=== PATIENT | male | born 1955 | race Caucasian/White ===

== ENCOUNTER 2022-12-13 18:25 | Outpatient (RCR) | payer MEDICARE, SELFPAY | END 2023-01-06 23:59 | disposition home or self-care (01) | LOC: MM 18:25 | PROVIDERS: PCP Internal Medicine; Visit Provider Internal Medicine | DX: Z51.81 Encounter for therapeutic drug level monitoring (principal); Z79.01 Long term (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 | CPT/HCPCS: 85610; G0463 ==

== ENCOUNTER 2022-12-27 07:42 | Day surgery (SDC) | payer MEDICARE, SELFPAY ==
[2022-12-27 08:08] LABS: INR 2.3; Prothrombin Time 23.3 sec (9.0-11.6)
--- NOTE | 2022-12-27 08:35 | W.PM.PROCNOT ---
Date of procedure: 12/27/22 Procedure: Bilateral Cervical 4,5 & 5,6 medial branch block Preop diagnosis includes pain secondary to cervical spondylosis, Postop diagnosis same Under fluoroscopic guidance Solution injected: 2milliliters Marcaine 0.25% Anesthesia :none Immediate complications none Time out process compliant After informed consent obtained from the patient placed in the Prone proposition . area was prepped and draped in a sterile fashion using betadine .25 gauge spinal needle inserted over each of the above mentioned target areas . [place] were directed towards the target under fluoroscopic guidance . after encountering each of the targets , no indication of intravascular intraneuronal or intrathecal needle tip placement. Then 0 .5 to 1 Milliliter was injected at each level. [place] removed postoperatively. patient transferred to recovery in stable condition to be discharged home after meeting criteria Surgeon: Benedict Marie
[2022-12-27 08:39] VITALS: BP 139/83; PULSE 67; RESP 16; TEMP 36.6
[2022-12-27 09:41] VITALS: RESP 20
[2022-12-27 09:42] VITALS: BP 152/82; PULSE 62; O2SAT 98
[2022-12-27] MEDS: BUPIVACAINE HCL 0.25% PF 25 MG/10 ML VIAL 8 ML INJ (09:44)
[2022-12-27 09:47] VITALS: BP 147/82; PULSE 60; O2SAT 99
== END 2022-12-27 09:55 | disposition home or self-care (01) ==
LOC: SURGOUT 07:43
PROVIDERS: PCP Internal Medicine; Visit Provider Anesthesiology Pain Medicine
DX: M47.812 Spondylosis without myelopathy or radiculopathy, cervical region (principal); I48.91 Unspecified atrial fibrillation
CPT/HCPCS: 36415; 64490; 64491; 85610; G0463

== ENCOUNTER 2023-01-12 09:32 | Outpatient (RCR) | payer MEDICARE, SELFPAY | END 2023-02-06 17:05 | disposition home or self-care (01) | LOC: MM 09:32 | PROVIDERS: PCP Internal Medicine; Visit Provider Internal Medicine | DX: Z51.81 Encounter for therapeutic drug level monitoring (principal); Z79.01 Long term (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 | CPT/HCPCS: 85610; G0463 ==

== ENCOUNTER 2023-01-19 08:46 | Outpatient (OUT) | payer MEDICARE, SELFPAY ==
--- NOTE | 2023-01-19 09:09 | PM.CN ---
Consult Note: HPI Data of Consult Patient: known to practice within the last 3 years Consult date: 01/19/23 Requesting Physician: JEET HERNÁNDEZ NP Primary Care Provider: Shaikh Cristopher MD Consult Narrative Narrative: Here for f/u of first cervical MBB done 12/09/22. He had 80% relief of pain with increased fx for several hours after procedure. He would like to proceed with second MBB same region. No new sensorimotor or bowel or bladder issues. No adverse med SE. Pain in n yr with all ROM. No radicular sx cc:: CC: JEET HERNÁNDEZ NP Review of Systems ROS Status of ROS 10 or more systems reviewed and unremarkable except as noted in history and below Musculoskeletal Reports: neck pain PFSH PFSH Medical History Surgical History Meds Home Medications and Allergies Home Medications Medication Instructions Recorded Confirmed Type atorvastatin 20 mg tablet 20 mg PO QDAY 12/22/22 12/27/22 History baclofen 10 mg tablet 10 mg PO .hs 12/22/22 12/27/22 History calcium carbonate 600 mg calcium 300 mg PO DAILY 12/22/22 12/27/22 History (1,500 mg) tablet flecainide 100 mg tablet 100 mg PO Q12H 12/22/22 12/27/22 History gabapentin 100 mg capsule 200 mg PO .hs 12/22/22 12/27/22 History hydrochlorothiazide 25 mg tablet 25 mg PO QDAY 12/22/22 12/27/22 History lisinopril 40 mg tablet 40 mg PO QDAY 12/22/22 12/27/22 History loratadine 10 mg tablet 10 mg PO DAILY 12/22/22 12/27/22 History metoprolol succinate 100 mg 100 mg PO QDAY 12/22/22 12/27/22 History tablet,extended release 24 hr multivitamin 1 tab PO DAILY 12/22/22 12/27/22 History olopatadine 0.1 % eye drops drp ophthalmic (eye) BID 12/22/22 History potassium chloride 20 mEq 20 meq PO BID 12/22/22 12/27/22 History tablet,extended release(part/cryst) (Klor-Con M) vitamin B complex (B 1 tab PO DAILY 12/22/22 12/27/22 History Complex-Vitamin B12 tablet) warfarin 5 mg tablet 5 mg PO QDAY 12/22/22 12/27/22 History Allergies Allergy/AdvReac Type Severity Reaction Status Date / Time No Known Drug Allergies Allergy Verified 12/27/22 08:33 Exam Constitutional Documenting provider has reviewed patient's vital signs: yes Common normals: no apparent distress, oriented x3, healthy appearing, alert and well nourished General appearance: cooperative, comfortable and well developed Orientation/consciousness: Yes awake, Yes oriented to person, Yes oriented to place and Yes oriented to time HENMT Common normals: normocephalic and moist oral mucous membranes Neck & C-Spine General: normal visual inspection, trachea midline and tenderness Cervical spine: pain with cervical ROM, paracervical muscle tenderness, paracervical muscle spasm and trapezius muscle tenderness Other: bilat UE muscle strength 5/5. No arm drift. no radiculopathy Respiratory Common normals: normal respiratory effort, no retractions and no use of accessory muscles Effort & inspection: able to speak in complete sentences and symmetric chest movement Extremity Common normals: normal to inspection, full ROM, normal capillary refill and no pedal edema Assessment and Plan Assessment and Plan (1) Cervical spondylosis: (2) Muscle spasm: Plan Schedule for second cervical MBB bilat C4/5, C5/6 under fluoroscopy
== END 2023-01-19 08:47 | disposition home or self-care (01) ==
LOC: PM 08:47
PROVIDERS: PCP Internal Medicine; Visit Provider Nurse Practitioner
DX: M47.812 Spondylosis without myelopathy or radiculopathy, cervical region (principal); M62.838 Other muscle spasm
CPT/HCPCS: G0463

== ENCOUNTER 2023-02-16 06:32 | Day surgery (SDC) | payer MEDICARE, SELFPAY ==
[2023-02-16 06:53] LABS: INR 1.72; Prothrombin Time 17.7 sec (9.0-11.6)
[2023-02-16 06:57] VITALS: BP 125/78; PULSE 72; RESP 16; TEMP 36.9; O2SAT 96
[2023-02-16 07:26] VITALS: BP 133/76; PULSE 69; RESP 20; O2SAT 96
[2023-02-16] MEDS: BUPIVACAINE HCL 0.25% PF 25 MG/10 ML VIAL 8 ML INJ (07:27)
[2023-02-16 07:30] VITALS: BP 139/71; PULSE 70; O2SAT 97
--- NOTE | 2023-02-16 11:03 | P.ON_ITS ---
Date of procedure: 02/16/23 Pre-op diagnosis: cervical spondylosis Post-op diagnosis: same as pre-op Procedure: Bilateral cervical 4/5 and 5/6 medial branch block Under fluoroscopic guidance Solution injected: 2millilitersMarcaine 0.25% Anesthesia :none Immediate complications none Time out process compliant After informed consent obtained from the patient placed in the Prone proposition . area was prepped and draped in a sterile fashion using Cloraprep .25 gauge spinal needle inserted over each of the above mentioned target areas . [place] were directed towards the target under fluoroscopic guidance . after encountering each of the targets , no indication of intravascular intraneuronal or intrathecal needle tip placement. Then 0 .5 to 1 Milliliter was injected at each level. [place] removed postoperatively. patient transferred to recovery in stable condition to be discharged home after meeting criteria Anesthesia: Local Surgeon: Benedict Marie Condition: stable
== END 2023-02-16 07:36 | disposition home or self-care (01) ==
PROVIDERS: PCP Family Medicine; Visit Provider Anesthesiology Pain Medicine
DX: M47.812 Spondylosis without myelopathy or radiculopathy, cervical region (principal); I48.91 Unspecified atrial fibrillation
CPT/HCPCS: 36415; 64490; 64491; 85610

== ENCOUNTER 2023-03-02 08:03 | Outpatient (OUT) | payer MEDICARE, SELFPAY ==
--- NOTE | 2023-03-02 08:05 | PM.CN ---
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 Today rating pain 6/10. Patient received 100% pain relief, improvement in ROM, improvement in functional ability immediately after procedure and for hours following. Patient would like to proceed with thermal RFA. cc:: CC: JEET HERNÁNDEZ NP [facility] Medical History Surgical History Meds Home Medications and Allergies Home Medications Medication Instructions Recorded Confirmed Type atorvastatin 20 mg tablet 20 mg PO QDAY 12/22/22 02/16/23 History baclofen 10 mg tablet 10 mg PO .hs 12/22/22 02/16/23 History calcium carbonate 600 mg calcium 300 mg PO DAILY 12/22/22 02/16/23 History (1,500 mg) tablet flecainide 100 mg tablet 100 mg PO Q12H 12/22/22 02/16/23 History gabapentin 100 mg capsule 200 mg PO .hs 12/22/22 02/16/23 History hydrochlorothiazide 25 mg tablet 25 mg PO QDAY 12/22/22 02/16/23 History lisinopril 40 mg tablet 40 mg PO QDAY 12/22/22 02/16/23 History loratadine 10 mg tablet 10 mg PO DAILY 12/22/22 02/16/23 History metoprolol succinate 100 mg 100 mg PO QDAY 12/22/22 02/16/23 History tablet,extended release 24 hr multivitamin 1 tab PO DAILY 12/22/22 02/16/23 History olopatadine 0.1 % eye drops drp ophthalmic (eye) BID 12/22/22 History potassium chloride 20 mEq 20 meq PO BID 12/22/22 02/16/23 History tablet,extended release(part/cryst) (Klor-Con M) vitamin B complex (B 1 tab PO DAILY 12/22/22 02/16/23 History Complex-Vitamin B12 tablet) warfarin 5 mg tablet 5 mg PO QDAY 12/22/22 02/16/23 History baclofen 10 mg tablet 10 mg PO DAILY PRN muscle spasm 02/10/23 02/16/23 Rx #90 tabs gabapentin 300 mg capsule 300 mg PO BID #180 caps 02/10/23 02/16/23 Rx Allergies Allergy/AdvReac Type Severity Reaction Status Date / Time No Known Drug Allergies Allergy Verified 12/27/22 08:33 Exam Constitutional Documenting provider has reviewed patient's vital signs: yes Common normals: no apparent distress, oriented x3, healthy appearing, alert and well nourished General appearance: cooperative HENMT Common normals: normocephalic, hearing grossly normal bilaterally and moist oral mucous membranes Head and scalp: normocephalic Eye Common normals: PERRL Pupil: PERRL Neck & C-Spine Common normals: full ROM General: normal visual inspection Cervical spine: cervical ROM abnormal, pain with cervical ROM and paracervical muscle tenderness Chest Common normals: inspection of chest normal Respiratory Common normals: normal respiratory effort, no retractions and no use of accessory muscles Back & Pelvis Lumbar spine/lower back: ROM limited and pain with ROM Extremity Common normals: normal to inspection and full ROM Neuro Common normals: oriented x3, CN's II-XII intact bilaterally, moves all extremities, no focal motor deficits, no sensory deficits noted and deep tendon reflexes 2+ bilaterally Sensorium/orientation: alert Motor exam: strength 5/5 throughout and no movement abnormalities noted Psych Common normals: mental status grossly normal, thought process normal, cooperative, affect normal, speech normal and activity/motor behavior normal Speech: normal speech Thought process: normal thought process Results Additional Findings Additional findings: I have checked an OARRS report on this patient today and there are no aberrancies noted in the prescribing history.?? A drug screen was completed and reviewed within the last year, and if there has not been a drug screen completed we ordered one today to monitor higher risk, state monitored pain medication use. As part of providing excellent, safe, comprehensive care, the following was completed at our patient's visit: 1. A medication reconciliation and review to ensure accurate knowledge of current/active medications, including asking our patients to inform us about any [id number]-[id number] medications or herbal remedies/nutritional supplements/alternative remedies. 2. A review to specifically ensure our patients have had annual screening for: elevated body mass index (BMI), tobacco use, screening for depression, and screening for unhealthy alcohol use. When screening is concerning, patients are provided with education and the specific recommendation to discuss the concerning health issue and treatment options with their primary care provider. Assessment and Plan Assessment and Plan (1) Cervical spondylosis: Assessment and Plan: The patient has had over 3 months of moderate to severe neck pain with functional impairment and inadequate response to conservative care including NSAIDS (unless there are contraindication such as concurrent blood thinners), multiple oral or topical pain medications, and home exercise program/physical therapy.?Patient has completed >6 weeks of guided home exercise program and/or formal physical therapy program without relief of their symptoms.?We discussed the risks and benefits of the procedure with the patient. The procedure will be completed with fluoroscopic guidance.? (2) Muscle spasm: (3) Hx of alf use of blood thinners: Assessment and Plan: will plan on hold coumadin with approval from cardiology (4) Neuropathy: Assessment and Plan: The patient was advised that U.S. Food and Drug Administration (FDA) is warning that respiratory depression may occur in patients using gabapentin (Neurontin, Gralise, Horizant) or pregabalin (Lyrica, Lyrica CR) who have respiratory risk factors. These include the use of opioid pain medicines and other drugs that depress the central nervous system, and conditions such as chronic obstructive pulmonary disease (COPD) that reduce lung function. The elderly are also at higher risk.? patient has been on gabapentin 300mg BID, feels his neuropathy is still persistent increase to 600mg HS, continue 300mg AM (5) Lumbar spondylosis: Assessment and Plan: consider L4/5 L5/S1 facet blocks RFA in future (6) Body mass index (BMI) of 40.1 to 44.9 in adult: Assessment and Plan: The patient was counseled that proper dietary changes and consistent participation in a home exercise plan can lead to weight loss. Weight loss can help to improve functionality in patients with chronic pain.? Plan Left then right C4/5 C5/6 thermal RFA under fluoroscopy with IV sedation f/u after procedure
== END 2023-03-02 08:04 ==
PROVIDERS: PCP Family Medicine; Visit Provider Nurse Practitioner
DX: M47.812 Spondylosis without myelopathy or radiculopathy, cervical region (principal); M62.838 Other muscle spasm; G62.9 Polyneuropathy, unspecified; Z79.01 Long term (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
CPT/HCPCS: G0463

== ENCOUNTER 2023-03-07 09:42 | Outpatient (RCR) | payer MEDICARE, SELFPAY | END 2023-03-09 17:39 | disposition home or self-care (01) | LOC: MM 09:42 | PROVIDERS: PCP Internal Medicine; Visit Provider Internal Medicine | DX: Z51.81 Encounter for therapeutic drug level monitoring (principal); Z79.01 Long term (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 | CPT/HCPCS: 85610; G0463 ==

== ENCOUNTER 2023-03-10 10:31 | Outpatient (RCR) | payer MEDICARE, SELFPAY | END 2023-04-07 16:58 | disposition home or self-care (01) | LOC: MM 10:31 | PROVIDERS: PCP Family Medicine; Visit Provider Internal Medicine | DX: Z51.81 Encounter for therapeutic drug level monitoring (principal); Z79.01 Long term (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 | CPT/HCPCS: 85610; G0463 ==

== ENCOUNTER 2023-03-21 07:32 | Outpatient (OUT) | payer MEDICARE, SELFPAY ==
--- NOTE | 2023-03-21 | ECG_ITS ---
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
== END 2023-03-21 07:33 | disposition home or self-care (01) ==
LOC: CARD 07:32
PROVIDERS: PCP Family Medicine; Visit Provider Anesthesiology
DX: Z01.810 Encounter for preprocedural cardiovascular examination (principal); I10 Essential (primary) hypertension
CPT/HCPCS: 93005

== ENCOUNTER 2023-03-28 07:49 | Day surgery (SDC) | payer MEDICARE, SELFPAY ==
[2023-03-28 08:15] LABS: INR 1.09; Prothrombin Time 11.5 sec (9.0-11.6)
[2023-03-28 08:18] VITALS: BP 124/75; PULSE 71; RESP 16; TEMP 36.9; O2SAT 97
[2023-03-28] MEDS: 0.9 % SODIUM CHLORIDE 500 ML 50 ML IV (08:34)
[2023-03-28] MEDS: BUPIVACAINE HCL 0.25% PF 25 MG/10 ML VIAL 4 ML INJ (09:21)
[2023-03-28] MEDS: METHYLPREDNISOLONE ACETATE 40 MG/ML VIAL INJ (09:21)
[2023-03-28] MEDS: LIDOCAINE HCL 2% 400 MG/20 ML MDV 8 ML INJ (09:21)
[2023-03-28 09:37] VITALS: BP 114/59; PULSE 61; RESP 16; TEMP 36.7; O2SAT 96
[2023-03-28 09:38] VITALS: BP 113/58; PULSE 60; RESP 16; TEMP 36.7; O2SAT 97
--- NOTE | 2023-03-28 10:04 | W.PM.PROCNOT ---
Date of procedure: 03/28/23 Pre-op diagnosis: Cervical Spondylosis Post-op diagnosis: same as pre-op Procedure: Left Cervical 4/5, 5/6 Radiofrequency ablation Under fluoroscopic guidance Rhizotomy was created using radio frequency ablation at 80?C for 90 seconds 1 to 2 lesions created at each site. Post lesioning injection of 2 mL each of 0.25% Marcaine and 2% lidocaine with Depo-Medrol 40mg. 0.5 to 1 mL injected at each site IV in place yes If Intravenous fluids: NS at KVO Anesthesia local 2% lidocaine for Anesthesia Other: MAC Timeout process compliant After informed consent obtained.Patient brought to the procedure room placed in the prone position skin overlying the area was prepped and draped in a sterile fashion using betadine. 25 gauge needle was used to create a skin wheal over each of the targeted areas utilizing 2% lidocaine. A rhizotomy needle with a 10 mm active tip was inserted over each of the anesthetized areas and directed towards each of the medial branches accomplished under fluoroscopic guidance. after encountering the same we had positive sensory stimulation, negative motor stimulation was noted. lesions were then created. Post lesioning, steroid solution was injected needles removed. Patient was transferred to recovery room in stable condition to be discharged home after meeting criteria. Anesthesia: MAC Surgeon: Benedict Marie Condition: stable
== END 2023-03-28 10:02 | disposition home or self-care (01) ==
PROVIDERS: PCP Family Medicine; Visit Provider Anesthesiology Pain Medicine
DX: M47.812 Spondylosis without myelopathy or radiculopathy, cervical region (principal); I48.91 Unspecified atrial fibrillation
CPT/HCPCS: 36415; 64633; 64634; 85610; J1030; J2704

== ENCOUNTER 2023-04-10 02:50 | Outpatient (RCR) | payer MEDICARE, SELFPAY | END 2023-05-09 17:44 | disposition home or self-care (01) | LOC: MM 02:50 | PROVIDERS: PCP Family Medicine; Visit Provider Internal Medicine | DX: Z51.81 Encounter for therapeutic drug level monitoring (principal); Z79.01 Long term (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 | CPT/HCPCS: 85610; G0463 ==

== ENCOUNTER 2023-04-25 06:41 | Day surgery (SDC) | payer MEDICARE, SELFPAY ==
[2023-04-25 07:04] VITALS: BP 118/78; PULSE 64; RESP 16; TEMP 36.8; O2SAT 97
[2023-04-25] MEDS: 0.9 % SODIUM CHLORIDE 500 ML IV ×2 (07:18→08:45)
[2023-04-25 07:51] LABS: INR 1.15; Prothrombin Time 12.1 sec (9.0-11.6)
[2023-04-25] MEDS: BUPIVACAINE HCL 0.25% PF 25 MG/10 ML VIAL 4 ML INJ (08:45)
[2023-04-25] MEDS: METHYLPREDNISOLONE ACETATE 40 MG/ML VIAL INJ (08:47)
[2023-04-25] MEDS: LIDOCAINE HCL 2% 400 MG/20 ML MDV 10 ML INJ (08:47)
[2023-04-25 09:01] VITALS: BP 132/87; PULSE 55; RESP 16; TEMP 37.3; O2SAT 97
[2023-04-25 09:07] VITALS: BP 132/82; PULSE 60; RESP 16; TEMP 37.3; O2SAT 97
--- NOTE | 2023-04-25 09:15 | W.PM.PROCNOT ---
Date of procedure: 04/25/23 Pre-op diagnosis: CERVICAL SPONDYLOSIS Post-op diagnosis: same as pre-op Procedure: Right Cervical 4/5, 5/6 Radiofrequency ablation Under fluoroscopic guidance Rhizotomy was created using radio frequency ablation at 80?C for 90 seconds 1 to 2 lesions created at each site. Post lesioning injection of 2 mL each of 0.25% Marcaine and 2% lidocaine with Depo-Medrol 40mg. 0.5 to 1 mL injected at each site IV in place yes If Intravenous fluids: NS at KVO Anesthesia local 2% lidocaine for Anesthesia Other: MAC Timeout process compliant After informed consent obtained.Patient brought to the procedure room placed in the prone position skin overlying the area was prepped and draped in a sterile fashion using betadine. 25 gauge needle was used to create a skin wheal over each of the targeted areas utilizing 2% lidocaine. A rhizotomy needle with a 10 mm active tip was inserted over each of the anesthetized areas and directed towards each of the medial branches accomplished under fluoroscopic guidance. after encountering the same we had positive sensory stimulation, negative motor stimulation was noted. lesions were then created. Post lesioning, steroid solution was injected needles removed. Patient was transferred to recovery room in stable condition to be discharged home after meeting criteria. Anesthesia: MAC Surgeon: Benedict Marie Condition: stable
== END 2023-04-25 09:21 | disposition home or self-care (01) ==
PROVIDERS: PCP Family Medicine; Visit Provider Anesthesiology Pain Medicine
DX: M47.812 Spondylosis without myelopathy or radiculopathy, cervical region (principal); Z79.01 Long term (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
CPT/HCPCS: 36415; 64633; 64634; 85610; J1030; J2704

== ENCOUNTER 2023-05-10 00:44 | Outpatient (RCR) | payer MEDICARE, SELFPAY | END 2023-06-08 16:51 | disposition home or self-care (01) | LOC: MM 00:44 | PROVIDERS: PCP Family Medicine; Visit Provider Internal Medicine | DX: Z51.81 Encounter for therapeutic drug level monitoring (principal); Z79.01 Long term (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 | CPT/HCPCS: 85610; G0463 ==

== ENCOUNTER 2023-05-24 07:58 | Outpatient (OUT) | payer MEDICARE, SELFPAY ==
--- NOTE | 2023-05-24 08:22 | PM.CN ---
Consult Note: HPI Data of Consult Patient: known to practice within the last 3 years Requesting Physician: Trista Lyman NP Primary Care Provider: Rocio Bagley MD Consult Narrative Reason for consult: f/u Narrative: Evangelist Ybarra presents for evaluation and management of chronic neck pain. Recently underwent left and right C4-5 C5-6 thermal RFA with 75% ongoing pain relief, does feel a numbness on the skin over the RFA sites which is decreasing in size per pt. Today rating pain 2/10. Patient denies new numbness, tingling, weakness cc:: CC: Trista Lyman NP Review of Systems ROS Status of ROS 10 or more systems reviewed and unremarkable except as noted in history and below Musculoskeletal Reports: neck pain PFSH PFSH Medical History Atrial fibrillation ?I48.91 - Unspecified atrial fibrillation (ICD-10) Colon cancer ?C18.9 - Malignant neoplasm of colon, unspecified (ICD-10) Enlarged prostate ?N40.0 - Benign prostatic hyperplasia without lower urinary tract symptoms (ICD-10) High cholesterol ?E78.00 - Pure hypercholesterolemia, unspecified (ICD-10) Hypertension ?I10 - Essential (primary) hypertension (ICD-10) Kidney stone ?N20.0 - Calculus of kidney (ICD-10) Low back pain ?M54.50 - Low back pain, unspecified (ICD-10) Obesity ?E66.9 - Obesity, unspecified (ICD-10) Osteoarthritis ?M19.90 - Unspecified osteoarthritis, unspecified site (ICD-10) Pulmonary embolism ?I26.99 - Other pulmonary embolism without acute cor pulmonale (ICD-10) Sleep apnea ?G47.30 - Sleep apnea, unspecified (ICD-10) Surgical History History of colon resection ?Z90.49 - Acquired absence of other specified parts of digestive tract (ICD-10) S/P TURP ?Z90.79 - Acquired absence of other genital organ(s) (ICD-10) Meds Home Medications and Allergies Home Medications Medication Instructions Recorded Confirmed Type atorvastatin 20 mg tablet 20 mg PO QDAY 12/22/22 04/25/23 History baclofen 10 mg tablet 10 mg PO .hs 12/22/22 04/25/23 History calcium carbonate 600 mg calcium 300 mg PO DAILY 12/22/22 04/25/23 History (1,500 mg) tablet flecainide 100 mg tablet 100 mg PO Q12H 12/22/22 04/25/23 History gabapentin 100 mg capsule 200 mg PO .hs 12/22/22 04/25/23 History hydrochlorothiazide 25 mg tablet 25 mg PO QDAY 12/22/22 04/25/23 History lisinopril 40 mg tablet 40 mg PO QDAY 12/22/22 04/25/23 History loratadine 10 mg tablet 10 mg PO DAILY 12/22/22 04/25/23 History metoprolol succinate 100 mg 100 mg PO QDAY 12/22/22 04/25/23 History tablet,extended release 24 hr multivitamin 1 tab PO DAILY 12/22/22 04/25/23 History olopatadine 0.1 % eye drops drp ophthalmic (eye) BID 12/22/22 History potassium chloride 20 mEq 20 meq PO BID 12/22/22 04/25/23 History tablet,extended release(part/cryst) (Klor-Con M) vitamin B complex (B 1 tab PO DAILY 12/22/22 04/25/23 History Complex-Vitamin B12 tablet) warfarin 5 mg tablet 5 mg PO QDAY 12/22/22 04/25/23 History baclofen 10 mg tablet 10 mg PO DAILY PRN muscle spasm 02/10/23 04/25/23 Rx #90 tabs gabapentin 300 mg capsule 300 mg PO BID #180 caps 02/10/23 04/25/23 Rx baclofen 10 mg tablet 10 mg PO .HS #90 tabs 03/03/23 04/25/23 Rx gabapentin 300 mg capsule 300 mg PO BID #270 caps 03/08/23 04/25/23 Rx baclofen 10 mg tablet 10 mg PO .hs #90 tabs 04/28/23 Rx Allergies Allergy/AdvReac Type Severity Reaction Status Date / Time No Known Drug Allergies Allergy Verified 04/25/23 06:59 Exam Constitutional Documenting provider has reviewed patient's vital signs: yes Common normals: no apparent distress, oriented x3, healthy appearing, alert and well nourished General appearance: cooperative HENMT Common normals: normocephalic, hearing grossly normal bilaterally and moist oral mucous membranes Head and scalp: normocephalic Eye Common normals: PERRL Pupil: PERRL Neck & C-Spine Common normals: full ROM General: normal visual inspection Cervical spine: cervical ROM abnormal and paracervical muscle tenderness Chest Common normals: inspection of chest normal Respiratory Common normals: normal respiratory effort, no retractions and no use of accessory muscles Back & Pelvis Lumbar spine/lower back: ROM limited and pain with ROM Extremity Common normals: normal to inspection and full ROM Neuro Common normals: oriented x3, CN's II-XII intact bilaterally, moves all extremities, no focal motor deficits, no sensory deficits noted and deep tendon reflexes 2+ bilaterally Sensorium/orientation: alert Motor exam: strength 5/5 throughout and no movement abnormalities noted Psych Common normals: mental status grossly normal, thought process normal, cooperative, affect normal, speech normal and activity/motor behavior normal Speech: normal speech Thought process: normal thought process Results Additional Findings Additional findings: I have checked an OARRS report on this patient today and there are no aberrancies noted in the prescribing history.?? A drug screen was completed and reviewed within the last year, and if there has not been a drug screen completed we ordered one today to monitor higher risk, state monitored pain medication use. As part of providing excellent, safe, comprehensive care, the following was completed at our patient's visit: 1. A medication reconciliation and review to ensure accurate knowledge of current/active medications, including asking our patients to inform us about any [id number] medications or herbal remedies/nutritional supplements/alternative remedies. 2. A review to specifically ensure our patients have had annual screening for: elevated body mass index (BMI), tobacco use, screening for depression, and screening for unhealthy alcohol use. When screening is concerning, patients are provided with education and the specific recommendation to discuss the concerning health issue and treatment options with their primary care provider. 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
== END 2023-05-24 07:59 | disposition home or self-care (01) ==
LOC: PM 07:58
PROVIDERS: PCP Family Medicine; Visit Provider Nurse Practitioner
DX: M47.812 Spondylosis without myelopathy or radiculopathy, cervical region (principal); M62.838 Other muscle spasm; Z79.899 Other long term (current) drug therapy
CPT/HCPCS: G0463

== ENCOUNTER 2023-06-09 09:32 | Outpatient (RCR) | payer MEDICARE, SELFPAY | END 2023-07-07 15:19 | disposition home or self-care (01) | LOC: MM 09:32 | PROVIDERS: PCP Family Medicine; Visit Provider Internal Medicine | DX: Z51.81 Encounter for therapeutic drug level monitoring (principal); Z79.01 Long term (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 | CPT/HCPCS: 85610; G0463 ==

== ENCOUNTER 2023-06-22 07:49 | Outpatient (OUT) | payer MEDICARE, SELFPAY ==
--- NOTE | 2023-06-22 08:18 | P.CN_ITS ---
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 Patient has noticed more improvement after cervical RFA. Patient has been getting massages and finding benefit with that. cc:: CC: Trista Lyman NP Review of Systems ROS Status of ROS 10 or more systems reviewed and unremark able except as noted in history and below PFSH PFS Medical History Atrial fibrillation ?I48.91 - Unspecified atrial fibrillation (ICD-10) Low back pain ?M54.50 - Low back pain, unspecified (ICD-10) Osteoarthritis ?M19.90 - Unspecified osteoarthritis, unspecified site (ICD-10) Colon cancer ?C18.9 - Malignant neoplasm of colon, unspecified (ICD-10) Obesity ?E66.9 - Obesity, unspecified (ICD-10) Kidney stone ?N20.0 - Calculus of kidney (ICD-10) Enlarged prostate ?N40.0 - Benign prostatic hyperplasia without lower urinary tract symptoms (ICD-10) Pulmonary embolism ?I26.99 - Other pulmonary embolism without acute cor pulmonale (ICD-10) Sleep apnea ?G47.30 - Sleep apnea, unspecified (ICD-10) High cholesterol ?E78.00 - Pure hypercholesterolemia, unspecified (ICD-10) Hypertension ?I10 - Essential (primary) hypertension (ICD-10) Surgical History S/P TURP ?Z90.79 - Acquired absence of other genital organ(s) (ICD-10) History of colon resection ?Z90.49 - Acquired absence of other specified parts of digestive tract (ICD- 10) Meds Home Medications and Allergies Home Medications Medication Instructions Recorded Confirmed Type atorvastatin 20 mg tablet 20 mg PO QDAY 12/22/22 04/25/23 History baclofen 10 mg tablet 10 mg PO .hs 12/22/22 04/25/23 History calcium carbonate 600 mg calcium 300 mg PO DAILY 12/22/22 04/25/23 History (1,500 mg) tablet flecainide 100 mg tablet 100 mg PO Q12H 12/22/22 04/25/23 History gabapentin 100 mg capsule 200 mg PO .hs 12/22/22 04/25/23 History hydrochlorothiazide 25 mg tablet 25 mg PO QDAY 12/22/22 04/25/23 History lisinopril 40 mg tablet 40 mg PO QDAY 12/22/22 04/25/23 History loratadine 10 mg tablet 10 mg PO DAILY 12/22/22 04/25/23 History metoprolol succinate 100 mg 100 mg PO QDAY 12/22/22 04/25/23 History tablet,extended release 24 hr multivitamin 1 tab PO DAILY 12/22/22 04/25/23 History olopatadine 0.1 % eye drops drp ophthalmic (eye) BID 12/22/22 History potassium chloride 20 mEq 20 meq PO BID 12/22/22 04/25/23 History tablet,extended release(part/cryst) (Klor-Con M) vitamin B complex (B 1 tab PO DAILY 12/22/22 04/25/23 History Complex-Vitamin B12 tablet) warfarin 5 mg tablet 5 mg PO QDAY 12/22/22 04/25/23 History baclofen 10 mg tablet 10 mg PO DAILY PRN muscle spasm 02/10/23 04/25/23 Rx #90 tabs gabapentin 300 mg capsule 300 mg PO BID #180 caps 02/10/23 04/25/23 Rx baclofen 10 mg tablet 10 mg PO .HS #90 tabs 03/03/23 04/25/23 Rx gabapentin 300 mg capsule 300 mg PO BID #270 caps 03/08/23 04/25/23 Rx baclofen 10 mg tablet 10 mg PO .hs #90 tabs 04/28/23 Rx gabapentin 300 mg capsule 300 mg PO TID #360 caps 06/15/23 Rx gabapentin 300 mg capsule 300 mg PO TID #360 caps 06/19/23 Rx Allergies Allergy/AdvReac Type Severity Reaction Status Date / Time No Known Drug Allergies Allergy Verified 04/25/23 06:59 Exam Constitutional Documenting provider has reviewed patient's vital signs: yes Common normals: no apparent distress, oriented x3, healthy appearing, alert and well nourished General appearance: cooperative HENCA Common normals: normocephalic, hearing grossly normal bilaterally and moist oral mucous membranes Head and scalp: normocephalic Eye Common normals: PERRL Pupil: PERRL Neck & C-Spine Common normals: full ROM General: normal visual inspection Cervical spine: cervical ROM normal Chest Common normals: inspection of chest normal Respiratory Common normals: normal respiratory effort, no retractions and no use of accessory muscles Neuro Common normals: oriented x3, CN's II-XII intact bilaterally, moves all extremities, no focal motor deficits, no sensory deficits noted and deep tendon reflexes 2+ bilaterally Sensorium/orientation: alert Motor exam: strength 5/5 throughout and no movement abnormalities noted Psych Common normals: mental status grossly normal, thought process normal, cooperative, affect normal, speech normal and activity/motor behavior normal Speech: normal speech Thought process: normal thought process Results Additional Findings Additional findings: I have checked an [facility] report on this patient today and there are no aberrancies noted in the prescribing history.?? A drug screen was completed and reviewed within the last year, and if there has not been a drug screen completed we ordered one today to monitor higher risk, state monitored pain medication use. As part of providing excellent, safe, comprehensive care, the following was completed at our patient's visit: 1. A medication reconciliation and review to ensure accurate knowledge of current/active medications, including asking our patients to inform us about any [id number] medications or herbal remedies/nutritional supplements/alternative remedies. 2. A review to specifically ensure our patients have had annual screening for: elevated body mass index (BMI), tobacco use, screening for depression, and screening for unhealthy alcohol use. When screening is concerning, patients are provided with education and the specific recommendation to discuss the concerning health issue and treatment options with their primary care provider. 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 Food and Drug Administration (FDA) is warning that respiratory depression may occur in patients using gabapentin (Neurontin, Gralise, Horizant) or pregabalin (Lyrica, Lyrica CR) who have respiratory risk factors. These include the use of opioid pain medicines and other drugs that depress the central nervous system, and conditions such as chronic obstructive pulmonary disease (COPD) that reduce lung function. The elderly are also at higher risk.? Plan continue current medication regimen, tolerating well without side effects f/u 3 months for medication management
== END 2023-06-22 07:50 | disposition home or self-care (01) ==
PROVIDERS: PCP Family Medicine; Visit Provider Nurse Practitioner
DX: M47.812 Spondylosis without myelopathy or radiculopathy, cervical region (principal); M62.838 Other muscle spasm; Z79.01 Long term (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; G62.9 Polyneuropathy, unspecified
CPT/HCPCS: G0463

== ENCOUNTER 2023-07-10 02:00 | Outpatient (RCR) | payer MEDICARE, SELFPAY | END 2023-08-09 17:19 | disposition home or self-care (01) | LOC: MM 02:00 | PROVIDERS: PCP Family Medicine; Visit Provider Internal Medicine | DX: Z51.81 Encounter for therapeutic drug level monitoring (principal); Z79.01 Long term (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 | CPT/HCPCS: 85610; G0463 ==

== ENCOUNTER 2023-08-10 01:58 | Outpatient (RCR) | payer MEDICARE, SELFPAY | END 2023-09-07 17:31 | disposition home or self-care (01) | LOC: MM 01:58 | PROVIDERS: PCP Family Medicine; Visit Provider Internal Medicine | DX: Z51.81 Encounter for therapeutic drug level monitoring (principal); Z79.01 Long term (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 | CPT/HCPCS: 85610; G0463 ==

== ENCOUNTER 2023-09-08 03:37 | Outpatient (RCR) | payer MEDICARE, SELFPAY | END 2023-10-06 14:14 | disposition home or self-care (01) | LOC: MM 03:37 | PROVIDERS: PCP Family Medicine; Visit Provider Internal Medicine | DX: Z51.81 Encounter for therapeutic drug level monitoring (principal); Z79.01 Long term (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 | CPT/HCPCS: 85610; G0463 ==

== ENCOUNTER 2023-09-28 07:54 | Outpatient (OUT) | payer MEDICARE, SELFPAY ==
--- OUTSIDE RECORDS SUMMARY | 2023-09-28 07:57 | XMS_ITS | CCD ---
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 Coach Name Role Phone PHYSICIAN, DEFAULT Unavailable Unavailable PHYSICIAN, DEFAULT Unavailable Unavailable DONALD LIZARRAGA Unavailable Unavailable PHYSICIAN, DEFAULT Unavailable Unavailable PHYSICIAN, DEFAULT Unavailable Unavailable DONALD LIZARRAGA Unavailable Unavailable Devin Greer Unavailable Unavailable Donald Lizarraga Unavailable Unavaila ble DONALD LIZARRAGA Primary Care Physician [phone] Karbetsy DO, Emperatriz Unavailable Karim DO, Emperatriz Unavailable Donald Lizarraga Unavailable ALLEN Montano, DR JADEN Chahal Consulting Unavailable VILLA ., DR JADEN Chahal Admitting Unavailable VILLA ., DR JADEN Chahal Attending Unavailable ELHAM, DR DONALD Ruano Primary Care Unavailable CUEVAS .CHARAN Consulting Unavailable FAWWAD, WOMACK H Admitting Unavailable FAWWAD, WOMACK H Attending Unavailable ELHAM, DR DONALD Ruano Primary Care Unavailable ELHAM, DR DONALD Ruano Primary Care Unavailable FAWWAD, WOMACK H Attending Unavailable FAWWAD, WOMACK H Admitting Unavailable ELHAM, DR DONALD Ruano Primary Care Unavailable CUEVAS .CHARAN Consulting Unavailable ALLEN ., DR JADEN Chahal Admitting Unavailable VILLA ., DR JADEN Chahal Attending Unavailable LAKSHMIPATHY ., NARENDRANATH Admitting Rochelle vailable ELHAM, DR DONALD Ruano Primary Care Unavailable JEET KLEIN Consulting Unavailable LAKSHMIPATHY ., NARENDRANATH Attending Rochelle vailable ELHAM, DR DONALD Ruano Primary Care Unavailable FAWWAD, WOMACK H Attending Unavailable FAWWAD, WOMACK H Admitting Unavailable ELHAM, DR DONALD Ruano Primary Care Unavailable FAWWAD, WOMACK H Attending Unavailable FAWWAD, WOMACK H Admitting Unavailable ELHAM, DR DONALD Ruano Primary Care Unavailable VILLA ., DR JADEN Chahal Attending Unavailable VILLA ., DR JADEN Chahal Consulting Unavailable VILLA ., DR JADEN Chahal Admitting Unavailable LIZARRAGA, DR DONALD Ruano Primary Care Unavailable CUEVAS ., CHARAN Consulting Unavailable VILLA ., DR JADEN Chahal Attending Unavailable VILLA ., DR JADEN Chahal Admitting Unavailable FAWWAD, WOMACK H Attending Unavailable FAWWAD, WOMACK H Admitting Unavailable LIZARRAGA, DR DONALD Ruano Primary Care Unavailable FAWWAD, WOMACK H Attending Unavailable FAWWAD, WOMACK H Admitting Unavailable LIZARRAGA, DR DONALD Ruano Primary Care Unavailable LIZARRAGA, DR DONALD Ruano Primary Care Unavailable FAWWAD, WOMACK H Attending Unavailable FAWWAD, WOMACK H Admitting Unavailable LIZARRAGA, DR DONALD Ruano Primary Care Unavailable FAWWAD, WOMACK H Attending Unavailable FAWWAD, WOMACK H Admitting Unavailable FAWWAD, WOMACK H Attending Unavailable FAWWAD, WOMACK H Admitting Unavailable LIZARRAGA, DR DONALD Ruano Primary Care Unavailable LIZARRAGA, DR DONALD Ruano Primary Care Unavailable FAWWAD, WOMACK H Attending Unavailable FAWWAD, WOMACK H Admitting Unavailable VILLA ., DR JADEN Chahal Consulting Unavailable VILLA ., DR JADEN Chahal Admitting Unavailable VILLA ., DR JADEN Chahal Attending Unavailable LIZARRAGA, DR DONALD Ruano Primary Care Unavailable LIZARRAGA, DR DONALD Ruano Primary Care Unavailable LIZARRAGA, DR DONALD Ruano Consulting Unavailable VILLA ., DR JADEN Chahal Admitting Unavailable VILLA ., DR JADEN Chahal Attending Unavailable CUEVAS ., CHARAN Consulting Unavailable LIZARRAGA, DR DONALD Ruano Admitting Unavailable LIZARRAGA, DR DONALD Ruano Attending Unavailable LIZARRAGA, DR DONALD Ruano Consulting Unavailable LIZARRAGA, DR DONALD Ruano Primary Care Unavailable HALKER ., JEET Admitting Unavailable HALKER ., JEET Attending Unavailable GARDINER, DR UNA Sofia Consulting Unavailable LIZARRAGA, DR DONALD Ruano Primary Care Unavailable HALKER ., JEET Consulting Unavailable LIZARRAGA, DR DONALD Ruano Primary Care Unavailable STEPJAQUELINE, DR HANEY Consulting Unavailable STEPANIC, DR HANEY Admitting Unavailable STEPANIC, DR HANEY Attending Unavailable ZIEBER, DR RUPERT Bosch Consulting Unavailable LIZARRAGA, DR DONALD Ruano Primary Care Unavailable STEPANIC, DR HANEY Admitting Unavailable STEPANIC, DR HANEY Attending Unavailable LAKSHMIPATHY ., NARENDRANATH Admitting Rochelle vailable LAKSHMIPATHY ., NARENDRANATH Attending Rochelle vailable CUEVAS ., CHARAN Consulting Unavailable DR DONALD LIZARRAGA Primary Care Unavailable ELHAM, DR DONALD Ruano Primary Care Unavailable SHAIKH Gurwinder FARMER Attending Unavailable SHAIKH Gurwinder FARMER Admitting Unavailable Emperatriz Carnes DO Unavailable Elicia Mcmillan Attending Unavailable RADHA HERNANDEZ Attending Unavailab RADHA Maher Attending Unavailab Oxana Donald Referring Unavailable SALAM, Oxana Attending Unavailable SALAM, Daigle Admitting Unavailable TIANARADHA PARIS Admitting Unavailab le TIANA, RADHA Ruano Attending Unavailab le PROVIDER, UNKNOWN Attending Unavailable PROVIDER, UNKNOWN Admitting Unavailable FLOR PALACIOS Referring Unavailable Allergies Allergy Classification Reported Allergen(s) Allergy Type Date of Onset Reaction(s) Facility (13 sources) Other (Review Comments!); 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: [OTHER (REVIEW COMMENTS!)] Propensity to adverse reactions to drug 12-29-19 19 [facility] (6 sources) Decongestant Drug allergy Unknown Oxyntix Other (1 source) No Known Medication Allergies; 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: [No Known Medication Allergies] Propensity to adverse reactions (disorder) [facility] (3 sources) DECONGESTANTS Propensity to adverse reactions 05-03-20 13 Unknown Oxyntix Other (3 sources) Allergies Reconciled Propensity to adverse reactions Unknown Oxyntix Other (3 sources) patient allergy list reviewed by nurse or physicia Propensity to adverse reactions 11-23-19 17 Comment:Done Oxyntix Other Medications Current Medications Medication Drug Class(es) Dates Sig (Normalized) Sig (Original) atorvastatin 20 mg oral tablet (20 sources) HMG-CoA Reductase Inhibitor Start: 12-20-2017 atorvastatin (LIPITOR) 20 MG tablet azithromycin 250 mg oral tablet (2 sources) Macrolide Antimicrobial Start: 10-11-2022 Azithromycin 250 MG as directed Orally 2 tabs po today, then 1 tab daily x 4 more days for 5 Oct, Active baclofen 10 mg oral tablet (20 sources) gamma-Aminobutyric Acid-ergic Agonist Start: 11-13-2018 take 1 tablet by mouth at bedtime baclofen (LIORESAL) 10 MG tablet Indications: Preop cardiovascular exam , PAF (paroxysmal atrial fibrillation) (HCC) , Anticoagulated , JAVED on CPAP , Obesity, unspecified classification, unspecified obesity type, unspecified whether serious comorbidity present Take 10 mg by mouth at bedtime. 4 11/13/2018 Active take 1 tablet by mouth every twe lve hours Baclofen 10 MG 1 tablet as needed Orally Twice a day Active betamethasone 0.5 mg/ml / clotrimazole 10 mg/ml topical cream (3 sources) Azole Antifungal, Corticosteroid Start: 03-28-2023 Clotrimazole-Betamethasone 1-0.05 % 1 application Externally Twice a day, as needed for 30 days Mar, Active calcium carbonate 500 mg oral tablet (11 sources) Start: 04-02-2020 take 500 mg by mouth twice daily Os-Avery 500 500 mg, Oral, BID, Refills(s) 0, Prophylaxis Start Date: 04/02/20 Status: Ordered take 1 tablet by mouth once hamida y oscal 500 + D 500 mg / 125 IU 1 tablet orally once a day Active flecainide acetate 100 mg oral tablet (20 sources) Antiarrhythmic Start: 09-03-2020 End: 05-15-2023 take 1 tablet by mouth twice daily flecainide (TAMBOCOR) 100 MG tablet Indications: Persistent atrial fibrillation (HCC) Take 1 Tablet by mouth 2 times daily. 180 Tablet 3 02/14/2023 05/15/2023 Active Start: 12-20-2017 take 100 mg by mouth every twelve hours flecainide 100 mg, Oral, q12hr, Refills(s) 0, Other (see comment) Start Date: 12/20/17 Status: Ordered take 0.5 tablet by m outh every twelve hours Flecainide Acetate 100 MG 0.5 tablet Orally every 12 hrs Active gabapentin (10 sources) Anti-epileptic Agent Start: 07-29-2022 gabapenti n Refills(s) 0, Neuropathy Start Date: 07/29/22 Status: Ordered Start: 07-29-2022 gabapentin Ref ills(s) 0 Start Date: 07/29/22 Status: Ordered Gabapentin 300 M G 1 qam and 1 qpm and 2 qhs Orally 4 times a day Active take 1 capsule by mo uth every twenty-four hours Gabapentin 100 MG 1 capsule Orally Once a day Active hydroCHLOROthiazide 25 mg oral tablet (20 sources) Thiazide Diuretic Start: 11-19-2018 hydrochlorothiazide (HYDRODIURIL) 25 MG tablet Immodium A-D 2 mg Cap (2 sources) Start: 12-20-2017 take 1 tablet by mouth every four hours as needed Immodium A-D 2 mg Cap = 1 tab(s), Oral, q4hr, PRN for loose stools, Refills(s) 0 Start Date: 12/20/17 Status: Ordered lisinopril 40 mg oral tablet (20 sources) Angiotensin Converting Enzyme Inhibitor Start: 12-20-2017 lisinopril (PRINIVIL, ZESTRIL) 40 MG tablet loperamide hydrochloride 2 mg oral capsule (1 source) Opioid Agonist Start: 12-20-2017 take 1 tablet by mouth every four hours as needed Immodium A-D 2 mg Cap = 1 tab(s), Oral, q4hr, PRN for loose stools, Refills(s) 0 Start Date: 12/20/17 Status: Ordered loratadine 10 mg oral tablet (20 sources) Start: 12-20-2017 take 1 tablet by mouth once daily loratadine (CLARITIN) 10 MG tablet Indications: Preop cardiovascular exam , PAF (paroxysmal atrial fibrillation) (HCC) , Anticoagulated , JAVED on CPAP , Obesity, unspecified classification, unspecified obesity type, unspecified whether serious comorbidity present Take 10 mg by mouth daily. 3 10/27/2018 Active Loratadine Not-T aking magnesium sulfate 225 MG / potassium chloride 188 MG / sodium sulfate 1479 MG Oral Tablet [Sutab] (1 source) Start: 07-29-2022 take 1 tablet by mouth once Sutab oral tablet See Instructions, 1 EA, Refill(s) 0, KP, Please follow instructions per packaging and physician's handout, [facility]/pharmacy #[id number], 183.8, cm, 07/29/22 14:15:00 EST, Height/Length Dosing, 145.3, kg, 07/29/22 14:15:00 EST, Weight Dosing Start Date: 07/29/22 Status: Ordered methylPREDNISolone 4 mg oral tablet (2 sources) Corticosteroid Start: 04-04-2023 methylPREDNISolone 4 MG as directed Orally for 6 days Oct, Active 24 hr metoprolol succinate 100 mg extended release oral tablet (20 sources) beta-Adrenergic Yadiel Start: 11-19-2018 End: 02-17-2024 take 1 tablet by mouth once daily metoprolol (TOPROL-XL) 100 mg XL tablet Take 1 Tablet by mouth daily. 90 Tablet 3 02/17/2023 Active Start: 12-20-2017 take 1 tablet by ruma th once daily metoprolol tartrate 100 mg Tab 100 mg = 1 tab(s), Oral, Daily, Refills(s) 0, High blood pressure Start Date: 12/20/17 Status: Ordered Multivitamins and Minerals (3 sources) Start: 12-20-2017 Multivitamins and Minerals Oral, Daily, Refill(s) 0, Prophylaxis Start Date: 12/20/17 Status: Ordered olopatadine 7 mg/ml ophthalmic solution (20 sources) Histamine-1 Receptor Inhibitor Start: 07-29-2022 olopatadine 0.7% ophthalmic solution Refill(s) 0 Start Date: 07/29/22 Status: Ordered Olopatadine HCl 0.1 % INSTILL 1 DROP INTO AFFECTED EYE TWICE A DAY FOR 30 DAYS for 30 Active olopatadine (PAT ANOL) 0.1 % ophthalmic solution Indications: Preop cardiovascular exam , PAF (paroxysmal atrial fibrillation) ([facility]) , Anticoagulated , JAVED on CPAP , Obesity, unspecified classification, unspecified obesity type, unspecified whether serious comorbidity present olopatadine 0.1 % eye drops 0 Active Olopatadine HCl 0.1 % INSTILL 1 DROP INTO AFFECTED EYE TWICE A DAY FOR 30 DAYS for 30 Active microencapsulated potassium chloride 20 meq extended release oral tablet (20 sources) Start: 04-05-2023 End: 07-04-2023 Klor-Con M20 20 MEQ controll ed release tablet Indications: PAF (paroxysmal atrial fibrillation) (HCC) , Anticoagulated , Preop cardiovascular exam , JAVED on CPAP , Obesity, unspecified classification, unspecified obesity type, unspecified whether serious comorbidity present TAKE 1 TABLET TWICE A DAY 180 Tablet 3 04/05/2023 07/04/2023 Active Start: 09-03-2020 End: 05-30-2022 Klor-Con M20 20 MEQ controll ed release tablet Indications: PAF (paroxysmal atrial fibrillation) (HCC) , Anticoagulated , Preop cardiovascular exam , JAVED on CPAP , Obesity, unspecified classification, unspecified obesity type, unspecified whether serious comorbidity present TAKE 1 TABLET TWICE A DAY 180 Tablet 3 03/01/2022 Active Start: 12-20-2017 Klor-Con 40 mE q, Oral, BID, Refills(s) 0, Prophylaxis Start Date: 12/20/17 Status: Ordered take 1 tablet by ruma th every twenty-four hours Potassium Chloride Marya ER 20 MEQ 1 tablet with food Orally Once a day Active take 1 tablet by ruma th every twenty-four hours Klor-Con M20 20 MEQ 1 tablet with food Orally Once a day Active Potassium Chlori de 40 MEQ/15ML (20%) SOLN Indications: Preop cardiovascular exam , PAF (paroxysmal atrial fibrillation) (HCC) , Anticoagulated , JAVED on CPAP , Obesity, unspecified classification, unspecified obesity type, unspecified whether serious comorbidity present 15 mL. 0 Active sildenafil 25 mg oral tablet (4 sources) Phosphodiesterase 5 Inhibitor Start: 01-24-2023 sildenafil citrate (VIAGRA) 25 MG tablet Take 25 mg by mouth. 0 01/24/2023 Active Sodium Sulfate-Mag Sulfate-KCl (Sutab) 0835-498-469 MG TABS (2 sources) Start: 07-29-2022 Sodium Sulfate-Mag Sulfate-KCl (Sutab) 4751-694-947 MG TABS Take by mouth. 0 07/29/2022 Active Super B Complex (5 sources) Start: 04-02-2020 take 1 tablet by mouth once daily Super B Complex 1 tab(s), Oral, Daily, Refill(s) 0, Prophylaxis Start Date: 04/02/20 Status: Ordered tiZANidine 4 mg oral tablet (2 sources) Central alpha-2 Adrenergic Agonist take 1 tablet by mouth once daily at bedtime as needed tiZANidine HCl 4 MG 1 tablet as needed Orally qhs prn Active warfarin sodium 5 mg oral tablet (20 sources) Vitamin K Antagonist Start: 07-29-2022 warfarin Refills(s) 0, Blood Thinner Start Date: 07/29/22 Status: Ordered Start: 07-29-2022 warfarin Refil ls(s) 0 Start Date: 07/29/22 Status: Ordered Start: 09-03-2020 End: 02-17-2023 warfarin (COUMADIN) 5 MG tab let Indications: PAF (paroxysmal atrial fibrillation) (HCC) , Anticoagulated , Preop cardiovascular exam , JAVED on CPAP , Obesity, unspecified classification, unspecified obesity type, unspecified whether serious comorbidity present TAKE ONE TO ONE AND ONE-HALF TABLETS DAILY OR DIRECTED BY MEDICATION MANAGEMENT CL[facility]IC 120 Tablet 3 02/17/2023 Active Completed/Discontinued Medications Medication Drug Class(es) Dates Sig (Normalized) Sig (Original) acetaminophen 325 mg / HYDROcodone bitartrate 5 mg oral tablet (11 sources) Opioid Agonist End: 03-29-2023 hydrocodone-acetami nophen (NORCO) 5-325 MG per tablet Indications: Preop cardiovascular exam , PAF (paroxysmal atrial fibrillation) (HCC) , Anticoagulated , JAVED on CPAP , Obesity, unspecified classification, unspecified obesity type, unspecified whether serious comorbidity present hydrocodone 5 mg-acetaminophen 325 mg tablet 0 03/29/2023 Discontinued acetaminophen 325 mg / oxyCODONE hydrochloride 5 mg oral tablet (11 sources) Opioid Agonist End: 03-29-2023 oxyCODONE-acetamino phen (PERCOCET) 5-325 MG tablet Indications: Preop cardiovascular exam , PAF (paroxysmal atrial fibrillation) (HCC) , Anticoagulated , JAVED on CPAP , Obesity, unspecified classification, unspecified obesity type, unspecified whether serious comorbidity present oxycodone-acetamino phen 5 mg-325 mg tablet 0 03/29/2023 Discontinued amLODIPine (8 sources) Dihydropyridine Calcium Channel Yadiel amLODIPine Besylate Not-Taking/PRN AMLODIPINE BESYL ATE ORAL amLODIPine Besylate Not-Taking 0 Active amLODIPine Besyl ate Not-Taking amoxicillin 875 mg oral tablet (6 sources) Penicillin-class Antibacterial Start: 04-02-2016 take 1 tablet by mouth every twelve hours Amoxicillin 875 MG 1 tablet Orally Twice a day for 10 day(s) Mar, Not-Taking/PRN Ascorbic Acid (17 sources) Vitamin C Vitamin C Not-Taking/PRN End: 03-29-2023 take 1 tablet by mouth once daily Ascorbic Acid 1000 MG TABS Vitamin C 1,000 mg tablet Take 1 tablet every day by oral route. 0 03/29/2023 Discontinued Vitamin C Not-Ta jamie Aspir-81 (6 sources) Aspir-81 Not-David ing/PRN Aspir-81 Not-David ing carvedilol (6 sources) alpha-Adrenergic Yadiel, beta-Adrenergi c Yadiel Carvedilol Not-Takin g/PRN Carvedilol Not-T aking cholecalciferol 0.05 mg oral capsule (11 sources) Vitamin D End: 03-29-2023 take 1 capsule by mouth once daily Cholecalciferol 50 MCG (2000 UT) CAPS Vitamin D3 50 mcg (2,000 unit) capsule Take 1 capsule every day by oral route. 0 03/29/2023 Discontinued Fish Oils (6 sources) Fish Oil Not-Taking/PRN Fish Oil Not-David ing Multi Vitamin Mens (6 sources) Multi Vitamin Me ns Not-Taking/PRN Multi Vitamin Me ns Not-Taking ondansetron 4 mg disintegrating oral tablet (11 sources) Serotonin-3 Receptor Antagonist End: 03-29-2023 ondansetron (ZOFRAN-ODT) 4 MG disintegrating tablet Indications: Preop cardiovascular exam , PAF (paroxysmal atrial fibrillation) (HCC) , Anticoagulated , JAVED on CPAP , Obesity, unspecified classification, unspecified obesity type, unspecified whether serious comorbidity present ondansetron 4 mg disintegrating tablet 0 03/29/2023 Discontinued predniSONE 20 mg oral tablet (11 sources) End: 03-29-2023 predniSONE (DELTASONE) 20 MG tablet Indications: Preop cardiovascular exam , PAF (paroxysmal atrial fibrillation) (HCC) , Anticoagulated , JAVED on CPAP , Obesity, unspecified classification, unspecified obesity type, unspecified whether serious comorbidity present prednisone 20 mg tablet 0 03/29/2023 Discontinued Psyllium (6 sources) Metamucil 48.57 % Orally Not-Taking/PRN Metamucil 48.57 % Orally Not-Taking tamsulosin hydrochloride 0.4 mg oral capsule (15 sources) alpha-Adrenergic Yadiel End: 03-29-2023 take 1 capsule by mouth once daily tamsulosin (FLOMAX) 0.4 MG capsule Indications: Preop cardiovascular exam , PAF (paroxysmal atrial fibrillation) (HCC) , Anticoagulated , JAVED on CPAP , Obesity, unspecified classification, unspecified obesity type, unspecified whether serious comorbidity present tamsulosin 0.4 mg capsule Take 1 capsule every day by oral route for 90 days. 0 03/29/2023 Discontinued Problems Active Problems Problem Classification Problem Date Documented Da te Episodic/Chronic Acute bronchitis (6 sources) Acute bronchitis; 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: [Acute bronchitis] Onset: 11-08-2013 Episodic Cancer of colon (18 sources) Malignant tumor of colon; 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: [Malignant neoplasm of colon, unspecified] Onset: 11-07-2014 12-28-2018 Chronic Cancer of rectum and anus (3 sources) History of malignant neoplasm of rectum; 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: [Personal history of other malignant neoplasm of rectum, rectosigmoid junction, and anus] Onset: 07-29-2022 Episodic Cardiac dysrhythmias (20 sources) Paroxysmal atrial fibrillation; 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: [Paroxysmal atrial fibrillation] Onset: 12-28-2018 Resolved: 03-29-2023 Chronic Chronic obstructive pulmonary disease and bronchiectasis (1 source) Bronchitis, not specified as acute or chronic Episodic Complications of surgical procedures or medical care (7 sources) Short bowel syndrome; 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: [Postsurgical malabsorption, not elsewhere classified] Chronic Disorders of lipid metabolism (3 sources) Hyperlipidemia; 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: [Hyperlipidemia, unspecified] Chronic Essential hypertension (20 sources) Hypertensive disorder; 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: [Essential (primary) hypertension] Onset: 05-03-2013 12-28-2018 Chronic Genitourinary symptoms and ill-defined conditions (20 sources) Blood in urine; 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: [Jonathan hematuria] Onset: 05-27-2020 Resolved: 03-29-2023 10-27-2021 Episodic Hyperplasia of prostate (20 sources) Benign prostatic hypertrophy with outflow obstruction; 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: [Benign prostatic hyperplasia with lower urinary tract symptoms] Onset: 09-15-2017 Resolved: 03-29-2023 Chronic Immunizations and screening for infectious disease (3 sources) Vaccination given; 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: [Encounter for immunization] Episodic Mycoses (9 sources) Candidiasis of skin; 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: [Candidiasis of skin and nail] Episodic Osteoarthritis (20 sources) Arthritis; 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: [Unspecified osteoarthritis, unspecified site] Onset: 05-27-2020 03-26-2019 Chronic Other aftercare (18 sources) Drug therapy finding; 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: [retirement (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] Onset: 09-03-2020 Episodic Other aftercare (5 sources) Encounter for therapeutic drug level monitoring; 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: [ENC THERAPEUTC DRUG LEVL MONITORING] Onset: 11-05-2022 Episodic Other and unspecified benign neoplasm (6 sources) Tubular adenoma of colon; 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: [Tubular adenoma of colon] Episodic Other and unspecified benign neoplasm (1 source) Polyp of colon; 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: [Polyp of colon] Onset: 10-06-2022 Episodic Other circulatory disease (3 sources) Elevated blood-pressure reading without diagnosis of hypertension; 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: [Elevated blood-pressure reading, without diagnosis of hypertension] Episodic Other congenital anomalies (3 sources) Congenital deformity of spine; 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] Onset: 06-12-2017 Chronic Other connective tissue disease (6 sources) Peripheral neuralgia; 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: [Neuralgia and neuritis, unspecified] Episodic Other connective tissue disease (5 sources) Other muscle spasm; 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: [OTHER MUSCLE SPASM] Onset: 07-20-2022 Episodic Other connective tissue disease (3 sources) Neuralgia; 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: [Neuralgia and neuritis, unspecified] Episodic Other diseases of kidney and ureters (1 source) Urinary tract obstruction; 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: [Other obstructive and reflux uropathy] Onset: 10-27-2021 Episodic Other disorders of stomach and duodenum (1 source) Other diseases of stomach and duodenum; 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: [Other diseases of stomach and duodenum] Onset: 03-28-2018 Episodic Other male genital disorders (4 sources) Male erectile dysfunction, unspecified; 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: [Erectile dysfunction] Onset: 10-27-2021 Chronic Other male genital disorders (5 sources) Impotence 09-03-2020 Chronic Other nervous system disorders (1 source) Other chronic pain; 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: [OTHER CHRONIC PAIN] Onset: 07-27-2022 Chronic Other non-traumatic joint disorders (3 sources) Pain in right hip joint; 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: [Pain in right hip] Episodic Other non-traumatic joint disorders (3 sources) Arthralgia of the lower leg; 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: [Pain in right knee] Episodic Other nutritional; endocrine; and metabolic disorders (5 sources) Obesity; 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: [Obesity, unspecified] Chronic Other nutritional; endocrine; and metabolic disorders (6 sources) Body mass index 40+ - severely obese; 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: [Body mass index (BMI) 40.0-44.9, adult] Onset: 06-12-2017 Chronic Phlebitis; thrombophlebitis and thromboembolism (1 source) Chronic embolism and thrombosis of right femoral vein; 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: [CHRON EMBO THROMB RT FEMORAL VEIN] Onset: 10-03-2022 Chronic Pulmonary heart disease (9 sources) Pulmonary hypertension; 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: [Pulmonary hypertension, unspecified] Chronic Pulmonary heart disease (14 sources) Pulmonary embolism; 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: [Other pulmonary embolism without acute cor pulmonale] Onset: 05-02-2016 Episodic Residual codes; unclassified (7 sources) Sleep apnea; 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: [Sleep apnea, unspecified] Onset: 03-29-2023 04-16-2020 Chronic Residual codes; unclassified (15 sources) Obstructive sleep apnea syndrome; 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: [Obstructive sleep apnea (adult) (pediatric)] Chronic Residual codes; unclassified (2 sources) Obstructive sleep apnea (adult) (pediatric); 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: [Obstructive sleep apnea (adult) (pediatric)] Onset: 03-29-2023 Chronic Residual codes; unclassified (1 source) Dependence on other enabling machines and devices; 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: [Dependence on other enabling machines and devices] Onset: 03-29-2023 Chronic Residual codes; unclassified (1 source) Family history of malignant neoplasm of digestive organ; 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: [Family history of malignant neoplasm of digestive organs] Onset: 07-29-2022 Episodic Residual codes; unclassified (12 sources) Family history of cancer of colon; 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: [Family hx of colon cancer] Onset: 03-29-2023 07-29-2022 Episodic Spondylosis; intervertebral disc disorders; other back problems (15 sources) Spondylosis without myelopathy or radiculopathy, cervical region; 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: [Sacroiliitis, not elsewhere classified] Onset: 04-07-2022 Chronic Unclassified (5 sources) Asymptomatic microscopic hematuria 10-27-2021 Unclassified (5 sources) Patient encounter status 10-27-2021 Unclassified (4 sources) History of malignant neoplasm of colon and/or rectum 07-29-2022 Unclassified (4 sources) LOW BACK PAIN, UNSPECIFIED; 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: [LOW BACK PAIN, UNSPECIFIED] Onset: 03-25-2022 Unclassified (1 source) Other persistent atrial fibrillation; 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: [Other persistent atrial fibrillation] Onset: 12-28-2018 Past or Other Problems Problem Classification Problem Date Documented Da te Episodic/Chronic Deficiency and other anemia (3 sources) Pernicious anemia; 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: [Vitamin B12 deficiency anemia due to intrinsic factor deficiency] Onset: 08-28-2017 Episodic Inflammation; infection of eye (except that caused by tuberculosis or sexually transmitteddisease) (3 sources) External hordeolum; 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: [Hordeolum externum unspecified eye, unspecified eyelid] Onset: 05-03-2013 Episodic Inflammatory conditions of male genital organs (3 sources) Acute prostatitis; 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: [Acute prostatitis] Onset: 05-30-2018 Episodic Other aftercare (2 sources) technician terminal and repeater (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; 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: [SNF CURRNT USE 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] Onset: 09-03-2020 Episodic Other gastrointestinal disorders (3 sources) Diarrhea; 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: [Diarrhea, unspecified] Onset: 03-03-2016 Episodic Other lower respiratory disease (3 sources) Dyspnea; 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: [Dyspnea, unspecified] Onset: 04-18-2016 Episodic Other nervous system disorders (3 sources) Altered sensation of skin; 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: [Disturbance of skin sensation] Onset: 08-16-2017 Episodic Other non-traumatic joint disorders (3 sources) Arthralgia of the pelvic region and thigh; 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: [Pain in joint, pelvic region and thigh] Onset: 06-12-2017 Episodic Other screening for suspected conditions (not mental disorders or infectious disease) (20 sources) Raised prostate specific antigen; 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: [Elevated prostate specific antigen [PSA]] Onset: 05-30-2018 Episodic Other upper respiratory infections (3 sources) Acute sinusitis; 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: [Acute sinusitis, unspecified] Onset: 11-08-2013 Episodic Juju-; endo-; and myocarditis; cardiomyopathy (except that caused by tuberculosis or sexually transmitted disease) (3 sources) Disorder of pericardium; 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: [Pericardial effusion (noninflammatory)] Onset: 05-02-2016 Episodic Phlebitis; thrombophlebitis and thromboembolism (8 sources) Deep venous thrombosis of lower extremity; 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: [Acute embolism and thrombosis of unspecified deep veins of right lower extremity] Onset: 07-10-2016 04-16-2020 Episodic Spondylosis; intervertebral disc disorders; other back problems (6 sources) Radiculopathy, lumbar region; 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: [Spinal stenosis, lumbar region without neurogenic claudication] Onset: 06-12-2017 Episodic Unclassified (1 source) LOW BACK PAIN, UNSPECIFIED; 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: [LOW BACK PAIN, UNSPECIFIED] Onset: 03-22-2022 Unclassified (3 sources) Vaccine product containing only acellular Bordetella pertussis and Clostridium tetani and Corynebacterium diphtheriae antigens (medicinal product); 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: [Vesqfkhuqy-djchjbq-t ertussis, combined [DTP] [DtaP]] Onset: 02-13-2014 Viral infection (1 source) COVID-19 Results Test Name Value Interpretation Reference Range Facility Progress Noteson 03-29-2023 [employer] Authentication Interface Message Text Phone numbers Preferred Documentation: Mode: Video Consent: This visit was initiated by the patient. Audio and visual communication was utilized in real-time. I confirmed understanding of risks and benefits of telehealth visits and obtained consent to proceed with the telemedicine visit. Location of Patient: Home of patient Time-Based Billing Justifications: Charting in Epic Patient visit (including performing a medically appropriate exam) Obtaining history (or reviewing separately obtained history) CARDIAC ELECTROPHYSIOLOGY CONSULT NOTE Evangelist Ybarra was seen today on 03/29/2023 in consultation due to chief complaint of AF. Telephone Visit for EP Evangelist Ybarra 67 year old male Phone numbers PCP: No primary care provider on file. Encounter Diagnoses Name Primary? 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 Last televisit- 08/2020- He had to ER on 05/22/20 when he had pain with a blood clot- needing to stop his coumadin for a short period of time. He felt like he has been in sinus rhythm on his self checks. He was on Flecainide 100 mg BID and Lopressor 100 mg BID. Since patient last saw me, he had TURP done- no further hematuria or urgency. PSA has been stable. Colonoscopy was normal per patient. No melena etc. ALLERGIES: Allergies Allergen Reactions Other (Review Comments!) MEDICATIONS: Current Outpatient Medications Medication Sig Dispense Refill Sodium Sulfate-Mag Sulfate-KCl (Sutab) [id number] MG TABS Take by mouth. AMLODIPINE BESYLATE ORAL amLODIPine Besylate Not-Taking sildenafil citrate (VIAGRA) 25 MG tablet Take 25 mg by mouth. warfarin (COUMADIN) 5 MG tablet TAKE ONE TO ONE AND ONE-HALF TABLETS DAILY OR DIRECTED BY MEDICATION MANAGEMENT CLINIC 120 Tablet 3 metoprolol (TOPROL-XL) 100 mg XL tablet Take 1 Tablet by mouth daily. 90 Tablet 3 flecainide (TAMBOCOR) 100 MG tablet Take 1 Tablet by mouth 2 times daily. 180 Tablet 3 Klor-Con M20 20 MEQ controlled release tablet TAKE 1 TABLET TWICE A DAY 180 Tablet 3 loratadine (CLARITIN) 10 MG tablet Take 10 mg by mouth daily. 3 olopatadine (PATANOL) 0.1 % ophthalmic solution olopatadine 0.1 % eye drops Potassium Chloride 40 MEQ/15ML (20%) SOLN 15 mL. hydrochlorothiazide (HYDRODIURIL) 25 MG tablet lisinopril (PRINIVIL, ZESTRIL) 40 MG tablet atorvastatin (LIPITOR) 20 MG tablet baclofen (LIORESAL) 10 MG tablet Take 10 mg by mouth at bedtime. 4 No current facility-administered medications for this visit. PMH: No past medical history on file. PSH: No past surgical history on file. FH: No family history on file. SH: Social History Socioeconomic History Marital status: Highest education level: Bachelor's degree (e.g., BA, AB, BS) Tobacco Use Smoking status: Never Smokeless tobacco: Never Substance and Sexual Activity Alcohol use: Not Currently Drug use: Never Social Determinants of Health Financial Resource Strain: Low Risk (03/27/2023) Overall Financial Resource Strain (CARDIA) Difficulty of Paying Living Expenses: Not hard at all Food Insecurity: No Food Insecurity (03/27/2023) Hunger Vital Sign Worried About Running Out of Food in the Last Year: Never true Ran Out of Food in the Last Year: Never true Transportation Needs: No Transportation Needs (03/27/2023) PRAPARE - Transportation Lack of Transportation (Medical): No Lack of Transportation (Non-Medical): No Physical Activity: Unknown (03/27/2023) Exercise Vital Sign Days of Exercise per Week: Patient refused Minutes of Exercise per Session: Patient refused Stress: No Stress Concern Present (03/27/2023) [employer] [place] - Occupational Stress Questionnaire Feeling of Stress : Not at all Social Connections: Moderately Integrated (03/27/2023) Social Connection and Isolation Panel [NHANES] Frequency of Communication with Friends and Family: More than three times a week Frequency of Social Gatherings with Friends and Family: Twice a week Attends Anabaptism Services: Never Active Member of Clubs or Organizations: Yes Attends Club or Organization Meetings: More than 4 times per year Marital Status: Intimate Partner Violence: Not At Risk (03/27/2023) Humiliation, Afraid, Rape, and Kick questionnaire Fear of Current or Ex-Partner: No Emotionally Abused: No Physically Abused: No Sexually Abused: No LABS: Basic Metabolic Panel None CBC (last 3 years, up to 5 values) None Lipids (last 3 years, up to 5 values) None TSH None Assessment/Plan: Persistent atrial fibrillation (HCC) (Primary Diagnosis) [341535] Anticoagulated [672129] JAVED on CPAP [531474] (more content not included)... Normal [facility] [employer] [facility] Telephone Encounteron 2022 [employer] Authentication Interface Message Text LVM for pt that new generic Rx (Toprol XL) was sent over to [facility]. Normal [facility] [employer] [facility] Telephone Encounteron 2022 [employer] Authentication Interface Message Text Patient called stating the original prescription that was sent had a KP for Toprol XL 100mg which is not covered. Please send over generic Metoprolol ER Succinate 100mg. Thank you! Normal [employer] Authentication Interface Message Text Dr. Carnes, [facility] does not monitor patient's INR, please provide refill if appropriate. Kind regards, Fortino Kiser, PharmD BCGP Normal [facility] [employer] Authentication Interface Message Text Ross miranda is calling wanting to know if they can dispense Metoprolol SUCC-ER 100 mg instead of the Toprol XL 100 mg, pt's insurance will only cover the generic brand. Please contact [phone] use Re:[phone]. Thank you Normal [facility] Lab Reportson 02-06-2023 Lab Reports [id number] Normal [facility] C Urineon 01-26-2023 Bacteria identified Cx Nom (U) Microbiology PROCEDURE: Urine Culture [R1] SOURCE: U Random BODY SITE: COLLECTED DATE/TIME: 01/24/2023 10:19 EDT RECEIVED DATE/TIME: 01/24/2023 18:46 EDT START DATE/TIME: 01/24/2023 18:46 EDT FREE TEXT SOURCE: CATHIE HERNANDEZ PA-C, PA-C, JENNIFER E FINAL REPORTS Final Report [] Verified Date/Time: 01/26/2023 09:20 EDT 300 cfu/ml Mixed skin contaminants Performing Locations R1: This test was performed at: [facility], [address] [place] [address], [id number] , [place], Normal [facility] Comment on above: Performed By: #### 2 [id number] ####[facility] [address] [place] [address] Ambulatory Visit Summaryon 0 01-24-2023 Ambulatory Visit Summary EVANGELIST YBARRA :1955 Visit Date:01/24/2023 Ambulatory Visit Instructions Your Diagnosis Erectile dysfunction Asymptomatic microscopic hematuria Elevated PSA BPH with urinary obstruction Tests Performed Urnls Dip Stick Auto w/o Microscopy POC [id number] Your Care Team Attending Physician - CATHIE HERNANDEZ PA-C Primary Care Physician - DONALD LIZARRAGA MD This Is Your Medications List sildenafil (Viagra 25 mg Tab) Contact prescribing physician if questions or concerns atorvastatin baclofen (baclofen 10 mg Tab) calcium carbonate (Os-Avery 500) flecainide gabapentin hydrochlorothiazide (hydrochlorothiazide 25 mg oral tablet) lisinopril loratadine metoprolol (metoprolol tartrate 100 mg Tab) multivitamin (Super B Complex) olopatadine ophthalmic (olopatadine 0.7% ophthalmic solution) potassium chloride (Klor-Con) warfarin Procedures Performed Colonoscopy (10/06/2022), TURP - Transurethral resection of prostate (04/23/2020), Transrectal biopsy of prostate using ultrasound (US) guidance (07/19/2018), EGD - Esophagogastroduodenoscopy (12/21/2017), Colonoscopy, Excision of cyst, Nerve blocks in lower limb, Special back care. Discharge Vitals Heart Rate (Peripheral) 72 Respiratory Rate 16 Blood Pressure 130/80 Height 183.8 cm Height 72 in Weight 144 kg Weight 316.8 lb BMI 42.63 What to do next Scheduled Follow-Up Appointments Monday 10:00 AM EDT With: CATHIE HERNANDEZ PA-C Where: [facility] [place] Normal [facility] Patient Educationon 01-25-20 Patient Education Urology Erectile Dysfunction Erectile dysfunction (ED) is the inability to get or keep an erection in order to have sexual intercourse. ED is considered a symptom of an underlying disorder and is not considered a disease. ED may include: ? Inability to get an erection. ? Lack of enough hardness of the erection to allow penetration. ? Loss of erection before sex is finished. What are the causes? This condition may be caused by: ? Physical causes, such as: ? Artery problems. This may include heart disease, high blood pressure, atherosclerosis, and diabetes. ? Hormonal problems, such as low testosterone. ? Obesity. ? Nerve problems. This may include back or pelvic injuries, multiple sclerosis, Parkinson's disease, spinal cord injury, and stroke. ? Certain medicines, such as: ? Pain relievers. ? Antidepressants. ? Blood pressure medicines and water pills (diuretics). ? Cancer medicines. ? Antihistamines. ? Muscle relaxants. ? Lifestyle factors, such as: ? Use of drugs such as marijuana, cocaine, or opioids. ? Excessive use of alcohol. ? Smoking. ? Lack of physical activity or exercise. ? Psychological causes, such as: ? Anxiety or stress. ? Sadness or depression. ? Exhaustion. ? Fear about sexual performance. ? Guilt. What are the signs or symptoms? Symptoms of this condition include: ? Inability to get an erection. ? Lack of enough hardness of the erection to allow penetration. ? Loss of the erection before sex is finished. ? Sometimes having normal erections, but with frequent unsatisfactory episodes. ? Low sexual satisfaction in either partner due to erection problems. ? A curved penis occurring with erection. The curve may cause pain, or the penis may be too curved to allow for intercourse. ? Never having nighttime or morning erections. How is this diagnosed? This condition is often diagnosed by: ? Performing a physical exam to find other diseases or specific problems with the penis. ? Asking you detailed questions about the problem. ? Doing tests, such as: ? Blood tests to check for diabetes mellitus or high cholesterol, or to measure hormone levels. ? Other tests to check for underlying health conditions. ? An ultrasound exam to check for scarring. ? A test to check blood flow to the penis. ? Doing a sleep study at home to measure nighttime erections. How is this treated? This condition may be treated by: ? Medicines, such as: ? Medicine taken by mouth to help you achieve an erection (oral medicine). ? Hormone replacement therapy to replace low testosterone levels. ? Medicine that is injected into the penis. Your health care provider may instruct you how to give yourself these injections at home. ? Medicine that is delivered with a short applicator tube. The tube is inserted into the opening at the tip of the penis, which is the opening of the urethra. A tiny pellet of medicine is put in the urethra. The pellet dissolves and enhances erectile function. This is also called MUSE (medicated urethral system for erections) therapy. ? Vacuum pump. This is a pump with a ring on it. The pump and ring are placed on the penis and used to create pressure that helps the penis become erect. ? Penile implant surgery. In this procedure, you may receive: ? An inflatable implant. This consists of cylinders, a pump, and a reservoir. The cylinders can be inflated with a fluid that helps to create an erection, and they can be deflated after intercourse. ? A semi-rigid implant. This consists of two silicone rubber rods. The rods provide some rigidity. They are also flexible, so the penis can both curve downward in its normal position and become straight for sexual intercourse. ? Blood vessel surgery to improve blood flow to the penis. During this procedure, a blood vessel from a different part of the body is placed into the penis to allow blood to flow around (bypass) damaged or blocked blood vessels. ? Lifestyle changes, such as exercising more, losing weight, and quitting smoking. Follow these instructions at home: Medicines ? Take wipo-zzy-dzuzipy and prescription medicines only as told by your health care provider. Do not increase the dosage without first discussing it with your health care provider. ? If you are using self-injections, do injections as directed by your health care provider. Make sure you avoid any veins that are on the surface of the penis. After giving an injection, apply pressure to the injection site for 5 minutes. ? Talk to your health care provider about how to prevent headaches while taking ED medicines. These medicines may cause a sudden headache due to the increase in blood flow in your body. General instructions ? Exercise regularly, as directed by your health care provider. Work with your health care provider to lose weight, if needed. ? Do not use any products that contain nicotine or tobacco. These products include cig (more content not included)... Normal [facility] URINALYSISOrdered By: Sweetie Ma on 01-24-2023 Bacteria LM Ql (Urine sed) Trace /HPF Normal Trace/HPF [facility] UA Auto SS Bilirubin Ql (U) Negative (01/24/23 10:19 AM) Normal Negative [facility] UA Auto SS Clarity (U) Clear (01/24/23 10:19 AM) Normal Clear [facility] UA Auto SS Color (U) Yellow (01/24/23 10:19 AM) Normal Yellow [facility] UA Auto SS Epithelial cells.squamous LM.HPF (Urine sed) [#/Area] 0-2 /HPF Normal 0-2/HPF [facility] UA Auto SS Glucose Test strip (U) [Mass/Vol] Negative (01/24/23 10:19 AM) Normal Negative [facility] UA Auto SS Hemoglobin Ql (U) Negative (01/24/23 10:19 AM) Normal Negative [facility] UA Auto SS Ketones (U) [Mass/Vol] Negative (01/24/23 10:19 AM) Normal Negative [facility] UA Auto SS Barber.plasma/Lith ium.RBC (Bld) [Mass ratio] 0-3 /HPF Normal 0-3/HPF [facility] UA Auto SS Nitrite Ql (U) Negative (01/24/23 10:19 AM) Normal Negative [facility] UA Auto SS pH (U) 5.0 *NA* (01/24/23 10:19 AM) Invalid Interpretation Code 5.0 - 9.0 [facility] UA Auto SS Protein (U) [Mass/Vol] Negative (01/24/23 10:19 AM) Normal Negative [facility] UA Auto SS Specific gravity (U) [Rel density] >=1.030 *NA* (01/24/23 10:19 AM) Invalid Interpretation Code 1.005 - 1.030 [facility] UA Auto SS UA Spec Desc Random Urine (01/24/23 10:19 AM) Normal [facility] UA Auto SS Urobilinogen Qn (U) 0.8112433 {Anne'U}/dL Normal 0.0 - 1.0 EU/dL [facility] UA Auto SS WBC Auto Ql (U) Negative (01/24/23 10:19 AM) Normal Negative [facility] UA Auto SS WBC LM.HPF (Urine sed) [#/Area] 0-5 /HPF Normal 0-5/HPF [facility] UA Auto SS Urinalysison 01-24-2023 Bacteria LM Ql (Urine sed) TRACE Normal Trace [facility] Comment on above: Performed By: #### 1 [id number] ####[facility] [address] [place] [address] Bilirubin Ql (U) Negative Normal Negative [facility] Comment on above: Performed By: #### 1 [id number] ####[facility] [address] [place] [address] Clarity (U) CLEAR Normal Clear [facility] Comment on above: Performed By: #### 1 [id number] ####[facility] [address] [place] [address] Color (U) YELLOW Normal Yellow [facility] Comment on above: Performed By: #### 1 [id number] ####[facility] [address] [place] [address] Epithelial cells.squamous LM.HPF (Urine sed) [#/Area] 0-2 Normal 0-2 [facility] Comment on above: Performed By: #### 1 [id number] ####[facility] [address] [place] [address] Glucose Test strip (U) [Mass/Vol] Negative Normal Negative [facility] Comment on above: Performed By: #### 1 [id number] ####[facility] [address] [place] [address] Hemoglobin Ql (U) Negative Normal Negative [facility] Comment on above: Performed By: #### 1 [id number] ####[facility] [address] [place] [address] Ketones (U) [Mass/Vol] Negative Normal Negative [facility] Comment on above: Performed By: #### 1 [id number] ####[address] [address] Barber.plasma/Lith ium.RBC (Bld) [Mass ratio] 0-3 Normal 0-3 [facility] Comment on above: Performed By: #### 1 [id number] ####[address] [address] Nitrite Ql (U) Negative Normal Negative [facility] Comment on above: Performed By: #### 1 [id number] ####[address] [address] pH (U) 5.0 [pH] Invalid Interpretation Code 5.0-9.0 [facility] Comment on above: Performed By: #### 1 [id number] ####[address] [address] Protein (U) [Mass/Vol] Negative Normal Negative [facility] Comment on above: Performed By: #### 1 [id number] ####[address] [address] Specific gravity (U) [Rel density] >=1.030 Invalid Interpretation Code 1.005-1.03 0 [facility] Comment on above: Performed By: #### 1 [id number] ####[address] [address] Type of Urine collection method Random Urine Normal [facility] Comment on above: Performed By: #### 1 [id number] ####[address] [address] Urobilinogen Qn (U) 0.2 {Anne'U}/dL Normal 0.0-1.0 [facility] Comment on above: Performed By: #### 1 [id number] ####[address] [address] WBC Auto Ql (U) Negative Normal Negative [facility] Comment on above: Performed By: #### 1 [id number] ####[facility] [address] [place] [address] WBC LM.HPF (Urine sed) [#/Area] 0-5 Normal 0-5 [facility] Comment on above: Performed By: #### 1 [id number] ####[facility] [address] [place] [address] Urology Office/Clinic Noteon 01-24-2023 Urology Office/Clinic Note Chief Complaint 15m PSA HPI Staff Former [facility] pt 1yr PSA DX: BPH, ED & Elevated PSA *No Urology Meds- Had script for Viagra in the past-Never used. States he was given vague instructions & due to health Hx he was hesitant. Would like to pursue ED Tx. Difficulty achieving erection. Denies urinary complaints, attributes to TURP done 04/2020 PSA 09/08/22- 0.61 IPSS 3 QOL 0 CINDY 6 History of Present Illness staff HPI reviewed and agree. Review of Systems PHQ Score Initial Depression Screen Score: 0 no fever, chills, malaise, myalgia. no rash/lesions. no chest pain, palpitations, or SOB. no abdominal pain, nausea, vomiting. no unilateral calf swelling, redness, pain Physical Exam Vitals & Measurements HR: 72(Peripheral) RR: 16 BP: 130/80 HT: 72 in HT: 183.8 cm WT: 144 kg WT: 316.8 lb BMI: 42.63 General: nontoxic, NAD Mouth: moist mucosa Lungs: normal respiratory effort Cardio: regular rate, good distal perfusion Abdomen: nondistended, no suprapubic distention or tenderness, no CVA tenderness Neurologic: Grossly normal Skin: No rashes or suspicious lesions Assessment/Plan 1. Erectile dysfunction (N52.9: Male erectile dysfunction, unspecified) CINDY 6(10) Pt states he has difficulty achieving erection. +interest in sex. +willing partner. Pt had script for Viagra from [facility] in the past, never used. Pt states his hesitations include risks due to hx of heart issues. Pt has had issues w Afib twice in the past. 2005 required cardioversion. then a few years later developed PE. on Coumadin. levels are stable. Pt denies any hx of heart attacks or strokes. Explained that he is certainly at higher risk with his hx, but that it does not sound to me like viagra would be contraindicated. Advised pt to contact his manager of quality to discuss risks and get clearance/assurance from them. Once that's done, he can start Sildenafil 25 mg PRN. Educated on how to titrate dose as needed. Will send Sildenafil 25 mg PRN to [facility]. Discussed the medication side effects, and the patient will monitor closely for these, as well as for symptom improvement. If severe side effects occur, the medication should be stopped and the office notified. 2. Asymptomatic microscopic hematuria (R31.21: Asymptomatic microscopic hematuria) UA today shows trace-intact blood. Pt denies any visible blood in urine. Will send urine for micro and cx. Did not go into depth regarding hematuria eval during today's visit. Will call pt and discuss hematuria eval at length if it shows blood in his urine. Pt aware that no news is good news. Ordered: Urinalysis Urine Culture 3. Elevated PSA (R97.20: Elevated prostate specific antigen [PSA]) S/p Negative TRUS BX 07/19/18 PSA 05/19/18 - 7.19 03/07/19 - 1.10 03/21/20 - 1.31 08/23/21 - 0.60 09/08/22 - 0.61 Discussed levels with pt, level remain low and stable. Discussed continuing to monitor PSA. Pt agrees with plan. Pt states his PCP gets his PSA, pt will bring results at next follow up appointment. 4. BPH with urinary obstruction (N40.1: Benign prostatic hyperplasia with lower urinary tract symptoms) S/p TURP Apr 2020. IPSS 3(2), QOL 0(0). Pt is currently taking no bladder/prostate medication. Pt is satisfied with overall symptom control. No indication for treatment at this time. Continue to monitor. Ordered: Urnls Dip Stick Auto w/o Microscopy POC 40494 Orders: sildenafil, 25 mg = 1 tab(s), Oral, As Directed, PRN for erectile dysfunction, Take 1 hour before sexual activity. Start with 1 tab, if no improvement, you may increase dose. Do not exceed 4 tabs/100mg in 24 hrs., # 15 tab(s), Refills(s) 2, Pharmacy: [facility]/pharmacy... Follow up in 1 year. All questions/concerns were discussed. Pt to call the office if he encounters any issues prior. Pt acknowledges understanding. Follow-up With When Contact Information CATHIE HERNANDEZ PA-C, ABEL In 1 year [address] [place] [address] Additional Instructions: Patient Education Erectile Dysfunction Documentation recorded by the scribion Canales accurately reflects the services(s) I performed and decisions made by me. Authenticated by Cathie Hernandez PA-C on 01/24/2023 11:06:53. ISarah, personally scribed for Cathie Hernandez PA-C on 01/24/2023 10:34:56. . Problem List/Past Medical History Ongoing Arthritis Asymptomatic microscopic hematuria BPH with urinary obstruction Elevated PSA Erectile dysfunction Family history of colon cancer Gross hematuria History of colorectal cancer Prostate cancer screening Historical Frequent urination Hematuria Incomplete bladder emptying Nocturia Urinary urgency Procedure/Surgical History Colonoscopy (10/06/2022), TURP - Transurethral resection of prostate (04/23/2020), Transrectal biopsy of prostate using ultrasound (US) guidance (07/19/2018), EGD - Esophagogastrodu (more content not included)... Normal [facility] Comment on above: Result Comment: Elec tronically Signed By: CATHIE HERNANDEZ PA-C\.br\Date and Time Signed: 01/24/23 11:07 EDT\.br\Electronically Co-Signed By: Sarah Canales\.br\Date and Time Co-Signed: 01/24/23 10:35 EDT Telephone Encounteron 2022 [employer] Authentication Interface Message Text Patient has not been seen by this specialist in more than 1 year. Please contact patient to schedule office visit. Thank you Normal [employer] XR CSPINE MIN 4 VIEWSon 05-0 XR CSPINE MIN 4 VIEWS EXAMINATION: XR CSPINE MIN 4 VIEWS HISTORY: Cervical spondylosis COMPARISON: No relevant comparison available. FINDINGS: BONES: Normal alignment with no acute fracture or spondylolisthesis C7 is not seen on the lateral projection. Moderate diffuse degenerative spondylosis and facet osteoarthropathy DISC SPACES: Normal. No significant disc height narrowing, subluxation, or endplate abnormality. PARASPINOUS: Negative. No paraspinous abnormality is seen. OTHER: Artifact from retained dentures IMPRESSION: Moderate degenerative changes Electronically authenticated by: UNA SEARS Date: 2022-11-10 09:46 Normal [facility] Reminderson 10-17-2022 Reminders - From: Josh Melton To: [facility] - Reminders/Recalls; Sent: 10/17/2022 16:04:07 EDT Show up: 2027 16:03:00 EST Subject: Ambulatory Reminder Due Date/Time: 10/07/2027 16:04:00 EDT Reminder/Recall Repeat colonoscopy in 5 years(2027) due to family history of colon cancer and personal hx of tubular adenoma. Normal [facility] Result Letter Officeon 10-17 Result Letter Office October 17, 2022 EVANGELIST YBARRA [address] [place] [address] EVANGELIST YBARRA 1955 Below is a summary of the results of your recent colonoscopy. Your results have been sent to your primary care provider along with recommendations on when the procedure should be repeated. COLONOSCOPY WITH POLYP REMOVAL _x__ Normal - NO CANCER Type of polyp tubular adenoma - not cancer but can become cancer if not removed. Additional colonoscopies will be necessary to monitor your condition and assure that new polyps have not developed. Based on your results we are recommending you repeat the procedure in 5 years You will be placed in our reminder system and will receive a reminder letter prior to your next due date. [facility] [phone] Normal [facility] IntraOperative Documentson 0 10-12-2022 IntraOperative Documents [id number]:127 Normal [facility] Postoperative Documentson Postoperative Documents [id number]:127 Normal [facility] Coding Summary.on 10-07-2022 Coding Summary. CD:[id number] Ww+PGhlYW Q+[id number] MIdnaPUBQUDwREeZpahXeHC7yhFDz ZXJu IC8+YU2dZKPoIagbaHJua2R4eMY7B 97rdm3cCYedvUM8TLUgFcFfwyvnq4 fusNf3XIyoQsfqBiFh YISzuB10ZQF8xO00Sw45yKWjbXJww 8svrKq3KuJcIOTjEPN9qFjpLLpdj9 ErKZQpE57qpLElt9C2 HMHaqEskjMStIiJlcRC3hQ0pZGrdq wiyo2kabomqGdf4fj03mXNzq0C7cA U7A9BgmnN5IHNjnYRt VkorbOXReK6dlvytu1pvruqzHiQcG OXnBSo5HIe1RKVtqSaqRgHkZQ34EZ Q0EKZjwbJmN9LcIRCb wPvxQdB9j8R3Zp4OD8SWMwrfN7YQK UFSWTwvdGQ+AK65uc69B3LzUqqkNb w6LCIdJPA2xOQ9uW9x BPGyRCoze7O7cVC5L4AiqzZgft9bn 1pvGINcFYvkW33pdOCdz6W5AYGhqC V5XKKaiKicKiErsC65 Oyc+FHDjuQawm9FfMcpkd8mzn1xju Pj2XtmoLOEqmcJyqUkoQLM6v3UyTs 7cHPCckCS6pAT5eG9r IeUsDjU1GXejS227PkIdtCTeVmvfS 06dI6LouQL+HZLgOkb7GTBdhMafRK 6dY5OpMYLjapidkCYo kXhdZP5pUPCljeacETUgnX0uSNAmX 7f9IeOcNiH9ONnfS0XaRHHizcfbRg 96lY3lWfYxYpI6BVkq P9SakaI3QZZjkRGzLCzmNVU5M53cm 8Y0BXTdYAUeNRQ4mGF9oL5onWvtsd ogbGVmdDsgdmVydGlj BIjjJAwcW452MYVjpMwrOtHxDYtmE yBEYXRlOiAgMDMvMzEvMjAyMzwvdG Q+HEAkMKL9qYpxPIEr wGUmLFqwKy4ysWihhNjqZZ2bNYVqe sjqDRFkzB3sJBHcvSBvfGosSN9zIE Zhjuysm098GpErCGK7 CNPdcPKtZ4VqfS1qKvBuTIMbLCZrJ 8BfeIOoWEpdA407MXmhPfA7AYSyca JoK4ImUQEhlEqaYhI9 y8N2Ut7Wd9LqndroK9DhdXWjRcQvJ rcfSQv3O2BpPqmjhXQ+GO59EQWqMV 38JYu0QEO0wFjkGZhr YZPiU3VhgD2bGaMmNROiCPBhDua+P HRhYmxlIHdpZHRoPScxMDAlJyBzdH uaAD1yOr4hDLDnHYCe kAkfbOFxQpTtw6vjLLZzAXunEP4sk NukK4FfuZM2CSMsh4n5Bn24D92xD5 JvdXA+NUXqxUK0bNS2 wW8wSiUvJmH1JKxkM111RfLmsHWcB uril5wvq5pjwUh1CmG9FHHffiFvnO goSGS4o0OsVv74P78y MHxoWFJnHDCrGZUmUGQbpJnknd9fk G9wIi8+PAJmfGX6wFZ0bJ6aPqZbEt L2FUrnB016UlPcqMXo Lsjeg6kjj6lzhKu8AmEkXHBmyjAjy IjdFQF0j0BgCx00Y9KgcLsqv4NgXs s6fl25tGRrv1L6lYH1 X3CzUEQlvxrumWZreSugAD8uDUGnf kawCAFrrL7pXLRsX7b6DdByWvS2LE sqH6UmfxO0QJBjjVXi IZUjkUKZcE6zovpda8zjilhiKoOlU EXqJYu0AEe2IBFgmXdaBnZmNUV3Cg T0BUQ0hWMxtI2lqXwt vwiaqH8rKgm+BLP5jQJyyAIMMH7xZ jwvdGQ+AYQhMPG2oKkcJJxnGHJduL 0yHEGuX3v9KfOmSqS1 LDgpK7WegiK4CACbrCBbUPAouZSUc J7twwiab6mumholWtLpXALfRSp9QW b7HYMhrTxbDwBiPPS9 MsJ0FKA5iFDhsD3izJnvpkhdgV8lQ yc+FjurvXbuLUC9KWi6G6IkSfb3NA GmgYsjJY1frPPlUPjg Pc7joRiakZerJK0sCHFymyuig705C iMkz7eaNGUupUIsKWsrXXA8S36fz5 Z7GBVmEKMyNTL1xLV6 zA3ooHjgzciusGVzxTrpllMqqCeuA IebKQjnN525VXScbGrhUfNwMQx0N6 BfOxs5UWBxfKokBV4p wFMzTIxvJe5atIvlaJaaCL9qWSAjb nciy573XjZvb3cmDGFzlUBiGGpyOJ K2X73ym2N0JRZfKIFz VZF2kYH0aC8yoZtyvlfcwOJjpGnhm lZniPmcGQbmUMddF980XRIogRpeXw JkoAf0Z8DsMvs2BCEg iNisYQ8twULyFEljYp6asKskpCauT Q1pBEXrwzmvx117SwGfg3koQJLwxW UpAByfPXK4X55oz7G0 XEMyTCFrVUW2sPF0yF8zlZjocefiq LAxcCxzxfAqsYibXFuhEMmqU131VZ RvcDsnPlBhdGllbnQg FKbcSDi4Z9OyAmvguWP+KV25RFKoC D34sEVoeHAji6imcIg7DcYsOCHqKK A0gFckYYsjz7QhCCPo I26jaKLsn6W4ZXTjnByaePFnHmPnn KW9pM8xMEdnufxfc0ifomgdJvtzn8 bykk97vZ05C01nAAcm HUEjDVEvVCNnPPPegQfrvy6vsO5nT i8+HOSgzHH8qUZ5gQ2qMNIpMgS0QS ciJ229AlNdgFVyRgrn u2msp3phnOa6RbY8DPXbfdHaqVfiX PN5d3TrNu05C76pNGqeZDXiQZAzLJ HdTFSayLwokp8aaD7s Ii8+HFKccFE7lBA7xP3iYfMpEkF0S DqlE932JnEvaCEiNhofD20kQ6JnaB A+AGOsReu1HMKunAch HM9ptQGkCKlgGr4bFHV9PqDxBdLpT MsvY0QxNBDxytekzhwfpWC5ALYnYS PzaZ68Fy2dxRtaSTGq qJPIqH5yithta6lffbccMoOmJQRxL Bc7INj1HFCfzYnnHmQoFCV3FnR1YH T2eSFocV5cyAbgyrwe fG9nK3VdMTEzswmrZq09iC7sXkYcQ xW3JZhhKsf+Up6UQLURSOXCML8WJJ YDPC48PS73tIMuk5C0 uEL9H7IqHRDbopqhkfanpMZ6LKMqV KVgxB37xXPzAVxtDj9ba0H5h773QZ IwNGTdgA36Dz6rjJft OHUigRIWeX4dwqvos1livntrUkKnZ GZpPRa5YXv5MLAzcUkoEvBrWBL2Ap F5IPC0rSUhuS1rfCrh qygcgC4zJmf+KABtOQNvUYh2UCkca GQ+GWEuIDN4cGnrOZgcWWRzlS3fQJ UuW7q9PwAoXxP7JEqg U4IoOUTxmwgkSa45kJ4zEmUhZqW9R OiuL6RzdsL6AFYscZFuMOltDFR0Y7 1qt3Q2ZCAcKHFvZML9 xVV6iH3nmYlbusufgXQheGgilbXrt UokCRwbXUriC767YCGbaZnlKwC2BW ekWAOgNL91GD20aNMr t6N6yMU2W1WyRFEsmicoxxpwxTS0Q UOqCUCnfK17oVIvWPmvTg5iv5T7b5 70KDApQJUxaN11Lp1l eVkwSMMrbHUNrW3ozlhgb3yvlxqnK oQcXZJlMYk6REe6EEHpzBchIaFmOZ G6DxL0VFX4xFNhpU3f sMdrzzqsnZ7cOss+TWFsZTwvdGQ+P GGrZEH4gVcqRGaaVGNxmW1cRLKzE7 y8HkKpXyJ8JFqbA1Zc QINpzeleXg41cN7kCgNhJrM6SXogB 7YozdI0CNZmoZNyWVszSES5U85bx1 L6MQBsRFOdRET0iXY8 eM4qfJufoekcpHEveVezpuRbyMnqD WobSTocR280ZUKtcDqrSm31lNDnhK fgugD3W5DsMewbrEY+ IY23JMVaMD38dOOldXCdx8oerPo6Q cJcKEYsQMD1uCjmTTdxb9CeDBUgF5 6ihMEfc6B3HBVlaWzz vEHuBwEldNU3tY5dGWwjjuukt4mnj ccrQkbgs9vaeo08wY78W28bXJnpEO RoPSIzMCUiIHZhbGln aj4shZ7iNb6+THPgnCZ2rZF5jT3sO iPfLgV2NYwlS807LlVwaICvGywpp4 krl3vrcQp1ZyPwIGRr wmFrwYhqTDZ1u7WgMs86C02nXAdfT LZrDBZxGIHcPDHmdWcrem9mhV7jAs 8+VG0oo7kgwb69lP62 dHI+APYbOBQ9sHeiILmeUGFvhF4lP MjwUxJ1LBMfKiNhtX16tLPkRRmzGa 3vwRdcwSwmUQ8tILOm vlkmx980JsCae8psAUHzwJQgEVcvD JZ7M57wi0P1TUHiKNMrWVC2bOW1kO 1hbGlnbjogbGVmdDsg axObbWghFQtmHIpzP207KOLkaNogK oAnhFRhJ6akqeZQCS5jQefqdVJ+PH ZoAYB7dQsdEOfcLXBx gB2xMOGgB4n9LeSwEgR0HJprO7Sqy wB3PUGobCUtMFSagAKCcQ2qszxlu5 xvcjogIzAwMDAwMDt0 YRm0HMPdfDrmMdNjGZZ2DiO5TOP8t NEvkW7nzOaojkwcdQ9uQhx+RklOOj wvdGQ+PHAfEVS1wFdc QLatGQVvuH5fEXZxQ7i1FtFjWpG5O GdeT9KjafM7QNWthZMjYSHgiHYVwV 2brmfgz1hgfzmfAjVv FLMeYLo2WEg8BOIikEexEuWxFHQ9I yF2QUN9qQOpvH6dbSzbxawkrA8yWo c+TVJOOjwvdGQ+PHRk MKN9bDfaBPmtFLSfyY1oOOOlL6d9J aPxGjG8JGanQ8RswpK1PCHxfVIrRQ UrlXOJyG0eogvwa9ak uobrEjHlSWFyXEi1GDo7TPSquQhaN zCbPIY6VyV0BKW0gGVvgO0pqEtpgy iguN0ePol+AAJ4ZKH7 PS20FW53V1PaOsffpNIzyMN+PHRhY mxlIHdpZHRoPScxMDAlJyBzdHlsZT 8hNg9iDMPoVEJrcJli cHNlOiBj (more content not included)... Normal [facility] Consenton 10-07-2022 Consent [id number]#[id number]:127 Normal [facility] Discharge Instructionson Discharge Instructions [id number]#[id number]:127 [facility] Main OR Intraoperative Recor don 10-07-2022 Main OR Intraoperative Record IntraOp Document Type FT Summary Primary Physician: Oxana NARANJO MD Finalized Date/Time: 10/07/22 12:36:06 Pt. Name: EVANGELIST YBARRA/Sex: 1955 Male Med Rec #: [id number] Physician: Oxana NARANJO MD Financial #: [id number] Pt. Type: O Room/Bed: / Admit/Disch: 10/06/22 07:58:57 - 10/06/22 23:59:59 Institution: Case Times FT Entry 1 Patient Times In Room 10/06/22 09:40:00 Out Room 10/06/22 09:51:00 Procedure Times Start 10/06/22 09:42:00 Stop 10/06/22 09:49:00 Anesthesia Times Start 10/06/22 09:40:00 Stop 10/06/22 09:51:00 Last Modified By: Oralia Terry RN 10/06/22 09:51:55 General Comments: 10/07/22 chart opened for charge review per Ambrosio Moore RN. 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 Gooden supervising Last Modified By: Oralia Terry RN, RN, Angela Workman RN, Angela 10/06/22 09:51:56 10/06/22 09:51:56 10/06/22 09:51:56 Entry 4 Case Attendee Oxana NARANJO MD Role Performed Surgeon - Primary Time In 10/06/22 09:40:00 Time Out 10/06/22 09:51:00 Procedure COLONOSCOPY(.) Comments Last Modified By: Oralia Terry RN 10/06/22 09:51:56 Perioperative Protocols FT Pre-Care Text: Implements protective measures prior to operative or invasive procedure, confirms identity before the operative or invasive procedure, verifies operative procedure, surgical site, and laterality Entry 1 Procedure(s) COLONOSCOPY(.) Patient Identity Birthday, ID Band Verified (select at Check, Patient least 2): Participation Consents / H and P Anesthesia Consent, Operative Site N/A Verified HandP, Surgery/Procedure Marking Verified Consent Surgical Site No Laterality Verified n/a Verified Procedure Verified Yes Correct Patient Yes Position Verified Availability Equipment, Medication Prep Dry n/a Verified (If Applicable) PreOp Antibiotic No Time Out Nathaniel Roy CRNA, Given Participants Oralia Terry RN, Sparks, Micala E, SALAM MD, Maher Time Out Complete 10/06/22 09:41:00 Outcomes Met? Yes Last Modified By: Oralia Terry RN 10/06/22 09:43:14 Post-Care Text: The patient is free from signs and symptoms of injury caused by extraneous objects Allergy Information FT Pre-Care Text: Verifies allergies Entry 1 Allergies Reviewed? Yes Allergies Reviewed Self/Patient With Outcomes Met? Yes Last Modified By: Oralia Terry RN 10/06/22 09:43:34 Post-Care Text: The patient received appropriate medication(s) safely administered during the perioperative period Surgical Procedures FT Entry 1 Procedure Description Procedure COLONOSCOPY Modifiers . Surgeon Description COLONOSCOPY with rectal polypectomy Primary Procedure Yes Primary Surgeon Oxana NARANJO MD 10/06/22 09:42:00 Stop 10/06/22 09:49:00 Anesthesia Type General Surgical Service Gastroenterology Wound Class 2 - Clean-Contaminated Last Modified By: Oralia Terry RN 10/06/22 09:49:39 General Case Data FT Pre-Care Text: Classifies surgical wound, implements aseptic technique, initiates traffic control Entry 1 Case Information OR ENDO 1 FT Case Level Level 2 Wound Class 2 - Clean-Contaminated Specialty Gastroenterology ASA Class 3 Preop Diagnosis FAMILY HISTORY OF COLON Postop Same As Preop No CANCER Postop Diagnosis Rectal polyp Outcomes Met? Yes Last Modified By: Oralia Terry RN 10/06/22 09:52:09 Post-Care Text: The patient is free from signs and symptoms of infection Skin Assessment (Pre Procedure) FT Pre-Care Text: Implements protective measures to prevent skin/ tissue injury due to thermal or mechanical sources Evaluates for signs and symptoms of physical injury to skin and tissue Entry 1 Skin Integrity Intact, [place], Warm, and Skin Abnormality No Dry Outcomes Met? Yes Last Modified By: Oralia Terry RN 10/06/22 09:43:56 Post-Care Text: The patient is free from signs and symptoms of injury caused by extraneous objects Patient Positioning FT Pre-Care Text: Identifies physical alterations that require additional precautions for procedure-specific positioning, verifies presence of prosthetics or corrective devices, positions the patient, evaluates the patient for signs and symptoms of injury as a result of positioning Entry 1 Procedure COLONOSCOPY(.) Body Position Lateral, right side up Feet Uncrossed? Yes Left Arm Position Resting at Side Right Arm Position Resting at Side Left Leg Position Extended Right Leg Position Extended Positioning Device Pillow Under Head Large, Safety Strap Press Points Checked Yes By Oralia Terry RN (more content not included)... Normal [facility] Consent for Treatmenton 09-09 Consent for Treatment [id number]#[id number]:127 Normal [facility] Endoscopic Procedure Report - Otheron 10-06-2022 Endoscopic Procedure Report - Other Patient: EVANGELIST YBARRA Age: 67 years Sex: Male : 1955 Associated Diagnoses: None Author: Oxana NARANJO MD Pre-Procedure Procedure Date 10/06/2022 09:49:00 . Procedure Type: Colonoscopy with removal of tumor(s), polyp(s), or other lesion(s) by cold snare technique. Procedure provider Performed by Oxana Naranjo MD. Current history and physical Documented on chart. Colorectal neoplasm risk assessment Average risk. Informed Consent After discussing the rationale, risks and benefits, and alternatives to this procedure, the patient provided signed consent for the procedure. Pre-procedure diagnosis: History of colorectal cancer. Medications Anticoagulant/antiplatelet Coumadin . Last dose was on 09/30/2022. ASA Classification: Class III. . Procedure The procedure was performed in the hospital. Rectal exam was performed and was normal with no masses palpated. The patient was positioned in the left lateral decubitus position and a digital rectal exam was performed.. Endoscope type used was an adult-size. The endoscope was lubricated then introduced through the anus. The scope was advanced past the anastomosis to the neoterminal ileum. No difficulties encountered during the procedure. The bowel preparation quality was adequate (see polyps greater than or equal to 6 millimeters). The patient tolerated the procedure well. Findings 1. Normal cybq-xf-ssnz ileocolonic anastomosis, normal neoterminal ileum 2. Sessile polyp, 5 mm, in the rectum, removed completely with cold snare 3. Small nonbleeding internal hemorrhoids Images Procedure images: [id number].jpg [id number].jpg [id number].jpg [id number].jpg . Post-Procedure Complications: none. Estimated blood loss: none. Specimens: sent to pathology. Devices/ implants: none left in place. Impression and Plan 1. Normal tgxe-fx-vwby ileocolonic anastomosis, normal neoterminal ileum 2. Sessile polyp, 5 mm, in the rectum, removed completely with cold snare 3. Small nonbleeding internal hemorrhoids Recommendations: Repeat colonoscopy:: In 5 years, Pending pathology results. Follow-up:: Clinic follow-up in 1-2 weeks. Diet:: Resume previous diet. Medication resumption:: Continue current medications. Return to activities:: After 24 hours. Normal [facility] Comment on above: Result Comment: Elec tronically Signed By: JOSE A JACKSON, Oxana\.br\Date and Time Signed: 10/06/22 09:50 EDT Other Comment: Diana hilario Attachment - attachment storage system not supported [id number] Can be viewed in source systemMissing Attachment - attachment storage system not supported [id number] Can be viewed in source systemMissing Attachment - attachment storage system not supported [id number] Can be viewed in source systemMissing Attachment - attachment storage system not supported [id number] Can be viewed in source system Inpatient Patient Summaryon 10-06-2022 Inpatient Patient Summary [address] [address] [facility] Clinical Discharge Instructions PERSON INFORMATION Name: EVANGELIST YBARRA [facility]ANS Admitting Physician: Oxana NARANJO MD Attending Physician: Oxana NARANJO MD PCP: DONALD LIZARRAGA MD Discharge Diagnosis: Colon polyp Comment: PATIENT EDUCATION INFORMATION Instructions: Colonoscopy, Care After Surgery Jose A (CUSTOM); Colon Polyps; Hemorrhoids, Lozs-mg-Iznn Medication Leaflets: Follow up: With: Address: When: Oxana NARANJO [address] [place] [address]. [address] [place], [place] [phone] Business (1) Comments: Call for any problems. Type Location Start Finish State URO Office Visit [facility] EU Garrett 01/25/2023 10:00 AM 01/25/2023 10:15 AM Confirmed MEDICATION LIST Medications to Continue with No Changes Other Medications atorvastatin 20 Milligram By Mouth every day. baclofen (baclofen 10 mg Tab) 1 Tablets By Mouth every day. calcium carbonate (Os-Avery 500) 500 Milligram By Mouth 2 times a day. flecainide 100 Milligram By Mouth every 12 hours., heart rhythm gabapentin hydrochlorothiazide (hydrochlorothiazide 25 mg oral tablet) 1 Tablets By Mouth every day. lisinopril 40 Milligram By Mouth every day. loperamide (Immodium A-D 2 mg Cap) 1 Tablets By Mouth every 4 hours as needed for loose stools. loratadine 10 Milligram By Mouth every day. metoprolol (metoprolol tartrate 100 mg Tab) 1 Tablets By Mouth every day. multivitamin (Super B Complex) 1 Tablets By Mouth every day. multivitamin with minerals (Multivitamins and Minerals) By Mouth every day. olopatadine ophthalmic (olopatadine 0.7% ophthalmic solution) potassium chloride (Klor-Con) 40 Milliequivalent By Mouth 2 times a day. warfarin Comment: Marvin [facility] Main OR PACU I Recordon 09-09 Main OR PACU I Record PACU Phase I Document Type FT Summary Primary Physician: Oxana NARANJO MD Finalized Date/Time: 10/06/22 10:35:00 Pt. Name: EVANGELIST YBARRA /Sex: 1955 Male Med Rec #: [id number] Physician: Oxana NARANJO MD Financial #: [id number] Pt. Type: O Room/Bed: / Admit/Disch: 10/06/22 07:58:57 - Institution: Case Times PACU I FT Pre-Care Text: Identifies barriers to communication and implements measures to provide psychological support Develops individualized plan of care, and ensures continuity of care Maintains patient's dignity and privacy, and maintains patient confidentiality Identifies and reports philosophical, cultural, and spiritual beliefs and values Identifies individual values and wishes concerning care Implements aseptic technique, and administers prescribed antibiotic therapy and immunizing agents as ordered Evaluates postoperative tissue perfusion Implements thermoregulation measures, and monitors body temperature Evaluates postoperative respiratory status Evaluates postoperative cardiac status Evaluates postoperative neurological status Assesses pain control, collaborated in initiating patient-controlled analgesia and implements alternative methods of pain control Verifies allergies, administers prescribed medications and solutions, evaluates response to medications Entry 1 In PACU I 10/06/22 09:52:00 Discharge from PACU 10/06/22 10:22:00 I Outcomes Met? Yes Last Modified By: Simón LORDLauren 10/06/22 10:34:47 Post-Care Text: The patient demonstrates knowledge of the expected response to the operative or invasive procedure The patient's care is consistent with the individualized perioperative plan of care The patient's right to privacy is maintained The patient's value system, lifestyle, ethnicity, and culture are considered, respected, and incorporated into the perioperative plan of care The patient participates in decisions affecting his or her perioperative plan of care The patient is free from signs and symptoms of infection The patient has wound/tissue perfusion consistent with or improved from baseline levels established preoperatively The patient is at or returning to normothermia at the conclusion of the immediate postoperative period The patient's respiratory function is consistent with or improved from baseline levels established preoperatively The patient's cardiovascular status is consistent with or improved from baseline levels established preoperatively The patient's cardiovascular status is consistent with or improved from baseline levels established preoperatively The patient demonstrates and/or reports adequate pain control throughout the perioperative period The patient received appropriate medication(s), safely administered during the perioperative period Acuity Level PACU I FT Entry 1 Start Time 10/06/22 09:52:00 Stop Time 10/06/22 10:22:00 Acuity Level Acuity Level I Last Modified By: Lauern Gr RN 10/06/22 10:34:57 Finalized By: Lauren Gr RN Document Signatures Signed By: Lauren Gr RN 10/06/22 10:35 Normal [facility] Main OR Preoperative Recordo n 10-06-2022 Main OR Preoperative Record Holding Area Document Type FT Summary Primary Physician: Oxana NARANJO MD Finalized Date/Time: 10/06/22 08:21:41 Pt. Name: EVANGELIST YBARRA /Sex: 1955 Male Med Rec #: [id number] Physician: Oxana NARANJO MD Financial #: [id number] Pt. Type: O Room/Bed: / Admit/Disch: 10/06/22 07:58:57 - Institution: Case Times Holding FT Pre-Care Text: Verifies consent for planned procedure, identifies individual values and wishes concerning care, includes family members in perioperative teaching Secures patient's records' belongings, and valuables, maintains patient's dignity and privacy, and maintains patient confidentiality Entry 1 In Holding 10/06/22 08:10:00 Outcomes Met? Yes Last Modified By: Roxana Gill RN 10/06/22 08:20:55 Post-Care Text: The patient participates in decisions affecting his or her perioperative plan of care The patient's right to privacy is maintained Surgery Checklist FT Entry 1 Patient Birthday, ID Band Procedure History and Physical, Identification: Check, Patient Verification: Surgical Consent, With Participation Patient NPO after Midnight: Yes Date/Time: 10/06/22 05:00:00 Personal Items clothes, shoes Limitations: n/a Comment: Complaints of Pain: No Pain Comment: denies Operative Site n/a Marked By: n/a Marking: Availability Equipment Verified: Does Patient Smoke No Patient states Yes Comment - Adult Samina- postop adult Supervision supervision available Case Cancelled in No Holding Area see comments below for reason Last Modified By: Roxana Gill RN 10/06/22 08:21:38 General Comments: States finished colon prep at 0500, states stool is clear liquid /,RN Finalized By: Roxana Gill RN Document Signatures Signed By: Roxana Gill RN 10/06/22 08:21 Normal [facility] Monitor Recordon 10-06-2022 Monitor Record [id number]:127 Normal [facility] Monitor Record [id number]:127 Normal [facility] Outpatient Surgery Discharge Instructionon 10-06-2022 Outpatient Surgery Discharge Instruction [address] [address] Patient Discharge Instructions PERSON INFORMATION Name: LYNNETTE EVANGELIST Villafana Date of : 1955 Current Date: 10/06/2022 10:00:08 PHYSICIANS Admitting Physician: JOSE A JACKSON Daigle Discharge Diagnosis: Colon polyp EVANGELIST YBARRA has been given the following list of follow-up instructions, prescriptions, and patient education materials: PATIENT FOLLOW-UP INFORMATION Diet: Regular Discharge Activity: Resume normal activities in 24 hours Discharge Restrictions: No driving for 24 hrs, Do not operate machinery or tools, Do not make important decisions for 24 hours IF UNABLE TO CONTACT YOUR PHYSICIAN AND YOU FEEL IT IS AN EMERGENCY, GO TO THE NEAREST EMERGENCY ROOM OR CALL 911 LYNNETTE Rao THEODORE D, have received the attached patient education materials/instructions and have verbalized understanding: May we do a follow up call? Yes No I was present when discharge instructions were given _ Patient Signature Date Clinican/Nurse Signature Date Follow up: With: Address: When: Oxana NARANJO [address] [place] [address]. [address] [place], [place] [id number] Business (1) Comments: Call for any problems. Type Location Start Finish State U[place] Office Visit [facility] NISHANT Spangler 01/25/2023 10:00 AM 01/25/2023 10:15 AM Confirmed Pharmacy Information: [facility] [place] You may receive a survey from Wolfgang Meza asking you to rate your care experience. Your feedback is important and will help us understand what we do well and how we can improve the quality of care we provide to you, your loved ones and our community. It?s an honor to serve you. Thank you for choosing [facility] HERE ARE THE MEDICATION CHANGES THAT OCCURRED DURING YOUR HOSPITAL STAY Medications to Continue with No Changes Other Medications atorvastatin 20 Milligram By Mouth every day. baclofen (baclofen 10 mg Tab) 1 Tablets By Mouth every day. calcium carbonate (Os-Avery 500) 500 Milligram By Mouth 2 times a day. flecainide 100 Milligram By Mouth every 12 hours., heart rhythm gabapentin hydrochlorothiazide (hydrochlorothiazide 25 mg oral tablet) 1 Tablets By Mouth every day. lisinopril 40 Milligram By Mouth every day. loperamide (Immodium A-D 2 mg Cap) 1 Tablets By Mouth every 4 hours as needed for loose stools. loratadine 10 Milligram By Mouth every day. metoprolol (metoprolol tartrate 100 mg Tab) 1 Tablets By Mouth every day. multivitamin (Super B Complex) 1 Tablets By Mouth every day. multivitamin with minerals (Multivitamins and Minerals) By Mouth every day. olopatadine ophthalmic (olopatadine 0.7% ophthalmic solution) potassium chloride (Klor-Con) 40 Milliequivalent By Mouth 2 times a day. warfarin PATIENT EDUCATION INFORMATION Instructions: Colonoscopy Care After Surgery Please read the instructions outlined below and refer to this sheet in the next few weeks. These discharge instructions provide you with general information on caring for yourself after you leave the hospital. Your doctor may also give you specific instructions. While your treatment has been planned according to the most current medical practices available, unavoidable complications occasionally occur. If you have any problems or questions after discharge, please call your doctor. ACTIVITY You may resume your regular activity, but move at a slower pace for the next 24 hours. Take frequent rest periods for the next 24 hours. Walking will help get rid of the air and reduce the bloated feeling in your abdomen (belly). No driving for 24 hours (because of the anesthesia (medicine) used during the test). You may shower. Do not sign any important legal documents or operate any machinery for 24 hours (because of the anesthesia used during the test). NUTRITION Drink plenty of fluids. You may resume your normal diet as instructed by your doctor. Begin with a light meal and progress to your normal diet. Heavy or fried foods are harder to digest and may make you feel nauseated (sick to your stomach). Avoid alcoholic beverages for 24 hours or as instructed. MEDICATIONS You may resume your normal medications unless your doctor tells you otherwise. WHAT YOU CAN EXPECT TODAY Some feelings of bloating in the abdomen. Passage of more gas than usual. Spotting of blood in your stool or on the toilet paper. FOLLOW-UP Your doctor will discuss the results of your test with you. SEEK IMMEDIATE MEDICAL ATTENTION IF: There is more than a spotting of blood in your stool. There is abdominal distention (your abdomen is swollen). Th (more content not included)... Normal [facility] Patient Education - Texton 0 10-06-2022 Patient Education - Text Colonoscopy Care After Surgery Please read the instructions outlined below and refer to this sheet in the next few weeks. These discharge instructions provide you with general information on caring for yourself after you leave the hospital. Your doctor may also give you specific instructions. While your treatment has been planned according to the most current medical practices available, unavoidable complications occasionally occur. If you have any problems or questions after discharge, please call your doctor. ACTIVITY You may resume your regular activity, but move at a slower pace for the next 24 hours. Take frequent rest periods for the next 24 hours. Walking will help get rid of the air and reduce the bloated feeling in your abdomen (belly). No driving for 24 hours (because of the anesthesia (medicine) used during the test). You may shower. Do not sign any important legal documents or operate any machinery for 24 hours (because of the anesthesia used during the test). NUTRITION Drink plenty of fluids. You may resume your normal diet as instructed by your doctor. Begin with a light meal and progress to your normal diet. Heavy or fried foods are harder to digest and may make you feel nauseated (sick to your stomach). Avoid alcoholic beverages for 24 hours or as instructed. MEDICATIONS You may resume your normal medications unless your doctor tells you otherwise. WHAT YOU CAN EXPECT TODAY Some feelings of bloating in the abdomen. Passage of more gas than usual. Spotting of blood in your stool or on the toilet paper. FOLLOW-UP Your doctor will discuss the results of your test with you. SEEK IMMEDIATE MEDICAL ATTENTION IF: There is more than a spotting of blood in your stool. There is abdominal distention (your abdomen is swollen). There is vomiting. You have a temperature over 101.5 F. There is abdominal pain or discomfort that is severe or gets worse throughout the day. Gastroenterology Hemorrhoids Hemorrhoids are swollen veins that may develop: ? In the butt (rectum). These are called internal hemorrhoids. ? Around the opening of the butt (anus). These are called external hemorrhoids. Hemorrhoids can cause pain, itching, or bleeding. Most of the time, they do not cause serious problems. They usually get better with diet changes, lifestyle changes, and other home treatments. What are the causes? This condition may be caused by: ? Having trouble pooping (constipation). ? Pushing hard (straining) to poop. ? Watery poop (diarrhea). ? . ? Being very overweight (obese). ? Sitting for long periods of time. ? Heavy lifting or other activity that causes you to strain. ? Anal sex. ? Riding a bike for a long period of time. What are the signs or symptoms? Symptoms of this condition include: ? Pain. ? Itching or soreness in the butt. ? Bleeding from the butt. ? Leaking poop. ? Swelling in the area. ? One or more lumps around the opening of your butt. How is this diagnosed? A doctor can often diagnose this condition by looking at the affected area. The doctor may also: ? Do an exam that involves feeling the area with a gloved hand (digital rectal exam). ? Examine the area inside your butt using a small tube (anoscope). ? Order blood tests. This may be done if you have lost a lot of blood. ? Have you get a test that involves looking inside the colon using a flexible tube with a camera on the end (sigmoidoscopy or colonoscopy). How is this treated? This condition can usually be treated at home. Your doctor may tell you to change what you eat, make lifestyle changes, or try home treatments. If these do not help, procedures can be done to remove the hemorrhoids or make them smaller. These may involve: ? Placing rubber bands at the base of the hemorrhoids to cut off their blood supply. ? Injecting medicine into the hemorrhoids to shrink them. ? Shining a type of light energy onto the hemorrhoids to cause them to fall off. ? Doing surgery to remove the hemorrhoids or cut off their blood supply. Follow these instructions at home: Eating and drinking ? Eat foods that have a lot of fiber in them. These include whole grains, beans, nuts, fruits, and vegetables. ? Ask your doctor about taking products that have added fiber (fibersupplements). ? Reduce the amount of fat in your diet. You can do this by: ? Eating low-fat dairy products. ? Eating less red meat. ? Avoiding processed foods. ? Drink enough fluid to keep your pee (urine) pale yellow. Managing pain and swelling ? Take a warm-water bath (sitz bath) for 20 minutes to ease pain. Do this 3?4 times a day. You may do this in a bathtub or using a portable sitz bath that fits over the toilet. ? If told, put ice on the painful area. It may be helpful to use ice between your warm baths. ? Put ice in a plas (more content not included)... Normal [facility] Progress Note-Physicianon Progress Note-Physician Patient: EVANGELIST YBARRA Age: 67 years Sex: Male : 1955 Associated Diagnoses: None Author: Berkley JACKSON, Daljit Lujan Postoperative Information Postoperative disposition: Postoperative disposition: To PACU. Optimetrix number: Optimetrix number [id number]. Anesthetic utilized: General. Physical Examination Vital Signs 10/06/2022 9:52 EDT Temperature Temporal Artery 36.5 DegC Heart Rate Monitored 69 bpm Respiratory Rate Monitored 18 br/min Systolic Blood Pressure 127 mmHg Diastolic Blood Pressure 71 mmHg SpO2 100 % Pain Assessment: Pain Assessment 10/06/2022 9:52 EDT Pain Symptoms Self Report No, able to self report . General: Awake, Alert, Appropriate. Respiratory: Adequate air exchange, Equal bilateral chest wall expansion. Cardiovascular: Stable. Neurological: At Baseline. Assessment Anesthetic outcome No anesthetic complications noted. Review / Management Condition: Stable. Plan Transfer/Discharge: Transfer/Discharge Discharge when meets criteria ( To home ). [facility] Comment on above: Result Comment: Elec tronically Signed By: Daljit Gooden MD\.br\Date and Time Signed: 10/06/22 10:02 EDT Progress Note-Physician Patient: EVANGELIST YBARRA Age: 67 years Sex: Male : 1955 Associated Diagnoses: None Author: Daljit Gooden MD Preoperative Information Anesthesia Preop Info: Time patient last ate or drank 10/06/2022 05:00:00. Anesthesia history: Patient history: None. Family history+: None. Informed consent: Signed by patient. Re-evaluation prior to induction: Daljit Gooden MD. Initial evaluation reviewed: No significant change. Review of Systems Eye: Negative. Ear/Nose/Mouth/Throat: Negative. Respiratory: Negative. Cardiovascular: Negative. Gastrointestinal: Negative. Genitourinary: Negative. Hematology/Lymphatics: Negative. Endocrine: Negative. Musculoskeletal: Negative. Neurologic: Negative. Health Status Allergies: Allergies (1) Active Reaction No Known Medication Allergies None Documented Current medications: Home Medications (15) Active atorvastatin 20 mg, Oral, Daily baclofen 10 mg Tab 10 mg = 1 tab(s), Oral, Daily flecainide 100 mg, Oral, q12hr gabapentin hydrochlorothiazide 25 mg oral tablet 25 mg = 1 tab(s), Oral, Daily Immodium A-D 2 mg Cap 1 tab(s), PRN, Oral, q4hr Klor-Con 40 mEq, Oral, BID lisinopril 40 mg, Oral, Daily loratadine 10 mg, Oral, Daily metoprolol tartrate 100 mg Tab 100 mg = 1 tab(s), Oral, Daily Multivitamins and Minerals , Oral, Daily olopatadine 0.7% ophthalmic solution Os-Avery 500 500 mg, Oral, BID Super B Complex 1 tab(s), Oral, Daily warfarin , Medications (2) Active Scheduled: (0) Continuous: (2) Lactated Ringers 1,000 mL 1,000 mL, IV, 100 mL/hr Sodium Chloride 0.9% 1,000 mL 1,000 mL, IV, 20 mL/hr PRN: (0) Problem list: All Problems Apnea, sleep / SNOMED CT 358464424 / Confirmed Arthritis / SNOMED CT 9731105 / Confirmed BPH with urinary obstruction / SNOMED CT 5748732774 / Confirmed Elevated PSA / SNOMED CT 4184186614 / Confirmed Erectile dysfunction / SNOMED CT 8587554728 / Confirmed Family history of colon cancer / SNOMED CT 827441487 / Confirmed Gross hematuria / SNOMED CT 631213227 / Confirmed History of colorectal cancer / SNOMED CT 4290153897 / Confirmed Prostate cancer screening / SNOMED CT 371384885 / Confirmed, Active Problems (9) Apnea, sleep Arthritis BPH with urinary obstruction Elevated PSA Erectile dysfunction Family history of colon cancer Gross hematuria History of colorectal cancer Prostate cancer screening Histories Social History Social & Psychosocial Habits Alcohol 03/26/2019 Risk Assessment: Denies Alcohol Use Substance Abuse 04/16/2020 Risk Assessment: Denies Substance Abuse Tobacco 04/16/2020 Risk Assessment: Denies Tobacco Use 07/29/2022 Tobacco Use: Never (less than 100 in l Smokeless tobacco use: Never . Physical Examination Vital Signs 10/06/2022 8:21 EDT Temperature Temporal Artery 36.6 DegC Heart Rate Monitored 89 bpm Respiratory Rate Monitored 16 br/min Systolic Blood Pressure 145 mmHg HI Diastolic Blood Pressure 78 mmHg Blood Pressure Location Left arm SpO2 97 % Measurements from flowsheet : Measurements 10/06/2022 8:20 EDT Height/Length Measured 183.8 cm Height/Length Dosing 183.8 cm Weight Dosing 145.3 kg BSA Measured 2.72 m2 Body Mass Index Measured 43.01 kg/m2 Weight Measured 145.3 kg Airway: Mallampati classification: II (soft palate, fauces, uvula visible). Distance: Thyromental, Adequate. Respiratory: Lungs are clear to auscultation, Symmetrical chest wall expansion. Cardiovascular: Regular rhythm, Good pulses equal in all extremities. Gastrointestinal: Soft, Non-tender. Plan [place] [employer] (ASA) physical status classification: Class III. Anesthetic Preoperative Plan: Anesthesia General. Normal [facility] Comment on above: Result Comment: Elec tronically Signed By: Berkley JACKSON, Daljit Reaves.branden\Date and Time Signed: 10/06/22 09:49 EDT CBC AUTO DIFFon 2022 BASO # 0.0 103/ul Normal 0.0-0.1 [facility] Comment on above: Performed By: #### C BC #### [facility] [address] [place] [address] Dr. Jason Pearson Basophils/100 WBC (Bld) 0.7 % Normal 0.2-2.0 [facility] Comment on above: Performed By: #### C BC #### [facility] [address] [place] [address] Dr. Jason Pearson EO # 0.2 103/ul Normal 0.0-0.7 [facility] Comment on above: Performed By: #### C BC #### [facility] [address] [place] [address] Dr. Jaosn Pearson Eosinophils/100 WBC (Bld) 3.7 % Normal 0.9-7.0 [facility] Comment on above: Performed By: #### C BC #### [facility] [address] [place] [address] Dr. Jason Pearson Erythrocyte distribution width (RBC) [Ratio] 14.0 % Normal 11.0-15.0 [facility] Comment on above: Performed By: #### C BC #### [facility] [address] [place] [address] Dr. Jason Pearson Hematocrit (Bld) [Volume fraction] 41.0 % Critically low 42.0-54.0 [facility] Comment on above: Performed By: #### C BC #### [facility] [address] [place] [address] Dr. Jason Pearson Hemoglobin (Bld) [Mass/Vol] 13.8 g/dL Critically low 14.0-18.0 [facility] Comment on above: Performed By: #### C BC #### [facility] [address] [place] [address] Dr. Jason Pearson IG # 0.01 10e3/ul Normal 0.00-0.03 [facility] Comment on above: Performed By: #### C BC #### [facility] [address] [place] [address] Dr. Jason Pearson IG % 0.2 % Normal 0.0-0.5 [facility] Comment on above: Performed By: #### C BC #### [facility] [address] [place] [address] Dr. Jason Pearson LYMPH # 1.3 103/ul Normal 1.2-3.8 [facility] Comment on above: Performed By: #### C BC #### [facility] [address] [place] [address] Dr. Jason Pearson Lymphocytes/100 WBC (Bld) 22.3 % Normal 20.5-60.0 [facility] Comment on above: Performed By: #### C BC #### [facility] [address] [place] [address] Dr. Jason Pearson MANUAL DIFF REQ NO Normal [facility] Comment on above: Performed By: #### C BC #### [facility] [address] [place] [address] Dr. Jason Pearson MCH (RBC) [Entitic mass] 32.6 pg Normal 25.9-34.0 [facility] Comment on above: Performed By: #### C BC #### [facility] [address] [place] [address] Dr. Jason Pearson MCHC (RBC) [Mass/Vol] 33.7 g/dL Normal 29.9-35.2 [facility] Comment on above: Performed By: #### C BC #### [facility] [address] [place] [address] Dr. Jason Pearson MCV (RBC) [Entitic vol] 96.9 fL Critically high 80.0-94.0 [facility] Comment on above: Performed By: #### C BC #### [facility] [address] [place] [address] Dr. Jason Pearson MONO # 0.6 103/ul Normal 0.3-0.8 [facility] Comment on above: Performed By: #### C BC #### [facility] [address] [place] [address] Dr. Jason Pearson Monocytes/100 WBC (Bld) 10.5 % Normal 1.7-12.0 [facility] Comment on above: Performed By: #### C BC #### [facility] [address] [place] [address] Dr. Jason Pearson NEUT # 3.7 103/ul Normal 1.4-6.5 [facility] Comment on above: Performed By: #### C BC #### [facility] [address] [address] [address] Jason Pearson Neutrophils/100 WBC (Bld) 62.6 % Normal 43.0-75.0 [facility] Comment on above: Performed By: #### C BC #### [facility] [address] [address] [address] Jason Pearson Platelet mean volume (Bld) [Entitic vol] 9.9 fL Normal 9.5-13.5 [facility] Comment on above: Performed By: #### C BC #### [facility] [address] [address] [address] Jason Pearson PLT 181 103/ul Normal 150-450 [facility] Comment on above: Performed By: #### C BC #### [facility] [address] [address] [address] Jason Pearsno RBC 4.23 106/ul Critically low 4.70-6.10 [facility] Comment on above: Performed By: #### C BC #### [facility] [address] [address] [address] Jason Pearson WBC 5.9 103/ul Normal 4.0-11.0 [facility] Comment on above: Performed By: #### C BC #### [facility] [address] [address] [address] Jason Pearson LIPID PROFILEon 2022 CHOL-HDL RATIO NORM SEE BELOW Normal [facility] Comment on above: Result Comment: 3.3 - 4.4 LOW RISK 4.4 - 7.1 AVERAGE RISK 7.1 - 11.0 MODERATE RISK >11.0 HIGH RISK Performed By: #### C MP, LIPID ####[facility] [address] [place] [address]Dr. Jason Pearson Cholesterol [Mass/Vol] 163 mg/dL Normal <=200 [facility] Comment on above: Performed By: #### C MP, LIPID ####[facility] [address] [place], [place] [address]Sw. Jason Pearson Cholesterol in HDL [Mass/Vol] 49 mg/dL Normal 40-60 [facility] Comment on above: Performed By: #### C MP, LIPID ####[facility] [address] [place], [place] [address]N[address]. Jason Pearson Cholesterol in LDL [Mass/Vol] 74.6 mg/dL Normal [facility] Comment on above: Performed By: #### C MP, LIPID ####[facility] [address] [place] [id number]. Deboraradha Pearson Cholesterol.total/C holesterol in HDL [Mass ratio] 3.3 {ratio} Normal [facility] Comment on above: Performed By: #### C MP, LIPID ####[facility] [address] [place] [id number]. Jason Pearson HDL NORMAL > or = 60 mg/dl - LO W CARDIOVASCULAR RISK <40 mg/dl - HIGH CARDIOVASCULAR RISK Normal [facility] Comment on above: Performed By: #### C MP, LIPID ####[facility] [address] [place] [id number]. Deboraradha Pearson LDL CALC NORMAL SEE BELOW Normal [facility] Comment on above: Result Comment: <100 mg/dl OPTIMAL 100 - 129 mg/dl NEAR OR ABOVE OPTIMAL 130 - 159 mg/dl BORDERLINE HIGH 160 - 189 mg/dl HIGH >190 mg/dl VERY HIGH Performed By: #### C MP, LIPID ####[facility] [address] [place] [id number]. Jason Pearson Triglyceride [Mass/Vol] 197 mg/dL Critically high <=150 [facility] Comment on above: Performed By: #### C MP, LIPID ####[facility] [address] [place] [id number]. Deboraradha Pearson VLDL CALC 39.4 mg/dL Normal [facility] Comment on above: Performed By: #### C MP, LIPID ####[facility] [address] [place] [id number]. Jason Pearson MICROALBUMIN, RAND URon 03-0 mALB 1.3 mg/L Normal <=30.0 [facility] Comment on above: Performed By: #### M ALBR ####[facility] [address] [place] [address]Dr. Jason Pearson PROF 14(COMP METB)on 023 Albumin [Mass/Vol] 3.7 g/dL Normal 3.4-5.0 [facility] Comment on above: Performed By: #### C MP, LIPID #### [facility] [address] [address] [address] Jason Pearson Albumin/Globulin [Mass ratio] 1.0 {ratio} Normal [facility] Comment on above: Performed By: #### C MP, LIPID #### [facility] [address] [address] [address] Jason Pearson ALP [Catalytic activity/Vol] 56 U/L Normal 46-116 [facility] Comment on above: Performed By: #### C MP, LIPID #### [facility] [address] [address] [address] Jason Pearson ALT [Catalytic activity/Vol] 43 U/L Normal 16-63 [facility] Comment on above: Performed By: #### C MP, LIPID #### [facility] [address] [place] [address] Dr. Jason Pearson Anion gap [Moles/Vol] 11.2 mmol/L Normal [facility] Comment on above: Performed By: #### C MP, LIPID #### [facility] [address] [address] [address] Jason Pearson AST [Catalytic activity/Vol] 24 U/L Normal 15-37 [facility] Comment on above: Performed By: #### C MP, LIPID #### [facility] [address] [address] [address] Jason Pearson Bilirubin [Mass/Vol] 0.9 mg/dL Normal 0.2-1.0 [facility] Comment on above: Performed By: #### C MP, LIPID #### [facility] [address] [place] [address] Dr. Jason Pearson Calcium [Mass/Vol] 9.6 mg/dL Normal 8.5-10.1 [facility] Comment on above: Performed By: #### C MP, LIPID #### [facility] [address] [place] [address] Dr. Jason Pearson Chloride [Moles/Vol] 106 mmol/L Normal 98-107 [facility] Comment on above: Performed By: #### C MP, LIPID #### [facility] [address] [place] [address] Dr. Jason Pearson CO2 [Moles/Vol] 30.1 mmol/L Normal 21.0-32.0 [facility] Comment on above: Performed By: #### C MP, LIPID #### [facility] [address] [place] [address] Dr. Jason Pearson Creatinine [Mass/Vol] 1.00 mg/dL Normal 0.70-1.30 [facility] Comment on above: Performed By: #### C MP, LIPID #### [facility] [address] [place] [address] Dr. Jason Pearson EGFR-AF NAMIBIAN >60 Normal >=60 [facility] Comment on above: Performed By: #### C MP, LIPID #### [facility] [address] [place] [address] Dr. Jason Pearson EGFR-NON AF NAMIBIAN >60 Normal >=60 [facility] Comment on above: Performed By: #### C MP, LIPID #### [facility] [address] [place] [address] Dr. Jason Pearson Globulin (S) [Mass/Vol] 3.6 g/dL Normal [facility] Comment on above: Performed By: #### C MP, LIPID #### [facility] [address] [place] [address] Dr. Jason Pearson Glucose [Mass/Vol] 110 mg/dL Critically high 74-106 [facility] Comment on above: Performed By: #### C MP, LIPID #### [facility] [address] [place] [address] Dr. Jason Pearson Potassium [Moles/Vol] 4.3 mmol/L Normal 3.5-5.1 [facility] Comment on above: Performed By: #### C MP, LIPID #### [facility] [address] [place] [address] Dr. Jason Pearson Protein [Mass/Vol] 7.3 g/dL Normal 6.4-8.2 [facility] Comment on above: Performed By: #### C MP, LIPID #### [facility] [address] [address] [address] Jason Pearson Sodium [Moles/Vol] 143 mmol/L Normal 136-145 [facility] Comment on above: Performed By: #### C MP, LIPID #### [facility] [address] [place] [address] Dr. Jason Pearson Urea nitrogen [Mass/Vol] 15.0 mg/dL Normal 7.0-18.0 [facility] Comment on above: Performed By: #### C MP, LIPID #### [facility] [address] [place] [address] Dr. Jason Pearson Urea nitrogen/Creatinine [Mass ratio] 15.0 mg/mg Normal [facility] Comment on above: Performed By: #### C MP, LIPID #### [facility] [address] [place] [address] Dr. Jason Pearson Physician Referralon 023 Physician Referral [id number]:127 Normal [facility] Consent for Procedure/Surger yon 08-01-2022 Consent for Procedure/Surgery [id number]:127 Normal [facility] Ambulatory Visit Summaryon 0 07-29-2022 Ambulatory Visit Summary EVANGELIST YBARRA :1955 Visit Date:07/29/2022 Ambulatory Visit Instructions Your Diagnosis History of colorectal cancer Family history of colon cancer Your Care Team Attending Physician - Hipolito CARLSON, Elicia A Primary Care Physician - DONALD LIZARRAGA MD This Is Your Medications List magnesium sulfate/potass Cl/sodium sulf (Sutab oral tablet) Contact prescribing physician if questions or concerns atorvastatin baclofen (baclofen 10 mg Tab) calcium carbonate (Os-Avery 500) flecainide gabapentin hydrochlorothiazide (hydrochlorothiazide 25 mg oral tablet) lisinopril loperamide (Immodium A-D 2 mg Cap) loratadine metoprolol (metoprolol tartrate 100 mg Tab) multivitamin (Super B Complex) multivitamin with minerals (Multivitamins and Minerals) olopatadine ophthalmic (olopatadine 0.7% ophthalmic solution) potassium chloride (Klor-Con) warfarin Procedures Performed TURP - Transurethral resection of prostate (04/23/2020), Transrectal biopsy of prostate using ultrasound (US) guidance (07/19/2018), EGD - Esophagogastroduodenoscopy (12/21/2017), Colonoscopy, Excision of cyst, Nerve blocks in lower limb, Special back care. Discharge Vitals Temperature (Temporal Artery) 36.6 ?C Heart Rate (Peripheral) 77 Blood Pressure 138/88 Height 72 in Height 183.8 cm Weight 319.66 lb Weight 145.3 kg BMI 43.01 What to do next Scheduled Follow-Up Appointments 2022 9:00 AM EDT With: Where: [facility] Monday 9:45 AM EDT With: Kun Cole MD, Min Villagomez Where: [facility] Gastroenterology Office/Clin ic Noteon 07-29-2022 Gastroenterology Office/Clinic Note Chief Complaint Colonoscopy recheck HPI Staff Patient is a 66 year old male here to schedule a colonoscopy recheck. His list colonoscopy/ EGD was 12/21/2017. History of Present Illness Patient is a 66-year-old male who presents for colonoscopy. Review of record indicates patient with history of colorectal cancer in 2013. Patient had previous colonoscopy 12/[address] Bunch that revealed status post right hemicolectomy, normal new terminal ileum, mildly erythematous anastomotic ulcer?biopsy revealed acute chronic inflammation, erosions, and granulation tissue, colonoscopy also revealed hemorrhoids. PMH of HTN, HLD- managed by patient's PCP. Family history of colon cancer: Patient's mother. Family history of colon polyps: Unknown per patient. Personal history of colon cancer: yes, see above. Personal history of colon polyps: Denies. Takes Coumadin daily- will request hold time recommendations from prescribing provider prior to colonoscopy. During today's visit, patient reports he is doing well. Explains occasional diarrhea depending on what he eats. He explains he recently stopped drinking milk and has improved gas/bloating he was having previously. Denies change in bowel habits, denies black/bloody stools, and denies unintentional weight loss. Denies having any other GI complaints. Review of Systems PHQ Score Initial Depression Screen Score: 0 ROS - Provider Constitutional: no fever, no chills. Skin: no Jaundice. ENMT: Denies dysphagia and heartburn. Respiratory: no shortness of breath. Cardiovascular: no chest pain. Gastrointestinal: no nausea, no vomiting, occasional diarrhea, no GI bleeding. Physical Exam Vitals & Measurements T: 36.6 ?C(Temporal Artery) HR: 77(Peripheral) BP: 138/88 HT: 72 in HT: 183.8 cm WT: 145.3 kg WT: 319.66 lb BMI: 43.01 General: Well developed, well nourished, in no acute distress Head: Normocephalic/atraumatic Lungs: Normal respiratory effort and clear to auscultation Cardio: Regular rate and rhythm, normal S1 and S2, no murmur, no rub Abdomen: Soft, non-distended, non-tender. Normoactive bowel sounds present in all 4 abdominal quadrants, bilaterally. Mental Status: Alert and oriented x3. Normal mood and affect Assessment/Plan 1. History of colorectal cancer (Z85.048: Personal history of other malignant neoplasm of rectum, rectosigmoid junction, and anus) History of colorectal cancer per review of record. Previous colonoscopy 12/2017 revealed status post right hemicolectomy, normal new terminal ileum, mildly erythematous anastomotic ulcer?biopsy revealed acute chronic inflammation, erosions, and granulation tissue- see HPI for further details regarding. Ordered Colonoscopy. Takes Coumadin daily- will request hold time recommendations from prescribing provider prior to colonoscopy. Ordered: Colonoscopy (Hospital Procedure) 2. Family history of colon cancer (Z80.0: Family history of malignant neoplasm of digestive organs) FH colon cancer- patient's mother. Previous colonoscopy 12/2017 revealed status post right hemicolectomy, normal new terminal ileum, mildly erythematous anastomotic ulcer?biopsy revealed acute chronic inflammation, erosions, and granulation tissue- see HPI for further details regarding. Ordered Colonoscopy. Takes Coumadin daily- will request hold time recommendations from prescribing provider prior to colonoscopy. Ordered: Colonoscopy (Hospital Procedure) Orders: magnesium sulfate/potass Cl/sodium sulf, See Instructions, 1 EA, Refill(s) 0, KP, Please follow instructions per packaging and physician's handout, [facility]/pharmacy #[id number], 183.8, cm, 07/29/22 14:15:00 EST, Height/Length Dosing, 145.3, kg, 07/29/22 14:15:00 EST, Weight Dosing Follow-up With When Contact Information Elicia Mcmillan CNP Within 1 to 2 weeks Additional Instructions: Following colonoscopy. Patient Education Colonoscopy, Adult Problem List/Past Medical History Ongoing Arthritis BPH with urinary obstruction Elevated PSA Erectile dysfunction Family history of colon cancer Gross hematuria History of colorectal cancer Prostate cancer screening Historical Asymptomatic microscopic hematuria Frequent urination Hematuria Incomplete bladder emptying Nocturia Urinary urgency Procedure/Surgical History TURP - Transurethral resection of prostate (04/23/2020), Transrectal biopsy of prostate using ultrasound (US) guidance (07/19/2018), EGD - Esophagogastroduodenoscopy (12/21/2017), Colonoscopy, Excision of cyst, Nerve blocks in lower limb, Special back care. Medications atorvastatin, 20 mg, Oral, Daily baclofen 10 mg Tab, 10 mg= 1 tab(s), Oral, Daily flecainide, 100 mg, Oral, q12hr gabapentin hydrochlorothiazide 25 mg oral tablet, 25 mg= 1 tab(s), Oral, Daily Immodium A-D 2 mg Cap, 1 tab(s), Oral, q4hr, PRN, Not taking influenza virus vaccine, inactivated HIGH-DOSE preservative-free intramuscular suspension FT Rule H, 0.7 mL, IntraMuscular, Once (more content not included)... Normal [facility] Comment on above: Result Comment: Elec tronically Signed By: Elicia Mcmillan CNP\.br\Date and Time Signed: 07/29/22 14:32 EST Patient Educationon 07-29-19 Patient Education Radiology Colonoscopy, Adult A colonoscopy is an exam to look at the entire large intestine. During the exam, a lubricated, flexible tube that has a camera on the end of it is inserted into the anus and then passed into the rectum, colon, and other parts of the large intestine. You may have a colonoscopy as a part of normal colorectal screening or if you have certain symptoms, such as: ? Lack of red blood cells (anemia). ? Diarrhea that does not go away. ? Abdominal pain. ? Blood in your stool (feces). A colonoscopy can help screen for and diagnose medical problems, including: ? Tumors. ? Polyps. ? Inflammation. ? Areas of bleeding. Tell a health care provider about: ? Any allergies you have. ? All medicines you are taking, including vitamins, herbs, eye drops, creams, and agra-ooj-ukhdyrf medicines. ? Any problems you or family members have had with anesthetic medicines. ? Any blood disorders you have. ? Any surgeries you have had. ? Any medical conditions you have. ? Any problems you have had passing stool. What are the risks? Generally, this is a safe procedure. However, problems may occur, including: ? Bleeding. ? A tear in the intestine. ? A reaction to medicines given during the exam. ? Infection (rare). What happens before the procedure? Eating and drinking restrictions Follow instructions from your health care provider about eating and drinking, which may include: ? A few days before the procedure ? follow a low-fiber diet. Avoid nuts, seeds, dried fruit, raw fruits, and vegetables. ? 1?3 days before the procedure ? follow a clear liquid diet. Drink only clear liquids, such as clear broth or bouillon, black coffee or tea, clear juice, clear soft drinks or sports drinks, gelatin dessert, and popsicles. Avoid any liquids that contain red or purple dye. ? On the day of the procedure ? do not eat or drink anything starting 2 hours before the procedure, or within the time period that your health care provider recommends. Up to 2 hours before the procedure, you may continue to drink clear liquids, such as water or clear fruit juice. Bowel prep If you were prescribed an oral bowel prep to clean out your colon: ? Take it as told by your health care provider. Starting the day before your procedure, you will need to drink a large amount of medicated liquid. The liquid will cause you to have multiple loose stools until your stool is almost clear or light green. ? If your skin or anus gets irritated from diarrhea, you may use these to relieve the irritation: ? Medicated wipes, such as adult wet wipes with aloe and vitamin E. ? A skin-soothing product like petroleum jelly. ? If you vomit while drinking the bowel prep, take a break for up to 60 minutes and then begin the bowel prep again. If vomiting continues and you cannot take the bowel prep without vomiting, call your health care provider. ? To clean out your colon, you may also be given: ? Laxative medicines. ? Instructions about how to use an enema. General instructions ? Ask your health care provider about: ? Changing or stopping your regular medicines or supplements. This is especially important if you are taking iron supplements, diabetes medicines, or blood thinners. ? Taking medicines such as aspirin and ibuprofen. These medicines can thin your blood. Do not take these medicines before the procedure if your health care provider tells you not to. ? Plan to have someone take you home from the hospital or clinic. What happens during the procedure? ? An IV may be inserted into one of your veins. ? You will be given medicine to help you relax (sedative). ? To reduce your risk of infection: ? Your health care team will wash or sanitize their hands. ? Your anal area will be washed with soap. ? You will be asked to lie on your side with your knees bent. ? Your health care provider will lubricate a long, thin, flexible tube. The tube will have a camera and a light on the end. ? The tube will be inserted into your anus. ? The tube will be gently eased through your rectum and colon. ? Air will be delivered into your colon to keep it open. You may feel some pressure or cramping. ? The camera will be used to take images during the procedure. ? A small tissue sample may be removed to be examined under a microscope (biopsy). ? If small polyps are found, your health care provider may remove them and have them checked for cancer cells. ? When the exam is done, the tube will be removed. The procedure may vary among health care providers and hospitals. What happens after the procedure? ? Your blood pressure, heart rate, breathing rate, and blood oxygen level will be monitored until the medicines you were given have worn off. ? Do not drive for 24 hours after the exam. ? You may have a small amount of blood in your stool. ? You may pass gas and have mild abdominal cramping or bloating due to the air t (more content not included)... Normal [facility] Historical Records Officeon 07-28-2022 Historical Records Office [id number]:127 Normal [facility] PROTIMEon 06-28-2022 INR Coag (PPP) [Relative time] 1.11 {INR} Normal [facility] Comment on above: Performed By: #### P T ####[facility] [id number] [address]Dr. Jason Pearson INR GUIDELINES SEE BELOW Normal [facility] Comment on above: Result Comment: KOFI RED INR: 2.0 - 3.0 CONDITIONS NOT LISTED BELOW 2.5 - 3.5 FOR PROSTHETIC HEART VALVE REPLACEMENT 2.5 - 3.5 RECURRENT THROMBOSIS Performed By: #### P T ####[facility] [id number] [address]Dr. Jason Pearson PT Coag (PPP) [Time] 11.9 s Critically high 9.0-11.6 [facility] Comment on above: Performed By: #### P T ####[facility] [address] [address]Dr. Jason Pearson Telephone Encounteron 2021 [employer] Authentication Interface Message Text Pain mgmt from [facility] faxing over Clearance for surgery to hold coumadin 5 days prior Date to be determined SI joint inj Placed in provider's door pocket for review/completion Fax back to: [phone] Normal [facility] [employer] [facility] PROTIMEon 03-22-2022 INR Coag (PPP) [Relative time] 1.32 {INR} Normal [facility] Comment on above: Performed By: #### P T #### [facility] [address] [address] [address] Jason Pearson INR GUIDELINES SEE BELOW Normal [facility] Comment on above: Result Comment: KOFI RED INR: 2.0 - 3.0 CONDITIONS NOT LISTED BELOW 2.5 - 3.5 FOR PROSTHETIC HEART VALVE REPLACEMENT 2.5 - 3.5 RECURRENT THROMBOSIS Performed By: #### P T #### [facility] [address] [address] [address] Jason Pearson PT Coag (PPP) [Time] 14.0 s Critically high 9.0-11.6 [facility] Comment on above: Performed By: #### P T #### [facility] [address] [place] [address] Dr. Jason Pearson PROTIMEon 02-07-2022 INR Coag (PPP) [Relative time] 1.08 {INR} Normal [facility] Comment on above: Performed By: #### P T #### [facility] [address] [place] [address] Dr. Jason Pearson INR GUIDELINES SEE BELOW Normal [facility] Comment on above: Result Comment: KOFI RED INR: 2.0 - 3.0 CONDITIONS NOT LISTED BELOW 2.5 - 3.5 FOR PROSTHETIC HEART VALVE REPLACEMENT 2.5 - 3.5 RECURRENT THROMBOSIS Performed By: #### P T #### [facility] [address] [place] [address] Dr. Jason Pearson PT Coag (PPP) [Time] 11.6 s Normal 9.0-11.6 [facility] Comment on above: Performed By: #### P T #### [facility] [address] [place] [address] Dr. Jason Pearson XR HIP RT INJon 02-07-2022 XR HIP RT INJ EXAMINATION: XR HIP RT INJ HISTORY: Osteoarthritis COMPARISON: No relevant comparison available. FLUOROSCOPY TIME: Fluoro time measures 0.7 minutes and 4 images were obtained. TECHNIQUE: A joint injection was performed in the usual sterile manner after obtaining informed consent. Standard level fluoroscopic mode of operation utilized. FINDINGS: JOINT: Right hip. NEEDLE: 22 gauge, 3.5 spinal needle. MEDICATION: 2cc buffered 1% lidocaine for subcutaneous anesthesia 2cc Omnipaque-300 iodinated contrast to visualize the joint space Mixture of Kenalog 40 mg, 0.5% Bupivacaine 2 mL and Omnipaque 300 7mL was injected into the joint space. TECHNIQUE: Anterior approach with prior localization of the femoral artery. A single stick was successful in gaining access to the joint space. CLINICAL: Pain level remained the same pre and post injection (3/10). COMPLICATIONS: None. OTHER: Negative. IMPRESSION: 1. Technically successful right hip injection without any immediate pain relief. Clinical follow-up recommended. Electronically authenticated by: RUPERT MOON Date: 2022-02-07 11:09 Normal [facility] Initial Visit (Gastroenterol ogy)on 03-28-2018 Initial Visit (Gastroenterology) Chief ComplaintReferral from Dr. Bunch, for bump found during colonoscopy/endoscopy. History of Present IllnessReferred by Dr. Kay Macedo for a lesion in the duodenumProximal colon resection for early colon cancer with redo surgery for an anastomotic stenosis 2015 about 10 days apart Routine EGD for GERD found an 8 mm submucosal lesion in the second portion of the duodenumSince surgery he has had diarrhea with many foods; no better with Metamucil and Imodium No evidence of weight loss, flushing or nocturnal diarrhea Review of Systemsa 13 point review of systems was obtained from the patient and documented on the [facility] health history questionnaire. Pertinent positives and negatives are detailed in the history of present illness. Please see scanned records dated for today for the full review of systems. Past Medical History History of atrial fibrillation (V12.59) (Z86.79) History of hypertension (V12.59) (Z86.79) History of malignant neoplasm of colon (V10.05) (Z85.038) Family History Family history of liver cancer (V16.0) (Z80.0) Family history of lung cancer (V16.1) (Z80.1) Social History Never a smoker No alcohol use Allergies No Known Drug Allergies Recorded By: Michelle Rodriguez; 03/28/2018 9:14:43 AM Current Meds Atorvastatin Calcium 20 MG Oral Tablet; TAKE 1 TABLET DAILY;Therapy: (Recorded:[id number]) to Recorded Dispense: 0 Days ; #: Sufficient Tablet; Refill: 0; KP = N; Record; Last Updated By: Toyin Angeles; 03/28/2018 9:14:26 AM Flecainide Acetate 100 MG Oral Tablet; TAKE 1 TABLET EVERY 12 HOURS DAILY;Therapy: (Recorded:[id number]) to Recorded Dispense: 0 Days ; #: Sufficient Tablet; Refill: 0; KP = N; Record; Last Updated By: Toyin Angeles; 03/28/2018 9:14:26 AM HydroCHLOROthiazide 25 MG Oral Tablet; TAKE 1 TABLET DAILY;Therapy: (Recorded:[id number]) to Recorded Dispense: 0 Days ; #: Sufficient Tablet; Refill: 0; KP = N; Record; Last Updated By: Toyin Angeles; 03/28/2018 9:14:26 AM Imodium A-D CAPS;Therapy: (Recorded:[id number]) to Recorded Dispense: 0 Days ; #: Sufficient CAPS; Refill: 0; KP = N; Record; Last Updated By: Toyin Angeles; 03/28/2018 9:14:26 AM Klor-Con M20 20 MEQ Oral Tablet Extended Release; TAKE 2 TABLETS TWICE DAILY;Therapy: (Recorded:[id number]) to Recorded Dispense: 0 Days ; #: Sufficient Tablet Extended Release; Refill: 0; KP = N; Record; Last Updated By: Toyin Angeles; 03/28/2018 9:14:26 AM Lisinopril 40 MG Oral Tablet; TAKE 1 TABLET DAILY;Therapy: (Recorded:[id number]) to Recorded Dispense: 0 Days ; #: Sufficient Tablet; Refill: 0; KP = N; Record; Last Updated By: Toyin Angeles; 03/28/2018 9:14:26 AM Loratadine 10 MG Oral Tablet; TAKE 1 TABLET DAILY;Therapy: (Recorded:[id number]) to Recorded Dispense: 0 Days ; #: Sufficient Tablet; Refill: 0; KP = N; Record; Last Updated By: Toyin Angeles; 03/28/2018 9:14:26 AM Metoprolol Tartrate 100 MG Oral Tablet; TAKE 1 TABLET DAILY;Therapy: (Recorded:[id number]) to Recorded Dispense: 0 Days ; #: Sufficient Tablet; Refill: 0; KP = N; Record; Last Updated By: Toyin Angeles; 03/28/2018 9:14:26 AM Multivitamins TABS;Therapy: (Recorded:[id number]) to Recorded Dispense: 0 Days ; #: Sufficient TABS; Refill: 0; KP = N; Record; Last Updated By: Toyin Angeles; 03/28/2018 9:14:26 AM Tamsulosin HCl - 0.4 MG Oral Capsule;Therapy: (Recorded:28Mar2018) to Recorded Dispense: 0 Days ; #: Sufficient Capsule; Refill: 0; KP = N; Record; Last Updated By: Toyin Angeles; 03/28/2018 9:14:26 AM Vitamin B-12 ER 1500 MCG Oral Tablet Extended Release;Therapy: (Recorded:28Mar2018) to Recorded Dispense: 0 Days ; #: Sufficient TBCR; Refill: 0; KP = N; Record; Last Updated By: Toyin Angeles; 03/28/2018 9:14:26 AM Vitamin D3 2000 UNIT Oral Tablet;Therapy: (Recorded:28Mar2018) to Recorded Dispense: 0 Days ; #: Sufficient Tablet; Refill: 0; KP = N; Record; Last Updated By: Toyin Angeles; 03/28/2018 9:14:26 AM Warfarin Sodium 5 MG Oral Tablet; TAKE 1 TABLET DAILY;Therapy: (Recorded:28Mar2018) to Recorded Dispense: 0 Days ; #: Sufficient Tablet; Refill: 0; KP = N; Record; Last Updated By: Toyin Angeles; 03/28/2018 9:14:26 AM Vitals Vital Signs Recorded: 28Mar2018 09:12AMHeart Potq97Gtasyhyplrf01Vufpuqbm36 5Zsovtsffb10Xnfjol0 ft 2 lrHtupfn704 lb 6 ozBMI Hyviobndud21.52BSA Calculated2.67 Physical ExamConstitutional General appearance: In no acute distress. Abdomen Obese. 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) OrdersBile salt-induced diarrhea Start: Cholestyramine Light 4 GM Oral Packet; MIX THE CONTENTS OF 1 POWDERPACKET WITH 2-6 OZ OF NONCARBONATED BEVERAGE AND SWALLOW ONCEDAILY Rx By: Devin Greer; Dispense: 30 Days ; #:30 Packet; Refill: 11;For: Bile salt-induced diarrhea; KP = N; Verified Transmission to [id number]; Last Updated By: [employer]; 03/28/2018 9:44:38 AM Provider ImpressionsSubmucosal duodenal lesion is likely benign but EUS is reasonableDiarrhea due to colonic resectionPlanDiscussed EUS risks and benefitsTrial of cholestyramine offered Patient Discussion/SummaryYour records show a small submucosal or subepithelial nodule in the second portion of the duodenum (approximately 2 inches into the small intestine past the stomach). The lumps in these areas are usually benign and further testing with an endoscopic ultrasound is reasonable. Please try cholestyramine for your diarrhea symptoms and follow your Coumadin INR level closely. End of Encounter MedsAtorvastatin Calcium 20 MG Oral Tablet; TAKE 1 TABLET DAILY;Therapy: (Recorded:[id number]) to RecordedCholestyramine Light 4 GM Oral Packet; MIX THE CONTENTS OF 1 POWDER PACKETWITH 2-6 OZ OF NONCARBONATED BEVERAGE AND SWALLOW ONCE DAILY;Therapy: [id number] to (Evaluate:81Cnd7842) Requested for: [id number]; LastRx:[id number] OrderedFlecainide Acetate 100 MG Oral Tablet; TAKE 1 TABLET EVERY 12 HOURS DAILY;Therapy: (Recorded:97Lch1993) to RecordedHydroCHLOROthiazide 25 MG Oral Tablet; TAKE 1 TABLET DAILY;Therapy: (Recorded:[id number]) to RecordedImodium A-D CAPS (Loperamide HCl);Therapy: (Recorded:11Vlt4062) to RecordedKlor-Con M20 20 MEQ Oral Tablet Extended Release; TAKE 2 TABLETS TWICE DAILY;Therapy: (Recorded:16Npo9609) to RecordedLisinopril 40 MG Oral Tablet; TAKE 1 TABLET DAILY;Therapy: (Recorded:92Gvo9880) to RecordedLoratadine 10 MG Oral Tablet; TAKE 1 TABLET DAILY;Therapy: (Recorded:92Ary3980) to RecordedMetoprolol Tartrate 100 MG Oral Tablet; TAKE 1 TABLET DAILY;Therapy: (Recorded:00Wtb8320) to RecordedMultivitamins TABS;Therapy: (Recorded:95Hgu0234) to RecordedTamsulosin HCl - 0.4 MG Oral Capsule;Therapy: (Recorded:73Sde4739) to RecordedVitamin B-12 ER 1500 MCG Oral Tablet Extended Release;Therapy: (Recorded:58Qwm9097) to RecordedVitamin D3 2000 UNIT Oral Tablet;Therapy: (Recorded:71Aqi8047) to RecordedWarfarin Sodium 5 MG Oral Tablet; TAKE 1 TABLET DAILY;Therapy: (Recorded:92Kex3029) to Recorded Signatures Electronically signed by : Devin Greer DO; Mar 28 2018 9:51AM EST (Author) Normal [employer] Vital Signs Date Time Vital Sign Value Performing Clinician Facility 07-13-2023 15:30-0500 Body height 187.96 cm Donald Lizarraga Other [facility] Other 07-13-2023 15:30-0500 Body mass index (BMI) [Ratio] 40.18 kg/m2 Donald Lizarraga Other [facility] Other 07-13-2023 15:30-0500 Body weight 141.98 kg Donald Lizarraga Other [facility] Other 07-13-2023 15:30-0500 Diastolic blood pressure 86 mm[Hg] Donald Lizarraga Other [facility] Other 07-13-2023 15:30-0500 Systolic blood pressure 142 mm[Hg] Donald Lizarraga Other [facility] Other 01-24-2023 10:00-0400 Blood Pressure Location CATHIE HERNANDEZ [facility] 01-24-2023 10:00-0400 Diastolic blood pressure 80 mm[Hg] CATHIE HERNANDEZ [facility] 01-24-2023 10:00-0400 Heart rate 72 /min CATHIE TIANA [facility] 01-24-2023 10:00-0400 Respiratory rate 16 /min CATHIE TIANA [facility] 01-24-2023 10:00-0400 Systolic blood pressure 130 mm[Hg] CATHIE TIANA [facility] 10-06-2022 10:17-0400 Diastolic blood pressure 78 mm[Hg] [facility] 10-06-2022 10:17-0400 Heart rate 69 /min [facility] 10-06-2022 10:17-0400 Respiratory rate 16 /min [facility] 10-06-2022 10:17-0400 SaO2% (BldA) [Mass fraction] 99 % [facility] 10-06-2022 10:17-0400 Systolic blood pressure 122 mm[Hg] [facility] 10-06-2022 10:05-0400 Diastolic blood pressure 76 mm[Hg] [facility] 10-06-2022 10:05-0400 Heart rate 67 /min [facility] 10-06-2022 10:05-0400 Respiratory rate 18 /min [facility] 10-06-2022 10:05-0400 SaO2% (BldA) [Mass fraction] 99 % [facility] 10-06-2022 10:05-0400 Systolic blood pressure 135 mm[Hg] [facility] 10-06-2022 10:00-0400 Diastolic blood pressure 70 mm[Hg] [facility] 10-06-2022 10:00-0400 Heart rate 66 /min [facility] 10-06-2022 10:00-0400 Systolic blood pressure 134 mm[Hg] [facility] 10-06-2022 09:55-0400 Respiratory rate 16 /min [facility] 10-06-2022 09:52-0400 Body temperature 97.7 [degF] [facility] 10-06-2022 09:40-0400 Respiratory rate 1 /min [facility] 10-06-2022 08:21-0400 Blood Pressure Location [facility] 10-06-2022 08:21-0400 Body temperature 97.88 [degF] [facility] 07-29-2022 14:15-0500 Diastolic blood pressure 88 mm[Hg] Elicia Hipolito [facility] 07-29-2022 14:15-0500 Mean blood pressure 105 mm[Hg] Elicia Hipolito [facility] 07-29-2022 14:15-0500 Systolic blood pressure 138 mm[Hg] Elicia Hipolito [facility] 07-29-2022 14:11-0500 Blood Pressure Location Elicia Hipolito [facility] 07-29-2022 14:11-0500 Body temperature 97.88 [degF] Elicia Mcmillan [facility] 07-29-2022 14:11-0500 Diastolic blood pressure 87 mm[Hg] Elicia Mcmillan [facility] 07-29-2022 14:11-0500 Heart rate 77 /min Elicia Mcmillan [facility] 07-29-2022 14:11-0500 Systolic blood pressure 147 mm[Hg] Elicia Mcmillan [facility] 07-26-2022 10:45-0500 Body height 187.96 cm Donald Lizarraga Other [facility] Other 07-26-2022 10:45-0500 Body mass index (BMI) [Ratio] 41.47 kg/m2 Donald Lizarraga Other [facility] Other 07-26-2022 10:45-0500 Body weight 146.51 kg Donald Lizarraga Other [facility] Other 07-26-2022 10:45-0500 Diastolic blood pressure 84 mm[Hg] Donald Lizarraga Other [facility] Other 07-26-2022 10:45-0500 SaO2% (BldA) [Mass fraction] 97 % Donald Lizarraga Other [facility] Other 07-26-2022 10:45-0500 Systolic blood pressure 142 mm[Hg] Donald Lizarraga Other [facility] Other 10-27-2021 12:02-0400 Blood Pressure Location [facility] 10-27-2021 12:02-0400 Diastolic blood pressure 78 mm[Hg] [facility] 10-27-2021 12:02-0400 Heart rate 77 /min [facility] 10-27-2021 12:02-0400 Systolic blood pressure 141 mm[Hg] CATHIE HERNANDEZ [facility] Encounters Encounter Date Encounter Type Care Provider Facility Start: 01-30-2024 ambulatory RADHA Leon acility:[facility] [place] Start: 07-20-2023 End: 07-20-2023 ambulatory Donald Lizarraga Other [facility] Other Start: 07-20-2023 Telephone encounter Donald Lizarraga [facility] Start: 07-13-2023 End: 07-13-2023 ambulatory Donald Lizarraga Other [facility] Other Start: 07-13-2023 Office outpatient vi sit 15 minutes Donald Lizarraga [facility] Start: 04-04-2023 Patient encounter status Emperatriz Karim DO Work Phone: [facility] Start: 04-04-2023 Refill Emperatriz Karim DO Work Phone: [facility] Comment on above: Refill Start: 03-29-2023 End: 03-29-2023 ambulatory UNKNOWN PROVIDER Facility:[facility] Start: 03-29-2023 End: 03-29-2023 Office outpatient visit 15 minutes Emperatriz Karim DO Work Phone: [facility] Comment on above: Persistent atrial fi brillation (HCC) (Primary Dx); Anticoagulated; JAVED on CPAP Start: 03-28-2023 End: 03-28-2023 ambulatory Donald Lizarraga Other [facility] Other Start: 03-28-2023 Telephone encounter Donald Lizarraga [facility] Start: 03-18-2023 Letter encounter Emperatriz Villafana O Work Phone: [facility] Start: 02-16-2023 Telephone encounter Emperatriz velarde DO Work Phone: [facility] Comment on above: Question about medic ation Refill Start: 02-14-2023 Patient encounter status Emperatriz Carnes DO Work Phone: [facility] Start: 02-14-2023 Refill Emperatriz Carnes DO Work Phone: [facility] Comment on above: Refill Start: 01-24-2023 End: 01-25-2023 ambulatory PA-C CATHIE HERNANDEZ Facility:[facility] Start: 01-24-2023 End: 01-24-2023 Lab Drop off CATHIE HERNANDEZ [facility] Start: 01-24-2023 End: 01-24-2023 Patient encounter procedure CATHIE HERNANDEZ [facility] Start: 11-10-2022 End: 11-11-2022 ambulatory JEET HERNÁNDEZ . Facility:[facility] Start: 11-07-2022 End: 12-07-[address] DONALD LIZARRAGA Facility:[facility] Start: 10-13-2022 ambulatory JAIMEE FELIZ . Facility:[facility] Start: 10-11-2022 (Televisit) Televisit Donald Leon [facility] Start: 10-11-2022 End: 10-11-2022 ambulatory Donald Lizarraga Other [facility] Other Start: 10-10-2022 End: 11-04-2022 ambulatory WOMACK Gurwinder ALFONSOD Facility:[facility] Start: 10-06-2022 End: 10-07-2022 ambulatory Oxana NARANJO Facility:[facility] Start: 10-06-2022 End: 10-06-2022 Patient encounter procedure Oxana NARANJO [facility] Start: 2022 Telephone encounter Donald Lizarraga [facility] Start: 2022 End: 09-09-[address] DONALD LIZARRAGA [facility] [employer] Other Start: 09-07-2022 End: 10-07-2022 ambulatory Gurwinder MARLENY Facility:[facility] Start: 08-10-2022 End: 09-07-2022 ambulatory SHAIKH Gurwinder FARMER Facility:[facility] Start: 07-29-2022 End: 07-30-2022 ambulatory Elicia Mcmillan Facility:[facility] Start: 07-29-2022 End: 07-29-2022 Patient encounter procedure Elicia Mcmillan [facility] Start: 07-26-2022 End: 07-26-2022 ambulatory Donald Lizarraga Other [facility] Other Start: 07-26-2022 Office outpatient vi sit 15 minutes Donald Lizarraga [facility] Start: 07-20-2022 End: 07-21-[address] JADEN VILLA . Facility:[facility] Start: 07-11-2022 End: 08-10-2022 ambulatory SHAIKH Gurwinder FARMER Facility:[facility] Start: 07-05-2022 ambulatory Elicia Mcmillan Facility :[facility] Start: 06-28-2022 End: 06-28-[address] JADEN VILLA . Facility:[facility] Start: 06-09-2022 End: 07-10-[address] DONALD LIZARRAGA Facility:[facility] Start: 05-26-2022 End: 05-27-[address] DONALD LIZARRAGA Facility:[facility] Start: 05-10-2022 End: 06-08-[address] DONALD LIZARRAGA Facility:[facility] Start: 04-10-2022 End: 05-09-[address] DONALD LIZARRAGA Facility:[facility] Start: 04-07-2022 End: 04-08-[address] DONALD LIZARRAGA Facility:[facility] Start: 03-22-2022 End: 03-22-[address] DONALD LIZARRAGA Facility:[facility] Start: 03-10-2022 End: 04-09-[address] DONALD LIZARRAGA Facility:[facility] Start: 03-03-2022 End: 03-04-[address] DONALD LIZARRAGA Facility:[facility] Start: 02-27-2022 Patient encounter status Emperatriz Karim DO Work Phone: [facility] Start: 02-27-2022 Refill Emperatriz Karim DO Work Phone: [facility] Comment on above: Refill Start: 02-07-2022 End: 02-07-[address] DONALD LIZARRAGA Facility:[facility] Start: 02-07-2022 End: 03-09-[address] DONALD LIZARRAGA Facility:[facility] Start: 01-15-2022 Refill Emperatriz Karim DO Work Phone: [facility] Comment on above: Refill Start: 01-07-2022 End: 02-04-[address] DONALD LIZARRAGA Facility:[facility] Start: 11-24-2021 Patient encounter status Emperatriz Karim DO Work Phone: [facility] Start: 11-24-2021 Refill Emperatriz Karim DO Work Phone: [facility] Comment on above: Refill Start: 11-24-2021 Refill Emperatriz Karim DO Work Phone: [facility] Comment on above: Refill Start: 10-27-2021 End: 10-27-2021 Patient encounter procedure CATHIE HERNANDEZ [facility] Start: 03-28-2018 Patient encounter Devin Greer Fa cility[facility] Start: 04-24-2017 End: 04-25-2017 Ambulatory DEFAULT PHYSICIAN Facility:[facility] Start: 03-03-2017 End: 03-04-2017 Ambulatory DEFAULT PHYSICIAN Facility:[facility] Procedures Date Procedure Procedure Detail Performing Clinician Start: 10-06-2022 Colonoscopy Oxana NARANJO Start: [address] JADEN VILLA . Comment on above: Performed By: #### PSASC #### [facility] [address] [place] [address] Dr. Jason Pearson Start: 04-23-2020 Transurethral prostatectomy CATHIE PARIS Start: 07-19-2018 Transrectal biopsy of prostate using ultrasound guidance CATHIE HERNANDEZ Start: 12-21-2017 Esophagogastroduodenoscopy Elicia marrero Start: 08-28-2017 Screening for malignant neoplasm of colon Donald Lizarraga Other Start: 08-26-2016 Screening for malignant neoplasm of prostate Donald Lizarraga Other Start: 04-18-2014 Removal of suture Donald Lizarraga Other Start: 02-13-2014 General examination of patient Donald Rondon [facility] Other Colonoscopy CATHIE HERNANDEZ Excision of cyst CATHIE CHERY RRSierra Local anesthetic ner ve block in lower limb CATHIE HERNANDEZ Screening for malign ant neoplasm of colon Donald Lizarraag Other Screening for malign ant neoplasm of prostate Donald Lizarraga Other Special back care CATHIE Sullivan ERRSierra Plan of Treatment Date Care Activity Detail Author Start: 09-09-2027 Lipid panel Cholesterol [facility] Start: 04-09-2023 Influenza vaccination Influenza Vaccine (#1) [facility] Start: 03-29-2023 End: 03-29-2023 Telemedicine consultation with patient 03/29/2023 4:20 PM EDT Telemedicine [facility] [address] [place] [address] RodolfoSa betsyimaDO [address] [facility] [place] [address] [facility] Start: 03-10-2023 Influenza vaccination Influenza Vaccine (#1) [facility] Start: 08-18-2022 Pneumococcal vaccination [facility] Start: 04-09-2022 Influenza vaccination Influenza Vaccine (#1) [facility] Start: 02-10-2022 COVID-19 Vaccine (5 - Booster for Pfizer series) COVID-19 Vaccine (5 - Booster for Pfizer series) [facility] Start: 02-10-2022 COVID-19 Vaccine (5 - Pfizer series) COVID-19 Vaccine (5 - Pfizer series) [facility] Start: 02-07-2022 Influenza vaccination Influenza Vaccine (#1) [facility] Start: 10-08-2021 COVID-19 Vaccine (4 - Booster for Pfizer series) COVID-19 Vaccine (4 - Booster for Pfizer series) [facility] Start: 08-04-2021 COVID-19 Vaccine (4 - Booster for Pfizer series) COVID-19 Vaccine (4 - Booster for Pfizer series) [facility] Start: 12-29-2019 Basic metabolic 2000 panel - Serum or Plasma Basic Metabolic Panel [facility] Start: 12-29-2019 Creatinine measurement Basic Metabolic Panel [facility] Start: 2019 Annual wellness visit Annual Wellness Visit ([id number]) [facility] Start: 2013 RSV vaccine (optional 60+ years) RSV vaccine (optional 60+ years) [facility] Start: 09-09-2003 Measurement of occult blood in single stool specimen FIT [facility] Start: 09-09-2003 Screening for malignant neoplasm of colon CRC Screening [facility] Start: 09-09-2003 Shingles (RZV) Vaccine (1 of 2) Shingles (RZV) Vaccine (1 of 2) [facility] Start: 1998 Screening for malignant neoplasm of colon [facility] Start: 1988 Lipid panel Cholesterol [facility] Start: 09-09-1971 Hepatitis C screening Hepatitis C Antibody [facility] Start: 09-09-1971 Tetanus + diphtheria + acellular pertussis vaccine (product) Tdap Booster [facility] Start: 1953 COVID-19 Vaccine ( formulation) COVID-19 Vaccine ( formulation) [facility] Start: 1953 Screening for malignant neoplasm of colon [facility] Immunizations Immunization Date Immunization Notes Care Provider Fa [facility] 05-24-2022 influenza virus vaccine, unspecified formulation Elicia Hipolito [facility] 05-24-2022 Influenza, seasonal vaccine, quadrivalent, adjuvanted, 0.5mL dose, preservative free (YTP=443) [facility] Work Phone: [facility] 12-16-2021 Pfizer Monovalent (1 2+ yrs) SARS-COV-2 (COVID-19) vaccine, mRNA, spike protein, LNP, pres. free, 30 mcg/0.3mL dose, art-sucrose (BRK=238) [facility] Work Phone: [facility] 12-16-2021 SARS-CoV-2 mRNA (ilatzgqqmob-hzas-vypfz se) vaccine Elicia Garciametz [facility] 08-18-2021 pneumococcal conjuga te vaccine, 13 valent [facility] Work Phone: [facility] 06-09-2021 SARS-CoV-2 (COVID-19 ) mRNA BNT-162b2 vax Eliciagurwinder GarciaHipolito [facility] 05-26-2021 SARS-CoV-2 (COVID-19 ) Ad26 vaccine, recombinant CATHIE HERNANDEZ [facility] 05-21-2021 Influenza, seasonal vaccine, quadrivalent, adjuvanted, 0.5mL dose, preservative free (RZR=324) Emperatriz Carnes DO Work Phone: [facility] 05-21-2021 influenza virus vaccine, unspecified formulation Emperatrizquique Carnes DO Work Phone: [place] [facility] 04-28-2021 influenza virus vaccine, unspecified formulation CATHIE HERNANDEZ [facility] 04-28-2021 SARS-CoV-2 (COVID-19 ) Ad26 vaccine, recombinant CATHIE HERNANDEZ [facility] 09-26-2020 Pfizer SARS-COV-2 (COVID-19) vaccine, age 12+ yrs, mRNA, spike protein, LNP, preservative free, 30 mcg/0.3mL dose (PPA=437) Emperatriz Carnes DO Work Phone: [facility] Comment on above: Result Comment: 2022: [id number] 09-05-2020 Pfizer SARS-COV-2 (COVID-19) vaccine, age 12+ yrs, mRNA, spike protein, LNP, preservative free, 30 mcg/0.3mL dose (KRX=022) Emperatriz Carnes DO Work Phone: [facility] Comment on above: Result Comment: 2022: [id number] 05-10-2020 influenza virus vaccine, unspecified formulation CATHIE HERNANDEZ [facility] 05-05-2020 influenza virus vaccine, unspecified formulation Elicia Hipolito [facility] 05-05-2020 Influenza, seasonal vaccine, quadrivalent, adjuvanted, 0.5mL dose, preservative free (CBQ=284) Emperatriz Carnes DO Work Phone: [facility] 04-29-2019 influenza virus vaccine, unspecified formulation Elicia Mcmillan [facility] 04-29-2019 influenza, high dose seasonal, preservative-free Emperatriz Karim DO Work Phone: [facility] 04-26-2018 influenza virus vaccine, unspecified formulation Elicia Mcmillan [facility] 04-26-2018 Influenza, injectabl e, Madin [place] Canine Kidney, preservative free, quadrivalent Emperatriz Karim DO Work Phone: [facility] 04-19-2016 influenza virus vaccine, split virus (incl. purified surface antigen) Donald Lizarraga Other [facility] Other 04-19-2016 pneumococcal polysaccharide vaccine, 23 valent Donald Lizarraga Other [facility] Other 06-23-2014 influenza virus vaccine, split virus (incl. purified surface antigen) Donald Lizarraga Other [facility] Other 02-13-2014 diphtheria, tetanus toxoids and acellular pertussis vaccine, unspecified formulation Donald Lizarraga Other [facility] Other Payers Date Payer Category Payer Unknown 2018 Medicare MEDICARE MEDICAR E PART A & B [id number] 2018-Present [address] [place] [address] Medicare [id number] 1959 Medicare [id number] 2.16.840.1.411525.19 1959 Unknown [id number] 2.16.840.1.145413.19 1953 Unknown [id number] 2.16.840.1.734799.3.579.2.593 1953 Unknown [id number] 2.16.840.1.226941.3.579.2.593 1953 Unknown [id number] 2.16.840.1.513277.3.579.2.593 1953 Unknown [id number] 2.16.840.1.823061.3.579.2.593 1953 Unknown [id number] 2.16.840.1.252600.3.579.2.593 1953 Unknown [id number] 2.16.840.1.472606.3.579.2.593 1953 Unknown [id number] 2.16.840.1.918817.3.579.2.593 1953 Unknown [id number] 2.16.840.1.219441.3.579.2.593 1953 Unknown [id number] 2.16.840.1.771499.3.579.2.593 1953 Unknown [id number] 2.16.840.1.026129.3.579.2.593 1953 Unknown [id number] 2.16.840.1.474227.3.579.2.593 1953 Unknown [id number] 2.16.840.1.140986.3.579.2.593 1953 Unknown [id number] 2.16.840.1.654190.3.579.2.593 1953 Unknown [id number] 2.16.840.1.913470.3.579.2.593 1953 Unknown [id number] 2.16.840.1.711169.3.579.2.593 1953 Unknown [id number] 2.16.840.1.432955.3.579.2.593 1953 Unknown [id number] 2.16.840.1.896610.3.579.2.593 1953 Unknown [id number] 2.16.840.1.398497.3.579.2.593 1953 Unknown [id number] 2.16.840.1.333511.3.579.2.593 1953 Unknown [id number] 2.16.840.1.583885.3.579.2.593 1953 Unknown [id number] 2.16.840.1.396619.3.579.2.593 1953 Unknown [id number] 2.16.840.1.305900.3.579.2.593 1953 Unknown [id number] 2.16.840.1.466199.3.579.2.593 1953 Unknown [id number] 2.16.840.1.334068.3.579.2.727 1953 Unknown [id number] 2.16.840.1.068363.3.579.2.727 1953 Unknown [id number] 2.16.840.1.447229.3.579.2.727 1953 Unknown [id number] 2.16.840.1.968962.3.579.2.727 1953 Unknown [id number] 2.16.840.1.946907.3.579.2.727 1953 Unknown [id number] 2.16.840.1.973458.3.579.2.732 Unknown [id number] Social History Date Type Detail Facility Start: 12-28-2018 End: 09-03-2020 Tobacco smoking status Never smoked tobacco (finding) [facility] Tobacco smoking status Never [facility] Sex Assigned At Male [facility] Start: 12-28-2018 Tobacco use and exposure Smokeless tobacco non-user [facility] Start: 12-28-2018 End: 03-27-2023 Alcohol intake Ex-drinker (finding) [facility] Start: 1955 Sex Assigned At Not on file [facility] Functional Status Date Assessment Result Facility 01-24-2023 Functional Status N/A [facility] 10-06-2022 Functional Status N/A [facility] 07-29-2022 Functional Status N/A [facility] Clinical Notes 11-24-2021 to 07-13-2023 Note Date & Type Note Facility 07-13-2023 Evaluation note Encounter Date Diagnosis Assessment Notes Jul, Obstructive sleep apnea (ICD-10 - G47.33) Clinical signs which suggest the need for pressure adjustment were reviewed. He is compliant and faithful w using the device. Jul, Unspecified atrial fibrillation (ICD-10 - I48.91) >15 min spent in discussion/d ecision making. Continue followup w cardiology Jul, Essential hypertension (ICD-10 - I10) as above [facility] Other 09-20-2023 History of Present illness Narrative* Deyvi Emperatriz, DO - 03/29/2023 4:20 PM EDT Phone numbers Preferred Documentation: Mode: Video Consent: This visit was initiated by the patient. Audio and visual communication was utilized in real-time. I confirmed understanding of risks and benefits of telehealth visits and obtained consent to proceed with the telemedicine visit. Location of Patient: Home of patient Time-Based Billing Justifications: Charting in Epic Patient visit (including performing a medically appropriate exam) Obtaining history (or reviewing separately obtained history) CARDIAC ELECTROPHYSIOLOGY CONSULT NOTE Evangelist Ybarra was seen today on 03/29/2023 in consultation due to chief complaint of AF. Telephone Visit for EP Evangelist Ybarra 67 year old male Phone numbers PCP: No primary care provider on file. Encounter Diagnoses Name Primary? 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 Last televisit- 08/2020- He had to ER on 05/22/20 when he had pain with a blood clot- needing to stop his coumadin for a short period of time. He felt like he has been in sinus rhythm on his self checks. He was on [id number] mg BID and Lopressor 100 mg BID. Since patient last saw me, he had TURP done- no further hematuria or urgency. PSA has been stable. Colonoscopy was normal per patient. No melena etc. ALLERGIES: Allergies Allergen Reactions Other (Review Comments!) MEDICATIONS: Current Outpatient Medications Medication Sig Dispense Refill Sodium Sulfate-Mag Sulfate-KCl (Sutab) [phone] MG TABS Take by mouth. AMLODIPINE BESYLATE ORAL amLODIPine Besylate Not-Taking sildenafil citrate (VIAGRA) 25 MG tablet Take 25 mg by mouth. warfarin (COUMADIN) 5 MG tablet TAKE ONE TO ONE AND ONE-HALF TABLETS DAILY OR DIRECTED BY MEDICATION MANAGEMENT CLINIC 120 Tablet 3 metoprolol (TOPROL-XL) 100 mg XL tablet Take 1 Tablet by mouth daily. 90 Tablet 3 flecainide (TAMBOCOR) 100 MG tablet Take 1 Tablet by mouth 2 times daily. 180 Tablet 3 Klor-Con M20 20 MEQ controlled release tablet TAKE 1 TABLET TWICE A DAY 180 Tablet 3 loratadine (CLARITIN) 10 MG tablet Take 10 mg by mouth daily. 3 olopatadine (PATANOL) 0.1 % ophthalmic solution olopatadine 0.1 % eye drops Potassium Chloride 40 MEQ/15ML (20%) SOLN 15 mL. hydrochlorothiazide (HYDRODIURIL) 25 MG tablet lisinopril (PRINIVIL, ZESTRIL) 40 MG tablet atorvastatin (LIPITOR) 20 MG tablet baclofen (LIORESAL) 10 MG tablet Take 10 mg by mouth at bedtime. 4 No current facility-administered medications for this visit. PMH: No past medical history on file. PSH: No past surgical history on file. FH: No family history on file. SH: Social History Socioeconomic History Marital status: Highest education level: Bachelor's degree (e.g., BA, AB, BS) Tobacco Use Smoking status: Never Smokeless tobacco: Never Substance and Sexual Activity Alcohol use: Not Currently Drug use: Never Social Determinants of Health Financial Resource Strain: Low Risk (03/27/2023) Overall Financial Resource Strain (CARDIA) Difficulty of Paying Living Expenses: Not hard at all Food Insecurity: No Food Insecurity (03/27/2023) Hunger Vital Sign Worried About Running Out of Food in the Last Year: Never true Ran Out of Food in the Last Year: Never true Transportation Needs: No Transportation Needs (03/27/2023) PRAPARE - Transportation Lack of Transportation (Medical): No Lack of Transportation (Non-Medical): No Physical Activity: Unknown (03/27/2023) Exercise Vital Sign Days of Exercise per Week: Patient refused Minutes of Exercise per Session: Patient refused Stress: No Stress Concern Present (03/27/2023) [employer] - Occupational Stress Questionnaire Feeling of Stress : Not at all Social Connections: Moderately Integrated (03/27/2023) Social Connection and Isolation Panel [NHANES] Frequency of Communication with Friends and Family: More than three times a week Frequency of Social Gatherings with Friends and Family: Twice a week Attends Anabaptism Services: Never Active Member of Clubs or Organizations: Yes Attends Club or Organization Meetings: More than 4 times per year Marital Status: Intimate Partner Violence: Not At Risk (03/27/2023) Humiliation, Afraid, Rape, and Kick questionnaire Fear of Current or Ex-Partner: No Emotionally Abused: No Physically Abused: No Sexually Abused: No LABS: Basic Metabolic Panel None CBC (last 3 years, up to 5 values) None Lipids (last 3 years, up to 5 values) None TSH None Assessment/Plan: Persistent atrial fibrillation (HCC) (Primary Diagnosis) [363168] Anticoagulated [124929] JAVED on CPAP [425567] Patient doing well overall as far as AF is concerned. He has blood work done that was normal locally. His only complaint is his arthritis. This is affecting his mobility and ability to exercise. Had anEKG done locally and will have it faxed. He was told it showed sinus rhythm. He has an apple watch that has not showed any arrhythmia. Remains anticoagulated. No further hematuria. Follow up via video visit in 1 year. Total Time Spent with Patient: 20 minutes, of which greater than 50% was spent on counseling or coordinating care. Phone numbers This visit has been performed as a phone visit to comply with patient safety concerns in accordancewith CDC recommendations. I confirmed understanding of risks and benefits of telehealth visits and obtained consent to proceed with the telemedicine visit. Total Time Spent with Patient: 20 minutes, of which greater than 50% was spent on counseling or coordinating care. Emperatriz Carnes DO Clinical Cardiac Electrophysiology 03/29/23 4:52 PM documented in this [id number] Telephone encounter Note* Telephone Encounter - Crystal Putnam RN - 02/17/2023 9:17 AM EDT LVM for pt that new generic Rx (Toprol XL) was sent over to [facility]. [id number] Miscellaneous Notes* Telephone Encounter - Crystal Putnam RN - 02/17/2023 9:17 AM EDT LVM for pt that new generic Rx (Toprol XL) was sent over to [facility]. * Telephone Encounter - Dexter October Norberto - 02/16/2023 9:38 AM EDT [facility] is calling wanting to know if they can dispense Metoprolol SUCC- ER 100 mg instead ofthe Toprol XL 100 mg, pt's insurance will only cover the generic brand. Please contact Ross [phone] use Re:[phone]. Thank you documented in this [id number] Telephone encounter Note* Telephone Encounter - Aundrea Dvais PharmD - 02/16/2023 3:00 PM EDT Patient called stating the original prescription that was sent had a KP for Toprol XL 100mg which is not covered. Please send over generic Metoprolol ER Succinate 100mg. Thank you! [id number] Miscellaneous Notes* Telephone Encounter - Aundrea Davis PharmD - 02/16/2023 3:00 PM EDT Patient called stating the original prescription that was sent had a KP for Toprol XL 100mg which is not covered. Please send over generic Metoprolol ER Succinate 100mg. Thank you! documented in this [id number] Telephone encounter Note* Telephone Encounter - Dexter Heather Norberto - 02/16/2023 9:38 AM EDT [facility] is calling wanting to know if they can dispense Metoprolol SUCC- ER 100 mg instead ofthe Toprol XL 100 mg, pt's insurance will only cover the generic brand. Please contact Pristones [phone] use Re:[phone]. Thank you [employer] Phone: [phone] Hospital Discharge instructions Patient Education 01/24/2023 10:34:12 Erectile Dysfunction Erectile Dysfunction Erectile dysfunction (ED) is the inability to get or keep an erection in order to have sexual intercourse. ED is considered a symptom of an underlying disorder and is not considered a disease. ED mayinclude: Inability to get an erection. Lack of enough hardness of the erection to allow penetration. Loss of erection before sex is finished. What are the causes? This condition may be caused by: Physical causes, such as: ?Artery problems. This may include heart disease, high blood pressure, atherosclerosis, and diabetes. ?Hormonal problems, such as low testosterone. ?Obesity. ?Nerve problems. This may include back or pelvic injuries, multiple sclerosis, Parkinson's disease,spinal cord injury, and stroke. Certain medicines, such as: ?Pain relievers. ?Antidepressants. ?Blood pressure medicines and water pills (diuretics). ?Cancer medicines. ?Antihistamines. ?Muscle relaxants. Lifestyle factors, such as: ?Use of drugs such as marijuana, cocaine, or opioids. ?Excessive use of alcohol. ?Smoking. ?Lack of physical activity or exercise. Psychological causes, such as: ?Anxiety or stress. ?Sadness or depression. ?Exhaustion. ?Fear about sexual performance. ?Guilt. What are the signs or symptoms? Symptoms of this condition include: Inability to get an erection. Lack of enough hardness of the erection to allow penetration. Loss of the erection before sex is finished. Sometimes having normal erections, but with frequent unsatisfactory episodes. Low sexual satisfaction in either partner due to erection problems. A curved penis occurring with erection. The curve may cause pain, or the penis may be too curved toallow for intercourse. Never having nighttime or morning erections. How is this diagnosed? This condition is often diagnosed by: Performing a physical exam to find other diseases or specific problems with the penis. Asking you detailed questions about the problem. Doing tests, such as: ?Blood tests to check for diabetes mellitus or high cholesterol, or to measure hormone levels. ?Other tests to check for underlying health conditions. ?An ultrasound exam to check for scarring. ?A test to check blood flow to the penis. Doing a sleep study at home to measure nighttime erections. How is this treated? This condition may be treated by: Medicines, such as: ?Medicine taken by mouth to help you achieve an erection (oral medicine). ?Hormone replacement therapy to replace low testosterone levels. ?Medicine that is injected into the penis. Your health care provider may instruct you how to give yourself these injections at home. ?Medicine that is delivered with a short applicator tube. The tube is inserted into the opening at the tip of the penis, which is the opening of the urethra. A tiny pellet of medicine is put in the urethra. The pellet dissolves and enhances erectile function. This is also called MUSE (medicated urethral system for erections) therapy. Vacuum pump. This is a pump with a ring on it. The pump and ring are placed on the penis and used to create pressure that helps the penis become erect. Penile implant surgery. In this procedure, you may receive: ?An inflatable implant. This consists of cylinders, a pump, and a reservoir. The cylinders can be inflated with a fluid that helps to create an erection, and they can be deflated after intercourse. ?A semi-rigid implant. This consists of two silicone rubber rods. The rods provide some rigidity. They are also flexible, so the penis can both curve downward in its normal position and become straight for sexual intercourse. Blood vessel surgery to improve blood flow to the penis. During this procedure, a blood vessel froma different part of the body is placed into the penis to allow blood to flow around (bypass) damaged or blocked blood vessels. Lifestyle changes, such as exercising more, losing weight, and quitting smoking. Follow these instructions at home: Medicines Take xaxz-cce-rdegghs and prescription medicines only as told by your health care provider. Do not increase the dosage without first discussing it with your health care provider. If you are using self-injections, do injections as directed by your health care provider. Make sureyou avoid any veins that are on the surface of the penis. After giving an injection, apply pressureto the injection site for 5 minutes. Talk to your health care provider about how to prevent headaches while taking ED medicines. These medicines may cause a sudden headache due to the increase in blood flow in your body. General instructions Exercise regularly, as directed by your health care provider. Work with your health care provider to lose weight, if needed. Do not use any products that contain nicotine or tobacco. These products include cigarettes, chewing tobacco, and vaping devices, such as e-cigarettes. If you need help quitting, ask your health careprovider. Before using a vacuum pump, read the instructions that come with the pump and discuss any questionswith your health care provider. Keep all follow-up visits. This is important. Contact a health care provider if: You feel nauseous. You are vomiting. You get sudden headaches while taking ED medicines. You have any concerns about your sexual health. Get help right away if: You are taking oral or injectable medicines and you have an erection that lasts longer than 4 hours. If your health care provider is unavailable, go to the nearest emergency room for evaluation. An erection that lasts much longer than 4 hours can result in permanent damage to your penis. You have severe pain in your groin or abdomen. You develop redness or severe swelling of your penis. You have redness spreading at your groin or lower abdomen. You are unable to urinate. You experience chest pain or a rapid heartbeat (palpitations) after taking oral medicines. These symptoms may represent a serious problem that is an emergency. Do not wait to see if the symptoms will go away. Get medical help right away. Call your local emergency services (911 in the [place] Do not drive yourself to the hospital. Summary Erectile dysfunction (ED) is the inability to get or keep an erection during sexual intercourse. This condition is diagnosed based on a physical exam, your symptoms, and tests to determine the cause. Treatment varies depending on the cause and may include medicines, hormone therapy, surgery, or a vacuum pump. You may need follow-up visits to make sure that you are using your medicines or devices correctly. Get help right away if you are taking or injecting medicines and you have an erection that lasts longer than 4 hours. This information is not intended to replace advice given to you by your health care provider. Make sure you discuss any questions you have with your health care provider. Document Revised: 09/22/2021 Document Reviewed: 09/22/2021 [employer] Patient Education 2022 [employer]. Follow Up Care 10/27/2021 12:15:55 With:TIANA GARCIA, CATHIE Ruano, URL Address: [address] [place] [address] When:Within 1 Year(s) [facility] 04-04-2023 Evaluation note* Encounter Date Diagnosis Assessment Notes Treatment Notes Treatment Clinical Notes Oct, Bronchitis (ICD-10 - J40) Pt understands to take meds as prescribed and finish antibiotic. Also understands to go to ER if symptoms worsen. Oct, COVID-19 (ICD-10 - U07.1) With his warfarin and his lack of dyspnea, risks of antivirals would outweigh benefits at this time. Discussed symptom management and pt understands. Oct, Atrial fibrillation, unspecified type (ICD-10 - I48.91) stable. 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 [facility] Other 03-31-2023 Note [id number]:127[facility] 10-06-2022 Evaluation + Plan noteExtracted from: Title:CSCarley post op Author:Daljit Gooden MD Date:10/06/22 Plan Transfer/Discharge: Transfer/Discharge Discharge when meets criteria ( To home ). Extracted from: Title:KRISSY [place] Author:Daljit Gooden MD Date:10/06/22 Plan [place] [employer]esthesiologists (ASA) physical status classification: Class III. Anesthetic Preoperative Plan: Anesthesia General. Future Appointments Appointment Date:01/25/2023 10:00:00 AM Scheduled Provider:Erica Chua MD Location:[facility] Appointment Type:URO Office Visit [facility]03[facility]30[facility]2023 Hospital Discharge instructions Patient Education 10/06/2022 10:00:07 Colonoscopy, Care After Surgery Salelvis (CUSTOM) Colonoscopy Care After Surgery Please read the instructions outlined below and refer to this sheet in the next few weeks. These discharge instructions provide you with general information on caring for yourself after you leave thespital. Your doctor may also give you specific instructions. While your treatment has been planned according to the most current medical practices available, unavoidable complications occasionally occur. If you have any problems or questions after discharge, please call your doctor. ACTIVITY You may resume your regular activity, but move at a slower pace for the next 24 hours. Take frequent rest periods for the next 24 hours. Walking will help get rid of the air and reduce the bloated feeling in your abdomen (belly). No driving for 24 hours (because of the anesthesia (medicine) used during the test). You may shower. Do not sign any important legal documents or operate any machinery for 24 hours (because of the anesthesia used during the test). NUTRITION Drink plenty of fluids. You may resume your normal diet as instructed by your doctor. Begin with a light meal and progress to your normal diet. Heavy or fried foods are harder to digestand may make you feel nauseated (sick to your stomach). Avoid alcoholic beverages for 24 hours or as instructed. MEDICATIONS You may resume your normal medications unless your doctor tells you otherwise. WHAT YOU CAN EXPECT TODAY Some feelings of bloating in the abdomen. Passage of more gas than usual. Spotting of blood in your stool or on the toilet paper. FOLLOW-UP Your doctor will discuss the results of your test with you. SEEK IMMEDIATE MEDICAL ATTENTION IF: There is more than a spotting of blood in your stool. There is abdominal distention (your abdomen is swollen). There is vomiting. You have a temperature over 101.5 F. There is abdominal pain or discomfort that is severe or gets worse throughout the day. 10/06/2022 10:00:07 Colon Polyps Colon Polyps Polyps are tissue growths inside the body. Polyps can grow in many places, including the large intestine (colon). A polyp may be a round bump or a mushroom-shaped growth. You could have one polyp or several. Most colon polyps are noncancerous (benign). However, some colon polyps can become cancerous over time. Finding and removing the polyps early can help prevent this. What are the causes? The exact cause of colon polyps is not known. What increases the risk? You are more likely to develop this condition if you: Have a family history of colon cancer or colon polyps. Are older than 50 or older than 45 if you are . Have inflammatory bowel disease, such as ulcerative colitis or Crohn's disease. Have certain hereditary conditions, such as: ?Familial adenomatous polyposis. ?Fernando syndrome. ?Turcot syndrome. ?Peutz Jeghers syndrome. Are overweight. Smoke cigarettes. Do not get enough exercise. Drink too much alcohol. Eat a diet that is high in fat and red meat and low in fiber. Had childhood cancer that was treated with abdominal radiation. What are the signs or symptoms? Most polyps do not cause symptoms. If you have symptoms, they may include: Blood coming from your rectum when having a bowel movement. Blood in your stool. The stool may look dark red or black. Abdominal pain. A change in bowel habits, such as constipation or diarrhea. How is this diagnosed? This condition is diagnosed with a colonoscopy. This is a procedure in which a lighted, flexible scope is inserted into the anus and then passed into the colon to examine the area. Polyps are sometimes found when a colonoscopy is done as part of routine cancer screening tests. How is this treated? Treatment for this condition involves removing any polyps that are found. Most polyps can be removed during a colonoscopy. Those polyps will then be tested for cancer. Additional treatment may be needed depending on the results of testing. Follow these instructions at home: Lifestyle Maintain a healthy weight, or lose weight if recommended by your health care provider. Exercise every day or as told by your health care provider. Do not use any products that contain nicotine or tobacco, such as cigarettes and e-cigarettes. If you need help quitting, ask your health care provider. If you drink alcohol, limit how much you have: ?0 1 drink a day for women. ? 0 2 drinks a day for men. Be aware of how much alcohol is in your drink. In the [place] one drink equals one 12 oz bottle of beer (355 mL), one 5 oz glass of wine (148 mL), or one 1 oz shot of hard liquor (44 mL). Eating and drinking Eat foods that are high in fiber, such as fruits, vegetables, and whole grains. Eat foods that are high in calcium and vitamin D, such as milk, cheese, yogurt, eggs, liver, fish, and broccoli. Limit foods that are high in fat, such as fried foods and desserts. Limit the amount of red meat and processed meat you eat, such as hot dogs, sausage, bender, and lunch meats. General instructions Keep all follow-up visits as told by your health care provider. This is important. ?This includes having regularly scheduled colonoscopies. ?Talk to your health care provider about when you need a colonoscopy. Contact a health care provider if: You have new or worsening bleeding during a bowel movement. You have new or increased blood in your stool. You have a change in bowel habits. You lose weight for no known reason. Summary Polyps are tissue growths inside the body. Polyps can grow in many places, including the colon. Most colon polyps are noncancerous (benign), but some can become cancerous over time. This condition is diagnosed with a colonoscopy. Treatment for this condition involves removing any polyps that are found. Most polyps can be removed during a colonoscopy. This information is not intended to replace advice given to you by your health care provider. Make sure you discuss any questions you have with your health care provider. Document Released: 03/22/2005 Document Revised: 10/11/2018 Document Reviewed: 10/11/2018 [employer] Patient Education 2020 [employer]. 10/06/2022 10:00:07 Hemorrhoids, Lxny-jx-Szhb Hemorrhoids Hemorrhoids are swollen veins that may develop: In the butt (rectum). These are called internal hemorrhoids. Around the opening of the butt (anus). These are called external hemorrhoids. Hemorrhoids can cause pain, itching, or bleeding. Most of the time, they do not cause serious problems. They usually get better with diet changes, lifestyle changes, and other home treatments. What are the causes? This condition may be caused by: Having trouble pooping (constipation). Pushing hard (straining) to poop. Watery poop (diarrhea). . Being very overweight (obese). Sitting for long periods of time. Heavy lifting or other activity that causes you to strain. Anal sex. Riding a bike for a long period of time. What are the signs or symptoms? Symptoms of this condition include: Pain. Itching or soreness in the butt. Bleeding from the butt. Leaking poop. Swelling in the area. One or more lumps around the opening of your butt. How is this diagnosed? A doctor can often diagnose this condition by looking at the affected area. The doctor may also: Do an exam that involves feeling the area with a gloved hand (digital rectal exam). Examine the area inside your butt using a small tube (anoscope). Order blood tests. This may be done if you have lost a lot of blood. Have you get a test that involves looking inside the colon using a flexible tube with a camera on the end (sigmoidoscopy or colonoscopy). How is this treated? This condition can usually be treated at home. Your doctor may tell you to change what you eat, make lifestyle changes, or try home treatments. If these do not help, procedures can be done to remove the hemorrhoids or make them smaller. These may involve: Placing rubber bands at the base of the hemorrhoids to cut off their blood supply. Injecting medicine into the hemorrhoids to shrink them. Shining a type of light energy onto the hemorrhoids to cause them to fall off. Doing surgery to remove the hemorrhoids or cut off their blood supply. Follow these instructions at home: Eating and drinking Eat foods that have a lot of fiber in them. These include whole grains, beans, nuts, fruits, and vegetables. Ask your doctor about taking products that have added fiber (fibersupplements). Reduce the amount of fat in your diet. You can do this by: ?Eating low-fat dairy products. ?Eating less red meat. ?Avoiding processed foods. Drink enough fluid to keep your pee (urine) pale yellow. Managing pain and swelling Take a warm-water bath (sitz bath) for 20 minutes to ease pain. Do this 3 4 times a day. You may dothis in a bathtub or using a portable sitz bath that fits over the toilet. If told, put ice on the painful area. It may be helpful to use ice between your warm baths. ?Put ice in a plastic bag. ?Place a towel between your skin and the bag. ?Leave the ice on for 20 minutes, 2 3 times a day. General instructions Take bsgs-jul-aubwxgd and prescription medicines only as told by your doctor. ?Medicated creams and medicines may be used as told. Exercise often. Ask your doctor how much and what kind of exercise is best for you. Go to the bathroom when you have the urge to poop. Do not wait. Avoid pushing too hard when you poop. Keep your butt dry and clean. Use wet toilet paper or moist towelettes after pooping. Do not sit on the toilet for a long time. Keep all follow-up visits as told by your doctor. This is important. Contact a doctor if you: Have pain and swelling that do not get better with treatment or medicine. Have trouble pooping. Cannot poop. Have pain or swelling outside the area of the hemorrhoids. Get help right away if you have: Bleeding that will not stop. Summary Hemorrhoids are swollen veins in the butt or around the opening of the butt. They can cause pain, itching, or bleeding. Eat foods that have a lot of fiber in them. These include whole grains, beans, nuts, fruits, and vegetables. Take a warm-water bath (sitz bath) for 20 minutes to ease pain. Do this 3 4 times a day. This information is not intended to replace advice given to you by your health care provider. Make sure you discuss any questions you have with your health care provider. Document Released: 04/04/2009 Document Revised: 07/04/2019 Document Reviewed: 11/15/2018 [employer] Patient Education 2020 [employer]. Follow Up Care 07/29/2022 15:02:48 With:Oxana NARANJO Address: [facility] [address] [place] [address] Business (1) When: Unknown Comments:Call for any problems. [facility]01-20-2023 Hospital Discharge instructions Patient Education 07/29/2022 13:54:12 Colonoscopy, Adult Colonoscopy, Adult A colonoscopy is an exam to look at the entire large intestine. During the exam, a lubricated, flexible tube that has a camera on the end of it is inserted into the anus and then passed into the rectum, colon, and other parts of the large intestine. You may have a colonoscopy as a part of normal colorectal screening or if you have certain symptoms, such as: Lack of red blood cells (anemia). Diarrhea that does not go away. Abdominal pain. Blood in your stool (feces). A colonoscopy can help screen for and diagnose medical problems, including: Tumors. Polyps. Inflammation. Areas of bleeding. Tell a health care provider about: Any allergies you have. All medicines you are taking, including vitamins, herbs, eye drops, creams, and fkpo-gbd-cazhomp medicines. Any problems you or family members have had with anesthetic medicines. Any blood disorders you have. Any surgeries you have had. Any medical conditions you have. Any problems you have had passing stool. What are the risks? Generally, this is a safe procedure. However, problems may occur, including: Bleeding. A tear in the intestine. A reaction to medicines given during the exam. Infection (rare). What happens before the procedure? Eating and drinking restrictions Follow instructions from your health care provider about eating and drinking, which may include: A few days before the procedure follow a low-fiber diet. Avoid nuts, seeds, dried fruit, raw fruits, and vegetables. 1 3 days before the procedure follow a clear liquid diet. Drink only clear liquids, such as clear broth or bouillon, black coffee or tea, clear juice, clear soft drinks or sports drinks, gelatin dessert, and popsicles. Avoid any liquids that contain red or purple dye. On the day of the procedure do not eat or drink anything starting 2 hours before the procedure, or within the time period that your health care provider recommends. Up to 2 hours before the procedure, you may continue to drink clear liquids, such as water or clear fruit juice. Bowel prep If you were prescribed an oral bowel prep to clean out your colon: Take it as told by your health care provider. Starting the day before your procedure, you will needto drink a large amount of medicated liquid. The liquid will cause you to have multiple loose stools until your stool is almost clear or light green. If your skin or anus gets irritated from diarrhea, you may use these to relieve the irritation: ?Medicated wipes, such as adult wet wipes with aloe and vitamin E. ?A skin-soothing product like petroleum jelly. If you vomit while drinking the bowel prep, take a break for up to 60 minutes and then begin the bowel prep again. If vomiting continues and you cannot take the bowel prep without vomiting, call yourhealth care provider. To clean out your colon, you may also be given: ?Laxative medicines. ?Instructions about how to use an enema. General instructions Ask your health care provider about: ?Changing or stopping your regular medicines or supplements. This is especially important if you are taking iron supplements, diabetes medicines, or blood thinners. ?Taking medicines such as aspirin and ibuprofen. These medicines can thin your blood. Do not take these medicines before the procedure if your health care provider tells you not to. Plan to have someone take you home from the hospital or clinic. What happens during the procedure? An IV may be inserted into one of your veins. You will be given medicine to help you relax (sedative). To reduce your risk of infection: ?Your health care team will wash or sanitize their hands. ?Your anal area will be washed with soap. You will be asked to lie on your side with your knees bent. Your health care provider will lubricate a long, thin, flexible tube. The tube will have a camera and a light on the end. The tube will be inserted into your anus. The tube will be gently eased through your rectum and colon. Air will be delivered into your colon to keep it open. You may feel some pressure or cramping. The camera will be used to take images during the procedure. A small tissue sample may be removed to be examined under a microscope (biopsy). If small polyps are found, your health care provider may remove them and have them checked for cancer cells. When the exam is done, the tube will be removed. The procedure may vary among health care providers and hospitals. What happens after the procedure? Your blood pressure, heart rate, breathing rate, and blood oxygen level will be monitored until themedicines you were given have worn off. Do not drive for 24 hours after the exam. You may have a small amount of blood in your stool. You may pass gas and have mild abdominal cramping or bloating due to the air that was used to inflate your colon during the exam. It is up to you to get the results of your procedure. Ask your health care provider, or the department performing the procedure, when your results will be ready. Summary A colonoscopy is an exam to look at the entire large intestine. During a colonoscopy, a lubricated, flexible tube with a camera on the end of it is inserted into the anus and then passed into the colon and other parts of the large intestine. Follow instructions from your health care provider about eating and drinking before the procedure. If you were prescribed an oral bowel prep to clean out your colon, take it as told by your health care provider. After your procedure, your blood pressure, heart rate, breathing rate, and blood oxygen level will be monitored until the medicines you were given have worn off. This information is not intended to replace advice given to you by your health care provider. Make sure you discuss any questions you have with your health care provider. Document Released: 06/23/2001 Document Revised: 04/18/2018 Document Reviewed: 09/06/2016 [employer] Patient Education 2020 [employer]. Follow Up Care 07/05/2022 09:47:30 With:Elicia Mcmillan CNP Address: When:1 to 2 weeks Comments:Following colonoscopy. [facility] 01-17-2023 Evaluation note* Encounter Date Diagnosis Assessment Notes Treatment Notes Treatment Clinical Notes Jul, Essential hypertension (ICD-10 - I10) Blood pressure remains well controlled at this time. Denies cardiac symptoms. Shows no signs or symptoms or poor control. Patient to continue with above medication and we will continue to monitor. Advised to pay attention to body and symptoms. Any developing patterns. Stay well hydrated. 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 He feels that it affects his digestion and causes diarrhea times. Encouraged him to continue the lactose-free diet and increase his fiber as able. Jul, Atrial fibrillation, unspecified type (ICD-10 - I48.91) Discussed possible interaction of the supplement with his warfarin. States he spoke with clinician as far as interactions that way. Continue follow-up with cardiology as scheduled. [facility] Other 01-11-2023 NoteCONSULTATION CONSULTATION DATE: 07/20/2022 HISTORY OF PRESENT ILLNESS: This is a 66-year-old gentleman who returns to the clinic status post right SI joint injection completed on 06/28/2022. The patient has received 75% relief and is still ongoing. He does feel a slight, what he describes as spasm in his right buttock muscle that flares with activity. Walking, bending, transitioning positions, tying his shoes aggravate the pain. During his last appointment on 05/26/2022, the patient was started on gabapentin 200 mg q.h.s. for his radiating pain to his right side. The patient stated that his radicular pain to his right foot has greatly improved since then, but since he only takes it at night time, he feels the medication wears off during the day. He has tolerated it well. He also takes baclofen 10 mg q.h.s. He does participate in daily stretches, and he feels that he has a more upright posture. Patient's REVIEW OF SYSTEMS / PAST MEDICAL HISTORY / ALLERGIES have been reviewed and noted in the chart. PHYSICAL EXAM: VITAL SIGN: Blood pressure is 136/82. Heart rate is 82. Temperature is 97.7. He is 6'2 , weighs 324 pounds. GENERAL IMPRESSION: Pleasant, appropriate, no acute distress. FOCUSED EXAM - BACK: Range of motion is functional in lateral rotation and flexion/extension. No spinal axial pain reproduced with deep compression along the lumbar facets. Right gluteal rodrick muscle with a trigger point identified. Compression to that area reproduces the patient's pain symptomatology. Positive jump response. MUSCULOSKELETAL: Motor is intact, 5/5 bilaterally. Patient walks unassisted with a steady gait. Muscle tone is good. NEUROLOGICAL: Patchy hypoesthesia noted along the L5-L4 distribution to just above the knee. Reflexes are intact 2/2 bilaterally. DIAGNOSIS: Right gluteal spasm, lumbar radiculitis, chronic lower back pain. PLAN: The patient will receive a right gluteal trigger point injection, which he does consent to today. We will increase his gabapentin to 200 mg b.i.d. and safety was discussed with this medication. Patient will be followed up in the clinic in three months' time unless otherwise indicated.[facility] 07-20-2022 NoteCONSULTATION PROCEDURE DATE: 07/20/2022 PREOPERATIVE DIAGNOSIS: Right gluteal spasm. POSTOPERATIVE DIAGNOSIS: Right gluteal spasm. PROCEDURE: Right gluteal trigger point injection. Subsequent to obtaining informed consent, the patient was placed in the upright standing forward flexion position. Alcohol prep was used to sterilize the site. A 25 gauge needle with 0.125% Marcaine and 40 mg of Kenalog was placed to rest inside the trigger zone. Negative heme. Medication was injected in a slow, fan-like pattern. Patient tolerated the procedure well.[facility] [id number] NotePAIN MANAGEMENT CONSULTATION CONSULTATION DATE: 05/26/2022 HISTORY OF PRESENT ILLNESS: This is a 66-year-old gentleman returning to the clinic for a two month follow up for his right hip and buttock pain. Patient reports the activities that aggravate his pain are yard work, driving, excessive sitting, walking and lying on his right side. The patient did have a successful right #1 SI joint injection on 03/22/2022 but feels it is wearing off. At rest his pain is 4/10, with activity it is 6-7/10. He also has a new radicular pain down bilateral lower extremities which is keeping him up at night. Medications include Coumadin, baclofen 10 mg q.h.s. and a multivitamin regimen. He denies any new trips or falls. Patient's REVIEW OF SYSTEMS / PAST MEDICAL HISTORY / ALLERGIES and IMAGES have been reviewed and they are noted on the chart. PHYSICAL EXAM: VITAL SIGNS: Blood pressure 143/82, heart rate is 84. Temperature is 97.7. He is 6'2 and weighs 150 kg. GENERAL IMPRESSION: Pleasant, appropriate, no acute distress. FOCUSED EXAM - BACK: Range of motion is functional in lateral rotation and flexion/extension. Right paravertebral muscle is taut but non-spasmodic. Amira's point is tender to the right with positive FABERs, compression and thigh thrust tests. Pain does radiate to the right groin indicative of right sacroiliitis. MUSCULOSKELETAL: Bilateral lower extremities motor is intact, 4/5 bilaterally. Slight weakness to right anterior tibialis. Patient does not use an assistive device to ambulate. Gait is steady. NEUROLOGICAL: Patchy hypoesthesia bilateral lower extremities L5-S1 dermatome that extends below the knee to the left and to the last three toes to the right foot. Reflexes are blunted bilaterally. DIAGNOSIS: Right sacroiliitis, lumbar spinal canal stenosis, lumbar radiculitis and lumbar spondylosis. PLAN: We will move forward with a #2 right sided SI joint injection. We will authorize to hold his Coumadin prior to the procedure. To address his radicular pain, we will start him on gabapentin 200 mg q.h.s. We will refill his baclofen at 10 mg q.h.s. at well. Patient will be followed up in the office post procedure, and he wishes to proceed.[facility] [id number] NoteCONSULTATION CONSULTATION DATE: 04/07/2022 HISTORY OF PRESENT ILLNESS: This is a pleasant, 66-year-old gentleman returning to the clinic status post right sided SI joint injection completed on 03/22/2022. The patient states he had 100% relief for three days, and stated it was the best three days of his life. During that time, he had increased stamina, energy level and felt extremely better. He has ongoing relief he rates at 70% better. The patient is on Coumadin, is unable to take NSAIDs besides Tylenol. The patient states he has not needed Tylenol since his injection. Patient did have lumbar radiofrequency ablations for his lumbar spondylosis in 12/2020. The patient is still feeling significant relief from that. 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 He states that such activity has transitioning in and out of bed and bed turning is greatly improved since the injection. Patient's REVIEW OF SYSTEMS / PAST MEDICAL HISTORY / ALLERGIES and IMAGES have been reviewed and they are noted on the chart. PHYSICAL EXAM: VITAL SIGNS: Blood pressure is 134/79. Heart rate is 78. Temperature is 96.9. He is 6'2 , weighs 147.3 kg. GENERAL IMPRESSION: Pleasant, appropriate, no acute distress. FOCUSED EXAM - BACK: Range of motion is functional in lateral rotation and flexion/extension. No reproduction of spinal axial pain upon compression of the lower lumbar facets. Fullness is palpated at the facets indicative of facet arthropathy, lumbar spondylosis. Paravertebral muscles are non-spasmodic. Amira's point mildly tender to the right with no radiating pain. Negative FABERs and compression test. MUSCULOSKELETAL: Motor is intact, 4/5 bilaterally. Muscle tone is good. Patient walks with antalgic gait, without use of assistive device. NEUROLOGICALLY: Radicular sensory is intact. Negative polyneuropathy. DIAGNOSIS: Right sacroiliitis, lumbar degenerative disc disease, lumbar spondylosis. PLAN: Overall, the patient is doing quite well. I have reiterated to him to use heat as needed in addition to a menthol rub. He is to take Tylenol 1000 p.r.n. as needed. Vitamin importance and nutrition was discussed, and patient is compliant with his vitamin regimen. We will look to possibly repeat a right SI joint injection in June, if indicated. He will be brought back to the clinic the end of May for re-evaluation. Patient agrees to this plan.[facility] [id number] NoteCONSULTATION CONSULTATION DATE: 03/03/2022 This is a 45-fphz-hkwxtqpbk returning to clinic for a 3-month follow-up. This gentleman typically gets a lumbar epidural steroid injection during the cold months with good relief. He did have lumbar radiofrequency ablation in December of 2020 which for the most part is doing well for him. Today he is complaining of right lower back and buttock pain he describes as achy and throbby with standing and walking. He rates it 6 out of 10. He is able to pinpoint the area as well and it is non-radiating. Standing, walking, evening hours and physical activity aggravate that pain. He does do stretches which are helpful. He has found heat and ice are non-helpful. Medications include Baclofen 10 mg q.h.s., Tylenol arthritis and Coumadin. He is compliant with a vitamin regimen. He denies any new vasomotor changes. REVIEW OF SYSTEMS, PAST MEDICAL HISTORY, ALLERGIES AND IMAGES: Have been reviewed and noted in the chart. PHYSICAL EXAM: VITAL SIGNS: Blood pressure 150/79, heart rate is 70, temperature is 98. Height is 6'2 , weighs 148.4kg. GENERAL APPEARANCE: Pleasant, appropriate and in no acute distress. FOCUSED EXAM: BACK: Range of motion is functional lateral rotation and flexion extension. Paravertebral muscles are non-spasmodic. Amira's point is tender to the right with radiating pain to the right hip. Compression test, Bebo's, and thigh thrust test are positive on the right, indicative of right sacroiliitis. MUSCULOSKELETAL: Motor is intact, 4 out of 5 bilaterally. The patient does not use assistive device and has good muscle tone bilaterally. NEUROLOGICAL: Radicular sensory is intact, +2 bilateral patellar and Achilles reflexes. DIAGNOSIS: Right-sided sacroiliitis, chronic lower back pain, lumbar spondylosis. PLAN: We will authorize for a right-sided SI joint injection. The patient is on Coumadin and we will get approval to hold that pre-procedure. Refill for Baclofen 10 mg q.h.s. will be sent to the pharmacy. He is currently compliant with his vitamins and this was further encouraged. The patient agrees to move forward with the procedure and will be followed up in the office following.[facility] [id number] Telephone encounter Note* Telephone Encounter - Erica Beckett - 03/01/2022 11:40 AM EDT Patient has not been seen by this specialist in more than 1 year. Please contact patient to schedule office visit. Thank you [id number] Miscellaneous Notes* Telephone Encounter - Erica Beckett - 03/01/2022 11:40 AM EDT Patient has not been seen by this specialist in more than 1 year. Please contact patient to schedule office visit. Thank you documented in this [id number] Telephone encounter Note* Telephone Encounter - Irina Nguyen - 01/18/2022 7:23 AM EDT Last visit with Cardiology (Rodolfobetsy Emperatriz) on 09/03/2020 Requested Prescriptions Pending Prescriptions Disp Refills metoprolol (TOPROL-XL) 100 mg XL tablet [Pharmacy Med Name: METOPROLOL SUCCINATE ER TABS 100MG] 90 Tablet 3 Sig: TAKE 1 TABLET DAILY No PCP on file No PCP on file [id number] Miscellaneous Notes* Telephone Encounter - Irina Nguyen - 01/18/2022 7:23 AM EDT Last visit with Cardiology (Deyvi Emperatriz) on 09/03/2020 Requested Prescriptions Pending Prescriptions Disp Refills metoprolol (TOPROL-XL) 100 mg XL tablet [Pharmacy Med Name: METOPROLOL SUCCINATE ER TABS 100MG] 90 Tablet 3 Sig: TAKE 1 TABLET DAILY No PCP on file No PCP on file documented in this [id number] Telephone encounter Note* Telephone Encounter - Anirudh Gonzalez RPh - 11/29/2021 3:11 PM EDT Pt called back, will talk to his [facility] to get [facility]ill [facility] Work Phone: [phone] Miscellaneous Notes* Telephone Encounter - Anirudh Gonzalez RPh - 11/29/2021 3:11 PM EDT Pt called back, will talk to his ACC to get refill * Telephone Encounter - Asia Laguna RN - 11/29/2021 2:52 PM EDT Left message for pt to return call to [facility] at [phone] 2nd attempt * Telephone Encounter - Cathie Whitley RN - 11/26/2021 2:46 PM EDT Left message for patient to please call back. 1st attempt * Telephone Encounter - Anirudh Gonzalez RPh - 11/25/2021 9:37 AM EDT [facility] Staff, Please contact pt re the following issue. Per 09/03/21 note pt goes to [facility] , they should refill, will deny Thanks! * Telephone Encounter - Tamiko Rodriguez PharmD - 11/24/2021 4:09 PM EDT Requested Prescriptions Pending Prescriptions Disp Refills warfarin (COUMADIN) 5 MG tablet 90 Tablet 0 Sig: Take 1 Tablet by mouth daily. No PCP on file No PCP on file documented in this [id number] Telephone encounter Note* Telephone Encounter - Asia Laguna RN - 11/29/2021 2:52 PM EDT Left message for pt to return call to [facility] at [phone] 2nd attempt [facility] Work Phone: [phone]) 196-155805-20-2022 Telephone encounter Note* Telephone Encounter - Cathie Whitley RN - 11/26/2021 2:46 PM EDT Left message for patient to please call back. 1st attempt [id number] Telephone encounter Note* Telephone Encounter - Anirudh Gonzalez RPh - 11/25/2021 9:37 AM EDT [facility] Staff, Please contact pt re the following issue. Per 09/03/21 note pt goes to [facility] , they should refill, will deny Thanks! [id number] Telephone encounter Note* Telephone Encounter - Tamiko Rodriguez PharmD - 11/24/2021 4:09 PM EDT Requested Prescriptions Pending Prescriptions Disp Refills warfarin (COUMADIN) 5 MG tablet 90 Tablet 0 Sig: Take 1 Tablet by mouth daily. No PCP on file No PCP on file [employer] Work Phone: [phone] Miscellaneous Notes* Telephone Encounter - Tamiko Rodriguez PharmD - 11/24/2021 4:06 PM EDT Last visit with Cardiology (Emperatriz Carnes) was 05/27/2020 Patient has not been seen by this specialist in more than 1 year. Please contact patient to schedule office visit. Thank you Requested Prescriptions Pending Prescriptions Disp Refills flecainide (TAMBOCOR) 100 MG tablet [Pharmacy Med Name: FLECAINIDE ACETATE TABS 100MG] 180 Tablet 3 Sig: TAKE 1 TABLET TWICE A DAY Klor-Con M20 20 MEQ controlled release tablet [Pharmacy Med Name: POTASSIUM CHLORIDE ER (DISP) [id number]] 180 Tablet 3 Sig: TAKE 1 TABLET TWICE A DAY Refused Prescriptions Disp Refills warfarin (COUMADIN) 5 MG tablet [Pharmacy Med Name: WARFARIN TABS 5MG] 90 Tablet 3 Sig: TAKE 1 TABLET DAILY (INR: 2.33) No PCP on file No PCP on file documented in this encounterMetroHealthEvaluation + Plan note Future Appointments Appointment Date:11/01/2022 09:45:00 AM Scheduled Provider:Min Tristan Jr., MD Location:[facility] Appointment Type:URO Office Visit Diagnostic Tests Pending * PSA Total 10/27/21 [facility] evaluation + Plan note Future Appointments Appointment Date:10/06/2022 09:00:00 AM Scheduled Provider: Location:[facility] Appointment Type:Surgery FT Appointment Date:11/01/2022 09:45:00 AM Scheduled Provider:Min Tristan Jr., MD Location:[facility] Appointment Type:URO Office Visit [facility] Evaluation + Plan note Future Appointments Appointment Date:01/30/2024 10:00:00 AM Scheduled Provider:CATHIE HERNANDEZ PA-C Location:[facility] Appointment Type:URO Office Visit [facility] evaluation + Plan note Future Appointments Appointment Date:01/30/2024 10:00:00 AM Scheduled Provider:CATHIE HERNANDEZ PA-C Location:[facility] Appointment Type:URO Office Visit Diagnostic Tests Pending * [facility] (paroxysmal atrial fibrillation) (HCC) Atrial fibrillation Anticoagulated Encounter for long-term (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 Preop cardiovascular exam Pre-operative cardiovascular examination JAVED on CPAP Obstructive sleep apnea (adult) (pediatric) Obesity, unspecified classification, unspecified obesity type, unspecified whether serious comorbidity present Persistent atrial fibrillation (HCC) [facility] Diagnosis PAF (paroxysmal atrial fibrillation) (HCC) Atrial fibrillation Anticoagulated Encounter for long-term (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 Preop cardiovascular exam Pre-operative cardiovascular examination JAVED on CPAP Obstructive sleep apnea (adult) (pediatric) Obesity, unspecified classification, unspecified obesity type, unspecified whether serious comorbidity present [facility] Diagnosis Persistent atrial fibrillation (HCC) Atrial fibrillation PAF (paroxysmal atrial fibrillation) (HCC) Atrial fibrillation Anticoagulated Encounter for long-term (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 Preop cardiovascular exam Pre-operative cardiovascular examination JAVED on CPAP Obstructive sleep apnea (adult) (pediatric) Obesity, unspecified classification, unspecified obesity type, unspecified whether serious comorbidity present [facility] InformationAuburn Knozen Other Evaluation note* Diagnosis Persistent atrial fibrillation (HCC)- Primary Atrial fibrillation [facility]* Diagnosis Preop cardiovascular exam Pre-operative cardiovascular examination PAF (paroxysmal atrial fibrillation) (HCC) Atrial fibrillation Anticoagulated Encounter for long-term (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 JAVED on CPAP Obstructive sleep apnea (adult) (pediatric) Obesity, unspecified classification, unspecified obesity type, unspecified whether serious comorbidity present [facility] Diagnosis Persistent atrial fibrillation (HCC)- Primary Atrial fibrillation Anticoagulated Encounter for long-term (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 JAVED on CPAP Obstructive sleep apnea (adult) (pediatric) [facility]* Diagnosis PAF (paroxysmal atrial fibrillation) (HCC) Atrial fibrillation Anticoagulated Encounter for long-term (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 Preop cardiovascular exam Pre-operative cardiovascular examination JAVED on CPAP Obstructive sleep apnea (adult) (pediatric) Obesity, unspecified classification, unspecified obesity type, unspecified whether serious comorbidity present [facility] - Reported* Type Description Date Medical History Family history of malignant neop lasm of digestive organs Medical History Malignant neoplasm of ascending colon Medical History Tubular adenoma of colon Medical History Encounter for screening for lavinia gnant neoplasm of colon Medical History A-fib Medical History essential hypertension Medical History cutaneous candidiasis Medical History pulmonary embolism Medical History obstructive sleep apnea Medical History peripheral neuralgia Medical History hematuria Medical History pulmonary hypertension Surgical History colon resection Surgical History pilonidal cyst removal Hospitalization History No Hospitalization histo ry information [employer] Other Hospital course Narrative No data available for this section [facility] Discharge instructions No data available for this section [facility] [place] progress note No data available for this section [facility] Summary Purpose Family History No Family History Records FoundNo Family History Records FoundNo Family History Records FoundNo Family History Records FoundNo Family History Records FoundNo Family History Records Found Advance Directives No Advanced Directives Records FoundNo Advanced Directives Records FoundNo Advanced Directives Records FoundNo Advanced Directives Records FoundNo Advanced Directives Records FoundNo Advanced Directives Records Found Additional Source Comments (unrecognized sect ion and content) No Status Records FoundNo Status Records FoundNo Status Records FoundNo Status Records FoundNo Status Records FoundNo Status Records Found INFORMATION SOURCE (unrecogn ized section and content) DATE CREATED AUTHOR 01/02/2018 [facility] DATE CREATED AUTHOR AUTHOR'S ORGANIZ ATION 04/24/2018 [employer] DATE CREATED AUTHOR AUTHOR'S ORGANIZ ATION 05/06/2018 [facility] DATE CREATED AUTHOR AUTHOR'S ORGANIZ ATION 12/16/2022 [facility] DATE CREATED AUTHOR AUTHOR'S ORGANIZ ATION 02/19/2023 [facility] DATE CREATED AUTHOR AUTHOR'S ORGANIZ ATION 03/31/2023 [employer] Reason for Visit (unrecogniz ed section and content) Prescription-CPAP Reason Comments Refill Reason Onset Date Comments Refill 11/24/2021 Reason Onset Date Comments Refill 02/14/2023 Reason Onset Date Comments Question about medication 02/16/2023 Reason Onset Date Comments Refill 02/16/2023 Reason Comments Atrial fibrillation/flutter Care Teams (unrecognized sec tion and content) 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 Start Date End Date Emperatriz Carnes DO [address] [place] [address] Physician Electrophysiology 04/14/20 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 Start Date End Date Emperatriz Carnes DO [address] [place] [address] Physician Electrophysiology 04/14/20 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 Start Date End Date Emperatriz Carnes DO [address] [place] [address] Physician Electrophysiology 04/14/20 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 Start Date End Date Emperatriz Carnes DO [address] [place] [address] Physician Electrophysiology 04/14/20 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 Start Date End Date Emperatriz Carnes DO [address] [place] [address] Physician Electrophysiology 04/14/20 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 Start Date End Date Emperatriz Carnes DO [address] [place] [address] Physician Electrophysiology 04/14/20 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 Start Date End Date Emperatriz Carnes DO [address] [place] [address] Physician Electrophysiology 04/14/20 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 This clinical summary was aggregated from multiple sources. Caution should be exercised in using it in the provision of clinical care. This summary normalizes information from multiple sources, and as a consequence, information in this document may materially change the coding, format and clinical context of patient data. In addition, data may be omitted in some cases. CLINICAL DECISIONS SHOULD BE BASED ON THE PRIMARY CLINICAL RECORDS. [facility] [employer] [facility]. provides no warranty or guarantee of the accuracy or completeness of information in this document.
--- NOTE | 2023-09-28 08:16 | P.CN_ITS ---
Consult Note: HPI Data of Consult Patient: known to practice within the last 3 years Requesting Physician: Trista Lyman NP Primary Care Provider: Rocio Bagley MD Consult Narrative Reason for consult: f/u Narrative: Evangelist Ybarra a pleasant 67 year old male presents for evaluation and management of chronic pain, today 2/10 in left side of neck and right buttock/hip/low back, pain increases to 8/10 by end of day. Patient has been getting massages and finding benefit with that. Patient finds moderate improvement with gabapentin 600mg BID and tizanidine 4mg HS (cannot tolerate daytime doses). Patient engaged in HEP with mild benefit cc:: CC: Trista Lyman NP Review of Systems 2 ROS0 Status of ROS 10 or more systems reviewed and unremark able except as noted in history and below PFSH PFS Medical History Atrial fibrillation ?I48.91 - Unspecified atrial fibrillation (ICD-10) Low back pain ?M54.50 - Low back pain, unspecified (ICD-10) Osteoarthritis ?M19.90 - Unspecified osteoarthritis, unspecified site (ICD-10) Colon cancer ?C18.9 - Malignant neoplasm of colon, unspecified (ICD-10) Obesity ?E66.9 - Obesity, unspecified (ICD-10) Kidney stone ?N20.0 - Calculus of kidney (ICD-10) Enlarged prostate ?N40.0 - Benign prostatic hyperplasia without lower urinary tract symptoms (ICD-10) Pulmonary embolism ?I26.99 - Other pulmonary embolism without acute cor pulmonale (ICD-10) Sleep apnea ?G47.30 - Sleep apnea, unspecified (ICD-10) High cholesterol ?E78.00 - Pure hypercholesterolemia, unspecified (ICD-10) Hypertension ?I10 - Essential (primary) hypertension (ICD-10) Surgical History S/P TURP ?Z90.79 - Acquired absence of other genital organ(s) (ICD-10) History of colon resection ?Z90.49 - Acquired absence of other specified parts of digestive tract (ICD- 10) Meds Home Medications and Allergies Home Medications ?Medication ?Instructions ?Recorded ?Confirmed ?Type atorvastatin 20 mg tablet 20 mg PO QDAY 12/22/22 04/25/23 History calcium carbonate 600 mg calcium 300 mg PO DAILY 12/22/22 04/25/23 History (1,500 mg) tablet flecainide 100 mg tablet 100 mg PO Q12H 12/22/22 04/25/23 History hydrochlorothiazide 25 mg tablet 25 mg PO QDAY 12/22/22 04/25/23 History lisinopril 40 mg tablet 40 mg PO QDAY 12/22/22 04/25/23 History loratadine 10 mg tablet 10 mg PO DAILY 12/22/22 04/25/23 History metoprolol succinate 100 mg 100 mg PO QDAY 12/22/22 04/25/23 History tablet,extended release 24 hr multivitamin 1 tab PO DAILY 12/22/22 04/25/23 History olopatadine 0.1 % eye drops drp ophthalmic (eye) BID 12/22/22 History potassium chloride 20 mEq 20 meq PO BID 12/22/22 04/25/23 History tablet,extended release(part/cryst) (Klor-Con M) vitamin B complex (B 1 tab PO DAILY 12/22/22 04/25/23 History Complex-Vitamin B12 tablet) warfarin 5 mg tablet 5 mg PO QDAY 12/22/22 04/25/23 History gabapentin 300 mg capsule 300 mg PO TID #360 caps 06/15/23 Rx gabapentin 300 mg capsule 300 mg PO TID #360 caps 06/22/23 Rx tizanidine 4 mg tablet 4 mg PO DAILY 06/22/23 06/22/23 History tizanidine 4 mg tablet 4 mg PO DAILY PRN muscle 07/24/23 Rx spasticity #60 tabs Allergies Allergy/AdvReac Type Severity Reaction Status Date / Time No Known Drug Allergies Allergy Verified 04/25/23 06:59 Exam Constitutional Documenting provider has reviewed patient's vital signs: yes Common normals: no apparent distress, oriented x3, healthy appearing, alert and well nourished General appearance: cooperative HENMT Common normals: normocephalic, hearing grossly normal bilaterally and moist oral mucous membranes Head and scalp: normocephalic Eye Common normals: PERRL Pupil: PERRL Neck & C-Spine Common normals: full ROM General: normal visual inspection Cervical spine: cervical ROM normal, cervical spine tenderness and paracervical muscle tenderness Neck images: 2 1. Chest Common normals: inspection of chest normal Respiratory Common normals: normal respiratory effort, no retractions and no use of accessory muscles Neuro Common normals: oriented x3, CN's II-XII intact bilaterally, moves all extremities, no focal motor deficits, no sensory deficits noted and deep tendon reflexes 2+ bilaterally Sensorium/orientation: alert Motor exam: strength 5/5 throughout and no movement abnormalities noted Psych Common normals: mental status grossly normal, thought process normal, cooperative, affect normal, speech normal and activity/motor behavior normal Speech: normal speech Thought process: normal thought process Results Additional Findings Additional findings: If on a controlled substance or opioids, I have checked an [place] report on this patient and there are no aberrancies noted in the prescribing history.??If on a controlled substance or opioid a drug screen was completed and reviewed within the last year, and if there has not been a drug screen completed we ordered one today to monitor higher risk, state monitored pain medication use. As part of providing excellent, safe, comprehensive care, the following was completed at our patient's visit: 1. A medication reconciliation and review to ensure accurate knowledge of current/active medications, including asking our patients to inform us about any [id number]-[id number] medications or herbal remedies/nutritional supplements/alternative remedies. 2. A review to specifically ensure our patients have had annual screening for screening for depression, screening for tobacco use, and screening for unhealthy alcohol use. For concerning screenings had a discussion with the patient, provided patient education, and recommended follow-up with primary care provider when appropriate. If patient noted with a risk of falling, they received education on strength, gait, and balance training to prevent future risk of falling. 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 Food and Drug Administration (FDA) is warning that respiratory depression may occur in patients using gabapentin (Neurontin, Gralise, Horizant) or pregabalin (Lyrica, Lyrica CR) who have respiratory risk factors. These include the use of opioid pain medicines and other drugs that depress the central nervous system, and conditions such as chronic obstructive pulmonary disease (COPD) that reduce lung function. The elderly are also at higher risk.? (5) Piriformis syndrome of right side: Assessment and Plan: engaged in HEP with mild benefit Plan return to office for right paracervical, levator scapulae, trapezius TPI with Dr Marie PT for right piriformis syndrome continue current medication regimen, tolerating well without side effects f/u 3 months for medication management
--- NOTE | 2023-09-28 08:33 | PM.CN ---
Consult Note: HPI Data of Consult Requesting Physician: Trista Lyman NP Primary Care Provider: Rocio Bagley MD Consult Narrative cc:: CC: Trista Lyman NP [facility] Medical History Atrial fibrillation ?I48.91 - Unspecified atrial fibrillation (ICD-10) Low back pain ?M54.50 - Low back pain, unspecified (ICD-10) Osteoarthritis ?M19.90 - Unspecified osteoarthritis, unspecified site (ICD-10) Colon cancer ?C18.9 - Malignant neoplasm of colon, unspecified (ICD-10) Obesity ?E66.9 - Obesity, unspecified (ICD-10) Kidney stone ?N20.0 - Calculus of kidney (ICD-10) Enlarged prostate ?N40.0 - Benign prostatic hyperplasia without lower urinary tract symptoms (ICD-10) Pulmonary embolism ?I26.99 - Other pulmonary embolism without acute cor pulmonale (ICD-10) Sleep apnea ?G47.30 - Sleep apnea, unspecified (ICD-10) High cholesterol ?E78.00 - Pure hypercholesterolemia, unspecified (ICD-10) Hypertension ?I10 - Essential (primary) hypertension (ICD-10) Surgical History S/P TURP ?Z90.79 - Acquired absence of other genital organ(s) (ICD-10) History of colon resection ?Z90.49 - Acquired absence of other specified parts of digestive tract (ICD-10) Meds Home Medications and Allergies Home Medications ?Medication ?Instructions ?Recorded ?Confirmed ?Type atorvastatin 20 mg tablet 20 mg PO QDAY 12/22/22 04/25/23 History calcium carbonate 600 mg calcium 300 mg PO DAILY 12/22/22 04/25/23 History (1,500 mg) tablet flecainide 100 mg tablet 100 mg PO Q12H 12/22/22 04/25/23 History hydrochlorothiazide 25 mg tablet 25 mg PO QDAY 12/22/22 04/25/23 History lisinopril 40 mg tablet 40 mg PO QDAY 12/22/22 04/25/23 History loratadine 10 mg tablet 10 mg PO DAILY 12/22/22 04/25/23 History metoprolol succinate 100 mg 100 mg PO QDAY 12/22/22 04/25/23 History tablet,extended release 24 hr multivitamin 1 tab PO DAILY 12/22/22 04/25/23 History olopatadine 0.1 % eye drops drp ophthalmic (eye) BID 12/22/22 History potassium chloride 20 mEq 20 meq PO BID 12/22/22 04/25/23 History tablet,extended release(part/cryst) (Klor-Con M) vitamin B complex (B 1 tab PO DAILY 12/22/22 04/25/23 History Complex-Vitamin B12 tablet) warfarin 5 mg tablet 5 mg PO QDAY 12/22/22 04/25/23 History gabapentin 300 mg capsule 300 mg PO TID #360 caps 06/15/23 Rx gabapentin 300 mg capsule 300 mg PO TID #360 caps 06/22/23 Rx tizanidine 4 mg tablet 4 mg PO DAILY 06/22/23 06/22/23 History tizanidine 4 mg tablet 4 mg PO DAILY PRN muscle 07/24/23 Rx spasticity #60 tabs Allergies Allergy/AdvReac Type Severity Reaction Status Date / Time No Known Drug Allergies Allergy Verified 04/25/23 06:59 Assessment and Plan Assessment and Plan (1) Cervical spondylosis: (2) Muscle spasm: (3) Hx of nursing home use of blood thinners: Assessment and Plan: avoid NSAIDs (4) Neuropathy: Assessment and Plan: The patient was advised that U.S. Food and Drug Administration (FDA) is warning that respiratory depression may occur in patients using gabapentin (Neurontin, Gralise, Horizant) or pregabalin (Lyrica, Lyrica CR) who have respiratory risk factors. These include the use of opioid pain medicines and other drugs that depress the central nervous system, and conditions such as chronic obstructive pulmonary disease (COPD) that reduce lung function. The elderly are also at higher risk.? (5) Piriformis syndrome of right side: Assessment and Plan: engaged in HEP with mild benefit Plan return to office for right paracervical, levator scapulae, trapezius TPI with Dr Marie PT for right piriformis syndrome continue current medication regimen, tolerating well without side effects f/u 3 months for medication management
== END 2023-09-28 07:55 | disposition home or self-care (01) ==
LOC: PM 07:55
PROVIDERS: PCP Family Medicine; Visit Provider Nurse Practitioner
DX: M47.812 Spondylosis without myelopathy or radiculopathy, cervical region (principal); M62.838 Other muscle spasm; Z79.01 Long term (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; G62.9 Polyneuropathy, unspecified; G57.01 Lesion of sciatic nerve, right lower limb
CPT/HCPCS: G0463

== ENCOUNTER 2023-09-28 10:26 | Outpatient (RCR) | payer MEDICARE, SELFPAY | END 2023-10-19 14:48 | disposition home or self-care (01) | LOC: PT 10:26 | PROVIDERS: PCP Family Medicine; Visit Provider Nurse Practitioner | DX: G57.01 Lesion of sciatic nerve, right lower limb (principal); R26.2 Difficulty in walking, not elsewhere classified | CPT/HCPCS: 97012; 97110; 97113; 97140; 97162 ==

== ENCOUNTER 2023-10-09 00:26 | Outpatient (RCR) | payer MEDICARE, SELFPAY | END 2023-11-07 18:03 | disposition home or self-care (01) | LOC: MM 00:26 | PROVIDERS: PCP Family Medicine; Visit Provider Internal Medicine | DX: Z51.81 Encounter for therapeutic drug level monitoring (principal); Z79.01 Long term (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 | CPT/HCPCS: 85610; G0463 ==

== ENCOUNTER 2023-10-10 10:58 | Outpatient (OUT) | payer MEDICARE, SELFPAY ==
--- NOTE | 2023-10-10 | CONS_ITS ---
PROCEDURE DATE: 10/10/2023 PROCEDURE: Trigger point injection left levator scapulae and left trapezius, performed in the office. PREOPERATIVE DIAGNOSIS: Pain secondary to myofascial dysfunction and spasm of the left levator scapulae and left trapezius. POSTOPERATIVE DIAGNOSIS: Pain secondary to myofascial dysfunction and spasm of the left levator scapulae and left trapezius. SOLUTION USED FOR INJECTION: 2 mL of 2% lidocaine, 2 mL of 0.25% Marcaine and 10 mg of Kenalog, a total of 5 mL, and 2.5 mL used for injection at each muscle group. IMMEDIATE COMPLICATIONS: None. PROCEDURE: After informed consent was obtained from the patient, placed in the supine position. Skin overlying the area was prepped with alcohol. A 25 gauge, 1 ?? needle was inserted into the substance of the left trapezius at approximately the level of the spinous process of C6. Needle tip was advanced until there was a mild twitch response. No indication of intravascular or intraneural or intrapleural needle tip placement. 2.5 mL of solution was injected. This was done in a similar fashion into the left levator scapulae muscle. Post-op needle was removed. No evidence of post procedure pneumothorax was noted. He reports a marked reduction in his pain symptoms. He was discharged home after meeting criteria. CATHERINE
== END 2023-10-10 10:59 | disposition home or self-care (01) ==
LOC: PM 10:58
PROVIDERS: PCP Family Medicine; Visit Provider Anesthesiology Pain Medicine
DX: M79.18 Myalgia, other site (principal); M62.838 Other muscle spasm
CPT/HCPCS: 20552

== ENCOUNTER 2023-11-08 04:39 | Outpatient (RCR) | payer MEDICARE, SELFPAY | END 2023-12-08 12:01 | disposition home or self-care (01) | LOC: MM 04:39 | PROVIDERS: PCP Family Medicine; Visit Provider Internal Medicine | DX: Z51.81 Encounter for therapeutic drug level monitoring (principal); Z79.01 Long term (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 | CPT/HCPCS: 85610; G0463 ==

== ENCOUNTER 2023-12-11 03:30 | Outpatient (RCR) | payer MEDICARE, SELFPAY | END 2024-01-05 11:08 | disposition home or self-care (01) | LOC: MM 03:30 | PROVIDERS: PCP Family Medicine; Visit Provider Internal Medicine | DX: Z51.81 Encounter for therapeutic drug level monitoring (principal); Z79.01 Long term (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 | CPT/HCPCS: 85610; G0463 ==

== ENCOUNTER 2024-01-08 00:26 | Outpatient (RCR) | payer MEDICARE, SELFPAY | END 2024-02-07 10:05 | disposition home or self-care (01) | LOC: MM 00:26 | PROVIDERS: PCP Family Medicine; Visit Provider Internal Medicine | DX: Z51.81 Encounter for therapeutic drug level monitoring (principal); Z79.01 Long term (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 | CPT/HCPCS: 85610; G0463 ==

== ENCOUNTER 2024-01-17 07:58 | Outpatient (OUT) | payer MEDICARE, SELFPAY ==
--- NOTE | 2024-01-17 08:00 | PM.CN ---
Consult Note: HPI Data of Consult Patient: known to practice within the last 3 years Requesting Physician: Trista Lyman NP Primary Care Provider: Rocio Bagley MD Consult Narrative Reason for consult: f/u Narrative: Evangelist Ybarra a pleasant 67 year old male presents for evaluation and management of chronic pain, today 2/10 in left side of neck and right buttock/hip/low back, pain increases to 8/10 by end of day. Patient has been getting massages and finding benefit with that. Patient finds moderate improvement with gabapentin 600mg BID and tizanidine 4mg HS (cannot tolerate daytime doses). Patient engaged in HEP with mild benefit. Recently completed PT without further improvement of chronic low back pain. cc:: CC: Trista Lyman NP Review of Systems ROS Status of ROS 10 or more systems reviewed and unremarkable except as noted in history and below Musculoskeletal Reports: back pain and neck pain PFSH PFSH Medical History Atrial fibrillation ?I48.91 - Unspecified atrial fibrillation (ICD-10) Low back pain ?M54.50 - Low back pain, unspecified (ICD-10) Osteoarthritis ?M19.90 - Unspecified osteoarthritis, unspecified site (ICD-10) Colon cancer ?C18.9 - Malignant neoplasm of colon, unspecified (ICD-10) Obesity ?E66.9 - Obesity, unspecified (ICD-10) Kidney stone ?N20.0 - Calculus of kidney (ICD-10) Enlarged prostate ?N40.0 - Benign prostatic hyperplasia without lower urinary tract symptoms (ICD-10) Pulmonary embolism ?I26.99 - Other pulmonary embolism without acute cor pulmonale (ICD-10) Sleep apnea ?G47.30 - Sleep apnea, unspecified (ICD-10) High cholesterol ?E78.00 - Pure hypercholesterolemia, unspecified (ICD-10) Hypertension ?I10 - Essential (primary) hypertension (ICD-10) Surgical History S/P TURP ?Z90.79 - Acquired absence of other genital organ(s) (ICD-10) History of colon resection ?Z90.49 - Acquired absence of other specified parts of digestive tract (ICD-10) Meds Home Medications and Allergies Home Medications ?Medication ?Instructions ?Recorded ?Confirmed ?Type atorvastatin 20 mg tablet 20 mg PO QDAY 12/22/22 04/25/23 History calcium carbonate 300 mg PO DAILY 12/22/22 04/25/23 History flecainide 100 mg tablet 100 mg PO Q12H 12/22/22 04/25/23 History hydrochlorothiazide 25 mg tablet 25 mg PO QDAY 12/22/22 04/25/23 History lisinopril 40 mg tablet 40 mg PO QDAY 12/22/22 04/25/23 History loratadine 10 mg tablet 10 mg PO DAILY 12/22/22 04/25/23 History metoprolol succinate 100 mg 100 mg PO QDAY 12/22/22 04/25/23 History tablet,extended release 24 hr multivitamin 1 tab PO DAILY 12/22/22 04/25/23 History olopatadine 0.1 % eye drops drp ophthalmic (eye) BID 12/22/22 History potassium chloride 20 mEq 20 meq PO BID 12/22/22 04/25/23 History tablet,extended release(part/cryst) (Klor-Con M) vitamin B complex (B 1 tab PO DAILY 12/22/22 04/25/23 History Complex-Vitamin B12 tablet) warfarin 5 mg tablet 5 mg PO QDAY 12/22/22 04/25/23 History gabapentin 300 mg capsule 300 mg PO TID #360 caps 06/15/23 Rx gabapentin 300 mg capsule 300 mg PO TID #360 caps 06/22/23 Rx tizanidine 4 mg tablet 4 mg PO DAILY 06/22/23 06/22/23 History tizanidine 4 mg tablet 4 mg PO DAILY PRN muscle 07/24/23 Rx spasticity #60 tabs Allergies Allergy/AdvReac Type Severity Reaction Status Date / Time No Known Drug Allergies Allergy Verified 04/25/23 06:59 Exam Constitutional Documenting provider has reviewed patient's vital signs: yes Common normals: no apparent distress, oriented x3, healthy appearing, alert and well nourished General appearance: cooperative HENMT Common normals: normocephalic, hearing grossly normal bilaterally and moist oral mucous membranes Head and scalp: normocephalic Eye Common normals: PERRL Pupil: PERRL Neck & C-Spine Common normals: full ROM General: normal visual inspection Cervical spine: cervical ROM normal, cervical spine tenderness and paracervical muscle tenderness Chest Common normals: inspection of chest normal Respiratory Common normals: normal respiratory effort, no retractions and no use of accessory muscles Back & Pelvis Lumbar spine/lower back: normal to inspection, ROM limited, pain with ROM and straight leg raise negative bilaterally Sacroiliac joints: SI joints normal Other: increase in pain with standing/ambulation, improved with sitting and forward flexion Neuro Common normals: oriented x3, CN's II-XII intact bilaterally, moves all extremities, no focal motor deficits, no sensory deficits noted and deep tendon reflexes 2+ bilaterally Sensorium/orientation: alert Motor exam: strength 5/5 throughout and no movement abnormalities noted Psych Common normals: mental status grossly normal, thought process normal, cooperative, affect normal, speech normal and activity/motor behavior normal Speech: normal speech Thought process: normal thought process Results Additional Findings Additional findings: If on a controlled substance or opioids, I have checked an [place] report on this patient and there are no aberrancies noted in the prescribing history.??If on a controlled substance or opioid a drug screen was completed and reviewed within the last year, and if there has not been a drug screen completed we ordered one today to monitor higher risk, state monitored pain medication use. As part of providing excellent, safe, comprehensive care, the following was completed at our patient's visit: 1. A medication reconciliation and review to ensure accurate knowledge of current/active medications, including asking our patients to inform us about any [id number] medications or herbal remedies/nutritional supplements/alternative remedies. 2. A review to specifically ensure our patients have had annual screening for screening for depression, screening for tobacco use, and screening for unhealthy alcohol use. For concerning screenings had a discussion with the patient, provided patient education, and recommended follow-up with primary care provider when appropriate. If patient noted with a risk of falling, they received education on strength, gait, and balance training to prevent future risk of falling. 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 Food and Drug Administration (FDA) is warning that respiratory depression may occur in patients using gabapentin (Neurontin, Gralise, Horizant) or pregabalin (Lyrica, Lyrica CR) who have respiratory risk factors. These include the use of opioid pain medicines and other drugs that depress the central nervous system, and conditions such as chronic obstructive pulmonary disease (COPD) that reduce lung function. The elderly are also at higher risk.? (8) Piriformis syndrome of right side: Assessment and Plan: engaged in HEP with mild benefit Plan declining JONEL for lumbar stenosis with NC, consider updating lumbar MRI in the future increase gabapentin 900mg BID, risks vs benefits reviewed pt requesting back brace for pain/posture, will order zynex thoracic/lumbosacral brace for back pain, to wear when walking/standing but not to be worn everyday for long periods time continue tizanidine 4mg HS myofascial pain continue HEP as tolerated f/u 3 months, sooner if needed
== END 2024-01-17 07:59 | disposition home or self-care (01) ==
PROVIDERS: PCP Family Medicine; Visit Provider Nurse Practitioner
DX: M47.816 Spondylosis without myelopathy or radiculopathy, lumbar region (principal); M51.36 Other intervertebral disc degeneration, lumbar region; M48.062 Spinal stenosis, lumbar region with neurogenic claudication; M47.812 Spondylosis without myelopathy or radiculopathy, cervical region; M62.838 Other muscle spasm; Z79.899 Other long term (current) drug therapy; G62.9 Polyneuropathy, unspecified; G57.01 Lesion of sciatic nerve, right lower limb
CPT/HCPCS: G0463

== ENCOUNTER 2024-01-22 10:33 | Outpatient (OUT) | payer MEDICARE, SELFPAY ==
[2024-01-22 12:13] LABS: Prostate Specific Antigen Dx 1.34 ng/mL (<=4.00)
== END 2024-01-22 10:34 | disposition home or self-care (01) ==
LOC: LAB 10:36
PROVIDERS: PCP Family Medicine; Visit Provider Physician Assistant
DX: N40.1 Benign prostatic hyperplasia with lower urinary tract symptoms (principal); R97.20 Elevated prostate specific antigen [PSA]
CPT/HCPCS: 36415; 84153

== ENCOUNTER 2024-02-08 00:22 | Outpatient (RCR) | payer MEDICARE, SELFPAY | END 2024-03-08 09:58 | disposition home or self-care (01) | LOC: MM 00:22 | PROVIDERS: PCP Family Medicine; Visit Provider Internal Medicine | DX: Z51.81 Encounter for therapeutic drug level monitoring (principal); Z79.01 Long term (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 | CPT/HCPCS: 85610; G0463 ==

== ENCOUNTER 2024-03-11 01:34 | Outpatient (RCR) | payer MEDICARE, SELFPAY | END 2024-04-08 23:56 | disposition home or self-care (01) | LOC: MM 01:34 | PROVIDERS: PCP Family Medicine; Visit Provider Internal Medicine | DX: Z51.81 Encounter for therapeutic drug level monitoring (principal); Z79.01 Long term (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 | CPT/HCPCS: 85610; G0463 ==

== ENCOUNTER 2024-04-09 02:44 | Outpatient (RCR) | payer MEDICARE, SELFPAY | END 2024-05-09 23:47 | disposition home or self-care (01) | LOC: MM 02:44 | PROVIDERS: PCP Family Medicine; Visit Provider Internal Medicine | DX: Z51.81 Encounter for therapeutic drug level monitoring (principal); Z79.01 Long term (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 | CPT/HCPCS: 85610; G0463 ==

== ENCOUNTER 2024-04-18 08:00 | Outpatient (OUT) | payer MEDICARE, SELFPAY ==
--- NOTE | 2024-04-18 08:02 | PM.CN ---
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 Patient has been getting massages and finding benefit with that. Patient finds moderate improvement with gabapentin 900mg BID and tizanidine 4mg HS (cannot tolerate daytime doses). Patient engaged in HEP with mild benefit, failed 6 weeks of formal PT. At last visit patient had requested a back brace, however he decided not to proceed with it. He is interested in improving his posture due to significant myofascial pain in neck and back. cc:: CC: Trista Lyman NP Review of Systems ROS Status of ROS 10 or more systems reviewed and unremarkable except as noted in history and below Musculoskeletal Reports: back pain and neck pain PFSH PFSH Medical History Atrial fibrillation ?I48.91 - Unspecified atrial fibrillation (ICD-10) Low back pain ?M54.50 - Low back pain, unspecified (ICD-10) Osteoarthritis ?M19.90 - Unspecified osteoarthritis, unspecified site (ICD-10) Colon cancer ?C18.9 - Malignant neoplasm of colon, unspecified (ICD-10) Obesity ?E66.9 - Obesity, unspecified (ICD-10) Kidney stone ?N20.0 - Calculus of kidney (ICD-10) Enlarged prostate ?N40.0 - Benign prostatic hyperplasia without lower urinary tract symptoms (ICD-10) Pulmonary embolism ?I26.99 - Other pulmonary embolism without acute cor pulmonale (ICD-10) Sleep apnea ?G47.30 - Sleep apnea, unspecified (ICD-10) High cholesterol ?E78.00 - Pure hypercholesterolemia, unspecified (ICD-10) Hypertension ?I10 - Essential (primary) hypertension (ICD-10) Surgical History S/P TURP ?Z90.79 - Acquired absence of other genital organ(s) (ICD-10) History of colon resection ?Z90.49 - Acquired absence of other specified parts of digestive tract (ICD-10) Meds Home Medications and Allergies Home Medications ?Medication ?Instructions ?Recorded ?Confirmed ?Type atorvastatin 20 mg tablet 20 mg PO QDAY 12/22/22 04/25/23 History calcium carbonate 300 mg PO DAILY 12/22/22 04/25/23 History flecainide 100 mg tablet 100 mg PO Q12H 12/22/22 04/25/23 History hydrochlorothiazide 25 mg tablet 25 mg PO QDAY 12/22/22 04/25/23 History lisinopril 40 mg tablet 40 mg PO QDAY 12/22/22 04/25/23 History loratadine 10 mg tablet 10 mg PO DAILY 12/22/22 04/25/23 History metoprolol succinate 100 mg 100 mg PO QDAY 12/22/22 04/25/23 History tablet,extended release 24 hr multivitamin 1 tab PO DAILY 12/22/22 04/25/23 History olopatadine 0.1 % eye drops drp ophthalmic (eye) BID 12/22/22 History potassium chloride 20 mEq 20 meq PO BID 12/22/22 04/25/23 History tablet,extended release(part/cryst) (Klor-Con M) vitamin B complex (B 1 tab PO DAILY 12/22/22 04/25/23 History Complex-Vitamin B12 tablet) warfarin 5 mg tablet 5 mg PO QDAY 12/22/22 04/25/23 History tizanidine 4 mg tablet 4 mg PO DAILY 06/22/23 06/22/23 History gabapentin 300 mg capsule 900 mg PO BID 01/17/24 01/17/24 History Allergies Allergy/AdvReac Type Severity Reaction Status Date / Time No Known Drug Allergies Allergy Verified 04/25/23 06:59 Exam Constitutional Documenting provider has reviewed patient's vital signs: yes Common normals: no apparent distress, oriented x3, healthy appearing, alert and well nourished General appearance: cooperative HENMT Common normals: normocephalic, hearing grossly normal bilaterally and moist oral mucous membranes Head and scalp: normocephalic Eye Common normals: PERRL Pupil: PERRL Neck & C-Spine Common normals: full ROM General: normal visual inspection Cervical spine: cervical ROM normal, cervical spine tenderness, paracervical muscle tenderness and paracervical muscle spasm Other: trigger points noted to left splenius capitus and paracervical muscles Chest Common normals: inspection of chest normal Respiratory Common normals: normal respiratory effort, no retractions and no use of accessory muscles Back & Pelvis Lumbar spine/lower back: normal to inspection, ROM limited, pain with ROM and straight leg raise negative bilaterally Sacroiliac joints: SI joint(s) abnormal Other: right sij positive greer(patricks), gaenslens, thigh thrust, compression test strength 5/5 in BLE Neuro Common normals: oriented x3, CN's II-XII intact bilaterally, moves all extremities, no focal motor deficits, no sensory deficits noted and deep tendon reflexes 2+ bilaterally Sensorium/orientation: alert Motor exam: strength 5/5 throughout and no movement abnormalities noted Psych Common normals: mental status grossly normal, thought process normal, cooperative, affect normal, speech normal and activity/motor behavior normal Speech: normal speech Thought process: normal thought process Results Additional Findings Additional findings: If on a controlled substance or opioids, I have checked an [place] report on this patient and there are no aberrancies noted in the prescribing history.??If on a controlled substance or opioid a drug screen was completed and reviewed within the last year, and if there has not been a drug screen completed we ordered one today to monitor higher risk, state monitored pain medication use. As part of providing excellent, safe, comprehensive care, the following was completed at our patient's visit: 1. A medication reconciliation and review to ensure accurate knowledge of current/active medications, including asking our patients to inform us about any cdwg-sra-gwnhiix medications or herbal remedies/nutritional supplements/alternative remedies. 2. A review to specifically ensure our patients have had annual screening for screening for depression, screening for tobacco use, and screening for unhealthy alcohol use. For concerning screenings had a discussion with the patient, provided patient education, and recommended follow-up with primary care provider when appropriate. If patient noted with a risk of falling, they received education on strength, gait, and balance training to prevent future risk of falling. Assessment and Plan Assessment and Plan (1) Sacroiliac joint dysfunction: (2) Lumbar spondylosis: (3) Lumbar degenerative disc disease: (4) Lumbar stenosis with neurogenic claudication: (5) Cervical spondylosis: (6) Muscle spasm: (7) Hx of longterm use of blood thinners: Assessment and Plan: avoid NSAIDs (8) Neuropathy: Assessment and Plan: The patient was advised that U.S. Food and Drug Administration (FDA) is warning that respiratory depression may occur in patients using gabapentin (Neurontin, Gralise, Horizant) or pregabalin (Lyrica, Lyrica CR) who have respiratory risk factors. These include the use of opioid pain medicines and other drugs that depress the central nervous system, and conditions such as chronic obstructive pulmonary disease (COPD) that reduce lung function. The elderly are also at higher risk.? (9) Piriformis syndrome of right side: Assessment and Plan: engaged in HEP with mild benefit Plan right SIJ injection under fluoroscopy, risks vs benefits reviewed f/u with physician at next visit for left splenius capitus and paracervical TPI, previous injections provided significant improvement per pt continue gabapentin 900mg BID, risks vs benefits reviewed continue tizanidine 4mg HS myofascial pain continue HEP as tolerated
--- OUTSIDE RECORDS SUMMARY | 2024-04-18 08:05 | XMS_ITS | CCD ---
Author Organization [facility] Care Team Providers Care Purchasing Analyst Name Role Phone PHYSICIAN, DEFAULT Unavailable Unavailable PHYSICIAN, DEFAULT Unavailable Unavailable DONALD LIZARRAGA Unavailable Unavailable PHYSICIAN, DEFAULT Unavailable Unavailable PHYSICIAN, DEFAULT Unavailable Unavailable DONALD LIZARRAGA Unavailable Unavailable Devin Greer Unavailable Unavailable Donald Lizarraga Unavailable Unavaila ble DONALD LIZARRAGA Primary Care Physician Karbetsy DO, Emperatriz Unavailable Karim DO, Emperatriz Unavailable Donald Lizarraga Unavailable DR JADEN DOBBS Consulting Unavailable VILLA ., DR JADEN Rodriguez Admitting Unavailable VILLA ., DR JADEN Rodriguez Attending Unavailable ELHAM, DR DONALD Ruano Primary Care Unavailable CHARAN MENDOZA Consulting Unavailable FAWWAD, WOMACK H Admitting Unavailable FAWWAD, WOMACK H Attending Unavailable DR DONALD LIZARRAGA Primary Care Unavailable DR DONALD LIZARRAGA Primary Care Unavailable FAWWAD, WOMACK H Attending Unavailable FAWWAD, WOMACK H Admitting Unavailable ELHAM, DR DONALD Ruano Primary Care Unavailable MASON .CHARAN Consulting Unavailable ALLEN ., DR JADEN Rodriguez Admitting Unavailable VILLA ., DR JADEN Rodriguez Attending Unavailable LAKSHMIPATHSierra ., NARENDRANATH Admitting Rohcelle vailaDR DONALD Pineda Primary Care Unavailable JEET KLEIN Consulting Unavailable LAKSHMIPATHY ., NARENDRANATH Attending Rochelle vailable ELHAM, DR DONALD Ruano Primary Care Unavailable FAWWAD, WOMACK H Attending Unavailable FAWWAD, WOMACK H Admitting Unavailable DR DONALD LIZARRAGA Primary Care Unavailable FAWWAD, WOMACK H Attending Unavailable FAWWAD, WOMACK H Admitting Unavailable DR DONALD LIZARRAGA Primary Care Unavailable VILLA ., DR JADEN Rodriguez Attending Unavailable VILLA ., DR JADEN Rodriguez Consulting Unavailable VILLA ., DR JADEN Rodriguez Admitting Unavailable LIZARRAGA, DR DONALD Ruano Primary Care Unavailable CUEVAS ., CHARAN Consulting Unavailable VILLA ., DR JADEN Rodriguez Attending Unavailable VILLA ., DR JADEN Rodriguez Admitting Unavailable FAWWAD, WOMACK H Attending Unavailable [...] H Admitting Unavailable VILLA ., DR JADEN Rodriguez Consulting Unavailable VILLA ., DR JADEN Rodriguez Admitting Unavailable VILLA ., DR JADEN Rodriguez Attending Unavailable LIZARRAGA, DR DONALD Ruano Primary Care Unavailable LIZARRAGA, DR DONALD Ruano Primary Care Unavailable LIZARRAGA, DR DONALD Ruano Consulting Unavailable VILLA ., DR JADEN Rodriguez Admitting Unavailable VILLA ., DR JADEN Rodriguez Attending Unavailable MASON .CHARAN Consulting Unavailable LIAZRRAGA, DR DONALD Ruano Admitting Unavailable LIZARRAGA, DR DONALD Ruano Attending Unavailable LIZARRAGA, DR DONALD Ruano Consulting Unavailable LIZARRAGA, DR DONALD Ruano Primary Care Unavailable HALKER ., JEET Admitting Unavailable HALKER ., JEET Attending Unavailable VANDIVER, DR UNA Sofia Consulting Unavailable LIZARRAGA, DR [...] Rochelle vailable LAKSHMIPATHY ., NARENDRANATH Attending Rochelle jacky CUEVAS .CHARAN Consulting Unavailable DR DONALD LIZARRAGA Primary Care Unavailable DR DONALD LIZARRAGA Primary Care Unavailable SHAIKH Gurwinder FARMER Attending Unavailable SHAIKH Gurwinder FARMER Admitting Unavailable Karim DO, Emperatriz Unavailable Karim DO, Emperatriz Unavailable CATHIE MONTIEL Attending Unavailable PRASANTH PEREZ Attending Unavailable PROVIDER, UNKNOWN Admitting Unavailable Allergies Allergy Classification Reported Allergen(s) Allergy Type Date of Onset Reaction(s) Facility (14 sources) Other (Review Comments!); 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: [OTHER (REVIEW COMMENTS!)] Propensity to adverse reactions to drug 12-29-19 19 [facility] (7 sources) Decongestant Drug allergy 10-18-19 24 Unknown, [facility] (4 sources) DECONGESTANTS Propensity to adverse reactions 05-03-20 13 Unknown, [facility] (3 sources) Allergies Reconciled Propensity to adverse reactions Unknown JANZZ Other (3 sources) patient allergy list reviewed by nurse or physicia Propensity to adverse reactions 11-23-19 17 Comment:Done JANZZ Other (1 source) No Known Medication Allergies; 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: [No Known Medication Allergies] Propensity to adverse reactions (disorder) [facility] Repository Medications Current Medications Medication Drug Class(es) Dates Sig (Normalized) Sig (Original) atorvastatin 20 mg oral tablet (20 sources) HMG-CoA Reductase Inhibitor Start: 12-20-2017 take 20 mg by mouth once daily atorvastatin 20 mg, Oral, Daily, Refills(s) 0, High cholesterol Start Date: 12/20/17 Status: Ordered azithromycin 250 mg oral tablet (2 sources) Macrolide Antimicrobial Start: 10-11-2022 Azithromycin 250 MG as directed Orally 2 tabs po today, then 1 tab daily x 4 more days for 5 Oct, Active baclofen 10 mg oral tablet (20 sources) gamma-Aminobutyric Acid-ergic Agonist Start: 11-13-2018 take 1 tablet by mouth once daily baclofen 10 mg Tab 10 mg = 1 tab(s), Oral, Daily, Refills(s) 0, Muscle pain Start Date: 04/02/20 Status: Ordered take 1 tablet by mouth every twe lve hours Baclofen 10 MG 1 tablet as needed Orally Twice a day Active benzonatate 200 mg oral capsule (1 source) Non-narcotic Antitussive Start: 10-19-2023 Benzonatate Active 200 MG PO 2-3 TIMES PER DAY October 19, 2023 12:00am betamethasone 0.5 mg/ml / clotrimazole 10 mg/ml topical cream (4 sources) Azole Antifungal, Corticosteroid Start: 10-18-2023 Clotrimazole-Betamet hasone Active APPLIC TOPICAL October 18, 2023 12:00am FreeTextSi application Externally Twice a day, as needed; Note: Source Status: Taking; Refills: 2; Qty: 1 Applicator; Provider: Elham Ruano Start: 03-28-2023 Clotrimazole-B etamethasone 1-0.05 % 1 application Externally Twice a day, as needed for 30 days Mar, Active calcium carbonate 1250 mg oral tablet (14 sources) Start: 10-18-2023 End: 10-19-2023 take 500 mg by mouth once daily Calcium Carbonate Active 500 MG PO Daily October 19, 2023 12:00am Start: 04-02-2020 take 500 mg by mouth twice daily Os-Avery 500 500 mg, Oral, BID, Refills(s) 0, Prophylaxis Start Date: 04/02/20 Status: Ordered take 1 tablet by ruma th once daily oscal 500 + D 500 mg / 125 IU 1 tablet orally once a day Active cefdinir 300 mg oral capsule (1 source) Cephalosporin Antibacterial Start: 10-19-2023 take 300 mg by mouth twice daily Cefdinir Active 300 MG PO Twice daily October 19, 2023 12:00am flecainide acetate 100 mg oral tablet (20 sources) Antiarrhythmic Start: 12-28-2023 flecainide (TAMBOCOR) 100 MG tablet Indications: Persistent atrial fibrillation (HCC) TAKE 1 TABLET TWICE A DAY 180 Tablet 3 12/28/2023 Active Start: 09-03-2020 End: 05-15-2023 take 1 tablet by mouth twice daily flecainide (TAMBOCOR) 100 MG tablet Indications: Persistent atrial fibrillation (HCC) Take 1 Tablet by mouth 2 times daily. 180 Tablet 3 02/14/2023 05/15/2023 Active Start: 12-20-2017 take 0.5 tablet by m outh every twelve hours Flecainide Active MG PO October 18, 2023 12:00am FreeTextSi.5 tablet Orally every 12 hrs; Note: Source Status: Taking; Provider: Elham Chan ( ) take 0.5 tablet by m outh every twelve hours Flecainide Acetate 100 MG 0.5 tablet Orally every 12 hrs Active gabapentin 300 mg oral capsule (12 sources) Anti-epileptic Agent Start: 10-18-2023 Gabapenti n Active MG PO October 18, 2023 12:00am FreeTextSi qam and 1 qpm and 2 qhs Orally 4 times a day; Note: Source Status: Taking; Provider: Elham Chan ( ) Start: 07-29-2022 gabapentin Ref ills(s) 0, Neuropathy Start Date: 07/29/22 Status: Ordered [...] tablet (20 sources) Thiazide Diuretic Start: 11-19-2018 take 1 tablet by mouth once daily hydrochlorothiazide 25 mg oral tablet 25 mg = 1 tab(s), Oral, Daily, Refills(s) 0, High blood pressure Start Date: 03/24/20 Status: Ordered Immodium A-D 2 mg Cap (2 sources) Start: 12-20-2017 take 1 tablet by mouth every four hours as needed Immodium A-D 2 mg Cap = 1 tab(s), Oral, q4hr, PRN for loose stools, Refills(s) 0 Start Date: 12/20/17 Status: Ordered Lisinopril (20 sources) Angiotensin Converting Enzyme Inhibitor Start: 09-07-2023 Lisinopril Active 0 .ROUTE .COMPLEX 90 September 07, 2023 4:57pm TAKE 1 TABLET DAILY Start: 12-20-2017 End: 09-07-2023 take 40 mg by mouth once daily lisinopril 40 mg, Oral, Daily, Refills(s) 0, High blood pressure Start Date: 12/20/17 Status: Ordered loperamide hydrochloride 2 mg oral capsule (1 source) Opioid Agonist Start: 12-20-2017 take 1 tablet by mouth every four hours as needed Immodium A-D 2 mg Cap = 1 tab(s), Oral, q4hr, PRN for loose stools, Refills(s) 0 Start Date: 12/20/17 Status: Ordered loratadine 10 mg oral tablet (20 sources) Start: 12-20-2017 take 10 mg by mouth once daily loratadine 10 mg, Oral, Daily, Refills(s) 0, Allergy symptoms Start Date: 12/20/17 Status: Ordered Loratadine Not-T aking magnesium sulfate 225 MG / potassium chloride 188 MG / sodium sulfate 1479 MG Oral Tablet [Sutab] (1 source) Start: 07-29-2022 take 1 tablet by mouth once Sutab oral tablet See Instructions, 1 EA, Refill(s) 0, KP, Please follow instructions per packaging and physician's handout, [facility]/pharmacy #[id number], 183.8, cm, 07/29/22 14:15:00 EST, Height/Length Dosing, 145.3, kg, 07/29/22 14:15:00 EST, Weight Dosing Start Date: 07/29/22 Status: Ordered methylPREDNISolone 4 mg oral tablet (2 sources) Corticosteroid Start: 10-11-2022 methylPREDNISolone 4 MG as directed Orally for 6 days Oct, Active Multivitamin (Multiple Vitamins) tablet (1 source) Start: 10-18-2023 take 1 tablet by mouth once daily Multivitamin (Multiple Vitamins) tablet Active 1 TAB PO Daily October 18, 2023 12:00am Multivitamins and Minerals (3 sources) Start: 12-20-2017 Multivitamins and Minerals Oral, Daily, Refill(s) 0, Prophylaxis Start Date: 12/20/17 Status: Ordered olopatadine (20 sources) Histamine-1 Receptor Inhibitor Start: 10-19-2023 take 1 drop(s) into the eye(s) twice daily Olopatadine Active 1 DROPS OPHTHALMIC Twice daily October 19, 2023 10:48am FreeTextSig: INSTILL 1 DROP INTO AFFECTED EYE TWICE A DAY FOR 30 DAYS; Note: Source Status: Taking; Refills: 3; Qty: 5 Milliliter; Provider: Elham Chan ( ) Start: 10-18-2023 End: 10-19-2023 take 1 drop(s) into the eye(s) twice daily Olopatadine Discontinued DROPS OPHTHALMIC October 18, 2023 12:00am October 19, 2023 10:52am FreeTextSig: INSTILL 1 DROP INTO AFFECTED EYE TWICE A DAY FOR 30 DAYS; Note: Source Status: Taking; Refills: 3; Qty: 5 Milliliter; Provider: Elham Chan ( ) Start: 07-29-2022 olopatadine 0. 7% ophthalmic solution Refill(s) 0 Start Date: 07/29/22 Status: Ordered olopatadine (PAT ANOL) 0.1 % ophthalmic solution Indications: Preop cardiovascular exam , PAF (paroxysmal atrial fibrillation) (HCC) , Anticoagulated , JAVED on CPAP , Obesity, unspecified classification, unspecified obesity type, unspecified whether serious comorbidity present olopatadine 0.1 % eye drops Active Olopatadine HCl 0.1 % INSTILL 1 DROP INTO AFFECTED EYE TWICE A DAY FOR 30 DAYS for 30 Active Olopatadine HCl 0.1 % INSTILL 1 DROP INTO AFFECTED EYE TWICE A DAY FOR 30 DAYS for 30 Active microencapsulated potassium chloride 20 meq extended release oral tablet (20 sources) Start: 10-19-2023 Potassium Chlo ride (Klor-Con M20) 20 mEq tablet,ER particles/crystals Active 20 MEQ PO Twice daily October 19, 2023 12:00am Start: 04-05-2023 End: 07-04-2023 Klor-Con M20 20 [...] 0, Prophylaxis Start Date: 12/20/17 Status: Ordered Potassium Chlori de 40 MEQ/15ML (20%) SOLN Indications: Preop cardiovascular exam , PAF (paroxysmal atrial fibrillation) (HCC) , Anticoagulated , JAVED on CPAP , Obesity, unspecified classification, unspecified obesity type, unspecified whether serious comorbidity present 15 mL. Active take 1 tablet by ruma th every twenty-four hours Potassium Chloride Marya ER 20 MEQ 1 tablet with food Orally Once a day Active take 1 tablet by ruma th every twenty-four hours Klor-Con M20 20 MEQ 1 tablet with food Orally Once a day Active Psyllium Seed (Sugar) (Metamucil (Sugar)) powder (1 source) Start: 10-18-2023 Psyllium Seed (Sugar) (Metamucil (Sugar)) powder Active 1 TBSP PO Daily October 18, 2023 12:00am sildenafil 25 mg oral tablet (5 sources) Phosphodiesterase 5 Inhibitor Start: 01-24-2023 sildenafil citrate (VIAGRA) 25 MG tablet Take 25 mg by mouth. 01/24/2023 Active Sodium Sulfate-Mag Sulfate-KCl (Sutab) 4666-508-603 MG TABS (3 sources) Start: 07-29-2022 Sodium Sulfate -Mag Sulfate-KCl (Sutab) 0148-919-086 MG TABS Take by mouth. 07/29/2022 Active Start: 07-29-2022 Sodium Sulfate -Mag Sulfate-KCl (Sutab) 4094-753-722 MG TABS Take by mouth. 0 07/29/2022 Active Super B Complex (6 sources) Start: 04-02-2020 take 1 tablet by mouth once daily Super B Complex 1 tab(s), Oral, Daily, Refill(s) 0, Prophylaxis Start Date: 04/02/20 Status: Ordered tiZANidine 4 mg oral tablet (3 sources) Central alpha-2 Adrenergic Agonist Start: 10-18-2023 take 1 tablet by mouth once daily at bedtime as needed Tizanidine Active 4 MG PO Once October 18, 2023 12:00am FreeTextSi tablet as needed Orally qhs prn; Note: Source Status: Taking; Provider: Elham Ruano take 1 tablet by ruma th once daily at bedtime as needed tiZANidine HCl 4 MG 1 tablet as needed Orally qhs prn Active warfarin sodium 5 mg oral tablet (20 sources) Vitamin K Antagonist Start: 10-18-2023 Warfarin Active MG PO As Directed October 18, 2023 12:00am FreeTextSig: as directed orally; Note: Source Status: Taking; Provider: Elham Chan ( ) Start: 07-29-2022 warfarin Refil ls(s) 0, Blood Thinner Start Date: 07/29/22 Status: Ordered Start: 07-29-2022 warfarin Refil ls(s) 0 Start Date: 07/29/22 Status: Ordered Start: 09-03-2020 End: 12-28-2023 warfarin (COUMADIN) 5 MG tab let Indications: PAF (paroxysmal atrial fibrillation) (HCC) , Anticoagulated , Preop cardiovascular exam , JAVED on CPAP , Obesity, unspecified classification, unspecified obesity type, unspecified whether serious comorbidity present TAKE ONE TO ONE AND ONE-HALF TABLETS DAILY OR DIRECTED BY MEDICATION MANAGEMENT CLINIC 120 Tablet 3 12/28/2023 Active Completed/Discontinued Medications Medication Drug Class(es) Dates [...] mg-325 mg tablet 0 03/29/2023 Discontinued amLODIPine 10 mg oral tablet (10 sources) Dihydropyridine Calcium Channel Yadiel Start: 10-18-2023 End: 10-19-2023 take 10 mg by mouth once daily Amlodipine Discontinued 10 MG PO Daily October 18, 2023 12:00am October 19, 2023 10:34am AMLODIPINE BESYL ATE ORAL amLODIPine Besylate Not-Taking Active amLODIPine Besyl ate Not-Taking/PRN AMLODIPINE BESYL ATE ORAL amLODIPine Besylate Not-Taking 0 Active amLODIPine Besyl ate Not-Taking amoxicillin 875 mg oral tablet (6 sources) Penicillin-class Antibacterial Start: 04-02-2016 take 1 tablet by mouth every twelve hours Amoxicillin 875 MG 1 tablet Orally Twice a day for 10 day(s) Mar, Not-Taking/PRN ascorbic acid 500 mg oral capsule (18 sources) Vitamin C Start: 10-18-2023 End: 10-19-2023 Ascorbic Acid (Vitamin C) Discontinued MG PO October 18, 2023 12:00am October 19, 2023 10:33am Vitamin C Not-Ta jamie/PRN End: 03-29-2023 take 1 tablet by mouth once daily Ascorbic Acid 1000 MG TABS Vitamin C 1,000 mg tablet Take 1 tablet every day by oral route. 0 03/29/2023 Discontinued Vitamin C Not-Ta jamie Aspir-81 (6 sources) Aspir-81 Not-David ing/PRN Aspir-81 Not-David ing aspirin 81 mg delayed release oral tablet (1 source) Platelet Aggregation Inhibitor, Nonsteroidal Anti-inflammatory Drug Start: 10-18-2023 End: 10-19-2023 take 81 mg by mouth once daily Aspirin Discontinued 81 MG PO Daily October 18, 2023 12:00am October 19, 2023 10:33am carvedilol 3.125 mg oral tablet (7 sources) alpha-Adrenergic Yadiel, beta-Adrenergic Yadiel Start: 10-18-2023 End: 10-19-2023 take 3.125 mg by mouth twice daily at mealtime Carvedilol Discontinued 3.125 MG PO Twice daily October 18, 2023 12:00am October 19, 2023 10:34am must administer with a meal/food Carvedilol Not-T aking/PRN Carvedilol Not-T aking cholecalciferol 0.05 mg oral capsule (11 sources) Vitamin D End: 03-29-2023 take 1 capsule by mouth once daily Cholecalciferol 50 MCG (2000 UT) CAPS Vitamin D3 50 mcg (2,000 unit) capsule Take 1 capsule every day by oral route. 0 03/29/2023 Discontinued docosahexaenoic acid 120 mg / eicosapentaenoic acid 180 mg oral capsule (1 source) Start: 10-18-2023 End: 10-19-2023 take 1 capsule by mouth once daily Docosahexaenoic Acid-Epa (Fish Oil) 120-180 mg capsule Discontinued 1 CAP PO Daily October 18, 2023 12:00am October 19, 2023 10:35am Fish Oils (6 sources) Fish Oil Not-Taking/PRN Fish Oil Not-David ing 24 hr metoprolol succinate 100 mg extended release oral tablet (20 sources) beta-Adrenergic Yadiel Start: 11-19-2018 End: 02-17-2024 take 1 tablet by mouth once daily metoprolol (TOPROL-XL) 100 mg XL tablet Take 1 Tablet by mouth daily. 90 Tablet 3 02/17/2023 12/28/2023 Discontinued Start: 12-20-2017 take 1 tablet by ruma th once daily metoprolol tartrate 100 mg Tab 100 mg = 1 tab(s), Oral, Daily, Refills(s) 0, High blood pressure Start Date: 12/20/17 Status: Ordered Multi Vitamin Mens (6 sources) Multi Vitamin [...] bronchitis] Onset: 11-08-2013 Episodic Cancer of colon (19 sources) Malignant tumor of colon; 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: [Malignant neoplasm of colon, unspecified] Onset: 11-07-2014 12-28-2018 Chronic Cardiac dysrhythmias (20 sources) Paroxysmal atrial fibrillation; [...] site] Onset: 05-27-2020 03-26-2019 Chronic Other aftercare (20 sources) Drug therapy finding; 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: [longterm (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] Onset: 09-03-2020 Episodic Other aftercare (1 source) 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; 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] Onset: 12-07-2022 Episodic Other aftercare (5 sources) Encounter for [...] Onset: 03-28-2018 Episodic Other male genital disorders (6 sources) Male erectile dysfunction, unspecified; 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: [Erectile dysfunction] Onset: 10-27-2021 Chronic Other male genital disorders (6 sources) Impotence 09-03-2020 Chronic Other nervous system disorders (1 source) Other chronic pain; 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: [OTHER CHRONIC PAIN] Onset: 07-27-2022 Chronic Other non-traumatic joint disorders (3 sources) Pain in right hip joint; 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: [Pain in right hip] Episodic Other non-traumatic joint disorders (3 sources) Arthralgia of the lower leg; 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: [Pain in right knee] Episodic Other nutritional; endocrine; and metabolic disorders (6 sources) Obesity; 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: [Obesity, unspecified] Chronic Other nutritional; endocrine; and metabolic disorders (6 sources) Body mass index 40+ - severely obese; 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: [Body mass index (BMI) 40.0-44.9, adult] Onset: 06-12-2017 Chronic Other screening for suspected conditions (not mental disorders or infectious disease) (20 sources) Raised prostate specific antigen; 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: [Elevated prostate specific antigen [PSA]] Onset: 05-30-2018 Episodic Phlebitis; thrombophlebitis and thromboembolism (1 source) Chronic embolism and thrombosis of right femoral vein; 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: [CHRON EMBO THROMB RT FEMORAL VEIN] Onset: 04-11-2022 Chronic Pulmonary heart disease (9 sources) Pulmonary hypertension; 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: [Pulmonary hypertension, unspecified] Chronic Pulmonary heart disease (14 sources) Pulmonary embolism; 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: [Other pulmonary embolism without acute cor pulmonale] Onset: 05-02-2016 Episodic Residual codes; unclassified (9 sources) Sleep apnea; 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: [Sleep apnea, unspecified] Onset: 03-29-2023 04-16-2020 Chronic Residual codes; unclassified (16 sources) Obstructive sleep apnea syndrome; 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: [Obstructive sleep apnea (adult) (pediatric)] Chronic Residual codes; unclassified (1 source) Obstructive sleep apnea (adult) (pediatric) Chronic Residual codes; unclassified (1 source) Family history of malignant neoplasm of digestive organ; 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: [Family history of malignant neoplasm of digestive organs] Onset: 07-29-2022 Episodic Residual codes; unclassified (14 sources) Family history of cancer of colon; 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: [Family hx of colon cancer] Onset: 03-29-2023 07-29-2022 Episodic Spondylosis; intervertebral disc disorders; other back problems (15 sources) Spondylosis without myelopathy or radiculopathy, cervical region; 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: [Sacroiliitis, not elsewhere classified] Onset: 09-29-2022 Chronic Unclassified (6 sources) Asymptomatic microscopic hematuria 10-27-2021 Unclassified (6 sources) Patient encounter status 10-27-2021 Unclassified (5 sources) History of malignant neoplasm of colon and/or rectum 07-29-2022 Unclassified (4 sources) LOW BACK PAIN, UNSPECIFIED; 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: [LOW BACK PAIN, UNSPECIFIED] Onset: 03-25-2022 Past or Other Problems Problem Classification Problem Date Documented Da te Episodic/Chronic Cancer of rectum and anus (4 sources) History of malignant neoplasm of rectum; 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: [Personal history of other malignant neoplasm of rectum, rectosigmoid junction, and anus] Onset: 07-29-2022 Episodic Deficiency and other anemia (3 sources) Pernicious [...] 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: [Acute prostatitis] Onset: 05-30-2018 Episodic Other gastrointestinal disorders (3 sources) Diarrhea; [...] region and thigh] Onset: 06-12-2017 Episodic Other upper respiratory infections (3 sources) Acute sinusitis; 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: [Acute sinusitis, unspecified] Onset: 11-08-2013 Episodic Juju-; endo-; and myocarditis; cardiomyopathy (except that caused by tuberculosis or sexually transmitted disease) (3 sources) Disorder of pericardium; 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: [Pericardial effusion (noninflammatory)] Onset: 05-02-2016 Episodic Phlebitis; thrombophlebitis and thromboembolism (9 sources) Deep venous thrombosis of lower extremity; [...] and Corynebacterium diphtheriae antigens (medicinal product); 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: [Gbdcyjijzt-ncygdyv-d ertussis, combined [DTP] [DtaP]] Onset: 02-13-2014 Viral infection (1 source) COVID-19 Results Test Name Value Interpretation Reference Range Facility Progress Noteson 04-15-2024 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 Evangelist Ybarra is 68 year old who has history of PAF complicating HFpEF, followed in the past with Dr. Carnes. JAVED compliant with CPAP. BMI 41 History of colon CA in remission. History of BPH, s/p TURP. No further hematuria On warfarin, compliant Limited functional status by arthritis, cervical radiculopathy, requiring periodic ablation under fluoro guidance Subjective: Feels well. No palpitations. No dizziness, no near syncope or syncope. No chest pain. No weigh gain. No edema. Active with daily activities No recent hospitalization Records: 2018 Limited echocardiogram was done to assess left ventricular systolic function Since his last visit, he had lexiscan at [facility] on 09/2016 that showe no reversible findings, LVEF of 53%, and mid-anterior and mid-inferior mild, small defects. EKG portion was normal. A/P: Doing well with no further clinical PAF. Does good job with self monitoring/apple watch. Compliant with meds. We discussed at length PAD diagnosis and prognosis. Atrial fibrillation is not directly linked to sudden cardiac . Atrial fibrillation increases the risk for stroke and may weaken the heart and cause the heart valves to malfunction. Risk factors identification and modification is the essence for AF management. Oral anticoagulation when indicated is of paramount importance in order to reduce the incidence of stroke and embolization. Rhythm management options discussed in details including rate control with medications, rhythm control with cardioversion, antiarrhythmic medications or pulmonary veins and substrates isolation and ablation. Discussed switching from warfarin to DOACs Continue current management Follow up [facility] 1 [facility] about the risks and benefits of telehealth visits. Have all of your telehealth-related questions been answered: yes.Do you agree to go ahead with this telemedicine visit: yes Documentation: Mode: Video Consent: This visit was [...] Obtaining history (or reviewing separately obtained history) Current Outpatient Medications Medication Sig Dispense Refill warfarin (COUMADIN) 5 MG tablet TAKE ONE TO ONE AND ONE-HALF TABLETS DAILY OR DIRECTED BY [facility] 120 Tablet 3 metoprolol (TOPROL-XL) 100 mg XL tablet TAKE 1 TABLET DAILY 90 Tablet 3 flecainide (TAMBOCOR) 100 MG tablet TAKE 1 TABLET TWICE A DAY 180 Tablet 3 Klor-Con M20 20 MEQ controlled release tablet TAKE 1 TABLET TWICE A DAY 180 Tablet 3 Sodium Sulfate-Mag Sulfate-KCl (Sutab) 9827-942-859 MG TABS Take by mouth. AMLODIPINE BESYLATE ORAL amLODIPine Besylate Not-Taking sildenafil citrate (VIAGRA) 25 MG tablet Take 25 mg by mouth. loratadine (CLARITIN) 10 MG tablet Take 10 [...] No current facility-administered medications for this visit. No past medical history on file. .opsh Allergies Allergen Reactions Other (Review Comments!) Social History Socioeconomic History Marital status: Highest [...] Lack of Transportation (Non-Medical): No Physical Activity: Patient Declined (03/27/2023) Exercise Vital Sign Days of Exercise per Week: Patient declined Minutes of Exercise per Session: Patient declined Stress: No Stress Concern Present (03/27/2023) [employer] - Occupational Stress Questionnaire Feeling of Stress : Not at all Social Connections: Moderately Integrated (03/27/2023) Social Connection and Isolation Panel [NHANES] Frequency of Communicatio (more content not included)... Normal [facility] [employer] [facility] Ambulatory Visit Summaryon 0 01-23-2024 Ambulatory Visit Summary Ambulatory Visit Summary EVANGELIST YBARRA :1955 Visit Date:01/23/2024 Ambulatory Visit Instructions Your Diagnosis Elevated PSA BPH with urinary obstruction Erectile dysfunction Asymptomatic microscopic hematuria Your Care Team Attending Physician - CATHIE MONTIEL PA-C Primary Care Physician - DONALD LIZARRAGA MD This Is Your Medications List Contact prescribing physician if questions or concerns atorvastatin baclofen (baclofen 10 mg Tab) calcium carbonate (Os-Avery 500) flecainide gabapentin hydrochlorothiazide (hydrochlorothiazide 25 mg oral tablet) lisinopril loratadine metoprolol (metoprolol tartrate 100 mg Tab) multivitamin (Super B Complex) olopatadine ophthalmic (olopatadine 0.7% ophthalmic solution) potassium chloride (Klor-Con) warfarin [Image Removed: STOP]Stop taking these medications sildenafil (Viagra 25 mg Tab) Procedures Performed Colonoscopy (10/06/2022), TURP - Transurethral resection of prostate (04/23/2020), Transrectal biopsy of prostate using ultrasound (US) guidance (07/19/2018), EGD - Esophagogastroduodenoscopy (12/21/2017), Colonoscopy, Excision of cyst, Nerve blocks in lower limb, Special back care. Discharge Vitals Temperature (Temporal Artery) 36.6 ?C Heart Rate (Peripheral) 67 Respiratory Rate 16 Blood Pressure 138/74 Height 183.3 cm Height 72 in Weight 144 kg Weight 316.8 lb BMI 42.86 What to do next You Need to Schedule the Following Appointments Follow Up with TIANA GARCIA, ABEL MARCELINO When: Only if needed Where: [address] [facility] [place] [address] [phone] Medications What How Much When Instructions Unchanged atorvastatin 20 Milligram By Mouth Every day Contact prescribing physician if questions or concerns Unchanged baclofen (baclofen 10 mg Tab) 1 Tablets By Mouth Every day Contact prescribing physician if questions or concerns Unchanged calcium carbonate (Os-Avery 500) 500 Milligram By Mouth 2 times a day Contact prescribing physician if questions or concerns Unchanged flecainide 100 Milligram By Mouth Every 12 hours Contact prescribing physician if questions or concerns Unchanged gabapentin Contact prescribing physician if questions or concerns Unchanged hydrochlorothiazide (hydrochlorothiazide 25 mg oral tablet) 1 Tablets By Mouth Every day Contact prescribing physician if questions or concerns Unchanged lisinopril 40 Milligram By Mouth Every day Contact prescribing physician if questions or concerns Unchanged loratadine 10 Milligram By Mouth Every day Contact prescribing physician if questions or concerns Unchanged metoprolol (metoprolol tartrate 100 mg Tab) 1 Tablets By Mouth Every day Contact prescribing physician if questions or concerns Unchanged multivitamin (Super B Complex) 1 Tablets By Mouth Every day Contact prescribing physician if questions or concerns Unchanged olopatadine ophthalmic (olopatadine 0.7% ophthalmic solution) Contact prescribing physician if questions or concerns Unchanged potassium chloride (Klor-Con) 40 Milliequivalent By Mouth 2 times a day Contact prescribing physician if questions or concerns Unchanged warfarin Contact prescribing physician if questions or concerns What How Much When Comments Stop Taking sildenafil (Viagra 25 mg Tab) 1 Tablets By Mouth As Directed as needed for for erectile dysfunction Take 1 hour before sexual activity. Start with 1 tab, if no improvement, you may increase dose. Do not exceed 4 tabs/ 100mg in 24 hrs. Allergies No Known Medication Allergies Problems Ongoing - Any problem that you are currently receiving treatment for. Arthritis Asymptomatic microscopic hematuria BPH with urinary obstruction Elevated PSA Erectile dysfunction Family history of colon cancer Gross hematuria History of colorectal cancer Prostate cancer screening Historical - Any problem that you are no longer receiving treatment for. Frequent urination Hematuria Incomplete bladder emptying Nocturia Urinary urgency Patient Survey You may receive a survey via text or e-mail asking about your office visit. Please share your experience with us by completing your survey. We appreciate your feedback and thank you for choosing us for your care. Education Materials Erectile Dysfunction Erectile dysfunction (ED) is the [...] such as low testosterone. ? Obesity. ? Ne (more content not included)... Normal [facility] Provider Letteron 01-23-2024 Provider Letter Provider Letter DONALD LIZARRAGA, [address] [place], [place] [id number] Re: EVANGELIST YBARRA Date of : [address] ELHAM JACKSON, EVANGELIST SWANSON was evaluated at [facility] 01/30/2024 10:00:00 As this patient has been stable, they will be released back to your care. We request that you continue to check PSA annually for prostate cancer screening Should the patient develop new symptoms, worsening condition, or abnormal imaging/labs in the future, do not hesitate to refer them back. Thanks! Provider Signature: Cathie Montiel PA-C Physician Set Key Driver [facility] [address] [place] [address] Normal [facility] Urology Office/Clinic Noteon 01-23-2024 Urology Office/Clinic Note Urology Office/Clinic Note Chief Complaint 1 year follow up with PSA HPI Staff 68 year old patient presents today for a 1 year follow up with PSA. No recent PSA on [facility], TB, [facility], or [facility]. DX: BPH, ED & Elevated PSA TURP done 04/2020 PSA 09/08/22- 0.61 *Sildenafil 25 mg PRN Dysuria: denies Incomplete bladder emptying: denies Hematuria: denies visible blood Frequency: denies Urgency: denies Nocturia: once a night every 2 weeks Stream: denies hesitancy, has strong stream Leaking: denies Post void dripping: denies Wearing pads/ Depends: denies Urge incontinence: denies Stress incontinence: denies Incontinence without Sensory Awareness: denies Abdominal pain: denies Flank pain: denies Sexual complaints: _ History of Present Illness staff HPI reviewed and agree. Review of Systems PHQ Score Initial Depression Screen Score: 0 SCORE no fever, chills, malaise, myalgia. no rash/lesions. no chest pain, palpitations, or SOB. no abdominal pain, nausea, vomiting. no unilateral calf swelling, redness, pain Physical Exam Vitals & Measurements T: 36.6 ?C(Temporal Artery) HR: 67(Peripheral) RR: 16 BP: 138/74 HT: 72 in HT: 183.3 cm WT: 144 kg WT: 316.8 lb BMI: 42.86 General: nontoxic, NAD Mouth: moist mucosa Lungs: normal respiratory effort Cardio: regular rate, good distal perfusion Abdomen: nondistended, no suprapubic distention or tenderness, no CVA tenderness Neurologic: Grossly normal Skin: No rashes or suspicious lesions Assessment/Plan Prior DLS pt 1. Elevated PSA (R97.20: Elevated prostate specific antigen [PSA]) S/p TRUS/bx 07/19/18 - Neg. PSA 05/19/18 - 7.19 03/07/19 - 1.10 03/21/20 - 1.31 08/23/21 - 0.60 09/08/22 - 0.61 01/22/24 - 1.34 PCP checks PSA. PSA has increased from prior but has been higher in the past and overall is quite stable over the past 5 years aside from the high value in fall of 2017. -Cont annual PSA monitoring w/ PCP 2. BPH with urinary obstruction (N40.1: Benign prostatic hyperplasia with lower urinary tract symptoms) S/p TURP 04/23/20. IPSS 1 (3), QOL 0 (0). UA today negative for infection. Not currently taking any BPH meds. Not voicing any urinary habit complaints. 3. Erectile dysfunction (N52.9: Male erectile dysfunction, unspecified) CINDY 2 (6). No hx of heart attacks or strokes. Started on Sildenafil 25mg prn at prior OV pending clearance from [employer] school librarian but pt never filled script. Not a priority at this time. 4. Asymptomatic microscopic hematuria (R31.21: Asymptomatic microscopic hematuria) Micro UA 01/24/23 - 0-3 RBC. Neg cx. UA today negative for blood. (trace-intact). Sanjana gross hematuria. -Cont sx monitoring and routine UAs offered scheduled follow up vs f/u PRN with urology and continue care with PCP. pt prefers the latter. will send letter to PCP so they are aware of the plan. pt understands if anything worsens or new symptoms arise to contact our office. Follow-up With When Contact Information TIANA GARCIA, CATHIE Ruano, URL Only if needed [address] [place] [address] [phone] Additional Instructions: Patient Education Erectile Dysfunction Documentation recorded by the juan david Caceres accurately reflects the services(s) I performed and decisions made by me. Authenticated by Cathie Montiel PA-C on 01/23/2024 14:33:17. I, Krystyna Caceres, personally scribed for Cathie Montiel PA-C on 01/23/2024 14:31:15. . Problem List/Past Medical History Ongoing Arthritis [...] tablet, 25 mg= 1 tab(s), Oral, Daily influenza virus vaccine, inactivated HIGH-DOSE preservative-free intramuscular suspension FT Rule H, 0.7 mL, IntraMuscular, Once, PRN Klor-Con, 40 mEq, Oral, BID lisinopril, 40 mg, Oral, Daily loratadine, 10 mg, Oral, Daily metoprolol tartrate 100 mg Tab, 100 mg= 1 tab(s), Oral, Daily olopatadine 0.7% ophthalmic solution Os-Avery 500, 500 mg, Oral, BID Super B Complex, 1 tab(s), Oral, Daily Viagra 25 mg Tab, 25 mg= 1 tab(s), Oral, As Directed, PRN, 2 refills warfarin Allergies No Known Medication Allergies Social History Alcohol - De (more content not included)... Normal [facility] Comment on above: Result Comment: Elec tronically Signed By: CATHIE MONTIEL PA-C\.br\Date and Time Signed: 01/23/24 14:33 EDT\.br\Electronically Co-Signed By: Krystyna Caceres\.br\Date and Time Co-Signed: 01/23/24 14:31 EDT URINALYSISOrdered By: Sweetie Ma on 01-24-2023 Bacteria [...] AM) Normal Negative [facility] UA Auto SS [place].plasma/Lith ium.RBC (Bld) [Mass ratio] 0-3 /HPF Normal [...] Desc Random Urine (01/24/23 10:19 AM) Normal [facility] UA Auto SS Urobilinogen Qn (U) [id number] {Anne'U}/dL Normal 0.0 - 1.0 EU/dL [facility] UA Auto SS WBC Auto Ql (U) Negative (01/24/23 10:19 AM) Normal Negative [facility] UA Auto SS WBC LM.HPF (Urine sed) [#/Area] 0-5 /HPF Normal 0-5/HPF [facility] UA Auto SS XR CSPINE MIN 4 VIEWSon XR CSPINE MIN 4 VIEWS EXAMINATION: XR [...] by: UNA SEARS Date: 2022-11-10 09:46 Normal [facility] CBC AUTO DIFFon 2022 BASO # 0.0 103/ul Normal 0.0-0.1 [facility] Comment on above: Performed By: #### C BC #### [facility] [address] [place] [address] Dr. Jason Pearson Basophils/100 WBC (Bld) 0.7 % Normal 0.2-2.0 [facility] Comment on above: Performed By: #### C BC #### [facility] [address] [place] [address] Dr. Jason Pearson EO # 0.2 103/ul Normal 0.0-0.7 [facility] Comment on above: Performed By: #### C BC #### [facility] [address] [place] [address] Dr. Jason Pearson Eosinophils/100 WBC (Bld) 3.7 % Normal 0.9-7.0 [facility] Comment on above: Performed By: #### C BC #### [facility] [address] [place] [address] Dr. Jason Pearson Erythrocyte distribution width (RBC) [Ratio] 14.0 % Normal 11.0-15.0 [facility] Comment on above: Performed By: #### C BC #### [facility] [address] [place] [address] Dr. Jason Pearson Hematocrit (Bld) [Volume fraction] 41.0 % Critically low 42.0-54.0 [facility] Comment on above: Performed By: #### C BC #### [facility] [address] [place] [address] Dr. Jason Pearson Hemoglobin (Bld) [Mass/Vol] 13.8 g/dL Critically low 14.0-18.0 [facility] Comment on above: Performed By: #### C BC #### [facility] [address] [place] [address] Dr. Jason Pearson IG # 0.01 10e3/ul Normal 0.00-0.03 [facility] Comment on above: Performed By: #### C BC #### [facility] [address] [place] [address] Dr. Jason Pearson IG % 0.2 % Normal 0.0-0.5 [facility] Comment on above: Performed By: #### C BC #### [facility] [address] [place] [address] Dr. Jason Pearson LYMPH # 1.3 103/ul Normal 1.2-3.8 [facility] Comment on above: Performed By: #### C BC #### [facility] [address] [place] [address] Dr. Jason Pearson Lymphocytes/100 WBC (Bld) 22.3 % Normal 20.5-60.0 [facility] Comment on above: Performed By: #### C BC #### [facility] [address] [place] [address] Dr. Jason Pearson MANUAL DIFF REQ NO Normal [facility] Comment on above: Performed By: #### C BC #### [facility] [address] [place] [address] Dr. Jason Pearson MCH (RBC) [Entitic mass] 32.6 pg Normal 25.9-34.0 [facility] Comment on above: Performed By: #### C BC #### [facility] [address] [place] [address] Dr. Jason Pearson MCHC (RBC) [Mass/Vol] 33.7 g/dL Normal 29.9-35.2 [facility] Comment on above: Performed By: #### C BC #### [facility] [address] [place] [address] Dr. Jason Pearson MCV (RBC) [Entitic vol] 96.9 fL Critically high 80.0-94.0 [facility] Comment on above: Performed By: #### C BC #### [facility] [address] [place] [address] Dr. Jason Pearson MONO # 0.6 103/ul Normal 0.3-0.8 [facility] Comment on above: Performed By: #### C BC #### [facility] [address] [place] [address] Dr. Jason Pearson Monocytes/100 WBC (Bld) 10.5 % Normal 1.7-12.0 [facility] Comment on above: Performed By: #### C BC #### [facility] [address] [place] [address] Dr. Jason Pearson NEUT # 3.7 103/ul Normal 1.4-6.5 [facility] Comment on above: Performed By: #### C BC #### [facility] [address] [place], [place] [address] Dr. Jason Pearson Neutrophils/100 WBC (Bld) 62.6 % Normal 43.0-75.0 [facility] Comment on above: Performed By: #### C BC #### [facility] [address] [place] [address] [address] Jason Pearson Platelet mean volume (Bld) [Entitic vol] 9.9 fL Normal 9.5-13.5 [facility] Comment on above: Performed By: #### C BC #### [facility] [address] [address] [address] Jason Pearson PLT 181 103/ul Normal 150-450 [facility] Comment on above: Performed By: #### C BC #### [facility] [address] [address] [address] Jason Pearson RBC 4.23 106/ul Critically low 4.70-6.10 [facility] Comment on above: Performed By: #### C BC #### [facility] [address] [address] [address] Jason Pearson WBC 5.9 103/ul Normal 4.0-11.0 [facility] Comment on above: Performed By: #### C BC #### [facility] [address] [address] [address] Jason Pearson LIPID PROFILEon 2022 CHOL-HDL RATIO NORM SEE BELOW Normal [facility] Comment on above: Result Comment: 3.3 - 4.4 LOW RISK 4.4 - 7.1 AVERAGE RISK 7.1 - 11.0 MODERATE RISK >11.0 HIGH RISK Performed By: #### C MP, LIPID ####[facility] [address] [place], [place] [id number]. Jason Pearson Cholesterol [Mass/Vol] 163 mg/dL Normal <=200 [facility] Comment on above: Performed By: #### C MP, LIPID ####[facility] [address] [id number]. Jason Pearson Cholesterol in HDL [Mass/Vol] 49 mg/dL Normal 40-60 [facility] Comment on above: Performed By: #### C MP, LIPID ####[facility] [address] [place] [id number]. Jason Pearson Cholesterol in LDL [Mass/Vol] 74.6 mg/dL Normal [facility] Comment on above: Performed By: #### C MP, LIPID ####[facility] [address] [place] [id number]. Deboraradha Pearson Cholesterol.total/C holesterol in HDL [Mass ratio] 3.3 {ratio} Normal [facility] Comment on above: Performed By: #### C MP, LIPID ####[facility] [address] [place] [id number]. Jason Pearson HDL NORMAL > or = 60 mg/dl - LO W CARDIOVASCULAR RISK <40 mg/dl - HIGH CARDIOVASCULAR RISK Normal [facility] Comment on above: Performed By: #### C MP, LIPID ####[facility] [address] [place] [id number]. Jason Pearson LDL CALC NORMAL SEE BELOW Normal [facility] Comment on above: Result Comment: <100 mg/dl OPTIMAL 100 - 129 mg/dl NEAR OR ABOVE OPTIMAL 130 - 159 mg/dl BORDERLINE HIGH 160 - 189 mg/dl HIGH >190 mg/dl VERY HIGH Performed By: #### C MP, LIPID ####[facility] [address] [place] [id number]. Jason Pearson Triglyceride [Mass/Vol] 197 mg/dL Critically high <=150 [facility] Comment on above: Performed By: #### C MP, LIPID ####[facility] [address] [place] [id number]. Jason Pearson VLDL CALC 39.4 mg/dL Normal [facility] Comment on above: Performed By: #### C MP, LIPID ####[facility] [address] [place], [place] [address]Wq. Jason Pearson MICROALBUMIN, RAND URon 03-0 mALB 1.3 mg/L Normal <=30.0 [facility] Comment on above: Performed By: #### M ALBR ####[facility] [address] [place], [place] [address]OqDr. Jason Pearson PROF 14(COMP METB)on 023 Albumin [Mass/Vol] 3.7 g/dL Normal 3.4-5.0 [facility] Comment on above: Performed By: #### C MP, LIPID #### [facility] [address] [id number] Jason Pearson Albumin/Globulin [Mass ratio] 1.0 {ratio} Normal [facility] Comment on above: Performed By: #### C MP, LIPID #### [facility] [address] [place] [address] Dr. Jason Pearson ALP [Catalytic activity/Vol] 56 U/L Normal 46-116 [facility] Comment on above: Performed By: #### C MP, LIPID #### [facility] [address] [place] [address] Dr. Jason Pearson ALT [Catalytic activity/Vol] 43 U/L Normal 16-63 [facility] Comment on above: Performed By: #### C MP, LIPID #### [facility] [address] [place] [address] Dr. Jason Pearson Anion gap [Moles/Vol] 11.2 mmol/L Normal [facility] Comment on above: Performed By: #### C MP, LIPID #### [facility] [address] [address] [address] Jason Pearson AST [Catalytic activity/Vol] 24 U/L Normal 15-37 [facility] Comment on above: Performed By: #### C MP, LIPID #### [facility] [address] [address] [address] Jason Pearson Bilirubin [Mass/Vol] 0.9 mg/dL Normal 0.2-1.0 [facility] Comment on above: Performed By: #### C MP, LIPID #### [facility] [address] [address] [address] Jason Pearson Calcium [Mass/Vol] 9.6 mg/dL Normal 8.5-10.1 [facility] Comment on above: Performed By: #### C MP, LIPID #### [facility] [address] [address] [address] Jason Pearson Chloride [Moles/Vol] 106 mmol/L Normal 98-107 [facility] Comment on above: Performed By: #### C MP, LIPID #### [facility] [address] [address] [address] Jason Pearson CO2 [Moles/Vol] 30.1 mmol/L Normal 21.0-32.0 [facility] Comment on above: Performed By: #### C MP, LIPID #### [facility] [address] [place] [address] Dr. Jason Pearson Creatinine [Mass/Vol] 1.00 mg/dL Normal 0.70-1.30 [facility] Comment on above: Performed By: #### C MP, LIPID #### [facility] [address] [place] [address] Dr. Jason Pearson EGFR-AF [place] >60 Normal >=60 [facility] Comment on above: Performed By: #### C MP, LIPID #### [facility] [address] [place] [address] Dr. Jason Pearson EGFR-NON AF [place] >60 Normal >=60 [facility] Comment on above: Performed By: #### C MP, LIPID #### [facility] [address] [place] [address] Dr. Jason Pearson Globulin (S) [Mass/Vol] 3.6 g/dL Normal [facility] Comment on above: Performed By: #### C MP, LIPID #### [facility] [address] [place] [address] Dr. Jason Pearson Glucose [Mass/Vol] 110 mg/dL Critically high 74-106 [facility] Comment on above: Performed By: #### C MP, LIPID #### [facility] [address] [place] [address] Dr. Jason Pearson Potassium [Moles/Vol] 4.3 mmol/L Normal 3.5-5.1 [facility] Comment on above: Performed By: #### C MP, LIPID #### [facility] [address] [address] [address] Jason Pearson Protein [Mass/Vol] 7.3 g/dL Normal 6.4-8.2 [facility] Comment on above: Performed By: #### C MP, LIPID #### [facility] [address] [address] [address] Jason Pearson Sodium [Moles/Vol] 143 mmol/L Normal 136-145 [facility] Comment on above: Performed By: #### C MP, LIPID #### [facility] [address] [address] [address] Jason Pearson Urea nitrogen [Mass/Vol] 15.0 mg/dL Normal 7.0-18.0 [facility] Comment on above: Performed By: #### C MP, LIPID #### [facility] [address] [address] [address] Jason Pearson Urea nitrogen/Creatinine [Mass ratio] 15.0 mg/mg Normal [facility] Comment on above: Performed By: #### C MP, LIPID #### [facility] [address] [address] [address] Jason Pearson PROTIMEon 06-28-2022 INR Coag (PPP) [Relative time] 1.11 {INR} Normal [facility] Comment on above: Performed By: #### P T ####[facility] [address] [place] [address]Dr. Jason Pearson INR GUIDELINES SEE BELOW Normal [facility] Comment on above: Result Comment: KOFI RED INR: 2.0 - 3.0 CONDITIONS NOT LISTED BELOW 2.5 - 3.5 FOR PROSTHETIC HEART VALVE REPLACEMENT 2.5 - 3.5 RECURRENT THROMBOSIS Performed By: #### P T ####[facility] [address] [place] [address]Dr. Jason Pearson PT Coag (PPP) [Time] 11.9 s Critically high 9.0-11.6 [facility] Comment on above: Performed By: #### P T ####[facility] [address] [id number]. Jason Pearson PROTIMEon 03-22-2022 INR Coag (PPP) [Relative time] 1.32 {INR} Normal [facility] Comment on above: Performed By: #### P T #### [facility] [address] [address] [address] Jason Pearson INR GUIDELINES SEE BELOW Normal [facility] Comment on above: Result Comment: KOFI RED INR: 2.0 - 3.0 CONDITIONS NOT LISTED BELOW 2.5 - 3.5 FOR PROSTHETIC HEART VALVE REPLACEMENT 2.5 - 3.5 RECURRENT THROMBOSIS Performed By: #### P T #### [facility] [address] [place] [address] Dr. Jason Pearson PT Coag (PPP) [Time] 14.0 s Critically high 9.0-11.6 [facility] Comment on above: Performed By: #### P T #### [facility] [address] [place] [address] Dr. Jason Pearson PROTIMEon 02-07-2022 INR Coag (PPP) [Relative time] 1.08 {INR} Normal [facility] Comment on above: Performed By: #### P T #### [facility] [address] [place] [address] Dr. Jason Pearson INR GUIDELINES SEE BELOW Normal [facility] Comment on above: Result Comment: KOFI RED INR: 2.0 - 3.0 CONDITIONS NOT LISTED BELOW 2.5 - 3.5 FOR PROSTHETIC HEART VALVE REPLACEMENT 2.5 - 3.5 RECURRENT THROMBOSIS Performed By: #### P T #### [facility] [address] [place] [address] Dr. Jason Pearson PT Coag (PPP) [Time] 11.6 s Normal 9.0-11.6 [facility] Comment on above: Performed By: #### P T #### [facility] [address] [place] [address] Dr. Jason Pearson XR HIP RT INJon [...] remained the same pre and post injection (09/16). COMPLICATIONS: None. OTHER: Negative. IMPRESSION: 1. Technically successful right hip injection without any immediate pain relief. Clinical follow-up recommended. Electronically authenticated by: RUPERT MOON Date: 2022-02-07 11:09 Normal [facility] Initial Visit (Gastroenterol ogy)on 03-28-2018 Initial Visit (Gastroenterology) Chief ComplaintReferral from Dr. Bunch, for bump found during colonoscopy/endoscopy. History of Present IllnessReferred by Dr. Kay Macedo for a lesion in the duodenumProximal colon resection for early colon cancer with redo surgery for an anastomotic stenosis 2014 about 10 days apart Routine EGD for GERD found an 8 mm submucosal lesion in the second portion of the duodenumSince surgery he has had diarrhea with many foods; no better with Metamucil and Imodium No evidence of weight loss, flushing or nocturnal diarrhea Review of Systemsa 13 point review of systems was obtained from the patient and documented on the [facility] health history questionnaire. Pertinent positives and negatives [...] MG Oral Tablet; TAKE 1 TABLET DAILY;Therapy: (Recorded:[id number]) to Recorded Dispense: 0 Days ; #: Sufficient Tablet; Refill: 0; KP = N; Record; Last Updated By: Toyin Angeles; 03/28/2018 9:14:26 AM Flecainide Acetate 100 MG Oral Tablet; TAKE 1 TABLET EVERY 12 HOURS DAILY;Therapy: (Recorded:[id number]) to Recorded Dispense: 0 Days ; #: Sufficient Tablet; Refill: 0; KP = N; Record; Last Updated By: Toyin Angeles; 03/28/2018 9:14:26 AM HydroCHLOROthiazide 25 MG Oral Tablet; TAKE 1 TABLET DAILY;Therapy: (Recorded:[id number]) to Recorded Dispense: 0 Days ; #: Sufficient Tablet; Refill: 0; KP = N; Record; Last Updated By: Toyin Angeles; 03/28/2018 9:14:26 AM Imodium A-D CAPS;Therapy: (Recorded:[id number]) to Recorded Dispense: 0 Days ; #: Sufficient CAPS; Refill: 0; KP = N; Record; Last Updated By: Toyin Angeles; 03/28/2018 9:14:26 AM Klor-Con M20 20 MEQ Oral Tablet Extended Release; TAKE 2 TABLETS TWICE DAILY;Therapy: (Recorded:[id number]) to Recorded Dispense: 0 Days ; #: Sufficient Tablet Extended Release; Refill: 0; KP = N; Record; Last Updated By: Toyin Angeles; 03/28/2018 9:14:26 AM Lisinopril 40 MG Oral Tablet; TAKE 1 TABLET DAILY;Therapy: (Recorded:[id number]) to Recorded Dispense: 0 Days ; #: Sufficient Tablet; Refill: 0; KP = N; Record; Last Updated By: Toyin Angeles; 03/28/2018 9:14:26 AM Loratadine 10 MG Oral Tablet; TAKE 1 TABLET DAILY;Therapy: (Recorded:[id number]) to Recorded Dispense: 0 Days ; #: Sufficient Tablet; Refill: 0; KP = N; Record; Last Updated By: Toyin Angeles; 03/28/2018 9:14:26 AM Metoprolol Tartrate 100 MG Oral Tablet; TAKE 1 TABLET DAILY;Therapy: (Recorded:28Mar2018) to Recorded Dispense: 0 Days ; #: Sufficient Tablet; Refill: 0; KP = N; Record; Last Updated By: Toyin Angeles; 03/28/2018 9:14:26 AM Multivitamins TABS;Therapy: (Recorded:28Mar2018) to Recorded Dispense: 0 Days ; [...] AM Vitals Vital Signs Recorded: 28Mar2018 09:12AMHeart Covm41Yqwymodomoh51Kjbsaeqd14 9Lxuykusbw20Aeciyj7 ft 2 ceWrpwbm090 lb 6 ozBMI Iurjetgpuv33.52BSA Calculated2.67 Physical ExamConstitutional General appearance: In no [...] diarrhea; KP = N; Verified Transmission to [id number]; Last Updated By: [employer]; 03/28/2018 9:44:38 AM Provider ImpressionsSubmucosal duodenal lesion [...] MG Oral Tablet; TAKE 1 TABLET DAILY;Therapy: (Recorded:[id number]) to RecordedCholestyramine Light 4 GM Oral Packet; MIX THE CONTENTS OF 1 POWDER PACKETWITH 2-6 OZ OF NONCARBONATED BEVERAGE AND SWALLOW ONCE DAILY;Therapy: [id number] to (Evaluate:[id number]) Requested for: [id number]; LastRx:[id number] OrderedFlecainide Acetate 100 MG Oral Tablet; TAKE 1 TABLET EVERY 12 HOURS DAILY;Therapy: (Recorded:[id number]) to RecordedHydroCHLOROthiazide 25 MG Oral Tablet; TAKE 1 TABLET DAILY;Therapy: (Recorded:[id number]) to RecordedImodium A-D CAPS (Loperamide HCl);Therapy: (Recorded:[id number]) to RecordedKlor-Con M20 20 MEQ Oral Tablet Extended Release; TAKE 2 TABLETS TWICE DAILY;Therapy: (Recorded:[id number]) to RecordedLisinopril 40 MG Oral Tablet; TAKE 1 TABLET DAILY;Therapy: (Recorded:[id number]) to RecordedLoratadine 10 MG Oral Tablet; TAKE 1 TABLET DAILY;Therapy: (Recorded:51Wha1121) to RecordedMetoprolol Tartrate 100 MG Oral Tablet; TAKE 1 TABLET DAILY;Therapy: (Recorded:[id number]) to RecordedMultivitamins TABS;Therapy: (Recorded:[id number]) to RecordedTamsulosin HCl - 0.4 MG Oral Capsule;Therapy: (Recorded:[id number]) to RecordedVitamin B-12 ER 1500 MCG Oral Tablet Extended Release;Therapy: (Recorded:[id number]) to RecordedVitamin D3 2000 UNIT Oral Tablet;Therapy: (Recorded:[id number]) to RecordedWarfarin Sodium 5 MG Oral Tablet; TAKE 1 TABLET DAILY;Therapy: (Recorded:[id number]) to Recorded Signatures Electronically signed by : Devin Greer DO; Mar 28 2018 9:51AM EST (Author) Normal [employer] Vital Signs Date Time Vital Sign Value Performing Clinician Facility 01-23-2024 14:11-0400 Blood Pressure Location CATHIE MONTIEL [facility] 01-23-2024 14:11-0400 Body temperature 97.88 [degF] CATHIE MONTIEL [facility] 01-23-2024 14:11-0400 Diastolic blood pressure 74 mm[Hg] CATHIE MONTIEL [facility] 01-23-2024 14:11-0400 Heart rate 67 /min CATHIE MONTIEL [facility] 01-23-2024 14:11-0400 Respiratory rate 16 /min CATHIE MONTIEL [facility] 01-23-2024 14:11-0400 Systolic blood pressure 138 mm[Hg] CATHIE MONTIEL [facility] 10-19-2023 10:19-0400 Body height 187.96 cm [facility] 10-19-2023 10:19-0400 Body mass index (BMI) [Ratio] 40.1 kg/m2 [facility] 10-19-2023 10:19-0400 Body weight 141.63 kg [facility] 10-19-2023 10:19-0400 Diastolic blood pressure 84 mm[Hg] [facility] 10-19-2023 10:19-0400 Heart rate 71 /min [facility] 10-19-2023 10:19-0400 SaO2% (BldA) [Mass fraction] 98 % [facility] 10-19-2023 10:19-0400 Systolic blood pressure 132 mm[Hg] [facility] 07-13-2023 15:30-0500 Body height 187.96 cm Donald Lizarraga Other [employer] [facility] [employer] Other 07-13-2023 15:30-0500 Body mass index (BMI) [Ratio] 40.18 kg/m2 Donald Lizarraga Other [employer] [facility] [employer] Other 07-13-2023 15:30-0500 Body weight 141.98 kg Donald Lizarraga Other [employer] [facility] [employer] Other 07-13-2023 15:30-0500 Diastolic blood pressure 86 mm[Hg] Donald Lizarraga Other [employer] [facility] [employer] Other 07-13-2023 15:30-0500 Systolic blood pressure 142 mm[Hg] Donald Lizarraga Other [facility] Other 01-24-2023 10:00-0400 Blood Pressure Location CATHIE TIANA [facility] 01-24-2023 10:00-0400 Diastolic blood pressure 80 mm[Hg] CATHIE TIANA [facility] 01-24-2023 10:00-0400 Heart rate 72 /min CATHIE TIANA [facility] 01-24-2023 10:00-0400 Respiratory rate 16 /min CATHIE TIANA [facility] 01-24-2023 10:00-0400 Systolic blood pressure 130 mm[Hg] CATHIE TIANA [facility] 10-06-2022 10:17-0400 Diastolic blood pressure 78 mm[Hg] Daigle SALAM [facility] 10-06-2022 10:17-0400 Heart rate 69 /min Daigle SALAM [facility] 10-06-2022 10:17-0400 Respiratory rate 16 /min Daigle SALAM [facility] 10-06-2022 10:17-0400 SaO2% (BldA) [Mass fraction] 99 % Daigle SALAM [facility] 10-06-2022 10:17-0400 Systolic blood pressure 122 mm[Hg] Daigle SALAM [facility] 10-06-2022 10:05-0400 Diastolic blood pressure 76 mm[Hg] Daigle SALAM [facility] 10-06-2022 10:05-0400 Heart rate 67 /min Daigle SALAM [facility] 10-06-2022 10:05-0400 Respiratory rate 18 /min Daigle SALAM [facility] 10-06-2022 10:05-0400 SaO2% (BldA) [Mass fraction] 99 % Daigle SALAM [facility] 10-06-2022 10:05-0400 Systolic blood pressure 135 mm[Hg] Daigle SALAM [facility] 10-06-2022 10:00-0400 Diastolic blood pressure 70 mm[Hg] Daigle SALAM [facility] 10-06-2022 10:00-0400 Heart rate 66 /min Daigle SALAM [facility] 10-06-2022 10:00-0400 Systolic blood pressure 134 mm[Hg] Daigle SALAM [facility] 10-06-2022 09:55-0400 Respiratory rate 16 /min Daigle SALAM [facility] 10-06-2022 09:52-0400 Body temperature 97.7 [degF] Adigle SALAM [facility] 10-06-2022 09:40-0400 Respiratory rate 1 /min Daigle SALAM [facility] 10-06-2022 08:21-0400 Blood Pressure Location Daigle SALAM [facility] 10-06-2022 08:21-0400 Body temperature 97.88 [degF] Daigle SALAM [facility] 07-29-2022 14:15-0500 Diastolic blood pressure 88 mm[Hg] Elicia Mcmillan [facility] 07-29-2022 14:15-0500 Mean blood pressure 105 mm[Hg] Elicia Mcmillan [facility] 07-29-2022 14:15-0500 Systolic blood pressure 138 mm[Hg] Elicia Garciametz [facility] 07-29-2022 14:11-0500 Blood Pressure Location Elicia Mcmillan [facility] 07-29-2022 14:11-0500 Body temperature 97.88 [degF] Elicia Mcmillan [facility] 07-29-2022 14:11-0500 Diastolic blood pressure 87 mm[Hg] Elicia Mcmillan [facility] 07-29-2022 14:11-0500 Heart rate 77 /min Elicia Mcmillan [facility] 07-29-2022 14:11-0500 Systolic blood pressure 147 mm[Hg] Elicia Mcmillan [facility] 07-26-2022 10:45-0500 Body height 187.96 cm Donald Lizarraga Other [facility] Other 07-26-2022 10:45-0500 Body mass index (BMI) [Ratio] 41.47 kg/m2 Donald Lizarraga Other [facility] Other 07-26-2022 10:45-0500 Body weight 146.51 kg Donald Lizarraga Other [facility] Other 07-26-2022 10:45-0500 Diastolic blood pressure 84 mm[Hg] Donald Lizarraga Other [facility] Other 07-26-2022 10:45-0500 SaO2% (BldA) [Mass fraction] 97 % Donald Lizarraga Other [facility] Other 07-26-2022 10:45-0500 Systolic blood pressure 142 mm[Hg] Donald Lizarraga Other [facility] Other 10-27-2021 12:02-0400 Blood Pressure Location [facility] 10-27-2021 12:02-0400 Diastolic blood pressure 78 mm[Hg] CATHIEHUNTER MONTIEL [facility] 10-27-2021 12:02-0400 Heart rate 77 /min CATHIE AZEVEDORY [facility] 10-27-2021 12:02-0400 Systolic blood pressure 141 mm[Hg] [facility] En[facility]ters Encounter Date Encounter Type Care Provider Facility Start: 04-15-2024 End: 04-15-2024 ambulatory PRASANTH PEREZ Facility:[facility] Start: 01-23-2024 End: 01-23-2024 ambulatory CATHIE MONTIEL Facility:[facility] Start: 01-23-2024 End: 01-23-2024 Patient encounter procedure CATHIE MONTIEL [facility] [employer] Start: 12-27-2023 End: 12-28-2023 Patient encounter status Emperatriz Reynoldsim DO Work Phone: [facility] Start: 12-27-2023 End: 12-28-2023 Refill Emperatriz Karim DO Work Phone: [employer] [facility] Comment on above: Refill Start: 10-19-2023 End: 10-19-2023 ambulatory [facility] Work Phone: Start: 10-19-2023 End: 10-19-2023 Patient encounter procedure [facility] Work Phone: Start: 09-07-2023 Non-patient / Non-visit [facility] [employer] Work Phone: Start: 07-20-2023 End: 07-20-2023 ambulatory Donald Lizarraga Other [facility] Other Start: 07-20-2023 Telephone encounter Donald Lizarraga [facility] Start: 07-13-2023 End: 07-13-2023 ambulatory Donald Lizarraga Other [facility] Other Start: 07-13-2023 Office outpatient vi sit 15 minutes Donald Lizarraga [facility] Start: 04-04-2023 Patient encounter status Emperatrizquique Carnes DO Work Phone: [employer] Start: 04-04-2023 Refill Emperatriz Karim DO Work Phone: [facility] Comment on above: Refill Start: 03-29-2023 End: 03-29-2023 Office outpatient visit 15 minutes Emperatriz Karim DO Work Phone: [facility] Comment on above: Persistent atrial fi brillation (HCC) (Primary Dx); Anticoagulated; JAVED on CPAP Start: 03-28-2023 End: 03-28-2023 ambulatory Donald Lizarraga Other [facility] Other Start: 03-28-2023 Telephone encounter Donald Lizarraga [facility] Start: 03-18-2023 Letter encounter Emperatriz Reynoldsbetsy D O Work Phone: [employer] Start: 02-16-2023 Telephone encounter Emperatriz Roz m DO [facility] Comment on above: Question about medic ation Refill Start: 02-14-2023 Patient encounter status Emperatriz Carnes DO Work Phone: [facility] Start: 02-14-2023 Refill Emperatriz Carnes DO [facility] Comment on above: Refill Start: 01-24-2023 End: 01-24-2023 Lab Drop off CATHIE MONTIEL [facility] Start: 01-24-2023 End: 01-24-2023 Patient encounter procedure CATHIE MONTIEL [facility] Start: 11-10-2022 End: 11-11-2022 ambulatory JEET HERNÁNDEZ . Facility:[facility] Start: 11-07-2022 End: 12-07-[address] DONALD LIZARRAGA Facility:[facility] Start: 10-13-2022 ambulatory NARENDRANATH LAKSHMIPATHY . Facility:[facility] Start: 10-11-2022 (Televisit) Televisit Donald Leon [facility] Start: 10-11-2022 End: 10-11-2022 ambulatory Donald Lizarraga Other [facility] Other Start: 10-10-2022 End: 11-04-2022 ambulatory SHAIKH Gurwinder FARMER Facility:[facility] Start: 10-06-2022 End: 10-06-2022 Patient encounter procedure Oxana IBARRA [facility] Start: 2022 Telephone encounter Donald BARRERA [facility] Start: 2022 End: 09-09-[address] DONALD LIZARRAGA [employer] Other Start: 09-07-2022 End: 10-07-2022 ambulatory SHAIKH Gurwinder FARMER Facility:[facility] Start: 08-10-2022 End: 09-07-2022 ambulatory WOMACK H MARLENY Facility:[facility] Start: 07-29-2022 End: 07-29-2022 Patient encounter procedure Elicia Mcmillan [facility] Start: 07-26-2022 End: 07-26-2022 ambulatory Donald Lizarraga Other [facility] [employer] Other Start: 07-26-2022 Office outpatient vi sit 15 minutes Donald Lizarraga [facility] Start: 07-20-2022 End: 07-21-[address] JADEN VILLA . Facility:[facility] Start: 07-11-2022 End: 08-10-2022 ambulatory SHAIKH Gurwinder FARMER Facility:[facility] Start: 06-28-2022 End: 06-28-[address] JADEN [...] Facility:[facility] Start: 02-27-2022 Patient encounter status Emperatriz Reynoldsim DO Work Phone: [email or web address] Start: 02-27-2022 Refill Emperatrizquique Reynoldsim DO Work Phone: [facility] Comment on above: Refill Start: 02-07-2022 End: 02-07-[address] DONALD LIZARRAGA Facility:[facility] Start: 02-07-2022 End: 03-09-[address] DONALD LIZARRAGA Facility:[facility] Start: 01-15-2022 Refill Emperatriz Rodolfoim DO Work Phone: [facility] Comment on above: Refill Start: 01-07-2022 End: 02-04-[address] DONALD LIZARRAGA Facility:[facility] Start: 11-24-2021 Patient encounter status Emperatriz Rodolfoim DO Work Phone: [email or web address] Start: 11-24-2021 Refill Emperatriz Karim DO Work Phone: [facility] Comment on above: Refill Start: 11-24-2021 Refill Emperatriz Karim DO [facility] Phone[email or web address] Comment on above: Refill Start: 10-27-2021 End: 10-27-2021 Patient encounter procedure CATHIE MONTIEL [facility] Start: 03-28-2018 Patient encounter Devin Greer Maicol cility:[facility] Start: 04-24-2017 End: 04-25-2017 Ambulatory DEFAULT PHYSICIAN Facility:[facility] Start: 03-03-2017 End: 03-04-2017 Ambulatory DEFAULT PHYSICIAN Facility:[facility] Procedures Date Procedure Procedure Detail Performing Clinician Start: 10-06-2022 Colonoscopy Oxana IBARRA Start: [address] JADEN VILLA . Comment on above: Performed By: #### PSASC #### [facility] [address] [place] [address] Dr. Jason Pearson Start: 04-23-2020 Transurethral prostatectomy CATHIE PARIS Start: 07-19-2018 Transrectal biopsy of prostate using ultrasound guidance CATHIE MONTIEL Start: 12-21-2017 Esophagogastroduodenoscopy Elicia marrero Start: 08-28-2017 Screening for malignant neoplasm of colon Donald Lizarraga Other Start: 08-26-2016 Screening for malignant neoplasm of prostate Dnoald Lizarraga Other Start: 04-18-2014 Removal of suture Donald Lizarraga Other Start: 02-13-2014 General examination of patient Donald katz Other Colonoscopy CATHIE AZEVEDORY Excision of cyst CATHIE CHERY RRSierra Local anesthetic ner ve block in lower limb CATHIEHUNTER AZEVEDORY Screening for malign ant neoplasm of colon Donald Lizarraga Other Screening for malign ant neoplasm of prostate Donald Lizarraga Other Special back care CATHIE DIAZ Plan of Treatment Date Care Activity Detail Author Start: 09-09-2027 Lipid panel Cholesterol [facility] Start: 04-09-2023 Influenza vaccination Influenza Vaccine (#1) [facility] Start: 03-29-2023 End: 03-29-2023 Telemedicine consultation with patient 03/29/2023 4:20 PM EDT Telemedicine [facility] [address] [place] [address] Emperatriz Carnes DO [address] [place] [address] [facility] Start: 03-10-2023 COVID-19 Vaccine ( season) COVID-19 Vaccine ( season) [facility] Start: 03-10-2023 Influenza vaccination Influenza Vaccine (#1) [...] Annual Wellness Visit (G0438) [facility] Start: 2013 Hepatitis B (HBV) Vaccine (optional start 60+ years) Hepatitis B (HBV) Vaccine (optional start 60+ years) [facility] Start: 2013 RSV vaccine (optional 60+ [...] Start: 1988 Lipid panel Cholesterol [facility] Start: 1972 Hepatitis A (HAV) Vaccine (optional start 19+ years) Hepatitis A (HAV) Vaccine (optional start 19+ years) [facility] Start: 09-09-1971 Hepatitis C screening Hepatitis C Antibody [facility] Start: 09-09-1971 Tetanus + diphtheria + acellular pertussis vaccine (product) Tdap Booster [facility] Start: 1953 COVID-19 Vaccine ( formulation) COVID-19 Vaccine ( formulation) [facility] Start: 1953 Screening for malignant neoplasm of [facility] Immunizations Immunization Date Immunization Notes Care Provider Fa cility 05-24-2023 Pneumococcal conjuga te 20 valent (PCV20), polysaccharide [id number] conjugate, adjuvant, PF (NUY=548) Emperatriz [employer] Work Phone: [email or web address] 05-10-2023 influenza virus vaccine, unspecified formulation CATHIE MONTIEL [facility] 05-10-2023 Influenza, seasonal vaccine, quadrivalent, adjuvanted, 0.5mL dose, preservative free (BZP=702) Emperatriz [employer] Work Phone: [email or web address] 05-24-2022 influenza virus vaccine, unspecified formulation Elicia Mcmillan [facility] 05-24-2022 Influenza, seasonal vaccine, quadrivalent, adjuvanted, 0.5mL dose, preservative free (TXF=204) [facility] Work Phone: [email or web address] 12-16-2021 Pfizer Monovalent (1 2+ yrs) SARS-COV-2 (COVID-19) vaccine, mRNA, spike protein, LNP, pres. free, 30 mcg/0.3mL dose, art-sucrose (CHI=108) Emperatriz [employer] Work Phone: [facility] 12-16-2021 SARS-CoV-2 mRNA (jjvmavygnuc-pizr-eosoz se) vaccine Elicia Mcmillan [facility] 08-18-2021 pneumococcal conjuga te vaccine, 13 valent Emperatriz [employer] Work Phone: [facility] 06-09-2021 SARS-CoV-2 (COVID-19 ) mRNA BNT-162b2 vax Elicia Mcmillan [facility] 05-26-2021 SARS-CoV-2 (COVID-19 ) Ad26 vaccine, recombinant CATHIE MONTIEL [facility] 05-21-2021 Influenza, seasonal vaccine, quadrivalent, adjuvanted, 0.5mL dose, preservative free (WVM=359) Emperatriz Karim DO Work Phone: [facility] 05-21-2021 influenza virus vaccine, unspecified formulation Emperatriz Karim DO Work Phone: [facility] 04-28-2021 influenza virus vaccine, unspecified formulation CATHIE MONTIEL [facility] 04-28-2021 SARS-CoV-2 (COVID-19 ) Ad26 vaccine, recombinant CATHIE MONTIEL [facility] 09-26-2020 Pfizer SARS-COV-2 (COVID-19) vaccine, age 12+ yrs, mRNA, spike protein, LNP, preservative free, 30 mcg/0.3mL dose (ISM=537) Emperatriz Karim DO Work Phone: [facility] Comment on above: Result Comment: 2022: [id number] 09-05-2020 Pfizer SARS-COV-2 (COVID-19) vaccine, age 12+ yrs, mRNA, spike protein, LNP, preservative free, 30 mcg/0.3mL dose (UMJ=600) Emperatriz Karim DO Work Phone: [facility] Comment on above: Result Comment: 2022: [id number] 05-10-2020 influenza virus vaccine, unspecified formulation CATHIE MONTIEL [facility] 05-05-2020 influenza virus vaccine, unspecified formulation Elicia Garciametz [facility] 05-05-2020 Influenza, seasonal vaccine, quadrivalent, adjuvanted, 0.5mL dose, preservative free (SYM=552) Emperatriz Karim DO Work Phone: [facility] 04-29-2019 influenza virus vaccine, unspecified formulation Elicia Mcmillan [facility] 04-29-2019 influenza, high dose seasonal, preservative-free Emperatriz Karim DO Work Phone: [facility] 04-26-2018 influenza virus vaccine, unspecified formulation Elicia Mcmillan [facility] 04-26-2018 Influenza, injectabl e, Madin Courtney Canine Kidney, preservative free, quadrivalent Emperatriz Karim DO Work Phone: [facility] 04-19-2016 influenza virus vaccine, split virus (incl. purified surface antigen) Donald Lizarraga Other [facility] Other 04-19-2016 influenza virus vaccine, unspecified formulation [facility] 04-19-2016 pneumococcal polysaccharide vaccine, 23 valent Donald Lizarraga Other [facility] 06-23-2014 influenza virus vaccine, split virus (incl. purified surface antigen) Donald Lizarraga Other [employer] [facility] [employer] Other 06-23-2014 influenza virus vaccine, unspecified formulation [facility] 02-13-2014 diphtheria, tetanus toxoids and acellular pertussis vaccine, unspecified formulation Donald Lizarraga Other [facility] Payers Date Payer Category Payer Unknown 2018 Medicare MEDICARE MEDICAR E PART A & B [id number] 2018-Present [address] [place] [address] Medicare [id number] 1959 Medicare [id number] 1959 Unknown [id number] 1953 Unknown [id number] 1953 Unknown [id number] 1953 Unknown [id number] 1953 Unknown [id number] 1953 Unknown [id number] 1953 Unknown [id number] 2.16.840.1.782329.3.579.2.593 1955 Unknown [id number] 2.16.840.1.453265.3.579.2.593 1955 Unknown [id number] 2.16.840.1.621284.3.579.2.593 1953 Unknown [id number] 2.16.840.1.810309.3.579.2.593 1953 Unknown [id number] 2.16.840.1.089910.3.579.2.593 1953 Unknown [id number] 2.16.840.1.769296.3.579.2.593 1953 Unknown [id number] 2.16.840.1.395360.3.579.2.593 1953 Unknown [id number] 2.16.840.1.669151.3.579.2.593 1953 Unknown [id number] 2.16.840.1.640370.3.579.2.593 1953 Unknown [id number] 2.16.840.1.587089.3.579.2.593 1953 Unknown [id number] 2.16.840.1.692334.3.579.2.593 1953 Unknown [id number] 2.16.840.1.650124.3.579.2.593 1953 Unknown [id number] 2.16.840.1.650787.3.579.2.593 1953 Unknown [id number] 2.16.840.1.536361.3.579.2.593 1953 Unknown [id number] 2.16.840.1.024935.3.579.2.593 1953 Unknown [id number] 2.16.840.1.166364.3.579.2.593 1953 Unknown [id number] 2.16.840.1.248855.3.579.2.593 1953 Unknown [id number] 2.16.840.1.592664.3.579.2.593 1953 Unknown [id number] 2.16.840.1.071089.3.579.2.727 1953 Unknown [id number] 2.16.840.1.843382.3.579.2.732 Unknown [id number] Unknown [place] BC/BS [id number] Social History Date Type Detail Facility Start: 09-03-2020 End: 01-23-2024 Tobacco smoking status Never smoked tobacco (finding) [facility] Tobacco smoking status Never [facility] Start: 03-27-2023 Sex Assigned At Male [facility] Start: 12-28-2018 Tobacco use and exposure Smokeless tobacco non-user [facility] Start: 12-28-2018 End: 03-27-2023 Alcohol intake Ex-drinker (finding) [facility] Start: 1955 Sex Assigned At Not on file [facility] Start: 1955 Sex Assigned At Male [facility] Start: 03-27-2023 History of Social function [facility] Within the last year , have you been afraid of your partner or ex-partner? No [facility] Do you belong to any clubs or organizations such as presybeterian groups, unions, frafitmob or athletic groups, or school groups? Yes [facility] Are you now , , , , never or living with a partner? [facility] Do you feel stress - tense, restless, nervous, or anxious, or unable to sleep at night because your mind is troubled all the time - these days [OSQ] Not at all [facility] (I/We) worried wheth er (my/our) food would run out before (I/we) got money to buy more. Never true [facility] Start: 03-27-2023 Education 17 [facility] Functional Status Date Assessment Result Facility 01-23-2024 Functional Status N/A [facility] 01-24-2023 Functional Status N/A [facility] 10-06-2022 Functional Status N/A [facility] 07-29-2022 Functional Status N/A [facility] Clinical Notes 11-24-2021 to 01-23-2024 Note Date & Type Note Facility 01-23-2024 Hospital Discharg e instructions Patient Education 01/23/2024 14:28:31 Erectile Dysfunction Erectile Dysfunction Erectile dysfunction (ED) is the inability to get or keep an erection in order to have sexual intercourse. ED is considered a symptom of an underlying disorder and is not considered a disease. ED may include: Inability to get an erection. Lack [...] Parkinson's disease, spinal cord injury, and stroke. Certain medicines, such [...] be too curved to allow for intercourse. Never having nighttime or morning [...] Follow these instructions at home: Medicines Take beiy-pap-tfruuuv and prescription medicines only as told by [...] to the injection site for 5 minutes. Talk [...] help quitting, ask your health care provider. Before using a vacuum pump, read the instructions that come with the pump and discuss any questions with your health care provider. Keep all follow-up [...] provider. Document Revised: 09/22/2021 Document Reviewed: 09/22/2021 Heart Health Patient Education 2022 [employer]. Follow Up Care 01/24/2023 10:37:20 With:CATHIE MONTIEL PA-C, URL Address: [address] [place], [place] [address] [address] [phone] When: only if needed [facility] 01-23-2024 Note Patient Education Urology Erectile Dysfunction Erectile dysfunction [...] these instructions at home: Medicines ? Take qfzy-ttm-jclngax and prescription medicines only as told by [...] products that contain nicotine or tobacco. These (more content not included)... [facility] 07-13-2023 Evaluation note Encounter Date Diagnosis Assessment Notes Jul, Obstructive sleep apnea (ICD-10 - G47.33) Clinical signs which suggest the need for pressure adjustment were reviewed. He is compliant and faithful w using the device. Jul, Unspecified atrial fibrillation (ICD-10 - I48.91) >15 min spent in discussion/d ecision making. Continue followup w cardiology Jul, Essential hypertension (ICD-10 - I10) as above JANZZ Other 09-20-2023 History of Present illness Narrative* Emperatriz Carnes, DO - 03/29/2023 4:20 PM EDT Phone numbers Preferred Documentation: Mode: Video Consent: This visit was initiated by the patient. Audio and visual communication was utilized in real-time. I confirmed understanding of risks and benefits of telehealth visits and obtained consent to proceed with the telemedicine visit. Location of Patient: Home of patient Time-Based Billing Justifications: Charting in [facility] Patient visit (including performing a medically appropriate [...] male with PMH of atrial fibrillation, HTN, group home anticoagulation, JAVED,chronic back pain, arthritis, who was seen today for pAF. Last televisit- 08/2020- He had to ER on 05/22/20 when he had pain with a blood clot- needing to stop his coumadin for a short period of time. He felt like he has been in sinus rhythm on his self checks. He was on Hsukjialkl423 mg BID and Lopressor 100 mg BID. Since patient last saw me, he had TURP done- no further hematuria or urgency. PSA has been stable. Colonoscopy was normal per patient. No melena etc. ALLERGIES: Allergies Allergen Reactions Other (Review Comments!) MEDICATIONS: Current Outpatient Medications Medication Sig Dispense Refill Sodium Sulfate-Mag Sulfate-KCl (Sutab) [id number] MG TABS Take by mouth. AMLODIPINE BESYLATE [...] refused Stress: No Stress Concern Present (03/27/2023) [employer] [place] [employer] - Occupational Stress Questionnaire Feeling of Stress : Not at all Social Connections: Moderately Integrated (03/27/2023) Social Connection and Isolation Panel [NHANES] Frequency of Communication with Friends and Family: More than three times a week Frequency of Social Gatherings with Friends and Family: Twice a week Attends Church Services: Never Active Member of Clubs or [...] Assessment/Plan: Persistent atrial fibrillation (HCC) (Primary Diagnosis) [710740] Anticoagulated [176477] JAVED on CPAP [820005] Patient doing well overall as far as [...] Electrophysiology 03/29/23 4:52 PM documented in this [id number] Telephone encounter Note* Telephone Encounter - Crystal Putnam RN - 02/17/2023 9:17 AM EDT LVM for pt that new generic Rx (Toprol XL) was sent over to [facility]. [id number] Miscellaneous Notes* Telephone Encounter - Crystal Putnam RN - 02/17/2023 9:17 AM EDT LVM for pt that new generic Rx (Toprol XL) was sent over to [facility]. * Telephone Encounter - [facility], October Norberto - 02/16/2023 9:38 AM EDT [facility] wanting to know if they can dispense Metoprolol SUCC- ER 100 mg instead ofthe Toprol XL 100 mg, pt's insurance will only cover the generic brand. Please contact [phone] use Re:[phone]. Thank you documented in this [id number] Telephone encounter Note* Telephone Encounter - Aundrea Davis PharmD - 02/16/2023 3:00 PM EDT Patient called stating the original prescription that was sent had a KP for Toprol XL 100mg which is not covered. Please send over generic Metoprolol ER Succinate 100mg. Thank you! [id number] Miscellaneous Notes* Telephone Encounter - Aundrea Davis PharmD - 02/16/2023 3:00 PM EDT Patient called stating the original prescription that was sent had a KP for Toprol XL 100mg which is not covered. Please send over generic Metoprolol ER Succinate 100mg. Thank you! documented in this [id number] Telephone encounter Note* Telephone Encounter - [facility], October Norberto - 02/16/2023 9:38 AM EDT [facility] wanting to know if they can dispense Metoprolol SUCC- ER 100 mg instead ofthe Toprol XL 100 mg, pt's insurance will only cover the generic brand. Please contact Ross [phone] use Re:[phone]. Thank you [employer] Work Phone: 1(609) 327-709607-18-2023 Hospital Discharge instructions Patient Education 01/24/2023 10:34:12 [...] Follow these instructions at home: Medicines Take jjuz-yeu-wentwkt and prescription medicines only as told by [...] provider. Document Revised: 09/22/2021 Document Reviewed: 09/22/2021 [employer] Patient Education 2022 [employer]. Follow Up Care 10/27/2021 12:15:55 With:CATHIE MONTILE PA-C, URL Address: [address] [place] [address] When:Within 1 Year(s) [facility] 04-04-2023 Evaluation note* Encounter Date Diagnosis Assessment [...] I48.91) stable. 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 JANZZ Other 03-30-2023 Evaluation + Plan noteExtracted from: Title:CSB post op Author:Daljit Gooden MD Date:10/06/22 Plan Transfer/Discharge: Transfer/Discharge Discharge when meets criteria ( To home ). Extracted from: Title:KRISSY GA Author:Daljit Gooden MD Date:10/06/22 Plan [place] [employer] Anesthesiologists (ASA) physical status classification: Class III. Anesthetic Preoperative Plan: Anesthesia General. Future Appointments Appointment Date:01/25/2023 10:00:00 AM Scheduled Provider:Erica Chua MD Location:[facility] Appointment Type:URO Office Visit [facility]03-30-2023 Hospital Discharge instructions Patient Education 10/06/2022 10:00:07 Colonoscopy, Care After Surgery Salam (CUSTOM) Colonoscopy Care After Surgery Please read the instructions outlined below and refer to this sheet in the next few weeks. These discharge instructions provide you with general information on caring for yourself after you leave thehospital. Your doctor may also give you specific [...] 03/22/2005 Document Revised: 10/11/2018 Document Reviewed: 10/11/2018 Heart Health Patient Education 2020 [employer]. 10/06/2022 10:00:07 Hemorrhoids, Azhf-wn-Lmfm Hemorrhoids Hemorrhoids are swollen veins that may [...] 3 times a day. General instructions Take ctly-opn-oupcycy and prescription medicines only as told by [...] 04/04/2009 Document Revised: 07/04/2019 Document Reviewed: 11/15/2018 Heart Health Patient Education 2020 [employer]. Follow Up Care 07/29/2022 15:02:48 With:Oxana IBARRA Address: [address] [place] [address]. [address] [place] [address] [facility] (1) When: Unknown Comments:Call for any problems. [facility]01-20-2023 Hospital Discharge instructions Patient Education 07/29/2022 13:54:12 [...] including vitamins, herbs, eye drops, creams, and hpps-qlx-kmyzbvn medicines. Any problems you or family members [...] 06/23/2001 Document Revised: 04/18/2018 Document Reviewed: 09/06/2016 Heart Health Patient Education 2020 [employer]. Follow Up Care 07/05/2022 09:47:30 With:Elicia Mcmillan CNP Address: When:1 to 2 weeks Comments:Following colonoscopy. [facility] 01-17-2023 Evaluation note* Encounter Date [...] way. Continue follow-up with cardiology as scheduled. JANZZ Other 01-11-2023 NoteCONSULTATION CONSULTATION DATE: 07/20/2022 HISTORY [...] in three months' time unless otherwise indicated.[facility] 07-20-2022 NoteCONSULTATION PROCEDURE DATE: 07/20/2022 PREOPERATIVE DIAGNOSIS: [...] fan-like pattern. Patient tolerated the procedure well.[id number] NotePAIN MANAGEMENT CONSULTATION CONSULTATION DATE: 05/26/2022 HISTORY [...] post procedure, and he wishes to proceed.[id number] NoteCONSULTATION CONSULTATION DATE: 04/07/2022 HISTORY OF PRESENT [...] which is aggravated by prolonged standing and admission liaison hours. He states that such activity has [...] for re-evaluation. Patient agrees to this plan.[facility] [id number] NoteCONSULTATION CONSULTATION DATE: 03/03/2022 This is a 49-xgyc-nhocvlddc returning to clinic for a 3-month follow-up. [...] be followed up in the office following.[facility] [id number] Telephone encounter Note* Telephone Encounter - Erica Beckett - 03/01/2022 11:40 AM EDT Patient has not been seen by this specialist in more than 1 year. Please contact patient to schedule office visit. Thank you [id number] Miscellaneous Notes* Telephone Encounter - Erica Beckett - 03/01/2022 11:40 AM EDT Patient has not been seen by this specialist in more than 1 year. Please contact patient to schedule office visit. Thank you documented in this [id number] Telephone encounter Note* Telephone Encounter - Irina Nguyen - 01/18/2022 7:23 AM EDT Last visit with Cardiology (Emperatriz Carnes) on 09/03/2020 Requested Prescriptions Pending Prescriptions Disp Refills metoprolol (TOPROL-XL) 100 mg XL tablet [Pharmacy Med Name: METOPROLOL SUCCINATE ER TABS 100MG] 90 Tablet 3 Sig: TAKE 1 TABLET DAILY No PCP on file No PCP on file [id number] Miscellaneous Notes* Telephone Encounter - Irina Nguyen - 01/18/2022 7:23 AM EDT Last visit with Cardiology (Emperatriz Carnes) on 09/03/2020 Requested Prescriptions Pending Prescriptions Disp Refills metoprolol (TOPROL-XL) 100 mg XL tablet [Pharmacy Med Name: METOPROLOL SUCCINATE ER TABS 100MG] 90 Tablet 3 Sig: TAKE 1 TABLET DAILY No PCP on file No PCP on file documented in this [id number] Telephone encounter Note* Telephone Encounter - Anirudh Gonzalez [facility] - 11/29/2021 3:11 PM EDT Pt called back, will talk to his [facility] to get refill [email or web address] Work Phone: 1(978) 322-537605-23-2022 Miscellaneous Notes* Telephone Encounter - Anirudh Gonzalez RPh - 11/29/2021 3:11 PM EDT Pt called back, will talk to his [facility] to get refill * Telephone Encounter - Asia Laguna RN - 11/29/2021 2:52 PM EDT Left message for pt to return call to [facility] at [phone] 2nd attempt * Telephone Encounter - Cathie Whitley RN - 11/26/2021 2:46 PM EDT Left message for patient to please call back. 1st attempt * Telephone Encounter - Anirudh Gonzalez RPh - 11/25/2021 9:37 AM EDT [facility] Staff, Please contact pt re the following issue. Per 09/03/21 note pt goes to [facility] , they should refill, will deny Thanks! * Telephone Encounter - Tamiko Rodriguez PharmD - 11/24/2021 4:09 PM EDT Requested Prescriptions Pending Prescriptions Disp Refills warfarin (COUMADIN) 5 MG tablet 90 Tablet 0 Sig: Take 1 Tablet by mouth daily. No PCP on file No PCP on file documented in this [id number] Telephone encounter Note* Telephone Encounter - Asia Laguna RN - 11/29/2021 2:52 PM EDT Left message for pt to return call to [facility] at [phone] [facility]nd attempt [facility] Work Phone: 1(738) 374-626105-20-2022 Telephone encounter Note* Telephone Encounter - Cathie Whitley RN - 11/26/2021 2:46 PM EDT Left message for patient to please call back. 1st attempt [id number] Telephone encounter Note* Telephone Encounter - Anirudh Gonzalez RPh - 11/25/2021 9:37 AM EDT [facility] Staff, Please contact pt re the following issue. Per 09/03/21 note pt goes to [facility] , they should refill, will deny Thanks! [id number] Telephone encounter Note* Telephone Encounter - Tamiko Rodriguez PharmD - 11/24/2021 4:09 PM EDT Requested Prescriptions Pending Prescriptions Disp Refills warfarin (COUMADIN) 5 MG tablet 90 Tablet 0 Sig: Take 1 Tablet by mouth daily. No PCP on file No PCP on file [facility] Work Phone: 1(628) 716-830805-18-2022 Miscellaneous Notes* Telephone Encounter - Tamiko Rodriguez [...] [Pharmacy Med Name: POTASSIUM CHLORIDE ER (DISP) [id number]] 180 Tablet 3 Sig: TAKE 1 TABLET TWICE A DAY Refused Prescriptions Disp Refills warfarin (COUMADIN) 5 MG tablet [Pharmacy Med Name: WARFARIN TABS 5MG] 90 Tablet 3 Sig: TAKE 1 TABLET DAILY (INR: 2.33) No PCP on file No PCP on file documented in this encounterMetroHealthEvaluation + Plan note Future Appointments Appointment Date:11/01/2022 09:45:00 AM Scheduled Provider:Min Tristan Jr., MD Location:[facility] Appointment Type:URO Office Visit Diagnostic Tests Pending * PSA Total 10/27/21 [facility] evaluation + Plan note Future Appointments Appointment Date:10/06/2022 09:00:00 AM Scheduled Provider: Location:[facility] Appointment Type:Surgery FT Appointment Date:11/01/2022 09:45:00 AM Scheduled Provider:Min Tristan Jr., MD Location:[facility] Appointment Type:URO Office Visit [facility] Evaluation + Plan note Future Appointments Appointment Date:01/30/2024 10:00:00 AM Scheduled Provider:CATHIE MONTIEL PA-C Location:[facility] Appointment Type:URO Office Visit [facility] evaluation + Plan note Future Appointments Appointment Date:01/30/2024 10:00:00 AM Scheduled Provider:CATHIE MONTIEL PA-C Location:[facility] Appointment Type:URO Office Visit Diagnostic Tests Pending * Urine Culture [facility] Diagnosis PAF (paroxysmal atrial fibrillation) (HCC) [...] present documented in this encounter [facility] noteNo Phonitive - [facility] CenterSoevolved Other Evaluation note* Diagnosis Persistent atrial fibrillation [...] present documented in this encounter [facility] noteNo assessment information availableU[facility] Work Phone: Evaluation note* Diagnosis PAF (paroxysmal atrial fibrillation) (HCC) Atrial fibrillation Anticoagulated Encounter for long-term (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 Preop cardiovascular exam Pre-operative cardiovascular examination JAVED on CPAP Obstructive sleep apnea (adult) (pediatric) Obesity, unspecified classification, unspecified obesity type, unspecified whether serious comorbidity present Persistent atrial fibrillation (HCC) Atrial fibrillation documented in this encounter [facility] general Narrative [...] Hospitalization History No Hospitalization histo ry information JANZZ Other Hospital course Narrative No data available for this section [facility] Hospital Discharge instructions No data available for this section [facility] progress note No data available for this section [facility] Summary Purpose Family History No Family History Records Found Relationship Condition Age at Onset Recorded Date/T gerhard father Unknown Malignant neoplasm Unknown Not Specified Unknown Advance Directives No Advanced Directives Records Found Advance Directive Response Recorded Date/ Time Advance Directives No October 18 024 10:11am Chief Complaint and Reason for Visit Chief Complaint Amb Documentation Cough Additional Source Comments (unrecognized sect ion and content) No Status Records FoundNo Status Records FoundNo Status Records FoundNo Status Records FoundNo Status Records FoundNo Status Records Found INFORMATION SOURCE (unrecogn ized section and content) DATE CREATED AUTHOR 01/02/2018 [facility] DATE CREATED AUTHOR AUTHOR'S ORGANIZ ATION 04/24/2018 [facility] DATE CREATED AUTHOR AUTHOR'S ORGANIZ ATION 05/06/[address] [facility] DATE CREATED AUTHOR AUTHOR'S ORGANIZ ATION 12/16/2022 [facility] DATE CREATED AUTHOR AUTHOR'S ORGANIZ ATION 01/25/2024 [facility] DATE CREATED AUTHOR AUTHOR'S ORGANIZ ATION 04/15/2024 [facility] [employer] Reason for Visit (unrecogniz ed section and content) Reason Comments Refill Reason Onset Date Comments Refill 11/24/2021 Reason Onset Date Comments Refill 02/14/2023 Reason Onset Date Comments Question about medication 02/16/2023 Reason Onset Date Comments Refill 02/16/2023 Reason Comments Atrial fibrillation/flutter Care Teams (unrecognized sec tion and content) Purchasing Analyst Relationship Specialty Start Date End Date Emperatriz Carnes DO [address] [address] Physician Electrophysiology 04/14/20 Purchasing Analyst Relationship Specialty Start Date End Date Emperatriz Carnes DO [address] [place] [address] Physician Electrophysiology 04/14/20 Purchasing Analyst Relationship Specialty Start Date End Date Emperatriz Carnes DO [address] [place] [address] Physician Electrophysiology 04/14/20 Purchasing Analyst Relationship Specialty Start Date End Date Emperatriz Carnes DO [address] [place] [address] [place] [address] Physician Electrophysiology 04/14/20 Purchasing Analyst Relationship Specialty Start Date End Date Emperatriz Carnes DO [address] [place] [address] [place] [address] Physician Electrophysiology 04/14/20 Purchasing Analyst Relationship Specialty Start Date End Date Emperatriz Carnes DO [address] [place] [address] [place] [address] Physician Electrophysiology 04/14/20 Purchasing Analyst Relationship Specialty Start Date End Date Emperatriz Carnse DO [address] [place] [address] Physician Electrophysiology 04/14/20 Purchasing Analyst Relationship Specialty Start Date End Date Emperatriz Carnes DO [address] [place] [address] Physician Electrophysiology 04/14/20 Purchasing Analyst Relationship Specialty Start Date End Date Emperatriz Carnes DO [address] [place] [address] Physician Electrophysiology 04/14/20 Team Status: Active Member Role Status Dates Donald Lizarraga MD Primary Care Provider Active Team Status: Active Member Role Status Dates Donald Lizarraga MD Primary Care Provider Active Start: September 07, 2023 OVIDIO Whitlock Attending Provider Active Start : September 07, 2023 Team Status: Inactive Member Role Status Dates Donald Lizarraga MD Primary Care Provide r, Attending Provider Active Start: October 19, 2023 End: October 19, 2023 Purchasing Analyst Relationship Specialty Start Date End Date Emperatriz Carnes DO [address] [place] [address] Physician Electrophysiology 04/14/20 Goals (unrecognized section and content) Goals may be documented in a n alternate section FOR RECORDS PERTAINING TO PATIENTS WHO ARE [...] BE BASED ON THE PRIMARY CLINICAL RECORDS. [facility] [place] [facility]. provides no warranty or guarantee of the accuracy or completeness of information in this document.
== END 2024-04-18 08:01 | disposition home or self-care (01) ==
LOC: PM 08:00
PROVIDERS: PCP Family Medicine; Visit Provider Nurse Practitioner
DX: M53.3 Sacrococcygeal disorders, not elsewhere classified (principal); M47.816 Spondylosis without myelopathy or radiculopathy, lumbar region; M51.369 Other intervertebral disc degeneration, lumbar region without mention of lumbar back pain or lower extremity pain; M48.062 Spinal stenosis, lumbar region with neurogenic claudication; M47.812 Spondylosis without myelopathy or radiculopathy, cervical region; M62.838 Other muscle spasm; Z79.01 Long term (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; G62.9 Polyneuropathy, unspecified; G57.01 Lesion of sciatic nerve, right lower limb
CPT/HCPCS: G0463

== ENCOUNTER 2024-04-29 07:16 | Day surgery (SDC) | payer MEDICARE, SELFPAY ==
--- OUTSIDE RECORDS SUMMARY | 2024-04-29 07:19 | XMS_ITS | CCD ---
Author Organization [facility] Care Team Providers Care Radiographer Angiogram Name Role Phone PHYSICIAN, DEFAULT Unavailable Unavailable PHYSICIAN, DEFAULT Unavailable Unavailable DONALD LIZARRAGA Unavailable Unavailable PHYSICIAN, DEFAULT Unavailable Unavailable PHYSICIAN, DEFAULT Unavailable Unavailable DONALD LIZARRAGA Unavailable Unavailable Devin Greer Unavailable Unavailable Donald Lizarraga Unavailable Unavaila ble DONALD LIZARRAGA Primary Care Physician Karbetsy DO, Emperatriz Unavailable Karim DO, Emperatriz Unavailable Donald Lizarraga Unavailable DR JADEN DOBBS Consulting Unavailable ALLEN ., DR JADEN Rodriguez [...] Rodriguez Attending Unavailable LAKSHMIPATHSierra ., NARENDRANATH Admitting Rochelle vailaDR DONALD Pineda Primary Care Unavailable JEET [...] Rodriguez Attending Unavailable MASON .CHARAN Consulting Unavailable LIZARRAGA, DR DONALD Ruano Admitting Unavailable LIZARRAGA, DR DONALD Ruaon Attending Unavailable LIZARRAGA, DR DONALD Ruano Consulting Unavailable LIZARRAGA, DR DONALD Ruano Primary Care Unavailable HALKER ., JEET Admitting Unavailable HALKER ., JEET Attending Unavailable [place], DR UNA Sofia Consulting Unavailable LIZARRAGA, DR [...] Allergy Type Date of Onset Reaction(s) Facility (15 sources) Other (Review Comments!); 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: [OTHER (REVIEW COMMENTS!)] Propensity to adverse reactions to drug 12-29-19 19 [facility] (7 sources) Decongestant Drug allergy 10-18-19 24 Unknown, [facility] (4 sources) DECONGESTANTS Propensity to adverse reactions 05-03-20 13 Unknown, [facility] (3 sources) Allergies Reconciled Propensity to adverse reactions Unknown [facility] [employer] Other (3 sources) patient allergy list reviewed by nurse or physicia Propensity to adverse reactions 11-23-19 17 Comment:Done XL Hybrids Other (1 source) No Known Medication Allergies; 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: [No Known Medication Allergies] Propensity to adverse reactions (disorder) [facility] Repository Medications Current Medications Medication Drug Class(es) Dates Sig (Normalized) Sig (Original) atorvastatin 20 mg oral tablet (20 sources) HMG-CoA Reductase Inhibitor Start: 12-20-2017 atorvastatin (LIPITOR) 20 MG tablet Indications: Preop cardiovascular exam , PAF (paroxysmal atrial fibrillation) (HCC) , Anticoagulated , JAVED on CPAP , Obesity, unspecified classification, unspecified obesity type, unspecified whether serious comorbidity present 11/19/2018 Active azithromycin 250 mg oral tablet (2 sources) Macrolide Antimicrobial Start: 10-11-2022 Azithromycin 250 MG as directed Orally 2 tabs po today, then 1 tab daily x 4 more days for 5 Oct, Active benzonatate 200 mg oral capsule (1 source) Non-narcotic Antitussive Start: 10-19-2023 Benzonatate Active 200 MG PO 2-3 TIMES PER DAY October 19, 2023 12:00am betamethasone 0.5 mg/ml / clotrimazole 10 mg/ml topical cream (4 sources) Azole Antifungal, Corticosteroid Start: 10-18-2023 Clotrimazole-Betame thasone Active APPLIC TOPICAL October 18, 2023 12:00am [...] Start: 11-19-2018 hydrochlorothiazide (HYDRODIURIL) 25 MG tablet Indications: Preop cardiovascular exam , PAF (paroxysmal atrial fibrillation) (HCC) , Anticoagulated , JAVED on CPAP , Obesity, unspecified classification, unspecified obesity type, unspecified whether serious comorbidity present 11/19/2018 Active Immodium A-D 2 mg Cap (2 sources) [...] 1 TABLET DAILY Start: 12-20-2017 End: 09-07-2023 lisinopril (PRINIVIL, ZESTRI L) 40 MG tablet Indications: Preop cardiovascular exam , PAF (paroxysmal atrial fibrillation) (HCC) , Anticoagulated , JAVED on CPAP , Obesity, unspecified classification, unspecified obesity type, unspecified whether serious comorbidity present 11/19/2018 Active loperamide hydrochloride 2 mg oral capsule (1 [...] follow instructions per packaging and physician's handout, [facility]/pharmacy #[id number], 183.8, cm, 07/29/22 14:15:00 EST, Height/Length Dosing, 145.3, kg, 07/29/22 14:15:00 EST, Weight Dosing Start Date: 07/29/22 Status: Ordered methylPREDNISolone 4 mg oral tablet (2 sources) Corticosteroid Start: 10-11-2022 methylPREDNISolone 4 MG as directed Orally for 6 days Oct, Active 24 hr metoprolol succinate 100 mg extended release oral tablet (20 sources) beta-Adrenergic Yadiel Start: 11-19-2018 End: 02-17-2024 metoprolol (TOPROL-XL) 100 mg XL tablet TAKE 1 TABLET DAILY 90 Tablet 3 12/28/2023 Active Start: 12-20-2017 take 1 tablet by ruma th once daily metoprolol tartrate 100 mg Tab 100 mg = 1 tab(s), Oral, Daily, Refills(s) 0, High blood pressure Start Date: 12/20/17 Status: Ordered Multivitamin (Multiple Vitamins) tablet (1 source) Start: [...] Olopatadine Active 1 DROPS OPHTHALMIC Twice daily 5 October 19, 2023 10:48am FreeTextSig: INSTILL 1 [...] tablet (20 sources) Start: 04-05-2023 End: 07-04-2023 Potassium Chloride (Klor-Con M20) 20 mEq tablet,ER particles/crystals Active 20 MEQ PO Twice daily October 19, 2023 12:00am Start: 09-03-2020 End: 05-30-2022 Klor-Con M20 20 [...] 2023 12:00am sildenafil 25 mg oral tablet (6 sources) Phosphodiesterase 5 Inhibitor Start: 01-24-2023 sildenafil citrate (VIAGRA) 25 MG tablet Take 25 mg by mouth. 01/24/2023 Active Sodium Sulfate-Mag Sulfate-KCl (Sutab) 8948-724-552 MG TABS (4 sources) Start: 07-29-2022 Sodium Sulfate -Mag Sulfate-KCl (Sutab) 9187-871-297 MG TABS Take by mouth. 07/29/2022 Active Start: 07-29-2022 Sodium Sulfate -Mag Sulfate-KCl (Sutab) 3280-150-222 MG TABS Take by mouth. 0 07/29/2022 [...] cardiovascular exam , PAF (paroxysmal atrial fibrillation) ([facility]) , Anticoagulated , JAVED on CPAP , Obesity, unspecified classification, unspecified obesity type, unspecified whether serious comorbidity present oxycodone-acetamino phen 5 mg-325 mg tablet 0 03/29/2023 Discontinued amLODIPine 10 mg oral tablet (11 sources) Dihydropyridine Calcium Channel Yadiel Start: 10-18-2023 [...] oral route. 0 03/29/2023 Discontinued Vitamin C Not-Adi ayala Aspir-81 (6 sources) Aspir-81 Not-David ing/PRN Aspir-81 Not-David ing aspirin 81 mg delayed release oral tablet (1 source) Platelet Aggregation Inhibitor, Nonsteroidal Anti-inflammatory Drug Start: 10-18-2023 End: 10-19-2023 take 81 mg by mouth once daily Aspirin Discontinued 81 MG PO Daily October 18, 2023 12:00am October 19, 2023 10:33am baclofen 10 mg oral tablet (20 sources) gamma-Aminobutyric Acid-ergic Agonist Start: 11-13-2018 End: 04-15-2024 take 1 tablet by mouth at bedtime baclofen (LIORESAL) 10 MG tablet Indications: Preop cardiovascular exam , PAF (paroxysmal atrial fibrillation) (HCC) , Anticoagulated , JAVED on CPAP , Obesity, unspecified classification, unspecified obesity type, unspecified whether serious comorbidity present Take 10 mg by mouth at bedtime. 4 11/13/2018 04/15/2024 Discontinued take 1 tablet by mouth every twe lve hours Baclofen 10 MG 1 tablet as needed Orally Twice a day Active carvedilol 3.125 mg oral tablet (7 sources) [...] (paroxysmal atrial fibrillation) (HCC) , Anticoagulated , AJVED on CPAP , Obesity, unspecified classification, unspecified [...] bronchitis] Onset: 11-08-2013 Episodic Cancer of colon (20 sources) Malignant tumor of colon; 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: [Malignant [...] [Essential (primary) hypertension] Onset: 05-03-2013 12-28-2018 Chronic Immunizations and screening for infectious disease (3 sources) Vaccination given; 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: [Encounter for immunization] Episodic Mycoses (9 sources) Candidiasis of skin; 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: [Candidiasis of skin and nail] Episodic Osteoarthritis (20 sources) Arthritis; 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: [Unspecified osteoarthritis, unspecified site] Onset: 05-27-2020 03-26-2019 Chronic Other aftercare (1 source) [facility] (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; 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: [EAR NOSE AND THROAT SPECIALIST CURRNT USE 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] Onset: 12-07-2022 Episodic Other [...] Onset: 03-28-2018 Episodic Other male genital disorders (7 sources) Male erectile dysfunction, unspecified; 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: [Erectile [...] pulmonale] Onset: 05-02-2016 Episodic Residual codes; unclassified (10 sources) Sleep apnea; 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: [Sleep apnea, unspecified] Onset: 03-29-2023 04-16-2020 Chronic Residual codes; unclassified (16 sources) Obstructive sleep apnea syndrome; 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: [Obstructive sleep apnea (adult) (pediatric)] Chronic Residual codes; unclassified (1 source) Obstructive sleep apnea (adult) (pediatric) Chronic Residual codes; unclassified (1 source) Family history of malignant neoplasm of digestive organ; 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: [Family history of malignant neoplasm of digestive organs] Onset: 07-29-2022 Episodic Spondylosis; intervertebral disc disorders; other back problems (15 sources) Spondylosis without myelopathy or radiculopathy, cervical region; 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: [Sacroiliitis, not elsewhere classified] Onset: 04-07-2022 Chronic Unclassified (6 sources) Asymptomatic microscopic hematuria 10-27-2021 Unclassified (6 sources) Patient encounter status 10-27-2021 Unclassified (5 sources) History of malignant neoplasm of colon and/or rectum 07-29-2022 Unclassified (4 sources) LOW BACK PAIN, UNSPECIFIED; 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: [LOW BACK PAIN, UNSPECIFIED] Onset: 03-25-2022 Past or Other Problems Problem Classification Problem Date Documented Da te Episodic/Chronic Cancer of rectum and anus (5 sources) History of malignant neoplasm of rectum; 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: [Personal history of other malignant neoplasm of rectum, rectosigmoid junction, and anus] Onset: 07-29-2022 Episodic Deficiency and other anemia (3 sources) Pernicious anemia; 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: [Vitamin B12 deficiency anemia due to intrinsic factor deficiency] Onset: 08-28-2017 Episodic Genitourinary symptoms and ill-defined conditions (20 sources) Blood in urine; 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: [Jonathan hematuria] Onset: 05-27-2020 Resolved: 03-29-2023 10-27-2021 Episodic Hyperplasia of prostate (20 sources) Benign prostatic hypertrophy with outflow obstruction; 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: [Benign prostatic hyperplasia with lower urinary tract symptoms] Onset: 09-15-2017 Resolved: 03-29-2023 Chronic Inflammation; infection of eye (except that caused by tuberculosis or sexually transmitteddisease) (3 sources) External hordeolum; 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: [Hordeolum externum unspecified eye, unspecified eyelid] Onset: 05-03-2013 Episodic Inflammatory conditions of male genital organs (3 sources) Acute prostatitis; 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: [Acute prostatitis] Onset: 05-30-2018 Episodic Other aftercare (20 sources) Drug therapy finding; 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: [[facility] (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] Onset: 09-03-2020 Episodic Other gastrointestinal disorders (3 [...] right lower extremity] Onset: 07-10-2016 04-16-2020 Episodic Residual codes; unclassified (15 sources) Family history of cancer of colon; [...] and Corynebacterium diphtheriae antigens (medicinal product); 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: [Ixwagijntg-mekfyex-r ertussis, combined [DTP] [DtaP]] Onset: 02-13-2014 Viral infection (1 source) COVID-19 Results Test Name Value Interpretation Reference Range Facility Progress Noteson 04-15-2024 Interactive Digital Media Specialist Authentication Interface Message Text EP video [...] his last visit, he had lexiscan at [facility] on 09/2016 that showe no reversible [...] in 1 year Prior to your visit, [facility] shared information with you about the risks [...] 180 Tablet 3 Sodium Sulfate-Mag Sulfate-KCl (Sutab) 9566-714-567 MG TABS Take by mouth. AMLODIPINE BESYLATE [...] declined Stress: No Stress Concern Present (03/27/2023) [employer] [place] [facility] [employer] - Occupational Stress Questionnaire Feeling of Stress : Not at all Social Connections: Moderately Integrated (03/27/2023) Social Connection and Isolation Panel [NHANES] Frequency of Communicatio (more content not included)... Normal [facility] Ambulatory Visit Summaryon 0 01-23-2024 Ambulatory [...] MARCELINO When: Only if needed Where: [address] [facility] [place] [address] [id number] Medications What How Much When Instructions Unchanged [...] ? Ne (more content not included)... [facility] Provider Letteron 01-23-2024 Provider Letter Provider Letter DONALD LIZARRAGA, [address] [place] [id number] Re: EVANGELIST YBARRA Date of : [address] ELHAM JACKSON, DONALD LYNNETTEEVANGELIST was evaluated at [facility] 01/30/2024 10:00:00 As this patient has been stable, they will be released back to your care. We request that you continue to check PSA annually for prostate cancer screening Should the patient develop new symptoms, worsening condition, or abnormal imaging/labs in the future, do not hesitate to refer them back. Thanks! Provider Signature: Cathie Montiel PA-C Physician Material Reclaimer [facility] [address] [place] [address] Normal [facility] Urology Office/Clinic Noteon 01-23-2024 Urology Office/Clinic Note Urology Office/Clinic Note Chief Complaint 1 year follow up with PSA HPI Staff 68 year old patient presents today for a 1 year follow up with PSA. No recent PSA on [facility], [facility], [facility], or [facility]. DX: BPH, ED & Elevated PSA TURP [...] from the high value in fall of 2018. -Cont annual PSA monitoring w/ PCP 2. [...] prn at prior OV pending clearance from firewall engineer but pt never filled script. Not a [...] CATHIE Ruano, URL Only if needed [address] [place] [address] [phone] Additional Instructions: Patient Education Erectile Dysfunction Documentation recorded by the juan david Caceres accurately reflects the services(s) I performed and decisions made by me. Authenticated by Cathie Montiel PA-C on 01/23/2024 14:33:17. Krystyna Rao, personally scribed for Cathie Montiel PA-C on [...] - De (more content not included)... [facility] Comment on above: Result Comment: Elec [...] AM) Normal Negative [facility] UA Auto SS [place]ooling.plasma/Lith ium.RBC (Bld) [Mass ratio] 0-3 /HPF Normal [...] AM) Invalid Interpretation Code 1.005 - 1.030 FT UA Auto SS UA Spec Desc Random Urine (01/24/23 10:19 AM) Normal [facility] UA Auto SS Urobilinogen Qn (U) [id number] {Anne'U}/dL Normal 0.0 - 1.0 EU/dL FT UA Auto SS WBC Auto Ql (U) [...] UNA SEARS Date: 2022-11-10 09:46 Normal [facility] CBC AUTO DIFFon 2022 BASO # 0.0 103/ul Normal 0.0-0.1 [facility] Comment on above: Performed By: #### C BC #### [facility] [address] [place] [address] Dr. Jason Pearson Basophils/100 WBC (Bld) 0.7 % Normal 0.2-2.0 [facility] Comment on above: Performed By: #### C BC #### [facility] [address] [place] [address] Dr. Jason Pearson EO # 0.2 103/ul Normal 0.0-0.7 [facility] Comment on above: Performed By: #### C BC #### [facility] [address] [place] [address] Dr. Jason Pearson Eosinophils/100 WBC (Bld) 3.7 % Normal 0.9-7.0 [facility] Comment on above: Performed By: #### C BC #### [facility] [address] [place] [address] Dr. Jason Pearson Erythrocyte distribution width (RBC) [Ratio] 14.0 % Normal 11.0-15.0 [facility] Comment on above: Performed By: #### C BC #### [facility] [address] [place] [address] Dr. Jason Pearson Hematocrit (Bld) [Volume fraction] 41.0 % Critically low 42.0-54.0 [facility] Comment on above: Performed By: #### C BC #### [facility] [address] [place] [address] Dr. Jason Pearson Hemoglobin (Bld) [Mass/Vol] 13.8 g/dL Critically low 14.0-18.0 [facility] Comment on above: Performed By: #### C BC #### [facility] [address] [place] [address] Dr. Jason Pearson IG # 0.01 10e3/ul Normal 0.00-0.03 [facility] Comment on above: Performed By: #### C BC #### [facility] [address] [place] [address] Dr. Jason Pearson IG % 0.2 % Normal 0.0-0.5 [facility] Comment on above: Performed By: #### C BC #### [facility] [address] [address] [address] Jason Pearson LYMPH # 1.3 103/ul Normal 1.2-3.8 [facility] Comment on above: Performed By: #### C BC #### [facility] [address] [address] [address] Jason Pearson Lymphocytes/100 WBC (Bld) 22.3 % Normal 20.5-60.0 [facility] Comment on above: Performed By: #### C BC #### [facility] [address] [place] [address] Dr. Jason Pearson MANUAL DIFF REQ NO Normal [facility] Comment on above: Performed By: #### C BC #### [facility] [address] [place] [address] Dr. Jason Pearson MCH (RBC) [Entitic mass] 32.6 pg Normal 25.9-34.0 [facility] Comment on above: Performed By: #### C BC #### [facility] [address] [place] [address] Dr. Jason Pearson MCHC (RBC) [Mass/Vol] 33.7 g/dL Normal 29.9-35.2 [facility] Comment on above: Performed By: #### C BC #### [facility] [address] [place] [address] Dr. Jason Pearson MCV (RBC) [Entitic vol] 96.9 fL Critically high 80.0-94.0 [facility] Comment on above: Performed By: #### C BC #### [facility] [address] [place] [address] Dr. Jason Pearson MONO # 0.6 103/ul Normal 0.3-0.8 [facility] Comment on above: Performed By: #### C BC #### [facility] [address] [place] [address] Dr. Jason Pearson Monocytes/100 WBC (Bld) 10.5 % Normal 1.7-12.0 [facility] Comment on above: Performed By: #### C BC #### [facility] [address] [address] [address] Jason Pearson NEUT # 3.7 103/ul Normal 1.4-6.5 [facility] Comment on above: Performed By: #### C BC #### [facility] [id number] Jason Pearson Neutrophils/100 WBC (Bld) 62.6 % Normal 43.0-75.0 [facility] Comment on above: Performed By: #### C BC #### [facility] [address] [address] [address] Jason Pearson Platelet mean volume (Bld) [Entitic vol] 9.9 fL Normal 9.5-13.5 [facility] Comment on above: Performed By: #### C BC #### [facility] [address] [address] [address] Jasno Pearson PLT 181 103/ul Normal 150-450 [facility] Comment on above: Performed By: #### C BC #### [facility] [address] [address] [address] Jason Pearson RBC 4.23 106/ul Critically low 4.70-6.10 [facility] Comment on above: Performed By: #### C BC #### [facility] [id number] Jason Pearson WBC 5.9 103/ul Normal 4.0-11.0 [facility] Comment on above: Performed By: #### C BC #### [facility] [id number] Jason Pearson LIPID PROFILEon 2022 CHOL-HDL RATIO NORM SEE BELOW Normal [facility] Comment on above: Result Comment: 3.3 - 4.4 LOW RISK 4.4 - 7.1 AVERAGE RISK 7.1 - 11.0 MODERATE RISK >11.0 HIGH RISK Performed By: #### C MP, LIPID ####[facility] [address] [place], [place] [address]HtDr. Jason Pearson Cholesterol [Mass/Vol] 163 mg/dL Normal <=200 [facility] Comment on above: Performed By: #### C MP, LIPID ####[facility] [address] [id number] Jason Pearson Cholesterol in HDL [Mass/Vol] 49 mg/dL Normal 40-60 [facility] Comment on above: Performed By: #### C MP, LIPID ####[facility] [address] [address]Dr. Jason Pearson Cholesterol in LDL [Mass/Vol] 74.6 mg/dL Normal [facility] Comment on above: Performed By: #### C MP, LIPID ####[facility] [address] [id number]. Jason Pearson Cholesterol.total/C holesterol in HDL [Mass ratio] 3.3 {ratio} Normal [facility] Comment on above: Performed By: #### C MP, LIPID ####[facility] [address] [id number]. Jason Pearson HDL NORMAL > or = 60 mg/dl - LO W CARDIOVASCULAR RISK <40 mg/dl - HIGH CARDIOVASCULAR RISK Normal [facility] Comment on above: Performed By: #### C MP, LIPID ####[facility] [address] [address]Dr. Jason Pearson LDL CALC NORMAL SEE BELOW Normal [facility] Comment on above: Result Comment: <100 mg/dl OPTIMAL 100 - 129 mg/dl NEAR OR ABOVE OPTIMAL 130 - 159 mg/dl BORDERLINE HIGH 160 - 189 mg/dl HIGH >190 mg/dl VERY HIGH Performed By: #### C MP, LIPID ####[facility] [address] [id number]. Jason Pearson Triglyceride [Mass/Vol] 197 mg/dL Critically high <=150 [facility] Comment on above: Performed By: #### C MP, LIPID ####[facility] [address] [address]Dr. Jason Pearson VLDL CALC 39.4 mg/dL Normal [facility] Comment on above: Performed By: #### C MP, LIPID ####[facility] [address] [id number]. Jason Pearson MICROALBUMIN, RAND URon 03-0 mALB 1.3 mg/L Normal <=30.0 [facility] Comment on above: Performed By: #### M ALBR ####[facility] [address] [address]Dr. Jason Pearson PROF 14(COMP METB)on 023 Albumin [Mass/Vol] 3.7 g/dL Normal 3.4-5.0 [facility] Comment on above: Performed By: #### C MP, LIPID #### [facility] [address] [address] [address] Jason Pearson Albumin/Globulin [Mass ratio] 1.0 {ratio} Normal [facility] Comment on above: Performed By: #### C MP, LIPID #### [facility] [address] [address] [address] Jason Pearson ALP [Catalytic activity/Vol] 56 U/L Normal 46-116 [facility] Comment on above: Performed By: #### C MP, LIPID #### [facility] [address] [address] [address] Jason Pearson ALT [Catalytic activity/Vol] 43 U/L Normal 16-63 [facility] Comment on above: Performed By: #### C MP, LIPID #### [facility] [address] [address] [address] Jason Pearson Anion gap [Moles/Vol] 11.2 mmol/L Normal [facility] Comment on above: Performed By: #### C MP, LIPID #### [facility] [address] [address] [address] Jason Pearson AST [Catalytic activity/Vol] 24 U/L Normal 15-37 [facility] Comment on above: Performed By: #### C MP, LIPID #### [facility] [address] [address] [address] Jason Pearson Bilirubin [Mass/Vol] 0.9 mg/dL Normal 0.2-1.0 [facility] Comment on above: Performed By: #### C MP, LIPID #### [facility] [address] [address] [address] Jason Pearson Calcium [Mass/Vol] 9.6 mg/dL Normal 8.5-10.1 [facility] Comment on above: Performed By: #### C MP, LIPID #### [facility] [address] [address] [address] Jason Pearson Chloride [Moles/Vol] 106 mmol/L Normal 98-107 [facility] Comment on above: Performed By: #### C MP, LIPID #### [facility] [address] [place] [address] Dr. Jason Pearson CO2 [Moles/Vol] 30.1 mmol/L Normal 21.0-32.0 [facility] Comment on above: Performed By: #### C MP, LIPID #### [facility] [address] [place] [address] Dr. Jason Pearson Creatinine [Mass/Vol] 1.00 mg/dL Normal 0.70-1.30 [facility] Comment on above: Performed By: #### C MP, LIPID #### [facility] [address] [place] [address] Dr. Jason Pearson EGFR-AF MEXICAN >60 Normal >=60 [facility] Comment on above: Performed By: #### C MP, LIPID #### [facility] [address] [place] [address] Dr. Jason Pearson EGFR-NON AF MEXICAN >60 Normal >=60 [facility] Comment on above: Performed By: #### C MP, LIPID #### [facility] [address] [place] [address] Dr. Jason Pearson Globulin (S) [Mass/Vol] 3.6 g/dL [facility] Comment on above: Performed By: #### C MP, LIPID #### [facility] [address] [place] [address] Dr. Jason Pearson Glucose [Mass/Vol] 110 mg/dL Critically high 74-106 [facility] Comment on above: Performed By: #### C MP, LIPID #### [facility] [address] [place] [address] Dr. Jason Pearson Potassium [Moles/Vol] 4.3 mmol/L Normal 3.5-5.1 [facility] Comment on above: Performed By: #### C MP, LIPID #### [facility] [address] [address] [address] Jason Pearson Protein [Mass/Vol] 7.3 g/dL Normal 6.4-8.2 [facility] Comment on above: Performed By: #### C MP, LIPID #### [facility] [address] [address] [address] Jason Pearson Sodium [Moles/Vol] 143 mmol/L Normal 136-145 [facility] Comment on above: Performed By: #### C MP, LIPID #### [facility] [address] [address] [address] Jason Pearson Urea nitrogen [Mass/Vol] 15.0 mg/dL Normal 7.0-18.0 [facility] Comment on above: Performed By: #### C MP, LIPID #### [facility] [address] [address] [address] Jason Pearson Urea nitrogen/Creatinine [Mass ratio] 15.0 mg/mg [facility] Comment on above: Performed By: #### C MP, LIPID #### [facility] [address] [address] [address] Jason Pearson PROTIMEon 06-28-2022 INR Coag (PPP) [Relative time] 1.11 {INR} Normal [facility] Comment on above: Performed By: #### P T ####[facility] [id number] [address]Dr. Jason Pearson INR GUIDELINES SEE BELOW Normal [facility] Comment on above: Result Comment: KOFI RED INR: 2.0 - 3.0 CONDITIONS NOT LISTED BELOW 2.5 - 3.5 FOR PROSTHETIC HEART VALVE REPLACEMENT 2.5 - 3.5 RECURRENT THROMBOSIS Performed By: #### P T ####[facility] [id number] [address]Dr. Jason Pearson PT Coag (PPP) [Time] 11.9 s Critically high 9.0-11.6 [facility] Comment on above: Performed By: #### P T ####[facility] [address] [address]Dr. Jason Pearson PROTIMEon 03-22-2022 INR Coag (PPP) [Relative time] 1.32 {INR} Normal [facility] Comment on above: Performed By: #### P T #### [facility] [address] [place] [address] Dr. Jason Pearson INR GUIDELINES SEE BELOW Normal [facility] Comment on above: Result Comment: KOFI RED INR: 2.0 - 3.0 CONDITIONS NOT LISTED BELOW 2.5 - 3.5 FOR PROSTHETIC HEART VALVE REPLACEMENT 2.5 - 3.5 RECURRENT THROMBOSIS Performed By: #### P T #### [facility] [address] [place] [address] Dr. Jason Pearson PT Coag (PPP) [Time] 14.0 s Critically high 9.0-11.6 [facility] Comment on above: Performed By: #### P T #### [facility] [address] [place] [address] Dr. Jason Pearson PROTIMEon 02-07-2022 INR Coag (PPP) [Relative time] 1.08 {INR} [facility] Comment on above: Performed By: #### P T #### [facility] [address] [place] [address] Dr. Jason Pearson INR GUIDELINES SEE BELOW Normal [facility] Comment on above: Result Comment: KOFI RED INR: 2.0 - 3.0 CONDITIONS NOT LISTED BELOW 2.5 - 3.5 FOR PROSTHETIC HEART VALVE REPLACEMENT 2.5 - 3.5 RECURRENT THROMBOSIS Performed By: #### P T #### [facility] [address] [place] [address] Dr. Jason Pearson PT Coag (PPP) [Time] 11.6 s Normal 9.0-11.6 [facility] Comment on above: Performed By: #### P T #### [facility] [address] [place] [address] Dr. Jason Pearson XR HIP RT INJon [...] remained the same pre and post injection (10). COMPLICATIONS: None. OTHER: Negative. IMPRESSION: 1. Technically successful right hip injection without any immediate pain relief. Clinical follow-up recommended. Electronically authenticated by: RUPERT MOON Date: 2022-02-07 11:09 Normal [facility] Initial Visit (Gastroenterol ogy)on 03-28-2018 Initial [...] from the patient and documented on the [facility] health history questionnaire. Pertinent positives [...] MG Oral Tablet; TAKE 1 TABLET DAILY;Therapy: (Recorded:[id number]) to Recorded Dispense: 0 Days ; #: Sufficient Tablet; Refill: 0; KP = N; Record; Last Updated By: Toyin Angeles; 03/28/2018 9:14:26 AM Flecainide Acetate 100 MG Oral Tablet; TAKE 1 TABLET EVERY 12 HOURS DAILY;Therapy: (Recorded:[id number]) to Recorded Dispense: 0 Days ; #: Sufficient Tablet; Refill: 0; KP = N; Record; Last Updated By: Toyin Angeles; 03/28/2018 9:14:26 AM HydroCHLOROthiazide 25 MG Oral Tablet; TAKE 1 TABLET DAILY;Therapy: (Recorded:[id number]) to Recorded Dispense: 0 Days ; #: Sufficient Tablet; Refill: 0; KP = N; Record; Last Updated By: Toyin Angeles; 03/28/2018 9:14:26 AM Imodium A-D CAPS;Therapy: (Recorded:[id number]) to Recorded Dispense: 0 Days ; #: Sufficient CAPS; Refill: 0; KP = N; Record; Last Updated By: Toyin Angeles; 03/28/2018 9:14:26 AM Klor-Con M20 20 MEQ Oral Tablet Extended Release; TAKE 2 TABLETS TWICE DAILY;Therapy: (Recorded:[id number]) to Recorded Dispense: 0 Days ; #: Sufficient Tablet Extended Release; Refill: 0; KP = N; Record; Last Updated By: Toyin Angeles; 03/28/2018 9:14:26 AM Lisinopril 40 MG Oral Tablet; TAKE 1 TABLET DAILY;Therapy: (Recorded:[id number]) to Recorded Dispense: 0 Days ; #: Sufficient Tablet; Refill: 0; KP = N; Record; Last Updated By: Toyin Angeles; 03/28/2018 9:14:26 AM Loratadine 10 MG Oral Tablet; TAKE 1 TABLET DAILY;Therapy: (Recorded:[id number]) to Recorded Dispense: 0 Days ; #: Sufficient Tablet; Refill: 0; KP = N; Record; Last Updated By: Toyin Angeles; 03/28/2018 9:14:26 AM Metoprolol Tartrate 100 MG Oral Tablet; TAKE 1 TABLET DAILY;Therapy: (Recorded:[id number]) to Recorded Dispense: 0 Days ; #: Sufficient Tablet; Refill: 0; KP = N; Record; Last Updated By: Toyin Angeles; 03/28/2018 9:14:26 AM Multivitamins TABS;Therapy: (Recorded:[id number]) to Recorded Dispense: 0 Days ; #: Sufficient TABS; Refill: 0; KP = N; Record; Last Updated By: Toyin Angeles; 03/28/2018 9:14:26 AM Tamsulosin HCl - 0.4 MG Oral Capsule;Therapy: (Recorded:86Ozo6641) to Recorded Dispense: 0 Days ; #: Sufficient Capsule; Refill: 0; KP = N; Record; Last Updated By: Toyin Angeles; 03/28/2018 9:14:26 AM Vitamin B-12 ER 1500 MCG Oral Tablet Extended Release;Therapy: (Recorded:[id number]) to Recorded Dispense: 0 Days ; #: Sufficient TBCR; Refill: 0; KP = N; Record; Last Updated By: Toyin Angeles; 03/28/2018 9:14:26 AM Vitamin D3 2000 UNIT Oral Tablet;Therapy: (Recorded:[id number]) to Recorded Dispense: 0 Days ; #: Sufficient Tablet; Refill: 0; KP = N; Record; Last Updated By: Toyin Angeles; 03/28/2018 9:14:26 AM Warfarin Sodium 5 MG Oral Tablet; TAKE 1 TABLET DAILY;Therapy: (Recorded:[id number]) to Recorded Dispense: 0 Days ; #: Sufficient Tablet; Refill: 0; KP = N; Record; Last Updated By: Toyin Angeles; 03/28/2018 9:14:26 AM Vitals Vital Signs Recorded: 28Mar2018 09:12AMHeart Auyr26Gkeojblyxdb28Xkmoldkr99 5Jcciqvagu34Cdmmov7 ft 2 qjXsmsiz485 lb 6 ozBMI Cksulsfihz00.52BSA Calculated2.67 Physical ExamConstitutional General appearance: In no [...] diarrhea; KP = N; Verified Transmission to [id number]; Last Updated By: NovoED; 03/28/2018 9:44:38 AM Provider ImpressionsSubmucosal duodenal lesion [...] MG Oral Tablet; TAKE 1 TABLET DAILY;Therapy: (Recorded:05Vrx7852) to RecordedCholestyramine Light 4 GM Oral Packet; MIX THE CONTENTS OF 1 POWDER PACKETWITH 2-6 OZ OF NONCARBONATED BEVERAGE AND SWALLOW ONCE DAILY;Therapy: 85Agh2106 to (Evaluate:27Rhe5988) Requested for: [id number]; LastRx:[id number] OrderedFlecainide Acetate 100 MG Oral Tablet; TAKE 1 TABLET EVERY 12 HOURS DAILY;Therapy: (Recorded:64Spw3811) to RecordedHydroCHLOROthiazide 25 MG Oral Tablet; TAKE 1 TABLET DAILY;Therapy: (Recorded:[id number]) to RecordedImodium A-D CAPS (Loperamide HCl);Therapy: (Recorded:06Szb3036) to RecordedKlor-Con M20 20 MEQ Oral Tablet Extended Release; TAKE 2 TABLETS TWICE DAILY;Therapy: (Recorded:[id number]) to RecordedLisinopril 40 MG Oral Tablet; TAKE 1 TABLET DAILY;Therapy: (Recorded:[id number]) to RecordedLoratadine 10 MG Oral Tablet; TAKE 1 TABLET DAILY;Therapy: (Recorded:[id number]) to RecordedMetoprolol Tartrate 100 MG Oral Tablet; TAKE 1 TABLET DAILY;Therapy: (Recorded:[id number]) to RecordedMultivitamins TABS;Therapy: (Recorded:[id number]) to RecordedTamsulosin HCl - 0.4 MG Oral Capsule;Therapy: (Recorded:17Puh7928) to RecordedVitamin B-12 ER 1500 MCG Oral Tablet Extended Release;Therapy: (Recorded:[id number]) to RecordedVitamin D3 2000 UNIT Oral Tablet;Therapy: (Recorded:97Zyg7233) to RecordedWarfarin Sodium 5 MG Oral Tablet; TAKE 1 TABLET DAILY;Therapy: (Recorded:[id number]) to Recorded Signatures Electronically signed by : Devin Greer DO; Mar 28 2018 9:51AM EST (Author) [facility] Vital Signs Date Time Vital Sign Value Performing Clinician Facility 01-23-2024 14:11-0400 Blood Pressure Location CATHIE MONTIEL [facility] 01-23-2024 14:11-0400 Body temperature 97.88 [degF] CATHIE MONTIEL [facility] 01-23-2024 14:11-0400 Diastolic blood pressure 74 mm[Hg] CATHIE MONTIEL [facility] 01-23-2024 14:11-0400 Heart rate 67 /min CATHIE MONTIEL [facility] 01-23-2024 14:11-0400 Respiratory rate 16 /min CATHIE MONTIEL [facility] 01-23-2024 14:11-0400 Systolic blood pressure 138 mm[Hg] CATHIE MONTIEL [facility] 10-19-2023 10:19-0400 Body height 187.96 cm [facility] 10-19-2023 10:19-0400 Body mass index (BMI) [Ratio] 40.1 kg/m2 [facility] 10-19-2023 10:19-0400 Body weight 141.63 kg [facility] 10-19-2023 10:19-0400 Diastolic blood pressure 84 mm[Hg] [facility] 10-19-2023 10:19-0400 Heart rate 71 /min [facility] 10-19-2023 10:19-0400 SaO2% (BldA) [Mass fraction] 98 % [facility] 10-19-2023 10:19-0400 Systolic blood pressure 132 mm[Hg] [facility] 07-13-2023 15:30-0500 Body height 187.96 cm Donald Lizarraga Other [facility] Other 07-13-2023 15:30-0500 Body mass index (BMI) [Ratio] 40.18 kg/m2 Donald Lizarraga Other [facility] Other 07-13-2023 15:30-0500 Body weight 141.98 kg Donald Lizarraga Other [facility] Other 07-13-2023 15:30-0500 Diastolic blood pressure 86 mm[Hg] Donald Lizarraga Other [facility] Other 07-13-2023 15:30-0500 Systolic blood pressure 142 mm[Hg] Donald Lizarraga Other [facility] Other 01-24-2023 10:00-0400 Blood Pressure Location CATHIE TIANA [facility] 01-24-2023 10:00-0400 Diastolic blood pressure 80 mm[Hg] CATHIE TIANA [facility] 01-24-2023 10:00-0400 Heart rate 72 /min CATHIE TIANA [facility] 01-24-2023 10:00-0400 Respiratory rate 16 /min CATHIE TIANA [facility] 01-24-2023 10:00-0400 Systolic blood pressure 130 mm[Hg] CATHIE TIANA [facility] 10-06-2022 10:17-0400 Diastolic blood pressure 78 mm[Hg] Daigle SALAM [facility] 10-06-2022 10:17-0400 Heart rate 69 /min Daigle SALAM [facility] 10-06-2022 10:17-0400 Respiratory rate 16 /min Daigle SALAM [facility] 10-06-2022 10:17-0400 SaO2% (BldA) [Mass fraction] 99 % Daigle SALAM [facility] 10-06-2022 10:17-0400 Systolic blood pressure 122 mm[Hg] Daigle SALAM [facility] 10-06-2022 10:05-0400 Diastolic blood pressure 76 mm[Hg] Daigle SALAM [facility] 10-06-2022 10:05-0400 Heart rate 67 /min Daigle SALAM [facility] 10-06-2022 10:05-0400 Respiratory rate 18 /min Daigle SALAM [facility] 10-06-2022 10:05-0400 SaO2% (BldA) [Mass fraction] 99 % Daigle SALAM [facility] 10-06-2022 10:05-0400 Systolic blood pressure 135 mm[Hg] Daigle SALAM [facility] 10-06-2022 10:00-0400 Diastolic blood pressure 70 mm[Hg] Daigle SALAM [facility] 10-06-2022 10:00-0400 Heart rate 66 /min Daigle SALAM [facility] 10-06-2022 10:00-0400 Systolic blood pressure 134 mm[Hg] Daigle SALAM [facility] 10-06-2022 09:55-0400 Respiratory rate 16 /min Daigle SALAM [facility] 10-06-2022 09:52-0400 Body temperature 97.7 [degF] Daigle SALAM [facility] 10-06-2022 09:40-0400 Respiratory rate 1 /min Daigle SALAM [facility] 10-06-2022 08:21-0400 Blood Pressure Location Daigle SALAM [facility] 10-06-2022 08:21-0400 Body temperature 97.88 [degF] Daigle SALAM [facility] 07-29-2022 14:15-0500 Diastolic blood pressure 88 mm[Hg] Elicia Garciametz [facility] 07-29-2022 14:15-0500 Mean blood pressure 105 mm[Hg] Elicia Garciametz [facility] 07-29-2022 14:15-0500 Systolic blood pressure 138 mm[Hg] Elicia Garciametz [facility] 07-29-2022 14:11-0500 Blood Pressure Location Eliciagurwinder GarciaHipolito [facility] 07-29-2022 14:11-0500 Body temperature 97.88 [degF] Elicia Garciametz [facility] 07-29-2022 14:11-0500 Diastolic blood pressure 87 mm[Hg] Elicia Garciametz [facility] 07-29-2022 14:11-0500 Heart rate 77 /min Elicia Mcmillan [facility] 07-29-2022 14:11-0500 Systolic blood pressure 147 mm[Hg] Elicia Garciametz [facility] 07-26-2022 10:45-0500 Body height 187.96 cm Donald Lizarraga Other [facility] Other 07-26-2022 10:45-0500 Body mass index (BMI) [Ratio] 41.47 kg/m2 Donald Lizarraga Other [facility] Other 07-26-2022 10:45-0500 Body weight 146.51 kg Donald Lizarraga Other [facility] Other 07-26-2022 10:45-0500 Diastolic blood pressure 84 mm[Hg] Donald Lizarraga Other [facility] Other 07-26-2022 10:45-0500 SaO2% (BldA) [Mass fraction] 97 % Donald Lizarraga Other [facility] Other 07-26-2022 10:45-0500 Systolic blood pressure 142 mm[Hg] Donald Lizarraga Other [facility] Other 10-27-2021 12:02-0400 Blood Pressure Location CATHIE AZEVEDORY [facility] 10-27-2021 12:02-0400 Diastolic blood pressure 78 mm[Hg] CATHIE TIANA [facility] 10-27-2021 12:02-0400 Heart rate 77 /min CATHIE TIANA [facility] 10-27-2021 12:02-0400 Systolic blood pressure 141 mm[Hg] CATHIE AZEVEDORY [facility] Encounters Encounter Date Encounter Type Care Provider Facility Start: 04-15-2024 End: 04-15-2024 Office outpatient visit 25 minutes [facility]h [facility] Comment on above: PAF (paroxysmal atri al fibrillation) (HCC) (Primary Dx) Start: 04-15-2024 End: 04-15-2024 ambulatory PRASANTH PEREZ Facility:[facility] Start: 01-23-2024 End: 01-23-2024 ambulatory CATHIE MONTIEL Facility: [facility] Start: 01-23-2024 End: 01-23-2024 Patient encounter procedure CATHIE MONTIEL [facility] Start: 12-27-2023 End: 12-28-2023 Patient encounter status Emperatriz Karim DO Work Phone: [facility] Start: 12-27-2023 End: 12-28-2023 Refill Emperatrizquique Reynoldsim DO Work Phone: [facility] Comment on above: Refill Start: 10-19-2023 End: 10-19-2023 ambulatory [facility] Work Phone: Start: 10-19-2023 End: 10-19-2023 Patient encounter procedure [facility] Work Phone: Start: 09-07-2023 Non-patient / Non-visit [facility] Physician [facility] Work Phone: Start: 07-20-2023 End: 07-20-2023 ambulatory Donald Lizarraga Other [facility] Other Start: 07-20-2023 Telephone encounter Donald Lizarraga [facility] Start: 07-13-2023 End: 07-13-2023 ambulatory Donald Lizarraga Other [facility] Other Start: 07-13-2023 Office outpatient vi sit 15 minutes Donald Lizarraga [facility] Start: 04-04-2023 Patient encounter status Emperatrizquique Reynoldsim DO Work Phone: [facility] Start: 04-04-2023 Refill Emperatriz Karim DO Work Phone: [facility] Comment on above: Refill Start: 03-29-2023 End: 03-29-2023 Office outpatient visit 15 minutes Emperatriz Karim DO Work Phone: [facility] Comment on above: Persistent atrial fi brillation (HCC) (Primary Dx); Anticoagulated; JAVED on CPAP Start: 03-28-2023 End: 03-28-2023 ambulatory Donald Lizarraga Other [facility] Other Start: 03-28-2023 Telephone encounter Donald Lizarraga [facility] Start: 03-18-2023 Letter encounter Emperatriz Villafana O Work Phone: [facility] Start: 02-16-2023 Telephone encounter Emperatriz velarde DO Work Phone: [facility] Comment on above: Question about medic ation Refill Start: 02-14-2023 Patient encounter status Emperatriz Carnes DO Work Phone: [facility] Start: 02-14-2023 Refill Emperatriz Carnes DO Work Phone: [facility] Comment on above: Refill Start: 01-24-2023 End: 01-24-2023 Lab Drop off CATHIE MONTIEL [facility] Start: 01-24-2023 End: 01-24-2023 Patient encounter procedure CATHIE MONTIEL [facility] Start: 11-10-2022 End: 11-11-2022 ambulatory JEET HERNÁNDEZ . Facility:[facility] Start: 11-07-2022 End: 12-07-[address] DONALD LIZARRAGA Facility:[facility] Start: 10-13-2022 ambulatory NARENDRANATH LAKSHMIPATHY . Facility:[facility] Start: 10-11-2022 (Televisit) Televisit Donald Lizarraga [facility] Start: 10-11-2022 End: 10-11-2022 ambulatory Donald Lizarraga Other [facility] Other Start: 10-10-2022 End: 11-04-2022 ambulatory SHAIKH Gurwinder FARMER Facility:[facility] Start: 10-06-2022 End: 10-06-2022 Patient encounter procedure Oxana IBARRA [facility] Start: 2022 Telephone encounter Donald Lizarraga [facility] Start: 2022 End: 09-09-[address] DONALD LIZARRAGA [facility] Other Start: 09-07-2022 End: 10-07-2022 ambulatory SHAIKH Gurwinder FARMER Facility:[facility] Start: 08-10-2022 End: 09-07-2022 ambulatory SHAIKH Gurwinder FARMER Facility:[facility] Start: 07-29-2022 End: 07-29-2022 Patient encounter procedure Elicia Mcmillan [facility] Start: 07-26-2022 End: 07-26-2022 ambulatory Donald Lizarraga Other [facility] Other Start: 07-26-2022 Office outpatient vi sit 15 minutes Donald Lizarraga [facility] Start: 07-20-2022 End: 07-21-[address] [...] encounter status Emperatriz Karim DO Work Phone: [facility] Start: 02-27-2022 Refill Emperatriz Karim DO Work Phone: [facility] Comment on above: Refill Start: 02-07-2022 End: 02-07-[address] DONALD LIZARRAGA Facility:[facility] Start: 02-07-2022 End: 03-09-[address] DONALD LIZARRAGA Facility:[facility] Start: 01-15-2022 Refill Emperatriz Karim DO Work Phone: [facility] Comment on above: Refill Start: 01-07-2022 End: 02-04-[address] DONALD LIZARRAGA Facility:[facility] Start: 11-24-2021 Patient encounter status Emperatriz Karim DO Work Phone: [facility] Start: 11-24-2021 Refill Emperatriz Karim DO Work Phone: [facility] Comment on above: Refill Start: 11-24-2021 Refill Emperatriz Karim DO Work Phone: [facility] Comment on above: Refill Start: 10-27-2021 End: 10-27-2021 Patient encounter procedure CATHIE MONTIEL [facility] Start: 03-28-2018 Patient encounter Devin Greer Fa cility[facility] Start: 04-24-2017 End: 04-25-2017 Ambulatory DEFAULT PHYSICIAN Facility:[facility] Start: 03-03-2017 End: 03-04-2017 Ambulatory DEFAULT PHYSICIAN Facility:[facility] Procedures Date Procedure Procedure Detail Performing Clinician Start: 10-06-2022 Colonoscopy Oxana IBARRA Start: [address] JADEN VILLA . Comment on above: Performed By: #### PSASC #### [facility] [address] [address] [address] Jason Pearson Start: 04-23-2020 Transurethral prostatectomy CATHIEHUNTER [place] Start: 07-19-2018 Transrectal biopsy of prostate using ultrasound guidance CATHIE MONTIEL Start: 12-21-2017 Esophagogastroduodenoscopy Elicia marrero Start: 08-28-2017 Screening for malignant neoplasm of colon Donald Lizarraga Other Start: 08-26-2016 Screening for malignant neoplasm of prostate Donald Lizarraga Other Start: 04-18-2014 Removal of suture Donald Lizarraga Other Start: 02-13-2014 General examination of patient Donald katz Other Colonoscopy CATHIE MONTIEL Excision of cyst CATHIE PRIETO Local anesthetic ner ve block in lower limb CATHIE MONTIEL Screening for malign ant neoplasm of colon Donald Lizarraga Other Screening for malign ant neoplasm of prostate Donald Lizarraga Other [facility] care CATHIE ESPARZASierra Plan of Treatment Date Care Activity Detail Author Start: 09-09-2027 Lipid panel Cholesterol [facility] Start: 03-10-2024 COVID-19 Vaccine ( season) COVID-19 Vaccine ( season) [facility] Start: 03-10-2024 Influenza vaccination Influenza Vaccine (#1) [facility] Start: 04-09-2023 Influenza vaccination Influenza Vaccine (#1) [facility] Start: 03-29-2023 End: 03-29-2023 Telemedicine consultation with patient 03/29/2023 4:20 PM EDT Telemedicine [facility] [address] [facility] [place] [address] Emperatriz Carnes DO [address] [facility] [address] [id number] [facility] Start: 03-10-2023 COVID-19 Vaccine () COVID-19 Vaccine ( season) [facility] Start: 03-10-2023 [...] A (HAV) Vaccine (optional start 19+ years) [facility] Start: [birth year]-09-1971 Hepatitis C screening [facility] Start: 09-09-1971 Tetanus + diphtheria + acellular pertussis vaccine (product) [employer] [facility] Start: 1955 COVID-19 Vaccine ( formulation) COVID-19 Vaccine ( formulation) [facility] Start: 1955 Screening for malignant neoplasm of colon Colonoscopy [facility] Immunizations Immunization Date Immunization Notes Care Provider [facility] 05-24-2023 Pneumococcal conjuga te 20 valent (PCV20), polysaccharide TCY600 conjugate, adjuvant, PF (PYN=535) [employer] Work Phone: [facility] 05-10-2023 influenza virus vaccine, unspecified formulation CATHIE MONTIEL [facility] 05-10-2023 Influenza, seasonal vaccine, quadrivalent, adjuvanted, 0.5mL dose, preservative free (RTX=[id number]) [employer] Work Phone: [facility] 05-24-2022 influenza virus vaccine, unspecified formulation Elicia Mcmillan [facility] 05-24-2022 Influenza, seasonal vaccine, quadrivalent, adjuvanted, 0.5mL dose, preservative free (FIJ=642) [employer] Work Phone: [facility] 12-16-2021 Pfizer Monovalent (1 2+ yrs) SARS-COV-2 (COVID-19) vaccine, mRNA, spike protein, LNP, pres. free, 30 mcg/0.3mL dose, art-sucrose (ZVR=503) [employer] Work Phone: [facility] 12-16-2021 SARS-CoV-2 mRNA (lazccoqxvqf-esaw-mmiuu se) vaccine Elicia Mcmillan [facility] 08-18-2021 pneumococcal conjuga te vaccine, 13 valent Emperatrizquique Carnes DO Work Phone: [facility] 06-09-2021 SARS-CoV-2 (COVID-19 ) mRNA BNT-162b2 vax Elicia Mcmillan [facility] 05-26-2021 SARS-CoV-2 (COVID-19 ) Ad26 vaccine, recombinant CATHIE TIANA [facility] 05-21-2021 Influenza, seasonal vaccine, quadrivalent, adjuvanted, 0.5mL dose, preservative free (EHK=980) Emperatriz Karim DO Work Phone: [facility] 05-21-2021 influenza virus vaccine, unspecified formulation Emperatriz Karim DO Work Phone: [facility] 04-28-2021 influenza virus vaccine, unspecified formulation CATHIE TIANA [facility] 04-28-2021 SARS-CoV-2 (COVID-19 ) Ad26 vaccine, recombinant CATHIE TIANA [facility] 09-26-2020 Pfizer SARS-COV-2 (COVID-19) vaccine, age 12+ yrs, mRNA, spike protein, LNP, preservative free, 30 mcg/0.3mL dose (LLI=407) Emperatriz Karim DO Work Phone: [facility] Comment on above: Result Comment: 2022: [id number] 09-05-2020 Pfizer SARS-COV-2 (COVID-19) vaccine, age 12+ yrs, mRNA, spike protein, LNP, preservative free, 30 mcg/0.3mL dose (BEU=414) Emperatriz Karim DO Work Phone: [facility] Comment on above: Result Comment: 2022: [id number] 05-10-2020 influenza virus vaccine, unspecified formulation CATHIE MONTIEL [facility] 05-05-2020 influenza virus vaccine, unspecified formulation Elicia Mcmillan [facility] 05-05-2020 Influenza, seasonal vaccine, quadrivalent, adjuvanted, 0.5mL dose, preservative free (GCS=087) Emperatriz Karim DO Work Phone: [facility] 04-29-2019 influenza virus vaccine, unspecified formulation Elicia Mcmillan [facility] 04-29-2019 influenza, high dose seasonal, preservative-free Emperatriz Karim DO Work Phone: [facility] 04-26-2018 influenza virus vaccine, unspecified formulation Elicia Mcmillan [facility] 04-26-2018 Influenza, injectabl e, Madin Courtney Canine Kidney, preservative free, quadrivalent Emperatriz Karim DO Work Phone: [facility] 04-19-2016 influenza virus vaccine, split virus (incl. purified surface antigen) Donald Lizarraga Other [facility] [employer] Other 04-19-2016 influenza virus vaccine, unspecified formulation [facility] 04-19-2016 pneumococcal polysaccharide vaccine, 23 valent Donald Lizarraga Other [facility] 06-23-2014 influenza virus vaccine, split virus (incl. purified surface antigen) Donald Lizarraga Other [facility] [employer] Other 06-23-2014 influenza virus vaccine, unspecified formulation [facility] 02-13-2014 diphtheria, tetanus toxoids and acellular pertussis vaccine, unspecified formulation Donald Lizarraga Other [facility] Payers Date Payer Category Payer Unknown 2018 Medicare MEDICARE MEDICAR E PART A & B [id number] 2018-Present [address] [place] [address] Medicare [id number] 1959 Medicare [id number] 2.16.840.1.063574.19 1959 Unknown [id number] 2.16.840.1.219272.19 1953 Unknown [id number] 2.16.840.1.894970.3.579.2.593 1953 Unknown [id number] 2.16.840.1.331168.3.579.2.593 1953 Unknown [id number] 2.16.840.1.017802.3.579.2.593 1953 Unknown [id number] 2.16.840.1.472722.3.579.2.593 1953 Unknown [id number] 2.16.840.1.791628.3.579.2.593 1953 Unknown [id number] 2.16.840.1.423766.3.579.2.593 1953 Unknown [id number] 2.16.840.1.070584.3.579.2.593 1953 Unknown [id number] 2.16.840.1.636851.3.579.2.593 1953 Unknown [id number] 2.16.840.1.479157.3.579.2.593 1953 Unknown [id number] 2.16.840.1.093801.3.579.2.593 1953 Unknown [id number] 2.16.840.1.751241.3.579.2.593 1953 Unknown [id number] 2.16.840.1.064911.3.579.2.593 1953 Unknown [id number] 2.16.840.1.779829.3.579.2.593 1953 Unknown [id number] 2.16.840.1.221041.3.579.2.593 1953 Unknown [id number] 2.16.840.1.673319.3.579.2.593 1953 Unknown [id number] 2.16.840.1.812276.3.579.2.593 1953 Unknown [id number] 2.16.840.1.121233.3.579.2.593 1953 Unknown [id number] 2.16.840.1.853177.3.579.2.593 1953 Unknown [id number] 2.16.840.1.955479.3.579.2.593 1953 Unknown [id number] 2.16.840.1.102733.3.579.2.593 1953 Unknown [id number] 2.16.840.1.518661.3.579.2.593 1953 Unknown [id number] 2.16.840.1.815676.3.579.2.593 1953 Unknown [id number] 2.16.840.1.307186.3.579.2.593 1953 Unknown [id number] 2.16.840.1.617830.3.579.2.727 1953 Unknown [id number] 2.16.840.1.347724.3.579.2.732 Unknown [id number] Unknown [employer] [id number] Social History Date Type Detail Facility Start: 12-28-2018 End: 09-03-2020 Tobacco smoking status Never smoked tobacco (finding) [facility] Tobacco smoking status Never [facility] Start: 03-27-2023 Sex Assigned At Male [facility] Start: 12-28-2018 Tobacco use and exposure Smokeless tobacco non-user [facility] Start: 12-28-2018 End: 03-27-2023 Alcohol intake Ex-drinker (finding) [facility] Start: 1955 Sex Assigned At Not on file [facility] Start: 1955 Sex Assigned At Male [facility] Start: 03-27-2023 History of Social function [facility] Within the last year , have you been afraid of your partner or ex-partner? No [facility] Do you belong to any clubs or organizations such as catholic groups, unions, fraternal or athletic groups, or school groups? Yes [...] 01-23-2024 Functional Status N/A [facility] 01-24-2023 Functional Status N/A [facility] 10-06-2022 Functional Status N/A [facility] 07-29-2022 Functional Status N/A [facility] Clinical Notes 11-24-2021 to 04-15-2024 Prasanth Perez MD - 04/15/2024 10:07 AM EDT Note Date & Type Note Facility 04-15-2024 History of Present illness Narrative EP video visit to establish care Mr. [...] with daily activities No recent hospitalization Records: 2017 Limited echocardiogram was done to assess left ventricular systolic function Since his last visit, he had lexiscan at [facility] on 09/2016 that showe no reversible [...] [facility] the risks [...] 180 Tablet 3 Sodium Sulfate-Mag Sulfate-KCl (Sutab) 8495-182-778 MG TABS Take by mouth. AMLODIPINE BESYLATE [...] declined Stress: No Stress Concern Present (03/27/2023) [facility] [place] [employer] - Occupational Stress Questionnaire Feeling of Stress : Not at all Social Connections: Moderately Integrated (03/27/2023) Social Connection and Isolation Panel [NHANES] Frequency of Communication with Friends and Family: More than three times a week Frequency of Social Gatherings with Friends and Family: Twice a week Attends Uats[employer] Services: Never Active Member of Clubs or Organizations: Yes Attends Club or Organization Meetings: More than 4 times per year Marital Status: Intimate Partner Violence: Not At Risk (03/27/2023) Humiliation, Afraid, Rape, and Kick questionnaire Fear of Current or Ex-Partner: No Emotionally Abused: No Physically Abused: No Sexually Abused: No No family history on file. documented in this encounter [facility] 01-23-2024 Hospital Discharge instructions Patient Education 01/23/2024 14:28:31 Erectile Dysfunction [...] Follow these instructions at home: Medicines Take uptd-uzk-mrnzjdh and prescription medicines only as told by [...] provider. Document Revised: 09/22/2021 Document Reviewed: 09/22/2021 [employer] Patient Education 2022 [employer]. Follow Up Care 01/24/2023 10:37:20 With:TIANA GARCIA, CATHIE Ruano, URL Address: [address] [place] [address] [phone] When: only if needed [facility] 01-23-2024 Note Patient Education Urology Erectile Dysfunction [...] these instructions at home: Medicines ? Take pgtb-tpk-jxtgshl and prescription medicines only as told by [...] or tobacco. These (more content not included)... [facility] 07-13-2023 Evaluation note Encounter Date Diagnosis Assessment Notes Jul, Obstructive sleep apnea (ICD-10 - G47.33) Clinical signs which suggest the need for pressure adjustment were reviewed. He is compliant and faithful w using the device. Jul, Unspecified atrial fibrillation (ICD-10 - I48.91) >15 min spent in discussion/d ecision making. 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 Last televisit- 08/2020- He had to ER on 05/22/20 when he had pain with a blood clot- needing to stop his coumadin for a short period of time. He felt like he has been in sinus rhythm on his self checks. He was on Fiiqcxaqgw989 mg BID and Lopressor 100 mg BID. Since patient last saw me, he had TURP done- no further hematuria or urgency. PSA has been stable. Colonoscopy was normal per patient. No melena etc. ALLERGIES: Allergies Allergen Reactions Other (Review Comments!) MEDICATIONS: Current Outpatient Medications Medication Sig Dispense Refill Sodium Sulfate-Mag Sulfate-KCl (Sutab) [id number] MG TABS Take by mouth. AMLODIPINE BESYLATE [...] refused Stress: No Stress Concern Present (03/27/2023) [employer] [place] [employer] - Occupational Stress Questionnaire Feeling of Stress : Not at all Social Connections: Moderately Integrated (03/27/2023) Social Connection and Isolation Panel [NHANES] Frequency of Communication with Friends and Family: More than three times a week Frequency of Social Gatherings with Friends and Family: Twice a week Attends [employer]ats[employer] Services: Never Active Member of Clubs or [...] Assessment/Plan: Persistent atrial fibrillation (HCC) (Primary Diagnosis) [953459] Anticoagulated [169877] JAVED on CPAP [722206] Patient doing well overall as far as [...] Electrophysiology 03/29/23 4:52 PM documented in this [id number] Telephone encounter Note* Telephone Encounter - Crystal Putnam RN - 02/17/2023 9:17 AM EDT LVM for pt that new generic Rx (Toprol XL) was sent over to [facility]. [id number] Miscellaneous Notes* Telephone Encounter - Crystal Putnam RN - 02/17/2023 9:17 AM EDT LVM for pt that new generic Rx (Toprol XL) was sent over to [facility]. * Telephone Encounter - Heather Renteria - 02/16/2023 9:38 AM EDT [facility] is calling wanting to know if they can dispense Metoprolol SUCC- ER 100 mg instead ofthe Toprol XL 100 mg, pt's insurance will only cover the generic brand. Please contact [employer] [phone] use Re:[phone]. Thank you documented in this [id number] Telephone encounter Note* Telephone Encounter - Aundrea Davis PharmD - 02/16/2023 3:00 PM EDT Patient called stating the original prescription that was sent had a KP for Toprol XL 100mg which is not covered. Please send over generic Metoprolol ER Succinate 100mg. Thank you! [id number] Miscellaneous Notes* Telephone Encounter - Aundrea Davis PharmD - 02/16/2023 3:00 PM EDT Patient called stating the original prescription that was sent had a KP for Toprol XL 100mg which is not covered. Please send over generic Metoprolol ER Succinate 100mg. Thank you! documented in this [id number] Telephone encounter Note* Telephone Encounter - Heather Renteria - 02/16/2023 9:38 AM EDT [facility] is calling wanting to know if they can dispense Metoprolol SUCC- ER 100 mg instead ofthe Toprol XL 100 mg, pt's insurance will only cover the generic brand. Please contact [phone] use Re:[phone]. Thank you [facility] [employer] Work Phone: 1(546) 964-948007-18-2023 Hospital Discharge instructions Patient Education 01/24/2023 10:34:12 [...] Follow these instructions at home: Medicines Take rftx-gmp-nfrthyw and prescription medicines only as told by [...] provider. Document Revised: 09/22/2021 Document Reviewed: 09/22/2021 [employer] Patient Education 2022 [employer]. Follow Up Care 10/27/2021 12:15:55 With:TIANA GARCIA, CATHIE Ruano, URL Address: [address] [place] [address] When:Within 1 Year(s) 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 [employer] Other 03-30-2023 Evaluation + Plan noteExtracted from: Title:CSCarley post op Author:Daljit Gooden MD Date:10/06/22 Plan Transfer/Discharge: Transfer/Discharge Discharge when meets criteria ( To home ). Extracted from: Title:KRISSY GA Author:Daljit Gooden MD Date:10/06/22 Plan [employer] Anesthesiologists (ASA) physical status classification: Class III. Anesthetic Preoperative Plan: Anesthesia General. Future Appointments Appointment Date:01/25/2023 10:00:00 AM Scheduled Provider:Erica Chua MD Location:[facility] Appointment Type:URO Office Visit [facility]23 Hospital Discharge instructions Patient Education 10/06/2022 10:00:07 Colonoscopy, Care After Surgery Salam (CUSTOM) Colonoscopy Care After Surgery Please read the instructions outlined below and refer to this sheet in the next few weeks. These discharge instructions provide you with general information on caring for [facility] Your doctor may also give you specific [...] 03/22/2005 Document Revised: 10/11/2018 Document Reviewed: 10/11/2018 [employer] Patient Education 2020 [employer]. 10/06/2022 10:00:07 Hemorrhoids, Iqsn-xz-Kmkn Hemorrhoids Hemorrhoids are swollen veins that may [...] 3 times a day. General instructions Take jpoz-csn-rejpfcq and prescription medicines only as told by [...] 04/04/2009 Document Revised: 07/04/2019 Document Reviewed: 11/15/2018 [employer] Patient Education 2020 [employer]. Follow Up Care 07/29/2022 15:02:48 With:Daigle FRED Address: [facility] [address] [place] [address] Business (1) When: Unknown Comments:Call for any problems. [facility]01-20-2023 Hospital Discharge instructions Patient Education [...] including vitamins, herbs, eye drops, creams, and adwo-yeq-jcsbmyg medicines. Any problems you or family members [...] 06/23/2001 Document Revised: 04/18/2018 Document Reviewed: 09/06/2016 [employer] Patient Education 2020 [employer]. Follow Up Care 07/05/2022 09:47:30 With:Elicia Mcmillan CNP Address: When:1 to 2 weeks Comments:Following colonoscopy. [facility] 01-17-2023 Evaluation note* Encounter Date [...] way. Continue follow-up with cardiology as scheduled. [employer] Other 01-11-2023 NoteCONSULTATION CONSULTATION DATE: 07/20/2022 HISTORY [...] in three months' time unless otherwise indicated.[facility] 07-20-2022 NoteCONSULTATION PROCEDURE DATE: 07/20/2022 PREOPERATIVE [...] fan-like pattern. 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 He states that such activity has [...] for re-evaluation. Patient agrees to this plan.[facility] [id number] NoteCONSULTATION CONSULTATION DATE: 03/03/2022 This is a 61-pfte-bpuplnsdp returning to clinic for a 3-month follow-up. [...] be followed up in the office following.[facility] HospitalDshlzgwv45-05-6526 Telephone encounter Note* Telephone Encounter - Erica Beckett - 03/01/2022 11:40 AM EDT Patient has not been seen by this specialist in more than 1 year. Please contact patient to schedule office visit. Thank you [id number] Miscellaneous Notes* Telephone Encounter - Erica Beckett - 03/01/2022 11:40 AM EDT Patient has not been seen by this specialist in more than 1 year. Please contact patient to schedule office visit. Thank you documented in this [id number] Telephone encounter Note* Telephone Encounter - Irina Nguyen - 01/18/2022 7:23 AM EDT Last visit with Cardiology (Emperatriz Carnes) on 09/03/2020 Requested Prescriptions Pending Prescriptions Disp Refills metoprolol (TOPROL-XL) 100 mg XL tablet [Pharmacy Med Name: METOPROLOL SUCCINATE ER TABS 100MG] 90 Tablet 3 Sig: TAKE 1 TABLET DAILY No PCP on file No PCP on file [id number] Miscellaneous Notes* Telephone Encounter - Irina Nguyen - 01/18/2022 7:23 AM EDT Last visit with Cardiology (Emperatriz Carnes) on 09/03/2020 Requested Prescriptions Pending Prescriptions Disp Refills metoprolol (TOPROL-XL) 100 mg XL tablet [Pharmacy Med Name: METOPROLOL SUCCINATE ER TABS 100MG] 90 Tablet 3 Sig: TAKE 1 TABLET DAILY No PCP on file No PCP on file documented in this [id number] Telephone encounter Note* Telephone Encounter - Anirudh Gonzalez RPh - 11/29/2021 3:11 PM EDT Pt called back, will talk to his ACC to get refill [facility] Work Phone: 1(309) 268-655005-23-2022 Miscellaneous Notes* Telephone Encounter - Anirudh Gonzalez RPh - 11/29/2021 3:11 PM EDT Pt called back, will talk to his ACC to get refill * Telephone Encounter - Asia Laguna RN - 11/29/2021 2:52 PM EDT Left message for pt to return call to [facility] at [phone] 2nd attempt * Telephone Encounter - Cathie Whitley RN - 11/26/2021 2:46 PM EDT Left message for patient to please call back. 1st attempt * Telephone Encounter - Anirudh Gonzalez RPh - 11/25/2021 9:37 AM EDT [facility] Staff, Please contact pt re the following issue. Per 09/03/21 note pt goes to [facility] , they should refill, will deny Thanks! * Telephone Encounter - Tamiko Rodriguez PharmD - 11/24/2021 4:09 PM EDT Requested Prescriptions Pending Prescriptions Disp Refills warfarin (COUMADIN) 5 MG tablet 90 Tablet 0 Sig: Take 1 Tablet by mouth daily. No PCP on file No PCP on file documented in this [id number] Telephone encounter Note* Telephone Encounter - Asia Laguna RN - 11/29/2021 2:52 PM EDT Left message for pt to return call to [facility] at [phone] 2nd attempt [facility] Work Phone: [phone] 793-893405-20-2022 Telephone encounter Note* Telephone Encounter - Cathie Whitley RN - 11/26/2021 2:46 PM EDT Left message for patient to please call back. 1st attempt [id number] Telephone encounter Note* Telephone Encounter - Anirudh Gonzalez RPh - 11/25/2021 9:37 AM EDT [facility] Staff, Please contact pt re the following issue. Per 09/03/21 note pt goes to [facility] , they should refill, will deny Thanks! [id number] Telephone encounter Note* Telephone Encounter - Tamiko Rodriguez PharmD - 11/24/2021 4:09 PM EDT Requested Prescriptions Pending Prescriptions Disp Refills warfarin (COUMADIN) 5 MG tablet 90 Tablet 0 Sig: Take 1 Tablet by mouth daily. No PCP on file No PCP on file [employer] Work Phone: 1(977) 113-907905-18-2022 Miscellaneous Notes* Telephone Encounter - Tamiko Rodriguez [...] [Pharmacy Med Name: POTASSIUM CHLORIDE ER (DISP) [id number]] 180 Tablet 3 Sig: TAKE 1 TABLET TWICE A DAY Refused Prescriptions Disp Refills warfarin (COUMADIN) 5 MG tablet [Pharmacy Med Name: WARFARIN TABS 5MG] 90 Tablet 3 Sig: TAKE 1 TABLET DAILY (INR: 2.33) No PCP on file No PCP on file documented in this encounterMetroHealthEvaluation + Plan note Future Appointments Appointment Date:11/01/2022 09:45:00 AM Scheduled Provider:Min Tristan Jr., MD Location:[facility] Appointment Type:URO Office Visit Diagnostic Tests Pending * PSA Total 10/27/21 [facility] evaluation + Plan note Future Appointments Appointment Date:10/06/2022 09:00:00 AM Scheduled Provider: Location:[facility] Appointment Type:Surgery FT Appointment Date:11/01/2022 09:45:00 AM Scheduled Provider:Min Tristan Jr., MD Location:[facility] Appointment Type:URO Office Visit [facility] Evaluation + Plan note Future Appointments Appointment Date:01/30/2024 10:00:00 AM Scheduled Provider:CATHIE MONTIEL PA-C Location:[facility] Appointment Type:URO Office Visit [facility] evaluation + Plan note Future Appointments Appointment Date:01/30/2024 10:00:00 AM Scheduled Provider:CATHIE MONTIEL PA-C Location:[facility] Appointment Type:URO Office Visit Diagnostic Tests Pending * [facility] (paroxysmal atrial [...] present documented in this encounter [facility] [employer] Other Evaluation note* Diagnosis Persistent atrial fibrillation [...] in this encounter [facility] noteNo assessment information [facility]Our [facility] Work Phone: Evaluation note* Diagnosis PAF (paroxysmal atrial fibrillation) (HCC) Atrial fibrillation Anticoagulated Encounter for long-term (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 Preop cardiovascular exam Pre-operative cardiovascular examination JAVED on CPAP Obstructive sleep apnea (adult) (pediatric) Obesity, unspecified classification, unspecified obesity type, unspecified whether serious comorbidity present Persistent atrial fibrillation (HCC) Atrial fibrillation documented [facility]* Diagnosis PAF (paroxysmal atrial fibrillation) (HCC)- Primary Atrial fibrillation documented in this encounter [facility] [...] Hospitalization History No Hospitalization histo ry information [employer] Other Hospital course Narrative No data available for this section [facility] Hospital Discharge instructions No data available for this section [facility] progress note No data available for this section [facility] Summary Purpose Family History Relationship Condition Age at Onset Recorded Date/T gerhard father Unknown Malignant neoplasm Unknown Not Specified Unknown Advance Directives Advance Directive Response Recorded Date/ Time Advance Directives No October 18 024 10:11am Chief Complaint and Reason for Visit Chief Complaint Amb Documentation Cough Additional Source Comments (unrecognized sect ion and content) No Status Records FoundNo Status Records FoundNo Status Records FoundNo Status Records FoundNo Status Records FoundNo Status Records Found INFORMATION SOURCE (unrecogn ized section and content) DATE CREATED AUTHOR 01/02/2018 [place] [facility] DATE CREATED AUTHOR AUTHOR'S ORGANIZ ATION 04/24/2018 [facility] DATE CREATED AUTHOR AUTHOR'S ORGANIZ ATION 05/06/2018 [facility] DATE CREATED AUTHOR AUTHOR'S ORGANIZ ATION 12/16/2022 [facility] DATE CREATED AUTHOR AUTHOR'S ORGANIZ ATION 01/25/2024 [facility] DATE CREATED AUTHOR AUTHOR'S ORGANIZ ATION 04/15/2024 [facility] Reason for Visit (unrecogniz ed section and content) Reason Comments Refill Reason Onset Date Comments Refill 11/24/2021 Reason Onset Date Comments Refill 02/14/2023 Reason Onset Date Comments Question about medication 02/16/2023 Reason Onset Date Comments Refill 02/16/2023 Reason Comments Atrial fibrillation/flutter Reason Comments New patient, to establish relationship Care Teams (unrecognized sec tion and content) Radiographer Angiogram Relationship Specialty Start Date End Date Emperatriz Carnes DO [address] [place] [address] Physician Electrophysiology 04/14/20 Radiographer Angiogram Relationship Specialty Start Date End Date Emperatriz Carnes DO [address] [place] [address] Physician Electrophysiology 04/14/20 Radiographer Angiogram Relationship Specialty Start Date End Date Emperatriz Carnes DO [address] [place] [address] Physician Electrophysiology 04/14/20 Radiographer Angiogram Relationship Specialty Start Date End Date Emperatriz Carnes DO [address] [place] [address] [address] [place] [id number] Physician Electrophysiology 04/14/20 Radiographer Angiogram Relationship Specialty Start Date End Date Emperatriz Carnes DO [address] [place] [address] [place] [address] Physician Electrophysiology 04/14/20 Radiographer Angiogram Relationship Specialty Start Date End Date Emperatriz Carnes DO [address] [place] [address] [place] [address] Physician Electrophysiology 04/14/20 Radiographer Angiogram Relationship Specialty Start Date End Date Emperatriz Carnes DO [address] [place] [address] [place] [address] Physician Electrophysiology 04/14/20 Radiographer Angiogram Relationship Specialty Start Date End Date Emperatriz Carnes DO [address] [place] [address] [place] [address] Physician Electrophysiology 04/14/20 Radiographer Angiogram Relationship Specialty Start Date End Date Emperatriz Carnes DO [address] [place] [address] Physician Electrophysiology 04/14/20 Team Status: Active Member [...] October 19, 2023 End: October 19, 2023 Radiographer Angiogram Relationship Specialty Start Date End Date Emperatriz Carnes DO [address] [place] [address] Physician Electrophysiology 04/14/20 Radiographer Angiogram Relationship Specialty Start Date End Date Emperatriz Carnes DO [address] [place] [address] Physician Electrophysiology 04/14/20 Goals (unrecognized section and [...] BE BASED ON THE PRIMARY CLINICAL RECORDS. [facility] [employer] provides no warranty or guarantee of the accuracy or completeness of information in this document.
[2024-04-29 07:33] VITALS: BP 127/70; PULSE 70; TEMP 36.3; O2SAT 100
[2024-04-29 07:38] LABS: INR 2.42; Prothrombin Time 23.5 sec (9.0-11.6)
[2024-04-29 08:13] VITALS: BP 115/68; PULSE 65; O2SAT 94
[2024-04-29] MEDS: TRIAMCINOLONE ACETONIDE 40 MG/ML VIAL INJ (08:14)
[2024-04-29] MEDS: LIDOCAINE HCL 2% 400 MG/20 ML MDV INJ (08:14)
[2024-04-29] MEDS: IOHEXOL 240 MG/ML - 10 ML VIAL INJ (08:14)
[2024-04-29] MEDS: BUPIVACAINE HCL 0.25% PF 25 MG/10 ML VIAL 2 ML INJ (08:14)
--- NOTE | 2024-04-29 08:15 | W.PM.PROCNOT ---
Date of procedure: 04/29/24 Pre-op diagnosis: Pain due to right sacroiliitis Post-op diagnosis: same as pre-op Procedure: Procedure: Right sacroiliac joint injection Medications: Bupivacaine 0.25% 3cc, kenalog 40mg After informed consent was obtained, the patient was brought to the medical procedure unit and placed in the prone position, when a timeout was completed verifying correct patient, procedure, site, positioning, implant, and/or special equipment.? The skin overlying the area was prepped and draped in standard sterile fashion using alcohol.? A 25-gauge needle was inserted towards the right sacroiliac joint under direct fluoroscopic imaging.? Needle tip was advanced until the joint was encountered.? We instilled a total of 2 mL of solution.? Postoperatively needles were removed.? The patient tolerated the procedure well without complication.? The patient reported reduction in pain symptoms postoperatively. Anesthesia: Local Surgeon: Blessing Granda Pathology: none sent Condition: stable Disposition: no change
[2024-04-29 08:16] VITALS: BP 130/79; PULSE 64; O2SAT 96
== END 2024-04-29 08:23 | disposition home or self-care (01) ==
LOC: SURGOUT 07:17
PROVIDERS: PCP Family Medicine; Visit Provider Anesthesiology
DX: M46.1 Sacroiliitis, not elsewhere classified (principal)
CPT/HCPCS: 27096; 36415; 85610; J0665; J3301; Q9966

== ENCOUNTER 2024-05-10 12:47 | Outpatient (RCR) | payer MEDICARE, SELFPAY | END 2024-06-08 23:59 | disposition home or self-care (01) | LOC: MM 12:47 | PROVIDERS: PCP Family Medicine; Visit Provider Internal Medicine | DX: Z51.81 Encounter for therapeutic drug level monitoring (principal); Z79.01 Long term (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 | CPT/HCPCS: 85610; G0463 ==

== ENCOUNTER 2024-05-14 12:52 | Outpatient (OUT) | payer MEDICARE, SELFPAY ==
--- NOTE | 2024-05-14 | CONS_ITS ---
PROCEDURE DATE: 05/14/2024 PROCEDURE: Trigger point injection left splenius capitis muscle in two different locations. PREOPERATIVE DIAGNOSIS: Pain secondary to myalgia left splenius capitis. POSTOPERATIVE DIAGNOSIS: Pain secondary to myalgia left splenius capitis. SOLUTION USED FOR INJECTION: 2 mL of 2% lidocaine, 2 mL of 0.25% Marcaine and 20 mg of Kenalog, total of 5 mL, and 5 mL used for the injection in divided doses. PROCEDURE: After informed consent was obtained from the patient, placed in sitting position. Skin overlying the area was prepped with alcohol. A 25 gauge, 1 ?? needle inserted into the substance of the left splenius capitis at approximately C3 level on the left side. Needle tip advanced until there was a mild twitch response, at which point we injected 1.5 mL of solution. This was repeated in a similar fashion in two other locations, along the left splenius capitis at the L4 level as well. No indication of intravascular or intraneural needle tip placement. Patient reports a dramatic reduction in pain symptoms post procedurally. Will see him back in the office in 4-6 weeks? time or sooner if needed. CATHERINE
== END 2024-05-14 12:53 | disposition home or self-care (01) ==
LOC: PM 12:52
PROVIDERS: PCP Family Medicine; Visit Provider Anesthesiology Pain Medicine
DX: M79.18 Myalgia, other site (principal)
CPT/HCPCS: 20552; J0665; J3301

== ENCOUNTER 2024-06-10 05:08 | Outpatient (RCR) | payer MEDICARE, SELFPAY | END 2024-07-09 09:20 | disposition home or self-care (01) | LOC: MM 05:08 | PROVIDERS: PCP Family Medicine; Visit Provider Internal Medicine | DX: Z51.81 Encounter for therapeutic drug level monitoring (principal); Z79.01 Long term (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 | CPT/HCPCS: 85610; G0463 ==

== ENCOUNTER 2024-06-13 12:21 | Outpatient (OUT) | payer MEDICARE, SELFPAY ==
--- NOTE | 2024-06-13 12:55 | P.CN_ITS ---
Consult Note: HPI Data of Consult Patient: known to practice within the last 3 years Requesting Physician: Trista Lyman NP Primary Care Provider: Rocio Bagley MD Consult Narrative Reason for consult: f/u Narrative: Abdullahi Ybarra presents for evaluation and management of right low back and hip pain. Pain feels sharp, aching, and sore to touch. Pain increased with standing, walking, lying, lifting. Pain improved with heat. Has noticed increased pain over the last week, little to no benefit from tylenol tizanidine and gabapentin. denies falls/injury. cc:: CC: Trista Lyman NP Review of Systems ROS Status of ROS 10 or more systems reviewed and unremark able except as noted in history and below Musculoskeletal Reports: back pain and joint pain PFSH PFSH Medical History Atrial fibrillation ?I48.91 - Unspecified atrial fibrillation (ICD-10) Low back pain ?M54.50 - Low back pain, unspecified (ICD-10) Osteoarthritis ?M19.90 - Unspecified osteoarthritis, unspecified site (ICD-10) Colon cancer ?C18.9 - Malignant neoplasm of colon, unspecified (ICD-10) Obesity ?E66.9 - Obesity, unspecified (ICD-10) Kidney stone ?N20.0 - Calculus of kidney (ICD-10) Enlarged prostate ?N40.0 - Benign prostatic hyperplasia without lower urinary tract symptoms (ICD-10) Pulmonary embolism ?I26.99 - Other pulmonary embolism without acute cor pulmonale (ICD-10) Sleep apnea ?G47.30 - Sleep apnea, unspecified (ICD-10) High cholesterol ?E78.00 - Pure hypercholesterolemia, unspecified (ICD-10) Hypertension ?I10 - Essential (primary) hypertension (ICD-10) Surgical History S/P TURP ?Z90.79 - Acquired absence of other genital organ(s) (ICD-10) History of colon resection ?Z90.49 - Acquired absence of other specified parts of digestive tract (ICD- 10) Meds Home Medications and Allergies Home Medications ?Medication ?Instructions ?Recorded ?Confirmed ?Type atorvastatin 20 mg tablet 20 mg PO QDAY 12/22/22 04/29/24 History calcium carbonate 300 mg PO DAILY 12/22/22 04/29/24 History flecainide 100 mg tablet 100 mg PO Q12H 12/22/22 04/29/24 History hydrochlorothiazide 25 mg tablet 25 mg PO QDAY 12/22/22 04/29/24 History lisinopril 40 mg tablet 40 mg PO QDAY 12/22/22 04/29/24 History loratadine 10 mg tablet 10 mg PO DAILY 12/22/22 04/29/24 History metoprolol succinate 100 mg 100 mg PO QDAY 12/22/22 04/29/24 History tablet,extended release 24 hr multivitamin 1 tab PO DAILY 12/22/22 04/29/24 History olopatadine 0.1 % eye drops drp ophthalmic (eye) BID 12/22/22 History potassium chloride 20 mEq 20 meq PO BID 12/22/22 04/29/24 History tablet,extended release(part/cryst) (Klor-Con M) warfarin 5 mg tablet 5 mg PO QDAY 12/22/22 04/29/24 History tizanidine 4 mg tablet 4 mg PO DAILY 06/22/23 04/29/24 History gabapentin 300 mg capsule 900 mg PO BID 01/17/24 04/29/24 History Allergies Allergy/AdvReac Type Severity Reaction Status Date / Time No Known Drug Allergies Allergy Verified 04/29/24 07:37 Exam Constitutional Documenting provider has reviewed patient's vital signs: yes Common normals: no apparent distress, oriented x3, healthy appearing, alert and well nourished General appearance: cooperative [facility] Common normals: normocephalic, hearing grossly normal bilaterally and moist oral mucous membranes Head and scalp: normocephalic Eye Common normals: PERRL Pupil: PERRL Neck & C-Spine Common normals: full ROM General: normal visual inspection Chest Common normals: inspection of chest normal Respiratory Common normals: normal respiratory effort, no retractions and no use of accessory muscles Back & Pelvis Lumbar spine/lower back: normal to inspection, ROM limited, pain with ROM and straight leg raise negative bilaterally Sacroiliac joints: SI joints normal Other: right sij negative greer(patricks), gaenslens, thigh thrust, compression test strength 5/5 in BLE increased pain over right superior gluteal nerve significant pain over right GTB negative internal/external log roll Neuro Common normals: oriented x3, CN's II-XII intact bilaterally, moves all extremities, no focal motor deficits, no sensory deficits noted and deep tendon reflexes 2+ bilaterally Sensorium/orientation: alert Motor exam: strength 5/5 throughout and no movement abnormalities noted Psych Common normals: mental status grossly normal, thought process normal, apartment 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 As part of providing excellent, safe, comprehensive care, the following was completed at our patient's visit: 1. A medication reconciliation and review to ensure accurate knowledge of current/active medications, including asking our patients to inform us about any hrkh-uvj-awybaqd medications or herbal remedies/nutritional supplements/alternative remedies. 2. A review to specifically ensure our patients have had annual screening for screening for depression, screening for tobacco use, and screening for unhealthy alcohol use. For concerning screenings had a discussion with the patient, provided patient education, and recommended follow-up with primary care provider when appropriate. If patient noted with a risk of falling, they received education on strength, gait, and balance training to prevent future risk of falling. Assessment and Plan Assessment and Plan (1) Greater trochanteric bursitis: (2) Unspecified mononeuropathy of right lower limb: (3) Sacroiliac joint dysfunction: (4) Lumbar stenosis with neurogenic claudication: (5) Lumbar degenerative disc disease: (6) Lumbar spondylosis: Plan right GTB injection discussed and ordered stop tizanidine, start baclofen 10mg TID PRN pain/spasming increase diclofenac gel QID to affected area consider right superior gluteal nerve block working towards RFA
== END 2024-06-13 12:22 | disposition home or self-care (01) ==
LOC: PM 12:21
PROVIDERS: PCP Family Medicine; Visit Provider Nurse Practitioner
DX: M70.61 Trochanteric bursitis, right hip (principal); G57.81 Other specified mononeuropathies of right lower limb; M53.3 Sacrococcygeal disorders, not elsewhere classified; M48.062 Spinal stenosis, lumbar region with neurogenic claudication; M51.369 Other intervertebral disc degeneration, lumbar region without mention of lumbar back pain or lower extremity pain; M47.816 Spondylosis without myelopathy or radiculopathy, lumbar region
CPT/HCPCS: G0463

== ENCOUNTER 2024-06-25 14:46 | Outpatient (OUT) | payer MEDICARE, SELFPAY ==
--- NOTE | 2024-06-25 14:46 | CONS_ITS ---
PAIN MANAGEMENT CONSULTATION ? CONSULTATION DATE: ??06/25/2024 ? TO:? Rocio Bagley M.D. ? CHIEF COMPLAINT:? Includes right leg pain, right hip pain. ? HISTORY:? He reports the pain as being overall 7/10, described as a lightening bolt type of pain, increased with activities such as standing, walking, performing transitioning maneuvers.? He feels most comfortable in the semi- recumbent position.? Denies any change in bowel and bladder habits or new sensorimotor changes in the lower extremities. ? CURRENT MEDICATION:? Includes baclofen 10 mg t.i.d., topical diclofenac gel, and Tylenol 500, two pills, q. 8 hours p.r.n.? He is also on Coumadin. ? EXAMINATION:? Notable for patient having hypoesthesia along the right L2 dermatome, the right iliopsoas muscle, depressed right patella reflex.? Patient had a positive right sided FABERs sign. ? IMPRESSION:? Our impression is patient with chronic pain secondary to right hip joint degenerative joint disease, right L2 radiculopathy. ? RECOMMENDATIONS:? I recommend obtaining right hip films with weight bearing views, as well as a lumbosacral MRI without contrast.? Will see the patient back in the office to review his imaging studies. ? As part of providing excellent, safe, comprehensive care, the following was completed at our patient's visit: ? 1. A medication reconciliation and review to ensure accurate knowledge of current/active medications, including asking our patients to inform us about any pbkj-zna-mlepanu medications or herbal remedies/nutritional supplements/alternative remedies. ? 2. A review to specifically ensure our patients have had annual screening for: elevated body mass index (BMI, see intake chart for exact total), tobacco use, screening for depression, and screening for unhealthy alcohol use.? When screening is concerning, patients are provided with education and the specific recommendation to discuss the concerning health issue and treatment options with their primary care provider. CATHERINE
--- NOTE | 2024-06-25 14:46 | PCN_ITS ---
PROCEDURE NOTE ? PROCEDURE DATE: ??06/25/2024 ? PROCEDURE:? Right trochanteric bursa injection. ? PREOPERATIVE DIAGNOSIS:? Pain secondary to right trochanteric bursitis. ? POSTOPERATIVE DIAGNOSIS:? Pain secondary to right trochanteric bursitis. ? SOLUTION USED FOR INJECTION:? 2 mL of 2% lidocaine, 2 mL of 0.25% Marcaine and 20 mg of Kenalog, total of 5 mL, and 5 mL used for the injection at the site. ? IMMEDIATE COMPLICATIONS:? None. ? PROCEDURE:? After informed consent was obtained from the patient, placed in the standing position.? Skin overlying the area was prepped with alcohol.? 25 gauge, 1 ?? needle inserted into the area of the right greater trochanteric bursa, at a point just proximal to the insertion of the right gluteus medius.? After encountering same, with no indication of intravascular or intraneural needle tip placement, 5 mL of solution was injected in divided doses.? Post procedure, patient reports reduction in pain symptoms. CATHERINE
== END 2024-06-25 14:47 | disposition home or self-care (01) ==
LOC: PM 14:47
PROVIDERS: PCP Family Medicine; Visit Provider Anesthesiology Pain Medicine
DX: M16.11 Unilateral primary osteoarthritis, right hip (principal); G89.29 Other chronic pain; M54.16 Radiculopathy, lumbar region; M70.61 Trochanteric bursitis, right hip
CPT/HCPCS: 20610; J0665; J3301

== ENCOUNTER 2024-07-11 01:06 | Outpatient (RCR) | payer MEDICARE, SELFPAY | END 2024-08-09 14:38 | disposition home or self-care (01) | LOC: MM 01:06 | PROVIDERS: PCP Family Medicine; Visit Provider Internal Medicine | DX: Z51.81 Encounter for therapeutic drug level monitoring (principal); Z79.01 Long term (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 | CPT/HCPCS: 85610; G0463 ==

== ENCOUNTER 2024-07-15 08:43 | Outpatient (OUT) | payer MEDICARE, SELFPAY ==
--- NOTE | 2024-07-15 08:47 | XR_ITS ---
[facility] [place] [id number] Patient Name: ROSEY CHURCH MRN: [id number] date: 1955 Sex: M Assigned Patient Location: MRI Current Patient Location: MRI Accession/Order Number: [id number] Exam Date: 07/15/2024 08:58 Report Date: 07/15/2024 12:31 At the request of: JAIMEE FELIZ Procedure: XR hip RT min 2V EXAM: Right hip HISTORY: . Right Hip Pain . COMPARISON: None. TECHNIQUE: 2 views. FINDINGS: Hypertrophic spurs are noted involving the femoral head as well as the superolateral aspect of the acetabulum. There is slight narrowing of the joint space. No fracture or dislocation is noted. Surrounding soft tissues are unremarkable. XR/XR hip RT min 2V IMPRESSION: Mild to moderate osteoarthritic changes of the right hip. Electronically authenticated by: UNA RIVERA Date: 07/15/2024 12:31
--- NOTE | 2024-07-15 08:47 | MR_ITS ---
[address] [address] Patient Name: ROSEY CHURCH MRN: [facility]:[id number] date: 1955 Sex: M Assigned Patient Location: MRI Current Patient Location: MRI Accession/Order Number: [id number] Exam Date: 07/15/2024 09:00 Report Date: 07/15/2024 11:43 At the request of: JAIMEE FELIZ Procedure: MR lumbar spine wo con EXAMINATION: MR lumbar spine wo con HISTORY: Right Hip Pain, Lumbar Radiculopathy COMPARISON: No relevant comparison available. TECHNIQUE: A variety of imaging planes and parameters were utilized for visualization of suspected pathology. FINDINGS: For the purposes of numbering, sagittal T2 image # 8 extends from the T11 vertebral body superiorly to the S2 level inferiorly. PARASPINAL AREA: Normal with no visible mass. BONES: Normal alignment with no acute fracture or spondylolisthesis. Severe anterior degenerative spondylosis . Modic 2 changes noted in the L2 vertebral body CORD/CAUDA EQUINA: Normal caliber, contour, and signal intensity. DISC LEVELS: 12-L1: No significant disc/facet abnormality, spinal stenosis, or foraminal stenosis. L1-L2: No significant disc/facet abnormality, spinal stenosis, or foraminal stenosis. L2-L3: Early degenerative disc disease is present without focal protrusion or neural impingement. L3-L4: No significant disc/facet abnormality, spinal stenosis, or foraminal stenosis. L4-L5: Early degenerative disc disease is present without focal protrusion or neural impingement. L5-S1: Disc space narrowing and disc desiccation. Mild diffuse disc/osteophyte complex and facet osteoarthropathy. No central or foraminal stenosis MR/MR lumbar spine wo con IMPRESSION: Mild degenerative changes with no central or foraminal stenosis. Electronically authenticated by: UNA SEARS Date: 07/15/2024 11:43
== END 2024-07-15 08:44 | disposition home or self-care (01) ==
LOC: MRI 08:43
PROVIDERS: PCP Family Medicine; Visit Provider Anesthesiology Pain Medicine
DX: M25.551 Pain in right hip (principal); M16.11 Unilateral primary osteoarthritis, right hip; M54.16 Radiculopathy, lumbar region; M51.369 Other intervertebral disc degeneration, lumbar region without mention of lumbar back pain or lower extremity pain
CPT/HCPCS: 72148; 73502

== ENCOUNTER 2024-07-16 13:00 | Outpatient (OUT) | payer MEDICARE, SELFPAY ==
--- NOTE | 2024-07-16 | CONS_ITS ---
CONSULTATION DATE: 07/16/2024 TO: Rocio Bagley M.D. HISTORY: He returns today complaining of pain in his right hip area, rated between 3-5/10 pain, at times sharp in character, but usually a dull aching component. Seems to increase with activities such as standing, walking and performing transitioning maneuvers. Feels most comfortable in the semi- recumbent position. Denies any change in bowel and bladder habits or new sensorimotor changes in the lower extremities. We sent quite a bit of time discussing the results of his lumbosacral MRI, as well as x-rays of the right hip. CURRENT MEDICATION: Includes baclofen 10 mg at h.s. and gabapentin 900 mg b.i.d. EXAM: His exam is notable for patient having a positive right sided FABERs sign, but a non-focal sensorimotor exam of his lower extremities. IMPRESSION: Our impression is patient appears to have residual pain secondary to right hip degenerative joint disease. RECOMMENDATIONS: I have recommended he consider aquatic therapy. Continue with baclofen as ordered. At this point, I do not feel any intervention is indicated. Will see the patient back in the office in six months? time or sooner if needed. As part of providing excellent, safe, comprehensive care, the following was completed at our patient's visit: 1. A medication reconciliation and review to ensure accurate knowledge of current/active medications, including asking our patients to inform us about any aveg-jon-vvrzxox medications or herbal remedies/nutritional supplements/alternative remedies. 2. A review to specifically ensure our patients have had annual screening for: elevated body mass index (BMI, see intake chart for exact total), tobacco use, screening for depression, and screening for unhealthy alcohol use. When screening is concerning, patients are provided with education and the specific recommendation to discuss the concerning health issue and treatment options with their primary care provider. CATHERINE
== END 2024-07-16 13:01 | disposition home or self-care (01) ==
LOC: PM 13:01
PROVIDERS: PCP Family Medicine; Visit Provider Anesthesiology Pain Medicine
DX: M16.11 Unilateral primary osteoarthritis, right hip (principal); M25.551 Pain in right hip; Z51.81 Encounter for therapeutic drug level monitoring; Z79.01 Long term (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
CPT/HCPCS: 85610; G0463

== ENCOUNTER 2024-07-18 13:42 | Outpatient (RCR) | payer MEDICARE, SELFPAY | END 2024-08-24 10:15 | disposition home or self-care (01) | LOC: PT 13:42 | PROVIDERS: PCP Family Medicine; Visit Provider Anesthesiology Pain Medicine | DX: M25.551 Pain in right hip (principal) | CPT/HCPCS: 97110; 97113; 97161 ==

== ENCOUNTER 2024-08-12 00:42 | Outpatient (RCR) | payer MEDICARE, SELFPAY | END 2024-09-06 10:27 | disposition home or self-care (01) | LOC: MM 00:42 | PROVIDERS: PCP Family Medicine; Visit Provider Internal Medicine | DX: Z51.81 Encounter for therapeutic drug level monitoring (principal); Z79.01 Long term (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 | CPT/HCPCS: 85610; G0463 ==

== ENCOUNTER 2024-09-08 07:20 | Outpatient (RCR) | payer MEDICARE, SELFPAY | END 2024-10-04 13:44 | disposition home or self-care (01) | LOC: MM 07:20 | PROVIDERS: PCP Family Medicine; Visit Provider Internal Medicine | DX: Z51.81 Encounter for therapeutic drug level monitoring (principal); Z79.01 Long term (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; I48.91 Unspecified atrial fibrillation | CPT/HCPCS: 85610; G0463 ==

== ENCOUNTER 2024-10-08 05:17 | Outpatient (RCR) | payer MEDICARE, SELFPAY | END 2024-11-06 15:23 | disposition home or self-care (01) | LOC: MM 05:17 | PROVIDERS: PCP Family Medicine; Visit Provider Internal Medicine | DX: Z51.81 Encounter for therapeutic drug level monitoring (principal); Z79.01 Long term (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 | CPT/HCPCS: 85610; G0463 ==

== ENCOUNTER 2024-11-07 04:46 | Outpatient (RCR) | payer MEDICARE, SELFPAY | END 2024-12-06 15:48 | disposition home or self-care (01) | LOC: MM 04:46 | PROVIDERS: PCP Family Medicine; Visit Provider Internal Medicine | DX: Z51.81 Encounter for therapeutic drug level monitoring (principal); Z79.01 Long term (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 | CPT/HCPCS: 85610; G0463 ==

== ENCOUNTER 2024-11-25 12:10 | Outpatient (OUT) | payer MEDICARE, SELFPAY ==
--- NOTE | 2024-11-25 13:38 | PM.CN ---
Consult Note: HPI Data of Consult Patient: known to practice within the last 3 years Consult date: 11/25/24 Requesting Physician: Blessing Granda MD Primary Care Provider: Rocio Bagley MD Consult Narrative Reason for consult: right knee, right hip pain Narrative: 69yom who presents for assessment. notes worsening pain in right knee and right hip. previously has had injections in right knee, with good benefit for >3 months. right hip xr shows moderate osteoarthritis. continues in a series of provider directed home exercises >6 weeks, without benefit. uses topicals, heat, ice, gabapentin. denies adverse med side effects. cc:: CC: Blessing Granda MD Review of Systems ROS Status of ROS 10 or more systems reviewed and unremarkable except as noted in history and below [facility] Medical History Atrial fibrillation ?I48.91 - Unspecified atrial fibrillation (ICD-10) Low back pain ?M54.50 - Low back pain, unspecified (ICD-10) Osteoarthritis ?M19.90 - Unspecified osteoarthritis, unspecified site (ICD-10) Colon cancer ?C18.9 - Malignant neoplasm of colon, unspecified (ICD-10) Obesity ?E66.9 - Obesity, unspecified (ICD-10) Kidney stone ?N20.0 - Calculus of kidney (ICD-10) Enlarged prostate ?N40.0 - Benign prostatic hyperplasia without lower urinary tract symptoms (ICD-10) Pulmonary embolism ?I26.99 - Other pulmonary embolism without acute cor pulmonale (ICD-10) Sleep apnea ?G47.30 - Sleep apnea, unspecified (ICD-10) High cholesterol ?E78.00 - Pure hypercholesterolemia, unspecified (ICD-10) Hypertension ?I10 - Essential (primary) hypertension (ICD-10) Surgical History S/P TURP ?Z90.79 - Acquired absence of other genital organ(s) (ICD-10) History of colon resection ?Z90.49 - Acquired absence of other specified parts of digestive tract (ICD-10) Meds Home Medications and Allergies Home Medications ?Medication ?Instructions ?Recorded ?Confirmed ?Type atorvastatin 20 mg tablet 20 mg PO QDAY 12/22/22 04/29/24 History calcium carbonate 300 mg PO DAILY 12/22/22 04/29/24 History flecainide 100 mg tablet 100 mg PO Q12H 12/22/22 04/29/24 History hydrochlorothiazide 25 mg tablet 25 mg PO QDAY 12/22/22 04/29/24 History lisinopril 40 mg tablet 40 mg PO QDAY 12/22/22 04/29/24 History loratadine 10 mg tablet 10 mg PO DAILY 12/22/22 04/29/24 History metoprolol succinate 100 mg 100 mg PO QDAY 12/22/22 04/29/24 History tablet,extended release 24 hr multivitamin 1 tab PO DAILY 12/22/22 04/29/24 History olopatadine 0.1 % eye drops drp ophthalmic (eye) BID 12/22/22 History potassium chloride 20 mEq 20 meq PO BID 12/22/22 04/29/24 History tablet,extended release(part/cryst) (Klor-Con M) warfarin 5 mg tablet 5 mg PO QDAY 12/22/22 04/29/24 History gabapentin 300 mg capsule 900 mg PO BID 01/17/24 04/29/24 History baclofen 10 mg tablet 10 mg PO TID PRN pain 06/25/24 06/25/24 History Allergies Allergy/AdvReac Type Severity Reaction Status Date / Time No Known Drug Allergies Allergy Verified 04/29/24 07:37 Exam Narrative Exam Narrative: Psych-alert and oriented x 3.? Attentive and appropriate, constitutionally normal, displays normal mood and affect per situation.? There are no obvious deficits in memory, reasoning, or intellect. Extremities-lower extremities are warm with minimal edema and palpable pulses. Knee-examination of the right knee reveals tenderness to palpation over the superior, inferior, lateral, and medial aspect of the knee.? Some swelling is noted without erythema. Pain is elicited with flexion and extension of the knee both actively and passively.? Some grinding is noted with these motions.? There is no notable ligamental laxity or instability.? Hip-tenderness to palpation is noted over the right hip joint.? Pain is elicited with internal and external rotation of the hip.? Hip provocative maneuvers are positive and consistent with the patient's normal pain. Coordination remains intact.? Gait remains antalgic. Assessment and Plan Assessment and Plan (1) Osteoarthritis of right hip: Qualifiers: Osteoarthritis type: primary Qualified Code(s): M16.11 - Unilateral primary osteoarthritis, right hip (2) Right knee pain: Qualifiers: Chronicity: chronic Qualified Code(s): M25.561 - Pain in right knee; G89.29 - Other chronic pain Plan 69yom who presents for assessment. failed conservative measures, as noted. imaging reviewed, as noted. given symptoms and previous relief, prudent to proceed with right knee injection today. he is in agreement. will also order right hip injection to be done under fluoroscopic guidance. meds reviewed, no changes. follow up after procedure. procedure: right knee injection medications: bupivacaine 0.25% 4cc, depomedrol 40mg I explained the details of the procedure to the patient including the risks, benefits and alternatives. We had an informed discussion and the patient verbalized understanding and signed the consent form. All questions were answered appropriately.? A time out was performed.? After obtaining a comfortable seated position, the right knee was prepped with alcohol x3. A syringe containing the above medication was attached to a 25 gauge, 1.5 inch needle under strict aseptic technique. The lateral tibial plateau was palpated.? The needle was then advanced through the subcutaneous tissue in a medial and superior direction towards the joint space.? The contents of the syringe were gently injected without any resistance. The needle was removed and pressure was applied to the injection site to decrease the incidence of ecchymosis and hematoma formation.? A sterile bandage was applied.
== END 2024-11-25 12:11 | disposition home or self-care (01) ==
LOC: PM 12:11
PROVIDERS: PCP Family Medicine; Visit Provider Anesthesiology
DX: M16.11 Unilateral primary osteoarthritis, right hip (principal); M25.561 Pain in right knee; G89.29 Other chronic pain
CPT/HCPCS: 20610; J0665; J1010

== ENCOUNTER 2024-11-26 16:50 | Emergency (ER) | payer MEDICARE, SELFPAY ==
[2024-11-26 16:55] VITALS: BP 148/75; PULSE 82; TEMP 36.5; O2SAT 99; BMI 38.5
--- OUTSIDE RECORDS SUMMARY | 2024-11-26 17:05 | XMS_ITS | CCD ---
Author Organization [facility] Care Team Providers Care Extrusion Bender Name Role Phone PHYSICIAN, DEFAULT Unavailable Unavailable PHYSICIAN, DEFAULT Unavailable Unavailable DONALD LIZARRAGA Unavailable Unavailable PHYSICIAN, DEFAULT Unavailable Unavailable PHYSICIAN, DEFAULT Unavailable Unavailable DONALD LIZARRAGA Unavailable Unavailable Devin Greer Unavailable Unavailable Donald Lizarraga Unavailable Unavaila ble DONALD LIZARRAGA Primary Care Physician [phone] Deyvi DO, Emperatriz Unavailable Karim DO, Emperatriz Unavailable Donald Lizarraga Unavailable DR JADEN DOBBS Consulting Unavailable VILLA ., DR JADEN Rodriguez Admitting Unavailable VILLA ., DR JADEN Rodriguez Attending Unavailable ELHAM, DR DONALD Ruano Primary Care Unavailable CUEVASMARIELA LOERA Consulting Unavailable FAWWAD, WOMACK H Admitting Unavailable FAWWAD, WOMACK H Attending Unavailable ELHAM, DR DONALD Ruano Primary Care Unavailable DR DONALD LIZARRAGA Primary Care Unavailable FAWWAD, WOMACK H Attending Unavailable FAWWAD, WOMACK H Admitting Unavailable ELHAM, DR DONALD Ruano Primary Care Unavailable MASON .MARIELA Consulting Unavailable VILLA ., DR JADEN Rodriguez Admitting Unavailable VILLA ., DR JADEN Rodriguez Attending Unavailable LAKSHMIPATHY ., NARENDCRISATH Admitting Rochelle vaDR DONALD Jones Primary Care Unavailable JEET KLEIN Consulting Unavailable LAKSHMIPATHSierra ., NARENDRANATH Attending Rochelle vailable ELHAM, DR [...] DONALD Ruano Primary Care Unavailable CUEVAS ., MARIELA Consulting Unavailable VILLA ., DR JADEN Rodriguez [...] ., DR JADEN Rodriguez Attending Unavailable MASON ., MARIELA Consulting Unavailable LIZARRAGA, DR DONALD Ruano Admitting Unavailable LIZARRAGA, DR DONALD Ruano Attending Unavailable LIZARRAGA, DR DONALD Ruano Consulting Unavailable LIZARRAGA, DR DONALD Ruano Primary Care Unavailable HALKER ., JEET Admitting Unavailable HALKER ., JEET Attending Unavailable WEST, DR UNA Sofia Consulting Unavailable LIZARRAGA, DR [...] Rochelle vailable LAKSHMIPATHY ., NARENDRANATH Attending Rochelle MARIELA Camarillo Consulting Unavailable DR DONALD LIZARRAGA Primary Care Unavailable DR DONALD LIZARRAGA Primary Care Unavailable SHAIKH Gurwinder FARMER Attending Unavailable SHAIKH uGrwinder FARMER Admitting Unavailable Karim DO, Emperatriz Unavailable Karim DO, Emperatriz Unavailable CATHIE HERNANDEZ Attending Unavailable PRASANTH PEREZ Attending Unavailable PROVIDER, UNKNOWN Admitting Unavailable Jesus Alberto JACKSON, Blessing Viera Attending Unavailable Donald Lizarraga MD Primary Care Provider Mariela Mosley APRN Attending Provider 1( [phone] Donald Lizarraga Primary Care Unavailable Mariela Mosley Attending UnavailMariela Castillo Admitting UnavailPrasanth Singletary MD Unavailable Allergies Allergy Classification Reported Allergen(s) Allergy Type Date of Onset Reaction(s) Facility (16 sources) Other (Review Comments!); 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: [OTHER (REVIEW COMMENTS!)] Propensity to adverse reactions to drug 12-29-19 19 [facility] (11 [facility]) Decongestant Drug allergy 10-18-19 24 Unknown, [facility] (8 sources) DECONGESTANTS Propensity to adverse reactions 05-03-20 13 Unknown, [facility] Comment on above: Onset Date: 05/03/20 13 (3 sources) Allergies Reconciled Propensity to adverse reactions Unknown [facility] Other (3 sources) patient allergy list reviewed by nurse or physicia Propensity to adverse reactions 11-23-19 17 Comment:Done [facility] Other (1 source) No Known Medication Allergies; 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: [No Known Medication Allergies] Propensity to adverse reactions (disorder) [facility] Repository Medications Current Medications Medication Drug Class(es) Dates Sig (Normalized) Sig (Original) [id number] 200 actuat albuterol 0.09 mg/actuat metered dose inhaler (1 source) beta2-Adrenergic Agonist Start: 05-29-2024 Albuterol Sulfate 90 mcg/actuation HFA aerosol inhaler Active 1 INH INHALATION Every 6 hours May 29, 2024 12:00am atorvastatin 20 mg oral tablet (20 sources) HMG-CoA Reductase Inhibitor Start: 05-06-2024 Atorvastatin 20 mg tablet Active 0 .ROUTE .COMPLEX May 06, 2024 7:50pm TAKE 1 TABLET AT BEDTIME Start: 05-06-2024 Atorvastatin A ctive 0 .ROUTE .COMPLEX May 06, 2024 8:50pm TAKE 1 TABLET AT BEDTIME Start: 12-20-2017 End: 05-06-2024 atorvastatin (LIPITOR) 20 MG tablet Indications: Preop cardiovascular exam , PAF (paroxysmal atrial fibrillation) ([facility]) , Anticoagulated , JAVED on CPAP , Obesity, unspecified classification, unspecified obesity type, unspecified whether serious comorbidity present 11/19/2018 Active azithromycin 250 mg oral tablet (2 sources) Macrolide Antimicrobial Start: 10-11-2022 Azithr omycin 250 MG as directed Orally 2 tabs po today, then 1 tab daily x 4 more days for 5 Oct, Active benzonatate 200 mg oral capsule (6 sources) Non-narcotic Antitussive Start: 10-19-2023 End: 05-29-2024 Benzonatate 200 mg capsule Active 200 MG PO 2-3 TIMES PER DAY as needed for cough May 29, 2024 12:00am betamethasone 0.5 mg/ml / clotrimazole 10 mg/ml topical cream (12 sources) Azole Antifungal, Corticosteroid Start: 10-18-2023 End: 04-04-2024 Clotrimazole-Betamet hasone 1-0.05 % cream Active 1 APPLIC TOPICAL Twice daily as needed for rash April 04, 2024 11:18am Start: 03-28-2023 Clotrimazole-B etamethasone 1-0.05 % 1 application Externally Twice a day, as needed for 30 days Mar, Active calcium carbonate 1250 mg oral tablet (20 sources) Start: 10-18-2023 End: 10-19-2023 take 1 tablet by mouth once daily Calcium Carbonate 500 mg calcium (1,250 mg) tablet Active 500 MG PO Daily October 18, 2023 11:00pm Start: 04-02-2020 take 500 mg by mouth twice daily Os-Avery 500 500 mg, Oral, BID, Refills(s) 0, Prophylaxis Start Date: 04/02/20 Status: Ordered take 1 tablet by ruma th once daily oscal 500 + D 500 mg / 125 IU 1 tablet orally once a day Active cefdinir 300 mg oral capsule (6 sources) Cephalosporin Antibacterial Start: 10-19-2023 End: 05-29-2024 take 1 capsule by mouth twice daily Cefdinir 300 mg capsule Active 300 MG PO Twice daily May 29, 2024 10:13am flecainide acetate 100 mg oral tablet (20 sources) Antiarrhythmic Start: 09-27-2024 take 1 tablet by mouth twice daily flecainide (TAMBOCOR) 100 MG tablet Indications: Persistent atrial fibrillation (HCC) Take 1 Tablet by mouth 2 times daily. 180 Tablet 3 09/27/2024 Active Start: 12-28-2023 flecainide (TA MBOCOR) 100 MG tablet Indications: Persistent atrial fibrillation (HCC) TAKE 1 TABLET TWICE A DAY 180 Tablet 3 12/28/2023 Active Start: 10-18-2023 take 0.5 tablet by m outh every twelve hours Flecainide 100 mg tablet Active MG PO October 17, 2023 11:00pm FreeTextSi.5 tablet Orally every 12 hrs; Note: Source Status: Taking; Provider: Elham Chan ( ) Start: 09-03-2020 End: 05-15-2023 take 1 tablet [...] hrs Active gabapentin 300 mg oral capsule (16 sources) Anti-epileptic Agent Start: 10-18-2023 Gabapenti n 300 mg capsule Active MG PO October 17, 2023 11:00pm FreeTextSi qam and 1 qpm and 2 qhs Orally 4 times a day; Note: Source Status: Taking; Provider: Elham Chan ( ) Start: 10-18-2023 Gabapentin Act elvira MG PO October 18, 2023 12:00am FreeTextSi [...] a day Active take 1 capsule by [facility] every twenty-four hours Gabapentin 100 MG 1 capsule Orally Once a day Active hydroCHLOROthiazide 25 mg oral tablet (20 sources) Thiazide Diuretic Start: 02-19-2024 Hydrochlorothiazide 25 mg tablet Active 0 .ROUTE .COMPLEX February 19, 2024 10:43am TAKE 1 TABLET DAILY Start: 11-19-2018 End: 02-19-2024 hydrochlorothiazide (HYDRODI URIL) 25 MG tablet Indications: Preop cardiovascular exam [...] Angiotensin Converting Enzyme Inhibitor Start: 09-07-2023 Lisinopril 40 mg tablet Active 0 .ROUTE .COMPLEX September 07, 2023 3:57pm TAKE 1 TABLET DAILY Start: 09-07-2023 Lisinopril Act elvira 0 .ROUTE .COMPLEX September 07, 2023 4:57pm TAKE 1 TABLET [...] follow instructions per packaging and physician's handout, [facility]/pharmacy #[id number], 183.8, cm, 07/29/22 14:15:00 EST, Height/Length Dosing, 145.3, kg, 07/29/22 14:15:00 EST, Weight Dosing Start Date: 07/29/22 Status: Ordered methylPREDNISolone 4 mg oral tablet (2 sources) Corticosteroid Start: 10-11-2022 methylPREDNISolone 4 MG as directed Orally for 6 days Oct, Active 24 hr metoprolol succinate 100 mg extended release oral tablet (20 sources) beta-Adrenergic Yadiel Start: 09-27-2024 take 1 tablet by mouth once daily metoprolol (TOPROL-XL) 100 mg XL tablet Take 1 Tablet by mouth daily. 90 Tablet 3 09/27/2024 Active Start: 11-19-2018 End: 02-17-2024 take 1 tablet by mouth once daily Metoprolol Succinate 100 mg tablet extended release 24 hr Active 1 TAB PO Daily October 17, 2023 11:00pm FreeTextSi tablet Orally Once a day; Note: Source Status: Taking; Provider: Elham Chan ( ) Start: 12-20-2017 take 1 tablet by ruma th once daily metoprolol tartrate 100 mg Tab 100 mg = 1 tab(s), Oral, Daily, Refills(s) 0, High blood pressure Start Date: 12/20/17 Status: Ordered Multivitamin (Multiple Vitamins) tablet (5 sources) Start: 10-18-2023 take 1 tablet by mouth once daily Multivitamin (Multiple Vitamins) tablet Active 1 TAB PO Daily October 17, 2023 11:00pm Start: 10-18-2023 take 1 tablet by ruma th once daily Multivitamin (Multiple Vitamins) tablet Active 1 TAB PO Daily October 18, 2023 12:00am Multivitamins and Minerals (3 sources) Start: 12-20-2017 Multivitamins and Minerals Oral, Daily, Refill(s) 0, Prophylaxis Start Date: 12/20/17 Status: Ordered olopatadine (20 sources) Histamine-1 Receptor Inhibitor Start: 12-25-2023 take 1 drop(s) into the eye(s) twice daily Olopatadine Active 1 DROPS OPHTHALMIC Twice daily December 25, 2023 3:36pm FreeTextSig: INSTILL 1 DROP INTO AFFECTED EYE TWICE A DAY FOR 30 DAYS; Note: Source Status: Taking; Refills: 3; Qty: 5 Milliliter; Provider: Elham Chan ( ) Start: 10-19-2023 End: 12-25-2023 take 1 drop(s) into the eye(s) twice daily Olopatadine Discontinued 1 DROPS OPHTHALMIC Twice daily October 19, 2023 10:48am December 25, 2023 3:36pm FreeTextSig: INSTILL 1 DROP INTO AFFECTED EYE TWICE A DAY FOR 30 DAYS; Note: Source Status: Taking; Refills: 3; Qty: 5 Milliliter; Provider: Elham Chan ( ) Start: 10-19-2023 take 1 drop(s) into the [...] FOR 30 DAYS for 30 Active Olopatadine 0.1 % drops (9 sources) Start: 12-25-2023 take 1 drop(s) into the eye(s) twice daily Olopatadine 0.1 % drops Active 1 DROPS OPHTHALMIC Twice daily December 25, 2023 2:36pm FreeTextSig: INSTILL 1 DROP INTO AFFECTED EYE TWICE A DAY FOR 30 DAYS; Note: Source Status: Taking; Refills: 3; Qty: 5 Milliliter; Provider: Elham Chan ( ) Start: 10-19-2023 End: 12-25-2023 take 1 drop(s) into the eye(s) twice daily Olopatadine 0.1 % drops Discontinued 1 DROPS OPHTHALMIC Twice daily October 19, 2023 9:48am December 25, 2023 2:36pm FreeTextSig: INSTILL 1 DROP INTO AFFECTED EYE TWICE A DAY FOR 30 DAYS; Note: Source Status: Taking; Refills: 3; Qty: 5 Milliliter; Provider: Elham Chan ( ) Start: 10-18-2023 End: 10-19-2023 take 1 drop(s) into the eye(s) twice daily Olopatadine 0.1 % drops Discontinued DROPS OPHTHALMIC October 17, 2023 11:00pm October 19, 2023 9:52am FreeTextSig: INSTILL 1 DROP INTO AFFECTED EYE TWICE A DAY FOR 30 DAYS; Note: Source Status: Taking; Refills: 3; Qty: 5 Milliliter; Provider: Elham Chan ( ) microencapsulated potassium chloride 20 meq extended release oral tablet (20 sources) Start: 09-27-2024 End: 09-27-2025 take 1 tablet by mouth twice daily potassium chloride SA (Klor-Con M20) 20 MEQ controlled release tablet Indications: PAF (paroxysmal atrial fibrillation) (HCC) , Anticoagulated , Preop cardiovascular exam , JAVED on CPAP , Obesity, unspecified class, unspecified obesity type, unspecified whether serious comorbidity present Take 1 Tablet by mouth 2 times daily. 180 Tablet 3 09/27/2024 09/27/2025 Active Start: 10-19-2023 Potassium Chlo ride (Klor-Con M20) 20 mEq tablet,ER particles/crystals Active 20 MEQ PO Twice daily October 18, 2023 11:00pm Start: 04-05-2023 End: 07-04-2023 Potassium Chloride (Klor-Con [...] with food Orally Once a day Active predniSONE 20 mg oral tablet (16 sources) Start: 05-26-2024 Prednisone 20 mg tablet Active 0 PO Daily 05 18May 26, 2024 12:00am Take 2 tabs x 3 days, take 1 tab x 3 days, take 1/2 tab x 3 days orally daily; Start: 05-08-2024 End: 05-26-2024 take 1 tablet by mouth once daily Prednisone 50 mg tablet Discontinued 50 MG PO Daily 5 May 07, 2024 11:00pm May 26, 2024 9:20am End: 03-29-2023 predniSONE (DELTASONE) 20 MG tablet Indications: Preop cardiovascular exam , PAF (paroxysmal atrial fibrillation) (HCC) , Anticoagulated , JAVED on CPAP , Obesity, unspecified classification, unspecified obesity type, unspecified whether serious comorbidity present prednisone 20 mg tablet 0 03/29/2023 Discontinued Psyllium Seed (Sugar) (Metam ucil (Sugar)) powder (5 sources) Start: 10-18-2023 Psyllium Seed (Sugar) (Metamucil (Sugar)) powder Active 1 TBSP PO Daily October 17, 2023 11:00pm Start: 10-18-2023 Psyllium Seed (Sugar) (Metamucil (Sugar)) powder Active 1 TBSP PO Daily October 18, 2023 12:00am sildenafil 25 mg oral tablet (7 sources) Phosphodiesterase 5 Inhibitor Start: 01-24-2023 sildenafil citrate (VIAGRA) 25 MG tablet Take 25 mg by mouth. 01/24/2023 Active Sodium Sulfate-Mag Sulfate-KCl (Sutab) 7300-798-756 MG TABS (5 sources) Start: 07-29-2022 Sodium Sulfate -Mag Sulfate-KCl (Sutab) 4066-077-302 MG TABS Take by mouth. 07/29/2022 Active Start: 07-29-2022 Sodium Sulfate -Mag Sulfate-KCl (Sutab) 4422-142-385 MG TABS Take by mouth. 0 07/29/2022 Active Super B Complex (6 sources) Start: 04-02-2020 take 1 tablet by mouth once daily Super B Complex 1 tab(s), Oral, Daily, Refill(s) 0, Prophylaxis Start Date: 04/02/20 Status: Ordered tiZANidine 4 mg oral tablet (7 sources) Central alpha-2 Adrenergic Agonist Start: 10-18-2023 take 1 tablet by mouth once daily at bedtime as needed Tizanidine 4 mg tablet Active 4 MG PO Once October 17, 2023 11:00pm FreeTextSi tablet as needed Orally qhs prn; Note: Source Status: Taking; Provider: Elham Ruano take 1 tablet by ruma once daily at bedtime as needed tiZANidine [...] (paroxysmal atrial fibrillation) (HCC) , Anticoagulated , JVAED on CPAP , Obesity, unspecified classification, unspecified [...] 5 mg-325 mg tablet 0 03/29/2023 Discontinued Albuterol Sulfate 90 mcg/actuation HFA aerosol inhaler (3 sources) Start: 05-08-2024 End: 05-26-2024 Albuterol Sulfate 90 mcg/actuation HFA aerosol inhaler Discontinued 2 INH INHALATION EVERY 4-6 HOURS as needed for shortness of breath or wheezing 6.7 May 07, 2024 11:00pm May 26, 2024 9:20am amLODIPine 10 mg oral tablet (16 sources) Dihydropyridine Calcium Channel Yadiel Start: 10-18-2023 End: 10-19-2023 take 1 tablet by mouth once daily Amlodipine 10 mg tablet Discontinued 10 MG PO Daily October 17, 2023 11:00pm October 19, 2023 9:34am AMLODIPINE BESYL ATE ORAL amLODIPine Besylate Not-Taking [...] Not-Taking/PRN ascorbic acid 500 mg oral capsule (20 sources) Vitamin C Start: 10-18-2023 End: 10-19-2023 Ascorbic Acid (Vitamin C) 500 mg capsule Discontinued MG PO October 17, 2023 11:00pm October 19, 2023 9:33am Start: 10-18-2023 End: 10-19-2023 Ascorbic Acid (Vitamin [...] aspirin 81 mg delayed release oral tablet (5 sources) Platelet Aggregation Inhibitor, Nonsteroidal Anti-inflammatory Drug Start: 10-18-2023 End: 10-19-2023 take 1 tablet by mouth once daily Aspirin 81 mg tablet,delayed release (DR/EC) Discontinued 81 MG PO Daily October 17, 2023 11:00pm October 19, 2023 9:33am baclofen 10 mg oral tablet (20 sources) [...] day Active carvedilol 3.125 mg oral tablet (11 sources) alpha-Adrenergic Yadiel, beta-Adrenergic Yadiel Start: 10-18-2023 End: 10-19-2023 take 1 tablet by mouth twice daily at mealtime Carvedilol 3.125 mg tablet Discontinued 3.125 MG PO Twice daily October 17, 2023 11:00pm October 19, 2023 9:34am must administer with a meal/food Carvedilol Not-T [...] / eicosapentaenoic acid 180 mg oral capsule (5 sources) Start: 10-18-2023 End: 10-19-2023 take 1 capsule by mouth once daily Docosahexaenoic Acid-Epa (Fish Oil) 120-180 mg capsule Discontinued 1 CAP PO Daily October 17, 2023 11:00pm October 19, 2023 9:35am doxycycline hyclate 100 mg oral capsule (3 sources) Tetracycline- class Drug Start: 05-08-2024 End: 05-26-2024 take 1 capsule by mouth twice daily Doxycycline Hyclate 100 mg capsule Discontinued 100 MG PO Twice daily 14 May 07, 2024 11:00pm May 26, 2024 9:21am Fish Oils (6 sources) Fish Oil Not-Taking/PRN [...] 4 mg disintegrating tablet 0 03/29/2023 Discontinued Psyllium (6 sources) [...] Chronic Chronic obstructive pulmonary disease and bronchiectasis (9 sources) Bronchitis, not specified as acute or chronic; 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: [Bronchitis] Episodic Complications of surgical procedures or medical [...] 05-27-2020 03-26-2019 Chronic Other aftercare (1 source) custodial (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; 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] Onset: 12-07-2022 Episodic Other [...] stomach and duodenum] Onset: 03-28-2018 Episodic Other lower respiratory disease (3 sources) Cough; 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: [Cough] 05-26-2024 Episodic Other male genital disorders (8 sources) Male erectile dysfunction, unspecified; 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: [Erectile [...] pulmonale] Onset: 05-02-2016 Episodic Residual codes; unclassified (11 sources) Sleep apnea; 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: [Sleep apnea, unspecified] [...] [Sacroiliitis, not elsewhere classified] Onset: 04-07-2022 Chronic Spondylosis; intervertebral disc disorders; other back problems (10 sources) Radiculopathy, lumbar region; 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: [Spinal stenosis, lumbar region without neurogenic claudication] Onset: 06-12-2017 10-24-2023 Episodic Unclassified (6 sources) Asymptomatic microscopic hematuria 10-27-2021 Unclassified (6 sources) Patient encounter status 10-27-2021 Unclassified (5 sources) History of malignant neoplasm of colon and/or rectum 07-29-2022 Unclassified (4 sources) LOW BACK PAIN, UNSPECIFIED; 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: [LOW BACK PAIN, UNSPECIFIED] Onset: 03-25-2022 Unclassified (1 source) Cough, unspecified; 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: [Cough, unspecified] Onset: 05-26-2024 Past or Other Problems Problem Classification Problem Date Documented Da te Episodic/Chronic Cancer of rectum and anus (6 sources) History of malignant neoplasm of rectum; [...] aftercare (20 sources) Drug therapy finding; 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: [custodial (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] Onset: 09-03-2020 Episodic [...] Onset: 07-10-2016 04-16-2020 Episodic Residual codes; unclassified (16 sources) Family history of cancer of colon; 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: [Family hx of colon cancer] Onset: 03-29-2023 07-29-2022 Episodic Unclassified (1 source) LOW BACK PAIN, UNSPECIFIED; 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: [LOW BACK PAIN, UNSPECIFIED] Onset: 03-22-2022 Unclassified (3 sources) Vaccine product containing only acellular Bordetella pertussis and Clostridium tetani and Corynebacterium diphtheriae antigens (medicinal product); 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: [Hydwazdcfb-gdhjiff-h ertussis, combined [DTP] [DtaP]] Onset: 02-13-2014 Viral infection (1 source) COVID-19 Results Test Name Value Interpretation Reference Range Facility X-ray reportOrdered By: Luz Bryan on 05-26-2024 Study report [facility] Main [address] [address] XRay Report Signed Patient: Evangelist Ybarra MR#: [id number] : 1955 Acct:[id number] Age/Sex: 68 / M ADM Date: 4 Loc: [facility] Room: Type: [facility] Attending Dr: Mariela Mosley APRN Copies to: Mariela Mosley APRN~ Ordering Provider: Mariela Mosley APRN Date of Service: 05/26/24 XR/XR chest 2V*: R05.9 - Cough, unspecified PA AND LATERAL CHEST: CLINICAL HISTORY: Productive cough for the past few weeks COMPARISON: 10/28/2014 There is no focal parenchymal consolidation, effusion or pneumothorax. The cardiac, hilar and mediastinal silhouettes are within normal limits. There is no vascular congestion. The visualized bony thorax is intact. There is moderate endplate spurring at the spine. XR/XR chest 2V* IMPRESSION: NO ACUTE CARDIOPULMONARY ABNORMALITY. Impression dictated by: Lupis Bryan M.D.05/26/2024 10:23 AM Dictation Location: [place] [address] Transcribed By: [facility] 05/26/24 1023 Dictated By: Lupis Bryan MD 05/26/24 1022 Signed By: 05/26/24 [facility] Work Phone: XR chest 2V*on 05-26-2024 XR chest 2V* [facility] Main [address] [address] XRay Report Signed Patient: Evangelist Ybarra MR#: [id number] : 1955 Acct:[id number] Age/Sex: 68 / M ADM Date: 05/26/24 Loc: [facility] Room: Type: [facility] Attending Dr: Mariela Mosley APRN Copies to: Mariela Mosley APRN Ordering Provider: Mariela Mosley APRN Date of Service: 05/26/24 XR/XR chest 2V*: R05.9 - Cough, unspecified PA AND LATERAL CHEST: CLINICAL HISTORY: Productive cough for the past few weeks COMPARISON: 10/28/2014 There is no focal parenchymal consolidation, effusion or pneumothorax. The cardiac, hilar and mediastinal silhouettes are within normal limits. There is no vascular congestion. The visualized bony thorax is intact. There is moderate endplate spurring at the spine. XR/XR chest 2V* IMPRESSION: NO ACUTE CARDIOPULMONARY ABNORMALITY. Impression dictated by: Lupis Bryan M.D.05/26/2024 10:23 AM Dictation Location: [place] [address] Transcribed By: [facility] 05/26/24 1023 Dictated By: Lupis Bryan MD 05/26/24 1022 Signed By: 05/26/24 1023 Normal [facility] Influenza virus A and B and SARS-CoV-2 (COVID-19) RNA panel - Respiratory system specon 05-08-2024 Influenza virus A and B RNA and SARS-CoV-2 (COVID-19) N gene panel ANNIE+probe (Resp) Influenza virus A and B and SARS-CoV-2 (COVID-19) RNA panel - Respiratory system spec [facility] Laboratory - Microbiology an d Antimicrobial susceptibilityon 05-08-2024 SARS-CoV-2 (COVID-19) RNA ANNIE+probe Ql (Unsp spec) Negative [facility] No Panel Informationon 05-08 POC Influenza B (ANNIE) Negative [facility] INR in Platelet poor plasma by Coagulation assayon 04-29-2024 INR Coag (PPP) [Relative time] 2.42 {INR} [facility] Comment on above: DESIRED INR:2.0-3.0 CONDITIONS NOT LISTED BELOW2.5-3.5 FOR PROSTHETIC HEART VALVE REPLACEMENT2.5-3.5 RECURRENT THROMBOSIS INR Coag (PPP) [Relative time] INR in Platelet poor plasma by Coagulation assay [facility] Comment on above: DESIRED INR:2.0-3.0 CONDITIONS NOT LISTED BELOW2.5-3.5 FOR PROSTHETIC HEART VALVE REPLACEMENT2.5-3.5 RECURRENT THROMBOSIS Prothrombin time (PT)on 04-10 PT Coag (PPP) [Time] 23.5 s High 9.0-11.6 [facility] PT Coag (PPP) [Time] Prothrombin time (PT) High 9.0-11.6 [facility] Progress Noteson 04-15-2024 [employer]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 AMLODIPINE BESYLATE [...] declined Stress: No Stress Concern Present (03/27/2023) [employer] - Occupational Stress Questionnaire Feeling of Stress : Not at all Social Connections: Moderately Integrated (03/27/2023) Social Connection and Isolation Panel [NHANES] Frequency of Communicatio (more content not included)... Normal [facility] Ambulatory Visit Summaryon 0 01-23-2024 Ambulatory [...] MARCELINO When: Only if needed Where: [address] [place] [address] [phone] Medications What How Much When Instructions Unchanged [...] ? Ne (more content not included)... Normal [facility] Provider Letteron 01-23-2024 Provider Letter Provider Letter DONALD LIZARRAGA, [address] [place] [id number] Re: EVANGELIST YBARRA Date of : [address] ELHAM JACKSON, EVANGELIST SWANSON was evaluated at [facility] 01/30/2024 10:00:00 As this patient has been stable, they will be released back to your care. We request that you continue to check PSA annually for prostate cancer screening Should the patient develop new symptoms, worsening condition, or abnormal imaging/labs in the future, do not hesitate to refer them back. Thanks! Provider Signature: Cathie Hernandez PA-C Physician Certified Ophthalmic Technician [facility] [address] [place] [address] Normal [facility] Urology Office/Clinic Noteon 01-23-2024 Urology Office/Clinic Note Urology Office/Clinic Note Chief Complaint 1 year follow up with PSA HPI Staff 68 year old patient presents today for a 1 year follow up with PSA. No recent PSA on [facility], TB, [facility], or [facility]. 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 Not a [...] URL Only if needed [address] [place] [address] [phone] Additional Instructions: Patient Education Erectile Dysfunction Documentation recorded by the juan david Caceres accurately reflects the services(s) I performed and decisions made by me. Authenticated by Cathie Hernandez PA-C on 01/23/2024 14:33:17. I, Krystyna Caceres, personally scribed for Cathie Hernandez PA-C on 01/23/2024 14:31:15. . Problem List/Past [...] tab(s), Oral, Daily olopatadine 0.7% ophthalmic solution Os-Aevry 500, 500 mg, Oral, BID Super B Complex, 1 tab(s), Oral, Daily Viagra 25 mg Tab, 25 mg= 1 tab(s), Oral, As Directed, PRN, 2 refills warfarin Allergies No Known Medication Allergies Social History Alcohol - De (more content not included)... Normal [facility] Comment on above: Result Comment: Elec tronically Signed By: CATHIE HERNANDEZ PA-C\.br\Date and Time Signed: 01/23/24 14:33 EDT\.br\Electronically [...] AM) Normal Negative [facility] UA Auto SS [place].plasma/Lith ium.RBC (Bld) [Mass ratio] 0-3 /HPF Normal 0-3/HPF [facility] UA Auto SS Nitrite Ql (U) Negative (01/24/23 10:19 AM) Normal Negative [facility] UA Auto SS pH (U) 5.0 *NA* (01/24/23 10:19 AM) Invalid Interpretation Code 5.0 - 9.0 [facility] Auto SS Protein (U) [Mass/Vol] Negative (01/24/23 10:19 AM) Normal Negative [facility] UA Auto SS Specific gravity (U) [Rel density] >=1.030 *NA* (01/24/23 10:19 AM) Invalid Interpretation Code 1.005 - 1.030 [facility] UA Auto SS UA Spec Desc Random Urine (01/24/23 10:19 AM) Normal [facility] UA Auto SS Urobilinogen Qn (U) 0.1213789 {Anne'U}/dL Normal 0.0 - 1.0 EU/dL [facility] UA Auto SS WBC Auto Ql (U) Negative (01/24/23 10:19 AM) Normal Negative [facility] UA Auto SS WBC LM.HPF (Urine sed) [#/Area] 0-5 /HPF Normal 0-5/HPF [facility] UA Auto SS XR CSPINE MIN 4 [...] UNA SEARS Date: 2022-11-10 09:46 Normal [facility] CBC AUTO DIFFon 2022 BASO # 0.0 103/ul Normal 0.0-0.1 [facility] Comment on above: Performed By: #### C BC #### [facility] [address] [place] [address] Jason Pearson Basophils/100 WBC (Bld) 0.7 % Normal 0.2-2.0 [facility] Comment on above: Performed By: #### C BC #### [facility] [address] [place] [address] Jason Pearson EO # 0.2 103/ul Normal 0.0-0.7 [facility] Comment on above: Performed By: #### C BC #### [facility] [address] [place] [address] Dr. aJson Pearson Eosinophils/100 WBC (Bld) 3.7 % Normal 0.9-7.0 [facility] Comment on above: Performed By: #### C BC #### [facility] [address] [place] [address] Dr. Jason Pearson Erythrocyte distribution width (RBC) [Ratio] 14.0 % Normal 11.0-15.0 [facility] Comment on above: Performed By: #### C BC #### [facility] [address] [place] [address] Dr. Jason Pearson Hematocrit (Bld) [Volume fraction] 41.0 % Critically low 42.0-54.0 [facility] Comment on above: Performed By: #### C BC #### [facility] [address] [place] [address] Dr. Jason Pearson Hemoglobin (Bld) [Mass/Vol] 13.8 g/dL Critically low 14.0-18.0 [facility] Comment on above: Performed By: #### C BC #### [facility] [address] [place] [address] Dr. Jason Pearson IG # 0.01 10e3/ul Normal 0.00-0.03 [facility] Comment on above: Performed By: #### C BC #### [facility] [address] [place] [address] Dr. Jason Pearson IG % 0.2 % Normal 0.0-0.5 [facility] Comment on above: Performed By: #### C BC #### [facility] [address] [place] [address] Dr. Jason Pearson LYMPH # 1.3 103/ul Normal 1.2-3.8 [facility] Comment on above: Performed By: #### C BC #### [facility] [address] [place] [address] Dr. Jason Pearson Lymphocytes/100 WBC (Bld) 22.3 % Normal 20.5-60.0 [facility] Comment on above: Performed By: #### C BC #### [facility] [address] [place] [address] Dr. Jason Pearson MANUAL DIFF REQ NO Normal [facility] Comment on above: Performed By: #### C BC #### [facility] [address] [place] [address] Dr. Jason Pearson MCH (RBC) [Entitic mass] 32.6 pg Normal 25.9-34.0 [facility] Comment on above: Performed By: #### C BC #### [facility] [address] [place] [address] Dr. Jason Peasron MCHC (RBC) [Mass/Vol] 33.7 g/dL Normal 29.9-35.2 [facility] Comment on above: Performed By: #### C BC #### [facility] [address] [place] [address] Dr. Jason Pearson MCV (RBC) [Entitic vol] 96.9 fL Critically high 80.0-94.0 [facility] Comment on above: Performed By: #### C BC #### [facility] [address] [place] [address] Dr. Jason Pearson MONO # 0.6 103/ul Normal 0.3-0.8 [facility] Comment on above: Performed By: #### C BC #### [facility] [address] [place] [address] Dr. Jason Pearson Monocytes/100 WBC (Bld) 10.5 % Normal 1.7-12.0 [facility] Comment on above: Performed By: #### C BC #### [facility] [address] [place] [address] Dr. Jason Pearson NEUT # 3.7 103/ul Normal 1.4-6.5 [facility] Comment on above: Performed By: #### C BC #### [facility] [address] [place] [address] Dr. Jason Pearson Neutrophils/100 WBC (Bld) 62.6 % Normal 43.0-75.0 [facility] Comment on above: Performed By: #### C BC #### [facility] [address] [address] [address] Jason Pearson Platelet mean volume (Bld) [Entitic vol] 9.9 fL Normal 9.5-13.5 [facility] Comment on above: Performed By: #### C BC #### [facility] [address] [address] [address] Jason Pearson PLT 181 103/ul Normal 150-450 [facility] Comment on above: Performed By: #### C BC #### [facility] [address] [address] [address] Jason Pearson RBC 4.23 106/ul Critically low 4.70-6.10 [facility] Comment on above: Performed By: #### C BC #### [facility] [address] [address] [address] Jason Pearson WBC 5.9 103/ul Normal 4.0-11.0 [facility] Comment on above: Performed By: #### C BC #### [facility] [address] [address] [address] Jason Pearson LIPID PROFILEon 2022 CHOL-HDL RATIO NORM SEE BELOW Normal [facility] Comment on above: Result Comment: 3.3 - 4.4 LOW RISK 4.4 - 7.1 AVERAGE RISK 7.1 - 11.0 MODERATE RISK >11.0 HIGH RISK Performed By: #### C MP, LIPID ####[facility] [id number] [id number] Pearson Cholesterol [Mass/Vol] 163 mg/dL Normal <=200 [facility] Comment on above: Performed By: #### C MP, LIPID ####[facility] [address] [id number] Pearson Cholesterol in HDL [Mass/Vol] 49 mg/dL Normal 40-60 [facility] Comment on above: Performed By: #### C MP, LIPID ####[facility] [address] [id number][address] Jason Pearson Cholesterol in LDL [Mass/Vol] 74.6 mg/dL Normal [facility] Comment on above: Performed By: #### C MP, LIPID ####[facility] [address] [id number]. Jason Pearson Cholesterol.total/C holesterol in HDL [Mass ratio] 3.3 {ratio} Normal [facility] Comment on above: Performed By: #### C MP, LIPID ####[facility] [address] [id number][address] Jason Pearson HDL NORMAL > or = 60 mg/dl - LO W CARDIOVASCULAR RISK <40 mg/dl - HIGH CARDIOVASCULAR RISK Normal [facility] Comment on above: Performed By: #### C MP, LIPID ####[facility] [address] [id number]. Jason Pearson LDL CALC NORMAL SEE BELOW Normal [facility] Comment on above: Result Comment: <100 mg/dl OPTIMAL 100 - 129 mg/dl NEAR OR ABOVE OPTIMAL 130 - 159 mg/dl BORDERLINE HIGH 160 - 189 mg/dl HIGH >190 mg/dl VERY HIGH Performed By: #### C MP, LIPID ####[facility] [address] [address]Dr. Jason Pearson Triglyceride [Mass/Vol] 197 mg/dL Critically high <=150 [facility] Comment on above: Performed By: #### C MP, LIPID ####[facility] [id number] [id number]. Jason Pearson VLDL CALC 39.4 mg/dL Normal [facility] Comment on above: Performed By: #### C MP, LIPID ####[facility] [address] [id number]. Jason Pearson MICROALBUMIN, RAND URon 03-0 mALB 1.3 mg/L Normal <=30.0 [facility] Comment on above: Performed By: #### M ALBR ####[facility] [address] [id number]. Jason Pearson PROF 14(COMP METB)on 023 Albumin [Mass/Vol] 3.7 g/dL Normal 3.4-5.0 [facility] Comment on above: Performed By: #### C MP, LIPID #### [facility] [address] [place] [address] Dr. Jason Pearson Albumin/Globulin [Mass ratio] 1.0 {ratio} Normal [facility] Comment on above: Performed By: #### C MP, LIPID #### [facility] [address] [address] [address] Jason Pearson ALP [Catalytic activity/Vol] 56 U/L Normal 46-116 [facility] Comment on above: Performed By: #### C MP, LIPID #### [facility] [address] [place] [address] Dr. Jason Pearson ALT [Catalytic activity/Vol] 43 U/L Normal 16-63 [facility] Comment on above: Performed By: #### C MP, LIPID #### [facility] [address] [place] [address] Dr. Jason Pearson Anion gap [Moles/Vol] 11.2 mmol/L Normal [facility] Comment on above: Performed By: #### C MP, LIPID #### [facility] [address] [place] [address] Dr. Jason Pearson AST [Catalytic activity/Vol] 24 U/L Normal 15-37 [facility] Comment on above: Performed By: #### C MP, LIPID #### [facility] [address] [place] [address] Dr. Jason Pearson Bilirubin [Mass/Vol] 0.9 mg/dL Normal 0.2-1.0 [facility] Comment on above: Performed By: #### C MP, LIPID #### [facility] [address] [place] [address] Dr. Jason Pearson Calcium [Mass/Vol] 9.6 mg/dL Normal 8.5-10.1 [facility] Comment on above: Performed By: #### C MP, LIPID #### [facility] [address] [place] [address] Dr. Jason Pearson Chloride [Moles/Vol] 106 mmol/L Normal 98-107 [facility] Comment on above: Performed By: #### C MP, LIPID #### [facility] [address] [place] [address] Dr. Jason Pearson CO2 [Moles/Vol] 30.1 mmol/L Normal 21.0-32.0 [facility] Comment on above: Performed By: #### C MP, LIPID #### [facility] [address] [address] [address] Jason Pearson Creatinine [Mass/Vol] 1.00 mg/dL Normal 0.70-1.30 [facility] Comment on above: Performed By: #### C MP, LIPID #### [facility] [address] [place] [address] Dr. Jason Pearson EGFR-AF CAMBODIAN >60 Normal >=60 [facility] Comment on above: Performed By: #### C MP, LIPID #### [facility] [address] [place] [address] Dr. Jason Pearson EGFR-NON AF CAMBODIAN >60 Normal >=60 [facility] Comment on above: Performed By: #### C MP, LIPID #### [facility] [address] [place] [address] Dr. Jason Pearson Globulin (S) [Mass/Vol] 3.6 g/dL Normal [facility] Comment on above: Performed By: #### C MP, LIPID #### [facility] [address] [place] [address] Dr. Jason Pearson Glucose [Mass/Vol] 110 mg/dL Critically high 74-106 [facility] Comment on above: Performed By: #### C MP, LIPID #### [facility] [address] [place] [address] Dr. Jason Pearson Potassium [Moles/Vol] 4.3 mmol/L Normal 3.5-5.1 [facility] Comment on above: Performed By: #### C MP, LIPID #### [facility] [address] [place] [address] Dr. Jason Pearson Protein [Mass/Vol] 7.3 g/dL Normal 6.4-8.2 [facility] Comment on above: Performed By: #### C MP, LIPID #### [facility] [address] [address] [address] Jason Pearson Sodium [Moles/Vol] 143 mmol/L Normal 136-145 [facility] Comment on above: Performed By: #### C MP, LIPID #### [facility] [address] [address] [address] Jason Pearson Urea nitrogen [Mass/Vol] 15.0 mg/dL Normal 7.0-18.0 [facility] Comment on above: Performed By: #### C MP, LIPID #### [facility] [address] [address] [address] Jason Pearson Urea nitrogen/Creatinine [Mass ratio] 15.0 mg/mg Normal [facility] Comment on above: Performed By: #### C MP, LIPID #### [facility] [address] [address] [address] Jason Pearson PROTIMEon 06-28-2022 INR Coag (PPP) [Relative time] 1.11 {INR} Normal [facility] Comment on above: Performed By: #### P T ####[facility] [address] [address]Dr. Jason Pearson INR GUIDELINES SEE BELOW Normal [facility] Comment on above: Result Comment: KOFI RED INR: 2.0 - 3.0 CONDITIONS NOT LISTED BELOW 2.5 - 3.5 FOR PROSTHETIC HEART VALVE REPLACEMENT 2.5 - 3.5 RECURRENT THROMBOSIS Performed By: #### P T ####[facility] [id number] [id number]. Jason Pearson PT Coag (PPP) [Time] 11.9 s Critically high 9.0-11.6 [facility] Comment on above: Performed By: #### P T ####[facility] [address] [id number]. Jason Pearson PROTIMEon 03-22-2022 INR Coag (PPP) [Relative time] 1.32 {INR} Normal [facility] Comment on above: Performed By: #### P T #### [facility] [address] [place] [address] Dr. Jason Pearson INR GUIDELINES SEE BELOW Normal [facility] Comment on above: Result Comment: KOFI RED INR: 2.0 - 3.0 CONDITIONS NOT LISTED BELOW 2.5 - 3.5 FOR PROSTHETIC HEART VALVE REPLACEMENT 2.5 - 3.5 RECURRENT THROMBOSIS Performed By: #### P T #### [facility] [address] [address] [address] Jason Pearson PT Coag (PPP) [Time] 14.0 s Critically high 9.0-11.6 [facility] Comment on above: Performed By: #### P T #### [facility] [address] [place] [address] Dr. Jason Pearson PROTIMEon 02-07-2022 INR Coag (PPP) [Relative time] 1.08 {INR} Normal [facility] Comment on above: Performed By: #### P T #### [facility] [address] [place] [address] Dr. Jason Pearson INR GUIDELINES SEE BELOW Normal [facility] Comment on above: Result Comment: KOFI RED INR: 2.0 - 3.0 CONDITIONS NOT LISTED BELOW 2.5 - 3.5 FOR PROSTHETIC HEART VALVE REPLACEMENT 2.5 - 3.5 RECURRENT THROMBOSIS Performed By: #### P T #### [facility] [address] [place] [address] Dr. Jason Pearson PT Coag (PPP) [Time] 11.6 s Normal 9.0-11.6 [facility] Comment on above: Performed By: #### P T #### [facility] [address] [place] [address] Dr. Jason Pearson XR HIP RT INJon [...] RUPERT MOON Date: 2022-02-07 11:09 Normal [facility] Initial Visit (Gastroenterol ogy)on 03-28-2018 Initial Visit [...] from the patient and documented on the [facility] health history questionnaire. Pertinent positives and negatives [...] MG Oral Tablet; TAKE 1 TABLET DAILY;Therapy: (Recorded:[id number]) to Recorded Dispense: 0 Days ; #: Sufficient Tablet; Refill: 0; KP = N; Record; Last Updated By: Toyin Angeles; 03/28/2018 9:14:26 AM Flecainide Acetate 100 MG Oral Tablet; TAKE 1 TABLET EVERY 12 HOURS DAILY;Therapy: (Recorded:[id number]) to Recorded Dispense: 0 Days ; #: Sufficient Tablet; Refill: 0; KP = N; Record; Last Updated By: Toyin Angeles; 03/28/2018 9:14:26 AM HydroCHLOROthiazide 25 MG Oral Tablet; TAKE 1 TABLET DAILY;Therapy: (Recorded:[id number]) to Recorded Dispense: 0 Days ; #: Sufficient Tablet; Refill: 0; KP = N; Record; Last Updated By: Toyin Angeles; 03/28/2018 9:14:26 AM Imodium A-D CAPS;Therapy: (Recorded:[id number]) to Recorded Dispense: 0 Days ; #: Sufficient CAPS; Refill: 0; KP = N; Record; Last Updated By: Toyin Angeles; 03/28/2018 9:14:26 AM Klor-Con M20 20 MEQ Oral Tablet Extended Release; TAKE 2 TABLETS TWICE DAILY;Therapy: (Recorded:[id number]) to Recorded Dispense: 0 Days ; #: Sufficient Tablet Extended Release; Refill: 0; KP = N; Record; Last Updated By: Toyin Angeles; 03/28/2018 9:14:26 AM Lisinopril 40 MG Oral Tablet; TAKE 1 TABLET DAILY;Therapy: (Recorded:95Rge6694) to Recorded Dispense: 0 Days ; #: Sufficient Tablet; Refill: 0; KP = N; Record; Last Updated By: Toyin Angeles; 03/28/2018 9:14:26 AM Loratadine 10 MG Oral Tablet; TAKE 1 TABLET DAILY;Therapy: (Recorded:[id number]) to Recorded Dispense: 0 Days ; #: Sufficient Tablet; Refill: 0; KP = N; Record; Last Updated By: Toyin Angeles; 03/28/2018 9:14:26 AM Metoprolol Tartrate 100 MG Oral Tablet; TAKE 1 TABLET DAILY;Therapy: (Recorded:02Hpl2536) to Recorded Dispense: 0 Days ; #: Sufficient Tablet; Refill: 0; KP = N; Record; Last Updated By: Toyin Angeles; 03/28/2018 9:14:26 AM Multivitamins TABS;Therapy: (Recorded:28Mar2018) to Recorded Dispense: 0 Days ; #: Sufficient TABS; Refill: 0; KP = N; Record; Last Updated By: Toyin Angeles; 03/28/2018 9:14:26 AM Tamsulosin HCl - 0.4 MG Oral Capsule;Therapy: (Recorded:[id number]) to Recorded Dispense: 0 Days ; #: Sufficient Capsule; Refill: 0; KP = N; Record; Last Updated By: Toyin Angeles; 03/28/2018 9:14:26 AM Vitamin B-12 ER 1500 MCG Oral Tablet Extended Release;Therapy: (Recorded:28Mar2018) to Recorded Dispense: 0 Days ; #: Sufficient TBCR; Refill: 0; KP = N; Record; Last Updated By: Toyin Angeles; 03/28/2018 9:14:26 AM Vitamin D3 2000 UNIT Oral Tablet;Therapy: (Recorded:46Nhn8841) to Recorded Dispense: 0 Days ; #: Sufficient Tablet; Refill: 0; KP = N; Record; Last Updated By: Toyin Angeles; 03/28/2018 9:14:26 AM Warfarin Sodium 5 MG Oral Tablet; TAKE 1 TABLET DAILY;Therapy: (Recorded:28Mar2018) to Recorded Dispense: 0 Days ; #: Sufficient Tablet; Refill: 0; KP = N; Record; Last Updated By: Toyin Angeles; 03/28/2018 9:14:26 AM Vitals Vital Signs Recorded: 28Mar2018 09:12AMHeart Wbjk17Ecjpvqrwotq80Xdmfmqlo13 3Oznbbdovj24Jsshav8 ft 2 ghKqaubm558 lb 6 ozBMI Ngsvildlyi35.52BSA Calculated2.67 Physical ExamConstitutional General appearance: In no [...] diarrhea; KP = N; Verified Transmission to [id number]; Last Updated By: Rafi Rhodes; 03/28/2018 9:44:38 AM Provider ImpressionsSubmucosal duodenal lesion [...] MG Oral Tablet; TAKE 1 TABLET DAILY;Therapy: (Recorded:20Lug3403) to RecordedCholestyramine Light 4 GM Oral Packet; MIX THE CONTENTS OF 1 POWDER PACKETWITH 2-6 OZ OF NONCARBONATED BEVERAGE AND SWALLOW ONCE DAILY;Therapy: [id number] to (Evaluate:39Rgm8871) Requested for: 30Agt0953; LastRx:[id number] OrderedFlecainide Acetate 100 MG Oral Tablet; TAKE 1 TABLET EVERY 12 HOURS DAILY;Therapy: (Recorded:83Iiw5009) to RecordedHydroCHLOROthiazide 25 MG Oral Tablet; TAKE 1 TABLET DAILY;Therapy: (Recorded:62Ixk2411) to RecordedImodium A-D CAPS (Loperamide HCl);Therapy: (Recorded:19Joc9735) to RecordedKlor-Con M20 20 MEQ Oral Tablet Extended Release; TAKE 2 TABLETS TWICE DAILY;Therapy: (Recorded:75Ciq7147) to RecordedLisinopril 40 MG Oral Tablet; TAKE 1 TABLET DAILY;Therapy: (Recorded:75Cdn6893) to RecordedLoratadine 10 MG Oral Tablet; TAKE 1 TABLET DAILY;Therapy: (Recorded:17Wnk0076) to RecordedMetoprolol Tartrate 100 MG Oral Tablet; TAKE 1 TABLET DAILY;Therapy: (Recorded:82Eih3489) to RecordedMultivitamins TABS;Therapy: (Recorded:23Opo2981) to RecordedTamsulosin HCl - 0.4 MG Oral Capsule;Therapy: (Recorded:64Xuu9675) to RecordedVitamin B-12 ER 1500 MCG Oral Tablet Extended Release;Therapy: (Recorded:86Dme1085) to RecordedVitamin D3 2000 UNIT Oral Tablet;Therapy: (Recorded:20Zcq8195) to RecordedWarfarin Sodium 5 MG Oral Tablet; TAKE 1 TABLET DAILY;Therapy: (Recorded:79Deg1420) to Recorded Signatures Electronically signed by : Devin Greer DO; Mar 28 2018 9:51AM EST (Author) Normal [facility] Vital Signs Date Time Vital Sign Value Performing Clinician Facility 05-29-2024 09:52-0500 Body height 187.96 cm Donald Lizarraga MD Work Phone: [facility] 05-29-2024 09:52-0500 Body mass index (BMI) [Ratio] 38.4 kg/m2 Donald Lizarraga MD Work Phone: [facility] 05-29-2024 09:52-0500 Body temperature 98.5 [degF] Donald Lizarraga MD Work Phone: [facility] 05-29-2024 09:52-0500 Body weight 135.62 kg Donald Lizarraga MD Work Phone: [facility] 05-29-2024 09:52-0500 Diastolic blood pressure 81 mm[Hg] Donald Lizarraga MD Work Phone: [facility] 05-29-2024 09:52-0500 Heart rate 73 /min Donald iLzarraga MD Work Phone: [facility] 05-29-2024 09:52-0500 SaO2% (BldA) [Mass fraction] 98 % Donald Lizarraga MD Work Phone: [facility] 05-29-2024 09:52-0500 Systolic blood pressure 137 mm[Hg] Donald Lizarraga MD Work Phone: [facility] 05-26-2024 09:18-0500 Body height 187.96 cm Donald Lizarraga MD Work Phone: [facility] 05-26-2024 09:18-0500 Body mass index (BMI) [Ratio] 38.5 kg/m2 Donald Lizarraga MD Work Phone: [facility] 05-26-2024 09:18-0500 Body temperature 98.1 [degF] Donald Lizarraga MD Work Phone: [facility] 05-26-2024 09:18-0500 Body weight 136.13 kg Donald Lizarraga MD Work Phone: [facility] 05-26-2024 09:18-0500 Diastolic blood pressure 77 mm[Hg] Donald Lizarraga MD Work Phone: [facility] 05-26-2024 09:18-0500 Heart rate 73 /min Donald Lizarraga MD Work Phone: [facility] 05-26-2024 09:18-0500 Respiratory rate 18 /min Donald Lizarraga MD Work Phone: [facility] 05-26-2024 09:18-0500 SaO2% (BldA) [Mass fraction] 96 % Donald Lizarraga MD Work Phone: [facility] 05-26-2024 09:18-0500 Systolic blood pressure 127 mm[Hg] Donald Lizarraga MD Work Phone: [facility] 05-08-2024 09:24-0400 Body height 187.[address] [facility] 05-08-2024 09:24-0400 Body mass index (BMI) [Ratio] 38.8 kg/m2 [facility] 05-08-2024 09:24-0400 Body temperature 98 [degF] [facility] 05-08-2024 09:24-0400 Body weight 137.[address] [facility] 05-08-2024 09:24-0400 Diastolic blood pressure 73 mm[Hg] [facility] 05-08-2024 09:24-0400 Heart rate 70 /min [facility] 05-08-2024 09:24-0400 Respiratory rate 18 /min [facility] 05-08-2024 09:24-0400 SaO2% (BldA) [Mass fraction] 98 % [facility] 05-08-2024 09:24-0400 Systolic blood pressure 167 mm[Hg] [facility] 01-23-2024 14:11-0400 Blood Pressure Location CATHIE TIANA [facility] 01-23-2024 14:11-0400 Body temperature 97.88 [degF] CATHIE TIANA [facility] 01-23-2024 14:11-0400 Diastolic blood pressure 74 mm[Hg] CATHIE TIANA [facility] 01-23-2024 14:11-0400 Heart rate 67 /min CATHIE TIANA [facility] 01-23-2024 14:11-0400 Respiratory rate 16 /min CATHIE TIANA [facility] 01-23-2024 14:11-0400 Systolic blood pressure 138 mm[Hg] CATHIE TIANA [facility] 10-19-2023 10:19-0400 Body height 187.[address] [facility] 10-19-2023 10:19-0400 Body mass index (BMI) [Ratio] 40.1 kg/m2 [facility] 10-19-2023 10:19-0400 Body weight 141.[address] [facility] 10-19-2023 10:19-0400 Diastolic blood pressure 84 mm[Hg] [facility] 10-19-2023 10:19-0400 Heart rate 71 /min [facility] 10-19-2023 10:19-0400 SaO2% (BldA) [Mass fraction] 98 % [facility] 10-19-2023 10:19-0400 Systolic blood pressure 132 mm[Hg] [facility] 07-13-2023 15:30-0500 Body height 187.96 cm Donald Lizarraga Other [facility] Other 07-13-2023 15:30-0500 Body mass index (BMI) [Ratio] 40.18 kg/m2 Donald Lizarraga Other [facility] Other 07-13-2023 15:30-0500 Body weight 141.98 kg Donald Lizararga Other [facility] Other 07-13-2023 15:30-0500 Diastolic blood pressure 86 mm[Hg] Donald Lizarraga Other [facility] Other 07-13-2023 15:30-0500 Systolic blood pressure 142 mm[Hg] Donald Lizarraga Other [facility] Other 01-24-2023 10:00-0400 Blood Pressure Location CATHIE TIANA [facility] 01-24-2023 10:00-0400 Diastolic blood pressure 80 mm[Hg] CATHIE TIANA [facility] 01-24-2023 10:00-0400 Heart rate 72 /min CATHIE AZEVEDORY [facility] 01-24-2023 10:00-0400 Respiratory rate 16 /min CATHIE HERNANDEZ [facility] 01-24-2023 10:00-0400 Systolic blood pressure 130 mm[Hg] CATHIE HERNANDEZ [facility] 10-06-2022 10:17-0400 Diastolic blood pressure 78 mm[Hg] Daigle SALAM [facility] 10-06-2022 10:17-0400 Heart rate 69 /min Daigle SALAM [facility] 10-06-2022 10:17-0400 Respiratory rate 16 /min Daigle SALAM [facility] 10-06-2022 10:17-0400 SaO2% (BldA) [Mass fraction] 99 % Daigle SALAM [facility] 10-06-2022 10:17-0400 Systolic blood pressure 122 mm[Hg] Daigle SALAM [facility] 10-06-2022 10:05-0400 Diastolic blood pressure 76 mm[Hg] Daigle SALAM [facility] 10-06-2022 10:05-0400 Heart rate 67 /min Daigle SALAM [facility] 10-06-2022 10:05-0400 Respiratory rate 18 /min Daigle SALAM [facility] 10-06-2022 10:05-0400 SaO2% (BldA) [Mass fraction] 99 % Daigle SALAM [facility] 10-06-2022 10:05-0400 Systolic blood pressure 135 mm[Hg] Daigle SALAM [facility] 10-06-2022 10:00-0400 Diastolic blood pressure 70 mm[Hg] Daigle SALAM [facility] 10-06-2022 10:00-0400 Heart rate 66 /min Daigle SALAM [facility] 10-06-2022 10:00-0400 Systolic blood pressure 134 mm[Hg] Daigle SALAM [facility] 10-06-2022 09:55-0400 Respiratory rate 16 /min Daigle SALAM [facility] 10-06-2022 09:52-0400 Body temperature 97.7 [degF] Daigle SALAM [facility] 10-06-2022 09:40-0400 Respiratory rate 1 /min Daigle SALAM [facility] 10-06-2022 08:21-0400 Blood Pressure Location Daigle SALAM [facility] 10-06-2022 08:21-0400 Body temperature 97.88 [degF] Daigle SALAM [facility] 07-29-2022 14:15-0500 Diastolic blood pressure 88 mm[Hg] Eliciagurwinder GarciaHipolito [facility] 07-29-2022 14:15-0500 Mean blood pressure 105 mm[Hg] Elicia Hipolito [facility] 07-29-2022 14:15-0500 Systolic blood pressure 138 mm[Hg] Elicia Hipolito [facility] 07-29-2022 14:11-0500 Blood Pressure Location Elicia Hipolito [facility] 01-20-2023 14:11-0500 Body temperature 97.88 [degF] Elicia Mcmillan [facility] 07-29-2022 14:11-0500 Diastolic blood pressure 87 mm[Hg] Elicia Mcmillan [facility] 07-29-2022 14:11-0500 Heart rate 77 /min Elicia Mcmillan [facility] 07-29-2022 14:11-0500 Systolic blood pressure 147 mm[Hg] Elicia Mcmillan [facility] 07-26-2022 10:45-0500 Body height 187.96 cm Donald Lizarraga Other [facility] Other 07-26-2022 10:45-0500 Body mass index (BMI) [Ratio] 41.47 kg/m2 Donald Lizarraga Other [facility] Other 07-26-2022 10:45-0500 Body weight 146.51 kg Donald Lizarraga Other [facility] Other 07-26-2022 10:45-0500 Diastolic blood pressure 84 mm[Hg] Donald Lizarraga Other [facility] Other 07-26-2022 10:45-0500 SaO2% (BldA) [Mass fraction] 97 % Donald Lizarraga Other [facility] Other 07-26-2022 10:45-0500 Systolic blood pressure 142 mm[Hg] Donald Lizarraga Other [facility] Other 10-27-2021 12:02-0400 Blood Pressure Location CATHIE HERNANDEZ [facility] 10-27-2021 12:02-0400 Diastolic blood pressure 78 mm[Hg] CATHIE HERNANDEZ [facility] 10-27-2021 12:02-0400 Heart rate 77 /min CATHIE HERNANDEZ [facility] 10-27-2021 12:02-0400 Systolic blood pressure 141 mm[Hg] CATHIE HERNANDEZ [facility] Encounters Encounter Date Encounter Type Care Provider Facility Start: 11-06-2024 End: 11-06-2024 Refill Prasanth Perez MD Work Phone: [facility] Comment on above: Refill Start: 05-29-2024 End: 05-29-2024 ambulatory Donald Lizarraga MD Work Phone: [facility] Work Phone: Start: 05-29-2024 End: 05-29-2024 Patient encounter procedure Donald Lizarraga MD Work Phone: [facility] Work Phone: Start: 05-26-2024 End: 05-26-2024 ambulatory Donald Lizarraga MD Work Phone: [facility] Work Phone: Start: 05-26-2024 End: 05-26-2024 Patient encounter procedure Donald Lizarraga MD Work Phone: [facility] Work Phone: Start: 05-08-2024 End: 05-08-2024 ambulatory [facility] Work Phone: Start: 05-08-2024 End: 05-08-2024 Patient encounter procedure [facility] Work Phone: Start: 04-29-2024 Non-patient / Non-visit [facility] Work Phone: Start: 04-29-2024 End: 04-29-2024 ambulatory Blessing Granda MD Facility:[facility] Start: 04-15-2024 End: 04-15-2024 Office outpatient visit 25 minutes Prasanth Perez MD Work Phone: [facility] Comment on above: PAF (paroxysmal atri al fibrillation) (HCC) (Primary Dx) Start: 04-15-2024 End: 04-15-2024 ambulatory [facility]ANTH PERE[facility] Start: 01-23-2024 End: 01-23-2024 ambulatory CATHIE HERNANDEZ Facility:[facility] Start: 01-23-2024 End: 01-23-2024 Patient encounter procedure CATHIE HERNANDEZ [facility] Start: 12-27-2023 End: 12-28-2023 Patient encounter status Emperatriz Carnes DO Work Phone: [facility] Start: 12-27-2023 End: 12-28-2023 Refill Emperatriz Karim DO Work Phone: [facility] Comment on above: Refill Start: 10-19-2023 End: 10-19-2023 ambulatory [facility] Work Phone: Start: 10-19-2023 End: 10-19-2023 Patient encounter procedure [facility] Work Phone: Start: 09-07-2023 Non-patient / Non-visit [facility] Work Phone: Start: 07-20-2023 End: 07-20-2023 ambulatory Donald Lizarraga Other [facility] Other Start: 07-20-2023 Telephone encounter Donald Elham [facility] Start: 07-13-2023 End: 07-13-2023 ambulatory Donald Elham Other [facility] Other Start: 07-13-2023 Office outpatient vi sit 15 minutes Donald Elham [facility] Start: 04-04-2023 Patient encounter status Emperatriz Karim DO Work Phone: [facility] Start: 04-04-2023 Refill Emperatriz Karim DO Work Phone: [facility] Comment on above: Refill Start: 03-29-2023 End: 03-29-2023 Office outpatient visit 15 minutes Emperatriz Karim DO Work Phone: [facility] Comment on above: Persistent atrial fi brillation (HCC) (Primary Dx); Anticoagulated; JAVED on CPAP Start: 03-28-2023 End: 03-28-2023 ambulatory Donald Elham Other [facility] Other Start: 03-28-2023 Telephone encounter Donald Lizarraga [facility] Start: 03-18-2023 Letter encounter Emperatriz Carnes D O Work Phone: [facility] Start: 02-16-2023 Telephone encounter Emperatriz Reynoldsi m DO Work Phone: [facility] Comment on above: Question about medic ation Refill Start: 02-14-2023 Patient encounter status Emperatriz Karim DO Work Phone: [facility] Start: 02-14-2023 Refill Emperatriz Karim DO Work Phone: [facility] Comment on above: Refill Start: 01-24-2023 End: 01-24-2023 Lab Drop off CATHIE HERNANDEZ [facility] Start: 01-24-2023 End: 01-24-2023 Patient encounter procedure CATHIE Bindu AZEVEDORY [facility] Start: 11-10-2022 End: 11-11-2022 ambulatory JEET HERNÁNDEZ . Facility:[facility] Start: 11-07-2022 End: 12-07-[address] DONALD LIZARRAGA Facility:[facility] Start: 10-13-2022 ambulatory NARENDRANELOY LAKSHMIPATHY . Facility:[facility] Start: 10-11-2022 (Televisit) Televisit Donald Leon [facility] Start: 10-11-2022 End: 10-11-2022 ambulatory Donald Lizarraga Other [facility] Other Start: 10-10-2022 End: 11-04-2022 ambulatory SHAIKH Gurwinder HAMILTOND Facility:[facility] Start: 10-06-2022 End: 10-06-2022 Patient encounter procedure Oxana IBARRA [facility] Start: 2022 Telephone encounter Donald Lizarraga [facility] Start: 2022 End: 09-09-[address] DONALD LIZARRAGA [facility] Other Start: 09-07-2022 End: 10-07-2022 ambulatory WOMACK H FAWWAD Facility:[facility] Start: 08-10-2022 End: 09-07-2022 ambulatory WOMACK H FAWWAD Facility:[facility] Start: 07-29-2022 End: 07-29-2022 Patient encounter procedure Elicia Mcmillan [facility] Start: 07-26-2022 End: 07-26-2022 ambulatory Donald Lizarraga Other [facility] Other Start: 07-26-2022 Office outpatient vi sit 15 minutes Donald Lizarraga [facility] Start: 07-20-2022 End: 07-21-[address] JADEN VILLA . Facility:[facility] Start: 07-11-2022 End: 08-10-2022 ambulatory SHAIKH Gurwinder HAMILTONLedy Facility:[facility] Start: 06-28-2022 End: 06-28-[address] [...] encounter status Emperatriz Karim DO Work Phone: [facility] Start: 02-27-2022 Refill Emperatriz Karim DO Work Phone: [facility] Comment on above: Refill Start: 02-07-2022 End: 02-07-[address] DONALD LIZARRAGA Facility:[facility] Start: 02-07-2022 End: 03-09-[address] DONALD LIZARRAGA Facility:[facility] Start: 01-15-2022 Refill Emperatriz Karim DO Work Phone: [facility] Comment on above: Refill Start: 01-07-2022 End: 02-04-[address] DONALD LIZARRAGA Facility:[facility] Start: 11-24-2021 Patient encounter status Emperatriz Karim DO Work Phone: [facility] Start: 11-24-2021 Refill [facility] Comment on above: Refill Start: 11-24-2021 Refill Emperatriz Carnes DO Work Phone: [facility] Comment on above: Refill Start: 10-27-2021 End: 10-27-2021 Patient encounter procedure CATHIE HERNANDEZ [facility] Start: 03-28-2018 Patient encounter Devin Greer Fa cility:[facility] Start: 04-24-2017 End: 04-25-2017 Ambulatory DEFAULT PHYSICIAN Facility:[facility] Start: 03-03-2017 End: 03-04-2017 Ambulatory DEFAULT PHYSICIAN Facility:[facility] Procedures Date Procedure Procedure Detail Performing Clinician Start: 05-26-2024 Plain chest X-ray Donald Lizarraga MD Work Phone: Start: 10-06-2022 Colonoscopy Oxana IBARRA Start: [address] JADEN VILLA . Comment on above: Performed By: #### [facility] #### [facility] [address] [place] [address] Dr. Jason Pearson Start: 04-23-2020 Transurethral prostatectomy CATHIE PARIS Start: 07-19-2018 Transrectal biopsy of prostate using ultrasound guidance CATHIE HERNANDEZ Start: 12-21-2017 Esophagogastroduodenoscopy Elicia Josemet marrero Start: 08-28-2017 Screening for malignant neoplasm of colon Donald Lizarraga Other Start: 08-26-2016 Screening for malignant neoplasm of prostate Donald Lizarraga Other Start: 04-18-2014 Removal of suture Donald Lizarraga Other Start: 02-13-2014 General examination of patient Donald Alcon katz Other Colonoscopy CATHIE HERNANDEZ Excision of cyst CATHIE PABONSierra Local anesthetic ner ve block in lower limb CATHIE TIANA Screening for malign ant neoplasm of colon Donald Elham Other Screening for malign ant neoplasm of prostate Doanld Elham Other Special back care CATHIE DIAZ Plan of Treatment Date Care Activity Detail Author Start: 09-09-2027 Lipid panel Cholesterol [facility] Start: 03-10-2024 COVID-19 Vaccine ( season) COVID-19 Vaccine () [facility] Start: 03-10-2024 COVID-19 Vaccine () COVID-19 Vaccine () [facility] Start: 03-10-2024 Influenza vaccination Influenza Vaccine (#1) [facility] Start: 04-09-2023 Influenza vaccination Influenza Vaccine (#1) [facility] Start: 03-29-2023 End: 03-29-2023 Telemedicine consultation with patient 03/29/2023 4:20 PM EDT Telemedicine [facility] [address] [place] [address] Emperatriz Carnes DO [address] [place] [address] [facility] Start: 03-10-2023 COVID-19 Vaccine () COVID-19 Vaccine () [facility] Start: 03-10-2023 Influenza vaccination Influenza Vaccine [...] 60+ years) [facility] Start: 2013 RSV vaccine (adult) (1 - Risk 60-74 years 1-dose series) RSV vaccine (adult) (1 - Risk 60-74 years 1-dose series) [facility] Start: 2013 RSV vaccine (optional 60+ [...] Screening for malignant neoplasm of colon Colonoscopy [facility] Immunizations Immunization Date Immunization Notes Care Provider Fa cili 05-24-2023 Pneumococcal conjuga te 20 valent (PCV20), polysaccharide [id number] conjugate, adjuvant, PF (GSZ=567) [employer] Work Phone: [facility] 05-10-2023 influenza virus vaccine, unspecified formulation CATHIE TIANA [facility] 05-10-2023 Influenza, seasonal vaccine, quadrivalent, adjuvanted, 0.5mL dose, preservative free (NKN=007) [employer] Work Phone: [facility] 05-24-2022 influenza virus vaccine, unspecified formulation Elicia Garciametz [facility] 05-24-2022 Influenza, seasonal vaccine, quadrivalent, adjuvanted, 0.5mL dose, preservative free (RHO=695) [employer] Work Phone: [facility] 12-16-2021 Pfizer Monovalent (1 2+ yrs) SARS-COV-2 (COVID-19) vaccine, mRNA, spike protein, LNP, pres. free, 30 mcg/0.3mL dose, art-sucrose (EHQ=765) [employer] Work Phone: [facility] 12-16-2021 SARS-CoV-2 mRNA (ceffwzbxtro-ylez-wdduf se) vaccine Elicia Garciametz [facility] 08-18-2021 pneumococcal conjuga te vaccine, 13 valent [employer] Work Phone: [facility] 06-09-2021 SARS-CoV-2 (COVID-19 ) mRNA BNT-162b2 vax Eliciagurwinder GarciaHipolito [facility] 05-26-2021 SARS-CoV-2 (COVID-19 ) Ad26 vaccine, recombinant CATHIE HERNANDEZ [facility] 05-21-2021 Influenza, seasonal vaccine, quadrivalent, adjuvanted, 0.5mL dose, preservative free (NYQ=832) Emperatriz Carnes DO [facility] 05-21-2021 influenza virus vaccine, unspecified formulation Emperatrizquique Carnes DO Work Phone: [facility] 04-28-2021 influenza virus vaccine, unspecified formulation CATHIE HERNANDEZ [facility] 04-28-2021 SARS-CoV-2 (COVID-19 ) Ad26 vaccine, recombinant CATHIE HERNANDEZ [facility] 09-26-2020 Pfizer SARS-COV-2 (COVID-19) vaccine, age 12+ yrs, mRNA, spike protein, LNP, preservative free, 30 mcg/0.3mL dose (MUG=179) Emperatriz Carnes DO Work Phone: [facility] Comment on above: Result Comment: 2022: [id number] 09-05-2020 Pfizer SARS-COV-2 (COVID-19) vaccine, age 12+ yrs, mRNA, spike protein, LNP, preservative free, 30 mcg/0.3mL dose (ELQ=737) Emperatriz Carnes DO Work Phone: [facility] Comment on above: Result Comment: 2022: [id number] 05-10-2020 influenza virus vaccine, unspecified formulation CATHIE HERNANDEZ [facility] 05-05-2020 influenza virus vaccine, unspecified formulation Elicia Garciametz [facility] 05-05-2020 Influenza, seasonal vaccine, quadrivalent, adjuvanted, 0.5mL dose, preservative free (JTL=274) Emperatriz Karim DO Work Phone: [facility] 04-29-2019 influenza virus vaccine, unspecified formulation Elicia Mcmillan [facility] 04-29-2019 influenza, high dose seasonal, preservative-free Emperatriz Karim DO Work Phone: [facility] 04-26-2018 influenza virus vaccine, unspecified formulation Elicia Mcmillan [facility] 04-26-2018 Influenza, injectabl e, Madin [place] Canine Kidney, preservative free, quadrivalent Emperatriz Karim DO Work Phone: [facility] 04-19-2016 influenza virus vaccine, split virus (incl. purified surface antigen) Donald Lizarraga Other [facility] Other 04-19-2016 influenza virus vaccine, unspecified formulation [facility] 04-19-2016 pneumococcal polysaccharide vaccine, 23 valent Donald Lizarraga Other [facility] 06-23-2014 influenza virus vaccine, split virus (incl. purified surface antigen) Donald Lizarraga Other [facility] Other 06-23-2014 influenza virus vaccine, unspecified formulation [facility] 02-13-2014 diphtheria, tetanus toxoids and acellular pertussis vaccine, unspecified formulation Donald Lizarraga Other [facility] Payers Date Payer Category Payer Commercial Indemnity [facility] [id number] 2022 Unknown 2018 Medicare [id number]. [id number] 2018 Medicare FFS MEDICARE [id number] 1959 Medicare [id number] 2.16.840.1.284797.19 1959 Unknown [id number] 2.16.840.1.983065.19 1953 Unknown [id number] 2.16.840.1.086556.3.579.2.5 1953 Unknown [id number] 2.16.840.1.717535.3.579.2.5 1953 Unknown [id number] 2.16.840.1.462283.3.579.2.5 1953 Unknown [id number] 2.16.840.1.866734.3.579.2.5 1953 Unknown [id number] 2.16.840.1.505312.3.579.2.5 1953 Unknown [id number] 2.16.840.1.701400.3.579.2.5 1953 Unknown [id number] 2.16.840.1.692267.3.579.2.5 1953 Unknown [id number] 2.16.840.1.447793.3.579.2.5 93 1953 Unknown [id number] 2.16.840.1.390950.3.579.2.5 93 1953 Unknown [id number] 2.16.840.1.192915.3.579.2.5 93 1953 Unknown [id number] 2.16.840.1.117270.3.579.2.5 1953 Unknown [id number] 2.16.840.1.313055.3.579.2.5 93 1953 Unknown [id number] 2.16.840.1.114696.3.579.2.5 1953 Unknown [id number] 2.16.840.1.352354.3.579.2.5 1953 Unknown [id number] 2.16.840.1.922719.3.579.2.5 1953 Unknown [id number] 2.16.840.1.326994.3.579.2.5 1953 Unknown [id number] 2.16.840.1.017445.3.579.2.5 1953 Unknown [id number] 2.16.840.1.137801.3.579.2.5 1953 Unknown [id number] 2.16.840.1.399181.3.579.2.5 1953 Unknown [id number] 2.16.840.1.601920.3.579.2.5 1953 Unknown [id number] 2.16.840.1.823959.3.579.2.5 1953 Unknown [id number] 2.16.840.1.662408.3.579.2.5 1953 Unknown [id number] 2.16.840.1.416995.3.579.2.5 1953 Unknown [id number] 2.16.840.1.004704.3.579.2.7 27 1953 Unknown [id number] 2.16.840.1.996361.3.579.2.7 32 1953 Unknown [id number] 2.16.840.1.279723.3.579.2.1 96 Unknown [id number] Unknown Romel BC/BS [id number] Social History Date Type Detail Facility Start: 12-28-2018 End: 09-03-2020 Tobacco smoking status Never smoked tobacco (finding) [facility] Tobacco smoking status Never [facility] Start: 03-27-2023 Sex Assigned At Male [facility] Start: 12-28-2018 Tobacco use and exposure Smokeless tobacco non-user [facility] Start: 12-28-2018 End: 03-27-2023 Alcohol intake Ex-drinker (finding) [facility] Start: 1955 Sex Assigned At Not on file [facility] Start: 1955 Sex Assigned At Male [facility] Start: 03-27-2023 History of Social function [facility] Within the last year , have you been afraid of your partner or ex-partner? No [facility] Do you belong to any clubs or organizations such as yarsani groups, unions, fraternal or athletic groups, or [...] got money to buy more. Never true [facility] Start: 03-27-2023 [facility] Start: 08-09-2018 End: 05-26-2024 Sex Male (finding) [facility] Functional Status Date Assessment Result Facility 01-23-2024 Functional Status N/A [facility] 01-24-2023 Functional Status N/A [facility] 10-06-2022 Functional Status N/A [facility] 07-29-2022 Functional Status N/A [facility] Clinical Notes 11-24-2021 to 05-08-2024 Note Date & Type Note Facility 05-08-2024 Evaluation note Diagnosis Onset Date Resolution Bronchitis acute May 08, 2024 9:18am Cough noneactive May 26, 2024 9:07am [facility] Work Phone: 1(776) 801-713610-07-2024 History of Present illness Narrative* Prasanth Perez MD - 04/15/2024 10:07 AM EDT EP video visit to establish care Mr. [...] visit, he had lexiscan at [facility] on 09/2016 that showe no reversible findings, LVEF of 53%, and mid-anterior and mid- inferior mild, small defects. EKG portion was normal. [...] in 1 year Prior to your visit, [facility] shared information with you about the [...] 180 Tablet 3 Sodium Sulfate-Mag Sulfate-KCl (Sutab) [id number] MG TABS Take by mouth. AMLODIPINE BESYLATE [...] declined Stress: No Stress Concern Present (03/27/2023) [place] - Occupational Stress Questionnaire Feeling of Stress : Not at all Social Connections: Moderately Integrated (03/27/2023) Social Connection and Isolation Panel [NHANES] Frequency of Communication with Friends and Family: More than three times a week Frequency of Social Gatherings with Friends and Family: Twice a week Attends Mandaen Services: Never Active Member of Clubs or Organizations: Yes Attends Club or Organization Meetings: More than 4 times per year Marital Status: Intimate Partner Violence: Not At Risk (03/27/2023) Humiliation, Afraid, Rape, and Kick questionnaire Fear of Current or Ex-Partner: No Emotionally Abused: No Physically Abused: No Sexually Abused: No No family history on file. documented in this [id number] Hospital Discharge instructions Patient Education 01/23/2024 14:28:31 [...] Follow these instructions at home: Medicines Take rjxt-drc-adgwdzp and prescription medicines only as told by [...] provider. Document Revised: 09/22/2021 Document Reviewed: 09/22/2021 [employer] Patient Education 2022 [place]. Follow Up Care 01/24/2023 10:37:20 With:TIANA GARCIA, CATHIE Ruano, URL Address: [address] [place] [address] [id number] When: only if needed [facility] 07-16-2024 NotePatient Education Urology Erectile Dysfunction Erectile dysfunction (ED) is the inability to get or keep an erection in order to have sexual intercourse. ED is considered a symptom of an underlying disorder and is not considered a disease. ED mayinclude: ? Inability to get an erection. ? [...] The tube is inserted into the opening atthe tip of the penis, which is the opening of the urethra. A tiny pellet of medicine is put in the urethra. The pellet dissolves and enhances erectile function. This is also called MUSE (medicated urethral system for erections) therapy. ? Vacuum pump. This is a pump with a ring on it. The pump and ring are placed on the penis and usedto create pressure that helps the penis become [...] these instructions at home: Medicines ? Take kmsa-bwv-uncghgp and prescription medicines only as told by [...] to prevent headaches while taking ED medicines. Thesemedicines may cause a sudden headache due to the increase in blood flow in your body. General instructions ? Exercise regularly, as directed by your health care provider. Work with your health care providerto lose weight, if needed. ? Do not use any products that contain nicotine or tobacco. These (more content not included)...[facility]01-04-2024 Evaluation note* Encounter Date Diagnosis Assessment Notes Treatment Notes Treatment Clinical Notes Jul, Obstructive sleep apnea (ICD-10 - G47.33) Clinical signs which suggest the need for pressure adjustment were reviewed. He is compliant and faithful w using the device. Jul, Unspecified atrial fibrillation (ICD-10 - I48.91) >15 min spent in discussion/decisi on making. Continue followup w cardiology Jul, Essential hypertension (ICD-10 - I10) as above [facility] Experience Other 09-20-2023 History of Present illness Narrative* [...] of patient Time-Based Billing Justifications: Charting in [facility] Patient visit (including performing a medically appropriate [...] male with PMH of atrial fibrillation, HTN, fpc anticoagulation, JAVED,chronic back pain, arthritis, who was seen today for pAF. Last televisit- 08/2020- He had to ER on 05/22/20 when he had pain with a blood clot- needing to stop his coumadin for a short period of time. He felt like he has been in sinus rhythm on his self checks. He was on Xukokrejqd530 mg BID and Lopressor 100 mg BID. Since patient last saw me, he had TURP done- no further hematuria or urgency. PSA has been stable. Colonoscopy was normal per patient. No melena etc. ALLERGIES: Allergies Allergen Reactions Other (Review Comments!) MEDICATIONS: Current Outpatient Medications Medication Sig Dispense Refill Sodium Sulfate-Mag Sulfate-KCl (Sutab) 1112-119-600 MG TABS Take by mouth. AMLODIPINE BESYLATE [...] refused Stress: No Stress Concern Present (03/27/2023) [employer] [employer] - Occupational Stress Questionnaire Feeling of Stress : Not at all Social Connections: Moderately Integrated (03/27/2023) Social Connection and Isolation Panel [NHANES] Frequency of Communication with Friends and Family: More than three times a week Frequency of Social Gatherings with Friends and Family: Twice a week Attends Mandaen Services: Never Active Member of Clubs or [...] Assessment/Plan: Persistent atrial fibrillation (HCC) (Primary Diagnosis) [751487] Anticoagulated [126887] JAVED on CPAP [970718] Patient doing well overall as far as [...] Electrophysiology 03/29/23 4:52 PM documented in this [id number] Telephone encounter Note* Telephone Encounter - Crystal Putnam RN - 02/17/2023 9:17 AM EDT LVM for pt that new generic Rx (Toprol XL) was sent over to [facility]. [id number] Miscellaneous Notes* Telephone Encounter - Crystal Putnam RN - 02/17/2023 9:17 AM EDT LVM for pt that new generic Rx (Toprol XL) was sent over to [facility]. * Telephone Encounter - Dexter October - 02/16/2023 9:38 AM EDT [facility] is calling wanting to know if they can dispense Metoprolol SUCC- ER 100 mg instead ofthe Toprol XL 100 mg, pt's insurance will only cover the generic brand. Please contact [phone] use Re:[phone]. Thank you documented in this [id number] Telephone encounter Note* Telephone Encounter - Aundrea Davis PharmD - 02/16/2023 3:00 PM EDT Patient called stating the original prescription that was sent had a KP for Toprol XL 100mg which is not covered. Please send over generic Metoprolol ER Succinate 100mg. Thank you! [id number] Miscellaneous Notes* Telephone Encounter - Aundrea Davis PharmD - 02/16/2023 3:00 PM EDT Patient called stating the original prescription that was sent had a KP for Toprol XL 100mg which is not covered. Please send over generic Metoprolol ER Succinate 100mg. Thank you! documented in this [id number] Telephone encounter Note* Telephone Encounter - Dexter October - 02/16/2023 9:38 AM EDT [facility] is calling wanting to know if they can dispense Metoprolol SUCC- ER 100 mg instead ofthe Toprol XL 100 mg, pt's insurance will only cover the generic brand. Please contact Ross [phone] use Re:[phone]. Thank you [employer] Work Phone: 1(267) 223-724407-18-2023 Hospital Discharge instructions Patient Education 01/24/2023 10:34:12 [...] Follow these instructions at home: Medicines Take xkyt-mfh-iwplwtg and prescription medicines only as told by [...] provider. Document Revised: 09/22/2021 Document Reviewed: 09/22/2021 Elsevier Patient Education 2022 [employer]. Follow Up Care 10/27/2021 12:15:55 With:TIANA GARCIA, CATHIE Ruano, URL Address: [address] 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 [facility] Experience Other 03-30-2023 Evaluation + Plan noteExtracted from: Title:CSB post op Author:Daljit Gooden MD Date:10/06/22 Plan Transfer/Discharge: Transfer/Discharge Discharge when meets criteria ( To home ). Extracted from: Title:KRISSY GA Author:Daljit Gooden MD Date:10/06/22 Plan [place] [employer] Anesthesiologists (ASA) physical status classification: Class III. Anesthetic Preoperative Plan: Anesthesia General. Future Appointments Appointment Date:01/25/2023 10:00:00 AM Scheduled Provider:Erica Chua MD Location:[facility] Appointment Type:URO Office Visit [facility]03-30-2023 Hospital Discharge instructions Patient Education 10/06/2022 10:00:07 Colonoscopy, Care After Surgery Jose A (CUSTOM) Colonoscopy Care After Surgery Please read [...] 03/22/2005 Document Revised: 10/11/2018 Document Reviewed: 10/11/2018 [employer] Patient Education 2020 [employer]. 10/06/2022 10:00:07 Hemorrhoids, Kfyh-dy-Djgi Hemorrhoids Hemorrhoids are swollen veins that may [...] 3 times a day. General instructions Take fnlw-fpx-fllksma and prescription medicines only as told by [...] 04/04/2009 Document Revised: 07/04/2019 Document Reviewed: 11/15/2018 [employer] Patient Education 2020 [employer]. Follow Up Care 07/29/2022 15:02:48 With:Oxana IBARRA Address: [facility] [address] [place] [address] Business (1) When: Unknown Comments:Call for any problems. [facility]01-20-2023 Hospital Discharge instructions Patient Education 07/29/2022 [...] including vitamins, herbs, eye drops, creams, and vpor-lli-eqpvjxd medicines. Any problems you or family members [...] 06/23/2001 Document Revised: 04/18/2018 Document Reviewed: 09/06/2016 [employer] Patient Education 2020 [employer]. Follow Up Care 07/05/2022 09:47:30 With:Elicia Mcmillan CNP Address: When:1 to 2 weeks Comments:Following colonoscopy. [facility] 01-17-2023 Evaluation note* Encounter Date [...] way. Continue follow-up with cardiology as scheduled. [facility] Experience Other 01-11-2023 NoteCONSULTATION CONSULTATION DATE: 07/20/2022 HISTORY [...] in three months' time unless otherwise indicated.[facility] 07-20-2022 NoteCONSULTATION PROCEDURE DATE: 07/20/2022 PREOPERATIVE DIAGNOSIS: [...] fan-like pattern. Patient tolerated the procedure well.[facility] [id number] NotePAIN MANAGEMENT CONSULTATION CONSULTATION DATE: 05/26/2022 HISTORY [...] post procedure, and he wishes to proceed.[facility] [id number] NoteCONSULTATION CONSULTATION DATE: 04/07/2022 HISTORY OF PRESENT [...] which is aggravated by prolonged standing and special needs caregiver hours. He states that such activity has [...] for re-evaluation. Patient agrees to this plan.[facility] [id number] NoteCONSULTATION CONSULTATION DATE: 03/03/2022 This is a 15-rlgd-fpazyqiyw returning to clinic for a 3-month follow-up. [...] be followed up in the office following.[facility] [id number] Telephone encounter Note* Telephone Encounter - Erica Beckett - 03/01/2022 11:40 AM EDT Patient has not been seen by this specialist in more than 1 year. Please contact patient to schedule office visit. Thank you [id number] Miscellaneous Notes* Telephone Encounter - Erica Beckett - 03/01/2022 11:40 AM EDT Patient has not been seen by this specialist in more than 1 year. Please contact patient to schedule office visit. Thank you documented in this [id number] Telephone encounter Note* Telephone Encounter - Irina Nguyen - 01/18/2022 7:23 AM EDT Last visit with Cardiology ([facility]) on 09/03/2020 Requested Prescriptions Pending Prescriptions Disp Refills metoprolol (TOPROL-XL) 100 mg XL tablet [Pharmacy Med Name: METOPROLOL SUCCINATE ER TABS 100MG] 90 Tablet 3 Sig: TAKE 1 TABLET DAILY No PCP on file No PCP on file [id number] Miscellaneous Notes* Telephone Encounter - Irina Nguyen - 01/18/2022 7:23 AM EDT Last visit with Cardiology ([facility]) on 09/03/2020 Requested Prescriptions Pending Prescriptions Disp Refills metoprolol (TOPROL-XL) 100 mg XL tablet [Pharmacy Med Name: METOPROLOL SUCCINATE ER TABS 100MG] 90 Tablet 3 Sig: TAKE 1 TABLET DAILY No PCP on file No PCP on file documented in this [id number] Telephone encounter Note* Telephone Encounter - Anirudh Gonzalez RPh - 11/29/2021 3:11 PM EDT Pt called back, will talk to his [facility] to get refill [facility] Work Phone: [phone] Miscellaneous Notes* Telephone Encounter - Anirudh Gonzalez RPh - 11/29/2021 3:11 PM EDT Pt called back, will talk to his [facility] to get refill * Telephone Encounter - Asia Laguna RN - 11/29/2021 2:52 PM EDT Left message for pt to return call to [facility] at [phone] 2nd attempt * Telephone Encounter - Cathie Whitley RN - 11/26/2021 2:46 PM EDT Left message for patient to please call back. 1st attempt * Telephone Encounter - Anirudh Gonzalez RPh - 11/25/2021 9:37 AM EDT [facility] Staff, Please contact pt re the following issue. Per 09/03/21 note pt goes to [facility] , they should refill, will deny Thanks! * Telephone Encounter - Tamiko Rodriguez PharmD - 11/24/2021 4:09 PM EDT Requested Prescriptions Pending Prescriptions Disp Refills warfarin (COUMADIN) 5 MG tablet 90 Tablet 0 Sig: Take 1 Tablet by mouth daily. No PCP on file No PCP on file documented in this [id number] Telephone encounter Note* Telephone Encounter - Asia Laguna RN - 11/29/2021 2:52 PM EDT Left message for pt to return call to [facility] at [phone] 2nd attempt [facility] Phone: [phone] 215-854105-20-2022 Telephone encounter Note* Telephone Encounter - Cathie Whitley RN - 11/26/2021 2:46 PM EDT Left message for patient to please call back. 1st attempt [id number] Telephone encounter Note* Telephone Encounter - Anirudh Gonzalez RPh - 11/25/2021 9:37 AM EDT [facility] Staff, Please contact pt re the following issue. Per 09/03/21 note pt goes to [facility] , they should refill, will deny Thanks! [id number] Telephone encounter Note* Telephone Encounter - Tamiko Rodriguez PharmD - 11/24/2021 4:09 PM EDT Requested Prescriptions Pending Prescriptions Disp Refills warfarin (COUMADIN) 5 MG tablet 90 Tablet 0 Sig: Take 1 Tablet by mouth daily. No PCP on file No PCP on file [facility] Work Phone: [phone]) 993-306405-18-2022 Miscellaneous Notes* Telephone Encounter - Tamiko Rodriguez [...] [Pharmacy Med Name: POTASSIUM CHLORIDE ER (DISP) [id number]] 180 Tablet 3 Sig: TAKE 1 TABLET TWICE A DAY Refused Prescriptions Disp Refills warfarin (COUMADIN) 5 MG tablet [Pharmacy Med Name: WARFARIN TABS 5MG] 90 Tablet 3 Sig: TAKE 1 TABLET DAILY (INR: 2.33) No PCP on file No PCP on file documented in this encounterMetroHealthEvaluation + Plan note Future Appointments Appointment Date:11/01/2022 09:45:00 AM Scheduled Provider:Min Tristan Jr., MD Location:[facility] Appointment Type:URO Office Visit Diagnostic Tests Pending * PSA Total 10/27/21 [facility] evaluation + Plan note Future Appointments Appointment Date:10/06/2022 09:00:00 AM Scheduled Provider: Location:[facility] Appointment Type:Surgery FT Appointment Date:11/01/2022 09:45:00 AM Scheduled Provider:Min Tristan Jr., MD Location:[facility] Appointment Type:URO Office Visit [facility] Evaluation + Plan note Future Appointments Appointment Date:01/30/2024 10:00:00 AM Scheduled Provider:CATHIE HERNANDEZ PA-C Location:[facility] Appointment Type:URO Office Visit [facility] evaluation + Plan note Future Appointments Appointment Date:01/30/2024 10:00:00 AM Scheduled Provider:CATHIE HERNANDEZ PA-C Location:[facility] Appointment Type:URO Office Visit Diagnostic Tests Pending * [facility] PAF (paroxysmal atrial fibrillation) [...] present documented in this encounter [facility]HealthEvaluation noteNo [facility] [employer] Other Evaluation note* Diagnosis Persistent atrial fibrillation [...] in this encounter MetroHealthEvaluation noteNo assessment information [facility] Work Phone: Evaluation note* Diagnosis PAF [...] documented in this encounter [facility]HealthEvaluation note* Diagnosis Onset Date Resolution Status Bronchitis acute [facility] Work Phone: History general Narrative - Reported* Type Description Date [...] Hospitalization History No Hospitalization histo ry information [facility] Experience Other Hospital course Narrative No data available for this section [facility] Hospital Discharge instructions No data available for this section [facility] progress note No data available for this section [facility] Summary Purpose Family History Relationship Condition Age at Onset Recorded Date/T gerhard father Unknown Malignant neoplasm Unknown Not Specified Unknown Relationship Condition Age at Onset Recorded Date/T gerhard father Unknown Malignant neoplasm Unknown mother Unknown Advance Directives Advance Directive Response Recorded Date/ Time Advance Directives No October 18 10:11am Advance Directive Response Recorded Date/ Time Advance Directives No October 18 9:11am Chief Complaint and Reason for Visit Chief Complaint Amb Documentation Cough Chief Complaint cough ,congestion Reason for Visit Bronchitis Chief Complaint Admit Date cough ,congestion May 08, 2024 9 :18am productive cough for weeks May 9:07am R05.9 - Cough, unspecified May 9:51am Reason for Visit Admit Date Bronchitis May 08, 2024 9 :18am Cough May 26, 2024 9:07am Chief Complaint Admit Date cough ,congestion May 08, 2024 9 :18am productive cough for weeks May 9:07am R05.9 - Cough, unspecified May 9:51am UC follow up, bronchitis May 29, 2024 9:27am Additional Source Comments (unrecognized sect ion and content) No Status Records FoundNo Status Records FoundNo Status Records FoundNo Status Records FoundNo Status Records FoundNo Status Records FoundNo Status Records FoundNo Status Records Found INFORMATION SOURCE (unrecogn ized section and content) DATE CREATED AUTHOR 01/02/2018 [facility] DATE CREATED AUTHOR AUTHOR'S ORGANIZ ATION 04/24/2018 [employer] DATE CREATED AUTHOR AUTHOR'S ORGANIZ ATION 05/06/2018 [facility] DATE CREATED AUTHOR AUTHOR'S ORGANIZ ATION 12/16/2022 [facility] DATE CREATED AUTHOR AUTHOR'S ORGANIZ ATION 01/25/2024 [facility] DATE CREATED AUTHOR AUTHOR'S ORGANIZ ATION 04/15/2024 [facility] DATE CREATED AUTHOR AUTHOR'S ORGANIZ ATION 05/08/2024 [facility] DATE CREATED AUTHOR AUTHOR'S ORGANIZ ATION 05/28/2024 [facility] Reason for Visit (unrecogniz ed section and content) Reason Comments Refill Reason Onset Date Comments Refill 11/24/2021 Reason Onset Date Comments Refill 02/14/2023 Reason Onset Date Comments Question about medication 02/16/2023 Reason Onset Date Comments Refill 02/16/2023 Reason Comments Atrial fibrillation/flutter Reason Comments New patient, to establish relationship Reason Onset Date Comments Refill 11/06/2024 Care Teams (unrecognized sec tion and content) Extrusion Bender Relationship Specialty Start Date End Date Emperatriz Carnes DO [address] [place] [address] Physician Electrophysiology 04/14/20 Extrusion Bender Relationship Specialty Start Date End Date Emperatriz Carnes DO [address] [place] [address] Physician Electrophysiology 04/14/20 Extrusion Bender Relationship Specialty Start Date End Date Emperatriz Carnes DO [address] [place] [address] Physician Electrophysiology 04/14/20 Extrusion Bender Relationship Specialty Start Date End Date Emperatriz Carnes DO [address] [place] [address] [address] [place] [id number] Physician Electrophysiology 04/14/20 Extrusion Bender Relationship Specialty Start Date End Date Emperatriz Carnes DO [address] [place] [address] [place] [address] Physician Electrophysiology 04/14/20 Extrusion Bender Relationship Specialty Start Date End Date Emperatriz Carnes DO [address] [place] [address] [place] [address] Physician Electrophysiology 04/14/20 Extrusion Bender Relationship Specialty Start Date End Date Emperatriz Carnes DO [address] [place] [address] [place] [address] Physician Electrophysiology 04/14/20 Extrusion Bender Relationship Specialty Start Date End Date Emperatriz Carnes DO [address] [place] [address] [place] [address] Physician Electrophysiology 04/14/20 Extrusion Bender Relationship Specialty Start Date End Date Emperatriz Carnes, DO [address] [place] [address] Physician Electrophysiology 04/14/20 Team Status: Active Member [...] October 19, 2023 End: October 19, 2023 Extrusion Bender Relationship Specialty Start Date End Date Emperatriz Carnes DO [address] [place] [address] Physician Electrophysiology 04/14/20 Extrusion Bender Relationship Specialty Start Date End Date Emperatriz Carnes, [address] [place] [address] Physician Electrophysiology 04/14/20 Team Status: Active Member Role Status Dates Donald Lizarraga MD Primary Care Provider Active Start: April 29, 2024 Blessing Granda MD Attending Provider Active Start: April 29, 2024 Team Status: Inactive Member Role Status Dates Donald Lizarraga MD Primary Care Provider Active Start: May 08, 2024 End: May 08, 2024 Michelle Clark APRN Attending Provider Active S tart: May 08, 2024 End: May 08, 2024 Team Status: Inactive Member Role Status Dates Donald Lizarraga MD Primary Care Provider Active Start: May 26, 2024 End: May 26, 2024 Mariela Mosley APRN Attending Provider Active Start: May 26, 2024 End: May 26, 2024 Team Status: Active Member Role Status Dates Donald Lizarraga MD Primary Care Provider Active Start: May 26, 2024 Mariela Mosley APRN Attending Provider Active Start: May 26, 2024 Team Status: Inactive Member Role Status Dates Donald Lizarraga MD Primary Care Provide r, Attending Provider Active Start: May 29, 2024 End: May 29, 2024 Extrusion Bender Relationship Specialty Start Date End Date Emperatriz Carnes DO [address] [place] [address] Physician Electrophysiology 04/14/20 Prasanth Perez MD [address] [place] [address] Physician Cardiac Electrophysiology 05/11/24 Goals (unrecognized section and content) Goals may [...] BE BASED ON THE PRIMARY CLINICAL RECORDS. [facility] [employer] [facility]. provides no warranty or guarantee of the accuracy or completeness of information in this document.
--- NOTE | 2024-11-26 17:38 | ED.GENADUL1 ---
HPI HPI - General Adult General Chief complaint: Fall Stated complaint: Fall Time Seen by Provider: 11/26/24 17:18 Source: patient Mode of arrival: walk-in Limitations: no limitations History of Present Illness HPI narrative: This 69-year-old male states that he was on a ladder changing a light bulb by the side of his house. On the way down he missed the last rung of the ladder and fell on his left side. He skinned his left knee and around the left elbow. He states he wants to be checked out for injuries. He denies injuring his head and denies neck pain. He has a history of chronic atrial fibrillation for the last 5 years and is on warfarin for that. Related Data Home Medications ?Medication ?Instructions ?Recorded ?Confirmed atorvastatin 20 mg tablet 20 mg PO QDAY 12/22/22 11/26/24 calcium carbonate 300 mg PO DAILY 12/22/22 11/26/24 flecainide 100 mg tablet 100 mg PO Q12H 12/22/22 11/26/24 hydrochlorothiazide 25 mg tablet 25 mg PO QDAY 12/22/22 11/26/24 lisinopril 40 mg tablet 40 mg PO QDAY 12/22/22 11/26/24 loratadine 10 mg tablet 10 mg PO DAILY 12/22/22 11/26/24 metoprolol succinate 100 mg 100 mg PO QDAY 12/22/22 11/26/24 tablet,extended release 24 hr multivitamin 1 tab PO DAILY 12/22/22 11/26/24 olopatadine 0.1 % eye drops drp ophthalmic (eye) BID 12/22/22 potassium chloride 20 mEq 20 meq PO BID 12/22/22 11/26/24 tablet,extended release(part/cryst) (Klor-Con M) warfarin 5 mg tablet 5 mg PO QDAY 12/22/22 11/26/24 gabapentin 300 mg capsule 900 mg PO BID 01/17/24 11/26/24 baclofen 10 mg tablet 10 mg PO TID PRN pain 06/25/24 11/26/24 Allergies Allergy/AdvReac Type Severity Reaction Status Date / Time No Known Drug Allergies Allergy Verified 11/26/24 16:59 Opioid HPI Opioid Management Most Recent Opioid Data: Last Pain Scale 8 04/29/24, 07:33 Review of Systems ROS Status of ROS 10 or more systems reviewed and unremarkable except as noted in history and below [facility] Medical History Atrial fibrillation ?I48.91 - Unspecified atrial fibrillation (ICD-10) Low back pain ?M54.50 - Low back pain, unspecified (ICD-10) Osteoarthritis ?M19.90 - Unspecified osteoarthritis, unspecified site (ICD-10) Colon cancer ?C18.9 - Malignant neoplasm of colon, unspecified (ICD-10) Obesity ?E66.9 - Obesity, unspecified (ICD-10) Kidney stone ?N20.0 - Calculus of kidney (ICD-10) Enlarged prostate ?N40.0 - Benign prostatic hyperplasia without lower urinary tract symptoms (ICD-10) Pulmonary embolism ?I26.99 - Other pulmonary embolism without acute cor pulmonale (ICD-10) Sleep apnea ?G47.30 - Sleep apnea, unspecified (ICD-10) High cholesterol ?E78.00 - Pure hypercholesterolemia, unspecified (ICD-10) Hypertension ?I10 - Essential (primary) hypertension (ICD-10) Surgical History S/P TURP ?Z90.79 - Acquired absence of other genital organ(s) (ICD-10) History of colon resection ?Z90.49 - Acquired absence of other specified parts of digestive tract (ICD-10) Social History Little interest or pleasure in doing things: not at all Feeling down, depressed, or hopeless: not at all Exam Narrative Exam Narrative: Patient does not appear acutely distressed. He is able to ambulate without difficulty. The head is atraumatic and there is no C-spine tenderness. Vital signs are stable and are as documented. He is not tender over the thoracolumbar spine. There is no chest wall bruising and no chest wall tenderness to the lateral or anterior posterior compression. There is no soft tissue crepitus over the chest wall. Heart has an irregular rhythm with a controlled rate. Abdomen is soft nontender and no bruises are noted over the trunk. Patient has superficial abrasion over the extensor surface of the proximal left ulna but he has full range of motion of the left elbow with no joint effusion. Both shoulders are atraumatic. Patient has superficial abrasions anteriorly over the left knee but there is no underlying effusion and he has full range of painless motion of the left knee. The rest of the bony survey of his extremities is negative. Constitutional Vital Signs, click to edit/add: Last Vital Signs Temp 97.7 F 11/26/24 16:55 Pulse 82 11/26/24 16:55 Resp 16 11/26/24 16:55 BP 148/75 H 11/26/24 16:55 Pulse Ox 99 11/26/24 16:55 O2 Del Method Room Air 11/26/24 16:55 Course Vital Signs Vital signs: Vital Signs Temperature 97.7 F 11/26/24 16:55 Pulse Rate 82 11/26/24 16:55 Respiratory Rate 16 11/26/24 16:55 Blood Pressure 148/75 H 11/26/24 16:55 Pulse Oximetry 99 11/26/24 16:55 Oxygen Delivery Method Room Air 11/26/24 16:55 Temperature 97.7 F 11/26/24 16:55 Pulse Rate 82 11/26/24 16:55 Respiratory Rate 16 11/26/24 16:55 Blood Pressure 148/75 H 11/26/24 16:55 Pulse Oximetry 99 11/26/24 16:55 Oxygen Delivery Method Room Air 11/26/24 16:55 Medical Decision Making MDM Narrative Medical decision making narrative: Patient presents for evaluation of injuries after a fall. These are fairly superficial and a limited to abrasion of the left proximal forearm and the left knee. I do not have any suspicion for injury to the head neck, spine or chest wall. He is discharged with supportive care advised and is to return anytime for worsening symptoms. Discharge Plan Discharge Chief Complaint: Fall Clinical Impression: Abrasion of knee, left Qualifiers: Encounter type: initial encounter Qualified Code(s): S80.212A - Abrasion, left knee, initial encounter Abrasion of elbow, left Qualifiers: Encounter type: initial encounter Qualified Code(s): S50.312A - Abrasion of left elbow, initial encounter Fall Qualifiers: Encounter type: initial encounter Qualified Code(s): W19.XXXA - Unspecified fall, initial encounter Patient Disposition: Home, Self-Care Time of Disposition Decision: 17:42 Condition: Good Mode of Transportation: Private Vehicle Prescriptions / Home Meds: No Action gabapentin 300 mg capsule 900 mg PO BID baclofen 10 mg tablet 10 mg PO TID PRN (Reason: pain) flecainide 100 mg tablet 100 mg PO Q12H hydrochlorothiazide 25 mg tablet 25 mg PO QDAY lisinopril 40 mg tablet 40 mg PO QDAY metoprolol succinate 100 mg tablet extended release 24 hr 100 mg PO QDAY olopatadine 0.1 % drops OPHTHALMIC (EYE) BID potassium chloride [Klor-Con M20] 20 mEq tablet,ER particles/crystals 20 meq PO BID warfarin 5 mg tablet 5 mg PO QDAY atorvastatin 20 mg tablet 20 mg PO QDAY loratadine 10 mg tablet 10 mg PO DAILY multivitamin Tablet 1 tab PO DAILY calcium carbonate 600 mg calcium (1,500 mg) tablet 300 mg PO DAILY Print Language: Lao Instructions: Fall Prevention for Older Adults (ED), Abrasion (ED) Additional Instructions: Clean areas of abrasion over the left elbow and left knee and cover with a Band-Aid. Watch for signs of infection. Return for worsening symptoms. Referrals: Rocio Bagley MD [Primary Care Provider, Family Practice] - 1 week Discharge Date/Time: 11/26/24 18:05
[2024-11-26] MEDS: ADACEL DIPH,PERTUSS(ACELL),TET VAC/PF 0.5 ML ADULT SYRINGE IM (17:54)
== END 2024-11-26 18:05 | disposition home or self-care (01) ==
PROVIDERS: Emergency Provider Emergency Medicine; PCP Family Medicine
DX: S80.212A Abrasion, left knee, initial encounter (principal); S50.312A Abrasion of left elbow, initial encounter; W11.XXXA Fall on and from ladder, initial encounter; I48.20 Chronic atrial fibrillation, unspecified; Z79.01 Long term (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; Z23 Encounter for immunization
CPT/HCPCS: 90471; 90715; 99283

== ENCOUNTER 2024-12-08 08:16 | Outpatient (RCR) | payer MEDICARE, SELFPAY | END 2025-01-02 15:02 | disposition home or self-care (01) | LOC: MM 08:16 | PROVIDERS: PCP Family Medicine; Visit Provider Internal Medicine | DX: Z51.81 Encounter for therapeutic drug level monitoring (principal); Z79.01 Long term (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 | CPT/HCPCS: 85610; G0463 ==

== ENCOUNTER 2024-12-16 07:26 | Day surgery (SDC) | payer MEDICARE, SELFPAY ==
--- OUTSIDE RECORDS SUMMARY | 2024-12-16 07:29 | XMS_ITS | Clinical Summary ---
Author Organization [facility] Address [address] [place] [address] Care Team Providers Care Textile Machine Maintenance Mechanic Name Role Phone Rocio Bagley MD Primary Care Provider [phone] Allergies No known active allergies Medications amLODIPine (NORVASC) 5 mg tablet Take 5 mg by mouth once daily. Active aspirin, enteric coated (ASPIRIN, ENTERIC COATED) 81 mg EC tablet Take 81 mg by mouth once daily. Active carvedilol (COREG) 25 mg tablet Take 25 mg by mouth twice daily with meals. Active [place]-3 Fatty Acids-Vitamin E (FISH OIL) 1,000 mg cap Take 1 capsule by mouth once daily. Active Multivitamin capsule Take 1 capsule by mouth once daily. Active loratadine (CLARITIN) 10 mg tablet Take 10 mg by mouth once daily. Active ascorbic acid (VITAMIN C) 500 mg tablet Take 1,000 mg by mouth once daily. Active cholecalciferol (VITAMIN D) 1,000 unit tab Take 1,000 Units by mouth once daily. Active olopatadine (PATANOL) 0.1 % ophthalmic solution Use 1 Drop in both eyes as needed. Active celecoxib (CELEBREX) 200 mg capsule 12/07/2014 Active Active Problems Problem Noted Date Diagnosed Date Colon cancer 11/07/2014 Family History Medical History Relation Comments Lung cancer [Other] Father Lung Breast Cancer Mother Colon Cancer Mother with liver mets Relation Status Comments Daughter Alive Father (Age 56) Lung Cancer Mother (Age 75) Colon Cancer w /liver mets/Breast Cancer Sister 1 Alive Sister 2 Alive Social History Tobacco Use Types Packs/Day Years Used Date Smoking Tobacco: Never Smokeless Tobacco: Never Alcohol Use Standard Drinks/Week Comments No 0 (1 standard drink = 0.6 oz pur e alcohol) Sex and Gender Information Value Date Recorded Sex Assigned at Not on file Legal Sex Male 2:06 PM EDT Gender Identity Not on file Sexual Orientation Not on file Last Filed Vital Signs Vital Sign Reading Time Taken Comments Blood Pressure 99/65 12/22/2014 1:54 PM EDT Pulse 81 12/22/2014 1:54 PM EDT Temperature 36.6 C (97.8 F) 12/22/2014 1:54 PM EDT Respiratory Rate - - Oxygen Saturation - - Inhaled Oxygen Concentration - - Weight 134.3 kg (296 lb) 12/22/2014 1:54 PM EDT Height 185.4 cm (6' 0.99 ) 12/22/2014 1:54 PM ED T Body Mass Index 39.06 12/22/2014 1:54 PM EDT Plan of Treatment Health Maintenance Due Date Last Done Comments Anxiety Screening 09/09/1971 Depression Screening 09/09/1971 Hepatitis C Screening 09/09/1971 DTaP,Tdap,Td Vaccine (1 - Tdap) [address] Colonography 1998 Cologuard (FIT-DNA) 1998 Colonoscopy 1998 Colorectal Cancer Screening 1998 Diabetes Screening 1998 Fecal Occult Blood 1998 Sigmoidoscopy 1998 Pneumococcal Vaccine: 50+ (1 of 1 - PCV) 09/09/2003 Shingrix Vaccine (1 of 2) 09/09/2003 Covid-19 Vaccine ( - season) 2024 Advance Directive Discussion 07/10/2024 Influenza Vaccine (Season Ended) 2025 RSV Vaccine (1 - 1-dose 75+ series) 2028 Insurance BLUE CARD PPO OOS Member Subscriber Plan / Payer (Ef fective 2014-Present) Name:Evangelist Ybarra Relation to Subscriber:Self Name:Evangelist Ybarra Payer ID:[id number] (NAIC) Group ID:[id number] Type:PPO Address: [facility] [id number] [place] [id number] Care Teams Textile Machine Maintenance Mechanic Relationship Specialty [place] [address] [place] [id number] PCP - General Family Medicine 10/24/14
--- OUTSIDE RECORDS SUMMARY | 2024-12-16 07:29 | XMS_ITS | Clinical Summary ---
Author Organization [facility] Address [address] [place] [address] Phone Care Team Providers Care Coding Support Specialist Name Role Phone Rocio Bagley MD Primary Care Provider [phone] Social History Tobacco Use Types Packs/Day Years Used Date Smoking Tobacco: Never Assessed Sex and Gender Information Value Date Recorded Sex Assigned at Not on file Legal Sex Male 12:38 PM EST Gender Identity Not on file Sexual Orientation Not on file Plan of Treatment Not on file Care Teams Coding Support Specialist Relationship Specialty Start Date End Date Rocio Bagley MD [address] [place] [address] [address] [place] [address] PCP - General 03/28/18
--- OUTSIDE RECORDS SUMMARY | 2024-12-16 07:29 | XMS_ITS | Clinical Summary ---
Author Organization [facility] Address [address] [place] [address] Care Team Providers Care Tailor Helper Name Role Phone Unavailable Primary Care Provider Unavailabl e Social History Tobacco Use Types Packs/Day Years Used Date Smoking Tobacco: Never Assessed Sex and Gender Information Value Date Recorded Sex Assigned at Not on file Legal Sex Male 7:40 PM EDT Gender Identity Not on file Sexual Orientation Not on file Last Filed Vital Signs Vital Sign Reading Time Taken Comments Blood Pressure - - Pulse - - Temperature - - Respiratory Rate - - Oxygen Saturation - - Inhaled Oxygen Concentration - - Weight 149 kg (329 lb) 05/02/2022 12:00 PM EDT Height 185.4 cm (6' 1 ) 05/02/2022 12:00 PM EDT Body Mass Index 43.41 05/02/2022 12:00 PM EDT Plan of Treatment Not on file Insurance MEDICARE
--- OUTSIDE RECORDS SUMMARY | 2024-12-16 07:29 | XMS_ITS | Clinical Summary ---
Author Organization [facility] Address [address] [place] [address] Care Team Providers Care Podiatrist Name Role Phone Unavailable Primary Care Provider Unavailabl e Allergies No known active allergies Medications No known medications Family History Medical History Relation Name Comments Arthritis Father Cancer Father Cancer Mother Relation Name Status Comments Father Mother Social History Tobacco Use Types Packs/Day Years Used Date Smoking Tobacco: Never Assessed Smokeless Tobacco: Never Sex and Gender Information Value Date Recorded Sex Assigned at Not on file Legal Sex Male 2:14 PM EDT Gender Identity Not on file Sexual Orientation Not on file Last Filed Vital Signs Vital Sign Reading Time Taken Comments Blood Pressure - - Pulse - - Temperature 36.4 C (97.6 F) 10/26/2018 2:33 PM EDT Respiratory Rate - - Oxygen Saturation - - Inhaled Oxygen Concentration - - Weight 147.4 kg (325 lb) 10/26/2018 2:33 PM EDT Height 188 cm (6' 2 ) 10/26/2018 2:33 PM EDT Body Mass Index 41.73 10/26/2018 2:33 PM EDT Plan of Treatment Not on file Insurance MEDICARE [place] [id number] [employer] MEDICARE SUPP
--- OUTSIDE RECORDS SUMMARY | 2024-12-16 07:32 | XMS_ITS | CCD ---
Author Organization [facility] Care Team Providers Care Efficiency Expert Name Role Phone PHYSICIAN, DEFAULT Unavailable Unavailable PHYSICIAN, DEFAULT Unavailable Unavailable DONALD LIZARRAGA Unavailable Unavailable PHYSICIAN, DEFAULT Unavailable Unavailable PHYSICIAN, DEFAULT Unavailable Unavailable DONALD LIZARRAGA Unavailable Unavailable Devin Greer Unavailable Unavailable Donald Lizarraga Unavailable Unavaila ble DONALD LIZARRAGA Primary Care Physician Deyvi DO, Emperatriz Unavailable Karim DO, Emperatriz [...] PEREZ Attending Unavailable PROVIDER, UNKNOWN Admitting Unavailable Donald Lizarraga MD Primary Care Provider Mariela Mosley APRN Attending Provider 1( [phone] Donald Lizarraga Primary Care Unavailable Mariela Mosley Attending UnavailMariela Castillo Admitting UnavailPrasanth Singletary MD Unavailable Blessing Granda MD Attending Unavailable Blessing Granda MD Attending Unavailable Allergies Allergy Classification Reported Allergen(s) Allergy Type Date of Onset Reaction(s) Facility (17 sources) Other (Review Comments!); 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: [OTHER (REVIEW COMMENTS!)] Propensity to adverse reactions to drug 12-29-19 19 [facility] (11 sources) Decongestant Drug allergy 10-18-19 24 Unknown, [facility] (8 sources) DECONGESTANTS Propensity to adverse reactions 05-03-20 13 Unknown, [facility] Comment on above: Onset Date: 05/03/20 13 (3 sources) Allergies Reconciled Propensity to adverse reactions Unknown Penemarie K Murphy Other (3 sources) patient allergy list reviewed by nurse or physicia Propensity to adverse reactions 11-23-19 17 Comment:Done Penemarie K Murphy Other (1 source) No Known Medication Allergies; 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: [No Known Medication Allergies] Propensity to adverse reactions (disorder) [facility] Repository Medications Current Medications Medication Drug Class(es) Dates Sig (Normalized) Sig (Original) [id number] 200 actuat albuterol 0.09 mg/actuat metered dose [...] a day Active take 1 capsule by [facility] every twenty-four hours Gabapentin 100 MG 1 [...] 09-07-2023 Lisinopril Act elvira 0 .ROUTE .COMPLEX 90 September 07, 2023 [...] follow instructions per packaging and physician's handout, [facility]/pharmacy #[id number], 183.8, cm, 07/29/22 14:15:00 EST, Height/Length Dosing, [...] drops Discontinued 1 DROPS OPHTHALMIC Twice daily 5 October 19, 2023 9:48am December 25, 2023 [...] 20 mg tablet Active 0 PO Daily 11 May 26, 2024 12:00am Take 2 tabs x [...] 2023 12:00am sildenafil 25 mg oral tablet (8 sources) Phosphodiesterase 5 Inhibitor Start: 01-24-2023 sildenafil citrate (VIAGRA) 25 MG tablet Take 25 mg by mouth. 01/24/2023 Active Sodium Sulfate-Mag Sulfate-KCl (Sutab) 2517-957-384 MG TABS (6 sources) Start: 07-29-2022 Sodium Sulfate -Mag Sulfate-KCl (Sutab) 0179-622-487 MG TABS Take by mouth. 07/29/2022 Active Start: 07-29-2022 Sodium Sulfate -Mag Sulfate-KCl (Sutab) 4966-255-434 MG TABS Take by mouth. 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] Onset: 12-07-2022 Episodic Other [...] [Cough] 05-26-2024 Episodic Other male genital disorders (9 sources) Male erectile dysfunction, unspecified; 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: [Erectile [...] pulmonale] Onset: 05-02-2016 Episodic Residual codes; unclassified (12 sources) Sleep apnea; 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: [Sleep apnea, unspecified] [...] te Episodic/Chronic Cancer of rectum and anus (7 sources) History of malignant neoplasm of rectum; [...] aftercare (20 sources) Drug therapy finding; 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: [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] Onset: 09-03-2020 Episodic [...] Onset: 07-10-2016 04-16-2020 Episodic Residual codes; unclassified (17 sources) Family history of cancer of colon; 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: [Family hx of colon cancer] Onset: 03-29-2023 07-29-2022 Episodic Unclassified (1 source) LOW BACK PAIN, UNSPECIFIED; 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: [LOW BACK PAIN, UNSPECIFIED] Onset: 03-22-2022 Unclassified (3 sources) Vaccine product containing only acellular Bordetella pertussis and Clostridium tetani and Corynebacterium diphtheriae antigens (medicinal product); 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: [Vwssvrlxfy-iwjhvsb-j ertussis, combined [DTP] [DtaP]] Onset: 02-13-2014 Viral infection (1 source) COVID-19 Results Test Name Value Interpretation Reference Range Facility X-ray reportOrdered By: Luz Bryan on 05-26-2024 Study report [facility] Main [address] [address] XRay Report Signed Patient: Evangelist Ybarra MR#: [id number] : 1955 Acct:[id number] Age/Sex: 68 / M ADM Date: 4 Loc: DUC Room: Type: [facility] Attending Dr: Mariela Mosley APRN Copies to: [...] Lupis Bryan M.D.05/26/2024 10:23 AM Dictation Location: [place] [address] Transcribed By: [facility] 05/26/24 1023 Dictated By: Lupis Bryan MD 05/26/24 1022 Signed By: 05/26/24 [facility] Work Phone: XR chest 2V*on 05-26-2024 XR chest 2V* [facility] Main [address] [address] XRay Report Signed Patient: Evangelist Ybarra MR#: [id number] : 1955 Acct:[id number] Age/Sex: 68 / M ADM Date: 05/26/24 Loc: XDUCLY Room: Type: [facility] Attending Dr: Mariela Mosley APRN Copies to: [...] Lupis Bryan M.D.05/26/2024 10:23 AM Dictation Location: [place] [address] Transcribed By: [facility] 05/26/24 1023 Dictated By: Lupis Bryan MD 05/26/24 1022 Signed By: 05/26/24 1023 Normal [facility] Influenza virus A and B and SARS-CoV-2 (COVID-19) RNA panel - Respiratory system specon 05-08-2024 Influenza virus A and B RNA and SARS-CoV-2 (COVID-19) N gene panel ANNIE+probe (Resp) Influenza virus A and B and SARS-CoV-2 (COVID-19) RNA panel - Respiratory system spec [facility] Laboratory - Microbiology an d Antimicrobial susceptibilityon 05-08-2024 SARS-CoV-2 (COVID-19) RNA ANNIE+probe Ql (Unsp spec) Negative [facility] No Panel Informationon 05-08 POC Influenza B (ANNIE) Negative [facility] INR in Platelet poor plasma by Coagulation assayon 04-29-2024 INR Coag (PPP) [Relative time] 2.42 {INR} [facility] Comment on above: DESIRED INR:2.0-3.0 CONDITIONS NOT LISTED BELOW2.5-3.5 FOR PROSTHETIC HEART VALVE REPLACEMENT2.5-3.5 RECURRENT THROMBOSIS INR Coag (PPP) [Relative time] INR in Platelet poor plasma by Coagulation assay [facility] Comment on above: DESIRED INR:2.0-3.0 CONDITIONS NOT LISTED BELOW2.5-3.5 FOR PROSTHETIC HEART VALVE REPLACEMENT2.5-3.5 RECURRENT THROMBOSIS Prothrombin time (PT)on 04-10 PT Coag (PPP) [Time] 23.5 s High 9.0-11.6 [facility] PT Coag (PPP) [Time] Prothrombin time (PT) High 9.0-11.6 [facility] Progress Noteson 04-15-2024 Corporate Legal Assistant Authentication Interface Message Text EP video visit [...] his last visit, he had lexiscan at [facility] on 09/2016 that showe no reversible findings, [...] 1 year Prior to your visit, [facility] shared information with you about the [...] 180 Tablet 3 Sodium Sulfate-Mag Sulfate-KCl (Sutab) 5529-075-614 MG TABS Take by mouth. AMLODIPINE BESYLATE [...] declined Stress: No Stress Concern Present (03/27/2023) [employer] [place] [employer] - Occupational Stress Questionnaire Feeling of Stress : Not at all Social Connections: Moderately Integrated (03/27/2023) Social Connection and Isolation Panel [NHANES] Frequency of Communicatio (more content not included)... Normal [facility] Ambulatory Visit Summaryon 0 01-23-2024 Ambulatory Visit Summary Ambulatory Visit Summary EVANGELIST YBARRA Ledy :1955 Visit Date:01/23/2024 Ambulatory Visit Instructions Your [...] Only if needed Where: [address] [facility] [place] [address] [id number] Medications What How Much When Instructions Unchanged [...] ? Ne (more content not included)... Normal [facility] Provider Letteron 01-23-2024 Provider Letter Provider Letter DONALD LIZARRAGA, [address] [place] [id number] Re: EVANGELIST YBARRA Date of : [address] ELHAM JACKSON, IHSAN SWANSONODORE Ledy was evaluated at [facility] 01/30/2024 10:00:00 As this patient has been stable, they will be released back to your care. We request that you continue to check PSA annually for prostate cancer screening Should the patient develop new symptoms, worsening condition, or abnormal imaging/labs in the future, do not hesitate to refer them back. Thanks! Provider Signature: Cathie Hernandez PA-C Physician Er Medical Technician [facility] [address] [place] [address] Normal [facility] Urology Office/Clinic Noteon 01-23-2024 Urology Office/Clinic Note Urology Office/Clinic Note Chief Complaint 1 year follow up with PSA HPI Staff 68 year old patient presents today for a 1 year follow up with PSA. No recent PSA on [facility], [facility], [facility], or [facility]. DX: BPH, ED & [...] prn at prior OV pending clearance from associate pathologist but pt never filled script. Not a [...] Only if needed [address] [place] [address] [phone] Additional Instructions: Patient Education Erectile Dysfunction Documentation [...] - De (more content not included)... Normal [facility] Comment on above: Result Comment: [...] AM) Normal Negative [facility] UA Auto SS [place].plasma/Lith ium.RBC (Bld) [Mass ratio] 0-3 /HPF Normal 0-3/HPF [facility] UA Auto SS Nitrite Ql (U) Negative (7/18/23 10:19 AM) Normal Negative [facility]A Auto SS pH (U) 5.0 *NA* (01/24/23 10:19 AM) Invalid Interpretation Code 5.0 - 9.0 [facility]A Auto SS Protein (U) [Mass/Vol] Negative (01/24/23 10:19 AM) Normal Negative [facility] UA Auto SS Specific gravity (U) [Rel density] >=1.030 *NA* (01/24/23 10:19 AM) Invalid Interpretation Code 1.005 - 1.030 [facility] UA Auto SS UA Spec Desc Random Urine (01/24/23 10:19 AM) Normal [facility] UA Auto SS Urobilinogen Qn (U) 0.1333848 {Anne'U}/dL Normal 0.0 - 1.0 EU/dL [facility]A Auto SS WBC Auto Ql (U) Negative (01/24/23 10:19 AM) Normal Negative [facility] UA Auto SS WBC LM.HPF (Urine sed) [#/Area] 0-5 /HPF Normal 0-5/HPF [facility] UA Auto SS XR CSPINE MIN 4 [...] UNA SEARS Date: 2022-11-10 09:46 Normal [facility] CBC AUTO DIFFon 2022 BASO # 0.0 103/ul Normal 0.0-0.1 [facility] Comment on above: Performed By: #### C BC #### [facility] [address] [place] [address] [address] Jason Pearson Basophils/100 WBC (Bld) 0.7 % Normal 0.2-2.0 [facility] Comment on above: Performed By: #### C BC #### [facility] [address] [place] [address] Dr. Jason Pearson EO # 0.2 103/ul Normal 0.0-0.7 [facility] Comment on above: Performed By: #### C BC #### [facility] [address] [place] [address] Dr. Jason Pearson Eosinophils/100 WBC (Bld) 3.7 % Normal 0.9-7.0 [facility] Comment on above: Performed By: #### C BC #### [facility] [address] [place] [address] Dr. Jason Pearson Erythrocyte distribution width (RBC) [Ratio] 14.0 % Normal 11.0-15.[address] [facility] Comment on above: Performed By: #### C BC #### [facility] [address] [place] [address] Dr. Jason Pearson Hematocrit (Bld) [Volume fraction] 41.0 % Critically low 42.0-54.[address] [facility] Comment on above: Performed By: #### C BC #### [facility] [address] [place] [address] Dr. Jason Pearson Hemoglobin (Bld) [Mass/Vol] 13.8 g/dL Critically low 14.0-18.[address] [facility] Comment on above: Performed By: #### C BC #### [facility] [address] [place] [address] Dr. Jason Pearson IG # 0.01 10e3/ul Normal 0.00-0.03 [facility] Comment on above: Performed By: #### C BC #### [facility] [address] [place] [address] Dr. Jason Pearson IG % 0.2 % Normal 0.0-0.5 [facility] Comment on above: Performed By: #### C BC #### [facility] [address] [place] [address] Dr. Jason Pearson LYMPH # 1.3 103/ul Normal 1.2-3.8 [facility] Comment on above: Performed By: #### C BC #### [facility] [address] [place] [address] Dr. Jason Pearson Lymphocytes/100 WBC (Bld) 22.3 % Normal 20.5-60.0 [facility] Comment on above: Performed By: #### C BC #### [facility] [address] [place] [address] Dr. Jason Pearson MANUAL DIFF REQ NO Normal [facility] Comment on above: Performed By: #### C BC #### [facility] [address] [place] [address] Dr. Jason Pearson MCH (RBC) [Entitic mass] 32.6 pg Normal 25.9-34.0 [facility] Comment on above: Performed By: #### C BC #### [facility] [address] [place] [address] Dr. Jason Pearson MCHC (RBC) [Mass/Vol] 33.7 g/dL Normal 29.9-35.2 [facility] Comment on above: Performed By: #### C BC #### [facility] [address] [place] [address] Dr. Jason Pearson MCV (RBC) [Entitic vol] 96.9 fL Critically high 80.0-94.0 [facility] Comment on above: Performed By: #### C BC #### [facility] [address] [place] [address] Dr. Jason Pearson MONO # 0.6 103/ul Normal 0.3-0.8 [facility] Comment on above: Performed By: #### C BC #### [facility] [address] [place] [address] Dr. Jason Pearson Monocytes/100 WBC (Bld) 10.5 % Normal 1.7-12.0 [facility] Comment on above: Performed By: #### C BC #### [facility] [address] [place] [address] Dr. Jason Pearson NEUT # 3.7 103/ul Normal 1.4-6.5 [facility] Comment on above: Performed By: #### C BC #### [facility] [address] [place] [address] Dr. Jason Pearson Neutrophils/100 WBC (Bld) 62.6 % Normal 43.0-75.[address] [facility] Comment on above: Performed By: #### C BC #### [facility] [address] [place] [address] [address] Jason Pearson Platelet mean volume (Bld) [Entitic vol] 9.9 fL Normal 9.5-13.[address] [facility] Comment on above: Performed By: #### C BC #### [facility] [address] [place] [address] [address] Jason Pearson PLT 181 103/ul Normal 150-[address] [facility] Comment on above: Performed By: #### C BC #### [facility] [address] [address] [address] Jason Pearson RBC 4.23 106/ul Critically low 4.70-6.10 [facility] Comment on above: Performed By: #### C BC #### [facility] [address] [address] [address] Jason Pearson WBC 5.9 103/ul Normal 4.0-11.0 [facility] Comment on above: Performed By: #### C BC #### [facility] [address] [address] [address] Jason Pearson LIPID PROFILEon 2022 CHOL-HDL RATIO NORM SEE BELOW Normal [facility] Comment on above: Result Comment: 3.3 - 4.4 LOW RISK 4.4 - 7.1 AVERAGE RISK 7.1 - 11.0 MODERATE RISK >11.0 HIGH RISK Performed By: #### C MP, LIPID ####[facility] [address] [place], [place] [address]XvDr. Jason Pearson Cholesterol [Mass/Vol] 163 mg/dL Normal <=200 [facility] Comment on above: Performed By: #### C MP, LIPID ####[facility] [address] [place], [place] [address]TcDr. Jason Pearson Cholesterol in HDL [Mass/Vol] 49 mg/dL Normal 40-[address] [facility] Comment on above: Performed By: #### C MP, LIPID ####[facility] [address] [place] [id number]. Jason Pearson Cholesterol in LDL [Mass/Vol] 74.6 mg/dL Normal [facility] Comment on above: Performed By: #### C MP, LIPID ####[facility] [address] [place] [address]Dr. Jason Pearson Cholesterol.total/C holesterol in HDL [Mass ratio] 3.3 {ratio} Normal [facility] Comment on above: Performed By: #### C MP, LIPID ####[facility] [address] [place] [id number]. Jason Pearson HDL NORMAL > or = 60 mg/dl - LO W CARDIOVASCULAR RISK <40 mg/dl - HIGH CARDIOVASCULAR RISK Normal [facility] Comment on above: Performed By: #### C MP, LIPID ####[facility] [address] [place] [address]Dr. Jason Pearson LDL CALC NORMAL SEE BELOW Normal [facility] Comment on above: Result Comment: <100 mg/dl OPTIMAL 100 - 129 mg/dl NEAR OR ABOVE OPTIMAL 130 - 159 mg/dl BORDERLINE HIGH 160 - 189 mg/dl HIGH >190 mg/dl VERY HIGH Performed By: #### C MP, LIPID ####[facility] [address] [place] [address]Dr. Jason Pearson Triglyceride [Mass/Vol] 197 mg/dL Critically high <=150 [facility] Comment on above: Performed By: #### C MP, LIPID ####[facility] [address] [place] [id number]. Jason Pearson VLDL CALC 39.4 mg/dL Normal [facility] Comment on above: Performed By: #### C MP, LIPID ####[facility] [address] [place] [address]Dr. Jason Pearson MICROALBUMIN, RAND URon 03-0 mALB 1.3 mg/L Normal <=30.0 [facility] Comment on above: Performed By: #### M ALBR ####[facility] [address] [place] [address]Dr. Jason Pearson PROF 14(COMP METB)on 023 Albumin [Mass/Vol] 3.7 g/dL Normal 3.4-5.0 [facility] Comment on above: Performed By: #### C MP, LIPID #### [facility] [address] [address] [address] Jason Pearson Albumin/Globulin [Mass ratio] 1.0 {ratio} Normal [facility] Comment on above: Performed By: #### C MP, LIPID #### [facility] [address] [address] [address] Jason Pearson ALP [Catalytic activity/Vol] 56 U/L Normal 46-[address] [facility] Comment on above: Performed By: #### C MP, LIPID #### [facility] [address] [place] [address] Dr. Jason Pearson ALT [Catalytic activity/Vol] 43 U/L Normal 16-[address] [facility] Comment on above: Performed By: #### C MP, LIPID #### [facility] [address] [address] [address] Jason Pearson Anion gap [Moles/Vol] 11.2 mmol/L Normal [facility] Comment on above: Performed By: #### C MP, LIPID #### [facility] [address] [place] [address] Dr. Jason Pearson AST [Catalytic activity/Vol] 24 U/L Normal 15-[address] [facility] Comment on above: Performed By: #### C MP, LIPID #### [facility] [address] [address] [address] Jason Pearson Bilirubin [Mass/Vol] 0.9 mg/dL Normal 0.2-1.[address] [facility] Comment on above: Performed By: #### C MP, LIPID #### [facility] [address] [address] [address] Jason Pearson Calcium [Mass/Vol] 9.6 mg/dL Normal 8.5-10.1 [facility] Comment on above: Performed By: #### C MP, LIPID #### [facility] [address] [address] [address] Jason Pearson Chloride [Moles/Vol] 106 mmol/L Normal 98-[address] [facility] Comment on above: Performed By: #### C MP, LIPID #### [facility] [address] [place] [address] Dr. Jason Pearson CO2 [Moles/Vol] 30.1 mmol/L Normal 21.0-32.0 [facility] Comment on above: Performed By: #### C MP, LIPID #### [facility] [address] [place] [address] Dr. Jason Pearson Creatinine [Mass/Vol] 1.00 mg/dL Normal 0.70-1.30 [facility] Comment on above: Performed By: #### C MP, LIPID #### [facility] [address] [place] [address] Dr. Jason Pearson EGFR-AF MARTINIQUAIS >60 Normal >=60 [facility] Comment on above: Performed By: #### C MP, LIPID #### [facility] [address] [place] [address] Dr. Jason Pearson EGFR-NON AF MARTINIQUAIS >60 Normal >=[address] [facility] Comment on above: Performed By: #### C MP, LIPID #### [facility] [address] [place] [address] Dr. Jason Pearson Globulin (S) [Mass/Vol] 3.6 g/dL Normal [facility] Comment on above: Performed By: #### C MP, LIPID #### [facility] [address] [place] [address] Dr. Jason Pearson Glucose [Mass/Vol] 110 mg/dL Critically high 74-106 [facility] Comment on above: Performed By: #### C MP, LIPID #### [facility] [address] [place] [address] Dr. Jason Pearson Potassium [Moles/Vol] 4.3 mmol/L Normal 3.5-5.[address] [facility] Comment on above: Performed By: #### C MP, LIPID #### [facility] [address] [place] [address] Dr. Jason Pearson Protein [Mass/Vol] 7.3 g/dL Normal 6.4-8.2 [facility] Comment on above: Performed By: #### C MP, LIPID #### [facility] [address] [address] [address] Jason Pearson Sodium [Moles/Vol] 143 mmol/L Normal 136-145 [facility] Comment on above: Performed By: #### C MP, LIPID #### [facility] [address] [address] [address] Jason Pearson Urea nitrogen [Mass/Vol] 15.0 mg/dL Normal 7.0-18.[address] [facility] Comment on above: Performed By: #### C MP, LIPID #### [facility] [address] [address] [address] Jason Pearson Urea nitrogen/Creatinine [Mass ratio] 15.0 mg/mg Normal [facility] Comment on above: Performed By: #### C MP, LIPID #### [facility] [address] [address] [address] Jason Pearson PROTIMEon 06-28-2022 INR Coag (PPP) [Relative time] 1.11 {INR} Normal [facility] Comment on above: Performed By: #### P T ####[facility] [address] [place] [address]Dr. Jason Pearson INR GUIDELINES SEE BELOW Normal [facility] Comment on above: Result Comment: KOFI RED INR: 2.0 - 3.0 CONDITIONS NOT LISTED BELOW 2.5 - 3.5 FOR PROSTHETIC HEART VALVE REPLACEMENT 2.5 - 3.5 RECURRENT THROMBOSIS Performed By: #### P T ####[facility] [address] [place] [id number]. Jason Pearson PT Coag (PPP) [Time] 11.9 s Critically high 9.0-11.[address] [facility] Comment on above: Performed By: #### P T ####[facility] [address] [place] [address]Dr. Jason Pearson PROTIMEon 03-22-2022 INR Coag (PPP) [Relative time] 1.32 {INR} Normal [facility] Comment on above: Performed By: #### P T #### [facility] [address] [place] [address] Dr. Jason Pearson INR GUIDELINES SEE BELOW Normal [facility] Comment on above: Result Comment: KOFI RED INR: 2.0 - 3.0 CONDITIONS NOT LISTED BELOW 2.5 - 3.5 FOR PROSTHETIC HEART VALVE REPLACEMENT 2.5 - 3.5 RECURRENT THROMBOSIS Performed By: #### P T #### [facility] [address] [place] [address] Dr. Jason Pearson PT Coag (PPP) [Time] 14.0 s Critically high 9.0-11.[address] [facility] Comment on above: Performed By: #### P T #### [facility] [address] [place] [address] Dr. Jason Pearson PROTIMEon 02-07-2022 INR Coag (PPP) [Relative time] 1.08 {INR} Normal [facility] Comment on above: Performed By: #### P T #### [facility] [address] [place] [address] Dr. Jason Pearson INR GUIDELINES SEE BELOW Normal [facility] Comment on above: Result Comment: KOFI RED INR: 2.0 - 3.0 CONDITIONS NOT LISTED BELOW 2.5 - 3.5 FOR PROSTHETIC HEART VALVE REPLACEMENT 2.5 - 3.5 RECURRENT THROMBOSIS Performed By: #### P T #### [facility] [address] [place] [address] Dr. Jason Pearson PT Coag (PPP) [Time] 11.6 s Normal 9.0-11.[address] [facility] Comment on above: Performed By: #### P T #### [facility] [address] [place] [address] Dr. Jason Pearson XR HIP RT INJon [...] RUPERT MOON Date: 2022-02-07 11:09 Normal [facility] Initial Visit (Gastroenterol ogy)on 03-28-2018 Initial [...] from the patient and documented on the [facility] health history questionnaire. Pertinent positives and negatives [...] MG Oral Tablet; TAKE 1 TABLET DAILY;Therapy: (Recorded:[id number]) to Recorded Dispense: 0 Days ; #: Sufficient Tablet; Refill: 0; KP = N; Record; Last Updated By: Toyin Angeles; 03/28/2018 9:14:26 AM Flecainide Acetate 100 MG Oral Tablet; TAKE 1 TABLET EVERY 12 HOURS DAILY;Therapy: (Recorded:[id number]) to Recorded Dispense: 0 Days ; #: Sufficient Tablet; Refill: 0; KP = N; Record; Last Updated By: Toyin Angeles; 03/28/2018 9:14:26 AM HydroCHLOROthiazide 25 MG Oral Tablet; TAKE 1 TABLET DAILY;Therapy: (Recorded:[id number]) to Recorded Dispense: 0 Days ; #: Sufficient Tablet; Refill: 0; KP = N; Record; Last Updated By: Toyin Angeles; 03/28/2018 9:14:26 AM Imodium A-D CAPS;Therapy: (Recorded:[id number]) to Recorded Dispense: 0 Days ; #: Sufficient CAPS; Refill: 0; KP = N; Record; Last Updated By: Toyin Angeles; 03/28/2018 9:14:26 AM Klor-Con M20 20 MEQ Oral Tablet Extended Release; TAKE 2 TABLETS TWICE DAILY;Therapy: (Recorded:[id number]) to Recorded Dispense: 0 Days ; #: Sufficient Tablet Extended Release; Refill: 0; KP = N; Record; Last Updated By: Toyin Angeles; 03/28/2018 9:14:26 AM Lisinopril 40 MG Oral Tablet; TAKE 1 TABLET DAILY;Therapy: (Recorded:[id number]) to Recorded Dispense: 0 Days ; #: Sufficient Tablet; Refill: 0; KP = N; Record; Last Updated By: Toyin Angeles; 03/28/2018 9:14:26 AM Loratadine 10 MG Oral Tablet; TAKE 1 TABLET DAILY;Therapy: (Recorded:[id number]) to Recorded Dispense: 0 Days ; #: Sufficient Tablet; Refill: 0; KP = N; Record; Last Updated By: Toyin Angeles; 03/28/2018 9:14:26 AM Metoprolol Tartrate 100 MG Oral Tablet; TAKE 1 TABLET DAILY;Therapy: (Recorded:[id number]) to Recorded Dispense: 0 Days ; #: Sufficient Tablet; Refill: 0; KP = N; Record; Last Updated By: Toyin Angeles; 03/28/2018 9:14:26 AM Multivitamins TABS;Therapy: (Recorded:[id number]) to Recorded Dispense: 0 Days ; #: Sufficient TABS; Refill: 0; KP = N; Record; Last Updated By: Toyin Angeles; 03/28/2018 9:14:26 AM Tamsulosin HCl - 0.4 MG Oral Capsule;Therapy: (Recorded:[id number]) to Recorded Dispense: 0 Days ; #: Sufficient Capsule; Refill: 0; KP = N; Record; Last Updated By: Toyin Angeles; 03/28/2018 9:14:26 AM Vitamin B-12 ER 1500 MCG Oral Tablet Extended Release;Therapy: (Recorded:28Mar2018) to Recorded Dispense: 0 Days ; #: Sufficient TBCR; Refill: 0; KP = N; Record; Last Updated By: Toyin Angeles; 03/28/2018 9:14:26 AM Vitamin D3 2000 UNIT Oral Tablet;Therapy: (Recorded:[id number]) to Recorded Dispense: 0 Days ; #: Sufficient Tablet; Refill: 0; KP = N; Record; Last Updated By: Toyin Angeles; 03/28/2018 9:14:26 AM Warfarin Sodium 5 MG Oral Tablet; TAKE 1 TABLET DAILY;Therapy: (Recorded:[id number]) to Recorded Dispense: 0 Days ; #: Sufficient Tablet; Refill: 0; KP = N; Record; Last Updated By: Toyni Angeles; 03/28/2018 9:14:26 AM Vitals Vital Signs Recorded: 28Mar2018 09:12AMHeart Wlju70Fpgaucilshu56Rockrwhe19 0Gjnqurklq35Naorvx3 ft 2 spJkehzc619 lb 6 ozBMI Tojiyanttx79.52BSA Calculated2.67 Physical ExamConstitutional General appearance: In no [...] diarrhea; KP = N; Verified Transmission to [id number]; Last Updated By: Rafi Rhodes; 03/28/2018 9:44:38 [...] MG Oral Tablet; TAKE 1 TABLET DAILY;Therapy: (Recorded:[id number]) to RecordedCholestyramine Light 4 GM Oral Packet; MIX THE CONTENTS OF 1 POWDER PACKETWITH 2-6 OZ OF NONCARBONATED BEVERAGE AND SWALLOW ONCE DAILY;Therapy: [id number] to (Evaluate:55Stj3856) Requested for: 10Fwc1960; LastRx:[id number] OrderedFlecainide Acetate 100 MG Oral Tablet; TAKE 1 TABLET EVERY 12 HOURS DAILY;Therapy: (Recorded:[id number]) to RecordedHydroCHLOROthiazide 25 MG Oral Tablet; TAKE 1 TABLET DAILY;Therapy: (Recorded:[id number]) to RecordedImodium A-D CAPS (Loperamide HCl);Therapy: (Recorded:[id number]) to RecordedKlor-Con M20 20 MEQ Oral Tablet Extended Release; TAKE 2 TABLETS TWICE DAILY;Therapy: (Recorded:[id number]) to RecordedLisinopril 40 MG Oral Tablet; TAKE 1 TABLET DAILY;Therapy: (Recorded:[id number]) to RecordedLoratadine 10 MG Oral Tablet; TAKE 1 TABLET DAILY;Therapy: (Recorded:[id number]) to RecordedMetoprolol Tartrate 100 MG Oral Tablet; TAKE 1 TABLET DAILY;Therapy: (Recorded:[id number]) to RecordedMultivitamins TABS;Therapy: (Recorded:81Dft6065) to RecordedTamsulosin HCl - 0.4 MG Oral Capsule;Therapy: (Recorded:[id number]) to RecordedVitamin B-12 ER 1500 MCG Oral Tablet Extended Release;Therapy: (Recorded:[id number]) to RecordedVitamin D3 2000 UNIT Oral Tablet;Therapy: (Recorded:86Ddx1170) to RecordedWarfarin Sodium 5 MG Oral Tablet; TAKE 1 TABLET DAILY;Therapy: (Recorded:[id number]) to Recorded Signatures Electronically signed by : Devin Greer DO; Mar 28 2018 9:51AM EST (Author) Normal [employer] Vital Signs Date Time Vital Sign Value Performing Clinician Facility 05-29-2024 09:52-0500 Body height 187.96 cm Donald Lizarraga MD Work Phone: [facility] 05-29-2024 09:52-0500 Body mass index (BMI) [Ratio] 38.4 kg/m2 Donald Lizarraga MD Work Phone: [facility] 05-29-2024 09:52-0500 Body temperature 98.5 [degF] Donald Lizarraga MD Work Phone: [facility] 05-29-2024 09:52-0500 Body weight 135.62 kg Donald Lizarraga MD Work Phone: [facility] 05-29-2024 09:52-0500 Diastolic blood pressure 81 mm[Hg] Donald Lizarraga MD Work Phone: [facility] 05-29-2024 09:52-0500 Heart rate 73 /min Donald Lizarraga MD Work Phone: [facility] 05-29-2024 09:52-0500 SaO2% (BldA) [Mass fraction] 98 % Donald Lizarraga MD Work Phone: [facility] 05-29-2024 09:52-0500 Systolic blood pressure 137 mm[Hg] Donald Lizarraga MD Work Phone: [facility] 05-26-2024 09:18-0500 Body height 187.96 cm Donald Lizarraga MD Work Phone: [facility] 05-26-2024 09:18-0500 Body mass index (BMI) [Ratio] 38.5 kg/m2 Donald Lizarraga MD Work Phone: [facility] 05-26-2024 09:18-0500 Body temperature 98.1 [degF] Donald Lizarraga MD Work Phone: [facility] 05-26-2024 09:18-0500 Body weight 136.13 kg Donald Lizarraga MD Work Phone: [facility] 05-26-2024 09:18-0500 Diastolic blood pressure 77 mm[Hg] Donald Lizarraga MD Work Phone: [facility] 05-26-2024 09:18-0500 Heart rate 73 /min Donald Lizarraga MD Work Phone: [facility] 05-26-2024 09:18-0500 Respiratory rate 18 /min Donald Lizarraga MD Work Phone: [facility] 05-26-2024 09:18-0500 SaO2% (BldA) [Mass fraction] 96 % Donald Lizarraga MD Work Phone: [facility] 05-26-2024 09:18-0500 Systolic blood pressure 127 mm[Hg] Donald Lizarraga MD Work Phone: [facility] 05-08-2024 09:24-0400 Body height 187.96 cm [facility] 05-08-2024 09:24-0400 Body mass index (BMI) [Ratio] 38.8 kg/m2 [facility] 05-08-2024 09:24-0400 Body temperature 98 [degF] [facility] 05-08-2024 09:24-0400 Body weight 137.15 kg [facility] 05-08-2024 09:24-0400 Diastolic blood pressure 73 mm[Hg] [facility] 05-08-2024 09:24-0400 Heart rate 70 /min [facility] 05-08-2024 09:24-0400 Respiratory rate 18 /min [facility] 05-08-2024 09:24-0400 SaO2% (BldA) [Mass fraction] 98 % [facility] 05-08-2024 09:24-0400 Systolic blood pressure 167 mm[Hg] [facility] 01-23-2024 14:11-0400 Blood Pressure Location CATHIEHUNTER AZEVEDORY [facility] 01-23-2024 14:11-0400 Body temperature 97.88 [degF] CATHIE TIANA [facility] 01-23-2024 14:11-0400 Diastolic blood pressure 74 mm[Hg] CATHIE TIANA [facility] 01-23-2024 14:11-0400 Heart rate 67 /min CATHIE TIANA [facility] 01-23-2024 14:11-0400 Respiratory rate 16 /min CATHIE TIANA [facility] 01-23-2024 14:11-0400 Systolic blood pressure 138 mm[Hg] CATHIE TIANA [facility] 10-19-2023 10:19-0400 Body height 187.96 cm [facility] 10-19-2023 10:19-0400 Body mass index (BMI) [Ratio] 40.1 kg/m2 [facility] 10-19-2023 10:19-0400 Body weight 141.63 kg [facility] 10-19-2023 10:19-0400 Diastolic blood pressure 84 mm[Hg] [facility] 10-19-2023 10:19-0400 Heart rate 71 /min [facility] 10-19-2023 10:19-0400 SaO2% (BldA) [Mass fraction] 98 % [facility] 10-19-2023 10:19-0400 Systolic blood pressure 132 mm[Hg] [facility] 07-13-2023 15:30-0500 Body height 187.96 cm Donald Lizarraga Other [facility] [facility] Other 07-13-2023 15:30-0500 Body mass index (BMI) [Ratio] 40.18 kg/m2 Donald Lizarraga Other [facility] Other 07-13-2023 15:30-0500 Body weight 141.98 kg Donald Lizarraga Other [facility] Other 07-13-2023 15:30-0500 Diastolic blood pressure 86 mm[Hg] Donald Lizarraga Other [facility] Other 07-13-2023 15:30-0500 Systolic blood pressure 142 mm[Hg] Donald Lizarraga Other [facility] [facility] Other 01-24-2023 10:00-0400 Blood Pressure Location CATHIE TIANA [facility] 01-24-2023 10:00-0400 Diastolic blood pressure 80 mm[Hg] CATHIE TIANA [facility] 01-24-2023 10:00-0400 Heart rate 72 /min CATHIE TIANA [facility] 01-24-2023 10:00-0400 Respiratory rate 16 /min CATHIE HERNANDEZ [facility] 01-24-2023 10:00-0400 Systolic blood pressure 130 mm[Hg] CATHIE TIANA [facility] 10-06-2022 10:17-0400 Diastolic blood pressure 78 mm[Hg] Daigle SALAM [facility] 10-06-2022 10:17-0400 Heart rate 69 /min Daigle SALAM [facility] 10-06-2022 10:17-0400 Respiratory rate 16 /min Daigle SALAM [facility] 10-06-2022 10:17-0400 SaO2% (BldA) [Mass fraction] 99 % Daigle SALAM [facility] 10-06-2022 10:17-0400 Systolic blood pressure 122 mm[Hg] Daigle SALAM [facility] 10-06-2022 10:05-0400 Diastolic blood pressure 76 mm[Hg] Daigle SALAM [facility] 10-06-2022 10:05-0400 Heart rate 67 /min Daigle SALAM [facility] 10-06-2022 10:05-0400 Respiratory rate 18 /min Daigle SALAM [facility] 10-06-2022 10:05-0400 SaO2% (BldA) [Mass fraction] 99 % Daigle SALAM [facility] 10-06-2022 10:05-0400 Systolic blood pressure 135 mm[Hg] Daigle SALAM [facility] 10-06-2022 10:00-0400 Diastolic blood pressure 70 mm[Hg] Daigle SALAM [facility] 10-06-2022 10:00-0400 Heart rate 66 /min Daigle SALAM [facility] 10-06-2022 10:00-0400 Systolic blood pressure 134 mm[Hg] Daigle SALAM [facility] 10-06-2022 09:55-0400 Respiratory rate 16 /min Daigle SALAM [facility] 10-06-2022 09:52-0400 Body temperature 97.7 [degF] Daigle SALAM [facility] 10-06-2022 09:40-0400 Respiratory rate 1 /min Daigle SALAM [facility] 10-06-2022 08:21-0400 Blood Pressure Location Daigle SALAM [facility] 10-06-2022 08:21-0400 Body temperature 97.88 [degF] Daigle SALAM [facility] 07-29-2022 14:15-0500 Diastolic blood pressure 88 mm[Hg] Eliciagurwinder GarciaHipolito [facility] 07-29-2022 14:15-0500 Mean blood pressure 105 mm[Hg] Elicia Hipolito [facility] 07-29-2022 14:15-0500 Systolic blood pressure 138 mm[Hg] Elicia Hipolito [facility] 07-29-2022 14:11-0500 Blood Pressure Location Elicia Hipolito [facility] 07-29-2022 14:11-0500 Body temperature 97.88 [degF] Elicia Mcmillan [facility] 07-29-2022 14:11-0500 Diastolic blood pressure 87 mm[Hg] Elicia Mcmillan [facility] 07-29-2022 14:11-0500 Heart rate 77 /min Elicia Mcmillan [facility] 07-29-2022 14:11-0500 Systolic blood pressure 147 mm[Hg] Elicia Mcmillan [facility] 07-26-2022 10:45-0500 Body height 187.96 cm Donald Lizarraga Other [facility] Other 07-26-2022 10:45-0500 Body mass index (BMI) [Ratio] 41.47 kg/m2 Donald Lizarraga Other [facility] Other 07-26-2022 10:45-0500 Body weight 146.51 kg Donald Lizarraga Other [facility] Other 07-26-2022 10:45-0500 Diastolic blood pressure 84 mm[Hg] Donald Lizarraga Other [facility] Other 07-26-2022 10:45-0500 SaO2% (BldA) [Mass fraction] 97 % Donald Lizarraga Other [facility] Other 07-26-2022 10:45-0500 Systolic blood pressure 142 mm[Hg] Donald Lizarraga Other [facility] Other 10-27-2021 12:02-0400 Blood Pressure Location CATHIE HERNANDEZ [facility] 10-27-2021 12:02-0400 Diastolic blood pressure 78 mm[Hg] CATHIE HERNANDEZ [facility] 10-27-2021 12:02-0400 Heart rate 77 /min [facility] 10-27-2021 12:02-0400 Systolic blood pressure 141 mm[Hg] CATHIE HERNANDEZ [facility] Encounters Encounter Date Encounter Type Care Provider Facility Start: 12-14-2024 End: 12-14-2024 Letter encounter Emperatrizquique Carnes Work Phone: [facility] Start: 11-25-2024 End: 11-25-2024 ambulatory Blessing Granda MD Facility:[facility] Start: 11-06-2024 End: 11-06-2024 Refill Prasanth Perez MD Work Phone: [facility] Cardiology Comment on above: Refill Start: 05-29-2024 End: 05-29-2024 ambulatory Donald Lizarraga MD Work Phone: [facility] Work Phone: Start: 05-29-2024 End: 05-29-2024 Patient encounter procedure Donald Lizarraga MD Work Phone: [facility] Work Phone: Start: 05-26-2024 End: 05-26-2024 ambulatory Donald Lizarraga MD Work Phone: [facility] Work Phone: Start: 05-26-2024 End: 05-26-2024 Patient encounter procedure Donald Lizarraga MD Work Phone: [facility] Work Phone: Start: 05-08-2024 End: 05-08-2024 ambulatory [facility] Work Phone: Start: 05-08-2024 End: 05-08-2024 Patient encounter procedure [facility] Work Phone: Start: 04-29-2024 Non-patient / Non-visit [facility] Work Phone: Start: 04-29-2024 End: 04-29-2024 ambulatory Blessing Granda MD Facility:[facility] Start: 04-15-2024 End: 04-15-2024 Office outpatient visit 25 minutes Prasanth Perez MD Work Phone: [facility] Comment on above: PAF (paroxysmal atri al fibrillation) (HCC) (Primary Dx) Start: 04-15-2024 End: 04-15-2024 ambulatory PRASANTH PEREZ Facility:[facility] Start: 01-23-2024 End: 01-23-2024 ambulatory CATHIE HERNANDEZ Facility:[facility] Start: 01-23-2024 End: 01-23-2024 Patient encounter procedure CATHIE HERNANDEZ [facility] Start: 12-27-2023 End: 12-28-2023 Patient encounter status Emperatriz Karim DO Work Phone: [facility] Start: 12-27-2023 End: 12-28-2023 Refill Emperatriz Karim DO [facility] Comment on above: Refill Start: 10-19-2023 End: 10-19-2023 ambulatory [facility] Work Phone: Start: 10-19-2023 End: 10-19-2023 Patient encounter procedure [facility] Work Phone: Start: 09-07-2023 Non-patient / Non-visit [facility] [employer] Work Phone: Start: 07-20-2023 End: 07-20-2023 ambulatory Donald Elham Other [facility] Other Start: 07-20-2023 Telephone encounter Donald Elham [facility] Start: 07-13-2023 End: 07-13-2023 ambulatory Donald Elham Other [facility] Other Start: 07-13-2023 Office outpatient vi sit [address] [facility] Start: 04-04-2023 Patient encounter status Emperatriz Karim DO Work Phone: [facility] Start: 04-04-2023 Refill Emperatriz Karim DO Work Phone: [facility] Comment on above: Refill Start: 03-29-2023 End: 03-29-2023 Office outpatient visit 15 minutes Emperatriz Karim DO Work Phone: [facility] Comment on above: Persistent atrial fi brillation (HCC) (Primary Dx); Anticoagulated; JAVED on CPAP Start: 03-28-2023 End: 03-28-2023 ambulatory Donald Elham Other [facility] Other Start: 03-28-2023 Telephone encounter Donadl Elham [facility] Start: 03-18-2023 Letter encounter Emperatriz Karim D O Work Phone: [facility] Start: 02-16-2023 Telephone encounter Emperatriz Roz m DO Work Phone: [facility] Comment on above: Question about medic ation Refill Start: 02-14-2023 Patient encounter status Emperatriz Karim DO Work Phone: [facility] Start: 02-14-2023 Refill Emperatriz Karim DO Work Phone: [facility] Comment on above: Refill Start: 01-24-2023 End: 01-24-2023 Lab Drop off CATHIE HERNANDEZ [facility] Start: 01-24-2023 End: 01-24-2023 Patient encounter procedure CATHIE HERNANDEZ [facility] Start: 11-10-2022 End: 11-11-2022 ambulatory JEET HERNÁNDEZ . Facility:[facility] Start: 11-07-2022 End: 12-07-[address] DONALD LIZARRAGA Facility:[facility] Start: 10-13-2022 ambulatory JAIMEE GUYMIPATHY . Facility:[facility] Start: 10-11-2022 (Televisit) Televisit Donald Leon [facility] Start: 10-11-2022 End: 10-11-2022 ambulatory Donald Lizarraga Other [facility] Other Start: 10-10-2022 End: 11-04-2022 ambulatory SHAIKH Gurwinder FARMER Facility:[facility] Start: 10-06-2022 End: 10-06-2022 Patient encounter procedure Oxana IBARRA [facility] Start: 2022 Telephone encounter Donald Lizarraga [facility] Start: 2022 End: 09-09-[address] DONALD LIZARRAGA [facility] Other Start: 09-07-2022 End: 10-07-2022 ambulatory SHAIKH Gurwinder FARMER Facility:[facility] Start: 08-10-2022 End: 09-07-2022 ambulatory SHAIKH Gurwinder FARMER Facility:[facility] Start: 07-29-2022 End: 07-29-2022 Patient encounter procedure Elicia Mcmillan [facility] Start: 07-26-2022 End: 07-26-2022 ambulatory Donald Lizarraga Other [facility] Other Start: 07-26-2022 Office outpatient vi sit [address] [facility] Start: 07-20-2022 End: 07-21-[address] [...] encounter status Emperatriz Karim DO Work Phone[facility] Start: 02-27-2022 Refill Emperatriz Karim DO Work Phone: [facility] Comment on above: Refill Start: 02-07-2022 End: 02-07-[address] DONALD LIZARRAGA Facility:[facility] Start: 02-07-2022 End: 03-09-[address] DONALD LIZARRAGA Facility:[facility] Start: 01-15-2022 Refill Emperatriz Karim DO Work Phone: [facility] Comment on above: Refill Start: 01-07-2022 End: 02-04-[address] DONALD LIZARRAGA Facility: Start: 11-24-2021 Patient encounter status Emperatriz Carnes DO Work Phone: [facility] Start: 11-24-2021 Refill Emperatriz Carnes DO Work Phone: [facility] Comment on above: Refill Start: 11-24-2021 Refill [facility] Comment on above: Refill Start: 10-27-2021 End: 10-27-2021 Patient encounter procedure CATHIE HERNANDEZ [facility] Start: 03-28-2018 Patient encounter Devin Greer Fa cility:[facility] Start: 04-24-2017 End: 04-25-2017 Ambulatory DEFAULT PHYSICIAN Facility:[facility] Start: 03-03-2017 End: 03-04-2017 Ambulatory DEFAULT PHYSICIAN Facility:[facility] Procedures Date Procedure Procedure Detail Performing Clinician Start: 05-26-2024 Plain chest X-ray Donald Lizarraga MD Work Phone: Start: 10-06-2022 Colonoscopy Oxana IBARRA Start: [address] JADEN VILLA . Comment on above: Performed By: #### PSASC #### [facility] [address] [place] [address] Dr. Jason Pearson Start: 04-23-2020 Transurethral prostatectomy [...] of patient Donald katz Other Colonoscopy CATHIE HERNANDEZ Excision of cyst CATHIE VIK PRIETO Local anesthetic ner ve block in lower limb CATHIE HERNANDEZ Screening for malign ant neoplasm of colon Donald Lizarraga Other Screening for malign ant neoplasm of prostate Donald Lizarraga Other [facility] CATHIE Nate ESPARZASierra Plan of Treatment Date Care Activity Detail Author Start: 09-09-2027 Lipid panel Cholesterol [facility] Start: 03-10-2024 COVID-19 Vaccine ( season) COVID-19 Vaccine () [facility] Start: 03-10-2024 COVID-19 Vaccine ( season) COVID-19 Vaccine () [facility] Start: 03-10-2024 Influenza vaccination Influenza Vaccine (#1) [facility] Start: 04-09-2023 Influenza vaccination Influenza Vaccine (#1) [facility] Start: 03-29-2023 End: 03-29-2023 Telemedicine consultation with patient 03/29/2023 4:20 PM EDT Telemedicine [facility] [address] [place] [address] Emperatriz Carnes DO [address] [facility] [place] [address] [facility] Start: 03-10-2023 COVID-19 Vaccine ( season) COVID-19 Vaccine () [facility] Start: 03-10-2023 Influenza [...] acellular pertussis vaccine (product) Tdap [employer]oster [facility] Start: 1955 COVID-19 Vaccine ( formulation) COVID-19 Vaccine ( formulation) [facility] Start: 1955 Screening for malignant neoplasm of colon Colonoscopy [facility] Immunizations Immunization Date Immunization Notes Care Provider Fa [facility] 05-24-2023 Pneumococcal conjuga te 20 valent (PCV20), polysaccharide [id number] conjugate, adjuvant, PF (EUZ=561) [employer] Work Phone: [facility] 05-10-2023 influenza virus vaccine, unspecified formulation CATHIE HERNANDEZ [facility] 05-10-2023 Influenza, seasonal vaccine, quadrivalent, adjuvanted, 0.5mL dose, preservative free (YPL=642) [employer] Work Phone: [facility] 05-24-2022 influenza virus vaccine, unspecified formulation Elicia Mcmillan [facility] 05-24-2022 Influenza, seasonal vaccine, quadrivalent, adjuvanted, 0.5mL dose, preservative free (YVZ=[id number]) [employer] [facility] 12-16-2021 Pfizer Monovalent (1 2+ yrs) SARS-COV-2 (COVID-19) vaccine, mRNA, spike protein, LNP, pres. free, 30 mcg/0.3mL dose, art-sucrose (HPC=528) [employer] [facility] 12-16-2021 SARS-CoV-2 mRNA (ijhngwedwlu-vzxg-tvjiv se) vaccine Elicia Mcmillan [facility] 08-18-2021 pneumococcal conjuga te vaccine, 13 valent [employer] Work Phone: [facility] 06-09-2021 SARS-CoV-2 (COVID-19 ) mRNA BNT-162b2 vax Elicia Mcmillan [facility] 05-26-2021 SARS-CoV-2 (COVID-19 ) Ad26 vaccine, recombinant CATHIE HERNANDEZ [facility] 05-21-2021 Influenza, seasonal vaccine, quadrivalent, adjuvanted, 0.5mL dose, preservative free (ERJ=990) Emperatriz Karim DO [facility] 05-21-2021 influenza virus vaccine, unspecified formulation Emperatriz Karim DO Work Phone: [facility] 04-28-2021 influenza virus vaccine, unspecified formulation CATHIE TIANA [facility] 04-28-2021 SARS-CoV-2 (COVID-19 ) Ad26 vaccine, recombinant CATHIE HERNANDEZ [facility] 09-26-2020 Pfizer SARS-COV-2 (COVID-19) vaccine, age 12+ yrs, mRNA, spike protein, LNP, preservative free, 30 mcg/0.3mL dose (LNZ=[id number]) Emperatriz Karim DO Work Phone: [facility] Comment on above: Result Comment: 2022: [id number] 09-05-2020 Pfizer SARS-COV-2 (COVID-19) vaccine, age 12+ yrs, mRNA, spike protein, LNP, preservative free, 30 mcg/0.3mL dose (TVH=460) Emperatriz Karim DO Work Phone: [facility] Access Comment on above: Result Comment: 2022: [id number] 05-10-2020 influenza virus vaccine, unspecified formulation CATHIE TIANA [facility] 05-05-2020 influenza virus vaccine, unspecified formulation Elicia Mcmillan [facility] 05-05-2020 Influenza, seasonal vaccine, quadrivalent, adjuvanted, 0.5mL dose, preservative free (AGU=677) Emperatriz Karim DO Work Phone: [facility] 04-29-2019 influenza virus vaccine, unspecified formulation Elicia Mcmillan [facility] 04-29-2019 influenza, high dose seasonal, preservative-free Emperatriz Karim DO Work Phone: [facility] 04-26-2018 influenza virus vaccine, unspecified formulation Elicia Mcmillan [facility] 04-26-2018 Influenza, injectabl e, Madin [place] Canine Kidney, preservative free, quadrivalent Emperatriz Karim DO Work Phone: [facility] 04-19-2016 influenza virus vaccine, split virus (incl. purified surface antigen) Donald Lizarraga Other Penem[facility] K Murphy Other 04-19-2016 influenza virus vaccine, unspecified formulation [facility] 04-19-2016 pneumococcal polysaccharide vaccine, 23 valent Donald Lizarraga Other [facility] 06-23-2014 influenza virus vaccine, split virus (incl. purified surface antigen) Donald Lizarraga Other Penemarie K Murphy Other 06-23-2014 influenza virus vaccine, unspecified formulation [facility] 02-13-2014 diphtheria, tetanus toxoids and acellular pertussis vaccine, unspecified formulation Donald Lizarraga Other [facility] Payers Date Payer Category Payer Commercial Indemnity [facility] [id number] 2022 Unknown 2018 Medicare [id number] [id number]. [id number] 2018 Medicare FFS MEDICARE [id number]. [id number] 1959 Medicare [id number] 2.16840.1.161613.19 1959 Unknown [id number] 2.16.840.1.423702.19 1953 Unknown [id number] 2.16.840.1.266336.3.579.2.5 1953 Unknown [id number] 2.16.840.1.995851.3.579.2.5 1953 Unknown [id number] 2.16.840.1.098404.3.579.2.5 1953 Unknown [id number] 2.16.840.1.264451.3.579.2.5 1953 Unknown [id number] 2.16.840.1.555619.3.579.2.5 1953 Unknown [id number] 2.16.840.1.415247.3.579.2.5 93 1953 Unknown [id number] 2.16.840.1.665546.3.579.2.5 93 1953 Unknown [id number] 2.16.840.1.221584.3.579.2.5 93 1953 Unknown [id number] 2.16.840.1.517498.3.579.2.5 93 1953 Unknown [id number] 2.16.840.1.501525.3.579.2.5 93 1953 Unknown [id number] 2.16.840.1.453418.3.579.2.5 93 1953 Unknown [id number] 2.16.840.1.227401.3.579.2.5 93 1953 Unknown [id number] 2.16.840.1.001933.3.579.2.5 93 1953 Unknown [id number] 2.16.840.1.693948.3.579.2.5 93 1953 Unknown [id number] 2.16.840.1.544019.3.579.2.5 93 1953 Unknown [id number] 2.16.840.1.807690.3.579.2.5 1953 Unknown [id number] 2.16.840.1.292683.3.579.2.5 93 1953 Unknown [id number] 2.16.840.1.207151.3.579.2.5 1953 Unknown [id number] 2.16.840.1.960624.3.579.2.5 93 1953 Unknown [id number] 2.16.840.1.992683.3.579.2.5 1953 Unknown [id number] 2.16.840.1.996814.3.579.2.5 93 1953 Unknown [id number] 2.16.840.1.599425.3.579.2.5 93 1953 Unknown [id number] 2.16.840.1.567782.3.579.2.5 93 1953 Unknown [id number] 2.16.840.1.019863.3.579.2.7 27 1953 Unknown [id number] 2.16.840.1.037590.3.579.2.7 32 1953 Unknown [id number] 2.16.840.1.394456.3.579.2.1 96 1953 Unknown [id number] 2.16.840.1.603988.3.579.2.1 96 Unknown [id number] Unknown Romel BC/BS [id number] Social History Date Type Detail Facility Start: 12-28-2018 End: 09-03-2020 Tobacco smoking status Never smoked tobacco (finding) [facility] Tobacco smoking status Never [facility] Start: 03-27-2023 Sex Assigned At Male [facility] Start: 12-28-2018 Tobacco use and exposure Smokeless tobacco non-user [facility] Start: 12-28-2018 End: 03-27-2023 Alcohol intake Ex-drinker (finding) [facility] Start: 1955 Sex Assigned At Not on file [facility] Start: 1955 Sex Assigned At Male [facility] Start: 03-27-2023 History of Social function [facility] Within the last year , have you been afraid of your partner or ex-partner? No [facility] Do you belong to any clubs or organizations such as congregation groups, unions, fraternal or athletic groups, or [...] true [facility] Start: 03-27-2023 Education 17 [facility] Start: 08-09-2018 End: 05-26-2024 Sex Male (finding) [facility] Start: 03-27-2023 Details of drug misuse behavior Has never misused drugs (situation) [facility] Functional Status Date Assessment Result Facility 01-23-2024 Functional Status N/A [facility] 01-24-2023 Functional Status N/A [facility] 10-06-2022 Functional Status N/A [facility] 07-29-2022 Functional Status N/A [facility] Clinical Notes 11-24-2021 to 05-08-2024 Note Date & Type Note Facility 05-08-2024 Evaluation note Diagnosis Onset Date Resolution Bronchitis acute May 08, 2024 9:18am Cough noneactive May 26, 2024 9:07am [facility] Work Phone: 1(212) 217-597110-07-2024 History of Present illness Narrative* Prasanth Perez [...] his last visit, he had lexiscan at [facility] on 09/2016 that showe no reversible findings, [...] 1 year Prior to your visit, [facility] shared information with you about the [...] 180 Tablet 3 Sodium Sulfate-Mag Sulfate-KCl (Sutab) 3502-488-756 MG TABS Take by mouth. AMLODIPINE BESYLATE [...] declined Stress: No Stress Concern Present (03/27/2023) [place] [employer] - Occupational Stress Questionnaire Feeling of Stress : Not at all Social Connections: Moderately Integrated (03/27/2023) Social Connection and Isolation Panel [NHANES] Frequency of Communication with Friends and Family: More than three times a week Frequency of Social Gatherings with Friends and Family: Twice a week Attends Gnosticism Services: Never Active Member of Clubs or Organizations: Yes Attends Club or Organization Meetings: More than 4 times per year Marital Status: Intimate Partner Violence: Not At Risk (03/27/2023) Humiliation, Afraid, Rape, and Kick questionnaire Fear of Current or Ex-Partner: No Emotionally Abused: No Physically Abused: No Sexually Abused: No No family history on file. documented in this [id number] Hospital Discharge instructions Patient Education 01/23/2024 14:28:31 [...] Follow these instructions at home: Medicines Take uhfs-jim-vcibcva and prescription medicines only as told by [...] Document Reviewed: 09/22/2021 Elsevier Patient Education 2022 AlephD. Follow Up Care 01/24/2023 10:37:20 With:TIANA GARCIA, CATHIE Ruano, URL Address: [place] [address] [phone] When: only if needed [facility] 07-16-2024 NotePatient Education Urology Erectile Dysfunction Erectile [...] these instructions at home: Medicines ? Take rwmb-bmb-tnfvnei and prescription medicines only as told by [...] nicotine or tobacco. 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 Last televisit- 08/2020- He had to ER on 05/22/20 when he had pain with a blood clot- needing to stop his coumadin for a short period of time. He felt like he has been in sinus rhythm on his self checks. He was on Rimemekdsi902 mg BID and Lopressor 100 mg BID. Since patient last saw me, he had TURP done- no further hematuria or urgency. PSA has been stable. Colonoscopy was normal per patient. No melena etc. ALLERGIES: Allergies Allergen Reactions Other (Review Comments!) MEDICATIONS: Current Outpatient Medications Medication Sig Dispense Refill Sodium Sulfate-Mag Sulfate-KCl (Sutab) 7818-163-950 MG TABS Take by mouth. AMLODIPINE BESYLATE [...] refused Stress: No Stress Concern Present (03/27/2023) [place] [employer] - Occupational Stress Questionnaire Feeling of Stress : Not at all Social Connections: Moderately Integrated (03/27/2023) Social Connection and Isolation Panel [NHANES] Frequency of Communication with Friends and Family: More than three times a week Frequency of Social Gatherings with Friends and Family: Twice a week Attends Gnosticism Services: Never Active Member of Clubs or [...] Assessment/Plan: Persistent atrial fibrillation (HCC) (Primary Diagnosis) [088779] Anticoagulated [910185] JAVED on CPAP [040313] Patient doing well overall as far as [...] Electrophysiology 03/29/23 4:52 PM documented in this [id number] Telephone encounter Note* Telephone Encounter - Crystal Putnam RN - 02/17/2023 9:17 AM EDT LVM for pt that new generic Rx (Toprol XL) was sent over to [facility]. [id number] Miscellaneous Notes* Telephone Encounter - Crystal Putnam RN - 02/17/2023 9:17 AM EDT LVM for pt that new generic Rx (Toprol XL) was sent over to [facility]. * Telephone Encounter - Dexter October - 02/16/2023 9:38 AM EDT [facility] is calling wanting to know if they can dispense Metoprolol SUCC- ER 100 mg instead ofthe Toprol XL 100 mg, pt's insurance will only cover the generic brand. Please contact [phone] use Re:[phone]. Thank you documented in this [id number] Telephone encounter Note* Telephone Encounter - Aundrea Davis PharmD - 02/16/2023 3:00 PM EDT Patient called stating the original prescription that was sent had a KP for Toprol XL 100mg which is not covered. Please send over generic Metoprolol ER Succinate 100mg. Thank you! [id number] Miscellaneous Notes* Telephone Encounter - Aundrea Davis PharmD - 02/16/2023 3:00 PM EDT Patient called stating the original prescription that was sent had a KP for Toprol XL 100mg which is not covered. Please send over generic Metoprolol ER Succinate 100mg. Thank you! documented in this [id number] Telephone encounter Note* Telephone Encounter - Heather Renteria - 02/16/2023 9:38 AM EDT [facility] is calling wanting to know if they can dispense Metoprolol SUCC- ER 100 mg instead ofthe Toprol XL 100 mg, pt's insurance will only cover the generic brand. Please contact [phone] use Re:[phone]. Thank you O Entregador Work Phone: 1(529) 293-375507-18-2023 Hospital Discharge instructions Patient Education 01/24/2023 10:34:12 [...] Follow these instructions at home: Medicines Take tras-qav-muwlqdy and prescription medicines only as told by [...] provider. Document Revised: 09/22/2021 Document Reviewed: 09/22/2021 [employer] Patient Education 2022 AlephD. Follow Up Care 10/27/2021 12:15:55 With:TIANA GARCIA, CATHIE Ruano, URL Address: [address] [facility] [place] [address] When:Within 1 Year(s) [facility] 04-04-2023 Evaluation note* Encounter Date Diagnosis [...] I48.91) stable. continue w present meds and associate pathologist. Penemarie K Murphy Other 03-30-2023 Evaluation + Plan noteExtracted from: Title:CSB post op Author:Daljit Gooden MD Date:10/06/22 Plan Transfer/Discharge: Transfer/Discharge Discharge when meets criteria ( To home ). Extracted from: Title:CYNDYB GA Author:Daljit Gooden MD Date:10/06/22 Plan [place] [employer] Anesthesiologists (ASA) physical status classification: Class III. Anesthetic Preoperative Plan: Anesthesia General. Future Appointments Appointment Date:01/25/2023 10:00:00 AM Scheduled Provider:Erica Chua MD Location:[facility] Appointment Type:URO Office Visit [facility]03-30-2023 Hospital Discharge instructions Patient Education 10/06/2022 [...] 03/22/2005 Document Revised: 10/11/2018 Document Reviewed: 10/11/2018 [employer] Patient Education 2020 [employer] 10/06/2022 10:00:07 Hemorrhoids, Dtdn-vw-Lyte Hemorrhoids Hemorrhoids are swollen veins that may [...] 3 times a day. General instructions Take jbko-yby-mvrdwkq and prescription medicines only as told by [...] 04/04/2009 Document Revised: 07/04/2019 Document Reviewed: 11/15/2018 [employer] Patient Education 2020 AlephD. Follow Up Care 07/29/2022 15:02:48 With:Oxana IBARRA Address: [address] [place] [address]. [address] [place] [address] Business (1) When: Unknown Comments:Call for any problems. [facility]01-20-2023 Hospital Discharge instructions Patient Education 07/29/2022 [...] including vitamins, herbs, eye drops, creams, and hwir-zxp-stknrpb medicines. Any problems you or family members [...] 06/23/2001 Document Revised: 04/18/2018 Document Reviewed: 09/06/2016 [employer] Patient Education [email or web address]. Follow Up Care 07/05/2022 09:47:30 With:Elicia Mcmillan CNP Address: When:1 to 2 weeks Comments:Following colonoscopy. [facility] 01-17-2023 Evaluation note* Encounter Date [...] way. Continue follow-up with cardiology as scheduled. Penemarie K Murphy Other 01-11-2023 NoteCONSULTATION CONSULTATION DATE: 07/20/2022 HISTORY [...] in three months' time unless otherwise indicated.[facility] 07-20-2022 NoteCONSULTATION PROCEDURE DATE: 07/20/2022 PREOPERATIVE [...] fan-like pattern. 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 Patient agrees to this plan.[facility] [id number] NoteCONSULTATION CONSULTATION DATE: 03/03/2022 This is a 81-wfqt-jgwdkdbvf returning to clinic for a 3-month follow-up. [...] be followed up in the office following.[facility] [id number] Telephone encounter Note* Telephone Encounter - Erica Beckett - 03/01/2022 11:40 AM EDT Patient has not been seen by this specialist in more than 1 year. Please contact patient to schedule office visit. Thank you [id number] Miscellaneous Notes* Telephone Encounter - Erica Beckett - 03/01/2022 11:40 AM EDT Patient has not been seen by this specialist in more than 1 year. Please contact patient to schedule office visit. Thank you documented in this [id number] Telephone encounter Note* Telephone Encounter - Irina Nguyen - 01/18/2022 7:23 AM EDT Last visit with Cardiology (Emperatriz Carnes) on 09/03/2020 Requested Prescriptions Pending Prescriptions Disp Refills metoprolol (TOPROL-XL) 100 mg XL tablet [Pharmacy Med Name: METOPROLOL SUCCINATE ER TABS 100MG] 90 Tablet 3 Sig: TAKE 1 TABLET DAILY No PCP on file No PCP on file [id number] Miscellaneous Notes* Telephone Encounter - Irina Nguyen - 01/18/2022 7:23 AM EDT Last visit with Cardiology (Emperatriz Carnes) on 09/03/2020 Requested Prescriptions Pending Prescriptions Disp Refills metoprolol (TOPROL-XL) 100 mg XL tablet [Pharmacy Med Name: METOPROLOL SUCCINATE ER TABS 100MG] 90 Tablet 3 Sig: TAKE 1 TABLET DAILY No PCP on file No PCP on file documented in this [id number] Telephone encounter Note* Telephone Encounter - Anirudh Gonzalez RPh - 11/29/2021 3:11 PM EDT Pt called back, will talk to his [facility] to get refill [facility] Work Phone: [phone]) [phone] Miscellaneous Notes* Telephone Encounter - Anirudh Gonzalez RPh - 11/29/2021 3:11 PM EDT Pt called back, will talk to his [facility] to get refill * Telephone Encounter - Asia Laguna RN - 11/29/2021 2:52 PM EDT Left message for pt to return call to ACC at [phone] 2nd attempt * Telephone Encounter - Cathie Whitley RN - 11/26/2021 2:46 PM EDT Left message for patient to please call back. 1st attempt * Telephone Encounter - Anirudh Gonzalez RPh - 11/25/2021 9:37 AM EDT [facility] Staff, Please contact pt re the following issue. Per 09/03/21 note pt goes to [facility] , they should refill, will deny Thanks! * Telephone Encounter - Tamiko Rodriguez PharmD - 11/24/2021 4:09 PM EDT Requested Prescriptions Pending Prescriptions Disp Refills warfarin (COUMADIN) 5 MG tablet 90 Tablet 0 Sig: Take 1 Tablet by mouth daily. No PCP on file No PCP on file documented in this [id number] Telephone encounter Note* Telephone Encounter - Asia Laguna RN - 11/29/2021 2:52 PM EDT Left message for pt to return call to [facility] at [phone] [facility]nd attempt [facility] Work Phone: [phone] 182-472505-20-2022 Telephone encounter Note* Telephone Encounter - Cathie Whitley RN - 11/26/2021 2:46 PM EDT Left message for patient to please call back. 1st attempt [id number] Telephone encounter Note* Telephone Encounter - Anirudh Gonzalez RPh - 11/25/2021 9:37 AM EDT [facility] Staff, Please contact pt re the following issue. Per 09/03/21 note pt goes to [facility] , they should refill, will deny Thanks! [id number] Telephone encounter Note* Telephone Encounter - Tamiko Rodriguez PharmD - 11/24/2021 4:09 PM EDT Requested Prescriptions Pending Prescriptions Disp Refills warfarin (COUMADIN) 5 MG tablet 90 Tablet 0 Sig: Take 1 Tablet by mouth daily. No PCP on file No PCP on file [facility] Work Phone: 1(510) 391-465905-18-2022 Miscellaneous Notes* Telephone Encounter - Tamiko Rodriguez [...] [Pharmacy Med Name: POTASSIUM CHLORIDE ER (DISP) [id number]] 180 Tablet 3 Sig: TAKE 1 TABLET TWICE A DAY Refused Prescriptions Disp Refills warfarin (COUMADIN) 5 MG tablet [Pharmacy Med Name: WARFARIN TABS 5MG] 90 Tablet 3 Sig: TAKE 1 TABLET DAILY (INR: 2.33) No PCP on file No PCP on file documented in this encounterMetroHealthEvaluation + Plan note Future Appointments Appointment Date:11/01/2022 09:45:00 AM Scheduled Provider:Kun Cole MD, Min Villagomez Location:[facility] Appointment Type:URO Office Visit Diagnostic Tests Pending * PSA Total 10/27/21 [facility] evaluation + Plan note Future Appointments Appointment Date:10/06/2022 09:00:00 AM Scheduled Provider: Location:[facility] Appointment Type:Surgery FT Appointment Date:11/01/2022 09:45:00 AM Scheduled Provider:Min Tristan Jr., MD Location:[facility] Appointment Type:URO Office Visit [facility] Evaluation + Plan note Future Appointments Appointment Date:01/30/2024 10:00:00 AM Scheduled Provider:CATHIE HERNANDEZ PA-C Location:[facility] Appointment Type:URO Office Visit [facility] evaluation + Plan note Future Appointments Appointment Date:01/30/2024 10:00:00 AM Scheduled Provider:CATHIE HERNANDEZ PA-C Location:[facility] Appointment Type:URO Office Visit Diagnostic Tests Pending * [facility] (paroxysmal atrial fibrillation) [...] present documented in this encounter [facility] noteNo [employer] Other Evaluation note* Diagnosis Persistent atrial fibrillation [...] in this encounter [facility] noteNo assessment information [facility] Work Phone: Evaluation note* Diagnosis PAF [...] Diagnosis Onset Date Resolution Status Bronchitis acute [facility] Work Phone: History general Narrative - [...] Hospitalization History No Hospitalization histo ry information Penemarie K Murphy Other Hospital course Narrative No data available for this section [facility] Hospital Discharge instructions No data available for this section [facility] progress note No data available for this section [facility] Summary Purpose Family History Relationship [...] section and content) DATE CREATED AUTHOR 01/02/2018 [facility] DATE CREATED AUTHOR AUTHOR'S ORGANIZ ATION 04/24/2018 [facility] DATE CREATED AUTHOR AUTHOR'S ORGANIZ ATION 05/06/2018 [facility] DATE CREATED AUTHOR AUTHOR'S ORGANIZ ATION 12/16/2022 [facility] DATE CREATED AUTHOR AUTHOR'S ORGANIZ ATION 01/25/2024 [facility] DATE CREATED AUTHOR AUTHOR'S ORGANIZ ATION 04/15/2024 [facility] DATE CREATED AUTHOR AUTHOR'S ORGANIZ ATION 05/28/2024 [facility] DATE CREATED AUTHOR AUTHOR'S ORGANIZ ATION 12/06/2024 [facility] Reason for Visit (unrecogniz ed section and content) Reason Comments Refill Reason Onset Date Comments Refill 11/24/2021 Reason Onset Date Comments Refill 02/14/2023 Reason Onset Date Comments Question about medication 02/16/2023 Reason Onset Date Comments Refill 02/16/2023 Reason Comments Atrial fibrillation/flutter Reason Comments New patient, to establish relationship Reason Onset Date Comments Refill 11/06/2024 Care Teams (unrecognized sec tion and content) Efficiency Expert Relationship Specialty Start Date End Date Emperatriz Carnes DO [address] [facility] [address] [facility] [place] [address] Physician Electrophysiology 04/14/20 Efficiency Expert Relationship Specialty Start Date End Date Emperatriz Carnes DO [address] [facility] [address] [facility] [address] [place] [address] Physician Electrophysiology 04/14/20 Efficiency Expert Relationship Specialty Start Date End Date Emperatriz Carnes DO [address] [facility] [address] [address] [place] [address] Physician Electrophysiology 04/14/20 Efficiency Expert Relationship Specialty Start Date End Date Emperatriz Carnes DO [address] [place] [address] [place] [address] Physician Electrophysiology 04/14/20 Efficiency Expert Relationship Specialty Start Date End Date Emperatriz Carnes DO [address] [place] [address] [place] [address] Physician Electrophysiology 04/14/20 Efficiency Expert Relationship Specialty Start Date End Date Emperatriz Carnes DO [address] [place] [address] [place] [address] Physician Electrophysiology 04/14/20 Efficiency Expert Relationship Specialty Start Date End Date Emperatriz Carnes DO [address] [facility] [place] [address] Physician Electrophysiology 04/14/20 Efficiency Expert Relationship Specialty Start Date End Date Empreatriz Carnes, DO [address] [facility] [place] [id number] Physician Electrophysiology 04/14/20 Efficiency Expert Relationship Specialty Start Date End Date Emperatriz Carnes, DO [address] [facility] [address] [place] [id number] Physician Electrophysiology 04/14/20 Team Status: Active Member [...] October 19, 2023 End: October 19, 2023 Efficiency Expert Relationship Specialty Start Date End Date Emperatriz Carnes, DO [address] [facility] [address] [place] [id number] Physician Electrophysiology 04/14/20 Efficiency Expert Relationship Specialty Start Date End Date Emperatriz Carnes, DO [address] [facility] [place] [address] Physician Electrophysiology 04/14/20 Team Status: Active Member [...] May 29, 2024 End: May 29, 2024 Efficiency Expert Relationship Specialty Start Date End Date Emperatriz Carnes DO [address] [facility] [place] [address] Physician Electrophysiology 04/14/20 Prasanth Perez MD [address] [facility] [place] [address] Physician Cardiac Electrophysiology 05/11/24 Efficiency Expert Relationship Specialty Start Date End Date Emperatriz Carnes DO [address] [facility] [place] [address] Physician Electrophysiology 04/14/20 Prasanth Perez MD [address] [facility] [place] [address] Physician Cardiac Electrophysiology 05/11/24 Goals (unrecognized section [...] BE BASED ON THE PRIMARY CLINICAL RECORDS. [facility]. provides no warranty or guarantee of the accuracy or completeness of information in this document.
[2024-12-16 07:51] LABS: INR 2.24; Prothrombin Time 21.9 sec (9.0-11.6)
[2024-12-16 08:02] VITALS: BP 136/71; PULSE 62; TEMP 36.3; O2SAT 96
[2024-12-16 08:49] VITALS: BP 138/65; PULSE 62; PULSE 72; O2SAT 98; O2SAT 99
[2024-12-16 08:50] VITALS: BP 140/73
[2024-12-16] MEDS: BUPIVACAINE HCL 0.25% PF 25 MG/10 ML VIAL 4 ML INJ (08:53)
[2024-12-16] MEDS: IOHEXOL 240 MG/ML - 10 ML VIAL 12 MG INJ (08:54)
[2024-12-16] MEDS: LIDOCAINE HCL 2% 400 MG/20 ML MDV INJ (08:54)
--- NOTE | 2024-12-16 08:54 | W.PM.PROCNOT ---
Date of procedure: 12/16/24 Pre-op diagnosis: Pain due to right hip osteoarthritis Post-op diagnosis: same as pre-op Procedure: Procedure: Right hip injection Medications: Bupivacaine 0.25% 4cc, depomedrol 40mg I explained the details of the procedure to the patient including the risks, benefits and alternatives. We had an informed discussion and the patient verbalized understanding and signed the consent form. All questions were answered appropriately.? A time out was performed.? After obtaining a comfortable prone position, the skin overlying the hip, subtrochanteric region, and joint space were prepped with alcohol. A sterile syringe containing the above medication was attached to a 25 guage, 3.5 inch spinal needle under strict aseptic technique. X ray was used to identify the joint space and the femoral neck on the right side.? The needle was than advanced through the subcutaneous tissue after local injection of 1% lidocaine.? The contents of the syringe were gently injected without any resistance into the joint space after contrast (isovue) outlined the appropriate area. The needle was removed and pressure was applied to the injection site to decrease the incidence of ecchymosis and hematoma formation.? A sterile bandage was applied. Anesthesia: Local Surgeon: Blessing Granda Pathology: none sent Condition: stable Disposition: no change
== END 2024-12-16 08:58 | disposition home or self-care (01) ==
LOC: SURGOUT 07:27
PROVIDERS: PCP Family Medicine; Visit Provider Anesthesiology
DX: M25.551 Pain in right hip (principal); M16.11 Unilateral primary osteoarthritis, right hip
CPT/HCPCS: 20610; 36415; 77002; 85610; J0665; Q9966

== ENCOUNTER 2024-12-23 12:37 | Outpatient (OUT) | payer MEDICARE, SELFPAY ==
--- NOTE | 2024-12-23 13:20 | PM.CN ---
Consult Note: HPI Data of Consult Patient: known to practice within the last 3 years Consult date: 12/23/24 Requesting Physician: Blessing Granda MD Primary Care Provider: Rocio Bagley MD Consult Narrative Reason for consult: right hip, right knee pain Narrative: 69yom who presents for assessment. notes significant relief of ~80% after recent right hip injection. continues to have right knee pain. continues in a series of provider directed home exercises, without significant benefit. uses pain meds as needed. denies adverse med side effects. cc:: CC: Blessing Granda MD Review of Systems ROS Status of ROS 10 or more systems reviewed and unremarkable except as noted in history and below [facility] Medical History Atrial fibrillation ?I48.91 - Unspecified atrial fibrillation (ICD-10) Low back pain ?M54.50 - Low back pain, unspecified (ICD-10) Osteoarthritis ?M19.90 - Unspecified osteoarthritis, unspecified site (ICD-10) Colon cancer ?C18.9 - Malignant neoplasm of colon, unspecified (ICD-10) Obesity ?E66.9 - Obesity, unspecified (ICD-10) Kidney stone ?N20.0 - Calculus of kidney (ICD-10) Enlarged prostate ?N40.0 - Benign prostatic hyperplasia without lower urinary tract symptoms (ICD-10) Pulmonary embolism ?I26.99 - Other pulmonary embolism without acute cor pulmonale (ICD-10) Sleep apnea ?G47.30 - Sleep apnea, unspecified (ICD-10) High cholesterol ?E78.00 - Pure hypercholesterolemia, unspecified (ICD-10) Hypertension ?I10 - Essential (primary) hypertension (ICD-10) Surgical History S/P TURP ?Z90.79 - Acquired absence of other genital organ(s) (ICD-10) History of colon resection ?Z90.49 - Acquired absence of other specified parts of digestive tract (ICD-10) Social History Little interest or pleasure in doing things: not at all Feeling down, depressed, or hopeless: not at all Meds Home Medications and Allergies Home Medications ?Medication ?Instructions ?Recorded ?Confirmed ?Type atorvastatin 20 mg tablet 20 mg PO QDAY 12/22/22 12/16/24 History calcium carbonate 300 mg PO DAILY 12/22/22 12/16/24 History flecainide 100 mg tablet 100 mg PO Q12H 12/22/22 12/16/24 History hydrochlorothiazide 25 mg tablet 25 mg PO QDAY 12/22/22 12/16/24 History lisinopril 40 mg tablet 40 mg PO QDAY 12/22/22 12/16/24 History loratadine 10 mg tablet 10 mg PO DAILY 12/22/22 12/16/24 History metoprolol succinate 100 mg 100 mg PO QDAY 12/22/22 12/16/24 History tablet,extended release 24 hr multivitamin 1 tab PO DAILY 12/22/22 12/16/24 History olopatadine 0.1 % eye drops drp ophthalmic (eye) BID 12/22/22 History potassium chloride 20 mEq 20 meq PO BID 12/22/22 12/16/24 History tablet,extended release(part/cryst) (Klor-Con M) warfarin 5 mg tablet 5 mg PO QDAY 12/22/22 12/16/24 History gabapentin 300 mg capsule 900 mg PO BID 01/17/24 12/16/24 History baclofen 10 mg tablet 10 mg PO TID PRN pain 06/25/24 12/16/24 History hydrocodone 5 mg-acetaminophen 325 1 tab PO BID PRN pain #14 tabs 12/04/24 12/16/24 Rx mg tablet Allergies Allergy/AdvReac Type Severity Reaction Status Date / Time No Known Drug Allergies Allergy Verified 12/16/24 08:04 Exam Narrative Exam Narrative: Psych-alert and oriented x 3.? Attentive and appropriate, constitutionally normal, displays normal mood and affect per situation.? There are no obvious deficits in memory, reasoning, or intellect. Extremities-lower extremities are warm with minimal edema and palpable pulses. Knee-examination of the right knee reveals tenderness to palpation over the superior, inferior, lateral, and medial aspect of the knee.? Some swelling is noted without erythema. Pain is elicited with flexion and extension of the knee both actively and passively.? Some grinding is noted with these motions.? There is no notable ligamental laxity or instability.? Coordination remains intact.? Gait remains antalgic. Assessment and Plan Assessment and Plan (1) Right knee pain: Qualifiers: Chronicity: chronic Qualified Code(s): M25.561 - Pain in right knee; G89.29 - Other chronic pain (2) Osteoarthritis of right hip: Qualifiers: Osteoarthritis type: primary Qualified Code(s): M16.11 - Unilateral primary osteoarthritis, right hip Plan 69yom who presents for assessment. i am glad that he had good relief after recent right hip injection. discussed that at some point, this pain may return, and we could reassess at that point. in terms of right knee pain, will proceed with right knee injection. he is in agreement. meds reviewed, no changes. follow up in 3 months. procedure: right knee injection medications: hyaluronic acid I explained the details of the procedure to the patient including the risks, benefits and alternatives. We had an informed discussion and the patient verbalized understanding and signed the consent form. All questions were answered appropriately.? A time out was performed.? After obtaining a comfortable seated position, the right knee was prepped with alcohol x3. A syringe containing the above medication was attached to a 25 gauge, 1.5 inch needle under strict aseptic technique. The lateral tibial plateau was palpated.? The needle was then advanced through the subcutaneous tissue in a medial and superior direction towards the joint space.? The contents of the syringe were gently injected without any resistance. The needle was removed and pressure was applied to the injection site to decrease the incidence of ecchymosis and hematoma formation.? A sterile bandage was applied.
== END 2024-12-23 12:38 | disposition home or self-care (01) ==
LOC: PM 12:38
PROVIDERS: PCP Family Medicine; Visit Provider Anesthesiology
DX: M25.561 Pain in right knee (principal); G89.29 Other chronic pain; M16.11 Unilateral primary osteoarthritis, right hip
CPT/HCPCS: 20610; J7318

== ENCOUNTER 2025-01-07 02:30 | Outpatient (RCR) | payer MEDICARE, SELFPAY | END 2025-02-06 16:57 | disposition home or self-care (01) | LOC: MM 02:30 | PROVIDERS: PCP Family Medicine; Visit Provider Internal Medicine | DX: Z51.81 Encounter for therapeutic drug level monitoring (principal); Z79.01 Long term (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 | CPT/HCPCS: 85610; G0463 ==

== ENCOUNTER 2025-02-07 00:19 | Outpatient (RCR) | payer MEDICARE, SELFPAY | END 2025-03-06 12:48 | disposition home or self-care (01) | LOC: MM 00:19 | PROVIDERS: PCP Family Medicine; Visit Provider Internal Medicine | DX: Z51.81 Encounter for therapeutic drug level monitoring (principal); Z79.01 Long term (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 | CPT/HCPCS: 85610; G0463 ==

== ENCOUNTER 2025-02-13 08:45 | Outpatient (OUT) | payer MEDICARE, SELFPAY ==
--- OUTSIDE RECORDS SUMMARY | 2025-02-13 08:47 | XMS_ITS | Clinical Summary ---
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
--- OUTSIDE RECORDS SUMMARY | 2025-02-13 08:47 | XMS_ITS | Clinical Summary ---
Author Organization [facility] Address [address] [place] [address] Care Team Providers Care Brimmer Blocker Name Role Phone Rocio Bagley MD Primary Care Provider [phone] Allergies No known active allergies Medications amLODIPine (NORVASC) 5 mg tablet Take 5 mg by mouth once daily. Active aspirin, enteric coated (ASPIRIN, ENTERIC COATED) 81 mg EC tablet Take 81 mg by mouth once daily. Active carvedilol (COREG) 25 mg tablet Take 25 mg by mouth twice daily with meals. Active [place]-3 Fatty Acids-Vitamin E (FISH OIL) 1,000 mg [...] 09/09/2003 Shingrix Vaccine (1 of 2) 09/09/2003 Advance Directive Discussion 07/10/2024 Influenza Vaccine (#1) 2025 RSV Vaccine (1 - 1-dose 75+ series) [address] [place] [address] BLUE CARD PPO OOS Care Teams Brimmer Blocker Relationship Specialty [place] [address] [place] [phone] PCP - General Family Medicine 10/24/14
--- OUTSIDE RECORDS SUMMARY | 2025-02-13 08:47 | XMS_ITS | Clinical Summary ---
Author Organization [facility] Address [address] [place] [address], [address] [place] [address] Care Team Providers Care Ball Holder Name Role Phone Unavailable Primary Care Provider [...] of Treatment Not on file Insurance MEDICARE [employer] MEDICARE SUPP
--- OUTSIDE RECORDS SUMMARY | 2025-02-13 08:47 | XMS_ITS | Clinical Summary ---
Author Organization [facility] Address [address] [place] [address] Phone Care Team Providers Care Older Adult Social Work Specialist Name Role Phone Rocio Bagley MD Primary Care Provider [phone] Social History Tobacco Use Types Packs/Day Years Used Date Smoking Tobacco: Never Assessed Sex and Gender Information Value Date Recorded Sex Assigned at Not on file Legal Sex Male 12:38 PM EST Gender Identity Not on file Sexual Orientation Not on file Plan of Treatment Not on file Care Teams Older Adult Social Work Specialist Relationship Specialty Start Date End Date Rocio Bagley MD [address] [place] [address] [address] [place] [address] PCP - General 03/28/18
--- NOTE | 2025-02-13 09:05 | PM.CN ---
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 noting worsening left hip pain and burning since last visit. has historically failed to benefit from > 6 weeks of PT, heat, ice, tylenol, and cannot take NSAIDs on coumadine. pt noting >50% improvement from right hip and right knee injection. Pain today 3-4/10 aching increasing with standing, walking, bending, lifting, twisting. pain improved with sitting, sleeping, lying flat on the floor. cc:: CC: Trista Lyman NP Review of Systems ROS Musculoskeletal Reports: joint pain PFSH PFSH Medical History Atrial fibrillation ?I48.91 - Unspecified atrial fibrillation (ICD-10) Low back pain ?M54.50 - Low back pain, unspecified (ICD-10) Osteoarthritis ?M19.90 - Unspecified osteoarthritis, unspecified site (ICD-10) Colon cancer ?C18.9 - Malignant neoplasm of colon, unspecified (ICD-10) Obesity ?E66.9 - Obesity, unspecified (ICD-10) Kidney stone ?N20.0 - Calculus of kidney (ICD-10) Enlarged prostate ?N40.0 - Benign prostatic hyperplasia without lower urinary tract symptoms (ICD-10) Pulmonary embolism ?I26.99 - Other pulmonary embolism without acute cor pulmonale (ICD-10) Sleep apnea ?G47.30 - Sleep apnea, unspecified (ICD-10) High cholesterol ?E78.00 - Pure hypercholesterolemia, unspecified (ICD-10) Hypertension ?I10 - Essential (primary) hypertension (ICD-10) Surgical History S/P TURP ?Z90.79 - Acquired absence of other genital organ(s) (ICD-10) History of colon resection ?Z90.49 - Acquired absence of other specified parts of digestive tract (ICD-10) Social History Little interest or pleasure in doing things: not at all Feeling down, depressed, or hopeless: not at all Meds Home Medications and Allergies Home Medications ?Medication ?Instructions ?Recorded ?Confirmed ?Type atorvastatin 20 mg tablet 20 mg PO QDAY 12/22/22 12/16/24 History calcium carbonate 300 mg PO DAILY 12/22/22 12/16/24 History flecainide 100 mg tablet 100 mg PO Q12H 12/22/22 12/16/24 History hydrochlorothiazide 25 mg tablet 25 mg PO QDAY 12/22/22 12/16/24 History lisinopril 40 mg tablet 40 mg PO QDAY 12/22/22 12/16/24 History loratadine 10 mg tablet 10 mg PO DAILY 12/22/22 12/16/24 History metoprolol succinate 100 mg 100 mg PO QDAY 12/22/22 12/16/24 History tablet,extended release 24 hr multivitamin 1 tab PO DAILY 12/22/22 12/16/24 History olopatadine 0.1 % eye drops drp ophthalmic (eye) BID 12/22/22 History potassium chloride 20 mEq 20 meq PO BID 12/22/22 12/16/24 History tablet,extended release(part/cryst) (Klor-Con M) warfarin 5 mg tablet 5 mg PO QDAY 12/22/22 12/16/24 History gabapentin 300 mg capsule 900 mg PO BID 01/17/24 12/16/24 History baclofen 10 mg tablet 10 mg PO TID PRN pain 06/25/24 12/16/24 History hydrocodone 5 mg-acetaminophen 325 1 tab PO BID PRN pain #14 tabs 12/04/24 12/16/24 Rx mg tablet Allergies Allergy/AdvReac Type Severity Reaction Status Date / Time No Known Drug Allergies Allergy Verified 12/16/24 08:04 Exam Constitutional Documenting provider has reviewed patient's vital signs: yes Common normals: no apparent distress, oriented x3, healthy appearing, alert and well nourished General appearance: cooperative HENMT Common normals: normocephalic, hearing grossly normal bilaterally and moist oral mucous membranes Head and scalp: normocephalic Eye Common normals: PERRL Pupil: PERRL Neck & C-Spine Common normals: full ROM General: normal visual inspection Chest Common normals: inspection of chest normal Respiratory Common normals: normal respiratory effort, no retractions and no use of accessory muscles Back & Pelvis Lumbar spine/lower back: lumbar ROM normal and straight leg raise negative bilaterally; ROM not limited, no pain with ROM and no lumbar spinal tenderness Sacroiliac joints: SI joints normal Extremity Other: bilateral hips minimal pain with internal/external rotation mild tenderness over right GTB Neuro Common normals: oriented x3 Sensorium/orientation: alert Psych Common normals: mental status grossly normal, thought process normal, cooperative, affect normal, speech normal and activity/motor behavior normal Speech: normal speech Thought process: normal thought process Results Additional Findings Additional findings: If on a controlled substance or opioids, I have checked an [place]AR[place] report on this patient and there are no aberrancies noted in the prescribing history.??If on a controlled substance or opioid a drug screen was completed and reviewed within the last year, and if there has not been a drug screen completed we ordered one today to monitor higher risk, state monitored pain medication use. As part of providing excellent, safe, comprehensive care, the following was completed at our patient's visit: 1. A medication reconciliation and review to ensure accurate knowledge of current/active medications, including asking our patients to inform us about any [id number] medications or herbal remedies/nutritional supplements/alternative remedies. 2. A review to specifically ensure our patients have had annual screening for screening for depression, screening for tobacco use, and screening for unhealthy alcohol use. For concerning screenings had a discussion with the patient, provided patient education, and recommended follow-up with primary care provider when appropriate. If patient noted with a risk of falling, they received education on strength, gait, and balance training to prevent future risk of falling. Portions of this note may have been carried over from the previous visit and updated as appropriate. Please note this office utilizes paper charting in addition to the electronic medical record. A list of current medications, vitals, and PMH is available there as the clinical staff outside of myself do not have access to Dr [facility] [employer] charting during the clinic day operations. As part of providing quality comprehensive care the current medications, vitals, and PMH were reviewed in the paper chart. Assessment and Plan Assessment and Plan (1) Left hip pain: (2) Osteoarthritis of right knee: Plan as discussed with pt recommend orthopedic consult for persist right hip pain if hes not pleased with response to injection, but he is noting >50% improvement from right hip injection update left hip xray to assess pain continue current medications pt reports his PCP is already referring him to orthopedics for evaluation previously ordered a back brace which pt elected not to get from [facility], advised to discuss with PCP or orthopedics for further recommendation f/u 3 months, sooner if needed
== END 2025-02-13 08:46 | disposition home or self-care (01) ==
LOC: PM 08:45
PROVIDERS: PCP Family Medicine; Visit Provider Nurse Practitioner
DX: M25.552 Pain in left hip (principal); M17.11 Unilateral primary osteoarthritis, right knee
CPT/HCPCS: G0463

== ENCOUNTER 2025-02-14 11:55 | Outpatient (OUT) | payer MEDICARE, SELFPAY ==
--- NOTE | 2025-02-14 | XR_ITS ---
[place] [address] Patient Name: ROSEY CHURCH MRN: [id number] date: 1955 Sex: M Assigned Patient Location: RAD Current Patient Location: [facility] Accession/Order Number: [id number] Exam Date: 02/14/2025 14:04 Report Date: 02/14/2025 14:04 At the request of: DONTE BENITEZ NP Procedure: XR hip LT min 2V LEFT HIP - 2 views: CLINICAL HISTORY: M25.552 Hip pain COMPARISON: None FINDINGS: Moderate degenerative changes involving the left hip without acute bony process. XR/XR hip LT min 2V IMPRESSION: MODERATE DEGENERATIVE CHANGES OF THE LEFT HIP WITHOUT ACUTE BONY PROCESS.. Impression dictated by: Jon Cowart Jr., D.O. 02/14/2025 2:04 PM Dictation Location: [place] [address] Electronically authenticated by: [id number] Y Date: 02/14/2025 14:04
== END 2025-02-14 11:56 | disposition home or self-care (01) ==
LOC: RAD 11:56
PROVIDERS: PCP Family Medicine; Visit Provider Nurse Practitioner
DX: M25.552 Pain in left hip (principal); M16.12 Unilateral primary osteoarthritis, left hip
CPT/HCPCS: 73502

== ENCOUNTER 2025-03-05 07:51 | Outpatient (RCR) | payer MEDICARE, SELFPAY | END 2025-04-17 10:35 | disposition home or self-care (01) | LOC: PT 07:51 | PROVIDERS: PCP Family Medicine; Visit Provider Orthopaedic Surgery Orthopaedic Trauma | DX: M54.50 Low back pain, unspecified (principal); M16.9 Osteoarthritis of hip, unspecified | CPT/HCPCS: 97012; 97110; 97112; 97140; 97162 ==

== ENCOUNTER 2025-03-10 01:59 | Outpatient (RCR) | payer MEDICARE, SELFPAY | END 2025-04-08 15:37 | disposition home or self-care (01) | LOC: MM 01:59 | PROVIDERS: PCP Family Medicine; Visit Provider Internal Medicine | DX: Z51.81 Encounter for therapeutic drug level monitoring (principal); Z79.01 Long term (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 | CPT/HCPCS: 85610; G0463 ==

== ENCOUNTER 2025-03-20 09:19 | Outpatient (OUT) | payer MEDICARE, SELFPAY ==
--- OUTSIDE RECORDS SUMMARY | 2025-03-20 09:22 | XMS_ITS | Encounter Summary ---
Author Organization [facility] Address [address] [place] [address] Care Team Providers Care Global Chief Creative Officer Name Role Phone Emperatriz Carnes DO Unavailable Carlos Nuñez MD Unavailable [phone] Encounter Details Date Type Department Care Team (Late st Contact Info) Description 07/09/2020 Abstract PATIENT ACUITY SCORE Social History Tobacco Use Types Packs/Day Years Used Date Smoking Tobacco: Never Smokeless Tobacco: Never Alcohol Use Standard Drinks/Week Comments Not Currently 0 (1 standard drink = 0.6 oz pur e alcohol) Substance Use Types Use/Week Comments Never Sex and Gender Information Value Date Recorded Sex Assigned at Not on file Legal Sex Male 12:10 PM EST Gender Identity Not on file Sexual Orientation Not on file documented as of this encounter Plan of Treatment Not on file documented as of this encounter Visit Diagnoses Not on filedocumented in this encounter Care Teams Global Chief Creative Officer Relationship Specialty Start Date End Date Emperatriz Carnes DO [address] [facility] [place] [address] Physician Electrophysiology 04/14/20 Carlos Nuñez MD [address] [facility] [place] [address] Physician Cardiac Electrophysiology 05/11/24 documented as of this encounter
--- OUTSIDE RECORDS SUMMARY | 2025-03-20 09:22 | XMS_ITS | Clinical Summary ---
Author Organization [facility] Address [address] [place] [address] Care Team Providers Care Regulatory Affairs Director Name Role Phone Rocio Bagley MD Primary Care Provider [phone] Allergies No known active allergies Medications amLODIPine (NORVASC) 5 mg tablet Take 5 mg by mouth once daily. Active aspirin, enteric coated (ASPIRIN, ENTERIC COATED) 81 mg EC tablet Take 81 mg by mouth once daily. Active carvedilol (COREG) 25 mg tablet Take 25 mg by mouth twice daily with meals. Active [place]-3 Fatty Acids-Vitamin E (FISH OIL) 1,000 mg [...] 1-dose 75+ series) [address] [place] [address] BLUE CARD PPO OOS Care Teams Regulatory Affairs Director Relationship Specialty [place] [address] [place] [phone] PCP - General Family Medicine 10/24/14
--- OUTSIDE RECORDS SUMMARY | 2025-03-20 09:22 | XMS_ITS | Clinical Summary ---
Author Organization [facility] Address [address] [facility] [place] [address] Care Team Providers Care Focusing Machine Operator Name Role Phone Emperatriz Carnes DO Unavailable Carlos Nuñez MD Unavailable [phone] Source Comments The following information is NOT included in Care Everywhere downloads:Psychiatric notes, ECG results, Cardiac Rehab notes, Pulmonary Function notes, data from [employer] (includes but not limited toPregnancy data,audiograms, eye exams, pre-surgical evaluation notes, well-child exam data).[facility] Allergies Active Allergy Reactions Criticality Noted Date Comments Other (Review Comments!) 12/28/2018 Medications atorvastatin (LIPITOR) 20 MG tabletIndications: Preop cardiovascular exam,PAF (paroxysmal atrial fibrillation) (HCC),Anticoagulat ed,JAVED on CPAP,Obesity, unspecified classification, unspecified obesity type, unspecified whether serious comorbidity present 11/20/19 Active hydrochlorothiazid e (HYDRODIURIL) 25 MG tabletIndications: Preop cardiovascular exam,PAF (paroxysmal atrial fibrillation) (HCC),Anticoagulat ed,JAVED on CPAP,Obesity, unspecified classification, unspecified obesity type, unspecified whether serious comorbidity present 11/20/19 Active lisinopril (PRINIVIL, ZESTRIL) 40 MG tabletIndications: Preop cardiovascular exam,PAF (paroxysmal atrial fibrillation) (HCC),Anticoagulat ed,JAVED on CPAP,Obesity, unspecified classification, unspecified obesity type, unspecified whether serious comorbidity present 11/20/19 Active loratadine (CLARITIN) 10 MG tabletIndications: Preop cardiovascular exam,PAF (paroxysmal atrial fibrillation) (HCC),Anticoagulat ed,JAVED on CPAP,Obesity, unspecified classification, unspecified obesity type, unspecified whether serious comorbidity present Take 10 mg by mouth daily. 3 10/28/19 19 Active olopatadine (PATANOL) 0.1 % ophthalmic solutionIndication s:Preop cardiovascular exam,PAF (paroxysmal atrial fibrillation) (HCC),Anticoagulat ed,JAVED on CPAP,Obesity, unspecified classification, unspecified obesity type, unspecified whether serious comorbidity present olopatadine 0.1 % eye drops Active Potassium Chloride 40 MEQ/15ML (20%) SOLNIndications:Pr eop cardiovascular exam,PAF (paroxysmal atrial fibrillation) (HCC),Anticoagulat ed,JAVED on CPAP,Obesity, unspecified classification, unspecified obesity type, unspecified whether serious comorbidity present 15 mL. Active AMLODIPINE BESYLATE ORAL amLODIPine Besylate Not-Taking Active sildenafil citrate (VIAGRA) 25 MG tablet Take 25 mg by mouth. 01/25/20 23 Active Sodium Sulfate-Mag Sulfate-KCl (Sutab) 3849-732-483 MG TABS Take by mouth. 07/29/19 23 Active warfarin (COUMADIN) 5 MG tabletIndications: PAF (paroxysmal atrial fibrillation) (HCC),Anticoagulat ed,Preop cardiovascular exam,JAVED on CPAP,Obesity, unspecified classification, unspecified obesity type, unspecified whether serious comorbidity present TAKE ONE TO ONE AND ONE-HALF TABLETS DAILY OR DIRECTED BY MEDICATION MANAGEMENT CLINIC 120 Tablet 3 12/28/19 24 Active potassium chloride SA (Klor-Con M20) 20 MEQ controlled release tabletIndications: PAF (paroxysmal atrial fibrillation) (HCC),Anticoagulat ed,Preop cardiovascular exam,JAVED on CPAP,Obesity, unspecified class, unspecified obesity type, unspecified whether serious comorbidity present Take 1 Tablet by mouth 2 times daily. 180 Tablet 3 09/28/19 25 026 Active metoprolol (TOPROL-XL) 100 mg XL tablet Take 1 Tablet by mouth daily. 90 Tablet 3 09/28/19 25 Active flecainide (TAMBOCOR) 100 MG tabletIndications: Persistent atrial fibrillation (HCC) Take 1 Tablet by mouth 2 times daily. 180 Tablet 3 09/28/19 25 Active Active Problems Problem Noted Date Diagnosed Date Erectile dysfunction 03/29/2023 03/29/2023 Apnea, sleep 03/29/2023 03/29/2023 Asymptomatic microscopic hematuria 03/29/2023 03/29/2023 Family history of colon cancer 03/29/2023 0 03/29/2023 History of colorectal cancer 03/29/2023 Anticoagulated 09/03/2020 Elevated PSA 05/27/2020 Arthritis 05/27/2020 Hypertensive disorder 12/28/2018 Atrial fibrillation 12/28/2018 Malignant tumor of colon 11/07/2014 Resolved Problems Problem Noted Date Diagnosed Date Resolved Date PAF (paroxysmal atrial fibrillation) 09/03/2020 03/29/2023 Urinary urgency 05/27/2020 03/29/2023 Nocturia 05/27/2020 03/29/2023 Increased frequency of urination 05/27/2020 03/29/2023 Incomplete emptying of bladder 05/27/2020 03/29/2023 Gross hematuria 05/27/2020 03/29/2023 BPH with urinary obstruction 05/27/2020 03/29/2023 Immunizations Immunization Administration Dates Next Due Influenza, Injectable, MDCK, Quadrivalent, Preservative Free (KAE=552) 04/26/2018 Influenza, injectable, adjuv anted, quadrivalent, preservative free (GXD=405) 05/10/2023,05/24/2022,05/21/2021,05/05 Influenza, injectable, high dose seasonal, trivalent, preservative free (SQO=913) 04/29/2019 Influenza, unspecified formu lation (CVX=88) 04/28/2021 Oration SARS-COV-2 (COVID-19 ) vaccine, vector non-replicating, recombinant spike protein-Ad26, preservative free, 0.5 mL (HHI=999) 05/26/2021 Pfizer Monovalent (12+ yrs) SARS-COV-2 (COVID-19) vaccine, mRNA, spike protein, LNP, pres. free, 30 mcg/0.3mL dose (TJD=098) 06/09/2021,09/26/2020,09/05/2020 Pfizer Monovalent (12+ yrs) SARS-COV-2 (COVID-19) vaccine, mRNA, spike protein, LNP, pres. free, 30 mcg/0.3mL dose, art-sucrose (NJK=036) 12/16/2021 Pneumococcal conjugate 13 va lent (PCV13) (PWN=410) 08/18/2021 Pneumococcal conjugate 20 va lent (PCV20), polysaccharide ONI323 conjugate, adjuvant, PF (QSQ=883) 05/24/2023 Social History Tobacco Use Types Packs/Day Years Used Date Smoking Tobacco: Never Smokeless Tobacco: Never Alcohol Use Standard Drinks/Week Comments Not Currently 0 (1 standard drink = 0.6 oz pur e alcohol) Humiliation, Afraid, Rape, and Kick questionnair e Answer Date Recorded Within the last year, have y ou been afraid of your partner or ex-partner? No 03/27/2023 Within the last year, have y ou been humiliated or emotionally abused in other ways by your partner or ex-partner? No Within the last year, have y ou been kicked, hit, slapped, or otherwise physically hurt by your partner or ex-partner? No 03/27/2023 Within the last year, have y ou been raped or forced to have any kind of sexual activity by your partner or ex-partner? No 03/27/2023 Social Connection and Isolat ion Panel [NHANES] Answer Date Recorded In a typical week, how many times do you talk on the phone with family, friends, or neighbors? More than three times a week 03/27/2023 How often do you get togethe r with friends or relatives? Twice a week 03/27/2023 How often do you attend chur or sikh services? Never 03/27/2023 Do you belong to any clubs o r organizations such as cheondoism groups, unions, fraternal or athletic groups, or school groups? Yes 03/27/2023 How often do you attend meet ings of the clubs or organizations you belong to? More than 4 times per year 03/27/2023 Are you , , di vorced, , never , or living with a partner? 03/27/2023 Overall Financial Resource Strain (CARDIA) Answe r Date Recorded How hard is it for you to pa y for the very basics like food, housing, medical care, and heating? Not hard at all 03/27/2023 [facility] [place] [facility] Occupat ional [facility] - Occupational Stress Questionnaire Answer Date Recorded Do you feel stress - tense, restless, nervous, or anxious, or unable to sleep at night because your mind is troubled all the time - these days? Not at all 03/27/2023 Exercise Vital Sign Answer Date Recorde d On average, how many days pe r week do you engage in moderate to strenuous exercise (like a brisk walk)? Patient declined On average, how many minutes do you engage in exercise at this level? Patient declined 03/27/2023 Hunger Vital Sign Answer Date Recorded Within the past 12 months, y ou worried that your food would run out before you got the money to buy more. Never true 03/27/20 23 Within the past 12 months, t he food you bought just didn't last and you didn't have money to get more. Never true 03/27/2023 PRAPARE - Transportation Answer Date Re corded In the past 12 months, has l ack of transportation kept you from medical appointments or from getting medications? No 03/10 In the past 12 months, has l ack of transportation kept you from meetings, work, or from getting things needed for daily living? No 03/27/2023 Housing Stability Vital Sign Answer Yadiel e Recorded In the last 12 months, was t here a time when you were not able to pay the mortgage or rent on time? No 03/27/2023 In the last 12 months, how many places have you lived? 1 03/27/2023 In the last 12 months, was t here a time when you did not have a steady place to sleep or slept in a detention (including now)? No 03/27/2023 Education Answer Date Recorded What is the highest level of school you have completed or the highest degree you have received? Bachelor's degree (e.g., BA, AB, BS) 03/27/2023 Substance Use Types Use/Week Comments Never Sex and Gender Information Value Date Recorded Sex Assigned at Not on file Legal Sex Male 12:10 PM EST Gender Identity Not on file Sexual Orientation Not on file Last Filed Vital Signs Vital Sign Reading Time Taken Comments Blood Pressure 132/72 12/28/2018 2:42 PM EDT Pulse 76 12/28/2018 2:42 PM EDT Temperature - - Respiratory Rate - - Oxygen Saturation 99% 12/28/2018 2:42 PM EDT room air Inhaled Oxygen Concentration - - Weight 145.6 kg (321 lb) 12/28/2018 2:42 PM EDT Height 188 cm (6' 2 ) 12/28/2018 2:42 PM EDT Body Mass Index 41.21 12/28/2018 2:42 PM EDT Plan of Treatment Health Maintenance Due Date Last Done Comments Colonoscopy 1955 Hepatitis C Antibody 09/09/1971 Tdap Booster 09/09/1971 Hepatitis A (HAV) Vaccine (optional start 19+ years) 1972 CRC Screening 1998 Cologuard (Stool DNA) 1998 FIT 1998 Shingles (RZV) Vaccine (1 of 2) 09/09/2003 Hepatitis B (HBV) Vaccine (optional start 60+ years) 2013 RSV vaccine (adult) (1 - Ris k 60-74 years 1-dose series) 2013 Annual Wellness Visit (G0438) 2019 Basic Metabolic Panel 12/29/2019 12/28/2018 COVID-19 Vaccine (2024-2 6 season) 2025 12/16/2021, 06/09/2021, 05/26/2021, Additional history exists Influenza Vaccine (#1) 2025 3, 05/24/2022, 05/21/2021, Additional history exists Cholesterol 09/09/2027 2022 Pneumococcal Vaccine(s) (50+ yrs) Completed 023, 08/18/2021 Procedures Procedure Name Priority Date/Time Associated Diagnosis Comments BASIC METABOLIC PANEL Routine 12/28/2018 3:41 PM EDT Preop cardiovascular exam PAF (paroxysmal atrial fibrillation) (HCC) Anticoagulated JAVED on CPAP Obesity, unspecified classification, unspecified obesity type, unspecified whether serious comorbidity present from Last 3 Months or Most Recently Relevant to Health Maintenance Results * (ABNORMAL) BASIC METABOLIC PANEL (12/28/2018 3:41 PM EDT) Glucose 70(L) 80 - 116 mg/dL 12/28/2018 6:07 PM EDT [facility] Sodium 143 135 - 148 mmol/L 12/28/2018 6:07 PM EDT [facility] Potassium 3.9 3.3 - 5.3 mmol/L 12/28/2018 6:07 PM EDT [facility] Carbon Dioxide 27 21 - 30 mmol/L 12/28/2018 6:07 PM EDT [facility] Chloride 109 97 - 111 mmol/L 12/28/2018 6:07 PM EDT [facility] Blood Urea Nitrogen 13 8 - 22 mg/dL 12/28/2018 6:07 PM EDT [facility] Creatinine 0.72(L) 0.80 - 1.30 mg/dL 12/28/2018 6:07 PM EDT [facility] Calcium 9.6 8.4 - 10.4 mg/dL 12/28/2018 6:07 PM EDT [facility] Anion Gap 11 5 - 13 12/28/2018 6:07 PM EDT [facility] Estimated GFR (CKD-EPI) 98 >=60 mL/min/1.7 3sqm 12/28/2018 6:07 PM EDT [facility] Blood BLOOD SPECIMEN / Unknown 12/28/2018 3:41 PM EDT 12/28/2018 5:14 PM EDT Emperatriz Carnes DO 98 GENERAL LAB Final Result [facility] [address] [place] [id number] from Last 3 Months or Most Recently Relevant to Health Maintenance Insurance MEDICARE [employer] Care Teams Focusing Machine Operator Relationship Specialty Start Date End Date Emperatriz Carnes DO [address] [facility] [place] [address] Physician Electrophysiology 04/14/20 Carlos Nuñez MD [address] [facility] [place] [address] Physician Cardiac Electrophysiology 05/11/24
--- OUTSIDE RECORDS SUMMARY | 2025-03-20 09:22 | XMS_ITS | Clinical Summary ---
Author Organization [facility] Address [address] [place] [address], [address] [place] [address] Care Team Providers Care Home Attendant Name Role Phone Unavailable Primary Care Provider [...]
--- OUTSIDE RECORDS SUMMARY | 2025-03-20 09:22 | XMS_ITS | Clinical Summary ---
Author Organization [facility] Healthcare Address [address] [place] [address] Care Team Providers Care Greenhouse Or Nursery Transplanter Name Role Phone Unavailable Primary Care Provider [...]
--- OUTSIDE RECORDS SUMMARY | 2025-03-20 09:22 | XMS_ITS | Clinical Summary ---
Author Organization [facility] Address [address] [place] [address] Phone Care Team Providers Care Engine Tester Name Role Phone Rocio Bagley MD Primary Care Provider [phone] Social History Tobacco Use Types Packs/Day Years Used Date Smoking Tobacco: Never Assessed Sex and Gender Information Value Date Recorded Sex Assigned at Not on file Legal Sex Male 12:38 PM EST Gender Identity Not on file Sexual Orientation Not on file Plan of Treatment Not on file Care Teams Engine Tester Relationship Specialty Start Date End Date Rocio Bagley MD [address] [place] [address] [address] [place] [address] PCP - General 03/28/18
--- OUTSIDE RECORDS SUMMARY | 2025-03-20 09:22 | XMS_ITS | Encounter Summary ---
Author Organization [facility] Address [address] [facility] [place] [address] Care Team Providers Care Pipe Fitter Name Role Phone Emperatriz Carnes DO Unavailable Carlos Nuñez MD Unavailable [phone] Encounter Details Date Type Department Care Team (Late st Contact Info) Description 05/17/2021 Abstract PATIENT ACUITY SCORE Social History Tobacco [...] on filedocumented in this encounter Care Teams Pipe Fitter Relationship Specialty Start Date End Date Emperatriz Cranes DO [address] [facility] [address] [place] [address] Physician Electrophysiology 04/14/20 Carlos Nuñez MD [address] [facility] [address] [place] [address] Physician Cardiac Electrophysiology 05/11/24 documented as of this encounter
--- OUTSIDE RECORDS SUMMARY | 2025-03-20 09:22 | XMS_ITS | Encounter Summary ---
Author Organization [facility] Address [address] [facility] [place] [address] Care Team Providers Care Terrazzo Tile Setter Name Role Phone Emperatriz Carnes DO Unavailable Carlos Nuñez MD Unavailable [phone] Encounter Details Date Type Department Care Team (Late st Contact Info) Description 07/09/2021 Abstract PATIENT ACUITY SCORE Social History Tobacco [...] on filedocumented in this encounter Care Teams Terrazzo Tile Setter Relationship Specialty Start Date End Date Emperatriz Carnes DO [address] [place] [address] Physician Electrophysiology 04/14/20 Carlos Nuñez MD [address] [place] [address] Physician Cardiac Electrophysiology 05/11/24 documented as of this encounter
--- OUTSIDE RECORDS SUMMARY | 2025-03-20 09:28 | XMS_ITS | CCD ---
Author Organization [facility] Care Team Providers Care Truck Packer Name Role Phone PHYSICIAN, DEFAULT Unavailable Unavailable PHYSICIAN, DEFAULT Unavailable Unavailable DONALD LIZARRAGA Unavailable Unavailable PHYSICIAN, DEFAULT Unavailable Unavailable PHYSICIAN, DEFAULT Unavailable Unavailable DONALD LIZARRAGA Unavailable Unavailable Devin Greer Unavailable Unavailable Donald Lizarraga Unavailable Unavaila ble DONALD LIZARRAGA Primary Care Physician [phone] Deyvi DO, Emperatriz Unavailable Karim DO, Emperatriz Unavailable Donald Lizarraga Unavailable ALLEN Montano, DR JADEN Rodriguez Consulting Unavailable VILLA ., DR JADEN Rodriguez Admitting Unavailable VILLA ., DR JADEN Rodriguez Attending Unavailable ELHAM, DR DONALD Ruano Primary Care Unavailable CUEVAS .MRAIELA Consulting Unavailable FAWWAD, WOMACK H Admitting Unavailable FAWWAD, WOMACK H Attending Unavailable ELHAM, DR DONALD Ruano Primary Care Unavailable ELHAM, DR DONALD Ruano Primary Care Unavailable FAWWAD, WOMACK H Attending Unavailable FAWWAD, WOMACK H Admitting Unavailable ELHAM, DR DONALD Ruano Primary Care Unavailable CUEVAS .MARIELA Consulting Unavailable ALLEN ., DR JADEN Rodriguez Admitting Unavailable VILLA ., DR JADEN Rodriguez Attending Unavailable LAKSHMIPATHY ., NARALYSONATH Admitting Rochelle vailable DR DONALD LIZARRAGA Primary Care Unavailable JEET KLEIN Consulting Unavailable LAKSHMIPATHY ., NARENDCRISATH Attending Rochelle vailable ELHAM, DR DONALD Ruano [...] VILLA ., DR JADEN Rodriguez Attending Unavailable CUEVAS ., MARIELA Consulting Unavailable LIZARRAGA, DR DONALD Ruano Admitting Unavailable LIZARRAGA, DR DONALD Ruano Attending Unavailable LIZARRAGA, DR DONALD Ruano Consulting Unavailable LIZARRAGA, DR DONALD Ruano Primary Care Unavailable HALKER ., JEET Admitting Unavailable HALKER ., JEET Attending Unavailable OCILLA, DR UNA Sofia Consulting Unavailable LIZARRAGA, DR [...] ., NARENDRANATH Attending Rochelle vailable CUEVAS ., MARIELA Consulting Unavailable DR DONALD LIZARRAGA Primary Care Unavailable DR DONALD LIZARRAGA Primary Care Unavailable SHAIKH Gurwinder FARMER Attending Unavailable SHAIKH Gurwinder FARMER Admitting Unavailable Karim DO, Emperatriz Unavailable Karim DO, Emperatriz Unavailable CATHIE HERNANDEZ Attending Unavailable PRASANTH PEREZ Attending Unavailable PROVIDER, UNKNOWN Admitting Unavailable Donald Lizarraga MD Primary Care Provider Mariela Mosley APRN Attending Provider Donald Lizarraga Primary Care Unavailable Mariela Mosley Attending UnavailMariela Castillo Admitting UnavailPrasanth Singletary MD Unavailable Jesus Alberto JACKSON, Andrius Viera Attending Unavailable Jesus Alberto JACKSON, Andrius Vytpérez Attending Unavailable Jesus Alberto JACKSON, Andrius Vsonali Attending Unavailable Jesus Alberto JACKSON, Andrius Vytautfeliz Attending Unavailable Donald Lizarraga MD Primary Care Provider Merlyn Casillas CMA Attending Provider Unavaila fareed Granda MD, Blessing Attending Provider Donald Lizarraga MD Attending Provider Donald Lizarraga MD Primary Care Provider Peter Auguste DO Attending Provider [phone] Allergies Allergy Classification Reported Allergen(s) Allergy Type Date of Onset Reaction(s) Facility (17 sources) Other (Review Comments!); 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: [OTHER (REVIEW COMMENTS!)] Propensity to adverse reactions to drug 12-29-19 19 [facility] (13 sources) Decongestant Drug allergy 10-18-19 24 Unknown, [facility] (10 sources) DECONGESTANTS Propensity to adverse reactions 05-03-20 13 Unknown, [facility] Comment on above: Onset Date: 05/03/20 13 (3 sources) Allergies Reconciled Propensity to adverse reactions Unknown Tasspass Other (3 sources) patient allergy list reviewed by nurse or physicia Propensity to adverse reactions 11-23-19 Comment:Done Tasspass Other (1 source) No Known Medication Allergies; 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: [No Known Medication Allergies] Propensity to adverse reactions (disorder) [facility] Repository Medications Current Medications Medication Drug Class(es) Dates Sig (Normalized) Sig (Original) atorvastatin 20 mg oral tablet (20 sources) HMG-CoA Reductase Inhibitor Start: 05-06-2024 Atorvastatin 20 mg tablet Active 0 .ROUTE .COMPLEX May 06, 2024 8:50pm TAKE 1 TABLET AT BEDTIME Complies with drug therapy Start: 05-06-2024 Atorvastatin A ctive 0 .ROUTE .COMPLEX May 06, 2024 8:50pm TAKE 1 TABLET AT BEDTIME Start: 12-20-2017 End: 05-06-2024 take 1 tablet by mouth once daily at bedtime Atorvastatin 20 mg tablet Discontinued 20 MG PO Daily at bedtime October 18, 2023 12:00am May 06, 2024 8:50pm FreeTextSig: TAKE 1 TABLET AT BEDTIME; Note: Source Status: Taking; Refills: 3; Qty: 90 Tablet; Provider: Elham Chan ( ) azithromycin 250 mg oral tablet (2 sources) Macrolide Antimicrobial Start: 10-11-2022 Azithr omycin 250 MG as directed Orally 2 tabs po today, then 1 tab daily x 4 more days for 5 Oct, Active betamethasone 0.5 mg/ml / clotrimazole 10 mg/ml topical cream (16 sources) Azole Antifungal, Corticosteroid Start: 10-18-2023 End: 04-04-2024 Clotrimazole-Betamet hasone 1-0.05 % cream Active 1 APPLIC TOPICAL Twice daily as needed for rash April 04, 2024 12:18pm Complies with drug therapy Start: 03-28-2023 Clotrimazole-B etamethasone 1-0.05 % 1 application Externally Twice a day, as needed for 30 days Mar, Active calcium carbonate 1250 mg oral tablet (20 sources) Start: 10-18-2023 End: 10-19-2023 take 1 tablet by mouth once daily Calcium Carbonate 500 mg calcium (1,250 mg) tablet Active 500 MG PO Daily October 19, 2023 12:00am Complies with drug therapy Start: 04-02-2020 take 500 mg by mouth twice daily Os-Avery 500 500 mg, Oral, BID, Refills(s) 0, Prophylaxis Start Date: 04/02/20 Status: Ordered take 1 tablet by ruma th once daily oscal 500 + D 500 mg / 125 IU 1 tablet orally once a day Active cetirizine hydrochloride 10 mg oral tablet (2 sources) Histamine-1 Receptor Antagonist Start: 02-12-2025 take 1 tablet by mouth once daily as needed Cetirizine (Zyrtec) 10 mg tablet Active 10 MG PO Daily as needed February 12, 2025 12:00am Complies with drug therapy flecainide acetate 100 mg oral tablet (20 [...] 100 mg tablet Active MG PO October 18, 2023 12:00am FreeTextSi.5 tablet Orally every 12 hrs; Note: Source Status: Taking; Provider: Elham Chan ( ) Complies with drug therapy Start: 09-03-2020 End: 05-15-2023 take 1 tablet [...] hrs Active gabapentin 300 mg oral capsule (18 sources) Anti-epileptic Agent Start: 10-18-2023 Gabapenti n 300 mg capsule Active MG PO October 18, 2023 12:00am FreeTextSi qam and 1 qpm and 2 qhs Orally 4 times a day; Note: Source Status: Taking; Provider: Elham Chan ( ) Complies with drug therapy Start: 10-18-2023 Gabapentin Act elvira MG PO [...] tablet (20 sources) Thiazide Diuretic Start: 02-19-2024 End: 02-27-2025 Hydrochlorothiazide 25 mg tablet Active 0 .ROUTE .COMPLEX 90 February 27, 2025 1:51pm TAKE 1 TABLET DAILY Complies with drug therapy Start: 11-19-2018 End: 02-19-2024 take 1 tablet by mouth once daily Hydrochlorothiazide 25 mg tablet Discontinued 25 MG PO Daily October 18, 2023 12:00am February 19, 2024 11:43am FreeTextSig: TAKE 1 TABLET DAILY; Note: Source Status: Taking; Refills: 3; Qty: 90 Tablet; Provider: Elham Chan ( ) Immodium A-D 2 mg Cap (2 sources) Start: 12-20-2017 take 1 tablet by mouth every four hours as needed Immodium A-D 2 mg Cap = 1 tab(s), Oral, q4hr, PRN for loose stools, Refills(s) 0 Start Date: 12/20/17 Status: Ordered lisinopril 40 mg oral tablet (20 sources) Angiotensin Converting Enzyme Inhibitor Start: 09-07-2023 End: 06-12-2024 Lisinopril 40 mg tablet Active 0 .ROUTE .COMPLEX June 12, 2024 12:05pm TAKE 1 TABLET DAILY Complies with drug therapy Start: 09-07-2023 Lisinopril 40 mg tablet Active 0 .ROUTE .COMPLEX September 07, 2023 3:57pm TAKE 1 TABLET DAILY Start: 09-07-2023 Lisinopril Act elvira 0 .ROUTE .COMPLEX September 07, 2023 4:57pm TAKE 1 TABLET DAILY Start: 12-20-2017 End: 09-07-2023 take 1 tablet by mouth once daily Lisinopril 40 mg tablet Discontinued 40 MG PO Daily September 07, 2023 1:00am September 07, 2023 4:57pm loperamide hydrochloride 2 mg oral capsule (1 source) Opioid Agonist Start: 12-20-2017 take 1 tablet by mouth every four hours as needed Immodium A-D 2 mg Cap = 1 tab(s), Oral, q4hr, PRN for loose stools, Refills(s) 0 Start Date: 12/20/17 Status: Ordered magnesium sulfate 225 MG / potassium chloride 188 MG / sodium sulfate 1479 MG Oral Tablet [Sutab] (1 source) Start: 07-29-2022 take 1 tablet by mouth once Sutab oral tablet See Instructions, 1 EA, Refill(s) 0, KP, Please follow instructions per packaging and physician's handout, [facility]/pharmacy #[id number], 183.8, cm, 07/29/22 14:15:00 EST, Height/Length Dosing, [...] hr Active 1 TAB PO Daily October 18, 2023 12:00am FreeTextSi tablet Orally Once a day; Note: Source Status: Taking; Provider: Elham Chan ( ) Complies with drug therapy Start: 12-20-2017 take 1 tablet by ruma th once daily metoprolol tartrate 100 mg Tab 100 mg = 1 tab(s), Oral, Daily, Refills(s) 0, High blood pressure Start Date: 12/20/17 Status: Ordered Multivitamin (Multiple Vitamins) tablet (7 sources) Start: 10-18-2023 take 1 tablet by mouth once daily Multivitamin (Multiple Vitamins) tablet Active 1 TAB PO Daily October 18, 2023 12:00am Complies with drug therapy Start: 10-18-2023 take 1 tablet by ruma [...] 0, Prophylaxis Start Date: 12/20/17 Status: Ordered Olopatadine 0.1 % drops (9 sources) Start: [...] release oral tablet (20 sources) Start: 10-19-2023 End: 09-27-2025 Potassium Chloride (Klor-Con M20) 20 mEq tablet,ER particles/crystals Active 20 MEQ PO Twice daily October 19, 2023 12:00am Complies with drug therapy Start: 04-05-2023 End: 07-04-2023 Potassium Chloride (Klor-Con [...] Once a day Active Psyllium Seed (Sugar) (Metam ucil (Sugar)) powder (7 sources) Start: 10-18-2023 Psyllium Seed (Sugar) (Metamucil (Sugar)) powder Active 1 TBSP PO Daily October 18, 2023 12:00am Complies with drug therapy Start: 10-18-2023 Psyllium Seed (Sugar) (Metamucil (Sugar)) powder Active 1 TBSP PO Daily October 17, 2023 11:00pm Start: 10-18-2023 Psyllium Seed (Sugar) (Metamucil (Sugar)) powder Active 1 TBSP PO Daily October 18, 2023 12:00am sildenafil 25 mg oral tablet (8 sources) Phosphodiesterase 5 Inhibitor Start: 01-24-2023 sildenafil citrate (VIAGRA) 25 MG tablet Take 25 mg by mouth. 01/24/2023 Active Sodium Sulfate-Mag Sulfate-KCl (Sutab) 0252-810-552 MG TABS (6 sources) Start: 07-29-2022 Sodium Sulfate -Mag Sulfate-KCl (Sutab) 7108-540-411 MG TABS Take by mouth. 07/29/2022 Active Start: 07-29-2022 Sodium Sulfate -Mag Sulfate-KCl (Sutab) 8171-824-248 MG TABS Take by mouth. 0 07/29/2022 Active Super B Complex (6 sources) Start: 04-02-2020 take 1 tablet by mouth once daily Super B Complex 1 tab(s), Oral, Daily, Refill(s) 0, Prophylaxis Start Date: 04/02/20 Status: Ordered tiZANidine 4 mg oral tablet (9 sources) Central alpha-2 Adrenergic Agonist Start: 10-18-2023 take 1 tablet by mouth once daily at bedtime as needed Tizanidine 4 mg tablet Active 4 MG PO Once October 18, 2023 12:00am FreeTextSi tablet as needed Orally qhs prn; Note: Source Status: Taking; Provider: Elham Ruano Complies with drug therapy take 1 tablet by ruma th once [...] 07/29/22 Status: Ordered Start: 09-03-2020 End: 12-28-2023 Warfarin 5 mg tablet Active MG PO As Directed October 18, 2023 12:00am FreeTextSig: as directed orally; Note: Source Status: Taking; Provider: Elham Chan ( ) Complies with drug therapy Completed/Discontinued Medications Medication Drug Class(es) Dates Sig (Normalized) Sig (Original) acetaminophen 325 mg / HYDROcodone bitartrate 5 mg oral tablet (11 sources) Opioid Agonist End: 03-29-2023 hydrocodone-acetamin ophen (NORCO) 5-325 MG per tablet Indications: Preop cardiovascular exam , PAF (paroxysmal atrial fibrillation) (HCC) , Anticoagulated , JAVED on CPAP , Obesity, unspecified classification, unspecified obesity type, unspecified whether serious comorbidity present hydrocodone 5 mg-acetaminophen 325 mg tablet 0 03/29/2023 Discontinued acetaminophen 325 mg / oxyCODONE hydrochloride 5 mg oral tablet (11 sources) Opioid Agonist End: 03-29-2023 oxyCODONE-acetaminop hen (PERCOCET) 5-325 MG tablet Indications: Preop cardiovascular exam , PAF (paroxysmal atrial fibrillation) (HCC) , Anticoagulated , JAVED on CPAP , Obesity, unspecified classification, unspecified obesity type, unspecified whether serious comorbidity present oxycodone-acetaminop hen 5 mg-325 mg tablet 0 03/29/2023 Discontinued [id number] 200 actuat albuterol 0.09 mg/actuat metered dose inhaler (5 sources) beta2-Adrenergic Agonist Start: 05-29-2024 End: 02-12-2025 Albuterol Sulfate 90 mcg/actuation HFA aerosol inhaler Discontinued 1 INH INHALATION Every 6 hours May 29, 2024 1:00am February 12, 2025 9:29am Start: 05-08-2024 End: 05-26-2024 Albuterol Sulfate 90 mcg/act uation HFA aerosol inhaler Discontinued 2 INH INHALATION EVERY 4-6 HOURS as needed for shortness of breath or wheezing 6.7 May 08, 2024 12:00am May 26, 2024 10:20am Albuterol Sulfate 90 mcg/actuation HFA aerosol inhaler (3 sources) Start: 05-08-2024 End: 05-26-2024 Albuterol Sulfate 90 mcg/actuation HFA aerosol inhaler Discontinued 2 INH INHALATION EVERY 4-6 HOURS as needed for shortness of breath or wheezing 6.7 May 07, 2024 11:00pm May 26, 2024 9:20am amLODIPine 10 mg oral tablet (19 sources) Dihydropyridine Calcium Channel Yadiel Start: 10-18-2023 End: 10-19-2023 take 1 tablet by mouth once daily Amlodipine 10 mg tablet Discontinued 10 MG PO Daily October 18, [...] 500 mg capsule Discontinued MG PO October 18, 2023 12:00am October 19, 2023 10:33am Start: 10-18-2023 End: 10-19-2023 Ascorbic Acid (Vitamin [...] aspirin 81 mg delayed release oral tablet (7 sources) Platelet Aggregation Inhibitor, Nonsteroidal Anti-inflammatory Drug Start: 10-18-2023 End: 10-19-2023 take 1 tablet by mouth once daily Aspirin 81 mg tablet,delayed release (DR/EC) Discontinued 81 MG PO Daily October 18, 2023 12:00am October 19, 2023 10:33am baclofen 10 mg oral tablet (20 sources) gamma-Aminobutyric Acid-ergic Agonist Start: 11-13-2018 End: 04-15-2024 take 1 tablet by mouth at bedtime baclofen (LIORESAL) 10 MG tablet Indications: Preop cardiovascular exam , PAF (paroxysmal atrial fibrillation) ([facility]) , Anticoagulated , JAVED on CPAP , Obesity, unspecified classification, unspecified obesity type, unspecified whether serious comorbidity present Take 10 mg by mouth at bedtime. 4 11/13/2018 04/15/2024 Discontinued take 1 tablet by mouth every twe lve hours Baclofen 10 MG 1 tablet as needed Orally Twice a day Active benzonatate 200 mg oral capsule (10 sources) Non-narcotic Antitussive Start: 10-19-2023 End: 02-12-2025 Benzonatate 200 mg capsule Discontinued 200 MG PO 2-3 TIMES PER DAY as needed for cough May 29, 2024 1:00am February 12, 2025 9:29am carvedilol 3.125 mg oral tablet (13 sources) alpha-Adrenergic Yadiel, beta-Adrenergic Yadiel Start: 10-18-2023 End: 10-19-2023 take 1 tablet by mouth twice daily at mealtime Carvedilol 3.125 mg tablet Discontinued 3.125 MG PO Twice daily October 18, 2023 12:00am October 19, 2023 10:34am must administer with a meal/food Carvedilol Not-T aking/PRN Carvedilol Not-T aking cefdinir 300 mg oral capsule (10 sources) Cephalosporin Antibacterial Start: 10-19-2023 End: 02-12-2025 take 1 capsule by mouth twice daily Cefdinir 300 mg capsule Discontinued 300 MG PO Twice daily May 29, 2024 11:13am February 12, 2025 9:30am cholecalciferol 0.05 mg oral capsule (11 sources) Vitamin D End: 03-29-2023 take 1 capsule by mouth once daily Cholecalciferol 50 MCG (2000 UT) CAPS Vitamin D3 50 mcg (2,000 unit) capsule Take 1 capsule every day by oral route. 0 03/29/2023 Discontinued docosahexaenoic acid 120 mg / eicosapentaenoic acid 180 mg oral capsule (7 sources) Start: 10-18-2023 End: 10-19-2023 take 1 capsule by mouth once daily Docosahexaenoic Acid-Epa (Fish Oil) 120-180 mg capsule Discontinued 1 CAP PO Daily October 18, 2023 12:00am October 19, 2023 10:35am doxycycline hyclate 100 mg oral capsule (5 sources) Tetracycline-class Drug Start: 05-08-2024 End: 05-26-2024 take 1 capsule by mouth twice daily Doxycycline Hyclate 100 mg capsule Discontinued 100 MG PO Twice daily 14 May 08, 2024 12:00am May 26, 2024 10:21am Fish Oils (6 sources) Fish Oil Not-Taking/PRN Fish Oil Not-David ing loratadine 10 mg oral tablet (20 sources) Start: 12-20-2017 End: 02-12-2025 take 1 tablet by mouth once daily Loratadine 10 mg tablet Discontinued 10 MG PO Daily October 18, 2023 12:00am February 12, 2025 9:32am FreeTextSi tablet once a day; Note: Source Status: Taking; Provider: Elham Chan ( ) Loratadine Not-T aking Multi Vitamin Mens (6 sources) Multi Vitamin Me ns Not-Taking/PRN Multi Vitamin Me ns Not-Taking olopatadine 1 mg/ml ophthalmic solution (20 sources) Histamine-1 Receptor Inhibitor Start: 12-25-2023 [...] Elham Chan ( ) Start: 10-18-2023 End: 09-09-2024 take 1 drop(s) into the eye(s) twice [...] DAY FOR 30 DAYS for 30 Active ondansetron 4 mg disintegrating oral tablet (11 sources) Serotonin-3 Receptor Antagonist End: 03-29-2023 ondansetron (ZOFRAN-ODT) 4 MG disintegrating tablet Indications: Preop cardiovascular exam , PAF (paroxysmal atrial fibrillation) (HCC) , Anticoagulated , JAVED on CPAP , Obesity, unspecified classification, unspecified obesity type, unspecified whether serious comorbidity present ondansetron 4 mg disintegrating tablet 0 03/29/2023 Discontinued predniSONE 20 mg oral tablet (20 sources) Start: 05-26-2024 End: 02-12-2025 Prednisone 20 mg tablet Discontinued 0 PO Daily 11 May 26, 2024 1:00am February 12, 2025 9:31am Take 2 tabs x 3 days, take 1 tab x 3 days, take 1/2 tab x 3 days orally daily; Start: 05-08-2024 End: 05-26-2024 take 1 tablet by mouth once daily Prednisone 50 mg tablet Discontinued 50 MG PO Daily 5 May 08, 2024 12:00am May 26, 2024 10:20am End: 03-29-2023 predniSONE (DELTASONE) 20 MG tablet [...] Chronic Chronic obstructive pulmonary disease and bronchiectasis (11 sources) Bronchitis, not specified as acute or [...] 05-27-2020 03-26-2019 Chronic Other aftercare (1 source) intermediate manager (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; 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: [INTERMEDIATE CURRNT USE 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] Onset: 12-07-2022 Episodic Other [...] Onset: 03-29-2023 04-16-2020 Chronic Residual codes; unclassified (20 sources) Obstructive sleep apnea syndrome; 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: [Obstructive [...] Spondylosis; intervertebral disc disorders; other back problems (14 sources) Radiculopathy, lumbar region; 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: [Spinal stenosis, [...] Cough, unspecified; 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: [Cough, unspecified] Onset: 05-26-2024 Unclassified (2 sources) M16.0 - Bilateral primary osteoarthritis of hip,M17.0 - Bilateral primary osteoarthritis of knee,M54.50 - Low back pain, unspecified Past or Other Problems Problem Classification Problem [...] aftercare (20 sources) Drug therapy finding; 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: [USP (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] Onset: 09-03-2020 Episodic [...] and Corynebacterium diphtheriae antigens (medicinal product); 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: [Knxpwspjzr-vdhqlqt-f ertussis, combined [DTP] [DtaP]] Onset: 02-13-2014 Viral infection (1 source) COVID-19 Results Test Name Value Interpretation Reference Range Facility INR in Platelet poor plasma by Coagulation assayon 12-16-2024 INR Coag (PPP) [Relative time] 2.24 {INR} [facility] Comment on above: DESIRED INR:2.0-3.0 CONDITIONS NOT LISTED BELOW2.5-3.5 FOR PROSTHETIC HEART VALVE REPLACEMENT2.5-3.5 RECURRENT THROMBOSIS Prothrombin time (PT)on PT Coag (PPP) [Time] 21.9 s High 9.0-11.6 [facility] X-ray reportOrdered By: Luz Bryan on 05-26-2024 Study report [facility] [place] [address] XRay Report Signed Patient: Evangelist Ybarra MR#: [id number] : 1955 Acct:[id number] Age/Sex: 68 / M ADM Date: 4 Loc: [facility] Room: Type: [facility] Attending Dr: Mariela Mosley APRN Copies [...] Lupis Bryan M.D.05/26/2024 10:23 AM Dictation Location: RADIO-PC-02 Transcribed By: LIV 05/26/24 1023 Dictated By: Lupis Bryan MD 05/26/24 1022 Signed By: 05/26/24 1023 [facility] Work Phone: XR chest 2V*on 05-26-2024 XR chest 2V* [facility] [place] [address] XRay Report Signed Patient: Evangelist Ybarra MR#: [id number] : 1955 Acct:[id number] Age/Sex: 68 / M ADM Date: 05/26/24 Loc: XDUC Room: Type: [facility] Attending Dr: Mariela Mosley INBOUND CUSTOMER SERVICE AGENT Copies to: Mariela Mosley APRN Ordering Provider: [...] Lupis Bryan M.D.05/26/2024 10:23 AM Dictation Location: RADIO--02 Transcribed By: LIV 05/26/24 1023 Dictated By: Lupis Bryan MD 05/26/24 1022 Signed By: 05/26/24 1023 Normal [facility] Influenza virus A and B and SARS-CoV-2 (COVID-19) RNA panel - Respiratory system specon 05-08-2024 Influenza virus A and B RNA and SARS-CoV-2 (COVID-19) N gene panel ANNIE+probe (Resp) Influenza virus A and B and SARS-CoV-2 (COVID-19) RNA panel - Respiratory system spec [facility] Laboratory - Microbiology an d Antimicrobial susceptibilityon 05-08-2024 SARS-CoV-2 (COVID-19) RNA ANNIE+probe Ql (Unsp spec) Negative [facility] No Panel Informationon 05-08 POC Influenza B (ANNIE) Negative [facility] INR in Platelet poor plasma by Coagulation assayon 04-29-2024 INR Coag (PPP) [Relative time] 2.42 {INR} [facility] Comment on above: DESIRED INR:2.0-3.0 CONDITIONS NOT LISTED BELOW2.5-3.5 FOR PROSTHETIC HEART VALVE REPLACEMENT2.5-3.5 RECURRENT THROMBOSIS INR Coag (PPP) [Relative time] INR in Platelet poor plasma by Coagulation assay [facility] Comment on above: DESIRED INR:2.0-3.0 CONDITIONS NOT LISTED BELOW2.5-3.5 FOR PROSTHETIC HEART VALVE REPLACEMENT2.5-3.5 RECURRENT THROMBOSIS Prothrombin time (PT)on 04-10 PT Coag (PPP) [Time] 23.5 s High 9.0-11.6 [facility] PT Coag (PPP) [Time] Prothrombin time (PT) High 9.0-11.6 [facility] Progress Noteson 04-15-2024 Enrollment Coordinator Authentication Interface Message Text EP video visit [...] his last visit, he had lexiscan at [facility] on 09/2016 that showe no reversible [...] in 1 year Prior to your visit, [facility] shared information with you about the [...] of patient Time-Based Billing Justifications: Charting in [facility] Patient visit (including performing a medically [...] 180 Tablet 3 Sodium Sulfate-Mag Sulfate-KCl (Sutab) 0727-380-532 MG TABS Take by mouth. AMLODIPINE BESYLATE [...] declined Stress: No Stress Concern Present (03/27/2023) [employer] [place] [employer] - Occupational Stress Questionnaire Feeling of Stress : Not at all Social Connections: Moderately Integrated (03/27/2023) Social Connection and Isolation Panel [NHANES] Frequency of Communicatio (more content not included)... Normal [facility] Ambulatory Visit Summaryon 0 01-23-2024 Ambulatory [...] Schedule the Following Appointments Follow Up with CATHIE HERNANDEZ PA-C, URL When: Only if needed Where: [address] [place] [address] [phone] Medications What How Much When Instructions Unchanged [...] ? Ne (more content not included)... Normal [facility] Provider Letteron 01-23-2024 Provider Letter Provider Letter DONALD LIZARRAGA, [address] [place] [id number] Re: EVANGELIST YBARRA Date of : [address] ELHAM JACKSON, DONALD YBARRAEVANGELIST was evaluated at [facility] 01/30/2024 10:00:00 As this patient has been stable, they will be released back to your care. We request that you continue to check PSA annually for prostate cancer screening Should the patient develop new symptoms, worsening condition, or abnormal imaging/labs in the future, do not hesitate to refer them back. Thanks! Provider Signature: Cathie Hernandez PA-C Physician Revenue Director [facility] [address] [place] [address] Marvin Aquino [facility] Urology Office/Clinic Noteon 01-23-2024 Urology Office/Clinic Note Urology Office/Clinic Note Chief Complaint 1 year follow up with PSA HPI Staff 68 year old patient presents today for a 1 year follow up with PSA. No recent PSA on [facility], TB, [facility], or [facility]. DX: BPH, ED [...] prn at prior OV pending clearance from program development manager but pt never filled script. Not a [...] GARCIA, CATHIE Ruano, URL Only if needed [address] [place] [address] [phone] Additional Instructions: Patient Education Erectile Dysfunction Documentation recorded by the juan david Caceres accurately reflects the services(s) I performed and decisions made by me. Authenticated by Cathie Hernandez PA-C on 01/23/2024 14:33:17. Krystyna Rao, personally scribed for Cathie Hernandez PA-C on [...] tab(s), Oral, Daily olopatadine 0.7% ophthalmic solution Os-Vaery 500, 500 mg, Oral, BID Super B Complex, 1 tab(s), Oral, Daily Viagra 25 mg Tab, 25 mg= 1 tab(s), Oral, As Directed, PRN, 2 refills warfarin Allergies No Known Medication Allergies Social History Alcohol - De (more content not included)... Normal [facility] Comment on above: Result Comment: Elec [...] (Urine sed) [#/Area] 0-2 /HPF Normal 0-2/HPF [facility] UA Auto SS Glucose Test strip (U) [Mass/Vol] Negative (01/24/23 10:19 AM) Normal Negative [facility] UA Auto SS Hemoglobin Ql (U) Negative (01/24/23 10:19 AM) Normal Negative [facility] UA Auto SS Ketones (U) [Mass/Vol] Negative (01/24/23 10:19 AM) Normal Negative [facility] UA Auto SS [place].plasma/Lith ium.RBC (Bld) [Mass ratio] 0-3 /HPF Normal 0-3/HPF [facility] UA Auto SS Nitrite Ql (U) Negative (01/24/23 10:19 AM) Normal Negative [facility] UA Auto SS pH (U) 5.0 *NA* (01/24/23 10:19 AM) Invalid Interpretation Code 5.0 - 9.0 [facility] UA Auto SS Protein (U) [Mass/Vol] Negative (01/24/23 10:19 AM) Normal Negative [facility] UA Auto SS Specific gravity (U) [Rel density] >=1.030 *NA* (01/24/23 10:19 AM) Invalid Interpretation Code 1.005 - 1.030 [facility] UA Auto SS UA Spec Desc Random Urine (01/24/23 10:19 AM) Normal [facility] UA Auto SS Urobilinogen Qn (U) 0.8431568 {Anne'U}/dL Normal 0.0 - 1.0 EU/dL [facility] UA Auto SS WBC Auto Ql (U) Negative (01/24/23 10:19 AM) Normal Negative [facility] UA Auto SS WBC LM.HPF (Urine sed) [#/Area] 0-5 /HPF Normal 0-5/HPF [facility] UA Auto SS XR CSPINE MIN 4 VIEWSon 05-0 XR [...] UNA SEARS Date: 2022-11-10 09:46 Normal [facility] CBC AUTO DIFFon 2022 BASO # 0.0 103/ul Normal 0.0-0.1 [facility] Comment on above: Performed By: #### C BC #### [facility] [address] [place] [address] Dr. Jason Pearson Basophils/100 WBC (Bld) 0.7 % Normal 0.2-2.0 [facility] Comment on above: Performed By: #### C BC #### [facility] [address] [place] [address] Dr. Jason Pearson EO # 0.2 103/ul Normal 0.0-0.7 [facility] Comment on above: Performed By: #### C BC #### [facility] [address] [place] [address] Dr. Jason Pearson Eosinophils/100 WBC (Bld) 3.7 % Normal 0.9-7.0 [facility] Comment on above: Performed By: #### C BC #### [facility] [address] [place] [address] Dr. Jason Pearson Erythrocyte distribution width (RBC) [Ratio] 14.0 % Normal 11.0-15.0 [facility] Comment on above: Performed By: #### C BC #### [facility] [address] [place] [address] Dr. Jason Pearson Hematocrit (Bld) [Volume fraction] 41.0 % Critically low 42.0-54.0 [facility] Comment on above: Performed By: #### C BC #### [facility] [address] [place] [address] Dr. Jason Pearson Hemoglobin (Bld) [Mass/Vol] 13.8 g/dL Critically low 14.0-18.0 [facility] Comment on above: Performed By: #### C BC #### [facility] [address] [place] [address] Dr. Jason Pearson IG # 0.01 10e3/ul Normal 0.00-0.03 [facility] Comment on above: Performed By: #### C BC #### [facility] [address] [place] [address] Dr. Jason Pearson IG % 0.2 % Normal 0.0-0.5 [facility] Comment on above: Performed By: #### C BC #### [facility] [address] [place] [address] Dr. Jason Pearson LYMPH # 1.3 103/ul Normal 1.2-3.8 [facility] Comment on above: Performed By: #### C BC #### [facility] [address] [place] [address] Dr. Jason Pearson Lymphocytes/100 WBC (Bld) 22.3 % Normal 20.5-60.0 [facility] Comment on above: Performed By: #### C BC #### [facility] [address] [place] [address] Dr. Jason Pearson MANUAL DIFF REQ NO Normal [facility] Comment on above: Performed By: #### C BC #### [facility] [address] [place] [address] Dr. Jason Pearson MCH (RBC) [Entitic mass] 32.6 pg Normal 25.9-34.0 [facility] Comment on above: Performed By: #### C BC #### [facility] [address] [place] [address] Dr. Jason Pearson MCHC (RBC) [Mass/Vol] 33.7 g/dL Normal 29.9-35.2 [facility] Comment on above: Performed By: #### C BC #### [facility] [address] [place] [address] Dr. Jason Pearson MCV (RBC) [Entitic vol] 96.9 fL Critically high 80.0-94.0 [facility] Comment on above: Performed By: #### C BC #### [facility] [address] [place] [address] Dr. Jason Pearson MONO # 0.6 103/ul Normal 0.3-0.8 [facility] Comment on above: Performed By: #### C BC #### [facility] [address] [address] [address] Jason Pearson Monocytes/100 WBC (Bld) 10.5 % Normal 1.7-12.0 [facility] Comment on above: Performed By: #### C BC #### [facility] [address] [address] [address] Jason Pearson NEUT # 3.7 103/ul Normal 1.4-6.5 [facility] Comment on above: Performed By: #### C BC #### [facility] [address] [address] [address] Jason Pearson Neutrophils/100 WBC (Bld) 62.6 % Normal 43.0-75.0 [facility] Comment on above: Performed By: #### C BC #### [facility] [address] [place] [address] Dr. Jason Pearson Platelet mean volume (Bld) [Entitic vol] 9.9 fL Normal 9.5-13.5 [facility] Comment on above: Performed By: #### C BC #### [facility] [address] [address] [address] Jason Pearson PLT 181 103/ul Normal 150-450 [facility] Comment on above: Performed By: #### C BC #### [facility] [address] [place] [address] Dr. Jason Pearson RBC 4.23 106/ul Critically low 4.70-6.10 [facility] Comment on above: Performed By: #### C BC #### [facility] [address] [address] [address] Jason Pearson WBC 5.9 103/ul Normal 4.0-11.0 [facility] Comment on above: Performed By: #### C BC #### [facility] [address] [place] [address] Dr. Jason Pearson LIPID PROFILEon 2022 CHOL-HDL RATIO NORM SEE BELOW Normal [facility] Comment on above: Result Comment: 3.3 - 4.4 LOW RISK 4.4 - 7.1 AVERAGE RISK 7.1 - 11.0 MODERATE RISK >11.0 HIGH RISK Performed By: #### C MP, LIPID ####[facility] [id number] [id number][address] Jason Pearson Cholesterol [Mass/Vol] 163 mg/dL Normal <=200 [facility] Comment on above: Performed By: #### C MP, LIPID ####[facility] [address] [place], [place] [address]Af. Jason Pearson Cholesterol in HDL [Mass/Vol] 49 mg/dL Normal 40-60 [facility] Comment on above: Performed By: #### C MP, LIPID ####[facility] [address] [id number]. Jason Pearson Cholesterol in LDL [Mass/Vol] 74.6 mg/dL Normal [facility] Comment on above: Performed By: #### C MP, LIPID ####[facility] [address] [id number]. Deboraradha Michel Cholesterol.total/C holesterol in HDL [Mass ratio] 3.3 {ratio} Normal [facility] Comment on above: Performed By: #### C MP, LIPID ####[facility] [address] [id number]. Jason Pearson HDL NORMAL > or = 60 mg/dl - LO W CARDIOVASCULAR RISK <40 mg/dl - HIGH CARDIOVASCULAR RISK Normal [facility] Comment on above: Performed By: #### C MP, LIPID ####[facility] [address] [id number]. Jason Pearson LDL CALC NORMAL SEE BELOW Normal [facility] Comment on above: Result Comment: <100 mg/dl OPTIMAL 100 - 129 mg/dl NEAR OR ABOVE OPTIMAL 130 - 159 mg/dl BORDERLINE HIGH 160 - 189 mg/dl HIGH >190 mg/dl VERY HIGH Performed By: #### C MP, LIPID ####[facility] [address] [id number]. Jason Pearson Triglyceride [Mass/Vol] 197 mg/dL Critically high <=150 [facility] Comment on above: Performed By: #### C MP, LIPID ####[facility] [address] [place], [place] [address]SgDusty Pearson VLDL CALC 39.4 mg/dL Normal [facility] Comment on above: Performed By: #### C MP, LIPID ####[facility] [address] [place], [place] [address]RqDusty Pearson MICROALBUMIN, RAND URon mALB 1.3 mg/L Normal <=30.0 [facility] Comment on above: Performed By: #### M ALBR ####[facility] [address] [address]DrDusty Pearson PROF 14(COMP METB)on 023 Albumin [Mass/Vol] 3.7 g/dL Normal 3.4-5.0 [facility] Comment on above: Performed By: #### C MP, LIPID #### [facility] [address] [address] [address] Jason Pearson Albumin/Globulin [Mass ratio] 1.0 {ratio} Normal [facility] Comment on above: Performed By: #### C MP, LIPID #### [facility] [address] [address] [address] Jason Pearson ALP [Catalytic activity/Vol] 56 U/L Normal 46-116 [facility] Comment on above: Performed By: #### C MP, LIPID #### [facility] [address] [address] [address] Jason Pearson ALT [Catalytic activity/Vol] 43 U/L Normal 16-63 [facility] Comment on above: Performed By: #### C MP, LIPID #### [facility] [address] [address] [address] Jason Pearson Anion gap [Moles/Vol] 11.2 mmol/L Normal [facility] Comment on above: Performed By: #### C MP, LIPID #### [facility] [address] [address] [address] Jason Pearson AST [Catalytic activity/Vol] 24 U/L Normal 15-37 [facility] Comment on above: Performed By: #### C MP, LIPID #### [facility] [address] [address] [address] Jason Pearson Bilirubin [Mass/Vol] 0.9 mg/dL Normal 0.2-1.0 [facility] Comment on above: Performed By: #### C MP, LIPID #### [facility] [address] [address] [address] Jason Pearson Calcium [Mass/Vol] 9.6 mg/dL Normal 8.5-10.1 [facility] Comment on above: Performed By: #### C MP, LIPID #### [facility] [address] [address] [address] Jason Pearson Chloride [Moles/Vol] 106 mmol/L Normal 98-107 [facility] Comment on above: Performed By: #### C MP, LIPID #### [facility] [address] [place] [address] Dr. aJson Pearson CO2 [Moles/Vol] 30.1 mmol/L Normal 21.0-32.0 [facility] Comment on above: Performed By: #### C MP, LIPID #### [facility] [address] [address] [address] Jason Pearson Creatinine [Mass/Vol] 1.00 mg/dL Normal 0.70-1.30 [facility] Comment on above: Performed By: #### C MP, LIPID #### [facility] [address] [address] [address] Jason Pearson EGFR-AF [place] >60 Normal >=60 [facility] Comment on above: Performed By: #### C MP, LIPID #### [facility] [address] [address] [address] Jason Pearson EGFR-NON AF [place] >60 Normal >=60 [facility] Comment on above: Performed By: #### C MP, LIPID #### [facility] [address] [address] [address] Jason Pearson Globulin (S) [Mass/Vol] 3.6 g/dL Normal [facility] Comment on above: Performed By: #### C MP, LIPID #### [facility] [address] [address] [address] Jason Pearson Glucose [Mass/Vol] 110 mg/dL Critically high 74-106 [facility] Comment on above: Performed By: #### C MP, LIPID #### [facility] [address] [address] [address] Jason Pearson Potassium [Moles/Vol] 4.3 mmol/L Normal 3.5-5.1 [facility] Comment on above: Performed By: #### C MP, LIPID #### [facility] [address] [address] [address] Jason Pearson Protein [Mass/Vol] 7.3 g/dL Normal 6.4-8.2 [facility] Comment on above: Performed By: #### C MP, LIPID #### [facility] [address] [address] [address] Jason Pearson Sodium [Moles/Vol] 143 mmol/L Normal 136-145 [facility] Comment on above: Performed By: #### C MP, LIPID #### [facility] [address] [address] [address] Jason Pearson Urea nitrogen [Mass/Vol] 15.0 mg/dL Normal 7.0-18.0 [facility] Comment on above: Performed By: #### C MP, LIPID #### [facility] [address] [address] [address] Jason Pearosn Urea nitrogen/Creatinine [Mass ratio] 15.0 mg/mg Normal [facility] Comment on above: Performed By: #### C MP, LIPID #### [facility] [address] [address] [address] Jason Pearson PROTIMEon 06-28-2022 INR Coag (PPP) [Relative time] 1.11 {INR} Normal [facility] Comment on above: Performed By: #### P T ####[facility] [address] [address]Dr. Jason Pearson INR GUIDELINES SEE BELOW Normal [facility] Comment on above: Result Comment: KOFI RED INR: 2.0 - 3.0 CONDITIONS NOT LISTED BELOW 2.5 - 3.5 FOR PROSTHETIC HEART VALVE REPLACEMENT 2.5 - 3.5 RECURRENT THROMBOSIS Performed By: #### P T ####[facility] [address] [address]Dr. Jason Pearson PT Coag (PPP) [Time] 11.9 s Critically high 9.0-11.6 [facility] Comment on above: Performed By: #### P T ####[facility] [address] [address]Dr. Jason Pearson PROTIMEon 03-22-2022 INR Coag (PPP) [Relative time] 1.32 {INR} Normal [facility] Comment on above: Performed By: #### P T #### [facility] [address] [place] [address] Dr. Jason Pearson INR GUIDELINES SEE BELOW Normal [facility] Comment on above: Result Comment: KOFI RED INR: 2.0 - 3.0 CONDITIONS NOT LISTED BELOW 2.5 - 3.5 FOR PROSTHETIC HEART VALVE REPLACEMENT 2.5 - 3.5 RECURRENT THROMBOSIS Performed By: #### P T #### [facility] [address] [address] [address] Jason Pearson PT Coag (PPP) [Time] 14.0 s Critically high 9.0-11.6 [facility] Comment on above: Performed By: #### P T #### [facility] [address] [address] [address] Jason Pearson PROTIMEon 02-07-2022 INR Coag (PPP) [Relative time] 1.08 {INR} Normal [facility] Comment on above: Performed By: #### P T #### [facility] [address] [address] [address] Jason Pearson INR GUIDELINES SEE BELOW Normal [facility] Comment on above: Result Comment: KOFI RED INR: 2.0 - 3.0 CONDITIONS NOT LISTED BELOW 2.5 - 3.5 FOR PROSTHETIC HEART VALVE REPLACEMENT 2.5 - 3.5 RECURRENT THROMBOSIS Performed By: #### P T #### [facility] [address] [place] [address] Dr. Jason Pearson PT Coag (PPP) [Time] 11.6 s Normal 9.0-11.6 [facility] Comment on above: Performed By: #### P T #### [facility] [address] [address] [address] Jason Pearson XR HIP RT INJon [...] RUPERT MOON Date: 2022-02-07 11:09 Normal [facility] Initial Visit (Gastroenterol ogy)on 03-28-2018 Initial [...] from the patient and documented on the [facility] health history questionnaire. Pertinent positives and [...] MG Oral Tablet; TAKE 1 TABLET DAILY;Therapy: (Recorded:[id number]) to Recorded Dispense: 0 Days ; #: Sufficient Tablet; Refill: 0; KP = N; Record; Last Updated By: Toyin Angeles; 03/28/2018 9:14:26 AM Flecainide Acetate 100 MG Oral Tablet; TAKE 1 TABLET EVERY 12 HOURS DAILY;Therapy: (Recorded:60Anm3756) to Recorded Dispense: 0 Days ; #: Sufficient Tablet; Refill: 0; KP = N; Record; Last Updated By: Toyin Angeles; 03/28/2018 9:14:26 AM HydroCHLOROthiazide 25 MG Oral Tablet; TAKE 1 TABLET DAILY;Therapy: (Recorded:[id number]) to Recorded Dispense: 0 Days ; #: Sufficient Tablet; Refill: 0; KP = N; Record; Last Updated By: Toyin Angeles; 03/28/2018 9:14:26 AM Imodium A-D CAPS;Therapy: (Recorded:[id number]) to Recorded Dispense: 0 Days ; #: Sufficient CAPS; Refill: 0; KP = N; Record; Last Updated By: Toyin Angeles; 03/28/2018 9:14:26 AM Klor-Con M20 20 MEQ Oral Tablet Extended Release; TAKE 2 TABLETS TWICE DAILY;Therapy: (Recorded:[id number]) to Recorded Dispense: 0 Days ; #: Sufficient Tablet Extended Release; Refill: 0; KP = N; Record; Last Updated By: Toyin Angeles; 03/28/2018 9:14:26 AM Lisinopril 40 MG Oral Tablet; TAKE 1 TABLET DAILY;Therapy: (Recorded:[id number]) to Recorded Dispense: 0 Days ; #: Sufficient Tablet; Refill: 0; KP = N; Record; Last Updated By: Toyin Angeles; 03/28/2018 9:14:26 AM Loratadine 10 MG Oral Tablet; TAKE 1 TABLET DAILY;Therapy: (Recorded:[id number]) to Recorded Dispense: 0 Days ; #: Sufficient Tablet; Refill: 0; KP = N; Record; Last Updated By: Toyin Angeles; 03/28/2018 9:14:26 AM Metoprolol Tartrate 100 MG Oral Tablet; TAKE 1 TABLET DAILY;Therapy: (Recorded:05Rth0519) to Recorded Dispense: 0 Days ; #: Sufficient Tablet; Refill: 0; KP = N; Record; Last Updated By: Toyin Angeles; 03/28/2018 9:14:26 AM Multivitamins TABS;Therapy: (Recorded:92Evv2574) to Recorded Dispense: 0 Days ; #: Sufficient TABS; Refill: 0; KP = N; Record; Last Updated By: Toyin Angeles; 03/28/2018 9:14:26 AM Tamsulosin HCl - 0.4 MG Oral Capsule;Therapy: (Recorded:62Whv8506) to Recorded Dispense: 0 Days ; #: Sufficient Capsule; Refill: 0; KP = N; Record; Last Updated By: Toyin Angeles; 03/28/2018 9:14:26 AM Vitamin B-12 ER 1500 MCG Oral Tablet Extended Release;Therapy: (Recorded:[id number]) to Recorded Dispense: 0 Days ; #: Sufficient TBCR; Refill: 0; KP = N; Record; Last Updated By: Toyin Angeles; 03/28/2018 9:14:26 AM Vitamin D3 2000 UNIT Oral Tablet;Therapy: (Recorded:78Iei9235) to Recorded Dispense: 0 Days ; #: Sufficient Tablet; Refill: 0; KP = N; Record; Last Updated By: Toyin Angeles; 03/28/2018 9:14:26 AM Warfarin Sodium 5 MG Oral Tablet; TAKE 1 TABLET DAILY;Therapy: (Recorded:[id number]) to Recorded Dispense: 0 Days ; #: Sufficient Tablet; Refill: 0; KP = N; Record; Last Updated By: Toyin Angeles; 03/28/2018 9:14:26 AM Vitals Vital Signs Recorded: 28Mar2018 09:12AMHeart Cznu66Byuewdfffhw46Dnbeohfs53 5Puxskihdb24Kosibt3 ft 2 eaMlfdxl881 lb 6 ozBMI Hrtmkqqful96.52BSA Calculated2.67 Physical ExamConstitutional General appearance: In no [...] diarrhea; KP = N; Verified Transmission to [id number]; Last Updated By: [employer]; 03/28/2018 9:44:38 AM Provider ImpressionsSubmucosal duodenal lesion [...] Tablet; TAKE 1 TABLET DAILY;Therapy: (Recorded:28Mar2018) to RecordedCholestyramine Light 4 GM Oral Packet; MIX THE CONTENTS OF 1 POWDER PACKETWITH 2-6 OZ OF NONCARBONATED BEVERAGE AND SWALLOW ONCE DAILY;Therapy: [id number] to (Evaluate:08Nra3249) Requested for: [id number]; LastRx:28Mar2018 OrderedFlecainide Acetate 100 MG Oral Tablet; TAKE 1 TABLET EVERY 12 HOURS DAILY;Therapy: (Recorded:79Jle1946) to RecordedHydroCHLOROthiazide 25 MG Oral Tablet; TAKE 1 TABLET DAILY;Therapy: (Recorded:45Vev7594) to RecordedImodium A-D CAPS (Loperamide HCl);Therapy: (Recorded:33Swp1687) to RecordedKlor-Con M20 20 MEQ Oral Tablet Extended Release; TAKE 2 TABLETS TWICE DAILY;Therapy: (Recorded:61Nfr3863) to RecordedLisinopril 40 MG Oral Tablet; TAKE 1 TABLET DAILY;Therapy: (Recorded:45Duj7108) to RecordedLoratadine 10 MG Oral Tablet; TAKE 1 TABLET DAILY;Therapy: (Recorded:87Uvl5042) to RecordedMetoprolol Tartrate 100 MG Oral Tablet; TAKE 1 TABLET DAILY;Therapy: (Recorded:48Owp3086) to RecordedMultivitamins TABS;Therapy: (Recorded:15Exo2679) to RecordedTamsulosin HCl - 0.4 MG Oral Capsule;Therapy: (Recorded:20Uge4791) to RecordedVitamin B-12 ER 1500 MCG Oral Tablet Extended Release;Therapy: (Recorded:29Vgs5550) to RecordedVitamin D3 2000 UNIT Oral Tablet;Therapy: (Recorded:70Bqq2787) to RecordedWarfarin Sodium 5 MG Oral Tablet; TAKE 1 TABLET DAILY;Therapy: (Recorded:69Uqs9405) to Recorded Signatures Electronically signed by : Devin Greer DO; Mar 28 2018 9:51AM EST (Author) Normal [employer] Vital Signs Date Time Vital Sign Value Performing Clinician Facility 03-03-2025 10:51-0400 Body height 187.96 cm Donald Lizarraga MD Work Phone: [facility] 03-03-2025 10:[id number] Body mass index (BMI) [Ratio] 38.1 kg/m2 Donald Lizarraga MD Work Phone: [facility] 03-03-2025 10:51-0400 Body weight 134.7 kg Donald Lizarraga MD Work Phone: [facility] 02-12-2025 09:22-0400 Body height 187.96 cm Donald Lizarraga MD Work Phone: [facility] 02-12-2025 09:22-0400 Body mass index (BMI) [Ratio] 38.1 kg/m2 Donald Lizarraga MD Work Phone: [facility] 02-12-2025 09:22-0400 Body weight 134.71 kg Donald Lizarraga MD Work Phone: [facility] 02-12-2025 09:22-0400 Diastolic blood pressure 77 mm[Hg] Donald Lizarraga MD Work Phone: [facility] 02-12-2025 09:22-0400 Heart rate 61 /min Donald Lizarraga MD Work Phone: [facility] 02-12-2025 09:22-0400 Systolic blood pressure 128 mm[Hg] Donald Lizarraga MD Work Phone: [facility] 05-29-2024 09:52-0500 Body height 187.96 cm Donald Lizarraga MD Work Phone: [facility] 05-29-2024 09:52-0500 Body mass index (BMI) [Ratio] 38.4 kg/m2 Donald Lizarraga MD Work Phone: [facility] 05-29-2024 09:52-0500 Body temperature 98.5 [degF] Donald Lizarraga MD Work Phone: [facility] 05-29-2024 09:52-0500 Body weight 135.62 kg Donald Lizarraga MD Work Phone: [facility] 05-29-2024 09:52-0500 Diastolic blood pressure 81 mm[Hg] Donald Lizarraga MD Work Phone: [facility] 05-29-2024 09:52-0500 Heart rate 73 /min Donald Lizarraga MD Work Phone: [facility] 05-29-2024 09:52-0500 SaO2% (BldA) [Mass fraction] 98 % Donald Lizarraga MD Work Phone: [facility] 05-29-2024 09:52-0500 Systolic blood pressure 137 mm[Hg] Donald Lizarraga MD Work Phone: [facility] 05-26-2024 09:18-0500 Body height 187.96 cm Donald Lizarraga MD Work Phone: [facility] 05-26-2024 09:18-0500 Body mass index (BMI) [Ratio] 38.5 kg/m2 Donald Lizarraga MD Work Phone: [facility] 05-26-2024 09:18-0500 Body temperature 98.1 [degF] Donald Lizarraga MD Work Phone: [facility] 05-26-2024 09:18-0500 Body weight 136.13 kg Donald Lizarraga MD Work Phone: [facility] 05-26-2024 09:18-0500 Diastolic blood pressure 77 mm[Hg] Donald Lizarraga MD Work Phone: [facility] 05-26-2024 09:18-0500 Heart rate 73 /min Donald Lizarraga MD Work Phone: [facility] 05-26-2024 09:18-0500 Respiratory rate 18 /min Donald Lizarraga MD Work Phone: [facility] 05-26-2024 09:18-0500 SaO2% (BldA) [Mass fraction] 96 % Donald Lizarraga MD Work Phone: [facility] 05-26-2024 09:18-0500 Systolic blood pressure 127 mm[Hg] Donald Lizarraga MD Work Phone: [facility] 05-08-2024 09:24-0400 Body height 187.96 cm [facility] 05-08-2024 09:24-0400 Body mass index (BMI) [Ratio] 38.8 kg/m2 [facility] 05-08-2024 09:24-0400 Body temperature 98 [degF] [facility] 05-08-2024 09:24-0400 Body weight 137.15 kg [facility] 05-08-2024 09:24-0400 Diastolic blood pressure 73 mm[Hg] [facility] 05-08-2024 09:24-0400 Heart rate 70 /min [facility] 05-08-2024 09:24-0400 Respiratory rate 18 /min [facility] 05-08-2024 09:24-0400 SaO2% (BldA) [Mass fraction] 98 % [facility] 05-08-2024 09:24-0400 Systolic blood pressure 167 mm[Hg] [facility] 01-23-2024 14:11-0400 Blood Pressure Location CATHIEHUNTER HERNANDEZ [facility] 01-23-2024 14:11-0400 Body temperature 97.88 [degF] CATHIE TIANA [facility] 01-23-2024 14:11-0400 Diastolic blood pressure 74 mm[Hg] CATHIE TIANA [facility] 01-23-2024 14:11-0400 Heart rate 67 /min CATHIE TIANA [facility] 01-23-2024 14:11-0400 Respiratory rate 16 /min CATHIE TIANA [facility] 01-23-2024 14:11-0400 Systolic blood pressure 138 mm[Hg] CATHIE TIANA [facility] 10-19-2023 10:19-0400 Body height 187.96 cm [facility] 10-19-2023 10:19-0400 Body mass index (BMI) [Ratio] 40.1 kg/m2 [facility] 10-19-2023 10:190400 Body weight 141.63 kg [facility] 10-19-2023 10:19-0400 Diastolic blood pressure 84 mm[Hg] [facility] 10-19-2023 10:19-0400 Heart rate 71 /min [facility] 10-19-2023 10:19-0400 SaO2% (BldA) [Mass fraction] 98 % [facility] 10-19-2023 10:19-0400 Systolic blood pressure 132 mm[Hg] [facility] 07-13-2023 15:30-0500 Body height 187.96 cm Donald Lizarraga Other [employer] [facility] [employer] Other 07-13-2023 15:30-0500 Body mass index (BMI) [Ratio] 40.18 kg/m2 Donald Lizarraga Other [employer] Other 07-13-2023 15:30-0500 Body weight 141.98 kg Donald Lizarraga Other [employer] Other 07-13-2023 15:30-0500 Diastolic blood pressure 86 mm[Hg] Donald Lizarraga Other [employer] Other 07-13-2023 15:30-0500 Systolic blood pressure 142 mm[Hg] Donald Lizarraga Other [employer] Other 01-24-2023 10:00-0400 Blood Pressure Location CATHIE HERNANDEZ [facility] 01-24-2023 10:00-0400 Diastolic blood pressure 80 mm[Hg] CATHIE AZEVEDORY [facility] 01-24-2023 10:00-0400 Heart rate 72 /min CATHIE TIANA [facility] 01-24-2023 10:00-0400 Respiratory rate 16 /min CATHIE TIANA [facility] 01-24-2023 10:00-0400 Systolic blood pressure 130 mm[Hg] CATHIE TIANA [facility] 10-06-2022 10:17-0400 Diastolic blood pressure 78 mm[Hg] Daigle SALAM [facility] 10-06-2022 10:17-0400 Heart rate 69 /min Daigle SALAM [facility] 10-06-2022 10:17-0400 Respiratory rate 16 /min Daigle SALAM [facility] 10-06-2022 10:17-0400 SaO2% (BldA) [Mass fraction] 99 % Daigle SALAM [facility] 10-06-2022 10:17-0400 Systolic blood pressure 122 mm[Hg] Daigle SALAM [facility] 10-06-2022 10:05-0400 Diastolic blood pressure 76 mm[Hg] Daigle SALAM [facility] 10-06-2022 10:05-0400 Heart rate 67 /min Daigle SALAM [facility] 10-06-2022 10:05-0400 Respiratory rate 18 /min Daigle SALAM [facility] 10-06-2022 10:05-0400 SaO2% (BldA) [Mass fraction] 99 % Daigle SALAM [facility] 10-06-2022 10:05-0400 Systolic blood pressure 135 mm[Hg] Daigle SALAM [facility] 10-06-2022 10:00-0400 Diastolic blood pressure 70 mm[Hg] Daigle SALAM [facility] 10-06-2022 10:00-0400 Heart rate 66 /min Daigle SALAM [facility] 10-06-2022 10:00-0400 Systolic blood pressure 134 mm[Hg] Daigle SALAM [facility] 10-06-2022 09:55-0400 Respiratory rate 16 /min Daigle SALAM [facility] 10-06-2022 09:52-0400 Body temperature 97.7 [degF] Daigle SALAM [facility] 10-06-2022 09:40-0400 Respiratory rate 1 /min Daigle SALAM [facility] 10-06-2022 08:21-0400 Blood Pressure Location Daigle SALAM [facility] 10-06-2022 08:21-0400 Body temperature 97.88 [degF] Daigle SALAM [facility] 07-29-2022 14:15-0500 Diastolic blood pressure 88 mm[Hg] Elicia Hipolito [facility] 07-29-2022 14:15-0500 Mean blood pressure 105 mm[Hg] Elicia Hipolito [facility] 07-29-2022 14:15-0500 Systolic blood pressure 138 mm[Hg] Elicia Hipolito [facility] 07-29-2022 14:11-0500 Blood Pressure Location Elicia Hipolito [facility] 07-29-2022 14:11-0500 Body temperature 97.88 [degF] Elicia Mcmillan [facility] 07-29-2022 14:11-0500 Diastolic blood pressure 87 mm[Hg] Elicia Mcmillan [facility] 07-29-2022 14:11-0500 Heart rate 77 /min Elicia Mcmillan [facility] 07-29-2022 14:11-0500 Systolic blood pressure 147 mm[Hg] Elicia Mcmillan [facility] 07-26-2022 10:45-0500 Body height 187.96 cm Donald Lizarraag Other [employer] Other 07-26-2022 10:45-0500 Body mass index (BMI) [Ratio] 41.47 kg/m2 Donald Lizarraga Other [employer] Other 07-26-2022 10:45-0500 Body weight 146.51 kg Donald Lizarraga Other [employer] Other 07-26-2022 10:45-0500 Diastolic blood pressure 84 mm[Hg] Donald Lizarraga Other [facility] Other 07-26-2022 10:45-0500 SaO2% (BldA) [Mass fraction] 97 % Donald Lizarraga Other [facility] Other 07-26-2022 10:45-0500 Systolic blood pressure 142 mm[Hg] Donald Lizarraga Other [employer] Other 10-27-2021 12:02-0400 Blood Pressure Location CATHIE HERNANDEZ [facility] 10-27-2021 12:02-0400 Diastolic blood pressure 78 mm[Hg] CATHIE HERNANDEZ [facility] 10-27-2021 12:02-0400 Heart rate 77 /min CATHIE HERNANDEZ [facility] 10-27-2021 12:02-0400 Systolic blood pressure 141 mm[Hg] CATHIE HERNANDEZ [facility] Encounters Encounter Date Encounter Type Care Provider Facility Start: 03-03-2025 End: 03-03-2025 ambulatory Donald Lizarraga MD Work Phone: [facility] Work Phone: Start: 03-03-2025 End: 03-03-2025 Patient encounter procedure Peter Auguste DO -[facility] [place] Work Phone: Start: 02-12-2025 End: 02-12-2025 ambulatory Donald Lizarraga MD Work Phone: [facility] Work Phone: Start: 02-12-2025 End: 02-12-2025 Patient encounter procedure Donald Lizarraga MD -[facility] Work Phone: Start: 12-23-2024 End: 12-23-2024 ambulatory Blessing Granda MD Facility:[facility] Start: 12-16-2024 Non-patient / Non-visit Blessing cui MD -[facility] Work Phone: Start: 12-16-2024 End: 12-16-2024 ambulatory Blessing Granda MD Facility:[facility] Start: 12-14-2024 End: 12-14-2024 Letter encounter Emperatriz Carnes DO Work Phone: [facility] Start: 11-28-2024 Non-patient / Non-visit Merlyn Mesa [facility] Work Phone: Start: 11-25-2024 End: 11-25-2024 ambulatory Blessing Granda MD Facility:[facility] Start: 11-06-2024 End: 11-06-2024 Refill Prasanth Perez MD Work Phone: [facility] Comment on above: Refill Start: 05-29-2024 End: 05-29-2024 ambulatory Donald Lizarraga MD Work Phone: [facility] Work Phone: Start: 05-29-2024 End: 05-29-2024 Patient encounter procedure Donald Lizarraga MD Work Phone: [facility] Work Phone: Start: 05-26-2024 End: 05-26-2024 ambulatory Donald Lizarraga MD Work Phone: [facility] Work Phone: Start: 05-26-2024 End: 05-26-2024 Patient encounter procedure Donald Lizarraga MD Work Phone: [facility] Work Phone: Start: 05-08-2024 End: 05-08-2024 ambulatory [facility] Work Phone: Start: 05-08-2024 End: 05-08-2024 Patient encounter procedure [facility] Work Phone: Start: 04-29-2024 Non-patient / Non-visit [facility] Work Phone: Start: 04-29-2024 End: 04-29-2024 ambulatory Blessing Granda MD Facility:[facility] [place] Start: 04-15-2024 End: 04-15-2024 Office outpatient visit 25 minutes Prasanth Perez MD Work Phone: [facility] Comment on above: PAF (paroxysmal atri al fibrillation) (HCC) (Primary Dx) Start: 04-15-2024 End: 04-15-2024 ambulatory PRASANTH PEREZ Facility:[facility] Start: 01-23-2024 End: 01-23-2024 ambulatory CATHIE HERNANDEZ Facility:[facility] [place] Start: 01-23-2024 End: 01-23-2024 Patient encounter procedure CATHIE HERNANDEZ [facility] Start: 12-27-2023 End: 12-28-2023 Patient encounter status Emperatrizquique Carnes DO Work Phone: [facility] Start: 12-27-2023 End: 12-28-2023 Refill Emperatriz Carnes DO Work Phone: [facility] Comment on above: Refill Start: 10-19-2023 End: 10-19-2023 ambulatory [facility] Work Phone: Start: 10-19-2023 End: 10-19-2023 Patient encounter procedure [facility] Work Phone: Start: 09-07-2023 Non-patient / Non-visit [facility] Work Phone: Start: 07-20-2023 End: 07-20-2023 ambulatory Donald Lizarraga Other [employer] Other Start: 07-20-2023 Telephone encounter Donald Lizarraga [facility] Start: 07-13-2023 End: 07-13-2023 ambulatory Donald Lizarraga Other [employer] Other Start: 07-13-2023 Office outpatient vi sit 15 minutes Donald Lizarraga [facility] Start: 04-04-2023 Patient encounter status Emperatriz Carnes DO Work Phone: [facility] Start: 04-04-2023 Refill Emperatriz Carnes DO Work Phone: [facility] Comment on above: Refill Start: 03-29-2023 End: 03-29-2023 Office outpatient visit 15 minutes Emperatriz Carnes DO Work Phone: [facility] Comment on above: Persistent atrial fi brillation (HCC) (Primary Dx); Anticoagulated; JAVED on CPAP Start: 03-28-2023 End: 03-28-2023 ambulatory Donald Lizarraga Other [employer] Other Start: 03-28-2023 Telephone encounter Donald Lizarraga [facility] Start: 03-18-2023 Letter encounter Emperatriz Carnes D O Work Phone: [facility] Start: 02-16-2023 Telephone encounter Emperatriz Courtney m DO Work Phone: [facility] Comment on above: Question about medic ation Refill Start: 02-14-2023 Patient encounter status Emperatriz Reynoldsim DO Work Phone: [facility] Start: 02-14-2023 Refill Emperatriz Carnes DO Work Phone: [facility] Comment on above: Refill Start: 01-24-2023 End: 01-24-2023 Lab Drop off CATHIE HERNANDEZ [facility] Start: 01-24-2023 End: 01-24-2023 Patient encounter procedure CATHIE HERNANDEZ [facility] Start: 11-10-2022 End: 11-11-2022 ambulatory JEET HERNÁNDEZ . Facility: Start: 11-07-2022 End: 12-07-[address] DONALD LIZARRAGA Facility:[facility] Start: 10-13-2022 ambulatory JAIMEE GUYMIPATHY . Facility:[facility] Start: 10-11-2022 (Televisit) Televisit Donald Lizarraga [facility] Start: 10-11-2022 End: 10-11-2022 ambulatory Donald Lizarraga Other [employer] Other Start: 10-10-2022 End: 11-04-2022 ambulatory WOMACK H FAWWAD Facility:[facility] Start: 10-06-2022 End: 10-06-2022 Patient encounter procedure Daigle FRED [facility] Start: 2022 Telephone encounter Donald Lizarraga [facility] Start: 2022 End: 09-09-[address] [facility] Other Start: 09-07-2022 End: 10-07-2022 ambulatory WOMACK H FAWWAD Facility:[facility] Start: 08-10-2022 End: 09-07-2022 ambulatory WOMACK H FAWWAD Facility:[facility] Start: 07-29-2022 End: 07-29-2022 Patient encounter procedure Elicia Isauro Hipol[facility] Start: 07-26-2022 End: 07-26-2022 ambulatory Donald Lizarraga Other [employer] Other Start: 07-26-2022 Office outpatient vi sit 15 minutes Donald Lizarraga [facility] Start: 07-20-2022 End: 07-21-[address] JADEN [...] encounter status Emperatriz Karim DO Work Phone: [facility] Start: 02-27-2022 Refill Emperatriz Karim DO Work Phone: [facility] Comment on above: Refill Start: 02-07-2022 End: 02-07-[address] DONALD LIZARRAGA Facility:[facility] Start: 02-07-2022 End: 03-09-[address] DONALD LIZARRAGA Facility:[facility] Start: 01-15-2022 Refill Emperatriz Karim DO Work Phone: [facility] Comment on above: Refill Start: 01-07-2022 End: 02-04-[address] DONALD LIZARRAGA Facility:[facility] Start: 11-24-2021 Patient encounter status Emperatriz Karim DO Work Phone: [facility] Start: 11-24-2021 Refill Emperatriz Karim DO Work Phone: [facility] Comment on above: Refill Start: 11-24-2021 Refill Emperatriz Karim DO Work Phone: [facility] Comment on above: Refill Start: 10-27-2021 End: 10-27-2021 Patient encounter procedure CATHIE HERNANDEZ [facility] Start: 03-28-2018 Patient encounter Devin Greer Fa cility:[facility] Start: 04-24-2017 End: 04-25-2017 Ambulatory DEFAULT PHYSICIAN Facility:[facility] Start: 03-03-2017 End: 03-04-2017 Ambulatory DEFAULT PHYSICIAN Facility:[facility] Procedures Date Procedure Procedure Detail Performing Clinician Start: 05-26-2024 Plain chest X-ray Donald Lizarraga MD Work Phone: Start: 10-06-2022 Colonoscopy Oxana IBARRA Start: [address] JADEN VILLA . Comment on above: Performed By: #### [facility] #### [facility] [address] [place] [address] Dr. Jason Pearson Start: 04-23-2020 Transurethral prostatectomy CATHIE PARIS Start: 07-19-2018 Transrectal biopsy of prostate using ultrasound guidance CATHIE HERNANDEZ Start: 12-21-2017 Esophagogastroduodenoscopy Elicia Marilou marrero Start: 08-28-2017 Screening for malignant neoplasm of colon Donald Lizarraga Other Start: 08-26-2016 Screening for malignant neoplasm of prostate Donald Lizarraga Other Start: 04-18-2014 Removal of suture Donald Lizarraga Other Start: 02-13-2014 General examination of patient Donald Rondon sterling Other Colonoscopy CATHIE HERNANDEZ Excision of cyst CATHIE PRIETO Local anesthetic ner ve block in lower limb CATHIE HERNANDEZ Screening for malign ant neoplasm of colon Donald Lizarraga Other Screening for malign ant neoplasm of prostate Donald Lizarraga Other Special back care CATHIE DIAZ Plan of Treatment Date Care Activity Detail Author Start: 09-09-2027 Lipid panel Cholesterol [facility] Start: 02-12-2025 Patient referral [facility] Work Phone: Start: 03-10-2024 COVID-19 Vaccine ( season) COVID-19 Vaccine () [facility] Start: 03-10-2024 COVID-19 Vaccine ( season) COVID-19 Vaccine () [facility] Start: 03-10-2024 Influenza vaccination Influenza Vaccine (#1) [facility] Start: 04-09-2023 Influenza vaccination Influenza Vaccine (#1) [facility] Start: 03-29-2023 End: 03-29-2023 Telemedicine consultation with patient 03/29/2023 4:20 PM EDT Telemedicine [facility] [address] [place] [address] Emperatriz Carnes DO [address] [place] [address] [facility] Start: 03-10-2023 COVID-19 Vaccine ( [...] Screening for malignant neoplasm of colon Colonoscopy [facility] Patient Education Low back pain in adults [facility] Work Phone: Patient referral [facility] Work Phone: Immunizations Immunization Date Immunization Notes Care Provider Fa cility 05-24-2023 Pneumococcal conjuga te 20 valent (PCV20), polysaccharide [id number] conjugate, adjuvant, PF (IYM=403) [employer] Work Phone: [facility] 05-10-2023 influenza virus vaccine, unspecified formulation CATHIE TIANA [facility] 05-10-2023 Influenza, seasonal vaccine, quadrivalent, adjuvanted, 0.5mL dose, preservative free ([id number]=933) Emperatriz [employer] Work Phone: [facility] 05-24-2022 influenza virus vaccine, unspecified formulation Elicia Zamarripaz [facility] 05-24-2022 Influenza, seasonal vaccine, quadrivalent, adjuvanted, 0.5mL dose, preservative free (BYN=506) [employer] Work Phone: [facility] 12-16-2021 Pfizer Monovalent (1 2+ yrs) SARS-COV-2 (COVID-19) vaccine, mRNA, spike protein, LNP, pres. free, 30 mcg/0.3mL dose, art-sucrose (SHV=514) [employer] Work Phone: [facility] 12-16-2021 SARS-CoV-2 mRNA (blvoxwqqffe-tjnm-oldhv se) vaccine Elicia Garciametz [facility] 08-18-2021 pneumococcal conjuga te vaccine, 13 valent Emperatriz [employer] Work Phone: [facility] 06-09-2021 SARS-CoV-2 (COVID-19 ) mRNA BNT-162b2 vax Eliciagurwinder GarciaHipolito [facility] 05-26-2021 SARS-CoV-2 (COVID-19 ) Ad26 vaccine, recombinant CATHIE HERNANDEZ [facility] 05-21-2021 Influenza, seasonal vaccine, quadrivalent, adjuvanted, 0.5mL dose, preservative free (KMB=320) Emperatriz Carnes DO Work Phone: [facility] 05-21-2021 influenza virus vaccine, unspecified formulation Emperatrizquique Carnes DO Work Phone: [facility] 04-28-2021 influenza virus vaccine, unspecified formulation CATHIE HERNANDEZ [facility] 04-28-2021 SARS-CoV-2 (COVID-19 ) Ad26 vaccine, recombinant CATHIE HERNANDEZ [facility] 09-26-2020 Pfizer SARS-COV-2 (COVID-19) vaccine, age 12+ yrs, mRNA, spike protein, LNP, preservative free, 30 mcg/0.3mL dose (EOW=928) Emperatriz Carnes DO Work Phone: [facility] Comment on above: Result Comment: 2022: [id number] 09-05-2020 Pfizer SARS-COV-2 (COVID-19) vaccine, age 12+ yrs, mRNA, spike protein, LNP, preservative free, 30 mcg/0.3mL dose (VLR=100) Emperatriz Carnes DO Work Phone: [facility] Comment on above: Result Comment: 2022: [id number] 05-10-2020 influenza virus vaccine, unspecified formulation CATHIE HERNANDEZ [facility] 05-05-2020 influenza virus vaccine, unspecified formulation Elicia Garciametz [facility] 05-05-2020 Influenza, seasonal vaccine, quadrivalent, adjuvanted, 0.5mL dose, preservative free (HTH=133) Emperatriz Karim DO Work Phone: [facility] 04-29-2019 influenza virus vaccine, unspecified formulation Elicia Mcmillan [facility] 04-29-2019 influenza, high dose seasonal, preservative-free Emperatriz Karim DO Work Phone: [facility] 04-26-2018 influenza virus vaccine, unspecified formulation Elicia Mcmillan [facility] 04-26-2018 Influenza, injectabl e, Madin Jemison Canine Kidney, preservative free, quadrivalent Emperatriz Karim DO Work Phone: [facility] 04-19-2016 influenza virus vaccine, split virus (incl. purified surface antigen) Donald Lizarraga Other [employer] Other 04-19-2016 influenza virus vaccine, unspecified formulation [facility] 04-19-2016 pneumococcal polysaccharide vaccine, 23 valent Donald Lizarraga Other [facility] 06-23-2014 influenza virus vaccine, split virus (incl. purified surface antigen) Donald Lizarraga Other [employer] Other 06-23-2014 influenza virus vaccine, unspecified formulation [facility] 02-13-2014 diphtheria, tetanus toxoids and acellular pertussis vaccine, unspecified formulation Donald Lizarraga Other [facility] Payers Date Payer Category Payer Commercial Indemnity [facility] [id number] 2022 Unknown 2018 Medicare [id number]. [id number] 2018 Medicare FFS MEDICARE [id number] 1959 Medicare [id number] 2.16.840.1.071254.19 1959 Unknown [id number] 2.16.840.1.019289.19 1953 Unknown [id number] 2.16.840.1.114342.3.579.2.5 1953 Unknown [id number] 2.16.840.1.047748.3.579.2.5 1953 Unknown [id number] 2.16.840.1.885670.3.579.2.5 1953 Unknown [id number] 2.16.840.1.552313.3.579.2.5 1953 Unknown [id number] 2.16.840.1.996381.3.579.2.5 1953 Unknown [id number] 2.16.840.1.479674.3.579.2.5 1953 Unknown [id number] 2.16.840.1.721020.3.579.2.5 1953 Unknown [id number] 2.16.840.1.193027.3.579.2.5 93 1953 Unknown [id number] 2.16.840.1.954194.3.579.2.5 1953 Unknown [id number] 2.16.840.1.934629.3.579.2.5 93 1953 Unknown [id number] 2.16.840.1.359402.3.579.2.5 1953 Unknown [id number] 2.16.840.1.458534.3.579.2.5 93 1953 Unknown [id number] 2.16.840.1.597484.3.579.2.5 1953 Unknown [id number] 2.16.840.1.592112.3.579.2.5 1953 Unknown [id number] 2.16.840.1.674443.3.579.2.5 1953 Unknown [id number] 2.16.840.1.284507.3.579.2.5 1953 Unknown [id number] 2.16.840.1.778579.3.579.2.5 1953 Unknown [id number] 2.16.840.1.508420.3.579.2.5 1953 Unknown [id number] 2.16.840.1.928695.3.579.2.5 1953 Unknown [id number] 2.16.840.1.552087.3.579.2.5 1953 Unknown [id number] 2.16.840.1.304438.3.579.2.5 1953 Unknown [id number] 2.16.840.1.496375.3.579.2.5 1953 Unknown [id number] 2.16.840.1.820271.3.579.2.5 1953 Unknown [id number] 2.16.840.1.317289.3.579.2.7 27 1953 Unknown [id number] 2.16.840.1.406365.3.579.2.7 32 1953 Unknown [id number] 2.16.840.1.120241.3.579.2.1 96 1953 Unknown [id number] 2.16.840.1.940451.3.579.2.1 96 1953 Unknown [id number] 2.16.840.1.991133.3.579.2.1 96 1953 Unknown [id number] 2.16.840.1.644727.3.579.2.1 96 Unknown [id number] Unknown Romel BC/BS [id number] Social History Date Type Detail Facility Start: 09-03-2020 End: 05-26-2024 Tobacco smoking status Never smoked tobacco (finding) [facility] Tobacco smoking status Never [facility] Start: 03-27-2023 Sex Assigned At Male [facility] Start: 12-28-2018 Tobacco use and exposure Smokeless tobacco non-user [facility] Start: 12-28-2018 End: 03-27-2023 Alcohol intake Ex-drinker (finding) [facility] Start: 1955 Sex Assigned At Not on file [facility] Start: 1955 Sex Assigned At Male [facility] Start: 03-27-2023 History of Social function [facility] Within the last year , have you been afraid of your partner or ex-partner? No [facility] Do you belong to any clubs or organizations such as holiness groups, unions, fraternal or athletic groups, or school groups? Yes [facility] Are you now , , , , never or living with a partner? [facility] Do you feel stress - tense, restless, nervous, or anxious, or unable to sleep at night because your mind is troubled all the time - these days [OSQ] Not at all [facility] (I/We) worried wheth er (my/our) food would run out before (I/we) got money to buy more. Never true [facility] Start: 03-27-2023 Education 17 [facility] Start: 08-09-2018 End: 05-26-2024 Sex Male (finding) [facility] Start: 03-27-2023 Details of drug misuse behavior Has never misused drugs (situation) [facility] Functional Status Date Assessment Result Facility 01-23-2024 Functional Status N/A [facility] 01-24-2023 Functional Status N/A [facility] 10-06-2022 Functional Status N/A [facility] 07-29-2022 Functional Status N/A [facility] Clinical Notes 11-24-2021 to 02-12-2025 Note Date & Type Note Facility 02-12-2025 Evaluation note Diagnosis Onset Date Resolution A-fib acute February 12 9:16am Bilateral primary osteoarthritis of hip acute February 9:16am Bilateral primary osteoarthritis of knee acute February 9:16am Lumbar pain acute February 12 9:16am Medicare annual wellness visit, subsequent acute February 12 9:16am JAVED on CPAP acute February 12 9:16am Degenerative joint 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 10:28am [facility] Work Phone: 1(890) 885-986510-30-2024 Evaluation note* Diagnosis Onset Date Resolution Status Admit Date Bronchitis acute May 08, 2024 9:18am Cough noneactive May 26, 2024 9:07am [facility] Work Phone: 1(672) 518-579210-07-2024 History of Present illness Narrative* Prasanth Perez [...] his last visit, he had lexiscan at [facility] on 09/2016 that showe no reversible [...] in 1 year Prior to your visit, [facility] shared information with you about the [...] 180 Tablet 3 Sodium Sulfate-Mag Sulfate-KCl (Sutab) [phone] MG TABS Take by mouth. AMLODIPINE BESYLATE [...] declined Stress: No Stress Concern Present (03/27/2023) [place] [employer] - Occupational Stress Questionnaire Feeling of Stress : Not at all Social Connections: Moderately Integrated (03/27/2023) Social Connection and Isolation Panel [NHANES] Frequency of Communication with Friends and Family: More than three times a week Frequency of Social Gatherings with Friends and Family: Twice a week Attends Hinduism Services: Never Active Member of Clubs or Organizations: Yes Attends Club or Organization Meetings: More than 4 times per year Marital Status: Intimate Partner Violence: Not At Risk (03/27/2023) Humiliation, Afraid, Rape, and Kick questionnaire Fear of Current or Ex-Partner: No Emotionally Abused: No Physically Abused: No Sexually Abused: No No family history on file. documented in this [id number] Hospital Discharge instructions Patient Education 01/23/2024 14:28:31 [...] Follow these instructions at home: Medicines Take kfah-wky-jgderzb and prescription medicines only as told by [...] provider. Document Revised: 09/22/2021 Document Reviewed: 09/22/2021 [employer] Patient Education 2022 SeniorLiving.Net. Follow Up Care 01/24/2023 10:37:20 With:TIANA GARCIA, CATHIE Ruano, URL Address: [address] [address] [phone] When: only if needed [facility] 07-16-2024 NotePatient Education Urology Erectile Dysfunction Erectile [...] these instructions at home: Medicines ? Take jpmj-awv-ytztnpg and prescription medicines only as told by [...] nicotine or tobacco. 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 Last televisit- 08/2020- He had to ER on 05/22/20 when he had pain with a blood clot- needing to stop his coumadin for a short period of time. He felt like he has been in sinus rhythm on his self checks. He was on Fnoutjmbop603 mg BID and Lopressor 100 mg BID. Since patient last saw me, he had TURP done- no further hematuria or urgency. PSA has been stable. Colonoscopy was normal per patient. No melena etc. ALLERGIES: Allergies Allergen Reactions Other (Review Comments!) MEDICATIONS: Current Outpatient Medications Medication Sig Dispense Refill Sodium Sulfate-Mag Sulfate-KCl (Sutab) [phone] MG TABS Take by mouth. AMLODIPINE BESYLATE [...] refused Stress: No Stress Concern Present (03/27/2023) [place] [employer] - Occupational Stress Questionnaire Feeling of Stress : Not at all Social Connections: Moderately Integrated (03/27/2023) Social Connection and Isolation Panel [NHANES] Frequency of Communication with Friends and Family: More than three times a week Frequency of Social Gatherings with Friends and Family: Twice a week Attends Hinduism Services: Never Active Member of Clubs or [...] Assessment/Plan: Persistent atrial fibrillation (HCC) (Primary Diagnosis) [381153] Anticoagulated [919345] JAVED on CPAP [640893] Patient doing well overall as far as [...] Electrophysiology 03/29/23 4:52 PM documented in this [id number] Telephone encounter Note* Telephone Encounter - Crystal Putnam RN - 02/17/2023 9:17 AM EDT LVM for pt that new generic Rx (Toprol XL) was sent over to [facility]. [id number] Miscellaneous Notes* Telephone Encounter - Crystal Putnam RN - 02/17/2023 9:17 AM EDT LVM for pt that new generic Rx (Toprol XL) was sent over to [facility]. * Telephone Encounter - Dexter Heather Norberto - 02/16/2023 9:38 AM EDT [facility] is calling wanting to know if they can dispense Metoprolol SUCC- ER 100 mg instead ofthe Toprol XL 100 mg, pt's insurance will only cover the generic brand. Please contact [phone] use Re:[phone]. Thank you documented in this [id number] Telephone encounter Note* Telephone Encounter - Aundrea Davis PharmD - 02/16/2023 3:00 PM EDT Patient called stating the original prescription that was sent had a KP for Toprol XL 100mg which is not covered. Please send over generic Metoprolol ER Succinate 100mg. Thank you! [id number] Miscellaneous Notes* Telephone Encounter - Aundrea Davis PharmD - 02/16/2023 3:00 PM EDT Patient called stating the original prescription that was sent had a KP for Toprol XL 100mg which is not covered. Please send over generic Metoprolol ER Succinate 100mg. Thank you! documented in this [id number] Telephone encounter Note* Telephone Encounter - Heather Renteria - 02/16/2023 9:38 AM EDT [facility] is calling wanting to know if they can dispense Metoprolol SUCC- ER 100 mg instead ofthe Toprol XL 100 mg, pt's insurance will only cover the generic brand. Please contact [phone] use Re:[phone]. Thank you [employer] Work Phone: 1(757) 360-327407-18-2023 Hospital Discharge instructions Patient Education 01/24/2023 10:34:12 [...] Follow these instructions at home: Medicines Take qtbo-pgg-wbsdczv and prescription medicines only as told by [...] provider. Document Revised: 09/22/2021 Document Reviewed: 09/22/2021 [employer] Patient Education 2022 SeniorLiving.Net. Follow Up Care 10/27/2021 12:15:55 With:TIANA GARCIA, CATHIE Ruano, URL Address: [address] [place] [address] When:Within 1 Year(s) [facility] 04-04-2023 Evaluation note* Encounter Date Diagnosis [...] I48.91) stable. 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 [facility] Other 03-30-2023 Evaluation + Plan noteExtracted from: Title:KRISSY post op Author:Daljit Gooden MD Date:10/06/22 Plan Transfer/Discharge: Transfer/Discharge Discharge when meets criteria ( To home ). Extracted from: Title:KRISSY GA Author:Daljit Gooden MD Date:10/06/22 Plan [place] [employer] Anesthesiologists (ASA) physical status classification: Class III. Anesthetic Preoperative Plan: Anesthesia General. Future Appointments Appointment Date:01/25/2023 10:00:00 AM Scheduled Provider:Erica Chua MD Location:[facility] Appointment Type:URO Office Visit [facility]03-30-2023 Hospital Discharge instructions Patient Education 10/06/2022 10:00:07 Colonoscopy, Care After Surgery Salam (CUSTOM) Colonoscopy Care After Surgery Please read the instructions outlined below and refer to this sheet in the next few weeks. These discharge instructions provide you with general information on [facility] Your doctor may also give you [...] 03/22/2005 Document Revised: 10/11/2018 Document Reviewed: 10/11/2018 [employer] Patient Education 2020 SeniorLiving.Net. 10/06/2022 10:00:07 Hemorrhoids, Ncke-sb-Dvdf Hemorrhoids Hemorrhoids are swollen veins that may [...] 3 times a day. General instructions Take zgeh-lgo-qrslcjc and prescription medicines only as told by [...] 04/04/2009 Document Revised: 07/04/2019 Document Reviewed: 11/15/2018 [employer] Patient Education 2020 SeniorLiving.Net. Follow Up Care 07/29/2022 15:02:48 With:Oxana IBARRA Address: [address] [place] [address] Business (1) When: Unknown Comments:Call for any problems. [facility]01-20-2023 Hospital Discharge instructions Patient Education 07/29/2022 [...] including vitamins, herbs, eye drops, creams, and zexv-fwd-upcjllr medicines. Any problems you or family members [...] 06/23/2001 Document Revised: 04/18/2018 Document Reviewed: 09/06/2016 [employer] Patient Education 2019 SeniorLiving.Net. Follow Up Care 07/05/2022 09:47:30 With:Elicia Mcmillan CNP Address: When:1 to 2 weeks Comments:Following colonoscopy. [facility] 01-17-2023 Evaluation note* Encounter Date [...] way. Continue follow-up with cardiology as scheduled. [facility] Other 01-11-2023 NoteCONSULTATION CONSULTATION DATE: 07/20/2022 HISTORY [...] in three months' time unless otherwise indicated.[facility] 07-20-2022 NoteCONSULTATION PROCEDURE DATE: 07/20/2022 PREOPERATIVE [...] fan-like pattern. Patient tolerated the procedure well.[facility] [id number] NotePAIN MANAGEMENT CONSULTATION CONSULTATION DATE: 05/26/2022 HISTORY [...] post procedure, and he wishes to proceed.[facility] [id number] NoteCONSULTATION CONSULTATION DATE: 04/07/2022 HISTORY OF PRESENT [...] which is aggravated by prolonged standing and churn tender hours. He states that such activity has [...] for re-evaluation. Patient agrees to this plan.[facility] [id number] NoteCONSULTATION CONSULTATION DATE: 03/03/2022 This is a 00-qbrb-vxihlvias returning to clinic for a 3-month follow-up. [...] be followed up in the office following.[facility] [id number] Telephone encounter Note* Telephone Encounter - Erica Beckett - 03/01/2022 11:40 AM EDT Patient has not been seen by this specialist in more than 1 year. Please contact patient to schedule office visit. Thank you [id number] Miscellaneous Notes* Telephone Encounter - Erica Beckett - 03/01/2022 11:40 AM EDT Patient has not been seen by this specialist in more than 1 year. Please contact patient to schedule office visit. Thank you documented in this [id number] Telephone encounter Note* Telephone Encounter - Irina Nguyen - 01/18/2022 7:23 AM EDT Last visit with Cardiology (Emperatriz Carnes) on 09/03/2020 Requested Prescriptions Pending Prescriptions Disp Refills metoprolol (TOPROL-XL) 100 mg XL tablet [Pharmacy Med Name: METOPROLOL SUCCINATE ER TABS 100MG] 90 Tablet 3 Sig: TAKE 1 TABLET DAILY No PCP on file No PCP on file [id number] Miscellaneous Notes* Telephone Encounter - Irina Nguyen - 01/18/2022 7:23 AM EDT Last visit with Cardiology (Emperatriz Carnes) on 09/03/2020 Requested Prescriptions Pending Prescriptions Disp Refills metoprolol (TOPROL-XL) 100 mg XL tablet [Pharmacy Med Name: METOPROLOL SUCCINATE ER TABS 100MG] 90 Tablet 3 Sig: TAKE 1 TABLET DAILY No PCP on file No PCP on file documented in this [id number] Telephone encounter Note* Telephone Encounter - Anirudh Gonzalez RPh - 11/29/2021 3:11 PM EDT Pt called back, will talk to his ACC to get refill [facility] Work Phone: [phone]) 856-850005-23-2022 Miscellaneous Notes* Telephone Encounter - Anirudh Gonzalez RPh - 11/29/2021 3:11 PM EDT Pt called back, will talk to his ACC to get refill * Telephone Encounter - Asia Laguna RN - 11/29/2021 2:52 PM EDT Left message for pt to return call to [facility] at [phone] 2nd attempt * Telephone Encounter - Cathie Whitley RN - 11/26/2021 2:46 PM EDT Left message for patient to please call back. 1st attempt * Telephone Encounter - Anirudh Gonzalez RPh - 11/25/2021 9:[address] [facility] Staff, Please contact pt re the following issue. Per 09/03/21 note pt goes to [facility] , they should refill, will deny Thanks! * Telephone Encounter - Tamiko Rodriguez PharmD - 11/24/2021 4:09 PM EDT Requested Prescriptions Pending Prescriptions Disp Refills warfarin (COUMADIN) 5 MG tablet 90 Tablet 0 Sig: Take 1 Tablet by mouth daily. No PCP on file No PCP on file documented in this [id number] Telephone encounter Note* Telephone Encounter - Asia Laguna RN - 11/29/2021 2:52 PM EDT Left message for pt to return call to [facility] at [phone] 2nd attempt [facility] Work Phone: [phone]) 382-972205-20-2022 Telephone encounter Note* Telephone Encounter - Cathie Whitley RN - 11/26/2021 2:46 PM EDT Left message for patient to please call back. 1st attempt [id number] Telephone encounter Note* Telephone Encounter - Anirudh Gonzalez RPh - 11/25/2021 9:[address] [facility] Staff, Please contact pt re the following issue. Per 09/03/21 note pt goes to [facility] , they should refill, will deny Thanks! [id number] Telephone encounter Note* Telephone Encounter - Tamiko Rodriguez PharmD - 11/24/2021 4:09 PM EDT Requested Prescriptions Pending Prescriptions Disp Refills warfarin (COUMADIN) 5 MG tablet 90 Tablet 0 Sig: Take 1 Tablet by mouth daily. No PCP on file No PCP on file [facility] Work Phone: 1(364) 887-133605-18-2022 Miscellaneous Notes* Telephone Encounter - Tamiko Rodriguez [...] [Pharmacy Med Name: POTASSIUM CHLORIDE ER (DISP) [id number]] 180 Tablet 3 Sig: TAKE 1 TABLET [...] Jr., MD Location:[facility] Appointment Type:URO Office Visit Diagnostic Tests Pending * PSA Total 10/27/21 [facility] evaluation + Plan note Future Appointments Appointment Date:10/06/2022 09:00:00 AM Scheduled Provider: Location:[facility] Appointment Type:Surgery FT Appointment Date:11/01/2022 09:45:00 AM Scheduled Provider:Min Tristan Jr., MD Location:[facility] Appointment Type:URO Office Visit [facility] Evaluation + Plan note Future Appointments Appointment Date:01/30/2024 10:00:00 AM Scheduled Provider:CATHIE HERNANDEZ PA-C Location:[facility] Appointment Type:URO Office Visit [facility] evaluation + Plan note Future Appointments Appointment Date:01/30/2024 10:00:00 AM Scheduled Provider:CATHIE HERNANDEZ PA-C Location:[facility] Appointment Type:URO Office Visit Diagnostic Tests Pending * [facility] ([facility]oxysmal atrial fibrillation) [...] present [facility] Other Evaluation note* Diagnosis Persistent atrial fibrillation [...] in this [facility] information [facility] Work Phone: Evaluation note* Diagnosis PAF [...] note* Diagnosis Onset Date Resolution Status Bronchitis [facility] Work Phone: Evaluation note* Diagnosis Onset Date Resolution Status Admit Date A-fib acute February 12 9:16am Bilateral primary osteoarthr itis of hip acute February 12, 2025 9:16am Bilateral primary osteoarthr itis of knee acute February 12, 2025 9:16am Lumbar pain acute February 12 9:16am Medicare annual wellness vis it, subsequent acute February 12, 2025 9:16am JAVED on CPAP acute February 12 9:16am [facility] Work Phone: History general Narrative - Reported* [...] Hospitalization History No Hospitalization histo ry information [facility] Other Hospital course Narrative No data available for this section [facility] Hospital Discharge instructions No data available for this section [facility] Hospital Discharge instructionsAmbulatory Orders* Referral to Orthopedic Surgery Location: None Selected [facility] Work Phone: Progress note No data available for this section [facility] Summary Purpose Family History Relationship [...] follow up, bronchitis May 29, 2024 9:27am Chief Complaint Admit Date Amb Documentation November 28, 2024 9:32a m wellness February 12, 2025 9:1 6am Reason for Visit Admit Date A-fib February 12, 2025 9:1 6am Bilateral primary osteoarthritis of hip February 12, 2025 9:16am Bilateral primary osteoarthritis of knee February 12, 2025 9:16am Lumbar pain February 12, 2025 9:1 6am Medicare annual wellness visit, subseque nt February 12, 2025 9:16am JAVED on CPAP February 12, 2025 9:1 6am Chief Complaint Admit Date wellness February 12, 2025 9:[address] EVELYN LIZARRAGA TABITHA HIP PAIN WX March 03, 2025 10:28am Reason for Visit Admit Date A-fib February 12, 2025 9:1 6am Bilateral primary osteoarthritis of hip February 12, 2025 9:16am Bilateral primary osteoarthritis of knee February 12, 2025 9:16am Lumbar pain February 12, 2025 9:1 6am Medicare annual wellness visit, subseque nt February 12, 2025 9:16am JAVED on CPAP February 12, 2025 9:1 6am Degenerative joint disease (DJD) of hip March 03, 2025 10:28am Additional Source Comments (unrecognized sect ion and content) No Status Records FoundNo Status Records FoundNo Status Records FoundNo Status Records FoundNo Status Records FoundNo Status Records FoundNo Status Records FoundNo Status Records Found INFORMATION SOURCE (unrecogn ized section and content) DATE CREATED AUTHOR 01/02/2018 [facility] DATE CREATED AUTHOR AUTHOR'S ORGANIZ ATION 04/24/2018 [employer] DATE CREATED AUTHOR AUTHOR'S ORGANIZ ATION 05/06/2018 [facility] DATE CREATED AUTHOR AUTHOR'S ORGANIZ ATION 12/16/2022 [facility] DATE CREATED AUTHOR AUTHOR'S ORGANIZ ATION 01/25/2024 [facility] DATE CREATED AUTHOR AUTHOR'S ORGANIZ ATION 04/15/2024 [facility] DATE CREATED AUTHOR AUTHOR'S ORGANIZ ATION 05/28/2024 [facility] DATE CREATED AUTHOR AUTHOR'S ORGANIZ ATION 02/08/2025 [facility] Reason for Visit (unrecogniz ed section and content) Reason Comments Refill Reason Onset Date Comments Refill 11/24/2021 Reason Onset Date Comments Refill 02/14/2023 Reason Onset Date Comments Question about medication 02/16/2023 Reason Onset Date Comments Refill 02/16/2023 Reason Comments Atrial fibrillation/flutter Reason Comments New patient, to establish relationship Reason Onset Date Comments Refill 11/06/2024 Care Teams (unrecognized sec tion and content) 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 Start Date End Date Emperatriz Carnes DO [address] [place] [address] Physician Electrophysiology 04/14/20 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 Start Date End Date Emperatriz Carnes DO [address] [place] [address] Physician Electrophysiology 04/14/20 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 Start Date End Date Emperatriz Carnes DO [address] [place] [address] Physician Electrophysiology 04/14/20 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 Start Date End Date RodolfoSa betsyDO quique [address] [place] [address] [place] [address] Physician Electrophysiology 04/14/20 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 Start Date End Date Emperatriz Carnes DO [address] [place] [address] [place] [address] Physician Electrophysiology 04/14/20 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 Start Date End Date Emperatriz Carnes, DO [address] [place] [address] Physician Electrophysiology 04/14/20 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 Start Date End Date Emperatriz Carnes, DO [address] [place] [address] Physician Electrophysiology 04/14/20 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 Start Date End Date Emperatriz Carnes, DO [address] [place] [address] Physician Electrophysiology 04/14/20 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 Start Date End Date Emperatriz Carnes, DO [address] [place] [id number] Physician Electrophysiology 04/14/20 Team Status: Active Member [...] October 19, 2023 End: October 19, 2023 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 Start Date End Date Emperatriz Carnes, DO [address] [place] [address] Physician Electrophysiology 04/14/20 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 Start Date End Date Emperatriz Carnes, DO [address] [place] [address] Physician Electrophysiology 04/14/20 Team Status: Active Member [...] May 29, 2024 End: May 29, 2024 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 Start Date End Date Emperatriz Carnes DO [address] [place] [id number] Physician Electrophysiology 04/14/20 Prasanth Perez MD [address] [place] [address] [place] [address] Physician Cardiac Electrophysiology 05/11/24 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 Start Date End Date Emperatriz Carnes DO [address] [place] [address] Physician Electrophysiology 04/14/20 Prasanth Preez MD [address] [place] [address] Physician Cardiac Electrophysiology 05/11/24 Team Status: Active Member Role Status Dates Donald Lizarraga MD Primary Care Provider Active Start: November 28, 2024 Merlyn Casillas CMA Attending Provider Active Start: November 28, 2024 Team Status: Active Member Role Status Dates Donald Lizarraga MD Primary Care Provider Active Start: December 16, 2024 Blessing Granda MD Attending Provider Active Start: December 16, 2024 Team Status: Inactive Member Role Status Dates Donald Lizarraga MD Primary Care Provider Active Start: February 12, 2025 End: February 12, 2025 Donald Lizarraga MD Attending Provider Active St art: February 12, 2025 End: February 12, 2025 Team Status: Inactive Member Role Status Dates Donald Lizarraga MD Primary Care Provider Active Start: March 03, 2025 End: March 03, 2025 Peter Auguste DO Attending Provider Active S tart: March 03, 2025 End: March 03, 2025 Goals (unrecognized section and content) Goals may [...] BE BASED ON THE PRIMARY CLINICAL RECORDS. [employer] provides no warranty or guarantee of the accuracy or completeness of information in this document.
--- NOTE | 2025-03-20 09:54 | PM.CN ---
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 has historically failed to benefit from > 6 weeks of PT, heat, ice, tylenol, and cannot take NSAIDs on coumadin. pt noting >50% improvement from right hip inection for 2.5 months, less than 1 month improvement from right knee dulorane injection. Pain today 10/10 stabbing/aching increasing with standing and walking. cc:: CC: Trista Lyman NP Review of Systems ROS Musculoskeletal Reports: extremity pain and joint pain PFSH PFS Medical History Atrial fibrillation ?I48.91 - Unspecified atrial fibrillation (ICD-10) Low back pain ?M54.50 - Low back pain, unspecified (ICD-10) Osteoarthritis ?M19.90 - Unspecified osteoarthritis, unspecified site (ICD-10) Colon cancer ?C18.9 - Malignant neoplasm of colon, unspecified (ICD-10) Obesity ?E66.9 - Obesity, unspecified (ICD-10) Kidney stone ?N20.0 - Calculus of kidney (ICD-10) Enlarged prostate ?N40.0 - Benign prostatic hyperplasia without lower urinary tract symptoms (ICD-10) Pulmonary embolism ?I26.99 - Other pulmonary embolism without acute cor pulmonale (ICD-10) Sleep apnea ?G47.30 - Sleep apnea, unspecified (ICD-10) High cholesterol ?E78.00 - Pure hypercholesterolemia, unspecified (ICD-10) Hypertension ?I10 - Essential (primary) hypertension (ICD-10) Surgical History S/P TURP ?Z90.79 - Acquired absence of other genital organ(s) (ICD-10) History of colon resection ?Z90.49 - Acquired absence of other specified parts of digestive tract (ICD-10) Social History Little interest or pleasure in doing things: not at all Feeling down, depressed, or hopeless: not at all Meds Home Medications and Allergies Home Medications ?Medication ?Instructions ?Recorded ?Confirmed ?Type atorvastatin 20 mg tablet 20 mg PO QDAY 12/22/22 12/16/24 History calcium carbonate 300 mg PO DAILY 12/22/22 12/16/24 History flecainide 100 mg tablet 100 mg PO Q12H 12/22/22 12/16/24 History hydrochlorothiazide 25 mg tablet 25 mg PO QDAY 12/22/22 12/16/24 History lisinopril 40 mg tablet 40 mg PO QDAY 12/22/22 12/16/24 History loratadine 10 mg tablet 10 mg PO DAILY 12/22/22 12/16/24 History metoprolol succinate 100 mg 100 mg PO QDAY 12/22/22 12/16/24 History tablet,extended release 24 hr multivitamin 1 tab PO DAILY 12/22/22 12/16/24 History olopatadine 0.1 % eye drops drp ophthalmic (eye) BID 12/22/22 History potassium chloride 20 mEq 20 meq PO BID 12/22/22 12/16/24 History tablet,extended release(part/cryst) (Klor-Con M) warfarin 5 mg tablet 5 mg PO QDAY 12/22/22 12/16/24 History gabapentin 300 mg capsule 900 mg PO BID 01/17/24 12/16/24 History baclofen 10 mg tablet 10 mg PO TID PRN pain 06/25/24 12/16/24 History hydrocodone 5 mg-acetaminophen 325 1 tab PO BID PRN pain #14 tabs 12/04/24 12/16/24 Rx mg tablet Allergies Allergy/AdvReac Type Severity Reaction Status Date / Time No Known Drug Allergies Allergy Verified 12/16/24 08:04 Exam Constitutional Documenting provider has reviewed patient's vital signs: yes Common normals: no apparent distress, oriented x3, healthy appearing, alert and well nourished General appearance: cooperative HENMT Common normals: normocephalic, hearing grossly normal bilaterally and moist oral mucous membranes Head and scalp: normocephalic Eye Common normals: PERRL Pupil: PERRL Neck & C-Spine Common normals: full ROM General: normal visual inspection Chest Common normals: inspection of chest normal Respiratory Common normals: normal respiratory effort, no retractions and no use of accessory muscles Extremity Right lower extremity: hip joint and knee joint Other: negative internal/external rotation of right hip moderate pain and palpation of right GTB moderate edema and crepitus to right knee, no instability noted. increased pain with medial and lateral stress testing Neuro Common normals: oriented x3 Sensorium/orientation: alert Psych Common normals: mental status grossly normal, thought process normal, cooperative, affect normal, speech normal and activity/motor behavior normal Speech: normal speech Thought process: normal thought process Results Additional Findings Additional findings: If on a controlled substance or opioids, I have checked an [place] report on this patient and there are no aberrancies noted in the prescribing history.??If on a controlled substance or opioid a drug screen was completed and reviewed within the last year, and if there has not been a drug screen completed we ordered one today to monitor higher risk, state monitored pain medication use. As part of providing excellent, safe, comprehensive care, the following was completed at our patient's visit: 1. A medication reconciliation and review to ensure accurate knowledge of current/active medications, including asking our patients to inform us about any [id number] medications or herbal remedies/nutritional supplements/alternative remedies. 2. A review to specifically ensure our patients have had annual screening for screening for depression, screening for tobacco use, and screening for unhealthy alcohol use. For concerning screenings had a discussion with the patient, provided patient education, and recommended follow-up with primary care provider when appropriate. If patient noted with a risk of falling, they received education on strength, gait, and balance training to prevent future risk of falling. Portions of this note may have been carried over from the previous visit and updated as appropriate. Please note this office utilizes paper charting in addition to the electronic medical record. A list of current medications, vitals, and PMH is available there as the clinical staff outside of myself do not have access to [employer] charting during the clinic day operations. As part of providing quality comprehensive care the current medications, vitals, and PMH were reviewed in the paper chart. Assessment and Plan Assessment and Plan (1) Osteoarthritis of right knee: (2) Greater trochanteric bursitis: (3) Osteoarthritis of right hip: Assessment and Plan: notable improvement of pain on exam Qualifiers: Osteoarthritis type: primary Qualified Code(s): M16.11 - Unilateral primary osteoarthritis, right hip Plan update right knee xray, consider genicular nerve blocks/RFA as pt has failed steroidal and MARTINEZ gel injection. pt reports he spoke with Dr Auguste regarding hips and right knee and he is nonsurgical, however we do not have an available consult note to review right GTB injection in office continue baclofen 10mg TID PRN pain/spasms continue voltaren gel continue gabapentin 900mg BID f/u in office for injection
== END 2025-03-20 09:20 | disposition home or self-care (01) ==
LOC: PM 09:19
PROVIDERS: PCP Family Medicine; Visit Provider Nurse Practitioner
DX: M17.11 Unilateral primary osteoarthritis, right knee (principal); M70.60 Trochanteric bursitis, unspecified hip; M16.11 Unilateral primary osteoarthritis, right hip
CPT/HCPCS: 73564; G0463

== ENCOUNTER 2025-03-20 10:12 | Outpatient (OUT) | payer MEDICARE, SELFPAY ==
--- NOTE | 2025-03-20 10:17 | XR_ITS ---
[facility] [place] [id number] Patient Name: ROSEY CHURCH MRN: [id number] date: 1955 Sex: M Assigned Patient Location: [facility] Current Patient Location: [facility] Accession/Order Number: [id number] Exam Date: 03/20/2025 10:22 Report Date: 03/20/2025 10:41 At the request of: DONTE BENITEZ NP Procedure: XR knee RT 4V RIGHT KNEE - 4 views COMPARISON: 08/05/2019 CLINICAL DATA: Right knee pain and difficulty with extension. No recent injury. AP, lateral and 2 oblique views were obtained. There is osteopenia. No acute fractures or dislocation are noted. There is mild narrowing at the medial tibiofemoral joint compartment. Small marginal spurs are again seen. There is also spurring at the articular margin of the anterior tibial plateau and supracondylar region of the femur on the lateral view. There is no knee effusion or focal soft tissue swelling. XR/XR knee RT 4V IMPRESSION: OSTEOPENIA AND DEGENERATIVE CHANGES, DESCRIBED. Impression dictated by: Lupis Bryan M.D. 03/20/2025 10:41 AM Dictation Location: [place] [address] Electronically authenticated by: [id number] Y Date: 03/20/2025 10:41
--- OUTSIDE RECORDS SUMMARY | 2025-03-20 10:34 | XMS_ITS | CCD ---
Author Organization [facility] Care Team Providers Care Computer Education Teacher Name Role Phone PHYSICIAN, DEFAULT Unavailable Unavailable [...] Primary Care Unavailable CUEVAS .MARIELA Consulting Unavailable FAWWAD, WOMACK H Admitting Unavailable [...] Admitting Unavailable HALKER ., JEET Attending Unavailable CAVENDISH, DR UNA Sofia Consulting Unavailable LIZARRAGA, DR DONALD Ruano Primary Care Unavailable HALKER ., JEET Consulting Unavailable LIZARRAGA, DR DONALD Ruano Primary Care Unavailable STEPJAQUELINE, DR HANEY Consulting Unavailable STEPANIC, DR HANEY Admitting Unavailable STEPANIC, DR HANEY Attending Unavailable ZIEBER, DR RUPERT Bocsh Consulting Unavailable LIZARRAGA, DR DONALD Ruano Primary [...] Provider Donald Lizarraga MD Primary Care Provider [phone] Peter Auguste DO Attending Provider [phone] Allergies Allergy Classification Reported Allergen(s) Allergy Type Date of Onset Reaction(s) Facility (17 sources) Other (Review Comments!); 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: [OTHER (REVIEW COMMENTS!)] Propensity to adverse reactions to drug 12-29-19 [facility] Decongestant Drug allergy 10-18-19 24 Unknown, [facility] (10 sources) DECONGESTANTS Propensity to adverse reactions 05-03-20 13 Unknown, [facility] Comment on above: Onset Date: 05/03/20 13 (3 sources) Allergies Reconciled Propensity to adverse reactions Unknown [employer] Other (3 sources) patient allergy list reviewed by nurse or physicia Propensity to adverse reactions 11-23-19 Comment:Done [employer] Other (1 source) No Known Medication Allergies; [...] follow instructions per packaging and physician's handout, [facility]/pharmacy #[id number], 183.8, cm, 07/29/22 14:15:00 EST, Height/Length Dosing, [...] mouth. 01/24/2023 Active Sodium Sulfate-Mag Sulfate-KCl (Sutab) 9683-258-887 MG TABS (6 sources) Start: 07-29-2022 Sodium Sulfate -Mag Sulfate-KCl (Sutab) 4319-953-619 MG TABS Take by mouth. 07/29/2022 Active Start: 07-29-2022 Sodium Sulfate -Mag Sulfate-KCl (Sutab) 9307-480-436 MG TABS Take by mouth. 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; 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: [GROUP HOME CURRNT USE 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] Onset: 12-07-2022 Episodic Other [...] aftercare (20 sources) Drug therapy finding; 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: [snf (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] Onset: 09-03-2020 Episodic [...] and Corynebacterium diphtheriae antigens (medicinal product); 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: [Dlwlseibnb-dqgkrhd-o ertussis, combined [DTP] [DtaP]] Onset: 02-13-2014 Viral infection (1 source) COVID-19 Results Test Name Value Interpretation Reference Range Facility INR in Platelet poor plasma by Coagulation assayon 12-16-2024 INR Coag (PPP) [Relative time] 2.24 {INR} [facility] Comment on above: DESIRED INR:2.0-3.0 CONDITIONS NOT LISTED BELOW2.5-3.5 FOR PROSTHETIC HEART VALVE REPLACEMENT2.5-3.5 RECURRENT THROMBOSIS Prothrombin time (PT)on PT Coag (PPP) [Time] 21.9 s High 9.0-11.6 [facility] X-ray reportOrdered By: Luz Bryan on 05-26-2024 Study report [facility] [place] [address] XRay Report Signed Patient: Evangelist Ybarra MR#: [id number] : 1955 Acct:[id number] Age/Sex: 68 / M ADM Date: 4 Loc: [facility] Room: Type: [facility] Attending Dr: Mariela Mosley APRN Copies to: [...] MD 05/26/24 1022 Signed By: 05/26/24 1023 [facility] Work Phone: XR chest 2V*on 05-26-2024 XR chest 2V* [facility] [place] [address] XRay Report Signed Patient: Evangelist Ybarra MR#: [id number] : 1955 Acct:[id number] Age/Sex: 68 / M ADM Date: 05/26/24 Loc: [facility]DUC Room: Type: [facility] Attending Dr: Mariela Mosley TOWER WATCHMAN Copies to: Mariela Mosley APRN Ordering Provider: [...] 1022 Signed By: 05/26/24 1023 Normal [facility] Influenza virus A and B and SARS-CoV-2 (COVID-19) RNA panel - Respiratory system specon 05-08-2024 Influenza virus A and B RNA and SARS-CoV-2 (COVID-19) N gene panel ANNIE+probe (Resp) Influenza virus A and B and SARS-CoV-2 (COVID-19) RNA panel - Respiratory system spec [facility] Laboratory - Microbiology an d Antimicrobial susceptibilityon 05-08-2024 SARS-CoV-2 (COVID-19) RNA ANNIE+probe Ql (Unsp spec) Negative [facility] No Panel Informationon 05-08 POC Influenza B (ANNIE) Negative [facility] INR in Platelet poor plasma by Coagulation assayon 04-29-2024 INR Coag (PPP) [Relative time] 2.42 {INR} [facility] Comment on above: DESIRED INR:2.0-3.0 CONDITIONS NOT LISTED BELOW2.5-3.5 FOR PROSTHETIC HEART VALVE REPLACEMENT2.5-3.5 RECURRENT THROMBOSIS INR Coag (PPP) [Relative time] INR in Platelet poor plasma by Coagulation assay [facility] Comment on above: DESIRED INR:2.0-3.0 CONDITIONS NOT LISTED BELOW2.5-3.5 FOR PROSTHETIC HEART VALVE REPLACEMENT2.5-3.5 RECURRENT THROMBOSIS Prothrombin time (PT)on 04-10 PT Coag (PPP) [Time] 23.5 s High 9.0-11.6 [facility] PT Coag (PPP) [Time] Prothrombin time (PT) High 9.0-11.6 [facility] Progress Noteson 04-15-2024 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 AMLODIPINE BESYLATE [...] declined Stress: No Stress Concern Present (03/27/2023) [place] [facility] [employer] - Occupational Stress Questionnaire Feeling of Stress : Not at all Social Connections: Moderately Integrated (03/27/2023) Social Connection and Isolation Panel [NHANES] Frequency of Communicatio (more content not included)... Normal The [facility] Ambulatory Visit Summaryon 0 01-23-2024 Ambulatory [...] Only if needed Where: [address] [place] [phone] Medications What How Much When Instructions Unchanged [...] 01-23-2024 Provider Letter Provider Letter DONALD LIZARRAGA, [address] [place] [id number] Re: EVANGELIST YBARRA Date of : [address] ELHAM JACKSON, DONALD YBARRAEVANGELIST was evaluated at [facility] 01/30/2024 10:00:00 As this patient has been stable, they will be released back to your care. We request that you continue to check PSA annually for prostate cancer screening Should the patient develop new symptoms, worsening condition, or abnormal imaging/labs in the future, do not hesitate to refer them back. Thanks! Provider Signature: Cathie Hernandez PA-C Physician Bible Reader [facility] [address] [place] [address] Marvin Aquino [facility] Urology Office/Clinic Noteon 01-23-2024 Urology Office/Clinic Note Urology Office/Clinic Note Chief Complaint 1 year follow up with PSA HPI Staff 68 year old patient presents today for a 1 year follow up with PSA. No recent PSA on [facility], TB, [facility], or [facility]. 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 Not a [...] GARCIA, CATHIE Ruano, URL Only if needed [address] [place] [address] [phone] Additional Instructions: Patient Education Erectile Dysfunction Documentation [...] (Urine sed) [#/Area] 0-2 /HPF Normal 0-2/HPF [facility] UA Auto SS Glucose Test strip (U) [Mass/Vol] Negative (01/24/23 10:19 AM) Normal Negative [facility] UA Auto SS Hemoglobin Ql (U) Negative (01/24/23 10:19 AM) Normal Negative [facility] UA Auto SS Ketones (U) [Mass/Vol] Negative (01/24/23 10:19 AM) Normal Negative [facility] UA Auto SS [place].plasma/Lith ium.RBC (Bld) [Mass ratio] 0-3 /HPF Normal 0-3/HPF [facility] UA Auto SS Nitrite Ql (U) Negative (01/24/23 10:19 AM) Normal Negative [facility] UA Auto SS pH (U) 5.0 *NA* (01/24/23 10:19 AM) Invalid Interpretation Code 5.0 - 9.0 [facility] UA Auto SS Protein (U) [Mass/Vol] Negative (01/24/23 10:19 AM) Normal Negative [facility] UA Auto SS Specific gravity (U) [Rel density] >=1.030 *NA* (01/24/23 10:19 AM) Invalid Interpretation Code 1.005 - 1.030 [facility] UA Auto SS UA Spec Desc Random Urine (01/24/23 10:19 AM) Normal [facility] UA Auto SS Urobilinogen Qn (U) [id number] {Anne'U}/dL Normal 0.0 - 1.0 EU/dL [facility] UA Auto SS WBC Auto Ql (U) Negative (01/24/23 10:19 AM) Normal Negative [facility] UA Auto SS WBC LM.HPF (Urine sed) [#/Area] 0-5 /HPF Normal 0-5/HPF [facility] UA Auto SS XR CSPINE MIN 4 [...] SEARS Date: 2022-11-10 09:46 Normal [facility] CBC AUTO DIFFon 2022 BASO # 0.0 103/ul Normal 0.0-0.1 [facility] Comment on above: Performed By: #### C BC #### [facility] [address] [place] [address] Dr. Jason Pearson Basophils/100 WBC (Bld) 0.7 % Normal 0.2-2.0 [facility] Comment on above: Performed By: #### C BC #### [facility] [address] [place] [address] Dr. Jason Pearson EO # 0.2 103/ul Normal 0.0-0.7 [facility] Comment on above: Performed By: #### C BC #### [facility] [address] [place] [address] Dr. Jason Pearson Eosinophils/100 WBC (Bld) 3.7 % Normal 0.9-7.0 [facility] Comment on above: Performed By: #### C BC #### [facility] [address] [place] [address] Dr. Jason Pearson Erythrocyte distribution width (RBC) [Ratio] 14.0 % Normal 11.0-15.0 [facility] Comment on above: Performed By: #### C BC #### [facility] [address] [place] [address] Dr. Jason Pearson Hematocrit (Bld) [Volume fraction] 41.0 % Critically low 42.0-54.0 [facility] Comment on above: Performed By: #### C BC #### [facility] [address] [place] [address] Dr. Jsaon Pearson Hemoglobin (Bld) [Mass/Vol] 13.8 g/dL Critically low 14.0-18.0 [facility] Comment on above: Performed By: #### C BC #### [facility] [address] [place] [address] Dr. Jason Pearson IG # 0.01 10e3/ul Normal 0.00-0.[address] [facility] Comment on above: Performed By: #### C BC #### [facility] [address] [place] [address] Dr. Jason Pearson IG % 0.2 % Normal 0.0-0.5 [facility] Comment on above: Performed By: #### C BC #### [facility] [address] [place] [address] Dr. Jason Pearson LYMPH # 1.3 103/ul Normal 1.2-3.[address] [facility] Comment on above: Performed By: #### C BC #### [facility] [address] [place] [address] Dr. Jason Pearson Lymphocytes/100 WBC (Bld) 22.3 % Normal 20.5-60.0 [facility] Comment on above: Performed By: #### C BC #### [facility] [address] [place] [address] Dr. Jason Pearson MANUAL DIFF REQ NO Normal [facility] Comment on above: Performed By: #### C BC #### [facility] [address] [place] [address] Dr. Jason Pearson MCH (RBC) [Entitic mass] 32.6 pg Normal 25.9-34.0 [facility] Comment on above: Performed By: #### C BC #### [facility] [address] [place] [address] Dr. Jason Pearson MCHC (RBC) [Mass/Vol] 33.7 g/dL Normal 29.9-35.[address] [facility] Comment on above: Performed By: #### C BC #### [facility] [address] [place] [address] Dr. Jason Pearson MCV (RBC) [Entitic vol] 96.9 fL Critically high 80.0-94.0 [facility] Comment on above: Performed By: #### C BC #### [facility] [address] [place] [address] Dr. Jason Pearson MONO # 0.6 103/ul Normal 0.3-0.[address] [facility] Comment on above: Performed By: #### C BC #### [facility] [address] [address] [address] Jason Pearson Monocytes/100 WBC (Bld) 10.5 % Normal 1.7-12.0 [facility] Comment on above: Performed By: #### C BC #### [facility] [address] [address] [address] Jason Pearson NEUT # 3.7 103/ul Normal 1.4-6.5 [facility] Comment on above: Performed By: #### C BC #### [facility] [address] [address] [address] Jason Pearson Neutrophils/100 WBC (Bld) 62.6 % Normal 43.0-75.0 [facility] Comment on above: Performed By: #### C BC #### [facility] [address] [place] [address] Dr. Jason Pearson Platelet mean volume (Bld) [Entitic vol] 9.9 fL Normal 9.5-13.5 [facility] Comment on above: Performed By: #### C BC #### [facility] [address] [address] [address] Jason Pearson PLT 181 103/ul Normal 150-[address] [facility] Comment on above: Performed By: #### C BC #### [facility] [address] [place] [address] Dr. Jason Pearson RBC 4.23 106/ul Critically low 4.70-6.10 [facility] Comment on above: Performed By: #### C BC #### [facility] [address] [address] [address] Jason Pearson WBC 5.9 103/ul Normal 4.0-11.0 [facility] Comment on above: Performed By: #### C BC #### [facility] [address] [place] [address] Dr. Jason Pearson LIPID PROFILEon 2022 CHOL-HDL RATIO NORM SEE BELOW Normal [facility] Comment on above: Result Comment: 3.3 - 4.4 LOW RISK 4.4 - 7.1 AVERAGE RISK 7.1 - 11.0 MODERATE RISK >11.0 HIGH RISK Performed By: #### C MP, LIPID ####[facility] [address] [id number]. Jason Pearson Cholesterol [Mass/Vol] 163 mg/dL Normal <=200 [facility] Comment on above: Performed By: #### C MP, LIPID ####[facility] [address] [place], [place] [address]Cz. Jason Pearson Cholesterol in HDL [Mass/Vol] 49 mg/dL Normal 40-60 [facility] Comment on above: Performed By: #### C MP, LIPID ####[facility] [address] [id number]. Jason Pearson Cholesterol in LDL [Mass/Vol] 74.6 mg/dL Normal [facility] Comment on above: Performed By: #### C MP, LIPID ####[facility] [address] [id number]. Deboraradha Michel Cholesterol.total/C holesterol in HDL [Mass ratio] 3.3 {ratio} Normal [facility] Comment on above: Performed By: #### C MP, LIPID ####[facility] [address] [id number][address] Jason Pearson HDL NORMAL > or = 60 mg/dl - LO W CARDIOVASCULAR RISK <40 mg/dl - HIGH CARDIOVASCULAR RISK Normal [facility] Comment on above: Performed By: #### C MP, LIPID ####[facility] [address] [place] [id number]. Jason Pearson LDL CALC NORMAL SEE BELOW Normal [facility] Comment on above: Result Comment: <100 mg/dl OPTIMAL 100 - 129 mg/dl NEAR OR ABOVE OPTIMAL 130 - 159 mg/dl BORDERLINE HIGH 160 - 189 mg/dl HIGH >190 mg/dl VERY HIGH Performed By: #### C MP, LIPID ####[facility] [address] [id number]. Jason Pearson Triglyceride [Mass/Vol] 197 mg/dL Critically high <=[address] [facility] Comment on above: Performed By: #### C MP, LIPID ####[facility] [address] [place], [place] [address]PaDusty Pearson VLDL CALC 39.4 mg/dL Normal [facility] Comment on above: Performed By: #### C MP, LIPID ####[facility] [address] [place], [place] [address]BcDusty Pearson MICROALBUMIN, RAND URon mALB 1.3 mg/L Normal <=30.0 [facility] Comment on above: Performed By: #### M ALBR ####[facility] [address] [id number] Pearson PROF 14(COMP METB)on 023 Albumin [Mass/Vol] 3.7 g/dL Normal 3.4-5.0 [facility] Comment on above: Performed By: #### C MP, LIPID #### [facility] [address] [address] [address] Jason Pearson Albumin/Globulin [Mass ratio] 1.0 {ratio} Normal [facility] Comment on above: Performed By: #### C MP, LIPID #### [facility] [address] [address] [address] Jason Pearson ALP [Catalytic activity/Vol] 56 U/L Normal 46-116 [facility] Comment on above: Performed By: #### C MP, LIPID #### [facility] [address] [address] [address] Jason Pearson ALT [Catalytic activity/Vol] 43 U/L Normal 16-[address] [facility] Comment on above: Performed By: #### C MP, LIPID #### [facility] [address] [address] [address] Jason Pearson Anion gap [Moles/Vol] 11.2 mmol/L Normal [facility] Comment on above: Performed By: #### C MP, LIPID #### [facility] [address] [address] [address] Jason Pearson AST [Catalytic activity/Vol] 24 U/L Normal 15-37 [facility] Comment on above: Performed By: #### C MP, LIPID #### [facility] [address] [address] [address] Jason Pearson Bilirubin [Mass/Vol] 0.9 mg/dL Normal 0.2-1.0 [facility] Comment on above: Performed By: #### C MP, LIPID #### [facility] [address] [address] [address] Jason Pearson Calcium [Mass/Vol] 9.6 mg/dL Normal 8.5-10.1 [facility] Comment on above: Performed By: #### C MP, LIPID #### [facility] [address] [address] [address] Jason Pearson Chloride [Moles/Vol] 106 mmol/L Normal 98-107 [facility] Comment on above: Performed By: #### C MP, LIPID #### [facility] [address] [place] [address] Dr. Jason Pearson CO2 [Moles/Vol] 30.1 mmol/L Normal 21.0-32.0 [facility] Comment on above: Performed By: #### C MP, LIPID #### [facility] [address] [address] [address] Jason Pearson Creatinine [Mass/Vol] 1.00 mg/dL Normal 0.70-1.30 [facility] Comment on above: Performed By: #### C MP, LIPID #### [facility] [address] [address] [address] Jason Pearson EGFR-AF AUSTRALIAN >60 Normal >=[address] [facility] Comment on above: Performed By: #### C MP, LIPID #### [facility] [address] [address] [address] Jason Pearson EGFR-NON AF AUSTRALIAN >60 Normal >=60 [facility] Comment on above: Performed By: #### C MP, LIPID #### [facility] [address] [address] [address] Jason Pearson Globulin (S) [Mass/Vol] 3.6 g/dL Normal [facility] Comment on above: Performed By: #### C MP, LIPID #### [facility] [address] [address] [address] Jason Pearson Glucose [Mass/Vol] 110 mg/dL Critically high 74-106 [facility] Comment on above: Performed By: #### C MP, LIPID #### [facility] [address] [address] [address] Jason Pearson Potassium [Moles/Vol] 4.3 mmol/L Normal 3.5-5.1 [facility] Comment on above: Performed By: #### C MP, LIPID #### [facility] [address] [address] [address] Jason Pearson Protein [Mass/Vol] 7.3 g/dL Normal 6.4-8.2 [facility] Comment on above: Performed By: #### C MP, LIPID #### [facility] [address] [address] [address] Jason Pearson Sodium [Moles/Vol] 143 mmol/L Normal 136-145 [facility] Comment on above: Performed By: #### C MP, LIPID #### [facility] [address] [address] [address] Jason Pearson Urea nitrogen [Mass/Vol] 15.0 mg/dL Normal 7.0-18.0 [facility] Comment on above: Performed By: #### C MP, LIPID #### [facility] [address] [address] [address] Jason Pearson Urea nitrogen/Creatinine [Mass ratio] 15.0 mg/mg Normal [facility] Comment on above: Performed By: #### C MP, LIPID #### [facility] [address] [address] [address] Jason Pearson PROTIMEon 06-28-2022 INR Coag (PPP) [Relative time] 1.11 {INR} Normal [facility] Comment on above: Performed By: #### P T ####[facility] [address] [address]Dr. Jason Pearson INR GUIDELINES SEE BELOW Normal [facility] Comment on above: Result Comment: KOFI RED INR: 2.0 - 3.0 CONDITIONS NOT LISTED BELOW 2.5 - 3.5 FOR PROSTHETIC HEART VALVE REPLACEMENT 2.5 - 3.5 RECURRENT THROMBOSIS Performed By: #### P T ####[facility] [address] [address]Dr. Jason Pearson PT Coag (PPP) [Time] 11.9 s Critically high 9.0-11.6 [facility] Comment on above: Performed By: #### P T ####[facility] [address] [address]Dr. Jason Pearson PROTIMEon 03-22-2022 INR Coag (PPP) [Relative time] 1.32 {INR} Normal [facility] Comment on above: Performed By: #### P T #### [facility] [address] [place] [address] Dr. Jason Pearson INR GUIDELINES SEE BELOW Normal [facility] Comment on above: Result Comment: KOFI RED INR: 2.0 - 3.0 CONDITIONS NOT LISTED BELOW 2.5 - 3.5 FOR PROSTHETIC HEART VALVE REPLACEMENT 2.5 - 3.5 RECURRENT THROMBOSIS Performed By: #### P T #### [facility] [address] [address] [address] Jason Pearson PT Coag (PPP) [Time] 14.0 s Critically high 9.0-11.6 [facility] Comment on above: Performed By: #### P T #### [facility] [address] [address] [address] Jason Pearson PROTIMEon 02-07-2022 INR Coag (PPP) [Relative time] 1.08 {INR} Normal [facility] Comment on above: Performed By: #### P T #### [facility] [address] [address] [address] Jason Pearson INR GUIDELINES SEE BELOW Normal The [facility] Comment on above: Result Comment: KOFI RED INR: 2.0 - 3.0 CONDITIONS NOT LISTED BELOW 2.5 - 3.5 FOR PROSTHETIC HEART VALVE REPLACEMENT 2.5 - 3.5 RECURRENT THROMBOSIS Performed By: #### P T #### [facility] [address] [place] [address] Dr. Jason Pearson PT Coag (PPP) [Time] 11.6 s Normal 9.0-11.6 [facility] Comment on above: Performed By: #### P T #### [facility] [address] [address] [address] Jason Pearson XR HIP RT INJon [...] MOON Date: 2022-02-07 11:09 Normal [address] [facility] Initial Visit (Gastroenterol ogy)on 03-28-2018 Initial [...] from the patient and documented on the [facility] health history questionnaire. Pertinent positives [...] MG Oral Tablet; TAKE 1 TABLET DAILY;Therapy: (Recorded:[id number]) to Recorded Dispense: 0 Days ; #: Sufficient Tablet; Refill: 0; KP = N; Record; Last Updated By: Toyin Angeles; 03/28/2018 9:14:26 AM Flecainide Acetate 100 MG Oral Tablet; TAKE 1 TABLET EVERY 12 HOURS DAILY;Therapy: (Recorded:[id number]) to Recorded Dispense: 0 Days ; #: Sufficient Tablet; Refill: 0; KP = N; Record; Last Updated By: Toyin Angeles; 03/28/2018 9:14:26 AM HydroCHLOROthiazide 25 MG Oral Tablet; TAKE 1 TABLET DAILY;Therapy: (Recorded:[id number]) to Recorded Dispense: 0 Days ; #: Sufficient Tablet; Refill: 0; KP = N; Record; Last Updated By: Toyin Angeles; 03/28/2018 9:14:26 AM Imodium A-D CAPS;Therapy: (Recorded:[id number]) to Recorded Dispense: 0 Days ; #: Sufficient CAPS; Refill: 0; KP = N; Record; Last Updated By: Toyin Angeles; 03/28/2018 9:14:26 AM Klor-Con M20 20 MEQ Oral Tablet Extended Release; TAKE 2 TABLETS TWICE DAILY;Therapy: (Recorded:[id number]) to Recorded Dispense: 0 Days ; #: Sufficient Tablet Extended Release; Refill: 0; KP = N; Record; Last Updated By: Toyin Angeles; 03/28/2018 9:14:26 AM Lisinopril 40 MG Oral Tablet; TAKE 1 TABLET DAILY;Therapy: (Recorded:[id number]) to Recorded Dispense: 0 Days ; #: Sufficient Tablet; Refill: 0; KP = N; Record; Last Updated By: Toyin Angeles; 03/28/2018 9:14:26 AM Loratadine 10 MG Oral Tablet; TAKE 1 TABLET DAILY;Therapy: (Recorded:[id number]) to Recorded Dispense: 0 Days ; #: Sufficient Tablet; Refill: 0; KP = N; Record; Last Updated By: Toyin Angeles; 03/28/2018 9:14:26 AM Metoprolol Tartrate 100 MG Oral Tablet; TAKE 1 TABLET DAILY;Therapy: (Recorded:14Orh2020) to Recorded Dispense: 0 Days ; #: Sufficient Tablet; Refill: 0; KP = N; Record; Last Updated By: Toyin Angeles; 03/28/2018 9:14:26 AM Multivitamins TABS;Therapy: (Recorded:[id number]) to Recorded Dispense: 0 Days ; #: Sufficient TABS; Refill: 0; KP = N; Record; Last Updated By: Toyin Angeles; 03/28/2018 9:14:26 AM Tamsulosin HCl - 0.4 MG Oral Capsule;Therapy: (Recorded:[id number]) to Recorded Dispense: 0 Days ; #: Sufficient Capsule; Refill: 0; KP = N; Record; Last Updated By: Toyin Angeles; 03/28/2018 9:14:26 AM Vitamin B-12 ER 1500 MCG Oral Tablet Extended Release;Therapy: (Recorded:[id number]) to Recorded Dispense: 0 Days ; #: Sufficient TBCR; Refill: 0; KP = N; Record; Last Updated By: Toyin Angeles; 03/28/2018 9:14:26 AM Vitamin D3 2000 UNIT Oral Tablet;Therapy: (Recorded:[id number]) to Recorded Dispense: 0 Days ; #: Sufficient Tablet; Refill: 0; KP = N; Record; Last Updated By: Toyin Angeles; 03/28/2018 9:14:26 AM Warfarin Sodium 5 MG Oral Tablet; TAKE 1 TABLET DAILY;Therapy: (Recorded:[id number]) to Recorded Dispense: 0 Days ; #: Sufficient Tablet; Refill: 0; KP = N; Record; Last Updated By: Toyin Angeles; 03/28/2018 9:14:26 AM Vitals Vital Signs Recorded: 28Mar2018 09:12AMHeart Nsuu40Mgrwxtlktwy54Hfhtxnee98 2Zwmanbbhp18Bpjeeh0 ft 2 lsAdujji906 lb 6 ozBMI Zskadwexsq18.52BSA Calculated2.67 Physical ExamConstitutional General appearance: In no [...] diarrhea; KP = N; Verified Transmission to [id number]; Last Updated By: [employer]; 03/28/2018 9:44:38 AM Provider ImpressionsSubmucosal duodenal lesion [...] OF NONCARBONATED BEVERAGE AND SWALLOW ONCE DAILY;Therapy: [id number] to (Evaluate:04Lrs1769) Requested for: [id number]; LastRx:28Mar2018 OrderedFlecainide Acetate 100 MG Oral Tablet; TAKE 1 TABLET EVERY 12 HOURS DAILY;Therapy: (Recorded:[id number]) to RecordedHydroCHLOROthiazide 25 MG Oral Tablet; TAKE 1 TABLET DAILY;Therapy: (Recorded:[id number]) to RecordedImodium A-D CAPS (Loperamide HCl);Therapy: (Recorded:62Dih1166) to RecordedKlor-Con M20 20 MEQ Oral Tablet Extended Release; TAKE 2 TABLETS TWICE DAILY;Therapy: (Recorded:[id number]) to RecordedLisinopril 40 MG Oral Tablet; TAKE 1 TABLET DAILY;Therapy: (Recorded:[id number]) to RecordedLoratadine 10 MG Oral Tablet; TAKE 1 TABLET DAILY;Therapy: (Recorded:[id number]) to RecordedMetoprolol Tartrate 100 MG Oral Tablet; TAKE 1 TABLET DAILY;Therapy: (Recorded:[id number]) to RecordedMultivitamins TABS;Therapy: (Recorded:[id number]) to RecordedTamsulosin HCl - 0.4 MG Oral Capsule;Therapy: (Recorded:[id number]) to RecordedVitamin B-12 ER 1500 MCG Oral Tablet Extended Release;Therapy: (Recorded:[id number]) to RecordedVitamin D3 2000 UNIT Oral Tablet;Therapy: (Recorded:[id number]) to RecordedWarfarin Sodium 5 MG Oral Tablet; TAKE 1 TABLET DAILY;Therapy: (Recorded:[id number]) to Recorded Signatures Electronically signed by : Devin Greer DO; Mar 28 2018 9:51AM EST (Author) Normal [facility] Vital Signs Date Time Vital Sign Value Performing Clinician Facility 03-03-2025 10:51-0400 Body height 187.96 cm Donald Lizarraga MD Work Phone: [facility] 03-03-2025 [id number] Body mass index (BMI) [Ratio] 38.1 kg/m2 Donald Lizarraga MD Work Phone: [facility] 03-03-2025 10:51-0400 Body weight 134.7 kg Donald Lizarraga MD Work Phone: [facility] 02-12-2025 09:22-0400 Body height 187.96 cm Donald Lizarraga MD Work Phone: [facility] 02-12-2025 09:22-0400 Body mass index (BMI) [Ratio] 38.1 kg/m2 Donald Lizarraga MD Work Phone: [facility] 02-12-2025 09:22-0400 Body weight 134.71 kg Donald Lizarraga MD Work Phone: [facility] 02-12-2025 09:22-0400 Diastolic blood pressure 77 mm[Hg] Donald Lizarraga MD Work Phone: [facility] 02-12-2025 09:22-0400 Heart rate 61 /min Donald Lizarraga MD Work Phone: [facility] 02-12-2025 09:22-0400 Systolic blood pressure 128 mm[Hg] Donald Lizarraga MD Work Phone: [facility] 05-29-2024 09:52-0500 Body height 187.96 cm Donald Lizarraga MD Work Phone: [facility] 05-29-2024 09:52-0500 Body mass index (BMI) [Ratio] 38.4 kg/m2 Donald Lizarraga MD Work Phone: [facility] 05-29-2024 09:52-0500 Body temperature 98.5 [degF] Donald Lizarraga MD Work Phone: [facility] 05-29-2024 09:52-0500 Body weight 135.62 kg Donald Lizarraga MD Work Phone: [facility] 05-29-2024 09:52-0500 Diastolic blood pressure 81 mm[Hg] Donald Lizarraga MD Work Phone: [facility] 05-29-2024 09:52-0500 Heart rate 73 /min Donald Lizarraga MD Work Phone: [facility] 05-29-2024 09:52-0500 SaO2% (BldA) [Mass fraction] 98 % Donald Lizarraga MD Work Phone: [facility] 05-29-2024 09:52-0500 Systolic blood pressure 137 mm[Hg] Donald Lizarraga MD Work Phone: [facility] 05-26-2024 09:18-0500 Body height 187.96 cm Donald Lizarraga MD Work Phone: [facility] 05-26-2024 09:18-0500 Body mass index (BMI) [Ratio] 38.5 kg/m2 Donald Lizarraga MD Work Phone: [facility] 05-26-2024 09:18-0500 Body temperature 98.1 [degF] Donald Lizarraga MD Work Phone: [facility] 05-26-2024 09:18-0500 Body weight 136.13 kg Donald Lizarraga MD Work Phone: [facility] 05-26-2024 09:18-0500 Diastolic blood pressure 77 mm[Hg] Donald Lizarraga MD Work Phone: [facility] 05-26-2024 09:18-0500 Heart rate 73 /min Donald Lizarraga MD Work Phone: [facility] 05-26-2024 09:18-0500 Respiratory rate 18 /min Donald Lizarraga MD Work Phone: [facility] 05-26-2024 09:18-0500 SaO2% (BldA) [Mass fraction] 96 % Donald Lizarraga MD Work Phone: [facility] 05-26-2024 09:18-0500 Systolic blood pressure 127 mm[Hg] Donald Lizarraga MD Work Phone: [facility] 05-08-2024 09:24-0400 Body height 187.96 cm [facility] 05-08-2024 09:24-0400 Body mass index (BMI) [Ratio] 38.8 kg/m2 [facility] 05-08-2024 09:24-0400 Body temperature 98 [degF] [facility] 05-08-2024 09:24-0400 Body weight 137.15 kg [facility] 05-08-2024 09:24-0400 Diastolic blood pressure 73 mm[Hg] [facility] 05-08-2024 09:24-0400 Heart rate 70 /min [facility] 05-08-2024 09:24-0400 Respiratory rate 18 /min [facility] 05-08-2024 09:24-0400 SaO2% (BldA) [Mass fraction] 98 % [facility] 05-08-2024 09:24-0400 Systolic blood pressure 167 mm[Hg] [facility] 01-23-2024 14:11-0400 Blood Pressure Location CATHIEHUNTER HERNANDEZ [facility] 01-23-2024 14:11-0400 Body temperature 97.88 [degF] CATHIE TIANA [facility] 01-23-2024 14:11-0400 Diastolic blood pressure 74 mm[Hg] CATHIE TIANA [facility] 01-23-2024 14:11-0400 Heart rate 67 /min CATHIE TIANA [facility] 01-23-2024 14:11-0400 Respiratory rate 16 /min CATHIE TIANA [facility] 01-23-2024 14:11-0400 Systolic blood pressure 138 mm[Hg] CATHIE TIANA [facility] 10-19-2023 10:19-0400 Body height 187.96 cm [facility] 10-19-2023 10:19-0400 Body mass index (BMI) [Ratio] 40.1 kg/m2 [facility] 10-19-2023 10:190400 Body weight 141.63 kg [facility] 10-19-2023 10:19-0400 Diastolic blood pressure 84 mm[Hg] [facility] 10-19-2023 10:19-0400 Heart rate 71 /min [facility] 10-19-2023 10:19-0400 SaO2% (BldA) [Mass fraction] 98 % [facility] 10-19-2023 10:19-0400 Systolic blood pressure 132 mm[Hg] [facility] 07-13-2023 15:30-0500 Body height 187.96 cm Donald Lizarraga Other [email or web address] [facility] [employer] Other 07-13-2023 15:30-0500 Body mass index (BMI) [Ratio] 40.18 kg/m2 Donald Lizarraga Other [employer] Other 07-13-2023 15:30-0500 Body weight 141.98 kg Donald Lizarraga Other [employer] Other 07-13-2023 15:30-0500 Diastolic blood pressure 86 mm[Hg] Donald Lizarraga Other [employer] Other 07-13-2023 15:30-0500 Systolic blood pressure 142 mm[Hg] Donald Lizarraga Other [employer] Other 01-24-2023 10:00-0400 Blood Pressure Location CATHIE HERNANDEZ [facility] 01-24-2023 10:00-0400 Diastolic blood pressure 80 mm[Hg] CATHIE AZEVEDORY [facility] 01-24-2023 10:00-0400 Heart rate 72 /min CATHIE TIANA [facility] 01-24-2023 10:00-0400 Respiratory rate 16 /min CATHIE TIANA [facility] 01-24-2023 10:00-0400 Systolic blood pressure 130 mm[Hg] CATHIE TIANA [facility] 10-06-2022 10:17-0400 Diastolic blood pressure 78 mm[Hg] Daigle SALAM [facility] 10-06-2022 10:17-0400 Heart rate 69 /min Daigle SALAM [facility] 10-06-2022 10:17-0400 Respiratory rate 16 /min Daigle SALAM [facility] 10-06-2022 10:17-0400 SaO2% (BldA) [Mass fraction] 99 % Daigle SALAM [facility] 10-06-2022 10:17-0400 Systolic blood pressure 122 mm[Hg] Daigle SALAM [facility] 10-06-2022 10:05-0400 Diastolic blood pressure 76 mm[Hg] Daigle SALAM [facility] 10-06-2022 10:05-0400 Heart rate 67 /min Daigle SALAM [facility] 10-06-2022 10:05-0400 Respiratory rate 18 /min Daigle SALAM [facility] 10-06-2022 10:05-0400 SaO2% (BldA) [Mass fraction] 99 % Daigle SALAM [facility] 10-06-2022 10:05-0400 Systolic blood pressure 135 mm[Hg] Daigle SALAM [facility] 10-06-2022 10:00-0400 Diastolic blood pressure 70 mm[Hg] Daigle SALAM [facility] 10-06-2022 10:00-0400 Heart rate 66 /min Daigle SALAM [facility] 10-06-2022 10:00-0400 Systolic blood pressure 134 mm[Hg] Daigle SALAM [facility] 10-06-2022 09:55-0400 Respiratory rate 16 /min Daigle SALAM [facility] 10-06-2022 09:52-0400 Body temperature 97.7 [degF] Daigle SALAM [facility] 10-06-2022 09:40-0400 Respiratory rate 1 /min Daigle SALAM [facility] 10-06-2022 08:21-0400 Blood Pressure Location Daigle SALAM [facility] 10-06-2022 08:21-0400 Body temperature 97.88 [degF] Daigle SALAM [facility] 07-29-2022 14:15-0500 Diastolic blood pressure 88 mm[Hg] Elicia Hipolito [facility] 07-29-2022 14:15-0500 Mean blood pressure 105 mm[Hg] Elicia Hipolito [facility] 07-29-2022 14:15-0500 Systolic blood pressure 138 mm[Hg] Elicia Hipolito [facility] 07-29-2022 14:11-0500 Blood Pressure Location Elicia Hipolito [facility] 07-29-2022 14:11-0500 Body temperature 97.88 [degF] Elicia Mcmillan [facility] 07-29-2022 14:11-0500 Diastolic blood pressure 87 mm[Hg] Elicia Mcmillan [facility] 07-29-2022 14:11-0500 Heart rate 77 /min Elicia Mcmillan [facility] 07-29-2022 14:11-0500 Systolic blood pressure 147 mm[Hg] Elicia Mcmillan [facility] 07-26-2022 10:45-0500 Body height 187.96 cm Donald Lizarraga Other [employer] Other 07-26-2022 10:45-0500 Body mass index (BMI) [Ratio] 41.47 kg/m2 Donald Lizarraga Other [employer] Other 07-26-2022 10:45-0500 Body weight 146.51 kg Donald Lizarraga Other [employer] Other 07-26-2022 10:45-0500 Diastolic blood pressure 84 mm[Hg] Donald Lizarraga Other [employer] Other 07-26-2022 10:45-0500 SaO2% (BldA) [Mass fraction] 97 % Donald Lizarraga Other [employer] Other 07-26-2022 10:45-0500 Systolic blood pressure 142 mm[Hg] Donald Lizarraga Other [employer] Other 10-27-2021 12:02-0400 Blood Pressure Location CATHIE HERNANDEZ [facility] 10-27-2021 12:02-0400 Diastolic blood pressure 78 mm[Hg] CATHIE HERNANDEZ [facility] 10-27-2021 12:02-0400 Heart rate 77 /min CATHIE HERNANDEZ [facility] 10-27-2021 12:02-0400 Systolic blood pressure 141 mm[Hg] CATHIE HERNANDEZ [facility] Encounters Encounter Date Encounter Type Care Provider Facility Start: 03-03-2025 End: 03-03-2025 ambulatory Donald Lizarraga MD Work Phone: [facility] Work Phone: Start: 03-03-2025 End: 03-03-2025 Patient encounter procedure Peter Auguste DO -[facility] Work Phone: Start: 02-12-2025 End: 02-12-2025 ambulatory Donald Lizarraga MD Work Phone: [facility] Work Phone: Start: 02-12-2025 End: 02-12-2025 Patient encounter procedure Donald Lizarraga MD -[facility] Work Phone: Start: 12-23-2024 End: 12-23-2024 ambulatory Blessing Granda MD Facility:[facility] Start: 12-16-2024 Non-patient / Non-visit Blessing cui MD -[facility] Work Phone: Start: 12-16-2024 End: 12-16-2024 ambulatory Blessing Granda MD Facility:[facility] Start: 12-14-2024 End: 12-14-2024 Letter encounter Emperatriz Carnes DO Work Phone: [facility] Start: 11-28-2024 Non-patient / Non-visit Merlyn Mesa [facility] Work Phone: Start: 11-25-2024 End: 11-25-2024 ambulatory Blessing Granda MD Facility:[facility] Start: 11-06-2024 End: 11-06-2024 Refill Prasanth Perez MD Work Phone: [facility] Comment on above: Refill Start: 05-29-2024 End: 05-29-2024 ambulatory Donald Lizarraga MD Work Phone: [facility] Work Phone: Start: 05-29-2024 End: 05-29-2024 Patient encounter procedure Donald Lizarraga MD Work Phone: [facility] Work Phone: Start: 05-26-2024 End: 05-26-2024 ambulatory Donald Lizarraga MD Work Phone: [facility] Work Phone: Start: 05-26-2024 End: 05-26-2024 Patient encounter procedure Donald Lizarraga MD Work Phone: [facility] Work Phone: Start: 05-08-2024 End: 05-08-2024 ambulatory [facility] Work Phone: Start: 05-08-2024 End: 05-08-2024 Patient encounter procedure [facility] Work Phone: Start: 04-29-2024 Non-patient / Non-visit [facility] Work Phone: Start: 04-29-2024 End: 04-29-2024 ambulatory Blessing Granda MD Facility:[facility] Start: 04-15-2024 End: 04-15-2024 Office outpatient visit 25 minutes Prasanth Perez MD Work Phone: [facility] Comment on above: PAF (paroxysmal atri al fibrillation) (HCC) (Primary Dx) Start: 04-15-2024 End: 04-15-2024 ambulatory PRASANTH PEREZ Facility:[facility] Start: 01-23-2024 End: 01-23-2024 ambulatory CATHIE HERNANDEZ Facility:[facility] Start: 01-23-2024 End: 01-23-2024 Patient encounter procedure CATHIE HERNANDEZ [facility] Start: 12-27-2023 End: 12-28-2023 Patient encounter status Emperatrizquique Carnes DO Work Phone: [facility] Start: 12-27-2023 End: 12-28-2023 Refill Emperatriz Carnes DO Work Phone: [facility] Comment on above: Refill Start: 10-19-2023 End: 10-19-2023 ambulatory [facility] Work Phone: Start: 10-19-2023 End: 10-19-2023 Patient encounter procedure [facility] Work Phone: Start: 09-07-2023 Non-patient / Non-visit [facility] Work Phone: Start: 07-20-2023 End: 07-20-2023 ambulatory Donald Lizarraga Other [employer] Other Start: 07-20-2023 Telephone encounter Donald Lizarraga [facility] Start: 07-13-2023 End: 07-13-2023 ambulatory Donald Lizarraga Other [employer] Other Start: 07-13-2023 Office outpatient vi sit 15 minutes Donald Lizarraga [facility] Start: 04-04-2023 Patient encounter status [...] 03-28-2023 End: 03-28-2023 ambulatory Donald Lizarraga Other [employer] Other Start: 03-28-2023 Telephone encounter Donald Lizarraga [facility] Start: 03-18-2023 Letter encounter Emperatriz [...] End: 01-24-2023 Lab Drop off CATHIE HERNANDEZ [facility] Start: 01-24-2023 End: 01-24-2023 Patient encounter procedure CATHIE HERNANDEZ [facility] Start: 11-10-2022 End: 11-11-2022 ambulatory JEET HERNÁNDEZ . Facility: Start: 11-07-2022 End: 12-07-[address] DONALD LIZARRAGA Facility:[facility] Start: 10-13-2022 ambulatory JAIMEE GUYMIPATHY . Facility:[facility] Start: 10-11-2022 (Televisit) Televisit Donald Lizarraga [facility] Start: 10-11-2022 End: 10-11-2022 ambulatory Donald Lizarraga Other [employer] Other Start: 10-10-2022 End: 11-04-2022 ambulatory WOMACK H FAWWAD Facility:[facility] Start: 10-06-2022 End: 10-06-2022 Patient encounter procedure Daigle FRED [facility] Start: 2022 Telephone encounter Donald Lizarraga [facility] Start: 2022 End: 09-09-[address] DONALD LIZARRAGA [place] [employer] Other Start: 09-07-2022 End: 10-07-2022 ambulatory WOMACK H FAWWAD Facility:[facility] Start: 08-10-2022 End: 09-07-2022 ambulatory WOMACK H FAWWAD Facility:[facility] Start: 07-29-2022 End: 07-29-2022 Patient encounter procedure Elicia Isauro Hipolito [facility] Start: 07-26-2022 End: 07-26-2022 ambulatory Donald Lizarraga Other [employer] Other Start: 07-26-2022 Office outpatient vi sit 15 minutes Donald Lizarraga [facility] Start: 07-20-2022 End: 07-21-2022 ambulatory [...] encounter status Emperatriz Karim DO Work Phone: [email or web address] Start: 02-27-2022 Refill Emperatriz Karim DO Work Phone: [email or web address] Comment on above: Refill Start: 02-07-2022 End: 02-07-[address] DONALD LIZARRAGA Facility:[facility] Start: 02-07-2022 End: 03-09-[address] DONALD LIZARRAGA Facility:[facility] Start: 01-15-2022 Refill Emperatriz Karim DO Work Phone: [email or web address] Comment on above: Refill Start: 01-07-2022 End: 02-04-[address] DONALD LIZARRAGA Facility:[facility] Start: 11-24-2021 Patient encounter status Emperatriz Karim DO Work Phone: [email or web address] Start: 11-24-2021 Refill Emperatriz Karim DO Work Phone: [email or web address] Comment on above: Refill Start: 11-24-2021 Refill Emperatriz Karim DO Work Phone: [email or web address] Comment on above: Refill Start: 10-27-2021 End: 10-27-2021 Patient encounter procedure CATHIE HERNANDEZ [facility] Start: 03-28-2018 Patient encounter Devin Greer Fa cility:[facility] Start: 04-24-2017 End: 04-25-2017 Ambulatory DEFAULT PHYSICIAN Facility:[facility] Start: 03-03-2017 End: 03-04-2017 Ambulatory DEFAULT PHYSICIAN Facility:[facility] Procedures Date Procedure Procedure Detail Performing Clinician Start: 05-26-2024 Plain chest X-ray Donald Lizarraga MD Work Phone: Start: 10-06-2022 Colonoscopy Oxana IBARRA Start: [address] JADEN VILLA . Comment on above: Performed By: #### [facility] #### [facility] [address] [place] [address] Dr. Jason Pearson Start: 04-23-2020 Transurethral prostatectomy [...] panel Cholesterol [facility] Start: 02-12-2025 Patient referral [facility] Work Phone: Start: 03-10-2024 COVID-19 Vaccine ( season) COVID-19 Vaccine () [facility] Start: 03-10-2024 COVID-19 Vaccine ( season) COVID-19 Vaccine () [facility] Start: 03-10-2024 Influenza vaccination Influenza Vaccine (#1) [facility] Start: 04-09-2023 Influenza vaccination Influenza Vaccine (#1) [facility] Start: 03-29-2023 End: 03-29-2023 Telemedicine consultation with patient 03/29/2023 4:20 PM EDT Telemedicine [facility] [address] [place] [address] Emperatriz Carnes DO [address] [place] [address] [facility] Start: 03-10-2023 COVID-19 Vaccine ( season) [...] Screening for malignant neoplasm of colon Colonoscopy [facility] Patient Education Low back pain in adults [facility] Work Phone: Patient referral [facility] Work Phone: Immunizations Immunization Date Immunization Notes Care Provider Fa cility 05-24-2023 Pneumococcal conjuga te 20 valent (PCV20), polysaccharide TUE925 conjugate, adjuvant, PF (OBO=113) [employer] Work Phone: [facility] 05-10-2023 influenza virus vaccine, unspecified formulation CATHIE TIANA [facility] 05-10-2023 Influenza, seasonal vaccine, quadrivalent, adjuvanted, 0.5mL dose, preservative free (VXP=540) [employer] Work Phone: [facility] 05-24-2022 influenza virus vaccine, unspecified formulation Elicia Zamarripaz [facility] 05-24-2022 Influenza, seasonal vaccine, quadrivalent, adjuvanted, 0.5mL dose, preservative free (PWD=544) [employer] Work Phone: [facility] 12-16-2021 Pfizer Monovalent (1 2+ yrs) SARS-COV-2 (COVID-19) vaccine, mRNA, spike protein, LNP, pres. free, 30 mcg/0.3mL dose, art-sucrose (JFY=827) [employer] Work Phone: [facility] 12-16-2021 SARS-CoV-2 mRNA (ochvskdoeli-byia-uizth se) vaccine Elicia Garciametz [facility] 08-18-2021 pneumococcal conjuga te vaccine, 13 valent [employer] Work Phone: [facility] 06-09-2021 SARS-CoV-2 (COVID-19 ) mRNA BNT-162b2 vax Eliciagurwinder GarciaHipolito [facility] 05-26-2021 SARS-CoV-2 (COVID-19 ) Ad26 vaccine, recombinant CATHIE HERNANDEZ [facility] 05-21-2021 Influenza, seasonal vaccine, quadrivalent, adjuvanted, 0.5mL dose, preservative free (FLP=006) Emper[facility]riz Carnes [facility] 05-21-2021 influenza virus vaccine, unspecified formulation Emperatrizquqiue Carnes DO Work Phone: [facility] 04-28-2021 influenza virus vaccine, unspecified formulation CATHIE HERNANDEZ [facility] 04-28-2021 SARS-CoV-2 (COVID-19 ) Ad26 vaccine, recombinant CATHIE HERNANDEZ [facility] 09-26-2020 Pfizer SARS-COV-2 (COVID-19) vaccine, age 12+ yrs, mRNA, spike protein, LNP, preservative free, 30 mcg/0.3mL dose (OVL=172) [employer]per[employer]riz Carnes DO Work Phone: [facility] Comment on above: Result Comment: 2022: [id number] 09-05-2020 Pfizer SARS-COV-2 (COVID-19) vaccine, age 12+ yrs, mRNA, spike protein, LNP, preservative free, 30 mcg/0.3mL dose (SLT=633) Emperatriz Carnes DO Work Phone: [facility] Comment on above: Result Comment: 2022: [id number] 05-10-2020 influenza virus vaccine, unspecified formulation CATHIE HERNANDEZ [facility] 05-05-2020 influenza virus vaccine, unspecified formulation Elicia Garciametz [facility] 05-05-2020 Influenza, seasonal vaccine, quadrivalent, adjuvanted, 0.5mL dose, preservative free (KDS=418) Em[employer]riz Karim DO Work Phone: [facility] 04-29-2019 influenza virus vaccine, unspecified formulation Elicia Mcmillan [facility] 04-29-2019 influenza, high dose seasonal, preservative-free Emperatriz Karim DO Work Phone: [facility] 04-26-2018 influenza virus vaccine, unspecified formulation Elicia Mcmillan [facility] 04-26-2018 Influenza, injectabl e, Madin [place] Canine Kidney, preservative free, quadrivalent Emperatriz Karim DO Work Phone: [facility] 04-19-2016 influenza virus vaccine, split virus (incl. purified surface antigen) Donald Lizarraga Other [employer] Other 04-19-2016 influenza virus vaccine, unspecified formulation [facility] 04-19-2016 pneumococcal polysaccharide vaccine, 23 valent Donald Lizarraga Other [facility] 06-23-2014 influenza virus vaccine, split virus (incl. purified surface antigen) Donald Lizarraga Other [employer] Other 06-23-2014 influenza virus vaccine, unspecified formulation [facility] 02-13-2014 diphtheria, tetanus toxoids and acellular pertussis vaccine, unspecified formulation Donald Lizarraga Other [facility] Payers Date Payer Category Payer Commercial Indemnity [facility] [id number] 2022 Unknown 2018 Medicare [id number]. [id number] 2018 Medicare FFS MEDICARE [id number]. [id number] 1959 Medicare [id number] 2.16.840.1.922173.19 1959 Unknown [id number] 2.16.840.1.712974.19 1953 Unknown [id number] 2.16.840.1.671626.3.579.2.5 1953 Unknown [id number] 2.16.840.1.545763.3.579.2.5 1953 Unknown [id number] 2.16.840.1.281926.3.579.2.5 1953 Unknown [id number] 2.16.840.1.524148.3.579.2.5 1953 Unknown [id number] 2.16.840.1.160659.3.579.2.5 1953 Unknown [id number] 2.16.840.1.431346.3.579.2.5 1953 Unknown [id number] 2.16.840.1.752316.3.579.2.5 1953 Unknown [id number] 2.16.840.1.541994.3.579.2.5 93 1953 Unknown [id number] 2.16.840.1.430892.3.579.2.5 1953 Unknown [id number] 2.16.840.1.690639.3.579.2.5 93 1953 Unknown [id number] 2.16.840.1.078113.3.579.2.5 1953 Unknown [id number] 2.16.840.1.923894.3.579.2.5 93 1953 Unknown [id number] 2.16.840.1.660824.3.579.2.5 1953 Unknown [id number] 2.16.840.1.448312.3.579.2.5 1953 Unknown [id number] 2.16.840.1.795175.3.579.2.5 1953 Unknown [id number] 2.16.840.1.106795.3.579.2.5 1953 Unknown [id number] 2.16.840.1.514577.3.579.2.5 1953 Unknown [id number] 2.16.840.1.156809.3.579.2.5 1953 Unknown [id number] 2.16.840.1.201546.3.579.2.5 1953 Unknown [id number] 2.16.840.1.986004.3.579.2.5 1953 Unknown [id number] 2.16.840.1.737322.3.579.2.5 1953 Unknown [id number] 2.16.840.1.860394.3.579.2.5 1953 Unknown [id number] 2.16.840.1.791671.3.579.2.5 1953 Unknown [id number] 2.16.840.1.315236.3.579.2.7 27 1953 Unknown [id number] 2.16.840.1.513524.3.579.2.7 32 1953 Unknown [id number] 2.16.840.1.432364.3.579.2.1 96 1953 Unknown [id number] 2.16.840.1.420467.3.579.2.1 96 1953 Unknown [id number] 2.16.840.1.400473.3.579.2.1 96 1953 Unknown [id number] 2.16.840.1.102185.3.579.2.1 96 Unknown [id number] Unknown Romel BC/BS [id number] Social History Date Type Detail Facility Start: 09-03-2020 End: 05-26-2024 Tobacco smoking status Never smoked tobacco (finding) [facility] Tobacco smoking status Never [facility] Start: 03-27-2023 Sex Assigned At Male [facility] Start: 12-28-2018 Tobacco use and exposure Smokeless tobacco non-user [facility] Start: 12-28-2018 End: 03-27-2023 Alcohol intake Ex-drinker (finding) [facility] Start: 1955 Sex Assigned At Not on file [facility] Start: 1955 Sex Assigned At Male [facility] Start: 03-27-2023 History of Social function [facility] Within the last year , have you been afraid of your partner or ex-partner? No [facility] Do you belong to any clubs or organizations such as orthodox groups, unions, fraternal or athletic groups, or school groups? Yes [facility] Are you now , , , , never or [facility] Do you feel stress - tense, [...] Start: 08-09-2018 End: 05-26-2024 Sex Male (finding) [facility] Start: 03-27-2023 Details of drug misuse behavior Has never misused drugs (situation) [facility] Functional Status Date Assessment Result Facility 01-23-2024 Functional Status N/A [facility] 01-24-2023 Functional Status N/A [facility] 10-06-2022 Functional Status N/A [facility] 07-29-2022 Functional Status N/A [facility] Clinical Notes 11-24-2021 to 02-12-2025 [...] 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 10:28am [facility] Work Phone: 1(849) 174-649810-30-2024 Evaluation note* Diagnosis Onset Date Resolution Status Admit Date Bronchitis acute May 08, 2024 9:18am Cough noneactive May 26, 2024 9:07am [facility] Work Phone: 1([phone]) 526-465610-07-2024 History of Present illness Narrative* Prasanth Perez [...] his last visit, he had lexiscan at [facility] on 09/2016 that showe no reversible [...] in 1 year Prior to your visit, [facility] shared information with you about the risks [...] 180 Tablet 3 Sodium Sulfate-Mag Sulfate-KCl (Sutab) 3164-415-604 MG TABS Take by mouth. AMLODIPINE BESYLATE [...] declined Stress: No Stress Concern Present (03/27/2023) [place] [facility] [employer] - Occupational Stress Questionnaire Feeling of Stress : Not at all Social Connections: Moderately Integrated (03/27/2023) Social Connection and Isolation Panel [NHANES] Frequency of Communication with Friends and Family: More than three times a week Frequency of Social Gatherings with Friends and Family: Twice a week Attends Oriental Orthodox Services: Never Active Member of Clubs or Organizations: Yes Attends Club or Organization Meetings: More than 4 times per year Marital Status: Intimate Partner Violence: Not At Risk (03/27/2023) Humiliation, Afraid, Rape, and Kick questionnaire Fear of Current or Ex-Partner: No Emotionally Abused: No Physically Abused: No Sexually Abused: No No family history on file. documented in this [id number] Hospital Discharge instructions Patient Education 01/23/2024 14:28:31 [...] Follow these instructions at home: Medicines Take tsqd-wyq-cptvwkp and prescription medicines only as told by [...] provider. Document Revised: 09/22/2021 Document Reviewed: 09/22/2021 [employer] Patient Education 2022 Tykli. Follow Up Care 01/24/2023 10:37:20 With:TIANA GARCIA, CATHIE Ruano, URL Address: [address] [place] [address] [phone] When: only if needed [facility] 07-16-2024 NotePatient Education Urology Erectile Dysfunction Erectile [...] these instructions at home: Medicines ? Take rgza-iru-dntxszk and prescription medicines only as told by [...] nicotine or tobacco. 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 Last televisit- 08/2020- He had to ER on 05/22/20 when he had pain with a blood clot- needing to stop his coumadin for a short period of time. He felt like he has been in sinus rhythm on his self checks. He was on Nvjoywykyk797 mg BID and Lopressor 100 mg BID. Since patient last saw me, he had TURP done- no further hematuria or urgency. PSA has been stable. Colonoscopy was normal per patient. No melena etc. ALLERGIES: Allergies Allergen Reactions Other (Review Comments!) MEDICATIONS: Current Outpatient Medications Medication Sig Dispense Refill Sodium Sulfate-Mag Sulfate-KCl (Sutab) 2758-618-648 MG TABS Take by mouth. AMLODIPINE BESYLATE [...] Stress: No Stress Concern Present (03/27/2023) [place] [employer] - Occupational Stress Questionnaire Feeling of Stress : Not at all Social Connections: Moderately Integrated (03/27/2023) Social Connection and Isolation Panel [NHANES] Frequency of Communication with Friends and Family: More than three times a week Frequency of Social Gatherings with Friends and Family: Twice a week Attends Oriental Orthodox Services: Never Active Member of Clubs or [...] Assessment/Plan: Persistent atrial fibrillation (HCC) (Primary Diagnosis) [637847] Anticoagulated [943842] JAVED on CPAP [870590] Patient doing well overall as far as [...] Electrophysiology 03/29/23 4:52 PM documented in this [id number] Telephone encounter Note* Telephone Encounter - Crystal Putnam RN - 02/17/2023 9:17 AM EDT LVM for pt that new generic Rx (Toprol XL) was sent over to [facility]. [id number] Miscellaneous Notes* Telephone Encounter - Crystal Putnam RN - 02/17/2023 9:17 AM EDT LVM for pt that new generic Rx (Toprol XL) was sent over to [facility]. * Telephone Encounter - Dexter Heather Norberto - 02/16/2023 9:38 AM EDT [facility] is calling wanting to know if they can dispense Metoprolol SUCC- ER 100 mg instead ofthe Toprol XL 100 mg, pt's insurance will only cover the generic brand. Please contact [phone] use Re:[phone]. Thank you documented in this [id number] Telephone encounter Note* Telephone Encounter - Aundrea Davis PharmD - 02/16/2023 3:00 PM EDT Patient called stating the original prescription that was sent had a KP for Toprol XL 100mg which is not covered. Please send over generic Metoprolol ER Succinate 100mg. Thank you! [id number] Miscellaneous Notes* Telephone Encounter - Aundrea Davis PharmD - 02/16/2023 3:00 PM EDT Patient called stating the original prescription that was sent had a KP for Toprol XL 100mg which is not covered. Please send over generic Metoprolol ER Succinate 100mg. Thank you! documented in this [id number] Telephone encounter Note* Telephone Encounter - Heather Renteria - 02/16/2023 9:38 AM EDT [facility] is calling wanting to know if they can dispense Metoprolol SUCC- ER 100 mg instead ofthe Toprol XL 100 mg, pt's insurance will only cover the generic brand. Please contact [phone] use Re:[phone]. Thank you [employer] Work Phone: 1(990) 543-250007-18-2023 Hospital Discharge instructions Patient Education 01/24/2023 10:34:12 [...] Follow these instructions at home: Medicines Take vryu-hfq-asqxsyc and prescription medicines only as told by [...] provider. Document Revised: 09/22/2021 Document Reviewed: 09/22/2021 [employer] Patient Education 2022 Tykli. Follow Up Care 10/27/2021 12:15:55 With:TIANA GARCIA, CATHIE Ruano, URL Address: [address] [place] [address] When:Within 1 Year(s) [facility] 04-04-2023 Evaluation note* Encounter Date Diagnosis [...] I48.91) stable. 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 [employer] Other 03-30-2023 Evaluation + Plan noteExtracted from: Title:KRISSY post op Author:Daljit Gooden MD Date:10/06/22 Plan Transfer/Discharge: Transfer/Discharge Discharge when meets criteria ( To home ). Extracted from: Title:KRISSY GA Author:Daljit Gooden MD Date:10/06/22 Plan [place] [employer] Anesthesiologists (ASA) physical status classification: Class III. Anesthetic Preoperative Plan: Anesthesia General. Future Appointments Appointment Date:01/25/2023 10:00:00 AM Scheduled Provider:Erica Chua MD Location:[facility] Appointment Type:URO Office Visit [facility]03[facility]30-2023 Hospital Discharge instructions Patient Education 10/06/2022 10:00:07 Colonoscopy, Care After Surgery [facility]am (CUSTOM) Colonoscopy Care After Surgery Please read the instructions outlined below and refer to this sheet in the next few weeks. These discharge instructions provide you with general information on [facility] Your doctor may also give you [...] 03/22/2005 Document Revised: 10/11/2018 Document Reviewed: 10/11/2018 [employer] Patient Education 2020 Tykli. 10/06/2022 10:00:07 Hemorrhoids, Lpms-gh-Otfj Hemorrhoids Hemorrhoids are swollen veins that may [...] 3 times a day. General instructions Take aagh-msw-vmqhjnv and prescription medicines only as told by [...] 04/04/2009 Document Revised: 07/04/2019 Document Reviewed: 11/15/2018 [employer] Patient Education 2020 Tykli. Follow Up Care 07/29/2022 15:02:48 With:Oxana IBARRA Address: [address] [place] [address] Business (1) When: Unknown Comments:Call for any problems. [facility]01-20-2023 Hospital Discharge instructions Patient Education 07/29/2022 [...] including vitamins, herbs, eye drops, creams, and hjlb-uum-aohnutw medicines. Any problems you or family members [...] 06/23/2001 Document Revised: 04/18/2018 Document Reviewed: 09/06/2016 [employer] Patient Education 2019 Tykli. Follow Up Care 07/05/2022 09:47:30 With:Elicia Mcmillan CNP Address: When:1 to 2 weeks Comments:Following colonoscopy. [facility] 01-17-2023 Evaluation note* Encounter [...] way. Continue follow-up with cardiology as scheduled. [employer] Other 01-11-2023 NoteCONSULTATION CONSULTATION DATE: 07/20/2022 HISTORY [...] three months' time unless otherwise indicated.[facility] 07-20-2022 NoteCONSULTATION PROCEDURE DATE: 07/20/2022 PREOPERATIVE [...] pattern. Patient tolerated the procedure well.[facility] [id number] NotePAIN MANAGEMENT CONSULTATION CONSULTATION DATE: 05/26/2022 HISTORY [...] procedure, and he wishes to proceed.[facility] [id number] NoteCONSULTATION CONSULTATION DATE: 04/07/2022 HISTORY OF PRESENT [...] which is aggravated by prolonged standing and mill tender warm up hours. He states that such activity has [...] re-evaluation. Patient agrees to this plan.[facility] [id number] NoteCONSULTATION CONSULTATION DATE: 03/03/2022 This is a 20-kaja-qqrteiisx returning to clinic for a 3-month follow-up. [...] followed up in the office following.[facility] [id number] Telephone encounter Note* Telephone Encounter - Erica Beckett - 03/01/2022 11:40 AM EDT Patient has not been seen by this specialist in more than 1 year. Please contact patient to schedule office visit. Thank you [id number] Miscellaneous Notes* Telephone Encounter - Erica Beckett - 03/01/2022 11:40 AM EDT Patient has not been seen by this specialist in more than 1 year. Please contact patient to schedule office visit. Thank you documented in this [id number] Telephone encounter Note* Telephone Encounter - Irina Nguyen - 01/18/2022 7:23 AM EDT Last visit with Cardiology (Emperatriz Carnes) on 09/03/2020 Requested Prescriptions Pending Prescriptions Disp Refills metoprolol (TOPROL-XL) 100 mg XL tablet [Pharmacy Med Name: METOPROLOL SUCCINATE ER TABS 100MG] 90 Tablet 3 Sig: TAKE 1 TABLET DAILY No PCP on file No PCP on file [id number] Miscellaneous Notes* Telephone Encounter - Irina Nguyen - 01/18/2022 7:23 AM EDT Last visit with Cardiology (Emperatriz Carnes) on 09/03/2020 Requested Prescriptions Pending Prescriptions Disp Refills metoprolol (TOPROL-XL) 100 mg XL tablet [Pharmacy Med Name: METOPROLOL SUCCINATE ER TABS 100MG] 90 Tablet 3 Sig: TAKE 1 TABLET DAILY No PCP on file No PCP on file documented in this [id number] Telephone encounter Note* Telephone Encounter - Anirudh Gonzalez RPh - 11/29/2021 3:11 PM EDT Pt called back, will talk to his ACC to get refill [facility] Work Phone: 1(314) 205-389105-23-2022 Miscellaneous Notes* Telephone Encounter - Anirudh Gonzalez RPh - 11/29/2021 3:11 PM EDT Pt called back, will talk to his ACC to get refill * Telephone Encounter - Asia Laguna RN - 11/29/2021 2:52 PM EDT Left message for pt to return call to [facility] at [phone] 2nd attempt * Telephone Encounter - Cathie Whitley RN - 11/26/2021 2:46 PM EDT Left message for patient to please call back. 1st attempt * Telephone Encounter - Anirudh Gonzalez RPh - 11/25/2021 9:37 AM EDT [facility] Staff, Please contact pt re the following issue. Per 09/03/[address] [facility] , they should refill, will deny Thanks! * Telephone Encounter - Tamiko Rodriguez PharmD - 11/24/2021 4:09 PM EDT Requested Prescriptions Pending Prescriptions Disp Refills warfarin (COUMADIN) 5 MG tablet 90 Tablet 0 Sig: Take 1 Tablet by mouth daily. No PCP on file No PCP on file documented in this [id number] Telephone encounter Note* Telephone Encounter - Asia Laguna RN - 11/29/2021 2:52 PM EDT Left message for pt to return call to [facility] at [phone] 2nd attempt [facility] Work Phone: 1(904) 675-806005-20-2022 Telephone encounter Note* Telephone Encounter - Cathie Whitley RN - 11/26/2021 2:46 PM EDT Left message for patient to please call back. 1st attempt [id number] Telephone encounter Note* Telephone Encounter - Anirudh Gonzalez RPh - 11/25/2021 9:37 AM EDT [facility] Staff, Please contact pt re the following issue. Per 09/03/[address] [facility] , they should refill, will deny Thanks! [id number] Telephone encounter Note* Telephone Encounter - Tamiko Rodriguez PharmD - 11/24/2021 4:09 PM EDT Requested Prescriptions Pending Prescriptions Disp Refills warfarin (COUMADIN) 5 MG tablet 90 Tablet 0 Sig: Take 1 Tablet by mouth daily. No PCP on file No PCP on file [employer] Work Phone: 1(403) 819-446305-18-2022 Miscellaneous Notes* Telephone Encounter - Tamiko Rodriguez [...] [Pharmacy Med Name: POTASSIUM CHLORIDE ER (DISP) [id number]] 180 Tablet 3 Sig: TAKE 1 TABLET TWICE A DAY Refused Prescriptions Disp Refills warfarin (COUMADIN) 5 MG tablet [Pharmacy Med Name: WARFARIN TABS 5MG] 90 Tablet 3 Sig: TAKE 1 TABLET DAILY (INR: 2.33) No PCP on file No PCP on file documented in this encounterMetroHealthEvaluation + Plan note Future Appointments Appointment Date:11/01/2022 09:45:00 AM Scheduled Provider:Min Tristan Jr., MD Location:[facility] Appointment Type:URO Office Visit Diagnostic Tests Pending * PSA Total 10/27/21 [facility] evaluation + Plan note Future Appointments Appointment Date:10/06/2022 09:00:00 AM Scheduled Provider: Location:[facility] Appointment Type:Surgery FT Appointment Date:11/01/2022 09:45:00 AM Scheduled Provider:Min Tristan Jr., MD Location:[facility] Appointment Type:URO Office Visit [facility] Evaluation + Plan note Future Appointments Appointment Date:01/30/2024 10:00:00 AM Scheduled Provider:CATHIE HERNANDEZ PA-C Location:[facility] Appointment Type:URO Office Visit [facility] evaluation + Plan note Future Appointments Appointment Date:01/30/2024 10:00:00 AM Scheduled Provider:CATHIE HERNANDEZ PA-C Location:[facility] Appointment Type:URO Office Visit Diagnostic Tests Pending * Urine Culture [facility] [facility] Diagnosis PAF (paroxysmal atrial fibrillation) [...] present documented in this [facility] [employer] Other Evaluation note* Diagnosis Persistent atrial fibrillation [...] in this encounter [facility] noteNo assessment information [facility] Work Phone: Evaluation note* Diagnosis PAF [...] note* Diagnosis Onset Date Resolution Status Bronchitis [facility] Work Phone: Evaluation note* Diagnosis Onset Date Resolution Status Admit Date A-fib acute February 12 9:16am Bilateral primary osteoarthr itis of hip acute February 12, 2025 9:16am Bilateral primary osteoarthr itis of knee acute February 12, 2025 9:16am Lumbar pain acute February 12 9:16am Medicare annual wellness vis it, subsequent acute February 12, 2025 9:16am JAVDE on CPAP acute February 12 9:16am [facility] Work Phone: History general Narrative - Reported* [...] Hospitalization History No Hospitalization histo ry information [employer] Other Hospital course Narrative No data available for this section [facility] Hospital Discharge instructions No data available for this section [facility] Hospital Discharge instructionsAmbulatory Orders* Referral to Orthopedic Surgery Location: None Selected [facility] Work Phone: Progress note No data available for this section [facility] Summary Purpose Family History [...] section and content) DATE CREATED AUTHOR 01/02/2018 [facility] DATE CREATED AUTHOR AUTHOR'S ORGANIZ ATION 04/24/2018 [employer] DATE CREATED AUTHOR AUTHOR'S ORGANIZ ATION 05/06/2018 [facility] DATE CREATED AUTHOR AUTHOR'S ORGANIZ ATION 12/16/2022 [facility] DATE CREATED AUTHOR AUTHOR'S ORGANIZ ATION [facility]2024 [facility] DATE CREATED AUTHOR AUTHOR'S ORGANIZ ATION 04/15/2024 [facility] DATE CREATED AUTHOR AUTHOR'S ORGANIZ ATION 05/28/2024 [facility] DATE CREATED AUTHOR AUTHOR'S ORGANIZ ATION 02/08/2025 [facility] Reason for Visit (unrecogniz ed section and content) Reason Comments Refill Reason Onset Date Comments Refill 11/24/2021 Reason Onset Date Comments Refill 02/14/2023 Reason Onset Date Comments Question about medication 02/16/2023 Reason Onset Date Comments Refill 02/16/2023 Reason Comments Atrial fibrillation/flutter Reason Comments New patient, to establish relationship Reason Onset Date Comments Refill 11/06/2024 Care Teams (unrecognized sec tion and content) Computer Education Teacher Relationship Specialty Start Date End Date Emperatriz Carnes DO [address] [place] [address] Physician Electrophysiology 04/14/20 Computer Education Teacher Relationship Specialty Start Date End Date Emperatriz Carnes DO [address] [place] [address] Physician Electrophysiology 04/14/20 Computer Education Teacher Relationship Specialty Start Date End Date Emperatriz Carnes DO [address] [place] [address] Physician Electrophysiology 04/14/20 Computer Education Teacher Relationship Specialty Start Date End Date RodolfoSa betsyDO quique [address] [place] [address] [place] [address] Physician Electrophysiology 04/14/20 Computer Education Teacher Relationship Specialty Start Date End Date Emperatriz Carnes DO [address] [place] [address] [place] [address] Physician Electrophysiology 04/14/20 Computer Education Teacher Relationship Specialty Start Date End Date Emperatriz Carnes, DO [address] [place] [address] Physician Electrophysiology 04/14/20 Computer Education Teacher Relationship Specialty Start Date End Date Emperatriz Carnes, DO [address] [place] [address] Physician Electrophysiology 04/14/20 Computer Education Teacher Relationship Specialty Start Date End Date Emperatriz Carnes, DO [address] [place] [address] Physician Electrophysiology 04/14/20 Computer Education Teacher Relationship Specialty Start Date End Date Emperatriz Carnes, DO [address] [place] [phone] Physician Electrophysiology 04/14/20 Team Status: Active Member [...] October 19, 2023 End: October 19, 2023 Computer Education Teacher Relationship Specialty Start Date End Date Emperatriz Carnes, DO [address] [place] [address] Physician Electrophysiology 04/14/20 Computer Education Teacher Relationship Specialty Start Date End Date Emperatriz Carnes, DO [address] [place] [address] Physician Electrophysiology 04/14/20 Team Status: Active Member Role Status Dates Dnoald Lizarraga MD Primary Care Provider Active Start: [...] May 29, 2024 End: May 29, 2024 Computer Education Teacher Relationship Specialty Start Date End Date Emperatriz Carnes DO [address] [place] [phone] Physician Electrophysiology 04/14/20 Prasanth Perez MD [address] [place] [address] [place] [address] Physician Cardiac Electrophysiology 05/11/24 Computer Education Teacher Relationship Specialty Start Date End Date Emperatriz Carnes DO [address] [place] [address] Physician Electrophysiology 04/14/20 Prasanth Perez MD [address] [place] [address] Physician Cardiac Electrophysiology 05/11/24 Team Status: Active [...] BE BASED ON THE PRIMARY CLINICAL RECORDS. [employer] provides no warranty or guarantee of the accuracy or completeness of information in this document.
== END 2025-03-20 10:13 | disposition home or self-care (01) ==
LOC: RAD 10:13
PROVIDERS: PCP Family Medicine; Visit Provider Nurse Practitioner
DX: M17.11 Unilateral primary osteoarthritis, right knee (principal)
CPT/HCPCS: 73564

== ENCOUNTER 2025-03-24 13:59 | Outpatient (OUT) | payer MEDICARE, SELFPAY ==
--- OUTSIDE RECORDS SUMMARY | 2025-03-24 14:01 | XMS_ITS | Encounter Summary ---
Author Organization [facility] Address [address] [place] [address] Care Team Providers Care Industrial Millwright Name Role Phone Emperatriz Carnes DO Unavailable Carlos Nuñez MD Unavailable [phone] Encounter Details Date Type Department Care Team [...] on filedocumented in this encounter Care Teams Industrial Millwright Relationship Specialty Start Date End Date Emperatriz Carnes DO [address] [facility] [place] [address] Physician Electrophysiology 04/14/20 Carlos Nuñez MD [address] [facility] [place] [address] Physician Cardiac Electrophysiology 05/11/24 documented as of this encounter
--- OUTSIDE RECORDS SUMMARY | 2025-03-24 14:01 | XMS_ITS | Encounter Summary ---
Author Organization [facility] Address [address] [facility] [place] [address] Care Team Providers Care Overlock Sewing Machine Operator Name Role Phone Emperatriz Carnes DO Unavailable Carlos Nuñez MD Unavailable [phone] Encounter Details Date Type Department Care Team [...] on filedocumented in this encounter Care Teams Overlock Sewing Machine Operator Relationship Specialty Start Date End Date Emperatriz Carnes DO [address] [place] [address] Physician Electrophysiology 04/14/20 Carlos Nuñez MD [address] [place] [address] Physician Cardiac Electrophysiology 05/11/24 documented as of this encounter
--- OUTSIDE RECORDS SUMMARY | 2025-03-24 14:01 | XMS_ITS | Clinical Summary ---
Author Organization [facility] Address [address] [place] [address] Phone Care Team Providers Care Internet Salesperson Name Role Phone Rocio Bagley MD Primary Care Provider [phone] Social History Tobacco Use Types Packs/Day Years Used Date Smoking Tobacco: Never Assessed Sex and Gender Information Value Date Recorded Sex Assigned at Not on file Legal Sex Male 12:38 PM EST Gender Identity Not on file Sexual Orientation Not on file Plan of Treatment Not on file Care Teams Internet Salesperson Relationship Specialty Start Date End Date Rocio Bagley MD [address] [place] [address] [address] [place] [address] PCP - General 03/28/18
--- OUTSIDE RECORDS SUMMARY | 2025-03-24 14:01 | XMS_ITS | Encounter Summary ---
Author Organization [facility] Address [address] [facility] [place] [address] Care Team Providers Care Carpet Jack Name Role Phone Emperatriz Carnes DO Unavailable Carlos Nuñez MD Unavailable [phone] Encounter Details Date Type Department Care Team [...] on filedocumented in this encounter Care Teams Carpet Jack Relationship Specialty Start Date End Date Emperatriz Carnes DO [address] [place] [address] Physician Electrophysiology 04/14/20 Carlos Nuñez MD [address] [place] [address] Physician Cardiac Electrophysiology 05/11/24 documented as of this encounter
--- OUTSIDE RECORDS SUMMARY | 2025-03-24 14:01 | XMS_ITS | Clinical Summary ---
Author Organization [facility] Address [address] [place] [address], [address] [place] [address] Care Team Providers Care Environmental Geologist Name Role Phone Unavailable Primary Care Provider [...]
--- OUTSIDE RECORDS SUMMARY | 2025-03-24 14:01 | XMS_ITS | Clinical Summary ---
Author Organization [facility] Address [address] [facility] [place] [address] Care Team Providers Care Proc Tech Name Role Phone Emperatriz Carnes DO Unavailable Carlos Nuñez MD Unavailable [phone] Source Comments The following information is NOT included in Care Everywhere downloads:Psychiatric notes, ECG results, Cardiac Rehab notes, Pulmonary Function notes, data from [facility] (includes but not limited toPregnancy data,audiograms, eye exams, pre-surgical evaluation notes, well-child exam data).[facility] Allergies Active Allergy Reactions Criticality Noted Date [...] 01/25/20 23 Active Sodium Sulfate-Mag Sulfate-KCl (Sutab) 1388-084-708 MG TABS Take by mouth. 07/29/19 23 [...] Due Influenza, Injectable, MDCK, Quadrivalent, Preservative Free (KHA=120) 04/26/2018 Influenza, injectable, adjuv anted, quadrivalent, preservative free (XLJ=687) 05/10/2023,05/24/2022,05/21/2021,05/05 Influenza, injectable, high dose seasonal, trivalent, preservative free (XYV=631) 04/29/2019 Influenza, unspecified formu lation (CVX=88) 04/28/2021 [facility] SARS-COV-2 (COVID-19 ) vaccine, vector non-replicating, recombinant spike protein-Ad26, preservative free, 0.5 mL (YMA=088) 05/26/2021 Pfizer Monovalent (12+ yrs) SARS-COV-2 (COVID-19) vaccine, mRNA, spike protein, LNP, pres. free, 30 mcg/0.3mL dose (JIN=304) 06/09/2021,09/26/2020,09/05/2020 Pfizer Monovalent (12+ yrs) SARS-COV-2 (COVID-19) vaccine, mRNA, spike protein, LNP, pres. free, 30 mcg/0.3mL dose, art-sucrose (WDE=719) 12/16/2021 Pneumococcal conjugate 13 va lent (PCV13) (XHL=118) 08/18/2021 Pneumococcal conjugate 20 va lent (PCV20), polysaccharide GUC009 conjugate, adjuvant, PF (TQT=472) 05/24/2023 Social History Tobacco Use Types Packs/Day [...] How often do you attend chur or restorationist services? Never 03/27/2023 Do you belong to any clubs o r organizations such as amish groups, unions, fraternal or athletic groups, or [...] and heating? Not hard at all 03/27/2023 [facility] [place] [facility]at ional [facility] - Occupational Stress [...] place to sleep or slept in a fci (including now)? No 03/27/2023 Education Answer Date [...] - 116 mg/dL 12/28/2018 6:07 PM EDT [facility] Sodium 143 135 - 148 mmol/L 12/28/2018 6:07 PM EDT [facility] Potassium 3.9 3.3 - 5.3 mmol/L 12/28/2018 6:07 PM EDT [facility] Carbon Dioxide 27 21 - 30 mmol/L 12/28/2018 6:07 PM EDT [facility] Chloride 109 97 - 111 mmol/L 12/28/2018 6:07 PM EDT [facility] Blood Urea Nitrogen 13 8 - 22 mg/dL 12/28/2018 6:07 PM EDT [facility] Creatinine 0.72(L) 0.80 - 1.30 mg/dL 12/28/2018 6:07 PM EDT [facility] Calcium 9.6 8.4 - 10.4 mg/dL 12/28/2018 6:07 PM EDT [facility] Anion Gap 11 5 - 13 12/28/2018 6:07 PM EDT [facility] Estimated GFR (CKD-EPI) 98 >=60 mL/min/1.7 3sqm 12/28/2018 6:07 PM EDT [facility] Blood BLOOD SPECIMEN / Unknown 12/28/2018 3:41 PM EDT 12/28/2018 5:14 PM EDT Emperatriz Carnes DO [address] [facility] Final Result [facility] [address] [place] [id number] from Last 3 Months or Most Recently Relevant to Health Maintenance Insurance MEDICARE [employer] Care Teams Proc Tech Relationship Specialty Start Date End Date Emperatriz Carnes DO [address] [place] [address] Physician Electrophysiology 04/14/20 Carlos Nuñez MD [address] [place] [address] Physician Cardiac Electrophysiology 05/11/24
--- OUTSIDE RECORDS SUMMARY | 2025-03-24 14:01 | XMS_ITS | Clinical Summary ---
Author Organization [facility] Address [address] [place] [address] Care Team Providers Care Pickers Material Handlers Name Role Phone Unavailable Primary Care Provider [...]
--- NOTE | 2025-03-24 15:15 | PM.CN ---
Consult Note: HPI Data of Consult Patient: known to practice within the last 3 years Consult date: 03/24/25 Requesting Physician: Blessing Granda MD Primary Care Provider: Rocio Bagley MD Consult Narrative Reason for consult: right hip, right knee pain Narrative: 69yom who presents for assessment. notes persistence of right hip and knee pain. would like to proceed with right gtb injection. right knee xr reviewed, significant for osteoarthritis. has had steroid injections in the past. continues in physical therapy, as well as provider directed home exercise program. uses norco, baclofen prn. cc:: CC: Blessing Granda MD Review of Systems ROS Status of ROS 10 or more systems reviewed and unremarkable except as noted in history and below [facility] Medical History Atrial fibrillation ?I48.91 - Unspecified atrial fibrillation (ICD-10) Low back pain ?M54.50 - Low back pain, unspecified (ICD-10) Osteoarthritis ?M19.90 - Unspecified osteoarthritis, unspecified site (ICD-10) Colon cancer ?C18.9 - Malignant neoplasm of colon, unspecified (ICD-10) Obesity ?E66.9 - Obesity, unspecified (ICD-10) Kidney stone ?N20.0 - Calculus of kidney (ICD-10) Enlarged prostate ?N40.0 - Benign prostatic hyperplasia without lower urinary tract symptoms (ICD-10) Pulmonary embolism ?I26.99 - Other pulmonary embolism without acute cor pulmonale (ICD-10) Sleep apnea ?G47.30 - Sleep apnea, unspecified (ICD-10) High cholesterol ?E78.00 - Pure hypercholesterolemia, unspecified (ICD-10) Hypertension ?I10 - Essential (primary) hypertension (ICD-10) Surgical History S/P TURP ?Z90.79 - Acquired absence of other genital organ(s) (ICD-10) History of colon resection ?Z90.49 - Acquired absence of other specified parts of digestive tract (ICD-10) Social History Little interest or pleasure in doing things: not at all Feeling down, depressed, or hopeless: not at all Meds Home Medications and Allergies Home Medications ?Medication ?Instructions ?Recorded ?Confirmed ?Type atorvastatin 20 mg tablet 20 mg PO QDAY 12/22/22 12/16/24 History calcium carbonate 300 mg PO DAILY 12/22/22 12/16/24 History flecainide 100 mg tablet 100 mg PO Q12H 12/22/22 12/16/24 History hydrochlorothiazide 25 mg tablet 25 mg PO QDAY 12/22/22 12/16/24 History lisinopril 40 mg tablet 40 mg PO QDAY 12/22/22 12/16/24 History loratadine 10 mg tablet 10 mg PO DAILY 12/22/22 12/16/24 History metoprolol succinate 100 mg 100 mg PO QDAY 12/22/22 12/16/24 History tablet,extended release 24 hr multivitamin 1 tab PO DAILY 12/22/22 12/16/24 History olopatadine 0.1 % eye drops drp ophthalmic (eye) BID 12/22/22 History potassium chloride 20 mEq 20 meq PO BID 12/22/22 12/16/24 History tablet,extended release(part/cryst) (Klor-Con M) warfarin 5 mg tablet 5 mg PO QDAY 12/22/22 12/16/24 History gabapentin 300 mg capsule 900 mg PO BID 01/17/24 12/16/24 History baclofen 10 mg tablet 10 mg PO TID PRN pain 06/25/24 12/16/24 History hydrocodone 5 mg-acetaminophen 325 1 tab PO BID PRN pain #14 tabs 12/04/24 12/16/24 Rx mg tablet Allergies Allergy/AdvReac Type Severity Reaction Status Date / Time No Known Drug Allergies Allergy Verified 12/16/24 08:04 Exam Narrative Exam Narrative: Psych-alert and oriented x 3.? Attentive and appropriate, constitutionally normal, displays normal mood and affect per situation.? There are no obvious deficits in memory, reasoning, or intellect.? Skin-no obvious rashes, bruising, erythema noted to the patient's area of pain. Extremities- extremities are warm with minimal edema and palpable pulses. Hip-tenderness to palpation is noted over the right hip joint.? Pain is elicited with internal and external rotation of the hip.? Hip provocative maneuvers are positive and consistent with the patient's normal pain.? Knee-examination of the right knee reveals tenderness to palpation over the superior, inferior, lateral, and medial aspect of the knee.? Some swelling is noted without erythema. Pain is elicited with flexion and extension of the knee both actively and passively.? Some grinding is noted with these motions.? There is no notable ligamental laxity or instability. Coordination remains intact.? Gait remains antalgic. Assessment and Plan Assessment and Plan (1) Osteoarthritis of right knee: Qualifiers: Osteoarthritis type: primary Qualified Code(s): M17.11 - Unilateral primary osteoarthritis, right knee (2) Greater trochanteric bursitis: Qualifiers: Laterality: right Qualified Code(s): M70.61 - Trochanteric bursitis, right hip Plan 69yom who presents for assessment. in terms of right hip pain, will proceed with right gtb injection. in terms of right knee pain, given symptoms and imaging, will proceed with right genicular nerve block under fluoroscopic guidance with intention of proceeding to radiofrequency ablation. he is in agreement. meds reviewed, no changes. follow up after procedure. procedure: right greater trochanteric bursa injection medications: bupivacaine 0.25% 4cc, depomedrol 40mg I explained the details of the procedure to the patient including the risks, benefits and alternatives. We had an informed discussion and the patient verbalized understanding and signed the consent form. All questions were answered appropriately.? A time out was performed.? The skin overlying the right lateral hip was prepped with alcohol x3. A sterile syringe containing the above medication was attached to a 25 gauge, 3.5 inch needle under strict aseptic technique. The greater trochanter and point of tenderness was palpated. At this point, the needle was then advanced through the subcutaneous tissue down to os. The needle was withdrawn slightly and the contents of the syringe were gently injected without any resistance. The needle was removed and pressure was applied to the injection site to decrease the incidence of ecchymosis and hematoma formation.? A sterile bandage was applied. Post procedural instructions were given to the patient.
--- OUTSIDE RECORDS SUMMARY | 2025-03-24 18:07 | XMS_ITS | CCD ---
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 Name Role Phone PHYSICIAN, DEFAULT Unavailable Unavailable [...] Admitting Unavailable HALKER ., JEET Attending Unavailable WEIMAR, DR UNA Sofia Consulting Unavailable LIZARRAGA, DR [...] Provider Mariela Mosley APRN Attending Provider [phone] Donald Lizarraga Primary Care Unavailable Mariela Mosley Attending UnavailMariela Castillo Admitting UnavailPrasanth Singletary MD Unavailable [phone] Jesus Alberto JACKSON, Andrius Viera Attending Unavailable Jesus Alberto JACKSON, Andrius Vytpérez Attending Unavailable Jesus Alberto JACKSON, Andrius Vsonali Attending Unavailable Jesus Alberto JACKSON, Andrius Vytautfeliz Attending Unavailable Donald Lizarraga MD Primary Care Provider [phone] Merlyn Casillas CMA Attending Provider Unavaila fareed Granda MD, Blessing Attending Provider Donald Lizarraga MD Attending Provider Donald Lizarraga MD Primary Care Provider [phone] Peter Augsute DO Attending Provider [phone] Allergies Allergy Classification Reported Allergen(s) Allergy Type Date of Onset Reaction(s) Facility (17 sources) Other (Review Comments!); 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: [OTHER (REVIEW COMMENTS!)] Propensity to adverse reactions to drug 12-29-19 19 [facility] Decongestant Drug allergy 10-18-19 24 Unknown, [facility] (10 sources) DECONGESTANTS Propensity to adverse reactions 05-03-20 13 Unknown, [facility] Comment on above: Onset Date: 05/03/20 13 (3 sources) Allergies Reconciled Propensity to adverse reactions Unknown EXFO Other (3 sources) patient allergy list reviewed by nurse or physicia Propensity to adverse reactions 11-23-19 Comment:Done EXFO Other (1 source) No Known Medication Allergies; 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: [No Known Medication Allergies] Propensity to adverse reactions (disorder) [facility] Repository Medications Current Medications Medication Drug Class(es) [...] follow instructions per packaging and physician's handout, [facility]/pharmacy #[id number], 183.8, cm, 07/29/22 14:15:00 EST, Height/Length Dosing, [...] mouth. 01/24/2023 Active Sodium Sulfate-Mag Sulfate-KCl (Sutab) 9386-177-160 MG TABS (6 sources) Start: 07-29-2022 Sodium Sulfate -Mag Sulfate-KCl (Sutab) 9579-851-184 MG TABS Take by mouth. 07/29/2022 Active Start: 07-29-2022 Sodium Sulfate -Mag Sulfate-KCl (Sutab) 6216-414-050 MG TABS Take by mouth. 0 07/29/2022 [...] 5 mg-325 mg tablet 0 03/29/2023 Discontinued [id number] actuat albuterol 0.09 mg/actuat metered dose [...] cardiovascular exam , PAF (paroxysmal atrial fibrillation) (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; 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: [JAIL CURRNT USE 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] Onset: 12-07-2022 Episodic Other [...] aftercare (20 sources) Drug therapy finding; 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: [alf (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] Onset: 09-03-2020 Episodic [...] and Corynebacterium diphtheriae antigens (medicinal product); 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: [Jgxmhzqrbe-sdgqauq-v ertussis, combined [DTP] [DtaP]] Onset: 02-13-2014 Viral infection (1 source) COVID-19 Results Test Name Value Interpretation Reference Range Facility INR in Platelet poor plasma by Coagulation assayon 12-16-2024 INR Coag (PPP) [Relative time] 2.24 {INR} [facility] Comment on above: DESIRED INR:2.0-3.0 CONDITIONS NOT LISTED BELOW2.5-3.5 FOR PROSTHETIC HEART VALVE REPLACEMENT2.5-3.5 RECURRENT THROMBOSIS Prothrombin time (PT)on PT Coag (PPP) [Time] 21.9 s High 9.0-11.6 [facility] X-ray reportOrdered By: Luz Bryan on 05-26-2024 Study report [place] [address] XRay Report Signed Patient: Evangelist Ybarra MR#: [id number] : 1955 Acct:[id number] Age/Sex: 68 / M ADM Date: 4 Loc: [facility] Room: Type: [facility] Attending Dr: Mariela Mosely APRN Copies to: Mariela Mosley APRN~ Ordering [...] MD 05/26/24 1022 Signed By: 05/26/24 1023 [facility] Work Phone: XR chest 2V*on 05-26-2024 XR chest 2V* [place] [address] XRay Report Signed Patient: Evangelist Ybarra MR#: [id number] : 1955 Acct:[id number] Age/Sex: 68 / M ADM Date: 05/26/24 Loc: XDUC Room: Type: [facility] Attending Dr: 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 Mosley 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 Copies to: Mariela Mosley APRN Ordering Provider: [...] 1022 Signed By: 05/26/24 1023 Normal [facility] Influenza virus A and B and SARS-CoV-2 (COVID-19) RNA panel - Respiratory system specon 05-08-2024 Influenza virus A and B RNA and SARS-CoV-2 (COVID-19) N gene panel ANNIE+probe (Resp) Influenza virus A and B and SARS-CoV-2 (COVID-19) RNA panel - Respiratory system spec [facility] Laboratory - Microbiology an d Antimicrobial susceptibilityon 05-08-2024 SARS-CoV-2 (COVID-19) RNA ANNIE+probe Ql (Unsp spec) Negative [facility] No Panel Informationon 05-08 POC Influenza B (ANNIE) Negative [facility] INR in Platelet poor plasma by Coagulation assayon 04-29-2024 INR Coag (PPP) [Relative time] 2.42 {INR} [facility] Comment on above: DESIRED INR:2.0-3.0 CONDITIONS NOT LISTED BELOW2.5-3.5 FOR PROSTHETIC HEART VALVE REPLACEMENT2.5-3.5 RECURRENT THROMBOSIS INR Coag (PPP) [Relative time] INR in Platelet poor plasma by Coagulation assay [facility] Comment on above: DESIRED INR:2.0-3.0 CONDITIONS NOT LISTED BELOW2.5-3.5 FOR PROSTHETIC HEART VALVE REPLACEMENT2.5-3.5 RECURRENT THROMBOSIS Prothrombin time (PT)on 04-10 PT Coag (PPP) [Time] 23.5 s High 9.0-11.6 [facility] PT Coag (PPP) [Time] Prothrombin time (PT) High 9.0-11.6 [facility] Progress Noteson 04-15-2024 Purchasing Buyer Authentication Interface Message Text EP video visit [...] his last visit, he had lexiscan at [facility] on 09/2016 that showe no reversible [...] in 1 year Prior to your visit, [facility] shared information with you about [...] of patient Time-Based Billing Justifications: Charting in [facility] Patient visit (including performing a [...] 180 Tablet 3 Sodium Sulfate-Mag Sulfate-KCl (Sutab) [id number] MG TABS Take by mouth. AMLODIPINE BESYLATE [...] declined Stress: No Stress Concern Present (03/27/2023) [employer] - Occupational Stress Questionnaire Feeling of Stress : Not at all Social Connections: Moderately Integrated (03/27/2023) Social Connection and Isolation Panel [NHANES] Frequency of Communicatio (more content not included)... Normal [facility] Ambulatory Visit Summaryon 0 [...] Only if needed Where: [address] [place] [address] [phone] Medications What How Much When Instructions Unchanged [...] ? Ne (more content not included)... Normal [facility] Provider Letteron 01-23-2024 Provider Letter Provider Letter DONALD LIZARRAGA, [address] [place] [id number] Re: EVANGELIST YBARRA Date of : [address] ELHAM JACKSON, DONALD YBARRAEVANGELIST was evaluated at [facility] 01/30/2024 10:00:00 As this patient has been stable, they will be released back to your care. We request that you continue to check PSA annually for prostate cancer screening Should the patient develop new symptoms, worsening condition, or abnormal imaging/labs in the future, do not hesitate to refer them back. Thanks! Provider Signature: Cathie Hernandez PA-C Physician Mold Clamper [facility] [address] [place] [address] Marvin Aquino [facility] Urology Office/Clinic Noteon 01-23-2024 Urology Office/Clinic Note Urology Office/Clinic Note Chief Complaint 1 year follow up with PSA HPI Staff 68 year old patient presents today for a 1 year follow up with PSA. No recent PSA on [facility], TB, [facility], or [facility]. DX: BPH, ED [...] prn at prior OV pending clearance from battery mechanic but pt never filled script. Not a [...] GARCIA, CATHIE Ruano, URL Only if needed [address] [place] [address] [phone] Additional Instructions: Patient Education Erectile Dysfunction Documentation [...] - De (more content not included)... Normal [facility] Comment on above: Result Comment: Elec tronically [...] (Urine sed) [#/Area] 0-2 /HPF Normal 0-2/HPF [facility] UA Auto SS Glucose Test strip (U) [Mass/Vol] Negative (01/24/23 10:19 AM) Normal Negative [facility] UA Auto SS Hemoglobin Ql (U) Negative (01/24/23 10:19 AM) Normal Negative [facility] UA Auto SS Ketones (U) [Mass/Vol] Negative (01/24/23 10:19 AM) Normal Negative [facility] UA Auto SS [place].plasma/Lith ium.RBC (Bld) [Mass ratio] 0-3 /HPF Normal 0-3/HPF [facility] UA Auto SS Nitrite Ql (U) Negative (01/24/23 10:19 AM) Normal Negative [facility] UA Auto SS pH (U) 5.0 *NA* (01/24/23 10:19 AM) Invalid Interpretation Code 5.0 - 9.0 [facility] UA Auto SS Protein (U) [Mass/Vol] Negative (01/24/23 10:19 AM) Normal Negative [facility] UA Auto SS Specific gravity (U) [Rel density] >=1.030 *NA* (01/24/23 10:19 AM) Invalid Interpretation Code 1.005 - 1.030 [facility] UA Auto SS UA Spec Desc Random Urine (01/24/23 10:19 AM) Normal [facility] UA Auto SS Urobilinogen Qn (U) [id number] {Anne'U}/dL Normal 0.0 - 1.0 EU/dL [facility] UA Auto SS WBC Auto Ql (U) [...] UNA SEARS Date: 2022-11-10 09:46 Normal [facility] CBC AUTO DIFFon 2022 BASO # 0.0 103/ul Normal 0.0-0.1 [facility] Comment on above: Performed By: #### C BC #### [facility] [address] [place] [address] Dr. Jason Pearson Basophils/100 WBC (Bld) 0.7 % Normal 0.2-2.0 [facility] Comment on above: Performed By: #### C BC #### [facility] [address] [place] [address] Dr. Jason Pearson EO # 0.2 103/ul Normal 0.0-0.7 [facility] Comment on above: Performed By: #### C BC #### [facility] [address] [place] [address] Dr. Jason Pearson Eosinophils/100 WBC (Bld) 3.7 % Normal 0.9-7.0 [facility] Comment on above: Performed By: #### C BC #### [facility] [address] [place] [address] Dr. Jason Pearson Erythrocyte distribution width (RBC) [Ratio] 14.0 % Normal 11.0-15.0 [facility] Comment on above: Performed By: #### C BC #### [facility] [address] [place] [address] Dr. Jason Pearson Hematocrit (Bld) [Volume fraction] 41.0 % Critically low 42.0-54.0 [facility] Comment on above: Performed By: #### C BC #### [facility] [address] [place] [address] Dr. Jason Pearson Hemoglobin (Bld) [Mass/Vol] 13.8 g/dL Critically low 14.0-18.0 [facility] Comment on above: Performed By: #### C BC #### [facility] [address] [place] [address] Dr. Jason Pearson IG # 0.01 10e3/ul Normal 0.00-0.03 [facility] Comment on above: Performed By: #### C BC #### [facility] [address] [place] [address] Dr. Jason Pearson IG % 0.2 % Normal 0.0-0.5 [facility] Comment on above: Performed By: #### C BC #### [facility] [address] [place] [address] Dr. Jason Pearsno LYMPH # 1.3 103/ul Normal 1.2-3.8 [facility] Comment on above: Performed By: #### C BC #### [facility] [address] [place] [address] Dr. Jason Pearson Lymphocytes/100 WBC (Bld) 22.3 % Normal 20.5-60.0 [facility] Comment on above: Performed By: #### C BC #### [facility] [address] [place] [address] Dr. Jason Pearson MANUAL DIFF REQ NO Normal [facility] Comment on above: Performed By: #### C BC #### [facility] [address] [place] [address] Dr. Jason Pearson MCH (RBC) [Entitic mass] 32.6 pg Normal 25.9-34.0 [facility] Comment on above: Performed By: #### C BC #### [facility] [address] [place] [address] Dr. Jason Pearson MCHC (RBC) [Mass/Vol] 33.7 g/dL Normal 29.9-35.2 [facility] Comment on above: Performed By: #### C BC #### [facility] [address] [place] [address] Dr. Jason Pearson MCV (RBC) [Entitic vol] 96.9 fL Critically high 80.0-94.0 [facility] Comment on above: Performed By: #### C BC #### [facility] [address] [place] [address] Dr. Jason Pearson MONO # 0.6 103/ul Normal 0.3-0.8 [facility] Comment on above: Performed By: #### C BC #### [facility] [address] [address] [address] Jason Pearson Monocytes/100 WBC (Bld) 10.5 % Normal 1.7-12.0 [facility] Comment on above: Performed By: #### C BC #### [facility] [address] [address] [address] Jason Pearson NEUT # 3.7 103/ul Normal 1.4-6.5 [facility] Comment on above: Performed By: #### C BC #### [facility] [address] [address] [address] Jason Pearson Neutrophils/100 WBC (Bld) 62.6 % Normal 43.0-75.0 [facility] Comment on above: Performed By: #### C BC #### [facility] [address] [place] [address] Dr. Jason Pearson Platelet mean volume (Bld) [Entitic vol] 9.9 fL Normal 9.5-13.5 [facility] Comment on above: Performed By: #### C BC #### [facility] [address] [address] [address] Jason Pearson PLT 181 103/ul Normal 150-450 [facility] Comment on above: Performed By: #### C BC #### [facility] [address] [place] [address] Dr. Jason Pearson RBC 4.23 106/ul Critically low 4.70-6.10 [facility] Comment on above: Performed By: #### C BC #### [facility] [address] [address] [address] Jason Pearson WBC 5.9 103/ul Normal 4.0-11.0 [facility] Comment on above: Performed By: #### C BC #### [facility] [address] [place] [address] Dr. Jason Pearson LIPID PROFILEon 2022 CHOL-HDL RATIO NORM SEE BELOW Normal [facility] Comment on above: Result Comment: 3.3 - 4.4 LOW RISK 4.4 - 7.1 AVERAGE RISK 7.1 - 11.0 MODERATE RISK >11.0 HIGH RISK Performed By: #### C MP, LIPID ####[facility] [address] [id number]. Jason Pearson Cholesterol [Mass/Vol] 163 mg/dL Normal <=200 [facility] Comment on above: Performed By: #### C MP, LIPID ####[facility] [address] [place], [place] [address]Bp. Jason Pearson Cholesterol in HDL [Mass/Vol] 49 mg/dL Normal 40-60 [facility] Comment on above: Performed By: #### C MP, LIPID ####[facility] [address] [id number]. Jason Pearson Cholesterol in LDL [Mass/Vol] 74.6 mg/dL Normal [facility] Comment on above: Performed By: #### C MP, LIPID ####[facility] [address] [id number]. Deboraradha Michel Cholesterol.total/C holesterol in HDL [Mass ratio] 3.3 {ratio} Normal [facility] Comment on above: Performed By: #### C MP, LIPID ####[facility] [address] [id number]. Jason Pearson HDL NORMAL > or = 60 mg/dl - LO W CARDIOVASCULAR RISK <40 mg/dl - HIGH CARDIOVASCULAR RISK Normal [facility] Comment on above: Performed By: #### C MP, LIPID ####[facility] [address] [id number]. Jason Pearson LDL CALC NORMAL SEE BELOW Normal [facility] Comment on above: Result Comment: <100 mg/dl OPTIMAL 100 - 129 mg/dl NEAR OR ABOVE OPTIMAL 130 - 159 mg/dl BORDERLINE HIGH 160 - 189 mg/dl HIGH >190 mg/dl VERY HIGH Performed By: #### C MP, LIPID ####[facility] [address] [id number]. Jason Pearson Triglyceride [Mass/Vol] 197 mg/dL Critically high <=150 [facility] Comment on above: Performed By: #### C MP, LIPID ####[facility] [address] [place], [place] [address]AjDusty Pearson VLDL CALC 39.4 mg/dL Normal [facility] Comment on above: Performed By: #### C MP, LIPID ####[facility] [address] [place], [place] [address]JaDusty Pearson MICROALBUMIN, RAND URon mALB 1.3 mg/L Normal <=30.0 [facility] Comment on above: Performed By: #### M ALBR ####[facility] [address] [id number] Pearson PROF 14(COMP METB)on 023 Albumin [Mass/Vol] 3.7 g/dL Normal 3.4-5.0 [facility] Comment on above: Performed By: #### C MP, LIPID #### [facility] [address] [address] [address] Jason Pearson Albumin/Globulin [Mass ratio] 1.0 {ratio} Normal [facility] Comment on above: Performed By: #### C MP, LIPID #### [facility] [address] [address] [address] Jason Pearson ALP [Catalytic activity/Vol] 56 U/L Normal 46-116 [facility] Comment on above: Performed By: #### C MP, LIPID #### [facility] [address] [address] [address] Jason Pearson ALT [Catalytic activity/Vol] 43 U/L Normal 16-63 [facility] Comment on above: Performed By: #### C MP, LIPID #### [facility] [address] [address] [address] Jason Pearson Anion gap [Moles/Vol] 11.2 mmol/L Normal [facility] Comment on above: Performed By: #### C MP, LIPID #### [facility] [address] [address] [address] Jason Pearson AST [Catalytic activity/Vol] 24 U/L Normal 15-37 [facility] Comment on above: Performed By: #### C MP, LIPID #### [facility] [address] [address] [address] Jason Pearson Bilirubin [Mass/Vol] 0.9 mg/dL Normal 0.2-1.0 [facility] Comment on above: Performed By: #### C MP, LIPID #### [facility] [address] [address] [address] Jason Pearson Calcium [Mass/Vol] 9.6 mg/dL Normal 8.5-10.1 [facility] Comment on above: Performed By: #### C MP, LIPID #### [facility] [address] [address] [address] Jason Pearson Chloride [Moles/Vol] 106 mmol/L Normal 98-107 [facility] Comment on above: Performed By: #### C MP, LIPID #### [facility] [address] [place] [address] Dr. Jason Pearson CO2 [Moles/Vol] 30.1 mmol/L Normal 21.0-32.0 [facility] Comment on above: Performed By: #### C MP, LIPID #### [facility] [address] [address] [address] Jason Pearson Creatinine [Mass/Vol] 1.00 mg/dL Normal 0.70-1.30 [facility] Comment on above: Performed By: #### C MP, LIPID #### [facility] [address] [address] [address] Jason Pearson EGFR-AF CZECH >60 Normal >=60 [facility] Comment on above: Performed By: #### C MP, LIPID #### [facility] [address] [address] [address] Jason Pearson EGFR-NON AF CZECH >60 Normal >=60 [facility] Comment on above: Performed By: #### C MP, LIPID #### [facility] [address] [address] [address] Jason Pearson Globulin (S) [Mass/Vol] 3.6 g/dL Normal [facility] Comment on above: Performed By: #### C MP, LIPID #### [facility] [address] [address] [address] Jason Pearson Glucose [Mass/Vol] 110 mg/dL Critically high 74-106 [facility] Comment on above: Performed By: #### C MP, LIPID #### [facility] [address] [address] [address] Jason Pearson Potassium [Moles/Vol] 4.3 mmol/L Normal 3.5-5.1 [facility] Comment on above: Performed By: #### C MP, LIPID #### [facility] [address] [address] [address] Jason Pearson Protein [Mass/Vol] 7.3 g/dL Normal 6.4-8.2 [facility] Comment on above: Performed By: #### C MP, LIPID #### [facility] [address] [address] [address] Jason Pearson Sodium [Moles/Vol] 143 mmol/L Normal 136-145 [facility] Comment on above: Performed By: #### C MP, LIPID #### [facility] [address] [address] [address] Jason Pearson Urea nitrogen [Mass/Vol] 15.0 mg/dL Normal 7.0-18.0 [facility] Comment on above: Performed By: #### C MP, LIPID #### [facility] [address] [address] [address] Jason Pearson Urea nitrogen/Creatinine [Mass ratio] 15.0 mg/mg Normal [facility] Comment on above: Performed By: #### C MP, LIPID #### [facility] [address] [address] [address] Jason Pearson PROTIMEon 06-28-2022 INR Coag (PPP) [Relative time] 1.11 {INR} Normal [facility] Comment on above: Performed By: #### P T ####[facility] [address] [address]Dr. Jason Pearson INR GUIDELINES SEE BELOW Normal [facility] Comment on above: Result Comment: KOFI RED INR: 2.0 - 3.0 CONDITIONS NOT LISTED BELOW 2.5 - 3.5 FOR PROSTHETIC HEART VALVE REPLACEMENT 2.5 - 3.5 RECURRENT THROMBOSIS Performed By: #### P T ####[facility] [address] [address]Dr. Jason Pearson PT Coag (PPP) [Time] 11.9 s Critically high 9.0-11.6 [facility] Comment on above: Performed By: #### P T ####[facility] [address] [address]Dr. Jason Pearson PROTIMEon 03-22-2022 INR Coag (PPP) [Relative time] 1.32 {INR} Normal [facility] Comment on above: Performed By: #### P T #### [facility] [address] [place] [address] Dr. Jason Pearson INR GUIDELINES SEE BELOW Normal [facility] Comment on above: Result Comment: KOFI RED INR: 2.0 - 3.0 CONDITIONS NOT LISTED BELOW 2.5 - 3.5 FOR PROSTHETIC HEART VALVE REPLACEMENT 2.5 - 3.5 RECURRENT THROMBOSIS Performed By: #### P T #### [facility] [address] [address] [address] Jason Pearson PT Coag (PPP) [Time] 14.0 s Critically high 9.0-11.6 [facility] Comment on above: Performed By: #### P T #### [facility] [address] [address] [address] Jason Pearson PROTIMEon 02-07-2022 INR Coag (PPP) [Relative time] 1.08 {INR} Normal [facility] Comment on above: Performed By: #### P T #### [facility] [address] [address] [address] Jason Pearson INR GUIDELINES SEE BELOW Normal [facility] Comment on above: Result Comment: KOFI RED INR: 2.0 - 3.0 CONDITIONS NOT LISTED BELOW 2.5 - 3.5 FOR PROSTHETIC HEART VALVE REPLACEMENT 2.5 - 3.5 RECURRENT THROMBOSIS Performed By: #### P T #### [facility] [facility] [address] [place] [address] Dr. Jason Pearson PT Coag (PPP) [Time] 11.6 s Normal 9.0-11.6 [facility] Comment on above: Performed By: #### P T #### [facility] [address] [address] [address] Jason Pearson XR HIP RT INJon [...] RUPERT MOON Date: 2022-02-07 11:09 Normal [facility] Initial Visit (Gastroenterol ogy)on 03-28-2018 Initial Visit [...] from the patient and documented on the [facility] health history questionnaire. Pertinent positives [...] MG Oral Tablet; TAKE 1 TABLET DAILY;Therapy: (Recorded:[id number]) to Recorded Dispense: 0 Days ; #: Sufficient Tablet; Refill: 0; KP = N; Record; Last Updated By: Toyin Angeles; 03/28/2018 9:14:26 AM Flecainide Acetate 100 MG Oral Tablet; TAKE 1 TABLET EVERY 12 HOURS DAILY;Therapy: (Recorded:[id number]) to Recorded Dispense: 0 Days ; #: Sufficient Tablet; Refill: 0; KP = N; Record; Last Updated By: Toyin Angeles; 03/28/2018 9:14:26 AM HydroCHLOROthiazide 25 MG Oral Tablet; TAKE 1 TABLET DAILY;Therapy: (Recorded:[id number]) to Recorded Dispense: 0 Days ; #: Sufficient Tablet; Refill: 0; KP = N; Record; Last Updated By: Toyin Angeles; 03/28/2018 9:14:26 AM Imodium A-D CAPS;Therapy: (Recorded:[id number]) to Recorded Dispense: 0 Days ; #: Sufficient CAPS; Refill: 0; KP = N; Record; Last Updated By: Toyin Angeles; 03/28/2018 9:14:26 AM Klor-Con M20 20 MEQ Oral Tablet Extended Release; TAKE 2 TABLETS TWICE DAILY;Therapy: (Recorded:[id number]) to Recorded Dispense: 0 Days ; #: Sufficient Tablet Extended Release; Refill: 0; KP = N; Record; Last Updated By: Toyin Angeles; 03/28/2018 9:14:26 AM Lisinopril 40 MG Oral Tablet; TAKE 1 TABLET DAILY;Therapy: (Recorded:[id number]) to Recorded Dispense: 0 Days ; #: Sufficient Tablet; Refill: 0; KP = N; Record; Last Updated By: Toyin Angeles; 03/28/2018 9:14:26 AM Loratadine 10 MG Oral Tablet; TAKE 1 TABLET DAILY;Therapy: (Recorded:[id number]) to Recorded Dispense: 0 Days ; #: Sufficient Tablet; Refill: 0; KP = N; Record; Last Updated By: Toyin Angeles; 03/28/2018 9:14:26 AM Metoprolol Tartrate 100 MG Oral Tablet; TAKE 1 TABLET DAILY;Therapy: (Recorded:[id number]) to Recorded Dispense: 0 Days ; #: Sufficient Tablet; Refill: 0; KP = N; Record; Last Updated By: Toyin Angeles; 03/28/2018 9:14:26 AM Multivitamins TABS;Therapy: (Recorded:95Lsx0666) to Recorded Dispense: 0 Days ; #: Sufficient TABS; Refill: 0; KP = N; Record; Last Updated By: Toyin Angeles; 03/28/2018 9:14:26 AM Tamsulosin HCl - 0.4 MG Oral Capsule;Therapy: (Recorded:[id number]) to Recorded Dispense: 0 Days ; #: Sufficient Capsule; Refill: 0; KP = N; Record; Last Updated By: Toyin Angeles; 03/28/2018 9:14:26 AM Vitamin B-12 ER 1500 MCG Oral Tablet Extended Release;Therapy: (Recorded:[id number]) to Recorded Dispense: 0 Days ; #: Sufficient TBCR; Refill: 0; KP = N; Record; Last Updated By: Toyin Angeles; 03/28/2018 9:14:26 AM Vitamin D3 2000 UNIT Oral Tablet;Therapy: (Recorded:[id number]) to Recorded Dispense: 0 Days ; #: Sufficient Tablet; Refill: 0; KP = N; Record; Last Updated By: Toyin Angeles; 03/28/2018 9:14:26 AM Warfarin Sodium 5 MG Oral Tablet; TAKE 1 TABLET DAILY;Therapy: (Recorded:[id number]) to Recorded Dispense: 0 Days ; #: Sufficient Tablet; Refill: 0; KP = N; Record; Last Updated By: Toyin Angeles; 03/28/2018 9:14:26 AM Vitals Vital Signs Recorded: 28Mar2018 09:12AMHeart Pbti36Ijlrkdroltb67Wqpaczgv50 1Gupkwpyte09Kryvja1 ft 2 vfBsumne340 lb 6 ozBMI Oduingdwsk64.52BSA Calculated2.67 Physical ExamConstitutional General appearance: In no [...] diarrhea; KP = N; Verified Transmission to [facility]; Last Updated By: [employer]; 03/28/2018 9:44:38 AM Provider ImpressionsSubmucosal duodenal lesion [...] OF NONCARBONATED BEVERAGE AND SWALLOW ONCE DAILY;Therapy: [id number] to (Evaluate:81Drr2827) Requested for: 72Gcp4423; LastRx:28Mar2018 OrderedFlecainide Acetate 100 MG Oral Tablet; TAKE 1 TABLET EVERY 12 HOURS DAILY;Therapy: (Recorded:[id number]) to RecordedHydroCHLOROthiazide 25 MG Oral Tablet; TAKE 1 TABLET DAILY;Therapy: (Recorded:[id number]) to RecordedImodium A-D CAPS (Loperamide HCl);Therapy: (Recorded:80Svq9092) to RecordedKlor-Con M20 20 MEQ Oral Tablet Extended Release; TAKE 2 TABLETS TWICE DAILY;Therapy: (Recorded:[id number]) to RecordedLisinopril 40 MG Oral Tablet; TAKE 1 TABLET DAILY;Therapy: (Recorded:[id number]) to RecordedLoratadine 10 MG Oral Tablet; TAKE 1 TABLET DAILY;Therapy: (Recorded:[id number]) to RecordedMetoprolol Tartrate 100 MG Oral Tablet; TAKE 1 TABLET DAILY;Therapy: (Recorded:[id number]) to RecordedMultivitamins TABS;Therapy: (Recorded:[id number]) to RecordedTamsulosin HCl - 0.4 MG Oral Capsule;Therapy: (Recorded:[id number]) to RecordedVitamin B-12 ER 1500 MCG Oral Tablet Extended Release;Therapy: (Recorded:[id number]) to RecordedVitamin D3 2000 UNIT Oral Tablet;Therapy: (Recorded:[id number]) to RecordedWarfarin Sodium 5 MG Oral Tablet; TAKE 1 TABLET DAILY;Therapy: (Recorded:[id number]) to Recorded Signatures Electronically signed by : Devin Greer DO; Mar 28 2018 9:51AM EST (Author) Normal [employer] Vital Signs Date Time Vital Sign Value Performing Clinician Facility 03-03-2025 10:51-0400 Body height 187.96 cm Donald Lizarraga MD Work Phone: [facility] 03-03-2025 [id number] Body mass index (BMI) [Ratio] 38.1 kg/m2 Donald Lizarraga MD Work Phone: [facility] 03-03-2025 10:51-0400 Body weight 134.7 kg Donald Lizarraga MD Work Phone: [facility] 02-12-2025 09:22-0400 Body height 187.96 cm Donald Lizarraga MD Work Phone: [facility] 02-12-2025 09:22-0400 Body mass index (BMI) [Ratio] 38.1 kg/m2 Donald Lizarraga MD Work Phone: [facility] 02-12-2025 09:22-0400 Body weight 134.71 kg Donald Lizarraga MD Work Phone: [facility] 02-12-2025 09:22-0400 Diastolic blood pressure 77 mm[Hg] Donald Lizarraga MD Work Phone: [facility] 02-12-2025 09:22-0400 Heart rate 61 /min Donald Lizarraga MD Work Phone: [facility] 02-12-2025 09:22-0400 Systolic blood pressure 128 mm[Hg] Donald Lizarraga MD Work Phone: [facility] 05-29-2024 09:52-0500 Body height 187.96 cm Donald Lizarraga MD Work Phone: [facility] 05-29-2024 09:52-0500 Body mass index (BMI) [Ratio] 38.4 kg/m2 Donald Lizarraga MD Work Phone: [facility] 05-29-2024 09:52-0500 Body temperature 98.5 [degF] Donald Lizarraga MD Work Phone: [facility] 05-29-2024 09:52-0500 Body weight 135.62 kg Donald Lizarraga MD Work Phone: [facility] 05-29-2024 09:52-0500 Diastolic blood pressure 81 mm[Hg] Donald Lizarraga MD Work Phone: [facility] 05-29-2024 09:52-0500 Heart rate 73 /min Donald Lizarraga MD Work Phone: [facility] 05-29-2024 09:52-0500 SaO2% (BldA) [Mass fraction] 98 % Donald Lizarraga MD Work Phone: [facility] 05-29-2024 09:52-0500 Systolic blood pressure 137 mm[Hg] Donald Lizarraga MD Work Phone: [facility] 05-26-2024 09:18-0500 Body height 187.96 cm Donald Lizarraga MD Work Phone: [facility] 05-26-2024 09:18-0500 Body mass index (BMI) [Ratio] 38.5 kg/m2 Donald Lizarraga MD Work Phone: [facility] 05-26-2024 09:18-0500 Body temperature 98.1 [degF] Donald Lizarraga MD Work Phone: [facility] 05-26-2024 09:18-0500 Body weight 136.13 kg Donald Lizarraga MD Work Phone: [facility] 05-26-2024 09:18-0500 Diastolic blood pressure 77 mm[Hg] Donald Lizarraga MD Work Phone: [facility] 05-26-2024 09:18-0500 Heart rate 73 /min Donald Lizarraga MD Work Phone: [facility] 05-26-2024 09:18-0500 Respiratory rate 18 /min Donald Lizarraga MD Work Phone: [facility] 05-26-2024 09:18-0500 SaO2% (BldA) [Mass fraction] 96 % Donald Lizarraga MD Work Phone: [facility] 05-26-2024 09:18-0500 Systolic blood pressure 127 mm[Hg] Donald Lizarraga MD Work Phone: [facility] 05-08-2024 09:24-0400 Body height 187.96 cm [facility] 05-08-2024 09:24-0400 Body mass index (BMI) [Ratio] 38.8 kg/m2 [facility] 05-08-2024 09:24-0400 Body temperature 98 [degF] [facility] 05-08-2024 09:24-0400 Body weight 137.15 kg [facility] 05-08-2024 09:24-0400 Diastolic blood pressure 73 mm[Hg] [facility] 05-08-2024 09:24-0400 Heart rate 70 /min [facility] 05-08-2024 09:24-0400 Respiratory rate 18 /min [facility] 05-08-2024 09:24-0400 SaO2% (BldA) [Mass fraction] 98 % [facility] 05-08-2024 09:24-0400 Systolic blood pressure 167 mm[Hg] [facility] 01-23-2024 14:11-0400 Blood Pressure Location CATHIEHUNTER HERNANDEZ [facility] 01-23-2024 14:11-0400 Body temperature 97.88 [degF] CATHIE TIANA [facility] 01-23-2024 14:11-0400 Diastolic blood pressure 74 mm[Hg] CATHIE TIANA [facility] 01-23-2024 14:11-0400 Heart rate 67 /min CATHIE TIANA [facility] 01-23-2024 14:11-0400 Respiratory rate 16 /min CATHIE TIANA [facility] 01-23-2024 14:11-0400 Systolic blood pressure 138 mm[Hg] CATHIE TIANA [facility] 10-19-2023 10:19-0400 Body height 187.96 cm [facility] 10-19-2023 10:19-0400 Body mass index (BMI) [Ratio] 40.1 kg/m2 [facility] 10-19-2023 10:190400 Body weight 141.63 kg [facility] 10-19-2023 10:19-0400 Diastolic blood pressure 84 mm[Hg] [facility] 10-19-2023 10:19-0400 Heart rate 71 /min [facility] 10-19-2023 10:19-0400 SaO2% (BldA) [Mass fraction] 98 % [facility] 10-19-2023 10:19-0400 Systolic blood pressure 132 mm[Hg] [facility] 07-13-2023 15:30-0500 Body height 187.96 cm Donald Lizarraga Other [employer] [facility] Other 07-13-2023 15:30-0500 Body mass index (BMI) [Ratio] 40.18 kg/m2 Donald Lizarraga Other [employer] Other 07-13-2023 15:30-0500 Body weight 141.98 kg Donald Lizarraga Other [employer] Other 07-13-2023 15:30-0500 Diastolic blood pressure 86 mm[Hg] Donald Lizarraga Other [employer] Other 07-13-2023 15:30-0500 Systolic blood pressure 142 mm[Hg] Donald Lizarraga Other [employer] Other 01-24-2023 10:00-0400 Blood Pressure Location CATHIE HERNANDEZ [facility] 01-24-2023 10:00-0400 Diastolic blood pressure 80 mm[Hg] CATHIE AZEVEDORY [facility] 01-24-2023 10:00-0400 Heart rate 72 /min CATHIE TIANA [facility] 01-24-2023 10:00-0400 Respiratory rate 16 /min CATHIE TIANA [facility] 01-24-2023 10:00-0400 Systolic blood pressure 130 mm[Hg] CATHIE TIANA [facility] 10-06-2022 10:17-0400 Diastolic blood pressure 78 mm[Hg] Daigle SALAM [facility] 10-06-2022 10:17-0400 Heart rate 69 /min Daigle SALAM [facility] 10-06-2022 10:17-0400 Respiratory rate 16 /min Daigle SALAM [facility] 10-06-2022 10:17-0400 SaO2% (BldA) [Mass fraction] 99 % Daigle SALAM [facility] 10-06-2022 10:17-0400 Systolic blood pressure 122 mm[Hg] Daigle SALAM [facility] 10-06-2022 10:05-0400 Diastolic blood pressure 76 mm[Hg] Daigle SALAM [facility] 10-06-2022 10:05-0400 Heart rate 67 /min Daigle SALAM [facility] 10-06-2022 10:05-0400 Respiratory rate 18 /min Daigle SALAM [facility] 10-06-2022 10:05-0400 SaO2% (BldA) [Mass fraction] 99 % Daigle SALAM [facility] 10-06-2022 10:05-0400 Systolic blood pressure 135 mm[Hg] Daigle SALAM [facility] 10-06-2022 10:00-0400 Diastolic blood pressure 70 mm[Hg] Daigle SALAM [facility] 10-06-2022 10:00-0400 Heart rate 66 /min Daigle SALAM [facility] 10-06-2022 10:00-0400 Systolic blood pressure 134 mm[Hg] Daigle SALAM [facility] 10-06-2022 09:55-0400 Respiratory rate 16 /min Daigle SALAM [facility] 10-06-2022 09:52-0400 Body temperature 97.7 [degF] Daigle SALAM [facility] 10-06-2022 09:40-0400 Respiratory rate 1 /min Daigle SALAM [facility] 10-06-2022 08:21-0400 Blood Pressure Location Daigle SALAM [facility] 10-06-2022 08:21-0400 Body temperature 97.88 [degF] Daigle SALAM [facility] 07-29-2022 14:15-0500 Diastolic blood pressure 88 mm[Hg] Elicia Hipolito [facility] 07-29-2022 14:15-0500 Mean blood pressure 105 mm[Hg] Elicia Hipolito [facility] 07-29-2022 14:15-0500 Systolic blood pressure 138 mm[Hg] Elicia Hipolito [facility] 07-29-2022 14:11-0500 Blood Pressure Location Elicia Hipolito [facility] 07-29-2022 14:11-0500 Body temperature 97.88 [degF] Elicia Mcmillan [facility] 07-29-2022 14:11-0500 Diastolic blood pressure 87 mm[Hg] Elicia Mcmillan [facility] 07-29-2022 14:11-0500 Heart rate 77 /min Elicia Mcmillan [facility] 07-29-2022 14:11-0500 Systolic blood pressure 147 mm[Hg] Elicia Mcmillan [facility] 07-26-2022 10:45-0500 Body height 187.96 cm Donald Lizarraga Other [employer] Other 07-26-2022 10:45-0500 Body mass index (BMI) [Ratio] 41.47 kg/m2 Donald Lizarraga Other [employer] Other 07-26-2022 10:45-0500 Body weight 146.51 kg Donald Lizarraga Other [employer] Other 07-26-2022 10:45-0500 Diastolic blood pressure 84 mm[Hg] Donald Lizarraga Other [employer] Other 07-26-2022 10:45-0500 SaO2% (BldA) [Mass fraction] 97 % Donald Lizarraga Other [employer] Other 07-26-2022 10:45-0500 Systolic blood pressure 142 mm[Hg] Donald Lizarraga Other [employer] Other 10-27-2021 12:02-0400 Blood Pressure Location CATHIE HERNANDEZ [facility] 10-27-2021 12:02-0400 Diastolic blood pressure 78 mm[Hg] CATHIE HERNANDEZ [facility] 10-27-2021 12:02-0400 Heart rate 77 /min CATHIE HERNANDEZ [facility] 10-27-2021 12:02-0400 Systolic blood pressure 141 mm[Hg] CATHIE HERNANDEZ [facility] Encounters Encounter Date Encounter Type Care Provider Facility Start: 03-03-2025 End: 03-03-2025 ambulatory Donald Lizarraga MD Work Phone: [facility] Work Phone: Start: 03-03-2025 End: 03-03-2025 Patient encounter procedure Peter Auguste DO -[facility] Work Phone: Start: 02-12-2025 End: 02-12-2025 ambulatory Donald Lizarraga MD Work Phone: [facility] Work Phone: Start: 02-12-2025 End: 02-12-2025 Patient encounter procedure Donald Lizarraga MD -[facility] Work Phone: Start: 12-23-2024 End: 12-23-2024 ambulatory Blessing Granda MD Facility:[facility] Start: 12-16-2024 Non-patient / Non-visit Blessing cui MD -[facility] Work Phone: Start: 12-16-2024 End: 12-16-2024 ambulatory Blessing Granda MD Facility:[facility] Start: 12-14-2024 End: 12-14-2024 Letter encounter Emperatriz Carnes DO Work Phone: [facility] Start: 11-28-2024 Non-patient / Non-visit Merlyn Mesa [facility] Work Phone: Start: 11-25-2024 End: 11-25-2024 ambulatory Blessing Granda MD Facility:[facility] Start: 11-06-2024 End: 11-06-2024 Refill Prasanth Perez MD Work Phone: [facility] Comment on above: Refill Start: 05-29-2024 End: 05-29-2024 ambulatory Donald Lizarraga MD Work Phone: [facility] Work Phone: Start: 05-29-2024 End: 05-29-2024 Patient encounter procedure Donald Lizarraga MD Work Phone: [facility] Physician [facility] Work Phone: Start: 05-26-2024 End: 05-26-2024 ambulatory Donald Lizarraga MD Work Phone: [facility] Work Phone: Start: 05-26-2024 End: 05-26-2024 Patient encounter procedure Donald Lizarraga MD Work Phone: [facility] Physician [facility] Work Phone: Start: 05-08-2024 End: 05-08-2024 ambulatory [facility] Work Phone: Start: 05-08-2024 End: 05-08-2024 Patient encounter procedure [facility] Physician [facility] Work Phone: Start: 04-29-2024 Non-patient / Non-visit [facility] Physician [facility] Work Phone: Start: 04-29-2024 End: 04-29-2024 ambulatory Belssing Granda MD Facility:[facility] Start: 04-15-2024 End: 04-15-2024 Office outpatient visit 25 minutes Prasanth Perez MD Work Phone: [facility] Comment on above: PAF (paroxysmal atri al fibrillation) (HCC) (Primary Dx) Start: 04-15-2024 End: 04-15-2024 ambulatory PRASANTH PEREZ Facility:[facility] Start: 01-23-2024 End: 01-23-2024 ambulatory CATHIE HERNANDEZ Facility:[facility] Start: 01-23-2024 End: 01-23-2024 Patient encounter procedure CATHIE HERNANDEZ [facility] Start: 12-27-2023 End: 12-28-2023 Patient encounter status Emperatrizquique Carnes DO Work Phone: [facility] Start: 12-27-2023 End: 12-28-2023 Refill Emperatriz Carnes DO Work Phone: [facility] Comment on above: Refill Start: 10-19-2023 End: 10-19-2023 ambulatory [facility] Work Phone: Start: 10-19-2023 End: 10-19-2023 Patient encounter procedure [facility] Physician [facility] Work Phone: Start: 09-07-2023 Non-patient / Non-visit [facility] Physician [facility] Work Phone: Start: 07-20-2023 End: 07-20-2023 ambulatory Donald Lizarraga Other [employer] Other Start: 07-20-2023 Telephone encounter Donald Lizarraga [facility] Start: 07-13-2023 End: 07-13-2023 ambulatory Donald Lizarraga Other [employer] Other Start: 07-13-2023 Office outpatient vi sit [address] [facility] Start: 04-04-2023 Patient encounter status [...] 03-28-2023 End: 03-28-2023 ambulatory Donald Lizarraga Other [employer] Other Start: 03-28-2023 Telephone encounter Donald Lizarraga [facility] Start: 03-18-2023 Letter encounter Emperatriz [...] End: 01-24-2023 Lab Drop off CATHIE HERNANDEZ [facility] Start: 01-24-2023 End: 01-24-2023 Patient encounter procedure CATHIE HERNANDEZ [facility] Start: 11-10-2022 End: 11-11-2022 ambulatory JEET HERNÁNDEZ . Facility: Start: 11-07-2022 End: 12-07-[address] DONALD LIZARRAGA Facility:[facility] Start: 10-13-2022 ambulatory JAMIEE GUYMIPATHY . Facility:[facility] Start: 10-11-2022 (Televisit) Televisit Donald Lizarraga [facility] Start: 10-11-2022 End: 10-11-2022 ambulatory Donald Lizarraga Other [employer] Other Start: 10-10-2022 End: 11-04-2022 ambulatory WOMACK H FAWWAD Facility:[facility] Start: 10-06-2022 End: 10-06-2022 Patient encounter procedure Daigle FRED [facility] Start: 2022 Telephone encounter Donald Lizarraga [facility] Start: 2022 End: 09-09-[address] DONALD LIZARRAGA [employer] Other Start: 09-07-2022 End: 10-07-2022 ambulatory WOMACK H FAWWAD Facility:[facility] Start: 08-10-2022 End: 09-07-2022 ambulatory WOMACK H FAWWAD Facility:[facility] Start: 07-29-2022 End: 07-29-2022 Patient encounter procedure Elicia Isauro Hipolito [facility] Start: 07-26-2022 End: 07-26-2022 ambulatory Donald Lizarraga Other [employer] Other Start: 07-26-2022 Office outpatient vi sit [address] [facility] Start: 07-20-2022 End: 07-21-2022 ambulatory [...] encounter status Emperatriz Karim DO Work Phone: [facility] Start: 02-27-2022 Refill Emperatriz Karim DO Work Phone: [facility] Comment on above: Refill Start: 02-07-2022 End: 02-07-[address] DONALD LIZARRAGA Facility:[facility] Start: 02-07-2022 End: 03-09-[address] DONALD LIZARRAGA Facility:[facility] Start: 01-15-2022 Refill Emperatriz Karim DO Work Phone: [facility] Comment on above: Refill Start: 01-07-2022 End: 02-04-[address] DONALD LIZARRAGA Facility:[facility] Start: 11-24-2021 Patient encounter status Emperatriz Karim DO Work Phone: [facility] Start: 11-24-2021 Refill Emperatriz Karim DO Work Phone: [facility] Comment on above: Refill Start: 11-24-2021 Refill Emperatriz Karim DO Work Phone: [facility] Comment on above: Refill Start: 10-27-2021 End: 10-27-2021 Patient encounter procedure CATIHE HERNANDEZ [facility] Start: 03-28-2018 Patient encounter Devin Greer Fa cility:[facility] Start: 04-24-2017 End: 04-25-2017 Ambulatory DEFAULT PHYSICIAN Facility:[facility] Start: 03-03-2017 End: 03-04-2017 Ambulatory DEFAULT PHYSICIAN Facility:[facility] Procedures Date Procedure Procedure Detail Performing Clinician Start: 05-26-2024 Plain chest X-ray Donald Lizarraga MD Work Phone: Start: 10-06-2022 Colonoscopy Oxana IBARRA Start: [address] JADEN VILLA . Comment on above: Performed By: #### PSASC #### [facility] [address] [place] [address] Dr. Jason Pearson Start: 04-23-2020 Transurethral prostatectomy [...] panel Cholesterol [facility] Start: 02-12-2025 Patient referral [facility] Work Phone: Start: 03-10-2024 COVID-19 Vaccine ( season) COVID-19 Vaccine () [facility] Start: 03-10-2024 COVID-19 Vaccine ( season) COVID-19 Vaccine () [facility] Start: 03-10-2024 Influenza vaccination Influenza Vaccine (#1) [facility] Start: 04-09-2023 Influenza vaccination Influenza Vaccine (#1) [facility] Start: 03-29-2023 End: 03-29-2023 Telemedicine consultation with patient 03/29/2023 4:20 PM EDT Telemedicine [facility] [address] [place] [address] Emperatriz Carnes DO [address] [place] [address] [facility] Start: 03-10-2023 COVID-19 Vaccine ( [...] Screening for malignant neoplasm of colon [facility] Patient Education Low back pain in adults [facility] Work Phone: Patient referral [facility] Work Phone: Immunizations Immunization Date Immunization Notes Care Provider Fa cility 05-24-2023 Pneumococcal conjuga te 20 valent (PCV20), polysaccharide PVM978 conjugate, adjuvant, PF (BWL=332) [employer] Work Phone: [facility] 05-10-2023 influenza virus vaccine, unspecified formulation CATHIE TIANA [facility] 05-10-2023 Influenza, seasonal vaccine, quadrivalent, adjuvanted, 0.5mL dose, preservative free (XOW=768) Emperatriz [employer] Work Phone: [facility] 05-24-2022 influenza virus vaccine, unspecified formulation Elicia Zamarripaz [facility] 05-24-2022 Influenza, seasonal vaccine, quadrivalent, adjuvanted, 0.5mL dose, preservative free (MWI=201) [employer] Work Phone: [facility] 12-16-2021 Pfizer Monovalent (1 2+ yrs) SARS-COV-2 (COVID-19) vaccine, mRNA, spike protein, LNP, pres. free, 30 mcg/0.3mL dose, art-sucrose (IRT=999) [employer] Work Phone: [facility] 12-16-2021 SARS-CoV-2 mRNA (hjxtgwqqmpa-hfvz-kubsn se) vaccine Elicia Garciametz [facility] 08-18-2021 pneumococcal conjuga te vaccine, 13 valent Emperatriz [employer] Work Phone: [facility] 06-09-2021 SARS-CoV-2 (COVID-19 ) mRNA BNT-162b2 vax Eliciagurwinder GarciaHipolito [facility] 05-26-2021 SARS-CoV-2 (COVID-19 ) Ad26 vaccine, recombinant CATHIE HERNANDEZ [facility] 05-21-2021 Influenza, seasonal vaccine, quadrivalent, adjuvanted, 0.5mL dose, preservative free (IGI=853) Emperatriz Carnes DO [facility]2021 influenza virus vaccine, unspecified formulation Emperatrizquique Carnes DO Work Phone: [facility] 04-28-2021 influenza virus vaccine, unspecified formulation CATHIE HERNANDEZ [facility] 04-28-2021 SARS-CoV-2 (COVID-19 ) Ad26 vaccine, recombinant CATHIE HERNANDEZ [facility] 09-26-2020 Pfizer SARS-COV-2 (COVID-19) vaccine, age 12+ yrs, mRNA, spike protein, LNP, preservative free, 30 mcg/0.3mL dose (EYI=551) Emperatriz Carnes DO Work Phone: [facility] Comment on above: Result Comment: 2022: [id number] 09-05-2020 Pfizer SARS-COV-2 (COVID-19) vaccine, age 12+ yrs, mRNA, spike protein, LNP, preservative free, 30 mcg/0.3mL dose (XZV=720) Emperatriz Carnes DO Work Phone: [facility] Comment on above: Result Comment: 2022: [id number] 05-10-2020 influenza virus vaccine, unspecified formulation CATHIE HERNANDEZ [facility] 05-05-2020 influenza virus vaccine, unspecified formulation Elicia Garciametz [facility] 05-05-2020 Influenza, seasonal vaccine, quadrivalent, adjuvanted, 0.5mL dose, preservative free (NDV=483) Emperatriz Karim DO Work Phone: [facility] 04-29-2019 influenza virus vaccine, unspecified formulation Elicia Mcmillan [facility] 04-29-2019 influenza, high dose seasonal, preservative-free Emperatriz Karim DO Work Phone: [facility] 04-26-2018 influenza virus vaccine, unspecified formulation Elicia Mcmillan [facility] 04-26-2018 Influenza, injectabl e, Madin [place] [facility], preservative free, quadrivalent Emperatriz Karim DO Work Phone: [facility] 04-19-2016 influenza virus vaccine, split virus (incl. purified surface antigen) Donald Lizarraga Other [facility] Other 04-19-2016 influenza virus vaccine, unspecified formulation [facility] 04-19-2016 pneumococcal polysaccharide vaccine, 23 valent Donald Lizarraga Other [facility] 06-23-2014 influenza virus vaccine, split virus (incl. purified surface antigen) Donald Lizarraga Other [facility] Other 06-23-2014 influenza virus vaccine, unspecified formulation [facility] 02-13-2014 diphtheria, tetanus toxoids and acellular pertussis vaccine, unspecified formulation Donald Lizarraga Other [facility] Payers Date Payer Category Payer Commercial Indemnity [facility] [id number] 2022 Unknown 2018 Medicare [id number]. [id number] 2018 Medicare FFS MEDICARE [id number]. [id number] 1959 Medicare [id number] 2.16.840.1.863951.19 1959 Unknown [id number] 2.16.840.1.751466.19 1953 Unknown [id number] 2.16.840.1.852630.3.579.2.5 1953 Unknown [id number] 2.16.840.1.649841.3.579.2.5 1953 Unknown [id number] 2.16.840.1.258247.3.579.2.5 1953 Unknown [id number] 2.16.840.1.508664.3.579.2.5 1953 Unknown [id number] 2.16.840.1.989950.3.579.2.5 1953 Unknown [id number] 2.16.840.1.213567.3.579.2.5 1953 Unknown [id number] 2.16.840.1.740466.3.579.2.5 1953 Unknown [id number] 2.16.840.1.083417.3.579.2.5 93 1953 Unknown [id number] 2.16.840.1.391671.3.579.2.5 1953 Unknown [id number] 2.16.840.1.046206.3.579.2.5 93 1953 Unknown [id number] 2.16.840.1.795060.3.579.2.5 1953 Unknown [id number] 2.16.840.1.798666.3.579.2.5 93 1953 Unknown [id number] 2.16.840.1.091457.3.579.2.5 1953 Unknown [id number] 2.16.840.1.532544.3.579.2.5 1953 Unknown [id number] 2.16.840.1.368613.3.579.2.5 1953 Unknown [id number] 2.16.840.1.953658.3.579.2.5 1953 Unknown [id number] 2.16.840.1.227068.3.579.2.5 1953 Unknown [id number] 2.16.840.1.681432.3.579.2.5 1953 Unknown [id number] 2.16.840.1.960498.3.579.2.5 1953 Unknown [id number] 2.16.840.1.355938.3.579.2.5 1953 Unknown [id number] 2.16.840.1.849480.3.579.2.5 1953 Unknown [id number] 2.16.840.1.900718.3.579.2.5 1953 Unknown [id number] 2.16.840.1.575757.3.579.2.5 1953 Unknown [id number] 2.16.840.1.986909.3.579.2.7 27 1953 Unknown [id number] 2.16.840.1.208678.3.579.2.7 32 1953 Unknown [id number] 2.16.840.1.055337.3.579.2.1 96 1953 Unknown [id number] 2.16.840.1.244561.3.579.2.1 96 1953 Unknown [id number] 2.16.840.1.139695.3.579.2.1 96 1953 Unknown [id number] 2.16.840.1.444152.3.579.2.1 96 Unknown [id number] Unknown Romel BC/BS [id number] Social History Date Type Detail Facility Start: 09-03-2020 End: 05-26-2024 Tobacco smoking status Never smoked tobacco (finding) [facility] Tobacco smoking status Never [facility] Start: 03-27-2023 Sex Assigned At Male [facility] Start: 12-28-2018 Tobacco use and exposure Smokeless tobacco non-user [facility] Start: 12-28-2018 End: 03-27-2023 Alcohol intake Ex-drinker (finding) [facility] Start: 1955 Sex Assigned At Not on file [facility] Start: 1955 Sex Assigned At Male [facility] Start: 03-27-2023 History of Social function [facility] Within the last year , have you been afraid of your partner or ex-partner? No [facility] Do you belong to any clubs or organizations such as congregational groups, unions, fraternal or athletic groups, or school groups? Yes [facility] Are you now , , , , never or living with a partner? [facility] Do you feel stress - tense, [...] Start: 08-09-2018 End: 05-26-2024 Sex Male (finding) [facility] Start: 03-27-2023 Details of drug misuse behavior Has never misused drugs (situation) [facility] Functional Status Date Assessment Result Facility 01-23-2024 Functional Status N/A [facility] 01-24-2023 Functional Status N/A 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 [facility] Work Phone: 1(428) 405-652510-30-2024 Evaluation note* Diagnosis Onset Date Resolution Status Admit Date Bronchitis acute May 08, 2024 9:18am Cough noneactive May 26, 2024 9:07am [facility] Work Phone: 1(569) 960-719610-07-2024 History of Present illness Narrative* Prasanth Perez [...] his last visit, he had lexiscan at [facility] on 09/2016 that showe no reversible [...] in 1 year Prior to your visit, [facility] shared information with you about [...] 180 Tablet 3 Sodium Sulfate-Mag Sulfate-KCl (Sutab) 5109-443-070 MG TABS Take by mouth. AMLODIPINE BESYLATE [...] declined Stress: No Stress Concern Present (03/27/2023) [employer] - Occupational Stress Questionnaire Feeling of Stress : Not at all Social Connections: Moderately Integrated (03/27/2023) Social Connection and Isolation Panel [NHANES] Frequency of Communication with Friends and Family: More than three times a week Frequency of Social Gatherings with Friends and Family: Twice a week Attends Cheondoism Services: Never Active Member of Clubs or Organizations: Yes Attends Club or Organization Meetings: More than 4 times per year Marital Status: Intimate Partner Violence: Not At Risk (03/27/2023) Humiliation, Afraid, Rape, and Kick questionnaire Fear of Current or Ex-Partner: No Emotionally Abused: No Physically Abused: No Sexually Abused: No No family history on file. documented in this [id number] Hospital Discharge instructions Patient Education 01/23/2024 14:28:31 [...] Follow these instructions at home: Medicines Take fzdh-qqp-btgwstr and prescription medicines only as told by [...] provider. Document Revised: 09/22/2021 Document Reviewed: 09/22/2021 D[employer]Drop Patient Education 2022 [employer]. Follow Up Care 01/24/2023 10:37:20 With:TIANA GARCIA, CATHIE Ruano, URL Address: [address] [place] [address] [phone] When: only if needed [facility] [employer] 07-16-2024 NotePatient Education Urology Erectile Dysfunction Erectile [...] these instructions at home: Medicines ? Take ydqw-nyp-plmxsxp and prescription medicines only as told by [...] nicotine or tobacco. 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 Last televisit- 08/2020- He had to ER on 05/22/20 when he had pain with a blood clot- needing to stop his coumadin for a short period of time. He felt like he has been in sinus rhythm on his self checks. He was on Cygshxqjgh289 mg BID and Lopressor 100 mg BID. Since patient last saw me, he had TURP done- no further hematuria or urgency. PSA has been stable. Colonoscopy was normal per patient. No melena etc. ALLERGIES: Allergies Allergen Reactions Other (Review Comments!) MEDICATIONS: Current Outpatient Medications Medication Sig Dispense Refill Sodium Sulfate-Mag Sulfate-KCl (Sutab) 2943-790-876 MG TABS Take by mouth. AMLODIPINE BESYLATE [...] refused Stress: No Stress Concern Present (03/27/2023) [employer] - Occupational Stress Questionnaire Feeling of Stress : Not at all Social Connections: Moderately Integrated (03/27/2023) Social Connection and Isolation Panel [NHANES] Frequency of Communication with Friends and Family: More than three times a week Frequency of Social Gatherings with Friends and Family: Twice a week Attends Cheondoism Services: Never Active Member of Clubs or [...] Assessment/Plan: Persistent atrial fibrillation (HCC) (Primary Diagnosis) [035108] Anticoagulated [703302] JAVED on CPAP [988773] Patient doing well overall as far as [...] Electrophysiology 03/29/23 4:52 PM documented in this [id number] Telephone encounter Note* Telephone Encounter - Crystal Putnam RN - 02/17/2023 9:17 AM EDT LVM for pt that new generic Rx (Toprol XL) was sent over to [facility]. [id number] Miscellaneous Notes* Telephone Encounter - Crystal Putnam RN - 02/17/2023 9:17 AM EDT LVM for pt that new generic Rx (Toprol XL) was sent over to [facility]. * Telephone Encounter - Dexter Heather Norberto - 02/16/2023 9:38 AM EDT [employer] [facility] is calling wanting to know if they can dispense Metoprolol SUCC- ER 100 mg instead ofthe Toprol XL 100 mg, pt's insurance will only cover the generic brand. Please contact [phone] use Re:[phone]. Thank you documented in this [id number] Telephone encounter Note* Telephone Encounter - Aundrea Davis PharmD - 02/16/2023 3:00 PM EDT Patient called stating the original prescription that was sent had a KP for Toprol XL 100mg which is not covered. Please send over generic Metoprolol ER Succinate 100mg. Thank you! [id number] Miscellaneous Notes* Telephone Encounter - Aundrea Davis PharmD - 02/16/2023 3:00 PM EDT Patient called stating the original prescription that was sent had a KP for Toprol XL 100mg which is not covered. Please send over generic Metoprolol ER Succinate 100mg. Thank you! documented in this [id number] Telephone encounter Note* Telephone Encounter - Heather Renteria - 02/16/2023 9:38 AM EDT [facility] is calling wanting to know if they can dispense Metoprolol SUCC- ER 100 mg instead ofthe Toprol XL 100 mg, pt's insurance will only cover the generic brand. Please contact [phone] use Re:[phone]. Thank you J. Hilburn Work Phone: [phone]) 584-442407-18-2023 Hospital Discharge instructions Patient Education 01/24/2023 10:34:12 [...] Follow these instructions at home: Medicines Take yhiq-ehu-fobojqs and prescription medicines only as told by [...] provider. Document Revised: 09/22/2021 Document Reviewed: 09/22/2021 DripDrop Patient Education 2022 [employer]. Follow Up Care 10/27/2021 12:15:55 With:TIANA GARCIA, CATHIE Ruano, URL Address: [address] [place] [address] When:Within 1 Year(s) [facility] 04-04-2023 Evaluation note* Encounter Date Diagnosis [...] I48.91) stable. 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 [facility] Other 03-30-2023 Evaluation + Plan noteExtracted from: Title:KRISSY post op Author:Daljit Gooden MD Date:10/06/22 Plan Transfer/Discharge: Transfer/Discharge Discharge when meets criteria ( To home ). Extracted from: Title:KRISSY GA Author:Daljit Gooden MD Date:10/06/22 Plan [place] [employer] Anesthesiologists (ASA) physical status classification: Class III. Anesthetic Preoperative Plan: Anesthesia General. Future Appointments Appointment Date:01/25/2023 10:00:00 AM Scheduled Provider:Erica Chua MD Location:[facility] Appointment Type:URO Office Visit [facility]03-30-2023 Hospital Discharge instructions Patient Education 10/06/2022 10:00:07 Colonoscopy, Care After Surgery Salam (CUSTOM) Colonoscopy Care After Surgery Please read the instructions outlined below and refer to this sheet in the next few weeks. These discharge instructions provide you with general information on caring for yourself [facility] Your doctor may also give you specific [...] 03/22/2005 Document Revised: 10/11/2018 Document Reviewed: 10/11/2018 DripDrop Patient Education 2020 [employer]. 10/06/2022 10:00:07 Hemorrhoids, Quhj-wt-Fmhd Hemorrhoids Hemorrhoids are swollen veins that may [...] 3 times a day. General instructions Take ksec-hjb-varndma and prescription medicines only as told by [...] 04/04/2009 Document Revised: 07/04/2019 Document Reviewed: 11/15/2018 DripDrop Patient Education 2020 [employer]. Follow Up Care 07/29/2022 15:02:48 With:Oxana IBARRA Address: [address] [place] [address] Business (1) When: Unknown Comments:Call for any problems. [facility]01-20-2023 Hospital Discharge instructions Patient Education 07/29/2022 [...] including vitamins, herbs, eye drops, creams, and beta-qwe-ighapfn medicines. Any problems you or family members [...] 06/23/2001 Document Revised: 04/18/2018 Document Reviewed: 09/06/2016 DripDrop Patient Education 2019 [employer]. Follow Up Care 07/05/2022 09:47:30 With:Elicia Mcmillan CNP Address: When:1 to 2 weeks Comments:Following colonoscopy. [facility] 01-17-2023 Evaluation note* Encounter [...] way. Continue follow-up with cardiology as scheduled. [facility] Other 01-11-2023 NoteCONSULTATION CONSULTATION DATE: 07/20/2022 HISTORY [...] in three months' time unless otherwise indicated.[facility] 07-20-2022 NoteCONSULTATION PROCEDURE DATE: 07/20/2022 PREOPERATIVE DIAGNOSIS: [...] fan-like pattern. 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 He states that such activity has [...] for re-evaluation. Patient agrees to this plan.[facility] [id number] NoteCONSULTATION CONSULTATION DATE: 03/03/2022 This is a 17-rokh-prsijrbma returning to clinic for a 3-month follow-up. [...] be followed up in the office following.[facility] [id number] Telephone encounter Note* Telephone Encounter - Erica Beckett - 03/01/2022 11:40 AM EDT Patient has not been seen by this specialist in more than 1 year. Please contact patient to schedule office visit. Thank you [id number] Miscellaneous Notes* Telephone Encounter - Erica Beckett - 03/01/2022 11:40 AM EDT Patient has not been seen by this specialist in more than 1 year. Please contact patient to schedule office visit. Thank you documented in this [id number] Telephone encounter Note* Telephone Encounter - Irina Nguyen - 01/18/2022 7:23 AM EDT Last visit with Cardiology (Emperatriz Carnes) on 09/03/2020 Requested Prescriptions Pending Prescriptions Disp Refills metoprolol (TOPROL-XL) 100 mg XL tablet [Pharmacy Med Name: METOPROLOL SUCCINATE ER TABS 100MG] 90 Tablet 3 Sig: TAKE 1 TABLET DAILY No PCP on file No PCP on file [id number] Miscellaneous Notes* Telephone Encounter - Irina Nguyen - 01/18/2022 7:23 AM EDT Last visit with Cardiology (Emperatriz Carnes) on 09/03/2020 Requested Prescriptions Pending Prescriptions Disp Refills metoprolol (TOPROL-XL) 100 mg XL tablet [Pharmacy Med Name: METOPROLOL SUCCINATE ER TABS 100MG] 90 Tablet 3 Sig: TAKE 1 TABLET DAILY No PCP on file No PCP on file documented in this [id number] Telephone encounter Note* Telephone Encounter - Anirudh Gonzalez RPh - 11/29/2021 3:11 PM EDT Pt called back, will talk to his [facility] to get refill [facility] Work Phone: 1([phone]) 489-471705-23-2022 Miscellaneous Notes* Telephone Encounter - Anirudh Gonzalez RPh - 11/29/2021 3:11 PM EDT Pt called back, will talk to his [facility] to get refill * Telephone Encounter - Asia Laguna RN - 11/29/2021 2:52 PM EDT Left message for pt to return call to [facility] at [phone] 2nd attempt * Telephone Encounter - Cathie Whitley RN - 11/26/2021 2:46 PM EDT Left message for patient to please call back. 1st attempt * Telephone Encounter - Anirudh Gonzalez RPh - 11/25/2021 9:37 AM EDT [facility] Staff, Please contact pt re the following issue. Per 09/03/21 note pt goes to [facility] , they should refill, will deny Thanks! * Telephone Encounter - Tamiko Rodriguez PharmD - 11/24/2021 4:09 PM EDT Requested Prescriptions Pending Prescriptions Disp Refills warfarin (COUMADIN) 5 MG tablet 90 Tablet 0 Sig: Take 1 Tablet by mouth daily. No PCP on file No PCP on file documented in this [id number] Telephone encounter Note* Telephone Encounter - Asia Laguna RN - 11/29/2021 2:52 PM EDT Left message for pt to return call to [facility] at [phone] 2nd attempt [facility] Work Phone: 1(239) 932-756005-20-2022 Telephone encounter Note* Telephone Encounter - Cathie Whitley RN - 11/26/2021 2:46 PM EDT Left message for patient to please call back. 1st attempt [id number] Telephone encounter Note* Telephone Encounter - Anirudh Gonzalez RPh - 11/25/2021 9:37 AM EDT [facility] Staff, Please contact pt re the following issue. Per 09/03/21 note pt goes to [facility] , they should refill, will deny Thanks! [id number] Telephone encounter Note* Telephone Encounter - Tamiko Rodriguez PharmD - 11/24/2021 4:09 PM EDT Requested Prescriptions Pending Prescriptions Disp Refills warfarin (COUMADIN) 5 MG tablet 90 Tablet 0 Sig: Take 1 Tablet by mouth daily. No PCP on file No PCP on file [facility] Work Phone: 1(677) 682-120705-18-2022 Miscellaneous Notes* Telephone Encounter - Tamiko Rodriguez [...] [Pharmacy Med Name: POTASSIUM CHLORIDE ER (DISP) [id number]] 180 Tablet 3 Sig: TAKE 1 TABLET TWICE A DAY Refused Prescriptions Disp Refills warfarin (COUMADIN) 5 MG tablet [Pharmacy Med Name: WARFARIN TABS 5MG] 90 Tablet 3 Sig: TAKE 1 TABLET DAILY (INR: 2.33) No PCP on file No PCP on file documented in this encounterMetroHealthEvaluation + Plan note Future Appointments Appointment Date:11/01/2022 09:45:00 AM Scheduled Provider:Min Tristan Jr., MD Location:[facility] Appointment Type:URO Office Visit Diagnostic Tests Pending * PSA Total 10/27/[address] [facility] evaluation + Plan note Future Appointments Appointment Date:10/06/2022 09:00:00 AM Scheduled Provider: Location:[facility] Appointment Type:Surgery FT Appointment Date:11/01/2022 09:45:00 AM Scheduled Provider:Min Tristan Jr., MD Location:[facility] Appointment Type:URO Office Visit [facility] Evaluation + Plan note Future Appointments Appointment Date:01/30/2024 10:00:00 AM Scheduled Provider:CATHIE HERNANDEZ PA-C Location:[facility] Appointment Type:URO Office Visit [facility] evaluation + Plan note Future Appointments Appointment Date:01/30/2024 10:00:00 AM Scheduled Provider:CATHIE HERNANDEZ PA-C Location:[facility] Appointment Type:URO Office Visit Diagnostic Tests Pending * [facility] (paroxysmal atrial fibrillation) [...] present documented in this encounter [facility] Other Evaluation note* Diagnosis Persistent atrial fibrillation [...] in this encounter [facility] noteNo assessment information [facility] Work Phone: Evaluation note* Diagnosis PAF [...] note* Diagnosis Onset Date Resolution Status Bronchitis [facility] Work Phone: Evaluation note* Diagnosis Onset Date Resolution Status Admit Date A-fib acute February 12 9:16am Bilateral primary osteoarthr itis of hip acute February 12, 2025 9:16am Bilateral primary osteoarthr itis of knee acute February 12, 2025 9:16am Lumbar pain acute February 12 9:16am Medicare annual wellness vis it, subsequent acute February 12, 2025 9:16am JAVED on CPAP acute February 12 9:16am [facility] Work Phone: History general Narrative - [...] Hospitalization History No Hospitalization histo ry information [facility] Other Hospital course Narrative No data available for this section [facility] Hospital Discharge instructions No data available for this section [facility] Hospital Discharge instructionsAmbulatory Orders* Referral to Orthopedic Surgery Location: None Selected [facility] Work Phone: Progress note No data available for this section [facility] Summary Purpose Family History [...] section and content) DATE CREATED AUTHOR 01/02/2018 [facility] DATE CREATED AUTHOR AUTHOR'S ORGANIZ ATION 04/24/2018 [facility] DATE CREATED AUTHOR AUTHOR'S ORGANIZ ATION 05/06/2018 [facility] DATE CREATED AUTHOR AUTHOR'S ORGANIZ ATION 12/16/2022 [facility] DATE CREATED AUTHOR AUTHOR'S ORGANIZ ATION [facility]/25/2024 [facility] DATE CREATED AUTHOR AUTHOR'S ORGANIZ ATION 04/15/2024 [facility] DATE CREATED AUTHOR AUTHOR'S ORGANIZ ATION 05/28/2024 [facility] DATE CREATED AUTHOR AUTHOR'S ORGANIZ ATION 02/08/2025 [facility] Reason for Visit (unrecogniz ed section and content) Reason Comments Refill Reason Onset Date Comments Refill 11/24/2021 Reason Onset Date Comments Refill 02/14/2023 Reason Onset Date Comments Question about medication 02/16/2023 Reason Onset Date Comments Refill 02/16/2023 Reason Comments Atrial fibrillation/flutter Reason Comments New patient, to establish relationship Reason Onset Date Comments Refill 11/06/2024 Care Teams (unrecognized sec tion and content) 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 Start Date End Date Emperatriz Carnes DO [address] [place] [address] Physician Electrophysiology 04/14/20 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 Start Date End Date Emperatriz Carnes DO [address] [place] [address] Physician Electrophysiology 04/14/20 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 Start Date End Date Emperatriz Carnes DO [address] [place] [address] Physician Electrophysiology 04/14/20 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 Start Date End Date RodolfoSa betsyDO quique [address] [place] [address] [place] [address] Physician Electrophysiology 04/14/20 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 Start Date End Date Emperatriz Carnes DO [address] [place] [address] [place] [address] Physician Electrophysiology 04/14/20 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 Start Date End Date Emperatriz Carnes, DO [address] [place] [address] Physician Electrophysiology 04/14/20 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 Start Date End Date Emperatriz Carnes, DO [address] [place] [address] Physician Electrophysiology 04/14/20 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 Start Date End Date Emperatriz Carnes, DO [address] [place] [address] Physician Electrophysiology 04/14/20 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 Start Date End Date Emperatriz Carnes, DO [address] [place] [id number] Physician Electrophysiology 04/14/20 Team Status: Active Member [...] October 19, 2023 End: October 19, 2023 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 Start Date End Date Emperatriz Carnes, DO [address] [place] [address] Physician Electrophysiology 04/14/20 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 Start Date End Date Emperatriz Carnes, DO [address] [place] [address] Physician Electrophysiology 04/14/20 Team Status: Active Member [...] May 29, 2024 End: May 29, 2024 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 Start Date End Date Emperatriz Carnes DO [address] [place] [id number] Physician Electrophysiology 04/14/20 Prasanth Perez MD [address] [place] [address] [place] [address] Physician Cardiac Electrophysiology 05/11/24 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 Start Date End Date Emperatriz Carnes DO [address] [place] [address] Physician Electrophysiology 04/14/20 Prasanth Perez MD [address] [place] [address] Physician Cardiac Electrophysiology 05/11/24 Team Status: Active [...] BE BASED ON THE PRIMARY CLINICAL RECORDS. [employer] provides no warranty or guarantee of the accuracy or completeness of information in this document.
== END 2025-03-24 14:00 | disposition home or self-care (01) ==
LOC: PM 13:59
PROVIDERS: PCP Family Medicine; Visit Provider Anesthesiology
DX: M17.11 Unilateral primary osteoarthritis, right knee (principal); M70.61 Trochanteric bursitis, right hip
CPT/HCPCS: 20610; G0463; J0665; J1010

== ENCOUNTER 2025-04-09 04:35 | Outpatient (RCR) | payer MEDICARE, SELFPAY | END 2025-05-09 23:59 | disposition home or self-care (01) | LOC: MM 04:35 | PROVIDERS: PCP Family Medicine; Visit Provider Internal Medicine | DX: Z51.81 Encounter for therapeutic drug level monitoring (principal); Z79.01 Long term (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 | CPT/HCPCS: 85610; G0463 ==

== ENCOUNTER 2025-04-14 06:53 | Day surgery (SDC) | payer MEDICARE, SELFPAY ==
--- OUTSIDE RECORDS SUMMARY | 2025-04-14 06:56 | XMS_ITS | CCD ---
Author Organization [facility] Care Team Providers Care Cotton Header Name Role Phone PHYSICIAN, DEFAULT Unavailable Unavailable [...] MASON .MARIELA Consulting Unavailable VILLA ., DR JADNE Rodriguez Admitting Unavailable VILLA ., DR JADEN [...] Rochelle vailable LAKSHMIPATHY ., NARENDRANATH Attending Rochelle vailaMARIELA Varghese Consulting Unavailable DR DONALD LIZARRAGA Primary Care Unavailable DR DONALD LIZARRAGA Primary Care Unavailable SHAIKH Gurwinder FARMER Attending Unavailable SHAIKH Gurwinder FARMER Admitting Unavailable Karim DO, Emperatriz Unavailable Karim DO, Emperatriz Unavailable CATHIE HERNANDEZ Attending Unavailable PRASANTH PEREZ Attending Unavailable PROVIDER, UNKNOWN Admitting Unavailable Donald Lizarraga MD Primary Care Provider [phone] Mariela Mosley APRN Attending Provider Donald Lizarraga Primary Care Unavailable Mariela Mosley Attending UnavailMariela Castillo Admitting Unavailabl Prasanth Villafuerte MD Unavailable Donald Lizarraga MD Primary Care Provider Merlyn Casillas CMA Attending Provider Unavaila ble Jesus Alberto JACKSON, Andrius Attending Provider Donald Lizarraga MD Attending Provider Donald Lizarraga MD Primary Care Provider Peter Auguste DO Attending Provider Jesus Alberto JACKSON, Andrius Aylin Attending Unavailable Jesus Alberto JACKSON, Andrius Vytautfeliz Attending Unavailable Jesus Alberto JACKSON, Andrius Vytautfeliz Attending Unavailable Jesus Alberto JACKSON, Andrius Vytautfeliz Attending Unavailable Jesus Alberto JACKSON, Andrius Vytautfeliz Attending Unavailable Allergies Allergy Classification Reported Allergen(s) Allergy Type Date of Onset Reaction(s) Facility (18 sources) Other (Review Comments!); 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: [OTHER (REVIEW COMMENTS!)] Propensity to adverse reactions to drug [facility] Dec[facility]est[facility] Drug allergy 10-18-19 24 Unknown, [facility] (10 sources) DECONGESTANTS Propensity to adverse reactions 05-03-20 13 Unknown, [facility] Comment on above: Onset Date: 05/03/20 13 (3 sources) Allergies Reconciled Propensity to adverse reactions Unknown [facility] Other (3 sources) patient allergy list reviewed by nurse or physicia Propensity to adverse reactions 11-23-19 Comment:Done [facility] Other (1 source) No Known Medication Allergies; 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: [No Known Medication Allergies] Propensity to adverse reactions (disorder) [facility] Repository Medications Current Medications Medication [...] cardiovascular exam , PAF (paroxysmal atrial fibrillation) , Anticoagulated , JAVED on CPAP , [...] with drug therapy Start: 11-19-2018 End: 02-19-2024 hydrochlorothiazide (HYDRODI URIL) 25 MG tablet Indications: Preop cardiovascular exam , PAF (paroxysmal atrial fibrillation) , Anticoagulated , JAVED on CPAP , [...] cardiovascular exam , PAF (paroxysmal atrial fibrillation) , Anticoagulated , JAVED on CPAP , [...] cardiovascular exam , PAF (paroxysmal atrial fibrillation) , Anticoagulated , JAVED on CPAP , [...] follow instructions per packaging and physician's handout, [facility]/pharmacy #[id number], 183.8, cm, 07/29/22 14:15:00 EST, Height/Length Dosing, [...] tablet (20 sources) Start: 10-19-2023 End: 09-27-2025 take 1 tablet by mouth twice daily potassium chloride SA (Klor-Con M20) 20 MEQ controlled release tablet Indications: PAF (paroxysmal atrial fibrillation) , Anticoagulated , Preop cardiovascular exam , JAVED on CPAP , Obesity, unspecified class, unspecified obesity type, unspecified whether serious comorbidity present Take 1 Tablet by mouth 2 times daily. 180 Tablet 3 09/27/2024 09/27/2025 Active Start: 04-05-2023 End: 07-04-2023 Potassium Chloride (Klor-Con [...] cardiovascular exam , PAF (paroxysmal atrial fibrillation) , Anticoagulated , JAVED on CPAP , [...] 2023 12:00am sildenafil 25 mg oral tablet (9 sources) Phosphodiesterase 5 Inhibitor Start: 01-24-2023 sildenafil citrate (VIAGRA) 25 MG tablet Take 25 mg by mouth. 01/24/2023 Active Sodium Sulfate-Mag Sulfate-KCl (Sutab) 7750-060-759 MG TABS (7 sources) Start: 07-29-2022 Sodium Sulfate -Mag Sulfate-KCl (Sutab) 2033-767-196 MG TABS Take by mouth. 07/29/2022 Active Start: 07-29-2022 Sodium Sulfate -Mag Sulfate-KCl (Sutab) 5051-854-434 MG TABS Take by mouth. 0 07/29/2022 [...] orally; Note: Source Status: Taking; Provider: Elham Cahn ( ) Start: 07-29-2022 warfarin Refil ls(s) 0, Blood Thinner Start Date: 07/29/22 Status: Ordered Start: 07-29-2022 warfarin Refil ls(s) 0 Start Date: 07/29/22 Status: Ordered Start: 09-03-2020 End: 04-02-2025 warfarin (COUMADIN) 5 MG tab let Indications: PAF (paroxysmal atrial fibrillation) , Anticoagulated , Preop cardiovascular exam , JAVED on CPAP , Obesity, unspecified class, unspecified obesity type, unspecified whether serious comorbidity present TAKE ONE TO ONE AND ONE-HALF TABLETS DAILY OR DIRECTED BY MEDICATION MANAGEMENT CLINIC 120 Tablet 3 04/02/2025 Active Completed/Discontinued Medications Medication Drug Class(es) Dates [...] 5 mg-325 mg tablet 0 03/29/2023 Discontinued [id number] 200 actuat albuterol 0.09 mg/actuat metered dose [...] 2024 9:20am amLODIPine 10 mg oral tablet (20 sources) Dihydropyridine Calcium Channel Yadiel Start: 10-18-2023 [...] capsule Discontinued 100 MG PO Twice daily 20 01May 08, 2024 12:00am May 26, 2024 10:21am [...] cardiovascular exam , PAF (paroxysmal atrial fibrillation) , Anticoagulated , JAVED on CPAP , [...] 20 mg tablet Discontinued 0 PO Daily 05 18May 26, 2024 1:00am February 12, 2025 9:31am Take 2 tabs x 3 days, take 1 tab x 3 days, take 1/2 tab x 3 days orally daily; Start: 05-08-2024 End: 05-26-2024 take 1 tablet by mouth once daily Prednisone 50 mg tablet Discontinued 50 MG PO Daily 11 11May 08, 2024 12:00am May 26, 2024 10:20am [...] aftercare (20 sources) Drug therapy finding; 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: [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] Onset: 09-03-2020 Episodic Other aftercare (1 source) skilled nursing (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; 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: [DETENTION CURRNT USE 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] Onset: 12-07-2022 Episodic Other [...] [Cough] 05-26-2024 Episodic Other male genital disorders (10 sources) Male erectile dysfunction, unspecified; 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: [Erectile [...] Episodic Other nutritional; endocrine; and metabolic disorders (7 sources) Obesity; 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: [Obesity, unspecified] Chronic Other [...] pulmonale] Onset: 05-02-2016 Episodic Residual codes; unclassified (13 sources) Sleep apnea; 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: [Sleep apnea, unspecified] [...] te Episodic/Chronic Cancer of rectum and anus (8 sources) History of malignant neoplasm of rectum; [...] Onset: 07-10-2016 04-16-2020 Episodic Residual codes; unclassified (18 sources) Family history of cancer of colon; 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: [Family hx of colon cancer] Onset: 03-29-2023 07-29-2022 Episodic Unclassified (1 source) LOW BACK PAIN, UNSPECIFIED; 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: [LOW BACK PAIN, UNSPECIFIED] Onset: 03-22-2022 Unclassified (3 sources) Vaccine product containing only acellular Bordetella pertussis and Clostridium tetani and Corynebacterium diphtheriae antigens (medicinal product); 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: [Gutfpdhfia-wzgerli-p ertussis, combined [DTP] [DtaP]] Onset: 02-13-2014 Viral infection (1 source) COVID-19 Results Test Name Value Interpretation Reference Range Facility INR in Platelet poor plasma by Coagulation assayon 12-16-2024 INR Coag (PPP) [Relative time] 2.24 {INR} [facility] Comment on above: DESIRED INR:2.0-3.0 CONDITIONS NOT LISTED BELOW2.5-3.5 FOR PROSTHETIC HEART VALVE REPLACEMENT2.5-3.5 RECURRENT THROMBOSIS Prothrombin time (PT)on PT Coag (PPP) [Time] 21.9 s High 9.0-11.6 [facility] X-ray reportOrdered By: Luz Bryan on 05-26-2024 Study report [facility] [place] [address] XRay Report Signed Patient: Evangelist Ybarra MR#: [id number] : 1955 Acct:[id number] Age/Sex: 68 / M ADM Date: 4 Loc: XDUCLY Room: Type: [facility] Attending Dr: Mariela Mosley APRN Copies [...] Lupis Bryan M.D.05/26/2024 10:23 AM Dictation Location: [employer] Transcribed By: LIV 05/26/24 1023 Dictated By: Lupis Bryan MD 05/26/24 1022 Signed By: 05/26/24 [facility]3 [facility] Work Phone: XR chest 2V*on 05-26-2024 XR chest 2V* [facility] [place] [address] XRay Report Signed Patient: Evangelist Ybarra MR#: [id number] : 1955 Acct:[id number] Age/Sex: 68 / M ADM Date: 05/26/24 Loc: XDUCLY Room: Type: [facility] Attending Dr: Mariela Mosley [employer] Copies to: Mariela Mosley APRN Ordering Provider: [...] Lupis Bryan M.D.05/26/2024 10:23 AM Dictation Location: [employer] Transcribed By: LIV 05/26/24 1023 Dictated By: Lupis Bryan MD 05/26/24 1022 Signed By: 05/26/24 1023 Normal [facility] Influenza virus A and B and SARS-CoV-2 (COVID-19) RNA panel - Respiratory system specon 05-08-2024 Influenza virus A and B RNA and SARS-CoV-2 (COVID-19) N gene panel ANNIE+probe (Resp) Influenza virus A and B and SARS-CoV-2 (COVID-19) RNA panel - Respiratory system spec [facility] Laboratory - Microbiology an d Antimicrobial susceptibilityon 05-08-2024 SARS-CoV-2 (COVID-19) RNA ANNIE+probe Ql (Unsp spec) Negative [facility] No Panel Informationon 05-08 POC Influenza B (ANNIE) Negative [facility] INR in Platelet poor plasma by Coagulation assayon 04-29-2024 INR Coag (PPP) [Relative time] 2.42 {INR} [facility] Comment on above: DESIRED INR:2.0-3.0 CONDITIONS NOT LISTED BELOW2.5-3.5 FOR PROSTHETIC HEART VALVE REPLACEMENT2.5-3.5 RECURRENT THROMBOSIS INR Coag (PPP) [Relative time] INR in Platelet poor plasma by Coagulation assay [facility] Comment on above: DESIRED INR:2.0-3.0 CONDITIONS NOT LISTED BELOW2.5-3.5 FOR PROSTHETIC HEART VALVE REPLACEMENT2.5-3.5 RECURRENT THROMBOSIS Prothrombin time (PT)on 04-10 PT Coag (PPP) [Time] 23.5 s High 9.0-11.6 [facility] PT Coag (PPP) [Time] Prothrombin time (PT) High 9.0-11.6 [facility] Progress Noteson 04-15-2024 Tailer In Authentication Interface Message Text EP video visit [...] his last visit, he had lexiscan at [facility] on 09/2016 that showe no reversible findings, [...] in 1 year Prior to your visit, [facility] shared information with you about the [...] 180 Tablet 3 Sodium Sulfate-Mag Sulfate-KCl (Sutab) 2833-932-460 MG TABS Take by mouth. AMLODIPINE BESYLATE [...] declined Stress: No Stress Concern Present (03/27/2023) [place]er [place] [employer] Occupational [employer] - Occupational Stress Questionnaire Feeling of Stress : Not at all Social Connections: Moderately Integrated (03/27/2023) Social Connection and Isolation Panel [NHANES] Frequency of Communicatio (more content not included)... Normal [facility] Ambulatory Visit Summaryon 0 01-23-2024 Ambulatory [...] URL When: Only if needed Where: [address] [place] [address] [id number] Medications What How Much When Instructions Unchanged [...] ? Ne (more content not included)... Normal [facility] Provider Letteron 01-23-2024 Provider Letter Provider Letter DONALD LIZARRAGA, [facility] [place] [address] Re: EVANGELIST YBARRA Date of : [address] ELHAM JACKSON, EVANGELIST SWNASON was evaluated at [facility] 01/30/2024 10:00:00 As this patient has been stable, they will be released back to your care. We request that you continue to check PSA annually for prostate cancer screening Should the patient develop new symptoms, worsening condition, or abnormal imaging/labs in the future, do not hesitate to refer them back. Thanks! Provider Signature: Cathie Hernandez PA-C Physician Division Sales Manager [facility] [address] [place] [address] Normal [facility] Urology Office/Clinic Noteon 01-23-2024 Urology Office/Clinic Note Urology Office/Clinic Note Chief Complaint 1 year follow up with PSA HPI Staff 68 year old patient presents today for a 1 year follow up with PSA. No recent PSA on [facility], [facility], [facility], or [facility] DX: BPH, ED & Elevated PSA TURP [...] prn at prior OV pending clearance from senior chemical engineer but pt never filled script. Not [...] GARCIA, CATHIE Ruano, URL Only if needed [address] [place] [id number] Additional Instructions: Patient Education Erectile Dysfunction Documentation recorded by the scribion Caceres accurately reflects the services(s) I performed [...] - De (more content not included)... Normal [facility] Comment on above: Result Comment: Elec tronically Signed By: CATHIE HERNANDEZ PA-C\.br\Date and Time Signed: 01/23/24 14:33 EDT\.br\Electronically Co-Signed By: Krystyna Caceres\.br\Date and Time Co-Signed: 01/23/24 14:31 EDT URINALYSISOrdered By: Sweetie Ma on 07-18-2023 Bacteria LM Ql (Urine sed) Trace /HPF [...] AM) Normal Negative [facility] UA Auto SS [place].plasma/Lith ium.RBC (Bld) [Mass ratio] 0-3 /HPF Normal [...] Desc Random Urine (01/24/23 10:19 AM) Normal [facility] UA Auto SS Urobilinogen Qn (U) [id number] {Anne'U}/dL Normal 0.0 - 1.0 EU/dL [facility] [...] UNA SEARS Date: 2022-11-10 09:46 Normal [facility] CBC AUTO DIFFon 2022 BASO # 0.0 103/ul Normal 0.0-0.1 [facility] Comment on above: Performed By: #### C BC #### [facility] [address] [place] [address] Dr. Jason Pearson Basophils/100 WBC (Bld) 0.7 % Normal 0.2-2.0 [facility] Comment on above: Performed By: #### C BC #### [facility] [address] [place] [address] Dr. Jason Pearson EO # 0.2 103/ul Normal 0.0-0.7 [facility] Comment on above: Performed By: #### C BC #### [facility] [address] [place] [address] Dr. Jason Pearson Eosinophils/100 WBC (Bld) 3.7 % Normal 0.9-7.0 [facility] Comment on above: Performed By: #### C BC #### [facility] [address] [place] [address] Dr. Jason Pearson Erythrocyte distribution width (RBC) [Ratio] 14.0 % Normal 11.0-15.0 [facility] Comment on above: Performed By: #### C BC #### [facility] [address] [place] [address] Dr. Jason Pearson Hematocrit (Bld) [Volume fraction] 41.0 % Critically low 42.0-54.0 [facility] Comment on above: Performed By: #### C BC #### [facility] [address] [place] [address] Dr. Jason Pearson Hemoglobin (Bld) [Mass/Vol] 13.8 g/dL Critically low 14.0-18.0 [facility] Comment on above: Performed By: #### C BC #### [facility] [address] [place] [address] Dr. Jason Pearson IG # 0.01 10e3/ul Normal 0.00-0.03 [facility] Comment on above: Performed By: #### C BC #### [facility] [address] [place] [address] Dr. Jason Pearson IG % 0.2 % Normal 0.0-0.5 [facility] Comment on above: Performed By: #### C BC #### [facility] [address] [place] [address] Dr. Jason Pearson LYMPH # 1.3 103/ul Normal 1.2-3.8 [facility] Comment on above: Performed By: #### C BC #### [facility] [address] [place] [address] Dr. Jason Pearson Lymphocytes/100 WBC (Bld) 22.3 % Normal 20.5-60.0 [facility] Comment on above: Performed By: #### C BC #### [facility] [address] [place] [address] Dr. Jason Pearson MANUAL DIFF REQ NO Normal [facility] Comment on above: Performed By: #### C BC #### [facility] [address] [place] [address] Dr. Jason Pearson MCH (RBC) [Entitic mass] 32.6 pg Normal 25.9-34.0 [facility] Comment on above: Performed By: #### C BC #### [facility] [address] [place] [address] Dr. Jason Pearson MCHC (RBC) [Mass/Vol] 33.7 g/dL Normal 29.9-35.2 [facility] Comment on above: Performed By: #### C BC #### [facility] [address] [place] [address] Dr. Jason Pearson MCV (RBC) [Entitic vol] 96.9 fL Critically high 80.0-94.0 [facility] Comment on above: Performed By: #### C BC #### [facility] [address] [place] [address] Dr. Jason Pearson MONO # 0.6 103/ul Normal 0.3-0.8 [facility] Comment on above: Performed By: #### C BC #### [facility] [address] [place] [address] Dr. Jason Pearson Monocytes/100 WBC (Bld) 10.5 % Normal 1.7-12.0 [facility] Comment on above: Performed By: #### C BC #### [facility] [address] [place] [address] Dr. Jason Pearson NEUT # 3.7 103/ul Normal 1.4-6.5 [facility] Comment on above: Performed By: #### C BC #### [facility] [address] [place] [address] Dr. Jason Pearson Neutrophils/100 WBC (Bld) 62.6 % Normal 43.0-75.0 [facility] Comment on above: Performed By: #### C BC #### [facility] [address] [place] [address] Dr. Jason Pearson Platelet mean volume (Bld) [Entitic vol] 9.9 fL Normal 9.5-13.5 [facility] Comment on above: Performed By: #### C BC #### [facility] [address] [place] [address] Dr. Jason Pearson PLT 181 103/ul Normal 150-450 [facility] Comment on above: Performed By: #### C BC #### [facility] [address] [place] [address] Dr. Jason Pearson RBC 4.23 106/ul Critically low 4.70-6.10 [facility] Comment on above: Performed By: #### C BC #### [facility] [address] [place] [address] Dr. Jason Pearson WBC 5.9 103/ul Normal 4.0-11.0 [facility] Comment on above: Performed By: #### C BC #### [facility] [address] [place], [place] [address] Dr. Jason Pearson LIPID PROFILEon 2022 CHOL-HDL RATIO NORM SEE BELOW Normal [facility] Comment on above: Result Comment: 3.3 - 4.4 LOW RISK 4.4 - 7.1 AVERAGE RISK 7.1 - 11.0 MODERATE RISK >11.0 HIGH RISK Performed By: #### C MP, LIPID ####[facility] [address] [place], [place] [address]Zf. Jason Pearson Cholesterol [Mass/Vol] 163 mg/dL Normal <=200 [facility] Comment on above: Performed By: #### C MP, LIPID ####[facility] [address] [place], [place] [address]Gj. Jason Pearson Cholesterol in HDL [Mass/Vol] 49 mg/dL Normal 40-60 [facility] Comment on above: Performed By: #### C MP, LIPID ####[facility] [address] [place] [id number]. Jason Pearson Cholesterol in LDL [Mass/Vol] 74.6 mg/dL Normal [facility] Comment on above: Performed By: #### C MP, LIPID ####[facility] [address] [place], [place] [address]Nr. Jason Pearson Cholesterol.total/C holesterol in HDL [Mass ratio] 3.3 {ratio} Normal [facility] Comment on above: Performed By: #### C MP, LIPID ####[facility] [address] [place], [place] [address]Rw. Jason Pearson HDL NORMAL > or = 60 mg/dl - LO W CARDIOVASCULAR RISK <40 mg/dl - HIGH CARDIOVASCULAR RISK Normal [facility] Comment on above: Performed By: #### C MP, LIPID ####[facility] [address] [place], [place] [address]Xb. Jason Pearson LDL CALC NORMAL SEE BELOW Normal [facility] Comment on above: Result Comment: <100 mg/dl OPTIMAL 100 - 129 mg/dl NEAR OR ABOVE OPTIMAL 130 - 159 mg/dl BORDERLINE HIGH 160 - 189 mg/dl HIGH >190 mg/dl VERY HIGH Performed By: #### C MP, LIPID ####[facility] [address] [place] [id number]. Jason Pearson Triglyceride [Mass/Vol] 197 mg/dL Critically high <=150 [facility] Comment on above: Performed By: #### C MP, LIPID ####[facility] [address] [place] [id number] Pearson VLDL CALC 39.4 mg/dL Normal [facility] Comment on above: Performed By: #### C MP, LIPID ####[facility] [address] [place] [id number] Pearson MICROALBUMIN, RAND URon 03-0 mALB 1.3 mg/L Normal <=30.0 [facility] Comment on above: Performed By: #### M ALBR ####[facility] [address] [place] [id number]. Jason Pearson PROF 14(COMP METB)on 023 Albumin [Mass/Vol] 3.7 g/dL Normal 3.4-5.0 [facility] Comment on above: Performed By: #### C MP, LIPID #### [facility] [address] [place] [address] Dr. Jason Pearson Albumin/Globulin [Mass ratio] 1.0 {ratio} Normal [facility] Comment on above: Performed By: #### C MP, LIPID #### [facility] [address] [place] [address] [address] Jason Pearson ALP [Catalytic activity/Vol] 56 U/L Normal 46-116 [facility] Comment on above: Performed By: #### C MP, LIPID #### [facility] [address] [place] [address] [address] Jason Pearson ALT [Catalytic activity/Vol] 43 U/L Normal 16-63 [facility] Comment on above: Performed By: #### C MP, LIPID #### [facility] [address] [place] [address] [address] Jaosn Pearson Anion gap [Moles/Vol] 11.2 mmol/L Normal [facility] Comment on above: Performed By: #### C MP, LIPID #### [facility] [address] [place] [address] Dr. Jason Pearson AST [Catalytic activity/Vol] 24 U/L Normal 15-37 [facility] Comment on above: Performed By: #### C MP, LIPID #### [facility] [address] [place] [address] Dr. Jason Pearson Bilirubin [Mass/Vol] 0.9 mg/dL Normal 0.2-1.0 [facility] Comment on above: Performed By: #### C MP, LIPID #### [facility] [address] [place] [address] Dr. Jason Pearson Calcium [Mass/Vol] 9.6 mg/dL Normal 8.5-10.1 [facility] Comment on above: Performed By: #### C MP, LIPID #### [facility] [address] [place] [address] Dr. Jason Pearson Chloride [Moles/Vol] 106 mmol/L Normal 98-107 [facility] Comment on above: Performed By: #### C MP, LIPID #### [facility] [address] [place] [address] Dr. Jason Pearson CO2 [Moles/Vol] 30.1 mmol/L Normal 21.0-32.0 [facility] Comment on above: Performed By: #### C MP, LIPID #### [facility] [address] [place] [address] Dr. Jason Pearson Creatinine [Mass/Vol] 1.00 mg/dL Normal 0.70-1.30 [facility] Comment on above: Performed By: #### C MP, LIPID #### [facility] [address] [place] [address] Dr. Jason Pearson EGFR-AF CYPRIOT >60 Normal >=60 [facility] Comment on above: Performed By: #### C MP, LIPID #### [facility] [address] [place] [address] Dr. Jason Pearson EGFR-NON AF CYPRIOT >60 Normal >=60 [facility] Comment on above: Performed By: #### C MP, LIPID #### [facility] [address] [place] [address] Dr. Jason Pearson Globulin (S) [Mass/Vol] 3.6 g/dL Normal [facility] Comment on above: Performed By: #### C MP, LIPID #### [facility] [address] [place] [address] Dr. Jason Pearson Glucose [Mass/Vol] 110 mg/dL Critically high 74-106 [facility] Comment on above: Performed By: #### C MP, LIPID #### [facility] [address] [place] [address] Dr. Jason Pearson Potassium [Moles/Vol] 4.3 mmol/L Normal 3.5-5.1 [facility] [facility] Comment on above: Performed By: #### C MP, LIPID #### [facility] [address] [place] [address] Dr. Jason Pearson Protein [Mass/Vol] 7.3 g/dL Normal 6.4-8.2 [facility] Comment on above: Performed By: #### C MP, LIPID #### [facility] [address] [place] [address] Dr. Jason Pearson Sodium [Moles/Vol] 143 mmol/L Normal 136-145 [facility] Comment on above: Performed By: #### C MP, LIPID #### [facility] [address] [place] [address] Dr. Jason Pearson Urea nitrogen [Mass/Vol] 15.0 mg/dL Normal 7.0-18.0 [facility] Comment on above: Performed By: #### C MP, LIPID #### [facility] [address] [place] [address] Dr. Jason Pearson Urea nitrogen/Creatinine [Mass ratio] 15.0 mg/mg Normal [facility] Comment on above: Performed By: #### C MP, LIPID #### [facility] [address] [place] [address] Dr. Jason Pearson PROTIMEon 06-28-2022 INR Coag (PPP) [Relative time] 1.11 {INR} Normal [facility] Comment on above: Performed By: #### P T ####[facility] [id number] [place] [place] [address]Dr. Jason Pearson INR GUIDELINES SEE BELOW Normal The [facility] Comment on above: Result Comment: KOFI RED INR: 2.0 - 3.0 CONDITIONS NOT LISTED BELOW 2.5 - 3.5 FOR PROSTHETIC HEART VALVE REPLACEMENT 2.5 - 3.5 RECURRENT THROMBOSIS Performed By: #### P T ####[facility] [id number] [place] [place] [address]Dr. Jason Pearson PT Coag (PPP) [Time] 11.9 s Critically high 9.0-11.6 [facility] Comment on above: Performed By: #### P T ####[facility] [id number] [place] [address]Dr. Jason Pearson PROTIMEon 03-22-2022 INR Coag (PPP) [Relative time] 1.32 {INR} Normal [facility] Comment on above: Performed By: #### P T #### [facility] [address] [address] [address] Jason Pearsno INR GUIDELINES SEE BELOW Normal The [facility] Comment on above: Result Comment: KOFI RED INR: 2.0 - 3.0 CONDITIONS NOT LISTED BELOW 2.5 - 3.5 FOR PROSTHETIC HEART VALVE REPLACEMENT 2.5 - 3.5 RECURRENT THROMBOSIS Performed By: #### P T #### [facility] [address] [address] [address] Jason Pearson PT Coag (PPP) [Time] 14.0 s Critically high 9.0-11.6 [facility] Comment on above: Performed By: #### P T #### [facility] [address] [address] [address] Jason Pearson PROTIMEon 02-07-2022 INR Coag (PPP) [Relative time] 1.08 {INR} Normal [facility] Comment on above: Performed By: #### P T #### [facility] [address] [address] [address] Jason Pearson INR GUIDELINES SEE BELOW Normal The [facility] Comment on above: Result Comment: KOFI RED INR: 2.0 - 3.0 CONDITIONS NOT LISTED BELOW 2.5 - 3.5 FOR PROSTHETIC HEART VALVE REPLACEMENT 2.5 - 3.5 RECURRENT THROMBOSIS Performed By: #### P T #### [facility] [address] [address] [address] Jason Pearson PT Coag (PPP) [Time] 11.6 s Normal 9.0-11.6 [facility] Comment on above: Performed By: #### P T #### [facility] [address] [address] [address] Jason Pearson XR HIP RT INJon [...] RUPERT MOON Date: 2022-02-07 11:09 Normal [facility] Initial Visit (Gastroenterol ogy)on 03-28-2018 Initial [...] from the patient and documented on the [facility] health history questionnaire. Pertinent positives and [...] MG Oral Tablet; TAKE 1 TABLET DAILY;Therapy: (Recorded:[id number]) to Recorded Dispense: 0 Days ; #: Sufficient Tablet; Refill: 0; KP = N; Record; Last Updated By: Toyin Angeles; 03/28/2018 9:14:26 AM Flecainide Acetate 100 MG Oral Tablet; TAKE 1 TABLET EVERY 12 HOURS DAILY;Therapy: (Recorded:[id number]) to Recorded Dispense: 0 Days ; #: Sufficient Tablet; Refill: 0; KP = N; Record; Last Updated By: Toyin Angeles; 03/28/2018 9:14:26 AM HydroCHLOROthiazide 25 MG Oral Tablet; TAKE 1 TABLET DAILY;Therapy: (Recorded:[id number]) to Recorded Dispense: 0 Days ; #: Sufficient Tablet; Refill: 0; KP = N; Record; Last Updated By: Toyin Angeles; 03/28/2018 9:14:26 AM Imodium A-D CAPS;Therapy: (Recorded:[id number]) to Recorded Dispense: 0 Days ; #: Sufficient CAPS; Refill: 0; KP = N; Record; Last Updated By: Toyin Angeles; 03/28/2018 9:14:26 AM Klor-Con M20 20 MEQ Oral Tablet Extended Release; TAKE 2 TABLETS TWICE DAILY;Therapy: (Recorded:[id number]) to Recorded Dispense: 0 Days ; #: Sufficient Tablet Extended Release; Refill: 0; KP = N; Record; Last Updated By: Toyin Angeles; 03/28/2018 9:14:26 AM Lisinopril 40 MG Oral Tablet; TAKE 1 TABLET DAILY;Therapy: (Recorded:[id number]) to Recorded Dispense: 0 Days ; #: Sufficient Tablet; Refill: 0; KP = N; Record; Last Updated By: Toyin Angeles; 03/28/2018 9:14:26 AM Loratadine 10 MG Oral Tablet; TAKE 1 TABLET DAILY;Therapy: (Recorded:[id number]) to Recorded Dispense: 0 Days ; #: Sufficient Tablet; Refill: 0; KP = N; Record; Last Updated By: Toyin Angeles; 03/28/2018 9:14:26 AM Metoprolol Tartrate 100 MG Oral Tablet; TAKE 1 TABLET DAILY;Therapy: (Recorded:[id number]) to Recorded Dispense: 0 Days ; #: Sufficient Tablet; Refill: 0; KP = N; Record; Last Updated By: Toyin Angeles; 03/28/2018 9:14:26 AM Multivitamins TABS;Therapy: (Recorded:57Rvl1403) to Recorded Dispense: 0 Days ; #: Sufficient TABS; Refill: 0; KP = N; Record; Last Updated By: Toyin Angeles; 03/28/2018 9:14:26 AM Tamsulosin HCl - 0.4 MG Oral Capsule;Therapy: (Recorded:[id number]) to Recorded Dispense: 0 Days ; #: Sufficient Capsule; Refill: 0; KP = N; Record; Last Updated By: Toyin Angeles; 03/28/2018 9:14:26 AM Vitamin B-12 ER 1500 MCG Oral Tablet Extended Release;Therapy: (Recorded:[id number]) to Recorded Dispense: 0 Days ; #: Sufficient TBCR; Refill: 0; KP = N; Record; Last Updated By: Toyin Angeles; 03/28/2018 9:14:26 AM Vitamin D3 2000 UNIT Oral Tablet;Therapy: (Recorded:28Mar2018) to Recorded Dispense: 0 Days ; #: Sufficient Tablet; Refill: 0; KP = N; Record; Last Updated By: Toyin Angeles; 03/28/2018 9:14:26 AM Warfarin Sodium 5 MG Oral Tablet; TAKE 1 TABLET DAILY;Therapy: (Recorded:[id number]) to Recorded Dispense: 0 Days ; #: Sufficient Tablet; Refill: 0; KP = N; Record; Last Updated By: Toyin Angeles; 03/28/2018 9:14:26 AM Vitals Vital Signs Recorded: 28Mar2018 09:12AMHeart Xftm53Ximwamnvqlx02Vcahfymt93 2Zaduexhfu26Flioyf9 ft 2 wqQysgtk070 lb 6 ozBMI Hpxfjdmrgv09.52BSA Calculated2.67 Physical ExamConstitutional General appearance: In no [...] diarrhea; KP = N; Verified Transmission to [id number]; Last Updated By: Rafi Rhodes; 03/28/2018 9:44:38 [...] MG Oral Tablet; TAKE 1 TABLET DAILY;Therapy: (Recorded:[id number]) to RecordedCholestyramine Light 4 GM Oral Packet; MIX THE CONTENTS OF 1 POWDER PACKETWITH 2-6 OZ OF NONCARBONATED BEVERAGE AND SWALLOW ONCE DAILY;Therapy: 80Teb2876 to (Evaluate:80Dba9247) Requested for: [id number]; LastRx:[id number] OrderedFlecainide Acetate 100 MG Oral Tablet; TAKE 1 TABLET EVERY 12 HOURS DAILY;Therapy: (Recorded:[id number]) to RecordedHydroCHLOROthiazide 25 MG Oral Tablet; TAKE 1 TABLET DAILY;Therapy: (Recorded:97Vnb2827) to RecordedImodium A-D CAPS (Loperamide HCl);Therapy: (Recorded:58Dpd4494) to RecordedKlor-Con M20 20 MEQ Oral Tablet Extended Release; TAKE 2 TABLETS TWICE DAILY;Therapy: (Recorded:[id number]) to RecordedLisinopril 40 MG Oral Tablet; TAKE 1 TABLET DAILY;Therapy: (Recorded:11Nrm5357) to RecordedLoratadine 10 MG Oral Tablet; TAKE 1 TABLET DAILY;Therapy: (Recorded:30Num1150) to RecordedMetoprolol Tartrate 100 MG Oral Tablet; TAKE 1 TABLET DAILY;Therapy: (Recorded:[id number]) to RecordedMultivitamins TABS;Therapy: (Recorded:92Mec2646) to RecordedTamsulosin HCl - 0.4 MG Oral Capsule;Therapy: (Recorded:63Ask1767) to RecordedVitamin B-12 ER 1500 MCG Oral Tablet Extended Release;Therapy: (Recorded:41Csw0275) to RecordedVitamin D3 2000 UNIT Oral Tablet;Therapy: (Recorded:86Mrd1163) to RecordedWarfarin Sodium 5 MG Oral Tablet; TAKE 1 TABLET DAILY;Therapy: (Recorded:20Log4384) to Recorded Signatures Electronically signed by : Devin Greer DO; Mar 28 2018 9:51AM EST (Author) Normal [facility] Vital Signs Date Time Vital Sign Value Performing Clinician Facility 03-03-2025 10:51-0400 Body height 187.96 cm Donald Lizarraga MD Work Phone: [facility] 03-03-2025 10:51-0400 Body mass index (BMI) [Ratio] 38.1 kg/m2 Donald Lizarraga MD Work Phone: [facility] 03-03-2025 10:51-0400 Body weight 134.7 kg Donald Lizarraga MD Work Phone: [facility] 02-12-2025 09:22-0400 Body height 187.96 cm Donald Lizarraga MD Work Phone: [facility] 02-12-2025 09:22-0400 Body mass index (BMI) [Ratio] 38.1 kg/m2 Donald Lizarraga MD Work Phone: [facility] 02-12-2025 09:22-0400 Body weight 134.71 kg Donald Lizarraga MD Work Phone: [facility] 02-12-2025 09:22-0400 Diastolic blood pressure 77 mm[Hg] Donald Lizarraga MD Work Phone: [facility] 02-12-2025 09:22-0400 Heart rate 61 /min Donald Lizarraga MD Work Phone: [facility] 02-12-2025 09:22-0400 Systolic blood pressure 128 mm[Hg] Donald Lizarraga MD Work Phone: [facility] 05-29-2024 09:52-0500 Body height 187.96 cm Donald Lizarraga MD Work Phone: [facility] 05-29-2024 09:52-0500 Body mass index (BMI) [Ratio] 38.4 kg/m2 Donald Lizarraga MD Work Phone: [facility] 05-29-2024 09:52-0500 Body temperature 98.5 [degF] Donald Lizarraga MD Work Phone: [facility] 05-29-2024 09:52-0500 Body weight 135.62 kg Donald Lizarraga MD Work Phone: [facility] 05-29-2024 09:52-0500 Diastolic blood pressure 81 mm[Hg] Donald Lizarraag MD Work Phone: [facility] 05-29-2024 09:52-0500 Heart rate 73 /min Donald Lizarraga MD Work Phone: [facility] 05-29-2024 09:52-0500 SaO2% (BldA) [Mass fraction] 98 % Donald Lizarraga MD Work Phone: [facility] 05-29-2024 09:52-0500 Systolic blood pressure 137 mm[Hg] Donald Lizarraga MD Work Phone: [facility] 05-26-2024 09:18-0500 Body height 187.96 cm Donald Lizarraga MD Work Phone: [facility] 05-26-2024 09:18-0500 Body mass index (BMI) [Ratio] 38.5 kg/m2 Donald Lizarraga MD Work Phone: [facility] 05-26-2024 09:18-0500 Body temperature 98.1 [degF] Donald Lizarraga MD Work Phone: [facility] 05-26-2024 09:18-0500 Body weight 136.13 kg Donald Lizarraga MD Work Phone: [facility] 05-26-2024 09:18-0500 Diastolic blood pressure 77 mm[Hg] Donald Lizarraga MD Work Phone: [facility] 05-26-2024 09:18-0500 Heart rate 73 /min Donald Lizarraga MD Work Phone: [facility] 05-26-2024 09:18-0500 Respiratory rate 18 /min Donald Lizarraga MD Work Phone: [facility] 05-26-2024 09:18-0500 SaO2% (BldA) [Mass fraction] 96 % Donald Lizarraga MD Work Phone: [facility] 05-26-2024 09:18-0500 Systolic blood pressure 127 mm[Hg] Donald Lizarraga MD Work Phone: [facility] 05-08-2024 09:24-0400 Body height 187.96 cm [facility] 05-08-2024 09:24-0400 Body mass index (BMI) [Ratio] 38.8 kg/m2 [facility] 05-08-2024 09:24-0400 Body temperature 98 [degF] [facility] 05-08-2024 09:24-0400 Body weight 137.15 kg [facility] 05-08-2024 09:24-0400 Diastolic blood pressure 73 mm[Hg] [facility] 05-08-2024 09:24-0400 Heart rate 70 /min [facility] 05-08-2024 09:24-0400 Respiratory rate 18 /min [facility] 05-08-2024 09:24-0400 SaO2% (BldA) [Mass fraction] 98 % [facility] 05-08-2024 09:24-0400 Systolic blood pressure 167 mm[Hg] [facility] 01-23-2024 14:11-0400 Blood Pressure Location CATHIE HERNANDEZ [facility] 01-23-2024 14:11-0400 Body temperature 97.88 [degF] CATHIE HERNANDEZ [facility] 01-23-2024 14:11-0400 Diastolic blood pressure 74 mm[Hg] CATHIE AZEVEDORY [facility] 01-23-2024 14:11-0400 Heart rate 67 /min CATHIE AZEVEDORY [facility] 01-23-2024 14:11-0400 Respiratory rate 16 /min CATHIE AZEVEDORY [facility] 01-23-2024 14:11-0400 Systolic blood pressure 138 mm[Hg] CATHIE HERNANDEZ [facility] 10-19-2023 10:19-0400 Body height 187.96 cm [facility] 10-19-2023 10:19-0400 Body mass index (BMI) [Ratio] 40.1 kg/m2 [facility] 10-19-2023 10:19-0400 Body weight 141.63 kg [facility] 10-19-2023 10:19-0400 Diastolic blood pressure 84 mm[Hg] [facility] 10-19-2023 10:19-0400 Heart rate 71 /min [facility] 10-19-2023 10:19-0400 SaO2% (BldA) [Mass fraction] 98 % [facility] 10-19-2023 10:19-0400 Systolic blood pressure 132 mm[Hg] [facility] 07-13-2023 15:30-0500 Body height 187.96 cm Donald Lizarraga Other [facility] Other 07-13-2023 15:30-0500 Body mass index (BMI) [Ratio] 40.18 kg/m2 Donald Lizarraga Other [facility] Other 07-13-2023 15:30-0500 Body weight 141.98 kg Donald Lizarraga Other [facility] Other 07-13-2023 15:30-0500 Diastolic blood pressure 86 mm[Hg] Donald Lizarraga Other [facility] Other 07-13-2023 15:30-0500 Systolic blood pressure 142 mm[Hg] Dnoald Lizarraga Other [facility] Other 01-24-2023 10:00-0400 Blood Pressure Location CATHIE TIANA [facility] 01-24-2023 10:00-0400 Diastolic blood pressure 80 mm[Hg] CATHIE TIANA [facility] 01-24-2023 10:00-0400 Heart rate 72 /min CATHIE TIANA [facility] 01-24-2023 10:00-0400 Respiratory rate 16 /min CATHIE TIANA [facility] 01-24-2023 10:00-0400 Systolic blood pressure 130 mm[Hg] CATHIE TIANA [facility] 10-06-2022 10:17-0400 Diastolic blood pressure 78 mm[Hg] Daigle SALAM [facility] 10-06-2022 10:17-0400 Heart rate 69 /min Daigle SALAM [facility] 10-06-2022 10:17-0400 Respiratory rate 16 /min Daigle SALAM [facility] 10-06-2022 10:17-0400 SaO2% (BldA) [Mass fraction] 99 % Daigle SALAM [facility] 10-06-2022 10:17-0400 Systolic blood pressure 122 mm[Hg] Daigle SALAM [facility] 10-06-2022 10:05-0400 Diastolic blood pressure 76 mm[Hg] Daigle SALAM [facility] 10-06-2022 10:05-0400 Heart rate 67 /min Daigle SALAM [facility] 10-06-2022 10:05-0400 Respiratory rate 18 /min Daigle SALAM [facility] 10-06-2022 10:05-0400 SaO2% (BldA) [Mass fraction] 99 % Daigle SALAM [facility] 10-06-2022 10:05-0400 Systolic blood pressure 135 mm[Hg] Daigle SALAM [facility] 10-06-2022 10:00-0400 Diastolic blood pressure 70 mm[Hg] Daigle SALAM [facility] 10-06-2022 10:00-0400 Heart rate 66 /min Daigle SALAM [facility] 10-06-2022 10:00-0400 Systolic blood pressure 134 mm[Hg] Daigle SALAM [facility] 10-06-2022 09:55-0400 Respiratory rate 16 /min Daigle SALAM [facility] 10-06-2022 09:52-0400 Body temperature 97.7 [degF] Daigle SALAM [facility] 10-06-2022 09:40-0400 Respiratory rate 1 /min Daigle SALAM [facility] 10-06-2022 08:21-0400 Blood Pressure Location Daigle SALAM [facility] 10-06-2022 08:21-0400 Body temperature 97.88 [degF] Daigle SALAM [facility] 07-29-2022 14:15-0500 Diastolic blood pressure 88 mm[Hg] Elicia Mcmillan [facility] 07-29-2022 14:15-0500 Mean blood pressure 105 mm[Hg] Elicia Mcmillan [facility] 07-29-2022 14:15-0500 Systolic blood pressure 138 mm[Hg] Elicia Mcmillan [facility] 07-29-2022 14:11-0500 Blood Pressure Location Elicia Mcmillan [facility] 07-29-2022 14:11-0500 Body temperature 97.88 [degF] Elicia Mcmillan [facility] 07-29-2022 14:11-0500 Diastolic blood pressure 87 mm[Hg] Elicia Mcmillan [facility] 07-29-2022 14:11-0500 Heart rate 77 /min Elicia Mcmillan [facility] 07-29-2022 14:11-0500 Systolic blood pressure 147 mm[Hg] Elicia Mcmillan [facility] 07-26-2022 10:45-0500 Body height 187.96 cm Donald Lizarraga Other [facility] Other 07-26-2022 10:45-0500 Body mass index (BMI) [Ratio] 41.47 kg/m2 Donald Lizarraga Other [facility] Other 07-26-2022 10:45-0500 Body weight 146.51 kg Donald Lizarraga Other [facility] Other 07-26-2022 10:45-0500 Diastolic blood pressure 84 mm[Hg] Donald Lizarraga Other [facility] Other 07-26-2022 10:45-0500 SaO2% (BldA) [Mass fraction] 97 % Donald Lizarraga Other [facility] [employer] Other 07-26-2022 10:45-0500 Systolic blood pressure 142 mm[Hg] Donald Lizarraga Other [facility] [employer] Other 10-27-2021 12:02-0400 Blood Pressure Location CATHIE HERNANDEZ [facility] 10-27-2021 12:02-0400 Diastolic blood pressure 78 mm[Hg] CATHIE HERNANDEZ [facility] 10-27-2021 12:02-0400 Heart rate 77 /min CATHIE HERNANDEZ [facility] 10-27-2021 12:02-0400 Systolic blood pressure 141 mm[Hg] CATHIE HERNANDEZ [facility] Encounters Encounter Date Encounter Type Care Provider Facility Start: 04-02-2025 End: 04-02-2025 Patient encounter status Prasanth Perez MD Work Phone: [facility] Start: 04-02-2025 End: 04-02-2025 Refill Prasanth Perez MD Work Phone: [facility] Comment on above: Refill Start: 03-24-2025 End: 03-24-2025 ambulatory Blessing Granda MD Facility:[facility] Start: 03-03-2025 End: 03-03-2025 ambulatory Donald Lizarraga MD Work Phone: [facility] Work Phone: Start: 03-03-2025 End: 03-03-2025 Patient encounter procedure Peter Auguste DO -[facility] [place] Work Phone: Start: 02-12-2025 End: 02-12-2025 ambulatory Donald Lizarraga MD Work Phone: [facility] Work Phone: Start: 02-12-2025 End: 02-12-2025 Patient encounter procedure Donald Lizarraga MD -[facility] Work Phone: Start: 12-23-2024 End: 12-23-2024 ambulatory Blessing Granda MD Facility:[facility] [place] Start: 12-16-2024 Non-patient / Non-visit Blessing cui MD -[facility] Work Phone: Start: 12-16-2024 End: 12-16-2024 ambulatory Blessing Granda MD Facility:[facility] Start: 12-14-2024 End: 12-14-2024 Letter encounter Emperatriz Carnes Work Phone: [facility] Start: 11-28-2024 Non-patient / Non-visit Merlyn Mesa CMA -[facility] Work Phone: Start: 11-25-2024 End: 11-25-2024 ambulatory Blessing Granda MD Facility:[facility] Start: 11-06-2024 End: 11-06-2024 Refill Prasanth Perez MD Work Phone: [facility] Comment on above: Refill Start: 05-29-2024 End: 05-29-2024 ambulatory Donald Lizarraga MD Work Phone: [facility] Work Phone: Start: 05-29-2024 End: 05-29-2024 Patient encounter procedure Donald Lizarraga MD Work Phone: [facility] Work Phone: Start: 05-26-2024 End: 05-26-2024 ambulatory Donald Lizarraga MD Work Phone: [facility] Work Phone: Start: 05-26-2024 End: 05-26-2024 Patient encounter procedure Donald Lizarraga MD Work Phone: [facility] [place] Work Phone: Start: 05-08-2024 End: 05-08-2024 ambulatory [facility] Work Phone: Start: 05-08-2024 End: 05-08-2024 Patient encounter procedure [facility] [place] Work Phone: Start: 04-29-2024 Non-patient / [facility] Work Phone: Start: 04-29-2024 End: 04-29-2024 ambulatory Blessing Granda MD Facility:[facility] Start: 04-15-2024 End: 04-15-2024 Office outpatient visit 25 minutes Prasanth Perez MD Work Phone: [facility] Comment on above: PAF (paroxysmal atri al fibrillation) (HCC) (Primary Dx) Start: 04-15-2024 End: 04-15-2024 ambulatory PRASANTH PEREZ [place] Start: 01-23-2024 End: 01-23-2024 ambulatory CATHIE HERNANDEZ Facility:[facility] Start: 01-23-2024 End: 01-23-2024 Patient encounter procedure CATHIE HERNANDEZ [facility] Start: 12-27-2023 End: 12-28-2023 Patient encounter status Emperatriz Karim DO Work Phone: [facility] Start: 12-27-2023 End: 12-28-2023 Refill Emperatriz Karim DO Work Phone: [facility] Comment on above: Refill Start: 10-19-2023 End: 10-19-2023 ambulatory [facility] Work Phone: Start: 10-19-2023 End: 10-19-2023 Patient encounter procedure [facility] Work Phone: Start: 09-07-2023 Non-patient / Non-visit [facility] [employer] Work Phone: Start: 07-20-2023 End: 07-20-2023 ambulatory Donald Lizarraga Other [facility] Other Start: 07-20-2023 Telephone encounter Donald Lizarraga [facility] Start: 07-13-2023 End: 07-13-2023 ambulatory Donald Lizarraga Other [facility] Other Start: 07-13-2023 Office outpatient vi sit 15 minutes Donald Lizarraga [facility] Start: 04-04-2023 Patient encounter status Emperatriz Karim DO Work Phone: [facility] Start: 04-04-2023 Refill Emperatriz Karim DO Work Phone: [facility] Comment on above: Refill Start: 03-29-2023 End: 03-29-2023 Office outpatient visit 15 minutes Emperatriz Karim DO Work Phone: [facility] Comment on above: Persistent atrial fi brillation (HCC) (Primary Dx); Anticoagulated; JAVED on CPAP Start: 03-28-2023 End: 03-28-2023 ambulatory Donald Lizarraga Other [facility] Other Start: 03-28-2023 Telephone encounter Donald Lizarraga [facility] Start: 03-18-2023 Letter encounter Emperatriz Rodolfoim D O Work Phone: [facility] Start: 02-16-2023 Telephone encounter Emperatrizquique Reynoldsi m DO Work Phone: [facility] Comment on above: Question about medic ation Refill Start: 02-14-2023 Patient encounter status Emperatriz Carnes DO [facility] Start: 02-14-2023 Refill Emperatriz Carnes DO Work Phone: [facility] Comment on above: Refill Start: 01-24-2023 End: 01-24-2023 Lab Drop off CATHIE HERNANDEZ [facility] Start: 01-24-2023 End: 01-24-2023 Patient encounter procedure CATHIE HERNANDEZ [facility] Start: 11-10-2022 End: 11-11-2022 ambulatory JEET HERNÁNDEZ . Facility:[facility] Start: 11-07-2022 End: 12-07-[address] DONALD LIZARRAGA Facility:[facility] Start: 10-13-2022 ambulatory NARENDRANATH LAKSHMIPATHY . Facility:[facility] Start: 10-11-2022 (Televisit) Televisit Donald Leon [facility] Start: 10-11-2022 End: 10-11-2022 ambulatory Donald Lizarraga Other [facility] [employer] Other Start: 10-10-2022 End: 11-04-2022 ambulatory SHAIKH Gurwinder FARMER Facility:[facility] Start: 10-06-2022 End: 10-06-2022 Patient encounter procedure Oxana IBARRA [facility] Start: 2022 Telephone [address] [facility] Start: 2022 End: 09-09-2022 ambulatory DR DONALD LIZARRAGA [place] [employer] Other Start: 09-07-2022 End: 10-07-2022 ambulatory SHAIKH Gurwinder FARMER Facility:H1 Start: 08-10-2022 End: 09-07-2022 ambulatory SHAIKH Gurwinder FARMER Facility:H1 Start: 07-29-2022 End: 07-29-2022 Patient encounter procedure Elicia Mcmillan [facility] Start: 07-26-2022 End: 07-26-2022 ambulatory Donald Lizarraga Other [facility] [employer] Other Start: 07-26-2022 Office outpatient vi sit 15 minutes Donald Lizarraga [facility] Start: 07-20-2022 End: 07-21-[address] [...] Facility:H1 Start: 02-27-2022 Patient encounter status Emperatriz Carnes DO Work Phone: [facility] Start: 02-27-2022 Refill Emperatrizquique Reynoldsim DO [facility] Comment on above: Refill Start: 02-07-2022 End: 02-07-[address] DONALD LIZARRAGA Facility:H1 Start: 02-07-2022 End: 03-09-[address] DONALD LIZARRAGA Facility:[facility]1 Start: 01-15-2022 Refill Emperatriz Karim DO Work Phone: [facility] Comment on above: Refill Start: 01-07-2022 End: 02-04-[address] DONALD LIZARRAGA Facility:[facility]1 Start: 11-24-2021 Patient encounter status Emperatriz Karim DO Work Phone: [facility] Start: 11-24-2021 Refill Emperatriz Karim DO Work Phone: [facility] Comment on above: Refill Start: 11-24-2021 Refill Emperatriz Karim DO Work Phone: [facility] Comment on above: Refill Start: 10-27-2021 End: 10-27-2021 Patient encounter procedure CATHIE HERNANDEZ [facility] Start: 03-28-2018 Patient encounter Devin Greer Fa cility:[facility] Start: 04-24-2017 End: 04-25-2017 Ambulatory DEFAULT PHYSICIAN Facility:[facility] Start: 03-03-2017 End: 03-04-2017 Ambulatory DEFAULT PHYSICIAN Facility:[facility] Procedures Date Procedure Procedure Detail Performing Clinician Start: 05-26-2024 Plain chest X-ray Donald Lizarraga MD Work Phone: Start: 10-06-2022 Colonoscopy Oxana IBARRA Start: [address] JADEN VILLA . Comment on above: Performed By: #### [facility]ASC #### [facility] [address] [place] [address] Dr. Jason Pearson Start: 04-23-2020 Transurethral prostatectomy [...] CATHIE HERNANDEZ Excision of cyst CATHIE VIK RRY Local anesthetic ner ve block in lower limb CATHIE HERNANDEZ Screening for malign ant neoplasm of colon Donald Lizarraga Other Screening for malign ant neoplasm of prostate Donald Lizarraga Other Special back care CATHIE DIAZ Plan of Treatment Date Care Activity Detail Author Start: 09-09-2027 Lipid panel Cholesterol [facility] Start: 03-10-2025 COVID-19 Vaccine ( season) COVID-19 Vaccine ( season) [facility] Start: 03-10-2025 Influenza vaccination Influenza Vaccine (#1) [facility] Start: 02-12-2025 Patient referral [facility] Work Phone: Start: 03-10-2024 COVID-19 Vaccine ( season) COVID-19 Vaccine ( season) [facility] Start: 03-10-2024 COVID-19 Vaccine ( season) COVID-19 Vaccine ( season) [facility] Start: 03-10-2024 Influenza vaccination Influenza Vaccine (#1) [facility] Start: 04-09-2023 Influenza vaccination Influenza Vaccine (#1) [facility] Start: 03-29-2023 End: 03-29-2023 Telemedicine consultation with patient 03/29/2023 4:20 PM EDT Telemedicine [facility] [address] [place] [address] Emperatriz Carnes DO [address] [facility] [place] [address] [facility] Start: 03-10-2023 COVID-19 Vaccine ( [...] Screening for malignant neoplasm of colon Colonoscopy [facility] Patient Education Low back pain in adults [facility] Work Phone: Patient referral [place] Work Phone: Immunizations Immunization Date Immunization Notes Care Provider [facility] 05-24-2023 Pneumococcal conjuga te 20 valent (PCV20), polysaccharide [id number] conjugate, adjuvant, PF (IYU=969) [employer] Work Phone: [facility] 05-10-2023 influenza virus vaccine, unspecified formulation CATHIE HERNANDEZ [facility] 05-10-2023 Influenza, seasonal vaccine, quadrivalent, adjuvanted, 0.5mL dose, preservative free (SKB=456) [employer]Stonybrook [employer] DO Work Phone: [facility] 05-24-2022 influenza virus vaccine, unspecified formulation Elicia Mcmillan [facility] 05-24-2022 Influenza, seasonal vaccine, quadrivalent, adjuvanted, 0.5mL dose, preservative free (DYD=444) EmperatrizStonybrook Purification DO [facility] 12-16-2021 Pfizer Monovalent (1 2+ yrs) SARS-COV-2 (COVID-19) vaccine, mRNA, spike protein, LNP, pres. free, 30 mcg/0.3mL dose, art-sucrose (SDT=659) Emperatriz Carnes DO Work Phone: [facility] 12-16-2021 SARS-CoV-2 mRNA (sxbphaffpqq-kxtu-rqveb se) vaccine Elicia Mcmillan [facility] 08-18-2021 pneumococcal conjuga te vaccine, 13 valent Emperatriz Carnes DO Work Phone: [facility] 06-09-2021 SARS-CoV-2 (COVID-19 ) mRNA BNT-162b2 vax Eliciagurwinder Mcmillan [facility] 05-26-2021 SARS-CoV-2 (COVID-19 ) Ad26 vaccine, recombinant CATHIE TIANA [facility] 05-21-2021 Influenza, seasonal vaccine, quadrivalent, adjuvanted, 0.5mL dose, preservative free (EEE=285) Emperatriz Carnes [employer] Work Phone: [facility] 05-21-2021 influenza virus vaccine, unspecified formulation Emperatriz Carnes DO Work Phone: [facility] 04-28-2021 influenza virus vaccine, unspecified formulation CATHIE TIANA [facility] 04-28-2021 SARS-CoV-2 (COVID-19 ) Ad26 vaccine, recombinant CATHIE TIANA [facility] 09-26-2020 Pfizer SARS-COV-2 (COVID-19) vaccine, age 12+ yrs, mRNA, spike protein, LNP, preservative free, 30 mcg/0.3mL dose (FKT=460) Emperatriz Karim DO Work Phone: [facility] Comment on above: Result Comment: 2022: [id number] 09-05-2020 [facility] SARS-COV-2 (COVID-19) vaccine, age 12+ yrs, mRNA, spike protein, LNP, preservative free, 30 mcg/0.3mL dose (PVS=946) Emperatriz Karim DO Work Phone: [facility] Comment on above: Result Comment: 2022: [id number] 05-10-2020 influenza virus vaccine, unspecified formulation CATHIE TIANA [facility] 05-05-2020 influenza virus vaccine, unspecified formulation Eliciagurwinder Zamarripaz [facility] 05-05-2020 Influenza, seasonal vaccine, quadrivalent, adjuvanted, 0.5mL dose, preservative free (LWP=513) Emperatriz Karim DO Work Phone: [facility] 04-29-2019 influenza virus vaccine, unspecified formulation Elicia Mcmillan [facility] 04-29-2019 influenza, high dose seasonal, preservative-free Emperatriz Karim DO Work Phone: [facility] 04-26-2018 influenza virus vaccine, unspecified formulation Elicia Mcmillan [facility] 04-26-2018 Influenza, injectabl e, Madin [place] Canine Kidney, preservative free, quadrivalent Emperatriz Karim DO Work Phone: [facility] 04-19-2016 influenza virus vaccine, split virus (incl. purified surface antigen) Donald Lizarraga Other [employer] Other 04-19-2016 influenza virus vaccine, unspecified formulation [facility] 04-19-2016 pneumococcal polysaccharide vaccine, 23 valent Donald Lizarraga Other [facility] 06-23-2014 influenza virus vaccine, split virus (incl. purified surface antigen) Donald Lizarraga Other [employer] Other 06-23-2014 influenza virus vaccine, unspecified formulation [facility] 02-13-2014 diphtheria, tetanus toxoids and acellular pertussis vaccine, unspecified formulation Donald Lizarraga Other [facility] Payers Date Payer Category Payer Commercial Indemnity [facility] [id number] 2022 Unknown 2018 Medicare [id number] [id number]. [id number] 2018 Medicare FFS MEDICARE [id number]. [id number] 1959 Medicare [id number] 2.16.840.1.544232.19 1959 Unknown [id number] 2.16.840.1.251951.19 1953 Unknown [id number] 2.16.840.1.648527.3.579.2.5 93 1953 Unknown [id number] 2.16.840.1.252842.3.579.2.5 93 1953 Unknown [id number] 2.16.840.1.846576.3.579.2.5 93 1953 Unknown [id number] 2.16.840.1.155709.3.579.2.5 93 1953 Unknown [id number] 2.16.840.1.062078.3.579.2.5 93 1953 Unknown [id number] 2.16.840.1.129438.3.579.2.5 93 1953 Unknown [id number] 2.16.840.1.333890.3.579.2.5 93 1953 Unknown [id number] 2.16.840.1.441848.3.579.2.5 93 1953 Unknown [id number] 2.16.840.1.952091.3.579.2.5 93 1953 Unknown [id number] 2.16.840.1.908867.3.579.2.5 93 1953 Unknown [id number] 2.16.840.1.138159.3.579.2.5 93 1953 Unknown [id number] 2.16.840.1.780665.3.579.2.5 93 1953 Unknown [id number] 2.16.840.1.495754.3.579.2.5 93 1953 Unknown [id number] 2.16.840.1.123142.3.579.2.5 1953 Unknown [id number] 2.16.840.1.578904.3.579.2.5 93 1953 Unknown [id number] 2.16.840.1.455061.3.579.2.5 93 1953 Unknown [id number] 2.16.840.1.707382.3.579.2.5 93 1953 Unknown [id number] 2.16.840.1.825637.3.579.2.5 93 1953 Unknown [id number] 2.16.840.1.863255.3.579.2.5 93 1953 Unknown [id number] 2.16.840.1.570585.3.579.2.5 93 1953 Unknown [id number] 2.16.840.1.305386.3.579.2.5 93 1953 Unknown [id number] 2.16.840.1.153300.3.579.2.5 93 1953 Unknown [id number] 2.16.840.1.778110.3.579.2.5 93 1953 Unknown [id number] 2.16.840.1.525381.3.579.2.7 27 1953 Unknown [id number] 2.16.840.1.158083.3.579.2.7 32 1953 Unknown [id number] 2.16.840.1.771934.3.579.2.1 96 1953 Unknown [id number] 2.16.840.1.283797.3.579.2.1 96 1953 Unknown [id number] 2.16.840.1.676550.3.579.2.1 96 1953 Unknown [id number] 2.16.840.1.166261.3.579.2.1 96 1953 Unknown [id number] 2.16.840.1.041561.3.579.2.1 96 Unknown [id number] Unknown Romel BC/BS [id number] Social History Date Type Detail Facility Start: 12-28-2018 End: 09-03-2020 Tobacco smoking status Never smoked tobacco (finding) [facility] Tobacco smoking status Never [facility] Start: 03-27-2023 Sex Assigned At Male [facility] Start: 12-28-2018 Tobacco use and exposure Smokeless tobacco non-user [facility] Start: 12-28-2018 End: 03-27-2023 Alcohol intake Ex-drinker (finding) [facility] Start: 1955 Sex Assigned At Not on file [facility] Start: 1955 Sex Assigned At Male [facility] Start: 03-27-2023 History of Social function [facility] Within the last year , have you been afraid of your partner or ex-partner? No [facility] Do you belong to any clubs or organizations such as jainism groups, unions, fraternal or athletic groups, or [...] Start: 08-09-2018 End: 05-26-2024 Sex Male (finding) [facility] Start: 03-27-2023 Details of drug misuse behavior Has never misused drugs (situation) [facility] Functional Status Date Assessment Result Facility 01-23-2024 Functional Status N/A [facility] 01-24-2023 Functional Status N/A [facility] 10-06-2022 Functional Status N/A [facility] 07-29-2022 Functional Status N/A [facility] Clinical Notes 11-24-2021 to 02-12-2025 Note Date & Type Note Facility 02-12-2025 Evaluation note Diagnosis Onset Date Resolution A-fib acute February 12 9:16am Bilateral primary osteoarthritis of hip acute February 9:16am Bilateral primary osteoarthritis of knee acute February 9:16am Lumbar pain acute February 12, 9:16am Medicare annual wellness visit, subsequent acute February 12 9:16am JAVED on CPAP acute February 12 9:16am Degenerative joint 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 10:28am [facility] Work Phone: 1(951) 969-919110-30-2024 Evaluation note* Diagnosis Onset Date Resolution Status Admit Date Bronchitis acute May 08, 2024 9:18am Cough noneactive May 26, 2024 9:07am [facility] Work Phone: [phone]) 194-403510-07-2024 History of Present illness Narrative* Prasanth Perez [...] his last visit, he had lexiscan at [facility] on 09/2016 that showe no reversible findings, [...] in 1 year Prior to your visit, [facility] shared information with you about the [...] 180 Tablet 3 Sodium Sulfate-Mag Sulfate-KCl (Sutab) 6058-520-046 MG TABS Take by mouth. AMLODIPINE BESYLATE [...] declined Stress: No Stress Concern Present (03/27/2023) [place] [facility] [employer] [facility] - Occupational Stress Questionnaire Feeling of Stress : Not at all Social Connections: Moderately Integrated (03/27/2023) Social Connection and Isolation Panel [NHANES] Frequency of Communication with Friends and Family: More than three times a week Frequency of Social Gatherings with Friends and Family: Twice a week Attends Nondenominational Services: Never Active Member of Clubs or Organizations: Yes Attends Club or Organization Meetings: More than 4 times per year Marital Status: Intimate Partner Violence: Not At Risk (03/27/2023) Humiliation, Afraid, Rape, and Kick questionnaire Fear of Current or Ex-Partner: No Emotionally Abused: No Physically Abused: No Sexually Abused: No No family history on file. documented in this [id number] Hospital Discharge instructions Patient Education 01/23/2024 14:28:31 [...] Follow these instructions at home: Medicines Take jreh-ttp-eozrxiy and prescription medicines only as told by [...] provider. Document Revised: 09/22/2021 Document Reviewed: 09/22/2021 [employer] Patient Education 2022 [employer] Follow Up Care 01/24/2023 10:37:20 With:TIANA GARCIA, CATHIE Ruano, URL Address: [address] [place] [place] [address] [phone] When: only if needed [facility] 07-16-2024 NotePatient Education Urology Erectile Dysfunction Erectile [...] these instructions at home: Medicines ? Take wyqu-vch-euctpqo and prescription medicines only as told by [...] nicotine or tobacco. These (more content not included)...[facility]01-04-2024 Evaluation note* Encounter Date Diagnosis [...] Essential hypertension (ICD-10 - I10) as above [employer] Other 09-20-2023 History of Present illness Narrative* [...] reviewing separately obtained history) CARDIAC ELECTROPHYSIOLOGY CONSULT PRADEEP Ybarra was seen today on 03/29/2023 in consultation due to chief complaint of AF. Telephone Visit for EP Evangelist Ybarra 67 year old male Phone numbers PCP: No primary care provider on file. Encounter Diagnoses Name Primary? 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 Last televisit- 08/2020- He had to ER on 05/22/20 when he had pain with a blood clot- needing to stop his coumadin for a short period of time. He felt like he has been in sinus rhythm on his self checks. He was on Blstldycrx559 mg BID and Lopressor 100 mg BID. Since patient last saw me, he had TURP done- no further hematuria or urgency. PSA has been stable. Colonoscopy was normal per patient. No melena etc. ALLERGIES: Allergies Allergen Reactions Other (Review Comments!) MEDICATIONS: Current Outpatient Medications Medication Sig Dispense Refill Sodium Sulfate-Mag Sulfate-KCl (Sutab) 2536-874-084 MG TABS Take by mouth. AMLODIPINE BESYLATE [...] refused Stress: No Stress Concern Present (03/27/2023) [place] [facility] [employer] - Occupational Stress Questionnaire Feeling of Stress : Not at all Social Connections: Moderately Integrated (03/27/2023) Social Connection and Isolation Panel [NHANES] Frequency of Communication with Friends and Family: More than three times a week Frequency of Social Gatherings with Friends and Family: Twice a week Attends Nondenominational Services: Never Active Member of Clubs or [...] Assessment/Plan: Persistent atrial fibrillation (HCC) (Primary Diagnosis) [846541] Anticoagulated [618422] JAVED on CPAP [890580] Patient doing well overall as far as [...] Electrophysiology 03/29/23 4:52 PM documented in this [id number] Telephone encounter Note* Telephone Encounter - Crystal Putnam RN - 02/17/2023 9:17 AM EDT LVM for pt that new generic Rx (Toprol XL) was sent over to [facility]. [id number] Miscellaneous Notes* Telephone Encounter - Crystal Putnam RN - 02/17/2023 9:17 AM EDT LVM for pt that new generic Rx (Toprol XL) was sent over to [facility]. * Telephone Encounter - Heather Renteria - 02/16/2023 9:38 AM EDT [facility] script is calling wanting to know if they can dispense Metoprolol SUCC- ER 100 mg instead ofthe Toprol XL 100 mg, pt's insurance will only cover the generic brand. Please contact [employer]@[phone] use Re:[phone]. Thank you documented in this [id number] Telephone encounter Note* Telephone Encounter - Aundrea Davis PharmD - 02/16/2023 3:00 PM EDT Patient called stating the original prescription that was sent had a KP for Toprol XL 100mg which is not covered. Please send over generic Metoprolol ER Succinate 100mg. Thank you! [id number] Miscellaneous Notes* Telephone Encounter - Aundrea Davis PharmD - 02/16/2023 3:00 PM EDT Patient called stating the original prescription that was sent had a KP for Toprol XL 100mg which is not covered. Please send over generic Metoprolol ER Succinate 100mg. Thank you! documented in this [id number] Telephone encounter Note* Telephone Encounter - Heather Renteria - 02/16/2023 9:38 AM EDT [facility] script is calling wanting to know if they can dispense Metoprolol SUCC- ER 100 mg instead ofthe Toprol XL 100 mg, pt's insurance will only cover the generic brand. Please contact [employer]@[phone] use Re:[phone]. Thank you [facility] Work Phone: [phone]) 613-935407-18-2023 Hospital Discharge instructions Patient Education 01/24/2023 10:34:12 [...] Follow these instructions at home: Medicines Take xvkq-cic-dalmjas and prescription medicines only as told by [...] provider. Document Revised: 09/22/2021 Document Reviewed: 09/22/2021 [employer] Patient Education 2022 [employer]. Follow Up Care 10/27/2021 12:15:55 With:TIANA GARCIA, CATHIE Ruano, URL Address: [address] [place] [phone] When:Within 1 Year(s) [facility] 04-04-2023 Evaluation note* Encounter Date [...] I48.91) stable. 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 [facility] Other 03-30-2023 Evaluation + Plan noteExtracted from: Title:KRISSY post op Author:Daljit Gooden MD Date:10/06/22 Plan Transfer/Discharge: Transfer/Discharge Discharge when meets criteria ( To home ). Extracted from: Title:KRISSY [place] Author:Daljit Gooden MD Date:10/06/22 Plan [place] [employer] Anesthesiologists (ASA) physical status classification: Class III. Anesthetic Preoperative Plan: Anesthesia General. Future Appointments Appointment Date:01/25/2023 10:00:00 AM Scheduled Provider:Erica Chua MD Location:[facility] Appointment Type:URO Office Visit [facility]03-30-2023 Hospital Discharge instructions Patient Education 10/06/2022 [...] 03/22/2005 Document Revised: 10/11/2018 Document Reviewed: 10/11/2018 [employer] Patient Education 2020 [employer]. 10/06/2022 10:00:07 Hemorrhoids, Jrmz-bz-Ctxd Hemorrhoids Hemorrhoids are swollen veins that may [...] 3 times a day. General instructions Take mbpn-fkz-rqhbxtb and prescription medicines only as told by [...] 04/04/2009 Document Revised: 07/04/2019 Document Reviewed: 11/15/2018 [employer] Patient Education 2020 [employer]. Follow Up Care 07/29/2022 15:02:48 With:Oxana IBARRA Address: [address] [place] [address] Business (1) When: Unknown Comments:Call for any problems. [facility]01-20-2023 Hospital Discharge instructions Patient Education 07/29/2022 [...] including vitamins, herbs, eye drops, creams, and fcxz-xtl-jkdtzqj medicines. Any problems you or family members [...] 06/23/2001 Document Revised: 04/18/2018 Document Reviewed: 09/06/2016 [employer] Patient Education [employer]. Follow Up Care 07/05/2022 09:47:30 With:Elicia Mcmillan CNP Address: When:1 to 2 weeks Comments:Following colonoscopy. [facility] 01-17-2023 Evaluation note* Encounter Date [...] way. Continue follow-up with cardiology as scheduled. [facility] Other 01-11-2023 NoteCONSULTATION CONSULTATION DATE: 07/20/2022 HISTORY [...] in three months' time unless otherwise indicated.[facility] 07-20-2022 NoteCONSULTATION PROCEDURE DATE: 07/20/2022 PREOPERATIVE [...] fan-like pattern. 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 He states that such activity has [...] for re-evaluation. Patient agrees to this plan.[facility] [id number] NoteCONSULTATION CONSULTATION DATE: 03/03/2022 This is a 33-rewf-sbcunrroy returning to clinic for a 3-month follow-up. [...] be followed up in the office following.[facility] [id number] Telephone encounter Note* Telephone Encounter - Erica Beckett - 03/01/2022 11:40 AM EDT Patient has not been seen by this specialist in more than 1 year. Please contact patient to schedule office visit. Thank you [id number] Miscellaneous Notes* Telephone Encounter - Erica Beckett - 03/01/2022 11:40 AM EDT Patient has not been seen by this specialist in more than 1 year. Please contact patient to schedule office visit. Thank you documented in this [id number] Telephone encounter Note* Telephone Encounter - Irina Nguyen - 01/18/2022 7:23 AM EDT Last visit with Cardiology (Emperatriz Carnes) on 09/03/2020 Requested Prescriptions Pending Prescriptions Disp Refills metoprolol (TOPROL-XL) 100 mg XL tablet [Pharmacy Med Name: METOPROLOL SUCCINATE ER TABS 100MG] 90 Tablet 3 Sig: TAKE 1 TABLET DAILY No PCP on file No PCP on file [id number] Miscellaneous Notes* Telephone Encounter - Irina Nguyen - 01/18/2022 7:23 AM EDT Last visit with Cardiology (Rodolfobetsy Emperatriz) on 09/03/2020 Requested Prescriptions Pending Prescriptions Disp Refills metoprolol (TOPROL-XL) 100 mg XL tablet [Pharmacy Med Name: METOPROLOL SUCCINATE ER TABS 100MG] 90 Tablet 3 Sig: TAKE 1 TABLET DAILY No PCP on file No PCP on file documented in this [id number] Telephone encounter Note* Telephone Encounter - Anirudh Gonzalez RPh - 11/29/2021 3:11 PM EDT Pt called back, will talk to his [facility] to get refill [facility] Work Phone: [phone] Miscellaneous Notes* Telephone Encounter - Anirudh Gonzalez RPh - 11/29/2021 3:11 PM EDT Pt called back, will talk to his [facility] to get refill * Telephone Encounter - Asia Laguna RN - 11/29/2021 2:52 PM EDT Left message for pt to return call to ACC at [phone] 2nd attempt * Telephone Encounter - Cathie Whitley RN - 11/26/2021 2:46 PM EDT Left message for patient to please call back. 1st attempt * Telephone Encounter - Anirudh Gonzalez RPh - 11/25/2021 9:37 AM EDT [facility] Staff, Please contact pt re the following issue. Per 09/03/21 note pt goes to [facility] , they should refill, will deny Thanks! * Telephone Encounter - Tamiko Rodriguez PharmD - 11/24/2021 4:09 PM EDT Requested Prescriptions Pending Prescriptions Disp Refills warfarin (COUMADIN) 5 MG tablet 90 Tablet 0 Sig: Take 1 Tablet by mouth daily. No PCP on file No PCP on file documented in this [id number] Telephone encounter Note* Telephone Encounter - Asia Laguna RN - 11/29/2021 2:52 PM EDT Left message for pt to return call to [facility] at [phone] 2nd attempt [employer] Work Phone: [phone]) 667-682205-20-2022 Telephone encounter Note* Telephone Encounter - Cathie Whitley RN - 11/26/2021 2:46 PM EDT Left message for patient to please call back. 1st attempt [id number] Telephone encounter Note* Telephone Encounter - Anirudh Gonzalez RPh - 11/25/2021 9:37 AM EDT [facility] Staff, Please contact pt re the following issue. Per 09/03/[facility] , they should refill, will deny Thanks! [id number] Telephone encounter Note* Telephone Encounter - Tamiko Rodriguez PharmD - 11/24/2021 4:09 PM EDT Requested Prescriptions Pending Prescriptions Disp Refills warfarin (COUMADIN) 5 MG tablet 90 Tablet 0 Sig: Take 1 Tablet by mouth daily. No PCP on file No PCP on file [facility] Work Phone: [phone]) 279-919705-18-2022 Miscellaneous Notes* Telephone Encounter - Tamiko Rodriguez [...] [Pharmacy Med Name: POTASSIUM CHLORIDE ER (DISP) [id number]] 180 Tablet 3 Sig: TAKE 1 TABLET TWICE A DAY Refused Prescriptions Disp Refills warfarin (COUMADIN) 5 MG tablet [Pharmacy Med Name: WARFARIN TABS 5MG] 90 Tablet 3 Sig: TAKE 1 TABLET DAILY (INR: 2.33) No PCP on file No PCP on file documented in this encounterMet[facility]HealthEvaluation + Plan note Future Appointments Appointment Date:11/01/2022 09:45:00 AM Scheduled Provider:Min Tristan Jr., MD Location:[facility] Appointment Type:URO Office Visit Diagnostic Tests Pending * PSA Total 10/27/21 [facility] evaluation + Plan note Future Appointments Appointment Date:10/06/2022 09:00:00 AM Scheduled Provider: Location:[facility] Appointment Type:Surgery FT Appointment Date:11/01/2022 09:45:00 AM Scheduled Provider:Min Tristan Jr., MD Location:[facility] Appointment Type:URO Office Visit [facility] Evaluation + Plan note Future Appointments Appointment Date:01/30/2024 10:00:00 AM Scheduled Provider:CATHIE HERNANDEZ PA-C Location:[facility] Appointment Type:URO Office Visit [facility] evaluation + Plan note Future Appointments Appointment Date:01/30/2024 10:00:00 AM Scheduled Provider:CATHIE HERNANDEZ PA-C Location:[facility] Appointment Type:URO Office Visit Diagnostic Tests Pending * U[facility]F (paroxysmal atrial fibrillation) [...] present documented in this encounter [facility] noteNo [place] [employer] Other Evaluation note* Diagnosis Persistent atrial fibrillation [...] in this encounter [facility] noteNo assessment information [facility] Work [facility]: evaluation note* Diagnosis PAF (paroxysmal atrial fibrillation) (HCC) [...] Diagnosis Onset Date Resolution Status Bronchitis acute [facility] Work Phone: evaluation note* Diagnosis Onset Date Resolution Status Admit Date A-fib acute February 12 9:16am Bilateral primary osteoarthr itis of hip acute February 12, 2025 9:16am Bilateral primary osteoarthr itis of knee acute February 12, 2025 9:16am Lumbar pain acute February 12 025 9:16am Medicare annual wellness vis it, subsequent acute February 12, 2025 9:16am JAVED on CPAP acute February 12 025 9:16am [facility] Work Phone: Evaluation note* Diagnosis PAF (paroxysmal atrial fibrillation) Atrial fibrillation Anticoagulated Encounter for long-term (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 Preop cardiovascular exam Pre-operative cardiovascular examination JAVED on CPAP Obstructive sleep apnea (adult) (pediatric) Obesity, unspecified class, unspecified obesity type, unspecified [...] Hospitalization History No Hospitalization histo ry information [facility] Other Hospital course Narrative No data available for this section [facility] Hospital Discharge instructions No data available for this section [facility] Hospital Discharge instructionsAmbulatory Orders* Referral to Orthopedic Surgery Location: [facility] Work Phone: Progress note No data available for this section [facility] Summary Purpose Family History Relationship [...] Date wellness February 12, 2025 9:[address] EVELYN LIZARRAGA TABITHA HIP PAIN [...] section and content) DATE CREATED AUTHOR 01/02/2018 [facility] DATE CREATED AUTHOR AUTHOR'S ORGANIZ ATION 04/24/2018 [employer] DATE CREATED AUTHOR AUTHOR'S ORGANIZ ATION 05/06/2018 [facility] DATE CREATED AUTHOR AUTHOR'S ORGANIZ ATION 12/16/2022 [facility] DATE CREATED AUTHOR AUTHOR'S ORGANIZ ATION 01/25/2024 [facility] DATE CREATED AUTHOR AUTHOR'S ORGANIZ ATION 04/15/2024 [facility] DATE CREATED AUTHOR AUTHOR'S ORGANIZ ATION 05/28/2024 [facility] DATE CREATED AUTHOR AUTHOR'S ORGANIZ ATION 03/29/2025 [facility] Reason for Visit (unrecogniz ed section and content) Reason Comments Refill Reason Onset Date Comments Refill 11/24/2021 Reason Onset Date Comments Refill 02/14/2023 Reason Onset Date Comments Question about medication 02/16/2023 Reason Onset Date Comments Refill 02/16/2023 Reason Comments Atrial fibrillation/flutter Reason Comments New patient, to establish relationship Reason Onset Date Comments Refill 11/06/2024 Reason Onset Date Comments Refill 04/02/2025 Care Teams (unrecognized sec tion and content) [employer] Relationship Specialty Start Date End Date Emperatriz Carnes DO [address] [place] [address] Physician Electrophysiology 04/14/20 [employer] Relationship Specialty Start Date End Date Emperatriz Carnes DO [address] [facility] [facility] [place] [address] Physician Electrophysiology 04/14/20 [employer] Relationship Specialty Start Date End Date Emperatriz Carnes DO [address] [facility] [facility] [place] [address] Physician Electrophysiology 04/14/20 [employer] Relationship Specialty Start Date End Date Emperatriz Carnes DO [address] [place] [address] [place] [address] Physician Electrophysiology 04/14/20 [employer] Relationship Specialty Start Date End Date Emperatriz Carnes DO [address] [place] [address] [place] [address] Physician Electrophysiology 04/14/20 [employer] Relationship Specialty Start Date End Date Emperatriz Carnes DO [address] [place] [address] [place] [address] Physician Electrophysiology 04/14/20 [employer] Relationship Specialty Start Date End Date Emperatriz Carnes DO [address] [place] [address] [place] [address] Physician Electrophysiology 04/14/20 [employer] Relationship Specialty Start Date End Date Emperatriz Carnes DO [address] [facility] [address] [place] [address] Physician Electrophysiology 04/14/20 [employer] Relationship Specialty Start Date End Date Emperatriz Carnes DO [address] [facility] [address] [place] [address] Physician Electrophysiology 04/14/20 Team Status: Active Member [...] October 19, 2023 End: October 19, 2023 [employer] Relationship Specialty Start Date End Date Emperatriz Carnes DO [address] [facility] [address] [place] [address] Physician Electrophysiology 04/14/20 [employer] Relationship Specialty Start Date End Date Emperatriz Carnes DO [address] [facility] [place] [address] Physician Electrophysiology 04/14/20 Team Status: Active Member [...] May 29, 2024 End: May 29, 2024 [employer] Relationship Specialty Start Date End Date Emperatriz Carnes DO [address] [facility] [facility] [address] [place] [address] Physician Electrophysiology 04/14/20 Prasanth Perez MD [address] [facility] [facility] [place] [address] Physician Cardiac Electrophysiology 05/11/24 [employer] Relationship Specialty Start Date End Date Emperatriz Carnes DO [address] [facility] [facility] [address] [place] [address] Physician Electrophysiology 04/14/20 Prasanth Perez MD [address] [facility] [place] [address] Physician Cardiac Electrophysiology 05/11/24 Team Status: Active [...] March 03, 2025 End: March 03, 2025 [employer] Relationship Specialty Start Date End Date Emperatriz Carnes DO [address] [facility] [place] [address] Physician Electrophysiology 04/14/20 Prasanth Perez MD [address] [facility] [facility] [place] [address] Physician Cardiac Electrophysiology 05/11/24 Goals (unrecognized section [...] BE BASED ON THE PRIMARY CLINICAL RECORDS. [facility] [employer] provides no warranty or guarantee of the accuracy or completeness of information in this document.
[2025-04-14 07:02] VITALS: BP 133/76; PULSE 74; TEMP 36.6; O2SAT 99
[2025-04-14 08:10] LABS: INR 2.50; Prothrombin Time 24.2 sec (9.0-11.6)
[2025-04-14 08:36] VITALS: PULSE 70; PULSE 74; O2SAT 97
[2025-04-14 08:37] VITALS: BP 150/70
[2025-04-14 08:38] VITALS: BP 148/70
[2025-04-14] MEDS: METHYLPREDNISOLONE ACETATE 40 MG/ML VIAL INJ (08:38)
[2025-04-14] MEDS: BUPIVACAINE HCL 0.25% PF 25 MG/10 ML VIAL 5 ML INJ (08:38)
--- NOTE | 2025-04-14 08:42 | W.PM.PROCNOT ---
Date of procedure: 04/14/25 Pre-op diagnosis: Pain due to right knee osteoarthritis Post-op diagnosis: same as pre-op Procedure: Procedure: Right genicular nerve block Medications: Bupivacaine 0.25% 4cc, depomedrol 40mg The patient was taken to the procedures suite and positioned in the supine position. I explained the details of the procedure to the patient including the risks, benefits and alternatives. We had an informed discussion and the patient verbalized understanding and signed the consent form. All questions were answered appropriately.? A 'time out' procedure was performed. The patient was identified, the chart was reviewed, and all allergies were confirmed. Laterality was conducted and marked. The right knee was marked with a sterile marking pen, prepped times three, and sterilely draped.? Under fluoroscopic guidance, branches of the genicular nerves were localized.? First the superior medial genicular nerve was localized where the femoral shaft meets the medial epicondyle.? Skin was anesthetized with 1% lidocaine.? A 25-gauge 3.5 in needle was advanced in a coaxial manner in the AP view.? This was repeated on the superior lateral genicular nerve where the femoral shaft meets the lateral epicondyle and the inferior medial genicular nerve where the medial tibial shaft meets the tibial epicondyle. After negative aspiration for blood or other bodily fluids, 1cc of medication was injected at each of the three sites. The needles were removed and the sites of injection were bandaged. The patient was transported to the postoperative area in good condition. Anesthesia: Local Surgeon: Blessing Granda Pathology: none sent Condition: stable Disposition: no change
== END 2025-04-14 08:46 | disposition home or self-care (01) ==
PROVIDERS: PCP Family Medicine; Visit Provider Anesthesiology
DX: M17.11 Unilateral primary osteoarthritis, right knee (principal); M25.561 Pain in right knee; Z79.01 Long term (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
CPT/HCPCS: 36415; 64454; 85610; J0665; J1010

== ENCOUNTER 2025-04-17 09:57 | Outpatient (OUT) | payer MEDICARE, SELFPAY ==
--- OUTSIDE RECORDS SUMMARY | 2025-04-17 10:14 | XMS_ITS | CCD ---
Author Organization [facility] Care Team Providers Care Exchange Consultant Name Role Phone PHYSICIAN, DEFAULT Unavailable Unavailable [...] FAWWAD, WOMACK H Admitting Unavailable LIZARRAGA, DR DONADL Ruano Primary Care Unavailable LIZARRAGA, DR DONALD [...] DONALD LIZARRAGA Primary Care Unavailable DR DONALD LIZRARAGA Primary Care Unavailable SHAIKH Gurwinder FARMER Attending Unavailable SHAIKH Gurwinder FARMER Admitting Unavailable Karim DO, Emperatriz Unavailable Karim DO, Emperatriz Unavailable CATHIE HERNANDEZ Attending Unavailable PRASANTH PEREZ Attending Unavailable PROVIDER, UNKNOWN Admitting Unavailable Donald Lizarraga MD Primary Care Provider [phone] Mariela Mosley APRN Attending Provider [phone] Donald Lizarraga Primary Care Unavailable Mariela Mosley [...] to adverse reactions to drug 12-29-19 [facility]) Decongestant Drug allergy 10-18-19 24 Unknown, [facility] (10 sources) DECONGESTANTS Propensity to adverse reactions 05-03-20 13 Unknown, [facility] Comment on above: Onset Date: 05/03/20 13 (3 sources) Allergies Reconciled Propensity to adverse reactions Unknown Lollipuff Other (3 sources) patient allergy list reviewed by nurse or physicia Propensity to adverse reactions 11-23-19 Comment:Done Lollipuff Other (1 source) No Known Medication Allergies; 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: [No Known Medication Allergies] Propensity to adverse reactions (disorder) [facility] Repository Medications Current Medications Medication Drug [...] and physician's handout, [facility]/pharmacy #[id number], 183.8, cm, 07/29/22 14:15:00 EST, Height/Length Dosing, [...] mouth. 01/24/2023 Active Sodium Sulfate-Mag Sulfate-KCl (Sutab) 8232-187-918 MG TABS (7 sources) Start: 07-29-2022 Sodium Sulfate -Mag Sulfate-KCl (Sutab) 0507-577-185 MG TABS Take by mouth. 07/29/2022 Active Start: 07-29-2022 Sodium Sulfate -Mag Sulfate-KCl (Sutab) 3936-633-956 MG TABS Take by mouth. 0 07/29/2022 [...] 5 mg-325 mg tablet 0 03/29/2023 Discontinued [id number] 200 actuat albuterol 0.09 mg/actuat metered dose [...] aftercare (20 sources) Drug therapy finding; 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: [biller (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] Onset: 09-03-2020 Episodic Other aftercare (1 source) snf (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; 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: [MCFP CURRNT USE 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] Onset: 12-07-2022 Episodic Other [...] and Corynebacterium diphtheriae antigens (medicinal product); 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: [Ymtbnvqazo-iwyjasp-r ertussis, combined [DTP] [DtaP]] Onset: 02-13-2014 Viral infection (1 source) COVID-19 Results Test Name Value Interpretation Reference Range Facility INR in Platelet poor plasma by Coagulation assayon 12-16-2024 INR Coag (PPP) [Relative time] 2.24 {INR} [facility] Comment on above: DESIRED INR:2.0-3.0 CONDITIONS NOT LISTED BELOW2.5-3.5 FOR PROSTHETIC HEART VALVE REPLACEMENT2.5-3.5 RECURRENT THROMBOSIS Prothrombin time (PT)on PT Coag (PPP) [Time] 21.9 s High 9.0-11.6 [facility] X-ray reportOrdered By: Luz Bryan on 05-26-2024 Study report [facility] [place] [address] XRay Report Signed Patient: Evangelist Ybarra MR#: [id number] : 1955 Acct:[id number] Age/Sex: 68 / M ADM Date: 4 Loc: XDUCLY Room: Type: [facility] Attending Dr: Mariela Mosley APRN Copies to: [...] Lupis Bryan M.D.05/26/2024 10:23 AM Dictation Location: [employer]-02 Transcribed By: LIV 05/26/24 1023 Dictated By: Lupis Bryan MD 05/26/24 1022 Signed By: 05/26/24 [facility]3 [facility] Work Phone: XR chest 2V*on 05-26-2024 XR chest 2V* [facility] [place] [address] XRay Report Signed Patient: Evangelist Ybarra MR#: [id number] : 1955 Acct:[id number] Age/Sex: 68 / M ADM Date: 05/26/24 Loc: XDUCLY Room: Type: [facility] Attending Dr: Mariela Mosley HOSPICE HOME HEALTH AIDE Copies to: Mariela Mosley APRN Ordering Provider: [...] Lupis Bryan M.D.05/26/2024 10:23 AM Dictation Location: [employer]-LiveBid Transcribed By: LIV 05/26/24 1023 Dictated By: Lupis Bryan MD 05/26/24 1022 Signed By: 05/26/24 1023 Normal [facility] Influenza virus A and B and SARS-CoV-2 (COVID-19) RNA panel - Respiratory system specon 05-08-2024 Influenza virus A and B RNA and SARS-CoV-2 (COVID-19) N gene panel ANNIE+probe (Resp) Influenza virus A and B and SARS-CoV-2 (COVID-19) RNA panel - Respiratory system spec [facility] Laboratory - Microbiology an d Antimicrobial susceptibilityon 05-08-2024 SARS-CoV-2 (COVID-19) RNA ANNIE+probe Ql (Unsp spec) Negative [facility] No Panel Informationon 05-08 POC Influenza B (ANNIE) Negative [facility] INR in Platelet poor plasma by Coagulation assayon 04-29-2024 INR Coag (PPP) [Relative time] 2.42 {INR} [facility] Comment on above: DESIRED INR:2.0-3.0 CONDITIONS NOT LISTED BELOW2.5-3.5 FOR PROSTHETIC HEART VALVE REPLACEMENT2.5-3.5 RECURRENT THROMBOSIS INR Coag (PPP) [Relative time] INR in Platelet poor plasma by Coagulation assay [facility] Comment on above: DESIRED INR:2.0-3.0 CONDITIONS NOT LISTED BELOW2.5-3.5 FOR PROSTHETIC HEART VALVE REPLACEMENT2.5-3.5 RECURRENT THROMBOSIS Prothrombin time (PT)on 04-10 PT Coag (PPP) [Time] 23.5 s High 9.0-11.6 [facility] PT Coag (PPP) [Time] Prothrombin time (PT) High 9.0-11.6 [facility] Progress Noteson 04-15-2024 Permanent Waver Authentication Interface Message Text EP video visit [...] his last visit, he had lexiscan at [facility] on 09/2016 that showe no [...] in 1 year Prior to your visit, [facility] shared information with you about the risks [...] 180 Tablet 3 Sodium Sulfate-Mag Sulfate-KCl (Sutab) 9215-885-001 MG TABS Take by mouth. AMLODIPINE BESYLATE [...] declined Stress: No Stress Concern Present (03/27/2023) [employer] [place] [employer] - Occupational Stress Questionnaire Feeling of Stress : Not at all Social Connections: Moderately Integrated (03/27/2023) Social Connection and Isolation Panel [NHANES] Frequency of Communicatio (more content not included)... Normal [facility] Ambulatory Visit Summaryon 0 01-23-2024 Ambulatory [...] needed Where: [address] [place] [address] [phone] Medications What How Much When Instructions Unchanged [...] ? Ne (more content not included)... Normal [facility] Provider Letteron 01-23-2024 Provider Letter Provider Letter DONALD LIZARRAGA, [facility] [place] [address] Re: EVANGELIST YBARRA Date of : [address] ELHAM JACKSON, EVANGELIST SWANSON was evaluated at [facility] 01/30/2024 10:00:00 As this patient has been stable, they will be released back to your care. We request that you continue to check PSA annually for prostate cancer screening Should the patient develop new symptoms, worsening condition, or abnormal imaging/labs in the future, do not hesitate to refer them back. Thanks! Provider Signature: Cathie Hernandez PA-C Physician Potato Picker [facility] [address] [place] [place] [address] Normal [facility] Urology Office/Clinic Noteon 01-23-2024 Urology Office/Clinic Note Urology Office/Clinic Note Chief Complaint 1 year follow up with PSA HPI Staff 68 year old patient presents today for a 1 year follow up with PSA. No recent PSA on [facility], [facility], or [facility] DX: BPH, ED & Elevated PSA TURP [...] prn at prior OV pending clearance from call center operations manager but pt never filled script. Not [...] GARCIA, CATHIE Ruano, URL Only if needed [address] [place] [place] [address] [phone] Additional Instructions: Patient Education Erectile Dysfunction Documentation [...] - De (more content not included)... Normal [facility] Comment on above: Result Comment: Elec [...] AM) Normal Negative [facility] UA Auto SS [place].plasma/Lith ium.RBC (Bld) [Mass ratio] 0-3 /HPF Normal [...] Desc Random Urine (01/24/23 10:19 AM) Normal [facility] UA Auto SS Urobilinogen Qn (U) [id number] {Anne'U}/dL Normal 0.0 - 1.0 EU/dL [facility] [...] UNA SEARS Date: 2022-11-10 09:46 Normal The [facility] CBC AUTO DIFFon 2022 BASO # 0.0 103/ul Normal 0.0-0.1 [facility] Comment on above: Performed By: #### C BC #### [facility] [address] [place] [address] Dr. Jason Pearson Basophils/100 WBC (Bld) 0.7 % Normal 0.2-2.0 [facility] Comment on above: Performed By: #### C BC #### [facility] [address] [place] [address] Dr. Jason Pearson EO # 0.2 103/ul Normal 0.0-0.7 [facility] Comment on above: Performed By: #### C BC #### [facility] [address] [place] [address] Dr. Jason Pearson Eosinophils/100 WBC (Bld) 3.7 % Normal 0.9-7.0 [facility] Comment on above: Performed By: #### C BC #### [facility] [address] [place] [address] Dr. Jason Pearson Erythrocyte distribution width (RBC) [Ratio] 14.0 % Normal 11.0-15.0 [facility] Comment on above: Performed By: #### C BC #### [facility] [address] [place] [address] Dr. Jason Pearson Hematocrit (Bld) [Volume fraction] 41.0 % Critically low 42.0-54.0 [facility] Comment on above: Performed By: #### C BC #### [facility] [address] [place] [address] Dr. Jason Pearson Hemoglobin (Bld) [Mass/Vol] 13.8 g/dL Critically low 14.0-18.0 [facility] Comment on above: Performed By: #### C BC #### [facility] [address] [place] [address] Dr. Jason Pearson IG # 0.01 10e3/ul Normal 0.00-0.03 [facility] Comment on above: Performed By: #### C BC #### [facility] [address] [place] [address] Dr. Jason Pearson IG % 0.2 % Normal 0.0-0.5 [facility] Comment on above: Performed By: #### C BC #### [facility] [address] [place] [address] Dr. Jason Pearson LYMPH # 1.3 103/ul Normal 1.2-3.8 [facility] Comment on above: Performed By: #### C BC #### [facility] [address] [place] [address] Dr. Jason Pearson Lymphocytes/100 WBC (Bld) 22.3 % Normal 20.5-60.0 [facility] Comment on above: Performed By: #### C BC #### [facility] [address] [place] [address] Dr. Jason Pearson MANUAL DIFF REQ NO Normal [facility] Comment on above: Performed By: #### C BC #### [facility] [address] [place] [address] Dr. Jason Pearson MCH (RBC) [Entitic mass] 32.6 pg Normal 25.9-34.0 [facility] Comment on above: Performed By: #### C BC #### [facility] [address] [place] [address] Dr. Jason Pearson MCHC (RBC) [Mass/Vol] 33.7 g/dL Normal 29.9-35.2 [facility] Comment on above: Performed By: #### C BC #### [facility] [address] [place] [address] Dr. Jason Pearson MCV (RBC) [Entitic vol] 96.9 fL Critically high 80.0-94.0 [facility] Comment on above: Performed By: #### C BC #### [facility] [address] [place] [address] Dr. Jason Pearson MONO # 0.6 103/ul Normal 0.3-0.8 [facility] Comment on above: Performed By: #### C BC #### [facility] [address] [place] [address] Dr. Jason Pearson Monocytes/100 WBC (Bld) 10.5 % Normal 1.7-12.0 [facility] Comment on above: Performed By: #### C BC #### [facility] [address] [place] [address] Dr. Jason Pearson NEUT # 3.7 103/ul Normal 1.4-6.5 [facility] Comment on above: Performed By: #### C BC #### [facility] [address] [place] [address] Dr. Jason Pearson Neutrophils/100 WBC (Bld) 62.6 % Normal 43.0-75.0 [facility] Comment on above: Performed By: #### C BC #### [facility] [address] [place] [address] Dr. Jason Pearson Platelet mean volume (Bld) [Entitic vol] 9.9 fL Normal 9.5-13.5 [facility] Comment on above: Performed By: #### C BC #### [facility] [address] [place] [address] Dr. Jason Pearson PLT 181 103/ul Normal 150-450 [facility] Comment on above: Performed By: #### C BC #### [facility] [address] [place] [address] Dr. Jason Pearson RBC 4.23 106/ul Critically low 4.70-6.10 [facility] Comment on above: Performed By: #### C BC #### [facility] [address] [place] [address] Dr. Jason Pearson WBC 5.9 103/ul Normal 4.0-11.0 [facility] Comment on above: Performed By: #### C BC #### [facility] [address] [place], [place] [address] Dr. Jason Pearson LIPID PROFILEon 2022 CHOL-HDL RATIO NORM SEE BELOW Normal [facility] Comment on above: Result Comment: 3.3 - 4.4 LOW RISK 4.4 - 7.1 AVERAGE RISK 7.1 - 11.0 MODERATE RISK >11.0 HIGH RISK Performed By: #### C MP, LIPID ####[facility] [address] [place], [place] [address]Hu. Jason Pearson Cholesterol [Mass/Vol] 163 mg/dL Normal <=200 [facility] Comment on above: Performed By: #### C MP, LIPID ####[facility] [address] [place], [place] [address]Da. Jason Pearson Cholesterol in HDL [Mass/Vol] 49 mg/dL Normal 40-60 [facility] Comment on above: Performed By: #### C MP, LIPID ####[facility] [address] [place] [id number]. Jason Pearson Cholesterol in LDL [Mass/Vol] 74.6 mg/dL Normal [facility] Comment on above: Performed By: #### C MP, LIPID ####[facility] [address] [place], [place] [address]Xv. Jason Pearson Cholesterol.total/C holesterol in HDL [Mass ratio] 3.3 {ratio} Normal [facility] Comment on above: Performed By: #### C MP, LIPID ####[facility] [address] [place], [place] [address]Cc. Jason Pearson HDL NORMAL > or = 60 mg/dl - LO W CARDIOVASCULAR RISK <40 mg/dl - HIGH CARDIOVASCULAR RISK Normal [facility] Comment on above: Performed By: #### C MP, LIPID ####[facility] [address] [place], [place] [address]Dp. Jason Pearson LDL CALC NORMAL SEE BELOW Normal [facility] Comment on above: Result Comment: <100 mg/dl OPTIMAL 100 - 129 mg/dl NEAR OR ABOVE OPTIMAL 130 - 159 mg/dl BORDERLINE HIGH 160 - 189 mg/dl HIGH >190 mg/dl VERY HIGH Performed By: #### C MP, LIPID ####[facility] [address] [place] [id number]. Jason Pearson Triglyceride [Mass/Vol] 197 mg/dL Critically high <=150 [facility] Comment on above: Performed By: #### C MP, LIPID ####[facility] [address] [place] [id number] Pearson VLDL CALC 39.4 mg/dL Normal [facility] Comment on above: Performed By: #### C MP, LIPID ####[facility] [address] [place] [id number] Pearson MICROALBUMIN, RAND URon 03-0 mALB 1.3 mg/L Normal <=30.0 [facility] Comment on above: Performed By: #### M ALBR ####[facility] [address] [place] [id number]. Jason Pearson PROF 14(COMP METB)on 023 Albumin [Mass/Vol] 3.7 g/dL Normal 3.4-5.0 [facility] Comment on above: Performed By: #### C MP, LIPID #### [facility] [address] [place] [address] Dr. Jason Pearson Albumin/Globulin [Mass ratio] 1.0 {ratio} Normal [facility] Comment on above: Performed By: #### C MP, LIPID #### [facility] [address] [place] [address] [address] Jason Pearson ALP [Catalytic activity/Vol] 56 U/L Normal 46-116 [facility] Comment on above: Performed By: #### C MP, LIPID #### [facility] [address] [place] [address] [address] Jason Pearson ALT [Catalytic activity/Vol] 43 U/L Normal 16-63 [facility] Comment on above: Performed By: #### C MP, LIPID #### [facility] [address] [place] [address] [address] Jason Pearson Anion gap [Moles/Vol] 11.2 mmol/L Normal [facility] Comment on above: Performed By: #### C MP, LIPID #### [facility] [address] [place] [address] Dr. Jason Pearson AST [Catalytic activity/Vol] 24 U/L Normal 15-37 [facility] Comment on above: Performed By: #### C MP, LIPID #### [facility] [address] [place] [address] Dr. Jason Pearson Bilirubin [Mass/Vol] 0.9 mg/dL Normal 0.2-1.0 [facility] Comment on above: Performed By: #### C MP, LIPID #### [facility] [address] [place] [address] Dr. Jason Pearson Calcium [Mass/Vol] 9.6 mg/dL Normal 8.5-10.1 [facility] Comment on above: Performed By: #### C MP, LIPID #### [facility] [address] [place] [address] Dr. Jason Pearson Chloride [Moles/Vol] 106 mmol/L Normal 98-107 [facility] Comment on above: Performed By: #### C MP, LIPID #### [facility] [address] [place] [address] Dr. Jason Pearson CO2 [Moles/Vol] 30.1 mmol/L Normal 21.0-32.0 [facility] Comment on above: Performed By: #### C MP, LIPID #### [facility] [address] [place] [address] Dr. Jason Pearson Creatinine [Mass/Vol] 1.00 mg/dL Normal 0.70-1.30 [facility] Comment on above: Performed By: #### C MP, LIPID #### [facility] [address] [place] [address] Dr. Jason Pearson EGFR-AF EGYPTIAN >60 Normal >=60 [facility] Comment on above: Performed By: #### C MP, LIPID #### [facility] [address] [place] [address] Dr. Jason Pearson EGFR-NON AF EGYPTIAN >60 Normal >=60 [facility] Comment on above: Performed By: #### C MP, LIPID #### [facility] [address] [place] [address] Dr. Jason Pearson Globulin (S) [Mass/Vol] 3.6 g/dL Normal [facility] Comment on above: Performed By: #### C MP, LIPID #### [facility] [address] [place] [address] Dr. Jason Pearson Glucose [Mass/Vol] 110 mg/dL Critically high 74-106 [facility] Comment on above: Performed By: #### C MP, LIPID #### [facility] [address] [place] [address] Dr. Jason Pearson Potassium [Moles/Vol] 4.3 mmol/L Normal 3.5-5.1 [facility] Comment on above: Performed By: #### C MP, LIPID #### [facility] [address] [place] [address] Dr. Jason Pearson Protein [Mass/Vol] 7.3 g/dL Normal 6.4-8.2 [facility] Comment on above: Performed By: #### C MP, LIPID #### [facility] [address] [place] [address] Dr. Jason Pearson Sodium [Moles/Vol] 143 mmol/L Normal 136-145 [facility] Comment on above: Performed By: #### C MP, LIPID #### [facility] [address] [place] [address] Dr. Jason Pearson Urea nitrogen [Mass/Vol] 15.0 mg/dL Normal 7.0-18.0 [facility] Comment on above: Performed By: #### C MP, LIPID #### [facility] [address] [place] [address] Dr. Jason Pearson Urea nitrogen/Creatinine [Mass ratio] 15.0 mg/mg Normal [facility] Comment on above: Performed By: #### C MP, LIPID #### [facility] [address] [place] [address] Dr. Jason Pearson PROTIMEon 06-28-2022 INR Coag (PPP) [Relative time] 1.11 {INR} Normal [facility] Comment on above: Performed By: #### P T ####[facility] [address] [place] [address]Dr. Jason Pearson INR GUIDELINES SEE BELOW Normal [facility] Comment on above: Result Comment: KOFI RED INR: 2.0 - 3.0 CONDITIONS NOT LISTED BELOW 2.5 - 3.5 FOR PROSTHETIC HEART VALVE REPLACEMENT 2.5 - 3.5 RECURRENT THROMBOSIS Performed By: #### P T ####[facility] [address] [place] [address]Dr. Jason Pearson PT Coag (PPP) [Time] 11.9 s Critically high 9.0-11.6 [facility] Comment on above: Performed By: #### P T ####[facility] [address] [place] [address]Dr. Jason Pearson PROTIMEon 03-22-2022 INR Coag (PPP) [Relative time] 1.32 {INR} Normal [facility] Comment on above: Performed By: #### P T #### [facility] [address] [place] [address] [address] Jason Pearson INR GUIDELINES SEE BELOW Normal [facility] Comment on above: Result Comment: KOFI RED INR: 2.0 - 3.0 CONDITIONS NOT LISTED BELOW 2.5 - 3.5 FOR PROSTHETIC HEART VALVE REPLACEMENT 2.5 - 3.5 RECURRENT THROMBOSIS Performed By: #### P T #### [facility] [address] [place] [address] [address] Jason Pearson PT Coag (PPP) [Time] 14.0 s Critically high 9.0-11.6 [facility] Comment on above: Performed By: #### P T #### [facility] [address] [place] [address] [address] Jason Pearson PROTIMEon 02-07-2022 INR Coag (PPP) [Relative time] 1.08 {INR} Normal [facility] Comment on above: Performed By: #### P T #### [facility] [address] [place] [address] [address] Jason Pearson INR GUIDELINES SEE BELOW Normal [facility] Comment on above: Result Comment: KOFI RED INR: 2.0 - 3.0 CONDITIONS NOT LISTED BELOW 2.5 - 3.5 FOR PROSTHETIC HEART VALVE REPLACEMENT 2.5 - 3.5 RECURRENT THROMBOSIS Performed By: #### P T #### [facility] [address] [place] [address] [address] Jason Pearson PT Coag (PPP) [Time] 11.6 s Normal 9.0-11.6 [facility] Comment on above: Performed By: #### P T #### [facility] [address] [place] [address] [address] Jason Pearson XR HIP RT INJon [...] RUPERT MOON Date: 2022-02-07 11:09 Normal [facility] Initial Visit (Gastroenterol ogy)on 03-28-2018 Initial [...] from the patient and documented on the [facility] health history questionnaire. Pertinent positives [...] MG Oral Tablet; TAKE 1 TABLET DAILY;Therapy: (Recorded:[id number]) to Recorded Dispense: 0 Days ; #: Sufficient Tablet; Refill: 0; KP = N; Record; Last Updated By: Toyin Angeles; 03/28/2018 9:14:26 AM Flecainide Acetate 100 MG Oral Tablet; TAKE 1 TABLET EVERY 12 HOURS DAILY;Therapy: (Recorded:[id number]) to Recorded Dispense: 0 Days ; #: Sufficient Tablet; Refill: 0; KP = N; Record; Last Updated By: Toyin Angeles; 03/28/2018 9:14:26 AM HydroCHLOROthiazide 25 MG Oral Tablet; TAKE 1 TABLET DAILY;Therapy: (Recorded:[id number]) to Recorded Dispense: 0 Days ; #: Sufficient Tablet; Refill: 0; KP = N; Record; Last Updated By: Toyin Angeles; 03/28/2018 9:14:26 AM Imodium A-D CAPS;Therapy: (Recorded:[id number]) to Recorded Dispense: 0 Days ; #: Sufficient CAPS; Refill: 0; KP = N; Record; Last Updated By: Toyin Angeles; 03/28/2018 9:14:26 AM Klor-Con M20 20 MEQ Oral Tablet Extended Release; TAKE 2 TABLETS TWICE DAILY;Therapy: (Recorded:[id number]) to Recorded Dispense: 0 Days ; #: Sufficient Tablet Extended Release; Refill: 0; KP = N; Record; Last Updated By: Toyin Angeles; 03/28/2018 9:14:26 AM Lisinopril 40 MG Oral Tablet; TAKE 1 TABLET DAILY;Therapy: (Recorded:[id number]) to Recorded Dispense: 0 Days ; #: Sufficient Tablet; Refill: 0; KP = N; Record; Last Updated By: Toyin Angeles; 03/28/2018 9:14:26 AM Loratadine 10 MG Oral Tablet; TAKE 1 TABLET DAILY;Therapy: (Recorded:[id number]) to Recorded Dispense: 0 Days ; #: Sufficient Tablet; Refill: 0; KP = N; Record; Last Updated By: Toyin Angeles; 03/28/2018 9:14:26 AM Metoprolol Tartrate 100 MG Oral Tablet; TAKE 1 TABLET DAILY;Therapy: (Recorded:[id number]) to Recorded Dispense: 0 Days ; #: Sufficient Tablet; Refill: 0; KP = N; Record; Last Updated By: Toyin Angeles; 03/28/2018 9:14:26 AM Multivitamins TABS;Therapy: (Recorded:[id number]) to Recorded Dispense: 0 Days ; #: Sufficient TABS; Refill: 0; KP = N; Record; Last Updated By: Toyin Angeles; 03/28/2018 9:14:26 AM Tamsulosin HCl - 0.4 MG Oral Capsule;Therapy: (Recorded:[id number]) to Recorded Dispense: 0 Days ; #: Sufficient Capsule; Refill: 0; KP = N; Record; Last Updated By: Toyin Angeles; 03/28/2018 9:14:26 AM Vitamin B-12 ER 1500 MCG Oral Tablet Extended Release;Therapy: (Recorded:[id number]) to Recorded Dispense: 0 Days ; #: Sufficient TBCR; Refill: 0; KP = N; Record; Last Updated By: Toyin Angeles; 03/28/2018 9:14:26 AM Vitamin D3 2000 UNIT Oral Tablet;Therapy: (Recorded:28Mar2018) to Recorded Dispense: 0 Days ; #: Sufficient Tablet; Refill: 0; KP = N; Record; Last Updated By: Toyin Angeles; 03/28/2018 9:14:26 AM Warfarin Sodium 5 MG Oral Tablet; TAKE 1 TABLET DAILY;Therapy: (Recorded:[id number]) to Recorded Dispense: 0 Days ; #: Sufficient Tablet; Refill: 0; KP = N; Record; Last Updated By: Toyin Angeles; 03/28/2018 9:14:26 AM Vitals Vital Signs Recorded: 28Mar2018 09:12AMHeart Ncqo04Tlyhjemflod12Mkiaqujc53 3Qtoofepgt19Ntlxdd3 ft 2 ndPzwhrt932 lb 6 ozBMI Vssyxtkwst45.52BSA Calculated2.67 Physical ExamConstitutional General appearance: In no [...] Verified Transmission to [id number]; Last Updated By: Rafi Rhodes; 03/28/2018 9:44:38 [...] MG Oral Tablet; TAKE 1 TABLET DAILY;Therapy: (Recorded:[id number]) to RecordedCholestyramine Light 4 GM Oral Packet; MIX THE CONTENTS OF 1 POWDER PACKETWITH 2-6 OZ OF NONCARBONATED BEVERAGE AND SWALLOW ONCE DAILY;Therapy: [id number] to (Evaluate:[id number]) Requested for: [id number]; LastRx:[id number] OrderedFlecainide Acetate 100 MG Oral Tablet; TAKE 1 TABLET EVERY 12 HOURS DAILY;Therapy: (Recorded:[id number]) to RecordedHydroCHLOROthiazide 25 MG Oral Tablet; TAKE 1 TABLET DAILY;Therapy: (Recorded:[id number]) to RecordedImodium A-D CAPS (Loperamide HCl);Therapy: (Recorded:[id number]) to RecordedKlor-Con M20 20 MEQ Oral Tablet Extended Release; TAKE 2 TABLETS TWICE DAILY;Therapy: (Recorded:[id number]) to RecordedLisinopril 40 MG Oral Tablet; TAKE 1 TABLET DAILY;Therapy: (Recorded:[id number]) to RecordedLoratadine 10 MG Oral Tablet; TAKE 1 TABLET DAILY;Therapy: (Recorded:[id number]) to RecordedMetoprolol Tartrate 100 MG Oral Tablet; TAKE 1 TABLET DAILY;Therapy: (Recorded:[id number]) to RecordedMultivitamins TABS;Therapy: (Recorded:[id number]) to RecordedTamsulosin HCl - 0.4 MG Oral Capsule;Therapy: (Recorded:[id number]) to RecordedVitamin B-12 ER 1500 MCG Oral Tablet Extended Release;Therapy: (Recorded:[id number]) to RecordedVitamin D3 2000 UNIT Oral Tablet;Therapy: (Recorded:[id number]) to RecordedWarfarin Sodium 5 MG Oral Tablet; TAKE 1 TABLET DAILY;Therapy: (Recorded:[id number]) to Recorded Signatures Electronically signed by : Devin Greer DO; Mar 28 2018 9:51AM EST (Author) Normal [employer] Vital Signs Date Time Vital Sign Value Performing Clinician Facility 03-03-2025 10:51-0400 Body height 187.96 cm Donald Lizarraga MD Work Phone: [facility] 03-03-2025 10:51-0400 Body mass index (BMI) [Ratio] 38.1 kg/m2 Donald Lizarraga MD Work Phone: [facility] 03-03-2025 10:51-0400 Body weight 134.7 kg Donald Lizarraga MD Work Phone: [facility] 02-12-2025 09:22-0400 Body height 187.96 cm Donald Lizarraga MD Work Phone: [facility] 02-12-2025 09:22-0400 Body mass index (BMI) [Ratio] 38.1 kg/m2 Donald Lizarraga MD Work Phone: [facility] 02-12-2025 09:22-0400 Body weight 134.71 kg Donald Lizarraga MD Work Phone: [facility] 02-12-2025 09:22-0400 Diastolic blood pressure 77 mm[Hg] Donald Lizarraga MD Work Phone: [facility] 02-12-2025 09:22-0400 Heart rate 61 /min Donald Lizarraga MD Work Phone: [facility] 02-12-2025 09:22-0400 Systolic blood pressure 128 mm[Hg] Donald Lizarraga MD Work Phone: [facility] 05-29-2024 09:52-0500 Body height 187.96 cm Donald Lizarraga MD Work Phone: [facility] 05-29-2024 09:52-0500 Body mass index (BMI) [Ratio] 38.4 kg/m2 Donald Lizarraga MD Work Phone: [facility] 05-29-2024 09:52-0500 Body temperature 98.5 [degF] Donald Lizarraga MD Work Phone: [facility] 05-29-2024 09:52-0500 Body weight 135.62 kg Donald Lizarraga MD Work Phone: [facility] 05-29-2024 09:52-0500 Diastolic blood pressure 81 mm[Hg] Donald Lizarraga MD Work Phone: [facility] 05-29-2024 09:52-0500 Heart rate 73 /min Donald Lizarraga MD Work Phone: [facility] 05-29-2024 09:52-0500 SaO2% (BldA) [Mass fraction] 98 % Donald Lizarraga MD Work Phone: [facility] 05-29-2024 09:52-0500 Systolic blood pressure 137 mm[Hg] Donald Lizarraga MD Work Phone: [facility] 05-26-2024 09:18-0500 Body height 187.96 cm Donald Lizarraga MD Work Phone: [facility] 05-26-2024 09:18-0500 Body mass index (BMI) [Ratio] 38.5 kg/m2 Donald Lizarraga MD Work Phone: [facility] 05-26-2024 09:18-0500 Body temperature 98.1 [degF] Donald Lizarraga MD Work Phone: [facility] 05-26-2024 09:18-0500 Body weight 136.13 kg Donald Lizarraga MD Work Phone: [facility] 05-26-2024 09:18-0500 Diastolic blood pressure 77 mm[Hg] Donald Lizarraga MD Work Phone: [facility] 05-26-2024 09:18-0500 Heart rate 73 /min Donald Lizarraga MD Work Phone: [facility] 05-26-2024 09:18-0500 Respiratory rate 18 /min Donald Lizarraga MD Work Phone: [facility] 05-26-2024 09:18-0500 SaO2% (BldA) [Mass fraction] 96 % Donald Lizarraga MD Work Phone: [facility] 05-26-2024 09:18-0500 Systolic blood pressure 127 mm[Hg] Donald Lizarraga MD Work Phone: [facility] 05-08-2024 09:24-0400 Body height 187.96 cm [facility] 05-08-2024 09:24-0400 Body mass index (BMI) [Ratio] 38.8 kg/m2 [facility] 05-08-2024 09:24-0400 Body temperature 98 [degF] [facility] 05-08-2024 09:24-0400 Body weight 137.15 kg [facility] 05-08-2024 09:24-0400 Diastolic blood pressure 73 mm[Hg] [facility] 05-08-2024 09:24-0400 Heart rate 70 /min [facility] 05-08-2024 09:24-0400 Respiratory rate 18 /min [facility] 05-08-2024 09:24-0400 SaO2% (BldA) [Mass fraction] 98 % [facility] 05-08-2024 09:24-0400 Systolic blood pressure 167 mm[Hg] [facility] 01-23-2024 14:11-0400 Blood Pressure Location CATHIE HERNANDEZ [facility] 01-23-2024 14:11-0400 Body temperature 97.88 [degF] CATHIE HERNANDEZ [facility] 01-23-2024 14:11-0400 Diastolic blood pressure 74 mm[Hg] CATHIE AZEVEDORY [facility] 01-23-2024 14:11-0400 Heart rate 67 /min CATHIE AZEVEDORY [facility] 01-23-2024 14:11-0400 Respiratory rate 16 /min CATHIE AZEVEDORY [facility] 01-23-2024 14:11-0400 Systolic blood pressure 138 mm[Hg] CATHIE HERNANDEZ [facility] 10-19-2023 10:19-0400 Body height 187.96 cm [facility] 10-19-2023 10:19-0400 Body mass index (BMI) [Ratio] 40.1 kg/m2 [facility] 10-19-2023 10:19-0400 Body weight 141.63 kg [facility] 10-19-2023 10:19-0400 Diastolic blood pressure 84 mm[Hg] [facility] 10-19-2023 10:19-0400 Heart rate 71 /min [facility] 10-19-2023 10:19-0400 SaO2% (BldA) [Mass fraction] 98 % [facility] 10-19-2023 10:19-0400 Systolic blood pressure 132 mm[Hg] [facility] 07-13-2023 15:30-0500 Body height 187.96 cm Donald Lizarraga Other [employer] Other 07-13-2023 15:30-0500 Body mass index (BMI) [Ratio] 40.18 kg/m2 Donald Lizarraga Other [employer] Other 07-13-2023 15:30-0500 Body weight 141.98 kg Donald Lizarraga Other [employer] Other 07-13-2023 15:30-0500 Diastolic blood pressure 86 mm[Hg] Donald Lizarraga Other [employer] Other 07-13-2023 15:30-0500 Systolic blood pressure 142 mm[Hg] Donald Lizarraga Other [facility] Other 01-24-2023 10:00-0400 Blood Pressure Location CATHIE TIANA [facility] 01-24-2023 10:00-0400 Diastolic blood pressure 80 mm[Hg] CATHIE TIANA [facility] 01-24-2023 10:00-0400 Heart rate 72 /min CATHIE TIANA [facility] 01-24-2023 10:00-0400 Respiratory rate 16 /min CATHIE TIANA [facility] 01-24-2023 10:00-0400 Systolic blood pressure 130 mm[Hg] CATHIE TIANA [facility] 10-06-2022 10:17-0400 Diastolic blood pressure 78 mm[Hg] Daigle SALAM [facility] 10-06-2022 10:17-0400 Heart rate 69 /min Daigle SALAM [facility] 10-06-2022 10:17-0400 Respiratory rate 16 /min Daigle SALAM [facility] 10-06-2022 10:17-0400 SaO2% (BldA) [Mass fraction] 99 % Daigle SALAM [facility] 10-06-2022 10:17-0400 Systolic blood pressure 122 mm[Hg] Daigle SALAM [facility] 10-06-2022 10:05-0400 Diastolic blood pressure 76 mm[Hg] Daigle SALAM [facility] 10-06-2022 10:05-0400 Heart rate 67 /min Daigle SALAM [facility] 10-06-2022 10:05-0400 Respiratory rate 18 /min Daigle SALAM [facility] 10-06-2022 10:05-0400 SaO2% (BldA) [Mass fraction] 99 % Daigle SALAM [facility] 10-06-2022 10:05-0400 Systolic blood pressure 135 mm[Hg] Daigle SALAM [facility] 10-06-2022 10:00-0400 Diastolic blood pressure 70 mm[Hg] Daigle SALAM [facility] 10-06-2022 10:00-0400 Heart rate 66 /min Daigle SALAM [facility] 10-06-2022 10:00-0400 Systolic blood pressure 134 mm[Hg] Daigle SALAM [facility] 10-06-2022 09:55-0400 Respiratory rate 16 /min Daigle SALAM [facility] 10-06-2022 09:52-0400 Body temperature 97.7 [degF] Daigle SALAM [facility] 10-06-2022 09:40-0400 Respiratory rate 1 /min Daigle SALAM [facility] 10-06-2022 08:21-0400 Blood Pressure Location Daigle SALAM [facility] 10-06-2022 08:21-0400 Body temperature 97.88 [degF] Daigle SALAM [facility] 07-29-2022 14:15-0500 Diastolic blood pressure 88 mm[Hg] Elicia Mcmillan [facility] 07-29-2022 14:15-0500 Mean blood pressure 105 mm[Hg] Elicia Mcmillan [facility] 07-29-2022 14:15-0500 Systolic blood pressure 138 mm[Hg] Elicia Mcmillan [facility] 07-29-2022 14:11-0500 Blood Pressure Location Elicia Mcmillan [facility] 07-29-2022 14:11-0500 Body temperature 97.88 [degF] Elicia Mcmillan [facility] 07-29-2022 14:11-0500 Diastolic blood pressure 87 mm[Hg] Elicia Mcmillan [facility] 07-29-2022 14:11-0500 Heart rate 77 /min Elicia Mcmillan [facility] 07-29-2022 14:11-0500 Systolic blood pressure 147 mm[Hg] Elicia Mcmillan [facility] 07-26-2022 10:45-0500 Body height 187.96 cm Donald Lizarraga Other [employer] Other 07-26-2022 10:45-0500 Body mass index (BMI) [Ratio] 41.47 kg/m2 Donald Lizarraga Other [facility] Other 07-26-2022 10:45-0500 Body weight 146.51 kg Donald Lizarraga Other [facility] Other 07-26-2022 10:45-0500 Diastolic blood pressure 84 mm[Hg] Donald Lizarraga Other [employer] Other 07-26-2022 10:45-0500 SaO2% (BldA) [Mass fraction] 97 % Donald Lizarraga Other [employer] [facility] Other 07-26-2022 10:45-0500 Systolic blood pressure 142 mm[Hg] Donald Lizarraga Other [facility] Other 10-27-2021 12:02-0400 Blood Pressure Location CATHIE HERNANDEZ [facility] 10-27-2021 12:02-0400 Diastolic blood pressure 78 mm[Hg] CATHIE HERNANDEZ [facility] 10-27-2021 12:02-0400 Heart rate 77 /min CATHIE HERNANDEZ [facility] 10-27-2021 12:02-0400 Systolic blood pressure 141 mm[Hg] CATHIE HERNANDEZ [facility] Encounters Encounter Date Encounter Type Care Provider Facility Start: 04-02-2025 End: 04-02-2025 Patient encounter status Prasanth Perez MD Work Phone: [facility] Start: 04-02-2025 End: 04-02-2025 Refill Prasanth Perez MD Work Phone: [facility] Comment on above: Refill Start: 03-24-2025 End: 03-24-2025 ambulatory Blessing Granda MD Facility:[facility] Start: 03-03-2025 End: 03-03-2025 ambulatory Donald Lizarraga MD Work Phone: [facility] Work Phone: Start: 03-03-2025 End: 03-03-2025 Patient encounter procedure Peter Auguste DO -[facility] [place] Work Phone: Start: 02-12-2025 End: 02-12-2025 ambulatory Donald Lizarraga MD Work Phone: [facility] Work Phone: Start: 02-12-2025 End: 02-12-2025 Patient encounter procedure Donald Lizarraga MD -[facility] Work Phone: Start: 12-23-2024 End: 12-23-2024 ambulatory Blessing Granda MD Facility:[facility] Start: 12-16-2024 Non-patient / Non-visit Blessing cui MD -[facility] Work Phone: Start: 12-16-2024 End: 12-16-2024 ambulatory Blessing Granda MD Facility:[facility] Start: 12-14-2024 End: 12-14-2024 Letter encounter Emperatriz Carnes Work Phone: [facility] Start: 11-28-2024 Non-patient / Non-visit Merlyn Mesa CMA -[facility] Work Phone: Start: 11-25-2024 End: 11-25-2024 ambulatory [facility] Start: 11-06-2024 End: 11-06-2024 Refill Prasanth Perez MD Work Phone: [facility] Comment on above: Refill Start: 05-29-2024 End: 05-29-2024 ambulatory Donald Lizarraga MD Work Phone: [facility] Work Phone: Start: 05-29-2024 End: 05-29-2024 Patient encounter procedure Donald Lizarraga MD Work Phone: [facility] Work Phone: Start: 05-26-2024 End: 05-26-2024 ambulatory Donald Lizarraga MD Work Phone: [facility] Work Phone: Start: 05-26-2024 End: 05-26-2024 Patient encounter procedure Donald Lizarraga MD Work Phone: [facility] Work Phone: Start: 05-08-2024 End: 05-08-2024 ambulatory [facility] Work Phone: Start: 05-08-2024 End: 05-08-2024 Patient encounter procedure [facility] Physician [facility] Work Phone: Start: 04-29-2024 Non-patient / Non-visit [facility] Work Phone: Start: 04-29-2024 End: 04-29-2024 ambulatory Blessing Granda MD Facility:[facility] Start: 04-15-2024 End: 04-15-2024 Office outpatient visit 25 minutes Prasanth Perez MD Work Phone: [facility] Comment on above: PAF (paroxysmal atri al fibrillation) (HCC) (Primary Dx) Start: 04-15-2024 End: 04-15-2024 ambulatory [facility]TH [facility] Start: 01-23-2024 End: 01-23-2024 ambulatory CATHIE HERNANDEZ Facility:[facility] Start: 01-23-2024 End: 01-23-2024 Patient encounter procedure CATHIE HERNANDEZ [facility] Start: 12-27-2023 End: 12-28-2023 Patient encounter status Emperatriz Karim DO Work Phone: [employer] Start: 12-27-2023 End: 12-28-2023 Refill Emperatriz Karim DO Work Phone: [facility] Comment on above: Refill Start: 10-19-2023 End: 10-19-2023 ambulatory [facility] Work Phone: Start: 10-19-2023 End: 10-19-2023 Patient encounter procedure [facility] Physician [facility] Work Phone: Start: 09-07-2023 Non-patient / Non-visit [facility] Physician [facility] Work Phone: Start: 07-20-2023 End: 07-20-2023 ambulatory Donald Lizarraga Other [employer] Other Start: 07-20-2023 Telephone encounter Donald Lizarraga [facility] Start: 07-13-2023 End: 07-13-2023 ambulatory Donald Lizarraga Other [employer] Other Start: 07-13-2023 Office outpatient vi sit 15 minutes Donald Lizarraga [facility] Start: 04-04-2023 Patient encounter status Emperatriz Karim DO Work Phone: [facility] Start: 04-04-2023 Refill Emperatriz Karim DO Work Phone: [facility] Comment on above: Refill Start: 03-29-2023 End: 03-29-2023 Office outpatient visit 15 minutes Emperatriz Karim DO Work Phone: [facility] Comment on above: Persistent atrial fi brillation (HCC) (Primary Dx); Anticoagulated; JAVED on CPAP Start: 03-28-2023 End: 03-28-2023 ambulatory Donald Lizarraga Other [employer] Other Start: 03-28-2023 Telephone encounter Donald Lizarraga [facility] Start: 03-18-2023 Letter encounter Emperatriz Rodolfoim D O Work Phone: [employer] Start: 02-16-2023 Telephone encounter Emperatrizquique Reynoldsi m DO Work Phone: [facility] Comment on above: Question about medic ation Refill Start: 02-14-2023 Patient encounter status [facility] Carnes [facility] Start: 02-14-2023 Refill Emperatriz Carnes DO Work Phone: [facility] Comment on above: Refill Start: 01-24-2023 End: 01-24-2023 Lab Drop off CATHIE HERNANDEZ [facility] Start: 01-24-2023 End: 01-24-2023 Patient encounter procedure CATHIE HERNANDEZ [facility] Start: 11-10-2022 End: 11-11-2022 ambulatory JEET HERNÁNDEZ . Facility:[facility] Start: 11-07-2022 End: 12-07-[address] DONALD LIZARRAGA Facility:[facility] Start: 10-13-2022 ambulatory NARENDRANATH LAKSHMIPATHY . Facility:[facility] Start: 10-11-2022 (Televisit) Televisit Donald Leon [facility] Start: 10-11-2022 End: 10-11-2022 ambulatory Donald Lizarraga Other [employer] [facility] Other Start: 10-10-2022 End: 11-04-2022 ambulatory SHAIKH Gurwinder FARMER Facility:[facility] Start: 10-06-2022 End: 10-06-2022 Patient encounter procedure Oxana IBARRA [facility] Start: 2022 Telephone encounter Donald BARRERA [facility] Start: 2022 End: 09-09-[address] DONALD LIZARRAGA [employer] Other Start: 09-07-2022 End: 10-07-2022 ambulatory SHAIKH Gurwinder FARMER Facility:[facility] Start: 08-10-2022 End: 09-07-2022 ambulatory SHAIKH Gurwinder FARMER Facility:[facility] Start: 07-29-2022 End: 07-29-2022 Patient encounter procedure Elicia Mcmillan [facility] Start: 07-26-2022 End: 07-26-2022 ambulatory Donald Lizarraga Other [facility] Other Start: 07-26-2022 Office outpatient vi sit 15 minutes Donald Lizarraga [facility] Start: 07-20-2022 End: 07-21-[address] JADEN [...] encounter status Emperatriz Carnes DO Work Phone: [facility] Start: 02-27-2022 Refill Emper[facility]rizquique Reynoldsim [facility] Comment on above: Refill Start: 02-07-2022 End: 02-07-[address] DONALD LIZARRAGA Facility:[facility] Start: 02-07-2022 End: 03-09-[address] DONALD LIZARRAGA Facility:[facility] Start: 01-15-2022 Refill Emperatriz Karim DO Work Phone: [facility] Comment on above: Refill Start: 01-07-2022 End: 02-04-[address] DONALD LIZARRAGA Facility:[facility] Start: 11-24-2021 Patient encounter status Emperatriz Karim DO Work Phone: [facility] Start: 11-24-2021 Refill Emperatriz Karim DO Work Phone: [facility] Comment on above: Refill Start: 11-24-2021 Refill Emperatriz Karim DO Work Phone: [facility] Comment on above: Refill Start: 10-27-2021 End: 10-27-2021 Patient encounter procedure CATHIE HERNANDEZ [facility] Start: 03-28-2018 Patient encounter Devin Greer Fa cility:[facility] Start: 04-24-2017 End: 04-25-2017 Ambulatory DEFAULT PHYSICIAN Facility:[facility] Start: 03-03-2017 End: 03-04-2017 Ambulatory DEFAULT PHYSICIAN Facility:[facility] Procedures Date Procedure Procedure Detail Performing Clinician Start: 05-26-2024 Plain chest X-ray Donald Lizarraga MD Work Phone: Start: 10-06-2022 Colonoscopy Oxana IBARRA Start: [address] JADEN VILLA . Comment on above: Performed By: #### [facility] #### [facility] [address] [place] [address] Dr. Jason Pearson Start: 04-23-2020 Transurethral prostatectomy [...] Vaccine (#1) [facility] Start: 02-12-2025 Patient referral [facility] Work Phone: Start: 03-10-2024 COVID-19 Vaccine ( season) COVID-19 Vaccine ( season) [facility] Start: 03-10-2024 COVID-19 Vaccine ( season) COVID-19 Vaccine ( season) [facility] Start: 03-10-2024 Influenza vaccination Influenza Vaccine (#1) [facility] Start: 04-09-2023 Influenza vaccination Influenza Vaccine (#1) [facility] Start: 03-29-2023 End: 03-29-2023 Telemedicine consultation with patient 03/29/2023 4:20 PM EDT Telemedicine [facility] [address] [place] [address] Emperatriz Carnes DO [address] [facility] [address] [facility] Start: 03-10-2023 COVID-19 Vaccine ( season) [...] Screening for malignant neoplasm of colon Colonoscopy [facility] Patient Education Low back pain in adults [facility] Work Phone: Patient referral [facility] Work Phone: Immunizations Immunization Date Immunization Notes Care Provider [facility] 05-24-2023 Pneumococcal conjuga te 20 valent (PCV20), polysaccharide [id number] conjugate, adjuvant, PF (SHK=336) [employer] Work Phone: [facility] 05-10-2023 influenza virus vaccine, unspecified formulation CATHIE HERNANDEZ [facility] 05-10-2023 Influenza, seasonal vaccine, quadrivalent, adjuvanted, 0.5mL dose, preservative free (GVE=259) EmperatrizAdim8 DO Work Phone: [facility] 05-24-2022 influenza virus vaccine, unspecified formulation Elicia Mcmillan [facility] 05-24-2022 Influenza, seasonal vaccine, quadrivalent, adjuvanted, 0.5mL dose, preservative free (ZSP=837) EmperatrizAdim8 DO Work Phone: [facility] 12-16-2021 Pfizer Monovalent (1 2+ yrs) SARS-COV-2 (COVID-19) vaccine, mRNA, spike protein, LNP, pres. free, 30 mcg/0.3mL dose, art-sucrose (DTO=018) Emperatriz Carnes DO Work Phone: [facility] 12-16-2021 SARS-CoV-2 mRNA (kzpssqoddqz-spsv-bxkeg se) vaccine Elicia Mcmillan [facility] 08-18-2021 pneumococcal conjuga te vaccine, 13 valent Emperatriz Carnes DO Work Phone: [facility] 06-09-2021 SARS-CoV-2 (COVID-19 ) mRNA BNT-162b2 vax Eliciagurwinder Mcmillan [facility] 05-26-2021 SARS-CoV-2 (COVID-19 ) Ad26 vaccine, recombinant CATHIE TIANA [facility] 05-21-2021 Influenza, seasonal vaccine, quadrivalent, adjuvanted, 0.5mL dose, preservative free (TIY=576) Emperatriz Carnes [employer] Work Phone: [facility] 05-21-2021 influenza virus vaccine, unspecified formulation Emperatriz Carnes DO Work Phone: [facility] 04-28-2021 influenza virus vaccine, unspecified formulation CATHIE TIANA [facility] 04-28-2021 SARS-CoV-2 (COVID-19 ) Ad26 vaccine, recombinant CATHIE TIANA [facility] 09-26-2020 Pfizer SARS-COV-2 (COVID-19) vaccine, age 12+ yrs, mRNA, spike protein, LNP, preservative free, 30 mcg/0.3mL dose (YMX=435) Emperatriz Karim DO Work Phone: [employer] Comment on above: Result Comment: 2022: [id number] 09-05-2020 [facility] SARS-COV-2 (COVID-19) vaccine, age 12+ yrs, mRNA, spike protein, LNP, preservative free, 30 mcg/0.3mL dose (PQP=242) Emperatriz Karim DO Work Phone: [facility] Comment on above: Result Comment: 2022: [id number] 05-10-2020 influenza virus vaccine, unspecified formulation CATHIE TIANA [facility] 05-05-2020 influenza virus vaccine, unspecified formulation Eliciagurwinder Zamarripaz [facility] 05-05-2020 Influenza, seasonal vaccine, quadrivalent, adjuvanted, 0.5mL dose, preservative free (EQY=548) Emperatriz Karim DO Work Phone: [facility] 04-29-2019 influenza virus vaccine, unspecified formulation Elicia Mcmillan [facility] 04-29-2019 influenza, high dose seasonal, preservative-free Emperatriz Karim DO Work Phone: [facility] 04-26-2018 influenza virus vaccine, unspecified formulation Elicia Mcmillan [facility] 04-26-2018 Influenza, injectabl e, Madin Woodlyn Canine Kidney, preservative free, quadrivalent Emperatriz Karim DO Work Phone: [facility] 04-19-2016 influenza virus vaccine, split virus (incl. purified surface antigen) Donald Lizarraga Other [employer] Other 04-19-2016 influenza virus vaccine, unspecified formulation [facility] 04-19-2016 pneumococcal polysaccharide vaccine, 23 valent Donald Lizarraga Other [facility] 06-23-2014 influenza virus vaccine, split virus (incl. purified surface antigen) Donald Lizarraga Other [employer] Other 06-23-2014 influenza virus vaccine, unspecified formulation [facility] 02-13-2014 diphtheria, tetanus toxoids and acellular pertussis vaccine, unspecified formulation Donald Lizarraga Other [facility] Payers Date Payer Category Payer Commercial Indemnity [facility] [id number] 2022 Unknown 2018 Medicare [id number]. [id number] 2018 Medicare FFS MEDICARE [id number]. [id number] 1959 Medicare [id number] 2.16.840.1.738595.19 1959 Unknown [id number] 2.16.840.1.587053.19 1953 Unknown [id number] 2.16.840.1.457479.3.579.2.5 93 1953 Unknown [id number] 2.16.840.1.906076.3.579.2.5 93 1953 Unknown [id number] 2.16.840.1.287033.3.579.2.5 93 1953 Unknown [id number] 2.16.840.1.124780.3.579.2.5 93 1953 Unknown [id number] 2.16.840.1.323316.3.579.2.5 93 1953 Unknown [id number] 2.16.840.1.120863.3.579.2.5 93 1953 Unknown [id number] 2.16.840.1.314142.3.579.2.5 93 1953 Unknown [id number] 2.16.840.1.325684.3.579.2.5 93 1953 Unknown [id number] 2.16.840.1.672665.3.579.2.5 93 1953 Unknown [id number] 2.16.840.1.911392.3.579.2.5 93 1953 Unknown [id number] 2.16.840.1.908435.3.579.2.5 93 1953 Unknown [id number] 2.16.840.1.085831.3.579.2.5 93 1953 Unknown [id number] 2.16.840.1.648425.3.579.2.5 93 1953 Unknown [id number] 2.16.840.1.863126.3.579.2.5 1953 Unknown [id number] 2.16.840.1.520919.3.579.2.5 93 1953 Unknown [id number] 2.16.840.1.458244.3.579.2.5 93 1953 Unknown [id number] 2.16.840.1.101120.3.579.2.5 93 1953 Unknown [id number] 2.16.840.1.620911.3.579.2.5 93 1953 Unknown [id number] 2.16.840.1.649278.3.579.2.5 93 1953 Unknown [id number] 2.16.840.1.475917.3.579.2.5 93 1953 Unknown [id number] 2.16.840.1.214106.3.579.2.5 93 1953 Unknown [id number] 2.16.840.1.176364.3.579.2.5 93 1953 Unknown [id number] 2.16.840.1.683047.3.579.2.5 93 1953 Unknown [id number] 2.16.840.1.997153.3.579.2.7 27 1953 Unknown [id number] 2.16.840.1.119220.3.579.2.7 32 1953 Unknown [id number] 2.16.840.1.722842.3.579.2.1 96 1953 Unknown [id number] 2.16.840.1.099030.3.579.2.1 96 1953 Unknown [id number] 2.16.840.1.979838.3.579.2.1 96 1953 Unknown [id number] 2.16.840.1.336618.3.579.2.1 96 1953 Unknown [id number] 2.16.840.1.750620.3.579.2.1 96 Unknown [id number] Unknown Romel BC/BS [id number] Social History Date Type Detail Facility Start: 12-28-2018 End: 09-03-2020 Tobacco smoking status Never smoked tobacco (finding) [facility] Tobacco smoking status Never [facility] Start: 03-27-2023 Sex Assigned At Male [facility] Start: 12-28-2018 Tobacco use and exposure Smokeless tobacco non-user [facility] Start: 12-28-2018 End: 03-27-2023 Alcohol intake Ex-drinker (finding) [facility] Start: 1955 Sex Assigned At Not on file [facility] Start: 1955 Sex Assigned At Male [facility] Start: 03-27-2023 History of Social function [facility] Within the last year , have you been afraid of your partner or ex-partner? No [facility] Do you belong to any clubs or organizations such as anglican groups, unions, fraternal or athletic groups, or [...] Start: 08-09-2018 End: 05-26-2024 Sex Male (finding) [facility] Start: 03-27-2023 Details of drug misuse behavior Has never misused drugs (situation) [facility] Functional Status Date Assessment Result Facility 01-23-2024 Functional Status N/A [facility] 01-24-2023 Functional Status N/A [facility] 10-06-2022 Functional Status N/A [facility] 07-29-2022 Functional Status N/A [facility] Clinical Notes 11-24-2021 to 02-12-2025 [...] 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 10: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 [facility] Work Phone: 1(529) 491-655310-30-2024 Evaluation note* Diagnosis Onset Date Resolution Status Admit Date Bronchitis acute May 08, 2024 9:18am Cough noneactive May 26, 2024 9:07am [facility] Work Phone: 1(792) 827-225710-07-2024 History of Present illness Narrative* Prasanth Perez [...] his last visit, he had lexiscan at [facility] on 09/2016 that showe no [...] in 1 year Prior to your visit, [facility] shared information with you about the risks [...] 180 Tablet 3 Sodium Sulfate-Mag Sulfate-KCl (Sutab) 5179-892-704 MG TABS Take by mouth. AMLODIPINE BESYLATE [...] declined Stress: No Stress Concern Present (03/27/2023) [place] [employer] - Occupational Stress Questionnaire Feeling of Stress : Not at all Social Connections: Moderately Integrated (03/27/2023) Social Connection and Isolation Panel [NHANES] Frequency of Communication with Friends and Family: More than three times a week Frequency of Social Gatherings with Friends and Family: Twice a week Attends Restorationism Services: Never Active Member of Clubs or Organizations: Yes Attends Club or Organization Meetings: More than 4 times per year Marital Status: Intimate Partner Violence: Not At Risk (03/27/2023) Humiliation, Afraid, Rape, and Kick questionnaire Fear of Current or Ex-Partner: No Emotionally Abused: No Physically Abused: No Sexually Abused: No No family history on file. documented in this [id number] Hospital Discharge instructions Patient Education 01/23/2024 14:28:31 [...] Follow these instructions at home: Medicines Take llrk-aks-bgetbvl and prescription medicines only as told by [...] provider. Document Revised: 09/22/2021 Document Reviewed: 09/22/2021 [employer] Patient Education 2022 [employer] Follow Up Care 01/24/2023 10:37:20 With:TIANA GARCIA, CATHIE Ruano, URL Address: [address] [place] [address] [phone] When: only if needed [facility] 07-16-2024 NotePatient Education Urology Erectile Dysfunction Erectile [...] these instructions at home: Medicines ? Take axau-qox-vrqexxa and prescription medicines only as told by [...] nicotine or tobacco. 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 Last televisit- 08/2020- He had to ER on 05/22/20 when he had pain with a blood clot- needing to stop his coumadin for a short period of time. He felt like he has been in sinus rhythm on his self checks. He was on Qbxhtuyfft105 mg BID and Lopressor 100 mg BID. Since patient last saw me, he had TURP done- no further hematuria or urgency. PSA has been stable. Colonoscopy was normal per patient. No melena etc. ALLERGIES: Allergies Allergen Reactions Other (Review Comments!) MEDICATIONS: Current Outpatient Medications Medication Sig Dispense Refill Sodium Sulfate-Mag Sulfate-KCl (Sutab) [id number] MG TABS Take by mouth. AMLODIPINE BESYLATE [...] refused Stress: No Stress Concern Present (03/27/2023) [employer] [place] [employer] - Occupational Stress Questionnaire Feeling of Stress : Not at all Social Connections: Moderately Integrated (03/27/2023) Social Connection and Isolation Panel [NHANES] Frequency of Communication with Friends and Family: More than three times a week Frequency of Social Gatherings with Friends and Family: Twice a week Attends Restorationism Services: Never Active Member of Clubs or [...] Assessment/Plan: Persistent atrial fibrillation (HCC) (Primary Diagnosis) [007965] Anticoagulated [779213] JAVED on CPAP [043405] Patient doing well overall as far as [...] Electrophysiology 03/29/23 4:52 PM documented in this [id number] Telephone encounter Note* Telephone Encounter - Crystal Putnam RN - 02/17/2023 9:17 AM EDT LVM for pt that new generic Rx (Toprol XL) was sent over to [facility]. [id number] Miscellaneous Notes* Telephone Encounter - Crystal Putnam RN - 02/17/2023 9:17 AM EDT LVM for pt that new generic Rx (Toprol XL) was sent over to [facility]. * Telephone Encounter - Heather Renteria - 02/16/2023 9:38 AM EDT [facility] script is calling wanting to know if they can dispense Metoprolol SUCC- ER 100 mg instead ofthe Toprol XL 100 mg, pt's insurance will only cover the generic brand. Please contact [phone] use Re:[phone]. Thank you documented in this [id number] Telephone encounter Note* Telephone Encounter - Aundrea Davis PharmD - 02/16/2023 3:00 PM EDT Patient called stating the original prescription that was sent had a KP for Toprol XL 100mg which is not covered. Please send over generic Metoprolol ER Succinate 100mg. Thank you! [id number] Miscellaneous Notes* Telephone Encounter - Aundrea Davis PharmD - 02/16/2023 3:00 PM EDT Patient called stating the original prescription that was sent had a KP for Toprol XL 100mg which is not covered. Please send over generic Metoprolol ER Succinate 100mg. Thank you! documented in this [id number] Telephone encounter Note* Telephone Encounter - Heather Renteria - 02/16/2023 9:38 AM EDT [facility] is calling wanting to know if they can dispense Metoprolol SUCC- ER 100 mg instead ofthe Toprol XL 100 mg, pt's insurance will only cover the generic brand. Please contact [phone] use Re:[phone]. Thank you [employer] Work Phone: 1(867) 152-812607-18-2023 Hospital Discharge instructions Patient Education 01/24/2023 10:34:12 [...] Follow these instructions at home: Medicines Take bkii-jat-hpjofie and prescription medicines only as told by [...] provider. Document Revised: 09/22/2021 Document Reviewed: 09/22/2021 [employer] Patient Education 2022 [employer]. Follow Up Care 10/27/2021 12:15:55 With:TIANA GARCIA, CATHIE Ruano, URL Address: [address] [place] [id number] When:Within 1 Year(s) [facility] 04-04-2023 Evaluation note* Encounter Date Diagnosis Assessment [...] I48.91) stable. 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 [employer] Other 03-30-2023 Evaluation + Plan noteExtracted from: Title:KRISSY post op Author:Daljit Gooden MD Date:10/06/22 Plan Transfer/Discharge: Transfer/Discharge Discharge when meets criteria ( To home ). Extracted from: Title:KRISSY GA Author:Daljit Gooden MD Date:10/06/22 Plan [place] [employer] Anesthesiologists (ASA) physical status classification: Class III. Anesthetic Preoperative Plan: Anesthesia General. Future Appointments Appointment Date:01/25/2023 10:00:00 AM Scheduled Provider:Erica Chua MD Location:[facility] Appointment Type:URO Office Visit [facility]03-30-2023 Hospital Discharge instructions Patient Education [...] 03/22/2005 Document Revised: 10/11/2018 Document Reviewed: 10/11/2018 [employer] Patient Education 2020 [employer]. 10/06/2022 10:00:07 Hemorrhoids, Yljf-ju-Uuzb Hemorrhoids Hemorrhoids are swollen veins that may [...] 3 times a day. General instructions Take ptjo-kwx-euidsbk and prescription medicines only as told by [...] 04/04/2009 Document Revised: 07/04/2019 Document Reviewed: 11/15/2018 [employer] Patient Education 2020 [employer]. Follow Up Care 07/29/2022 15:02:48 With:Oxana IBARRA Address: [address] [place] [address] Business (1) When: Unknown Comments:Call for any problems. [facility]01-20-2023 Hospital Discharge instructions Patient Education [...] including vitamins, herbs, eye drops, creams, and vosq-xpk-upfsmtb medicines. Any problems you or family members [...] 06/23/2001 Document Revised: 04/18/2018 Document Reviewed: 09/06/2016 [employer] Patient Education [employer]. Follow Up Care 07/05/2022 09:47:30 With:Elicia Mcmillan CNP Address: When:1 to 2 weeks Comments:Following colonoscopy. [facility] 01-17-2023 Evaluation note* [...] way. Continue follow-up with cardiology as scheduled. [employer] Other 01-11-2023 NoteCONSULTATION CONSULTATION DATE: 07/20/2022 HISTORY [...] in three months' time unless otherwise indicated.[facility] 07-20-2022 NoteCONSULTATION PROCEDURE DATE: 07/20/2022 PREOPERATIVE [...] fan-like pattern. Patient tolerated the procedure well.[facility] [id number] NotePAIN MANAGEMENT CONSULTATION CONSULTATION DATE: 05/26/2022 HISTORY [...] post procedure, and he wishes to proceed.[facility] [id number] NoteCONSULTATION CONSULTATION DATE: 04/07/2022 HISTORY OF PRESENT [...] which is aggravated by prolonged standing and nursing care partner hours. He states that such activity has [...] for re-evaluation. Patient agrees to this plan.[facility] CenterJgluycrz17-40-1452 NoteCONSULTATION CONSULTATION DATE: 03/03/2022 This is a 02-cqen-dfmiivxud returning to clinic for a 3-month follow-up. [...] be followed up in the office following.[facility] CenterSnotejol61-95-1707 Telephone encounter Note* Telephone Encounter - Erica Beckett - 03/01/2022 11:40 AM EDT Patient has not been seen by this specialist in more than 1 year. Please contact patient to schedule office visit. Thank you [id number] Miscellaneous Notes* Telephone Encounter - Erica Beckett - 03/01/2022 11:40 AM EDT Patient has not been seen by this specialist in more than 1 year. Please contact patient to schedule office visit. Thank you documented in this [id number] Telephone encounter Note* Telephone Encounter - Irina Nguyen - 01/18/2022 7:23 AM EDT Last visit with Cardiology (Emperatriz Carnes) on 09/03/2020 Requested Prescriptions Pending Prescriptions Disp Refills metoprolol (TOPROL-XL) 100 mg XL tablet [Pharmacy Med Name: METOPROLOL SUCCINATE ER TABS 100MG] 90 Tablet 3 Sig: TAKE 1 TABLET DAILY No PCP on file No PCP on file [id number] Miscellaneous Notes* Telephone Encounter - Irina Nguyen - 01/18/2022 7:23 AM EDT Last visit with Cardiology (Rodolfobetsy Emperatriz) on 09/03/2020 Requested Prescriptions Pending Prescriptions Disp Refills metoprolol (TOPROL-XL) 100 mg XL tablet [Pharmacy Med Name: METOPROLOL SUCCINATE ER TABS 100MG] 90 Tablet 3 Sig: TAKE 1 TABLET DAILY No PCP on file No PCP on file documented in this [id number] Telephone encounter Note* Telephone Encounter - Anirudh Gonzalez RPh - 11/29/2021 3:11 PM EDT Pt called back, will talk to his [facility] to get refill [facility] Work Phone: [phone]) [phone] Miscellaneous Notes* Telephone Encounter - Anirudh Gonzalez RPh - 11/29/2021 3:11 PM EDT Pt called back, will talk to his [facility] to get refill * Telephone Encounter - Asia Laguna RN - 11/29/2021 2:52 PM EDT Left message for pt to return call to [facility] at [phone] 2nd attempt * Telephone Encounter - Cathie Whitley RN - 11/26/2021 2:46 PM EDT Left message for patient to please call back. 1st attempt * Telephone Encounter - Anirudh Gonzalez RPh - 11/25/2021 9:37 AM EDT [facility] Staff, Please contact pt re the following issue. Per 09/03/21 note pt goes to [facility] , they should refill, will deny Thanks! * Telephone Encounter - Tamiko Rodriguez PharmD - 11/24/2021 4:09 PM EDT Requested Prescriptions Pending Prescriptions Disp Refills warfarin (COUMADIN) 5 MG tablet 90 Tablet 0 Sig: Take 1 Tablet by mouth daily. No PCP on file No PCP on file documented in this [id number] Telephone encounter Note* Telephone Encounter - Asia Laguna RN - 11/29/2021 2:52 PM EDT Left message for pt to return call to [facility] at [phone] 2nd attempt [employer] Work Phone: [phone]) 207-995205-20-2022 Telephone encounter Note* Telephone Encounter - Cathie Whitley RN - 11/26/2021 2:46 PM EDT Left message for patient to please call back. 1st attempt [id number] Telephone encounter Note* Telephone Encounter - Anirudh Gonzalez RPh - 11/25/2021 9:37 AM EDT [facility] Staff, Please contact pt re the following issue. Per 09/03/21 [facility] , they should refill, will deny Thanks! [id number] Telephone encounter Note* Telephone Encounter - Tamiko Rodriguez PharmD - 11/24/2021 4:09 PM EDT Requested Prescriptions Pending Prescriptions Disp Refills warfarin (COUMADIN) 5 MG tablet 90 Tablet 0 Sig: Take 1 Tablet by mouth daily. No PCP on file No PCP on file [facility] Work Phone: 1(520) 239-106605-18-2022 Miscellaneous Notes* Telephone Encounter - Tamiko Rodriguez [...] [Pharmacy Med Name: POTASSIUM CHLORIDE ER (DISP) [id number]] 180 Tablet 3 Sig: TAKE 1 TABLET TWICE A DAY Refused Prescriptions Disp Refills warfarin (COUMADIN) 5 MG tablet [Pharmacy Med Name: WARFARIN TABS 5MG] 90 Tablet 3 Sig: TAKE 1 TABLET DAILY (INR: 2.33) No PCP on file No PCP on file documented in this encounterMetroHealthEvaluation + Plan note Future Appointments Appointment Date:11/01/2022 09:45:00 AM Scheduled Provider:Min Tristan Jr., MD Location:[facility] Appointment Type:URO Office Visit Diagnostic Tests Pending * PSA Total 10/27/21 [facility] evaluation + Plan note Future Appointments Appointment Date:10/06/2022 09:00:00 AM Scheduled Provider: Location:[facility] Appointment Type:Surgery FT Appointment Date:11/01/2022 09:45:00 AM Scheduled Provider:Min Tristan Jr., MD Location:[facility] Appointment Type:URO Office Visit [facility] Evaluation + Plan note Future Appointments Appointment Date:01/30/2024 10:00:00 AM Scheduled Provider:CATHIE HENRANDEZ PA-C Location:[facility] Appointment Type:URO Office Visit [facility] evaluation + Plan note Future Appointments Appointment Date:01/30/2024 10:00:00 AM Scheduled Provider:CATHIE HERNANDEZ PA-C Location:[facility] Appointment Type:URO Office Visit Diagnostic Tests Pending * [facility] (paroxysmal atrial [...] present documented in this encounter [facility]No [employer] Other Evaluation note* Diagnosis Persistent atrial fibrillation [...] in this encounter [facility] noteNo [facility] Work Phone: evaluation note* Diagnosis PAF (paroxysmal [...] Diagnosis Onset Date Resolution Status Bronchitis acute [facility] Work Phone: evaluation note* Diagnosis Onset Date [...] on CPAP acute February 12 025 9:16am [facility] Work Phone: Evaluation note* Diagnosis PAF [...] Hospitalization History No Hospitalization histo ry information [facility] Other Hospital course Narrative No data available for this section [facility] Discharge instructions No data available for this section [facility] Discharge instructionsAmbulatory Orders* Referral to Orthopedic [facility] Work Phone: Progress note No data available for this section [facility] Digestive Health Summary Purpose Family [...] section and content) DATE CREATED AUTHOR 01/02/2018 [facility] DATE CREATED AUTHOR AUTHOR'S ORGANIZ ATION 04/24/2018 [employer] DATE CREATED AUTHOR AUTHOR'S ORGANIZ ATION 05/06/2018 [facility] DATE CREATED AUTHOR AUTHOR'S ORGANIZ ATION 12/16/2022 [facility] DATE CREATED AUTHOR AUTHOR'S ORGANIZ ATION 01/25/2024 [facility] DATE CREATED AUTHOR AUTHOR'S ORGANIZ ATION 04/15/2024 [facility] DATE CREATED AUTHOR AUTHOR'S ORGANIZ ATION 05/28/2024 [facility] DATE CREATED AUTHOR AUTHOR'S ORGANIZ ATION 03/29/2025 [facility] Reason for Visit (unrecogniz ed [...] Care Teams (unrecognized sec tion and content) Exchange Consultant Relationship Specialty Start Date End Date Emperatriz Carnes DO [address] [place] [address] Physician Electrophysiology 04/14/20 Exchange Consultant Relationship Specialty Start Date End Date Emperatriz Carnes DO [address] [place] [address] Physician Electrophysiology 04/14/20 Exchange Consultant Relationship Specialty Start Date End Date Emperatriz Carnes DO [address] [place] [address] Physician Electrophysiology 04/14/20 Exchange Consultant Relationship Specialty Start Date End Date Emperatriz Carnes DO [address] [place] [address] [place] [address] Physician Electrophysiology 04/14/20 Exchange Consultant Relationship Specialty Start Date End Date Emperatriz Carnes DO [address] [place] [address] [place] [address] Physician Electrophysiology 04/14/20 Exchange Consultant Relationship Specialty Start Date End Date Emperatriz Carnes DO [address] [place] [address] [place] [address] Physician Electrophysiology 04/14/20 Exchange Consultant Relationship Specialty Start Date End Date Emperatriz Carnes DO [address] [place] [address] [place] [address] Physician Electrophysiology 04/14/20 Exchange Consultant Relationship Specialty Start Date End Date Emperatriz Carnes DO [address] [place] [address] Physician Electrophysiology 04/14/20 Exchange Consultant Relationship Specialty Start Date End Date Emperatriz Carnes DO [address] [place] [address] Physician Electrophysiology 04/14/20 Team Status: Active Member [...] October 19, 2023 End: October 19, 2023 Exchange Consultant Relationship Specialty Start Date End Date Emperatriz Carnes DO [address] [place] [address] Physician Electrophysiology 04/14/20 Exchange Consultant Relationship Specialty Start Date End Date Emperatriz Carnes DO [address] [place] [address] Physician Electrophysiology 04/14/20 Team Status: Active Member [...] May 29, 2024 End: May 29, 2024 Exchange Consultant Relationship Specialty Start Date End Date Emperatriz Carnes DO [address] [place] [address] Physician Electrophysiology 04/14/20 Prasanth Perez MD [address] [place] [address] Physician Cardiac Electrophysiology 05/11/24 Exchange Consultant Relationship Specialty Start Date End Date Emperatriz Carnes DO [address] [place] [address] Physician Electrophysiology 04/14/20 Prasanth Perez MD [address] [place] [address] Physician Cardiac Electrophysiology 05/11/24 Team Status: Active [...] March 03, 2025 End: March 03, 2025 Exchange Consultant Relationship Specialty Start Date End Date Emperatriz Carnes DO [address] [place] [address] Physician Electrophysiology 04/14/20 Prasanth Perez MD [address] [place] [address] Physician Cardiac Electrophysiology 05/11/24 Goals (unrecognized section [...] THE PRIMARY CLINICAL RECORDS. [facility] [employer] provides no warranty or guarantee of the accuracy or completeness of information in this document.
--- NOTE | 2025-04-17 10:40 | PM.CN ---
Consult Note: HPI Data of Consult Patient: known to practice within the last 3 years Requesting Physician: Trista Lyman NP Primary Care Provider: Rocio Bagley MD Consult Narrative Reason for consult: pain Narrative: Evangelist Ybarra a pleasant 69 year old male with chronic low back, right hip, and right knee pain >1 year unresponsive to > 6 weeks of PT/Aquatherapy, provider guided HEP, heat, ice, tylenol, NSAIDs presents for evaluation. pt previously evaluated by Dr Auguste for right hip pain, was deemed non surgical at that time per pt but not available note. Pain today 9/10 stabbing intense pain in right hip and 4/10 throbbing pain in right knee increasing to 10/10 with standing, walking, lifting, housework, activity, ADLs. denies falls/injury, does utilize cane. Patient noting worsening stabbing pain to groin and RUE. pt recently underwent right GTB injection with 30% improvement for 1 week. on 04/14/25 underwent right genicular nerve block for right knee pain unresponsive to PT, heat, ice, tylenol, NSAIDs, and steroidal injections. Pt noted >80% improvement in pain while anesthetized, preop pain up to 10/10 post op pain 1-2/10 in right knee. cc:: CC: Trista Lyman NP Review of Systems ROS Musculoskeletal Reports: back pain, extremity pain and joint pain PFSH [facility] Medical History Atrial fibrillation ?I48.91 - Unspecified atrial fibrillation (ICD-10) Low back pain ?M54.50 - Low back pain, unspecified (ICD-10) Osteoarthritis ?M19.90 - Unspecified osteoarthritis, unspecified site (ICD-10) Colon cancer ?C18.9 - Malignant neoplasm of colon, unspecified (ICD-10) Obesity ?E66.9 - Obesity, unspecified (ICD-10) Kidney stone ?N20.0 - Calculus of kidney (ICD-10) Enlarged prostate ?N40.0 - Benign prostatic hyperplasia without lower urinary tract symptoms (ICD-10) Pulmonary embolism ?I26.99 - Other pulmonary embolism without acute cor pulmonale (ICD-10) Sleep apnea ?G47.30 - Sleep apnea, unspecified (ICD-10) High cholesterol ?E78.00 - Pure hypercholesterolemia, unspecified (ICD-10) Hypertension ?I10 - Essential (primary) hypertension (ICD-10) Surgical History S/P TURP ?Z90.79 - Acquired absence of other genital organ(s) (ICD-10) History of colon resection ?Z90.49 - Acquired absence of other specified parts of digestive tract (ICD-10) Social History Little interest or pleasure in doing things: not at all Feeling down, depressed, or hopeless: not at all Meds Home Medications and Allergies Home Medications ?Medication ?Instructions ?Recorded ?Confirmed ?Type atorvastatin 20 mg tablet 20 mg PO QDAY 12/22/22 12/16/24 History calcium carbonate 300 mg PO DAILY 12/22/22 12/16/24 History flecainide 100 mg tablet 100 mg PO Q12H 12/22/22 04/14/25 History hydrochlorothiazide 25 mg tablet 25 mg PO QDAY 12/22/22 12/16/24 History lisinopril 40 mg tablet 40 mg PO QDAY 12/22/22 04/14/25 History loratadine 10 mg tablet 10 mg PO DAILY 12/22/22 04/14/25 History metoprolol succinate 100 mg 100 mg PO QDAY 12/22/22 04/14/25 History tablet,extended release 24 hr multivitamin 1 tab PO DAILY 12/22/22 04/14/25 History olopatadine 0.1 % eye drops drp ophthalmic (eye) BID 12/22/22 History potassium chloride 20 mEq 20 meq PO BID 12/22/22 04/14/25 History tablet,extended release(part/cryst) (Klor-Con M) warfarin 5 mg tablet 5 mg PO QDAY 12/22/22 04/14/25 History gabapentin 300 mg capsule 900 mg PO BID 01/17/24 12/16/24 History baclofen 10 mg tablet 10 mg PO TID PRN pain 06/25/24 12/16/24 History hydrocodone 5 mg-acetaminophen 325 1 tab PO BID PRN pain #14 tabs 12/04/24 12/16/24 Rx mg tablet gabapentin 300 mg capsule 900 mg (3 x 300 mg) PO BID #540 04/08/25 Rx caps hydrocodone 5 mg-acetaminophen 325 1 tab PO BID PRN pain #14 tabs 04/10/25 04/14/25 Rx mg tablet Allergies Allergy/AdvReac Type Severity Reaction Status Date / Time No Known Drug Allergies Allergy Verified 12/16/24 08:04 Exam Constitutional Documenting provider has reviewed patient's vital signs: yes Common normals: no apparent distress, oriented x3, healthy appearing, alert and well nourished General appearance: cooperative HENMT Common normals: normocephalic, hearing grossly normal bilaterally and moist oral mucous membranes Head and scalp: normocephalic Eye Common normals: PERRL Pupil: PERRL Neck & C-Spine Common normals: full ROM General: normal visual inspection Chest Common normals: inspection of chest normal Respiratory Common normals: normal respiratory effort, no retractions and no use of accessory muscles Back & Pelvis Lumbar spine/lower back: ROM limited, pain with ROM, lumbar spinal tenderness and straight leg raise positive right Sacroiliac joints: SI joint(s) abnormal Other: intermittent radiculopathy to right L1,2,3 with standing and walking, minimal pain with sitting and forward flexion strength 4/5 in RLE 5/5 in LLE Extremity Right lower extremity: knee joint Other: no instability noted, moderate edema. increased pain with medial/lateral stress testing. moderate crepitus noted. Neuro Common normals: oriented x3 Sensorium/orientation: alert Psych Common normals: mental status grossly normal, thought process normal, cooperative, affect normal, speech normal and activity/motor behavior normal Speech: normal speech Thought process: normal thought process Results Additional Findings Additional findings: If on a controlled substance or opioids, I have checked an OAR[place] report on this patient and there are no aberrancies noted in the prescribing history.??If on a controlled substance or opioid a drug screen was completed and reviewed within the last year, and if there has not been a drug screen completed we ordered one today to monitor higher risk, state monitored pain medication use. As part of providing excellent, safe, comprehensive care, the following was completed at our patient's visit: 1. A medication reconciliation and review to ensure accurate knowledge of current/active medications, including asking our patients to inform us about any [id number] medications or herbal remedies/nutritional supplements/alternative remedies. 2. A review to specifically ensure our patients have had annual screening for screening for depression, screening for tobacco use, and screening for unhealthy alcohol use. For concerning screenings had a discussion with the patient, provided patient education, and recommended follow-up with primary care provider when appropriate. If patient noted with a risk of falling, they received education on strength, gait, and balance training to prevent future risk of falling. Portions of this note may have been carried over from the previous visit and updated as appropriate. Please note this office utilizes paper charting in addition to the electronic medical record. A list of current medications, vitals, and PMH is available there as the clinical staff outside of myself do not have access to [employer] charting during the clinic day operations. As part of providing quality comprehensive care the current medications, vitals, and PMH were reviewed in the paper chart. Assessment and Plan Assessment and Plan (1) Right knee pain: Qualifiers: Chronicity: chronic Qualified Code(s): M25.561 - Pain in right knee; G89.29 - Other chronic pain (2) Osteoarthritis of right hip: Qualifiers: Osteoarthritis type: primary Qualified Code(s): M16.11 - Unilateral primary osteoarthritis, right hip (3) Lumbar stenosis with neurogenic claudication: (4) Lumbar spondylosis: (5) Chronic use of opiate drug for therapeutic purpose: Assessment and Plan: notes moderate pain relief >6 hours without side effects. cannot take NSAIDs, on coumadin I feel these medications are improving the patient's quality of life and allow them to tolerate activities of daily living as well as participate in recreational activity.? The patient does not report intolerable side effects. The patient is NOT opioid naive and non-pharmacologic and non-opioid treatment has failed to significantly relieve the patient's pain and improve functionality. The patient has a diagnosis that is related to a somatic or visceral pain etiology. ? ?? I reviewed with the patient the potential risks and side effects with the use of? opioid medications including but not limited to respiratory depression,? sedation, and even . Within the last 12 months I have verified the patient has access to naloxone should? these effects occur. The patient was advised to let? their family know they had Naloxone in case they would need to administer? the medication. I advised the patient to avoid the use of any other? sedation substances including alcohol, THC, and benzodiazepines while? taking opioid medications due to the risk of compounding side effects and? detrimental outcomes. within the last 12 months I have reviewed the ENGLISH COMPOSITION INSTRUCTOR, pain treatment agreement and urine drug screen.? ?? A drug screen was completed within the last year, and no aberrancies were noted regarding their use of controlled substances. The patient understands they are subject to the terms and conditions of the pain contract that they have signed. ? ?? I have checked an OARRS report on this patient today and there are no aberrancies noted in the prescribing history.? Plan The patient has had over 3 months of moderate to severe low back, right hip, right knee pain with functional impairment and inadequate response to conservative care including NSAIDS (unless there are contraindication such as concurrent blood thinners), multiple oral or topical pain medications, and home exercise program/physical therapy.? Patient has completed >6 weeks of guided home exercise program and/or formal physical therapy program without relief of their symptoms.? proceed with right genicular RFA under fluoroscopy update lumbar MRI without contrast to assess lumbar stenosis with NC refill/continue hydrocodone-acetaminophen 5-325mg BID PRN moderate to severe pain, 60 tabs to last 30 days update UDS today for medication monitoring request orthopedic note from Dr Auguste regarding right hip pain/oa continue HEP and aquatherapy as tolerated narcan discussed and prescribed f/u 1 month after right genicular RFA, f/u to review lumbar MRI once completed
== END 2025-04-17 09:58 | disposition home or self-care (01) ==
LOC: PM 09:59
PROVIDERS: PCP Family Medicine; Visit Provider Nurse Practitioner
DX: M25.561 Pain in right knee (principal); G89.29 Other chronic pain; M16.11 Unilateral primary osteoarthritis, right hip; M48.062 Spinal stenosis, lumbar region with neurogenic claudication; M47.816 Spondylosis without myelopathy or radiculopathy, lumbar region; Z79.891 Long term (current) use of opiate analgesic
CPT/HCPCS: G0463

== ENCOUNTER 2025-04-23 09:01 | Outpatient (OUT) | payer MEDICARE, SELFPAY ==
--- OUTSIDE RECORDS SUMMARY | 2025-04-23 09:03 | XMS_ITS | Encounter Summary ---
Author Organization [facility] Address [address] [facility] [place] [address] Care Team Providers Care Color Checker Roving Or Yarn Name Role Phone Emperatriz Carnes DO Unavailable Carlos Nuñez MD Unavailable [phone] Encounter Details Date Type Department Care Team [...] on filedocumented in this encounter Care Teams Color Checker Roving Or Yarn Relationship Specialty Start Date End Date Emperatriz Carnes DO [address] [place] [address] Physician Electrophysiology 04/14/20 Carlos Nuñez MD [address] [place] [address] Physician Cardiac Electrophysiology 05/11/24 documented as of this encounter
--- OUTSIDE RECORDS SUMMARY | 2025-04-23 09:03 | XMS_ITS | Encounter Summary ---
Author Organization [facility] Address [address] [facility] [address] [place] [address] Care Team Providers Care Carpet Inspector Name Role Phone Emperatriz Carnes DO Unavailable Carlos Nuñez MD Unavailable [phone] Encounter Details Date Type Department Care Team [...] filedocumented in this encounter Care Teams Carpet Inspector Relationship Specialty Start Date End Date Emperatriz Carnes DO [address] [place] [address] Physician Electrophysiology 04/14/20 Carlos Nuñez MD [address] [place] [address] Physician Cardiac Electrophysiology 05/11/24 documented as of this encounter
--- OUTSIDE RECORDS SUMMARY | 2025-04-23 09:03 | XMS_ITS | Encounter Summary ---
Author Organization [facility] Address [address] [facility] [place] [address] Care Team Providers Care Enameler Name Role Phone Emperatriz Carnes DO Unavailable Carlos Nuñez MD Unavailable [phone] Encounter Details Date Type Department Care Team [...] on filedocumented in this encounter Care Teams Enameler Relationship Specialty Start Date End Date Emperatriz Carnes DO [address] [place] [address] Physician Electrophysiology 04/14/20 Carlos Nuñez MD [address] [place] [address] Physician Cardiac Electrophysiology 05/11/24 documented as of this encounter
--- OUTSIDE RECORDS SUMMARY | 2025-04-23 09:03 | XMS_ITS | Clinical Summary ---
Author Organization [facility] Address [address] [place] [address] Care Team Providers Care Football Pad Repairer Name Role Phone Unavailable Primary Care Provider [...]
--- OUTSIDE RECORDS SUMMARY | 2025-04-23 09:03 | XMS_ITS | Clinical Summary ---
Author Organization [facility] Address [address] [place] [address] Phone Care Team Providers Care Gold Blower Name Role Phone Rocio Bagley MD Primary Care Provider [phone] Social History Tobacco Use Types Packs/Day Years Used Date Smoking Tobacco: Never Assessed Sex and Gender Information Value Date Recorded Sex Assigned at Not on file Legal Sex Male 12:38 PM EST Gender Identity Not on file Sexual Orientation Not on file Plan of Treatment Not on file Care Teams Gold Blower Relationship Specialty Start Date End Date Rocio Bagley MD [address] [place] [address] [address] [place] [address] PCP - General 03/28/18
--- OUTSIDE RECORDS SUMMARY | 2025-04-23 09:03 | XMS_ITS | Clinical Summary ---
Author Organization [facility] Address [address] [place] [address] Care Team Providers Care Tonsorial Artist Name Role Phone Rocio Bagley MD Primary Care Provider Allergies No known active allergies Medications amLODIPine (NORVASC) 5 mg tablet Take 5 mg by mouth once daily. Active aspirin, enteric coated (ASPIRIN, ENTERIC COATED) 81 mg EC tablet Take 81 mg by mouth once daily. Active carvedilol (COREG) 25 mg tablet Take 25 mg by mouth twice daily with meals. Active [place]-3 Fatty Acids-Vitamin E (FISH OIL) 1,000 mg [...] of 2) 09/09/2003 Advance Directive Discussion 07/10/2024 Covid-19 Vaccine ( - 2024- season) 2025 Influenza Vaccine (#1) 2025 RSV Vaccine (1 - 1-dose 75+ series) [address] [place] [address] BLUE CARD PPO OOS Member Subscriber Plan / Payer (Ef fective 2014-Present) Name:Evangelist Ybarra Relation to Subscriber:Self Name:Evangelist Ybarra Payer ID:[id number] (NAIC) Group ID:[id number] Type:PPO Address: [facility] [address] [place] [id number] Care Teams Tonsorial Artist Relationship Specialty [place] [address] [place] [id number] PCP - General Family Medicine 10/24/14
--- OUTSIDE RECORDS SUMMARY | 2025-04-23 09:03 | XMS_ITS | Clinical Summary ---
Author Organization [facility] Address [address] [facility] [address] [place] [address] Care Team Providers [place] [employer] Name Role Phone Emperatriz Carnes Unavailable Carlos Nuñez MD Unavailable [phone] Source Comments The following information is NOT included in Care Everywhere downloads:Psychiatric notes, ECG results, Cardiac Rehab notes, Pulmonary Function notes, data from [employer] (includes but not limited toPregnancy data,audiograms, eye exams, pre-surgical evaluation notes, well-child exam data).[facility] Allergies Active Allergy Reactions Criticality Noted Date Comments Other (Review Comments!) 12/28/2018 Medications atorvastatin (LIPITOR) 20 MG tabletIndications: Preop cardiovascular exam,PAF (paroxysmal atrial fibrillation),Anti coagulated,JAVED on CPAP,Obesity, unspecified classification, unspecified obesity type, unspecified whether serious comorbidity present 11/20/19 Active hydrochlorothiazid e (HYDRODIURIL) 25 MG tabletIndications: Preop cardiovascular exam,PAF (paroxysmal atrial fibrillation),Anti coagulated,JAVED on CPAP,Obesity, unspecified classification, unspecified obesity type, unspecified whether serious comorbidity present 11/20/19 Active lisinopril (PRINIVIL, ZESTRIL) 40 MG tabletIndications: Preop cardiovascular exam,PAF (paroxysmal atrial fibrillation),Anti coagulated,JAVED on CPAP,Obesity, unspecified classification, unspecified obesity type, unspecified whether serious comorbidity present 11/20/19 Active loratadine (CLARITIN) 10 MG tabletIndications: Preop cardiovascular exam,PAF (paroxysmal atrial fibrillation),Anti coagulated,JAVED on CPAP,Obesity, unspecified classification, unspecified obesity type, unspecified whether serious comorbidity present Take 10 mg by mouth daily. 3 10/28/19 19 Active olopatadine (PATANOL) 0.1 % ophthalmic solutionIndication s:Preop cardiovascular exam,PAF (paroxysmal atrial fibrillation),Anti coagulated,JAVED on CPAP,Obesity, unspecified classification, unspecified obesity type, unspecified whether serious comorbidity present olopatadine 0.1 % eye drops Active Potassium Chloride 40 MEQ/15ML (20%) SOLNIndications:Pr eop cardiovascular exam,PAF (paroxysmal atrial fibrillation),Anti coagulated,JAVED on CPAP,Obesity, unspecified classification, unspecified obesity type, unspecified whether serious comorbidity present 15 mL. Active AMLODIPINE BESYLATE ORAL amLODIPine Besylate Not-Taking Active sildenafil citrate (VIAGRA) 25 MG tablet Take 25 mg by mouth. 01/25/20 23 Active Sodium Sulfate-Mag Sulfate-KCl (Sutab) 0402-199-574 MG TABS Take by mouth. 07/29/19 23 Active potassium chloride SA (Klor-Con M20) 20 MEQ controlled release tabletIndications: PAF (paroxysmal atrial fibrillation),Anti coagulated,Preop cardiovascular exam,JAVED on CPAP,Obesity, unspecified class, unspecified [...] daily. 180 Tablet 3 09/28/19 25 Active warfarin (COUMADIN) 5 MG tabletIndications: PAF (paroxysmal atrial fibrillation),Anti coagulated,Preop cardiovascular exam,JAVED on CPAP,Obesity, unspecified class, unspecified obesity type, unspecified whether serious comorbidity present TAKE ONE TO ONE AND ONE-HALF TABLETS DAILY OR DIRECTED BY MEDICATION [facility]NAGEMENT CL[facility] 120 Tablet 3 04/02/20 25 Active warfarin (COUMADIN) 5 MG tabletIndications: PAF (paroxysmal atrial fibrillation),Anti coagulated,Preop cardiovascular exam,JAVED on CPAP,Obesity, unspecified classification, unspecified obesity type, unspecified whether serious comorbidity present TAKE ONE TO ONE AND ONE-HALF TABLETS DAILY OR DIRECTED BY MEDICATION MANAGEMENT CLINIC 120 Tablet 3 12/28/19 24 025 Discontin ued(Reord er (*won't e-cancel) ) Active Problems Problem Noted Date Diagnosed Date [...] 03/29/2023 BPH with urinary obstruction 05/27/2020 03/29/2023 Encounters Date Type Department Care Team Description 04/02/2025 Refill [facility] Cardiology [address] [place] [address] Carlos Nuñez MD Refill from Last 3 Months Immunizations Immunization Administration Dates Next Due Influenza, Injectable, MDCK, Quadrivalent, Preservative Free (GPT=630) 04/26/2018 Influenza, injectable, adjuv anted, quadrivalent, preservative free (PGI=966) 05/10/2023,05/24/2022,05/21/2021,05/05 Influenza, injectable, high dose seasonal, trivalent, preservative free (DJA=641) 04/29/2019 Influenza, unspecified formu lation (CVX=88) 04/28/2021 Whatser SARS-COV-2 (COVID-19 ) vaccine, vector non-replicating, recombinant spike protein-Ad26, preservative free, 0.5 mL (SUE=679) 05/26/2021 Pfizer Monovalent (12+ yrs) SARS-COV-2 (COVID-19) vaccine, mRNA, spike protein, LNP, pres. free, 30 mcg/0.3mL dose (QTF=746) 06/09/2021,09/26/2020,09/05/2020 Pfizer Monovalent (12+ yrs) SARS-COV-2 (COVID-19) vaccine, mRNA, spike protein, LNP, pres. free, 30 mcg/0.3mL dose, art-sucrose (HQL=132) 12/16/2021 Pneumococcal conjugate 13 va lent (PCV13) (EUI=059) 08/18/2021 Pneumococcal conjugate 20 va lent (PCV20), polysaccharide [id number] conjugate, adjuvant, PF (HDI=570) 05/24/2023 Social History Tobacco Use Types Packs/Day [...] week 03/27/2023 How often do you attend [facility] or faith services? Never 03/27/2023 Do you belong to [...] and heating? Not hard at all 03/27/2023 [facility] Occupat ional [facility] - Occupational Stress [...] place to sleep or slept in a nursing home (including now)? No 03/27/2023 Education Answer Date [...] - 116 mg/dL 12/28/2018 6:07 PM EDT [facility] Sodium 143 135 - 148 mmol/L 12/28/2018 6:07 PM EDT [facility] Potassium 3.9 3.3 - 5.3 mmol/L 12/28/2018 6:07 PM EDT [facility] Carbon Dioxide 27 21 - 30 mmol/L 12/28/2018 6:07 PM EDT [facility] Chloride 109 97 - 111 mmol/L 12/28/2018 6:07 PM EDT [facility] Blood Urea Nitrogen 13 8 - 22 mg/dL 12/28/2018 6:07 PM EDT [facility] Creatinine 0.72(L) 0.80 - 1.30 mg/dL 12/28/2018 6:07 PM EDT [facility] Calcium 9.6 8.4 - 10.4 mg/dL 12/28/2018 6:07 PM EDT [facility] Anion Gap 11 5 - 13 12/28/2018 6:07 PM EDT [facility] Estimated GFR (CKD-EPI) 98 >=60 mL/min/1.7 3sqm 12/28/2018 6:07 PM EDT [facility] Blood BLOOD SPECIMEN / Unknown 12/28/2018 3:41 PM EDT 12/28/2018 5:14 PM EDT us Emperatriz Carnes DO [facility] Final Result [facility] [address] [place] [phone] from Last 3 Months or Most Recently Relevant to Health Maintenance Insurance MEDICARE DO NOT USE [facility] Care Teams [place] Tax [employer] Relationship Specialty Start Date End Date Emperatriz Carnes DO [address] [place] [address] Physician Electrophysiology 04/14/20 Carlos Nuñez MD [address] [place] [address] Physician Cardiac Electrophysiology 05/11/24
--- NOTE | 2025-04-23 09:05 | MR_ITS ---
[address] [address] Patient Name: ROSEY CHURCH MRN: [facility]:[id number] date: 1955 Sex: M Assigned Patient Location: MRI Current Patient Location: MRI Accession/Order Number: [id number] Exam Date: 04/23/2025 09:10 Report Date: 04/23/2025 12:32 At the request of: DONTE BENITEZ NP Procedure: MR lumbar spine wo con MRI of the lumbar spine performed without contrast COMPARISON: 07/15/2024 INDICATION: Spinal stenosis of lumbar region FINDINGS: Lumbar vertebral heights and alignment maintained. 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 Otherwise minimal multilevel intervertebral space narrowing elsewhere. There is a cleft of T2 signal involving the inferolateral aspect of the L2 vertebral body with corresponding diminished T2 and T1 signal and reactive edema noted suspicious for a late subacute fracture versus hypertrophic syndesmophytosis. An adjacent reactive changes. Otherwise bone marrow signal is grossly unremarkable. Multilevel facet arthropathy. Conus medullaris terminates normally at mid L2 level. Paraspinal soft tissues unremarkable. T12-L1: Anterior marginal endplate osteophytosis. Minimal facet arthropathy. No significant disc disease or canal or neural from narrowing identified. L1-2: Bulky right lateral endplate osteophytosis and far lateral lateral syndesmophytosis and hypertrophic spurring. This appears to displace the exiting right L1 nerve roots. Otherwise no significant disease canal narrowing or left neural from narrowing. There is moderate right foraminal narrowing due to encroaching osteophytosis. L2-3: Minimal broad-based disc bulge with moderate facet arthropathy and ligamentum flavum hypertrophy . There is moderate central canal stenosis. [id number]-[id number] right moderate left neural foraminal narrowing. Bulky right anterolateral osteophytosis and spurring noted. L3-4: Broad-based disc bulge with right foraminal to extra foraminal zone annular fissure. Otherwise mild foraminal narrowing. Canal is patent. Moderate facet arthropathy. There is a left-sided synovial cysts at the dorsal aspect of the L4 facet joint L4-5: Broad-based disc bulge with right foraminal zone to extra foraminal zone T2 hyperintensity intensity suggestive of focal fissuring. Moderate severe facet arthropathy. There is moderate to severe right subarticular recess narrowing, correlate with possible right L5 radiculopathy. Hsja-nx-[id number] left subarticular zone narrowing. Otherwise moderate right-sided and mild left-sided neural from narrowing. Xkuw-io-[id number] central canal stenosis. 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 Mild left subarticular zone effacement. Otherwise moderate severe right and ihtw-qi-sduauydk left-sided neural foraminal narrowing. Bilateral facet arthropathy, moderate. MR/MR lumbar spine wo con IMPRESSION: Subarticular recess narrowing L4-5 and L5-S1, correlate with possible right L5 and S1 radiculopathy. Multilevel bridging. Syndesmophytes and osteophytosis identified which appears to exert mass effect on the exiting right L1 nerve root. Please correlate this no right-sided L1 radiculopathy. Cleft of signal involving L2 vertebral body inferiorly and anteriorly may raise the possibility for incomplete healing of a endplate fracture versus sequelae of underlying inflammatory osteoarthropathy. Consider x-rays Impression dictated by: Bernardino Bean M.D. 04/23/2025 12:32 PM Dictation Location: [place] [address] Electronically authenticated by: [id number] Y Date: 04/23/2025 12:32
--- OUTSIDE RECORDS SUMMARY | 2025-04-23 09:09 | XMS_ITS | CCD ---
Author Organization [facility] Care Team Providers Care Fuel Cell Engineer Name Role Phone PHYSICIAN, DEFAULT Unavailable Unavailable [...] ELHAM, DR DONALD Ruano Primary Care Unavailable MARIELA MENDOZA Consulting Unavailable FAWWAD, WOMACK H Admitting Unavailable FAWWAD, WOMACK H Attending Unavailable DR DONALD LIZARRAGA Primary Care Unavailable DR DONALD LIZARRAGA Primary Care Unavailable FAWWAD, WOMACK H Attending Unavailable FAWWAD, WOMACK H Admitting Unavailable ELHAM, DR DONALD Ruano Primary Care Unavailable MASON .MARIELA Consulting Unavailable ALLEN ., DR JADEN [...] WOMACK H Admitting Unavailable DR DONALD LIZARRAGA E Primary Care Unavailable VILLA ., DR JADEN [...] ., DR JADEN Rodriguez Attending Unavailable MASON .MARIELA Consulting Unavailable LIZARRAGA, DR DONALD Ruano Admitting Unavailable LIZARRAGA, DR DONALD Ruano Attending Unavailable LIZARRAGA, DR DONALD Ruano Consulting Unavailable LIZARRAGA, DR DONALD Ruano Primary Care Unavailable HALKER ., JEET Admitting Unavailable HALKER ., JEET Attending Unavailable ABERDEEN, DR UNA Sofia Consulting Unavailable LIZARRAGA, DR DONALD Ruano Primary Care Unavailable HALKER ., JEET Consulting Unavailable LIZARRAGA, DR DONALD Ruano Primary Care Unavailable VEE, DR HANEY Consulting Unavailable STEPANIC, DR HANEY [...] Donald Lizarraga MD Primary Care Provider [phone] Mariela Mosley APRN Attending Provider [phone] Donald Lizarraga Primary Care Unavailable Mariela Mosley Attending UnavailMariela Castillo Admitting UnavailPrasanth Singletary MD Unavailable [phone] Donald Lizarraga MD Primary Care Provider Merlyn Casillas CMA Attending Provider Unavaila ble Jesus Alberto JACKSON, Andri Attending Provider Donald Lizarraga MD Attending Provider Donald Lizarraga MD Primary Care Provider Peter Auguste DO Attending Provider Jesus Alberto JACKSON, Andrius Kimberlynytautfeliz Attending Unavailable Giedsee JACKSON, Andrius Vytautfeliz Attending Unavailable Girbyant JACKSON, Andrius Vytautas Attending Unavailable Giedraitis , Andrius Vytautas Attending Unavailable Giedraitis , Andrius Vytautas Attending Unavailable Gieditis , Andrius Vytautfeliz Attending Unavailable Allergies Allergy Classification Reported Allergen(s) Allergy Type Date of Onset Reaction(s) Facility (18 sources) Other (Review Comments!); 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: [OTHER (REVIEW COMMENTS!)] Propensity to adverse reactions to drug 12-29-19 19 [facility] (13 sources) Decongestant Drug allergy 10-18-19 24 Unknown, [facility] (10 sources) DECONGESTANTS Propensity to adverse reactions 05-03-20 13 Unknown, Hives [facility] Comment on above: Onset Date: 05/03/20 13 (3 sources) Allergies Reconciled Propensity to adverse reactions Unknown simplifyMD Other (3 sources) patient allergy list reviewed by nurse or physicia Propensity to adverse reactions 11-23-19 Comment:Done simplifyMD Other (1 source) No Known Medication Allergies; 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: [No Known Medication Allergies] Propensity to adverse reactions (disorder) [facility] Repository Medications Current Medications Medication Drug [...] follow instructions per packaging and physician's handout, [facility]/pharmacy #[id number], 183.8, cm, 07/29/22 14:15:00 EST, Height/Length Dosing, [...] therapy Start: 12-20-2017 take 1 tablet by rmua th once daily metoprolol tartrate 100 mg [...] a day Active take 1 tablet by ruam th every twenty-four hours Klor-Con M20 20 [...] mouth. 01/24/2023 Active Sodium Sulfate-Mag Sulfate-KCl (Sutab) 7876-053-670 MG TABS (7 sources) Start: 07-29-2022 Sodium Sulfate -Mag Sulfate-KCl (Sutab) 7775-023-535 MG TABS Take by mouth. 07/29/2022 Active Start: 07-29-2022 Sodium Sulfate -Mag Sulfate-KCl (Sutab) 0010-965-838 MG TABS Take by mouth. 0 07/29/2022 [...] 5 mg-325 mg tablet 0 03/29/2023 Discontinued [id number] 200 actuat albuterol 0.09 mg/actuat metered dose [...] aftercare (20 sources) Drug therapy finding; 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: [shelter (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] Onset: 09-03-2020 Episodic Other aftercare (1 source) emt intermediate (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; 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: [SNF CURRNT USE 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] Onset: 12-07-2022 Episodic Other [...] and Corynebacterium diphtheriae antigens (medicinal product); 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: [Pzjrrogzqg-rffaihn-d ertussis, combined [DTP] [DtaP]] Onset: 02-13-2014 Viral infection (1 source) COVID-19 Results Test Name Value Interpretation Reference Range Facility INR in Platelet poor plasma by Coagulation assayon 12-16-2024 INR Coag (PPP) [Relative time] 2.24 {INR} [facility] Comment on above: DESIRED INR:2.0-3.0 CONDITIONS NOT LISTED BELOW2.5-3.5 FOR PROSTHETIC HEART VALVE REPLACEMENT2.5-3.5 RECURRENT THROMBOSIS Prothrombin time (PT)on PT Coag (PPP) [Time] 21.9 s High 9.0-11.6 [facility] X-ray reportOrdered By: Luz Bryan on 05-26-2024 Study report [facility] [place] [address] XRay Report Signed Patient: Evangelist Ybarra MR#: [id number] : 1955 Acct:[id number] Age/Sex: 68 / M ADM Date: 4 Loc: XDUC Room: Type: [facility] Attending Dr: Mariela Mosley APRN Copies [...] Lupis Bryan M.D.05/26/2024 10:23 AM Dictation Location: [place] [address] Transcribed By: LIV 05/26/24 1023 Dictated By: Lupis Bryan MD 05/26/24 1022 Signed By: 05/26/24 [facility]3 [facility] Work Phone: XR chest 2V*on 05-26-2024 XR chest 2V* [facility] [place] [address] XRay Report Signed Patient: Evangelist Ybarra MR#: [id number] : 1955 Acct:[id number] Age/Sex: 68 / M ADM Date: 05/26/24 Loc: XDUCLY Room: Type: [facility] Attending Dr: Mariela Mosley LIME BOILER Copies to: Mariela Mosley APRN Ordering Provider: [...] Lupis Bryan M.D.05/26/2024 10:23 AM Dictation Location: [place] [address] Transcribed By: LIV 05/26/24 1023 Dictated By: Lupis Bryan MD 05/26/24 1022 Signed By: 05/26/24 1023 Normal [facility] Influenza virus A and B and SARS-CoV-2 (COVID-19) RNA panel - Respiratory system specon 05-08-2024 Influenza virus A and B RNA and SARS-CoV-2 (COVID-19) N gene panel ANNIE+probe (Resp) Influenza virus A and B and SARS-CoV-2 (COVID-19) RNA panel - Respiratory system spec [facility] Laboratory - Microbiology an d Antimicrobial susceptibilityon 05-08-2024 SARS-CoV-2 (COVID-19) RNA ANNIE+probe Ql (Unsp spec) Negative [facility] No Panel Informationon 05-08 POC Influenza B (ANNIE) Negative [facility] INR in Platelet poor plasma by Coagulation assayon 04-29-2024 INR Coag (PPP) [Relative time] 2.42 {INR} [facility] Comment on above: DESIRED INR:2.0-3.0 CONDITIONS NOT LISTED BELOW2.5-3.5 FOR PROSTHETIC HEART VALVE REPLACEMENT2.5-3.5 RECURRENT THROMBOSIS INR Coag (PPP) [Relative time] INR in Platelet poor plasma by Coagulation assay [facility] Comment on above: DESIRED INR:2.0-3.0 CONDITIONS NOT LISTED BELOW2.5-3.5 FOR PROSTHETIC HEART VALVE REPLACEMENT2.5-3.5 RECURRENT THROMBOSIS Prothrombin time (PT)on 04-10 PT Coag (PPP) [Time] 23.5 s High 9.0-11.6 [facility] PT Coag (PPP) [Time] Prothrombin time (PT) High 9.0-11.6 [facility] Progress Noteson 04-15-2024 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 AMLODIPINE BESYLATE [...] declined Stress: No Stress Concern Present (03/27/2023) [employer] [place] of Occupational Health - Occupational Stress Questionnaire Feeling of Stress : Not at all Social Connections: Moderately Integrated (03/27/2023) Social Connection and Isolation Panel [NHANES] Frequency of Communicatio (more content not included)... Normal [facility] Ambulatory Visit Summaryon 0 01-23-2024 Ambulatory [...] URL When: Only if needed Where: [address] [place] [address] [id number] Medications What How Much When Instructions Unchanged [...] ? Ne (more content not included)... Normal [facility] Provider Letteron 01-23-2024 Provider Letter Provider Letter DONALD LIZARRAGA, [facility] [place] [address] Re: EVANGELIST YBARRA Date of : [address] ELHAM JACKSON, DONALD YBARRA EVANGELIST Villafana was evaluated at [facility] 01/30/2024 10:00:00 As this patient has been stable, they will be released back to your care. We request that you continue to check PSA annually for prostate cancer screening Should the patient develop new symptoms, worsening condition, or abnormal imaging/labs in the future, do not hesitate to refer them back. Thanks! Provider Signature: Cathie Hernandez PA-C Physician Tax Adjuster [facility] [address] [place] [address] Normal [facility] Urology Office/Clinic Noteon 01-23-2024 Urology Office/Clinic Note Urology Office/Clinic Note Chief Complaint 1 year follow up with PSA HPI Staff 68 year old patient presents today for a 1 year follow up with PSA. No recent PSA on [facility], [facility], [facility], or [facility]. DX: BPH, ED [...] prn at prior OV pending clearance from orthopedic shoe maker but pt never filled script. Not a [...] our office. Follow-up With When Contact Information CATHIE HERNANDEZ PA-C, URL Only if needed [address] [place] [id number] Additional Instructions: Patient Education Erectile Dysfunction Documentation recorded by the juan david Caceres accurately reflects the services(s) I performed and decisions made by me. Authenticated by Cathie Hernandez PA-C on 01/23/2024 14:33:17. IKrystyna, personally scribed for Cathie Hernandez PA-C on [...] - De (more content not included)... Normal [facility] Comment on above: Result Comment: Elec tronically Signed By: CATHIE HERNANDEZ PA-C\.br\Date and Time Signed: 01/23/24 14:33 EDT\.br\Electronically Co-Signed By: Krystyna Caceres\Dustybr\Date and Time Co-Signed: 01/23/24 14:31 EDT URINALYSISOrdered [...] AM) Normal Negative [facility] UA Auto SS [place].plasma/Lith ium.RBC (Bld) [Mass ratio] 0-3 /HPF Normal [...] [facility] UA Auto SS Urobilinogen Qn (U) 0.4359703 {Anne'U}/dL Normal 0.0 - 1.0 EU/dL [facility] [...] UNA SEARS Date: 2022-11-10 09:46 Normal [facility] CBC AUTO DIFFon 2022 BASO # 0.0 103/ul Normal 0.0-0.1 [facility] Comment on above: Performed By: #### C BC #### [facility] [address] [place] [address] Dr. Jason Pearson Basophils/100 WBC (Bld) 0.7 % Normal 0.2-2.0 [facility] Comment on above: Performed By: #### C BC #### [facility] [address] [place] [address] Dr. Jason Pearson EO # 0.2 103/ul Normal 0.0-0.7 [facility] Comment on above: Performed By: #### C BC #### [facility] [address] [place] [address] Dr. Jason Pearson Eosinophils/100 WBC (Bld) 3.7 % Normal 0.9-7.0 [facility] Comment on above: Performed By: #### C BC #### [facility] [address] [place] [address] Dr. Jason Pearson Erythrocyte distribution width (RBC) [Ratio] 14.0 % Normal 11.0-15.0 [facility] Comment on above: Performed By: #### C BC #### [facility] [address] [place] [address] Dr. Jason Pearson Hematocrit (Bld) [Volume fraction] 41.0 % Critically low 42.0-54.0 [facility] Comment on above: Performed By: #### C BC #### [facility] [address] [place] [address] Dr. Jason Pearson Hemoglobin (Bld) [Mass/Vol] 13.8 g/dL Critically low 14.0-18.0 [facility] Comment on above: Performed By: #### C BC #### [facility] [address] [place] [address] Dr. Jason Pearson IG # 0.01 10e3/ul Normal 0.00-0.03 [facility] Comment on above: Performed By: #### C BC #### [facility] [address] [place] [address] Dr. Jason Pearson IG % 0.2 % Normal 0.0-0.5 [facility] Comment on above: Performed By: #### C BC #### [facility] [address] [place] [address] Dr. Jason Pearson LYMPH # 1.3 103/ul Normal 1.2-3.8 [facility] Comment on above: Performed By: #### C BC #### [facility] [address] [place] [address] Dr. Jason Pearson Lymphocytes/100 WBC (Bld) 22.3 % Normal 20.5-60.0 [facility] Comment on above: Performed By: #### C BC #### [facility] [address] [place] [address] Dr. Jason Pearson MANUAL DIFF REQ NO Normal [facility] Comment on above: Performed By: #### C BC #### [facility] [address] [place] [address] Dr. Jason Pearson MCH (RBC) [Entitic mass] 32.6 pg Normal 25.9-34.0 [facility] Comment on above: Performed By: #### C BC #### [facility] [address] [place] [address] Dr. Jason Pearson MCHC (RBC) [Mass/Vol] 33.7 g/dL Normal 29.9-35.2 [facility] Comment on above: Performed By: #### C BC #### [facility] [address] [place] [id number] Jason Pearson MCV (RBC) [Entitic vol] 96.9 fL Critically high 80.0-94.0 [facility] Comment on above: Performed By: #### C BC #### [facility] [address] [place] [address] [address] Jason Pearson MONO # 0.6 103/ul Normal 0.3-0.8 [facility] Comment on above: Performed By: #### C BC #### [facility] [address] [place] [address] [address] Jason Pearson Monocytes/100 WBC (Bld) 10.5 % Normal 1.7-12.0 [facility] Comment on above: Performed By: #### C BC #### [facility] [address] [place] [address] [address] Jason Pearson NEUT # 3.7 103/ul Normal 1.4-6.5 [facility] Comment on above: Performed By: #### C BC #### [facility] [address] [place] [address] [address] Jason Pearson Neutrophils/100 WBC (Bld) 62.6 % Normal 43.0-75.0 [facility] Comment on above: Performed By: #### C BC #### [facility] [id number] Jason Pearson Platelet mean volume (Bld) [Entitic vol] 9.9 fL Normal 9.5-13.5 [facility] Comment on above: Performed By: #### C BC #### [facility] [address] [place] [address] Dr. Jason Pearson PLT 181 103/ul Normal 150-450 [facility] Comment on above: Performed By: #### C BC #### [facility] [id number] Jason Pearson RBC 4.23 106/ul Critically low 4.70-6.[address] [facility] Comment on above: Performed By: #### C BC #### [facility] [address] [place] [address] [address] Jason Pearson WBC 5.9 103/ul Normal 4.0-11.0 [facility] Comment on above: Performed By: #### C BC #### [facility] [address] [place], [place] [address] Dr. Jason Pearson LIPID PROFILEon 2022 CHOL-HDL RATIO NORM SEE BELOW Normal [facility] Comment on above: Result Comment: 3.3 - 4.4 LOW RISK 4.4 - 7.1 AVERAGE RISK 7.1 - 11.0 MODERATE RISK >11.0 HIGH RISK Performed By: #### C MP, LIPID ####[facility] [address] [place], [place] [address]GpDusty Pearson Cholesterol [Mass/Vol] 163 mg/dL Normal <=200 [facility] Comment on above: Performed By: #### C MP, LIPID ####[facility] [address] [place], [place] [address]TsDusty Pearson Cholesterol in HDL [Mass/Vol] 49 mg/dL Normal 40-60 [facility] Comment on above: Performed By: #### C MP, LIPID ####[facility] [address] [place], [place] [address]EzDusty Pearson Cholesterol in LDL [Mass/Vol] 74.6 mg/dL Normal [facility] Comment on above: Performed By: #### C MP, LIPID ####[facility] [address] [place], [place] [address]Rz. Jason Pearson Cholesterol.total/C holesterol in HDL [Mass ratio] 3.3 {ratio} Normal [facility] Comment on above: Performed By: #### C MP, LIPID ####[facility] [address] [place], [place] [address]Xb. Jason Pearson HDL NORMAL > or = 60 mg/dl - LO W CARDIOVASCULAR RISK <40 mg/dl - HIGH CARDIOVASCULAR RISK Normal [facility] Comment on above: Performed By: #### C MP, LIPID ####[facility] [address] [place], [place] [address]McDusty Pearson LDL CALC NORMAL SEE BELOW Normal [facility] Comment on above: Result Comment: <100 mg/dl OPTIMAL 100 - 129 mg/dl NEAR OR ABOVE OPTIMAL 130 - 159 mg/dl BORDERLINE HIGH 160 - 189 mg/dl HIGH >190 mg/dl VERY HIGH Performed By: #### C MP, LIPID ####[facility] [address] [place] [id number] Pearson Triglyceride [Mass/Vol] 197 mg/dL Critically high <=150 [facility] Comment on above: Performed By: #### C MP, LIPID ####[facility] [address] [place] [address]Dr. Jason Pearson VLDL CALC 39.4 mg/dL Normal [facility] Comment on above: Performed By: #### C MP, LIPID ####[facility] [address] [place] [address]Dr. Jason Pearson MICROALBUMIN, RAND URon 03 mALB 1.3 mg/L Normal <=30.0 [facility] Comment on above: Performed By: #### M ALBR ####[facility] [address] [place] [address]DrDusty Pearson PROF 14(COMP METB)on 023 Albumin [Mass/Vol] 3.7 g/dL Normal 3.4-5.0 [facility] Comment on above: Performed By: #### C MP, LIPID #### [facility] [address] [place] [address] [address] Jason Pearson Albumin/Globulin [Mass ratio] 1.0 {ratio} Normal [facility] Comment on above: Performed By: #### C MP, LIPID #### [facility] [address] [place] [address] [address] Jason Pearson ALP [Catalytic activity/Vol] 56 U/L Normal 46-116 [facility] Comment on above: Performed By: #### C MP, LIPID #### [facility] [address] [place] [address] [address] Jason Pearson ALT [Catalytic activity/Vol] 43 U/L Normal 16-63 [facility] Comment on above: Performed By: #### C MP, LIPID #### [facility] [address] [place] [address] [address] Jason Pearson Anion gap [Moles/Vol] 11.2 mmol/L Normal [facility] Comment on above: Performed By: #### C MP, LIPID #### [facility] [address] [place] [address] [address] Jason Pearson AST [Catalytic activity/Vol] 24 U/L Normal 15-37 [facility] Comment on above: Performed By: #### C MP, LIPID #### [facility] [address] [place] [address] [address] Jason Pearson Bilirubin [Mass/Vol] 0.9 mg/dL Normal 0.2-1.0 [facility] Comment on above: Performed By: #### C MP, LIPID #### [facility] [address] [place] [address] [address] Jason Pearson Calcium [Mass/Vol] 9.6 mg/dL Normal 8.5-10.1 [facility] Comment on above: Performed By: #### C MP, LIPID #### [facility] [address] [place] [address] [address] Jason Pearson Chloride [Moles/Vol] 106 mmol/L Normal 98-107 [facility] Comment on above: Performed By: #### C MP, LIPID #### [facility] [address] [place] [address] [address] Jason Pearson CO2 [Moles/Vol] 30.1 mmol/L Normal 21.0-32.0 [facility] Comment on above: Performed By: #### C MP, LIPID #### [facility] [address] [place] [address] [address] Jason Pearson Creatinine [Mass/Vol] 1.00 mg/dL Normal 0.70-1.30 [facility] Comment on above: Performed By: #### C MP, LIPID #### [facility] [address] [place] [address] [address] Jason Pearson EGFR-AF MEXICAN >60 Normal >=60 [facility] Comment on above: Performed By: #### C MP, LIPID #### [facility] [address] [place] [address] [address] Jason Pearson EGFR-NON AF MEXICAN >60 Normal >=60 [facility] Comment on above: Performed By: #### C MP, LIPID #### [facility] [address] [place] [address] [address] Jason Pearson Globulin (S) [Mass/Vol] 3.6 g/dL Normal [facility] Comment on above: Performed By: #### C MP, LIPID #### [facility] [address] [place] [address] [address] Jason Pearson Glucose [Mass/Vol] 110 mg/dL Critically high 74-106 [facility] Comment on above: Performed By: #### C MP, LIPID #### [facility] [address] [place] [address] Dr. Jason Pearson Potassium [Moles/Vol] 4.3 mmol/L Normal 3.5-5.1 [facility] Comment on above: Performed By: #### C MP, LIPID #### [facility] [address] [place] [address] Dr. Jason Pearson Protein [Mass/Vol] 7.3 g/dL Normal 6.4-8.2 [facility] Comment on above: Performed By: #### C MP, LIPID #### [facility] [address] [place] [address] Dr. Jason Pearson Sodium [Moles/Vol] 143 mmol/L Normal 136-145 [facility] Comment on above: Performed By: #### C MP, LIPID #### [facility] [address] [place] [address] Dr. Jason Pearson Urea nitrogen [Mass/Vol] 15.0 mg/dL Normal 7.0-18.0 [facility] Comment on above: Performed By: #### C MP, LIPID #### [facility] [address] [place] [address] Dr. Jason Pearson Urea nitrogen/Creatinine [Mass ratio] 15.0 mg/mg Normal [facility] Comment on above: Performed By: #### C MP, LIPID #### [facility] [address] [place] [address] [address] Jason Pearson PROTIMEon 06-28-2022 INR Coag (PPP) [Relative time] 1.11 {INR} Normal [facility] Comment on above: Performed By: #### P T ####[facility] [address] [place] [address]Dr. Jason Pearson INR GUIDELINES SEE BELOW Normal [facility] Comment on above: Result Comment: KOFI RED INR: 2.0 - 3.0 CONDITIONS NOT LISTED BELOW 2.5 - 3.5 FOR PROSTHETIC HEART VALVE REPLACEMENT 2.5 - 3.5 RECURRENT THROMBOSIS Performed By: #### P T ####[facility] [address] [place] [address]Dr. Jason Pearson PT Coag (PPP) [Time] 11.9 s Critically high 9.0-11.6 [facility] Comment on above: Performed By: #### P T ####[facility] [address] [place], [place] [address]Dr. Jason Pearson PROTIMEon 03-22-2022 INR Coag (PPP) [Relative time] 1.32 {INR} Normal [facility] Comment on above: Performed By: #### P T #### [facility] [address] [place] [address] Dr. Jason Pearson INR GUIDELINES SEE BELOW Normal [facility] Comment on above: Result Comment: KOFI RED INR: 2.0 - 3.0 CONDITIONS NOT LISTED BELOW 2.5 - 3.5 FOR PROSTHETIC HEART VALVE REPLACEMENT 2.5 - 3.5 RECURRENT THROMBOSIS Performed By: #### P T #### [facility] [address] [place] [address] Dr. Jason Pearson PT Coag (PPP) [Time] 14.0 s Critically high 9.0-11.6 [facility] Comment on above: Performed By: #### P T #### [facility] [address] [place] [address] Dr. Jason Pearson PROTIMEon 02-07-2022 INR Coag (PPP) [Relative time] 1.08 {INR} Normal [facility] Comment on above: Performed By: #### P T #### [facility] [address] [address] [address] Jason Pearson INR GUIDELINES SEE BELOW Normal [facility] [place] Comment on above: Result Comment: KOFI RED INR: 2.0 - 3.0 CONDITIONS NOT LISTED BELOW 2.5 - 3.5 FOR PROSTHETIC HEART VALVE REPLACEMENT 2.5 - 3.5 RECURRENT THROMBOSIS Performed By: #### P T #### [facility] [address] [address] [address] Jason Pearson PT Coag (PPP) [Time] 11.6 s Normal 9.0-11.6 [facility] Comment on above: Performed By: #### P T #### [facility] [address] [address] [address] Jason Pearson XR HIP RT INJon [...] RUPERT MOON Date: 2022-02-07 11:09 Normal [facility] Initial Visit (Gastroenterol ogy)on 03-28-2018 Initial [...] from the patient and documented on the [facility] health history questionnaire. Pertinent positives and [...] MG Oral Tablet; TAKE 1 TABLET DAILY;Therapy: (Recorded:[id number]) to Recorded Dispense: 0 Days ; #: Sufficient Tablet; Refill: 0; KP = N; Record; Last Updated By: Toyin Angeles; 03/28/2018 9:14:26 AM Flecainide Acetate 100 MG Oral Tablet; TAKE 1 TABLET EVERY 12 HOURS DAILY;Therapy: (Recorded:[id number]) to Recorded Dispense: 0 Days ; #: Sufficient Tablet; Refill: 0; KP = N; Record; Last Updated By: Toyin Angeles; 03/28/2018 9:14:26 AM HydroCHLOROthiazide 25 MG Oral Tablet; TAKE 1 TABLET DAILY;Therapy: (Recorded:[id number]) to Recorded Dispense: 0 Days ; #: Sufficient Tablet; Refill: 0; KP = N; Record; Last Updated By: Toyin Angeles; 03/28/2018 9:14:26 AM Imodium A-D CAPS;Therapy: (Recorded:[id number]) to Recorded Dispense: 0 Days ; #: Sufficient CAPS; Refill: 0; KP = N; Record; Last Updated By: Toyin Angeles; 03/28/2018 9:14:26 AM Klor-Con M20 20 MEQ Oral Tablet Extended Release; TAKE 2 TABLETS TWICE DAILY;Therapy: (Recorded:[id number]) to Recorded Dispense: 0 Days ; #: Sufficient Tablet Extended Release; Refill: 0; KP = N; Record; Last Updated By: Toyin Angeles; 03/28/2018 9:14:26 AM Lisinopril 40 MG Oral Tablet; TAKE 1 TABLET DAILY;Therapy: (Recorded:[id number]) to Recorded Dispense: 0 Days ; #: Sufficient Tablet; Refill: 0; KP = N; Record; Last Updated By: Toyin Angeles; 03/28/2018 9:14:26 AM Loratadine 10 MG Oral Tablet; TAKE 1 TABLET DAILY;Therapy: (Recorded:[id number]) to Recorded Dispense: 0 Days ; #: Sufficient Tablet; Refill: 0; KP = N; Record; Last Updated By: Toyin Angeles; 03/28/2018 9:14:26 AM Metoprolol Tartrate 100 MG Oral Tablet; TAKE 1 TABLET DAILY;Therapy: (Recorded:[id number]) to Recorded Dispense: 0 Days ; #: Sufficient Tablet; Refill: 0; KP = N; Record; Last Updated By: Toyin Angeles; 03/28/2018 9:14:26 AM Multivitamins TABS;Therapy: (Recorded:[id number]) to Recorded Dispense: 0 Days ; #: Sufficient TABS; Refill: 0; KP = N; Record; Last Updated By: Toyin Angeles; 03/28/2018 9:14:26 AM Tamsulosin HCl - 0.4 MG Oral Capsule;Therapy: (Recorded:[id number]) to Recorded Dispense: 0 Days ; #: Sufficient Capsule; Refill: 0; KP = N; Record; Last Updated By: Toyin Angeles; 03/28/2018 9:14:26 AM Vitamin B-12 ER 1500 MCG Oral Tablet Extended Release;Therapy: (Recorded:[id number]) to Recorded Dispense: 0 Days ; #: Sufficient TBCR; Refill: 0; KP = N; Record; Last Updated By: Toyin Angeles; 03/28/2018 9:14:26 AM Vitamin D3 2000 UNIT Oral Tablet;Therapy: (Recorded:[id number]) to Recorded Dispense: 0 Days ; #: Sufficient Tablet; Refill: 0; KP = N; Record; Last Updated By: Toyin Angeles; 03/28/2018 9:14:26 AM Warfarin Sodium 5 MG Oral Tablet; TAKE 1 TABLET DAILY;Therapy: (Recorded:[id number]) to Recorded Dispense: 0 Days ; #: Sufficient Tablet; Refill: 0; KP = N; Record; Last Updated By: Toyin Angeles; 03/28/2018 9:14:26 AM Vitals Vital Signs Recorded: 28Mar2018 09:12AMHeart Dasn45Fvndorgkcpd17Dbupggjf67 5Pqvbeplxp30Fhwywa2 ft 2 ozBdnlls625 lb 6 ozBMI Vjriqpxgrc94.52BSA Calculated2.67 Physical ExamConstitutional General appearance: In no [...] diarrhea; KP = N; Verified Transmission to [id number]; Last Updated By: Rafi Rhodes; 03/28/2018 9:44:38 [...] MG Oral Tablet; TAKE 1 TABLET DAILY;Therapy: (Recorded:[id number]) to RecordedCholestyramine Light 4 GM Oral Packet; MIX THE CONTENTS OF 1 POWDER PACKETWITH 2-6 OZ OF NONCARBONATED BEVERAGE AND SWALLOW ONCE DAILY;Therapy: [id number] to (Evaluate:[id number]) Requested for: [id number]; LastRx:[id number] OrderedFlecainide Acetate 100 MG Oral Tablet; TAKE 1 TABLET EVERY 12 HOURS DAILY;Therapy: (Recorded:[id number]) to RecordedHydroCHLOROthiazide 25 MG Oral Tablet; TAKE 1 TABLET DAILY;Therapy: (Recorded:[id number]) to RecordedImodium A-D CAPS (Loperamide HCl);Therapy: (Recorded:[id number]) to RecordedKlor-Con M20 20 MEQ Oral Tablet Extended Release; TAKE 2 TABLETS TWICE DAILY;Therapy: (Recorded:[id number]) to RecordedLisinopril 40 MG Oral Tablet; TAKE 1 TABLET DAILY;Therapy: (Recorded:[id number]) to RecordedLoratadine 10 MG Oral Tablet; TAKE 1 TABLET DAILY;Therapy: (Recorded:[id number]) to RecordedMetoprolol Tartrate 100 MG Oral Tablet; TAKE 1 TABLET DAILY;Therapy: (Recorded:[id number]) to RecordedMultivitamins TABS;Therapy: (Recorded:84Yui0305) to RecordedTamsulosin HCl - 0.4 MG Oral Capsule;Therapy: (Recorded:[id number]) to RecordedVitamin B-12 ER 1500 MCG Oral Tablet Extended Release;Therapy: (Recorded:00Pdf3763) to RecordedVitamin D3 2000 UNIT Oral Tablet;Therapy: (Recorded:[id number]) to RecordedWarfarin Sodium 5 MG Oral Tablet; TAKE 1 TABLET DAILY;Therapy: (Recorded:[id number]) to Recorded Signatures Electronically signed by : Devin Greer DO; Mar 28 2018 9:51AM EST (Author) Normal [facility] Vital Signs Date Time Vital Sign Value Performing Clinician Facility 03-03-2025 10:51-0400 Body height 187.96 cm Donald Lizarraga MD Work Phone: [facility] 03-03-2025 10:51-0400 Body mass index (BMI) [Ratio] 38.1 kg/m2 Donald Lizarraga MD Work Phone: [facility] 03-03-2025 10:51-0400 Body weight 134.7 kg Donald Lizarraga MD Work Phone: [facility] 02-12-2025 09:22-0400 Body height 187.96 cm Donald Lizarraga MD Work Phone: [facility] 02-12-2025 09:22-0400 Body mass index (BMI) [Ratio] 38.1 kg/m2 Donald Lizarraga MD Work Phone: [facility] 02-12-2025 09:22-0400 Body weight 134.71 kg Donald Lizarraga MD Work Phone: [facility] 02-12-2025 09:22-0400 Diastolic blood pressure 77 mm[Hg] Donald Lizarraga MD Work Phone: [facility] 02-12-2025 09:22-0400 Heart rate 61 /min Donald Lizarraga MD Work Phone: [facility] 02-12-2025 09:22-0400 Systolic blood pressure 128 mm[Hg] Donald Lizarraga MD Work Phone: [facility] 05-29-2024 09:52-0500 Body height 187.96 cm Donald Lizarraga MD Work Phone: [facility] 05-29-2024 09:52-0500 Body mass index (BMI) [Ratio] 38.4 kg/m2 Donald Lizarraga MD Work Phone: [facility] 05-29-2024 09:52-0500 Body temperature 98.5 [degF] Donald Lizarraga MD Work Phone: [facility] 05-29-2024 09:52-0500 Body weight 135.62 kg Donald Lizarraga MD Work Phone: [facility] 05-29-2024 09:52-0500 Diastolic blood pressure 81 mm[Hg] Donald Lizarraga MD Work Phone: [facility] 05-29-2024 09:52-0500 Heart rate 73 /min Donald Lizarraga MD Work Phone: [facility] 05-29-2024 09:52-0500 SaO2% (BldA) [Mass fraction] 98 % Donald Lizarraga MD Work Phone: [facility] 05-29-2024 09:52-0500 Systolic blood pressure 137 mm[Hg] Donald Lizarraga MD Work Phone: [facility] 05-26-2024 09:18-0500 Body height 187.96 cm Donald Lizarraga MD Work Phone: [facility] 05-26-2024 09:18-0500 Body mass index (BMI) [Ratio] 38.5 kg/m2 Donald Lizarraga MD Work Phone: [facility] 05-26-2024 09:18-0500 Body temperature 98.1 [degF] Donald Lizarraga MD Work Phone: [facility] 05-26-2024 09:18-0500 Body weight 136.13 kg Donald Lizarraga MD Work Phone: [facility] 05-26-2024 09:18-0500 Diastolic blood pressure 77 mm[Hg] Donald Lizarraga MD Work Phone: [facility] 05-26-2024 09:18-0500 Heart rate 73 /min Donald Lizarraga MD Work Phone: [facility] 05-26-2024 09:18-0500 Respiratory rate 18 /min Donald Lizarraga MD Work Phone: [facility] 05-26-2024 09:18-0500 SaO2% (BldA) [Mass fraction] 96 % Donald Lizarraga MD Work Phone: [facility] 05-26-2024 09:18-0500 Systolic blood pressure 127 mm[Hg] Donald Lizarraga MD Work Phone: [facility] 05-08-2024 09:24-0400 Body height 187.96 cm [facility] 05-08-2024 09:24-0400 Body mass index (BMI) [Ratio] 38.8 kg/m2 [facility] 05-08-2024 09:24-0400 Body temperature 98 [degF] [facility] 05-08-2024 09:24-0400 Body weight 137.15 kg [facility] 05-08-2024 09:24-0400 Diastolic blood pressure 73 mm[Hg] [facility] 05-08-2024 09:24-0400 Heart rate 70 /min [facility] 05-08-2024 09:24-0400 Respiratory rate 18 /min [facility] 05-08-2024 09:24-0400 SaO2% (BldA) [Mass fraction] 98 % [facility] 05-08-2024 09:24-0400 Systolic blood pressure 167 mm[Hg] [facility] 01-23-2024 14:11-0400 Blood Pressure Location CATHIEVI HERNANDEZ [facility] 01-23-2024 14:11-0400 Body temperature 97.88 [degF] CATHIE HERNANDEZ [facility] 01-23-2024 14:11-0400 Diastolic blood pressure 74 mm[Hg] CATHIE TIANA [facility] 01-23-2024 14:11-0400 Heart rate 67 /min CATHIE TIANA [facility] 01-23-2024 14:11-0400 Respiratory rate 16 /min CATHIE HERNANDEZ [facility] 01-23-2024 14:11-0400 Systolic blood pressure 138 mm[Hg] CATHIE HERNANDEZ [facility] 10-19-2023 10:19-0400 Body height 187.96 cm [facility] 10-19-2023 10:19-0400 Body mass index (BMI) [Ratio] 40.1 kg/m2 [facility] 10-19-2023 10:190400 Body weight 141.63 kg [facility] 10-19-2023 10:19-0400 Diastolic blood pressure 84 mm[Hg] [facility] 10-19-2023 10:19-0400 Heart rate 71 /min [facility] 10-19-2023 10:19-0400 SaO2% (BldA) [Mass fraction] 98 % [facility] 10-19-2023 10:19-0400 Systolic blood pressure 132 mm[Hg] [facility] 07-13-2023 15:30-0500 Body height 187.96 cm Donald Lizarraga Other [employer] [facility] [employer] Other 07-13-2023 15:30-0500 Body mass index (BMI) [Ratio] 40.18 kg/m2 Donald Lizarraga Other [employer] Other 07-13-2023 15:30-0500 Body weight 141.98 kg Donald Lizarraga Other [employer] Other 07-13-2023 15:30-0500 Diastolic blood pressure 86 mm[Hg] Donald Lizarraga Other [employer] Other 07-13-2023 15:30-0500 Systolic blood pressure 142 mm[Hg] Donald Lizarraga Other [employer] Other 01-24-2023 10:00-0400 Blood Pressure Location CATHIE TIANA [facility] 01-24-2023 10:00-0400 Diastolic blood pressure 80 mm[Hg] CATHIE TIANA [facility] 01-24-2023 10:00-0400 Heart rate 72 /min CATHIE TIANA [facility] 01-24-2023 10:00-0400 Respiratory rate 16 /min CATHIE TIANA [facility] 01-24-2023 10:00-0400 Systolic blood pressure 130 mm[Hg] CATHIE TIANA [facility] 10-06-2022 10:17-0400 Diastolic blood pressure 78 mm[Hg] Daigle SALAM [facility] 10-06-2022 10:17-0400 Heart rate 69 /min Daigle SALAM [facility] 10-06-2022 10:17-0400 Respiratory rate 16 /min Daigle SALAM [facility] 10-06-2022 10:17-0400 SaO2% (BldA) [Mass fraction] 99 % Daigle SALAM [facility] 10-06-2022 10:17-0400 Systolic blood pressure 122 mm[Hg] Daigle SALAM [facility] 10-06-2022 10:05-0400 Diastolic blood pressure 76 mm[Hg] Daigle SALAM [facility] 10-06-2022 10:05-0400 Heart rate 67 /min Daigle SALAM [facility] 10-06-2022 10:05-0400 Respiratory rate 18 /min Daigle SALAM [facility] 10-06-2022 10:05-0400 SaO2% (BldA) [Mass fraction] 99 % Daigle SALAM [facility] 10-06-2022 10:05-0400 Systolic blood pressure 135 mm[Hg] Daigle SALAM [facility] 10-06-2022 10:00-0400 Diastolic blood pressure 70 mm[Hg] Daigle SALAM [facility] 10-06-2022 10:00-0400 Heart rate 66 /min Daigle SALAM [facility] 10-06-2022 10:00-0400 Systolic blood pressure 134 mm[Hg] Daigle SALAM [facility] 10-06-2022 09:55-0400 Respiratory rate 16 /min Daigle SALAM [facility] 10-06-2022 09:52-0400 Body temperature 97.7 [degF] Daigle SALAM [facility] 10-06-2022 09:40-0400 Respiratory rate 1 /min Daigle SALAM [facility] 10-06-2022 08:21-0400 Blood Pressure Location Daigle SALAM [facility] 10-06-2022 08:21-0400 Body temperature 97.88 [degF] Daigle SALAM [facility] 07-29-2022 14:15-0500 Diastolic blood pressure 88 mm[Hg] [facility] 07-29-2022 14:15-0500 Mean blood pressure 105 mm[Hg] Elicia Garciametz [facility] 07-29-2022 14:15-0500 Systolic blood pressure 138 mm[Hg] Elicia Garciametz [facility] 07-29-2022 14:11-0500 Blood Pressure Location Eliciagurwinder GarciaHipolito [facility] 07-29-2022 14:11-0500 Body temperature 97.88 [degF] Elicia Garciametz [facility] 07-29-2022 14:11-0500 Diastolic blood pressure 87 mm[Hg] Elicia Garciametz [facility] 07-29-2022 14:11-0500 Heart rate 77 /min Elicia Mcmillan [facility] 07-29-2022 14:11-0500 Systolic blood pressure 147 mm[Hg] Elicia Garciametz [facility] 07-26-2022 10:45-0500 Body height 187.96 cm Donald Lizarraga Other [employer] Other 07-26-2022 10:45-0500 Body mass index (BMI) [Ratio] 41.47 kg/m2 Donald Lizarraga Other [employer] Other 07-26-2022 10:45-0500 Body weight 146.51 kg Donald Lizarraga Other [employer] Other 07-26-2022 10:45-0500 Diastolic blood pressure 84 mm[Hg] Donald Lizarraga Other [employer] Other 07-26-2022 10:45-0500 SaO2% (BldA) [Mass fraction] 97 % Donald Lizarraga Other [employer] Other 07-26-2022 10:45-0500 Systolic blood pressure 142 mm[Hg] Donald Lizarraga Other [employer] Other 10-27-2021 12:02-0400 Blood Pressure Location CATHIE HERNANDEZ [facility] [employer] 10-27-2021 12:02-0400 Diastolic blood pressure 78 mm[Hg] [email or web address] 10-27-2021 12:02-0400 Heart rate 77 /min CATHIE HERNANDEZ [facility] 10-27-2021 12:02-0400 Systolic blood pressure 141 mm[Hg] CATHIE HERNANDEZ [facility] Encounters Encounter Date Encounter Type Care Provider Facility Start: 04-14-2025 End: 04-14-2025 ambulatory Blessing Granda MD Facility:[facility] Start: 04-02-2025 End: 04-02-2025 Patient encounter status Prasanth Perez MD Work Phone: [facility] Start: 04-02-2025 End: 04-02-2025 Refill Prasanth Perez MD Work Phone: [facility] Comment on above: Refill Start: 03-24-2025 End: 03-24-2025 ambulatory Blessing Granda MD Facility:[facility] Start: 03-03-2025 End: 03-03-2025 ambulatory Donald Lizarraga MD Work Phone: [facility] Work Phone: Start: 03-03-2025 End: 03-03-2025 Patient encounter procedure Peter Auguste DO -[facility] [place] Work Phone: Start: 02-12-2025 End: 02-12-2025 ambulatory Donald Lizarraga MD Work Phone: [facility] Work Phone: Start: 02-12-2025 End: 02-12-2025 Patient encounter procedure Donald Lizarraga MD -[facility] Work Phone: Start: 12-23-2024 End: 12-23-2024 ambulatory Blessing Granda MD Facility: [place] Start: 12-16-2024 Non-patient / Non-visit Blessing cui MD [facility] Work Phone: Start: 12-16-2024 End: 12-16-2024 ambulatory Blessing Granda MD Facility: [facility] Start: 12-14-2024 End: 12-14-2024 Letter encounter Emperatriz Carnes Work Phone: [facility] Start: 11-28-2024 Non-patient / Non-visit Merlyn Mesa CMA -[facility] Work Phone: Start: 11-25-2024 End: 11-25-2024 ambulatory Blessing Granda MD Facility:[facility] Start: 11-06-2024 End: 11-06-2024 Refill Prasanth Perez MD Work Phone: [facility] Comment on above: Refill Start: 05-29-2024 End: 05-29-2024 ambulatory Donald Lizarraga MD Work Phone: [facility] Work Phone: Start: 05-29-2024 End: 05-29-2024 Patient encounter procedure Donald Lizarraga MD Work Phone: [facility] Work Phone: Start: 05-26-2024 End: 05-26-2024 ambulatory Donald Lizarraga MD Work Phone: [facility] Work Phone: Start: 05-26-2024 End: 05-26-2024 Patient encounter procedure Donald Lizarraga MD Work Phone: [facility] Work Phone: Start: 05-08-2024 End: 05-08-2024 ambulatory [facility] Work Phone: Start: 05-08-2024 End: 05-08-2024 Patient encounter procedure [facility] Work Phone: Start: 04-29-2024 Non-patient / Non-visit [facility] Work Phone: Start: 04-29-2024 End: 04-29-2024 ambulatory Blessing Granda MD Facility:[facility] Start: 04-15-2024 End: 04-15-2024 Office outpatient visit 25 minutes Prasanth Perez MD Work Phone: [facility] Comment on above: PAF (paroxysmal atri al fibrillation) (HCC) (Primary Dx) Start: 04-15-2024 End: 04-15-2024 ambulatory PRASANTH PEREZ Facility:[facility] Start: 01-23-2024 End: 01-23-2024 ambulatory CATHIE HERNANDEZ Facility:[facility] Start: 01-23-2024 End: 01-23-2024 Patient encounter procedure CATHIE HERNANDEZ [facility] Start: 12-27-2023 End: 12-28-2023 Patient encounter status Emperatriz Karim DO Work Phone: [facility] Start: 12-27-2023 End: 12-28-2023 Refill Emperatriz Carnes DO Work Phone: [facility] Comment on above: Refill Start: 10-19-2023 End: 10-19-2023 ambulatory [facility] Work Phone: Start: 10-19-2023 End: 10-19-2023 Patient encounter procedure [facility] Work Phone: Start: 09-07-2023 Non-patient / Non-visit [facility] Work Phone: Start: 07-20-2023 End: 07-20-2023 ambulatory Donald Lizarraga Other [employer] Other Start: 07-20-2023 Telephone encounter Donald Lizarraga [facility] Start: 07-13-2023 End: 07-13-2023 ambulatory Donald Lizarraga Other [employer] Other Start: 07-13-2023 Office outpatient vi sit 15 minutes Donald Lizarraga [facility] Start: 04-04-2023 Patient encounter status Emperatriz Carnes DO Work Phone: [facility] Start: 04-04-2023 Refill Emperatriz Carnes DO Work Phone: [facility] Comment on above: Refill Start: 03-29-2023 End: 03-29-2023 Office outpatient visit 15 minutes Emperatirz Carnes DO Work Phone: [facility] Comment on above: Persistent atrial fi brillation (HCC) (Primary Dx); Anticoagulated; JAVED on CPAP Start: 03-28-2023 End: 03-28-2023 ambulatory Donald Lizarraga Other [employer] Other Start: 03-28-2023 Telephone encounter Donald Lizarraga [facility] Start: 03-18-2023 Letter encounter Emperatriz Villafana O Work Phone: [facility] Start: 02-16-2023 Telephone encounter Emperatriz velarde DO Work Phone: [facility] Comment on above: Question about medic ation Refill Start: 02-14-2023 Patient encounter status Emperatriz Carnes DO Work Phone: [facility] Start: 02-14-2023 Refill Emperatriz Carnes DO Work Phone: [facility] Comment on above: Refill Start: 01-24-2023 End: 01-24-2023 Lab Drop off CATHIE HERNANDEZ [facility] Start: 01-24-2023 End: 01-24-2023 Patient encounter procedure CATHIE HERNANDEZ [facility] Start: 11-10-2022 End: 11-11-2022 ambulatory JEET HERNÁNDEZ . Facility:[facility] Start: 11-07-2022 End: 12-07-[address] DONALD LIZARRAGA Facility:[facility] Start: 10-13-2022 ambulatory NARENDRANELOY LAKSHMIPATHY . Facility:[facility] Start: 10-11-2022 (Televisit) Televisit Donald Leon [facility] Start: 10-11-2022 End: 10-11-2022 ambulatory Donald Lizarraga Other [place] [employer] Other Start: 10-10-2022 End: 11-04-2022 ambulatory SHAIKH Gurwinder FARMER Facility:[facility] Start: 10-06-2022 End: 10-06-2022 Patient encounter procedure Oxana IBARRA [facility] Start: 2022 Telephone encounter Donald BARRERA [facility] Start: 2022 End: 09-09-[address] DONALD LIZARRAGA [facility] [employer] Other Start: 09-07-2022 End: 10-07-2022 ambulatory SHAIKH Gurwinder FARMER Facility:[facility] Start: 08-10-2022 End: 09-07-2022 ambulatory SHAIKH Gurwinder FARMER Facility:[facility] Start: 07-29-2022 End: 07-29-2022 Patient encounter procedure Elicia Mcmillan [facility] Start: 07-26-2022 End: 07-26-2022 ambulatory Donald Lizarraga Other [facility] [employer] Other Start: 07-26-2022 Office outpatient vi sit 15 minutes Donald Lizarraga [facility] Start: 07-20-2022 End: 07-21-[address] JADEN [...] Emperatriz Carnes DO [facility] Phone: [facility] Start: 02-27-2022 Refill Emperatriz Karim DO Work Phone: [facility] Comment on above: Refill Start: 02-07-2022 End: 02-07-[address] DONALD LIZARRAGA Facility:[facility] Start: 02-07-2022 End: 03-09-[address] DONALD LIZARRAGA Facility:[facility] Start: 01-15-2022 Refill Emperatriz Karim DO Work Phone: [facility] Comment on above: Refill Start: 01-07-2022 End: 02-04-[address] DONALD LIZARRAGA Facility:[facility] Start: 11-24-2021 Patient encounter status Emperatriz Karim DO Work Phone: [facility] Start: 11-24-2021 Refill Emperatriz Karim DO Work Phone: [facility] Comment on above: Refill Start: 11-24-2021 Refill Emperatriz Karim DO Work Phone: [facility] Comment on above: Refill Start: 10-27-2021 End: 10-27-2021 Patient encounter procedure CATHIE HERNANDEZ [facility] Start: 03-28-2018 Patient encounter Devin Greer Fa cility:[facility] Start: 04-24-2017 End: 04-25-2017 Ambulatory DEFAULT PHYSICIAN Facility:[facility] Start: 03-03-2017 End: 03-04-2017 Ambulatory DEFAULT PHYSICIAN Facility:[facility] Procedures Date Procedure Procedure Detail Performing Clinician Start: 05-26-2024 Plain chest X-ray Donald Lizarraga MD Work Phone: Start: 10-06-2022 Colonoscopy Oxana IBARRA Start: [address] JADEN VILLA . Comment on above: Performed By: #### PSASC #### [facility] [address] [place] [address] Dr. Jason Pearson Start: 04-23-2020 Transurethral prostatectomy CATHIE AZEVEDO [place] Start: 07-19-2018 Transrectal biopsy of prostate using [...] prostate Donald Lizarraga Other Special back care CATHIEVI DIAZ Plan of Treatment Date Care Activity Detail Author Start: 09-09-2027 Lipid panel Cholesterol [facility] Start: 03-10-2025 COVID-19 Vaccine ( season) COVID-19 Vaccine () [facility] Start: 03-10-2025 Influenza vaccination Influenza Vaccine (#1) [facility] Start: 02-12-2025 Patient referral [facility] Work Phone: Start: 03-10-2024 COVID-19 Vaccine ( season) COVID-19 Vaccine ( season) [facility] Start: 03-10-2024 COVID-19 Vaccine ( season) COVID-19 Vaccine () [facility] Start: 03-10-2024 Influenza vaccination Influenza Vaccine (#1) [facility] Start: 04-09-2023 Influenza vaccination Influenza Vaccine [facility] Start: 03-29-2023 End: 03-29-2023 Telemedicine consultation with patient 03/29/2023 4:20 PM EDT Telemedicine [facility] [address] [place] [address] Emperatriz Carnes DO [address] [address] [facility] Start: 03-10-2023 COVID-19 Vaccine ( season) [...] (1 - Risk 60-74 years 1-dose series) [facility] Start: 2013 RSV vaccine (optional 60+ years) [...] Screening for malignant neoplasm of colon Colonoscopy [facility] Patient Education Low back pain in adults [facility] Work Phone: Patient referral [facility] Work Phone: Immunizations Immunization Date Immunization Notes Care Provider [facility] 05-24-2023 Pneumococcal conjuga te 20 valent (PCV20), polysaccharide [id number] conjugate, adjuvant, PF (CRN=411) [employer] Work Phone: [facility] 05-10-2023 influenza virus vaccine, unspecified formulation CATHIE HERNANDEZ [facility] 05-10-2023 Influenza, seasonal vaccine, quadrivalent, adjuvanted, 0.5mL dose, preservative free (SJC=965) [employer] Work Phone: [facility] 05-24-2022 influenza virus vaccine, unspecified formulation Elicia Mcmillan [facility] 05-24-2022 Influenza, seasonal vaccine, quadrivalent, adjuvanted, 0.5mL dose, preservative free (BSE=119) Emperatriz Karim DO [facility]-16-2021 Pfizer Monovalent (1 2+ yrs) SARS-COV-2 (COVID-19) vaccine, mRNA, spike protein, LNP, pres. free, 30 mcg/0.3mL dose, art-sucrose (TBR=816) Emperatriz Karim DO Work Phone: [facility] 12-16-2021 SARS-CoV-2 mRNA (xhlsantrpns-zcqx-lxict se) vaccine Elicia Mcmillan [facility] 08-18-2021 pneumococcal conjuga te vaccine, 13 valent Emperatriz Carnes DO Work Phone: [facility] 06-09-2021 SARS-CoV-2 (COVID-19 ) mRNA BNT-162b2 vax Elicia Mcmillan [facility] 05-26-2021 SARS-CoV-2 (COVID-19 ) Ad26 vaccine, recombinant CATHIE HERNANDEZ [facility] 05-21-2021 Influenza, seasonal vaccine, quadrivalent, adjuvanted, 0.5mL dose, preservative free (TWA=924) Emperatriz Karim DO Work Phone: [facility] 05-21-2021 influenza virus vaccine, unspecified formulation Emperatriz Karim DO Work Phone: [facility] 04-28-2021 influenza virus vaccine, unspecified formulation CATHIE TIANA [facility] 04-28-2021 SARS-CoV-2 (COVID-19 ) Ad26 vaccine, recombinant CATHIE HERNANDEZ [facility] 09-26-2020 Pfizer SARS-COV-2 (COVID-19) vaccine, age 12+ yrs, mRNA, spike protein, LNP, preservative free, 30 mcg/0.3mL dose (EKT=619) Emperatriz Karim DO [facility] Comment on above: Result Comment: 2022: [id number] 09-05-2020 Pfizer SARS-COV-2 (COVID-19) vaccine, age 12+ yrs, mRNA, spike protein, LNP, preservative free, 30 mcg/0.3mL dose (BSR=878) Emperatriz Karim DO Work Phone: [employer] Comment on above: Result Comment: 2022: [id number] 05-10-2020 influenza virus vaccine, unspecified formulation CATHIE HERNANDEZ [facility] 05-05-2020 influenza virus vaccine, unspecified formulation Eliciagurwinder GarciaHipolito [facility] 05-05-2020 Influenza, seasonal vaccine, quadrivalent, adjuvanted, 0.5mL dose, preservative free (OCO=923) Emperatriz Karim DO [facility] Phone: [facility] 04-29-2019 influenza virus vaccine, unspecified formulation Eliciagurwinder GarciaHipolito [facility] 04-29-2019 influenza, high dose seasonal, preservative-free Emperatriz Karim DO [facility] 04-26-2018 influenza virus vaccine, unspecified formulation Eliciagurwinder GarciaHipolito [facility] 04-26-2018 Influenza, injectabl e, Madin Courtney Canine Kidney, preservative free, quadrivalent Emperatriz Karim DO Work Phone: [facility] 04-19-2016 influenza virus vaccine, split virus (incl. purified surface antigen) Donald Lizarraga Other [facility] [employer] Other 04-19-2016 influenza virus vaccine, unspecified formulation [facility] 04-19-2016 pneumococcal polysaccharide vaccine, 23 valent Donaldtrixie Lizarraga Other [facility] 06-23-2014 influenza virus vaccine, split virus (incl. purified surface antigen) Donald Lizarraga Other [facility] [employer] Other 06-23-2014 influenza virus vaccine, unspecified formulation [facility] 02-13-2014 diphtheria, tetanus toxoids and acellular pertussis vaccine, unspecified formulation Donaldtrixie Lizarraga Other [facility] Payers Date Payer Category Payer Commercial Indemnity [facility] [id number] 2022 Unknown 2018 Medicare [id number] [id number]. [id number] 2018 Medicare FFS MEDICARE [id number]. [id number] 1959 Medicare [id number] 2.16.840.1.013882.19 1959 Unknown [id number] 2.16.840.1.518719.19 1953 Unknown [id number] 2.16.840.1.787071.3.579.2.5 93 1953 Unknown [id number] 2.16.840.1.258011.3.579.2.5 93 1953 Unknown [id number] 2.16.840.1.716843.3.579.2.5 93 1953 Unknown [id number] 2.16.840.1.673290.3.579.2.5 93 1953 Unknown [id number] 2.16.840.1.872253.3.579.2.5 93 1953 Unknown [id number] 2.16.840.1.316025.3.579.2.5 93 1953 Unknown [id number] 2.16.840.1.019365.3.579.2.5 93 1953 Unknown [id number] 2.16.840.1.045966.3.579.2.5 93 1953 Unknown [id number] 2.16.840.1.233692.3.579.2.5 93 1953 Unknown [id number] 2.16.840.1.319237.3.579.2.5 93 1953 Unknown [id number] 2.16.840.1.539403.3.579.2.5 93 1953 Unknown [id number] 2.16.840.1.912372.3.579.2.5 93 1953 Unknown [id number] 2.16.840.1.192726.3.579.2.5 93 1953 Unknown [id number] 2.16.840.1.725629.3.579.2.5 93 1953 Unknown [id number] 2.16.840.1.094833.3.579.2.5 93 1953 Unknown [id number] 2.16.840.1.406706.3.579.2.5 93 1953 Unknown [id number] 2.16.840.1.451141.3.579.2.5 93 1953 Unknown [id number] 2.16.840.1.140799.3.579.2.5 93 1953 Unknown [id number] 2.16.840.1.797915.3.579.2.5 93 1953 Unknown [id number] 2.16.840.1.782304.3.579.2.5 93 1953 Unknown [id number] 2.16.840.1.986756.3.579.2.5 93 1953 Unknown [id number] 2.16.840.1.222064.3.579.2.5 93 1953 Unknown [id number] 2.16.840.1.714532.3.579.2.5 93 1953 Unknown [id number] 2.16.840.1.060100.3.579.2.7 27 1953 Unknown [id number] 2.16.840.1.587308.3.579.2.7 32 1953 Unknown [id number] 2.16.840.1.460729.3.579.2.1 96 1953 Unknown [id number] 2.16.840.1.307641.3.579.2.1 96 1953 Unknown [id number] 2.16.840.1.676639.3.579.2.1 96 1953 Unknown [id number] 2.16.840.1.479640.3.579.2.1 96 1953 Unknown [id number] 2.16.840.1.336531.3.579.2.1 96 1953 Unknown [id number] 2.16.840.1.660907.3.579.2.1 96 Unknown [id number] Unknown [place] BC/BS [id number] Social History Date Type Detail Facility Start: 12-28-2018 End: 09-03-2020 Tobacco smoking status Never smoked tobacco (finding) [facility] Tobacco smoking status Never [facility] Start: 03-27-2023 Sex Assigned At Male [facility] Start: 12-28-2018 Tobacco use and exposure Smokeless tobacco non-user [facility] Start: 12-28-2018 End: 03-27-2023 Alcohol intake Ex-drinker (finding) [facility] Start: 1955 Sex Assigned At Not on file [facility] Start: 1955 Sex Assigned At Male [facility] Start: 03-27-2023 History of Social function [facility] Within the last year , have you been afraid of your partner or ex-partner? No [facility] Do you belong to any clubs or organizations such as nondenominational groups, unions, fraternal or athletic groups, or [...] got money to buy more. Never true [facility] Start: 03-27-2023 Education 17 [facility] Start: 08-09-2018 End: 05-26-2024 Sex Male (finding) [facility] Start: 03-27-2023 Details of drug misuse behavior Has never misused drugs (situation) [facility] Functional Status Date Assessment Result Facility 01-23-2024 Functional Status N/A [facility] 01-24-2023 Functional Status N/A [facility] 10-06-2022 Functional Status N/A [facility] 07-29-2022 Functional Status N/A [facility] Clinical Notes 11-24-2021 to 02-12-2025 Note Date & Type Note Facility 02-12-2025 Evaluation note Diagnosis Onset Date Resolution A-fib acute February 12 9:16am Bilateral primary osteoarthritis of hip acute February 9:16am Bilateral primary osteoarthritis of knee acute February 9:16am Lumbar pain acute February 12, 025 9:16am Medicare annual wellness visit, subsequent acute February 12 9:16am JAVED on CPAP acute February 12, 025 9:16am Degenerative joint 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 10:28am [facility] Work Phone: 1(552) 265-394610-30-2024 Evaluation note* Diagnosis Onset Date Resolution Status Admit Date Bronchitis acute May 08, 2024 9:18am Cough noneactive May 26, 2024 9:07am [facility] Work Phone: 1(783) 809-758410-07-2024 History of Present illness Narrative* Prasanth Perez [...] his last visit, he had lexiscan at [facility] on 09/2016 that showe no reversible findings, [...] in 1 year Prior to your visit, [employer] shared information with you about the risks [...] of patient Time-Based Billing Justifications: Charting in [facility] Patient visit (including performing a medically [...] 180 Tablet 3 Sodium Sulfate-Mag Sulfate-KCl (Sutab) 7543-118-794 MG TABS Take by mouth. AMLODIPINE BESYLATE [...] declined Stress: No Stress Concern Present (03/27/2023) [employer] [place] [facility] [employer] - Occupational Stress Questionnaire Feeling of Stress : Not at all Social Connections: Moderately Integrated (03/27/2023) Social Connection and Isolation Panel [NHANES] Frequency of Communication with Friends and Family: More than three times a week Frequency of Social Gatherings with Friends and Family: Twice a week Attends Roman [employer] Services: Never Active Member of Clubs or Organizations: Yes Attends Club or Organization Meetings: More than 4 times per year Marital Status: Intimate Partner Violence: Not At Risk (03/27/2023) Humiliation, Afraid, Rape, and Kick questionnaire Fear of Current or Ex-Partner: No Emotionally Abused: No Physically Abused: No Sexually Abused: No No family history on file. documented in this [id number] Hospital Discharge instructions Patient Education 01/23/2024 14:28:31 [...] Follow these instructions at home: Medicines Take zlcc-eow-bjagxeo and prescription medicines only as told by [...] provider. Document Revised: 09/22/2021 Document Reviewed: 09/22/2021 [employer] Patient Education 2022 [email or web address]. Follow Up Care 01/24/2023 10:37:20 With:TIANA GARCIA, CATHIE Ruano, URL Address: [address] [place] [address] [phone] When: only if needed [facility] 07-16-2024 NotePatient Education Urology Erectile Dysfunction Erectile [...] these instructions at home: Medicines ? Take ejgo-duv-nccslog and prescription medicines only as told by [...] nicotine or tobacco. These (more content not included)...[facility]01-04-2024 Evaluation note* Encounter Date Diagnosis Assessment [...] Essential hypertension (ICD-10 - I10) as above [employer] Other 09-20-2023 History of Present illness Narrative* [...] male with PMH of atrial fibrillation, HTN, alf anticoagulation, JAVED,chronic back pain, arthritis, who was seen today for pAF. Last televisit- 08/2020- He had to ER on 05/22/20 when he had pain with a blood clot- needing to stop his coumadin for a short period of time. He felt like he has been in sinus rhythm on his self checks. He was on Dbsqvmxfqz639 mg BID and Lopressor 100 mg BID. Since patient last saw me, he had TURP done- no further hematuria or urgency. PSA has been stable. Colonoscopy was normal per patient. No melena etc. ALLERGIES: Allergies Allergen Reactions Other (Review Comments!) MEDICATIONS: Current Outpatient Medications Medication Sig Dispense Refill Sodium Sulfate-Mag Sulfate-KCl (Sutab) [id number] MG TABS Take by mouth. AMLODIPINE BESYLATE [...] refused Stress: No Stress Concern Present (03/27/2023) [employer] [place] [employer]ational Health - Occupational Stress Questionnaire Feeling of Stress : Not at all Social Connections: Moderately Integrated (03/27/2023) Social Connection and Isolation Panel [NHANES] Frequency of Communication with Friends and Family: More than three times a week Frequency of Social Gatherings with Friends and Family: Twice a week Attends Roman [employer] Services: Never Active Member of Clubs or [...] Assessment/Plan: Persistent atrial fibrillation (HCC) (Primary Diagnosis) [865726] Anticoagulated [470473] JAVED on CPAP [254360] Patient doing well overall as far as [...] Electrophysiology 03/29/23 4:52 PM documented in this [id number] Telephone encounter Note* Telephone Encounter - Crystal Putnam RN - 02/17/2023 9:17 AM EDT LVM for pt that new generic Rx (Toprol XL) was sent over to [employer] Michelle. [id number] Miscellaneous Notes* Telephone Encounter - Crystal Putnam RN - 02/17/2023 9:17 AM EDT LVM for pt that new generic Rx (Toprol XL) was sent [facility] to [facility]. * Telephone Encounter - Heather Renteria - 02/16/2023 9:38 AM EDT [facility] is calling wanting to know if they can dispense Metoprolol SUCC- ER 100 mg instead ofthe Toprol XL 100 mg, pt's insurance will only cover the generic brand. Please contact [phone] use Re:[phone]. Thank you documented in this [id number] Telephone encounter Note* Telephone Encounter - Aundrea Davis PharmD - 02/16/2023 3:00 PM EDT Patient called stating the original prescription that was sent had a KP for Toprol XL 100mg which is not covered. Please send over generic Metoprolol ER Succinate 100mg. Thank you! [id number] Miscellaneous Notes* Telephone Encounter - Aundrea Davis PharmD - 02/16/2023 3:00 PM EDT Patient called stating the original prescription that was sent had a KP for Toprol XL 100mg which is not covered. Please send over generic Metoprolol ER Succinate 100mg. Thank you! documented in this [id number] Telephone encounter Note* Telephone Encounter - Dexter October - 02/16/2023 9:38 AM EDT [facility] calling wanting to know if they can dispense Metoprolol SUCC- ER 100 mg instead ofthe Toprol XL 100 mg, pt's insurance will only cover the generic brand. Please contact [employer] [phone] use Re:[phone]. Thank you [employer] Work Phone: 1(937) 333-414107-18-2023 Hospital Discharge instructions Patient Education 01/24/2023 10:34:12 [...] Follow these instructions at home: Medicines Take ogzm-sdo-abjuijy and prescription medicines only as told by [...] provider. Document Revised: 09/22/2021 Document Reviewed: 09/22/2021 [employer] Patient Education 2022 [email or web address]. Follow Up Care 10/27/2021 12:15:55 With:TIANA GARCIA, CATHIE Ruano, URL Address: [address] [facility] [place] [address] When:Within 1 Year(s) [facility] 04-04-2023 Evaluation note* Encounter Date Diagnosis [...] I48.91) stable. 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 simplify[facility] Other 03-30-2023 Evaluation + Plan noteExtracted from: Title:KRISSY post op Author:Daljit Gooden MD Date:10/06/22 Plan Transfer/Discharge: Transfer/Discharge Discharge when meets criteria ( To home ). Extracted from: Title:KRISSY GA Author:Daljit Gooden MD Date:10/06/22 Plan Citizen Of [place] Society of Anesthesiologists (ASA) physical status classification: Class III. Anesthetic Preoperative Plan: Anesthesia General. Future Appointments Appointment Date:01/25/2023 10:00:00 AM Scheduled Provider:Erica Chua MD Location:[facility] Appointment Type:URO Office Visit [facility]03-30-2023 Hospital Discharge instructions Patient Education 10/06/2022 10:00:07 Colonoscopy, Care After Surgery Salam (CUSTOM) Colonoscopy Care After Surgery Please read the instructions outlined below and refer to this sheet in the next few weeks. These discharge instructions provide you with general information on caring for [facility] Your doctor may also give you specific [...] 03/22/2005 Document Revised: 10/11/2018 Document Reviewed: 10/11/2018 [employer] Patient Education 2020 [email or web address]. 10/06/2022 10:00:07 Hemorrhoids, Xvik-qw-Zdbz Hemorrhoids Hemorrhoids are swollen veins that may [...] 3 times a day. General instructions Take akmz-jkk-nryiiht and prescription medicines only as told by [...] 04/04/2009 Document Revised: 07/04/2019 Document Reviewed: 11/15/2018 [employer] Patient Education 2020 [employer] Follow Up Care 07/29/2022 15:02:48 With:Oxana IBARRA Address: [facility] [address] [place] [address] Business (1) When: Unknown Comments:Call for any problems. [facility]01-20-2023 Hospital Discharge instructions Patient Education 07/29/2022 13:54:12 [...] including vitamins, herbs, eye drops, creams, and gtik-tvx-jeqnali medicines. Any problems you or family members [...] 06/23/2001 Document Revised: 04/18/2018 Document Reviewed: 09/06/2016 [employer] Patient Education [employer]. Follow Up Care 07/05/2022 09:47:30 With:Elicia Mcmillan CNP Address: When:1 to 2 weeks Comments:Following colonoscopy. [facility] 01-17-2023 Evaluation note* Encounter [...] way. Continue follow-up with cardiology as scheduled. simplify[facility] Other 01-11-2023 NoteCONSULTATION CONSULTATION DATE: 07/20/2022 HISTORY [...] in three months' time unless otherwise indicated.[facility] 07-20-2022 NoteCONSULTATION PROCEDURE DATE: 07/20/2022 PREOPERATIVE [...] fan-like pattern. 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 He states that such activity has [...] for re-evaluation. Patient agrees to this plan.[facility] [id number] NoteCONSULTATION CONSULTATION DATE: 03/03/2022 This is a 66-kgie-srcocksqx returning to clinic for a 3-month follow-up. [...] be followed up in the office following.[facility] [id number] Telephone encounter Note* Telephone Encounter - Erica Beckett - 03/01/2022 11:40 AM EDT Patient has not been seen by this specialist in more than 1 year. Please contact patient to schedule office visit. Thank you [id number] Miscellaneous Notes* Telephone Encounter - Erica Beckett - 03/01/2022 11:40 AM EDT Patient has not been seen by this specialist in more than 1 year. Please contact patient to schedule office visit. Thank you documented in this [id number] Telephone encounter Note* Telephone Encounter - Irina Nguyen - 01/18/2022 7:23 AM EDT Last visit with Cardiology (Emperatriz Carnes) on 09/03/2020 Requested Prescriptions Pending Prescriptions Disp Refills metoprolol (TOPROL-XL) 100 mg XL tablet [Pharmacy Med Name: METOPROLOL SUCCINATE ER TABS 100MG] 90 Tablet 3 Sig: TAKE 1 TABLET DAILY No PCP on file No PCP on file [id number] Miscellaneous Notes* Telephone Encounter - Irina Nguyen - 01/18/2022 7:23 AM EDT Last visit with Cardiology (Emperatriz Carnes) on 09/03/2020 Requested Prescriptions Pending Prescriptions Disp Refills metoprolol (TOPROL-XL) 100 mg XL tablet [Pharmacy Med Name: METOPROLOL SUCCINATE ER TABS 100MG] 90 Tablet 3 Sig: TAKE 1 TABLET DAILY No PCP on file No PCP on file documented in this [id number] Telephone encounter Note* Telephone Encounter - Anirudh Gonzalez RPh - 11/29/2021 3:11 PM EDT Pt called back, will talk to his [facility] to get refill [facility] Work Phone: 1(225) 905-692705-23-2022 Miscellaneous Notes* Telephone Encounter - Anirudh Gonzalez RPh - 11/29/2021 3:11 PM EDT Pt called back, will talk to his [facility] to get refill * Telephone Encounter - Asia Laguna RN - 11/29/2021 2:52 PM EDT Left message for pt to return call to [facility] at [phone] 2nd attempt * Telephone Encounter - Cathie Whitley RN - 11/26/2021 2:46 PM EDT Left message for patient to please call back. 1st attempt * Telephone Encounter - Anirudh Gonzalez RPh - 11/25/2021 9:37 AM EDT [facility] Staff, Please contact pt re the following issue. Per 09/03/21 note pt goes to [facility] , they should refill, will deny Thanks! * Telephone Encounter - Tamiko Rodriguez PharmD - 11/24/2021 4:09 PM EDT Requested Prescriptions Pending Prescriptions Disp Refills warfarin (COUMADIN) 5 MG tablet 90 Tablet 0 Sig: Take 1 Tablet by mouth daily. No PCP on file No PCP on file documented in this [id number] Telephone encounter Note* Telephone Encounter - Asia Laguna RN - 11/29/2021 2:52 PM EDT Left message for pt to return call to [facility] at [phone] 2nd attempt [facility] Work Phone: 1(128) 401-118605-20-2022 Telephone encounter Note* Telephone Encounter - Cathie Whitley RN - 11/26/2021 2:46 PM EDT Left message for patient to please call back. 1st attempt [id number] Telephone encounter Note* Telephone Encounter - Anirudh Gonzalez RPh - 11/25/2021 9:37 AM EDT [facility] Staff, Please contact pt re the following issue. Per 09/03/21 note pt goes to [facility] , they should refill, will deny Thanks! [id number] Telephone encounter Note* Telephone Encounter - Tamiko Rodriguez PharmD - 11/24/2021 4:09 PM EDT Requested Prescriptions Pending Prescriptions Disp Refills warfarin (COUMADIN) 5 MG tablet 90 Tablet 0 Sig: Take 1 Tablet by mouth daily. No PCP on file No PCP on file [employer] Work Phone: 1(610) 855-157805-18-2022 Miscellaneous Notes* Telephone Encounter - Tamiko Rodriguez [...] [Pharmacy Med Name: POTASSIUM CHLORIDE ER (DISP) [id number]] 180 Tablet 3 Sig: TAKE 1 TABLET TWICE A DAY Refused Prescriptions Disp Refills warfarin (COUMADIN) 5 MG tablet [Pharmacy Med Name: WARFARIN TABS 5MG] 90 Tablet 3 Sig: TAKE 1 TABLET DAILY (INR: 2.33) No PCP on file No PCP on file documented in this encounterMetroHealthEvaluation + Plan note Future Appointments Appointment Date:11/01/2022 09:45:00 AM Scheduled Provider:Kun Cole MD, Min Villagomez Location:[facility] Appointment Type:URO Office Visit Diagnostic Tests Pending * PSA Total 10/27/21 [facility] evaluation + Plan note Future Appointments Appointment Date:10/06/2022 09:00:00 AM Scheduled Provider: Location:[facility] Appointment Type:Surgery FT Appointment Date:11/01/2022 09:45:00 AM Scheduled Provider:Min Tristan Jr., MD Location:[facility] Appointment Type:URO Office Visit [facility] Evaluation + Plan note Future Appointments Appointment Date:01/30/2024 10:00:00 AM Scheduled Provider:CATHIE HERNANDEZ PA-C Location:[facility] Appointment Type:URO Office Visit [facility] evaluation + Plan note Future Appointments Appointment Date:01/30/2024 10:00:00 AM Scheduled Provider:CATHIE HERNANDEZ PA-C Location:[facility] Appointment Type:URO Office Visit Diagnostic Tests Pending * [facility] Diagnosis PAF (paroxysmal atrial fibrillation) (HCC) [...] [facility] Other Evaluation note* Diagnosis Persistent atrial fibrillation [...] in this [facility] Work Phone: Evaluation note* Diagnosis PAF (paroxysmal [...] Diagnosis Onset Date Resolution Status Bronchitis acute [facility] Work Phone: Evaluation note* Diagnosis Onset Date Resolution Status Admit Date A-fib acute February 12 9:16am Bilateral primary osteoarthr itis of hip acute February 12, 2025 9:16am Bilateral primary osteoarthr itis of knee acute February 12, 2025 9:16am Lumbar pain acute February 12, 025 9:16am Medicare annual wellness vis it, subsequent acute [place] 6th, 2025 9:16am JAVED on CPAP acute February 12 9:16am [facility] Work Phone: Evaluation note* Diagnosis PAF [...] Hospitalization History No Hospitalization histo ry information simplifyMD Other Hospital course Narrative No data available for this section [facility] Hospital Discharge instructions No data available for this section [facility] Hospital Discharge instructionsAmbulatory Orders* Referral to Orthopedic Surgery Location: None Selected [facility] Work Phone: Progress note No data available for this section [facility] Summary Purpose Family History No Family History Records Found Relationship Condition Age at Onset Recorded Date/T gerhard father Unknown Malignant neoplasm Unknown Not Specified Unknown Relationship Condition Age at Onset Recorded Date/T gerhard father Unknown Malignant neoplasm Unknown mother Unknown Advance Directives No Advanced Directives Records [...] section and content) DATE CREATED AUTHOR 01/02/2018 [facility] DATE CREATED AUTHOR AUTHOR'S ORGANIZ ATION 04/24/2018 [employer] DATE CREATED AUTHOR AUTHOR'S ORGANIZ ATION 05/06/2018 [facility] DATE CREATED AUTHOR AUTHOR'S ORGANIZ ATION 12/16/2022 [facility] DATE CREATED AUTHOR AUTHOR'S ORGANIZ ATION [facility]20[facility] DATE CREATED AUTHOR AUTHOR'S ORGANIZ ATION 04/15/2024 [facility] DATE CREATED AUTHOR AUTHOR'S ORGANIZ ATION 05/28/2024 [facility] DATE CREATED AUTHOR AUTHOR'S ORGANIZ ATION 04/19/2025 [facility] Reason for Visit (unrecogniz ed section and [...] Care Teams (unrecognized sec tion and content) [employer] Engineer Relationship Specialty Start Date End Date Emperatriz Carnes DO [address] [place] [address] Physician Electrophysiology 04/14/20 [employer] Engineer Relationship Specialty Start Date End Date Deyvi EmperatrizDO quique [address] [place] [address] Physician Electrophysiology 04/14/20 Fuel Cell Engineer Relationship Specialty Start Date End Date Deyvi EmperatrizDO quique [address] [place] [address] Physician Electrophysiology 04/14/20 Fuel Cell Engineer Relationship Specialty Start Date End Date RodolfoSa betsyDO quique [address] [place] [address] Physician Electrophysiology 04/14/20 Fuel Cell Engineer Relationship Specialty Start Date End Date Rodolfobetsy EmperatrizDO quique [address] [place] [address] [place] [address] Physician Electrophysiology 04/14/20 Fuel Cell Engineer Relationship Specialty Start Date End Date Emperatriz Carnes, DO [address] [place] [address] Physician Electrophysiology 04/14/20 Fuel Cell Engineer Relationship Specialty Start Date End Date Emperatriz Carnes, DO [address] [place] [address] Physician Electrophysiology 04/14/20 Fuel Cell Engineer Relationship Specialty Start Date End Date Emperatriz Carnes, DO [address] [place] [address] Physician Electrophysiology 04/14/20 Fuel Cell Engineer Relationship Specialty Start Date End Date Emperatriz Carnes, DO [address] [place] [address] Physician Electrophysiology 04/14/20 Team Status: Active Member [...] October 19, 2023 End: October 19, 2023 Fuel Cell Engineer Relationship Specialty Start Date End Date Emperatriz Carnes, DO [address] [place] [address] Physician Electrophysiology 04/14/20 Fuel Cell Engineer Relationship Specialty Start Date End Date Emperatriz Carnes, DO [address] [place] [address] Physician Electrophysiology 04/14/20 Team Status: Active Member [...] May 29, 2024 End: May 29, 2024 Fuel Cell Engineer Relationship Specialty Start Date End Date Emperatriz Carnes DO [address] [place] [id number] Physician Electrophysiology 04/14/20 Prasanth Perez MD [address] [place] [address] Physician Cardiac Electrophysiology 05/11/24 Fuel Cell Engineer Relationship Specialty Start Date End Date Emperatriz Carnes DO [address] [place] [address] Physician Electrophysiology 04/14/20 Prasanth Perez MD [address] [place] [address] Physician Cardiac Electrophysiology 05/11/24 Team Status: Active [...] March 03, 2025 End: March 03, 2025 Fuel Cell Engineer Relationship Specialty Start Date End Date Emperatriz Carnes DO [address] [place] [place] [address] Physician Electrophysiology 04/14/20 Prasanth Perez MD [address] [place] [place] [address] Physician Cardiac Electrophysiology 05/11/24 Goals (unrecognized section [...] BE BASED ON THE PRIMARY CLINICAL RECORDS. [facility] [employer] [facility]. provides no warranty or guarantee of the accuracy or completeness of information in this document.
== END 2025-04-23 09:02 | disposition home or self-care (01) ==
LOC: MRI 09:01
PROVIDERS: PCP Family Medicine; Visit Provider Nurse Practitioner
DX: M48.062 Spinal stenosis, lumbar region with neurogenic claudication (principal); M54.16 Radiculopathy, lumbar region
CPT/HCPCS: 72148

== ENCOUNTER 2025-04-28 07:52 | Day surgery (SDC) | payer MEDICARE, SELFPAY ==
--- OUTSIDE RECORDS SUMMARY | 2025-04-28 07:55 | XMS_ITS | CCD ---
Author Organization [facility] Care Team Providers Care Stage Set Designer Name Role Phone PHYSICIAN, DEFAULT Unavailable Unavailable PHYSICIAN, DEFAULT Unavailable Unavailable DONALD LIZARRAGA Unavailable Unavailable PHYSICIAN, DEFAULT Unavailable Unavailable PHYSICIAN, DEFAULT Unavailable Unavailable DONALD LIZARRAGA Unavailable Unavailable Devin Greer Unavailable Unavailable Donald Lizarraga Unavailable Unavaila ble DONALD LIZARRAGA Primary Care Physician [phone] Karbetsy DO, Emperatriz Unavailable Karim DO, Emperatriz [...] LIZARRAGA, DR DONALD Ruano Primary Care Unavailable CUVEAS ., MARIELA Consulting Unavailable VILLA ., DR [...] Admitting Unavailable HALKER ., JEET Attending Unavailable KENOSHA, DR UNA Sofia Consulting Unavailable LIZARRAGA, DR [...] UnavailMariela Castillo Admitting UnavailPrasanth Singletary MD Unavailable Donald Lizarraga MD Primary Care Provider Merlyn Casillas CMA Attending Provider Unavaila ble Jesus Alberto JACKSON, Andri Attending Provider Donald Lizarraga MD Attending Provider [phone] Donald Lizarraga MD Primary Care Provider Peter Auguste DO Attending Provider Jesus Alberto JACKSON, Andrius Kimberlynytautfeliz Attending Unavailable Giedsee JACKSON, Andrius Vytautfeliz Attending Unavailable Gibryant JACKSON, Andrius Vytautas Attending Unavailable Giedraitis , Andrius Vytautas Attending Unavailable Giedraitis , Andrius Vytautas Attending Unavailable Gieditis , Andrius Vytautfeliz Attending Unavailable Allergies Allergy Classification Reported Allergen(s) Allergy Type Date of Onset Reaction(s) Facility (18 sources) Other (Review Comments!); 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: [OTHER (REVIEW COMMENTS!)] Propensity to adverse reactions to drug 12-29-19 19 [facility] (13 sources) Decongestant Drug allergy 10-18-19 24 Unknown, [facility] (10 sources) DECONGESTANTS Propensity to adverse reactions 05-03-20 13 Unknown, Hives [facility] Comment on above: Onset Date: 05/03/20 13 (3 sources) Allergies Reconciled Propensity to adverse reactions Unknown [facility] Other (3 sources) patient allergy list reviewed by nurse or physicia Propensity to adverse reactions 11-23-19 Comment:Done [facility] Other (1 source) No Known Medication Allergies; 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: [No Known Medication Allergies] Propensity to adverse reactions (disorder) [facility] Repository Medications Current Medications Medication Drug [...] instructions per packaging and physician's handout, [facility]/pharmacy #[id number], 183.8, cm, 07/29/22 14:15:00 EST, Height/Length Dosing, [...] mouth. 01/24/2023 Active Sodium Sulfate-Mag Sulfate-KCl (Sutab) 3873-366-626 MG TABS (7 sources) Start: 07-29-2022 Sodium Sulfate -Mag Sulfate-KCl (Sutab) 7494-375-802 MG TABS Take by mouth. 07/29/2022 Active Start: 07-29-2022 Sodium Sulfate -Mag Sulfate-KCl (Sutab) 4914-899-307 MG TABS Take by mouth. 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; 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: [RESIDENTIAL CURRNT USE 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] Onset: 12-07-2022 Episodic Other [...] and Corynebacterium diphtheriae antigens (medicinal product); 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: [Uavjiczldq-eouagfm-h ertussis, combined [DTP] [DtaP]] Onset: 02-13-2014 Viral infection (1 source) COVID-19 Results Test Name Value Interpretation Reference Range Facility INR in Platelet poor plasma by Coagulation assayon 12-16-2024 INR Coag (PPP) [Relative time] 2.24 {INR} [facility] Comment on above: DESIRED INR:2.0-3.0 CONDITIONS NOT LISTED BELOW2.5-3.5 FOR PROSTHETIC HEART VALVE REPLACEMENT2.5-3.5 RECURRENT THROMBOSIS Prothrombin time (PT)on PT Coag (PPP) [Time] 21.9 s High 9.0-11.6 [facility] X-ray reportOrdered By: Luz Bryan on 05-26-2024 Study report [facility] [place] [address] XRay Report Signed Patient: Evangelist Ybarra MR#: [id number] : 1955 Acct:[id number] Age/Sex: 68 / M ADM Date: 4 Loc: XDUC Room: Type: [facility] Attending Dr: Mariela Mosley APRN Copies [...] Lupis Bryan M.D.05/26/2024 10:23 AM Dictation Location: [place] [address] Transcribed By: LIV 05/26/24 1023 Dictated By: Lupis Bryan MD 05/26/24 1022 Signed By: 05/26/24 [facility]3 [facility] Work Phone: XR chest 2V*on 05-26-2024 XR chest 2V* [facility] [place] [place] [address] XRay Report Signed Patient: Evangelist Ybarra MR#: [id number] : 1955 Acct:[id number] Age/Sex: 68 / M ADM Date: 05/26/24 Loc: XDUCLY Room: Type: [facility] Attending Dr: Mariela Mosley SUPERVISOR SEWING ROOM Copies to: Mariela Mosley APRN Ordering Provider: [...] Lupis Bryan M.D.05/26/2024 10:23 AM Dictation Location: [place] [address] Transcribed By: LIV 05/26/24 1023 Dictated By: Lupis Bryan MD 05/26/24 1022 Signed By: 05/26/24 1023 Normal [facility] Influenza virus A and B and SARS-CoV-2 (COVID-19) RNA panel - Respiratory system specon 05-08-2024 Influenza virus A and B RNA and SARS-CoV-2 (COVID-19) N gene panel ANNIE+probe (Resp) Influenza virus A and B and SARS-CoV-2 (COVID-19) RNA panel - Respiratory system spec [facility] Laboratory - Microbiology an d Antimicrobial susceptibilityon 05-08-2024 SARS-CoV-2 (COVID-19) RNA ANNIE+probe Ql (Unsp spec) Negative [facility] No Panel Informationon 05-08 POC Influenza B (ANNIE) Negative [facility] INR in Platelet poor plasma by Coagulation assayon 04-29-2024 INR Coag (PPP) [Relative time] 2.42 {INR} [facility] Comment on above: DESIRED INR:2.0-3.0 CONDITIONS NOT LISTED BELOW2.5-3.5 FOR PROSTHETIC HEART VALVE REPLACEMENT2.5-3.5 RECURRENT THROMBOSIS INR Coag (PPP) [Relative time] INR in Platelet poor plasma by Coagulation assay [facility] Comment on above: DESIRED INR:2.0-3.0 CONDITIONS NOT LISTED BELOW2.5-3.5 FOR PROSTHETIC HEART VALVE REPLACEMENT2.5-3.5 RECURRENT THROMBOSIS Prothrombin time (PT)on 04-10 PT Coag (PPP) [Time] 23.5 s High 9.0-11.6 [facility] PT Coag (PPP) [Time] Prothrombin time (PT) High 9.0-11.6 [facility] Progress Noteson 04-15-2024 Lead Inspector Authentication Interface Message Text EP video visit [...] his last visit, he had lexiscan at [facility] on 09/2016 that showe no reversible [...] in 1 year Prior to your visit, [facility] shared information with you about the [...] 180 Tablet 3 Sodium Sulfate-Mag Sulfate-KCl (Sutab) 8778-674-804 MG TABS Take by mouth. AMLODIPINE BESYLATE [...] declined Stress: No Stress Concern Present (03/27/2023) [employer] [employer] - Occupational Stress Questionnaire Feeling of Stress : Not at all Social Connections: Moderately Integrated (03/27/2023) Social Connection and Isolation Panel [NHANES] Frequency of Communicatio (more content not included)... Normal [facility] Ambulatory Visit Summaryon 0 01-23-2024 Ambulatory [...] URL When: Only if needed Where: [address] [place] [id number] Medications What How Much When Instructions Unchanged [...] ? Ne (more content not included)... Normal [facility] Provider Letteron 01-23-2024 Provider Letter Provider Letter DONALD LIZARRAGA, [facility] [place] [address] Re: EVANGELIST YBARRA Date of : [address] ELHAM JACKSON, DONALD YBARRA EVANGELIST Villafana was evaluated at [facility] 01/30/2024 10:00:00 As this patient has been stable, they will be released back to your care. We request that you continue to check PSA annually for prostate cancer screening Should the patient develop new symptoms, worsening condition, or abnormal imaging/labs in the future, do not hesitate to refer them back. Thanks! Provider Signature: Cathie Hernandez PA-C Physician Typing Secretary [facility] [address] [place] [address] Normal [facility] Office/Clinic Noteon 01-23-2024 Urology Office/Clinic Note Urology Office/Clinic Note Chief Complaint 1 year follow up with PSA HPI Staff 68 year old patient presents today for a 1 year follow up with PSA. No recent PSA on [facility], [facility], [facility], or [facility]. 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 Not [...] CATHIE HERNANDEZ PA-C, URL Only if needed [address] [place] [place] [address] [phone] Additional Instructions: Patient Education Erectile Dysfunction Documentation [...] - De (more content not included)... Normal [facility] Comment on above: Result Comment: Elec [...] AM) Normal Negative [facility] UA Auto SS [place].plasma/Lith ium.RBC (Bld) [Mass ratio] 0-3 /HPF Normal [...] [facility] UA Auto SS Urobilinogen Qn (U) 0.6903544 {Anne'U}/dL Normal 0.0 - 1.0 EU/dL [facility] [...] UNA SEARS Date: 2022-11-10 09:46 Normal [facility] CBC AUTO DIFFon 2022 BASO # 0.0 103/ul Normal 0.0-0.1 [facility] Comment on above: Performed By: #### C BC #### [facility] [address] [place] [address] Dr. Jason Pearson Basophils/100 WBC (Bld) 0.7 % Normal 0.2-2.0 [facility] Comment on above: Performed By: #### C BC #### [facility] [address] [place] [address] Dr. Jason Pearson EO # 0.2 103/ul Normal 0.0-0.7 [facility] Comment on above: Performed By: #### C BC #### [facility] [address] [place] [address] Dr. Jason Pearson Eosinophils/100 WBC (Bld) 3.7 % Normal 0.9-7.0 [facility] Comment on above: Performed By: #### C BC #### [facility] [address] [place] [address] Dr. Jason Pearson Erythrocyte distribution width (RBC) [Ratio] 14.0 % Normal 11.0-15.0 [facility] Comment on above: Performed By: #### C BC #### [facility] [address] [place] [address] Dr. Jason Pearson Hematocrit (Bld) [Volume fraction] 41.0 % Critically low 42.0-54.0 [facility] Comment on above: Performed By: #### C BC #### [facility] [address] [place] [address] Dr. Jason Pearson Hemoglobin (Bld) [Mass/Vol] 13.8 g/dL Critically low 14.0-18.0 [facility] Comment on above: Performed By: #### C BC #### [facility] [address] [place] [address] Dr. Jason Pearson IG # 0.01 10e3/ul Normal 0.00-0.03 [facility] Comment on above: Performed By: #### C BC #### [facility] [address] [place] [address] Dr. Jason Pearson IG % 0.2 % Normal 0.0-0.5 [facility] Comment on above: Performed By: #### C BC #### [facility] [address] [place] [address] Dr. Jason Pearson LYMPH # 1.3 103/ul Normal 1.2-3.8 [facility] Comment on above: Performed By: #### C BC #### [facility] [address] [place] [address] Dr. Jason Pearson Lymphocytes/100 WBC (Bld) 22.3 % Normal 20.5-60.0 [facility] Comment on above: Performed By: #### C BC #### [facility] [address] [place] [address] Dr. Jason Pearson MANUAL DIFF REQ NO Normal [facility] Comment on above: Performed By: #### C BC #### [facility] [address] [place] [address] Dr. Jason Pearson MCH (RBC) [Entitic mass] 32.6 pg Normal 25.9-34.0 [facility] Comment on above: Performed By: #### C BC #### [facility] [address] [place] [address] Dr. Jason Pearson MCHC (RBC) [Mass/Vol] 33.7 g/dL Normal 29.9-35.2 [facility] Comment on above: Performed By: #### C BC #### [facility] [id number] Jason Pearson MCV (RBC) [Entitic vol] 96.9 fL Critically high 80.0-94.0 [facility] Comment on above: Performed By: #### C BC #### [facility] [address] [place] [address] [address] Jason Pearson MONO # 0.6 103/ul Normal 0.3-0.8 [facility] Comment on above: Performed By: #### C BC #### [facility] [address] [place] [address] [address] Jason Pearson Monocytes/100 WBC (Bld) 10.5 % Normal 1.7-12.0 [facility] Comment on above: Performed By: #### C BC #### [facility] [address] [place] [address] [address] Jason Pearson NEUT # 3.7 103/ul Normal 1.4-6.5 [facility] Comment on above: Performed By: #### C BC #### [facility] [address] [place] [address] [address] Jason Pearson Neutrophils/100 WBC (Bld) 62.6 % Normal 43.0-75.0 [facility] Comment on above: Performed By: #### C BC #### [facility] [address] [place] [id number] Jason Pearson Platelet mean volume (Bld) [Entitic vol] 9.9 fL Normal 9.5-13.5 [facility] Comment on above: Performed By: #### C BC #### [facility] [address] [place] [address] Dr. Jason Pearson PLT 181 103/ul Normal 150-450 [facility] Comment on above: Performed By: #### C BC #### [facility] [id number] Jason Pearson RBC 4.23 106/ul Critically low 4.70-6.10 [facility] Comment on above: Performed By: #### C BC #### [facility] [address] [place] [address] [address] Jason Pearson WBC 5.9 103/ul Normal 4.0-11.0 [facility] Comment on above: Performed By: #### C BC #### [facility] [address] [place], [place] [address] Dr. Jason Pearson LIPID PROFILEon 2022 CHOL-HDL RATIO NORM SEE BELOW Normal [facility] Comment on above: Result Comment: 3.3 - 4.4 LOW RISK 4.4 - 7.1 AVERAGE RISK 7.1 - 11.0 MODERATE RISK >11.0 HIGH RISK Performed By: #### C MP, LIPID ####[facility] [address] [place], [place] [address]XoDusty Pearson Cholesterol [Mass/Vol] 163 mg/dL Normal <=200 [facility] Comment on above: Performed By: #### C MP, LIPID ####[facility] [address] [place], [place] [address]IvDusty Pearson Cholesterol in HDL [Mass/Vol] 49 mg/dL Normal 40-60 [facility] Comment on above: Performed By: #### C MP, LIPID ####[facility] [address] [place], [place] [address]PmDusty Pearson Cholesterol in LDL [Mass/Vol] 74.6 mg/dL Normal [facility] Comment on above: Performed By: #### C MP, LIPID ####[facility] [address] [place], [place] [address]Ax. Jason Pearson Cholesterol.total/C holesterol in HDL [Mass ratio] 3.3 {ratio} Normal [facility] Comment on above: Performed By: #### C MP, LIPID ####[facility] [address] [place], [place] [address]Kp. Jason Pearson HDL NORMAL > or = 60 mg/dl - LO W CARDIOVASCULAR RISK <40 mg/dl - HIGH CARDIOVASCULAR RISK Normal [facility] Comment on above: Performed By: #### C MP, LIPID ####[facility] [address] [place], [place] [address]DbDusty Pearson LDL CALC NORMAL SEE BELOW Normal [facility] Comment on above: Result Comment: <100 mg/dl OPTIMAL 100 - 129 mg/dl NEAR OR ABOVE OPTIMAL 130 - 159 mg/dl BORDERLINE HIGH 160 - 189 mg/dl HIGH >190 mg/dl VERY HIGH Performed By: #### C MP, LIPID ####[facility] [address] [place] [id number] Pearson Triglyceride [Mass/Vol] 197 mg/dL Critically high <=150 [facility] Comment on above: Performed By: #### C MP, LIPID ####[facility] [address] [place] [address]Dr. Jason Pearson VLDL CALC 39.4 mg/dL Normal [facility] Comment on above: Performed By: #### C MP, LIPID ####[facility] [address] [place] [address]Dr. Jason Pearson MICROALBUMIN, RAND URon 03 mALB 1.3 mg/L Normal <=30.0 [facility] Comment on above: Performed By: #### M ALBR ####[facility] [address] [place] [address]DrDusty Pearson PROF 14(COMP METB)on 023 Albumin [Mass/Vol] 3.7 g/dL Normal 3.4-5.0 [facility] Comment on above: Performed By: #### C MP, LIPID #### [facility] [address] [place] [address] [address] Jason Pearson Albumin/Globulin [Mass ratio] 1.0 {ratio} Normal [facility] Comment on above: Performed By: #### C MP, LIPID #### [facility] [address] [place] [address] [address] Jason Pearson ALP [Catalytic activity/Vol] 56 U/L Normal 46-116 [facility] Comment on above: Performed By: #### C MP, LIPID #### [facility] [address] [place] [address] [address] Jason Pearson ALT [Catalytic activity/Vol] 43 U/L Normal 16-63 [facility] Comment on above: Performed By: #### C MP, LIPID #### [facility] [address] [place] [address] [address] Jason Pearson Anion gap [Moles/Vol] 11.2 mmol/L Normal [facility] Comment on above: Performed By: #### C MP, LIPID #### [facility] [address] [place] [address] [address] Jason Pearson AST [Catalytic activity/Vol] 24 U/L Normal 15-37 [facility] Comment on above: Performed By: #### C MP, LIPID #### [facility] [address] [place] [address] [address] Jason Pearson Bilirubin [Mass/Vol] 0.9 mg/dL Normal 0.2-1.0 [facility] Comment on above: Performed By: #### C MP, LIPID #### [facility] [address] [place] [address] [address] Jason Pearson Calcium [Mass/Vol] 9.6 mg/dL Normal 8.5-10.1 [facility] Comment on above: Performed By: #### C MP, LIPID #### [facility] [address] [place] [address] [address] Jason Pearson Chloride [Moles/Vol] 106 mmol/L Normal 98-107 [facility] Comment on above: Performed By: #### C MP, LIPID #### [facility] [address] [place] [address] [address] Jason Pearson CO2 [Moles/Vol] 30.1 mmol/L Normal 21.0-32.0 [facility] Comment on above: Performed By: #### C MP, LIPID #### [facility] [address] [place] [address] [address] Jason Pearson Creatinine [Mass/Vol] 1.00 mg/dL Normal 0.70-1.30 [facility] Comment on above: Performed By: #### C MP, LIPID #### [facility] [address] [place] [address] [address] Jason Pearson EGFR-AF CYMRO >60 Normal >=60 [facility] Comment on above: Performed By: #### C MP, LIPID #### [facility] [address] [place] [address] [address] Jason Pearson EGFR-NON AF CYMRO >60 Normal >=60 [facility] Comment on above: Performed By: #### C MP, LIPID #### [facility] [address] [place] [address] [address] Jason Pearson Globulin (S) [Mass/Vol] 3.6 g/dL Normal [facility] Comment on above: Performed By: #### C MP, LIPID #### [facility] [address] [place] [address] [address] Jason Pearson Glucose [Mass/Vol] 110 mg/dL Critically high 74-106 [facility] Comment on above: Performed By: #### C MP, LIPID #### [facility] [address] [place] [address] Dr. Jason Pearson Potassium [Moles/Vol] 4.3 mmol/L Normal 3.5-5.1 [facility] Comment on above: Performed By: #### C MP, LIPID #### [facility] [address] [place] [address] Dr. Jason Pearson Protein [Mass/Vol] 7.3 g/dL Normal 6.4-8.2 [facility] Comment on above: Performed By: #### C MP, LIPID #### [facility] [address] [place] [address] Dr. Jason Pearson Sodium [Moles/Vol] 143 mmol/L Normal 136-145 [facility] Comment on above: Performed By: #### C MP, LIPID #### [facility] [address] [place] [address] Dr. Jason Pearson Urea nitrogen [Mass/Vol] 15.0 mg/dL Normal 7.0-18.0 [facility] Comment on above: Performed By: #### C MP, LIPID #### [facility] [address] [place] [address] Dr. Jason Pearson Urea nitrogen/Creatinine [Mass ratio] 15.0 mg/mg Normal [facility] Comment on above: Performed By: #### C MP, LIPID #### [facility] [address] [place] [address] [address] Jason Pearson PROTIMEon 06-28-2022 INR Coag (PPP) [Relative time] 1.11 {INR} Normal [facility] Comment on above: Performed By: #### P T ####[facility] [address] [place] [address]Dr. Jason Pearson INR GUIDELINES SEE BELOW Normal [facility] Comment on above: Result Comment: KOFI RED INR: 2.0 - 3.0 CONDITIONS NOT LISTED BELOW 2.5 - 3.5 FOR PROSTHETIC HEART VALVE REPLACEMENT 2.5 - 3.5 RECURRENT THROMBOSIS Performed By: #### P T ####[facility] [address] [place] [address]Dr. Jason Pearson PT Coag (PPP) [Time] 11.9 s Critically high 9.0-11.6 [facility] Comment on above: Performed By: #### P T ####[facility] [address] [place], [place] [address]Dr. Jason Pearson PROTIMEon 03-22-2022 INR Coag (PPP) [Relative time] 1.32 {INR} Normal [facility] Comment on above: Performed By: #### P T #### [facility] [address] [place] [address] Dr. Jason Pearson INR GUIDELINES SEE BELOW Normal [facility] Comment on above: Result Comment: KOFI RED INR: 2.0 - 3.0 CONDITIONS NOT LISTED BELOW 2.5 - 3.5 FOR PROSTHETIC HEART VALVE REPLACEMENT 2.5 - 3.5 RECURRENT THROMBOSIS Performed By: #### P T #### [facility] [address] [place] [address] Dr. Jason Pearson PT Coag (PPP) [Time] 14.0 s Critically high 9.0-11.6 [facility] Comment on above: Performed By: #### P T #### [facility] [address] [place] [address] Dr. Jason Pearson PROTIMEon 02-07-2022 INR Coag (PPP) [Relative time] 1.08 {INR} Normal [facility] Comment on above: Performed By: #### P T #### [facility] [address] [place] [address] [address] Jason Pearson INR GUIDELINES SEE BELOW Normal [facility] Comment on above: Result Comment: KOFI RED INR: 2.0 - 3.0 CONDITIONS NOT LISTED BELOW 2.5 - 3.5 FOR PROSTHETIC HEART VALVE REPLACEMENT 2.5 - 3.5 RECURRENT THROMBOSIS Performed By: #### P T #### [facility] [address] [place] [address] [address] Jason Pearson PT Coag (PPP) [Time] 11.6 s Normal 9.0-11.6 [facility] Comment on above: Performed By: #### P T #### [facility] [address] [place] [address] [address] Jason Pearson XR HIP RT INJon [...] RUPERT MOON Date: 2022-02-07 11:09 Normal [facility] Initial Visit (Gastroenterol ogy)on 03-28-2018 Initial Visit [...] from the patient and documented on the [facility] health history questionnaire. Pertinent positives and [...] MG Oral Tablet; TAKE 1 TABLET DAILY;Therapy: (Recorded:[id number]) to Recorded Dispense: 0 Days ; #: Sufficient Tablet; Refill: 0; KP = N; Record; Last Updated By: Toyin Angeles; 03/28/2018 9:14:26 AM Flecainide Acetate 100 MG Oral Tablet; TAKE 1 TABLET EVERY 12 HOURS DAILY;Therapy: (Recorded:[id number]) to Recorded Dispense: 0 Days ; #: Sufficient Tablet; Refill: 0; KP = N; Record; Last Updated By: Toyin Angeles; 03/28/2018 9:14:26 AM HydroCHLOROthiazide 25 MG Oral Tablet; TAKE 1 TABLET DAILY;Therapy: (Recorded:[id number]) to Recorded Dispense: 0 Days ; #: Sufficient Tablet; Refill: 0; KP = N; Record; Last Updated By: Toyin Angeles; 03/28/2018 9:14:26 AM Imodium A-D CAPS;Therapy: (Recorded:[id number]) to Recorded Dispense: 0 Days ; #: Sufficient CAPS; Refill: 0; KP = N; Record; Last Updated By: Toyin Angeles; 03/28/2018 9:14:26 AM Klor-Con M20 20 MEQ Oral Tablet Extended Release; TAKE 2 TABLETS TWICE DAILY;Therapy: (Recorded:[id number]) to Recorded Dispense: 0 Days ; #: Sufficient Tablet Extended Release; Refill: 0; KP = N; Record; Last Updated By: Toyin Angeles; 03/28/2018 9:14:26 AM Lisinopril 40 MG Oral Tablet; TAKE 1 TABLET DAILY;Therapy: (Recorded:[id number]) to Recorded Dispense: 0 Days ; #: Sufficient Tablet; Refill: 0; KP = N; Record; Last Updated By: Toyin Angeles; 03/28/2018 9:14:26 AM Loratadine 10 MG Oral Tablet; TAKE 1 TABLET DAILY;Therapy: (Recorded:[id number]) to Recorded Dispense: 0 Days ; #: Sufficient Tablet; Refill: 0; KP = N; Record; Last Updated By: Toyin Angeles; 03/28/2018 9:14:26 AM Metoprolol Tartrate 100 MG Oral Tablet; TAKE 1 TABLET DAILY;Therapy: (Recorded:[id number]) to Recorded Dispense: 0 Days ; #: Sufficient Tablet; Refill: 0; KP = N; Record; Last Updated By: Toyin Angeles; 03/28/2018 9:14:26 AM Multivitamins TABS;Therapy: (Recorded:[id number]) to Recorded Dispense: 0 Days ; #: Sufficient TABS; Refill: 0; KP = N; Record; Last Updated By: Toyin Angeles; 03/28/2018 9:14:26 AM Tamsulosin HCl - 0.4 MG Oral Capsule;Therapy: (Recorded:[id number]) to Recorded Dispense: 0 Days ; #: Sufficient Capsule; Refill: 0; KP = N; Record; Last Updated By: Toyin Angeles; 03/28/2018 9:14:26 AM Vitamin B-12 ER 1500 MCG Oral Tablet Extended Release;Therapy: (Recorded:[id number]) to Recorded Dispense: 0 Days ; #: Sufficient TBCR; Refill: 0; KP = N; Record; Last Updated By: Toyin Angeles; 03/28/2018 9:14:26 AM Vitamin D3 2000 UNIT Oral Tablet;Therapy: (Recorded:[id number]) to Recorded Dispense: 0 Days ; #: Sufficient Tablet; Refill: 0; KP = N; Record; Last Updated By: Toyin Angeles; 03/28/2018 9:14:26 AM Warfarin Sodium 5 MG Oral Tablet; TAKE 1 TABLET DAILY;Therapy: (Recorded:[id number]) to Recorded Dispense: 0 Days ; #: Sufficient Tablet; Refill: 0; KP = N; Record; Last Updated By: Toyin Angeles; 03/28/2018 9:14:26 AM Vitals Vital Signs Recorded: 28Mar2018 09:12AMHeart Wmcp15Ktfaurdkyes69Orgyvurd13 3Tcihprana64Tnlgmk8 ft 2 ydAjmysu438 lb 6 ozBMI Swcaoogebk79.52BSA Calculated2.67 Physical ExamConstitutional General appearance: In no [...] KP = N; Verified Transmission to [id number]; Last Updated By: Rafi Rhodes; 03/28/2018 9:44:38 [...] MG Oral Tablet; TAKE 1 TABLET DAILY;Therapy: (Recorded:17Atz5225) to RecordedCholestyramine Light 4 GM Oral Packet; MIX THE CONTENTS OF 1 POWDER PACKETWITH 2-6 OZ OF NONCARBONATED BEVERAGE AND SWALLOW ONCE DAILY;Therapy: 25Mga6448 to (Evaluate:48Vvh0401) Requested for: 08Ldw2665; LastRx:[id number] OrderedFlecainide Acetate 100 MG Oral Tablet; TAKE 1 TABLET EVERY 12 HOURS DAILY;Therapy: (Recorded:[id number]) to RecordedHydroCHLOROthiazide 25 MG Oral Tablet; TAKE 1 TABLET DAILY;Therapy: (Recorded:66Pkr1720) to RecordedImodium A-D CAPS (Loperamide HCl);Therapy: (Recorded:39Jyz8343) to RecordedKlor-Con M20 20 MEQ Oral Tablet Extended Release; TAKE 2 TABLETS TWICE DAILY;Therapy: (Recorded:24Ihz4853) to RecordedLisinopril 40 MG Oral Tablet; TAKE 1 TABLET DAILY;Therapy: (Recorded:70Bhl4645) to RecordedLoratadine 10 MG Oral Tablet; TAKE 1 TABLET DAILY;Therapy: (Recorded:52Jlc5262) to RecordedMetoprolol Tartrate 100 MG Oral Tablet; TAKE 1 TABLET DAILY;Therapy: (Recorded:[id number]) to RecordedMultivitamins TABS;Therapy: (Recorded:69Ioe1382) to RecordedTamsulosin HCl - 0.4 MG Oral Capsule;Therapy: (Recorded:22Rtr7751) to RecordedVitamin B-12 ER 1500 MCG Oral Tablet Extended Release;Therapy: (Recorded:34Tru8248) to RecordedVitamin D3 2000 UNIT Oral Tablet;Therapy: (Recorded:79Ays5480) to RecordedWarfarin Sodium 5 MG Oral Tablet; TAKE 1 TABLET DAILY;Therapy: (Recorded:99Yyd5813) to Recorded Signatures Electronically signed by : Devin Greer DO; Mar 28 2018 9:51AM EST (Author) Normal [facility] Vital Signs Date Time Vital Sign Value Performing Clinician Facility 03-03-2025 10:51-0400 Body height 187.96 cm Donald Lizarraga MD Work Phone: [facility] 03-03-2025 10:51-0400 Body mass index (BMI) [Ratio] 38.1 kg/m2 Donald Lizarraga MD Work Phone: [facility] 03-03-2025 10:51-0400 Body weight 134.7 kg Donald Lizarraga MD Work Phone: [facility] 02-12-2025 09:22-0400 Body height 187.96 cm Donald Lizarraga MD Work Phone: [facility] 02-12-2025 09:22-0400 Body mass index (BMI) [Ratio] 38.1 kg/m2 Donald Lizarraga MD Work Phone: [facility] 02-12-2025 09:22-0400 Body weight 134.71 kg Donald Lizarraga MD Work Phone: [facility] 02-12-2025 09:22-0400 Diastolic blood pressure 77 mm[Hg] Donald Lizarraga MD Work Phone: [facility] 02-12-2025 09:22-0400 Heart rate 61 /min Donald Lizarraga MD Work Phone: [facility] 02-12-2025 09:22-0400 Systolic blood pressure 128 mm[Hg] Donald Lizarraga MD Work Phone: [facility] 05-29-2024 09:52-0500 Body height 187.96 cm Donald Lizarraga MD Work Phone: [facility] 05-29-2024 09:52-0500 Body mass index (BMI) [Ratio] 38.4 kg/m2 Donald Lizarraga MD Work Phone: [facility] 05-29-2024 09:52-0500 Body temperature 98.5 [degF] Donald Lizarraga MD Work Phone: [facility] 05-29-2024 09:52-0500 Body weight 135.62 kg Donald Lizarraga MD Work Phone: [facility] 05-29-2024 09:52-0500 Diastolic blood pressure 81 mm[Hg] Donald Lizarraga MD Work Phone: [facility] 05-29-2024 09:52-0500 Heart rate 73 /min Donald Lizarraga MD Work Phone: [facility] 05-29-2024 09:52-0500 SaO2% (BldA) [Mass fraction] 98 % Donald Lizarraga MD Work Phone: [facility] 05-29-2024 09:52-0500 Systolic blood pressure 137 mm[Hg] Donald Lizarraga MD Work Phone: [facility] 05-26-2024 09:18-0500 Body height 187.96 cm Donald Lizarraga MD Work Phone: [facility] 05-26-2024 09:18-0500 Body mass index (BMI) [Ratio] 38.5 kg/m2 Donald Lizarraga MD Work Phone: [facility] 05-26-2024 09:18-0500 Body temperature 98.1 [degF] Donald Lizarraga MD Work Phone: [facility] 05-26-2024 09:18-0500 Body weight 136.13 kg Donald Lizarraga MD Work Phone: [facility] 05-26-2024 09:18-0500 Diastolic blood pressure 77 mm[Hg] Donald Lizarraga MD Work Phone: [facility] 05-26-2024 09:18-0500 Heart rate 73 /min Donald Lizarraga MD Work Phone: [facility] 05-26-2024 09:18-0500 Respiratory rate 18 /min Donald Lizarraga MD Work Phone: [facility] 05-26-2024 09:18-0500 SaO2% (BldA) [Mass fraction] 96 % Donald Lizarraga MD Work Phone: [facility] 05-26-2024 09:18-0500 Systolic blood pressure 127 mm[Hg] Donald Lizarraga MD Work Phone: [facility] 05-08-2024 09:24-0400 Body height 187.96 cm [facility] 05-08-2024 09:24-0400 Body mass index (BMI) [Ratio] 38.8 kg/m2 [facility] 05-08-2024 09:24-0400 Body temperature 98 [degF] [facility] 05-08-2024 09:24-0400 Body weight 137.15 kg [facility] 05-08-2024 09:24-0400 Diastolic blood pressure 73 mm[Hg] [facility] 05-08-2024 09:24-0400 Heart rate 70 /min [facility] 05-08-2024 09:24-0400 Respiratory rate 18 /min [facility] 05-08-2024 09:24-0400 SaO2% (BldA) [Mass fraction] 98 % [facility] 05-08-2024 09:24-0400 Systolic blood pressure 167 mm[Hg] [facility] 01-23-2024 14:11-0400 Blood Pressure Location CATHIEIV HERNANDEZ [facility] 01-23-2024 14:11-0400 Body temperature 97.88 [degF] CATHIE HERNANDEZ [facility] 01-23-2024 14:11-0400 Diastolic blood pressure 74 mm[Hg] CATHIE TIANA [facility] 01-23-2024 14:11-0400 Heart rate 67 /min CATHIE TIANA [facility] 01-23-2024 14:11-0400 Respiratory rate 16 /min CATHIE HERNANDEZ [facility] 01-23-2024 14:11-0400 Systolic blood pressure 138 mm[Hg] CATHIE HERNANDEZ [facility] 10-19-2023 10:19-0400 Body height 187.96 cm [facility] 10-19-2023 10:19-0400 Body mass index (BMI) [Ratio] 40.1 kg/m2 [facility] 10-19-2023 10:190400 Body weight 141.63 kg [facility] 10-19-2023 10:19-0400 Diastolic blood pressure 84 mm[Hg] [facility] 10-19-2023 10:19-0400 Heart rate 71 /min [facility] 10-19-2023 10:19-0400 SaO2% (BldA) [Mass fraction] 98 % [facility] 10-19-2023 10:19-0400 Systolic blood pressure 132 mm[Hg] [facility] 07-13-2023 15:30-0500 Body height 187.96 cm Donald Lizarraga Other [employer] [facility] [employer] Other 07-13-2023 15:30-0500 Body mass index (BMI) [Ratio] 40.18 kg/m2 Donald Lizarraga Other [employer] Other 07-13-2023 15:30-0500 Body weight 141.98 kg Donald Lizarraga Other [employer] Other 07-13-2023 15:30-0500 Diastolic blood pressure 86 mm[Hg] Donald Lizarraga Other [employer] Other 07-13-2023 15:30-0500 Systolic blood pressure 142 mm[Hg] Donald Lizarraga Other [employer] Other 01-24-2023 10:00-0400 Blood Pressure Location CATHIE TIANA [facility] 01-24-2023 10:00-0400 Diastolic blood pressure 80 mm[Hg] CATHIE TIANA [facility] 01-24-2023 10:00-0400 Heart rate 72 /min CATHIE TIANA [facility] 01-24-2023 10:00-0400 Respiratory rate 16 /min CATHIE TIANA [facility] 01-24-2023 10:00-0400 Systolic blood pressure 130 mm[Hg] CATHIE TIANA [facility] 10-06-2022 10:17-0400 Diastolic blood pressure 78 mm[Hg] Daigle SALAM [facility] 10-06-2022 10:17-0400 Heart rate 69 /min [facility]ig[facility] SAL[facility] 10-06-2022 10:17-0400 Respiratory rate 16 /min Daigle SAL[facility] 10-06-2022 10:17-0400 SaO2% (BldA) [Mass fraction] 99 % [facility]ig[facility] SAL[facility] 10-06-2022 10:17-0400 Systolic blood pressure 122 mm[Hg] [facility]igle SAL[facility] 10-06-2022 10:05-0400 Diastolic blood pressure 76 mm[Hg] Daigle SAL[facility] 10-06-2022 10:05-0400 Heart rate 67 /min Daigle SAL[facility] 10-06-2022 10:05-0400 Respiratory rate 18 /min Daigle SAL[facility] 10-06-2022 10:05-0400 SaO2% (BldA) [Mass fraction] 99 % [facility]ig[facility] SAL[facility] 10-06-2022 10:05-0400 Systolic blood pressure 135 mm[Hg] [facility]igle SAL[facility] 10-06-2022 10:00-0400 Diastolic blood pressure 70 mm[Hg] Daigle SAL[facility] 10-06-2022 10:00-0400 Heart rate 66 /min Daigle SAL[facility] 10-06-2022 10:00-0400 Systolic blood pressure 134 mm[Hg] [facility] SAL[facility] 10-06-2022 09:55-0400 Respiratory rate 16 /min Daig[facility] SAL[facility] 10-06-2022 09:52-0400 Body temperature 97.7 [degF] [facility] SAL[facility] 10-06-2022 09:40-0400 Respiratory rate 1 /min Daigle SAL[facility] 10-06-2022 08:21-0400 Blood Pressure Location Daigle SALAM [facility] 10-06-2022 08:21-0400 Body temperature 97.88 [degF] [facility]ig[facility] SAL[facility] 07-29-2022 14:15-0500 Diastolic blood pressure 88 mm[Hg] [facility] 07-29-2022 14:15-0500 Mean blood pressure 105 mm[Hg] Elicia Garciametz [facility] 07-29-2022 14:15-0500 Systolic blood pressure 138 mm[Hg] Elicia Garciametz [facility] 07-29-2022 14:11-0500 Blood Pressure Location Eliciagurwinder GarciaHipolito [facility] 07-29-2022 14:11-0500 Body temperature 97.88 [degF] Elicia Garciametz [facility] 07-29-2022 14:11-0500 Diastolic blood pressure 87 mm[Hg] Elicia Garciametz [facility] 07-29-2022 14:11-0500 Heart rate 77 /min Elicia Mcmillan [facility] 07-29-2022 14:11-0500 Systolic blood pressure 147 mm[Hg] Elicia Garciametz [facility] 07-26-2022 10:45-0500 Body height 187.96 cm Donald Lizarraga Other [employer] Other 07-26-2022 10:45-0500 Body mass index (BMI) [Ratio] 41.47 kg/m2 Donald Lizarraga Other [facility] Other 07-26-2022 10:45-0500 Body weight 146.51 kg Donald Lizarraga Other [employer] Other 07-26-2022 10:45-0500 Diastolic blood pressure 84 mm[Hg] Donald Lizarraga Other [employer] Other 07-26-2022 10:45-0500 SaO2% (BldA) [Mass fraction] 97 % Donald Lizarraga Other [employer] Other 07-26-2022 10:45-0500 Systolic blood pressure 142 mm[Hg] Donald Lizarraga Other [employer] Other 10-27-2021 12:02-0400 Blood Pressure Location CATHIE HERNANDEZ [facility] [employer] 10-27-2021 12:02-0400 Diastolic blood pressure 78 mm[Hg] [email or web address] 10-27-2021 12:02-0400 Heart rate 77 /min CATHIE HERNANDEZ [facility] [place] 10-27-2021 12:02-0400 Systolic blood pressure 141 mm[Hg] CATHIE HERNANDEZ [facility] Encounters Encounter Date Encounter Type Care Provider Facility Start: 04-14-2025 End: 04-14-2025 ambulatory Blessing Granda MD Facility:[facility] Start: 04-02-2025 End: 04-02-2025 Patient encounter status Prasanth Perez MD Work Phone: [facility] Start: 04-02-2025 End: 04-02-2025 Refill Prasanth Perez MD Work Phone: [facility] Comment on above: Refill Start: 03-24-2025 End: 03-24-2025 ambulatory Blessing Granda MD Facility:[facility] Start: 03-03-2025 End: 03-03-2025 ambulatory Donald Lizarraga MD Work Phone: [facility] Work Phone: Start: 03-03-2025 End: 03-03-2025 Patient encounter procedure Peter Auguste DO -[facility] [place] Work Phone: Start: 02-12-2025 End: 02-12-2025 ambulatory Donald Lizarraga MD Work Phone: [facility] Work Phone: Start: 02-12-2025 End: 02-12-2025 Patient encounter procedure Donald Lizarraga MD -[facility] Work Phone: Start: 12-23-2024 End: 12-23-2024 ambulatory Blessing Granda MD Facility: [place] Start: 12-16-2024 Non-patient / Non-visit Blessing cui MD [facility] Work Phone: Start: 12-16-2024 End: 12-16-2024 ambulatory Blessing Granda MD Facility: [facility] Start: 12-14-2024 End: 12-14-2024 Letter encounter Emperatriz Carnes Work Phone: [facility] Start: 11-28-2024 Non-patient / Non-visit Merlyn Mesa CMA -[facility] Work Phone: Start: 11-25-2024 End: 11-25-2024 ambulatory Blessing Granda MD Facility:[facility] Start: 11-06-2024 End: 11-06-2024 Refill Prasanth Perez MD Work Phone: [facility] Comment on above: Refill Start: 05-29-2024 End: 05-29-2024 ambulatory Donald Lizarraga MD Work Phone: [facility] Work Phone: Start: 05-29-2024 End: 05-29-2024 Patient encounter procedure Donald Lizarraga MD Work Phone: [facility] Physician [facility] Work Phone: Start: 05-26-2024 End: 05-26-2024 ambulatory Donald Lizarraga MD Work Phone: [facility] Work Phone: Start: 05-26-2024 End: 05-26-2024 Patient encounter procedure Donald Lizarraga MD Work Phone: [facility] Physician [facility] Work Phone: Start: 05-08-2024 End: 05-08-2024 ambulatory [facility] Work Phone: Start: 05-08-2024 End: 05-08-2024 Patient encounter procedure [facility] Work Phone: Start: 04-29-2024 Non-patient / Non-visit [facility] Physician [facility] Work Phone: Start: 04-29-2024 End: 04-29-2024 ambulatory Blessing Granda MD Facility:[facility] Start: 04-15-2024 End: 04-15-2024 Office outpatient visit 25 minutes Prasanth Perez MD Work Phone: [facility] Comment on above: PAF (paroxysmal atri al fibrillation) (HCC) (Primary Dx) Start: 04-15-2024 End: 04-15-2024 ambulatory PRASANTH PEREZ Facility:[facility] Start: 01-23-2024 End: 01-23-2024 ambulatory CATHIE HERNANDEZ [facility] Start: 01-23-2024 End: 01-23-2024 Patient encounter procedure CATHIE HERNANDEZ [facility] Start: 12-27-2023 End: 12-28-2023 Patient encounter status Emperatriz Karim DO Work Phone: [employer] Start: 12-27-2023 End: 12-28-2023 Refill Emperatriz Carnes DO Work Phone: [facility] Comment on above: Refill Start: 10-19-2023 End: 10-19-2023 ambulatory [facility] Work Phone: Start: 10-19-2023 End: 10-19-2023 Patient encounter procedure [facility] Physician [facility] Work Phone: Start: 09-07-2023 Non-patient / Non-visit [facility] Physician [facility] Work Phone: Start: 07-20-2023 End: 07-20-2023 ambulatory Donald Lizarraga Other [employer] Other Start: 07-20-2023 Telephone encounter Donald Lizarraga [facility] Start: 07-13-2023 End: 07-13-2023 ambulatory Donald Lizarraga Other [employer] Other Start: 07-13-2023 Office outpatient vi sit 15 minutes Donald Lizarraga [facility] Start: 04-04-2023 Patient encounter status Emperatriz Carnes DO Work Phone: [employer] Start: 04-04-2023 Refill Emperatriz Carnes DO Work Phone: [employer] [facility] Comment on above: Refill Start: 03-29-2023 End: 03-29-2023 Office outpatient visit 15 minutes Emperatriz Carnes DO Work Phone: [employer] [facility] Comment on above: Persistent atrial fi brillation (HCC) (Primary Dx); Anticoagulated; JAVED on CPAP Start: 03-28-2023 End: 03-28-2023 ambulatory Donald Lizarraga Other [employer] Other Start: 03-28-2023 Telephone encounter Donald Lizarraga [facility] Start: 03-18-2023 Letter encounter Emperatriz Villafana O Work Phone: [facility] Start: 02-16-2023 Telephone encounter Emperatriz velarde DO Work Phone: [facility] Comment on above: Question about medic ation Refill Start: 02-14-2023 Patient encounter status Emperatriz Carnes DO Work Phone: [facility] Start: 02-14-2023 Refill [facility] Carnes DO [facility] Comment on above: Refill Start: 01-24-2023 End: 01-24-2023 Lab Drop off CATHIE HERNANDEZ [facility] Start: 01-24-2023 End: 01-24-2023 Patient encounter procedure CATHIE HERNANDEZ [facility] Start: 11-10-2022 End: 11-11-2022 ambulatory JEET HERNÁNDEZ . Facility:[facility] Start: 11-07-2022 End: 12-07-[address] DONALD LIZARRAGA Facility:[facility] Start: 10-13-2022 ambulatory NARENDRANELOY LAKSHMIPATHY . Facility:[facility] Start: 10-11-2022 (Televisit) Televisit Donald Leon [facility] Start: 10-11-2022 End: 10-11-2022 ambulatory Donald Lizarraga Other [place] [employer] Other Start: 10-10-2022 End: 11-04-2022 ambulatory SHAIKH Gurwinder FARMER Facility:[facility] Start: 10-06-2022 End: 10-06-2022 Patient encounter procedure Oxana IBARRA [facility] Start: 2022 Telephone encounter Donald BARRERA [facility] Start: 2022 End: 09-09-[address] DONALD LIZARRAGA [facility] [employer] Other Start: 09-07-2022 End: 10-07-2022 ambulatory SHAIKH Gurwinder FARMER Facility:[facility] Start: 08-10-2022 End: 09-07-2022 ambulatory SHAIKH Gurwinder FARMER Facility:[facility] Start: 07-29-2022 End: 07-29-2022 Patient encounter procedure Elicia Mcmillan [facility] Start: 07-26-2022 End: 07-26-2022 ambulatory Donald Lizarraga Other [facility] [employer] Other Start: 07-26-2022 Office outpatient vi sit 15 minutes Donald Lizarraga [facility] Start: 07-20-2022 End: 07-21-[address] [...] Emperatriz Carnes DO [facility] Phone: [facility] Start: 02-27-2022 Refill Emperatriz Karim DO Work Phone: [facility] Comment on above: Refill Start: 02-07-2022 End: 02-07-[address] DONALD LIZARRAGA Facility:[facility] Start: 02-07-2022 End: 03-09-[address] DONALD LIZARRAGA Facility:[facility] Start: 01-15-2022 Refill Emperatriz Karim DO Work Phone: [facility] Comment on above: Refill Start: 01-07-2022 End: 02-04-[address] DONALD LIZARRAGA Facility:[facility] Start: 11-24-2021 Patient encounter status Emperatriz Karim DO Work Phone: [facility] Start: 11-24-2021 Refill Emperatriz Karim DO Work Phone: [facility] Comment on above: Refill Start: 11-24-2021 Refill Emperatriz Karim DO Work Phone: [facility] Comment on above: Refill Start: 10-27-2021 End: 10-27-2021 Patient encounter procedure CATHIE HERNANDEZ [facility] Start: 03-28-2018 Patient encounter Devin Greer Fa cility:[facility] Start: 04-24-2017 End: 04-25-2017 Ambulatory DEFAULT PHYSICIAN Facility:[email or web address] Start: 03-03-2017 End: 03-04-2017 Ambulatory DEFAULT PHYSICIAN Facility:[email or web address] Procedures Date Procedure Procedure Detail Performing Clinician Start: 05-26-2024 Plain chest X-ray Donald Lizarraga MD Work Phone: Start: 10-06-2022 Colonoscopy Oxana IBARRA Start: [address] JADEN VILLA . Comment on above: Performed By: #### PSASC #### [facility] [address] [place] [address] Dr. Jason Pearson Start: 04-23-2020 Transurethral prostatectomy [...] Vaccine (#1) [facility] Start: 02-12-2025 Patient referral [facility] Work Phone: Start: 03-10-2024 COVID-19 Vaccine ( season) COVID-19 Vaccine ( season) [facility] Start: 03-10-2024 COVID-19 Vaccine ( season) COVID-19 Vaccine () [facility] Start: 03-10-2024 Influenza vaccination Influenza Vaccine (#1) [facility] Start: 04-09-2023 Influenza vaccination Influenza Vaccine (#[facility] Start: 03-29-2023 End: 03-29-2023 Telemedicine consultation with patient 03/29/2023 4:20 PM EDT Telemedicine [facility] [address] [facility] [address] [place] [address] Emperatriz Carnes DO [address] [facility] [place] [address] [facility] Start: 03-10-2023 COVID-19 Vaccine [...] (1 - Risk 60-74 years 1-dose series) [facility] Start: 2013 RSV vaccine (optional 60+ years) [...] Screening for malignant neoplasm of colon Colonoscopy [facility] Patient Education Low back pain in adults [facility] Work Phone: Patient referral [facility] Work Phone: Immunizations Immunization Date Immunization Notes Care Provider Fa [facility] 05-24-2023 Pneumococcal conjuga te 20 valent (PCV20), polysaccharide [id number] conjugate, adjuvant, PF (XQV=232) [employer] Work Phone: [facility] 05-10-2023 influenza virus vaccine, unspecified formulation CATHIE HERNANDEZ [facility] 05-10-2023 Influenza, seasonal vaccine, quadrivalent, adjuvanted, 0.5mL dose, preservative free (FTQ=837) [employer] Work Phone: [facility] 05-24-2022 influenza virus vaccine, unspecified formulation Elicia Mcmillan [facility] 05-24-2022 Influenza, seasonal vaccine, quadrivalent, adjuvanted, 0.5mL dose, preservative free (GMU=914) [facility]peratriz Karim DO [facility] 12-16-2021 Pfizer Monovalent (1 2+ yrs) SARS-COV-2 (COVID-19) vaccine, mRNA, spike protein, LNP, pres. free, 30 mcg/0.3mL dose, art-sucrose (IOB=447) Emperatriz Karim DO Work Phone: [facility] 12-16-2021 SARS-CoV-2 mRNA (ykkdymxeory-dnwv-qvcje se) vaccine Elicia Mcmillan [facility] 08-18-2021 pneumococcal conjuga te vaccine, 13 valent Emperatriz Carnes DO Work Phone: [facility] 06-09-2021 SARS-CoV-2 (COVID-19 ) mRNA BNT-162b2 vax Elicia Mcmillan [facility] 05-26-2021 SARS-CoV-2 (COVID-19 ) Ad26 vaccine, recombinant CATHIE HERNANDEZ [facility] 05-21-2021 Influenza, seasonal vaccine, quadrivalent, adjuvanted, 0.5mL dose, preservative free (UWY=239) Emperatriz Karim DO Work Phone: [facility] 05-21-2021 influenza virus vaccine, unspecified formulation Emperatriz Karim DO Work Phone: [facility] 04-28-2021 influenza virus vaccine, unspecified formulation CATHIE TIANA [facility] 04-28-2021 SARS-CoV-2 (COVID-19 ) Ad26 vaccine, recombinant CATHIE HERNANDEZ [facility] 09-26-2020 Pfizer SARS-COV-2 (COVID-19) vaccine, age 12+ yrs, mRNA, spike protein, LNP, preservative free, 30 mcg/0.3mL dose ([id number]) Emperatriz Karim DO Work Phone: [facility] Comment on above: Result Comment: 2022: [id number] 09-05-2020 Pfizer SARS-COV-2 (COVID-19) vaccine, age 12+ yrs, mRNA, spike protein, LNP, preservative free, 30 mcg/0.3mL dose (GCR=[id number]) Emperatriz Karim DO Work Phone: [facility] Comment on above: Result Comment: 2022: [id number] 05-10-2020 influenza virus vaccine, unspecified formulation CATHIE HERNANDEZ [facility] 05-05-2020 influenza virus vaccine, unspecified formulation Eliciagurwinder GarciaHipolito [facility] 05-05-2020 Influenza, seasonal vaccine, quadrivalent, adjuvanted, 0.5mL dose, preservative free (OXC=755) Emperatriz Karim DO Work Phone: [facility] 04-29-2019 influenza virus vaccine, unspecified formulation Eliciagurwinder GarciaHipolito [facility] 04-29-2019 influenza, high dose seasonal, preservative-free Emperatriz Karim DO Work Phone: [facility] 04-26-2018 influenza virus vaccine, unspecified formulation Eliciagurwinder GarciaHipolito [facility] 04-26-2018 Influenza, injectabl e, Madin Courtney Canine Kidney, preservative free, quadrivalent Emperatriz Karim DO Work Phone: [facility] 04-19-2016 influenza virus vaccine, split virus (incl. purified surface antigen) Donald Lizarraga Other [facility] Other 04-19-2016 influenza virus vaccine, unspecified formulation [facility] 04-19-2016 pneumococcal polysaccharide vaccine, 23 valent Donaldtrixie Lizarraga Other [facility] 06-23-2014 influenza virus vaccine, split virus (incl. purified surface antigen) Donald Lizarraga Other [facility] Other 06-23-2014 influenza virus vaccine, unspecified formulation [facility] 02-13-2014 diphtheria, tetanus toxoids and acellular pertussis vaccine, unspecified formulation Donaldtrixie Lizarraga Other [facility] Payers Date Payer Category Payer Commercial Indemnity [facility] [id number] 2022 Unknown 2018 Medicare [id number] [id number]. [id number] 2018 Medicare FFS MEDICARE [id number]. [id number] 1959 Medicare [id number] 2.16.840.1.967606.19 1959 Unknown [id number] 2.16.840.1.120499.19 1953 Unknown [id number] 2.16.840.1.738626.3.579.2.5 93 1953 Unknown [id number] 2.16.840.1.247806.3.579.2.5 93 1953 Unknown [id number] 2.16.840.1.715262.3.579.2.5 93 1953 Unknown [id number] 2.16.840.1.364535.3.579.2.5 93 1953 Unknown [id number] 2.16.840.1.738357.3.579.2.5 93 1953 Unknown [id number] 2.16.840.1.228963.3.579.2.5 93 1953 Unknown [id number] 2.16.840.1.711437.3.579.2.5 93 1953 Unknown [id number] 2.16.840.1.062533.3.579.2.5 93 1953 Unknown [id number] 2.16.840.1.207082.3.579.2.5 93 1953 Unknown [id number] 2.16.840.1.076776.3.579.2.5 93 1953 Unknown [id number] 2.16.840.1.011081.3.579.2.5 93 1953 Unknown [id number] 2.16.840.1.817390.3.579.2.5 93 1953 Unknown [id number] 2.16.840.1.041728.3.579.2.5 93 1953 Unknown [id number] 2.16.840.1.954358.3.579.2.5 93 1953 Unknown [id number] 2.16.840.1.654942.3.579.2.5 93 1953 Unknown [id number] 2.16.840.1.694500.3.579.2.5 93 1953 Unknown [id number] 2.16.840.1.177640.3.579.2.5 93 1953 Unknown [id number] 2.16.840.1.914844.3.579.2.5 93 1953 Unknown [id number] 2.16.840.1.126493.3.579.2.5 93 1953 Unknown [id number] 2.16.840.1.825387.3.579.2.5 93 1953 Unknown [id number] 2.16.840.1.503623.3.579.2.5 93 1953 Unknown [id number] 2.16.840.1.945335.3.579.2.5 93 1953 Unknown [id number] 2.16.840.1.404174.3.579.2.5 93 1953 Unknown [id number] 2.16.840.1.890164.3.579.2.7 27 1953 Unknown [id number] 2.16.840.1.610608.3.579.2.7 32 1953 Unknown [id number] 2.16.840.1.090889.3.579.2.1 96 1953 Unknown [id number] 2.16.840.1.216583.3.579.2.1 96 1953 Unknown [id number] 2.16.840.1.878952.3.579.2.1 96 1953 Unknown [id number] 2.16.840.1.957962.3.579.2.1 96 1953 Unknown [id number] 2.16.840.1.761394.3.579.2.1 96 1953 Unknown [id number] 2.16.840.1.758025.3.579.2.1 96 Unknown [id number] Unknown [place] BC/BS [id number] Social History Date Type Detail Facility Start: 12-28-2018 End: 09-03-2020 Tobacco smoking status Never smoked tobacco (finding) [facility] Tobacco smoking status Never [facility] Start: 03-27-2023 Sex Assigned At Male [facility] Start: 12-28-2018 Tobacco use and exposure Smokeless tobacco non-user [facility] Start: 12-28-2018 End: 03-27-2023 Alcohol intake Ex-drinker (finding) [facility] Start: 1955 Sex Assigned At Not on file [facility] Start: 1955 Sex Assigned At Male [facility] Start: 03-27-2023 History of Social function [facility] Within the last year , have you been afraid of your partner or ex-partner? No [facility] Do you belong to any clubs or organizations such as evangelical groups, unions, fraternal or athletic groups, or [...] got money to buy more. [facility] true [facility] Start: 03-27-2023 Education 17 [facility] Start: 08-09-2018 End: 05-26-2024 Sex Male (finding) [facility] Start: 03-27-2023 Details of drug misuse behavior Has never misused drugs (situation) [facility] Functional Status Date Assessment Result Facility 01-23-2024 Functional Status N/A [facility] 01-24-2023 Functional Status N/A [facility] 10-06-2022 Functional Status N/A [facility] 07-29-2022 Functional Status N/A [facility] Clinical Notes 11-24-2021 to [...] 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 10: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 [facility] Work Phone: 1(287) 121-562210-30-2024 Evaluation note* Diagnosis Onset Date Resolution Status Admit Date Bronchitis acute May 08, 2024 9:18am Cough noneactive May 26, 2024 9:07am [facility] Work Phone: 1(185) 351-630710-07-2024 History of Present illness Narrative* Prasanth Perez [...] his last visit, he had lexiscan at [facility] on 09/2016 that showe no reversible [...] in 1 year Prior to your visit, [facility] shared information with you about the risks [...] of patient Time-Based Billing Justifications: Charting in [facility] Patient visit (including performing [...] 180 Tablet 3 Sodium Sulfate-Mag Sulfate-KCl (Sutab) 4921-527-071 MG TABS Take by mouth. AMLODIPINE BESYLATE [...] declined Stress: No Stress Concern Present (03/27/2023) [employer] [place] [employer] - Occupational Stress Questionnaire Feeling of Stress : Not at all Social Connections: Moderately Integrated (03/27/2023) Social Connection and Isolation Panel [NHANES] Frequency of Communication with Friends and Family: More than three times a week Frequency of Social Gatherings with Friends and Family: Twice a week Attends Caodaism Services: Never Active Member of Clubs or Organizations: Yes Attends Club or Organization Meetings: More than 4 times per year Marital Status: Intimate Partner Violence: Not At Risk (03/27/2023) Humiliation, Afraid, Rape, and Kick questionnaire Fear of Current or Ex-Partner: No Emotionally Abused: No Physically Abused: No Sexually Abused: No No family history on file. documented in this [id number] Hospital Discharge instructions Patient Education 01/23/2024 14:28:31 [...] Follow these instructions at home: Medicines Take udjw-pqs-rasabjg and prescription medicines only as told by [...] provider. Document Revised: 09/22/2021 Document Reviewed: 09/22/2021 [employer] Patient Education 2022 [employer]. Follow Up Care 01/24/2023 10:37:20 With:TIANA GARCIA, CATHIE Ruano, URL Address: [address] [place] [address] [id number] When: only if needed [facility] [place] 07-16-2024 NotePatient Education Urology Erectile Dysfunction Erectile [...] these instructions at home: Medicines ? Take dzuc-xgj-uthafmn and prescription medicines only as told by [...] nicotine or tobacco. These (more content not included)...[facility]01-04-2024 Evaluation note* Encounter Date Diagnosis Assessment [...] Essential hypertension (ICD-10 - I10) as above [facility] Other 09-20-2023 History of Present illness Narrative* [...] male with PMH of atrial fibrillation, HTN, halfway anticoagulation, JAVED,chronic back pain, arthritis, who was seen today for pAF. Last televisit- 08/2020- He had to ER on 05/22/20 when he had pain with a blood clot- needing to stop his coumadin for a short period of time. He felt like he has been in sinus rhythm on his self checks. He was on Jvjxkwuein463 mg BID and Lopressor 100 mg BID. Since patient last saw me, he had TURP done- no further hematuria or urgency. PSA has been stable. Colonoscopy was normal per patient. No melena etc. ALLERGIES: Allergies Allergen Reactions Other (Review Comments!) MEDICATIONS: Current Outpatient Medications Medication Sig Dispense Refill Sodium Sulfate-Mag Sulfate-KCl (Sutab) 3842-061-187 MG TABS Take by mouth. AMLODIPINE BESYLATE [...] refused Stress: No Stress Concern Present (03/27/2023) [employer] [place] [employer] - Occupational Stress Questionnaire Feeling of Stress : Not at all Social Connections: Moderately Integrated (03/27/2023) Social Connection and Isolation Panel [NHANES] Frequency of Communication with Friends and Family: More than three times a week Frequency of Social Gatherings with Friends and Family: Twice a week Attends Caodaism Services: Never Active Member of Clubs or [...] Assessment/Plan: Persistent atrial fibrillation (HCC) (Primary Diagnosis) [768334] Anticoagulated [078994] JAVED on CPAP [281628] Patient doing well overall as far as [...] Electrophysiology 03/29/23 4:52 PM documented in this [id number] Telephone encounter Note* Telephone Encounter - Crystal Putnam RN - 02/17/2023 9:17 AM EDT LVM for pt that new generic Rx (Toprol XL) was sent over to [facility]. [id number] Miscellaneous Notes* Telephone Encounter - Crystal Putnam RN - 02/17/2023 9:17 AM EDT LVM for pt that new generic Rx (Toprol XL) was sent [facility] to [facility]. * Telephone Encounter - Heather Renteria - 02/16/2023 9:38 AM EDT [facility] is calling wanting to know if they can dispense Metoprolol SUCC- ER 100 mg instead ofthe Toprol XL 100 mg, pt's insurance will only cover the generic brand. Please contact Tour [phone] use Re:[phone]. Thank you documented in this [id number] Telephone encounter Note* Telephone Encounter - Aundrea Davis PharmD - 02/16/2023 3:00 PM EDT Patient called stating the original prescription that was sent had a KP for Toprol XL 100mg which is not covered. Please send over generic Metoprolol ER Succinate 100mg. Thank you! [id number] Miscellaneous Notes* Telephone Encounter - Aundrea Davis PharmD - 02/16/2023 3:00 PM EDT Patient called stating the original prescription that was sent had a KP for Toprol XL 100mg which is not covered. Please send over generic Metoprolol ER Succinate 100mg. Thank you! documented in this [id number] Telephone encounter Note* Telephone Encounter - Dexter October - 02/16/2023 9:38 AM EDT [facility] wanting to know if they can dispense Metoprolol SUCC- ER 100 mg instead ofthe Toprol XL 100 mg, pt's insurance will only cover the generic brand. Please contact [facility] [employer] [phone] use Re:[phone]. Thank you [employer] Work Phone: 1(358) 707-228107-18-2023 Hospital Discharge instructions Patient Education 01/24/2023 10:34:12 [...] Follow these instructions at home: Medicines Take tdby-xqo-xjaduoa and prescription medicines only as told by [...] provider. Document Revised: 09/22/2021 Document Reviewed: 09/22/2021 [employer] Patient Education 2022 [employer]. Follow Up Care 10/27/2021 12:15:55 With:TIANA GARCIA, CATHIE Ruano, URL Address: [address] [facility] [place] [address] When:Within 1 Year(s) [facility] 04-04-2023 Evaluation note* Encounter Date Diagnosis [...] I48.91) stable. 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 [facility] Other 03-30-2023 Evaluation + Plan noteExtracted from: Title:KRISSY post op Author:Daljit Gooden MD Date:10/06/22 Plan Transfer/Discharge: Transfer/Discharge Discharge when meets criteria ( To home ). Extracted from: Title:KRISSY GA Author:Daljit Gooden MD Date:10/06/22 Plan [place] [employer] Anesthesiologists (ASA) physical status classification: Class III. Anesthetic Preoperative Plan: Anesthesia General. Future Appointments Appointment Date:01/25/2023 10:00:00 AM Scheduled Provider:Erica Chua MD Location:[facility] Appointment Type:URO Office Visit [facility]03[facility]2023 Hospital Discharge instructions Patient Education 10/06/2022 10:00:07 Colonoscopy, Care After Surgery Salam (CUSTOM) Colonoscopy Care After Surgery Please read the instructions outlined below and refer to this sheet in the next few weeks. These discharge instructions provide you with general information on caring for yourself [facility] Your doctor may also give you specific [...] 03/22/2005 Document Revised: 10/11/2018 Document Reviewed: 10/11/2018 [employer] Patient Education 2020 [employer]. 10/06/2022 10:00:07 Hemorrhoids, Ieqt-he-Zljy Hemorrhoids Hemorrhoids are swollen veins that may [...] 3 times a day. General instructions Take qvcd-cle-ljzjwjg and prescription medicines only as told by [...] 04/04/2009 Document Revised: 07/04/2019 Document Reviewed: 11/15/2018 [employer] Patient Education 2020 [employer] Follow Up Care 07/29/2022 15:02:48 With:Oxana IBARRA Address: [facility] [address] [place] [address] Business (1) When: Unknown Comments:Call for any problems. [facility]01-20-2023 Hospital Discharge instructions Patient Education 07/29/2022 [...] including vitamins, herbs, eye drops, creams, and mipg-zwt-vcitymt medicines. Any problems you or family members [...] 06/23/2001 Document Revised: 04/18/2018 Document Reviewed: 09/06/2016 [employer] Patient Education [employer]. Follow Up Care 07/05/2022 09:47:30 With:Elicia Mcmillan CNP Address: When:1 to 2 weeks Comments:Following colonoscopy. [facility] 01-17-2023 Evaluation note* Encounter [...] way. Continue follow-up with cardiology as scheduled. [facility] Other 01-11-2023 NoteCONSULTATION CONSULTATION DATE: 07/20/2022 HISTORY [...] in three months' time unless otherwise indicated.[facility] 07-20-2022 NoteCONSULTATION PROCEDURE DATE: 07/20/2022 PREOPERATIVE DIAGNOSIS: [...] fan-like pattern. 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 He states that such activity has [...] for re-evaluation. Patient agrees to this plan.[id number] NoteCONSULTATION CONSULTATION DATE: 03/03/2022 This is a 45-exdb-sqewjopye returning to clinic for a 3-month follow-up. [...] be followed up in the office following.[id number] Telephone encounter Note* Telephone Encounter - Erica Beckett - 03/01/2022 11:40 AM EDT Patient has not been seen by this specialist in more than 1 year. Please contact patient to schedule office visit. Thank you [id number] Miscellaneous Notes* Telephone Encounter - Erica Beckett - 03/01/2022 11:40 AM EDT Patient has not been seen by this specialist in more than 1 year. Please contact patient to schedule office visit. Thank you documented in this [id number] Telephone encounter Note* Telephone Encounter - Irina Nguyen - 01/18/2022 7:23 AM EDT Last visit with Cardiology (Emperatriz Carnes) on 09/03/2020 Requested Prescriptions Pending Prescriptions Disp Refills metoprolol (TOPROL-XL) 100 mg XL tablet [Pharmacy Med Name: METOPROLOL SUCCINATE ER TABS 100MG] 90 Tablet 3 Sig: TAKE 1 TABLET DAILY No PCP on file No PCP on file [id number] Miscellaneous Notes* Telephone Encounter - Irina Nguyen - 01/18/2022 7:23 AM EDT Last visit with Cardiology (Emperatriz Carnes) on 09/03/2020 Requested Prescriptions Pending Prescriptions Disp Refills metoprolol (TOPROL-XL) 100 mg XL tablet [Pharmacy Med Name: METOPROLOL SUCCINATE ER TABS 100MG] 90 Tablet 3 Sig: TAKE 1 TABLET DAILY No PCP on file No PCP on file documented in this [id number] Telephone encounter Note* Telephone Encounter - Anirudh Gonzalez RPh - 11/29/2021 3:11 PM EDT Pt called back, will talk to his [facility] to get refill [facility] Work Phone: 1(564) 839-377205-23-2022 Miscellaneous Notes* Telephone Encounter - Anirudh Gonzalez RPh - 11/29/2021 3:11 PM EDT Pt called back, will talk to his [facility] to get refill * Telephone Encounter - Asia Laguna RN - 11/29/2021 2:52 PM EDT Left message for pt to return call to ACC at [phone] 2nd attempt * Telephone Encounter - Cathie Whitley RN - 11/26/2021 2:46 PM EDT Left message for patient to please call back. 1st attempt * Telephone Encounter - Anirudh Gonzalez RPh - 11/25/2021 9:37 AM EDT [facility] Staff, Please contact pt re the following issue. Per 09/03/[address] [facility] , they should refill, will deny Thanks! * Telephone Encounter - Tamiko Rodriguez PharmD - 11/24/2021 4:09 PM EDT Requested Prescriptions Pending Prescriptions Disp Refills warfarin (COUMADIN) 5 MG tablet 90 Tablet 0 Sig: Take 1 Tablet by mouth daily. No PCP on file No PCP on file documented in this [id number] Telephone encounter Note* Telephone Encounter - Asia Laguna RN - 11/29/2021 2:52 PM EDT Left message for pt to return call to [facility] at [phone] [facility]nd attempt [facility] Work Phone: 1(727) 802-661305-20-2022 Telephone encounter Note* Telephone Encounter - Cathie Whitley RN - 11/26/2021 2:46 PM EDT Left message for patient to please call back. 1st attempt [id number] Telephone encounter Note* Telephone Encounter - Anirudh Gonzalez RPh - 11/25/2021 9:37 AM EDT [facility] Staff, Please contact pt re the following issue. Per 09/03/[address] [facility] , they should refill, will deny Thanks! [id number] Telephone encounter Note* Telephone Encounter - Tamiko Rodriguez PharmD - 11/24/2021 4:09 PM EDT Requested Prescriptions Pending Prescriptions Disp Refills warfarin (COUMADIN) 5 MG tablet 90 Tablet 0 Sig: Take 1 Tablet by mouth daily. No PCP on file No PCP on file [employer] Work Phone: 1(950) 912-784505-18-2022 Miscellaneous Notes* Telephone Encounter - Tamiko Rodriguez [...] [Pharmacy Med Name: POTASSIUM CHLORIDE ER (DISP) [id number]] 180 Tablet 3 Sig: TAKE 1 TABLET TWICE A DAY Refused Prescriptions Disp Refills warfarin (COUMADIN) 5 MG tablet [Pharmacy Med Name: WARFARIN TABS 5MG] 90 Tablet 3 Sig: TAKE 1 TABLET DAILY (INR: 2.33) No PCP on file No PCP on file documented in this encounterMetroHealthEvaluation + Plan note Future Appointments Appointment Date:11/01/2022 09:45:00 AM Scheduled Provider:Kun Cole MD, Min Villagomez Location:[facility] Appointment Type:URO Office Visit Diagnostic Tests Pending * PSA Total 10/27/21 [facility] evaluation + Plan note Future Appointments Appointment Date:10/06/2022 09:00:00 AM Scheduled Provider: Location:[facility] Appointment Type:Surgery FT Appointment Date:11/01/2022 09:45:00 AM Scheduled Provider:Min Tristan Jr., MD Location:[facility] Appointment Type:URO Office Visit [facility] Evaluation + Plan note Future Appointments Appointment Date:01/30/2024 10:00:00 AM Scheduled Provider:CATHIE HERNANDEZ PA-C Location:[facility] Appointment Type:URO Office Visit [facility] evaluation + Plan note Future Appointments Appointment Date:01/30/2024 10:00:00 AM Scheduled Provider:CATHIE HERNANDEZ PA-C Location:[facility] Appointment Type:URO Office Visit Diagnostic Tests Pending * [facility] (paroxysmal atrial fibrillation) [...] present documented in this encounter [facility]No [facility] [place] Other Evaluation note* Diagnosis Persistent atrial fibrillation [...] in this encounter [facility] noteNo assessment information [facility] Work Phone: Evaluation note* Diagnosis PAF [...] Diagnosis Onset Date Resolution Status Bronchitis acute [facility] Work Phone: Evaluation note* Diagnosis Onset Date Resolution Status Admit Date A-fib acute February 12 9:16am Bilateral primary osteoarthr itis of hip acute February 12, 2025 9:16am Bilateral primary osteoarthr itis of knee acute February 12, 2025 9:16am Lumbar pain acute February 12, 025 9:16am Medicare annual wellness vis it, subsequent acute [place] 6th, 2025 9:16am JAVED on CPAP acute February 12 9:16am [facility] Work Phone: Evaluation note* Diagnosis PAF [...] Hospitalization History No Hospitalization histo ry information [facility] Other Hospital course Narrative No data available for this section [facility] Hospital Discharge instructions No data available for this section [facility] Hospital Discharge instructionsAmbulatory Orders* Referral to Orthopedic Surgery Location: None Selected [facility] Work Phone: Progress note No data available for this section [facility] Summary Purpose Family History [...] section and content) DATE CREATED AUTHOR 01/02/2018 [facility] DATE CREATED AUTHOR AUTHOR'S ORGANIZ ATION 04/24/2018 [facility] DATE CREATED AUTHOR AUTHOR'S ORGANIZ ATION 05/06/2018 [facility] DATE CREATED AUTHOR AUTHOR'S ORGANIZ ATION 12/16/2022 [facility] DATE CREATED AUTHOR AUTHOR'S ORGANIZ ATION [facility]2024 [facility] DATE CREATED AUTHOR AUTHOR'S ORGANIZ ATION 04/15/2024 [facility] DATE CREATED AUTHOR AUTHOR'S ORGANIZ ATION 05/28/2024 [facility] DATE CREATED AUTHOR AUTHOR'S ORGANIZ ATION 04/19/2025 [facility] Reason for Visit (unrecogniz ed [...] Care Teams (unrecognized sec tion and content) Stage Set Designer Relationship Specialty Start Date End Date Emperatriz Carnes DO [address] [place] [address] Physician Electrophysiology 04/14/20 Stage Set Designer Relationship Specialty Start Date End Date Deyvi EmperatrizDO quique [address] [place] [address] Physician Electrophysiology 04/14/20 Stage Set Designer Relationship Specialty Start Date End Date Deyvi EmperatrizDO quique [address] [place] [address] Physician Electrophysiology 04/14/20 Stage Set Designer Relationship Specialty Start Date End Date RodolfoSa betsyDO quique [address] [place] [address] Physician Electrophysiology 04/14/20 Stage Set Designer Relationship Specialty Start Date End Date Rodolfobetsy EmperatrizDO quique [address] [place] [address] [place] [address] Physician Electrophysiology 04/14/20 Stage Set Designer Relationship Specialty Start Date End Date Emperatriz Carnes, DO [address] [place] [address] Physician Electrophysiology 04/14/20 Stage Set Designer Relationship Specialty Start Date End Date Emperatriz Carnes, DO [address] [place] [address] Physician Electrophysiology 04/14/20 Stage Set Designer Relationship Specialty Start Date End Date Emperatriz Carnes, DO [address] [place] [address] Physician Electrophysiology 04/14/20 Stage Set Designer Relationship Specialty Start Date End Date Emperatriz Carnes, DO [address] [place] [address] Physician Electrophysiology 04/14/20 Team Status: Active Member [...] October 19, 2023 End: October 19, 2023 Stage Set Designer Relationship Specialty Start Date End Date Emperatriz Carnes, DO [address] [place] [address] Physician Electrophysiology 04/14/20 Stage Set Designer Relationship Specialty Start Date End Date Emperatriz Carnes, DO [address] [place] [address] Physician Electrophysiology 04/14/20 Team Status: Active Member [...] May 29, 2024 End: May 29, 2024 Stage Set Designer Relationship Specialty Start Date End Date Emperatriz Carnes DO [address] [place] [id number] Physician Electrophysiology 04/14/20 Prasanth Perez MD [address] [place] [address] Physician Cardiac Electrophysiology 05/11/24 Stage Set Designer Relationship Specialty Start Date End Date Emperatriz Carnes DO [address] [place] [address] Physician Electrophysiology 04/14/20 Prasanth Perez MD [address] [place] [address] Physician Cardiac Electrophysiology 05/11/24 Team Status: Active [...] March 03, 2025 End: March 03, 2025 Stage Set Designer Relationship Specialty Start Date End Date Emperatriz Carnes DO [address] [place] [address] Physician Electrophysiology 04/14/20 Prasanth Perez MD [address] [facility] [place] [address] Physician Cardiac Electrophysiology 05/11/24 Goals (unrecognized section [...] BE BASED ON THE PRIMARY CLINICAL RECORDS. [facility]. provides no warranty or guarantee of the accuracy or completeness of information in this document.
--- OUTSIDE RECORDS SUMMARY | 2025-04-28 07:56 | XMS_ITS | Clinical Summary ---
Author Organization [facility] Address [address] [place] [address] Care Team Providers Care Nailer Operator Name Role Phone Unavailable Primary Care Provider [...]
--- OUTSIDE RECORDS SUMMARY | 2025-04-28 07:56 | XMS_ITS | Clinical Summary ---
Author Organization [facility] Address [address] [place] [address], [address] [place] [address] Care Team Providers Care Spinner Hydraulic Name Role Phone Unavailable Primary Care Provider [...]
--- OUTSIDE RECORDS SUMMARY | 2025-04-28 07:56 | XMS_ITS | Clinical Summary ---
Author Organization [facility] Address [address] [place] [address] Phone Care Team Providers Care Software Developer Consultant Name Role Phone Rocio Bagley MD Primary Care Provider [phone] Social History Tobacco Use Types Packs/Day Years Used Date Smoking Tobacco: Never Assessed Sex and Gender Information Value Date Recorded Sex Assigned at Not on file Legal Sex Male 12:38 PM EST Gender Identity Not on file Sexual Orientation Not on file Plan of Treatment Not on file Care Teams Software Developer Consultant Relationship Specialty Start Date End Date Rocio Bagley MD [address] [place] [address] [address] [place] [address] PCP - General 03/28/18
--- OUTSIDE RECORDS SUMMARY | 2025-04-28 07:56 | XMS_ITS | Encounter Summary ---
Author Organization [facility] Address [address] [facility] [place] [address] Care Team Providers Care Crankshaft Grinder Name Role Phone Emperatriz Carnes DO Unavailable Carlos Nuñez MD Unavailable [phone] Encounter Details Date Type Department Care Team [...] on filedocumented in this encounter Care Teams Crankshaft Grinder Relationship Specialty Start Date End Date Emperatriz Carnes DO [address] [facility] [place] [address] Physician Electrophysiology 04/14/20 Carlos Nuñez MD [address] [facility] [place] [address] Physician Cardiac Electrophysiology 05/11/24 documented as of this encounter
--- OUTSIDE RECORDS SUMMARY | 2025-04-28 07:56 | XMS_ITS | Encounter Summary ---
Author Organization [facility] Address [address] [facility] [place] [address] Care Team Providers Care Wind Turbine Mechanic Name Role Phone Emperatriz Carnes DO Unavailable Carlos Nuñez MD Unavailable [phone] Encounter Details Date Type Department Care Team [...] on filedocumented in this encounter Care Teams Wind Turbine Mechanic Relationship Specialty Start Date End Date Emperatriz Carnes DO [address] [facility] [address] Physician Electrophysiology 04/14/20 Carlos Nuñez MD [address] [facility] [address] Physician Cardiac Electrophysiology 05/11/24 documented as of this encounter
--- OUTSIDE RECORDS SUMMARY | 2025-04-28 07:56 | XMS_ITS | Clinical Summary ---
Author Organization [facility] Address [address] [facility] [place] [address] Care Team Providers Care Motion Picture Set Up Worker Name Role Phone Emperatriz Carnes Unavailable Carlos Nuñez MD Unavailable [phone] Source Comments The following information is NOT included in Care Everywhere downloads:Psychiatric notes, ECG results, Cardiac Rehab notes, Pulmonary Function notes, data from [facility] (includes but not limited toPregnancy data,audiograms, eye exams, pre-surgical evaluation notes, well-child exam data).[facility] Allergies Active Allergy Reactions Criticality Noted [...] 01/25/20 23 Active Sodium Sulfate-Mag Sulfate-KCl (Sutab) 5980-744-117 MG TABS Take by mouth. 07/29/19 23 [...] Type Department Care Team Description 04/02/2025 Refill [facility]iology [address] [place] [address] Carlos Nuñez MD Refill from Last 3 Months Immunizations Immunization Administration Dates Next Due Influenza, Injectable, MDCK, Quadrivalent, Preservative Free (AFC=812) 04/26/2018 Influenza, injectable, adjuv anted, quadrivalent, preservative free (LVZ=704) 05/10/2023,05/24/2022,05/21/2021,05/05 Influenza, injectable, high dose seasonal, trivalent, preservative free (NKC=575) 04/29/2019 Influenza, unspecified formu lation (CVX=88) 04/28/2021 [employer] SARS-COV-2 (COVID-19 ) vaccine, vector non-replicating, recombinant spike protein-Ad26, preservative free, 0.5 mL (PPY=596) 05/26/2021 Pfizer Monovalent (12+ yrs) SARS-COV-2 (COVID-19) vaccine, mRNA, spike protein, LNP, pres. free, 30 mcg/0.3mL dose (KYE=194) 06/09/2021,09/26/2020,09/05/2020 Pfizer Monovalent (12+ yrs) SARS-COV-2 (COVID-19) vaccine, mRNA, spike protein, LNP, pres. free, 30 mcg/0.3mL dose, art-sucrose (VWG=737) 12/16/2021 Pneumococcal conjugate 13 va lent (PCV13) (ZNM=096) 08/18/2021 Pneumococcal conjugate 20 va lent (PCV20), polysaccharide [id number] conjugate, adjuvant, PF (PSI=955) 05/24/2023 Social History Tobacco Use Types Packs/Day [...] week 03/27/2023 How often do you attend [facility] or synagogue services? Never 03/27/2023 Do you belong to any clubs o r organizations such as yazidism groups, unions, fraternal or athletic groups, or [...] and heating? Not hard at all 03/27/2023 [facility] [place] [facility] - Occupational Stress [...] place to sleep or slept in a longterm (including now)? No 03/27/2023 Education Answer Date [...] [facility] [address] [place] [phone] from Last 3 Months or Most Recently Relevant to Health Maintenance Insurance MEDICARE DO NOT USE [facility] Care Teams Motion Picture Set Up Worker Relationship Specialty Start Date End Date Emperatriz Carnes DO [address] [place] [address] Physician Electrophysiology 04/14/20 Carlos Nuñez MD [address] [place] [address] Physician Cardiac Electrophysiology 05/11/24
--- OUTSIDE RECORDS SUMMARY | 2025-04-28 07:56 | XMS_ITS | Encounter Summary ---
Author Organization [facility] Address [address] [facility] [place] [address] Care Team Providers Care Staff Research Associate Name Role Phone Emperatriz Carnes DO Unavailable Carlos Nuñez MD Unavailable [phone] Encounter Details Date Type Department Care Team [...] on filedocumented in this encounter Care Teams Staff Research Associate Relationship Specialty Start Date End Date Emperatriz Carnes DO [address] [facility] [place] [address] Physician Electrophysiology 04/14/20 Carlos Nuñez MD [address] [facility] [place] [address] Physician Cardiac Electrophysiology 05/11/24 documented as of this encounter
[2025-04-28 08:16] LABS: INR 2.57; Prothrombin Time 24.8 sec (9.0-11.6)
[2025-04-28 08:17] VITALS: BP 119/71; PULSE 58; TEMP 36.8; O2SAT 98
[2025-04-28 08:55] VITALS: BP 138/61; BP 140/66; PULSE 60; PULSE 62; O2SAT 96
[2025-04-28] MEDS: BUPIVACAINE HCL 0.25% PF 25 MG/10 ML VIAL 2 ML INJ (08:57)
[2025-04-28] MEDS: LIDOCAINE HCL 2% 400 MG/20 ML MDV 12 ML INJ (08:57)
[2025-04-28] MEDS: METHYLPREDNISOLONE ACETATE 40 MG/ML VIAL INJ (08:58)
--- NOTE | 2025-04-28 09:12 | W.PM.PROCNOT ---
Date of procedure: 04/28/25 Pre-op diagnosis: Pain due to right knee osteoarthritis Post-op diagnosis: same as pre-op Procedure: Procedure: Right knee genicular nerve radiofrequency ablation Medications: Bupivacaine 0.25% 2cc, lidocaine 2% 10cc, depomedrol 40mg The patient was taken to the procedures suite and positioned in the supine position. I explained the details of the procedure to the patient including the risks, benefits and alternatives. We had an informed discussion and the patient verbalized understanding and signed the consent form. All questions were answered appropriately.? ? A 'time out' procedure was performed. The patient was identified, the chart was reviewed, and all allergies were confirmed. Laterality was conducted and marked. The right knee was marked with a sterile marking pen, prepped with Chloraprep, and sterilely draped.? Under fluoroscopic guidance, branches of the genicular nerves were localized.? First the superior medial genicular nerve was localized where the femoral shaft meets the medial epicondyle.? Skin was anesthetized with 1% lidocaine (only the superficial areas far from osseous contact).? The appropriate level of insertion was identified by placing a hemostat over the knee and obtaining an AP view. An 18-gauge 10 mm active tip 3.5 in needle was advanced in a coaxial manner in the lateral view at 1/2 the depth of the femur which was identified by placing forceps over the skin in the lateral view.? This was repeated on the superior lateral genicular nerve where the femoral shaft meets the lateral epicondyle and the inferior medial genicular nerve where the medial tibal shaft meets the tibial epicondyle (needle was advanced to half the depth of the tibia).? Needle placement was confirmed with a lateral view in all sites, after negative aspiration, 1cc of 2% lidocaine was injected at each of the three sites. ? Sensory testing was completed at 0.5 V at each level and motor testing was negative at 1.5 V for all 3 levels. Each of the sites were lesioned for 80 degrees at 80 seconds, with impedance < 500. The probes were subsequently removed and the sites of insertion were bandaged. The patient was taken to the postoperative area and discharged in good condition. Anesthesia: Local Surgeon: Blessing Granda Pathology: none sent Condition: stable Disposition: no change
== END 2025-04-28 09:12 | disposition home or self-care (01) ==
PROVIDERS: PCP Family Medicine; Visit Provider Anesthesiology
DX: M17.11 Unilateral primary osteoarthritis, right knee (principal); M25.561 Pain in right knee; Z79.01 Long term (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
CPT/HCPCS: 36415; 64624; 85610; J0665; J1010

== ENCOUNTER 2025-05-07 08:16 | Outpatient (OUT) | payer MEDICARE, SELFPAY ==
--- OUTSIDE RECORDS SUMMARY | 2025-05-05 07:52 | XMS_ITS | Continuity of Care Document ---
Author Organization [facility] Address [address] [place] [address] Phone Care Team Providers Care Upholstery Instructor Name Role Phone Rocio Bagley MD Primary Care Provider Rocio Bagley MD Attending Provider [phone] Peter Auguste DO Attending Provider [phone] Blessing Granda MD Attending Provider Care Teams Patient Care Team Team Status: Active Member Role/Relationship Status Dates Rocio Bagley MD Primary Care Provider Active Visit Care Team Team Status: Inactive Member Role/Relationship Status Dates Rocio Bagley MD Primary Care Provider Active Start: February 12, 2025 End: February 12, 2025Heron Almeida ProviderActiveStart: February 12, 2025 End: February 12, 2025 Visit Care Team Team Status: Inactive Member Role/Relationship Status Dates Rocio Bagley MD Primary Care Provider Active Start: March 03, 2025 End: March 03, 2025Peter Auguste DOAttwaldo ProviderActiveStart: March 03, 2025 End: March 03, 2025 Visit Care Team Team Status: Active Member Role/Relationship Status Dates Rocio Bagley MD Primary Care Provider Active Start: April 14, 2025 Heron Leal ProviderActiveStart: April 14, 2025 Patient Care Team Team Status: Active Member Role/Relationship Status Dates Rocio Bagley MD Primary Care Provider Active Start: April 28, 2025 Heron Leal ProviderActiveStart: April 28, 2025 Patient Care Team Team Status: Inactive Member Role/Relationship Status Dates Rocio Bagley MD Primary Care Provider Active Start: May 05, 2025 End: May 05, 2025Michael Fisherending ProviderActiveStart: May 05, 2025 End: May 05, 2025 Chief Complaint and Reason for Visit Chief Complaint Admit Date wellness February 12, 2025 9:[address] EVELYN BAGLEY TABITHA HIP PAIN WX March 03, 2025 10:28am [facility] 8-9 WEEKS May 05, 2025 1 0:50am Reason for Visit Admit Date A-fib February [...] (DJD) of hip March 03, 2025 10:28am Degenerative joint disease (DJD) of hip May 05, 2025 10:50am Allergies, Adverse Reactions, Alerts Allergen Type Severity Reaction Last Updated Verified Status Comments Decongestant Allergy Unknown Hives March 03, 2025 10:52am No Active DECONGESTANTSAllergyUnknownHivesAugust 2024 10:52amNoActiveOnset Date: 05/03/2013 Social History Smoking Status Status Start Date End Date Date of Observa tion Never smoked tobacco (finding) May 26, 2024 9:25am Observation Status Observation Response Date of Response Legal Sex [facility] (finding) [facility] 1955 Family History Relationship Condition Age at Onset Recorded Date/T gerhard father Unknown Malignant neoplasmUnknownmotherDeceasedUnknownMalignant neoplasmUnknown Problems Active Problems Problem Diagnosis/Recorded Date Onset Date Stat Medicare annual wellness vis it, subsequent February 12, 2025 10:00am Unknown Active JAVED on CPAP February 12, 2025 10:00am Unknown Act elvira Bilateral primary osteoarthritis of hip February 12 9:52am Unknown Active Bilateral primary osteoarthritis of knee February 12, 2 025 9:52am Unknown Active A-fib October 18, 2023 1:10pm Unknown Acti ve Degenerative joint disease (DJD) of hip March 03, 2 025 10:54am Unknown Active Lumbar pain October 24, 2023 9:52pm Unknown Acti ve Inactive/Resolved Problems Problem Diagnosis/Recorded Date Onset Date Stat us Bronchitis October 24, 2023 9:52pm Unknown Reso lved Medications Medication Status Dose Units Route Directions Qty Days Refills S tart Date Stop Date End Date Reason(s) Instructions Adherence Lisinopril 40 mg tablet Discontinued 0 .ROUTE.LMCKQPF928Zmdvzedg 2023 4:57pmDecember 2023 12:05pmTAKE 1 TABLET DAILYOlopatadine 0.1 % dajdvQuynetjufenh4RQYMLWQAAENECDOOivay ysaoi68Ydvm 2023 3:36pmMarch 2024 10:29amFreeTextSig: INSTILL 1 DROP INTO AFFECTED EYE TWICE A DAY FOR 30 DAYS; Note: Source Status: Taking;Refills: 3; Qty: 5 Milliliter; Provider: Yudi Chan ( )Hydrochlorothiazide 25 mg tabletDiscontinued0.ROUTE.SYROZVO614Wywnrj2023 11:43amAugust 2024 1:51pmTAKE 1 TABLET DAILYClotrimazole-Betamethasone 1-0.05 % creamActive1 APPLICTOPICALTwice daily as needed for yrtn384Nxvlpjxke 2023 12:18pm Complies with drug therapyAtorvastatin 20 mg tabletActive0.ROUTE.RYYPHGB755 May 06, 2024 8:50pmTAKE 1 TABLET AT BEDTIMEComplies with drug therapy Lisinopril 40 mg tabletActive0.ROUTE.JTGAVEL753Xvxucxrv 2023 12:05pmTAKE 1 TABLET DAILYComplies with drug therapyOlopatadine 0.1 % mduoxTeuyrj5MPYVF OPHTHALMICTwice ibeap44Nnkgu 2024 10:29amFreeTextSig: INSTILL 1 DROP INTO AFFECTED EYE TWICE A DAY FOR 30 DAYS; Note: Source Status: Taking;Refills: 3; Qty: 5 Milliliter; Provider: Yudi Chan ( )Complies with drug therapyHydrochlorothiazide 25 mg tabletActive0.ROUTE.HUQQDTA548Khcalx 21st, 2025 1:51pmTAKE 1 TABLET DAILYComplies with drug therapyLoratadine 10 mg tablet Zeycfyokkeex73NSBTWyfmbEpoux 2023 12:002024 9:32am FreeTextSi tablet once a day; Note: Source Status: Taking; Provider: Yudi Chan ( )Hydrochlorothiazide 25 mg ajdftjPpjylaizkpii12IYRRNkejf October 18, 2023 12:002023 11:43amFreeTextSig: TAKE 1 TABLET DAILY; Note: Source Status: Taking; Refills: 3; Qty: 90 Tablet; Provider: Yudi Chan ( )Gabapentin 300 mg capsuleActiveMGPOApril 2023 12:00amFreeTextSi qam and 1 qpm and 2 qhs Orally 4 times a day; Note: Source Status: Taking; Provider:Yudi Chan ( )Complies with drug therapyFlecainide 100 mg tabletActiveMGPOApril 2023 12:00am FreeTextSi.5 tablet Orally every 12 hrs; Note: Source Status: Taking; Provider: Yudi Chan ( )Complies with drug therapyWarfarin 5 mg tabletActiveMGPOAs DirectedApr2023 12:00amFreeTextSig: as directed orally; Note: Source Status: Taking; Provider: Yudi Chan ( ) Complies with drug therapyOlopatadine 0.1 % dropsDiscontinuedDROPSOPHTHALMIC October 18, 2023 12:00amApril 2023 10:52amFreeTextSig: INSTILL 1 DROP INTO AFFECTED EYE TWICE A DAY FOR 30 DAYS; Note: Source Status: Taking;Refills: 3; Qty: 5 Milliliter; Provider: Yudi Chan ( )Metoprolol Succinate 100 mg tablet extended release 24 ptGfystt5TROJFOlaunOylgy 2023 12:00am FreeTextSi tablet Orally Once a day; Note: Source Status: Taking; Provider: Yudi Chan ( )Complies with drug therapyTizanidine 4 mg tablet Hpnxvs8XWNAXoeiLbkah 2023 12:00amFreeTextSi tablet as needed Orally qhs prn; Note: Source Status: Taking; Provider: Yudi BeyComplies with drug therapyAtorvastatin 20 mg fhysvpPfgwmtfzknmk86BAXFLibuc at bedtimeApril 2023 12:00amOctober 2023 8:50pmFreeTextSig: TAKE 1 TABLET AT BEDTIME; Note: Source Status: Taking; Refills: 3; Qty: 90 Tablet; Provider: Yudi Chan ( )Calcium Carbonate 500 mg calcium (1,250 mg) tabletDiscontinued 500MGPODailyApril 2023 12:00amApril 2023 10:34amAscorbic Acid (Vitamin C) 500 mg capsuleDiscontinuedMGPOApril 2023 12:00amApril 2023 10:33amMultivitamin (Multiple Vitamins) tbbiizMlgvby5CHTCGPbvllNmpgi 2023 12:00amComplies with drug therapyPsyllium Seed (Sugar) (Metamucil (Sugar)) agpnwpAyzqbj6XPQUIBBzsbqYhoku 2023 12:00amComplies with drug therapy Docosahexaenoic Acid-Epa (Fish Oil) 120-180 mg wfhiapgKfsmxxxcesxt3TWCJGBhdck October 18, 2023 12:00amApril 2023 10:35amCarvedilol 3.125 mg tablet Discontinued3.125MGPOTwice dailyApril 2023 12:00amApril 2023 10:34am must administer with a meal/foodAspirin 81 mg tablet,delayed release (DR/EC) Mknhazqqwcqz49MBWYKelwySknbo 2023 12:00amApril 2023 10:33am Amlodipine 10 mg neiiacQvukoremupbb19GSEQStfymNntym 2023 12:00amApril 2023 10:34amClotrimazole-Betamethasone 1-0.05 % creamDiscontinuedAPPLIC TOPICALApril 2023 12:00amSeptember 2023 12:18pmFreeTextSi application Externally Twice a day, as needed; Note: Source Status: Taking; Refills:2; Qty: 1 Applicator; Provider: Yudi Chan EPotassium Chloride (Klor- Con M20) 20 mEq tablet,ER particles/ldvavhpzYjijzq18QVGAUFarsn dailyApril 2023 12:00amComplies with drug therapyCalcium Carbonate 500 mg calcium (1,250 mg) anegstXiiagx855JYWJPbkzrAxduv 2023 12:00amComplies with drug therapy Olopatadine 0.1 % penwdVjuxeemibala2KYVKRBATWGLTIQKNnvlz xihke17Icomk 2023 10:48amJune 2023 3:36pmFreeTextSig: INSTILL 1 DROP INTO AFFECTED EYE TWICE A DAY FOR 30 DAYS; Note: Source Status: Taking;Refills: 3; Qty: 5 Milliliter; Provider: Yudi Chan ( )Benzonatate 200 mg capsuleDiscontinued 934YMNJ5-4 TIMES PER DAY as needed for mrpjg325Bphci 2023 12:00amNovember 2023 11:05amCefdinir 300 mg kelxjtcZndubwkpcmbk225PDOTFvwsg tfdie729Rknpc 2023 12:00amNovember 2023 11:04amAlbuterol Sulfate 90 mcg/actuation HFA aerosol nwnhsbrAsedarryrjdj2CUDCVWFRMDSHTXLMLR 4-6 HOURS as needed for shortness of breath or wheezing6.70October 2023 12:00amNovember 2023 10:20amDoxycycline Hyclate 100 mg ujaghmsHktrbubqvgyg879DCFDNkhha epoiq8384 May 08, 2024 12:00amNovember 2023 10:21amPrednisone 50 mg tablet Vkphbzgsagah27YMPFKsoyg499Ywupxkp 2023 12:00amNovember 2023 10:20am Oxycodone-Acetaminophen (Percocet) 5-325 mg tzwlefDunsec8FJQWIIlwcq 8 hours as dcxwoa7Ztentoj 2024 12:00amComplies with drug therapyLisinopril 40 mg gcyhhxWgydgjjmdggf31QSZYCfyxgMlfaaami 2023 1:00amFebruary 2023 4:57pmPrednisone 20 mg nxwwylNghzbtznzece0RVHsqss2914Nyhrmwjh 2023 1:00am February 12, 2025 9:31amTake 2 tabs x 3 days, take 1 tab x 3 days, take 1/2 tab x 3 days orally daily;Albuterol Sulfate 90 mcg/actuation HFA aerosol inhaler Gddrrazpuayu6FYANRQBNZISWJDgvry 6 hoursMay 29, 2024 1:00amA2024 9:29amCefdinir 300 mg sgknvxoRcwibcyfxkzx862UXTIZafqc vakcq836NamyzpqrMay 29, 2024 11:13amA2024 9:30amBenzonatate 200 mg capsuleDiscontinued 268LXRE9-7 TIMES PER DAY as needed for xipnm205Fjrtanjt2023 1:002024 9:29amCetirizine (Zyrtec) 10 mg pqxinfLgunnn22ZQGJEftmb as needed February 12, 2025 12:00amComplies with drug therapy Immunizations Immunization Event Date Not Given Reason Dose Number Barrel Drum Cutter Lot Number Reason(s) Given Vaccine Information Statement (VIS) Detail Administration Location DTap, unspecified February 13, 2014 influenza, [facility] 2013influenza, unspecified [facility] 2015Pneumococcal Conjugate Vaccine, [address] [facility] 2Pneumococcal Polysacc. Vaccine, 23 valentCore[facility] 2015 Relevant Diagnostic Tests and/or Laboratory Data Laboratory Results Test Collection Date/Time Result Date/Time Result Interpretation Reference Range Result Comment Performing Site Prothromb Time International Ratio April 14, 2025 7:42am April 14, 2025 7:42am 2.50 DESIRED INR:2.0-3.0 CONDITIONS NOT LISTED BELOW2.5-3.5 FOR PROSTHETIC HEART VALVE REPLACEMENT2.5-3.5 RECURRENT THROMBOSISProthromb Time International Ratio April 28, 2025 7:57amOctober 2024 7:57am2.57DESIRED INR:2.0-3.0 CONDITIONS NOT LISTED BELOW2.5-3.5 FOR PROSTHETIC HEART VALVE REPLACEMENT2.5-3.5 RECURRENT THROMBOSISProthrombin TimeOctober 2024 7:42amOctober 2024 7:42am24.2 secAbove high normal9.0-11.6Prothrombin TimeOctober 2024 7:57am April 28, 2025 7:57am24.8 secAbove high normal9.0-11.6 Vital Signs Vital Reading Result Reference Range Collection Date/Time Height 74 [in_i] February 12, 2025 9:08rvCpbmwm153.71 kgAugust 2024 9:22amHeart Rate61 /min 60-100August 2024 9:22amBP Dgcxoucp314 mm[Hg]100-140August 2024 9:22am BP Zjbowulww68 mm[Hg]60-100August 2024 9:22amBMI (Body Mass Index)38.1 kg/c4Lzowzg 2024 9:40ybDejynu36 [in_i]March 03, 2025 10:28qaObuwyu012.70 kgAugust 2024 10:51amBMI (Body Mass Index)38.1 kg/e9Ttbptd 2024 10:38rdCnsjry90 [in_i]May 05, 2025 11:61raYrqwvy114.26 kgOctober 2024 11:20amBMI (Body Mass Index)38.0 kg/r0Easxrhf 2024 11:20am Advance Directives Advance Directive Response Recorded Date/ Time Advance Directives No October 18 024 10:11am Insurance Providers Guarantor Ledy Green Address [address] [place] [address]Hkmpfbe Info.Home Phone: Payer Group Member ID Coverage Type Subscriber Relationship to Subscriber Effective Date Expiration Date Romel TANG Id: [id number] Noe , D Id: [id number] [address] [place] [address] Home Phone: [facility] [id number] Noe Ledy Id: [id number] [address] [place] [address] Home Phone: [facility] [id number] Noe , Ledy Id: [id number] [address] [place] [address] Home Phone: Self Encounters Encounter Location(s) Arrival/Admit Date Discharge/Departure Date Discharge/Departure Disposition Provider(s) Departed Physician/ Provider Office Visit -[facility] February 12, 2025 9:16am February 12, 2025 10:07am Discharged to home care or self care (routine discharge) Rocio Bagley MD Departed Physician/ Provider Office Visit -[facility] [place] March 03, 2025 10:28am March 03, 2025 11:19am Discharged to home care or self care (routine discharge) Peter Auguste DO Non-patient / Non-visit -[facility] O ctober 2024 7:42am Blessing Granda MDNon-patient / [facility]ii[facility]fqgco[facility] April 28, 2025 7:57amAnJULIETTE Halleparted Physician/Provider Office Visit-[facility] 20[facility] 10:50amOctober 2024 11:51amDischarged to home care or self care (routine discharge)Peter Auguste DO Recent Diagnosis Onset Date Admit Date A-fib Unknown February 12, 2025 9:16am Bilateral primary osteoarthritis of hip Unknown February 12, 2025 9:16am Bilateral primary osteoarthritis of knee Unknown February 12, 2025 9:16am Lumbar pain Unknown February 12, 2025 9:16am Medicare annual wellness visit, subsequent Unkno wn February 12, 2025 9:16am JAVED on CPAP Unknown February 12, 2025 9:16am Degenerative joint disease (DJD) of hip Unknown March 03, 2025 10:28am Degenerative joint disease (DJD) of hip Unknown May 05, 2025 10:50am Assessments Diagnosis Onset Date Resolution Status Admit Date A-fib acuteAugust 2024 9:16amBilateral primary osteoarthritis of hipacuteAugust 2024 9:16amBilateral primary osteoarthritis of kneeacuteAugust 2024 9:16amLumbar painacuteAugust 2024 9:16amMedicare annual wellness visit, subsequentacuteAugust 2024 9:16amOSA on CPAPacuteAugust 2024 9:16am Degenerative joint disease (DJD) of hipacuteAugust 2024 10:28am Degenerative joint disease (DJD) of hipacuteOctober 2024 10:50am Plan of Treatment Author Peter [facility] 2024 11:32amTheodore presents with bilateral, right worse than left hip DJD. At this juncture we have discussed the findings and diagnosis as well as personally reviewed appropriate imaging and performed interpretation of related testing and examination with the patient in office today. Prior medical notes from Dr. Bagley and history have been reviewed. Today we have discussed degenerative joint disease of the hip and its treatment. Imaging was explained and discussed with the patient. We discussed recommended conservative therapies including physical therapy, anti-inflammatory medications, and weight loss strategies. We also discussed other treatment options including cortisone injections. I have laid out the course of hip DJD including the end-stage treatment of total joint arthroplasty. The patient recognizes and understands our options and goals and we will move forward with our treatment. Overall I think he would benefit from a course of physical therapy to address lumbar spine and hip. Discussed ongoing maintenance of mobility as well as core exercises. Plan to see back in 8 weeks for recheck or earlier if needed The patient has been involved in our cooperative treatment plan and agrees to move forward with treatment at this time. We discussed the importance of strength and mobility of the lumbar spine with physical therapy. Can also work on hip mobility with therapy. He can incorporate these exercises into his daily routine. We discussed the possibility of injections in the future. Author Peter [facility] 2024 11:49amTheodore presents with bilateral, right worse than left hip DJD. At this juncture we have discussed the findings and diagnosis as well as personally reviewed appropriate imaging and performed interpretation of related testing and examination with the patient in office today. Prior medical notes from Dr. Bagley and history have been reviewed. Today we have discussed degenerative joint disease of the hip and its treatment. Imaging was explained and discussed with the patient. We discussed recommended conservative therapies including physical therapy, anti-inflammatory medications, and weight loss strategies. We also discussed other treatment options including cortisone injections. I have laid out the course of hip DJD including the end-stage treatment of total joint arthroplasty. The patient recognizes and understands our options and goals and we will move forward with our treatment. He has completed course of physical therapy which did seem to help his low back issues. Still complaining of hip issues which are more hip related today. Discussed ongoing treatment occluding total hip arthroplasty as recommendation for hip DJD. He verbalizes understanding of this. Handouts given and he wants to take time to consider The patient has been involved in our cooperative treatment plan and agrees to move forward with treatment at this time. Author Rocio Bagley [facility] 2024 10:06amStable - est w [place] pain mgmt, but this is a chronic problem for Evangelist. Pt requests referral to Ortho for further guidance of his joint pain outside of his treatment plan from pain mgmt as above, uses Voltaren gel for knees. Personalized health advice was given to the beneficiary to health education of preventative counseling services or programs aimed at reducing identified risk factors and improving self-management or community-based lifestyle interventions to reduce health risks and promote self-management and wellness, including physical activity and nutrition. Pt uses his CPAP each night and is very compliant w his treatment plan for his JAVED. Sleeping 7-8 hours nightly. Stable, continue medications and followup w Cardiology as scheduled. Future Tests Future scheduled test information is unavailable Pending Tests Pending diagnostic test information is unavailable Future Visits Future appointment information is unavailable Future Procedures Future procedure information is unavailable Future Medications Future medication information is unavailable Patient Instructions Instruction Admit Date Low back pain in adults February 12, 2025 9:16am
--- OUTSIDE RECORDS SUMMARY | 2025-05-07 08:21 | XMS_ITS | Clinical Summary ---
Author Organization [facility] Healthcare Address [address] [place] [address] Care Team Providers Care Paster Operator Name Role Phone Unavailable Primary Care Provider Unavailabl e Social History Tobacco UseTypesPacks/DayYears UsedDateSmoking Tobacco: Never AssessedSex and Gender InformationValueDate RecordedSex Assigned at BirthNot on fileLegal Sex Male09/21/2022 7:40 PM EDTGender IdentityNot on fileSexual OrientationNot on file Last Filed Vital Signs Vital SignReadingTime TakenCommentsBlood Pressure--Pulse--Temperature-- Respiratory Rate--Oxygen Saturation--Inhaled Oxygen Concentration--Lvyvfh211 kg (329 lb)05/02/2022 12:00 PM PQTBoilqg119.4 cm (6' 1 )05/02/2022 12:00 PM EDTBody Mass Index43.411 12:00 PM EDT Plan of Treatment DateTypeDepartmentCare Team (Latest Contact Info)Lcnniedmomp82/29/2025 10:45 AM EDTOffice Visit [facility] [address] [facility] [address] [place] [id number] Jr. Mamadou Alcala, DO [address] [facility] [address] [place] [address] Health MaintenanceDue DateLast DoneCommentsCT Qhxzckxchpms44/02/1954FIT-DNA 1955FIT1955FOBT1955 0163Rziowyvrrtcqz01/02/1954TaP/Tdap/Td Vaccines (1 - Tdap)1960OVID-19 Vaccine ( season)2025 12/16/2021, 06/09/2021, 05/26/2021, Additional history existsInfluenza Vaccine (#1)51, 05/10/2023, 05/24/2022, Additional history exists Nvdntwsugkb09/30/203303/olorectal Cancer Xxldahumq80/30/2033Pneumococcal Vaccine: 65+ VjvraUcgzjdpbd32/15/2023, 08/18/2021, 04/19/2016HIB VaccinesAged OutNo longer eligible based on patient's age to complete this topicHPV Vaccines Aged OutNo longer eligible based on patient's age to complete this topic Hepatitis A VaccinesAged OutNo longer eligible based on patient's age to complete this topicHepatitis B VaccinesAged OutNo longer eligible based on patient's age to complete this topicIPV VaccinesAged OutNo longer eligible based on patient's age to complete this topicMeningococcal B VaccineAged OutNo longer eligible based on patient's age to complete this topicMeningococcal VaccineAged OutNo longer eligible based on patient's age to complete this topicRotavirus VaccinesAged OutNo longer eligible based on patient's age to complete this topic Insurance
--- OUTSIDE RECORDS SUMMARY | 2025-05-07 08:21 | XMS_ITS | Clinical Summary ---
Author Organization [facility] Address [address] [facility] [place] [address] Care Team Providers Care Lens Molder Name Role Phone Emperatriz Carnes DO Unavailable Carlos Nuñez MD Unavailable [phone] Source Comments The following information is NOT included in Care Everywhere downloads:Psychiatric notes, ECG results, Cardiac Rehab notes, Pulmonary Function notes, data from [place] (includes but not limited toPregnancy data,audiograms, eye exams, pre-surgical evaluation notes, well-child exam data).[facility] Allergies Active AllergyReactionsCriticalityNoted DateCommentsOther (Review Comments!) 12/28/2018 Medications MedicationSigDispense QuantityRefillsLast FilledStart DateEnd DateStatus atorvastatin (LIPITOR) 20 MG tablet Indications:Preop cardiovascular exam,PAF (paroxysmal atrial fibrillation), Anticoagulated,JAVED on CPAP,Obesity, unspecified classification, unspecified obesity type, unspecified whether serious comorbidity qploeuh3711/19/2018Active hydrochlorothiazide (HYDRODIURIL) 25 MG tablet Indications:Preop cardiovascular exam,PAF (paroxysmal atrial fibrillation), Anticoagulated,JAVED on CPAP,Obesity, unspecified classification, unspecified obesity type, unspecified whether serious comorbidity ziiagig2111/19/2018Active lisinopril (PRINIVIL, ZESTRIL) 40 MG tablet Indications:Preop cardiovascular exam,PAF (paroxysmal atrial fibrillation), Anticoagulated,JAVED on CPAP,Obesity, unspecified classification, unspecified obesity type, unspecified whether serious comorbidity fygalfs2311/19/2018Active loratadine (CLARITIN) 10 MG tablet Indications:Preop cardiovascular exam,PAF (paroxysmal atrial fibrillation), Anticoagulated,JAVED on CPAP,Obesity, unspecified classification, unspecified obesity type, unspecified whether serious comorbidity presentTake 10 mg by mouth daily.Active olopatadine (PATANOL) 0.1 % ophthalmic solution Indications:Preop cardiovascular exam,PAF (paroxysmal atrial fibrillation), Anticoagulated,JAVED on CPAP,Obesity, unspecified classification, unspecified obesity type, unspecified whether serious comorbidity presentolopatadine 0.1 % eye dropsActive Potassium Chloride 40 MEQ/15ML (20%) SOLN Indications:Preop cardiovascular exam,PAF (paroxysmal atrial fibrillation), Anticoagulated,JAVED on CPAP,Obesity, unspecified classification, unspecified obesity type, unspecified whether serious comorbidity mL.Active AMLODIPINE BESYLATE ORAL amLODIPine Besylate Not-TakingActive sildenafil citrate (VIAGRA) 25 MG tablet Take 25 mg by mouth.01/24/2023ctive Sodium Sulfate-Mag Sulfate-KCl (Sutab) 7034-183-659 MG TABS Take by mouth.07/29/2022ctive potassium chloride SA (Klor-Con M20) 20 MEQ controlled release tablet Indications:PAF (paroxysmal atrial fibrillation),Anticoagulated,Preop cardiovascular exam,JAVED on CPAP,Obesity, unspecified class, unspecified obesity type, unspecified whether serious comorbidity presentTake 1 Tablet by mouth 2 times daily. 180 Tablet 6Active metoprolol (TOPROL-XL) 100 mg XL tablet Take 1 Tablet by mouth daily. 90 Tablet 5Active flecainide (TAMBOCOR) 100 MG tablet Indications:Persistent atrial fibrillation (HCC)Take 1 Tablet by mouth 2 times daily. 180 Tablet 5Active warfarin (COUMADIN) 5 MG tablet Indications:PAF (paroxysmal atrial fibrillation),Anticoagulated,Preop cardiovascular exam,JAVED on CPAP,Obesity, unspecified class, unspecified obesity type, unspecified whether serious comorbidity presentTAKE ONE TO ONE AND ONE- HALF TABLETS DAILY OR DIRECTED BY MEDICATION MANAGEMENT CLINIC 120 Tablet 5Active Active Problems ProblemNoted DateDiagnosed DateErectile hdohblyfcan74/20/202309/pnea, sleepsymptomatic microscopic / Family history of colon oxbgtt64/History of colorectal cancer /7180Ovdsthlothgtso75/25/2021levated PSA05/27/2020Arthritis 05/27/2020Hypertensive ystoswpj49/21/2019Atrial hzlepfgpnbcz35/21/2019Malignant tumor of colon11/07/2014 Resolved Problems ProblemNoted DateDiagnosed DateResolved DatePAF (paroxysmal atrial fibrillation) Urinary dodmtve88Nocturia05/27/2020 03/29/2023Increased frequency of itapaxsbw38Incomplete emptying of xtzpipx33ross ncuypaadg00PH with urinary iqjlpsjygpg98 Encounters DateTypeDepartmentCare UldsCnuzocsfqfl25/24/2025Refill [facility] [address] [place], [place] [id number] Carlos Nuñez MD Refillfrom Last 3 Months Immunizations ImmunizationAdministration DatesNext DueInfluenza, Injectable, MDCK, Quadrivalent, Preservative Free (ZDX=855)04/26/2018Influenza, injectable, adjuvanted, quadrivalent, preservative free (RXK=125)05/10/2023,05/24/2022, 05/21/2021,05/05/2020Influenza, injectable, high dose seasonal, trivalent, preservative free (MOB=475)04/29/2019Influenza, unspecified formulation (CVX=88) 04/28/2021Alycia SARS-COV-2 (COVID-19) vaccine, vector non-replicating, recombinant spike protein-Ad26, preservative free, 0.5 mL (TXP=911)05/26/2021 Pfizer Monovalent (12+ yrs) SARS-COV-2 (COVID-19) vaccine, mRNA, spike protein, LNP, pres. free, 30mcg/0.3mL dose (IYS=326)06/09/2021,09/26/2020,09/05/2020 Pfizer Monovalent (12+ yrs) SARS-COV-2 (COVID-19) vaccine, mRNA, spike protein, LNP, pres. free, 30mcg/0.3mL dose, art-sucrose (EGW=474)12/16/2021neumococcal conjugate 13 valent (PCV13) (QYJ=159)08/18/2021neumococcal conjugate 20 valent (PCV20), polysaccharide JGL576 conjugate, adjuvant, PF (YTW=579)05/24/2023 Social History Tobacco UseTypesPacks/DayYears UsedDateSmoking Tobacco: NeverSmokeless Tobacco: NeverAlcohol UseStandard Drinks/WeekCommentsNot Currently0 (1 standard drink = 0.6 oz pure alcohol)Humiliation, Afraid, Rape, and Kick questionnaireAnswerDate RecordedWithin the last year, have you been afraid of your partner or ex-partner?No03/27/2023Within the last year, have you been humiliated or emotionally abused in other ways by your partner or ex-partner?No03/27/2023 Within the last year, have you been kicked, hit, slapped, or otherwise physically hurt by your partner or ex-partner?No03/27/2023Within the last year, have you been raped or forced to have any kind of sexual activity by your part ner or ex-partner?No03/27/2023Social Connection and Isolation Panel [NHANES] AnswerDate RecordedIn a typical week, how many times do you talk on the phone with family, friends, or neighbors?More than three times a week03/27/2023How often do you get together with friends or relatives?Twice a week03/27/2023How often do you attend quaker or congregation services?Never3Do you belong to any clubs or organizations such as quaker groups, unions, fraternal or athletic groups, or school groups?Yes03/27/2023How often do you attend meetings of the clubs or organizations you belong to?More than 4 times per year3Are you , , , , never , or living with a partner? Iekdrau2503/27/2023Overall Financial Resource Strain (CARDIA)AnswerDate Recorded How hard is it for you to pay for the very basics like food, housing, medical care, and heating?Not hard at all03/27/2023[facility] [place] [facility] Occupational Health - Occupational Stress QuestionnaireAnswerDate RecordedDo you feel stress - tense, restless, nervous, or anxious, or unable to sleep at night because your mind is troubled all the time - these days?Not at all03/27/2023Exercise Vital SignAnswerDate RecordedOn average, how many days per week do you engage in moderate to strenuous exercise (like a brisk walk)?Patient xdfgnjox20/18/2023On average, how many minutes do you engage in exercise at this level?Patient zcedtwfm24/18/2023Hunger Vital SignAnswerDate RecordedWithin the past 12 months, you worried that your food would run out before you got the money to buymore. Never true03/27/2023Within the past 12 months, the food you bought just didn't last and you didn't have money to get more.Never true03/27/2023RAPARE - TransportationAnswerDate RecordedIn the past 12 months, has lack of transportation kept you from medical appointments or from getting medications?No 03/27/2023In the past 12 months, has lack of transportation kept you from meetings, work, or from getting things needed for daily living?No03/27/2023 Housing Stability Vital SignAnswerDate RecordedIn the last 12 months, was there a time when you were not able to pay the mortgage or rent on time?No03/27/2023In the last 12 months, how many places have you lived?In the last 12 months, was there a time when you did not have a steady place to sleep or slept in ashelter (including now)?No03/27/2023EducationAnswerDate RecordedWhat is the highest level of school you have completed or the highest degree you have received?Bachelor's degree (e.g., BA, AB, BS)03/27/2023Substance UseTypes Use/WeekCommentsNeverSex and Gender InformationValueDate RecordedSex Assigned at BirthNot on fileLegal AmlXmfo2108/09/2018 12:10 PM ESTGender IdentityNot on file Sexual OrientationNot on file Last Filed Vital Signs Vital SignReadingTime TakenCommentsBlood Otgkbtoc493/72012/28/2018 2:42 PM EDT Xrxyl840012/28/2018 2:42 PM EDTTemperature--Respiratory Rate--Oxygen Citilbreyw96% 12/28/2018 2:42 PM EDTroom airInhaled Oxygen Concentration--Nroqqq026.6 kg (321 lb)12/28/2018 2:42 PM ACQVwtuav946 cm (6' 2 )12/28/2018 2:42 PM EDTBody Mass Index41.21012/28/2018 2:42 PM EDT Plan of Treatment Health MaintenanceDue DateLast DpxdZixpetlqQlfdveqnxwn33/02/1956Hepatitis C Cpwotqqx05/02/1972Tdap Mdvwfsl9609/09/1971Hepatitis A (HAV) Vaccine (optional start 19+ years)1972CRC Xtlzjwhsr84/02/1999Cologuard (Stool DNA)1998 FIT1998Shingles (RZV) Vaccine (1 of 2)09/09/2003Hepatitis B (HBV) Vaccine (optional start 60+ years)2013RSV vaccine (adult) (1 - Risk 60-74 years 1- dose series)2013nnual Wellness Visit (G0438)2019Basic Metabolic Panel12/28/COVID-19 Vaccine ( season)2025 12/16/2021, 06/09/2021, 05/26/2021, Additional history existsInfluenza Vaccine (#1)511/07/2022, 05/24/2022, 05/21/2021, Additional history exists Poqcxwcdvvm55/02/553756/3Pneumococcal Vaccine(s) (50+ yrs)Completed 05/24/2023, 08/18/2021 Procedures Procedure NamePriorityDate/TimeAssociated DiagnosisCommentsBASIC METABOLIC PANEL Sbasfhh3412/28/2018 3:41 PM EDT Preop cardiovascular exam PAF (paroxysmal atrial fibrillation) (HCC) Anticoagulated JAVED on CPAP Obesity, unspecified classification, unspecified obesity type, unspecified whether serious comorbidity present from Last 3 Months or Most Recently Relevant to Health Maintenance Results * (ABNORMAL) BASIC METABOLIC PANEL (12/28/2018 3:41 PM EDT)ComponentValueRef RangeTest MethodAnalysis TimePerformed AtPathologist AucnsdlwpXojzfwm76(L)80 - 116 mg/dL12/28/2018 6:07 PM [facility] THXYDREKLUYoonup434423 - 148 mmol/L12/28/2018 6:07 PM [facility] LABORATORYPotassium3.93.3 - 5.3 mmol/L12/28/2018 6:07 PM [facility] LABORATORYCarbon Mfchjfh8868 - 30 mmol/L12/28/2018 6:07 PM [facility] BGOKXFEXXKWrdkzhri94233 - 111 mmol/L 12/28/2018 6:07 PM [facility] LABORATORYBlood Urea Hfjmdndv772 - 22 mg/dL12/28/2018 6:07 PM [facility] LABORATORYCreatinine0.72(L)0.80 - 1.30 mg/dL12/28/2018 6:07 PM [facility] LABORATORYCalcium9.68.4 - 10.4 mg/dL12/28/2018 6:07 PM [facility] LABORATORYAnion Tvz051 - 13012/28/2018 6:07 PM [facility] LABORATORYEstimated GFR (CKD-EPI)98>=60 mL/min/1.06kwm4312/28/2018 6:07 PM [facility] LABORATORYSpecimen (Source) Anatomical Location / LateralityCollection Method / VolumeCollection Time Received TimeBloodBLOOD SPECIMEN / Sqdvzes6512/28/2018 3:41 PM EDT12/28/2018 5:14 PM EDT Narrative Authorizing ProviderResult TypeResult StatusSaima Deyvi DO98 GENERAL LABFinal ResultPerforming OrganizationAddressCity/State/ZIP CodePhone Number [facility] [address] [place] [phone] from Last 3 Months or Most Recently Relevant to Health Maintenance Insurance Care Teams Team MemberRelationshipSpecialtyStart DateEnd Date Emperatriz Carnes DO [address] [place] [address] MulgnxbatNdjudlweoguzxbldf44/6/20 Carlos Nuñez MD [address] [place] [address] PhysicianCardiac Ilshdfjcgjqpnkyvd08/2/24
--- OUTSIDE RECORDS SUMMARY | 2025-05-07 08:21 | XMS_ITS | Clinical Summary ---
Author Organization [facility] Address [address] [place] [address] Care Team Providers Care Social Service Worker Name Role Phone Rocio Bagley MD Primary Care Provider [phone] Allergies No known active allergies Medications MedicationSigDispense QuantityRefillsLast FilledStart DateEnd DateStatus amLODIPine (NORVASC) 5 mg tablet Take 5 mg by mouth once daily.Active aspirin, enteric coated (ASPIRIN, ENTERIC COATED) 81 mg EC tablet Take 81 mg by mouth once daily.Active carvedilol (COREG) 25 mg tablet Take 25 mg by mouth twice daily with meals.Active Peabody-3 Fatty Acids-Vitamin E (FISH OIL) 1,000 mg cap Take 1 capsule by mouth once daily.Active Multivitamin capsule Take 1 capsule by mouth once daily.Active loratadine (CLARITIN) 10 mg tablet Take 10 mg by mouth once daily.Active ascorbic acid (VITAMIN C) 500 mg tablet Take 1,000 mg by mouth once daily.Active cholecalciferol (VITAMIN D) 1,000 unit tab Take 1,000 Units by mouth once daily.Active olopatadine (PATANOL) 0.1 % ophthalmic solution Use 1 Drop in both eyes as needed.Active celecoxib (CELEBREX) 200 mg capsule 12/07/2014ctive Active Problems ProblemNoted DateDiagnosed DateColon ylvgcg3111/07/2014 Family History Medical HistoryRelationCommentsLung cancer [Other]FatherLungBreast CancerMother Colon CancerMotherwith liver metsRelationStatusCommentsDaughterAliveFather (Age 56)Lung CancerMotherDeceased (Age 75)Colon Cancer w/liver mets/Breast CancerSister 1AliveSister 2Alive Social History Tobacco UseTypesPacks/DayYears UsedDateSmoking Tobacco: NeverSmokeless Tobacco: NeverAlcohol UseStandard Drinks/WeekCommentsNo0 (1 standard drink = 0.6 oz pure alcohol)Sex and Gender InformationValueDate RecordedSex Assigned at BirthNot on fileLegal SboVujn6610/24/2014 2:06 PM EDTGender IdentityNot on fileSexual OrientationNot on file Last Filed Vital Signs Vital SignReadingTime TakenCommentsBlood Apfwuuvn83/6506 1:54 PM EDT Urxrn897312/22/2014 1:54 PM BLGChycrinzwfo54.6 ??C (97.8 ??F)12/22/2014 1:54 PM EDTRespiratory Rate--Oxygen Saturation--Inhaled Oxygen Concentration--Weight 134.3 kg (296 lb)12/22/2014 1:54 PM QLSYqxvkd439.4 cm (6' 0.99 )12/22/2014 1:54 PM EDTBody Mass Index39.0612/22/2014 1:54 PM EDT Plan of Treatment Health MaintenanceDue DateLast DoneCommentsAnxiety Whvpsjtwt43/02/1972Depression Kiwvfwpvy36/02/1972Hepatitis C Qkbiicbmo92/02/1972DTaP,Tdap,Td Vaccine (1 - Tdap)1972Lipid Jcbjbavkr63/02/1989CT Nabyauzxijjw24/02/1999Cologuard (FIT-DNA)09/08/19984890Dihvqgcfcsc31/02/1999Colorectal Cancer Ieawxcypt34/02/1999 Diabetes Ekckuehxg13/02/1999Fecal Occult Blood09/08/19981165Tpwkdadnioyzg56/02/1999 Pneumococcal Vaccine: 50+ (1 of 1 - PCV)09/09/2003Shingrix Vaccine (1 of 2) 09/09/2003Advance Directive Fmnhcpkuwb00/01/2025ovid-19 Vaccine (1 - 2024- season)2025Influenza Vaccine (#1)2025RSV Vaccine (1 - 1-dose 75+ series)2028 Insurance Care Teams Team MemberRelationshipSpecialtyStart DateEnd Date Rocio Bagley MD [address] [facility] [place] [phone] PCP - GeneralFamily Medicine10/24/14
--- OUTSIDE RECORDS SUMMARY | 2025-05-07 08:21 | XMS_ITS | Clinical Summary ---
Author Organization [facility] Address [address] [place] [address] Phone Care Team Providers Care Work Order Sorting Clerk Name Role Phone Rocio Bagley MD Primary Care Provider [phone] Social History Tobacco UseTypesPacks/DayYears UsedDateSmoking Tobacco: Never AssessedSex and Gender InformationValueDate RecordedSex Assigned at BirthNot on fileLegal Sex Male06/04/2022 12:38 PM ESTGender IdentityNot on fileSexual OrientationNot on file Plan of Treatment Not on file Care Teams Team MemberRelationshipSpecialtyStart DateEnd Date Rocio Bagley MD [address] [place] [address] [address] [place] [address] [facility]03/28/18
--- OUTSIDE RECORDS SUMMARY | 2025-05-07 08:23 | XMS_ITS | CCD ---
Author Organization [facility] Care Team Providers Care Rigger Helper Name Role Phone PHYSICIAN, DEFAULT Unavailable Unavailable [...] Admitting Unavailable HALKER ., JEET Attending Unavailable [place], DR UNA [employer]ia Consulting Unavailable LIZARRAGA, DR [...] Provider Mariela Mosley APRN Attending Provider [phone] Donald Lizarraga Primary Care Unavailable Mariela Mosley Attending UnavailMariela Castillo Admitting UnavailPrasanth Singletary MD Unavailable Donald Lizarraga MD Primary Care Provider [phone] Merlyn Casillas CMA Attending Provider Unavaila fareed Granda MD, Blessing Attending Provider Donald Lizarraga MD Attending Provider Donald Lizarraga MD Primary Care Provider Peter Auguste DO Attending Provider [phone] Jesus Alberto JACKSON, Andrius Aylin Attending Unavailable Jesus Alberto JACKSON, Andrius Vsonali Attending Unavailable Jesus Alberto JACKSON, Andrius Vytautfeliz Attending Unavailable Jesus Alberto JACKSON, Andrius Vytautfeliz Attending Unavailable Jesus Alberto JACKSON, Andrius Vytautfeliz Attending Unavailable Jesus Alberto JACKSON, Andrius Vsonali Attending Unavailable Donald Lizarraga MD Primary Care Provider Jesus Alberto JACKSON, Blessing Attending Provider Allergies Allergy ClassificationReported Allergen(s)Allergy TypeDate of OnsetReaction(s) Facility (18 sources)Other (Review Comments!); 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: [OTHER (REVIEW COMMENTS!)] Propensity to adverse reactions to ffen81-43-6825LuhjdWvalfz (14 sources)DecongestantDrug izayejb57-47-1799BizyezqTri[facility] (11 sources)DECONGESTANTSPropensity to adverse ulmzpqnrt14-76-0786YlwempsMetrohealth Cleveland Heights Medical CenterComment on above:Onset Date: 05/03/2013 (3 sources)Allergies ReconciledPropensity to adverse reactionsSaint [facility] Other (3 sources)patient allergy list reviewed by nurse or physiciaPropensity to adverse oajdthpfi73-08-3798Ikcxdck:[place] [facility] Other (1 source)No Known Medication Allergies; 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: [No Known Medication Allergies]Propensity to adverse reactions (disorder)[facility] Medications Current Medications MedicationDrug Class(es)DatesSig (Normalized)Sig (Original)acetaminophen 325 mg / oxyCODONE hydrochloride 5 mg oral tablet (12 sources)Opioid AgonistStart: 08-75-8029oqlp 1 tablet by mouth every eight hours as neededOxycodone-Acetaminophen (Percocet) 5-325 mg tablet Active 1 TAB PO Every 8 hours as needed 0 May 05, 2025 12:00am Complies with drug therapy End: 01-75-8473dfbCJPAFX-acetaminophen (PERCOCET) 5-325 MG tablet Indications: Preop cardiovascular exam , PAF (paroxysmal atrial fibrillation) (HCC) , Anticoagulated , JAVED on CPAP , Obesity, unspecified classification, unspecified obesity type, unspecified whether serious comorbidity present oxycodone-acetaminophen 5 mg-325 mg tablet 0 03/29/2023 Discontinuedatorvastatin 20 mg oral tablet (20 sources)HMG-CoA Reductase InhibitorStart: 19-17-6299Kknnutblyueo 20 mg tablet Active 0 .ROUTE .COMPLEX 90 May 06, 2024 8:50pm TAKE 1 TABLET AT BEDTIME Complies with drug therapyStart: 92-05-7470Vvjcadkengch Active 0 .ROUTE .COMPLEX May 06, 2024 8:50pm TAKE 1 TABLET AT BEDTIMEStart: 12-20-2017 End: 66-00-9601pmue 1 tablet by mouth once daily at bedtimeAtorvastatin 20 mg tablet Discontinued 20 MG PO Daily at bedtime October 18, 2023 12:00am May 06, 2024 8:50pm FreeTextSig: TAKE 1 TABLET AT BEDTIME; Note: Source Status: Taking; Refills: 3; Qty: 90 Tablet; Provider: Elham Chan ( ) azithromycin 250 mg oral tablet (2 sources)Macrolide AntimicrobialStart: 19-00-3023Ijxumfuqcsra 250 MG as directed Orally 2 tabs po today, then 1 tab daily x 4 more days for 5 Oct, Activebetamethasone 0.5 mg/ml / clotrimazole 10 mg/ml topical cream (18 sources)Azole Antifungal, CorticosteroidStart: 10-18-2023 End: 06-85-7709Itfsoibdazzo-Betamethasone 1-0.05 % cream Active 1 APPLIC TOPICAL Twice daily as needed for rash 451 April 04, 2024 12:18pm Complies with drug therapyStart: 21-60-9331Rgaohmhzeguw-Betamethasone 1-0.05 % 1 application Externally Twice a day, as needed for 30 days Mar, Activecalcium carbonate 1250 mg oral tablet (20 sources)Start: 10-18-2023 End: 75-18-2417qzec 1 tablet by mouth once dailyCalcium Carbonate 500 mg calcium (1,250 mg) tablet Active 500 MG PO Daily October 19, 2023 12:00am Complies with drug therapyStart: 72-51-2973bjsr 500 mg by mouth twice dailyOs-Avery 500 500 mg, Oral, BID, Refills(s) 0, Prophylaxis Start Date: 04/02/20 Status: Orderedtake 1 tablet by mouth once dailyoscal 500 + D 500 mg / 125 IU 1 tablet orally once a day Activecetirizine hydrochloride 10 mg oral tablet (3 sources)Histamine-1 Receptor AntagonistStart: 79-61-7309plky 1 tablet by mouth once daily as neededCetirizine (Zyrtec) 10 mg tablet Active 10 MG PO Daily as needed February 12, 2025 12:00am Complies with drug therapyflecainide acetate 100 mg oral tablet (20 sources)AntiarrhythmicStart: 53-56-8641rngr 1 tablet by mouth twice daily flecainide (TAMBOCOR) 100 MG tablet Indications: Persistent atrial fibrillation (HCC) Take 1 Tabletby mouth 2 times daily. 180 Tablet 3 09/27/2024 ActiveStart: 09-89-1068vevimnahmi (TAMBOCOR) 100 MG tablet Indications: Persistent atrial fibrillation (HCC) TAKE 1 TABLETTWICE A DAY 180 Tablet 3 12/28/2023 ActiveStart: 17-42-1242aqyg 0.5 tablet by mouth every twelve hoursFlecainide 100 mg tablet Active MG PO October 18, 2023 12:00am FreeTextSi.5 tablet Orally every12 hrs; Note: Source Status: Taking; Provider: Elham Chan ( ) Complies with drug therapyStart: 09-03-2020 End: 28-19-9802yipu 1 tablet by mouth twice dailyflecainide (TAMBOCOR) 100 MG tablet Indications: Persistent atrial fibrillation (HCC) Take 1 Tabletby mouth 2 times daily. 180 Tablet 3 02/14/2023 05/15/2023 ActiveStart: 02-47-6215jxmv 0.5 tablet by mouth every twelve hoursFlecainide Active MG PO October 18, 2023 12:00am FreeTextSi.5 tablet Orally every 12 hrs; Note:Source Status: Taking; Provider: Elham Chan ( )take 0.5 tablet by mouth every twelve hoursFlecainide Acetate 100 MG 0.5 tablet Orally every 12 hrs Activegabapentin 300 mg oral capsule (19 sources)Anti-epileptic AgentStart: 52-40-3667Ouattdzsnk 300 mg capsule Active MG PO October 18, 2023 12:00am FreeTextSi qam and 1 qpm and 2 qhs Orally 4 times a day; Note: Source Status: Taking; Provider: Elham Chan ( ) Complies with drug therapyStart: 82-51-5767Rrpaejqkyf Active MG PO October 18, 2023 12:00am FreeTextSi qam and 1 qpm and 2 qhs Orally 4 times a day; Note: Source Status: Taking; Provider: Elham Chan ( ) Start: 39-65-4117zfnuvwzpmq Refills(s) 0, Neuropathy Start Date: 07/29/22 Status: OrderedStart: 01-59-7362crjjuqfise Refills(s) 0 Start Date: 07/29/22 Status: OrderedGabapentin 300 MG 1 qam and 1 qpm and 2 qhs Orally 4 times a day Active take 1 capsule by mouth every twenty-four hoursGabapentin 100 MG 1 capsule Orally Once a day ActivehydroCHLOROthiazide 25 mg oral tablet (20 sources)Thiazide DiureticStart: 02-19-2024 End: 28-57-7181Ywcwpcmmahxcplrslbo 25 mg tablet Active 0 .ROUTE .COMPLEX 90 February 27, 2025 1:51pm TAKE 1 TABLET DAILY Complies with drug therapyStart: 11-19-2018 End: 01-30-8001hxdq 1 tablet by mouth once dailyHydrochlorothiazide 25 mg tablet Discontinued 25 MG PO Daily October 18, 2023 12:00am February 19, 2024 11:43am FreeTextSig: TAKE 1 TABLET DAILY; Note: Source Status: Taking; Refills: 3; Qty: 90 Tablet; Provider: Elham Chan ( )Immodium A-D 2 mg Cap (2 sources)Start: 21-20-3971idhn 1 tablet by mouth every four hours as needed Immodium A-D 2 mg Cap = 1 tab(s), Oral, q4hr, PRN for loose stools, Refills(s) 0 Start Date: 12/20/17 Status: Orderedlisinopril 40 mg oral tablet (20 sources)Angiotensin Converting Enzyme InhibitorStart: 09-07-2023 End: 34-88-7046Wvrbtjjkrv 40 mg tablet Active 0 .ROUTE .COMPLEX 90 June 12, 2024 12:05pm TAKE 1 TABLET DAILY Complies with drug therapyStart: 83-15-3602Yqobsebekw 40 mg tablet Active 0 .ROUTE .COMPLEX 90 September 07, 2023 3:57pm TAKE 1 TABLET DAILYStart: 77-99-9662Gsckicztvr Active 0 .ROUTE .COMPLEX 90 September 07, 2023 4:57pm TAKE 1 TABLET DAILYStart: 12-20-2017 End: 32-25-7201glog 1 tablet by mouth once dailyLisinopril 40 mg tablet Discontinued 40 MG PO Daily September 07, 2023 1:00am September 07, 2023 4 :57pmloperamide hydrochloride 2 mg oral capsule (1 source)Opioid AgonistStart: 02-55-2696bnro 1 tablet by mouth every four hours as neededImmodium A-D 2 mg Cap = 1 tab(s), Oral, q4hr, PRN for loose stools, Refills(s) 0 Start Date: 12/20/17 Status: Orderedmagnesium sulfate 225 MG / potassium chloride 188 MG / sodium sulfate 1479 MG Oral Tablet [Sutab] (1 source)Start: 37-66-6416ppvb 1 tablet by mouth onceSutab oral tablet See Instructions, 1 EA, Refill(s) 0, KP, Please follow instructions per packaging and physician's handout, [facility]/pharmacy #[id number], 183.8, cm, 07/29/22 14:15:00 EST, Height/Length Dosing, 145.3, kg, 07/29/22 14:15:00 EST, Weight Dosing Start Date: 07/29/22 Status: OrderedmethylPREDNISolone 4 mg oral tablet (2 sources)CorticosteroidStart: 73-23-8634bsjnkeTBOPUESseytu 4 MG as directed Orally for 6 days Oct, Kryqxk75 hr metoprolol succinate 100 mg extended release oral tablet (20 sources)beta-Adrenergic BlockerStart: 11-19-2018 End: 28-05-4932wuxt 1 tablet by mouth once dailymetoprolol (TOPROL-XL) 100 mg XL tablet Take 1 Tablet by mouth daily. 90 Tablet 3 09/27/2024 ActiveStart: 81-62-9704cluu 1 tablet by mouth once dailymetoprolol tartrate 100 mg Tab 100 mg = 1 tab(s), Oral, Daily, Refills(s) 0, High blood pressure Start Date: 12/20/17 Status: OrderedMultivitamin (Multiple Vitamins) tablet (8 sources)Start: 40-52-6814afzz 1 tablet by mouth once dailyMultivitamin (Multiple Vitamins) tablet Active 1 TAB PO Daily October 18, 2023 12:00am Complies with drug therapyStart: 72-67-2982jxit 1 tablet by mouth once daily Multivitamin (Multiple Vitamins) tablet Active 1 TAB PO Daily October 17, 2023 11:00pmStart: 17-06-8836weai 1 tablet by mouth once dailyMultivitamin (Multiple Vitamins) tablet Active 1 TAB PO Daily October 18, 2023 12:00amMultivitamins and Minerals (3 sources)Start: 87-30-7138Ifhjqmgoqgwwk and Minerals Oral, Daily, Refill(s) 0, Prophylaxis Start Date: 12/20/17 Status: OrderedOlopatadine 0.1 % drops (9 sources)Start: 53-79-1035cdfz 1 drop(s) into the eye(s) twice daily Olopatadine 0.1 % drops Active 1 DROPS OPHTHALMIC Twice daily December 25, 2023 2:36pm FreeTextSig:INSTILL 1 DROP INTO AFFECTED EYE TWICE A DAY FOR 30 DAYS; Note: Source Status: Taking; Refills: 3; Qty: 5 Milliliter; Provider: Elham Chan ( )Start: 10-19-2023 End: 80-64-2103vfto 1 drop(s) into the eye(s) twice dailyOlopatadine 0.1 % drops Discontinued 1 DROPS OPHTHALMIC Twice daily October 19, 2023 9:48am December 082023 2:36pm FreeTextSig: INSTILL 1 DROP INTO AFFECTED EYE TWICE A DAY FOR 30 DAYS; Note: Source Status: Taking; Refills: 3; Qty: 5 Milliliter; Provider: Elham Chan ( )Start: 10-18-2023 End: 27-45-0220bgax 1 drop(s) into the eye(s) twice dailyOlopatadine 0.1 % drops Discontinued DROPS OPHTHALMIC October 17, 2023 11:00pm October 19, 2023 9:52am FreeTextSig: INSTILL 1 DROP INTO AFFECTED EYE TWICE A DAY FOR 30 DAYS; Note: Source Status: Taking; Refills: 3; Qty: 5 Milliliter; Provider: Elham Chan ( )microencapsulated potassium chloride 20 meq extended release oral tablet (20 sources)Start: 10-19-2023 End: 78-29-0385Xealombbs Chloride (Klor-Con M20) 20 mEq tablet,ER particles/crystals Active 20 MEQ PO Twice daily October 19, 2023 12:00am Complies with drug therapyStart: 04-05-2023 End: 43-00-1783Martyqsrv Chloride (Klor-Con M20) 20 mEq tablet,ER particles/crystals Active 20 MEQ PO Twice daily October 19, 2023 12:00amStart: 09-03-2020 End: 38-02-4770Gujg-Con M20 20 MEQ controlled release tablet Indications: PAF (paroxysmal atrial fibrillation) (HCC) , Anticoagulated , Preop cardiovascular exam , JAVED on CPAP , Obesity, unspecified classification,unspecified obesity type, unspecified whether serious comorbidity present TAKE 1 TABLET TWICE A DAY 180 Tablet 3 03/01/2022 ActiveStart: 49-98-5090Vtxt-Con 40 mEq, Oral, BID, Refills(s) 0, Prophylaxis Start Date: 12/20/17 Status: OrderedPotassium Chloride 40 MEQ/15ML (20%) SOLN Indications: Preop cardiovascular exam , PAF (paroxysmal atrial fibrillation) , Anticoagulated , JAVED on CPAP , Obesity, unspecified classification, unspecified obesity type, unspecified whether serious comorbidity present 15 mL. Activetake 1 tablet by mouth every twenty-four hours Potassium Chloride Marya ER 20 MEQ 1 tablet with food Orally Once a day Active take 1 tablet by mouth every twenty-four hoursKlor-Con M20 20 MEQ 1 tablet with food Orally Once a day ActivePsyllium Seed (Sugar) (Metamucil (Sugar)) powder (8 sources)Start: 48-42-8625Ddjufbcz Seed (Sugar) (Metamucil (Sugar)) powder Active 1 TBSP PO Daily October 18, 2023 12:00am Complies with drug therapyStart: 04-60-4689Lpfjvueo Seed (Sugar) (Metamucil (Sugar)) powder Active 1 TBSP PO Daily October 17, 2023 11:00pmStart: 35-85-1252Yknoumcu Seed (Sugar) (Metamucil (Sugar)) powder Active 1 TBSP PO Daily October 18, 2023 12:00amsildenafil 25 mg oral tablet (9 sources)Phosphodiesterase 5 InhibitorStart: 17-07-8566omtcfqjxqc citrate (VIAGRA) 25 MG tablet Take 25 mg by mouth. 01/24/2023 ActiveSodium Sulfate-Mag Sulfate-KCl (Sutab) 3302-592-930 MG TABS (7 sources)Start: 28-11-0324Byhgad Sulfate-Mag Sulfate-KCl (Sutab) 4075-833-034 MG TABS Take by mouth. 07/29/2022 ActiveStart: 94-10-6509Wpessv Sulfate-Mag Sulfate-KCl (Sutab) 3615-934-765 MG TABS Take by mouth. 0 07/29/2022 ActiveSuper B Complex (6 sources)Start: 01-02-9454lzti 1 tablet by mouth once dailySuper B Complex 1 tab(s), Oral, Daily, Refill(s) 0, Prophylaxis Start Date: 04/02/20 Status: OrderedtiZANidine 4 mg oral tablet (10 sources)Central alpha-2 Adrenergic AgonistStart: 02-74-8556qchv 1 tablet by mouth once daily at bedtime as neededTizanidine 4 mg tablet Active 4 MG PO Once October 18, 2023 12:00am FreeTextSi tablet as neededOrally qhs prn; Note: Source Status: Taking; Provider: Elham Ruano Complies with drug therapytake 1 tablet by mouth once daily at bedtime as neededtiZANidine HCl 4 MG 1 tablet as needed Orally qhs prn Activewarfarin sodium 5 mg oral tablet (20 sources)Vitamin K AntagonistStart: 91-86-3390Qwieedfv Active MG PO As Directed October 18, 2023 12:00am FreeTextSig: as directed orally; Note: Source Status: Taking; Provider: Elham Chan ( )Start: 07-29-2022 warfarin Refills(s) 0, Blood Thinner Start Date: 07/29/22 Status: OrderedStart: 90-32-3813kjotcwbg Refills(s) 0 Start Date: 07/29/22 Status: OrderedStart: 09-03-2020 End: 90-41-6064Esxomhxe 5 mg tablet Active MG PO As Directed October 18, 2023 12:00am FreeTextSig: as directed orally; Note: Source Status: Taking; Provider: Elham Chan ( ) Complies with drug therapy Completed/Discontinued Medications MedicationDrug Class(es)DatesSig (Normalized)Sig (Original)acetaminophen 325 mg / HYDROcodone bitartrate 5 mg oral tablet (11 sources)Opioid Agonist End: 79-74-9767dzkfwtjauak-acetaminophen (NORCO) 5-325 MG per tablet Indications: Preop cardiovascular exam , PAF (paroxysmal atrial fibrillation) ([facility]) , Anticoagulated , JAVED on CPAP , Obesity, unspecified classification, unspecified obesity type, unspecified whether serious comorbidity present hydrocodone 5 mg-acetaminophen 325 mg tablet 0 03/29/2023 Qpvgvluyazazdue563079 200 actuat albuterol 0.09 mg/actuat metered dose inhaler (7 sources)beta2-Adrenergic AgonistStart: 05-29-2024 End: 61-12-0257Yssakqoiz Sulfate 90 mcg/actuation HFA aerosol inhaler Discontinued 1 INH INHALATION Every 6 hours May 29, 2024 1:00am February 12, 2025 9:29amStart: 05-08-2024 End: 77-89-3369Kwpjqbswi Sulfate 90 mcg/actuation HFA aerosol inhaler Discontinued 2 INH INHALATION EVERY 4-6 HOURS as needed for shortness of breath or wheezing 6.7 0 May 08, 2024 12:00am May 260:20amAlbuterol Sulfate 90 mcg/actuation HFA aerosol inhaler (3 sources)Start: 05-08-2024 End: 75-69-0580Fddoqhzll Sulfate 90 mcg/actuation HFA aerosol inhaler Discontinued 2 INH INHALATION EVERY 4-6 HOURS as needed for shortness of breath or wheezing 6.7 May 07, 2024 11:00pm May 26, 2024 9:20amamLODIPine 10 mg oral tablet (20 sources)Dihydropyridine Calcium Channel BlockerStart: 10-18-2023 End: 37-26-4750aybb 1 tablet by mouth once dailyAmlodipine 10 mg tablet Discontinued 10 MG PO Daily October 18, 2023 12:00am October 19, 2023 10:34am AMLODIPINE BESYLATE ORAL amLODIPine Besylate Not-Taking ActiveamLODIPine Besylate Not-Taking/PRNAMLODIPINE BESYLATE ORAL amLODIPine Besylate Not-Taking 0 ActiveamLODIPine Besylate Not-Takingamoxicillin 875 mg oral tablet (6 sources)Penicillin-class AntibacterialStart: 50-71-0490pomb 1 tablet by mouth every twelve hoursAmoxicillin 875 MG 1 tablet Orally Twice a day for 10 day(s) Mar, Not-Taking/PRNascorbic acid 500 mg oral capsule (20 sources)Vitamin CStart: 10-18-2023 End: 50-14-2282Pjulvthv Acid (Vitamin C) 500 mg capsule Discontinued MG PO October 18, 2023 12:00am October 19, 2023 10:33amStart: 10-18-2023 End: 60-85-1706Dkhjyiay Acid (Vitamin C) Discontinued MG PO October 18, 2023 12:00am October 19, 2023 10:33amVitamin C Not-Taking/PRN End: 31-29-5920wabf 1 tablet by mouth once dailyAscorbic Acid 1000 MG TABS Vitamin C 1,000 mg tablet Take 1 tablet every day by oral route. 0 03/29/2023 DiscontinuedVitamin C Wib-CfrwavAlipn-29 (6 sources)Aspir-81 Not-Taking/PRNAspir-81 Not-Takingaspirin 81 mg delayed release oral tablet (8 sources)Platelet Aggregation Inhibitor, Nonsteroidal Anti-inflammatory Drug Start: 10-18-2023 End: 26-29-8720ptjd 1 tablet by mouth once dailyAspirin 81 mg tablet,delayed release (DR/EC) Discontinued 81 MG PO Daily October 18, 2023 12:00am October 19, 2023 10:33ambaclofen 10 mg oral tablet (20 sources)gamma-Aminobutyric Acid-ergic AgonistStart: 11-13-2018 End: 42-22-6578fjpk 1 tablet by mouth at bedtimebaclofen (LIORESAL) 10 MG tablet Indications: Preop cardiovascular exam , PAF (paroxysmal atrial fibrillation) (HCC) , Anticoagulated , JAVED on CPAP , Obesity, unspecified classification, unspecified obesity type, unspecified whether serious comorbidity present Take 10 mg by mouth at bedtime. 4 11/13/2018 04/15/2024 Discontinuedtake 1 tablet by mouth every twelve hoursBaclofen 10 MG 1 tablet as needed Orally Twice a day Activebenzonatate 200 mg oral capsule (12 sources)Non-narcotic AntitussiveStart: 10-19-2023 End: 97-24-9070Aossldogikp 200 mg capsule Discontinued 200 MG PO 2-3 TIMES PER DAY as needed for cough 30 0 May 29, 2024 1:00am February 12, 2025 9:29am carvedilol 3.125 mg oral tablet (14 sources)alpha-Adrenergic Yadiel, beta-Adrenergic BlockerStart: 10-18-2023 End: 22-80-4955bubm 1 tablet by mouth twice daily at mealtimeCarvedilol 3.125 mg tablet Discontinued 3.125 MG PO Twice daily October 18, 2023 12:00am October 19, 2023 10:34am must administer with a meal/foodCarvedilol Not-Taking/PRN Carvedilol Not-Takingcefdinir 300 mg oral capsule (12 sources)Cephalosporin AntibacterialStart: 10-19-2023 End: 28-68-1573zznl 1 capsule by mouth twice dailyCefdinir 300 mg capsule Discontinued 300 MG PO Twice daily 14 0 May 29, 2024 11:13am February 12, 2025 9:30amcholecalciferol 0.05 mg oral capsule (11 sources)Vitamin D End: 49-38-5318qece 1 capsule by mouth once dailyCholecalciferol 50 MCG (2000 UT) CAPS Vitamin D3 50 mcg (2,000 unit) capsule Take 1 capsule every day by oral route. 0 03/29/2023 Discontinueddocosahexaenoic acid 120 mg / eicosapentaenoic acid 180 mg oral capsule (8 sources)Start: 10-18-2023 End: 41-39-6993kuns 1 capsule by mouth once dailyDocosahexaenoic Acid-Epa (Fish Oil) 120-180 mg capsule Discontinued 1 CAP PO Daily October 172:00am October 19, 2023 10:35amdoxycycline hyclate 100 mg oral capsule (6 sources)Tetracycline-class DrugStart: 05-08-2024 End: 62-24-9332lgzq 1 capsule by mouth twice dailyDoxycycline Hyclate 100 mg capsule Discontinued 100 MG PO Twice daily 14 7 0 May 08, 2024 12:00am May 26, 2024 10:21amFish Oils (6 sources)Fish Oil Not-Taking/PRNFish Oil Not-Takingloratadine 10 mg oral tablet (20 sources)Start: 12-20-2017 End: 30-35-9262evlt 1 tablet by mouth once dailyLoratadine 10 mg tablet Discontinued 10 MG PO Daily October 18, 2023 12:00am February 12, 2025 9:32am FreeTextSi tablet once a day; Note: Source Status: Taking; Provider: Elham Chan ( )Loratadine Not-TakingMulti Vitamin Mens (6 sources)Multi Vitamin Mens Not-Taking/PRNMulti Vitamin Mens Not-Taking olopatadine 1 mg/ml ophthalmic solution (20 sources)Histamine-1 Receptor InhibitorStart: 09-89-6717ajey 1 drop(s) into the eye(s) twice dailyOlopatadine Active 1 DROPS OPHTHALMIC Twice daily 5 December 25, 2023 3:36pm FreeTextSig: INSTILL 1 DROP INTO AFFECTED EYE TWICE A DAY FOR 30 DAYS; Note: Source Status: Taking; Refills: 3; Qty: 5 Milliliter; Provider: Elham Chan ( )Start: 10-19-2023 End: 50-11-5344hngv 1 drop(s) into the eye(s) twice dailyOlopatadine Discontinued 1 DROPS OPHTHALMIC Twice daily October 19, 2023 10:48am December 25, 2023 3:36pm FreeTextSig: INSTILL 1 DROP INTO AFFECTED EYE TWICE A DAY FOR 30 DAYS; Note: Source Status: Taking; Refills: 3; Qty: 5 Milliliter; Provider: Elham Chan ( )Start: 33-71-4085wldo 1 drop(s) into the eye(s) twice dailyOlopatadine Active 1 DROPS OPHTHALMIC Twice daily October 19, 2023 10:48am FreeTextSig: INSTILL 1DROP INTO AFFECTED EYE TWICE A DAY FOR 30 DAYS; Note: Source Status: Taking; Refills: 3; Qty: 5 Milliliter; Provider: Elham Chan ( )Start: 10-18-2023 End: 05-90-7021tvgc 1 drop(s) into the eye(s) twice dailyOlopatadine 0.1 % drops Discontinued 1 DROPS OPHTHALMIC Twice daily 5 October 19, 2023 10:48am December 25, 2023 3:36pm FreeTextSig: INSTILL 1 DROP INTO AFFECTED EYE TWICE A DAY FOR 30 DAYS; Note: Source Status: Taking; Refills: 3; Qty: 5 Milliliter; Provider: Elham Chan ( )Start: 10-18-2023 End: 59-29-6864bjck 1 drop(s) into the eye(s) twice dailyOlopatadine Discontinued DROPS OPHTHALMIC October 18, 2023 12:00am October 19, 2023 10:52am FreeTextSig: INSTILL 1 DROP INTO AFFECTED EYE TWICE A DAY FOR 30 DAYS; Note: Source Status: Taking; Refills: 3; Qty: 5 Milliliter; Provider: Elham Chan ( )Start: 63-08-6487iempvxbepkr 0.7% ophthalmic solution Refill(s) 0 Start Date: 07/29/22 Status: Orderedolopatadine (PATANOL) 0.1 % ophthalmic solution Indications: Preop cardiovascular exam , PAF (paroxysmal atrial fibrillation) , Anticoagulated , JAVED on CPAP , Obesity, unspecified classification, unspecified obesity type, unspecified whether serious comorbidity present olopatadine 0.1 % eye drops ActiveOlopatadine HCl 0.1 % INSTILL 1 DROP INTO AFFECTED EYE TWICE A DAY FOR 30 DAYS for 30 Active Olopatadine HCl 0.1 % INSTILL 1 DROP INTO AFFECTED EYE TWICE A DAY FOR 30 DAYS for 30 Activeondansetron 4 mg disintegrating oral tablet (11 sources)Serotonin-3 Receptor Antagonist End: 06-49-7509bgejqgxcets (ZOFRAN-ODT) 4 MG disintegrating tablet Indications: Preop cardiovascular exam , PAF (paroxysmal atrial fibrillation) (HCC) , Anticoagulated , JAVED on CPAP , Obesity, unspecified classification, unspecified obesity type, unspecified whether serious comorbidity present ondansetron 4 mg disintegrating tablet 0 03/29/2023 DiscontinuedpredniSONE 20 mg oral tablet (20 sources)Start: 05-26-2024 End: 14-93-6306Mbahycinhf 20 mg tablet Discontinued 0 PO Daily 11 9 May 26, 2024 1:00am February 12, 2025 9:31am Take 2 tabs x 3 days, take 1 tab x 3 days, take 1/2 tab x 3 days orally daily;Start: 05-08-2024 End: 47-75-7153cabu 1 tablet by mouth once dailyPrednisone 50 mg tablet Discontinued 50 MG PO Daily 5 5 0 May 08, 2024 12:00am May 10:20am End: 40-97-5137ycknxqRZMR (DELTASONE) 20 MG tablet Indications: Preop cardiovascular exam , PAF (paroxysmal atrialfibrillation) (HCC) , Anticoagulated , JAVED on CPAP , Obesity, unspecified classification, unspecified obesity type, unspecified whether serious comorbidity present prednisone 20 mg tablet 0 03/29/2023 DiscontinuedPsyllium (6 sources)Metamucil 48.57 % Orally Not-Taking/PRNMetamucil 48.57 % Orally Not-Takingtamsulosin hydrochloride 0.4 mg oral capsule (15 sources)alpha-Adrenergic Yadiel End: 66-71-8206gmtq 1 capsule by mouth once dailytamsulosin (FLOMAX) 0.4 MG capsule Indications: Preop cardiovascular exam , PAF (paroxysmal atrial f ibrillation) (HCC) , Anticoagulated , JAVED on CPAP , Obesity, unspecified classification, unspecified obesity type, unspecified whether serious comorbidity present tamsulosin 0.4 mg capsule Take 1 capsule every day by oral route for 90 days. 0 03/29/2023 Discontinued Problems Active Problems Problem ClassificationProblemDateDocumented DateEpisodic/ChronicAcute bronchitis (6 sources)Acute bronchitis; 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: [Acute bronchitis]Onset: 11-08-2013 EpisodicCancer of colon (20 sources)Malignant tumor of colon; 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: [Malignant neoplasm of colon, unspecified]Onset: 695274-51-2448NqyydkiTuyjwag dysrhythmias (20 sources)Paroxysmal atrial fibrillation; 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: [Paroxysmal atrial fibrillation]Onset: 12-28-2018 Resolved: 42-05-5042StgdxnuXkvkxxm obstructive pulmonary disease and bronchiectasis (12 sources)Bronchitis, not specified as acute or chronic; 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: [Bronchitis]EpisodicComplications of surgical procedures or medical care (7 sources)Short bowel syndrome; 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: [Postsurgical malabsorption, not elsewhere classified]ChronicDisorders of lipid metabolism (3 sources)Hyperlipidemia; 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: [Hyperlipidemia, unspecified]Chronic Essential hypertension (20 sources)Hypertensive disorder; 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: [Essential (primary) hypertension]Onset: 165704-95-5630UexygzvTnoytlyvjmwuk and screening for infectious disease (3 sources)Vaccination given; 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: [Encounter for immunization]Episodic Mycoses (9 sources)Candidiasis of skin; 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: [Candidiasis of skin and nail] EpisodicOsteoarthritis (20 sources)Arthritis; 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: [Unspecified osteoarthritis, unspecified site]Onset: 907546-21-3516ExflotdOjaxr aftercare (20 sources)Drug therapy finding; 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: [intermediate project manager (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]Onset: 07-57-5756PqklxsoeVpgpq aftercare (1 source)FCI (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; 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: [HYPERBARIC TECHNICIAN CURRNT USE 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]Onset: 08-58-7362DbbvktamFhvme aftercare (5 sources)Encounter for therapeutic drug level monitoring; 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: [ENC THERAPEUTC DRUG LEVL MONITORING]Onset: 78-86-0989LexjxdhxIndcz and unspecified benign neoplasm (6 sources)Tubular adenoma of colon; 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: [Tubular adenoma of colon] EpisodicOther and unspecified benign neoplasm (1 source)Polyp of colon; 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: [Polyp of colon]Onset: 10-06-2022 EpisodicOther circulatory disease (3 sources)Elevated blood-pressure reading without diagnosis of hypertension; 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: [Elevated blood-pressure reading, without diagnosis of hypertension]EpisodicOther congenital anomalies (3 sources)Congenital deformity of spine; 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]Onset: 00-04-2408NzamuciWsbcl connective tissue disease (6 sources)Peripheral neuralgia; 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: [Neuralgia and neuritis, unspecified]EpisodicOther connective tissue disease (5 sources)Other muscle spasm; 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: [OTHER MUSCLE SPASM]Onset: 78-93-1777GewntfytJlzmz connective tissue disease (3 sources)Neuralgia; 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: [Neuralgia and neuritis, unspecified] EpisodicOther diseases of kidney and ureters (1 source)Urinary tract obstruction; 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: [Other obstructive and reflux uropathy]Onset: 34-91-3068VrpxjgnvQurzo disorders of stomach and duodenum (1 source)Other diseases of stomach and duodenum; 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: [Other diseases of stomach and duodenum]Onset: 52-19-2727PxouvefwNlrko lower respiratory disease (3 sources)Cough; 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: [Cough]85-72-9920VamccpgpPsnvw male genital disorders (10 sources)Male erectile dysfunction, unspecified; 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: [Erectile dysfunction]Onset: 60-95-9801XshbuwyLltih male genital disorders (6 sources)Zapweaoyc39-91-7196MaopzcqSavar nervous system disorders (1 source)Other chronic pain; 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: [OTHER CHRONIC PAIN]Onset: 70-51-8285NhmumfnUiqkc non-traumatic joint disorders (3 sources)Pain in right hip joint; 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: [Pain in right hip]Episodic Other non-traumatic joint disorders (3 sources)Arthralgia of the lower leg; 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: [Pain in right knee] EpisodicOther nutritional; endocrine; and metabolic disorders (7 sources)Obesity; 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: [Obesity, unspecified]ChronicOther nutritional; endocrine; and metabolic disorders (6 sources)Body mass index 40+ - severely obese; 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: [Body mass index (BMI) 40.0-44.9, adult]Onset: 65-03-6896HsddcbgFdwoypqai; thrombophlebitis and thromboembolism (1 source)Chronic embolism and thrombosis of right femoral vein; Translations: [CHRON EMBO THROMB RT FEMORAL VEIN]Onset: 19-44-1599WjyaggyBmvqxzugl heart disease (9 sources)Pulmonary hypertension; Translations: [Pulmonary hypertension, unspecified]ChronicPulmonary heart disease (14 sources)Pulmonary embolism; Translations: [Other pulmonary embolism without acute cor pulmonale]Onset: 57-29-2274UtjxvorwGhumltzn codes; unclassified (13 sources)Sleep apnea; Translations: [Sleep apnea, unspecified]Onset: 505038-95-8500IagtmjuIfzvldyq codes; unclassified (20 sources)Obstructive sleep apnea syndrome; Translations: [Obstructive sleep apnea (adult) (pediatric)]ChronicResidual codes; unclassified (1 source)Obstructive sleep apnea (adult) (pediatric)ChronicResidual codes; unclassified (1 source)Family history of malignant neoplasm of digestive organ; Translations: [Family history of malignantneoplasm of digestive organs]Onset: 07-29-2022 EpisodicSpondylosis; intervertebral disc disorders; other back problems (15 sources)Spondylosis without myelopathy or radiculopathy, cervical region; Translations: [Sacroiliitis, not elsewhere classified]Onset: 26-92-6309Kxpdlhi Spondylosis; intervertebral disc disorders; other back problems (16 sources)Radiculopathy, lumbar region; Translations: [Spinal stenosis, lumbar region without neurogenic claudication]Onset: 646103-06-6107Bapyelue Unclassified (6 sources)Asymptomatic microscopic wuwgfetff31-97-2163Txwfnpdrfxep (6 sources)Patient encounter xdeesz32-65-9706Knrcylmswfro (5 sources)History of malignant neoplasm of colon and/or utomjq13-44-1592 Unclassified (4 sources)LOW BACK PAIN, UNSPECIFIED; Translations: [LOW BACK PAIN, UNSPECIFIED]Onset: 78-89-1085Xxgdqdqalfdx (1 source)Cough, unspecified; Translations: [Cough, unspecified]Onset: 32-45-9497Jkgalshinshl (2 sources)M16.0 - Bilateral primary osteoarthritis of hip,M17.0 - Bilateral primary osteoarthritis of knee,M54.50 - Low back pain, unspecified Past or Other Problems Problem ClassificationProblemDateDocumented DateEpisodic/ChronicCancer of rectum and anus (8 sources)History of malignant neoplasm of rectum; Translations: [Personal history of other malignant neoplasm of rectum, rectosigmoid junction, and anus] Onset: 93-90-2714JumjktzwUnwelafecs and other anemia (3 sources)Pernicious anemia; Translations: [Vitamin B12 deficiency anemia due to intrinsic factor deficiency]Onset: 67-30-7878LjupdusiBrdfjjbjuqxel symptoms and ill-defined conditions (20 sources)Blood in urine; Translations: [Jonathan hematuria]Onset: 05-27-2020 Resolved: 655694-18-7412FcpzxsscYzodgwxnjwk of prostate (20 sources)Benign prostatic hypertrophy with outflow obstruction; Translations: [Benign prostatic hyperplasia with lower urinary tract symptoms]Onset: 09-15-2017 Resolved: 64-40-4056YujcufrLyypwidomtqv; infection of eye (except that caused by tuberculosis or sexually transmitteddisease) (3 sources)External hordeolum; Translations: [Hordeolum externum unspecified eye, unspecified eyelid]Onset: 66-59-1916TcebgnhmVyixqamxgdho conditions of male genital organs (3 sources)Acute prostatitis; Translations: [Acute prostatitis]Onset: 05-30-2018 EpisodicOther gastrointestinal disorders (3 sources)Diarrhea; Translations: [Diarrhea, unspecified]Onset: 03-03-2016 EpisodicOther lower respiratory disease (3 sources)Dyspnea; Translations: [Dyspnea, unspecified]Onset: 04-18-2016 EpisodicOther nervous system disorders (3 sources)Altered sensation of skin; Translations: [Disturbance of skin sensation]Onset: 14-70-5965YrlnqhlcAnird non-traumatic joint disorders (3 sources)Arthralgia of the pelvic region and thigh; Translations: [Pain in joint, pelvic region and thigh]Onset: 44-66-7359OgabhsusNsllm screening for suspected conditions (not mental disorders or infectious disease) (20 sources)Raised prostate specific antigen; Translations: [Elevated prostate specific antigen [PSA]]Onset: 31-57-1310SndwzwngDiodm upper respiratory infections (3 sources)Acute sinusitis; Translations: [Acute sinusitis, unspecified]Onset: 64-72-7991XypxvnjkQmbt-; endo-; and myocarditis; cardiomyopathy (except that caused by tuberculosis or sexually transmitted disease) (3 sources)Disorder of pericardium; Translations: [Pericardial effusion (noninflammatory)]Onset: 18-14-1846TzwjwhbwKyhoierhn; thrombophlebitis and thromboembolism (9 sources)Deep venous thrombosis of lower extremity; Translations: [Acute embolism and thrombosis of unspecified deep veins of right lower extremity] Onset: 069040-42-6236AxcrtwyaYldylzmj codes; unclassified (18 sources)Family history of cancer of colon; Translations: [Family hx of colon cancer]Onset: 314562-00-7471WkqhcuixQlkyccyytjkr (1 source)LOW BACK PAIN, UNSPECIFIED; Translations: [LOW BACK PAIN, UNSPECIFIED] Onset: 99-99-3444Bjprblbrxkan (3 sources)Vaccine product containing only acellular Bordetella pertussis and Clostridium tetani and Corynebacterium diphtheriae antigens (medicinal product); Translations: [Ugwhxxuhty-mmrltij-yowecbhdp, combined [DTP] [DtaP]]Onset: 02-62-9452Gujuh infection (1 source)COVID-19 Results Test NameValueInterpretationReference RangeFacilityINR in Platelet poor plasma by Coagulation assayOrdered By: Blessing Granda on 52-09-0720YWL Coag (PPP) [Relative time]2.57 {INR}[facility] CenterComment on above: DESIRED INR:2.0-3.0 CONDITIONS NOT LISTED BELOW2.5-3.5 FOR PROSTHETIC HEART VALVE REPLACEMENT2.5-3.5 RECURRENT THROMBOSISProthrombin time (PT)Ordered By: Blessing Granda on 11-72-3693GK Coag (PPP) [Time]24.8 sHigh9.0-11.6FTrinity Health SystemINR in Platelet poor plasma by Coagulation assayOrdered By: Blessing Granda on 53-57-6710ISZ Coag (PPP) [Relative time]2.50 {INR} [facility] CenterComment on above:DESIRED INR:2.0-3.0 CONDITIONS NOT LISTED BELOW2.5-3.5 FOR PROSTHETIC HEART VALVE REPLACEMENT2.5-3.5 RECURRENT THROMBOSISProthrombin time (PT)Ordered By: Blessing Granda on 12-78-3669ZL Coag (PPP) [Time]24.2 sHigh9.0-11.6FTrinity Health SystemINR in Platelet poor plasma by Coagulation assayon 34-95-3273RNK Coag (PPP) [Relative time]2.24 {INR}[facility] CenterComment on above:DESIRED INR:2.0-3.0 CONDITIONS NOT LISTED BELOW2.5-3.5 FOR PROSTHETIC HEART VALVE REPLACEMENT2.5-3.5 RECURRENT THROMBOSISProthrombin time (PT)on 38-28-6240CD Coag (PPP) [Time]21.9 sHigh9.0-11.6FTrinity Health SystemX-ray report Ordered By: Lupis Bryan on 28-09-4625Vkdcd reportKIN[facility]ED [facility] Main [place] [id number] XRay Report Signed Patient: Evangelist Ybarra MR#: [id number] : 1955 Acct:[id number] Age/Sex: 68 / M ADM Date: 4 Loc: XDUCLY Room: Type: [facility] Attending Dr: Mariela Mosley APRN Copies [...] Lupis Bryan M.D.05/26/2024 10:23 AM Dictation Location: [place] [address] Transcribed By: [facility] 05/26/24 1023 Dictated By: Lupis Bryan MD 05/26/24 102 Signed By: 05/26/24 [facility]3 [facility] Work Phone: XR chest 2V*on 53-29-0067NL chest 2V*[facility] Main [place] [address] [place] [address] XRay Report Signed Patient: Evangelist Ybarra MR#: [id number] : 1955 Acct:[id number] Age/Sex: 68 / M ADM Date: 05/26/24 Loc: XDUC Room: Type: [facility] Attending Dr: Mariela Mosley SUPERVISOR EVAPORATOR Copies to: Mariela Mosley APRN Ordering Provider: [...] Lupis Bryan M.D.05/26/2024 10:23 AM Dictation Location: [place] [address] Transcribed By: LIV 05/26/24 1023 Dictated By: Lupis Bryan MD 05/26/24 1022 Signed By: 05/26/24 1023NoAtrium Health Wake Forest Baptist Physician GroupInfluenza virus A and B and SARS-CoV-2 (COVID-19) RNA panel - Respiratory system specon 55-74-3525Faxvwohkw virus A and B RNA and SARS-CoV-2 (COVID-19) N gene panel ANNIE+probe (Resp) Influenza virus A and B and SARS-CoV-2 (COVID-19) RNA panel - Respiratory system specCincinnati Children'S Hospital Medical CenterLaboratory - Microbiology and Antimicrobial susceptibilityon 66-05-8137JWII-CoV-2 (COVID-19) RNA ANNIE+probe Ql (Unsp spec)NegativeCincinnati Children'S Hospital Medical CenterNo Panel Informationon 91-09-9375OUR Influenza B (ANNIE)NegativeCincinnati Children'S Hospital Medical CenterINR in Platelet poor plasma by Coagulation assayon 19-75-8174MAW Coag (PPP) [Relative time]2.42 {INR}[facility] CenterComment on above:DESIRED INR:2.0-3.0 CONDITIONS NOT LISTED BELOW2.5-3.5 FOR PROSTHETIC HEART VALVE REPLACEMENT2.5-3.5 RECURRENT THROMBOSISINR Coag (PPP) [Relative time]INR in Platelet poor plasma by Coagulation assayCincinnati Children'S Hospital Medical Center Comment on above:DESIRED INR:2.0-3.0 CONDITIONS NOT LISTED BELOW2.5-3.5 FOR PROSTHETIC HEART VALVE REPLACEMENT2.5-3.5 RECURRENT THROMBOSISProthrombin time (PT)on 96-90-8541SH Coag (PPP) [Time]23.5 sHigh9.0-11.6FTrinity Health SystemPT Coag (PPP) [Time]Prothrombin time (PT)High9.0-11.6FTrinity Health SystemProgress Noteson 01-53-3257Xmicxurmpnbat Authentication Interface Message TextEP video visit to establish care Mr. Evangelist [...] last visit, he had lexiscan at [facility] on 09/2016 that showe no reversible findings, [...] in 1 year Prior to your visit, AnyPerkKDW shared information with you about the risks [...] 180 Tablet 3 Sodium Sulfate-Mag Sulfate-KCl (Sutab) 6846-969-194 MG TABS Take by mouth. AMLODIPINE BESYLATE [...] declined Stress: No Stress Concern Present (03/27/2023) [employer] [place] [employer] - Occupational Stress Questionnaire Feeling of Stress : Not at all Social Connections: Moderately Integrated (03/27/2023) Social Connection and Isolation Panel [NHANES] Frequency of Communicatio (more content not included)...NormalThe [facility] SystemAmbulatory Visit Summaryon 62-80-9771Zpzysloccj Visit SummaryAmbulatory Visit Summary EVANGELIST YBARRA :1955 Visit Date:01/23/2024 [...] When: Only if needed Where: [address] [place] [address] [id number] Medications What How Much When Instructions Unchanged [...] Tablets By Mouth Every day Contact prescribing physicianif questions or concerns Unchanged olopatadine ophthalmic (olopatadine [...] Mouth As Directed as needed for for erectiledysfunction Take 1 hour before sexual activity. Start [...] ? Obesity. ? Ne (more content not included)...[facility] HospitalProvider Letteron 04-84-5017Exhstipb LetterProvider Letter DONALD LIZARRAGA, [address] [place] [address] Re: EVANGELIST YBARRA Date of : [address] ELHAM JACKSON, EVANGELIST SWANSON was evaluated at [facility] 01/30/2024 10:00:00 As this patient has been stable, they will be released back to your care. We request that you continue to check PSA annually for prostate cancer screening Should the patient develop new symptoms, worsening condition, or abnormal imaging/labs in the future, do not hesitate to refer them back. Thanks! Provider Signature: Cathie Hernandez PA-C Physician Engineering Supervisor [facility] [address] [place] [address] [facility] HospitalUrology Office/Clinic Note on 93-99-5308Xkreiao Office/Clinic NoteUrology Office/Clinic Note Chief Complaint 1 year follow up with PSA HPI Staff 68 year old patient presents today for a 1 year follow up with PSA. [place] [facility] [place], [facility], or [facility]. DX: BPH, ED & Elevated PSA TURP [...] prn at prior OV pending clearance from codifier but pt never filled script. Not a [...] GARCIA, CATHIE Ruano, URL Only if needed [address] [place] [address] [phone] Additional Instructions: Patient Education Erectile Dysfunction Documentation recorded by the juan david Caceres accurately reflects the services(s) I performed anddecisions made by me. Authenticated by Cathie Hernandez [...] History Alcohol - De (more content not included)...[facility] Comment on above:Result Comment: Electronically Signed By: TIANA GARCIA, CATHIE Ruano\.br\Date and Time Signed: 01/22/2414:33 EDT\.br\Electronically Co-Signed By: Krystyna Caceres\.br\Date and Time Co-Signed: 01/23/24 14:31 EDTURINALYSISOrdered By: Sweetie Ma on 35-74-8014Dxpjcqdi LM Ql (Urine sed)Trace /HPFNormal Trace/HPFFTMC UA Auto SSBilirubin Ql (U)Negative (01/24/23 10:19 AM)NormalNegativeFT UA Auto SSClarity (U)Clear (01/24/23 10:19 AM)NormalClearFMERCY HOS[facility] [place] [facility] Auto SSColor (U)Yellow (01/24/23 10:19 AM)NormalYellowFT UA Auto SSEpithelial cells.squamous LM.HPF (Urine sed) [#/Area]0-2 /HPFNormal0-2/HPFFTMC UA Auto SSGlucose Test strip (U) [Mass/Vol]Negative (01/24/23 10:19 AM)NormalNegativeFT UA Auto SSHemoglobin Ql (U)Negative (01/24/23 10:19 AM)NormalNegativeMUSCOGEE UA Auto SSKetones (U) [Mass/Vol]Negative (01/24/23 10:19 AM)NormalNegativeMUSCOGEE UA Auto SSLithium.plasma/[place].RBC (Bld) [Mass ratio]0-3 /HPFNormal0-3/HPFFTMC UA Auto SSNitrite Ql (U)Negative (01/24/23 10:19 AM)NormalNegativeMUSCOGEE UA Auto SSpH (U)5.0 *NA* (01/24/23 10:19 AM)Invalid Interpretation Code5.0 - 9.0FT UA Auto SSProtein (U) [Mass/Vol]Negative (01/24/23 10:19 AM)NormalNegativeMUSCOGEE UA Auto SSSpecific gravity (U) [Rel density]>=1.030 *NA* (01/24/23 10:19 AM)Invalid Interpretation Code1.005 - 1.030FT UA Auto SSUA Spec DescRandom Urine (01/24/23 10:19 AM)NormalFT UA Auto SSUrobilinogen Qn (U)0.4145873 {Anne'U}/dLNormal0.0 - 1.0 EU/dLSOMERVILLE HOSPITAL Auto SSWBC Auto Ql (U)Negative (01/24/23 10:19 AM)NormalNegativeSOMERVILLE HOSPITAL Auto SSWBC LM.HPF (Urine sed) [#/Area]0- 5 /HPFNormal0-5/HPFMUSCOGEE UA Auto SSXR CSPINE MIN 4 VIEWSon 53-97-3176AD CSPINE MIN 4 VIEWSEXAMINATION: XR CSPINE MIN 4 VIEWS HISTORY: Cervical [...] Electronically authenticated by: UNA SEARS Date: 2022-11-10 09:46NormalThe [facility] AUTO DIFFon 49-72-6623BOQY #0.0 103/ulNormal0.0-0.1[facility] Barber[facility] CampusComment on above:Performed By: #### CBC #### Laboratory [address] [place] [address] Dr. Jason PearsonBasophils/100 WBC (Bld)0.7 %Normal0.2-2.0[facility] Comment on above:Performed By: #### CBC #### Laboratory [address] [place] [address] Dr. Jason Lee #0.2 103/ulNormal0.0-0.7The Comment on above: Performed By: #### CBC #### Laboratory [address] [place] [address] Dr. Jason Taylorosinophils/100 WBC (Bld)3.7 %Normal0.9-7.0[facility] Comment on above:Performed By: #### CBC #### Laboratory [address] [place] [address] Dr. Yilan ChangErythrocyte distribution width (RBC) [Ratio]14.0 %Xoasgt78.0-15.0 The Comment on above:Performed By: #### CBC #### Laboratory [address] [place] [address] Dr. Jason PerasonHematocrit (Bld) [Volume fraction]41.0 %Critically low42.0-54.0 The Comment on above:Performed By: #### CBC #### Laboratory [address] [place] [address] Dr. Jason PearsonHemoglobin (Bld) [Mass/Vol]13.8 g/dLCritically low14.0-18.0The Comment on above:Performed By: #### CBC #### Laboratory [address] [place] [address] Dr. Jason Little #0.01 10e3/ulNormal0.00-0.03The Comment on above:Performed By: #### CBC #### Laboratory [address] [place] [address] Dr. Jason Little %0.2 %Normal0.0-0.5The Comment on above: Performed By: #### CBC #### Laboratory [address] [place] [address] Dr. Jason Vazquez #1.3 103/ulNormal1.2-3.8The Comment on above:Performed By: #### CBC #### Laboratory [address] [place] [address] Dr. Jason Laihocytes/100 WBC (Bld)22.3 %Wvfdib36.5-60.0The Comment on above:Performed By: #### CBC #### Laboratory [address] [place] [address] Dr. Jason MalikUAL DIFF REQNONormalThe Comment on above: Performed By: #### CBC #### Laboratory [address] [place] [address] Dr. Jason Mathur (RBC) [Entitic mass]32.6 hsLigbue47.9-34.0The Comment on above:Performed By: #### CBC #### Laboratory [address] [place] [address] Dr. Jason Palma (RBC) [Mass/Vol]33.7 g/iWFzjwrz85.9-35.2The Comment on above:Performed By: #### CBC #### Laboratory [address] [place] [address] Dr. Jason Palma (RBC) [Entitic vol]96.9 fLCritically high80.0-94.0The Comment on above:Performed By: #### CBC #### Laboratory [address] [place] [address] Dr. Jason Cook #0.6 103/ulNormal0.3-0.8The Comment on above:Performed By: #### CBC #### Laboratory [address] [place] [address] Dr. Jason Coronaocytes/100 WBC (Bld)10.5 %Normal1.7-12.0The Comment on above:Performed By: #### CBC #### Laboratory [address] [place] [address] Dr. Jason Pearson #3.7 103/ulNormal1.4-6.5The Comment on above:Performed By: #### CBC #### Laboratory [address] [place] [address] Dr. Jason Henriquezutrophils/100 WBC (Bld)62.6 %Wgyvzl10.0-75.0The Comment on above:Performed By: #### CBC #### Laboratory [address] [place] [address] Dr. Jason Honeycuttlet mean volume (Bld) [Entitic vol]9.9 fLNormal9.5-13.5The Comment on above:Performed By: #### CBC #### Laboratory [address] [place] [address] [address] Jason PearsonPLT181 103/zjDpxwzv217-438Mdz Comment on above: Performed By: #### CBC #### Laboratory [address] [place] [address] [address] Jason PearsonRBC4.23 106/ulCritically low4.70-6.10The Comment on above:Performed By: #### CBC #### Laboratory [address] [place] [address] [address] Jason PearsonWBC5.9 103/ulNormal4.0-11.0The [facility] on above: Performed By: #### CBC #### Laboratory [address] [place] [address] [address] Jason GarciasID PROFILEon 87-24-4020ZKFM-HDL RATIO NORMSBarnesville HospitalComment on above:Result Comment: 3.3 - 4.4 LOW RISK 4.4 - 7.1 AVERAGE RISK 7.1 - 11.0 MODERATE RISK >11.0 HIGH RISKPerformed By: #### CMP, LIPID #### [id number] [place], [place] [address]Dr. Yilan ChangCholesterol [Mass/Vol]163 mg/dLNormal<=200The [facility] on above:Performed By: #### CMP, LIPID #### [id number] [place] [address]Dr. Yilan ChangCholesterol in HDL [Mass/Vol]49 mg/tHBeqsha17-32Wiy Comment on above: Performed By: #### CMP, LIPID #### [id number] [place] [address]Dr. Yilan ChangCholesterol in LDL [Mass/Vol]74.6 mg/dL NormalSumma Health Barberton CampusComrehabilitation institute of [place] on above:Performed By: #### CMP, LIPID #### [id number] [place] [address]Dr. Yilan ChangCholesterol.total/Cholesterol in HDL [Mass ratio]3.3 {ratio}NormalSumma Health Barberton CampusComment on above:Performed By: #### CMP, LIPID #### [id number] [place] [address]Dr. Jason MichelHDL NORMAL> or = 60 mg/dl - LOW CARDIOVASCULAR RISK <40 mg/dl - HIGH CARDIOVASCULAR RISKLake County Memorial Hospital - WestComment on above:Performed By: #### CMP, LIPID #### [id number] [place] [address]Dr. Jason ChangLDL CALC NORMALSEE BELOWLake County Memorial Hospital - WestComment on above: Result Comment: <100 mg/dl OPTIMAL 100 - 129 mg/dl NEAR OR ABOVE OPTIMAL 130 - 159 mg/dl BORDERLINE HIGH 160 - 189 mg/dl HIGH >190 mg/dl VERY HIGHPerformed By: #### CMP, LIPID #### [id number] [place] [address]Dr. Jason PearsonTriglyceride [Mass/Vol]197 mg/dLCritically high<=150The Comment on above:Performed By: #### CMP, LIPID #### [id number] [place] [address]Dr. Jason MichelVLDL CALC39.4 mg/dLNoMemorial Health System Marietta Memorial HospitalComment on above:Performed By: #### CMP, LIPID #### [id number] [place] [address]Dr. Jason PearsonMICROALBUMIN, RAND URon 83-46-5979vHCE6.3 mg/LNormal<=30.0 The Comment on above:Performed By: #### MALBR #### [id number] [place] [address]Dr. Jason PearsonPROF 14(COMP METB)on 36-72-5620Ijitozt [Mass/Vol]3.7 g/dLNormal3.4-5.0The Comment on above:Performed By: #### CMP, LIPID #### Laboratory [address] [address] [address] Jason PearsonAlbumin/Globulin [Mass ratio]1.0 {ratio}NormalSumma Health Barberton CampusComment on above:Performed By: #### CMP, LIPID #### Laboratory [address] [address] [address] Jason Tilley [Catalytic activity/Vol]56 U/BWukbev28-861Hux Comment on above:Performed By: #### CMP, LIPID #### Laboratory [address] [address] [address] Jason Maria [Catalytic activity/Vol]43 U/TBrjtze54-62Wet Comment on above:Performed By: #### CMP, LIPID #### Laboratory [address] [place] [address] Dr. Jason Martinson gap [Moles/Vol]11.2 mmol/LNormalSumma Health Barberton Campus Comment on above:Performed By: #### CMP, LIPID #### Laboratory [address] [place] [address] Dr. Jason PearsonAST [Catalytic activity/Vol]24 U/JIssuam86-13Tig [facility] Barberton Campusment on above:Performed By: #### CMP, LIPID #### Laboratory [address] [place] [address] Dr. Jason PearsonBilirubin [Mass/Vol]0.9 mg/dLNormal0.2-1.0[facility] Comment on above:Performed By: #### CMP, LIPID #### Laboratory [address] [place] [address] Dr. Jason PearsonCalcium [Mass/Vol]9.6 mg/dLNormal8.5-10.1[facility] Comment on above:Performed By: #### CMP, LIPID #### Laboratory [address] [place] [address] Dr. Jason PearsonChloride [Moles/Vol]106 mmol/VXesvei28-277MspSumma Health Barberton Campus Comment on above:Performed By: #### CMP, LIPID #### Laboratory [address] [place] [address] Dr. Jason PearsonCO2 [Moles/Vol]30.1 mmol/DRpniro75.0-32.0The Comment on above:Performed By: #### CMP, LIPID #### Laboratory [address] [address] [address] Jason PearsonCreatinine [Mass/Vol]1.00 mg/dLNormal0.70-1.30The Comment on above:Performed By: #### CMP, LIPID #### Laboratory [address] [place] [address] Dr. Jason TaylorGFR-AF UKRAINIAN>60Normal>=60The Comment on above:Performed By: #### CMP, LIPID #### Laboratory [address] [place] [address] Dr. Jason TaylorGFR-NON AF UKRAINIAN>60Normal>=60The Comment on above:Performed By: #### CMP, LIPID #### Laboratory [address] [place] [address] Dr. Jason PearsonGlobulin (S) [Mass/Vol]3.6 g/dLNormalThe Comment on above:Performed By: #### CMP, LIPID #### Laboratory [address] [place] [address] Dr. Jason PearsonGlucose [Mass/Vol]110 mg/dLCritically goff61-787Xoq Comment on above:Performed By: #### CMP, LIPID #### Laboratory [address] [place] [address] Dr. Jason PearsonPotassium [Moles/Vol]4.3 mmol/LNormal3.5-5.1The Comment on above:Performed By: #### CMP, LIPID #### Laboratory [address] [place] [address] Dr. Jason PearsonProtein [Mass/Vol]7.3 g/dLNormal6.4-8.2The Comment on above:Performed By: #### CMP, LIPID #### Laboratory [address] [place] [address] Dr. Jason Milesum [Moles/Vol]143 mmol/MAbxwsp183-949VctSumma Health Barberton Campus Comment on above:Performed By: #### CMP, LIPID #### Laboratory [address] [address] [address] Jason Maldonado nitrogen [Mass/Vol]15.0 mg/dLNormal7.0-18.0[facility] Barber[facility] CampusComment on above:Performed By: #### CMP, LIPID #### Laboratory [address] [address] [address] Jason Maldonado nitrogen/Creatinine [Mass ratio]15.0 mg/mgNoMemorial Health System Marietta Memorial HospitalComment on above:Performed By: #### CMP, LIPID #### Laboratory [address] [place] [address] Dr. Jason Barnes [phone] Coag (PPP) [Relative time]1.11 {INR} NormalSumma Health Barberton CampusComment on above:Performed By: #### PT #### [address] [address]Dr. Jason Bourne GUIDELINESSEE BELOWLake County Memorial Hospital - WestComment on above:Result Comment: DESIRED INR: 2.0 - 3.0 CONDITIONS NOT LISTED BELOW 2.5 - 3.5 FOR PROSTHETIC HEART VALVE REPLACEMENT 2.5 - 3.5 RECURRENT THROMBOSISPerformed By: #### PT #### [address] [address]Dr. Sierra Obrien Coag (PPP) [Time]11.9 sCritically high9.0-11.6ThAshtabula General Hospital Comment on above:Performed By: #### PT #### [address] [address]Dr. Jason Barnes [phone] Coag (PPP) [Relative time]1.32 {INR}NormalSumma Health Barberton CampusComment on above: Performed By: #### PT #### Laboratory [address] [place] [address] Dr. Jason Bourne GUIDELINESSEE The [facility] HospitalComment on above:Result Comment: DESIRED INR: 2.0 - 3.0 CONDITIONS NOT LISTED BELOW 2.5 - 3.5 FOR PROSTHETIC HEART VALVE REPLACEMENT 2.5 - 3.5 RECURRENT THROMBOSIS Performed By: #### PT #### Laboratory [address] [place] [address] Dr. Jason Obrien Coag (PPP) [Time]14.0 sCritically high9.0-11.6ThAshtabula General HospitalComment on above:Performed By: #### PT #### Laboratory [address] [place] [address] Dr. Jason PearsonPROTIMEon [phone] Coag (PPP) [Relative time]1.08 {INR} NormalSumma Health Barberton CampusComrehabilitation institute of [place] on above:Performed By: #### PT #### Laboratory [address] [place] [address] Dr. Jason Bourne GUIDELINESSEE [facility] HospitalComment on above:Result Comment: DESIRED INR: 2.0 - 3.0 CONDITIONS NOT LISTED BELOW 2.5 - 3.5 FOR PROSTHETIC HEART VALVE REPLACEMENT 2.5 - 3.5 RECURRENT THROMBOSIS Performed By: #### PT #### Laboratory [address] [place] [address] Dr. Jason Obrien Coag (PPP) [Time]11.6 sNormal9.0-11.6ThAshtabula General Hospital Comment on above:Performed By: #### PT #### Laboratory [address] [place] [address] Dr. Jason PearsonXR HIP RT INJon [id number] HIP RT INJEXAMINATION: XR HIP RT INJ HISTORY: Osteoarthritis COMPARISON: [...] remained the same pre and post injection (310). COMPLICATIONS: None. OTHER: Negative. IMPRESSION: 1. Technically successful right hip injection without any immediate pain relief. Clinical follow-up recommended. Electronically authenticated by: RUPERT MOON Date: 2022-02-07 11:09[facility] WestInitial Visit (Gastroenterology)on [id number] Visit (Gastroenterology)Chief ComplaintReferral from Dr. Bunch, for bump found [...] from the patient and documented on the [facility] health history questionnaire. Pertinent positives and negativesare detailed in the history of present illness. Please see scanned records dated for today for the full review of systems. Past Medical History History of atrial fibrillation (V12.59) (Z86.79) History of hypertension (V12.59) (Z86.79) History of malignant neoplasm of colon (V10.05) (Z85.038) FamilyHistory Family history of liver cancer (V16.0) (Z80.0) Family history of lung cancer (V16.1) (Z80.1) Social History Never a smoker No alcohol use Allergies No Known Drug Allergies Recorded By: Michelle Rodriguez; 03/28/2018 9:14:43 AM Current Meds Atorvastatin Calcium 20 MG Oral Tablet; TAKE 1 TABLET D AILY;Therapy: (Recorded:97Nax2225) to Recorded Dispense: 0 Days ; #: Sufficient Tablet; Refill: 0; KP = N; Record; Last Updated By: Toyin Angeles; 03/28/2018 9:14:26 AM Flecainide Acetate 100 MG Oral Tablet; TAKE 1 TABLET EVERY 12 HOURS DAILY;Therapy: (Recorded:58Oyd1348) to Recorded Dispense: 0 Days ; #: Sufficient Tablet; Refill: 0; KP = N; Record; Last Updated By: Toyin Angeles; 03/28/2018 9:14:26 AM HydroCHLOROthiazide 25 MG Oral Tablet; TAKE 1 TABLET DAILY;Therapy: (Recorded:88Otz6569) to Recorded Dispense: 0 Days ; #: Sufficient Tablet; Refill: 0; KP = N; Record; Last Updated By: Toyin Angeles; 03/28/2018 9:14:26 AM Imodium A-D CAPS;Therapy: (Recorded:38Rra8694) to Recorded Dispense: 0 Days ; #: Sufficient CAPS; Refill: 0; KP = N; Record; Last Updated By: Toyin Angeles; 03/28/2018 9:14:26 AM Klor-Con M20 20 MEQ Oral Tablet Extended Release; TAKE 2 TABLETS TWICE DAILY;Therapy: (Recorded:55Aem5611) to Recorded Dispense: 0 Days ; #: Sufficient Tablet Extended Release; Refill: 0; KP = N; Record; Last Updated By: Toyin Angeles; 03/28/2018 9:14:26 AM Lisinopril 40 MG Oral Tablet; TAKE 1 TABLET DAILY;Therapy: (Recorded:23Ifo7681) to Recorded Dispense: 0 Days ; #: Sufficient Tablet; Refill: 0; KP = N; Record; Last Updated By: Toyin Angeles; 03/28/2018 9:14:26 AM Loratadine 10 MG Oral Tablet; TAKE 1 TABLET DAILY;Therapy: (Recorded:24Api8975) to Recorded Dispense: 0 Days ; #: Sufficient Tablet; Refill: 0; KP = N; Record; Last Updated By: Toyin Angeles; 03/28/2018 9:14:26 AM Metoprolol Tartrate 100 MG Oral Tablet; TAKE 1 TABLET DAILY;Therapy: (Recorded:28Uit5159) to Recorded Dispense: 0 Days ; #: Sufficient Tablet; Refill: 0; KP = N; Record; Last Updated By: Toyin Angeles; 03/28/2018 9:14:26 AM Multivitamins TABS;Therapy: (Recorded:28Mar2018)to Recorded Dispense: 0 Days ; #: Sufficient TABS; Refill: 0; KP = N; Record; Last Updated By: Toyin Rainey; 03/28/2018 9:14:26 AM Tamsulosin HCl - 0.4 [...] Recorded Dispense: 0 Days ; #: Sufficient Tablet;Refill: 0; KP = N; Record; Last Updated By: Toyin Angeles; 03/28/2018 9:14:26 AM Vitals Vital Signs Recorded: 28Mar2018 09:12AMHeart Lbfq71Pastgfjwejz47Mmngfkxf443Mlwkguwjr35Opgtqo8 ft 2 pcZkqptw967 lb 6 ozBMI Sdhdvkhgnz81.52BSA Calculated2.67 Physical ExamConstitutional General appearance: In no [...] 11;For: Bile salt-induced diarrhea; KP = N; VerifiedTrans[id number]; Last Updated By: [facility]; 03/28/2018 9:44:38 AM Provider ImpressionsSubmucosal duodenal lesion [...] MG Oral Tablet; TAKE 1 TABLET DAILY;Therapy: (Recorded:80Bss4469) to RecordedCholestyramine Light 4 GM Oral Packet; MIX THE CONTENTS OF 1 POWDER PACKETWITH 2-6 OZ OF NONCARBONATED BEVERAGE AND SWALLOW ONCE DAILY;Therapy: 78Wby7641 to (Evaluate:41Tko6016) Requested for: 35Jbu4823; LastRx:37Xbx6644 OrderedFlecainide Acetate 100 MG Oral Tablet; TAKE 1 TABLET EVERY 12 HOURS DAILY;Therapy: (Recorded:47Lnj5692) to RecordedHydroCHLOROthiazide 25 MG Oral Tablet; TAKE 1 TABLET DAILY;Therapy: (Recorded:65Iga2356) to RecordedImodium A-D CAPS (Loperamide HCl);Therapy: (Recorded:78Our1844) to RecordedKlor-Con M20 20 MEQ Oral Tablet Extended Release; TAKE 2 TABLETS TWICE DAILY;Therapy: (Recorded:81Gmk1827) to RecordedLisinopril 40 MG Oral Tablet; TAKE 1 TABLET DAILY;Therapy: (Re corded:88Whc9301) to RecordedLoratadine 10 MG Oral Tablet; TAKE 1 TABLET DAILY;Therapy: (Recorded:34Lds9241) to RecordedMetoprolol Tartrate 100 MG Oral Tablet; TAKE 1 TABLET DAILY;Therapy: (Recorded:07Quc1062) to RecordedMultivitamins TABS;Therapy: (Recorded:45Sad2123) to RecordedTamsulosin HCl - 0.4 MG Oral Capsule;Therapy: (Recorded:66Eau0202) to RecordedVitamin B-12 ER 1500 MCG Oral Tablet Extended Release;Therapy: (Recorded:07Dyn7440) to RecordedVitamin D3 2000 UNIT Oral Tablet;Therapy: (Recorded:82Hfh2150) to RecordedWarfarin Sodium 5 MG Oral Tablet; TAKE 1 TABLET DAILY;Therapy: (Recorded :05Klb2350) to Recorded Signatures Electronically signed by : Devin Greer DO; Mar 28 2018 9:51AM EST (Author)Normal Touchworks Vital Signs Date TimeVital SignValuePerforming PtyettmotCsflkgeq25-99-0161 11:20-0400Body .96 cmDonald Lizarraga MD Work Phone: [phone]10-27-2025 11:20-0400 Body mass index (BMI) [Ratio]38 kg/d6UwsdnoDonald Lizarraga MD Work Phone: [phone]43[facility]10-27-2025 11:20-0400 Body mjqedf692.26 kgDonald Lizarraga MD Work Phone: [phone]08-25-2025 10:51-0400 Body .96 cmDonald Lizarraga MD Work Phone: [phone]62[facility]08-25-2025 10:51-0400 Body mass index (BMI) [Ratio]38.1 kg/j0YjsiekDonald Lizarraga MD Work Phone: [phone]08-25-2025 10:51-0400 Body iiuand643.7 kgDonald Lizarraga MD Work Phone: [phone]08-06-2025 09:22-0400 Body affnbi182.96 cmDonald Lizarraga MD Work Phone: [phone] [place], [place] [address]708-06-2025 09:22-0400 Body mass index (BMI) [Ratio]38.1 kg/r9TzwcsvDonald Lizarraga MD Work Phone: [phone]08-06-2025 09:22-0400 Body xtnsyu768.71 kgDonald Lizarraga MD Work Phone: [phone])[address]170 [address]08-06-2025 09:22-0400 Diastolic blood vyzaqnhx45 mm[Hg]Donald Lizarraga MD Work Phone: [phone])[address]08-06-2025 09:22-0400 Heart rate61 /Edis Lizarraga MD Work Phone: [phone]08-06-2025 09:22-0400 Systolic blood mm[Hg]Donald Lizarraga MD Work Phone: [phone] [place], [place] 3242811-20-2024 09:52-0500 Body arioph459.96 cmDonald Lizarraga MD Work Phone: [phone] [place], [place] 3242811-20-2024 09:52-0500 Body mass index (BMI) [Ratio]38.4 kg/s2EomrzbDonald Lizarraga MD Work Phone: [phone] [place], [place] 3242811-20-2024 09:52-0500 Body jlnpstopnbb92.5 [degF]Donald Lizarraga MD Work Phone: [phone])[address]11-20-2024 09:52-0500 Body igpisr186.62 kgDonald Lizarraga MD Work Phone: [phone]11-20-2024 09:52-0500 Diastolic blood qeiizxyd97 mm[Hg]Donald Lizarraga MD Work Phone: [phone])[address]11-20-2024 09:52-0500 Heart rate73 /Edis Lizarraga MD Work Phone: [phone]11-20-2024 09:52-0500 SaO2% (BldA) [Mass fraction]98 %Donald Lizarraga MD Work Phone: [phone]11-20-2024 09:52-0500 Systolic blood hqxqkpva361 mm[Hg]Donald Lizarraga MD Work Phone: [phone] [place], [place] 3242811-17-2024 09:18-0500 Body ziview308.96 cmDonald Lizarraga MD Work Phone: [phone] [place], [place] 3242811-17-2024 09:18-0500 Body mass index (BMI) [Ratio]38.5 kg/h2SaehgnDonald Lizarraga MD Work Phone: [phone] [place], [place] 3242811-17-2024 09:18-0500 Body wsyamqmopiv82.1 [degF]Donald Lizarraga MD Work Phone: [phone] [place], [place] 3242811-17-2024 09:18-0500 Body pxttvo926.13 kgDonald Lizarraga MD Work Phone: [phone] [place], [place] 3242811-17-2024 09:18-0500 Diastolic blood qbuyfgyd73 mm[Hg]Donald Lizarraga MD Work Phone: [phone] [place], [place] 3242811-17-2024 09:18-0500 Heart rate73 /Edis Lizarraga MD Work Phone: [phone] [place], [place] 3242811-17-2024 09:18-0500 Respiratory rate18 /Edis Lizarraga MD Work Phone: [phone] [place], [place] 3242811-17-2024 09:18-0500 SaO2% (BldA) [Mass fraction]96 %Donald Lizarraga MD Work Phone: [phone] [place], [place] 3242811-17-2024 09:18-0500 Systolic blood mjnucccn680 mm[Hg]Donald Lizarraga MD Work Phone: [phone] [place], [place] 3242810-30-2024 09:24-0400 Body mzityx371.96 cmC[facility]10-30-2024 09:24-0400Body mass index (BMI) [Ratio]38.8 kg/d1LsaykptptCinc[facility]10-30-2024 09:24-0400Body nigqkmqcoov86 [degF][facility]10-30-2024 09:24-0400Body wipixk733.15 kgCincinnati [facility]'S Hospital [facility] Center10-30-2024 09:24-0400Diastolic blood ehpvcsms92 mm[Hg][facility] 05-08-2024 09:24-0400Heart rate70 /[facility] 05-08-2024 09:24-0400Respiratory rate18 /[facility] 05-08-2024 09:24-2046LvD7% (BldA) [Mass fraction]98 %[facility]10-30-2024 09:24-0400Systolic blood nrpubsjw520 mm[Hg][facility]07-16-2024 14:11-0400Blood Pressure LocationJENNIFER TIANA [facility]07-16-2024 14:11-0400Body xhujvcdjctc21.88 [degF]CATHIE TIANA [facility]07-16-2024 14:11-0400Diastolic blood unufoxzg08 mm[Hg]CATHIE TIANA [facility]07-16-2024 14:11-0400Heart rate67 /minJENNIFER TIANA [facility]07-16-2024 14:11-0400Respiratory rate16 /minJENNIFER TIANA [facility]07-16-2024 14:11-0400Systolic blood ybehuswk720 mm[Hg]CATHIE TIANA [facility]04-11-2024 10:19-0400Body .96 cmC[facility]04-11-2024 10:19-0400Body mass index (BMI) [Ratio]40.1 kg/k7FruzncipwC[facility]04-11-2024 10:040Body .63 kgC[facility]04-11-2024 10:0400Diastolic blood tbsnzvym76 mm[Hg] [facility]04-11-2024 10:040Heart rate71 /minCincinnati Children'S Hospital [facility] Center04-11-2024 10:9751EkQ2% (BldA) [Mass fraction]98 % [facility]04-11-2024 10:19-040Systolic blood rqougmyf231 mm[Hg][facility]01-04-2024 15:30-0500Body wdwzax658.96 cm Donald Lizarraga Other [employer] Other 01-04-2024 15:30-0500Body mass index (BMI) [Ratio] 40.18 kg/c3LvbutiDonald Lizarraga Other [employer] Other 01-04-2024 15:30-0500Body okuedd282.98 kgDonald Lizarraga Other [employer] Other 01-04-2024 15:30-0500Diastolic blood jkuypuwi53 mm[Hg] Donald Lizarraga Other [employer] Other 01-04-2024 15:30-0500Systolic blood gjqgarth821 mm[Hg] Donald Lizarraga Other [employer] Other 07-18-2023 10:00-0400Blood Pressure LocationJENNIFER TIANA [facility]07-18-2023 10:00-0400Diastolic blood rnvasmuk43 mm[Hg]CATHIE TIANA [facility]07-18-2023 10:00-0400Heart rate72 /minJENNIFER TIANA [facility]07-18-2023 10:00-0400Respiratory rate16 /minJENNIFER TIANA [facility]07-18-2023 10:00-0400Systolic blood tiwnxpoi254 mm[Hg]CATHIE TIANA [facility]03-30-2023 10:17-0400Diastolic blood ibajnjly73 mm[Hg]Daigle SALAM [facility]03-30-2023 10:17-0400Heart rate69 /minMaher SALAM [facility]03-30-2023 10:17-0400 Respiratory rate16 /minMaher SALAM [facility]03-30-2023 10:17-6508CjL6% (BldA) [Mass fraction]99 %Daigle SALAM [facility]03-30-2023 10:17-0400 Systolic blood athgfhkg234 mm[Hg]Daigle SALAM [facility]03-30-2023 10:05-0400 Diastolic blood kygtdtjo51 mm[Hg]Daigle SALAM [facility]03-30-2023 10:05-0400Heart rate67 /minMaher SALAM [facility]03-30-2023 10:05-0400 Respiratory rate18 /minMaher SALAM [facility]03-30-2023 10:05-4680FdR1% (BldA) [Mass fraction]99 %Oxana SWIFTAM [facility]03-30-2023 10:05-0400 Systolic blood gtufrzpb908 mm[Hg]Daigle SALAM [facility]03-30-2023 10:00-0400 Diastolic blood pklbudpo15 mm[Hg]Daigle SALAM [facility]03-30-2023 10:00-0400Heart rate66 /minMaher SALAM [facility]03-30-2023 10:00-0400 Systolic blood smhcovca648 mm[Hg]Daigle SALAM [facility]03-30-2023 09:55-0400 Respiratory rate16 /minMaher SALAM [facility]03-30-2023 09:52-0400Body xlibnuhrrfe49.7 [degF]Daigle SALAM [facility]03-30-2023 09:40-0400 Respiratory rate1 /minMaher SALAM [facility]03-30-2023 08:21-0400Blood Pressure LocationMther SALAM [facility]03-30-2023 08:21-0400Body giuuiikleal94.88 [degF]Daigleomar SWIFTAM [facility]01-20-2023 14:15-0500 Diastolic blood wkdcvhoi20 mm[Hg]Elicia Mcmillan 133-8389Wvypmb-VtasdKindred Hospital Lima Pdndsj71-90-1206 14:15-0500Mean blood rvztekyr175 mm[Hg]Elicia Mcmillan [phone]-JzdyiKindred Hospital Lima Utpmul05-23-5485 14:15-0500Systolic blood oecrswvy920 mm[Hg]Elicia Mcmillan 300-0737Mfnupb-DbqemC[facility]01-20-2023 14:11-0500Blood Pressure LocationBeabiodun Mcmillan [phone]-JwkbcC[facility] Clinic [facility]01-20-2023 14:11-0500Body xgcezalfjbr18.88 [degF]Elicia Mcmillan 710-5664Zlkpsi-DdloiC[facility] Clinic [facility]01-20-2023 14:11-0500Diastolic blood wylemuaw04 mm[Hg]Elicia Mcmillan 195-1405Tktdlq-WhqosCleveland Clinic Mer[facility] Hospital01-20-2023 14:11-0500Heart rate77 /minElicia Mcmillan [phone]-HmhbrCleveland Clinic Mer[facility] Hospital01-20-2023 14:11-0500Systolic blood evvycuow551 mm[Hg]Elicia Mcmillan 085-2011Njapyq-YbylgC[facility] Clinic [facility] Hospital01-17-2023 10:45-0500Body lemsry213.96 cmDonald Lizarraga Other [facility] [employer] Other 01-17-2023 10:45-0500Body mass index (BMI) [Ratio] 41.47 kg/s2RxlbhpDonald Lizarraga Other [facility] [employer] Other 01-17-2023 10:45-0500Body bvroiu276.51 kgDonald Lizarraga Other [employer] Other 01-17-2023 10:45-0500Diastolic blood srxkbjeq72 mm[Hg] Donald Lizarraga Other [facility] [employer] Other 01-17-2023 10:45-3839KmN4% (BldA) [Mass fraction]97 % Donald Lizarraga Other [facility] [employer] Other 01-17-2023 10:45-0500Systolic blood ukepzeyn465 mm[Hg] Donald Lizarraga Other [facility] [employer] Other 04-20-2022 12:02-0400Blood Pressure LocationJENNIFER TIANA [facility] 04-20-2022 12:02-0400Diastolic blood ghyumsvz79 mm[Hg] CATHIE AZEVEDORY [facility] 04-20-2022 12:02-0400Heart rate77 /minJENNIFER TIANA [facility] [place] 04-20-2022 12:02-0400Systolic blood mm[Hg] CATHIE TIANA [facility] [place] Encounters Encounter DateEncounter TypeCare ProviderFacilityStart: 05-05-2025 End: 78-58-4314crlnhpppgjMculsx E Braun MD Work Phone: [facility]: 05-05-2025 End: 29-59-0270Hckabdf encounter procedureJuliudmila Auguste DO-[facility] [place] Work Phone: Start: 91-03-0563Gdh-patient / Non-visitAndrius Jesus Alberto JACK[facility] Work Phone: Start: 04-28-2025 End: 86-42-2551okkdxxlciqYgcovzxBlessing Granda MDFacility: [place] Start: 80-54-8919Did-patient / Non-visitAndwilfredo Granda MD-[facility] Work Phone: Start: 04-14-2025 End: 33-98-9013nszyvkdupeJwwcjbpEnoc Granda MDFacility:[facility] Start: 04-02-2025 End: 83-95-5013Gveqneu encounter statusPrasanth Perez MD Work Phone: [facility]: 04-02-2025 End: 65-05-4587FtgaeuRpeyoae Almahameed MD Work Phone: [facility] CardiologyComment on above:RefillStart: 03-24-2025 End: 80-06-1663yartaxpmqfYycnsavEnoc Granda MDFacility:[facility] Start: 03-03-2025 End: 00-70-0717kogtfldocjJjjduf E Braun MD Work Phone: [facility] Work Phone: Start: 03-03-2025 End: 94-63-4493Lpowdjy encounter procedurePeter Auguste DO-[facility] [place] Work Phone: Start: 02-12-2025 End: 88-11-1685ladennzcyyFqoxvc E Braun MD Work Phone: [facility] Work Phone: Start: 02-12-2025 End: 75-65-5987Hnltcjj encounter procedureDonald Lizarraga MD-[facility] Work Phone: Start: 12-23-2024 End: 55-69-8354zfjrgzmzdrUzrdwotLindsay Granda MDFacility:[facility] Start: 63-92-4588Pib-patient / Non-visitBlessing Granda MD-[facility] Work Phone: Start: 12-16-2024 End: 00-57-1150oxcjgiwnbvTmgbarbLindsay Granda MDFacility:[facility] Start: 12-14-2024 End: 72-20-1722Ammnzv Duke Rodolfobetsy QUICK Work Phone: [facility]HealthStart: 74-13-4866Kls-patient / Non-visit Merlyn Vinny [facility] Work Phone: Start: 11-25-2024 End: 13-27-1004mxkjyjycseZdxryecEnoc Granda MDFacility:[facility] Start: 11-06-2024 End: 48-35-6355MbtjdkNtqzrsl Almahameed MD Work Phone: [facility] CardiologyComment on above:RefillStart: 05-29-2024 End: 53-50-7606vsqsbfxslhZtmfqm E Braun MD Work Phone: [facility] Work Phone: Start: 05-29-2024 End: 08-94-3293Szkcskz encounter procedureDonald Lizarraga MD Work Phone: [facility] Work Phone: Start: 05-26-2024 End: 87-52-3709bzhbkdaztxHrzdrp E Braun MD Work Phone: [facility] Work Phone: Start: 05-26-2024 End: 26-38-8151Fuqkunu encounter procedureDonald Lizarraga MD Work Phone: [facility] Work Phone: Start: 05-08-2024 End: 09-96-3271ncptqkycqrQymuwswcmMount Carmel Health System Work Phone: Start: 05-08-2024 End: 35-78-6053Ogkwbaf encounter procedureJosh [facility] Work Phone: Start: 39-93-8589Ade-patient / Non-visitF[facility] Work Phone: Start: 04-15-2024 End: 83-16-3632Mnvdyz outpatient visit 25 minutesPrasanth Perez MD Work Phone: MetSnapYeti CardiologyComment on above:PAF (paroxysmal atrial fibrillation) (HCC) (Primary Dx)Start: 04-15-2024 End: 73-89-7081gzdleerthpXKTSNBG ALMAHAMEEDFacility:METROHealthStart: 01-23-2024 End: 43-99-7689ldzvkwulgxDVCBEQFD E PERRYFacility:EU BellevueStart: 01-23-2024 End: 58-07-6138Ywiccwz encounter procedureJENNIFER E TIANA [facility] start: 12-27-2023 End: 90-99-9208Tspqhwa encounter statusSaima Deyvi DO Work Phone: MetroHealthStart: 12-27-2023 End: 81-14-0701EpvilhNnibn Deyvi DO Work Phone: MetSnapYeti CardiologyComment on above:RefillStart: 10-19-2023 End: 82-06-6826plgonvqognBeuiotahmMount Carmel Health System Work Phone: Start: 10-19-2023 End: 14-51-0570Bdqpzvc encounter procedureBlainebon [facility] Work Phone: Start: 56-60-2188Jqs-patient / Non-visitAt[facility] Work Phone: Start: 07-20-2023 End: 85-65-0887aehvylvsalOyyzum Braun Other Nort [employer] Other Start: 12-01-1633Hvgkinvzo encounterDonald Cross [facility] Centertart: 07-13-2023 End: 03-65-9856dozopnjlkoAeobvr Elham Other noCaterva i[employer] Other Start: 75-99-2279Nqtwwf outpatient visit 15 minutes [facility]art: 84-66-9018Tyvqmmw encounter status Emperatriz Carnes DO Work Phone: MetiRatesHealthStart: 46-49-6286VhrdzfMqnrz Karim DO Work Phone: Markkit CardiologyComment on above:RefillStart: 03-29-2023 End: 14-70-0919Oiwzeh outpatient visit 15 minutesEmperatriz Carnes DO Work Phone: Markkit CardiologyComment on above:Persistent atrial fibrillation (HCC) (Primary Dx); Anticoagulated; JAVED on CPAPStart: 03-28-2023 End: 72-73-4616fsqmgmvsnqAzklan Braun Other [facility] [employer] Other Start: 27-63-4048Rsxabsmxv encounterDonald Cross [facility] ClinicStart: 45-10-7316Hmxqlg encounterSlesly Carnes DO Work Phone: MetiRatesHealthStart: 25-74-5478Noxfwqtrp encounterSaijavi Reynoldsim DO Work Phone: Markkit CardiologyComment on above:Question about medicationRefillStart: 34-95-4699Anccbah encounter statusEmperatriz Reynoldsim DO Work Phone: MetroHealthStart: 78-96-4709SjlypcHbdrc Karim DO Work Phone: Markkit CardiologyComment on above:RefillStart: 01-24-2023 End: 58-19-1519Dcg Drop offJENNIFER E TIANA [facility] Start: 01-24-2023 End: 62-45-5091Eyrdtde encounter procedureJENNIFER E TIANA [facility] start: 11-10-2022 End: 52-68-0785btojaaffouJMUJBOK CLAIREALEXANDRA .Facility:M2Uzhqd: 11-07-2022 End: 85-73-4200pkumvmoluyTH DONALD LIZARRAGAFacility:F3Zkgkl: 22-51-7777hyrvooqifb NARENDRANATH LAKSHMIPATHY .Facility:K9Qzpkp: 10-11-2022(Televisit) Televisit Donald [facility]: 10-11-2022 End: 42-82-3981vrwbhrtwhbLyqnbv Braun Other [employer] Other Start: 10-10-2022 End: 41-93-3235spyazbvbxfMMFJMA H FAWWADFacility:G9Zkeds: 10-06-2022 End: 90-51-3391Fovnppz encounter procedureMaher SWIFTAM [facility] Start: 71-02-0679Uhlysfafz encounterMarsekou LizarragaLutheran Hospitaltart: 2022 End: 59-97-2042yytryklvvwCD DONALD Ruano MuluCaterva iJ[employer] Other Start: 09-07-2022 End: 07-19-9657okpcmennrzLLFCSJ H FAWWADFacility:L7Hohhi: 08-10-2022 End: 02-56-2798ltafbmwjjuXDQRQM H FAWWADFacility:C1Vfavb: 07-29-2022 End: 77-83-4274Pxakjwv encounter procedureElicia Mcmlilan [phone]-YlfznGlenbeigh Hospital [facility] Start: 07-26-2022 End: 89-62-2370bpebdmrulhUkhmie Braun Other [employer] Other Start: 19-56-5435Kopibb outpatient visit 15 minutes Donald Cross [facility] ClinicStart: 07-20-2022 End: 30-29-5439sgeymsizspXA JADEN Rodriguez VILLA .Facility:E2Wfwbj: 07-11-2022 End: 13-68-0975anghgiwoodWXVDLI H FAWWADFacility:K4Fnpjb: 06-28-2022 End: 12-07-0532hxznndyqveCV JADEN S VILLA .Facility:B8Caxtg: 06-09-2022 End: 19-44-5059wfglphshpxLC DONALD E BRAUNFacility:S1Zsclj: 05-26-2022 End: 62-87-6051ebwauaqzrgJV DONALD E BRAUNFacility:Z0Balvi: 05-10-2022 End: 47-27-5683lohjmqqlxaZN DONALD E BRAUNFacility:N0Fkplq: 04-10-2022 End: 71-74-1346vydhfzgrklQR DONALD E BRAUNFacility:S1Kbcns: 04-07-2022 End: 94-88-4224ctodtglojtIB DONALD E BRAUNFacility:P3Dknym: 03-22-2022 End: 38-25-1245dcggdbtyejNK DONALD E BRAUNFacility:Q5Adcrs: 03-10-2022 End: 22-90-3292myesqozhmlPH DONALD E BRAUNFacility:R6Sahzv: 03-03-2022 End: 99-31-2237ntdmaefqwfEU DONALD E BRAUNFacility:H2Qdzww: 83-32-8555Bggmhrh encounter statusSaima KarSource Audio DO Work Phone: MetSnapYeti CardiologyStart: 93-03-3581VddsmiSdblb KarSource Audio DO Work Phone: MetSnapYeti CardiologyComment on above:RefillStart: 02-07-2022 End: 12-33-0626bmgtgjyhilVZ DONALD E BRAUNFacility:U8Sxbyn: 02-07-2022 End: 96-51-6757jufafciydoYP DONALD E BRAUNFacility:P0Qvzme: 31-70-0950Gwctbt Emperatriz Karim DO Work Phone: MetroKDW CardiologyComment on above:RefillStart: 01-07-2022 End: 42-16-5370eaqyesidaaDW DONALD LIZARRAGAFacility:P5Xrmzb: 60-26-0396Bvnqknn encounter statusSaquique Carnes DO Work Phone: [facility] CardiologyStart: 72-11-1786ZhmpkdCcjui Karim DO Work Phone: MetroKDW CardiologyComment on above:RefillStart: 83-86-8854WochkdUxjai Karim DO Work Phone: MetroKDW CardiologyComment on above:RefillStart: 10-27-2021 End: 83-12-2390Xqueqpu encounter procedureJEPATRICIA AZEVEDORY [facility] start: 19-12-9220Ydubcpc encounterDevin Greer Facility:[facility] Medical BuildingStart: 04-24-2017 End: 26-49-2241BboajfvvlcPHNHVCL PHYSICIANFacility:[facility]ENTERtart: 03-03-2017 End: 85-07-2864MwzwthdkkwCJPNTOX PHYSICIANFacility:[facility] Procedures DateProcedureProcedure DetailPerforming ClinicianStart: 25-48-1749Lswxf chest X-rayDonald Lizarraga MD Work Phone: Start: 38-76-1660JeazbrzmiciRpksf SALAM Start: 53-31-0857LLH screeningDR JADEN VILLA .Comment on above:Performed By: #### [facility] #### Laboratory [address] [place] [address] Dr. Jason PearsonStart: 22-73-9858Lzhtfkstxfmex prostatectomyCATHIE HERNANDEZ Start: 43-07-1420Rduawgvtvsw biopsy of prostate using ultrasound guidanceCATHIE HERNANDEZ Start: 14-19-0921WgwclhyuaubsfnrtcakeubyffaEdfe Steinmetz Start: 70-16-6649Wxzzrrvha for malignant neoplasm of colonMarcia Lizarraga Other Start: 11-57-1463Nevtbceuf for malignant neoplasm of prostateMarcia Lizarraga Other Start: 82-43-9231Hwfixka of sutureMarcia Lizarraga Other Start: 77-19-9733Tncwkkc examination of patientMarcia Lizarraga Other ColonoscopyJENNIFER TIANA Excision of cystJENNIFER TIANA Local anesthetic nerve block in lower limbJENNIFER TIANA Screening for malignant neoplasm of colonMarcia Lizarraga Other Screening for malignant neoplasm of prostateMarcia Lizarraga Other Special back careJENNIFER TIANA Plan of Treatment DateCare ActivityDetailAuthorStart: 36-92-9819Txplg panelCholesterolMetroHealth Start: 24-36-8910JQNSG-19 Vaccine ( season)COVID-19 Vaccine ( season)MetroHealthStart: 01-17-4657Nduqsdvmq vaccinationInfluenza Vaccine (#1)MetroHealthStart: 19-31-2544HbwvaojDoctors [facility] Work Phone: Start: 03-10-4424LLLEA-19 Vaccine ( season) COVID-19 Vaccine ( season)MetroHealthStart: 24-54-3035NCMNH-19 Vaccine ( season)COVID-19 Vaccine ( season)[facility] Start: 72-40-2593Wgpuinslt vaccinationInfluenza Vaccine (#1)MetroHealthStart: 78-70-4408Xspymqive vaccinationInfluenza Vaccine (#1)MetroHealthStart: 03-29-2023 End: 98-60-1996Jlfjcpkfrxzj consultation with fzwjakz8803/29/2023 4:20 PM EDT Telemedicine [facility] Cardiology [address] [place] [address] Emperatriz Carnes DO [address] [place] [address] [facility] CardiologyStart: 03-10-2023 COVID-19 Vaccine ( season)COVID-19 Vaccine ( season) MetroHealthStart: 03-79-1252Tafpngjax vaccinationInfluenza Vaccine (#1) MetroHealthStart: 65-08-5883Afeabpzvrhgi vaccinationMetroHealthStart: 04-09-2022 Influenza vaccinationInfluenza Vaccine (#1)MetroHealthStart: 00-93-8175KFDQB-19 Vaccine (5 - Booster for Pfizer series)COVID-19 Vaccine (5 - Booster for Pfizer series)MetroHealthStart: 88-22-0359CDFPN-19 Vaccine (5 - Pfizer series)COVID-19 Vaccine (5 - Pfizer series)MetroHealthStart: 57-63-2322Zzixgbuxf vaccination Influenza Vaccine (#1)MetroHealthStart: 92-22-8751NEVQE-19 Vaccine (4 - Booster for Pfizer series)COVID-19 Vaccine (4 - Booster for Pfizer series)[facility] Start: 12-24-5203ALJUV-19 Vaccine (4 - Booster for Pfizer series)COVID-19 Vaccine (4 - Booster for Pfizer series)MetroHealthStart: 03-21-7027Wvnpy metabolic 2000 panel - Serum or PlasmaBasic Metabolic PanelMetroHealthStart: 76-84-2925Mlvrkuihci measurementBasic Metabolic PanelMetroHealthStart: 81-24-9187Qznssy wellness visitAnnual Wellness Visit (G0438)MetroHealthStart: 99-12-1933Vapihralh B (HBV) Vaccine (optional start 60+ years)Hepatitis B (HBV) Vaccine (optional start 60+ years)MetroHealthStart: 35-27-3648RDQ vaccine (adult) (1 - Risk 60-74 years 1-dose series)RSV vaccine (adult) (1 - Risk 60-74 years 1-dose series)MetroHealthStart: 11-75-0937HFA vaccine (optional 60+ years) RSV vaccine (optional 60+ years)MetroHealthStart: 73-23-9456Sjqtpsavlyy of occult blood in single stool specimenFITMetroHealthStart: 90-88-5138Didbstyfe for malignant neoplasm of colonCRC ScreeningMetroHealthStart: 32-68-5051Frjbqtye (RZV) Vaccine (1 of 2)Shingles (RZV) Vaccine (1 of 2)MetroHealthStart: 55-11-3494Xtjlhpekr for malignant neoplasm of colonMetroHealthStart: 1990 Lipid panelCholesterolMetroHealthStart: 99-51-7565Iafwwujuy A (HAV) Vaccine (optional start 19+ years)Hepatitis A (HAV) Vaccine (optional start 19+ years) MetroHealthStart: 59-08-1501Eixyohggf C screeningHepatitis C AntibodyMetroHealth Start: 91-84-8571Crupgne + diphtheria + acellular pertussis vaccine (product) Tdap BoosterMetroHealthStart: 43-13-0992NRVHA-19 Vaccine ( formulation) COVID-19 Vaccine ( formulation)MetroHealthStart: 36-77-3807Ynjdawvon for malignant neoplasm of colonColonoscopyMetroHealthPatient EducationLow back pain in adultsMckitrick Hospital Work Phone: Patient referralMckitrick Hospital Work Phone: Immunizations Immunization DateImmunizationNotesCare XomwfgtvTzdmvgjd87-77-0874Onxldjqrsqsa conjugate 20 valent (PCV20), polysaccharide AXI696 conjugate, adjuvant, PF (FMQ=678)Emperatriz Carnes DO Work Phone: [phone]wAefzwt30-53-0832cnowbwnne virus vaccine, unspecified formulationCATHIE HERNANDEZ [facility]11-01-2023Influenza, seasonal vaccine, quadrivalent, adjuvanted, 0.5mL dose, preservative free (FMZ=395)Emperatriz [employer] Work Phone: [phone]tDwjoho63-44-9257rcmisfumm virus vaccine, unspecified formulationElicia Mcmillan 212-5944Fnoobw-XmnwmGlenbeigh Hospital Digestive Earqut99-97-0941 Influenza, seasonal vaccine, quadrivalent, adjuvanted, 0.5mL dose, preservative free (JDU=263)[employer]riz [employer] Work Phone: [phone]dNeucex37-30-1903Clxiuz Monovalent (12+ yrs) SARS-COV-2 (COVID-19) vaccine, mRNA, spike protein, LNP, pres. free, 30mcg/0.3mL dose, art-sucrose (MFT=929)[employer] Work Phone: [phone]bIbizxc10-75-1949UVNR-MfL-5 mRNA (jwbokiwroob-paur-tnbmexy) vaccineabiodun Mcmillan 564-8342Pjzsiy-MmcoaC[facility] Clinic [facility]02-09-2022 pneumococcal conjugate vaccine, 13 valentSatrium health [facility] [employer] Work Phone: [phone]nCnrecv38-42-4310DBCA-VfS-5 (COVID-19) mRNA BNT- 162b2 Aileenvianney Garciametz 584-0847Aroomu-TirnkCleveland Clinic [facility]cy Hospital11-17-2021 SARS-CoV-2 (COVID-19) Ad26 vaccine, recombinantJECHRISIFER TIANA [facility] 11945861-27-6985Upyojsobr, seasonal vaccine, quadrivalent, adjuvanted, 0.5mL dose, preservative free (ESC=512)[employer] Work Phone: [phone]sWkzhnd02-13-6197uankacxxx virus vaccine, unspecified formulationSatrium health [facility] [employer] Work Phone: [phone]-MizynC[facility] Clinic [facility] Hospital10-20-2021 influenza virus vaccine, unspecified formulationCATHIE HERNANDEZ [facility] 10-415923-42-9977BSAK-LlG-5 (COVID-19) Ad26 vaccine, recombinantJEPATRICIA HERNANDEZ [facility] 03490548-25-4131Lltojw SARS-COV-2 (COVID-19) vaccine, age 12+ yrs, mRNA, spike protein, LNP, preservative free, 30 mcg/0.3mL dose (ORK=980) [employer] Work Phone: metroHealthComment on above:Result Comment: 2022-07-27: JXS0414-14-2402Oaltcm SARS-COV-2 (COVID-19) vaccine, age 12+ yrs, mRNA, spike protein, LNP, preservative free, 30 mcg/0.3mL dose (UKU=517)[employer] Work Phone: AnyPerkroHealthComment on above:Result Comment: 2022-07-27: BES3846-29-8274gnleryvpi virus vaccine, unspecified formulation CATHIE HERNANDEZ [facility] 10125813-10-8900gderxeibu virus vaccine, unspecified formulationElicia Garciametz 081-1345Vmjwkj-XggoqGlenbeigh Hospital Fly[employer] Zmyfso72-13-5903 Influenza, seasonal vaccine, quadrivalent, adjuvanted, 0.5mL dose, preservative free (EWJ=194)[employer] Work Phone: [phone]mXvlqoi71-92-3454llqpgyoda virus vaccine, unspecified formulationElicia Garciametz 659-6750Kasouq-MoxemGlenbeigh Hospital Flyfit Bscsll92-97-9762 influenza, high dose seasonal, preservative-freeSaima Karim DO Work Phone: [phone]bNmgkai91-54-3795tronlhiyw virus vaccine, unspecified formulationElicia Mcmillan 181-1000Dtxpvt-KkajaKindred Hospital Lima Cjobwn08-89-6260 Influenza, injectable, Madin Courtney Canine Kidney, preservative free, quadrivalentSaima Karim DO Work Phone: [phone]wKmdidf76-33-2921gzrhpdrun virus vaccine, split virus (incl. purified surface antigen)Donald Lizarraga Other [employer] Other 10-321853-58-9090uysouwlss virus vaccine, unspecified formulationC[facility]10-11-2016pneumococcal polysaccharide vaccine, 23 valentMarsekou Lizarraga Other [facility]12-15-2014influenza virus vaccine, split virus (incl. purified surface antigen)Donald Lizarraga Other [employer] Other 12-603521-60-8475ltrnmblaf virus vaccine, unspecified formulationC[facility]08-07-2014diphtheria, tetanus toxoids and acellular pertussis vaccine, unspecified formulationDonald Lizarraga Other [facility] Payers DatePayer CategoryPayerPolicy [id number] IndemnityAARP [id number] 2023Unknown2019Medicare [id number] 2019Medicare [facility] [id number] [id number] 2..[id number] 2..0.100815.1185-02-1954 [id number] 2..1.247071.3.579.2.66166-19-7943Hnpscjm0150577 2..1.473346.3.579.2.88202-95-4053Newjyem5001141 2..1.536339.3.579.2.48720-63-0920Fhkjbgy7330562 2..1.146501.3.579.2.48275-41-0991Wsuelum9997226 2.0.1.931392.3.579.2.59547-92-1171Mptzrbt2907626 2.0.1.402750.3.579.2.16095-02-0286Uhevpbm2232653 2.0.1.097140.3.579.2.20538-84-1910Dphvlxu2894776 2.0.1.270700.3.579.2.22074-65-0857Mlybseq4321627 2.16.840.1.431240.3.579.2.26571-46-9336Irajvvq1832157 2.16840.1.496553.3.579.2.76072-73-1617Rvnswvw1901313 2.16840.1.424675.3.579.2.76163-82-1344Wnvocll3901916 2.840.1.329775.3.579.2.40745-32-5640Ztbruax6106971 2.840.1.498114.3.579.2.63604-73-2001Pgpyyxo5229593 2.840.1.962756.3.579.2.92159-37-5239Djaljns6083878 2.840.1.288313.3.579.2.36204-13-8137Vechwpm8398786 2.840.1.338542.3.579.2.23356-97-2624Jnbfjsz4369243 2.840.1.269132.3.579.2.21347-95-4230Yssidom6149131 2.840.1.508122.3.579.2.58988-23-5625Voszili0131503 2.840.1.931541.3.579.2.60128-82-6107Irsozsr2981353 2.840.1.367489.3.579.2.89841-80-5919Jfzdbwe6577850 2.840.1.216925.3.579.2.08430-73-5885Moeeheq0533631 2.840.1.248872.3.579.2.62925-50-3034Qxavcae9178897 2.840.1.192060.3.579.2.11314-56-6408Xrxbqvx25265157 2.16.840.1.725849.3.579.2.28959-38-8804Pfeppta472897988 2.16.840.1.814011.3.579.2.02185-87-3731Chyxfbm769708721 2.16.840.1.396982.3.579.2.47285-09-0960Ywukdro157423804 2.16.840.1.787326.3.579.2.46578-22-4730Vmqckva886307472 2.16.840.1.709020.3.579.2.69691-91-1734Skgfjjn506834731 2.16.840.1.185341.3.579.2.74884-62-0277Dumcjqe996043008 2.16.840.1.923748.3.579.2.61666-90-6177Poswjds812040163 2.16.840.1.127904.3.579.2.911QqiwyviJAM025C17313HzozfgtPDXGD942227514 891e8f02-l7b5-3943-8l47-o993209717kq Social History DateTypeDetailFacilityStart: 09-03-2020 End: 05-88-2417Ezyvwbr smoking statusNever smoked tobacco (finding)[facility] Tobacco smoking statusNeverExec[facility] of [facility] start: 52-65-7571Mgp Assigned At BirthMaleExec[facility] start: 42-49-8275Bkdsaul use and exposureSmokeless tobacco non-userMetroHealthStart: 12-28-2018 End: 70-78-5161Faoarep intakeEx-drinker (finding)MetroHealthStart: 37-57-5328Wzl Assigned At BirthNot on fileMetroHealthStart: 78-62-4210Xkd [facility]igned At [facility]tart: 81-04-5842Xbztnrr of Social function MetroHealthWithin the last year, have you been afraid of your partner or ex-partner?NoMetroHealthDo you belong to any clubs or organizations such as zoroastrianism groups, [employer], [employer] or athletic groups, or school groups?Yes MetroHealthAre you now , , , , never or living with a partner?MarriedMetroHealthDo you feel stress - tense, restless, nervous, or anxious, or unable to sleep at night because yourmind is troubled all the time - these days [OSQ]Not at allMetroHealth(I/We) worried whether (my/our) food would run out before (I/we) got money to buy more.Never true MetroHealthStart: 93-14-9288Gcxnvedkb90TtfqvPwbuzjTppkx: 08-09-2018 End: 70-89-9707BfqDnsr (finding)[facility] Ohiotart: 52-07-5999Jpmjzrf of drug misuse behaviorHas never misused drugs (situation) [facility] Functional Status PuloOvfsycibltQaxvroXfzasrlg63-53-7674Ubbccyygxl StatusN/AExec[facility]07-18-2023Functional StatusN/A[facility]03-30-2023Functional StatusN/A [facility]01-20-2023Functional StatusN/AF[facility] Clinical Notes 11-24-2021 to 02-12-2025 Note Date & BzceRhspCmvubbxi55-54-0805 Evaluation note* Diagnosis Onset Date Resolution Status Admit Date A-fib acuteAugust 2024 9:16amBilateral primary osteoarthritis of hipacuteAugust 2024 9:16amBilateral primary osteoarthritis of kneeacuteAugust 2024 9:16amLumbar painacuteAugust 2024 9:16amMedicare annual wellness visit, subsequentacuteAugust 2024 9:16amOSA on CPAPacuteAugust 2024 9:16am Degenerative joint disease (DJD) of hipacuteAugust 2024 10:28am [facility] Work Phone: 1(392) 369-794808-06-2025 Evaluation note* Diagnosis Onset Date Resolution Status Admit Date A-fib acuteAugust 2024 9:16amBilateral primary osteoarthritis of hipacuteAugust 2024 9:16amBilateral primary osteoarthritis of kneeacuteAugust 2024 9:16amLumbar painacuteAugust 2024 9:16amMedicare annual wellness visit, subsequentacuteAugust 2024 9:16amOSA on CPAPacuteAugust 2024 9:16am Degenerative joint disease (DJD) of hipacuteAugust 2024 10:28am Degenerative joint disease (DJD) of hipacuteOctober 2024 10:50am [facility] Work Phone: 1(655) 504-197110-30-2024 Evaluation note* Diagnosis Onset Date Resolution Status Admit Date Bronchitis acuteOctober 2023 9:18amCoughnoneactiveNovember 2023 9:07am [facility] Work Phone: 1(298) 586-768210-07-2024 History of Present illness Narrative* Prasanth Perez [...] last visit, he had lexiscan at [facility] on 09/2016 that showe no reversible findings, [...] in 1 year Prior to your visit, [facility] shared information with you about the [...] of patient Time-Based Billing Justifications: Charting in [facility] Patient visit (including performing a [...] 180 Tablet 3 Sodium Sulfate-Mag Sulfate-KCl (Sutab) 6185-891-165 MG TABS Take by mouth. AMLODIPINE BESYLATE [...] declined Stress: No Stress Concern Present (03/27/2023) [employer] [place] [employer] - Occupational Stress Questionnaire Feeling of Stress : Not at all Social Connections: Moderately Integrated (03/27/2023) Social Connection and Isolation Panel [NHANES] Frequency of Communication with Friends and Family: More than three times a week Frequency of Social Gatherings with Friends and Family: Twice a week Attends Mormon Services: Never Active Member of Clubs or Organizations: Yes Attends Club or Organization Meetings: More than 4 times per year Marital Status: Intimate Partner Violence: Not At Risk (03/27/2023) Humiliation, Afraid, Rape, and Kick questionnaire Fear of Current or Ex-Partner: No Emotionally Abused: No Physically Abused: No Sexually Abused: No No family history on file. documented in this jwyvauxomGheqtDdbhul40-29-9994 Hospital Discharge instructions Patient Education 01/23/2024 14:28:31 [...] Follow these instructions at home: Medicines Take sixq-tzr-edqrems and prescription medicines only as told by [...] provider. Document Revised: 09/22/2021 Document Reviewed: 09/22/2021 [employer] Patient Education 2022 [facility]. Follow Up Care 01/24/2023 10:37:20 With:TIANA GARCIA, CATHIE Ruano, URL Address: [address] [phone] [phone] When: only if needed [facility] 07-16-2024 NotePatient Education Urology Erectile [...] these instructions at home: Medicines ? Take otay-bpt-rebfboe and prescription medicines only as told by [...] nicotine or tobacco. These (more content not included)...[facility]01-04-2024 Evaluation note* Encounter Date Diagnosis Assessment Notes Treatment Notes Treatment Clinical Notes Jul, Obstructive sleep apnea (ICD-10 - G47.33) Clinical signs which suggest the need for pressure adjustment were reviewed. He is compliant and faithful w using the device. 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 Last televisit- 08/2020- He had to ER on 05/22/20 when he had pain with a blood clot- needing to stop his coumadin for a short period of time. He felt like he has been in sinus rhythm on his self checks. He was on Dhoxftfawa034 mg BID and Lopressor 100 mg BID. Since patient last saw me, he had TURP done- no further hematuria or urgency. PSA has been stable. Colonoscopy was normal per patient. No melena etc. ALLERGIES: Allergies Allergen Reactions Other (Review Comments!) MEDICATIONS: Current Outpatient Medications Medication Sig Dispense Refill Sodium Sulfate-Mag Sulfate-KCl (Sutab) 6599-178-282 MG TABS Take by mouth. AMLODIPINE BESYLATE [...] refused Stress: No Stress Concern Present (03/27/2023) [employer] [place] [employer] - Occupational Stress Questionnaire Feeling of Stress : Not at all Social Connections: Moderately Integrated (03/27/2023) Social Connection and Isolation Panel [NHANES] Frequency of Communication with Friends and Family: More than three times a week Frequency of Social Gatherings with Friends and Family: Twice a week Attends [employer] Services: Never Active Member of Clubs or [...] Assessment/Plan: Persistent atrial fibrillation (HCC) (Primary Diagnosis) [079200] Anticoagulated [082926] JAVED on CPAP [728113] Patient doing well overall as far as [...] Electrophysiology 03/29/23 4:52 PM documented in this [id number] Telephone encounter Note* Telephone Encounter - Crystal Putnam RN - 02/17/2023 9:17 AM EDT LVM for pt that new generic Rx (Toprol XL) was sent over to [facility]. [id number] Miscellaneous Notes* Telephone Encounter - Crystal Putnam RN - 02/17/2023 9:17 AM EDT LVM for pt that new generic Rx (Toprol XL) was sent over to [facility]. * Telephone Encounter - Heather Renteria - 02/16/2023 9:38 AM EDT Ross miranda is calling wanting to know if they can dispense Metoprolol SUCC- ER 100 mg instead ofthe Toprol XL 100 mg, pt's insurance will only cover the generic brand. Please contact [employer] [phone] use Re:[phone]. Thank you documented in this [id number] Telephone encounter Note* Telephone Encounter - Aundrea Davis PharmD - 02/16/2023 3:00 PM EDT Patient called stating the original prescription that was sent had a KP for Toprol XL 100mg which is not covered. Please send over generic Metoprolol ER Succinate 100mg. Thank you! [id number] Miscellaneous Notes* Telephone Encounter - Aundrea Davis PharmD - 02/16/2023 3:00 PM EDT Patient called stating the original prescription that was sent had a KP for Toprol XL 100mg which is not covered. Please send over generic Metoprolol ER Succinate 100mg. Thank you! documented in this [id number] Telephone encounter Note* Telephone Encounter - Heather Renteria - 02/16/2023 9:38 AM EDT Ross miranda is calling wanting to know if they can dispense Metoprolol SUCC- ER 100 mg instead ofthe Toprol XL 100 mg, pt's insurance will only cover the generic brand. Please contact [employer] [phone] use Re:[phone]. Thank you [employer] Work Phone: 1(913) 793-774307-18-2023 Hospital Discharge instructions Patient Education 01/24/2023 10:34:12 [...] Follow these instructions at home: Medicines Take hmbc-wzu-wpsmgze and prescription medicines only as told by [...] provider. Document Revised: 09/22/2021 Document Reviewed: 09/22/2021 [employer] Patient Education 2022 [facility]. Follow Up Care 10/27/2021 12:15:55 With:TIANA GARCIA, CATHIE Ruano, URL Address: [address] [facility] [place] [address] When:Within 1 Year(s) [facility] 04-04-2023 Evaluation note* Encounter Date Diagnosis Assessment Notes Treatment Notes Treatment Clinical Notes Oct, Bronchitis (ICD-10 - J40) Pt understands to take meds as prescribed and finish antibiotic. Also understands to go to ER if symptoms worsen. Oct,OVID-19 (ICD-10 - U07.1)With his warfarin and his lack of dyspnea, risks of antivirals would outweigh benefits at this time. Discussed symptom management and pt understands. Oct,trial fibrillation, unspecified type (ICD-10 - I48.91)stable. continue w present meds and codifier. [employer] Other 03-30-2023 Evaluation + Plan noteExtracted from:Title: KRISSY post opAuthor:Berkley JACKSON, Daljit LujanDate:10/06/22 Plan Transfer/Discharge: Transfer/Discharge Discharge when meets criteria ( To home ). Extracted from:Title:KRISSY GAAuthor:Berkley JACKSON, Daljit LujanDate:10/06/22 Plan [place] [employer] Anesthesiologists (ASA) physical status classification: Class III. Anesthetic Preoperative Plan: Anesthesia General. Future Appointments Appointment Date:01/25/2023 10:00:00 AM Scheduled Provider:Erica Chua MD Location:[facility] Appointment Type:URO Office Visit [facility]03-30-2023 Hospital Discharge instructions Patient Education [...] 03/22/2005 Document Revised: 10/11/2018 Document Reviewed: 10/11/2018 [employer] Patient Education 2020 [employer] 10/06/2022 10:00:07 Hemorrhoids, Skss-qw-Cpqs Hemorrhoids Hemorrhoids are swollen veins that may [...] 3 times a day. General instructions Take cotn-qua-rzhpfhn and prescription medicines only as told by [...] 04/04/2009 Document Revised: 07/04/2019 Document Reviewed: 11/15/2018 [employer] Patient Education 2020 [facility]. Follow Up Care 07/29/2022 15:02:48 With:Oxana IBARRA Address: [address] [place] [address] Business (1) When: Unknown Comments:Call for any problems. [facility]01-20-2023 Hospital Discharge instructions Patient Education [...] including vitamins, herbs, eye drops, creams, and ckml-nsl-lhokwqv medicines. Any problems you or family members [...] 06/23/2001 Document Revised: 04/18/2018 Document Reviewed: 09/06/2016 [employer] Patient Education [employer]. Follow Up Care 07/05/2022 09:47:30 With:Elicia Mcmillan CNP Address: When:1 to 2 weeks Comments:Following colonoscopy. [facility] 01-17-2023 Evaluation note* Encounter [...] symptoms. Any developing patterns. Stay well hydrated. Jul,Screening PSA (prostate specific antigen) (ICD-10 - Z12.5) Jul,Short gut syndrome (ICD-10 - K91.2)History of colon tubular adenoma history of colectomy. He feels that it affects his digestion and causes diarrhea times. Encouraged him to continue the lactose-free diet and increase his fiber as able. Jul,trial fibrillation, unspecified type (ICD-10 - I48.91)Discussed possible interaction of the supplement with his warfarin. States he spoke with clinician as far as interactions that way. Continue follow-up with cardiology as scheduled. [employer] Other 01-11-2023 NoteCONSULTATION CONSULTATION DATE: 07/20/2022 HISTORY [...] in three months' time unless otherwise indicated.The 07-20-2022 NoteCONSULTATION PROCEDURE DATE: 07/20/2022 PREOPERATIVE DIAGNOSIS: [...] fan-like pattern. 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 He states that such activity has [...] for re-evaluation. Patient agrees to this plan.The [id number] NoteCONSULTATION CONSULTATION DATE: 03/03/2022 This is a 97-wats-qvcttqffk returning to clinic for a 3-month follow-up. [...] be followed up in the office following.The [id number] Telephone encounter Note* Telephone Encounter - Erica Beckett - 03/01/2022 11:40 AM EDT Patient has not been seen by this specialist in more than 1 year. Please contact patient to schedule office visit. Thank you [id number] Miscellaneous Notes* Telephone Encounter - Erica Beckett - 03/01/2022 11:40 AM EDT Patient has not been seen by this specialist in more than 1 year. Please contact patient to schedule office visit. Thank you documented in this [id number] Telephone encounter Note* Telephone Encounter - Irina Nguyen - 01/18/2022 7:23 AM EDT Last visit with Cardiology (Emperatriz Carnes) on 09/03/2020 Requested Prescriptions Pending Prescriptions Disp Refills metoprolol (TOPROL-XL) 100 mg XL tablet [Pharmacy Med Name: METOPROLOL SUCCINATE ER TABS 100MG] 90 Tablet 3 Sig: TAKE 1 TABLET DAILY No PCP on file No PCP on file [id number] Miscellaneous Notes* Telephone Encounter - Irina Nguyen - 01/18/2022 7:23 AM EDT Last visit with Cardiology (Emperatriz Carnes) on 09/03/2020 Requested Prescriptions Pending Prescriptions Disp Refills metoprolol (TOPROL-XL) 100 mg XL tablet [Pharmacy Med Name: METOPROLOL SUCCINATE ER TABS 100MG] 90 Tablet 3 Sig: TAKE 1 TABLET DAILY No PCP on file No PCP on file documented in this [id number] Telephone encounter Note* Telephone Encounter - Anirudh Gonzalez RPh - 11/29/2021 3:11 PM EDT Pt called back, will talk to his [facility] to get refill [facility] Work Phone: [phone]) 297-448605-23-2022 Miscellaneous Notes* Telephone Encounter - Anirudh Gonzalez RPh - 11/29/2021 3:11 PM EDT Pt called back, will talk to his [facility] to get refill * Telephone Encounter - Asia Laguna RN - 11/29/2021 2:52 PM EDT Left message for pt to return call to [facility] at [phone] 2nd attempt * Telephone Encounter - Cathie Whitley RN - 11/26/2021 2:46 PM EDT Left message for patient to please call back. 1st attempt * Telephone Encounter - Anirudh Gonzalez RPh - 11/25/2021 9:37 AM EDT [facility] Staff, Please contact pt re the following issue. Per 09/03/[facility], will deny Thanks! * Telephone Encounter - Tamiko Rodriguez PharmD - 11/24/2021 4:09 PM EDT Requested Prescriptions Pending Prescriptions Disp Refills warfarin (COUMADIN) 5 MG tablet 90 Tablet 0 Sig: Take 1 Tablet by mouth daily. No PCP on file No PCP on file documented in this [id number] Telephone encounter Note* Telephone Encounter - Asia Laguna RN - 11/29/2021 2:52 PM EDT Left message for pt to return call to [facility] at [phone] 2nd attempt [employer] Work Phone: [phone]) 429-539805-20-2022 Telephone encounter Note* Telephone Encounter - Cathie Whitley RN - 11/26/2021 2:46 PM EDT Left message for patient to please call back. 1st attempt [id number] Telephone encounter Note* Telephone Encounter - Anirudh Gonzalez RPh - 11/25/2021 9:37 AM EDT [facility] Staff, Please contact pt re the following issue. Per 09/03/21 note [facility], will deny Thanks! [id number] Telephone encounter Note* Telephone Encounter - Tamiko Rodriguez PharmD - 11/24/2021 4:09 PM EDT Requested Prescriptions Pending Prescriptions Disp Refills warfarin (COUMADIN) 5 MG tablet 90 Tablet 0 Sig: Take 1 Tablet by mouth daily. No PCP on file No PCP on file [facility] Work Phone: 1(524) 324-809005-18-2022 Miscellaneous Notes* Telephone Encounter - Tamiko Rodriguez [...] [Pharmacy Med Name: POTASSIUM CHLORIDE ER (DISP) [id number]] 180 Tablet 3 Sig: TAKE 1 TABLET TWICE A DAY Refused Prescriptions Disp Refills warfarin (COUMADIN) 5 MG tablet [Pharmacy Med Name: WARFARIN TABS 5MG] 90 Tablet 3 Sig: TAKE 1 TABLET DAILY (INR: 2.33) No PCP on file No PCP on file documented in this encounterMetroHealthEvaluation + Plan note Future Appointments Appointment Date:11/01/2022 09:45:00 AM Scheduled Provider:Kun Cole MD, Min Villagomez Location:[facility] Appointment Type:URO Office Visit Diagnostic Tests Pending * PSA Total 10/27/21 [facility] evaluation + Plan note Future Appointments Appointment Date:10/06/2022 09:00:00 AM Scheduled Provider: Location:[facility] Appointment Type:Surgery FT Appointment Date:11/01/2022 09:45:00 AM Scheduled Provider:Min Tristan Jr., MD Location:[facility] Appointment Type:URO Office Visit [facility] Evaluation + Plan note Future Appointments Appointment Date:01/30/2024 10:00:00 AM Scheduled Provider:CATHIE HERANNDEZ PA-C Location:[facility] Appointment Type:URO Office Visit [facility] evaluation + Plan note Future Appointments Appointment Date:01/30/2024 10:00:00 AM Scheduled Provider:CATHIE HERNANDEZ PA-C Location:[facility] Appointment Type:URO Office Visit Diagnostic Tests Pending * [facility] PAF (paroxysmal atrial [...] present documented in this encounter [facility]Evaluation noteNo [facility] [employer] Other Evaluation note* Diagnosis Persistent atrial fibrillation [...] in this encounter [facility]HealthEvaluation noteNo assessment information availableM[facility]it[facility] Work Phone: Evaluation note* Diagnosis PAF [...] Diagnosis Onset Date Resolution Status Bronchitis acute [facility] Work Phone: Evaluation note* Diagnosis Onset Date Resolution Status Admit Date A-fib acuteAugust 2024 9:16amBilateral primary osteoarthritis of hipacuteAugust 2024 9:16amBilateral primary osteoarthritis of kneeacuteAugust 2024 9:16amLumbar painacuteAugust 2024 9:16amMedicare annual wellness visit, subsequentacuteAugust 2024 9:16amOSA on CPAPacuteAugust 2024 9:16am [facility] Work Phone: Evaluation note* Diagnosis PAF [...] malignant neop lasm of digestive organs Medical HistoryMalignant neoplasm of ascending colonMedical HistoryTubular adenoma of colonMedical HistoryEncounter for screening for malignant neoplasm of colonMedical HistoryA-fibMedical Historyessential hypertensionMedical History cutaneous candidiasisMedical Historypulmonary embolismMedical Historyobstructive sleep apneaMedical Historyperipheral neuralgiaMedical HistoryhematuriaMedical Historypulmonary hypertensionSurgical Historycolon resectionSurgical History pilonidal cyst removalHospitalization HistoryNo Hospitalization history information [employer] Other Hospital course Narrative No data available for this section [facility] Hospital Discharge instructions No data available for this section [facility] Hospital Discharge instructionsAmbulatory Orders* Referral to Orthopedic Surgery Location: None Selected [facility] Work Phone: Progress note No data available for this section [facility] Reason for referral (narrative)No reason for referral information availableMckitrick Hospital Work Phone: Summary Purpose Family History Relationship Condition Age at Onset Recorded Date/T gerhard father Unknown Malignant neoplasmUnknownNot SpecifiedDeceasedUnknown Relationship Condition Age at Onset Recorded Date/T gerhard father Unknown Malignant neoplasmUnknownmotherDeceasedUnknown Advance Directives Advance Directive Response Recorded Date/ [...] 2025 9:1 6am Medicare annual wellness visit, [facility] February 12, 2025 9:16am JAVED on [...] 2025 9:1 6am Medicare annual wellness visit, [facility] February 12, 2025 9:16am JAVED on CPAP February 12, 2025 9:1 6am Degenerative joint disease (DJD) of hip March 03, 2025 10:28am Chief Complaint Admit Date wellness February 12, [...] (DJD) of hip May 05, 2025 10:50am Additional Source Comments (unrecognized sect ion and content) No Status Records FoundNo Status Records FoundNo Status Records FoundNo Status Records FoundNo Status Records FoundNo Status Records FoundNo Status Records FoundNo Status Records Found INFORMATION SOURCE (unrecogn ized section and content) DATE CREATED AUTHOR 01/02/2018 [facility] DATE CREATED AUTHOR AUTHOR'S ORGANIZ ATION 04/24/2018 [facility] DATE CREATED AUTHOR AUTHOR'S ORGANIZ ATION 05/06/2018 [facility] [place][note 2] DATE CREATED AUTHOR AUTHOR'S ORGANIZ ATION 12/16/2022 The DATE CREATED AUTHOR AUTHOR'S ORGANIZ ATION 01/25/2024 [facility] DATE CREATED AUTHOR AUTHOR'S ORGANIZ ATION 04/15/2024 [facility] DATE CREATED AUTHOR AUTHOR'S ORGANIZ ATION 05/28/2024 [facility] DATE CREATED AUTHOR AUTHOR'S ORGANIZ ATION 05/03/2025 [facility] Reason for Visit (unrecogniz ed section and content) ReasonCommentsRefillReasonOnset KgmmSrtjjctyUzjcbj53/18/2022easonOnset Date GtjrqjuuRinomg99/08/2023ReasonOnset DateCommentsQuestion about medication 02/16/2023ReasonOnset SmucNwpegqgkJqwfwv79/10/2023ReasonCommentsAtrial fibrillation/flutterReasonCommentsNew patient, to establish relationshipReason Onset NjtoVsjijnipWjpsxb81/30/2025ReasonOnset KgqtQormtrxxWhgmso51/24/2025 Care Teams (unrecognized sec tion and content) Team MemberRelationshipSpecialtyStart DateEnd Date Emperatriz Carnes, DO [address] [place] [address] HettxonstTrfijoitntxvmiosl77/6/20Team MemberRelationshipSpecialtyStart DateEnd Date Karim, Emperatriz, DO [address] [place] [address] WqynjmujlVmfhnowmmgrexyehi42/20Team MemberRelationshipSpecialtyStart DateEnd Date Karim, Emperatriz, DO [address] [place] [address] NfpqhgvedHsnuyaonmtzdkhuen31/20Team MemberRelationshipSpecialtyStart DateEnd Date Karim, Emperatriz, DO [address] [place] [address] XgtqlpzjoDgqmcsqxgitxqzakx15/12/27Team MemberRelationshipSpecialtyStart DateEnd Date Deyvi, Emperatriz, DO [address] [place] [address] ZnxfziyrkSinsbkvfwopmjfopg48/20Team MemberRelationshipSpecialtyStart DateEnd Date Deyvi, Emperatriz, DO [address] [place] [address] [place] [address] LksvhrgllYjaciqoypqssxumgf97/20Team MemberRelationshipSpecialtyStart DateEnd Date Deyvi, Emperatriz, DO [address] [place] [address] [place] [address] LzyhvxbhqHvxifwijqbipncoat85/20Team MemberRelationshipSpecialtyStart DateEnd Date Deyvi, Emperatriz, DO [address] [place] [address] [place] [address] SroenixhbRbngxeuygknbtpoby46/20Team MemberRelationshipSpecialtyStart DateEnd Date Deyvi, Emperatriz, DO [address] [place] [address] [place] [address] XactwzgbhLdggscrfphucafirz20/6/20 Team Status: Active Member Role Status Dates Donald Lizarraga MD Primary Care Provider Active Team Status: Active Member Role Status Dates Donald Lizarraga MD Primary Care Provider Active Start: September 07, 2023 Angel Whitlock ProviderActiveStart: September 07, 2023 Team Status: Inactive Member Role Status Dates Donald Lizarraga MD Primary Care Provide r, Attending Provider Active Start: October 19, 2023 End: October 19, 2023Team MemberRelationshipSpecialtyStart DateEnd Date Emperatriz Carnes, DO [address] [address] PjrsjqnodSaxogdawyvlzlkadm66/6/20Team MemberRelationshipSpecialtyStart DateEnd Date Sa Deyviima, DO [address] [place] [address] WughtaewkMvucqnhbkxkoizlku76/6/20 Team Status: Active Member Role Status Dates Donald Lizarraga MD Primary Care Provider Active Start: April 29, 2024 Heron Leal ProviderActiveStart: April 29, 2024 Team Status: Inactive Member Role Status Dates Donald Lizarraga MD Primary Care Provider Active Start: May 08, 2024 End: May 08Jv Masters ProviderActiveStart: May 08, 2024 End: May 08, 2024 Team Status: Inactive Member Role Status Dates Donald Lizarraga MD Primary Care Provider Active Start: May 26, 2024 End: May 26, 2024Jv Li ProviderActive Start: May 26, 2024 End: May 26, 2024 Team Status: Active Member Role Status Dates Donald Lizarraga MD Primary Care Provider Active Start: May 26, 2024 Jv Li ProviderActiveStart: May 26, 2024 Team Status: Inactive Member Role Status Dates Donald Lizarraga MD Primary Care Provide r, Attending Provider Active Start: May 29, 2024 End: May 29, 2024Team MemberRelationshipSpecialtyStart DateEnd Date Emperatriz Carnes DO [address] [place] [address] DispjjotgQykgugrnjuosqurwt92/6/20 Prasanth Perez MD [address] [place] [address] PhysicianCardiac Npwxnrppvemrdrvqa34/2/24Team MemberRelationshipSpecialtyStart DateEnd Date Emperatriz Carnes [address] [place] [address] QangpmnkjYrderbxpbvzotttxx09/6/20 Prasanth Perez MD [address] [facility] [place] [address] PhysicianCardiac Iwubwygwbepaebbbo18/2/24 Team Status: Active Member Role Status Dates Donald Lizarraga MD Primary Care Provider Active Start: November 28, 2024 Merlyn Casillas CMAAttending ProviderActiveStart: November 28, 2024 Team Status: Active Member Role Status Dates Donald Lizarraga MD Primary Care Provider Active Start: December 16, 2024 Ele Lealending ProviderActiveStart: December 16, 2024 Team Status: Inactive Member [...] ProviderActiveStart: March 03, 2025 End: March 03, 2025Team MemberRelationshipSpecialtyStart DateEnd Date Emperatriz Carnes DO [address] [place] [address] VbnumfpxmYklsgcwfyhyynezgm49/6/20 Prasanth Perez MD [address] [place] [address] PhysicianCardiac Asrgmyseekrqiqlyr11/2/24 Team Status: Active Member Role/Relationship Status Dates Donald Lizarraga MD Primary Care Provider Active Team Status: Inactive Member Role/Relationship Status Dates Donald Lizarraga MD Primary Care Provider Active Start: February 12, 2025 End: February 12, 2025Heron Almeida ProviderActiveStart: February 12, 2025 End: February 12, 2025 Team Status: Inactive Member Role/Relationship Status Dates Donald Lizarraga MD Primary Care Provider Active Start: March 03, 2025 End: March 03, 2025JuKesha Castillo ProviderActiveStart: March 03, 2025 End: March 03, 2025 Team Status: Active Member Role/Relationship Status Dates Donald Lizarraga MD Primary Care Provider Active Start: April 14, 2025 Heron Leal ProviderActiveStart: April 14, 2025 Team Status: Active Member Role/Relationship Status Dates Donald Lizarraga MD Primary Care Provider Active Start: April 28, 2025 Heron Leal ProviderActiveStart: April 28, 2025 Team Status: Inactive Member Role/Relationship Status Dates Donald Lizarraga MD Primary Care Provider Active Start: May 05, 2025 End: May 05, 2025JuKesha Castillo ProviderActiveStart: May 05, 2025 End: May 05, 2025 Goals (unrecognized section and content) Goals [...] BE BASED ON THE PRIMARY CLINICAL RECORDS. [employer] [facility]. provides no warranty or guarantee of the accuracy or completeness of information in this document.
--- NOTE | 2025-05-07 08:34 | PM.CN ---
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 pt previously evaluated by Dr Auguste for right hip pain, was deemed non surgical at that time per pt but not available note. Pain today in low back and right hip/thigh 10/10 stabbing intense deepa increasing with standing, walking, lifting, housework, activity, ADLs. denies falls/injury, does utilize cane. Patient noting worsening stabbing pain to groin and RUE. underwent lumbar MRI with results below. cc:: CC: Trista Lyman NP Review of Systems ROS Musculoskeletal Reports: back pain, extremity pain and joint pain PFSH PFSH Medical History Atrial fibrillation ?I48.91 - Unspecified atrial fibrillation (ICD-10) Low back pain ?M54.50 - Low back pain, unspecified (ICD-10) Osteoarthritis ?M19.90 - Unspecified osteoarthritis, unspecified site (ICD-10) Colon cancer ?C18.9 - Malignant neoplasm of colon, unspecified (ICD-10) Obesity ?E66.9 - Obesity, unspecified (ICD-10) Kidney stone ?N20.0 - Calculus of kidney (ICD-10) Enlarged prostate ?N40.0 - Benign prostatic hyperplasia without lower urinary tract symptoms (ICD-10) Pulmonary embolism ?I26.99 - Other pulmonary embolism without acute cor pulmonale (ICD-10) Sleep apnea ?G47.30 - Sleep apnea, unspecified (ICD-10) High cholesterol ?E78.00 - Pure hypercholesterolemia, unspecified (ICD-10) Hypertension ?I10 - Essential (primary) hypertension (ICD-10) Surgical History S/P TURP ?Z90.79 - Acquired absence of other genital organ(s) (ICD-10) History of colon resection ?Z90.49 - Acquired absence of other specified parts of digestive tract (ICD-10) Social History Little interest or pleasure in doing things: not at all Feeling down, depressed, or hopeless: not at all Meds Home Medications and Allergies Home Medications ?Medication ?Instructions ?Recorded ?Confirmed ?Type atorvastatin 20 mg tablet 20 mg PO QDAY 12/22/22 04/28/25 History calcium carbonate 300 mg PO DAILY 12/22/22 04/28/25 History flecainide 100 mg tablet 100 mg PO Q12H 12/22/22 04/28/25 History hydrochlorothiazide 25 mg tablet 25 mg PO QDAY 12/22/22 04/28/25 History lisinopril 40 mg tablet 40 mg PO QDAY 12/22/22 04/28/25 History loratadine 10 mg tablet 10 mg PO DAILY 12/22/22 04/28/25 History metoprolol succinate 100 mg 100 mg PO QDAY 12/22/22 04/28/25 History tablet,extended release 24 hr multivitamin 1 tab PO DAILY 12/22/22 04/28/25 History potassium chloride 20 mEq 20 meq PO BID 12/22/22 04/28/25 History tablet,extended release(part/cryst) (Klor-Con M) warfarin 5 mg tablet 5 mg PO QDAY 12/22/22 04/28/25 History gabapentin 300 mg capsule 900 mg PO BID 01/17/24 04/28/25 History baclofen 10 mg tablet 10 mg PO TID PRN pain 06/25/24 04/28/25 History hydrocodone 5 mg-acetaminophen 325 1 tab PO BID PRN pain #60 tabs 04/17/25 04/28/25 Rx mg tablet Allergies Allergy/AdvReac Type Severity Reaction Status Date / Time No Known Drug Allergies Allergy Verified 04/28/25 08:23 Exam Constitutional Documenting provider has reviewed patient's vital signs: yes Common normals: no apparent distress, oriented x3, healthy appearing, alert and well nourished General appearance: cooperative [facility] Common normals: normocephalic, hearing grossly normal bilaterally and moist oral mucous membranes Head and scalp: normocephalic Eye Common normals: PERRL Pupil: PERRL Neck & C-Spine Common normals: full ROM General: normal visual inspection Chest Common normals: inspection of chest normal Respiratory Common normals: normal respiratory effort, no retractions and no use of accessory muscles Back & Pelvis Lumbar spine/lower back: ROM limited, pain with ROM, lumbar spinal tenderness and straight leg raise positive right Sacroiliac joints: SI joint(s) abnormal Other: positive radiculopathy right L1,2,3,4 strength 4/5 in RLE 5/5 in LLE Extremity Right lower extremity: hip joint Other: moderate pain with internal/external rotation of right hip Neuro Common normals: oriented x3 Sensorium/orientation: alert Psych Common normals: mental status grossly normal, thought process normal, cooperative, affect normal, speech normal and activity/motor behavior normal Speech: normal speech Thought process: normal thought process Results Imaging Lumbar MRI: Attestation: I have reviewed the pertinent imaging results. Radiologist's impression: Lumbar vertebral heights and alignment maintained. 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 Otherwise minimal multilevel intervertebral space narrowing elsewhere. There is a cleft of T2 signal involving the inferolateral aspect of the L2 vertebral body with corresponding diminished T2 and T1 signal and reactive edema noted suspicious for a late subacute fracture versus hypertrophic syndesmophytosis. An adjacent reactive changes. Otherwise bone marrow signal is grossly unremarkable. Multilevel facet arthropathy. Conus medullaris terminates normally at mid L2 level. Paraspinal soft tissues unremarkable. T12-L1: Anterior marginal endplate osteophytosis. Minimal facet arthropathy. No significant disc disease or canal or neural from narrowing identified. L1-2: Bulky right lateral endplate osteophytosis and far lateral lateral syndesmophytosis and hypertrophic spurring. This appears to displace the exiting right L1 nerve roots. Otherwise no significant disease canal narrowing or left neural from narrowing. There is moderate right foraminal narrowing due to encroaching osteophytosis. L2-3: Minimal broad-based disc bulge with moderate facet arthropathy and ligamentum flavum hypertrophy . There is moderate central canal stenosis. Gvlj-pi-dtdqxipe right moderate left neural foraminal narrowing. Bulky right anterolateral osteophytosis and spurring noted. L3-4: Broad-based disc bulge with right foraminal to extra foraminal zone annular fissure. Otherwise mild foraminal narrowing. Canal is patent. Moderate facet arthropathy. There is a left-sided synovial cysts at the dorsal aspect of the L4 facet joint L4-5: Broad-based disc bulge with right foraminal zone to extra foraminal zone T2 hyperintensity intensity suggestive of focal fissuring. Moderate severe facet arthropathy. There is moderate to severe right subarticular recess narrowing, correlate with possible right L5 radiculopathy. Xmjr-qj-dvvuopep left subarticular zone narrowing. Otherwise moderate right-sided and mild left-sided neural from narrowing. Mepi-ut-vokynzgc central canal stenosis. 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 Mild left subarticular zone effacement. Otherwise moderate severe right and vbes-ei-nwltwtfq left-sided neural foraminal narrowing. Bilateral facet arthropathy, moderate. Additional Findings Additional findings: If on a controlled substance or opioids, I have checked an [place] report on this patient and there are no aberrancies noted in the prescribing history.??If on a controlled substance or opioid a drug screen was completed and reviewed within the last year, and if there has not been a drug screen completed we ordered one today to monitor higher risk, state monitored pain medication use. As part of providing excellent, safe, comprehensive care, the following was completed at our patient's visit: 1. A medication reconciliation and review to ensure accurate knowledge of current/active medications, including asking our patients to inform us about any ntsb-kbk-bhzuzuc medications or herbal remedies/nutritional supplements/alternative remedies. 2. A review to specifically ensure our patients have had annual screening for screening for depression, screening for tobacco use, and screening for unhealthy alcohol use. For concerning screenings had a discussion with the patient, provided patient education, and recommended follow-up with primary care provider when appropriate. If patient noted with a risk of falling, they received education on strength, gait, and balance training to prevent future risk of falling. Portions of this note may have been carried over from the previous visit and updated as appropriate. Please note this office utilizes paper charting in addition to the electronic medical record. A list of current medications, vitals, and PMH is available there as the clinical staff outside of myself do not have access to [email or web address] charting during the clinic day operations. As part of providing quality comprehensive care the current medications, vitals, and PMH were reviewed in the paper chart. Assessment and Plan Assessment and Plan (1) Lumbar radiculopathy: (2) Lumbar stenosis with neurogenic claudication: (3) Lumbar degenerative disc disease: (4) Chronic use of opiate drug for therapeutic purpose: (5) Osteoarthritis of right hip: Qualifiers: Osteoarthritis type: primary Qualified Code(s): M16.11 - Unilateral primary osteoarthritis, right hip Plan The patient has had over 3 months of moderate to severe low back and right hip pain with functional impairment and inadequate response to conservative care including NSAIDS (unless there are contraindication such as concurrent blood thinners), multiple oral or topical pain medications, and home exercise program/physical therapy.? Patient has completed >6 weeks of guided home exercise program and/or formal physical therapy program without relief of their symptoms.? The Oswestry Disability Index was completed, and the patient scored a 58%.? right L2,3 L3,4 TFESI under fluoroscopy for lumbar radiculopathy, lumbar stenosis with NC, lumbar ddd consider repeat right hip injection, pt delaying hip replacement surgery at this time increase norco 7.5-325mg bid prn moderate to severe pain, with 5-325mg noting it takes 4 hours to start working then lasts for 4 hours. significant reduction in pain and improvement with standing, walking, lifting continue gabapentin 900mg bid cannot take nsaids, on coumadin f/u 2 weeks after injection
== END 2025-05-07 08:17 | disposition home or self-care (01) ==
PROVIDERS: PCP Family Medicine; Visit Provider Nurse Practitioner
DX: M54.16 Radiculopathy, lumbar region (principal); M48.062 Spinal stenosis, lumbar region with neurogenic claudication; M51.369 Other intervertebral disc degeneration, lumbar region without mention of lumbar back pain or lower extremity pain; Z79.891 Long term (current) use of opiate analgesic; M16.11 Unilateral primary osteoarthritis, right hip
CPT/HCPCS: G0463

== ENCOUNTER 2025-05-10 | Outpatient (RCR) | payer MEDICARE, SELFPAY | END 2025-06-08 23:59 | disposition home or self-care (01) | LOC: MM | PROVIDERS: PCP Family Medicine; Visit Provider Internal Medicine | DX: Z51.81 Encounter for therapeutic drug level monitoring (principal); Z79.01 Long term (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; I48.91 Unspecified atrial fibrillation | CPT/HCPCS: 85610; G0463 ==

== ENCOUNTER 2025-05-12 07:13 | Day surgery (SDC) | payer MEDICARE, SELFPAY ==
--- OUTSIDE RECORDS SUMMARY | 2025-05-07 09:45 | XMS_ITS | Encounter Summary ---
Author Organization [facility] Address [address] [place] [address] Care Team Providers Care Rotary Lithographic Press Operator Name Role Phone Rocio Bagley MD Primary Care Provider [phone] Reason for Visit * ReasonCommentsPain Encounter Details DateTypeDepartmentCare Team (Latest Contact Info)Sbohzfzkpil75/29/2025 10:45 AM EDTOffice Visit [facility] [address] [place] [phone] Jr. Mamadou Alcala, DO [address] [place] [address] Primary osteoarthritis of right hip (Primary Dx); Acute right hip pain Social History Tobacco UseTypesPacks/DayYears UsedDateSmoking Tobacco: NeverSmokeless Tobacco: Never Tobacco Cessation:Counseling Given: Not Answered Sex and Gender InformationValueDate RecordedSex Assigned at BirthNot on file Legal IwbEzvk4609/21/2022 7:40 PM EDTGender IdentityNot on fileSexual Orientation Not on filedocumented as of this encounter Progress Notes * Jr. Mamadou Alcala DO - 05/07/2025 10:45 AM EDT Images from the original note were not included. NAME: Evangelist Ybarra : 1955 HISTORY OF PRESENT ILLNESS: NEW PT Evangelist Ybarra is an 69 y.o. @ male. (NEW PT) (LAST APPT 02/2022) - (R) HIP DISCOMFORT FOR YRS, WORSENING ~09/2024 (7 MONTHS) WAS TOLD THAT HE NEEDS A (R) CLARY (DR. CARBONE) - WOULD LIKE A SECOND OPINION XRAY TODAY, 05/07/25 IN EPIC XRAY (R) HIP NWB 07/15/24 @[facility] (IN CHANGE) XRAYS, 01/31/22 IN EXA MRI L-SPINE 04/23/25 @[facility] (IN CHANGE) NO MDP / PREDNISONE S/P IA CORTISONE INJ 02/07/22 @[facility] S/P PT @[facility] S/P PT @[facility] 05/18/25 HX PAIN MGMT (LBP) - DR VILLA ; LUMAR JONEL 04/2022, 09/07/21 (R) KNEE ABLATION 04/28/25 PRESENTS AMBULATING WITH CANE. INTERMITTENT POSTERIOR PAIN - SHOOTING PAIN INTO GROIN / THIGH WITH AMBULATION / WB. DENIES RADIATION. DENIES SWELLING. DENIES N/T TO LEG. SOME STIFFNESS IN THE MORNING. LIMITED ROM WITH CERTAIN MOVEMENTS. DENIES WEAKNESS. DENIES POPPING / GRINDING. SLEEPS WITH PILLOWS UNDER LEGS - DENIES WAKING HS. NORCO 1.5MG PRN. SLEEPS WITH HEATING PAD - SOME RELIEF. TRIED VOLTAREN - NO RELIEF. PAST MEDICAL HISTORY: Medical History[1] PAST SURGICAL HISTORY: Surgical History[2] SOCIAL HISTORY: Social History Occupational History Not on file Tobacco Use Smoking status: Never Smokeless tobacco: Never Substance and Sexual Activity Alcohol use: Not on file Drug use: Not on file Sexual activity: Not on file ALLERGIES: Allergies[3] HOME MEDICATIONS: Current Outpatient Medications Medication Instructions atorvastatin (LIPITOR) 20 mg, Oral, Daily baclofen (Lioresal) 10 MG tablet Oral, 3 times daily Calcium Carbonate-Vitamin D (OSCAL 500 D-3 PO) Oral Calcium Carbonate-Vitamin D (OSCAL 500/200 D-3 PO) Oral clotrimazole (Lotrimin) 1 % cream Topical, 2 times daily flecainide (Tambocor) 100 MG tablet Oral gabapentin (NEURONTIN) 300 mg, Oral, 3 times daily hydroCHLOROthiazide (HYDRODIURIL) 25 mg, Oral, Daily lisinopril 40 mg, Oral, Daily metoprolol tartrate (LOPRESSOR) 100 mg, Oral, 2 times daily Multiple Vitamin (multivitamin) tablet 1 tablet, Oral, Daily olopatadine (Patanol) 0.1 % ophthalmic solution 1 drop, 2 times daily potassium chloride CR (Klor-Con M20) 20 MEQ ER tablet 20 mEq, Oral, Daily, Do not crush or chew. warfarin (Coumadin) 5 MG tablet Oral, Take as directed per After Visit Summary. REVIEW OF SYSTEMS: Review of Systems Vitals: There is no height or weight on file to calculate BMI. Tobacco Use: Low Risk (05/07/2025) Patient History Smoking Tobacco Use: Never Smokeless Tobacco Use: Never Passive Exposure: Not on file Alcohol Use: Not on file PHYSICAL EXAM: Hip Musculoskeletal Exam Gait Limp: right Inspection Leg length disparity: no discrepancy Right Erythema: none Ecchymosis: none Edema: none Deformity: none Palpation Right Increased warmth: none Tenderness: present Greater trochanteric region pain: mild Pubic rami pain: mild Lower lumbar region pain: mild Range of Motion Right Right hip range of motion is within functional limits. Active ROM: pain. Passive ROM: pain. Active extension: 20. Passive extension: 20. Active flexion: 90. Passive flexion: 90. Active internal rotation: 10. Passive internal rotation: 10. Active external rotation: 25. Passive external rotation: 25. Active adduction: 10. Passive adduction: 10. Active abduction: 20. Passive abduction: 20. Range of motion additional comments: Terminal motion on IR and ER limited by pain. Strength Right Right hip strength is normal. Extension: 5/5. Flexion: 4+/5. Flexion is affected by pain. Internal rotation: 5/5. External rotation: 5/5. Adduction: 5/5. Abduction: 4+/5. Abduction is affected by pain. Neurovascular Right Right hip neurovascular exam is normal. Pulses - PT: normal Posterior tibial: 2+ Special Tests Right Log roll test: positive General Constitutional: appears stated age Labored breathing: no Psychiatric: normal mood and affect Neurological: alert and oriented x3 Skin: intact Lymphadenopathy: none IMAGING: XR hip right 2 or 3 views Imaging Result: Imaging Result: AP and lateral of right hip showed femoral head to be well centered in the acetabulum without evidence of fracture or dislocation. There was some spurring at the inferior medial, and superior lateralaspect of the femoral acetabular junction. There was global decrease in joint space height. There was no acute bony process including but not limited to, fracture and/or dislocation. Impression moderate degenerative joint disease, right hip Procedures Orders Placed This Encounter Procedures XR hip right 2 or 3 views Reason for exam:: Pain ASSESSMENT: ICD-10-CM 1. Primary osteoarthritis of right hip M16.11 2. Acute right hip pain M25.551 XR hip right 2 or 3 views PLAN: We have discussed his x-rays physical exam and symptoms today length. We recommended a total hip arthroplasty. He will decide if he wants to come here orbital with Dr. Sanchez in [place] understandsthe risks and benefits of said surgical procedure. Questions answered in laymen terms at the bedside. The diagnosis, home exercise plan and any ongoing restrictions/ recommendations reviewed. If unable to be reached in office, I recommend evaluation at nearest Emergency Room if any symptoms worsened or new symptoms develop for requiring urgent evaluation. [1] History reviewed. No pertinent past medical history. [2] History reviewed. No pertinent surgical history. [3] No Known Allergies documented in this encounter Plan of Treatment Not on file documented as of this encounter Procedures Procedure NamePriorityDate/TimeAssociated DiagnosisCommentsXR HIP 2 OR 3 VW EVKIZBwujkvr81/29/2025 11:11 AM EDT Acute right hip pain documented in this encounter Results * XR hip right 2 or 3 views (05/07/2025 11:11 AM EDT)Anatomical RegionLaterality ModalityLower Extremities, HipRightRadiographic ImagingSpecimen (Source) Anatomical Location / LateralityCollection Method / VolumeCollection Time Received Time Narrative 05/07/2025 11:33 AM EDT Imaging Result: Imaging Result: AP and lateral of right hip showed femoral head to be well centered in the acetabulum without evidence of fracture or dislocation. ??There was some spurring at the inferior medial, and superior lateral ??aspect of the femoral acetabular junction. ??There was global decrease in joint space height. ??There was no acute bony process including but not limited to, fracture and/or dislocation. ??Impression moderate degenerative joint disease, right hip Authorizing ProviderResult TypeResult StatusJr. Mamadou Alcala DOI XR PROCEDURESFinal Result documented in this encounter Visit Diagnoses Diagnosis Primary osteoarthritis of right hip- Primary Acute right hip pain documented in this encounter Care Teams Team MemberRelationshipSpecialtyStart DateEnd Date Rocio Bagley MD [address] [place] [phone] PCP - GeneralFamily Jwywwpcq03/29/25documented as of this encounter
--- OUTSIDE RECORDS SUMMARY | 2025-05-07 10:15 | XMS_ITS | Encounter Summary ---
Author Organization [facility] Address [address] [place] [address] Care Team Providers Care Sql Server Dba Developer Name Role Phone Rocio Bagley MD Primary Care Provider [phone] Encounter Details DateTypeDepartmentCare Team (Latest Contact Info)Wnswdifrail31/29/2025 11:15 AM EDTAncillary Procedure [facility] [place] [facility] [address] [place] [phone] Social History Tobacco UseTypesPacks/DayYears UsedDateSmoking Tobacco: NeverSmokeless Tobacco: NeverSex and Gender InformationValueDate RecordedSex Assigned at BirthNot on fileLegal FgrQcvd9009/21/2022 7:40 PM EDTGender IdentityNot on fileSexual OrientationNot on filedocumented as of this encounter Plan of Treatment Not on file documented as of this encounter Procedures Procedure NamePriorityDate/TimeAssociated DiagnosisCommentsXR HIP 2 OR 3 VW EKQWPMrdiuzh50/29/2025 11:11 AM EDT Acute right hip pain [...] MemberRelationshipSpecialtyStart DateEnd Date Rocio Bagley MD [address] [place] [address] PCP - GeneralFamily Scbnvuxz69/29/25documented as of this encounter
--- OUTSIDE RECORDS SUMMARY | 2025-05-12 07:17 | XMS_ITS | CCD ---
Author Organization [facility] Care Team Providers Care Library Circulation Department Chief Name Role Phone PHYSICIAN, DEFAULT Unavailable Unavailable [...] DR DONALD Ruano Primary Care Unavailable FAWWAD, WMOACK H Attending Unavailable FAWWAD, WOMACK H Admitting [...] Admitting Unavailable HALKER ., JEET Attending Unavailable H[place]ISON[place], DR UNA Sofia Consulting Unavailable LIZARRAGA, DR DONALD Ruano Primary Care Unavailable HALKER ., JEET Consulting Unavailable LIZARRAGA, DR DONALD Ruano Primary Care Unavailable FREDRICK, DR HANEY Consulting Unavailable STEPANIC, DR HANEY [...] Provider Mariela Mosley APRN Attending Provider [phone] Donald Lizarraga Primary Care Unavailable Mariela Mosley Attending UnavailMariela Castillo Admitting UnavailPrasanth Singletary MD Unavailable Donald Lizarraga MD Primary Care Provider Merlyn Casillas CMA Attending Provider Unavaila fareed Granda MD, Blessing Attending Provider Donald Lizarraga MD Attending Provider Donald Lizarraga MD Primary Care Provider Peter Carbone DO Attending Provider [phone] Jesus Alberto JACKSON, Andrius Kimberlynytpérez Attending Unavailable Gibryant JACKSON, Andrius Vytautfeliz Attending Unavailable Gibryant JACKSON, Andrius Vytautas Attending Unavailable Giedraitis , Andrius Vytautas Attending Unavailable Gijoannarascotty JACKSON, Andrius Vytautas Attending Unavailable Gibryant JACKSON, Andrius Vytautfeliz Attending Unavailable Donald Lizarraga MD Primary Care Provider Jesus Alberto JACKSON, Andrius Attending Provider Donald Lizarraga MD Primary Care Provider [phone] JR. ALCALA GEORGE C Attending Unavaila ble JR. ALCALA GEORGE C Referring Unavaila ble Allergies Allergy ClassificationReported Allergen(s)Allergy TypeDate of OnsetReaction(s) Facility (18 sources)Other (Review Comments!); Translations: [OTHER (REVIEW COMMENTS!)] Propensity to adverse reactions to [id number] (14 sources)DecongestantDrug ehxpuoa40-05-7891IurqngbBet[facility]da [facility] Hospital (11 sources)DECONGESTANTSPropensity to adverse yphmefbvd52-15-3378UffnjexMartins Ferry HospitalComment on above:Onset Date: 05/03/2013 (3 sources)Allergies ReconciledPropensity to adverse reactionsUnkSt. Louis VA Medical Center [facility] Other (3 sources)patient allergy list reviewed by nurse or physiciaPropensity to adverse -[phone]:[facility] Other (1 source)No Known Medication Allergies; Translations: [No Known Medication Allergies]Propensity to adverse reactions (disorder)[facility] Repository Medications Current Medications MedicationDrug Class(es)DatesSig (Normalized)Sig (Original)acetaminophen 325 mg / oxyCODONE hydrochloride 5 mg oral tablet (12 sources)Opioid AgonistStart: 14-54-9014icuq 1 tablet by mouth every eight hours as neededOxycodone-Acetaminophen (Percocet) 5-325 mg tablet Active 1 TAB PO Every 8 hours as needed 0 May 05, 2025 12:00am Complies with drug therapy End: 68-56-0916ureGOCEHJ-acetaminophen (PERCOCET) 5-325 MG tablet Indications: Preop cardiovascular exam , PAF (paroxysmal atrial fibrillation) (HCC) , Anticoagulated , JAVED on CPAP , Obesity, unspecified classification, unspecified obesity type, unspecified whether serious comorbidity present oxycodone-acetaminophen 5 mg-325 mg tablet 0 03/29/2023 Discontinuedatorvastatin 20 mg oral tablet (20 sources)HMG-CoA Reductase InhibitorStart: 74-89-9687Gzkmytumlqdy 20 mg tablet Active 0 .ROUTE .COMPLEX 90 May 06, 2024 8:50pm TAKE 1 TABLET AT BEDTIME Complies with drug therapyStart: 84-12-0705Yukszxngrnql Active 0 .ROUTE .COMPLEX May 06, 2024 8:50pm TAKE 1 TABLET AT BEDTIMEStart: 12-20-2017 End: 40-77-9523alde 1 tablet by mouth once daily at bedtimeAtorvastatin 20 mg tablet Discontinued 20 MG PO Daily at bedtime October 18, 2023 12:00am May 06, 2024 8:50pm FreeTextSig: TAKE 1 TABLET AT BEDTIME; Note: Source Status: Taking; Refills: 3; Qty: 90 Tablet; Provider: Elham Chan ( ) azithromycin 250 mg oral tablet (2 sources)Macrolide AntimicrobialStart: 66-20-9313Hkzajqrpbohp 250 MG as directed Orally 2 tabs po today, then 1 tab daily x 4 more days for 5 Oct, Activebetamethasone 0.5 mg/ml / clotrimazole 10 mg/ml topical cream (18 sources)Azole Antifungal, CorticosteroidStart: 10-18-2023 End: 55-21-7879Cqlqjorpguhr-Betamethasone 1-0.05 % cream Active 1 APPLIC TOPICAL Twice daily as needed for rash 451 April 04, 2024 12:18pm Complies with drug therapyStart: 71-17-0586Blkbgdgvxmlg-Betamethasone 1-0.05 % 1 application Externally Twice a day, as needed for 30 days Mar, Activecalcium carbonate 1250 mg oral tablet (20 sources)Start: 10-18-2023 End: 73-66-1282rsqe 1 tablet by mouth once dailyCalcium Carbonate 500 mg calcium (1,250 mg) tablet Active 500 MG PO Daily October 19, 2023 12:00am Complies with drug therapyStart: 28-23-0406xnyz 500 mg by mouth twice dailyOs-Avery 500 500 mg, Oral, BID, Refills(s) 0, Prophylaxis Start Date: 04/02/20 Status: Orderedtake 1 tablet by mouth once dailyoscal 500 + D 500 mg / 125 IU 1 tablet orally once a day ActiveCalcium Carbonate / Vitamin D (4 sources)Calcium Carbonate-Vitamin D (OSCAL 500 D-3 PO) Take by mouth Active Calcium Carbonate-Vitamin D (OSCAL 500/200 D-3 PO) Take by mouth Active cetirizine hydrochloride 10 mg oral tablet (3 sources)Histamine-1 Receptor AntagonistStart: 71-06-6777qucc 1 tablet by mouth once daily as neededCetirizine (Zyrtec) 10 mg tablet Active 10 MG PO Daily as needed February 12, 2025 12:00am Complies with drug therapyclotrimazole 10 mg/ml topical cream (2 sources)Azole Antifungalclotrimazole (Lotrimin) 1 % cream Apply topically in the morning and before bedtime. Activeflecainide acetate 100 mg oral tablet (20 sources)AntiarrhythmicStart: 52-75-4840bvsy 1 tablet by mouth twice daily flecainide (TAMBOCOR) 100 MG tablet Indications: Persistent atrial fibrillation (HCC) Take 1 Tabletby mouth 2 times daily. 180 Tablet 3 09/27/2024 ActiveStart: 16-64-0135ggzbehktbz (TAMBOCOR) 100 MG tablet Indications: Persistent atrial fibrillation (HCC) TAKE 1 TABLETTWICE A DAY 180 Tablet 3 12/28/2023 ActiveStart: 57-46-1833dowp 0.5 tablet by mouth every twelve hoursFlecainide 100 mg tablet Active MG PO October 18, 2023 12:00am FreeTextSi.5 tablet Orally every12 hrs; Note: Source Status: Taking; Provider: Elham Chan ( ) Complies with drug therapyStart: 09-03-2020 End: 47-36-6148bjto 1 tablet by mouth twice dailyflecainide (TAMBOCOR) 100 MG tablet Indications: Persistent atrial fibrillation (HCC) Take 1 Tabletby mouth 2 times daily. 180 Tablet 3 02/14/2023 05/15/2023 ActiveStart: 90-49-5887dice 0.5 tablet by mouth every twelve hoursFlecainide Active MG PO October 18, 2023 12:00am FreeTextSi.5 tablet Orally every 12 hrs; Note:Source Status: Taking; Provider: Elham Chan ( )take 0.5 tablet by mouth every twelve hoursFlecainide Acetate 100 MG 0.5 tablet Orally every 12 hrs Activegabapentin 300 mg oral capsule (20 sources)Anti-epileptic AgentStart: 66-57-3142Gzsdzpldyg 300 mg capsule Active MG PO October 18, 2023 12:00am FreeTextSi qam and 1 qpm and 2 qhs Orally 4 times a day; Note: Source Status: Taking; Provider: Elham Chan ( ) Complies with drug therapyStart: 73-33-4076Mvdjfwwsmr Active MG PO October 18, 2023 12:00am FreeTextSi qam and 1 qpm and 2 qhs Orally 4 times a day; Note: Source Status: Taking; Provider: Elham Chan ( ) Start: 57-97-5751fjxugbqbgy Refills(s) 0, Neuropathy Start Date: 07/29/22 Status: OrderedStart: 78-67-1174omwggpkaze Refills(s) 0 Start Date: 07/29/22 Status: Orderedtake 1 capsule by mouth every twenty-four hoursGabapentin 100 MG 1 capsule Orally Once a day ActivehydroCHLOROthiazide 25 mg oral tablet (20 sources)Thiazide DiureticStart: 02-19-2024 End: 78-43-7833Pbamqqmhhpkmnuufldt 25 mg tablet Active 0 .ROUTE .COMPLEX 90 February 27, 2025 1:51pm TAKE 1 TABLET DAILY Complies with drug therapyStart: 11-19-2018 End: 95-97-2883khsu 1 tablet by mouth once dailyHydrochlorothiazide 25 mg tablet Discontinued 25 MG PO Daily October 18, 2023 12:00am February 19, 2024 11:43am FreeTextSig: TAKE 1 TABLET DAILY; Note: Source Status: Taking; Refills: 3; Qty: 90 Tablet; Provider: Elham Chan ( )Immodium A-D 2 mg Cap (2 sources)Start: 16-95-9096ftxw 1 tablet by mouth every four hours as needed Immodium A-D 2 mg Cap = 1 tab(s), Oral, q4hr, PRN for loose stools, Refills(s) 0 Start Date: 12/20/17 Status: Orderedlisinopril 40 mg oral tablet (20 sources)Angiotensin Converting Enzyme InhibitorStart: 09-07-2023 End: 63-66-8105Hebctlcvnn 40 mg tablet Active 0 .ROUTE .COMPLEX 90 June 12, 2024 12:05pm TAKE 1 TABLET DAILY Complies with drug therapyStart: 00-81-5942Byistfowue 40 mg tablet Active 0 .ROUTE .COMPLEX 90 September 07, 2023 3:57pm TAKE 1 TABLET DAILYStart: 78-86-0537Nfovixklox Active 0 .ROUTE .COMPLEX 90 September 07, 2023 4:57pm TAKE 1 TABLET DAILYStart: 12-20-2017 End: 54-88-1193ashm 1 tablet by mouth once dailyLisinopril 40 mg tablet Discontinued 40 MG PO Daily September 07, 2023 1:00am September 07, 2023 4 :57pmloperamide hydrochloride 2 mg oral capsule (1 source)Opioid AgonistStart: 66-29-6149pdla 1 tablet by mouth every four hours as neededImmodium A-D 2 mg Cap = 1 tab(s), Oral, q4hr, PRN for loose stools, Refills(s) 0 Start Date: 12/20/17 Status: Orderedmagnesium sulfate 225 MG / potassium chloride 188 MG / sodium sulfate 1479 MG Oral Tablet [Sutab] (1 source)Start: 78-55-5551ikkq 1 tablet by mouth onceSutab oral tablet See Instructions, 1 EA, Refill(s) 0, KP, Please follow instructions per packaging and physician's handout, [facility]/pharmacy #[id number], 183.8, cm, 07/29/22 14:15:00 EST, Height/Length Dosing, 145.3, kg, 07/29/22 14:15:00 EST, Weight Dosing Start Date: 07/29/22 Status: OrderedmethylPREDNISolone 4 mg oral tablet (2 sources)CorticosteroidStart: 37-85-2732qwbgvkMKXASPBifbtu 4 MG as directed Orally for 6 days Oct, Dsjapu62 hr metoprolol succinate 100 mg extended release oral tablet (20 sources)beta-Adrenergic BlockerStart: 11-19-2018 End: 56-81-3171saal 1 tablet by mouth once dailymetoprolol (TOPROL-XL) 100 mg XL tablet Take 1 Tablet by mouth daily. 90 Tablet 3 09/27/2024 ActiveStart: 03-08-7790behi 1 tablet by mouth once dailymetoprolol tartrate 100 mg Tab 100 mg = 1 tab(s), Oral, Daily, Refills(s) 0, High blood pressure Start Date: 12/20/17 Status: OrderedMultiple Vitamin (multivitamin) tablet (2 sources)take 1 tablet by mouth once dailyMultiple Vitamin (multivitamin) tablet Take 1 tablet by mouth Daily ActiveMultivitamin (Multiple Vitamins) tablet (8 sources)Start: 55-65-0960hqnv 1 tablet by mouth once dailyMultivitamin (Multiple Vitamins) tablet Active 1 TAB PO Daily October 18, 2023 12:00am Complies with drug therapyStart: 69-53-8217ddwh 1 tablet by mouth once daily Multivitamin (Multiple Vitamins) tablet Active 1 TAB PO Daily October 17, 2023 11:00pmStart: 29-60-1915tgov 1 tablet by mouth once dailyMultivitamin (Multiple Vitamins) tablet Active 1 TAB PO Daily October 18, 2023 12:00amMultivitamins and Minerals (3 sources)Start: 24-35-3565Xsxzgbllbqemf and Minerals Oral, Daily, Refill(s) 0, Prophylaxis Start Date: 12/20/17 Status: OrderedOlopatadine 0.1 % drops (9 sources)Start: 05-82-1532wadr 1 drop(s) into the eye(s) twice daily Olopatadine 0.1 % drops Active 1 DROPS OPHTHALMIC Twice daily December 25, 2023 2:36pm FreeTextSig:INSTILL 1 DROP INTO AFFECTED EYE TWICE A DAY FOR 30 DAYS; Note: Source Status: Taking; Refills: 3; Qty: 5 Milliliter; Provider: Elham Chan ( )Start: 10-19-2023 End: 01-94-0453urms 1 drop(s) into the eye(s) twice dailyOlopatadine 0.1 % drops Discontinued 1 DROPS OPHTHALMIC Twice daily October 19, 2023 9:48am December 082023 2:36pm FreeTextSig: INSTILL 1 DROP INTO AFFECTED EYE TWICE A DAY FOR 30 DAYS; Note: Source Status: Taking; Refills: 3; Qty: 5 Milliliter; Provider: Elham Chan ( )Start: 10-18-2023 End: 47-59-0820xnpn 1 drop(s) into the eye(s) twice dailyOlopatadine 0.1 % drops Discontinued DROPS OPHTHALMIC October 17, 2023 11:00pm October 19, 2023 9:52am FreeTextSig: INSTILL 1 DROP INTO AFFECTED EYE TWICE A DAY FOR 30 DAYS; Note: Source Status: Taking; Refills: 3; Qty: 5 Milliliter; Provider: Elham Chan ( )microencapsulated potassium chloride 20 meq extended release oral tablet (20 sources)Start: 10-19-2023 End: 02-86-9060Erqaddxbq Chloride (Klor-Con M20) 20 mEq tablet,ER particles/crystals Active 20 MEQ PO Twice daily October 19, 2023 12:00am Complies with drug therapyStart: 04-05-2023 End: 52-96-4255Mjnnlrsxz Chloride (Klor-Con M20) 20 mEq tablet,ER particles/crystals Active 20 MEQ PO Twice daily October 19, 2023 12:00amStart: 09-03-2020 End: 44-81-6967Cajg-Con M20 20 MEQ controlled release tablet Indications: PAF (paroxysmal atrial fibrillation) (HCC) , Anticoagulated , Preop cardiovascular exam , JAVED on CPAP , Obesity, unspecified classification,unspecified obesity type, unspecified whether serious comorbidity present TAKE 1 TABLET TWICE A DAY 180 Tablet 3 03/01/2022 ActiveStart: 66-72-6078Fotm-Con 40 mEq, Oral, BID, Refills(s) 0, Prophylaxis Start Date: 12/20/17 Status: Orderedpotassium chloride CR (Klor-Con M20) 20 MEQ ER tablet Take 20 mEq by mouth Daily Do not crush or chew. ActivePotassium Chloride 40 MEQ/15ML (20%) SOLN Indications: Preop cardiovascular exam , PAF (paroxysmal atrial fibrillation) , Anticoagulated , JAVED on CPAP , Obesity, unspecified classification, unspecified obesity type, unspecified whether serious comorbidity present 15 mL. Activetake 1 tablet by mouth every twenty-four hoursPotassium Chloride Marya ER 20 MEQ 1 tablet with food Orally Once a day ActivePsyllium Seed (Sugar) (Metamucil (Sugar)) powder (8 sources)Start: 64-87-0501Aqyzclnm Seed (Sugar) (Metamucil (Sugar)) powder Active 1 TBSP PO Daily October 18, 2023 12:00am Complies with drug therapyStart: 20-26-0369Ubaqtjwq Seed (Sugar) (Metamucil (Sugar)) powder Active 1 TBSP PO Daily October 17, 2023 11:00pmStart: 79-42-7480Hklbxokl Seed (Sugar) (Metamucil (Sugar)) powder Active 1 TBSP PO Daily October 18, 2023 12:00amsildenafil 25 mg oral tablet (9 sources)Phosphodiesterase 5 InhibitorStart: 39-49-5386yqbkruwbvo citrate (VIAGRA) 25 MG tablet Take 25 mg by mouth. 01/24/2023 ActiveSodium Sulfate-Mag Sulfate-KCl (Sutab) 6905-044-584 MG TABS (7 sources)Start: 02-88-8851Gfdoxt Sulfate-Mag Sulfate-KCl (Sutab) 1718-290-121 MG TABS Take by mouth. 07/29/2022 ActiveStart: 62-93-0035Xhofsj Sulfate-Mag Sulfate-KCl (Sutab) 2785-899-480 MG TABS Take by mouth. 0 07/29/2022 ActiveSuper B Complex (6 sources)Start: 26-60-3139vkgr 1 tablet by mouth once dailySuper B Complex 1 tab(s), Oral, Daily, Refill(s) 0, Prophylaxis Start Date: 04/02/20 Status: OrderedtiZANidine 4 mg oral tablet (10 sources)Central alpha-2 Adrenergic AgonistStart: 57-30-0965kixr 1 tablet by mouth once daily at [...] mg oral tablet (20 sources)Vitamin K AntagonistStart: 29-94-1815Fmangxcd Active MG PO As Directed October 18, 2023 12:00am FreeTextSig: as directed orally; Note: Source Status: Taking; Provider: Elham Chan ( )Start: 07-29-2022 warfarin Refills(s) 0, Blood Thinner Start Date: 07/29/22 Status: OrderedStart: 43-82-7389jcwwbbat Refills(s) 0 Start Date: 07/29/22 Status: OrderedStart: 09-03-2020 End: 71-79-5001Tmcjpucn 5 mg tablet Active MG PO As Directed October 18, 2023 12:00am FreeTextSig: as directed orally; Note: Source Status: Taking; Provider: Elham Chan ( ) Complies with drug therapy Completed/Discontinued Medications MedicationDrug Class(es)DatesSig (Normalized)Sig (Original)acetaminophen 325 mg / HYDROcodone bitartrate 5 mg oral tablet (11 sources)Opioid Agonist End: 09-09-2939bngcztukobd-acetaminophen (NORCO) 5-325 MG per tablet Indications: Preop cardiovascular exam , PAF (paroxysmal atrial fibrillation) (HCC) , Anticoagulated , JAVED on CPAP , Obesity, unspecified classification, unspecified obesity type, unspecified whether serious comorbidity present hydrocodone 5 mg-acetaminophen 325 mg tablet 0 03/29/2023 [id number] 200 actuat albuterol 0.09 mg/actuat metered dose inhaler (7 sources)beta2-Adrenergic AgonistStart: 05-29-2024 End: 14-10-4467Jkmpqwvfv Sulfate 90 mcg/actuation HFA aerosol inhaler Discontinued 1 INH INHALATION Every 6 hours May 29, 2024 1:00am February 12, 2025 9:29amStart: 05-08-2024 End: 32-33-7001Glkhgbhsc Sulfate 90 mcg/actuation HFA aerosol inhaler Discontinued 2 INH INHALATION EVERY 4-6 HOURS as needed for shortness of breath or wheezing 6.7 0 May 08, 2024 12:00am May 260:20amAlbuterol Sulfate 90 mcg/actuation HFA aerosol inhaler (3 sources)Start: 05-08-2024 End: 18-45-3089Elkhvrino Sulfate 90 mcg/actuation HFA aerosol inhaler Discontinued 2 INH INHALATION EVERY 4-6 HOURS as needed for shortness of breath or wheezing 6.7 May 07, 2024 11:00pm May 26, 2024 9:20amamLODIPine 10 mg oral tablet (20 sources)Dihydropyridine Calcium Channel BlockerStart: 10-18-2023 End: 17-50-1884uwou 1 tablet by mouth once dailyAmlodipine 10 mg tablet Discontinued 10 MG PO Daily October 18, 2023 12:00am October 19, 2023 10:34am AMLODIPINE BESYLATE ORAL amLODIPine Besylate Not-Taking ActiveamLODIPine Besylate Not-Taking/PRNAMLODIPINE BESYLATE ORAL amLODIPine Besylate Not-Taking 0 ActiveamLODIPine Besylate Not-Takingamoxicillin 875 mg oral tablet (6 sources)Penicillin-class AntibacterialStart: 67-52-7284cfrx 1 tablet by mouth every twelve hoursAmoxicillin 875 MG 1 tablet Orally Twice a day for 10 day(s) Mar, Not-Taking/PRNascorbic acid 500 mg oral capsule (20 sources)Vitamin CStart: 10-18-2023 End: 53-22-4426Ttxrfygv Acid (Vitamin C) 500 mg capsule Discontinued MG PO October 18, 2023 12:00am October 19, 2023 10:33amStart: 10-18-2023 End: 28-50-0430Reqnivqw Acid (Vitamin C) Discontinued MG PO October 18, 2023 12:00am October 19, 2023 10:33amVitamin C Not-Taking/PRN End: 39-83-5326ehnw 1 tablet by mouth once dailyAscorbic Acid 1000 MG TABS Vitamin C 1,000 mg tablet Take 1 tablet every day by oral route. 0 03/29/2023 DiscontinuedVitamin C Yml-TvoehqWyobg-92 (6 sources)Aspir-81 Not-Taking/PRNAspir-81 Not-Takingaspirin 81 mg delayed release oral tablet (8 sources)Platelet Aggregation Inhibitor, Nonsteroidal Anti-inflammatory Drug Start: 10-18-2023 End: 25-59-1318zowe 1 tablet by mouth once dailyAspirin 81 mg tablet,delayed release (DR/EC) Discontinued 81 MG PO Daily October 18, 2023 12:00am October 19, 2023 10:33ambaclofen 10 mg oral tablet (20 sources)gamma-Aminobutyric Acid-ergic AgonistStart: 11-13-2018 End: 03-68-6968vhvn 1 tablet by mouth at bedtimebaclofen (LIORESAL) [...] oral capsule (12 sources)Non-narcotic AntitussiveStart: 10-19-2023 End: 71-63-6412Twjacnuksla 200 mg capsule Discontinued 200 MG PO 2-3 TIMES PER DAY as needed for cough 30 May 29, 2024 1:00am February 12, 2025 9:29am carvedilol 3.125 mg oral tablet (14 sources)alpha-Adrenergic Yadiel, beta-Adrenergic BlockerStart: 10-18-2023 End: 09-22-4825hoga 1 tablet by mouth twice daily at mealtimeCarvedilol 3.125 mg tablet Discontinued 3.125 MG PO Twice daily October 18, 2023 12:00am October 19, 2023 10:34am must administer with a meal/foodCarvedilol Not-Taking/PRN Carvedilol Not-Takingcefdinir 300 mg oral capsule (12 sources)Cephalosporin AntibacterialStart: 10-19-2023 End: 30-23-4972jnrq 1 capsule by mouth twice dailyCefdinir 300 mg capsule Discontinued 300 MG PO Twice daily 14 May 29, 2024 11:13am February 12, 2025 9:30amcholecalciferol 0.05 mg oral capsule (11 sources)Vitamin D End: 65-28-6501vbhk 1 capsule by mouth once dailyCholecalciferol 50 MCG (2000 UT) CAPS Vitamin D3 50 mcg (2,000 unit) capsule Take 1 capsule every day by oral route. 0 03/29/2023 Discontinueddocosahexaenoic acid 120 mg / eicosapentaenoic acid 180 mg oral capsule (8 sources)Start: 10-18-2023 End: 75-07-2420snjk 1 capsule by mouth once dailyDocosahexaenoic Acid-Epa (Fish Oil) 120-180 mg capsule Discontinued 1 CAP PO Daily October 172:00am October 19, 2023 10:35amdoxycycline hyclate 100 mg oral capsule (6 sources)Tetracycline-class DrugStart: 05-08-2024 End: 42-13-1074vrzw 1 capsule by mouth twice dailyDoxycycline Hyclate 100 mg capsule Discontinued 100 MG PO Twice daily 14 7 0 May 08, 2024 12:00am May 26, 2024 10:21amFish Oils (6 sources)Fish Oil Not-Taking/PRNFish Oil Not-Takingloratadine 10 mg oral tablet (20 sources)Start: 12-20-2017 End: 52-77-1686yteh 1 tablet by mouth once dailyLoratadine 10 mg tablet Discontinued 10 MG PO Daily October 18, 2023 12:00am February 12, 2025 9:32am FreeTextSi tablet once a day; Note: Source Status: Taking; Provider: Elham Chan ( )Loratadine Not-TakingMulti Vitamin Mens (6 sources)Multi Vitamin Mens Not-Taking/PRNMulti Vitamin Mens Not-Taking olopatadine 1 mg/ml ophthalmic solution (20 sources)Histamine-1 Receptor InhibitorStart: 41-95-2498thet 1 drop(s) into the eye(s) twice dailyOlopatadine Active 1 DROPS OPHTHALMIC Twice daily December 25, 2023 3:36pm FreeTextSig: INSTILL 1 DROP INTO AFFECTED EYE TWICE A DAY FOR 30 DAYS; Note: Source Status: Taking; Refills: 3; Qty: 5 Milliliter; Provider: Elham Chan ( )Start: 10-19-2023 End: 40-29-6309pbus 1 drop(s) into the eye(s) twice dailyOlopatadine Discontinued 1 DROPS OPHTHALMIC Twice daily October 19, 2023 10:48am December 25, 2023 3:36pm FreeTextSig: INSTILL 1 DROP INTO AFFECTED EYE TWICE A DAY FOR 30 DAYS; Note: Source Status: Taking; Refills: 3; Qty: 5 Milliliter; Provider: Elham Chan ( )Start: 49-21-2964vres 1 drop(s) into the eye(s) twice dailyOlopatadine Active 1 DROPS OPHTHALMIC Twice daily October 19, 2023 10:48am FreeTextSig: INSTILL 1DROP INTO AFFECTED EYE TWICE A DAY FOR 30 DAYS; Note: Source Status: Taking; Refills: 3; Qty: 5 Milliliter; Provider: Elham Chan ( )Start: 10-18-2023 End: 40-40-5420voyh 1 drop(s) into the eye(s) twice dailyOlopatadine 0.1 % drops Discontinued 1 DROPS OPHTHALMIC Twice daily 5 2 October 19, 2023 10:48am December 25, 2023 3:36pm FreeTextSig: INSTILL 1 DROP INTO AFFECTED EYE TWICE A DAY FOR 30 DAYS; Note: Source Status: Taking; Refills: 3; Qty: 5 Milliliter; Provider: Elham Chan ( )Start: 10-18-2023 End: 94-01-3599otbf 1 drop(s) into the eye(s) twice dailyOlopatadine Discontinued DROPS OPHTHALMIC October 18, 2023 12:00am October 19, 2023 10:52am FreeTextSig: INSTILL 1 DROP INTO AFFECTED EYE TWICE A DAY FOR 30 DAYS; Note: Source Status: Taking; Refills: 3; Qty: 5 Milliliter; Provider: Elham Chan ( )Start: 47-22-3410ojveiqleqax 0.7% ophthalmic solution Refill(s) 0 Start Date: 07/29/22 Status: Orderedtake 1 drop(s) into the eye(s) in the morningolopatadine (Patanol) 0.1 % ophthalmic solution 1 drop in the morning and 1 drop before bedtime. Activeolopatadine (PATANOL) 0.1 % ophthalmic solution Indications: Preop cardiovascular exam , PAF (paroxysmal atrial fibrillation) , Anticoagulated , JAVED on CPAP , Obesity, unspecified classification, unspecified obesity type, unspecified whether serious comorbidity present olopatadine 0.1 % eye drops ActiveOlopatadine HCl 0.1 % INSTILL 1 DROP INTO AFFECTED EYE TWICE A DAY FOR 30 DAYS for 30 ActiveOlopatadine HCl 0.1 % INSTILL 1 DROP INTO AFFECTED EYE TWICE A DAY FOR 30 DAYS for 30 Activeondansetron 4 mg disintegrating oral tablet (11 sources)Serotonin-3 Receptor Antagonist End: 14-04-7979jkdcfahzwlf (ZOFRAN-ODT) 4 MG disintegrating tablet Indications: Preop cardiovascular exam , PAF (paroxysmal atrial fibrillation) (HCC) , Anticoagulated , JAVED on CPAP , Obesity, unspecified classification, unspecified obesity type, unspecified whether serious comorbidity present ondansetron 4 mg disintegrating tablet 0 03/29/2023 DiscontinuedpredniSONE 20 mg oral tablet (20 sources)Start: 05-26-2024 End: 61-36-6467Xquzcqznix 20 mg tablet Discontinued 0 PO Daily 11 9 May 26, 2024 1:00am February 12, 2025 9:31am Take 2 tabs x 3 days, take 1 tab x 3 days, take 1/2 tab x 3 days orally daily;Start: 05-08-2024 End: 07-56-5439fvir 1 tablet by mouth once dailyPrednisone 50 mg tablet Discontinued 50 MG PO Daily 5 5 0 May 08, 2024 12:00am May 10:20am End: 33-57-6098ltsmueLDOS (DELTASONE) 20 MG tablet Indications: Preop cardiovascular exam , PAF (paroxysmal atrialfibrillation) (HCC) , Anticoagulated , JAVED on CPAP , Obesity, unspecified classification, unspecified obesity type, unspecified whether serious comorbidity present prednisone 20 mg tablet 0 03/29/2023 DiscontinuedPsyllium (6 sources)Metamucil 48.57 % Orally Not-Taking/PRNMetamucil 48.57 % Orally Not-Takingtamsulosin hydrochloride 0.4 mg oral capsule (15 sources)alpha-Adrenergic Yadiel End: 45-95-5889eobu 1 capsule by mouth once dailytamsulosin (FLOMAX) [...] colon; Translations: [Malignant neoplasm of colon, unspecified]Onset: 554712-23-1699HxdzwedXnkboxw dysrhythmias (20 sources)Paroxysmal atrial fibrillation; Translations: [Paroxysmal atrial fibrillation]Onset: 12-28-2018 Resolved: 65-19-4912SawjerzJiggmiv obstructive pulmonary disease and bronchiectasis (12 sources)Bronchitis, not specified as acute or chronic; Translations: [Bronchitis]EpisodicComplications of surgical procedures or medical care (7 sources)Short bowel syndrome; Translations: [Postsurgical malabsorption, not elsewhere classified]ChronicDisorders of lipid metabolism (3 sources)Hyperlipidemia; Translations: [Hyperlipidemia, unspecified]Chronic Essential hypertension (20 sources)Hypertensive disorder; Translations: [Essential (primary) hypertension]Onset: 350639-50-5859SgzagibTaulllkoxmxqr and screening for infectious disease (3 sources)Vaccination given; Translations: [Encounter for immunization]Episodic Mycoses (9 sources)Candidiasis of skin; Translations: [Candidiasis of skin and nail] EpisodicOsteoarthritis (20 sources)Arthritis; Translations: [Unspecified osteoarthritis, unspecified site]Onset: 129107-96-7392HcgwqkeLeysd aftercare (20 sources)Drug therapy finding; Translations: [detention (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]Onset: 95-51-3688AuubpuspKixax aftercare (1 source)detention (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; Translations: [MASTER BAKER CURRNT USE 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]Onset: 24-81-9949HrejyqovCvpys aftercare (5 sources)Encounter for therapeutic drug level monitoring; Translations: [ENC THERAPEUTC DRUG LEVL MONITORING]Onset: 10-52-2075KlfzbujbWzwum and unspecified benign neoplasm (6 sources)Tubular adenoma of colon; Translations: [Tubular adenoma of colon] EpisodicOther and unspecified benign neoplasm (1 source)Polyp of colon; Translations: [Polyp of colon]Onset: 10-06-2022 EpisodicOther circulatory disease (3 sources)Elevated blood-pressure reading without diagnosis of hypertension; Translations: [Elevated blood-pressure reading, without diagnosis of hypertension]EpisodicOther congenital anomalies (3 sources)Congenital deformity of spine; 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]Onset: 08-80-0288OgcteywGivyn connective tissue disease (6 sources)Peripheral neuralgia; Translations: [Neuralgia and neuritis, unspecified]EpisodicOther connective tissue disease (5 sources)Other muscle spasm; Translations: [OTHER MUSCLE SPASM]Onset: 35-22-5901ErigkqiiAnmlx connective tissue disease (3 sources)Neuralgia; Translations: [Neuralgia and neuritis, unspecified] EpisodicOther diseases of kidney and ureters (1 source)Urinary tract obstruction; Translations: [Other obstructive and reflux uropathy]Onset: 69-39-9903LcovqejjUmoxg disorders of stomach and duodenum (1 source)Other diseases of stomach and duodenum; Translations: [Other diseases of stomach and duodenum]Onset: 35-21-0571UzthcsbsQlgnb lower respiratory disease (3 sources)Cough; Translations: [Cough]87-27-3180XrnlcdalIxfkn male genital disorders (10 sources)Male erectile dysfunction, unspecified; Translations: [Erectile dysfunction]Onset: 68-10-2553UpgvnmwUygap male genital disorders (6 sources)Kltuiuyst23-97-0957EolhvljTywfh nervous system disorders (1 source)Other chronic pain; Translations: [OTHER CHRONIC PAIN]Onset: 58-12-0944XryfjnsUkmbh non-traumatic joint disorders (3 sources)Pain in right hip joint; Translations: [Pain in right hip]Episodic Other non-traumatic joint disorders (3 sources)Arthralgia of the lower leg; Translations: [Pain in right knee] EpisodicOther non-traumatic joint disorders (2 sources)Hip pain; Translations: [Pain in right hip]85-84-4392RvkwcijbXgbpg nutritional; endocrine; and metabolic disorders (7 sources)Obesity; Translations: [Obesity, unspecified]ChronicOther nutritional; endocrine; and metabolic disorders (6 sources)Body mass index 40+ - severely obese; Translations: [Body mass index (BMI) 40.0-44.9, adult]Onset: 57-80-1701QcanwtpAojqxyfko; thrombophlebitis and thromboembolism (1 source)Chronic embolism and thrombosis of right femoral vein; Translations: [CHRON EMBO THROMB RT FEMORAL VEIN]Onset: 12-99-9461YiqdontBrzcbddhv heart disease (9 sources)Pulmonary hypertension; Translations: [Pulmonary hypertension, unspecified]ChronicPulmonary heart disease (14 sources)Pulmonary embolism; Translations: [Other pulmonary embolism without acute cor pulmonale]Onset: 80-48-5727JwuxksijEsdblmwi codes; unclassified (13 sources)Sleep apnea; Translations: [Sleep apnea, unspecified]Onset: 698777-90-1301QdyfjvzRincmnkp codes; unclassified (20 sources)Obstructive sleep apnea syndrome; Translations: [Obstructive sleep apnea (adult) (pediatric)]ChronicResidual codes; unclassified (1 source)Obstructive sleep apnea (adult) (pediatric)ChronicResidual codes; unclassified (1 source)Family history of malignant neoplasm of digestive organ; Translations: [Family history of malignantneoplasm of digestive organs]Onset: 07-29-2022 EpisodicSpondylosis; intervertebral disc disorders; other back problems (15 sources)Spondylosis without myelopathy or radiculopathy, cervical region; Translations: [Sacroiliitis, not elsewhere classified]Onset: 20-45-5886Pkwlvrf Spondylosis; intervertebral disc disorders; other back problems (16 sources)Radiculopathy, lumbar region; Translations: [Spinal stenosis, lumbar region without neurogenic claudication]Onset: 35-36-732370474025-31-3191Dtweaeow Unclassified (6 sources)Asymptomatic microscopic netuoghmz91-64-9438Ggdtiboiggnq (6 sources)Patient encounter weoeva76-09-0986Mpnclzetawnn (5 sources)History of malignant neoplasm of colon and/or bmahhw79-96-1784 Unclassified (4 sources)LOW BACK PAIN, UNSPECIFIED; Translations: [LOW BACK PAIN, UNSPECIFIED]Onset: 45-97-6155Tvpazauhaugt (1 source)Cough, unspecified; Translations: [Cough, unspecified]Onset: 20-58-7069Cbtaqcphztwa (2 sources)M16.0 - Bilateral primary osteoarthritis of hip,M17.0 - Bilateral primary osteoarthritis of knee,M54.50 - Low back pain, unspecified Past or Other Problems Problem ClassificationProblemDateDocumented DateEpisodic/ChronicCancer of rectum and anus (8 sources)History of malignant neoplasm of rectum; Translations: [Personal history of other malignant neoplasm of rectum, rectosigmoid junction, and anus] Onset: 75-06-9964CeyhhbnoAsnsfjkblm and other anemia (3 sources)Pernicious anemia; Translations: [Vitamin B12 deficiency anemia due to intrinsic factor deficiency]Onset: 80-86-7168UeiosxjhPvednogeosqnf symptoms and ill-defined conditions (20 sources)Blood in urine; Translations: [Jonathan hematuria]Onset: 05-27-2020 Resolved: 223950-58-5728EtyiqraaQbtlvvnpfnp of prostate (20 sources)Benign prostatic hypertrophy with outflow obstruction; Translations: [Benign prostatic hyperplasia with lower urinary tract symptoms]Onset: 09-15-2017 Resolved: 72-03-2079CwhdostLnjgdouxlwok; infection of eye (except that caused by tuberculosis or sexually transmitteddisease) (3 sources)External hordeolum; Translations: [Hordeolum externum unspecified eye, unspecified eyelid]Onset: 77-54-9941LcrscbxzHktvinzbreav conditions of male genital organs (3 sources)Acute prostatitis; Translations: [Acute prostatitis]Onset: 05-30-2018 EpisodicOther gastrointestinal disorders (3 sources)Diarrhea; Translations: [Diarrhea, unspecified]Onset: 03-03-2016 EpisodicOther lower respiratory disease (3 sources)Dyspnea; Translations: [Dyspnea, unspecified]Onset: 04-18-2016 EpisodicOther nervous system disorders (3 sources)Altered sensation of skin; Translations: [Disturbance of skin sensation]Onset: 69-75-6657JfhegzjyGqyei non-traumatic joint disorders (3 sources)Arthralgia of the pelvic region and thigh; Translations: [Pain in joint, pelvic region and thigh]Onset: 68-81-4502PgnseeceJvgmf screening for suspected conditions (not mental disorders or infectious disease) (20 sources)Raised prostate specific antigen; Translations: [Elevated prostate specific antigen [PSA]]Onset: 95-92-4605FnykdvzqEikay upper respiratory infections (3 sources)Acute sinusitis; Translations: [Acute sinusitis, unspecified]Onset: 11-28-0773BhvvwwxtSnlt-; endo-; and myocarditis; cardiomyopathy (except that caused by tuberculosis or sexually transmitted disease) (3 sources)Disorder of pericardium; Translations: [Pericardial effusion (noninflammatory)]Onset: 68-20-2852IwsybpnkJzehjuvrb; thrombophlebitis and thromboembolism (9 sources)Deep venous thrombosis of lower extremity; Translations: [Acute embolism and thrombosis of unspecified deep veins of right lower extremity] Onset: 579521-96-4733EezbrpwlRdxfqcqx codes; unclassified (18 sources)Family history of cancer of colon; Translations: [Family hx of colon cancer]Onset: 708216-59-3616PzsqwcioZmqgzipszhag (1 source)LOW BACK PAIN, UNSPECIFIED; Translations: [LOW BACK PAIN, UNSPECIFIED] Onset: 09-67-9738Rdolwdfzlrhy (3 sources)Vaccine product containing only acellular Bordetella pertussis and Clostridium tetani and Corynebacterium diphtheriae antigens (medicinal product); Translations: [Zgtgywyxqz-kkpxabc-wrvkadvht, combined [DTP] [DtaP]]Onset: 94-26-6491Vzgrr infection (1 source)COVID-19 Results Test NameValueInterpretationReference RangeFacilityXR Hip - right 3 Viewson 93-96-8410Todpecg Result: Imaging Result: AP and lateral of right hip showed femoral head to be well centered in the acetabulum without evidence of fracture or dislocation. There was some spurring at the inferior medial, and superior lateral aspect of the femoral acetabular junction. There was global decrease in joint space height. There was no acute bony process including but not limited to, fracture and/or dislocation. Impression moderate degenerative joint disease, right hip [facility] HealthcareRadiology Study observation (narrative)[facility] HealthcareINR in Platelet poor plasma by Coagulation assayOrdered By: Blessing Granda on 11-05-9578NQK Coag (PPP) [Relative time]2.57 {INR}[facility] CenterComment on above:DESIRED INR:2.0-3.0 CONDITIONS NOT LISTED BELOW2.5-3.5 FOR PROSTHETIC HEART VALVE REPLACEMENT2.5-3.5 RECURRENT THROMBOSISProthrombin time (PT)Ordered By: Blessing Granda on 61-65-2309XZ Coag (PPP) [Time]24.8 sHigh9.0-11.6FSelect Medical Specialty Hospital - TrumbullINR in Platelet poor plasma by Coagulation assayOrdered By: Blessing Granda on 72-81-1248LVF Coag (PPP) [Relative time]2.50 {INR}[facility] CenterComment on above:DESIRED INR:2.0-3.0 CONDITIONS NOT LISTED BELOW2.5-3.5 FOR PROSTHETIC HEART VALVE REPLACEMENT2.5-3.5 RECURRENT THROMBOSISProthrombin time (PT)Ordered By: Blessing Granda on 59-06-3488XZ Coag (PPP) [Time]24.2 s High9.0-11.6FSelect Medical Specialty Hospital - TrumbullINR in Platelet poor plasma by Coagulation assayon 18-10-2819IQL Coag (PPP) [Relative time]2.24 {INR}[facility] CenterComment on above:DESIRED INR:2.0-3.0 CONDITIONS NOT LISTED BELOW2.5-3.5 FOR PROSTHETIC HEART VALVE REPLACEMENT2.5-3.5 RECURRENT THROMBOSISProthrombin time (PT)on 57-00-9334DH Coag (PPP) [Time]21.9 sHigh 9.0-11.6FSelect Medical Specialty Hospital - TrumbullX-ray reportOrdered By: Lupis Bryan on 64-45-5264Gjyei reportKINDRED [facility] [place] [address] XRay Report Signed Patient: Evangelist Ybarra MR#: [id number] : 1955 Acct:[id number] Age/Sex: 68 / M ADM Date: 4 Loc: [facility] Room: Type: [facility] Attending Dr: Mariela Mosley APRN Copies [...] Bryan MD 05/26/24 102 Signed By: 05/26/24 [facility]3 [facility] Work Phone: xr chest 2V*on 13-89-6097PS chest 2V*[facility] Main [place] [address] [place] [address] XRay Report Signed Patient: Evangelist Ybarra MR#: [id number] : 1955 Acct:[id number] Age/Sex: 68 / M ADM Date: 05/26/24 Loc: XDUCLY Room: Type: [facility] Attending Dr: Mariela Mosley APRN Copies [...] Lupis Bryan M.D.05/26/2024 10:23 AM Dictation Location: [facility] Transcribed By: LIV 05/26/24 1023 Dictated By: Lupis Bryan MD 05/26/24 1022 Signed By: 05/26/[address] [place] [address] Physician GroupInfluenza virus A and B and SARS-CoV-2 (COVID-19) RNA panel - Respiratory system specon 60-72-3998Jnmyljwtq virus A and B RNA and SARS-CoV-2 (COVID-19) N gene panel ANNIE+probe (Resp) Influenza virus A and B and SARS-CoV-2 (COVID-19) RNA panel - Respiratory system specTrumbull Regional Medical CenterLaboratory - Microbiology and Antimicrobial susceptibilityon 44-74-8082ANDZ-CoV-2 (COVID-19) RNA ANNIE+probe Ql (Unsp spec)NegativeTrumbull Regional Medical CenterNo Panel Informationon 43-78-5357ZIE Influenza B (ANNIE)NegativeTrumbull Regional Medical CenterINR in Platelet poor plasma by Coagulation assayon 99-61-1484XTL Coag (PPP) [Relative time]2.42 {INR}[facility] CenterComment on above:DESIRED INR:2.0-3.0 CONDITIONS NOT LISTED BELOW2.5-3.5 FOR PROSTHETIC HEART VALVE REPLACEMENT2.5-3.5 RECURRENT THROMBOSISINR Coag (PPP) [Relative time]INR in Platelet poor plasma by Coagulation assayTrumbull Regional Medical Center Comment on above:DESIRED INR:2.0-3.0 CONDITIONS NOT LISTED BELOW2.5-3.5 FOR PROSTHETIC HEART VALVE REPLACEMENT2.5-3.5 RECURRENT THROMBOSISProthrombin time (PT)on 17-08-1487PK Coag (PPP) [Time]23.5 sHigh9.0-11.6FSelect Medical Specialty Hospital - TrumbullPT Coag (PPP) [Time]Prothrombin time (PT)High9.0-11.6FSelect Medical Specialty Hospital - TrumbullProgress Noteson 37-99-7448Pjppqgodatbhn Authentication Interface Message TextEP video visit to [...] his last visit, he had lexiscan at [facility] on 09/2016 that showe no reversible [...] in 1 year Prior to your visit, [email or web address] shared information with you about the risks [...] 180 Tablet 3 Sodium Sulfate-Mag Sulfate-KCl (Sutab) 7585-528-531 MG TABS Take by mouth. AMLODIPINE BESYLATE [...] declined Stress: No Stress Concern Present (03/27/2023) [employer] [place] [employer] - Occupational Stress Questionnaire Feeling of Stress : Not at all Social Connections: Moderately Integrated (03/27/2023) Social Connection and Isolation Panel [NHANES] Frequency of Communicatio (more content not included)...NormalThe [facility] Hospital SystemAmbulatory Visit Summaryon 41-06-5772Himxvgrzyo Visit SummaryAmbulatory Visit Summary EVANGELIST YBARRA :1955 Visit Date:01/23/2024 Ambulatory Visit Instructions Your Diagnosis Elevated PSA BPH with urinary obstruction Erectile dysfunction Asymptomatic microscopic hematuria Your Care Team Attending Physician - TIANA GARCIA, CATHIE Ruano Primary Care Physician - DONALD LIZARRAGA MD [...] Only if needed Where: [address] [place] [address] [phone] Medications What How Much When Instructions Unchanged [...] ? Obesity. ? Ne (more content not included)...[facility] TroyProvider Letteron 31-05-3989Vjbhygvs LetterProvider Letter DONALD LIZARRAGA, [facility] [place] [address] Re: EVANGELIST YBARRA Date of : [address] ELHAM JACKSON, EVANGELIST SWANSON was evaluated at [facility] 01/30/2024 10:00:00 As this patient has been stable, they will be released back to your care. We request that you continue to check PSA annually for prostate cancer screening Should the patient develop new symptoms, worsening condition, or abnormal imaging/labs in the future, do not hesitate to refer them back. Thanks! Provider Signature: Cathie Hernandez PA-C Physician Demo Coordinator [facility] [address] [place] [address] NoUniversity Hospitals Elyria Medical CenterUrology Office/Clinic Note on 72-45-1382Epgvqfd Office/Clinic NoteUrology Office/Clinic Note Chief Complaint 1 year follow up with PSA HPI Staff 68 year old patient presents today for a 1 year follow up with PSA. No recent PSA on [facility], [facility], [facility], or [facility] [place]. DX: BPH, ED & Elevated PSA TURP [...] prn at prior OV pending clearance from tuyere fitter but pt never filled script. Not a [...] GARCIA, CATHIE Ruano, URL Only if needed [address] [place] [address] [phone] Additional Instructions: Patient Education Erectile Dysfunction Documentation [...] History Alcohol - De (more content not included)...[facility] Comment on above:Result Comment: Electronically Signed By: CATHIE HERNANDEZ PA-C\.br\Date and Time Signed: 01/22/2414:33 EDT\.br\Electronically Co-Signed By: Krystyna Caceres\.br\Date and Time Co-Signed: 01/23/24 14:31 EDTURINALYSISOrdered By: Sweetie Ma on 46-74-5753Eecklvek LM Ql (Urine sed)Trace /HPFNormal Trace/HPFBONE AND JO[facility] [place] UA Auto SSBilirubin Ql (U)Negative (01/24/23 10:19 AM)NormalNegativeBONE AND JOINT [facility] [place] UA Auto SSClarity (U)Clear (01/24/23 10:19 AM)NormalClearFGREAT PLAINS [facility] [place] U[facility] Auto SSColor (U)Yellow (01/24/23 10:19 AM)NormalYellowBONE AND JOINT HOSPITAL – [place] UA Auto SSEpithelial cells.squamous LM.HPF (Urine sed) [#/Area]0-2 /HPFNormal0-2/HPFBONE AND JOINT HOSPITAL [facility] [place] UA Auto SSGlucose Test strip (U) [Mass/Vol]Negative (01/24/23 10:19 AM)NormalNegativeBONE AND JOINT [facility]OSPITAL [facility] [place] UA Auto SSHemoglobin Ql (U)Negative (01/24/23 10:19 AM)NormalNegativeBONE AND JOINT [facility] [place] UA Auto SSKetones (U) [Mass/Vol]Negative (01/24/23 10:19 AM)NormalNegativeBONE AND JOINT [facility]OSPITAL [facility] [place] UA Auto SSLithium.plasma/[place].RBC (Bld) [Mass ratio]0-3 /HPFNormal0-3/HPFB[facility] AND JOINT [facility] [place] UA Auto SSNitrite Ql (U)Negative (01/24/23 10:19 AM)NormalNegativeBONE AND JOINT [facility] [place] UA Auto SSpH (U)5.0 *NA* (01/24/23 10:19 AM)Invalid Interpretation Code5.0 - 9.0[facility] [place] Auto SSProtein (U) [Mass/Vol]Negative (01/24/23 10:19 AM)NormalNegativeBONE AND JOINT [facility] [place] UA Auto SSSpecific gravity (U) [Rel density]>=1.030 *NA* (01/24/23 10:19 AM)Invalid Interpretation Code1.005 - 1.030[facility] [place] UA Auto SSUA Spec DescRandom Urine (01/24/23 10:19 AM)NormalBONE AND JOINT [facility]OSPITAL [facility] [place] UA Auto SSUrobilinogen Qn (U)0.0265740 {Anne'U}/dLNormal0.0 - 1.0 EU/dLBONE AND JOINT HOSPITAL [facility] [place] UA Auto SSWBC Auto Ql (U)Negative (01/24/23 10:19 AM)NormalNegativeBONE AND JOINT [facility] [place] UA Auto SSWBC LM.HPF (Urine sed) [#/Area]0- 5 /HPFNormal0-5/HPFBONE AND JOINT HOSPITAL [facility] [place] UA Auto SSXR CSPINE MIN 4 VIEWSon 69-38-8969QM CSPINE MIN 4 VIEWSEXAMINATION: XR CSPINE MIN [...] Electronically authenticated by: UNA SEARS Date: 2022-11-10 09:46NoMer[facility] AUTO DIFFon 93-15-6638RFSS #0.0 103/ulNormal0.0-0.1[facility] Mer[facility] HospitalComment on above:Performed By: #### CBC #### [facility] [address] [place] [address] Dr. Jason PearsonBasophils/100 WBC (Bld)0.7 %Normal0.2-2.0[facility] Comment on above:Performed By: #### CBC #### [facility] [address] [address] [address] Jason Lee #0.2 103/ulNormal0.0-0.7The [facility] Medical CenterComment on above: Performed By: #### CBC #### [facility] [address] [address] [address] Jason Taylorosinophils/100 WBC (Bld)3.7 %Normal0.9-7.0[facility] Comment on above:Performed By: #### CBC #### [facility] [address] [address] [address] Jason Taylorrythrocyte distribution width (RBC) [Ratio]14.0 %Libffz07.0-15.0 [facility] HospitalComment on above:Performed By: #### CBC #### [facility] [address] [place] [address] Dr. Jason PearsonHematocrit (Bld) [Volume fraction]41.0 %Critically low42.0-54.0 [facility] HospitalComment on above:Performed By: #### CBC #### [facility] [address] [place] [address] Dr. Jason PearsonHemoglobin (Bld) [Mass/Vol]13.8 g/dLCritically low14.0-18.0The [facility] CenterComment on above:Performed By: #### CBC #### [facility] [address] [place] [address] Dr. Jason Little #0.01 10e3/ulNormal0.00-0.03The [facility] CenterComment on above:Performed By: #### CBC #### [facility] [address] [place] [address] Dr. Jason Little %0.2 %Normal0.0-0.5The [facility] CenterComment on above: Performed By: #### CBC #### [facility] [address] [place] [address] Dr. Jasno Vazquez #1.3 103/ulNormal1.2-3.8The [facility] CenterComment on above:Performed By: #### CBC #### [facility] [address] [place] [address] Dr. Jason Laihocytes/100 WBC (Bld)22.3 %Qxwjyw77.5-60.0The [facility] CenterComment on above:Performed By: #### CBC #### [facility] [address] [place] [address] Dr. Jason MalikUAL DIFF REQNONormalThe [facility] CenterComment on above: Performed By: #### CBC #### [facility] [address] [place] [address] Dr. Jason Palma (RBC) [Entitic mass]32.6 ylIsscai20.9-34.0The [facility] CenterComment on above:Performed By: #### CBC #### [facility] [address] [place] [address] Dr. Jason Palma (RBC) [Mass/Vol]33.7 g/fISpkrsu73.9-35.2The [facility] CenterComment on above:Performed By: #### CBC #### [facility] [address] [place] [address] Dr. Jason Palma (RBC) [Entitic vol]96.9 fLCritically high80.0-94.0The [facility] CenterComment on above:Performed By: #### CBC #### [facility] [address] [place] [address] Dr. Jason Cook #0.6 103/ulNormal0.3-0.8The [facility] CenterComment on above:Performed By: #### CBC #### [facility] [address] [place] [address] Dr. Jason Coronaocytes/100 WBC (Bld)10.5 %Normal1.7-12.0The [facility] Comment on above:Performed By: #### CBC #### [facility] [address] [place] [address] Dr. Jason Pearson #3.7 103/ulNormal1.4-6.5The [facility] CenterComment on above:Performed By: #### CBC #### [facility] [address] [place] [address] Dr. Jason Henriquezutrophils/100 WBC (Bld)62.6 %Upiobg39.0-75.0The [facility] CenterComment on above:Performed By: #### CBC #### [facility] [address] [place] [address] Dr. Jason Bonds mean volume (Bld) [Entitic vol]9.9 fLNormal9.5-13.5The [facility] CenterComment on above:Performed By: #### CBC #### [facility] [address] [place] [address] Dr. Jason MontañoT181 103/ytImmtsb006-450Oek [facility] CenterComment on above: Performed By: #### CBC #### [facility] [address] [place] [address] Dr. Jason PearsonRBC4.23 106/ulCritically low4.70-6.10The [facility] CenterComment on above:Performed By: #### CBC #### [facility] [address] [place] [address] Dr. Yilan ChangWBC5.9 103/ulNormal4.0-11.0The [facility] on above: Performed By: #### CBC #### [facility] [address], [place] [address] Dr. Jason GarciasID PROFILEon [id number]-HDL RATIO NORMSEE Newark HospitalComment on above:Result Comment: 3.3 - 4.4 LOW RISK 4.4 - 7.1 AVERAGE RISK 7.1 - 11.0 MODERATE RISK >11.0 HIGH RISKPerformed By: #### CMP, LIPID ####[facility] [address] [place], [place] [address]Dr. Yilan ChangCholesterol [Mass/Vol]163 mg/dLNormal<=200The [facility] on above:Performed By: #### CMP, LIPID ####[facility] [address] [place], [place] [address]Rr. Deboralan ChangCholesterol in HDL [Mass/Vol]49 mg/vQEzuqvj74-02Ohs [facility] CenterComment on above: Performed By: #### CMP, LIPID ####[facility] [address] [place], [place] [address]Ng. Yilan ChangCholesterol in LDL [Mass/Vol]74.6 mg/dL NormalK[facility]tering [facility] on above:Performed By: #### CMP, LIPID ####[facility] [address] [place], [place] [address]Bh. Jason ChangCholesterol.total/Cholesterol in HDL [Mass ratio]3.3 {ratio}NormalThe [facility] CenterCom[facility] on above:Performed By: #### CMP, LIPID ####[facility] [address] [place], [place] [address]Py. Deboralan ChangHDL NORMAL> or = 60 mg/dl - LOW CARDIOVASCULAR RISK <40 mg/dl - HIGH CARDIOVASCULAR RISKMiami Valley Hospitalment on above:Performed By: #### CMP, LIPID ####[facility] [address] [place], [place] [address]Qs. Deboralan ChangLDL CALC NORMALSEE BELOWJ.W. Ruby Memorial HospitalComment on above: Result Comment: <100 mg/dl OPTIMAL 100 - 129 mg/dl NEAR OR ABOVE OPTIMAL 130 - 159 mg/dl BORDERLINE HIGH 160 - 189 mg/dl HIGH >190 mg/dl VERY HIGHPerformed By: #### CMP, LIPID ####[facility] [address] [place] [id number]. Jason PearsonTriglyceride [Mass/Vol]197 mg/dLCritically high<=150The [facility] CenterComment on above:Performed By: #### CMP, LIPID ####[facility] [address] [place] [address]Dr. Jason PearsonVLDL CALC39.4 mg/dLJ.W. Ruby Memorial HospitalComment on above:Performed By: #### CMP, LIPID ####[facility] [address] [place] [address]Dr. Jason SungROALBUMIN, RAND URon 78-28-2031bTMO8.3 mg/LNormal<=30.0 The [facility] CenterComment on above:Performed By: #### MALBR ####[facility] [address] [place] [address]Dr. Jason PearsonPROF 14(COMP METB)on 23-07-6818Nvekkju [Mass/Vol]3.7 g/dLNormal3.4-5.0The [facility] CenterComment on above:Performed By: #### CMP, LIPID #### [facility] [address] [place] [address] Dr. Jason PearsonAlbumin/Globulin [Mass ratio]1.0 {ratio}NormalThe [facility] CenterComment on above:Performed By: #### CMP, LIPID #### [facility] [address] [place] [address] [address] Jason Tilley [Catalytic activity/Vol]56 U/RUvnkpo87-773Fsv [facility] CenterComment on above:Performed By: #### CMP, LIPID #### [facility] [address] [place] [address] [address] Jason Maria [Catalytic activity/Vol]43 U/KDkqwex00-31Der [facility] CenterComment on above:Performed By: #### CMP, LIPID #### [facility] [address] [place] [address] [address] Jason Martinson gap [Moles/Vol]11.2 mmol/LNormalThe [facility] Comment on above:Performed By: #### CMP, LIPID #### [facility] [address] [place] [address] [address] Jason PearsonAST [Catalytic activity/Vol]24 U/LQugspr79-91Fjz [facility] CenterComment on above:Performed By: #### CMP, LIPID #### [facility] [address] [place] [address] [address] Jason PearsonBilirubin [Mass/Vol]0.9 mg/dLNormal0.2-1.0[facility] Comment on above:Performed By: #### CMP, LIPID #### [facility] [address] [place] [address] [address] Jason PearsonCalcium [Mass/Vol]9.6 mg/dLNormal8.5-10.1[facility] Comment on above:Performed By: #### CMP, LIPID #### [facility] [address] [place] [address] Dr. Jason PearsonChloride [Moles/Vol]106 mmol/THejmuv34-854KhrOur Lady Of Mercy Hospital Comment on above:Performed By: #### CMP, LIPID #### [facility] [address] [place] [address] [address] Jason PearsonCO2 [Moles/Vol]30.1 mmol/JVohwsr52.0-32.0The [facility] Comment on above:Performed By: #### CMP, LIPID #### [facility] [address] [place] [address] Dr. Jason PearsonCreatinine [Mass/Vol]1.00 mg/dLNormal0.70-1.30The [facility] CenterComment on above:Performed By: #### CMP, LIPID #### [facility] [address] [place] [address] [address] Jason TaylorGFR-AF ANGUILLAN>60Normal>=60The [facility] CenterComment on above:Performed By: #### CMP, LIPID #### [facility] [address] [place] [address] [address] Jason TaylorGFR-NON AF ANGUILLAN>60Normal>=60The [facility] CenterComment on above:Performed By: #### CMP, LIPID #### [facility] [address] [place] [address] [address] Jason PearsonGlobulin (S) [Mass/Vol]3.6 g/dLNormalThe [facility] CenterComment on above:Performed By: #### CMP, LIPID #### [facility] [address] [place] [address] [address] Jason PearsonGlucose [Mass/Vol]110 mg/dLCritically lbke09-071Kih [facility] CenterComment on above:Performed By: #### CMP, LIPID #### [facility] [address] [place] [address] Dr. Jason PearsonPotassium [Moles/Vol]4.3 mmol/LNormal3.5-5.1The [facility] Comment on above:Performed By: #### CMP, LIPID #### [facility] [address] [place] [address] Dr. Jason PearsonProtein [Mass/Vol]7.3 g/dLNormal6.4-8.2The [facility] Comment on above:Performed By: #### CMP, LIPID #### [facility] [address] [place] [address] Dr. Jason PearsonSodium [Moles/Vol]143 mmol/ZLtoqrg930-155Tnj [facility] Comment on above:Performed By: #### CMP, LIPID #### [facility] [address] [place] [address] Dr. Jason PearsonUrea nitrogen [Mass/Vol]15.0 mg/dLNormal7.0-18.0The [facility] CenterComment on above:Performed By: #### CMP, LIPID #### [facility] [address] [place] [address] Dr. Yilan ChangUrea nitrogen/Creatinine [Mass ratio]15.0 mg/mgNoSelect Medical Cleveland Clinic Rehabilitation Hospital, BeachwoodComment on above:Performed By: #### CMP, LIPID #### [facility] [address] [place] [address] [address] Jason Barnes [id number] Coag (PPP) [Relative time]1.11 {INR} NormalOur Lady Of Mercy HospitalComment on above:Performed By: #### PT ####[facility] [address] [place] [address]Dr. Jason Bourne GUIDELINESSEE Newark HospitalComment on above:Result Comment: DESIRED INR: 2.0 - 3.0 CONDITIONS NOT LISTED BELOW 2.5 - 3.5 FOR PROSTHETIC HEART VALVE REPLACEMENT 2.5 - 3.5 RECURRENT THROMBOSISPerformed By: #### PT ####[facility] [address] [place] [address]Dr. Sierra Obrien Coag (PPP) [Time]11.9 sCritically high9.0-11.6ThKindred Healthcare Comment on above:Performed By: #### PT ####[facility] [address] [place], [place] [address]Dr. Jason Barnes [id number] Coag (PPP) [Relative time]1.32 {INR}NormalOur Lady Of Mercy HospitalComment on above: Performed By: #### PT #### [facility] [address] [place] [address] Dr. Jason Bourne GUIDELINESSEE Newark HospitalComment on above:Result Comment: DESIRED INR: 2.0 - 3.0 CONDITIONS NOT LISTED BELOW 2.5 - 3.5 FOR PROSTHETIC HEART VALVE REPLACEMENT 2.5 - 3.5 RECURRENT THROMBOSIS Performed By: #### PT #### [facility] [address] [place] [address] Dr. Jason Obrien Coag (PPP) [Time]14.0 sCritically high9.0-11.6ThKindred HealthcareComment on above:Performed By: #### PT #### [facility] [address] [place] [address] Dr. Jason PearsonPROTIMEon [id number] Coag (PPP) [Relative time]1.08 {INR} NormalThe [facility] CenterComment on above:Performed By: #### PT #### [facility] [address] [place] [address] Dr. Jason PearsonINR GUIDELINESSEE BELOWJ.W. Ruby Memorial HospitalComment on above:Result Comment: DESIRED INR: 2.0 - 3.0 CONDITIONS NOT LISTED BELOW 2.5 - 3.5 FOR PROSTHETIC HEART VALVE REPLACEMENT 2.5 - 3.5 RECURRENT THROMBOSIS Performed By: #### PT #### [facility] [address] [place] [address] Dr. Jason PearsonPT Coag (PPP) [Time]11.6 sNormal9.0-11.6The [facility] Comment on above:Performed By: #### PT #### [facility] [address] [place] [address] Dr. Jason PearsonXR HIP RT INJon [id number] HIP RT INJEXAMINATION: XR HIP RT INJ [...] Electronically authenticated by: RUPERT MOON Date: 2022-02-07 11:09J[facility] HospitalInitial Visit (Gastroenterology)on 03-10-2823Yqjjvkt Visit (Gastroenterology)Chief ComplaintReferral from Dr. Bunch, for [...] from the patient and documented on the [facility] health history questionnaire. Pertinent positives and negativesare [...] Oral Tablet; TAKE 1 TABLET D AILY;Therapy: (Recorded:85Ngu5628) to Recorded Dispense: 0 Days ; #: Sufficient Tablet; Refill: 0; KP = N; Record; Last Updated By: Toyin Angeles; 03/28/2018 9:14:26 AM Flecainide Acetate 100 MG Oral Tablet; TAKE 1 TABLET EVERY 12 HOURS DAILY;Therapy: (Recorded:64Ocu9912) to Recorded Dispense: 0 Days ; #: Sufficient Tablet; Refill: 0; KP = N; Record; Last Updated By: Toyin Angeles; 03/28/2018 9:14:26 AM HydroCHLOROthiazide 25 MG Oral Tablet; TAKE 1 TABLET DAILY;Therapy: (Recorded:44Vhv0860) to Recorded Dispense: 0 Days ; #: Sufficient Tablet; Refill: 0; KP = N; Record; Last Updated By: Toyin Angeles; 03/28/2018 9:14:26 AM Imodium A-D CAPS;Therapy: (Recorded:44Rhm1328) to Recorded Dispense: 0 Days ; #: Sufficient CAPS; Refill: 0; KP = N; Record; Last Updated By: Toyin Angeles; 03/28/2018 9:14:26 AM Klor-Con M20 20 MEQ Oral Tablet Extended Release; TAKE 2 TABLETS TWICE DAILY;Therapy: (Recorded:85Qeg8597) to Recorded Dispense: 0 Days ; #: Sufficient Tablet Extended Release; Refill: 0; KP = N; Record; Last Updated By: Toyin Angeles; 03/28/2018 9:14:26 AM Lisinopril 40 MG Oral Tablet; TAKE 1 TABLET DAILY;Therapy: (Recorded:81Vfy0349) to Recorded Dispense: 0 Days ; #: Sufficient Tablet; Refill: 0; KP = N; Record; Last Updated By: Toyin Angeles; 03/28/2018 9:14:26 AM Loratadine 10 MG Oral Tablet; TAKE 1 TABLET DAILY;Therapy: (Recorded:37Ygb1973) to Recorded Dispense: 0 Days ; #: Sufficient Tablet; Refill: 0; KP = N; Record; Last Updated By: Toyin Angeles; 03/28/2018 9:14:26 AM Metoprolol Tartrate 100 MG Oral Tablet; TAKE 1 TABLET DAILY;Therapy: (Recorded:12Nws2781) to Recorded Dispense: 0 Days ; #: Sufficient Tablet; Refill: 0; KP = N; Record; Last Updated By: Toyin Angeles; 03/28/2018 9:14:26 AM Multivitamins TABS;Therapy: (Recorded:99Ccb7543)to Recorded Dispense: 0 Days ; #: Sufficient TABS; Refill: 0; KP = N; Record; Last Updated By: Toyin Rainey; 03/28/2018 9:14:26 AM Tamsulosin HCl - 0.4 MG Oral Capsule;Therapy: (Recorded:42Glm4255) to Recorded Dispense: 0 Days ; #: Sufficient Capsule; Refill: 0; KP = N; Record; Last Updated By: Toyin Angeles; 03/28/2018 9:14:26 AM Vitamin B-12 ER 1500 MCG Oral Tablet Extended Release;Therapy: (Recorded:44Olq9027) to Recorded Dispense: 0 Days ; #: Sufficient TBCR; Refill: 0; KP = N; Record; Last Updated By: Toyin Angeles; 03/28/2018 9:14:26 AM Vitamin D3 2000 UNIT Oral Tablet;Therapy: (Recorded:24Atx5760) to Recorded Dispense: 0 Days ; #: Sufficient Tablet; Refill: 0; KP = N; Record; Last Updated By: Toyin Angeles; 03/28/2018 9:14:26 AM Warfarin Sodium 5 MG Oral Tablet; TAKE 1 TABLET DAILY;Therapy: (Recorded:38Ukh0803) to Recorded Dispense: 0 Days ; #: Sufficient Tablet;Refill: 0; KP = N; Record; Last Updated By: Toyin Angeles; 03/28/2018 9:14:26 AM Vitals Vital Signs Recorded: 28Mar2018 09:12AMHeart Hxxb43Ygyxugatlki04Nlvfudkf659Noqtuytaa20Dljlaq3 ft 2 rjWzvzjh190 lb 6 ozBMI Vtksgpjaby16.52BSA Calculated2.67 Physical ExamConstitutional General appearance: In no [...] salt-induced diarrhea; KP = N; [facility]ifiedTrans[id number]; Last Updated By: Rafi Rhodes; 03/28/2018 9:44:38 [...] MG Oral Tablet; TAKE 1 TABLET DAILY;Therapy: (Recorded:63Iwy9842) to RecordedCholestyramine Light 4 GM Oral Packet; MIX THE CONTENTS OF 1 POWDER PACKETWITH 2-6 OZ OF NONCARBONATED BEVERAGE AND SWALLOW ONCE DAILY;Therapy: 96Sfb4089 to (Evaluate:88Xuz4999) Requested for: 86Ttw7989; LastRx:76Tpn4923 OrderedFlecainide Acetate 100 MG Oral Tablet; TAKE 1 TABLET EVERY 12 HOURS DAILY;Therapy: (Recorded:74Jls9726) to RecordedHydroCHLOROthiazide 25 MG Oral Tablet; TAKE 1 TABLET DAILY;Therapy: (Recorded:24Jqg0491) to RecordedImodium A-D CAPS (Loperamide HCl);Therapy: (Recorded:45Kzv4263) to RecordedKlor-Con M20 20 MEQ Oral Tablet Extended Release; TAKE 2 TABLETS TWICE DAILY;Therapy: (Recorded:37Mmx5344) to RecordedLisinopril 40 MG Oral Tablet; TAKE 1 TABLET DAILY;Therapy: (Re corded:39Ppi8811) to RecordedLoratadine 10 MG Oral Tablet; TAKE 1 TABLET DAILY;Therapy: (Recorded:53Bjf5541) to RecordedMetoprolol Tartrate 100 MG Oral Tablet; TAKE 1 TABLET DAILY;Therapy: (Recorded:44Ffp6495) to RecordedMultivitamins TABS;Therapy: (Recorded:88Kpg5331) to RecordedTamsulosin HCl - 0.4 MG Oral Capsule;Therapy: (Recorded:29Wdx2294) to RecordedVitamin B-12 ER 1500 MCG Oral Tablet Extended Release;Therapy: (Recorded:63Bed1076) to RecordedVitamin D3 2000 UNIT Oral Tablet;Therapy: (Recorded:11Xvc6617) to RecordedWarfarin Sodium 5 MG Oral Tablet; TAKE 1 TABLET DAILY;Therapy: (Recorded :10Wgt3804) to Recorded Signatures Electronically signed by : Devin Greer DO; Mar 28 2018 9:51AM EST (Author)Formerly [facility], [facility]–1983 Touchworks Vital Signs Date TimeVital SignValuePerforming XbjjszgzyEyagokyr25-04-9256 11:20-0400Body nsbojb709.96 cmDonald Lizarraga MD Work Phone: [phone])[address]10-27-2025 11:20-0400 Body mass index (BMI) [Ratio]38 kg/s9NobaddDonald Lizarraga MD Work Phone: 1(424)[address] [place], [place] 2628210-27-2025 11:20-0400 Body .26 kgDonald Lizarraga MD Work Phone: 1(910)[address] [place], [place] 2628208-25-2025 10:51-0400 Body rnpaoi538.96 cmDonald Lizarraga MD Work Phone: [phone])[address] [place], [place] 2628208-25-2025 10:51-0400 Body mass index (BMI) [Ratio]38.1 kg/m4FcgqmdDonald Lizarraga MD Work Phone: 1(516)[address] [place], [place] 2628208-25-2025 10:51-0400 Body stoyde582.7 kgDonald Lizarraga MD Work Phone: 1(236)[address] [place], [place] 2628208-06-2025 09:22-0400 Body afcxpq536.96 cmDonald Lizarraga MD Work Phone: 1(461)[address] [place], [place] 2628208-06-2025 09:22-0400 Body mass index (BMI) [Ratio]38.1 kg/t5VivrvkDonald Lizarraga MD Work Phone: 1(212)[address] [place], [place] 2628208-06-2025 09:22-0400 Body .71 kgDonald Lizarraga MD Work Phone: [phone])[address] [place], [place] 2628208-06-2025 09:22-0400 Diastolic blood llroxlcd32 mm[Hg]Donald Lizarraga MD Work Phone: 1(006)[address] [place], [place] 2628208-06-2025 09:22-0400 Heart rate61 /Edis Lizarraga MD Work Phone: 1(956)[address] [place], [place] 2628208-06-2025 09:22-0400 Systolic blood fkilelez244 mm[Hg]Donald Lizarraga MD Work Phone: 1(543)[address] [place], [place] 2628211-20-2024 09:52-0500 Body .96 cmDonald Lizarraga MD Work Phone: 1(534)[address] [place], [place] 2628211-20-2024 09:52-0500 Body mass index (BMI) [Ratio]38.4 kg/e7EltsecDonald Lizarraga MD Work Phone: 1(955)[address] [place], [place] 2628211-20-2024 09:52-0500 Body rjxyrydnidx18.5 [degF]Donald Lizarraga MD Work Phone: 1(224)[address] [place], [place] 2628211-20-2024 09:52-0500 Body xuhuod577.62 kgDonald Lizarraga MD Work Phone: 1(714)[address] [place], [place] 2628211-20-2024 09:52-0500 Diastolic blood haaqmrpb08 mm[Hg]Donald Lizarraga MD Work Phone: 1(293)[address] [place], [place] 2628211-20-2024 09:52-0500 Heart rate73 /Edis Lizarraga MD Work Phone: 1(678)[address] [place], [place] 2628211-20-2024 09:52-0500 SaO2% (BldA) [Mass fraction]98 %Donald Lizarraga MD Work Phone: 1([phone])[address] [place], [place] 26[address]211-20-2024 09:52-0500 Systolic blood uxsciinx166 mm[Hg]Donald Lizarraga MD Work Phone: 1(830)[address] [place], [place] 26[address]211-17-2024 09:18-0500 Body ramxjh740.96 cmDonald Lizarraga MD Work Phone: 1(434)[address] [place], [place] 26[address]211-17-2024 09:18-0500 Body mass index (BMI) [Ratio]38.5 kg/u6HiyjoiDonald Lizarraga MD Work Phone: 1(785)[address]11-17-2024 09:18-0500 Body ydnxlsvnwac95.1 [degF]Donald Lizarraga MD Work Phone: 1(397)[address]11-17-2024 09:18-0500 Body ppeufg692.13 kgDonald Lizarraga MD Work Phone: 1(373)[address]11-17-2024 09:18-0500 Diastolic blood bosrrrvm78 mm[Hg]Donald Lizarraga MD Work Phone: 1(094)[address]11-17-2024 09:18-0500 Heart rate73 /Edis Lizarraga MD Work Phone: 1(990)[address] [place], [place] 2628211-17-2024 09:18-0500 Respiratory rate18 /Edis Lizarraga MD Work Phone: 1(291)[address] [place], [place] 26[address]211-17-2024 09:18-0500 SaO2% (BldA) [Mass fraction]96 %Donald Lizarraga MD Work Phone: 1(184)[address]11-17-2024 09:18-0500 Systolic blood hxfogaco721 mm[Hg]Donald Lizarraga MD Work Phone: 1(405)[address]10-30-2024 09:24-0400 Body juofcj330.96 [facility]-30-2024 09:24-0400Body mass index (BMI) [Ratio]38.8 kg/t8LppjzbxenTrumbull Regional Medical Center10-30-2024 09:24-0400Body kvsuusxahic30 [degF][facility]10-30-2024 09:24-0400Body exfxxd598.15 kgTrumbull [facility] Medical Center10-30-2024 09:24-0400Diastolic blood dhxruswc40 mm[Hg][facility] 05-08-2024 09:24-0400Heart rate70 /[facility] 05-08-2024 09:24-0400Respiratory rate18 /[facility] 05-08-2024 09:24-1154UtS0% (BldA) [Mass fraction]98 %[facility]10-30-2024 09:24-0400Systolic blood yjmhyynw932 mm[Hg][facility]07-16-2024 14:11-0400Blood Pressure LocationJENNIFER TIANA [facility]07-16-2024 14:11-0400Body nbzmiszmuqz77.88 [degF]CATHIE HERNANDEZ [facility]07-16-2024 14:11-0400Diastolic blood pxzwqgap31 mm[Hg]CATHIE HERNANDEZ [facility]07-16-2024 14:11-0400Heart rate67 /minJENNIFER TIANA [facility]07-16-2024 14:11-0400Respiratory rate16 /minJENNIFER TIANA [facility]07-16-2024 14:11-0400Systolic blood dcpbabfv121 mm[Hg]CATHIE HERNANDEZ [facility]04-11-2024 10:Body .96 cmTr[facility]ull [facility]04-11-2024 10:040Body mass index (BMI) [Ratio]40.1 kg/h7LisqruosgTrumbull Regional Medical Center04-11-2024 10:040Body .63 kgTrumbull [facility] Center04-11-2024 10:040Diastolic blood pbuwoaja93 mm[Hg] [facility]04-11-2024 10:040Heart rate71 /minTr[facility]ull [facility] Center04-11-2024 10:1069DvA3% (BldA) [Mass fraction]98 % [facility]04-11-2024 10:19-0400Systolic blood bpyhgacw559 mm[Hg][facility]01-04-2024 15:30-0500Body pynqka750.96 cm Donald Lizarraga Other [employer] Other 01-04-2024 15:30-0500Body mass index (BMI) [Ratio] 40.18 kg/m2Xcwbuu El[place] Other noFresh[facility] Other 01-04-2024 15:30-0500Body dtneov472.98 kgDonald Elham Other [employer]Fresh[employer] Other 01-04-2024 15:30-0500Diastolic blood phrjjzqi03 mm[Hg] Donaldtrixie Lizarraga Other [employer] Other 01-04-2024 15:30-0500Systolic blood wierehuv570 mm[Hg] Donaldtrixie Lizarraga Other [employer] Other 07-18-2023 10:00-0400Blood Pressure LocationJENNIFER TIANA [facility]07-18-2023 10:00-0400Diastolic blood sqqvlgya44 mm[Hg]CATHIE TIANA [facility]07-18-2023 10:00-0400Heart rate72 /minJENNIFER TIANA [facility]07-18-2023 10:00-0400Respiratory rate16 /minJENNIFER TIANA [facility]07-18-2023 10:00-0400Systolic blood flrwqrua477 mm[Hg]CATHIE TIANA [facility]03-30-2023 10:17-0400Diastolic blood akcwshmg88 mm[Hg]Daigle SALAM [facility]03-30-2023 10:17-0400Heart rate69 /minMaher SALAM [facility]03-30-2023 10:17-0400 Respiratory rate16 /minMaher SALAM [facility]03-30-2023 10:17-3808TeC2% (BldA) [Mass fraction]99 %Daigle SALAM [address] [place], [place] [address]3603-30-2023 10:17-0400 Systolic blood merkhmcm680 mm[Hg]Daigle SALAM [facility]03-30-2023 10:05-0400 Diastolic blood rcumoecy39 mm[Hg]Daigle SALAM [facility]03-30-2023 10:05-0400Heart rate67 /minMaher SALAM [facility]03-30-2023 10:05-0400 Respiratory rate18 /minMaher SALAM [facility]03-30-2023 10:05-6768YaJ5% (BldA) [Mass fraction]99 %Daigle SALAM [facility]03-30-2023 10:05-0400 Systolic blood sgsdznec379 mm[Hg]Daigle SALAM [facility]03-30-2023 10:00-0400 Diastolic blood stsvxtce08 mm[Hg]Daigle SALAM [facility]03-30-2023 10:00-0400Heart rate66 /minMaher SALAM [facility]03-30-2023 10:00-0400 Systolic blood pijdofqu744 mm[Hg]Daigle SALAM [facility]03-30-2023 09:55-0400 Respiratory rate16 /minJaviher SALAM [facility]03-30-2023 09:52-0400Body geihceoejxc45.7 [degF]Oxana IBARRA [facility]03-30-2023 09:40-0400 Respiratory rate1 /Vitaher SALAM [address] [place], [place] 1785503-30-2023 08:21-0400Blood Pressure LocationOxana IBARRA [address] [place], [place] 5233603-30-2023 08:21-0400Body fczzganpxfl58.88 [degF]Oxana IBARRA [facility]01-20-2023 14:15-0500 Diastolic blood ubfipnqg35 mm[Hg]Elicia Mcmillan [phone]-QavdyK[facility]tering [facility]01-20-2023 14:15-0500Mean blood lnyecmkh909 mm[Hg]Elicia Hipolito [phone]-LjkumKettering Health [facility] Campus01-20-2023 14:15-0500Systolic blood yetxfvgb297 mm[Hg]Elicia Garciametz [phone]-LkpjhKettering Health [facility] Campus01-20-2023 14:11-0500Blood Pressure LocationElicia Mcmillan [phone]-Jdtjl[address] [place], [place] [address]476901-20-2023 14:11-0500Body svhicuepuqr50.88 [degF]Eliciagurwinder Zamarripaz [phone]-Psdny[address] [place], [place] 0476901-20-2023 14:11-0500Diastolic blood alvqbwdd66 mm[Hg]Elicia Mcmillan [phone]-NtdtaKettering Health [facility] Campus01-20-2023 14:11-0500Heart rate77 /minBeth Hipolito [phone]-FgttxKettering Health [facility] Campus01-20-2023 14:11-0500Systolic blood mm[Hg]Elicia Mcmillan [phone]-SdeocKettering Health [facility] Campus01-17-2023 10:45-0500Body xklycp869.96 cmDonald Lizarraga Other [facility] Other 01-17-2023 10:45-0500Body mass index (BMI) [Ratio] 41.47 kg/h5RvrqlgDonald Lizarraga Other noRaffstar Other 01-17-2023 10:45-0500Body .51 kgDonald Lizarraga Other noFreshplum Other 01-17-2023 10:45-0500Diastolic blood wmalgqpf87 mm[Hg] Donald Lizarraga Other noRaffstar Other 01-17-2023 10:45-2421DrW9% (BldA) [Mass fraction]97 % Donald Lizarraga Other [employer] Other 01-17-2023 10:45-0500Systolic blood mm[Hg] Donald Lizarraga Other [employer] Other 04-20-2022 12:02-0400Blood Pressure LocationJENNIFER TIANA [facility] [place] 04-20-2022 12:02-0400Diastolic blood mm[Hg] [facility] 04-20-2022 12:02-399Heart rate77 /minCATHIE HERNANDEZ [facility] 04-20-2022 12:-399Systolic blood zesxxvdo327 mm[Hg] CATHIE HERNANDEZ [facility] Encounters Encounter DateEncounter TypeCare ProviderFacilityStart: 05-07-2025 End: 51-46-7509Ytxwpj flowsheetJr. Medina Alcala DO Work Phone: [facility]: 05-07-2025 End: 15-19-9872Rhxgzp flowsheetJr. Medina Alcala DO Work Phone: [facility]Start: 05-07-2025 End: 95-38-1942Nljccy outpatient new 30 minutesJr. Medina Alcala DO Work Phone: [facility]opaedicsComment on above:Primary osteoarthritis of right hip (Primary Dx); Acute right hip painStart: 05-07-2025 End: 58-56-6778rnvtcfdrrxLD., MEDINA ALCALANot AvailableStart: 05-05-2025 End: 16-77-2005hhotynsjemVwplsl E Braun MD Work Phone: -[facility] BellueStart: 05-05-2025 End: 04-07-4337Tagbkmm encounter procedureJuliudmila Carbone DO-[facility] Work Phone: Start: 25-57-6205Ccj-patient / Non-visitAndrius Jesus Alberto [facility] Work Phone: Start: 04-28-2025 End: 89-26-5002imrldffcooWvytmtn Kimberlynytshraddhaas Jesus Alberto MDFacility:[facility] [place] Start: 07-32-5727Dki-patient / Non-visitAndrius Jesus Alberto [facility] Work Phone: Start: 04-14-2025 End: 59-62-2337icdbbiodngOsqlzxv Aylin Granda MDFacility:[facility] [place] Start: 04-02-2025 End: 32-06-6060Tkuelkb encounter statusPrasanth Perez MD Work Phone: [facility]Start: 04-02-2025 End: 64-93-6314OwkyrrVffneuc Almahameed MD Work Phone: [facility] CardiologyComment on above:RefillStart: 03-24-2025 End: 64-18-6059melkzweraoHarkdkq Aylin Granda MDFacility:[facility] [place] Start: 03-03-2025 End: 76-90-5995aeggdjnqtaRwikce E Braun MD Work Phone: [facility] Work Phone: Start: 03-03-2025 End: 12-32-6735Kbxbuyt encounter procedurePeter Carbone DO-[facility] Work Phone: Start: 02-12-2025 End: 71-58-6706npxftxgpjgMpkopo E Braun MD Work Phone: [facility] Work Phone: Start: 02-12-2025 End: 85-41-8378Ytyxril encounter procedureDonald Lizarraga MD-[facility] Work Phone: Start: 12-23-2024 End: 80-18-5905tczwfefjtsKcatrtl Aylin Granda MDFacility:[facility] [place] Start: 91-90-5639Rkk-patient / Non-visitAndrius Bettyedraitis MD-[facility] Work Phone: Start: 12-16-2024 End: 29-49-7126lirfpbmiqlVnkvhzyLindsay Granda MDFacility:[facility] [place] Start: 12-14-2024 End: 99-75-2960Xciktq encounterSguillejavi Carnes DO Work Phone: [facility]HealthStart: 26-48-9535Fmo-patient / Non-visit Merlyn Casillas [facility] Work Phone: Start: 11-25-2024 End: 22-45-9380diavtgwuceVmvtkrcLindsay Granda MDFacility:[facility] [place] Start: 11-06-2024 End: 09-90-9887KmfwhaFrobkpbRandall Perez MD Work Phone: [facility] CardiologyComment on above:RefillStart: 05-29-2024 End: 98-79-6365njyjjkvybePaxwdc E Braun MD Work Phone: [facility] Work Phone: Start: 05-29-2024 End: 08-47-1568Nssttla encounter procedureDonald Lizarraga MD Work Phone: [facility] Work Phone: Start: 05-26-2024 End: 73-75-4307pnvkdphzlbNeidfa E Braun MD Work Phone: [facility] Work Phone: Start: 05-26-2024 End: 84-35-4531Gfcatdg encounter procedureDonald Lizarraga MD Work Phone: [facility] Work Phone: Start: 05-08-2024 End: 02-94-5596hotdqqafgwJrjefendnHighland District Hospital Work Phone: Start: 05-08-2024 End: 49-80-1033Kmkoljz encounter procedureLouisa Physician [facility] Work Phone: Start: 31-88-4326Nvc-patient / Non-visitAt[facility] Work Phone: Start: 04-15-2024 End: 48-88-7531Uzsfva outpatient visit 25 minutesPrasanth Perez MD Work Phone: [email or web address] CardiologyComment on above:PAF (paroxysmal atrial fibrillation) (HCC) (Primary Dx)Start: 04-15-2024 End: 97-13-2013nyghpdrnteGSQGEYT ALMAHAMEEDFacility:METROHealthStart: 01-23-2024 End: 40-00-7040gccutywttgBKQVSHIZ E PERRYFacility:EU BellevueStart: 01-23-2024 End: 23-19-6327Awwvtry encounter procedureJENNIFER E TIANA [facility] start: 12-27-2023 End: 63-80-5415Izmqvva encounter statusSaima Deyvi DO Work Phone: [email or web address]: 12-27-2023 End: 69-89-8367JkdupqNzgtz Karim DO Work Phone: MetddUiatec CardiologyComment on above:RefillStart: 10-19-2023 End: 47-73-0170vanuxorqtbEmajkpvrlHighland District Hospital Work Phone: Start: 10-19-2023 End: 94-54-9029Ohcrukr encounter procedureLouisa [facility]ician [facility] Work Phone: Start: 11-58-7292Nkh-patient / Non-visitNorth [facility]ty Hospitalaxel [facility] Work Phone: Start: 07-20-2023 End: 34-73-2986dwssggdvtxTrrwac Braun Other noFreshplum Other Start: 41-66-6410Nfjvzxtqd encounterDonald [facility] ClinicStart: 07-13-2023 End: 67-60-8043rzytrmkxsfHuflxj Braun Other noFreshplum Other Start: 90-51-4505Waoala outpatient visit 15 minutes Donald Cross [facility] ClinicStart: 05-45-5570Dbhslyg encounter status Emperatriz Carnes DO Work Phone: [facility]ouyiroHealthStart: 06-25-5544PaitbpYrsgv Karim DO Work Phone: [facility] CardiologyComment on above:RefillStart: 03-29-2023 End: 59-08-8067Reyjpv outpatient visit 15 minutesSaquique Reynoldsim DO Work Phone: [facility] CardiologyComment on above:Persistent atrial fibrillation (HCC) (Primary Dx); Anticoagulated; JAVED on CPAPStart: 03-28-2023 End: 26-58-9869etwyqzvgzbEansek Braun Other noFreshplum Other Start: 44-46-0847Cvcmtbftr encounterDonald [facility]an [facility] ClinicStart: 76-81-0069Rimxta encounterSaima Karim DO Work Phone: [facility]osouyiroHealthStart: 71-70-8932Tlatzwwtu encounterSaima Karim DO Work Phone: [facility] CardiologyComment on above:Question about medicationRefillStart: 62-32-3829Vvvmmtb encounter statusSaima Karim DO Work Phone: metroHealthStart: 54-43-7722CoajxyZjijq Karim DO Work Phone: [facility] CardiologyComment on above:RefillStart: 01-24-2023 End: 04-77-3613Bko Drop offJENNIFER E TIANA [facility] Start: 01-24-2023 End: 54-18-9372Uqkntny encounter procedureJENNIFER E TIANA [facility] [place] start: 11-10-2022 End: 13-93-9727lwmmfkctvwNBVFGSB HALKER .Facility:V2Iuerd: 11-07-2022 End: 93-57-5090wrjxfehofyGZ DONALD Mccaincility:H5Pjcvc: 84-34-6507ksaerdltyz NARENDRANATH LAKSHMIPATHY .Facility:F2Igtgy: 10-11-2022(Televisit) Televisit Donald [facility]: 10-11-2022 End: 10-34-6930allctdyreiWelrub Braun Other Silas [employer] Other Start: 10-10-2022 End: 17-28-3521omawgeigtoKPPSLV H FAWWADFacility:L7Mfnvt: 10-06-2022 End: 00-05-1523Uxklufu encounter procedureMaher IBARRA [facility] Start: 69-38-2284Vrxcwegvt encounterMarsekou [facility] Centertart: 2022 End: 17-92-0737zckbmlcdeqOD DONALD [facility] Foound Other Start: 09-07-2022 End: 82-53-6169suplwvpceuKBRIGZ H FAWWADFacility:C2Qejav: 08-10-2022 End: 98-16-2949kbgezovmbqONTZNO H FAWWADFacility:D2Zrccf: 07-29-2022 End: 66-64-4816Hbfvgnm encounter procedureElicia Mcmillan 306-3757Bsyaoo-UiqyfOhiohealth [facility] Start: 07-26-2022 End: 53-46-8163ywucaxrgwzQnknzk Braun Other Silas [employer] Other Start: 56-97-1677Iikzvm outpatient visit 15 minutes Donaldtrixie Cross [facility] Res[facility]art: 07-20-2022 End: 60-36-2283qujedoexgbRT JADENSUGAR VILLA .Facility:O2Bbozl: 07-11-2022 End: 48-31-2477alfhbmkeoaILVDOQ Gurwinder FAWWADFacility:F5Ufaac: 06-28-2022 End: 96-49-8252ffrsgofyfiUO JADEN Michael VILLA .Facility:U7Oivlk: 06-09-2022 End: 83-23-6021glqbbdlofqCK DONALD E BRAUNFacility:E6Qqxzl: 05-26-2022 End: 97-08-6548pcamommsfmTH DONALD E BRAUNFacility:Q4Jltuk: 05-10-2022 End: 10-78-3837zemuipgjkiOS DONALD E BRAUNFacility:D0Elqiq: 04-10-2022 End: 94-55-8636tfcgtlulllEK DONALD E BRAUNFacility:N0Uwnju: 04-07-2022 End: 18-54-7498lxxdtcuktxPN DONALD E BRAUNFacility:L9Elmcj: 03-22-2022 End: 02-71-2213lstpftzwaqYZ DONALD E BRAUNFacility:G2Ziujt: 03-10-2022 End: 74-37-2561viqcjpybsnTS DONALD E BRAUNFacility:V0Vjqnv: 03-03-2022 End: 69-94-1501gbafcvvhokKK DONALD E BRAUNFacility:G5Idrym: 67-32-5998Lcohafn encounter statusSaquique Carnes DO Work Phone: MetV[facility]teris CardiologyStart: 58-21-9338JccglqMjqiz Karim DO Work Phone: [email or web address] CardiologyComment on above:RefillStart: 02-07-2022 End: 01-74-4889jwcboheemtVQ DONALD E BRAUNFacility:K1Qiixb: 02-07-2022 End: 34-78-6185dnkyjgreidPD MARCIA E BRAUNFacility:M4Truys: 49-10-7753Xdzoqf Emperatrizquique Carnes DO Work Phone: Met[facility]teris CardiologyComment on above:RefillStart: 01-07-2022 End: 64-89-6100gaziuygbblWW MARCIA E BRAUNFacility:P5Vkrsq: 97-97-8397Nxqevdp encounter statusSaima Karim DO Work Phone: [email or web address] CardiologyStart: 67-95-0796ViwqxtHgwup Karim DO Work Phone: [email or web address] CardiologyComment on above:RefillStart: 38-29-4177AcmotuOuqtw Karim DO Work Phone: [email or web address] CardiologyComment on above:RefillStart: 10-27-2021 End: 40-17-0294Xybzdub encounter procedureJEPATRICIA HERNANDEZ [facility] start: 85-04-1008Iddzvgl encounterDevin Greer Facility:[facility] Medical BuildingStart: 04-24-2017 End: 25-63-5266GiemhihpyuKMRMYFE PHYSICIANFacility:UTMCStart: 03-03-2017 End: 15-45-4972ZldtanfpqqPWIEWJN PHYSICIANFacility:[facility] Procedures DateProcedureProcedure DetailPerforming ClinicianStart: 90-25-7740Mfoaa hip unilateral with pelvis 2-3 viewsJr. Medina Thornton Stepanic DO Work Phone: Start: 51-42-5159Tiaeq chest X-rayDonald Lizarraga MD Work Phone: Start: 82-80-2637JcbnievbkfzKa. Stepanic DO Work Phone: Start: 76-02-2562XbnsragtgbmBkdhn SALAM Start: 02-82-7682JSB wayneDR JADEN VILLA .Comment on above:Performed By: #### PSASC #### [facility] [address] [address] [address] Jason PearsonStart: 24-52-2574Dpvvfufnowkxp prostatectomyJENNIFER TIANA Start: 73-84-2132Dydnvcuughb biopsy of prostate using ultrasound guidanceJENNIFER TIANA Start: 72-26-8504FcbqknqvkdleviddukjhzsxjvdHlkd Hipolito Start: 49-71-5094Ldawyegnd for malignant neoplasm of colonMarcia Lizarraga Other Start: 23-19-4385Qbmvngfva for malignant neoplasm of prostateMarcia Lizarraga Other Start: 21-88-0501Rdxzemz of sutureMarcia Lizarraga Other Start: 43-96-4705Iihpipr examination of patientMarcia Lizarraga Other ColonoscopyJENNIFER TIANA Excision of cystJENNIFER TIANA Local anesthetic nerve block in lower limbJENNIFER TIANA Screening for malignant neoplasm of colonMarcia Lizarraga Other Screening for malignant neoplasm of prostateMarcia Lizarraga Other Special back careJENNIFER TIANA Plan of Treatment DateCare ActivityDetailAuthorStart: 08-96-5409Vwroaixwz for malignant neoplasm of colonNOMS HealthcareStart: 28-28-4745Dryfb panelCholesterolMetroHealthStart: 05-07-2025 End: 07-50-7178Cmjietk encounter gfoqzcbyd74/29/2025 10:45 AM EDT Office Visit [facility] [address] [place] [address] Jr. Medina Alcala, [address] [address] [facility] Comment on above:ArrivedStart: 46-77-4319KNQOW-19 Vaccine ( season) COVID-19 Vaccine ( season)[facility] HealthcareStart: 00-76-9933ZOEIH-19 Vaccine ( season)COVID-19 Vaccine ( season)[facility] Start: 29-01-8340Dpfccfesk vaccinationInfluenza Vaccine (#1)MetroHealthStart: 52-31-4178Vmjnuxg [facility] Work Phone: Start: 47-09-6836STUNU-19 Vaccine ( season) COVID-19 Vaccine ( season)MetroHealthStart: 15-78-5992DXHSH-19 Vaccine ( season)COVID-19 Vaccine ( season)[facility] Start: 15-17-3628Qjckknjyd vaccinationInfluenza Vaccine (#1)[facility]roHealthStart: 10-89-4077Xgniinbtm vaccinationInfluenza Vaccine (#1)MetroHealthStart: 03-29-2023 End: 00-37-8047Kohnylqkcfbc consultation with klebsgk1003/29/2023 4:20 PM EDT Telemedicine [facility] [address] [place] [address] Emperatriz Carnes DO [address] [place] [address] [facility] CardiologyStart: 03-10-2023 COVID-19 Vaccine ( season)COVID-19 Vaccine ( season) [facility]HealthStart: 99-18-7458Jkwxiyvib vaccinationInfluenza Vaccine (#1) MetroHealthStart: 60-50-5187Pntepqjphnvj vaccinationMetroHealthStart: 04-09-2022 Influenza vaccinationInfluenza Vaccine (#1)MetroHealthStart: 07-85-6775BDFZQ-19 Vaccine (5 - Booster for Pfizer series)COVID-19 Vaccine (5 - Booster for Pfizer series)[facility]roHealthStart: 57-25-5090WSCIT-19 Vaccine (5 - Pfizer series)COVID-19 Vaccine (5 - Pfizer series)MetroHealthStart: 91-80-7692Spzmcmltz vaccination Influenza Vaccine (#1)MetroHealthStart: 70-02-1242PXIUV-19 Vaccine (4 - Booster for Pfizer series)COVID-19 Vaccine (4 - Booster for Pfizer series)[facility] Start: 01-94-6888EWCTL-19 Vaccine (4 - Booster for Pfizer series)COVID-19 Vaccine (4 - Booster for Pfizer series)MetroHealthStart: 94-94-0836Shzjq metabolic 2000 panel - Serum or PlasmaBasic Metabolic PanelMetroHealthStart: 55-10-8092Pbtqkvsszm measurementBasic Metabolic PanelMetroHealthStart: 62-65-1860Gtplsi wellness visitAnnual Wellness Visit (G0438)MetroHealthStart: 45-25-5605Fbghlafnu B (HBV) Vaccine (optional start 60+ years)Hepatitis B (HBV) Vaccine (optional start 60+ years)MetroHealthStart: 46-04-5435MVS vaccine (adult) (1 - Risk 60-74 years 1-dose series)RSV vaccine (adult) (1 - Risk 60-74 years 1-dose series)MetroHealthStart: 26-16-7302EBR vaccine (optional 60+ years) RSV vaccine (optional 60+ years)MetroHealthStart: 51-67-8239Lgdpmeffris of occult blood in single stool specimenFITMetroHealthStart: 11-91-8606Jydhofqkm for malignant neoplasm of colonCRC ScreeningMetroHealthStart: 26-30-2943Dbktfboh (RZV) Vaccine (1 of 2)Shingles (RZV) Vaccine (1 of 2)MetroHealthStart: 73-96-0401Qeqlslscb for malignant neoplasm of colonMetroHealthStart: 1988 Lipid panelCholesterolMetroHealthStart: 13-72-8710Aevtpjgdn A (HAV) Vaccine (optional start 19+ years)Hepatitis A (HAV) Vaccine (optional start 19+ years) MetroHealthStart: 07-59-4685Befartmfi C screeningHepatitis C AntibodyMetroHealth Start: 30-99-6108Ighwgml + diphtheria + acellular pertussis vaccine (product) Tdap BoosterMetroHealthStart: 66-50-8102EJvH/Tdap/Td Vaccines (1 - Tdap) DTaP/Tdap/Td Vaccines (1 - Tdap)[facility] HealthcareStart: 04-39-5738PCAPL-19 Vaccine ( formulation)COVID-19 Vaccine ( formulation)[facility] Start: 72-77-5123Njzugvqvu for malignant neoplasm of colonMetroHealthPatient EducationLow back pain in adultsJoint [facility] District Memorial Hospital Work Phone: Patient referralJoint [facility] District Memorial Hospital Work Phone: Immunizations Immunization DateImmunizationNotesCare KcncxlowUpjgzisj85-67-3622cngpvwscm virus vaccine, unspecified formulationJr. Stepanic DO Work Phone: [facility] CenterZuduosohvz55-51-2319Xkmyvpktngpk conjugate 20 valent (PCV20), polysaccharide WQU299 conjugate, adjuvant, PF (RFQ=656)Emperatriz Karim DO Work Phone: [phone]pZmywhs55-78-7909lwhdmiwmt virus vaccine, unspecified formulationCATHIE TIANA [facility]11-01-2023Influenza, seasonal vaccine, quadrivalent, adjuvanted, 0.5mL dose, preservative free (BUI=384)Emperatriz Karim DO Work Phone: [phone]xDjtdwm06-12-5107psrcisgrg virus vaccine, unspecified formulationElicia Mcmillan [phone]-EwnuuOhiohealth [facility] Dig[facility]ive Hlobzn52-64-4861 Influenza, seasonal vaccine, quadrivalent, adjuvanted, 0.5mL dose, preservative free (PZN=046)Emperatriz Karim DO Work Phone: [phone]cWzuwrv47-84-1881Epqzef Monovalent (12+ yrs) SARS-COV-2 (COVID-19) vaccine, mRNA, spike protein, LNP, pres. free, 30mcg/0.3mL dose, art-sucrose (CNA=550)Emperatriz Carnes DO Work Phone: GtljyPesysi12-865460CtsukDaxego50-49-4902ACHQ-UgK-9 mRNA (fevytvrwwtp-bnwy-vnsaquf) vaccineBe Hipolito [phone]-UfgeyKettering Health [facility] Campus02-09-2022 pneumococcal conjugate vaccine, 13 valentSlesly Carnes DO Work Phone: [phone]wRcazcp38-91-2069XXVH-AxZ-1 (COVID-19) mRNA BNT- 162b2 vavianney Mcmillan [phone]-AotevKettering Health Main Campus11-17-2021 SARS-CoV-2 (COVID-19) Ad26 vaccine, recombinantJENNIFER TIANA [facility] 11989557-24-3305Bkiidnzfq, seasonal vaccine, quadrivalent, adjuvanted, 0.5mL dose, preservative free (HBD=140)Emperatriz Carnes DO Work Phone: [phone]qXkxsuk56-58-6745bzhgwuwcp virus vaccine, unspecified formulationSlesly Carnes DO Work Phone: Iujurk-UqmzhKettering Health Main Campus10-20-2021 influenza virus vaccine, unspecified formulationJENNIFER TIANA [facility] 10-583073-97-5589ZOCS-IaA-0 (COVID-19) Ad26 vaccine, recombinantJENNIFER TIANA [facility] 03261140-90-3579Mxemju SARS-COV-2 (COVID-19) vaccine, age 12+ yrs, mRNA, spike protein, LNP, preservative free, 30 mcg/0.3mL dose (JVY=612) Emperatriz Karim DO Work Phone: MetroHealthComment on above:Result Comment: 2022-07-27: DKS3835-16-8920Vxavfw SARS-COV-2 (COVID-19) vaccine, age 12+ yrs, mRNA, spike protein, LNP, preservative free, 30 mcg/0.3mL dose (HWS=917)Emperatriz Karim DO Work Phone: MetroHealthComment on above:Result Comment: 2022-07-27: MPA1362-88-8280hntbnpjvt virus vaccine, unspecified formulation CATHIEHUNTER AZEVEDORY [facility] 10408005-20-3072zudkzmrye virus vaccine, unspecified formulationElicia Zamarripaz 177-0678Injkes-XggwbOhiohealth [facility] Digestive Atsmdl24-92-5506 Influenza, seasonal vaccine, quadrivalent, adjuvanted, 0.5mL dose, preservative free (QSS=146)Emperatriz Karim DO Work Phone: [phone]jKrxcuq58-61-6431dobmnsoqi virus vaccine, unspecified formulationElicia Zamarripaz [phone]-ChhxmOhiohealth [facility] Digestive Vghszx65-56-0514 influenza, high dose seasonal, preservative-freeSaima Karim DO Work Phone: [phone]lSdwjps35-77-5674hgrjjoczh virus vaccine, unspecified formulationElicia Zamarripaz [phone]-NveabOhiohealth [facility] Digestive Grahmz09-58-8588 Influenza, injectable, Madin [place] Canine Kidney, preservative free, quadrivalentSaima Karim DO Work Phone: [phone]sYagdlf41-19-0105ttaetzjvv virus vaccine, split virus (incl. purified surface antigen)Donald Lizarraga Other noePrivate[employer] Other 398764-54-1633dmsjmdntl virus vaccine, unspecified formulationTrumbull Regional Medical Center10-11-2016pneumococcal polysaccharide vaccine, 23 valentDonald Lizarraga Other [facility]12-15-2014influenza virus vaccine, split virus (incl. purified surface antigen)Donald Lizarraga Other [employer]Private[employer] Other 12184663-13-9068ggnsnkivn virus vaccine, unspecified formulationTrumbull Regional Medical Center08-07-2014diphtheria, tetanus toxoids and acellular pertussis vaccine, unspecified formulationDonald Lizarraga Other [facility] Payers DatePayer CategoryPayerPolicy [id number] Health InsuranceAARP [id number] Indemnity [employer] [id number] 2023Unknown2019Medicare [id number] 2019Medicare [facility] [id number] [id number] [id number] 2.0.5.525418.9041-02-1954 [id number] 2..1.970660.3.57[id number] 2.0.1.058585.3.579.2.77363-41-7297Kgoygiv2877539 2.0.1.871421.3.579.[id number] 2.0.1.873647.3.579.[id number] 2.840.1.911682.3.579.2.84285-85-8425Rdoxgtn2987330 2.16840.1.733688.3.57[id number] 2.16840.1.314977.3.579.2.04814-34-1500Wexgcqv6783773 2.840.1.033406.3.579.2.39636-62-2397Mrlenom4225536 2.16.840.1.685036.3.579.2.02801-71-7727Shqmqsr3669455 2.16.840.1.244877.3.579.2.92981-38-0266Sywrjdk3660445 2.16.840.1.466902.3.579.2.79666-87-2059Vkwwmlt5120910 2.16.840.1.494015.3.579.2.59846-92-9138Tuhfplm4715764 2.16840.1.933725.3.579.2.31943-99-5964Jhnkrjd0934517 2.840.1.988179.3.57[id number] 2.840.1.252968.3.579.2.36615-85-7866Omitdpa9889436 2.840.1.696831.3.579.2.74950-16-4082Rvozgru6224287 2.840.1.713002.3.579.2.26278-10-3272Thgywyr1941494 2.840.1.449379.3.579.2.28291-64-0592Tvfkmey6420217 2.840.1.784017.3.579.2.58695-27-4265Slmnaxp6408661 2.16840.1.882258.3.579.2.91423-17-8227Zvvokmz4049394 2.16840.1.966279.3.579.2.47401-43-5735Kmhnnfw2826233 2.16840.1.703872.3.579.[id number] 2.16840.1.888496.3.579.2.50450-73-7713Imwdxak87360264 2.16.840.1.830526.3.57[id number] 2.16.840.1.432851.3.579.2.87[id number] 2.16.840.1.021413.3.579.2.80987-48-8562Ijfmvhu961539756 2.16.840.1.592882.3.57[id number] 2.16.840.1.033631.3.579.2.07015-52-3345Swwnozc882604310 2.16.840.1.782470.3.579.2.69503-36-6491Vjbzxga408088028 2.16.840.1.137273.3.579.2.21171-97-2323Rbomxbd422952622 2.16.840.1.097890.3.579.2.60852-67-6184Giyqkzw18230353 2.16.840.1.227076.3.579.2.088[id number] 2.16840.1.036402.3.579.2.2333Wgulncj[id number]-m7d1-2970-4t14-[id number] Social History DateTypeDetailFacilityStart: 09-03-2020 End: 98-21-6233Xgliqpa smoking statusNever smoked tobacco (finding)[facility] start: 03-72-0649Otxplnq smoking statusNeverExec[facility] start: 03-27-2023 End: 69-57-1751Igj Assigned At BirthMale[facility] start: 12-28-2018 End: 58-37-3098Tsdocmf use and exposureSmokeless tobacco non-userMet[facility]Health Start: 12-28-2018 End: 51-67-9618Qwognax intakeEx-drinker (finding)[facility]: 55-15-8976Gqg Assigned At BirthNot on fileMetroHealthStart: 15-05-0939[facility]kj [facility] End: 10-26-0909Jjmycil of Social functionMetroHealthWithin the last year, have you been afraid of your partner or ex-partner?NoMetroHealthDo you belong to any clubs or organizations such as lutheran groups, [employer], [employer] or athletic [employer], or school groups?YesMetroHealthAre you now , , , , never or living with a partner?MarriedMetroHealthDo you feel stress - tense, restless, nervous, or anxious, or unable to sleep at night because yourmind is troubled all the time - these days [OSQ]Not at all [facility](I/We) worried whether (my/our) food would run out before (I/we) got money to buy more.Never trueMetroHealthStart: 05-44-9871Ohittmwdx47JkzxrKkrkgo Start: 08-09-2018 End: 70-91-0631LvrWhup (finding)[facility]: 98-18-2279Vkgvvbo of drug misuse behaviorHas never misused drugs (situation) MetroHealthTobacco smoking status NHISTobacco smoking consumption unknownNOMS Healthcare Functional Status KllwGcfmqamhpuVynztfSmnskqfy42-78-0978Ntovrwgyis StatusN/AExec[facility]07-18-2023Functional StatusN/A[facility]03-30-2023Functional StatusN/A [facility] CenterLwlhce33-34-0377Gdmdeeldos StatusN/AFtato-R [facility] Clinical Notes 11-24-2021 to 05-07-2025 Note Date & [id number] History of Present illness Narrative* Medina Thornton Fredrick, DO - 05/07/2025 10:45 AM EDT Images [...] XRAYS, 01/31/22 IN [facility] MRI L-SPINE 04/23/25 @[facility] (IN CHANGE) NO MDP / PREDNISONE S/P IA CORTISONE INJ 02/07/22 @[facility] S/P PT @[facility] MANNY S/P PT @[facility] 05/18/25 HX PAIN MGMT [...] come here orbital with Dr. Sanchez in [place] A understandsthe risks and benefits of said [...] [3] No Known Allergies documented in this encounterWestern Missouri Medical CenterMqchzvtatd31-97-2050 Evaluation note* Diagnosis Onset Date Resolution Status Admit Date A-fib acuteAugust 2024 9:16amBilateral primary osteoarthritis of hipacuteAugust 2024 9:16amBilateral primary osteoarthritis of kneeacuteAugust 2024 9:16amLumbar painacuteAugust 2024 9:16amMedicare annual wellness visit, subsequentacuteAugust 2024 9:16amOSA on CPAPacuteAugust 2024 9:16am Degenerative joint disease (DJD) of hipacuteAugust 2024 10:28am [facility] Work Phone: 1(883) 533-239108-06-2025 Evaluation note* Diagnosis Onset Date Resolution Status Admit Date A-fib acuteAugust 2024 9:16amBilateral primary osteoarthritis of hipacuteAugust 2024 9:16amBilateral primary osteoarthritis of kneeacuteAugust 2024 9:16amLumbar painacuteAugust 2024 9:16amMedicare annual wellness visit, subsequentacuteAugust 2024 9:16amOSA on CPAPacuteAugust 2024 9:16am Degenerative joint disease (DJD) of hipacuteAugust 2024 10:28am Degenerative joint disease (DJD) of hipacuteOctober 2024 10:50am [facility] Work Phone: 1(148) 526-434510-30-2024 Evaluation note* Diagnosis Onset Date Resolution Status Admit Date Bronchitis acuteOctober 2023 9:18amCoughnoneactiveNovember 2023 9:07am [facility] Work Phone: 1(643) 570-652710-07-2024 History of Present illness Narrative* Prasanth Perez [...] his last visit, he had lexiscan at [facility] on 09/2016 that showe no reversible [...] in 1 year Prior to your visit, [facility] shared information with you about [...] 180 Tablet 3 Sodium Sulfate-Mag Sulfate-KCl (Sutab) 5740-110-129 MG TABS Take by mouth. AMLODIPINE BESYLATE [...] declined Stress: No Stress Concern Present (03/27/2023) [employer] - Occupational Stress Questionnaire Feeling of Stress : Not at all Social Connections: Moderately Integrated (03/27/2023) Social Connection and Isolation Panel [NHANES] Frequency of Communication with Friends and Family: More than three times a week Frequency of Social Gatherings with Friends and Family: Twice a week Attends Sabianism Services: Never Active Member of Clubs or Organizations: Yes Attends Club or Organization Meetings: More than 4 times per year Marital Status: Intimate Partner Violence: Not At Risk (03/27/2023) Humiliation, Afraid, Rape, and Kick questionnaire Fear of Current or Ex-Partner: No Emotionally Abused: No Physically Abused: No Sexually Abused: No No family history on file. documented in this [id number] Hospital Discharge instructions Patient Education 01/23/2024 14:28:31 [...] Follow these instructions at home: Medicines Take htpe-ljd-mntkzjs and prescription medicines only as told by [...] provider. Document Revised: 09/22/2021 Document Reviewed: 09/22/2021 [employer] Patient Education 2022 el?. Follow Up Care 01/24/2023 10:37:20 With:CATHIE HERNANDEZ PA-C, URL Address: [address] [place] [place] [address] [phone] When: only if needed [facility] 07-16-2024 NotePatient Education Urology Erectile Dysfunction [...] these instructions at home: Medicines ? Take vqyv-uit-uzbujga and prescription medicines only as told by [...] nicotine or tobacco. These (more content not included)...[facility]01-04-2024 Evaluation note* Encounter Date Diagnosis Assessment Notes Treatment Notes Treatment Clinical Notes Jul, Obstructive sleep apnea (ICD-10 - G47.33) Clinical signs which suggest the need for pressure adjustment were reviewed. He is compliant and faithful w using the device. Jul,Unspecified atrial fibrillation (ICD-10 - I48.91)>15 min spent in discussion/decision making.Continue followup w cardiology Jul,Essential hypertension (ICD-10 - I10)as above [facility] Other 09-20-2023 History of Present illness Narrative* [...] on his self checks. He was on Wkinlblfhp470 mg BID and Lopressor 100 mg BID. Since patient last saw me, he had TURP done- no further hematuria or urgency. PSA has been stable. Colonoscopy was normal per patient. No melena etc. ALLERGIES: Allergies Allergen Reactions Other (Review Comments!) MEDICATIONS: Current Outpatient Medications Medication Sig Dispense Refill Sodium Sulfate-Mag Sulfate-KCl (Sutab) 5309-542-653 MG TABS Take by mouth. AMLODIPINE BESYLATE [...] refused Stress: No Stress Concern Present (03/27/2023) [employer] - Occupational Stress Questionnaire Feeling of Stress : Not at all Social Connections: Moderately Integrated (03/27/2023) Social Connection and Isolation Panel [NHANES] Frequency of Communication with Friends and Family: More than three times a week Frequency of Social Gatherings with Friends and Family: Twice a week Attends Sabianism Services: Never Active Member of Clubs or [...] Assessment/Plan: Persistent atrial fibrillation (HCC) (Primary Diagnosis) [000478] Anticoagulated [749067] JAVED on CPAP [391979] Patient doing well overall as far as [...] Electrophysiology 03/29/23 4:52 PM documented in this [id number] Telephone encounter Note* Telephone Encounter - Crystal Putnam RN - 02/17/2023 9:17 AM EDT LVM for pt that new generic Rx (Toprol XL) was sent over to [facility]. [id number] Miscellaneous Notes* Telephone Encounter - Crystal Putnam RN - 02/17/2023 9:17 AM EDT LVM for pt that new generic Rx (Toprol XL) was sent over to [facility]. * Telephone Encounter - Heather Renteria - 02/16/2023 9:38 AM EDT [facility] is calling wanting to know if they can dispense Metoprolol SUCC- ER 100 mg instead ofthe Toprol XL 100 mg, pt's insurance will only cover the generic brand. Please contact [phone] use Re:[phone]. Thank you documented in this [id number] Telephone encounter Note* Telephone Encounter - Aundrea Davis PharmD - 02/16/2023 3:00 PM EDT Patient called stating the original prescription that was sent had a KP for Toprol XL 100mg which is not covered. Please send over generic Metoprolol ER Succinate 100mg. Thank you! [id number] Miscellaneous Notes* Telephone Encounter - Aundrea Davis PharmD - 02/16/2023 3:00 PM EDT Patient called stating the original prescription that was sent had a KP for Toprol XL 100mg which is not covered. Please send over generic Metoprolol ER Succinate 100mg. Thank you! documented in this [id number] Telephone encounter Note* Telephone Encounter - Dexter Heather Norberto - 02/16/2023 9:38 AM EDT [facility] wanting to know if they can dispense Metoprolol SUCC- ER 100 mg instead ofthe Toprol XL 100 mg, pt's insurance will only cover the generic brand. Please contact [employer] [phone] use Re:[phone]. Thank you [facility] Work Phone: 1(553) 378-506707-18-2023 Hospital Discharge instructions Patient Education 01/24/2023 10:34:12 [...] Follow these instructions at home: Medicines Take gjnm-gby-pxxenfl and prescription medicines only as told by [...] provider. Document Revised: 09/22/2021 Document Reviewed: 09/22/2021 [employer] Patient Education 2022 el?. Follow Up Care 10/27/2021 12:15:55 With:TIANA GARCIA, CATHIE Ruano, URL Address: [address] [place] [address] [place] [address] When:Within 1 Year(s) [facility] 04-04-2023 Evaluation note* Encounter Date Diagnosis [...] - I48.91)stable. 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 [facility] Other 03-30-2023 Evaluation + Plan noteExtracted from:Title: KRISSY post opAuthor:Daljit Gooden MDDate:10/06/22 Plan Transfer/Discharge: Transfer/Discharge Discharge when meets criteria ( To home ). Extracted from:Title:RKISSY GAAuthor:Daljit Gooden MDDate:10/06/22 Plan [place] [employer] Anesthesiologists (ASA) physical status classification: Class III. Anesthetic Preoperative Plan: Anesthesia General. Future Appointments Appointment Date:01/25/2023 10:00:00 AM Scheduled Provider:Erica Chua MD Location:[facility] Appointment Type:URO Office Visit [facility]03-30-2023 Hospital Discharge instructions Patient Education 10/06/2022 [...] 03/22/2005 Document Revised: 10/11/2018 Document Reviewed: 10/11/2018 [employer] Patient Education 2020 el?. 10/06/2022 10:00:07 Hemorrhoids, Psry-oy-Gfqq Hemorrhoids Hemorrhoids are swollen veins that may [...] 3 times a day. General instructions Take wiaz-xap-gbywscu and prescription medicines only as told by [...] 04/04/2009 Document Revised: 07/04/2019 Document Reviewed: 11/15/2018 [employer] Patient Education 2020 el?. Follow Up Care 07/29/2022 15:02:48 With:Oxana IBARRA Address: [address] [place] [address] Business (1) When: Unknown Comments:Call for any problems. [facility]01-20-2023 Hospital Discharge instructions Patient Education 07/29/2022 [...] including vitamins, herbs, eye drops, creams, and kakz-sxy-vuhhaeu medicines. Any problems you or family members [...] 06/23/2001 Document Revised: 04/18/2018 Document Reviewed: 09/06/2016 [employer] Patient Education Pelliano. Follow Up Care 07/05/2022 09:47:30 With:Elicia Mcmillan CNP Address: When:1 to 2 weeks Comments:Following colonoscopy. [facility] 01-17-2023 Evaluation note* Encounter [...] way. Continue follow-up with cardiology as scheduled. [facility] Other 01-11-2023 NoteCONSULTATION CONSULTATION DATE: 07/20/2022 HISTORY [...] in three months' time unless otherwise indicated.[facility] 07-20-2022 NoteCONSULTATION PROCEDURE DATE: 07/20/2022 [...] fan-like pattern. 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 He states that such activity has [...] for re-evaluation. Patient agrees to this plan.[facility] CenterFfberunf88-36-1990 NoteCONSULTATION CONSULTATION DATE: 03/03/2022 This is a 99-ltvm-tetscympk returning to clinic for a 3-month follow-up. [...] be followed up in the office following.[facility] CenterEzjfybyl74-05-8818 Telephone encounter Note* Telephone Encounter - Erica Beckett - 03/01/2022 11:40 AM EDT Patient has not been seen by this specialist in more than 1 year. Please contact patient to schedule office visit. Thank you [id number] Miscellaneous Notes* Telephone Encounter - Erica Beckett - 03/01/2022 11:40 AM EDT Patient has not been seen by this specialist in more than 1 year. Please contact patient to schedule office visit. Thank you documented in this [id number] Telephone encounter Note* Telephone Encounter - Irina Nguyen - 01/18/2022 7:23 AM EDT Last visit with Cardiology (Emperatriz Carnes) on 09/03/2020 Requested Prescriptions Pending Prescriptions Disp Refills metoprolol (TOPROL-XL) 100 mg XL tablet [Pharmacy Med Name: METOPROLOL SUCCINATE ER TABS 100MG] 90 Tablet 3 Sig: TAKE 1 TABLET DAILY No PCP on file No PCP on file [id number] Miscellaneous Notes* Telephone Encounter - Irina Nguyen - 01/18/2022 7:23 AM EDT Last visit with Cardiology (Emperatriz Carnes) on 09/03/2020 Requested Prescriptions Pending Prescriptions Disp Refills metoprolol (TOPROL-XL) 100 mg XL tablet [Pharmacy Med Name: METOPROLOL SUCCINATE ER TABS 100MG] 90 Tablet 3 Sig: TAKE 1 TABLET DAILY No PCP on file No PCP on file documented in this [id number] Telephone encounter Note* Telephone Encounter - Anirudh Gonzalez RPh - 11/29/2021 3:11 PM EDT Pt called back, will talk to his [facility] to get refill [facility] Work Phone: [phone] Miscellaneous Notes* Telephone Encounter - Anirudh Gonzalez RPh - 11/29/2021 3:11 PM EDT Pt called back, will talk to his [facility] to get refill * Telephone Encounter - Asia Laguna RN - 11/29/2021 2:52 PM EDT Left message for pt to return call to ACC at [phone] 2nd attempt * Telephone Encounter - Cathie Whitley RN - 11/26/2021 2:46 PM EDT Left message for patient to please call back. 1st attempt * Telephone Encounter - Anirudh Gonzalez RPh - 11/25/2021 9:37 AM EDT [facility] Staff, Please contact pt re the following issue. Per 09/03/21 note pt goes to [facility] , they should refill, will deny Thanks! * Telephone Encounter - Tamiko Rodriguez PharmD - 11/24/2021 4:09 PM EDT Requested Prescriptions Pending Prescriptions Disp Refills warfarin (COUMADIN) 5 MG tablet 90 Tablet 0 Sig: Take 1 Tablet by mouth daily. No PCP on file No PCP on file documented in this [id number] Telephone encounter Note* Telephone Encounter - Asia Laguna RN - 11/29/2021 2:52 PM EDT Left message for pt to return call to [facility] at [phone] 2nd attempt [facility] Work Phone: [phone] 799-881405-20-2022 Telephone encounter Note* Telephone Encounter - Cathie Whitley RN - 11/26/2021 2:46 PM EDT Left message for patient to please call back. 1st attempt [id number] Telephone encounter Note* Telephone Encounter - Anirudh Gonzalez RPh - 11/25/2021 9:37 AM EDT [facility] Staff, Please contact pt re the following issue. Per 09/03/[facility] , they should refill, will deny Thanks! [id number] Telephone encounter Note* Telephone Encounter - Tamiko Rodriguez PharmD - 11/24/2021 4:09 PM EDT Requested Prescriptions Pending Prescriptions Disp Refills warfarin (COUMADIN) 5 MG tablet 90 Tablet 0 Sig: Take 1 Tablet by mouth daily. No PCP on file No PCP on file [facility] Work Phone: 1(561) 302-555105-18-2022 Miscellaneous Notes* Telephone Encounter - Tamiko Rodriguez [...] [Pharmacy Med Name: POTASSIUM CHLORIDE ER (DISP) [id number]] 180 Tablet 3 Sig: TAKE 1 TABLET TWICE A DAY Refused Prescriptions Disp Refills warfarin (COUMADIN) 5 MG tablet [Pharmacy Med Name: WARFARIN TABS 5MG] 90 Tablet 3 Sig: TAKE 1 TABLET DAILY (INR: 2.33) No PCP on file No PCP on file documented in this encounterMetroHealthEvaluation + Plan note Future Appointments Appointment Date:11/01/2022 09:45:00 AM Scheduled Provider:Min Tristan Jr., MD Location:[facility] Appointment Type:URO Office Visit Diagnostic Tests Pending * PSA Total 10/27/21 [facility] evaluation + Plan note Future Appointments Appointment Date:10/06/2022 09:00:00 AM Scheduled Provider: Location:[facility] Appointment Type:Surgery FT Appointment Date:11/01/2022 09:45:00 AM Scheduled Provider:Min Tristan Jr., MD Location:[facility] Appointment Type:URO Office Visit [facility] Evaluation + Plan note Future Appointments Appointment Date:01/30/2024 10:00:00 AM Scheduled Provider:CATHIE HERNANDEZ PA-C Location:[facility] Appointment Type:URO Office Visit [facility] evaluation + Plan note Future Appointments Appointment Date:01/30/2024 10:00:00 AM Scheduled Provider:CATHIE HERNANDEZ PA-C Location:[facility] Appointment Type:URO Office Visit Diagnostic Tests Pending * Urine Culture [facility]23 [facility] Diagnosis PAF (paroxysmal atrial fibrillation) [...] present documented in this encounter MetroHealthEvaluation noteNo [facility] Other Evaluation note* Diagnosis Persistent atrial fibrillation [...] in this encounter MetroHealthEvaluation noteNo assessment information availableJoint [facility] Work Phone: Evaluation note* Diagnosis [...] Diagnosis Onset Date Resolution Status Bronchitis acute [facility] Work Phone: Evaluation note* Diagnosis Onset Date Resolution Status Admit Date A-fib acuteAugust 2024 9:16amBilateral primary osteoarthritis of hipacuteAugust 2024 9:16amBilateral primary osteoarthritis of kneeacuteAugust 2024 9:16amLumbar painacuteAugust 2024 9:16amMedicare annual wellness visit, subsequentacuteAugust 2024 9:16amOSA on CPAPacuteAugust 2024 9:16am [facility] Work Phone: Evaluation note* Diagnosis PAF (paroxysmal atrial fibrillation) Atrial fibrillation Anticoagulated Encounter for long-term (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 Preop cardiovascular exam Pre-operative cardiovascular examination JAVED on CPAP Obstructive sleep apnea (adult) (pediatric) Obesity, unspecified class, unspecified obesity type, unspecified whether serious comorbidity present documented in this encounter [facility]HealthEvaluation note* Diagnosis Primary osteoarthritis of right hip- Primary Acute right hip pain documented in this encounter [facility]OM[facility] HealthcareHistory general Narrative - Reported* Type Description Date Medical History Family history of malignant neop lasm of digestive organs Medical HistoryMalignant neoplasm of ascending colonMedical HistoryTubular adenoma of colonMedical HistoryEncounter for screening for malignant neoplasm of colonMedical HistoryA-fibMedical Historyessential hypertensionMedical History cutaneous candidiasisMedical Historypulmonary embolismMedical Historyobstructive sleep apneaMedical Historyperipheral neuralgiaMedical HistoryhematuriaMedical Historypulmonary hypertensionSurgical Historycolon resectionSurgical History pilonidal cyst removalHospitalization HistoryNo Hospitalization history information [facility] Other Hospital course Narrative No data available for this section [facility] Hospital Discharge instructions No data available for this section [facility] Hospital Discharge instructionsAmbulatory Orders* Referral to Orthopedic Surgery Location: None [facility] Work Phone: Progress note No data available for this section [facility] Reason for referral (narrative)No reason for referral information availableJoint Township District [facility] Work Phone: Summary Purpose Family History [...] 2025 9:1 6am [place] [facility] [place] February 12, 2025 9:16am JAVED on [...] 2025 9:1 6am Medicare annual wellness visit, [facility] February 12, 2025 9:16am JAVED on [...] and content) DATE CREATED AUTHOR 01/02/2018 [facility] DATE CREATED AUTHOR AUTHOR'S ORGANIZ ATION 04/24/2018 [employer] DATE CREATED AUTHOR AUTHOR'S ORGANIZ ATION 05/06/[address] [facility] DATE CREATED AUTHOR AUTHOR'S ORGANIZ ATION 12/16/2022 [facility] DATE CREATED AUTHOR AUTHOR'S ORGANIZ ATION 01/25/2024 [facility] DATE CREATED AUTHOR AUTHOR'S ORGANIZ ATION 04/15/2024 [facility] DATE CREATED AUTHOR AUTHOR'S ORGANIZ ATION 05/28/2024 [facility] DATE CREATED AUTHOR AUTHOR'S ORGANIZ ATION 05/03/2025 [facility] DATE CREATED AUTHOR AUTHOR'S ORGANIZ ATION 05/11/2025 [facility] EPIC Reason for Visit (unrecogniz ed section and content) ReasonCommentsRefillReasonOnset BsumBvrmfsrtLwylro99/18/2022ReasonOnset Date OlhxkhkjJfzear44/08/2023ReasonOnset DateCommentsQuestion about medication 02/16/2023ReasonOnset PikoOcfctfobFuyniu68/10/2023ReasonCommentsAtrial fibrillation/flutterReasonCommentsNew patient, to establish relationshipReason Onset PtvlTnqovdyqTywram77/30/2025ReasonOnset HiszMzzkwgoeBrallt57/24/2025Reason CommentsPain Care Teams (unrecognized sec tion and content) Team MemberRelationshipSpecialtyStart DateEnd Date Emperatriz Carnes, [address] [place] [address] KuqobesqoDaumhsobznhrafpmr50/12/27Team MemberRelationshipSpecialtyStart DateEnd Date Emperatriz Carnes, DO [address] [place] [address] MrqyqnatfJlrzestubvowzoysk50Team MemberRelationshipSpecialtyStart DateEnd Date Emperatriz Carnes, DO [address] [place] [address] XkofoellnDylcbbikwmequxqwn46Team MemberRelationshipSpecialtyStart DateEnd Date Emperatriz Carnes, DO [address] [place] [address] NzfdpblovSguilcjokaugplkhd80Team MemberRelationshipSpecialtyStart DateEnd Date Emperatriz Carnes, DO [address] [place] [address] GxfyrwjvwDtcedsassuvldivwv92Team MemberRelationshipSpecialtyStart DateEnd Date Deyvi Emperatriz, DO [address] [place] [address] CkpxnfqueIzhzktgkyhopyazav44/20Team MemberRelationshipSpecialtyStart DateEnd Date Deyvi Emperatriz, DO [address] [place] [address] MdtptcdoeLbkqkpedfqgxblalq26/20Team MemberRelationshipSpecialtyStart DateEnd Date Emperatriz Carnes, DO [address] [place] [address] RkijsolryBpzrvtckokwbwgikz27/6/20Team MemberRelationshipSpecialtyStart DateEnd Date Emperatriz Carnes DO [address] [place] [address] DryqebplkRpgtqlflxbvdlocja57/6/20 Team Status: Active Member Role Status Dates [...] October 19, 2023Team MemberRelationshipSpecialtyStart DateEnd Date Emperatriz Carnes DO [address] [place] [address] LtoubnoykOcztzjuhnisqaigyq04/6/20Team MemberRelationshipSpecialtyStart DateEnd Date Emperatriz Carnes DO [address] [place] [address] VeausowcgVodjgdxudvcprhjph14/6/20 Team Status: Active Member Role Status Dates Donald Lizarraga MD Primary Care Provider Active Start: April 29, 2024 Blessing Granda , MDAttending ProviderActiveStart: April 29, 2024 Team Status: Inactive [...] MemberRelationshipSpecialtyStart DateEnd Date Emperatriz Carnes DO [address] [place] [address] SkytwjnwsJhsnjdnygpdnqwxep98/6/20 Prasanth Perez MD [address] [place] [address] PhysicianCardiac Kqvifmevzvylqqgdv32/2/24Team MemberRelationshipSpecialtyStart DateEnd Date Deyvi Emperatriz, [address] [place] [address] TjqhuozhiKwllnoqzvrnoyahur55/6/20 Prasanth Perez MD [address] [place] [address] PhysicianCardiac Enmkesffirsriucmw71/2/24 Team Status: Active Member Role Status Dates Donald Lizarraga MD Primary Care Provider Active Start: November 28, 2024 Cy Pacheco ProviderActiveStart: November 28, 2024 Team Status: Active Member Role Status Dates Donald Lizraraga MD Primary Care Provider Active Start: December [...] Start: March 03, 2025 End: March 03, 2025JuMichael Castilloending ProviderActiveStart: March 03, 2025 End: March 03, 2025Team MemberRelationshipSpecialtyStart DateEnd Date Deyvi Emperatriz [address] [place] OdernnxrzWkntvkbbybetnhwzn15/6/20 Prasanth Perez MD [address] [place] [address] PhysicianCardiac Nbkkswqppoymbbumr98/2/24 Team Status: Active Member Role/Relationship Status Dates [...] Care Provider Active Start: April 14, 2025 Andwilfredo Granda MDAttending ProviderActiveStart: April 14, 2025 Team Status: Active Member Role/Relationship Status Dates Donald Lizarraga MD Primary Care Provider Active Start: April 28, 2025 AndEle Jeffersending ProviderActiveStart: April 28, 2025 Team Status: Inactive Member Role/Relationship Status Dates Donald Lizarraga MD Primary Care Provider Active Start: May 05, 2025 End: May 05, 2025JuKesha Castillo ProviderActiveStart: May 05, 2025 End: May 05, 2025Team MemberRelationshipSpecialtyStart DateEnd Date Donald Lizarraga MD [address] [place] [phone] PCP - GeneralFamily Chufvkbq80/29/25Team MemberRelationshipSpecialtyStart Date End Date Donald Lizarraga MD [address] [place] [phone] PCP - GeneralFamily Qndbpbfd35/29/25 Goals (unrecognized section and content) Goals may [...] BE BASED ON THE PRIMARY CLINICAL RECORDS. [facility]. provides no warranty or guarantee of the accuracy or completeness of information in this document.
--- OUTSIDE RECORDS SUMMARY | 2025-05-12 07:18 | XMS_ITS | Clinical Summary ---
Author Organization [facility] Address [address] [place] [address] Phone Care Team Providers Care Spotlight Operator Name Role Phone Rocio Bagley MD Primary Care Provider [phone] Social History Tobacco UseTypesPacks/DayYears UsedDateSmoking Tobacco: Never AssessedSex and Gender InformationValueDate RecordedSex Assigned at BirthNot on fileLegal Sex Male06/04/2022 12:38 PM ESTGender IdentityNot on fileSexual OrientationNot on file Plan of Treatment Not on file Care Teams Team MemberRelationshipSpecialtyStart DateEnd Date Rocio Bagley MD [address] [place] [address] [place] [address] [facility] - [facility]03/28/18
--- OUTSIDE RECORDS SUMMARY | 2025-05-12 07:18 | XMS_ITS | Clinical Summary ---
Author Organization [facility] Address [address] [facility], [address] [place] [address] Care Team Providers Care Twister In Name Role Phone Unavailable Primary Care Provider Unavailabl e Allergies No known active allergies Medications No known medications Family History Medical HistoryRelationNameCommentsArthritisFatherCancerFatherCancerMother RelationNameStatusCommentsFatherMother Social History Tobacco UseTypesPacks/DayYears UsedDateSmoking Tobacco: Never AssessedSmokeless Tobacco: NeverSex and Gender InformationValueDate RecordedSex Assigned at Not on fileLegal LkuHuia6009/24/2018 2:14 PM EDTGender IdentityNot on fileSexual OrientationNot on file Last Filed Vital Signs Vital SignReadingTime TakenCommentsBlood Pressure--Pulse--Mggugbprtdo02.4 ??C (97.6 ??F)10/26/2018 2:33 PM EDTRespiratory Rate--Oxygen Saturation--Inhaled Oxygen Concentration--Sfarbn188.4 kg (325 lb)10/26/2018 2:33 PM QBCNhmgxw727 cm (6' 2 )10/26/2018 2:33 PM EDTBody Mass Index41.7310/26/2018 2:33 PM EDT Plan of Treatment Not on file Insurance [place] [id number]
--- OUTSIDE RECORDS SUMMARY | 2025-05-12 07:18 | XMS_ITS | Clinical Summary ---
Author Organization [facility] Address [address] [place] [address] Care Team Providers Care Bottle Inspector Name Role Phone Rocio Bagley MD Primary Care Provider [phone] Allergies No known active allergies Medications MedicationSigDispense QuantityRefillsLast FilledStart DateEnd DateStatus lisinopril 40 MG tablet Take 40 mg by mouth DailyActive hydroCHLOROthiazide (HYDRODiuril) 25 MG tablet Take 25 mg by mouth DailyActive atorvastatin (Lipitor) 20 MG tablet Take 20 mg by mouth DailyActive flecainide (Tambocor) 100 MG tablet Take by mouthActive warfarin (Coumadin) 5 MG tablet Take by mouth Take as directed per After Visit Summary.Active metoprolol tartrate (Lopressor) 100 MG tablet Take 100 mg by mouth in the morning and 100 mg before bedtime.Active potassium chloride CR (Klor-Con M20) 20 MEQ ER tablet Take 20 mEq by mouth Daily Do not crush or chew.Active baclofen (Lioresal) 10 MG tablet Take by mouth in the morning and in the evening and before bedtime.Active Multiple Vitamin (multivitamin) tablet Take 1 tablet by mouth DailyActive Calcium Carbonate-Vitamin D (OSCAL 500 D-3 PO) Take by mouthActive Calcium Carbonate-Vitamin D (OSCAL 500/200 D-3 PO) Take by mouthActive gabapentin (Neurontin) 300 MG capsule Take 300 mg by mouth in the morning and 300 mg in the evening and 300 mg before bedtime.Active olopatadine (Patanol) 0.1 % ophthalmic solution 1 drop in the morning and 1 drop before bedtime.Active clotrimazole (Lotrimin) 1 % cream Apply topically in the morning and before bedtime.Active Encounters DateTypeDepartmentCare FjwiMmjjjtmmjbn76/29/2025 11:15 AM EDTAncillary Procedure [facility] [address] [place] [address] 05/07/2025 10:45 AM EDTOffice Visit [facility] [address] [place] [address] Jr. Mamadou Alcala DO Primary osteoarthritis of right hip (Primary Dx); Acute right hip pain05/07/2025amboo flowsheet [facility] [address] [place] [address] Jr. Mamadou Alcala DO 05/07/2025Travelfrom Last 3 Months Social History Tobacco UseTypesPacks/DayYears UsedDateSmoking Tobacco: NeverSmokeless Tobacco: Never Tobacco Cessation:Counseling Given: Not Answered Sex and Gender InformationValueDate RecordedSex Assigned at BirthNot on file Legal UkoQvuo9009/21/2022 7:40 PM EDTGender IdentityNot on fileSexual Orientation Not on file Last Filed Vital Signs Vital SignReadingTime TakenCommentsBlood Pressure--Pulse--Temperature-- Respiratory Rate--Oxygen Saturation--Inhaled Oxygen Concentration--Jgdztk574 kg (329 lb)05/02/2022 12:00 PM XIKLbjpve776.4 cm (6' 1 )05/02/2022 12:00 PM EDTBody Mass Index43.411 12:00 PM EDT Plan of Treatment Health MaintenanceDue DateLast DoneCommentsCT Rvetpvmcbjwu31/02/1956FIT-DNA 1955FIT1955FOBT1955 4302Cmykymeouaqvq41/02/1956TaP/Tdap/Td Vaccines (1 - Tdap)1960OVID-19 Vaccine ( - season)2025 12/16/2021, 06/09/2021, 05/26/2021, Additional history existsInfluenza Vaccine (#1), 05/10/2023, 05/24/2022, Additional history exists Aoddqehdvqh64/30/537612/3Colorectal Cancer Brjlzeukl76/30/2033Pneumococcal Vaccine: 65+ AfehgOmcfuxudl29/15/2023, 08/18/2021, 04/19/2016HIB VaccinesAged OutNo longer eligible based [...] on patient's age to complete this topic Procedures Procedure NamePriorityDate/TimeAssociated DiagnosisCommentsXR HIP 2 OR 3 VW LYZNLMgujkty29/29/2025 11:11 AM EDT Acute right hip pain from Last 3 Months Results * XR hip right 2 or [...] StatusJr. Mamadou Alcala DOIMG XR PROCEDURESFinal Result from Last 3 Months Insurance * Guarantor: Evangelist Ybarra DAccount TypeRelation to PatientDate of BirthPhone Billing AddressPersonal/IljajdJgpl42/02/1956 ([place]) [address] [address] Care Teams Team MemberRelationshipSpecial[place] [address] [place] [address] [place] [address] PCP - GeneralFamily Lzxdcfeu38/29/25
--- OUTSIDE RECORDS SUMMARY | 2025-05-12 07:18 | XMS_ITS | Clinical Summary ---
Author Organization [facility] Address [address] [facility] [place] [address] Care Team Providers Care Watch Dial Printer Name Role Phone Emperatriz Carnes DO Unavailable Carlos Nuñez MD Unavailable Source Comments The following information is NOT included in Care Everywhere downloads:Psychiatric notes, ECG results, Cardiac Rehab notes, Pulmonary Function notes, data from [employer] (includes but not limited toPregnancy data,audiograms, eye exams, pre-surgical evaluation notes, well-child exam data).[facility] Allergies Active AllergyReactionsCriticalityNoted DateCommentsOther (Review Comments!) 12/28/2018 Medications MedicationSigDispense QuantityRefillsLast FilledStart DateEnd DateStatus atorvastatin (LIPITOR) 20 MG tablet Indications:Preop cardiovascular exam,PAF (paroxysmal atrial fibrillation), Anticoagulated,JAVED on CPAP,Obesity, unspecified classification, unspecified obesity type, unspecified whether serious comorbidity ugteitw9111/19/2018Active hydrochlorothiazide (HYDRODIURIL) 25 MG tablet Indications:Preop cardiovascular exam,PAF (paroxysmal atrial fibrillation), Anticoagulated,JAVED on CPAP,Obesity, unspecified classification, unspecified obesity type, unspecified whether serious comorbidity oncmmbb6111/19/2018Active lisinopril (PRINIVIL, ZESTRIL) 40 MG tablet Indications:Preop cardiovascular exam,PAF (paroxysmal atrial fibrillation), Anticoagulated,JAVED on CPAP,Obesity, unspecified classification, unspecified obesity type, unspecified whether serious comorbidity cqfwhie4711/19/2018Active loratadine (CLARITIN) 10 MG tablet Indications:Preop cardiovascular [...] unspecified obesity type, unspecified whether serious comorbidity fqutwta02 mL.Active AMLODIPINE BESYLATE ORAL amLODIPine Besylate Not-TakingActive sildenafil citrate (VIAGRA) 25 MG tablet Take 25 mg by mouth.01/24/2023ctive Sodium Sulfate-Mag Sulfate-KCl (Sutab) 7168-088-319 MG TABS Take by mouth.07/29/2022ctive potassium chloride [...] Tablet 5Active Active Problems ProblemNoted DateDiagnosed DateErectile yrphfzmjtou49/20/202309/pnea, sleepsymptomatic microscopic tjsycrpan33/ Family history of colon ojervn02/History of colorectal cancer /1958Mbrhkgskvrasva70/25/2021levated PSA05/27/2020Arthritis 05/27/2020Hypertensive kyudrlkm87/21/2019Atrial qgbsoyngfpai63/21/2019Malignant tumor of colon11/07/2014 Resolved Problems ProblemNoted DateDiagnosed DateResolved DatePAF (paroxysmal atrial fibrillation) Urinary nnviaxc71Nocturia05/27/2020 03/29/2023Increased frequency of fmacclhyf21Incomplete emptying of xgvcytw46ross kxfszuzdi42PH with urinary Encounters DateTypeDepartmentCare QwybAmzrhnmknaw36/24/2025Refill [facility] [address] [place], [place] [address] Carlos Nuñez MD Refillfrom Last 3 Months Immunizations ImmunizationAdministration DatesNext DueInfluenza, Injectable, MDCK, Quadrivalent, Preservative Free (WOI=708)04/26/2018Influenza, injectable, adjuvanted, quadrivalent, preservative free (WZU=047)05/10/2023,05/24/2022, 05/21/2021,05/05/2020Influenza, injectable, high dose seasonal, trivalent, preservative free (DCU=449)04/29/2019Influenza, unspecified formulation (CVX=88) 04/28/2021Alycia SARS-COV-2 (COVID-19) vaccine, vector non-replicating, recombinant spike protein-Ad26, preservative free, 0.5 mL (KQO=434)05/26/2021 Pfizer Monovalent (12+ yrs) SARS-COV-2 (COVID-19) vaccine, mRNA, spike protein, LNP, pres. free, 30mcg/0.3mL dose (OOC=063)06/09/2021,09/26/2020,09/05/2020 Pfizer Monovalent (12+ yrs) SARS-COV-2 (COVID-19) vaccine, mRNA, spike protein, LNP, pres. free, 30mcg/0.3mL dose, art-sucrose (JRT=603)12/16/2021neumococcal conjugate 13 valent (PCV13) (JSI=131)08/18/2021neumococcal conjugate 20 valent (PCV20), polysaccharide LTR406 conjugate, adjuvant, PF (ODL=140)05/24/2023 Social History Tobacco UseTypesPacks/DayYears UsedDateSmoking Tobacco: NeverSmokeless [...] relatives?Twice a week03/27/2023How often do you attend jewish or moravian services?Never3Do you belong to any clubs or organizations such as jewish groups, unions, fraternal or athletic groups, or school groups?Yes03/27/2023How often do you attend meetings of the clubs or organizations you belong to?More than 4 times per year3Are you , , , , never , or living with a partner? Zavelue9603/27/2023Overall Financial Resource Strain (CARDIA)AnswerDate Recorded How hard is it for you to pay for the very basics like food, housing, medical care, and heating?Not hard at all03/27/2023[facility] [place] [facility] Occup[facility] - Occupational Stress QuestionnaireAnswerDate RecordedDo you feel stress - tense, restless, nervous, or anxious, or unable to sleep at night because your mind is troubled all the time - these days?Not at all03/27/2023Exercise Vital SignAnswerDate RecordedOn average, how many days per week do you engage in moderate to strenuous exercise (like a brisk walk)?Patient dyjbonil74/18/2023On average, how many minutes do you engage in exercise at this level?Patient lvcukzsm99/18/2023Hunger Vital SignAnswerDate RecordedWithin the past 12 months, [...] InformationValueDate RecordedSex Assigned at BirthNot on fileLegal IqxZcod0208/09/2018 12:10 PM ESTGender IdentityNot on file Sexual OrientationNot on file Last Filed Vital Signs Vital SignReadingTime TakenCommentsBlood Xcxodssj814/72012/28/2018 2:42 PM EDT Zavdp796012/28/2018 2:42 PM EDTTemperature--Respiratory Rate--Oxygen Rcaomdhehz56% 12/28/2018 2:42 PM EDTroom airInhaled Oxygen Concentration--Sniqsr896.6 kg (321 lb)12/28/2018 2:42 PM OGCQcipsz123 cm (6' 2 )12/28/2018 2:42 PM EDTBody Mass Index41.21012/28/2018 2:42 PM EDT Plan of Treatment Health MaintenanceDue DateLast LordYuwszitaGvbhenfijav20/02/1956Hepatitis C Eqmvvpgm23/02/1972Tdap Vlwkukb0409/09/1971Hepatitis A (HAV) Vaccine (optional start 19+ years)1972CRC Kziuikzmi75/02/1999Cologuard (Stool DNA)1998 FIT1998Shingles (RZV) Vaccine (1 of 2)09/09/2003Hepatitis B (HBV) Vaccine (optional start 60+ years)2013RSV vaccine (adult) (1 - Risk 60-74 years 1- dose series)2013nnual Wellness Visit (G0438)2019Basic Metabolic Panel12/28/COVID-19 Vaccine ( season)2025 12/16/2021, 06/09/2021, 05/26/2021, Additional history existsInfluenza Vaccine (#1)511/07/2022, 05/24/2022, 05/21/2021, Additional history exists Rgeqyltabmc02/02/342959/3Pneumococcal Vaccine(s) (50+ yrs)Completed 05/24/2023, 08/18/2021 Procedures Procedure NamePriorityDate/TimeAssociated DiagnosisCommentsBASIC METABOLIC PANEL Zpsnygy9712/28/2018 3:41 PM EDT Preop cardiovascular exam PAF (paroxysmal atrial fibrillation) (HCC) Anticoagulated JAVED on CPAP Obesity, unspecified classification, unspecified obesity type, unspecified whether serious comorbidity present from Last 3 Months or Most Recently Relevant to Health Maintenance Results * (ABNORMAL) BASIC METABOLIC PANEL (12/28/2018 3:41 PM EDT)ComponentValueRef RangeTest MethodAnalysis TimePerformed AtPathologist UytxgbqahYdkozvt06(L)80 - 116 mg/dL12/28/2018 6:07 PM [facility] IOXKCOGSTCBoquvj432961 - 148 mmol/L12/28/2018 6:07 PM [facility] LABORATORYPotassium3.93.3 - 5.3 mmol/L12/28/2018 6:07 PM [facility] LABORATORYCarbon Mstaevy0164 - 30 mmol/L12/28/2018 6:07 PM [facility] KJUFDOFQEOWhjxjcyh41785 - 111 mmol/L 12/28/2018 6:07 PM [facility] LABORATORYBlood Urea Rvqbcurj943 - 22 mg/dL12/28/2018 6:07 PM [facility] LABORATORYCreatinine0.72(L)0.80 - 1.30 mg/dL12/28/2018 6:07 PM [facility] LABORATORYCalcium9.68.4 - 10.4 mg/dL12/28/2018 6:07 PM [facility] LABORATORYAnion Ydy255 - 13012/28/2018 6:07 PM [facility] LABORATORYEstimated GFR (CKD-EPI)98>=60 mL/min/1.09xeo5612/28/2018 6:07 PM [facility] LABORATORYSpecimen (Source) Anatomical Location / LateralityCollection Method / VolumeCollection Time Received TimeBloodBLOOD SPECIMEN / Vomppsd6512/28/2018 3:41 PM EDT12/28/2018 5:14 PM EDT Narrative Authorizing ProviderResult TypeResult StatusSaima Deyvi DO98 GENERAL LABFinal ResultPerforming OrganizationAddressCity/State/ZIP CodePhone Number [facility] [address] [place] [phone] from Last 3 Months or Most Recently Relevant to Health Maintenance Insurance Care Teams Team MemberRelationshipSpecialtyStart DateEnd Date Emperatriz Carnes DO [address] [place] [address] ZpypukgkeHtxxuljquqhahgjqy76/6/20 Carlos Nuñez MD [address] [address] PhysicianCardiac Mbqupmamyfiubrynr75/2/24
--- OUTSIDE RECORDS SUMMARY | 2025-05-12 07:18 | XMS_ITS | Encounter Summary ---
Author Organization [facility] Address [address] [place] [address] Care Team Providers Care House Director Name Role Phone Rocio Bagley MD Primary Care Provider [phone] Encounter Details DateTypeDepartmentCare Team (Latest Contact Info)Eqhvlqmiizn24/29/2025amboo flowsheet [facility] [address] [place] [phone] Jr. Mamadou Alcala, DO [address] [facility] [address] [place] [address] Social History Tobacco UseTypesPacks/DayYears UsedDateSmoking Tobacco: NeverSmokeless Tobacco: NeverSex and Gender InformationValueDate RecordedSex Assigned at BirthNot on fileLegal VnfFikc5109/21/2022 7:40 PM EDTGender IdentityNot on fileSexual OrientationNot on filedocumented as of this encounter Plan of Treatment Not on file documented as of this encounter Visit Diagnoses Not on filedocumented in this encounter Care Teams Team MemberRelationshipSpecialtyStart DateEnd Date Rocio Bagley MD [address] [facility] [place] [address] PCP - GeneralFamily Hufzjikd36/29/25documented as of this encounter
--- OUTSIDE RECORDS SUMMARY | 2025-05-12 07:18 | XMS_ITS | Encounter Summary ---
Author Organization [facility] Address [address] [place] [facility] [place] [address] Care Team Providers Care Field Services Analyst Name Role Phone Rocio Bagley MD Primary Care Provider [phone] Encounter Details DateTypeDepartmentCare Team (Latest Contact Info)Zoojfnauckx91/29/2025Travel Social History Tobacco UseTypesPacks/DayYears UsedDateSmoking Tobacco: NeverSmokeless Tobacco: NeverSex and Gender InformationValueDate RecordedSex Assigned at BirthNot on fileLegal RwpMohg2109/21/2022 7:40 PM EDTGender IdentityNot on fileSexual OrientationNot on filedocumented as of this encounter Plan of Treatment Not on file documented as of this encounter Visit Diagnoses Not on filedocumented in this encounter Care Teams Team MemberRelationshipSpecialtyStart DateEnd Date Rocio Bagley MD [address] [facility] [place] [address] PCP - GeneralFamily Rdjnkoxf18/29/25documented as of this encounter
[2025-05-12 07:38] LABS: INR 3.22; Prothrombin Time 30.4 sec (9.0-11.6)
[2025-05-12 07:40] VITALS: BP 133/81; PULSE 63; TEMP 36.8; O2SAT 98
[2025-05-12 08:27] VITALS: BP 117/70; PULSE 67; O2SAT 96
[2025-05-12] MEDS: 0.9 % SODIUM CHLORIDE 10 ML SYRINGE - SALINE FLUSH INJ (08:30)
[2025-05-12] MEDS: DEXAMETHASONE SOD PHOS 10 MG/ML VIAL INJ (08:30)
[2025-05-12] MEDS: BUPIVACAINE HCL 0.25% PF 25 MG/10 ML VIAL INJ (08:30)
[2025-05-12] MEDS: IOHEXOL 240 MG/ML - 10 ML VIAL 24 MG INJ (08:30)
[2025-05-12] MEDS: LIDOCAINE HCL 2% 400 MG/20 ML MDV INJ (08:31)
[2025-05-12 08:33] VITALS: BP 123/59; PULSE 69; O2SAT 95
--- NOTE | 2025-05-12 08:33 | P.ON_ITS ---
Date of procedure: 05/12/25 Pre-op diagnosis: Pain due to lumbar stenosis with neurogenic claudication Post-op diagnosis: same as pre-op Procedure: Procedure: Right L2-3, L3-4 transforaminal epidural steroid injection Medications: Bupivacaine 0.25% 2cc, lidocaine 2% 1cc, dexamethasone 10mg The patient was seen and examined in the preoperative holding area.? Informed consent was obtained and placed on the chart.? Patient was brought to the medical procedure unit and placed in the prone position where a timeout was completed verifying the correct patient, procedure site, position, and planned special equipment using sterile aseptic technique.? Under direct fluoroscopic visualization a 25-gauge Quincke tipped spinal needle was advanced to the designated neural foramen where contrast dye was injected to show adequate spread.? The needle was inserted at level right L2-3. There was no evidence of vascular or adverse uptake.? Epidural spread was appreciated.? The above- mentioned injectate was then placed in a 1.5 mL aliquot preceded by negative aspiration.? The needle was removed. The needle was inserted and the procedure repeated at level right L3-4.? The surgery site was covered.? Patient was taken to the postprocedural recovery area and monitored for an appropriate length of time before found suitable for discharge in the accompaniment of a responsible adult. Anesthesia: Local Surgeon: Blessing Granda Pathology: none sent Condition: stable Disposition: no change
== END 2025-05-12 08:41 | disposition home or self-care (01) ==
PROVIDERS: PCP Family Medicine; Visit Provider Anesthesiology
DX: M48.062 Spinal stenosis, lumbar region with neurogenic claudication (principal); M54.50 Low back pain, unspecified; Z79.01 Long term (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
CPT/HCPCS: 36415; 64483; 64484; 85610; J0665; J1100; Q9966

== ENCOUNTER 2025-05-21 09:45 | Outpatient (OUT) | payer MEDICARE, SELFPAY ==
--- OUTSIDE RECORDS SUMMARY | 2025-05-07 09:45 | XMS_ITS | Encounter Summary ---
Author Organization [facility] Address [address] [place] [address] Care Team Providers Care Cabinet Maker Name Role Phone Rocio Bagley MD Primary Care Provider [phone] Reason for Visit * ReasonCommentsPain Encounter Details DateTypeDepartmentCare Team (Latest Contact Info)Yyvuumgyjyr40/29/2025 10:45 AM EDTOffice Visit [facility] [address] [facility] [address] [place] [phone] Jr. Mamadou Alcala, DO [address] [place] [address] Primary osteoarthritis of right hip (Primary Dx); Acute right hip pain Social History Tobacco UseTypesPacks/DayYears UsedDateSmoking Tobacco: NeverSmokeless Tobacco: Never Tobacco Cessation:Counseling Given: Not Answered Sex and Gender InformationValueDate RecordedSex Assigned at BirthNot on file Legal HykWhez0809/21/2022 7:40 PM EDTGender IdentityNot on fileSexual Orientation [...] come here orbital with Dr. Sanchez in [place] understandsthe risks and benefits of said [...] NamePriorityDate/TimeAssociated DiagnosisCommentsXR HIP 2 OR 3 VW CMAHBGzkylpy42/29/2025 11:11 AM EDT Acute right hip pain [...] DateEnd Date Rocio Bagley MD [address] [place] [address] PCP - GeneralFamily Zixlqznz47/29/25documented as of this encounter
--- OUTSIDE RECORDS SUMMARY | 2025-05-07 10:15 | XMS_ITS | Encounter Summary ---
Author Organization [facility] Address [address] [place] [address] Care Team Providers Care Analytical Clerk Name Role Phone Rocio Bagley MD Primary Care Provider [phone] Encounter Details DateTypeDepartmentCare Team (Latest Contact Info)Peebwbnmkmy51/29/2025 11:15 AM EDTAncillary Procedure [facility] [place] [facility] [address] [place] [phone] Social History Tobacco UseTypesPacks/DayYears UsedDateSmoking Tobacco: NeverSmokeless Tobacco: NeverSex and Gender InformationValueDate RecordedSex Assigned at BirthNot on fileLegal JknTxwa4809/21/2022 7:40 PM EDTGender IdentityNot on fileSexual OrientationNot on filedocumented as of this encounter Plan of Treatment Not on file documented as of this encounter Procedures Procedure NamePriorityDate/TimeAssociated DiagnosisCommentsXR HIP 2 OR 3 VW HSIYHNcpdvhv10/29/2025 11:11 AM EDT Acute right hip pain [...] hip Authorizing ProviderResult TypeResult StatusJr. Mamadou Alcala DOIMG XR PROCEDURESFinal Result documented in this encounter Visit Diagnoses Not on filedocumented in this encounter Care Teams Team MemberRelationshipSpecialtyStart DateEnd Date Rocio Bagley MD [address] [place] [address] PCP - GeneralFamily Cuneiuyo16/29/25documented as of this encounter
--- OUTSIDE RECORDS SUMMARY | 2025-05-21 09:49 | XMS_ITS | Encounter Summary ---
Author Organization [facility] Address [address] [place] [address] Care Team Providers Care Central Scheduler Name Role Phone Rocio Bagley MD Primary Care Provider [phone] Encounter Details DateTypeDepartmentCare Team (Latest Contact Info)Halobwtzmhx29/29/2025amboo flowsheet [facility] [address] [place] [phone] Jr. Mamadou Alcala, DO [address] [facility] [address] [place] [address] Social History Tobacco UseTypesPacks/DayYears UsedDateSmoking Tobacco: NeverSmokeless Tobacco: NeverSex and Gender InformationValueDate RecordedSex Assigned at BirthNot on fileLegal OmhZlrr0409/21/2022 7:40 PM EDTGender IdentityNot on fileSexual OrientationNot on filedocumented as of this encounter Plan of Treatment Not on file documented as of this encounter Visit Diagnoses Not on filedocumented in this encounter Care Teams Team MemberRelationshipSpecialtyStart DateEnd Date Rocio Bagley MD [address] [facility] [place] [address] PCP - GeneralFamily Cjnjykrk27/29/25documented as of this encounter
--- OUTSIDE RECORDS SUMMARY | 2025-05-21 09:49 | XMS_ITS | Clinical Summary ---
Author Organization [facility] Address [address] [facility], [address] [place] [address] Care Team Providers Care Agricultural Purchasing Agent Name Role Phone Unavailable Primary Care Provider Unavailabl e Allergies No known active allergies Medications No known medications Family History Medical HistoryRelationNameCommentsArthritisFatherCancerFatherCancerMother RelationNameStatusCommentsFatherMother Social History Tobacco UseTypesPacks/DayYears UsedDateSmoking Tobacco: Never AssessedSmokeless Tobacco: NeverSex and Gender InformationValueDate RecordedSex Assigned at Not on fileLegal QrfXzmd6709/24/2018 2:14 PM EDTGender IdentityNot on fileSexual OrientationNot on file Last Filed Vital Signs Vital SignReadingTime TakenCommentsBlood Pressure--Pulse--Unagearvrot01.4 ??C (97.6 ??F)10/26/2018 2:33 PM EDTRespiratory Rate--Oxygen Saturation--Inhaled Oxygen Concentration--Qgfihr946.4 kg (325 lb)10/26/2018 2:33 PM OAGPhgufs329 cm (6' 2 )10/26/2018 2:33 PM EDTBody Mass Index41.7310/26/2018 2:33 PM EDT Plan of Treatment Not on file Insurance [place] [id number]
--- OUTSIDE RECORDS SUMMARY | 2025-05-21 09:49 | XMS_ITS | Encounter Summary ---
Author Organization [facility] Address [address] [place] [address] Care Team Providers Care Real Estate Paralegal Name Role Phone Rocio Bagley MD Primary Care Provider [phone] Encounter Details DateTypeDepartmentCare Team (Latest Contact Info)Ifzguwpsezw28/29/2025Travel Social History Tobacco UseTypesPacks/DayYears UsedDateSmoking Tobacco: NeverSmokeless Tobacco: NeverSex and Gender InformationValueDate RecordedSex Assigned at BirthNot on fileLegal XbcGede1909/21/2022 7:40 PM EDTGender IdentityNot on fileSexual OrientationNot on filedocumented as of this encounter Plan of Treatment Not on file documented as of this encounter Visit Diagnoses Not on filedocumented in this encounter Care Teams Team MemberRelationshipSpecialtyStart DateEnd Date Rocio Bagley MD [address] [facility] [place] [address] PCP - GeneralFamily Dvqdyxiv57/29/25documented as of this encounter
--- OUTSIDE RECORDS SUMMARY | 2025-05-21 09:49 | XMS_ITS | Clinical Summary ---
Author Organization [facility] Address [address] [place] [address] Phone Care Team Providers Care Machine Bookkeeper Name Role Phone Rocio Bagley MD Primary Care Provider [phone] Social History Tobacco UseTypesPacks/DayYears UsedDateSmoking Tobacco: Never AssessedSex and Gender InformationValueDate RecordedSex Assigned at BirthNot on fileLegal Sex Male06/04/2022 12:38 PM ESTGender IdentityNot on fileSexual OrientationNot on file Plan of Treatment Not on file Care Teams Team MemberRelationshipSpecialtyStart DateEnd Date Rocio Bagley MD [address] [place] [address] [place] [address] [facility]03/28/18
--- OUTSIDE RECORDS SUMMARY | 2025-05-21 09:49 | XMS_ITS | Clinical Summary ---
Author Organization [facility] Address [address] [place] [address] Care Team Providers Care Carbon Coater Machine Operator Name Role Phone Rocio Bagley MD Primary Care Provider [phone] Allergies No known active allergies Medications MedicationSigDispense QuantityRefillsLast FilledStart DateEnd DateStatus amLODIPine (NORVASC) 5 mg tablet Take 5 mg by mouth once daily.Active aspirin, enteric coated (ASPIRIN, ENTERIC COATED) 81 mg EC tablet Take 81 mg by mouth once daily.Active carvedilol (COREG) 25 mg tablet Take 25 mg by mouth twice daily with meals.Active Red Level-3 Fatty Acids-Vitamin E (FISH OIL) 1,000 mg [...] capsule 12/07/2014ctive Active Problems ProblemNoted DateDiagnosed DateColon vrwxov0611/07/2014 Family History Medical HistoryRelationCommentsLung cancer [Other]FatherLungBreast CancerMother Colon CancerMotherwith liver metsRelationStatusCommentsDaughterAliveFather (Age 56)Lung CancerMotherDeceased (Age 75)Colon Cancer w/liver mets/Breast CancerSister 1AliveSister 2Alive Social History Tobacco UseTypesPacks/DayYears UsedDateSmoking Tobacco: NeverSmokeless Tobacco: NeverAlcohol UseStandard Drinks/WeekCommentsNo0 (1 standard drink = 0.6 oz pure alcohol)Sex and Gender InformationValueDate RecordedSex Assigned at BirthNot on fileLegal DlsFyco3810/24/2014 2:06 PM EDTGender IdentityNot on fileSexual OrientationNot on file Last Filed Vital Signs Vital SignReadingTime TakenCommentsBlood Tblowujg87/6506 1:54 PM EDT Kcodz866312/22/2014 1:54 PM CLBOklfoehigjn22.6 ??C (97.8 ??F)12/22/2014 1:54 PM EDTRespiratory Rate--Oxygen Saturation--Inhaled Oxygen Concentration--Weight 134.3 kg (296 lb)12/22/2014 1:54 PM VKGJxicpl591.4 cm (6' 0.99 )12/22/2014 1:54 PM EDTBody Mass Index39.0612/22/2014 1:54 PM EDT Plan of Treatment Health MaintenanceDue DateLast DoneCommentsAnxiety Qeubmvsux66/02/1972Depression Frqhhsbue76/02/1972Hepatitis C Ujicfzchd42/02/1972DTaP,Tdap,Td Vaccine (1 - Tdap)1972Lipid Anqpbfqej02/02/1989CT Omoxeboyidbw11/02/1999Cologuard (FIT-DNA)09/08/19986355Njibocucyyw04/02/1999Colorectal Cancer Fifosampz33/02/1999 Diabetes Ycjogggzo96/02/1999Fecal Occult Blood09/08/19987308Gkyrbwyttsqpc92/02/1999 Pneumococcal Vaccine: 50+ (1 of 1 - PCV)09/09/2003Shingrix Vaccine (1 of 2) 09/09/2003Advance Directive Kpcrztazhs72/01/2025ovid-19 Vaccine (1 - 2024- season)2025Influenza Vaccine (#1)2025RSV Vaccine (1 - 1-dose 75+ series)2028 Insurance Care Teams Team MemberRelationshipSpecialtyStart DateEnd Date Rocio Bagley MD [address] [facility] [place] [id number] PCP - GeneralFamily Medicine10/24/14
--- OUTSIDE RECORDS SUMMARY | 2025-05-21 09:49 | XMS_ITS | Clinical Summary ---
Author Organization [facility] Address [address] [facility] [place] [address] Care Team Providers Care Senior Security Architect Name Role Phone Emperatriz Carnes DO Unavailable Carlos Nuñez MD Unavailable [phone] Source Comments The following information is NOT included in Care Everywhere downloads:Psychiatric notes, ECG results, Cardiac Rehab notes, Pulmonary Function notes, data from [employer] (includes but not limited toPregnancy data,audiograms, eye exams, pre-surgical evaluation notes, well-child exam data).[facility] Allergies Active AllergyReactionsCriticalityNoted DateCommentsOther (Review Comments!) 12/28/2018 Medications MedicationSigDispense QuantityRefillsLast FilledStart DateEnd DateStatus atorvastatin (LIPITOR) 20 MG tablet Indications:Preop cardiovascular exam,PAF (paroxysmal atrial fibrillation), Anticoagulated,JAVED on CPAP,Obesity, unspecified classification, unspecified obesity type, unspecified whether serious comorbidity ngbaudj8711/19/2018Active hydrochlorothiazide (HYDRODIURIL) 25 MG tablet Indications:Preop cardiovascular exam,PAF (paroxysmal atrial fibrillation), Anticoagulated,JAVED on CPAP,Obesity, unspecified classification, unspecified obesity type, unspecified whether serious comorbidity rfudbae3511/19/2018Active lisinopril (PRINIVIL, ZESTRIL) 40 MG tablet Indications:Preop cardiovascular exam,PAF (paroxysmal atrial fibrillation), Anticoagulated,JAVED on CPAP,Obesity, unspecified classification, unspecified obesity type, unspecified whether serious comorbidity gwpgpzl6511/19/2018Active loratadine (CLARITIN) 10 MG tablet Indications:Preop cardiovascular [...] mg by mouth.01/24/2023ctive Sodium Sulfate-Mag Sulfate-KCl (Sutab) 9986-171-144 MG TABS Take by mouth.07/29/2022ctive potassium chloride [...] Tablet 5Active Active Problems ProblemNoted DateDiagnosed DateErectile exnfoccahfy27/20/202309/pnea, sleepsymptomatic microscopic glnkkaitu99/ Family history of colon ogajno60/History of colorectal cancer /7098Xronjtksoltxcj58/25/2021levated PSA05/27/2020Arthritis 05/27/2020Hypertensive /21/2019Atrial ojhmntejyvii94/21/2019Malignant tumor of colon11/07/2014 Resolved Problems ProblemNoted DateDiagnosed DateResolved DatePAF (paroxysmal atrial fibrillation) Urinary xfcmugn01Nocturia05/27/2020 03/29/2023Increased frequency of csfyhpgvj09Incomplete emptying of yaiwbqx75ross mvgwxsahh70PH with urinary hligkwfksih44 Encounters DateTypeDepartmentCare FzwuUsfnmhndtps98/24/2025Refill [facility] [address] [place], [place] [id number] Carlos Nuñez MD Refillfrom Last 3 Months Immunizations ImmunizationAdministration DatesNext DueInfluenza, Injectable, MDCK, Quadrivalent, Preservative Free (YXK=336)04/26/2018Influenza, injectable, adjuvanted, quadrivalent, preservative free (NPM=206)05/10/2023,05/24/2022, 05/21/2021,05/05/2020Influenza, injectable, high dose seasonal, trivalent, preservative free (BRZ=556)04/29/2019Influenza, unspecified formulation (CVX=88) 04/28/2021Alycia SARS-COV-2 (COVID-19) vaccine, vector non-replicating, recombinant spike protein-Ad26, preservative free, 0.5 mL (VZE=737)05/26/2021 Pfizer Monovalent (12+ yrs) SARS-COV-2 (COVID-19) vaccine, mRNA, spike protein, LNP, pres. free, 30mcg/0.3mL dose (OFP=377)06/09/2021,09/26/2020,09/05/2020 Pfizer Monovalent (12+ yrs) SARS-COV-2 (COVID-19) vaccine, mRNA, spike protein, LNP, pres. free, 30mcg/0.3mL dose, art-sucrose (MFT=726)12/16/2021neumococcal conjugate 13 valent (PCV13) (XDS=973)08/18/2021neumococcal conjugate 20 valent (PCV20), polysaccharide JQU391 conjugate, adjuvant, PF (ZDW=975)05/24/2023 Social History Tobacco UseTypesPacks/DayYears UsedDateSmoking Tobacco: NeverSmokeless [...] relatives?Twice a week03/27/2023How often do you attend baptism or episcopalian services?Never3Do you belong to any clubs or organizations such as baptism groups, unions, fraternal or athletic groups, or school groups?Yes03/27/2023How often do you attend meetings of the clubs or organizations you belong to?More than 4 times per year3Are you , , , , never , or living with a partner? Fbwnlvy5103/27/2023Overall Financial Resource Strain (CARDIA)AnswerDate Recorded How hard is it for you to pay for the very basics like food, housing, medical care, and heating?Not hard at all03/27/2023[facility] [place] [facility] - Occupational Stress QuestionnaireAnswerDate RecordedDo you feel stress - tense, restless, nervous, or anxious, or unable to sleep at night because your mind is troubled all the time - these days?Not at all03/27/2023Exercise Vital SignAnswerDate RecordedOn average, how many days per week do you engage in moderate to strenuous exercise (like a brisk walk)?Patient xiuuufgq93/18/2023On average, how many minutes do you engage in exercise at this level?Patient sawhrzsf37/18/2023Hunger Vital SignAnswerDate RecordedWithin the past 12 months, [...] InformationValueDate RecordedSex Assigned at BirthNot on fileLegal RhkQyum7908/09/2018 12:10 PM ESTGender IdentityNot on file Sexual OrientationNot on file Last Filed Vital Signs Vital SignReadingTime TakenCommentsBlood Fcaoahmk805/72012/28/2018 2:42 PM EDT Uvtcs268212/28/2018 2:42 PM EDTTemperature--Respiratory Rate--Oxygen Uruqeewkqa68% 12/28/2018 2:42 PM EDTroom airInhaled Oxygen Concentration--Glynxm189.6 kg (321 lb)12/28/2018 2:42 PM PUYYclrrk080 cm (6' 2 )12/28/2018 2:42 PM EDTBody Mass Index41.21012/28/2018 2:42 PM EDT Plan of Treatment Health MaintenanceDue DateLast DxrlOkajfdbiRnxbihcqdmn67/02/1954Hepatitis C Fhahcdwi37/02/1972Tdap Zrzgwel9209/09/1971Hepatitis A (HAV) Vaccine (optional start 19+ years)1972CRC Vuwzdqrml83/02/1999Cologuard (Stool DNA)1998 FIT1998Shingles (RZV) Vaccine (1 of 2)09/09/2003Hepatitis B (HBV) Vaccine (optional start 60+ years)2013RSV vaccine (adult) (1 - Risk 60-74 years 1- dose series)2013nnual Wellness Visit (G0438)2019Basic Metabolic Panel12/28/COVID-19 Vaccine ( season)2025 12/16/2021, 06/09/2021, 05/26/2021, Additional history existsInfluenza Vaccine (#1)511/07/2022, 05/24/2022, 05/21/2021, Additional history exists Zabovocdozq94/02/674211/3Pneumococcal Vaccine(s) (50+ yrs)Completed 05/24/2023, 08/18/2021 Procedures Procedure NamePriorityDate/TimeAssociated DiagnosisCommentsBASIC METABOLIC PANEL Ooybdks3212/28/2018 3:41 PM EDT Preop cardiovascular exam PAF (paroxysmal atrial fibrillation) (HCC) Anticoagulated JAVED on CPAP Obesity, unspecified classification, unspecified obesity type, unspecified whether serious comorbidity present from Last 3 Months or Most Recently Relevant to Health Maintenance Results * (ABNORMAL) BASIC METABOLIC PANEL (12/28/2018 3:41 PM EDT)ComponentValueRef RangeTest MethodAnalysis TimePerformed AtPathologist TfkannpqwIhzbuxt83(L)80 - 116 mg/dL12/28/2018 6:07 PM [facility] TCHLFIZOUQIytsoe796053 - 148 mmol/L12/28/2018 6:07 PM [facility] LABORATORYPotassium3.93.3 - 5.3 mmol/L12/28/2018 6:07 PM [facility] LABORATORYCarbon Vdlionp3437 - 30 mmol/L12/28/2018 6:07 PM [facility] ZXGRZNLSSRAkzmhawl94718 - 111 mmol/L 12/28/2018 6:07 PM [facility] LABORATORYBlood Urea Lreuxzhc547 - 22 mg/dL12/28/2018 6:07 PM [facility] LABORATORYCreatinine0.72(L)0.80 - 1.30 mg/dL12/28/2018 6:07 PM [facility] LABORATORYCalcium9.68.4 - 10.4 mg/dL12/28/2018 6:07 PM [facility] LABORATORYAnion Vjc528 - 13012/28/2018 6:07 PM [facility] LABORATORYEstimated GFR (CKD-EPI)98>=60 mL/min/1.69ulw9112/28/2018 6:07 PM [facility] LABORATORYSpecimen (Source) Anatomical Location / LateralityCollection Method / VolumeCollection Time Received TimeBloodBLOOD SPECIMEN / Jdmbeth2312/28/2018 3:41 PM EDT12/28/2018 5:14 PM EDT Narrative Authorizing ProviderResult TypeResult StatusSaima Deyvi DO98 GENERAL LABFinal ResultPerforming OrganizationAddressCity/State/ZIP CodePhone Number [facility] [address] [place] [phone] from Last 3 Months or Most Recently Relevant to Health Maintenance Insurance Care Teams Team MemberRelationshipSpecialtyStart DateEnd Date Emperatriz Carnes DO [address] [place] [address] IhnuxofzcNdwiemtpudqeddvyp81/6/20 Carlos Nuñez MD [address] [place] [address] PhysicianCardiac Dzxefaofkxymhemks65/2/24
--- OUTSIDE RECORDS SUMMARY | 2025-05-21 09:49 | XMS_ITS | Clinical Summary ---
Author Organization [facility] Address [address] [place] [address] Care Team Providers Care Stadium Manager Name Role Phone Rocio Bagley MD Primary Care Provider [phone] Allergies No known active allergies Medications MedicationSigDispense [...] the morning and before bedtime.Active Encounters DateTypeDepartmentCare TrqvFsshyddkkmm80/29/2025 11:15 AM EDTAncillary Procedure [facility] [address] [place] [address] 05/07/2025 10:45 AM EDTOffice Visit [facility] [address] [place] [address] Jr. Mamadou Alcala DO Primary osteoarthritis of right hip (Primary Dx); Acute right hip pain05/07/2025amboo flowsheet [facility] [address] [place] [address] Jr. Mamadou Alcala DO 05/07/2025Travelfrom Last 3 Months Social History Tobacco UseTypesPacks/DayYears UsedDateSmoking Tobacco: NeverSmokeless Tobacco: Never Tobacco Cessation:Counseling Given: Not Answered Sex and Gender InformationValueDate RecordedSex Assigned at BirthNot on file Legal YgeSovc2109/21/2022 7:40 PM EDTGender IdentityNot on fileSexual Orientation Not on file Last Filed Vital Signs Vital SignReadingTime TakenCommentsBlood Pressure--Pulse--Temperature-- Respiratory Rate--Oxygen Saturation--Inhaled Oxygen Concentration--Nmotse695 kg (329 lb)05/02/2022 12:00 PM LJSTzlslx475.4 cm (6' 1 )05/02/2022 12:00 PM EDTBody Mass Index43.411 12:00 PM EDT Plan of Treatment Health MaintenanceDue DateLast DoneCommentsCT Ralrqoppwukk93/02/1954FIT-DNA 1953FIT1953FOBT1953 2167Kujeypptvyftv07/02/1954OVID-19 Vaccine ( season)/03/2022, 06/09/2021, 05/26/2021, Additional history existsInfluenza Vaccine (#1)510/, 05/10/2023, 05/24/2022, Additional history nmgdghRprbfwixnyh99/30/203303/30/2023Colorectal Cancer Lqbekmbjg13/30/2033Pneumococcal Vaccine: 65+ LiihmAwvxuxlau31/15/2023, 08/18/2021, 04/19/2016 Procedures Procedure NamePriorityDate/TimeAssociated DiagnosisCommentsXR HIP 2 OR 3 VW AGIVUZasqgxp58/29/2025 11:11 AM EDT Acute right hip pain [...] hip Authorizing ProviderResult TypeResult StatusJr. Mamadou Alcala [facility] XR PROCEDURESFinal Result from Last 3 Months Insurance Care Teams Team MemberRelationshipSpecialtyStart DateEnd Rocio Bagley MD [address] [place] [address] PCP - GeneralFamily Rnpgmurt25/29/25
--- OUTSIDE RECORDS SUMMARY | 2025-05-21 10:05 | XMS_ITS | CCD ---
Author Organization [facility] Care Team Providers Care Solderer Name Role Phone PHYSICIAN, DEFAULT Unavailable Unavailable [...] Admitting Unavailable HALKER ., JEET Attending Unavailable [place], DR UNA [employer] Unavailable LIZARRAGA, DR [...] Attending Provider Donald Lizarraga MD Attending Provider [phone] Donald Lizarraga MD Primary Care Provider Peter Carbone DO Attending Provider [phone] Jesus Alberto JACKSON, Andrius Kimberlynytpérez Attending Unavailable Gibryant JACKSON, Andrius Vytautfeliz Attending Unavailable Gibryant JACKSON, Andrius Vytautas Attending Unavailable Giedraitis , Andrius Vytautas Attending Unavailable Gijoannarascotty JACKSON, Andrius Vytautas Attending Unavailable Gibryant JACKSON, Andrius Vytautfeliz Attending Unavailable Donald Lizarraga MD Primary Care Provider Jesus Alberto JACKSON, Andrius Attending Provider Donald Lizarraga MD Primary Care Provider JR. ALCALA GEORGE C Attending Unavaila ble JR. ALCALA GEORGE C Referring Unavaila ble Allergies Allergy ClassificationReported Allergen(s)Allergy TypeDate of OnsetReaction(s) Facility (18 sources)Other (Review Comments!); Translations: [OTHER (REVIEW COMMENTS!)] Propensity to adverse reactions to vbmu76-42-6430UwyvqRvbqkk (14 sources)DecongestantDrug ajyuvaf36-17-2593OqcyotgOhio[facility] (11 sources)DECONGESTANTSPropensity to adverse xroigmkjx01-84-1939BfdkrymPremier Health Upper Valley Medical CenterComment on above:Onset Date: 05/03/2013 (3 sources)Allergies ReconciledPropensity to adverse reactionsUnkSaint John's [facility] onkea Other (3 sources)patient allergy list reviewed by nurse or physiciaPropensity to adverse kjvupdhfg68-03-5410Oakbzst:[facility] Other (1 source)No Known Medication Allergies; Translations: [No Known Medication Allergies]Propensity to adverse reactions (disorder)[facility] Medications Current Medications MedicationDrug Class(es)DatesSig (Normalized)Sig (Original)acetaminophen 325 mg / oxyCODONE hydrochloride 5 mg oral tablet (12 sources)Opioid AgonistStart: 70-50-3541zmeg 1 tablet by mouth every eight hours as neededOxycodone-Acetaminophen (Percocet) 5-325 mg tablet Active 1 TAB PO Every 8 hours as needed 0 May 05, 2025 12:00am Complies with drug therapy End: 82-20-8588fxiGQNULO-acetaminophen (PERCOCET) 5-325 MG tablet Indications: Preop cardiovascular exam , PAF (paroxysmal atrial fibrillation) (HCC) , Anticoagulated , JAVED on CPAP , Obesity, unspecified classification, unspecified obesity type, unspecified whether serious comorbidity present oxycodone-acetaminophen 5 mg-325 mg tablet 0 03/29/2023 Discontinuedatorvastatin 20 mg oral tablet (20 sources)HMG-CoA Reductase InhibitorStart: 08-19-8196Xdwgkufumoks 20 mg tablet Active 0 .ROUTE .COMPLEX 90 May 06, 2024 8:50pm TAKE 1 TABLET AT BEDTIME Complies with drug therapyStart: 06-37-7582Sutclfuephwc Active 0 .ROUTE .COMPLEX May 06, 2024 8:50pm TAKE 1 TABLET AT BEDTIMEStart: 12-20-2017 End: 60-53-1185tsmf 1 tablet by mouth once daily at bedtimeAtorvastatin 20 mg tablet Discontinued 20 MG PO Daily at bedtime October 18, 2023 12:00am May 06, 2024 8:50pm FreeTextSig: TAKE 1 TABLET AT BEDTIME; Note: Source Status: Taking; Refills: 3; Qty: 90 Tablet; Provider: Elham Chan ( ) azithromycin 250 mg oral tablet (2 sources)Macrolide AntimicrobialStart: 94-05-7894Sgcgyhcrxymn 250 MG as directed Orally 2 tabs po today, then 1 tab daily x 4 more days for 5 Oct, Activebetamethasone 0.5 mg/ml / clotrimazole 10 mg/ml topical cream (18 sources)Azole Antifungal, CorticosteroidStart: 10-18-2023 End: 08-33-5573Taribcrffgcz-Betamethasone 1-0.05 % cream Active 1 APPLIC TOPICAL Twice daily as needed for rash 451 April 04, 2024 12:18pm Complies with drug therapyStart: 53-63-3743Gtllngnwufik-Betamethasone 1-0.05 % 1 application Externally Twice a day, as needed for 30 days Mar, Activecalcium carbonate 1250 mg oral tablet (20 sources)Start: 10-18-2023 End: 08-44-3126buud 1 tablet by mouth once dailyCalcium Carbonate 500 mg calcium (1,250 mg) tablet Active 500 MG PO Daily October 19, 2023 12:00am Complies with drug therapyStart: 28-41-3170iubu 500 mg by mouth twice dailyOs-Avery 500 [...] mg oral tablet (3 sources)Histamine-1 Receptor AntagonistStart: 65-63-2734orru 1 tablet by mouth once daily as neededCetirizine (Zyrtec) 10 mg tablet Active 10 MG PO Daily as needed February 12, 2025 12:00am Complies with drug therapyclotrimazole 10 mg/ml topical cream (2 sources)Azole Antifungalclotrimazole (Lotrimin) 1 % cream Apply topically in the morning and before bedtime. Activeflecainide acetate 100 mg oral tablet (20 sources)AntiarrhythmicStart: 68-28-1939ptxd 1 tablet by mouth twice daily flecainide (TAMBOCOR) 100 MG tablet Indications: Persistent atrial fibrillation (HCC) Take 1 Tabletby mouth 2 times daily. 180 Tablet 3 09/27/2024 ActiveStart: 88-70-0857gkehtgtbhh (TAMBOCOR) 100 MG tablet Indications: Persistent atrial fibrillation (HCC) TAKE 1 TABLETTWICE A DAY 180 Tablet 3 12/28/2023 ActiveStart: 01-78-0244aqom 0.5 tablet by mouth every twelve hoursFlecainide 100 mg tablet Active MG PO October 18, 2023 12:00am FreeTextSi.5 tablet Orally every12 hrs; Note: Source Status: Taking; Provider: Elham Chan ( ) Complies with drug therapyStart: 09-03-2020 End: 39-35-6651awvf 1 tablet by mouth twice dailyflecainide (TAMBOCOR) 100 MG tablet Indications: Persistent atrial fibrillation (HCC) Take 1 Tabletby mouth 2 times daily. 180 Tablet 3 02/14/2023 05/15/2023 ActiveStart: 15-51-2278yipk 0.5 tablet by mouth every twelve hoursFlecainide Active MG PO October 18, 2023 12:00am FreeTextSi.5 tablet Orally every 12 hrs; Note:Source Status: Taking; Provider: Elham Chan ( )take 0.5 tablet by mouth every twelve hoursFlecainide Acetate 100 MG 0.5 tablet Orally every 12 hrs Activegabapentin 300 mg oral capsule (20 sources)Anti-epileptic AgentStart: 28-55-0567Uisdyzhwuj 300 mg capsule Active MG PO October 18, 2023 12:00am FreeTextSi qam and 1 qpm and 2 qhs Orally 4 times a day; Note: Source Status: Taking; Provider: Elham Chan ( ) Complies with drug therapyStart: 57-73-7869Ssjohjpwsi Active MG PO October 18, 2023 12:00am FreeTextSi qam and 1 qpm and 2 qhs Orally 4 times a day; Note: Source Status: Taking; Provider: Elham Chan ( ) Start: 94-05-0183lhtdgypfre Refills(s) 0, Neuropathy Start Date: 07/29/22 Status: OrderedStart: 48-85-0110xafnxhawst Refills(s) 0 Start Date: 07/29/22 Status: Orderedtake 1 capsule by mouth every twenty-four hoursGabapentin 100 MG 1 capsule Orally Once a day ActivehydroCHLOROthiazide 25 mg oral tablet (20 sources)Thiazide DiureticStart: 02-19-2024 End: 85-54-5335Zykhvqokcxzwwynyaja 25 mg tablet Active 0 .ROUTE .COMPLEX 90 February 27, 2025 1:51pm TAKE 1 TABLET DAILY Complies with drug therapyStart: 11-19-2018 End: 17-09-1215hala 1 tablet by mouth once dailyHydrochlorothiazide 25 mg tablet Discontinued 25 MG PO Daily October 18, 2023 12:00am February 19, 2024 11:43am FreeTextSig: TAKE 1 TABLET DAILY; Note: Source Status: Taking; Refills: 3; Qty: 90 Tablet; Provider: Elham Chan ( )Immodium A-D 2 mg Cap (2 sources)Start: 75-70-9703ipzp 1 tablet by mouth every four hours as needed Immodium A-D 2 mg Cap = 1 tab(s), Oral, q4hr, PRN for loose stools, Refills(s) 0 Start Date: 12/20/17 Status: Orderedlisinopril 40 mg oral tablet (20 sources)Angiotensin Converting Enzyme InhibitorStart: 09-07-2023 End: 18-12-6439Iycwpouqkw 40 mg tablet Active 0 .ROUTE .COMPLEX 90 June 12, 2024 12:05pm TAKE 1 TABLET DAILY Complies with drug therapyStart: 84-28-0772Nibyulmqil 40 mg tablet Active 0 .ROUTE .COMPLEX 90 September 07, 2023 3:57pm TAKE 1 TABLET DAILYStart: 50-18-9522Ddusjjkhjy Active 0 .ROUTE .COMPLEX 90 September 07, 2023 4:57pm TAKE 1 TABLET DAILYStart: 12-20-2017 End: 74-34-7635dkzw 1 tablet by mouth once dailyLisinopril 40 mg tablet Discontinued 40 MG PO Daily September 07, 2023 1:00am September 07, 2023 4 :57pmloperamide hydrochloride 2 mg oral capsule (1 source)Opioid AgonistStart: 75-15-0143tcjh 1 tablet by mouth every four hours as neededImmodium A-D 2 mg Cap = 1 tab(s), Oral, q4hr, PRN for loose stools, Refills(s) 0 Start Date: 12/20/17 Status: Orderedmagnesium sulfate 225 MG / potassium chloride 188 MG / sodium sulfate 1479 MG Oral Tablet [Sutab] (1 source)Start: 28-81-4458nrtt 1 tablet by mouth onceSutab oral tablet See Instructions, 1 EA, Refill(s) 0, KP, Please follow instructions per packaging and physician's handout, [facility]/pharmacy #[id number], 183.8, cm, 07/29/22 14:15:00 EST, Height/Length Dosing, 145.3, kg, 07/29/22 14:15:00 EST, Weight Dosing Start Date: 07/29/22 Status: OrderedmethylPREDNISolone 4 mg oral tablet (2 sources)CorticosteroidStart: 42-04-6609xfsqbrNFXHBOIqnlxt 4 MG as directed Orally for 6 days Oct, Yuchsz18 hr metoprolol succinate 100 mg extended release oral tablet (20 sources)beta-Adrenergic BlockerStart: 11-19-2018 End: 66-49-4792ujru 1 tablet by mouth once dailymetoprolol (TOPROL-XL) 100 mg XL tablet Take 1 Tablet by mouth daily. 90 Tablet 3 09/27/2024 ActiveStart: 46-56-2624kmen 1 tablet by mouth once dailymetoprolol tartrate 100 mg Tab 100 mg = 1 tab(s), Oral, Daily, Refills(s) 0, High blood pressure Start Date: 12/20/17 Status: OrderedMultiple Vitamin (multivitamin) tablet (2 sources)take 1 tablet by mouth once dailyMultiple Vitamin (multivitamin) tablet Take 1 tablet by mouth Daily ActiveMultivitamin (Multiple Vitamins) tablet (8 sources)Start: 31-27-4182dtbz 1 tablet by mouth once dailyMultivitamin (Multiple Vitamins) tablet Active 1 TAB PO Daily October 18, 2023 12:00am Complies with drug therapyStart: 00-83-7041vvxb 1 tablet by mouth once daily Multivitamin (Multiple Vitamins) tablet Active 1 TAB PO Daily October 17, 2023 11:00pmStart: 59-40-1613qdxo 1 tablet by mouth once dailyMultivitamin (Multiple Vitamins) tablet Active 1 TAB PO Daily October 18, 2023 12:00amMultivitamins and Minerals (3 sources)Start: 94-29-9017Szucfktpmeciq and Minerals Oral, Daily, Refill(s) 0, Prophylaxis Start Date: 12/20/17 Status: OrderedOlopatadine 0.1 % drops (9 sources)Start: 13-71-4520pdux 1 drop(s) into the eye(s) twice daily Olopatadine 0.1 % drops Active 1 DROPS OPHTHALMIC Twice daily December 25, 2023 2:36pm FreeTextSig:INSTILL 1 DROP INTO AFFECTED EYE TWICE A DAY FOR 30 DAYS; Note: Source Status: Taking; Refills: 3; Qty: 5 Milliliter; Provider: Elham Chan ( )Start: 10-19-2023 End: 44-28-0935pdtp 1 drop(s) into the eye(s) twice dailyOlopatadine 0.1 % drops Discontinued 1 DROPS OPHTHALMIC Twice daily October 19, 2023 9:48am December 082023 2:36pm FreeTextSig: INSTILL 1 DROP INTO AFFECTED EYE TWICE A DAY FOR 30 DAYS; Note: Source Status: Taking; Refills: 3; Qty: 5 Milliliter; Provider: Elham Chan ( )Start: 10-18-2023 End: 04-08-5464jovf 1 drop(s) into the eye(s) twice dailyOlopatadine 0.1 % drops Discontinued DROPS OPHTHALMIC October 17, 2023 11:00pm October 19, 2023 9:52am FreeTextSig: INSTILL 1 DROP INTO AFFECTED EYE TWICE A DAY FOR 30 DAYS; Note: Source Status: Taking; Refills: 3; Qty: 5 Milliliter; Provider: Elham Chan ( )microencapsulated potassium chloride 20 meq extended release oral tablet (20 sources)Start: 10-19-2023 End: 69-89-2529Bpabeeobh Chloride (Klor-Con M20) 20 mEq tablet,ER particles/crystals Active 20 MEQ PO Twice daily October 19, 2023 12:00am Complies with drug therapyStart: 04-05-2023 End: 49-53-8344Yejffgbdu Chloride (Klor-Con M20) 20 mEq tablet,ER particles/crystals Active 20 MEQ PO Twice daily October 19, 2023 12:00amStart: 09-03-2020 End: 52-96-7488Ncii-Con M20 20 MEQ controlled release tablet Indications: PAF (paroxysmal atrial fibrillation) (HCC) , Anticoagulated , Preop cardiovascular exam , JAVED on CPAP , Obesity, unspecified classification,unspecified obesity type, unspecified whether serious comorbidity present TAKE 1 TABLET TWICE A DAY 180 Tablet 3 03/01/2022 ActiveStart: 67-76-9127Bnpx-Con 40 mEq, Oral, BID, Refills(s) 0, Prophylaxis [...] Seed (Sugar) (Metamucil (Sugar)) powder (8 sources)Start: 71-68-3084Ulybmayp Seed (Sugar) (Metamucil (Sugar)) powder Active 1 TBSP PO Daily October 18, 2023 12:00am Complies with drug therapyStart: 42-06-9807Rvnnffrm Seed (Sugar) (Metamucil (Sugar)) powder Active 1 TBSP PO Daily October 17, 2023 11:00pmStart: 11-15-6068Mnrfokze Seed (Sugar) (Metamucil (Sugar)) powder Active 1 TBSP PO Daily October 18, 2023 12:00amsildenafil 25 mg oral tablet (9 sources)Phosphodiesterase 5 InhibitorStart: 51-77-3113ftxtwjvysx citrate (VIAGRA) 25 MG tablet Take 25 mg by mouth. 01/24/2023 ActiveSodium Sulfate-Mag Sulfate-KCl (Sutab) 2143-567-383 MG TABS (7 sources)Start: 52-00-2822Ptoike Sulfate-Mag Sulfate-KCl (Sutab) 3007-530-803 MG TABS Take by mouth. 07/29/2022 ActiveStart: 34-71-5234Tuvave Sulfate-Mag Sulfate-KCl (Sutab) 1435-774-485 MG TABS Take by mouth. 0 07/29/2022 ActiveSuper B Complex (6 sources)Start: 98-81-7168vvcm 1 tablet by mouth once dailySuper B Complex 1 tab(s), Oral, Daily, Refill(s) 0, Prophylaxis Start Date: 04/02/20 Status: OrderedtiZANidine 4 mg oral tablet (10 sources)Central alpha-2 Adrenergic AgonistStart: 15-49-8608olke 1 tablet by mouth once daily at [...] mg oral tablet (20 sources)Vitamin K AntagonistStart: 41-34-3762Lcnwvwin Active MG PO As Directed October 18, 2023 12:00am FreeTextSig: as directed orally; Note: Source Status: Taking; Provider: Elham Chan ( )Start: 07-29-2022 warfarin Refills(s) 0, Blood Thinner Start Date: 07/29/22 Status: OrderedStart: 31-99-0424yditcpac Refills(s) 0 Start Date: 07/29/22 Status: OrderedStart: 09-03-2020 End: 33-72-4271Ceignbzk 5 mg tablet Active MG PO As Directed October 18, 2023 12:00am FreeTextSig: as directed orally; Note: Source Status: Taking; Provider: Elham Chan ( ) Complies with drug therapy Completed/Discontinued Medications MedicationDrug Class(es)DatesSig (Normalized)Sig (Original)acetaminophen 325 mg / HYDROcodone bitartrate 5 mg oral tablet (11 sources)Opioid Agonist End: 23-38-4093xptgdahirwz-acetaminophen (NORCO) 5-325 MG per tablet Indications: Preop cardiovascular exam , PAF (paroxysmal atrial fibrillation) (HCC) , Anticoagulated , JAVED on CPAP , Obesity, unspecified classification, unspecified obesity type, unspecified whether serious comorbidity present hydrocodone 5 mg-acetaminophen 325 mg tablet 0 03/29/2023 Ycsepkkddjtluwb404386 200 actuat albuterol 0.09 mg/actuat metered dose inhaler (7 sources)beta2-Adrenergic AgonistStart: 05-29-2024 End: 35-70-6740Byacjtnjr Sulfate 90 mcg/actuation HFA aerosol inhaler Discontinued 1 INH INHALATION Every 6 hours May 29, 2024 1:00am February 12, 2025 9:29amStart: 05-08-2024 End: 92-12-0054Kdltzzhgj Sulfate 90 mcg/actuation HFA aerosol inhaler Discontinued 2 INH INHALATION EVERY 4-6 HOURS as needed for shortness of breath or wheezing 6.7 0 May 08, 2024 12:00am May 260:20amAlbuterol Sulfate 90 mcg/actuation HFA aerosol inhaler (3 sources)Start: 05-08-2024 End: 99-93-7891Rkhhrxcjd Sulfate 90 mcg/actuation HFA aerosol inhaler Discontinued 2 INH INHALATION EVERY 4-6 HOURS as needed for shortness of breath or wheezing 6.7 May 07, 2024 11:00pm May 26, 2024 9:20amamLODIPine 10 mg oral tablet (20 sources)Dihydropyridine Calcium Channel BlockerStart: 10-18-2023 End: 72-82-6750cnpe 1 tablet by mouth once dailyAmlodipine 10 mg tablet Discontinued 10 MG PO Daily October 18, 2023 12:00am October 19, 2023 10:34am AMLODIPINE BESYLATE ORAL amLODIPine Besylate Not-Taking ActiveamLODIPine Besylate Not-Taking/PRNAMLODIPINE BESYLATE ORAL amLODIPine Besylate Not-Taking 0 ActiveamLODIPine Besylate Not-Takingamoxicillin 875 mg oral tablet (6 sources)Penicillin-class AntibacterialStart: 79-81-6501gpmv 1 tablet by mouth every twelve hoursAmoxicillin 875 MG 1 tablet Orally Twice a day for 10 day(s) Mar, Not-Taking/PRNascorbic acid 500 mg oral capsule (20 sources)Vitamin CStart: 10-18-2023 End: 82-18-0582Amsxosqe Acid (Vitamin C) 500 mg capsule Discontinued MG PO October 18, 2023 12:00am October 19, 2023 10:33amStart: 10-18-2023 End: 36-78-1173Mnulerzr Acid (Vitamin C) Discontinued MG PO October 18, 2023 12:00am October 19, 2023 10:33amVitamin C Not-Taking/PRN End: 80-93-2527qcwm 1 tablet by mouth once dailyAscorbic Acid 1000 MG TABS Vitamin C 1,000 mg tablet Take 1 tablet every day by oral route. 0 03/29/2023 DiscontinuedVitamin C Lmv-PxeegiHbwsk-81 (6 sources)Aspir-81 Not-Taking/PRNAspir-81 Not-Takingaspirin 81 mg delayed release oral tablet (8 sources)Platelet Aggregation Inhibitor, Nonsteroidal Anti-inflammatory Drug Start: 10-18-2023 End: 46-63-8196mhmw 1 tablet by mouth once dailyAspirin 81 mg tablet,delayed release (DR/EC) Discontinued 81 MG PO Daily October 18, 2023 12:00am October 19, 2023 10:33ambaclofen 10 mg oral tablet (20 sources)gamma-Aminobutyric Acid-ergic AgonistStart: 11-13-2018 End: 70-43-3330ytwo 1 tablet by mouth at bedtimebaclofen (LIORESAL) [...] oral capsule (12 sources)Non-narcotic AntitussiveStart: 10-19-2023 End: 96-88-2884Grxwpkntcdi 200 mg capsule Discontinued 200 MG PO 2-3 TIMES PER DAY as needed for cough 30 May 29, 2024 1:00am February 12, 2025 9:29am carvedilol 3.125 mg oral tablet (14 sources)alpha-Adrenergic Yadiel, beta-Adrenergic BlockerStart: 10-18-2023 End: 82-77-7284srhe 1 tablet by mouth twice daily at mealtimeCarvedilol 3.125 mg tablet Discontinued 3.125 MG PO Twice daily October 18, 2023 12:00am October 19, 2023 10:34am must administer with a meal/foodCarvedilol Not-Taking/PRN Carvedilol Not-Takingcefdinir 300 mg oral capsule (12 sources)Cephalosporin AntibacterialStart: 10-19-2023 End: 71-61-6306wmvm 1 capsule by mouth twice dailyCefdinir 300 mg capsule Discontinued 300 MG PO Twice daily 14 May 29, 2024 11:13am February 12, 2025 9:30amcholecalciferol 0.05 mg oral capsule (11 sources)Vitamin D End: 49-60-6025ymvg 1 capsule by mouth once dailyCholecalciferol 50 MCG (2000 UT) CAPS Vitamin D3 50 mcg (2,000 unit) capsule Take 1 capsule every day by oral route. 0 03/29/2023 Discontinueddocosahexaenoic acid 120 mg / eicosapentaenoic acid 180 mg oral capsule (8 sources)Start: 10-18-2023 End: 32-25-1012ukdi 1 capsule by mouth once dailyDocosahexaenoic Acid-Epa (Fish Oil) 120-180 mg capsule Discontinued 1 CAP PO Daily October 172:00am October 19, 2023 10:35amdoxycycline hyclate 100 mg oral capsule (6 sources)Tetracycline-class DrugStart: 05-08-2024 End: 11-46-9979akuq 1 capsule by mouth twice dailyDoxycycline Hyclate 100 mg capsule Discontinued 100 MG PO Twice daily 14 7 0 May 08, 2024 12:00am May 26, 2024 10:21amFish Oils (6 sources)Fish Oil Not-Taking/PRNFish Oil Not-Takingloratadine 10 mg oral tablet (20 sources)Start: 12-20-2017 End: 99-13-2997uuyt 1 tablet by mouth once dailyLoratadine 10 mg tablet Discontinued 10 MG PO Daily October 18, 2023 12:00am February 12, 2025 9:32am FreeTextSi tablet once a day; Note: Source Status: Taking; Provider: Elham Chan ( )Loratadine Not-TakingMulti Vitamin Mens (6 sources)Multi Vitamin Mens Not-Taking/PRNMulti Vitamin Mens Not-Taking olopatadine 1 mg/ml ophthalmic solution (20 sources)Histamine-1 Receptor InhibitorStart: 79-53-8697hiqg 1 drop(s) into the eye(s) twice dailyOlopatadine Active 1 DROPS OPHTHALMIC Twice daily December 25, 2023 3:36pm FreeTextSig: INSTILL 1 DROP INTO AFFECTED EYE TWICE A DAY FOR 30 DAYS; Note: Source Status: Taking; Refills: 3; Qty: 5 Milliliter; Provider: Elham Chan ( )Start: 10-19-2023 End: 38-88-1105trou 1 drop(s) into the eye(s) twice dailyOlopatadine Discontinued 1 DROPS OPHTHALMIC Twice daily October 19, 2023 10:48am December 25, 2023 3:36pm FreeTextSig: INSTILL 1 DROP INTO AFFECTED EYE TWICE A DAY FOR 30 DAYS; Note: Source Status: Taking; Refills: 3; Qty: 5 Milliliter; Provider: Elham Chan ( )Start: 69-53-6588sbrj 1 drop(s) into the eye(s) twice dailyOlopatadine Active 1 DROPS OPHTHALMIC Twice daily October 19, 2023 10:48am FreeTextSig: INSTILL 1DROP INTO AFFECTED EYE TWICE A DAY FOR 30 DAYS; Note: Source Status: Taking; Refills: 3; Qty: 5 Milliliter; Provider: Elham Chan ( )Start: 10-18-2023 End: 26-02-6522srvb 1 drop(s) into the eye(s) twice dailyOlopatadine 0.1 % drops Discontinued 1 DROPS OPHTHALMIC Twice daily 5 2 October 19, 2023 10:48am December 25, 2023 3:36pm FreeTextSig: INSTILL 1 DROP INTO AFFECTED EYE TWICE A DAY FOR 30 DAYS; Note: Source Status: Taking; Refills: 3; Qty: 5 Milliliter; Provider: Elham Chan ( )Start: 10-18-2023 End: 14-72-5572cubz 1 drop(s) into the eye(s) twice dailyOlopatadine Discontinued DROPS OPHTHALMIC October 18, 2023 12:00am October 19, 2023 10:52am FreeTextSig: INSTILL 1 DROP INTO AFFECTED EYE TWICE A DAY FOR 30 DAYS; Note: Source Status: Taking; Refills: 3; Qty: 5 Milliliter; Provider: Elham Chan ( )Start: 91-43-2211ypvgcpfuyli 0.7% ophthalmic solution Refill(s) 0 Start Date: [...] oral tablet (11 sources)Serotonin-3 Receptor Antagonist End: 77-90-6765eaqcwvqtpnb (ZOFRAN-ODT) 4 MG disintegrating tablet Indications: Preop cardiovascular exam , PAF (paroxysmal atrial fibrillation) (HCC) , Anticoagulated , JAVED on CPAP , Obesity, unspecified classification, unspecified obesity type, unspecified whether serious comorbidity present ondansetron 4 mg disintegrating tablet 0 03/29/2023 DiscontinuedpredniSONE 20 mg oral tablet (20 sources)Start: 05-26-2024 End: 36-38-9463Yllfwlmvgi 20 mg tablet Discontinued 0 PO Daily 11 9 May 26, 2024 1:00am February 12, 2025 9:31am Take 2 tabs x 3 days, take 1 tab x 3 days, take 1/2 tab x 3 days orally daily;Start: 05-08-2024 End: 25-00-3226kksd 1 tablet by mouth once dailyPrednisone 50 mg tablet Discontinued 50 MG PO Daily 5 5 0 May 08, 2024 12:00am May 10:20am End: 23-88-3349mmhkcfLHRY (DELTASONE) 20 MG tablet Indications: Preop cardiovascular exam , PAF (paroxysmal atrialfibrillation) (HCC) , Anticoagulated , JAVED on CPAP , Obesity, unspecified classification, unspecified obesity type, unspecified whether serious comorbidity present prednisone 20 mg tablet 0 03/29/2023 DiscontinuedPsyllium (6 sources)Metamucil 48.57 % Orally Not-Taking/PRNMetamucil 48.57 % Orally Not-Takingtamsulosin hydrochloride 0.4 mg oral capsule (15 sources)alpha-Adrenergic Yadiel End: 37-35-9823cijt 1 capsule by mouth once dailytamsulosin (FLOMAX) [...] colon; Translations: [Malignant neoplasm of colon, unspecified]Onset: 090539-04-6486NpcvywaNbwcbya dysrhythmias (20 sources)Paroxysmal atrial fibrillation; Translations: [Paroxysmal atrial fibrillation]Onset: 12-28-2018 Resolved: 10-28-2673GtdzypdIazwumn obstructive pulmonary disease and bronchiectasis (12 sources)Bronchitis, not specified as acute or chronic; Translations: [Bronchitis]EpisodicComplications of surgical procedures or medical care (7 sources)Short bowel syndrome; Translations: [Postsurgical malabsorption, not elsewhere classified]ChronicDisorders of lipid metabolism (3 sources)Hyperlipidemia; Translations: [Hyperlipidemia, unspecified]Chronic Essential hypertension (20 sources)Hypertensive disorder; Translations: [Essential (primary) hypertension]Onset: [id number] and screening for infectious disease (3 sources)Vaccination given; Translations: [Encounter for immunization]Episodic Mycoses (9 sources)Candidiasis of skin; Translations: [Candidiasis of skin and nail] EpisodicOsteoarthritis (20 sources)Arthritis; Translations: [Unspecified osteoarthritis, unspecified site]Onset: 722270-82-2187IpyusppErlyn aftercare (20 sources)Drug therapy finding; Translations: [longterm (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]Onset: 34-64-7188KzrvqvkxSqymy aftercare (1 source)terminologist (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; 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]Onset: 39-23-4935XwugbkefCeuzq aftercare (5 sources)Encounter for therapeutic drug level monitoring; Translations: [ENC THERAPEUTC DRUG LEVL MONITORING]Onset: 68-89-7012TybylguvIbdsl and unspecified benign neoplasm (6 sources)Tubular adenoma of colon; Translations: [Tubular adenoma of colon] EpisodicOther and unspecified benign neoplasm (1 source)Polyp of colon; Translations: [Polyp of colon]Onset: 10-06-2022 EpisodicOther circulatory disease (3 sources)Elevated blood-pressure reading without diagnosis of hypertension; Translations: [Elevated blood-pressure reading, without diagnosis of hypertension]EpisodicOther congenital anomalies (3 sources)Congenital deformity of spine; 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]Onset: 50-36-2586YykvopfUkhal connective tissue disease (6 sources)Peripheral neuralgia; Translations: [Neuralgia and neuritis, unspecified]EpisodicOther connective tissue disease (5 sources)Other muscle spasm; Translations: [OTHER MUSCLE SPASM]Onset: 35-12-5021XluwzuokZzcla connective tissue disease (3 sources)Neuralgia; Translations: [Neuralgia and neuritis, unspecified] EpisodicOther diseases of kidney and ureters (1 source)Urinary tract obstruction; Translations: [Other obstructive and reflux uropathy]Onset: 04-90-8677UruspokkYtsbu disorders of stomach and duodenum (1 source)Other diseases of stomach and duodenum; Translations: [Other diseases of stomach and duodenum]Onset: 82-74-1942RyvgkaypBicod lower respiratory disease (3 sources)Cough; Translations: [Cough]33-93-1656SjspgkyePzyqi male genital disorders (10 sources)Male erectile dysfunction, unspecified; Translations: [Erectile dysfunction]Onset: 94-80-9535BzhnghaGbzcr male genital disorders (6 sources)Nrzzmueno78-12-0013GruzfcoWcnum nervous system disorders (1 source)Other chronic pain; Translations: [OTHER CHRONIC PAIN]Onset: 45-14-6516OpcmljiFxwny non-traumatic joint disorders (3 sources)Pain in right hip joint; Translations: [Pain in right hip]Episodic Other non-traumatic joint disorders (3 sources)Arthralgia of the lower leg; Translations: [Pain in right knee] EpisodicOther non-traumatic joint disorders (2 sources)Hip pain; Translations: [Pain in right hip]19-78-9559EeqzahoyPztac nutritional; endocrine; and metabolic disorders (7 sources)Obesity; Translations: [Obesity, unspecified]ChronicOther nutritional; endocrine; and metabolic disorders (6 sources)Body mass index 40+ - severely obese; Translations: [Body mass index (BMI) 40.0-44.9, adult]Onset: 09-24-4928QuvatcoUtwegzghq; thrombophlebitis and thromboembolism (1 source)Chronic embolism and thrombosis of right femoral vein; Translations: [CHRON EMBO THROMB RT FEMORAL VEIN]Onset: 69-67-4770KuuzoamVtjodhbsa heart disease (9 sources)Pulmonary hypertension; Translations: [Pulmonary hypertension, unspecified]ChronicPulmonary heart disease (14 sources)Pulmonary embolism; Translations: [Other pulmonary embolism without acute cor pulmonale]Onset: 18-60-2104CuqvfqbcYhktwvmn codes; unclassified (13 sources)Sleep apnea; Translations: [Sleep apnea, unspecified]Onset: 227290-20-9450LcvyexjNvraltjk codes; unclassified (20 sources)Obstructive sleep apnea syndrome; Translations: [Obstructive sleep apnea (adult) (pediatric)]ChronicResidual codes; unclassified (1 source)Obstructive sleep apnea (adult) (pediatric)ChronicResidual codes; unclassified (1 source)Family history of malignant neoplasm of digestive organ; Translations: [Family history of malignantneoplasm of digestive organs]Onset: 07-29-2022 EpisodicSpondylosis; intervertebral disc disorders; other back problems (15 sources)Spondylosis without myelopathy or radiculopathy, cervical region; Translations: [Sacroiliitis, not elsewhere classified]Onset: 03-91-3086Iqpzenn Spondylosis; intervertebral disc disorders; other back problems (16 sources)Radiculopathy, lumbar region; Translations: [Spinal stenosis, lumbar region without neurogenic claudication]Onset: 25-13-145515956389-06-6233Tixkpzah Unclassified (6 sources)Asymptomatic microscopic bzujrqgin09-18-7959Srromzsalzie (6 sources)Patient encounter buiybh63-68-4285Jcnegkssykji (5 sources)History of malignant neoplasm of colon and/or -81-5673 Unclassified (4 sources)LOW BACK PAIN, UNSPECIFIED; Translations: [LOW BACK PAIN, UNSPECIFIED]Onset: 40-38-1231Uaqmkntjjkhh (1 source)Cough, unspecified; Translations: [Cough, unspecified]Onset: 81-82-4741Iidftlbxcqfn (2 sources)M16.0 - Bilateral primary osteoarthritis of hip,M17.0 - Bilateral primary osteoarthritis of knee,M54.50 - Low back pain, unspecified Past or Other Problems Problem ClassificationProblemDateDocumented DateEpisodic/ChronicCancer of rectum and anus (8 sources)History of malignant neoplasm of rectum; Translations: [Personal history of other malignant neoplasm of rectum, rectosigmoid junction, and anus] Onset: 66-77-9867TbuqbhcdHeowdkrawo and other anemia (3 sources)Pernicious anemia; Translations: [Vitamin B12 deficiency anemia due to intrinsic factor deficiency]Onset: 91-01-7251SruvueveKyfsxezcfnbxz symptoms and ill-defined conditions (20 sources)Blood in urine; Translations: [Jonathan hematuria]Onset: 05-27-2020 Resolved: 168124-30-0909AqvbvyjzXvuxauuwqph of prostate (20 sources)Benign prostatic hypertrophy with outflow obstruction; Translations: [Benign prostatic hyperplasia with lower urinary tract symptoms]Onset: 09-15-2017 Resolved: 96-51-9666FelylnzOwgwxbipsbvf; infection of eye (except that caused by tuberculosis or sexually transmitteddisease) (3 sources)External hordeolum; Translations: [Hordeolum externum unspecified eye, unspecified eyelid]Onset: 79-65-0385YvyzkirmDvglrvcaqvrm conditions of male genital organs (3 sources)Acute prostatitis; Translations: [Acute prostatitis]Onset: 05-30-2018 EpisodicOther gastrointestinal disorders (3 sources)Diarrhea; Translations: [Diarrhea, unspecified]Onset: 03-03-2016 EpisodicOther lower respiratory disease (3 sources)Dyspnea; Translations: [Dyspnea, unspecified]Onset: 04-18-2016 EpisodicOther nervous system disorders (3 sources)Altered sensation of skin; Translations: [Disturbance of skin sensation]Onset: 45-63-4743EtelmzqcMsrbb non-traumatic joint disorders (3 sources)Arthralgia of the pelvic region and thigh; Translations: [Pain in joint, pelvic region and thigh]Onset: 06-03-5848QvzbzmzmVpilx screening for suspected conditions (not mental disorders or infectious disease) (20 sources)Raised prostate specific antigen; Translations: [Elevated prostate specific antigen [PSA]]Onset: 93-45-1400DwckvevoVkbza upper respiratory infections (3 sources)Acute sinusitis; Translations: [Acute sinusitis, unspecified]Onset: 12-49-4707ClfurquxRvcs-; endo-; and myocarditis; cardiomyopathy (except that caused by tuberculosis or sexually transmitted disease) (3 sources)Disorder of pericardium; Translations: [Pericardial effusion (noninflammatory)]Onset: 92-72-8195TcivklrjYzilwndhu; thrombophlebitis and thromboembolism (9 sources)Deep venous thrombosis of lower extremity; Translations: [Acute embolism and thrombosis of unspecified deep veins of right lower extremity] Onset: 450361-36-3310PpciimslXbyrqmtr codes; unclassified (18 sources)Family history of cancer of colon; Translations: [Family hx of colon cancer]Onset: 617682-19-2802CbgqeeimDogbmuwtdoqr (1 source)LOW BACK PAIN, UNSPECIFIED; Translations: [LOW BACK PAIN, UNSPECIFIED] Onset: 93-60-4457Tmbqgyhfdscf (3 sources)Vaccine product containing only acellular Bordetella pertussis and Clostridium tetani and Corynebacterium diphtheriae antigens (medicinal product); Translations: [Bpabzmjiuu-zkqmfnc-qxuajmtkm, combined [DTP] [DtaP]]Onset: 88-45-2997Ooywl infection (1 source)COVID-19 Results Test NameValueInterpretationReference RangeFacilityXR Hip - right 3 Viewson 88-32-7257Ehrdhxk Result: Imaging Result: AP and lateral of [...] Impression moderate degenerative joint disease, right hip [facility] [facility] [facility] [employer] HealthcareRadiology Study observation (narrative)[facility] HealthcareINR in Platelet poor plasma by Coagulation assayOrdered By: Blessing Granda on 55-09-3778ZBX Coag (PPP) [Relative time]2.57 {INR}[facility] HospitalComment on above:DESIRED INR:2.0-3.0 CONDITIONS NOT LISTED BELOW2.5-3.5 FOR PROSTHETIC HEART VALVE REPLACEMENT2.5-3.5 RECURRENT THROMBOSISProthrombin time (PT)Ordered By: Blessing Granda on 44-31-9756WY Coag (PPP) [Time]24.8 sHigh9.0-11.6FThe Surgical Hospital at SouthwoodsINR in Platelet poor plasma by Coagulation assayOrdered By: Blessing Granda on 95-45-5585NZF Coag (PPP) [Relative time]2.50 {INR}[facility] HospitalComment on above:DESIRED INR:2.0-3.0 CONDITIONS NOT LISTED BELOW2.5-3.5 FOR PROSTHETIC HEART VALVE REPLACEMENT2.5-3.5 RECURRENT THROMBOSISProthrombin time (PT)Ordered By: Blessing Granda on 76-08-2553DM Coag (PPP) [Time]24.2 s High9.0-11.6FThe Surgical Hospital at SouthwoodsINR in Platelet poor plasma by Coagulation assayon 86-77-6498DII Coag (PPP) [Relative time]2.24 {INR}[facility] HospitalComment on above:DESIRED INR:2.0-3.0 CONDITIONS NOT LISTED BELOW2.5-3.5 FOR PROSTHETIC HEART VALVE REPLACEMENT2.5-3.5 RECURRENT THROMBOSISProthrombin time (PT)on 01-83-6320MA Coag (PPP) [Time]21.9 sHigh 9.0-11.6FThe Surgical Hospital at SouthwoodsX-ray reportOrdered By: Lupis Bryan on 15-55-3745Woucl reportPROMEDICA DEFIANCE [place] [address] XRay Report Signed Patient: Evangelist Ybarra MR#: [id number] : 1955 Acct:[id number] Age/Sex: 68 / M ADM Date: 4 Loc: [facility] Room: Type: [facility] Attending Dr: Mariela Mosley APRN Copies [...] Bryan MD 05/26/24 102 Signed By: 05/26/24 [facility]3 [facility] Work Phone: xr chest 2V*on 22-97-7727XW chest 2V*[facility] [address] [place] [address] [place] [address] XRay Report Signed Patient: Evangelist Ybarra MR#: [id number] : 1955 Acct:[id number] Age/Sex: 68 / M ADM Date: 05/26/24 Loc: XDUCLY Room: Type: [facility] Attending Dr: Mariela Mosley APRN Copies [...] Lupis Bryan M.D.05/26/2024 10:23 AM Dictation Location: [facility] Transcribed By: LIV 05/26/24 1023 Dictated By: Lupis Bryan MD 05/26/24 1022 Signed By: 05/26/[address] [place] [address] Physician GroupInfluenza virus A and B and SARS-CoV-2 (COVID-19) RNA panel - Respiratory system specon 80-69-5715Emfhqrfnv virus A and B RNA and SARS-CoV-2 (COVID-19) N gene panel ANNIE+probe (Resp) Influenza virus A and B and SARS-CoV-2 (COVID-19) RNA panel - Respiratory system specPromedica Defiance Regional HospitalLaboratory - Microbiology and Antimicrobial susceptibilityon 68-22-3627KMQG-CoV-2 (COVID-19) RNA ANNIE+probe Ql (Unsp spec)NegativePromedica Defiance Regional HospitalNo Panel Informationon 83-22-9858MTR Influenza B (ANNIE)NegativePromedica Defiance Regional HospitalINR in Platelet poor plasma by Coagulation assayon 18-87-4218JDV Coag (PPP) [Relative time]2.42 {INR}[facility] HospitalComment on above:DESIRED INR:2.0-3.0 CONDITIONS NOT LISTED BELOW2.5-3.5 FOR PROSTHETIC HEART VALVE REPLACEMENT2.5-3.5 RECURRENT THROMBOSISINR Coag (PPP) [Relative time]INR in Platelet poor plasma by Coagulation assayPromedica Defiance Regional Hospital Comment on above:DESIRED INR:2.0-3.0 CONDITIONS NOT LISTED BELOW2.5-3.5 FOR PROSTHETIC HEART VALVE REPLACEMENT2.5-3.5 RECURRENT THROMBOSISProthrombin time (PT)on 41-82-9929FW Coag (PPP) [Time]23.5 sHigh9.0-11.6FThe Surgical Hospital at SouthwoodsPT Coag (PPP) [Time]Prothrombin time (PT)High9.0-11.6FThe Surgical Hospital at SouthwoodsProgress Noteson 50-03-6685Whzfvplvvhcxm Authentication Interface Message TextEP video visit to [...] his last visit, he had [facility]iscan at [facility] on 09/2016 that showe no reversible [...] in 1 year Prior to your visit, StarSightingsDynamight[employer] shared information with you about the risks [...] 180 Tablet 3 Sodium Sulfate-Mag Sulfate-KCl (Sutab) 9696-725-783 MG TABS Take by mouth. AMLODIPINE BESYLATE [...] declined Stress: No Stress Concern Present (03/27/2023) [employer] [place] [place] [employer] - Occupational Stress Questionnaire Feeling of Stress : Not at all Social Connections: Moderately Integrated (03/27/2023) Social Connection and Isolation Panel [NHANES] Frequency of Communicatio (more content not included)...NormalThe [facility] SystemAmbulatory Visit Summaryon 05-83-9457Tmvnpatexk Visit SummaryAmbulatory Visit Summary EVANGELIST YBARRA :1955 [...] needed Where: [address] [place] [address] [phone] Medications What How Much When Instructions Unchanged [...] ? Obesity. ? Ne (more content not included)...[facility] HospitalProvider Letteron 17-39-6633Zvoonezu LetterProvider Letter DONALD LIZARRAGA, [facility] [place] [address] Re: EVANGELIST YBARRA Date of : [address] ELHAM JACKSON, EVANGELIST SWANSON was evaluated at [facility] 01/30/2024 10:00:00 As this patient has been stable, they will be released back to your care. We request that you continue to check PSA annually for prostate cancer screening Should the patient develop new symptoms, worsening condition, or abnormal imaging/labs in the future, do not hesitate to refer them back. Thanks! Provider Signature: Cathie Hernandez PA-C Physician Music Librarian [facility] [address] [place] [address] NoOhioHealth Grove City Methodist HospitalUrology Office/Clinic Note on 05-19-0680Gvggyoo Office/Clinic NoteUrology Office/Clinic Note Chief Complaint 1 year follow up with PSA HPI Staff 68 year old patient presents today for a 1 year follow up with PSA. [place] [facility] [place], [facility], or [facility]. DX: BPH, ED & Elevated PSA TURP [...] prn at prior OV pending clearance from vp client services but pt never filled script. Not a [...] GARCIA, CATHIE Ruano, URL Only if needed [address] [place] [address] [phone] Additional Instructions: Patient Education Erectile Dysfunction Documentation [...] History Alcohol - De (more content not included)...[facility] Comment on above:Result Comment: Electronically Signed By: CATHIE HERNANDEZ PA-C\.br\Date and Time Signed: 01/22/2414:33 EDT\.br\Electronically Co-Signed By: Krystyna Caceres\.br\Date and Time Co-Signed: 01/23/24 14:31 EDTURINALYSISOrdered By: Sweetie Ma on 99-83-2509Mumjpykw LM Ql (Urine sed)Trace /HPFNormal Trace/HPFINTE[facility] [place] [facility] Auto SSBilirubin Ql (U)Negative (01/24/23 10:19 AM)NormalNegativeINTEGRIS BAP[facility] [place] [facility] Auto SSClarity (U)Clear (01/24/23 10:19 AM)NormalClearFMERCY [facility] [place] [facility] Auto SSColor (U)Yellow (01/24/23 10:19 AM)NormalYellowINTEGRIS BAPTIST [facility] [place] Auto SSEpithelial cells.squamous LM.HPF (Urine sed) [#/Area]0-2 /HPFNormal0-2/HPFINTEGRIS [facility] [place] Auto SSGlucose Test strip (U) [Mass/Vol]Negative (01/24/23 10:19 AM)NormalNegativeINTEGRIS BAP[facility] [place] [facility] Auto SSHemoglobin Ql (U)Negative (01/24/23 10:19 AM)NormalNegativeINTEGRIS [facility] [place] [facility] Auto SSKetones (U) [Mass/Vol]Negative (01/24/23 10:19 AM)NormalNegativeINTEGRIS [facility] [place] [facility] Auto SSLithium.plasma/[place].RBC (Bld) [Mass ratio]0-3 /HPFNormal0-3/HPFINTEGRIS BAP[facility] [place] [facility] Auto SSNitrite Ql (U)Negative (01/24/23 10:19 AM)NormalNegativeINTEGRIS BAP[facility] [place] [facility] Auto SSpH (U)5.0 *NA* (01/24/23 10:19 AM)Invalid Interpretation Code5.0 - 9.0[facility] [place] [facility] Auto SSProtein (U) [Mass/Vol]Negative (01/24/23 10:19 AM)NormalNegativeINTEGRIS [facility]AP[facility] [place] [facility] Auto SSSpecific gravity (U) [Rel density]>=1.030 *NA* (01/24/23 10:19 AM)Invalid Interpretation Code1.005 - 1.030[facility] [place] [facility] Auto SSUA Spec DescRandom Urine (01/24/23 10:19 AM)NormalINTEGRIS BAP[facility] [place] Auto SSUrobilinogen Qn (U)0.4964900 {Anne'U}/dLNormal0.0 - 1.0 EU/dLINTEGRIS BAPT[facility] [place] Auto SSWBC Auto Ql (U)Negative (01/24/23 10:19 AM)NormalNegativeINTEGRIS [facility] [place] [facility] Auto SSWBC LM.HPF (Urine sed) [#/Area]0- 5 /HPFNormal0-5/HPFINTEGRIS [facility] [place] Auto SSXR CSPINE MIN 4 VIEWSon 60-19-1661PQ CSPINE MIN 4 VIEWSEXAMINATION: XR CSPINE MIN [...] Electronically authenticated by: UNA SEARS Date: 2022-11-10 09:46[facility]Ad[facility] AUTO DIFFon 95-71-3205LNEV #0.0 103/ulNormal0.0-0.1[facility] Medical CenterComment on above:Performed By: #### CBC #### [facility] [address] [place] [address] Dr. Jason PearsonBasophils/100 WBC (Bld)0.7 %Normal0.2-2.0[facility] Comment on above:Performed By: #### CBC #### [facility] [address] [address] [address] Jason Lee #0.2 103/ulNormal0.0-0.7The [facility] HospitalComment on above: Performed By: #### CBC #### [facility] [address] [address] [address] Jason Taylorosinophils/100 WBC (Bld)3.7 %Normal0.9-7.0[facility] Comment on above:Performed By: #### CBC #### [facility] [address] [address] [address] Jason Taylorrythrocyte distribution width (RBC) [Ratio]14.0 %Ugbycc90.0-15.0 [facility] CenterComment on above:Performed By: #### CBC #### [facility] [address] [place] [address] Dr. Jason PearsonHematocrit (Bld) [Volume fraction]41.0 %Critically low42.0-54.0 [facility] CenterComment on above:Performed By: #### CBC #### [facility] [address] [place] [address] Dr. Jason PearsonHemoglobin (Bld) [Mass/Vol]13.8 g/dLCritically low14.0-18.0The [facility] HospitalComment on above:Performed By: #### CBC #### [facility] [address] [place] [address] Dr. Jason Little #0.01 10e3/ulNormal0.00-0.03The [facility] HospitalComment on above:Performed By: #### CBC #### [facility] [address] [place] [address] Dr. Jason Little %0.2 %Normal0.0-0.5The [facility] HospitalComment on above: Performed By: #### CBC #### [facility] [address] [place] [address] Dr. Jason Vazquez #1.3 103/ulNormal1.2-3.8The [facility] HospitalComment on above:Performed By: #### CBC #### [facility] [address] [place] [address] Dr. Jason Laihocytes/100 WBC (Bld)22.3 %Btwzmq25.5-60.0The [facility] HospitalComment on above:Performed By: #### CBC #### [facility] [address] [place] [address] Dr. Jason MalikUAL DIFF REQNONormalThe [facility] HospitalComment on above: Performed By: #### CBC #### [facility] [address] [place] [address] Dr. Jason Palma (RBC) [Entitic mass]32.6 izYcrzns26.9-34.0The [facility] HospitalComment on above:Performed By: #### CBC #### [facility] [address] [place] [address] Dr. Jason Palma (RBC) [Mass/Vol]33.7 g/vJHdmnrm33.9-35.2The [facility] HospitalComment on above:Performed By: #### CBC #### [facility] [address] [place] [address] Dr. Jason Palma (RBC) [Entitic vol]96.9 fLCritically high80.0-94.0The [facility] HospitalComment on above:Performed By: #### CBC #### [facility] [address] [place] [address] Dr. Jason Cook #0.6 103/ulNormal0.3-0.8The [facility] HospitalComment on above:Performed By: #### CBC #### [facility] [address] [place] [address] Dr. Jason Coronaocytes/100 WBC (Bld)10.5 %Normal1.7-12.0The [facility] Comment on above:Performed By: #### CBC #### [facility] [address] [place] [address] Dr. Jason Pearson #3.7 103/ulNormal1.4-6.5The [facility] HospitalComment on above:Performed By: #### CBC #### [facility] [address] [place] [address] Dr. Jason Henriquezutrophils/100 WBC (Bld)62.6 %Jtxaaj66.0-75.0The [facility] HospitalComment on above:Performed By: #### CBC #### [facility] [address] [place] [address] Dr. Jason Bonds mean volume (Bld) [Entitic vol]9.9 fLNormal9.5-13.5The [facility] HospitalComment on above:Performed By: #### CBC #### [facility] [address] [place] [address] Dr. Jason MontañoT181 103/xsEdgcxu027-696Ofm [facility] HospitalComment on above: Performed By: #### CBC #### [facility] [address] [place] [address] Dr. Jason PearsonRBC4.23 106/ulCritically low4.70-6.10The [facility] HospitalComment on above:Performed By: #### CBC #### [facility] [address] [place] [address] Dr. Yilan ChangWBC5.9 103/ulNormal4.0-11.0The [facility] HospitalComtrinity health [facility] on above: Performed By: #### CBC #### [facility] [address] [place], [place] [address] Dr. Jaosn GarciasID PROFILEon 53-85-9082ASGJ-HDL RATIO NORMSEE [facility] Butler HospitalComment on above:Result Comment: 3.3 - 4.4 LOW RISK 4.4 - 7.1 AVERAGE RISK 7.1 - 11.0 MODERATE RISK >11.0 HIGH RISKPerformed By: #### CMP, LIPID ####[facility] [address] [place], [place] [address]Dr. Yilan ChangCholesterol [Mass/Vol]163 mg/dLNormal<=200The [place] [facility] on above:Performed By: #### CMP, LIPID ####[facility] [address] [place], [place] [address]Vy. Deboralan ChangCholesterol in HDL [Mass/Vol]49 mg/dMIiaymh49-97Pwt [facility] HospitalComment on above: Performed By: #### CMP, LIPID ####[facility] [address] [place], [place] [address]Te. Yilan ChangCholesterol in LDL [Mass/Vol]74.6 mg/dL NormalCleveland Clinic [facility] on above:Performed By: #### CMP, LIPID ####[facility] [address] [place], [place] [address]Rq. Jason ChangCholesterol.total/Cholesterol in HDL [Mass ratio]3.3 {ratio}NormalThe [facility] HospitalComtrinity health [facility] on above:Performed By: #### CMP, LIPID ####[facility] [address] [place], [place] [address]Ch. Deboralan ChangHDL NORMAL> or = 60 mg/dl - LOW CARDIOVASCULAR RISK <40 mg/dl - HIGH CARDIOVASCULAR RISKGlenbeigh Hospitalment on above:Performed By: #### CMP, LIPID ####[facility] [address] [place], [place] [address]Ml. Deboralan ChangLDL CALC NORMALSEE BELOWCleveland Clinic Akron GeneralComment on above: Result Comment: <100 mg/dl OPTIMAL 100 - 129 mg/dl NEAR OR ABOVE OPTIMAL 130 - 159 mg/dl BORDERLINE HIGH 160 - 189 mg/dl HIGH >190 mg/dl VERY HIGHPerformed By: #### CMP, LIPID ####[facility] [address] [id number]. Jason PearsonTriglyceride [Mass/Vol]197 mg/dLCritically high<=150The [facility] HospitalComment on above:Performed By: #### CMP, LIPID ####[facility] [address] [address]Dr. Jason PearsonVLDL CALC39.4 mg/dLCleveland Clinic Akron GeneralComment on above:Performed By: #### CMP, LIPID ####[facility] [address] [address]Dr. Jason SungROALBUMIN, RAND URon 84-65-0255oOAX6.3 mg/LNormal<=30.0 The [facility] HospitalComment on above:Performed By: #### MALBR ####[facility] [address] [address]Dr. Jason PearsonPROF 14(COMP METB)on 19-83-6185Pmzzdoi [Mass/Vol]3.7 g/dLNormal3.4-5.0The [facility] HospitalComment on above:Performed By: #### CMP, LIPID #### [facility] [address] [place] [address] Dr. Jason PearsonAlbumin/Globulin [Mass ratio]1.0 {ratio}NormalThe [facility] HospitalComment on above:Performed By: #### CMP, LIPID #### [facility] [address] [address] [address] Jason Tilley [Catalytic activity/Vol]56 U/XJeeklh86-758Pob [facility] HospitalComment on above:Performed By: #### CMP, LIPID #### [facility] [address] [address] [address] Jason Mraia [Catalytic activity/Vol]43 U/ABnuvdz84-50Txr [facility] HospitalComment on above:Performed By: #### CMP, LIPID #### [facility] [address] [address] [address] Jason Martinson gap [Moles/Vol]11.2 mmol/LNormalThe [facility] Comment on above:Performed By: #### CMP, LIPID #### [facility] [address] [address] [address] Jason PearsonAST [Catalytic activity/Vol]24 U/WZoobjw65-01Res [facility] HospitalComment on above:Performed By: #### CMP, LIPID #### [facility] [address] [address] [address] Jason PearsonBilirubin [Mass/Vol]0.9 mg/dLNormal0.2-1.0[facility] Comment on above:Performed By: #### CMP, LIPID #### [facility] [address] [address] [address] Jason PearsonCalcium [Mass/Vol]9.6 mg/dLNormal8.5-10.1[facility] Comment on above:Performed By: #### CMP, LIPID #### [facility] [address] [place] [address] Dr. Jason PearsonChloride [Moles/Vol]106 mmol/BNtagmy52-676MqpMain Campus Medical Center Comment on above:Performed By: #### CMP, LIPID #### [facility] [address] [address] [address] Jason PearsonCO2 [Moles/Vol]30.1 mmol/IWijvax35.0-32.0The [facility] Comment on above:Performed By: #### CMP, LIPID #### [facility] [address] [place] [address] Dr. Jason PearsonCreatinine [Mass/Vol]1.00 mg/dLNormal0.70-1.30The [facility] HospitalComment on above:Performed By: #### CMP, LIPID #### [facility] [address] [address] [address] Jason TaylorGFR-AF ARMENIAN>60Normal>=60The [facility] HospitalComment on above:Performed By: #### CMP, LIPID #### [facility] [address] [address] [address] Jason TaylorGFR-NON AF ARMENIAN>60Normal>=60The [facility] HospitalComment on above:Performed By: #### CMP, LIPID #### [facility] [address] [address] [address] Jason PearsonGlobulin (S) [Mass/Vol]3.6 g/dLNormalThe [facility] HospitalComment on above:Performed By: #### CMP, LIPID #### [facility] [address] [address] [address] Jason PearsonGlucose [Mass/Vol]110 mg/dLCritically rrrq36-450Qhc [facility] HospitalComment on above:Performed By: #### CMP, LIPID #### [facility] [address] [place] [address] Dr. Jason PearsonPotassium [Moles/Vol]4.3 mmol/LNormal3.5-5.1[facility] Comment on above:Performed By: #### CMP, LIPID #### [facility] [address] [place] [address] Dr. Jason PearsonProtein [Mass/Vol]7.3 g/dLNormal6.4-8.2The [facility] Comment on above:Performed By: #### CMP, LIPID #### [facility] [address] [place] [address] Dr. Jason PearsonSodium [Moles/Vol]143 mmol/FXinfxc065-912Bww [facility] Comment on above:Performed By: #### CMP, LIPID #### [facility] [address] [place] [address] Dr. Jason PearsonUrea nitrogen [Mass/Vol]15.0 mg/dLNormal7.0-18.0The [facility] HospitalComment on above:Performed By: #### CMP, LIPID #### [facility] [address] [place] [address] Dr. Yilan ChangUrea nitrogen/Creatinine [Mass ratio]15.0 mg/mgNoParkview Health Montpelier HospitalComment on above:Performed By: #### CMP, LIPID #### [facility] [address] [address] [address] Jason Barnes [id number] Coag (PPP) [Relative time]1.11 {INR} NormalMain Campus Medical CenterComment on above:Performed By: #### PT ####[facility] [address] [address] Jason Bourne GUIDELINESSEE [facility] HospitalComment on above:Result Comment: DESIRED INR: 2.0 - 3.0 CONDITIONS NOT LISTED BELOW 2.5 - 3.5 FOR PROSTHETIC HEART VALVE REPLACEMENT 2.5 - 3.5 RECURRENT THROMBOSISPerformed By: #### PT ####[facility] [address] [address]. Sierra Obrien Coag (PPP) [Time]11.9 sCritically high9.0-11.6ThSycamore Medical Center Comment on above:Performed By: #### PT ####[facility] [address] [place], [place] [address]Dr. Jason Barnes [id number] Coag (PPP) [Relative time]1.32 {INR}NormalMain Campus Medical CenterComment on above: Performed By: #### PT #### [facility] [address] [place] [address] Dr. Jason Bourne GUIDELINESSEE [facility] HospitalComment on above:Result Comment: DESIRED INR: 2.0 - 3.0 CONDITIONS NOT LISTED BELOW 2.5 - 3.5 FOR PROSTHETIC HEART VALVE REPLACEMENT 2.5 - 3.5 RECURRENT THROMBOSIS Performed By: #### PT #### [facility] [address] [place] [address] Dr. Jason Obrien Coag (PPP) [Time]14.0 sCritically high9.0-11.6ThSycamore Medical CenterComment on above:Performed By: #### PT #### [facility] [address] [place] [address] Dr. Jason PearsonPROTIMEon [id number] Coag (PPP) [Relative time]1.08 {INR} NormalThe [facility] HospitalComment on above:Performed By: #### PT #### [facility] [address] [place] [address] Dr. Jason PearsonINR GUIDELINESSEE BELOWCleveland Clinic [facility] GeneralComment on above:Result Comment: DESIRED INR: 2.0 - 3.0 CONDITIONS NOT LISTED BELOW 2.5 - 3.5 FOR PROSTHETIC HEART VALVE REPLACEMENT 2.5 - 3.5 RECURRENT THROMBOSIS Performed By: #### PT #### [facility] [address] [place] [address] Dr. Jason PearsonPT Coag (PPP) [Time]11.6 sNormal9.0-11.6The [facility] Comment on above:Performed By: #### PT #### [facility] [address] [place] [address] Dr. Jason PearsonXR HIP RT INJon 33-20-9316TN HIP RT INJEXAMINATION: XR HIP RT INJ [...] Electronically authenticated by: RUPERT MOON Date: 2022-02-07 11:09[facility] GeneralInitial Visit (Gastroenterology)on 60-20-9563Gdjvoua Visit (Gastroenterology)Chief ComplaintReferral from Dr. Bunch, for [...] from the patient and documented on the [facility] health history questionnaire. Pertinent positives and [...] Oral Tablet; TAKE 1 TABLET D AILY;Therapy: (Recorded:60Ueb1476) to Recorded Dispense: 0 Days ; #: Sufficient Tablet; Refill: 0; KP = N; Record; Last Updated By: Toyin Angeles; 03/28/2018 9:14:26 AM Flecainide Acetate 100 MG Oral Tablet; TAKE 1 TABLET EVERY 12 HOURS DAILY;Therapy: (Recorded:[id number]) to Recorded Dispense: 0 Days ; #: Sufficient Tablet; Refill: 0; KP = N; Record; Last Updated By: Toyin Angeles; 03/28/2018 9:14:26 AM HydroCHLOROthiazide 25 MG Oral Tablet; TAKE 1 TABLET DAILY;Therapy: (Recorded:06Kci7668) to Recorded Dispense: 0 Days ; #: Sufficient Tablet; Refill: 0; KP = N; Record; Last Updated By: Toyin Angeles; 03/28/2018 9:14:26 AM Imodium A-D CAPS;Therapy: (Recorded:06Ehf8733) to Recorded Dispense: 0 Days ; #: Sufficient CAPS; Refill: 0; KP = N; Record; Last Updated By: Toyin Angeles; 03/28/2018 9:14:26 AM Klor-Con M20 20 MEQ Oral Tablet Extended Release; TAKE 2 TABLETS TWICE DAILY;Therapy: (Recorded:23Yxd1065) to Recorded Dispense: 0 Days ; #: Sufficient Tablet Extended Release; Refill: 0; KP = N; Record; Last Updated By: Toyin Angeles; 03/28/2018 9:14:26 AM Lisinopril 40 MG Oral Tablet; TAKE 1 TABLET DAILY;Therapy: (Recorded:17Gwt7468) to Recorded Dispense: 0 Days ; #: Sufficient Tablet; Refill: 0; KP = N; Record; Last Updated By: Toyin Angeles; 03/28/2018 9:14:26 AM Loratadine 10 MG Oral Tablet; TAKE 1 TABLET DAILY;Therapy: (Recorded:41Hwz8315) to Recorded Dispense: 0 Days ; #: Sufficient Tablet; Refill: 0; KP = N; Record; Last Updated By: Toyin Angeles; 03/28/2018 9:14:26 AM Metoprolol Tartrate 100 MG Oral Tablet; TAKE 1 TABLET DAILY;Therapy: (Recorded:77Nas8265) to Recorded Dispense: 0 Days ; #: Sufficient Tablet; Refill: 0; KP = N; Record; Last Updated By: Toyin Angeles; 03/28/2018 9:14:26 AM Multivitamins TABS;Therapy: (Recorded:02Hql9514)to Recorded Dispense: 0 Days ; #: Sufficient TABS; Refill: 0; KP = N; Record; Last Updated By: Toyin Rainey; 03/28/2018 9:14:26 AM Tamsulosin HCl - 0.4 MG Oral Capsule;Therapy: (Recorded:35Una1095) to Recorded Dispense: 0 Days ; #: Sufficient Capsule; Refill: 0; KP = N; Record; Last Updated By: Toyin Angeles; 03/28/2018 9:14:26 AM Vitamin B-12 ER 1500 MCG Oral Tablet Extended Release;Therapy: (Recorded:65Rcf0291) to Recorded Dispense: 0 Days ; #: Sufficient TBCR; Refill: 0; KP = N; Record; Last Updated By: Toyin Angeles; 03/28/2018 9:14:26 AM Vitamin D3 2000 UNIT Oral Tablet;Therapy: (Recorded:81Wts4677) to Recorded Dispense: 0 Days ; #: Sufficient Tablet; Refill: 0; KP = N; Record; Last Updated By: Toyin Angeles; 03/28/2018 9:14:26 AM Warfarin Sodium 5 MG Oral Tablet; TAKE 1 TABLET DAILY;Therapy: (Recorded:71Kzv1262) to Recorded Dispense: 0 Days ; #: Sufficient Tablet;Refill: 0; KP = N; Record; Last Updated By: Toyin Angeles; 03/28/2018 9:14:26 AM Vitals Vital Signs Recorded: 28Mar2018 09:12AMHeart Qkag39Kpugrjlcumh37Rycllxpk956Hflfgmmcn10Gfjxbt4 ft 2 enDxrwdn130 lb 6 ozBMI Brtcpnbqbv41.52BSA Calculated2.67 Physical ExamConstitutional General appearance: In no [...] salt-induced diarrhea; KP = N; VerifiedTransmission [facility]; Last Updated By: Rafi Rhodes; 03/28/2018 9:44:38 [...] MG Oral Tablet; TAKE 1 TABLET DAILY;Therapy: (Recorded:86Thw9731) to RecordedCholestyramine Light 4 GM Oral Packet; MIX THE CONTENTS OF 1 POWDER PACKETWITH 2-6 OZ OF NONCARBONATED BEVERAGE AND SWALLOW ONCE DAILY;Therapy: 82Iev8187 to (Evaluate:41Unu5993) Requested for: 92Tib5856; LastRx:11Alp8911 OrderedFlecainide Acetate 100 MG Oral Tablet; TAKE 1 TABLET EVERY 12 HOURS DAILY;Therapy: (Recorded:73Lhm0964) to RecordedHydroCHLOROthiazide 25 MG Oral Tablet; TAKE 1 TABLET DAILY;Therapy: (Recorded:69Wfk3846) to RecordedImodium A-D CAPS (Loperamide HCl);Therapy: (Recorded:14Our5898) to RecordedKlor-Con M20 20 MEQ Oral Tablet Extended Release; TAKE 2 TABLETS TWICE DAILY;Therapy: (Recorded:05Hzp6912) to RecordedLisinopril 40 MG Oral Tablet; TAKE 1 TABLET DAILY;Therapy: (Re corded:84Tdk3426) to RecordedLoratadine 10 MG Oral Tablet; TAKE 1 TABLET DAILY;Therapy: (Recorded:25Tkf1586) to RecordedMetoprolol Tartrate 100 MG Oral Tablet; TAKE 1 TABLET DAILY;Therapy: (Recorded:89Ssy3014) to RecordedMultivitamins TABS;Therapy: (Recorded:50Ows0295) to RecordedTamsulosin HCl - 0.4 MG Oral Capsule;Therapy: (Recorded:81Tvc0292) to RecordedVitamin B-12 ER 1500 MCG Oral Tablet Extended Release;Therapy: (Recorded:36Vaf8393) to RecordedVitamin D3 2000 UNIT Oral Tablet;Therapy: (Recorded:75Fvm9547) to RecordedWarfarin Sodium 5 MG Oral Tablet; TAKE 1 TABLET DAILY;Therapy: (Recorded :71Mqv7029) to Recorded Signatures Electronically signed by : Devin Greer DO; Mar 28 2018 9:51AM EST (Author)[facility] [employer] Vital Signs Date TimeVital SignValuePerforming EtaowikzcIrolnfoa37-85-2517 11:20-0400Body yyjpbc861.96 cmDonald Lizarraga MD Work Phone: [phone])[address]10-27-2025 11:20-0400 Body mass index (BMI) [Ratio]38 kg/r2QdjvgoDonald Lizarraga MD Work Phone: 1(189)[address] [place], [place] 1390510-27-2025 11:20-0400 Body hyceap206.26 kgDonald Lizarraga MD Work Phone: 1(387)[address] [place], [place] 1390508-25-2025 10:51-0400 Body ruivbv215.96 cmDonald Lizarraga MD Work Phone: 1(082)[address] [place], [place] 1390508-25-2025 10:51-0400 Body mass index (BMI) [Ratio]38.1 kg/j6HftsinDonald Lizarraga MD Work Phone: 1(697)[address] [place], [place] 1390508-25-2025 10:51-0400 Body uzwgql870.7 kgDonald Lizarraga MD Work Phone: 1(674)[address] [place], [place] 1390508-06-2025 09:22-0400 Body fvuwlh753.96 cmDonald Lizarraga MD Work Phone: 1(106)[address] [place], [place] 1390508-06-2025 09:22-0400 Body mass index (BMI) [Ratio]38.1 kg/u2VlfizxDonald Lizarraga MD Work Phone: 1(333)[address] [place], [place] 1390508-06-2025 09:22-0400 Body rzlwco989.71 kgDonald Lizarraga MD Work Phone: 1(331)[address] [place], [place] 1390508-06-2025 09:22-0400 Diastolic blood mm[Hg]Donald Lizarraga MD Work Phone: 1(786)[address] [place], [place] 139[address]8-06-2025 09:22-0400 Heart rate61 /Edis Lizarraga MD Work Phone: 1(033)[address] [place], [place] 1390508-06-2025 09:22-0400 Systolic blood lqtsumxw426 mm[Hg]Donald Lizarraga MD Work Phone: 1(936)[address] [place], [place] 1390511-20-2024 09:52-0500 Body cudgal820.96 cmDonald Lizarraga MD Work Phone: 1(726)[address] [place], [place] 1390511-20-2024 09:52-0500 Body mass index (BMI) [Ratio]38.4 kg/m0ElecsaDonald Lizarraga MD Work Phone: 1(924)[address] [place], [place] 1390511-20-2024 09:52-0500 Body fvlkjijjyoi07.5 [degF]Donald Lizarraga MD Work Phone: 1(753)[address] [place], [place] 1390511-20-2024 09:52-0500 Body anctrl121.62 kgDonald Lizarraga MD Work Phone: 1(151)[address] [place], [place] 1390511-20-2024 09:52-0500 Diastolic blood ibhxqvjo50 mm[Hg]Donald Lizarraga MD Work Phone: 1(656)[address] [place], [place] 1390511-20-2024 09:52-0500 Heart rate73 /Edis Lizarraga MD Work Phone: 1(363)[address] [place], [place] 1390511-20-2024 09:52-0500 SaO2% (BldA) [Mass fraction]98 %Donald Lizarraga MD Work Phone: 1(607)[address] [place], [place] 1390511-20-2024 09:52-0500 Systolic blood ezjtemhu108 mm[Hg]Donald Lizarraga MD Work Phone: 1(697)[address] [place], [place] 1390511-17-2024 09:18-0500 Body ahoykv449.96 cmDonald Lizarraga MD Work Phone: 1(611)[address] [place], [place] 139[address]11-17-2024 09:18-0500 Body mass index (BMI) [Ratio]38.5 kg/o9XxjaudDonald Lizarraga MD Work Phone: 1(121)[address]11-17-2024 09:18-0500 Body .1 [degF]Donald Lizarraga MD Work Phone: 1(520)[address]11-17-2024 09:18-0500 Body hufudr756.13 kgDonald Lizarraga MD Work Phone: 1(905)[address]11-17-2024 09:18-0500 Diastolic blood zaskhjyt58 mm[Hg]Donald Lizarraga MD Work Phone: 1(970)[address]11-17-2024 09:18-0500 Heart rate73 /Edis Lizarraga MD Work Phone: 1(537)[address] [place], [place] 1390511-17-2024 09:18-0500 Respiratory rate18 /Edis Lizarraga MD Work Phone: 1(684)[address] [place], [place] 139[address]11-17-2024 09:18-0500 SaO2% (BldA) [Mass fraction]96 %Donald Lizarraga MD Work Phone: 1(346)[address]11-17-2024 09:18-0500 Systolic blood jnqhyqbt656 mm[Hg]Donald Lizarraga MD Work Phone: 1(694)[address]10-30-2024 09:24-0400 Body .96 [facility]20[facility] 09:24-0400Body mass index (BMI) [Ratio]38.8 kg/z0LyjfsfityPromedica Defiance [facility] Hospital10-30-2024 09:24-0400Body fdrktxdktev20 [degF][facility]10-30-2024 09:24-0400Body myyeqx539.15 kgProm[facility]ica [facility] Hospital10-30-2024 09:24-0400Diastolic blood uclqiuqq50 mm[Hg][facility] 05-08-2024 09:24-0400Heart rate70 /[facility] 05-08-2024 09:24-0400Respiratory rate18 /[facility] 05-08-2024 09:24-3096FrR5% (BldA) [Mass fraction]98 %[facility]10-30-2024 09:24-0400Systolic blood nvwouwth405 mm[Hg][facility]07-16-2024 14:11-0400Blood Pressure LocationJENNIFER TIANA [facility]07-16-2024 14:11-0400Body rdwuskluczo87.88 [degF]CATHIE HERNANDEZ [facility]07-16-2024 14:11-0400Diastolic blood fdcwmjef58 mm[Hg]CATHIE HERNANDEZ [facility]07-16-2024 14:11-0400Heart rate67 /minJENNIFER TIANA [facility]07-16-2024 14:11-0400Respiratory rate16 /minJENNIFER TIANA [facility]07-16-2024 14:11-0400Systolic blood dtptkkur704 mm[Hg]CATHIE HERNANDEZ [facility]04-11-2024 10:Body .96 cmProm[facility]04-11-2024 10:040Body mass index (BMI) [Ratio]40.1 kg/t1PvptykugkPromedica Defiance Regional Hospital04-11-2024 10:040Body ndaymo274.63 kgPromedica Defiance [facility] Hospital04-11-2024 10:040Diastolic blood mm[Hg] [facility]04-11-2024 10:040Heart rate71 /minPromedica Defiance [facility] Hospital04-11-2024 10:6742SsL3% (BldA) [Mass fraction]98 % [facility]04-11-2024 10:19-0400Systolic blood xubrjnlm992 mm[Hg][facility]01-04-2024 15:30-0500Body cussms609.96 cm Donald Lizarraga Other [employer] Other 01-04-2024 15:30-0500Body mass index (BMI) [Ratio] 40.18 kg/y7Stfisx Elham Other [employer] Other 01-04-2024 15:30-0500Body .98 kgDonald Elham Other [employer] Other 01-04-2024 15:30-0500Diastolic blood silmazcu08 mm[Hg] Donaldtrixie Lizarraga Other [employer] Other 01-04-2024 15:30-0500Systolic blood lluevwjc060 mm[Hg] Donaldtrixie Lizarraga Other [employer] Other 07-18-2023 10:00-0400Blood Pressure LocationJENNIFER TIANA [facility]07-18-2023 10:00-0400Diastolic blood arxthgyu85 mm[Hg]CATHIE TIANA [facility]07-18-2023 10:00-0400Heart rate72 /minJENNIFER TIANA [facility]07-18-2023 10:00-0400Respiratory rate16 /minJENNIFER TIANA [facility]07-18-2023 10:00-0400Systolic blood ztgkcynf230 mm[Hg]CATHIE TIANA [facility]03-30-2023 10:17-0400Diastolic blood hcvwetly98 mm[Hg]Daigle SALAM [facility]03-30-2023 10:17-0400Heart rate69 /minMaher SALAM [facility]03-30-2023 10:17-0400 Respiratory rate16 /minMaher SALAM [facility]03-30-2023 10:17-8810DiA3% (BldA) [Mass fraction]99 %Daigle SALAM [address] [place], [place] [address]03-30-2023 10:17-0400 Systolic blood lurktegn321 mm[Hg]Daigle SALAM [facility]03-30-2023 10:05-0400 Diastolic blood dtapvyau28 mm[Hg]Daigle SALAM [facility]03-30-2023 10:05-0400Heart rate67 /minMaher SALAM [facility]03-30-2023 10:05-0400 Respiratory rate18 /minMaher SALAM [facility]03-30-2023 10:05-6348CwB7% (BldA) [Mass fraction]99 %Daigle SALAM [facility]03-30-2023 10:05-0400 Systolic blood keytjrcl132 mm[Hg]Daigle SALAM [facility]03-30-2023 10:00-0400 Diastolic blood mm[Hg]Daigle SALAM [facility]03-30-2023 10:00-0400Heart rate66 /minMaher SALAM [facility]03-30-2023 10:00-0400 Systolic blood qsnedwpp961 mm[Hg]Daigle SALAM [facility]03-30-2023 09:55-0400 Respiratory rate16 /minJaviher SALAM [facility]03-30-2023 09:52-0400Body unadcsvfald87.7 [degF]Oxana IBARRA [facility]03-30-2023 09:40-0400 Respiratory rate1 /Vitaher SALAM [address] [place], [place] [address]1003-30-2023 08:21-0400Blood Pressure LocationOxana IBARRA [address] [place], [place] 136[address]03-30-2023 08:21-0400Body ucqgccukebp67.88 [degF]Oxana IBARRA [facility]01-20-2023 14:15-0500 Diastolic blood mm[Hg]Elicia Mcmillan [phone]-DpdqtDiley [facility]01-20-2023 14:15-0500Mean blood bagwimmy465 mm[Hg]Elicia Hipolito [phone]-VkuqaDiley Ridge Medical Center01-20-2023 14:15-0500Systolic blood dxwudclk664 mm[Hg]Elicia Garciametz [phone]-IsfpnDiley Ridge Medical Center01-20-2023 14:11-0500Blood Pressure LocationElicia Mcmillan [phone]-Cvvfo[address] [place], [place] 3031001-20-2023 14:11-0500Body ehrwuizlryq72.88 [degF]Eliciagurwinder Zamarripaz 175-4396Zzqibp-Hlgpf[address] [place], [place] 3031001-20-2023 14:11-0500Diastolic blood zlvkpycy64 mm[Hg]Elicia Mcmillan [phone]-GvacaDiley Ridge Medical Center01-20-2023 14:11-0500Heart rate77 /minBeth Hipolito [phone]-TgjpqDiley Ridge Medical Center01-20-2023 14:11-0500Systolic blood ucqeazih289 mm[Hg]Elicia Mcmillan [phone]-FsijcDiley Ridge Medical Center01-17-2023 10:45-0500Body .96 cmDonald Lizarraga Other [facility] Other 01-17-2023 10:45-0500Body mass index (BMI) [Ratio] 41.47 kg/j6MgbivsDonald Lizarraga Other [employer] Other 01-17-2023 10:45-0500Body gtuaox506.51 kgDonald Lizarraga Other [employer] Other 01-17-2023 10:45-0500Diastolic blood ajflauga05 mm[Hg] Donald Lizarraga Other [employer] Other 01-17-2023 10:45-2300ZyT4% (BldA) [Mass fraction]97 % Donald Lizarraga Other [employer] Other 01-17-2023 10:45-0500Systolic blood mfxvadua991 mm[Hg] Donald Lizarraga Other [employer] Other 04-20-2022 12:02-0400Blood Pressure LocationJENNIFER TIANA [facility] 04-20-2022 12:02-0400Diastolic blood erufmebn51 mm[Hg] C[facility] HER[facility]NDEZ [facility] 04-20-2022 12:02-399Heart rate77 /minCATHIE HERNANDEZ [facility] 04-20-2022 12:-399Systolic blood hvfncaua146 mm[Hg] CATHIE HERNANDEZ [facility] Encounters Encounter DateEncounter TypeCare ProviderFacilityStart: 05-07-2025 End: 40-39-9667Smslxn flowsheetJr. Medina Alcala DO Work Phone: [facility]Start: 05-07-2025 End: 58-68-1546Lfrntz flowsheetJr. Medina Alcala DO Work Phone: [facility]icsStart: 05-07-2025 End: 76-61-2179Yroedx outpatient new 30 minutesJr. Medina Alcala DO Work Phone: [facility] OrthopaedicsComment on above:Primary osteoarthritis of right hip (Primary Dx); Acute right hip painStart: 05-07-2025 End: 60-86-7306ydipapcaagUG., MEDINA LACALANot AvailableStart: 05-05-2025 End: 38-33-2844lcrlxpibamIcrhyc E Braun MD Work Phone: -[facility] BellueStart: 05-05-2025 End: 34-43-2630Sawwkvy encounter procedureJuliudmila Carbone DO-[facility] Work Phone: Start: 30-95-0195Pym-patient / Non-visitAndrius Jesus Alberto [facility] Work Phone: Start: 04-28-2025 End: 18-39-6571vcjzodfbvrXikyyma Kimberlynytshraddhaas Jesus Alberto MDFacility:[facility] Start: 28-89-3530Kru-patient / Non-visitAndrius Jesus Alberto [facility] Work Phone: Start: 04-14-2025 End: 40-00-3933mnxbgkngabHwiboqx Aylin Granda MDFacility:[facility] Start: 04-02-2025 End: 73-98-5119Ciawpqn encounter statusPrasanth Perez MD Work Phone: [facility]: 04-02-2025 End: 47-02-9598DnmmykTervlco Almahameed MD Work Phone: [facility] CardiologyComment on above:RefillStart: 03-24-2025 End: 00-50-9580cfkofzedsbCctgurx Aylin Granda MDFacility:[facility] Start: 03-03-2025 End: 06-93-1091qgckndyoyvYhycda E Braun MD Work Phone: [facility] Work Phone: Start: 03-03-2025 End: 30-49-5256Ennqocy encounter procedurePeter Carbone DO-[facility] [place] Work Phone: Start: 02-12-2025 End: 12-05-7282kzcaheuowkKaqupx E Braun MD Work Phone: [facility] Work Phone: Start: 02-12-2025 End: 78-24-8967Wnypoew encounter procedureDonald Lizarraga MD-[facility] Work Phone: Start: 12-23-2024 End: 48-61-7966vcwdxmodxuNvjmtav Aylin Granda MDFacility:[facility] Start: 91-96-8873Wtg-patient / Non-visitAndrius Bettyedraitis MD-[facility] Work Phone: Start: 12-16-2024 End: [id number] Granda MDFacility:[facility] Start: 12-14-2024 End: [id number] encounterSguillejavi Carnes DO Work Phone: [facility]: [id number]-patient / Non-visit Merlyn Casillas [facility] Work Phone: Start: 11-25-2024 End: 49-58-6151ktarnvrfjwBgmiljbLindsay Granda MDFacility:PM [facility] Start: 11-06-2024 End: 60-94-9830AbnycrQkgutdpRandall Perez MD Work Phone: [facility] CardiologyComment on above:RefillStart: 05-29-2024 End: 85-35-1130mtvzhyynwyOigkkw E Braun MD Work Phone: [facility] Work Phone: Start: 05-29-2024 End: 36-12-5923Cpwdeck encounter procedureDonald Lizarraga MD Work Phone: [facility] Work Phone: Start: 05-26-2024 End: 58-70-3456aploakxjemTnxkwt E Braun MD Work Phone: [facility] Work Phone: Start: 05-26-2024 End: 58-38-1096Xuiyydc encounter procedureDonald Lizarraga MD Work Phone: [facility] Work Phone: Start: 05-08-2024 End: 98-72-6277nrsrnlpqnaOmyvztxbmGrant Hospital Work Phone: Start: 05-08-2024 End: 02-01-5159Ckqztxe encounter procedureLouisa [facility] Work Phone: Start: 17-43-2931Kya-patient / Non-visitNov[facility] Work Phone: Start: 04-15-2024 End: 25-16-2276Xoamuq outpatient visit 25 minutesPrasanth Perez MD Work Phone: [facility] CardiologyComment on above:PAF (paroxysmal atrial fibrillation) (HCC) (Primary Dx)Start: 04-15-2024 End: 15-07-3347bkveibvyzvJVEYFSG ALMAHAMEEDFacility:METROHealthStart: 01-23-2024 End: 69-29-3166rrgxlmflzwRFSXSJCW E PERRYFacility:EU BellevueStart: 01-23-2024 End: 51-06-4850Yblpsac encounter procedureJENNIFER E TIANA [facility] start: 12-27-2023 End: 15-30-1617Elnymsc encounter statusSaima Deyvi DO Work Phone: [facility]DynamightyStart: 12-27-2023 End: 41-41-1483IqqlmbJyjir Karim DO Work Phone: MetrsTikbct CardiologyComment on above:RefillStart: 10-19-2023 End: 55-59-3374jawdcpjduxDtepbkvosGrant Hospital Work Phone: Start: 10-19-2023 End: 55-03-7674Xjhzgyd encounter procedureLouisa [facility] Work Phone: Start: 31-22-6029Dts-patient / Non-visitNov[facility]axel [facility] Work Phone: Start: 07-20-2023 End: 79-94-7227fxjxagkfpzCqedhj Braun Other noMohive Other Start: 71-83-8627Wmjfvoako encounterDonald Adan [facility] ClinicStart: 07-13-2023 End: 88-72-0169jqasiwfgnoHgmbcd Braun Other noMohive Other Start: 17-78-0285Txhwdx outpatient visit 15 [address] [facility] ClinicStart: 94-82-0827Cnjbdld encounter status Emperatriz Carnes DO Work Phone: [facility]SightingsroHealthStart: 92-60-7324GwwooyMtztv Karim DO Work Phone: [employer] CardiologyComment on above:RefillStart: 03-29-2023 End: 84-69-9455Adepjn outpatient visit 15 minutesSaquique Reynoldsim DO Work Phone: [employer] CardiologyComment on above:Persistent atrial fibrillation (HCC) (Primary Dx); Anticoagulated; JAVED on CPAPStart: 03-28-2023 End: 62-78-7335qjyxgwbeywFitcnm Braun Other noMohive Other Start: 08-33-4073Sflodyogz encounterDonald Adan [facility] ClinicStart: 72-65-7029Ziftsg encounterSaima Karim DO Work Phone: [facility]SightingsroHealthStart: 13-10-2438Qmnfxxhla encounterSaima Karim DO Work Phone: [employer] CardiologyComment on above:Question about medicationRefillStart: 35-29-3344Jsqfetf encounter statusSaima Karim DO Work Phone: metroHealthStart: 91-23-9271QjdwllBfopm Karim DO Work Phone: [employer] CardiologyComment on above:RefillStart: 01-24-2023 End: 38-28-7951Szt Drop offJENNIFER E TIANA [facility] Start: 01-24-2023 End: 37-58-0277Waacxcx encounter procedureJENNIFER E TIANA [facility] Garrett start: 11-10-2022 End: 34-99-4339xslxymarygQWFWOZA HALKER .Facility:A5Vktim: 11-07-2022 End: 95-17-9222fpifbbxaevOK DONALD Mccaincility:S5Tnwao: 61-59-8168bnsyoaofxb NARENDRANATH LAKSHMIPATHY .Facility:A7Cljth: 10-11-2022(Televisit) Televisit Donald [facility]art: 10-11-2022 End: 77-28-1445ffwmjkzlujJfyhux Braun Other [place] onkea Other Start: 10-10-2022 End: 66-58-8456mrnknblxvzPBSKIS H FAWWADFacility:O4Rhkfb: 10-06-2022 End: 67-53-4964Orhwlqh encounter procedureMaher IBARRA [facility] Start: 99-38-1090Dcsyndskd encounterMarsekou [facility] Centertart: 2022 End: 09-52-3186pemgrunwoxBN DONALD [facility] onkea Other Start: 09-07-2022 End: 44-35-1407xhwfrnjetfTBVBNP H FAWWADFacility:Q5Nrbzp: 08-10-2022 End: 55-78-2060warftzcdkfFXUEFE H FAWWADFacility:J0Gausc: 07-29-2022 End: 23-87-2213Npmmvjd encounter procedureElicia Mcmillan 455-7452Cmctsf-BsvvwW[facility]sworth[facility] Start: 07-26-2022 End: 80-08-7819anuhuccrpuMsrvaq Braun Other [place] [facility] Other Start: 29-56-5905Lxncbf outpatient visit 15 minutes Donaldtrixie Cross [facility] Texastart: 07-20-2022 End: 52-67-3724yrqfajyyhgKV JADENSUGAR VILLA .Facility:D6Pzfnz: 07-11-2022 End: 81-86-9941bpbsskecuqECYLOW Gurwinder FAWWADFacility:Y1Edjgj: 06-28-2022 End: 34-70-1060bzaeqwgsrrWB JADEN Michael VILLA .Facility:E6Bzesk: 06-09-2022 End: 68-44-1860vlizhldzvgCF DONALD E BRAUNFacility:K5Kkwpd: 05-26-2022 End: 65-70-8569wokllghoqlVM DONALD E BRAUNFacility:A0Rkyex: 05-10-2022 End: 85-24-2851qgekjpbddwUP DONALD E BRAUNFacility:N6Xbtxt: 04-10-2022 End: 86-32-5289ceqvbvwczpDO DONALD E BRAUNFacility:S5Bxtwv: 04-07-2022 End: 18-33-1213qnwoilpqqbHX DONALD E BRAUNFacility:Y1Rjjue: 03-22-2022 End: 91-73-2466pxaadirsmgYB DONALD E BRAUNFacility:Q7Bgkgu: 03-10-2022 End: 77-02-4860qmzzvatinjRQ DONALD E BRAUNFacility:J3Npotx: 03-03-2022 End: 85-03-9639xqbdxfjhuzJV DONALD E BRAUNFacility:Z8Nyorr: 79-54-9854Ahvfjcz encounter statusSaquique Carnes DO Work Phone: MetThe [facility] CardiologyStart: 30-37-8980XapooyByusg Karim DO Work Phone: [facility] CardiologyComment on above:RefillStart: 02-07-2022 End: 24-38-5957oyyauzhsczGC DONALD E BRAUNFacility:G2Oarug: 02-07-2022 End: 98-89-0477yrpqjzdkohUJ MARCIA E BRAUNFacility:E2Sbjsr: 76-83-8802Milzry Emperatrizquique Carnes DO Work Phone: MetThe [facility] CardiologyComment on above:RefillStart: 01-07-2022 End: 03-78-5291aasqpylmvdYR MARCIA E BRAUNFacility:D0Diysk: 86-85-2755Agewjdv encounter statusSaima Karim DO Work Phone: [facility] CardiologyStart: 69-99-0794TgbeqbTasir Karim DO Work Phone: [facility] CardiologyComment on above:RefillStart: 52-55-8830CuobeyLqppp Karim DO Work Phone: [facility] CardiologyComment on above:RefillStart: 10-27-2021 End: 23-12-8778Pnrxwor encounter procedureJEPATRICIA HERNANDEZ [facility] start: 55-22-6746Nanqjot encounterDevin Greer Facility:[facility] Medical BuildingStart: 04-24-2017 End: 84-14-2821YtvupvjlliPKPLUYZ PHYSICIANFacility:UTMCStart: 03-03-2017 End: 51-92-0937QlusejnojgUZUFNOC PHYSICIANFacility:[facility] Procedures DateProcedureProcedure DetailPerforming ClinicianStart: 52-75-2233Rreih hip unilateral with pelvis 2-3 viewsJr. Medina Thornton Stepanic DO Work Phone: Start: 06-12-2468Vprsi chest X-rayDonald Lizarraga MD Work Phone: Start: 63-84-1119CivnaeaempfId. Stepanic DO Work Phone: Start: 05-67-8150ZwahbblrwsmHatqj SALAM Start: 94-76-8473FXE wayneDR JADEN VILLA .Comment on above:Performed By: #### PSASC #### [facility] [address] [address] [address] Jason PearsonStart: 89-89-0924Ldupnplfaorhy prostatectomyJENNIFER TIANA Start: 24-23-4312Glmnjlufcih biopsy of prostate using ultrasound guidanceJENNIFER TIANA Start: 43-14-5178PbtainsxxomiythukbsvacacujWltt Hipolito Start: 35-22-4797Bumtxjjyz for malignant neoplasm of colonMarcia Lizarraga Other Start: 10-29-8221Ykuvfrixv for malignant neoplasm of prostateMarcia Lizarraga Other Start: 73-49-2328Mqdbhyl of sutureMarcia Lizarraga Other Start: 84-71-4528Ozhbfkq examination of patientMarcia Lizarraga Other ColonoscopyJENNIFER TIANA Excision of cystJENNIFER TIANA Local anesthetic nerve block in lower limbJENNIFER TIANA Screening for malignant neoplasm of colonMarcia Lizarraga Other Screening for malignant neoplasm of prostateMarcia Lizarraga Other Special back careJENNIFER TIANA Plan of Treatment DateCare ActivityDetailAuthorStart: 46-70-9734Wscgskqzs for malignant neoplasm of colonNOMS HealthcareStart: 43-81-8289Pvojn panelCholesterolMetroHealthStart: 05-07-2025 End: 50-72-8301Nxvhwbx encounter pxtdurazy54/29/2025 10:45 AM EDT Office Visit [facility] [address] [place] [address] Jr. Medina Alcala, [address] [address] [facility] Comment on above:ArrivedStart: 81-62-8372IDJTS-19 Vaccine ( season) COVID-19 Vaccine ( season)[facility] HealthcareStart: 76-28-1363CORXW-19 Vaccine ( season)COVID-19 Vaccine ( season)[facility] Start: 41-83-0591Lynknqqnc vaccinationInfluenza Vaccine (#1)MetroHealthStart: 78-49-9701Jqkygsg [facility] Work Phone: Start: 54-24-9914VKETR-19 Vaccine ( season) COVID-19 Vaccine ( season)MetroHealthStart: 88-63-8584KIACA-19 Vaccine ( season)COVID-19 Vaccine ( season)[facility] Start: 52-89-5092Zdegorjas vaccinationInfluenza Vaccine (#1)[facility]roHealthStart: 89-91-9765Nvzbgaajz vaccinationInfluenza Vaccine (#1)[facility]roHealthStart: 03-29-2023 End: 86-74-2250Pletjxsferyj consultation with iurbiuz0103/29/2023 4:20 PM EDT Telemedicine [facility] Card[facility] [address] [place] [address] Emperatriz Carnes DO [address] [place] [address] [facility] CardiologyStart: 03-10-2023 COVID-19 Vaccine ( season)COVID-19 Vaccine ( season) [facility]HealthStart: 24-88-2390Hytfrpknv vaccinationInfluenza Vaccine (#1) MetroHealthStart: 71-23-7145Akfzpkbpqyuu vaccinationMetroHealthStart: 04-09-2022 Influenza vaccinationInfluenza Vaccine (#1)[facility]roHealthStart: 90-05-7254XDZSU-19 Vaccine (5 - Booster for Pfizer series)COVID-19 Vaccine (5 - Booster for Pfizer series)[facility]HealthStart: 98-77-2821UTXQC-19 Vaccine (5 - Pfizer series)COVID-19 Vaccine (5 - Pfizer series)[facility]HealthStart: 50-48-6246Cgxfmdqtb vaccination Influenza Vaccine (#1)MetroHealthStart: 57-84-5393CTYMY-19 Vaccine (4 - Booster for Pfizer series)COVID-19 Vaccine (4 - Booster for Pfizer series)[facility] Start: 76-40-2449CASYI-19 Vaccine (4 - Booster for Pfizer series)COVID-19 Vaccine (4 - Booster for Pfizer series)[facility]roHealthStart: 47-24-3351Jzvfc metabolic 2000 panel - Serum or PlasmaBasic Metabolic PanelMetroHealthStart: 60-28-0440Lixsvlpkrn measurementBasic Metabolic PanelMetroHealthStart: 63-81-9534Rsrvve wellness visitAnnual Wellness Visit (G0438)MetroHealthStart: 78-62-7642Hjezfrqyk B (HBV) Vaccine (optional start 60+ years)Hepatitis B (HBV) Vaccine (optional start 60+ years)[facility]HealthStart: 86-96-4322USU vaccine (adult) (1 - Risk 60-74 years 1-dose series)RSV vaccine (adult) (1 - Risk 60-74 years 1-dose series)[facility]HealthStart: 29-49-3257GHN vaccine (optional 60+ years) RSV vaccine (optional 60+ years)[facility]roHealthStart: 08-13-9085Wsynvrdpbdz of occult blood in single stool specimenFITMetroHealthStart: 27-30-2921Uzlcrkpgm for malignant neoplasm of colonCRC ScreeningMetroHealthStart: 55-02-7716Kdsdupne (RZV) Vaccine (1 of 2)Shingles (RZV) Vaccine (1 of 2)MetroHealthStart: 35-67-0606Tfmywwmqc for malignant neoplasm of colonMetroHealthStart: 1990 Lipid panelCholesterolMetroHealthStart: 49-98-1656Lwdaksxxq A (HAV) Vaccine (optional start 19+ years)Hepatitis A (HAV) Vaccine (optional start 19+ years) MetroHealthStart: 02-20-2188Rveiavzcg C screeningHepatitis C AntibodyMetroHealth Start: 96-51-3748Rofmplt + diphtheria + acellular pertussis vaccine (product) Tdap BoosterMetroHealthStart: 60-51-0909ODqV/Tdap/Td Vaccines (1 - Tdap) DTaP/Tdap/Td Vaccines (1 - Tdap)[facility] HealthcareStart: 06-48-9857NBNOV-19 Vaccine ( formulation)COVID-19 Vaccine ( formulation)[facility] Start: 91-19-9629Bjhirdcbb for malignant neoplasm of colonMetroHealthPatient EducationLow back pain in adultsMercy Health Allen Hospital Work Phone: Patient referralMercy Health Allen Hospital Work Phone: Immunizations Immunization DateImmunizationNotesCare BlswnjvlNobebhnx43-80-4605ytnnlxksn virus vaccine, unspecified formulationJr. Stepanic DO Work Phone: [facility] HospitalPitmoncdiq37-69-3619Hagfyyrbgtdl conjugate 20 valent (PCV20), polysaccharide LSQ300 conjugate, adjuvant, PF (LSB=075)Emperatriz Karim DO Work Phone: [phone]lOsibtv47-66-6309kmsnqtcqz virus vaccine, unspecified formulationCATHIE TIANA [facility]ue11-01-2023Influenza, seasonal vaccine, quadrivalent, adjuvanted, 0.5mL dose, preservative free (YLG=062)Emperatriz Karim DO Work Phone: [phone]oFuwuoc24-73-8219icbllqhjp virus vaccine, unspecified formulationElicia Mcmillan [phone]-SvmqhWadsworth-[facility] Hospital [facility]estive Cfgjdw88-28-3612 Influenza, seasonal vaccine, quadrivalent, adjuvanted, 0.5mL dose, preservative free (OWX=965)Emperatriz Karim DO Work Phone: [phone]qOfvnrl84-97-8871Atsqyz Monovalent (12+ yrs) SARS-COV-2 (COVID-19) vaccine, mRNA, spike protein, LNP, pres. free, 30mcg/0.3mL dose, art-sucrose (FMQ=024)Emperatriz Carnes DO Work Phone: KkgjxXwzsok03-467247JoimgYbhdjl96-75-9982XPZO-QaD-0 mRNA (vzlmjnpybrm-fwth-kvxtlrg) vaccineBe Hipolito 495-7020Zufyai-MyxojDiley [facility] Center02-09-2022 pneumococcal conjugate vaccine, 13 valentSlesly Carnes DO Work Phone: [phone]sHbhbhw92-27-7654JQAY-FgZ-4 (COVID-19) mRNA BNT- 162b2 vavianney Mcmillan 369-2110Xzahtv-EfdpoDiley Ridge Medical Center11-17-2021 SARS-CoV-2 (COVID-19) Ad26 vaccine, recombinantJENNIFER TIANA [facility] 11342175-62-6917Jpoivgspn, seasonal vaccine, quadrivalent, adjuvanted, 0.5mL dose, preservative free (HLI=057)Emperatriz Carnes DO Work Phone: [phone]pTkuohq12-06-0055pvojlszyy virus vaccine, unspecified formulationSlesly Carnes DO Work Phone: Wkkgly-VeymhDiley Ridge Medical Center10-20-2021 influenza virus vaccine, unspecified formulationJENNIFER TIANA [facility] 10-386700-28-6137UFZT-HvS-0 (COVID-19) Ad26 vaccine, recombinantJENNIFER TIANA [facility] 03422264-47-8810Hxxtom SARS-COV-2 (COVID-19) vaccine, age 12+ yrs, mRNA, spike protein, LNP, preservative free, 30 mcg/0.3mL dose (UVY=683) Emperatriz Karim DO Work Phone: MetroHealthComment on above:Result Comment: 2022-07-27: CEC3117-03-7575Xtkpdm SARS-COV-2 (COVID-19) vaccine, age 12+ yrs, mRNA, spike protein, LNP, preservative free, 30 mcg/0.3mL dose (IAZ=729)Emperatriz Karim DO Work Phone: MetroHealthComment on above:Result Comment: 2022-07-27: GJQ0617-09-4608iaiugfpod virus vaccine, unspecified formulation CATHIEHUNTER AZEVEDORY [facility] 10910379-59-1667zxforecnk virus vaccine, unspecified formulationElicia Zamarripaz 779-2232Lggjxr-TrbglWadsworth-[facility] Hospital Digestive Epjjbr02-45-9199 Influenza, seasonal vaccine, quadrivalent, adjuvanted, 0.5mL dose, preservative free (WFM=073)Emperatriz Karim DO Work Phone: [phone]bNclwuq33-82-4751piiequcoy virus vaccine, unspecified formulationElicia Zamarripaz 626-6909Bmxiyg-CgitiWadsworth-Rittman Hospital Digestive Gquvfb18-25-3906 influenza, high dose seasonal, preservative-freeSaima Karim DO Work Phone: [phone]rBzznuu93-73-9906ynaerqdqo virus vaccine, unspecified formulationElicia Zamarripaz 288-9881Tsaoak-CxeioWadsworth-Rittman Hospital Digestive Zzkrop15-87-2195 Influenza, injectable, Madin Courtney Canine Kidney, preservative free, quadrivalentSaima Karim DO Work Phone: [phone]cHbnpfd47-82-4947ypatftcht virus vaccine, split virus (incl. purified surface antigen)Donald Lizarraga Other noDizzion onkea Other 375447-93-2118latvrwoys virus vaccine, unspecified formulationPromedica [facility]iance [facility] Hospital10-11-2016pneumococcal polysaccharide vaccine, 23 valentDonald Lizarraga Other [facility]12-15-2014influenza virus vaccine, split virus (incl. purified surface antigen)Donald Lizarraga Other noDizzion onkea Other 12840470-25-7287fxmdmqauh virus vaccine, unspecified formulationPromedica [facility]iance [facility] Hospital08-07-2014diphtheria, tetanus toxoids and acellular pertussis vaccine, unspecified formulationDonald Lizarraga Other [facility] Payers DatePayer CategoryPayerPolicy [id number] Health InsuranceAARP [id number] Indemnity [facility] [id number] 2023Unknown2019Medicare [id number] 2019Medicare [facility] [id number] [id number] 2.0.5.22348[id number] 2.0.5.087602.7070-02-1954 Spvrjjr4018190 2..1.638266.3.579.2.47516-96-2057Hknfcss6799745 2.0.1.937948.3.579.2.72348-87-0960Ueemsob4642509 2.0.1.785429.3.579.2.97775-56-3496Hfbejce0407561 2.0.1.375955.3.579.2.95965-76-4804Cixscgh2032113 2.840.1.851592.3.579.2.96707-97-9502Rpzzjhn0859628 2.16840.1.530692.3.579.2.55466-99-1162Tjdeuek4314453 2.16840.1.042690.3.579.2.41838-78-6682Mtphdns3186785 2.840.1.163497.3.579.2.49095-50-6457Vydllsi9444441 2.16.840.1.063027.3.579.2.31736-33-3079Vqywlnh1742163 2.16.840.1.854135.3.579.2.56834-03-6087Vthldxo9348966 2.16.840.1.188722.3.579.2.95620-94-9804Zutbvik1999799 2.16.840.1.790075.3.579.2.07846-65-2133Kklfjqy5707994 2.16840.1.015644.3.579.2.56788-97-6307Gyvuotu1633836 2.840.1.510827.3.579.2.99108-08-0764Loxwjlm4091773 2.840.1.143840.3.579.2.47876-78-8844Fyvjoup2165248 2.840.1.523981.3.579.2.35401-45-8375Sggveme4958164 2.840.1.922341.3.579.2.15625-72-9537Asmtdom2860716 2.840.1.642618.3.579.2.07604-18-2340Tozycfz2248142 2.840.1.179284.3.579.2.28254-67-1614Kxdquac6156386 2.16840.1.574589.3.579.2.02214-44-5039Tmtbpgg9424368 2.16840.1.604377.3.579.2.58915-87-9310Smvwoml0307907 2.16840.1.201774.3.579.2.81916-61-5382Ghecumj3784786 2.16840.1.897503.3.579.2.11345-25-3275Pjnfcyq11508456 2.16.840.1.974507.3.579.2.19189-48-6587Fsvlofh761743626 2.16.840.1.774607.3.579.2.64660-56-6894Cxliwfn824530527 2.16.840.1.128146.3.579.2.13515-75-1573Bslgbob465451314 2.16.840.1.932674.3.579.2.04701-87-9635Qpqggkf207447775 2.16.840.1.589049.3.579.2.24210-22-4975Gdanoqd481959857 2.16.840.1.559994.3.579.2.47268-66-8999Lmtbkve013201997 2.16.840.1.217991.3.579.2.57421-14-1928Qykvbdr177536016 2.16.840.1.517461.3.579.2.24438-85-2848Gvnxmgg01217389 2.16.840.1.065386.3.579.2.350035-19-0468Ytthrbu62128206 2.16840.1.670286.3.579.2.2088ZicdlngJNI198S95432YogvamgNTSBG290803785 538v6x18-b3b3-8342-2o61-s567183123sx Social History DateTypeDetailFacilityStart: 09-03-2020 End: 98-49-7170Iodmcuv smoking statusNever smoked tobacco (finding)[facility] start: 65-10-8420Pfcnluh smoking statusNeverExecutive [facility]rology of [facility] start: 03-27-2023 End: 62-40-5784Lqb Assigned At BirthMaleExec[facility] of [facility] start: 12-28-2018 End: 12-60-8022Nfgpgns use and exposureSmokeless tobacco non-userMetroHealth Start: 12-28-2018 End: 79-01-0298Qcibdkw intakeEx-drinker (finding)[facility]HealthStart: 33-26-5502Exn Assigned At BirthNot on fileMetroHealthStart: 52-39-9919Mep Assigned At [facility] Hospitaltart: 03-27-2023 End: 74-50-8084Vrnijva of Social functionMetroHealthWithin the last year, have you been afraid of your partner or ex-partner?NoMetroHealthDo you belong to any clubs or organizations such as mosque groups, Food [employer], MyL[employer] or athletic [employer], or school groups?YesMetroHealthAre you now , , , , never or living with a partner?MarriedMetroHealthDo you feel stress - tense, restless, nervous, or anxious, or unable to sleep at night because yourmind is troubled all the time - these days [OSQ]Not at all [facility](I/We) worried whether (my/our) food would run out before (I/we) got money to buy more.Never trueMetroHealthStart: 85-07-0568Xtpfuyiup59QvnsuVcwfkq Start: 08-09-2018 End: 88-85-2181NugAvyh (finding)[facility] Healthtart: 82-87-9181Fkkbivl of drug misuse behaviorHas never misused drugs (situation) MetroHealthTobacco smoking status NHISTobacco smoking consumption unknownNOMS Healthcare Functional Status UhujJrwuthsireWnjwlrHpsatrbr67-09-7177Hwwhxaylhk StatusN/AExec[facility]07-18-2023Functional StatusN/AExec[facility]03-30-2023Functional StatusN/A [facility] Fin[facility] CenterRvpqrm19-89-9394Fghbplfnre StatusN/AFtato-[facility] Clinical Notes 11-24-2021 to 05-07-2025 Note Date & EfigHljaOmvvucfl48-71-9983 History of Present illness Narrative* Medina Thornton [...] come here orbital with Dr. Sanchez [place] A understandsthe risks and benefits of said [...] [3] No Known Allergies documented in this encounterGeneral Leonard Wood Army Community HospitalFqhvsnupxj69-78-9337 Evaluation note* Diagnosis Onset Date Resolution Status Admit Date A-fib acuteAugust 2024 9:16amBilateral primary osteoarthritis of hipacuteAugust 2024 9:16amBilateral primary osteoarthritis of kneeacuteAugust 2024 9:16amLumbar painacuteAugust 2024 9:16amMedicare annual wellness visit, subsequentacuteAugust 2024 9:16amOSA on CPAPacuteAugust 2024 9:16am Degenerative joint disease (DJD) of hipacuteAugust 2024 10:28am [facility] Work Phone: 1(983) 434-210808-06-2025 Evaluation note* Diagnosis Onset Date Resolution Status Admit Date A-fib acuteAugust 2024 9:16amBilateral primary osteoarthritis of hipacuteAugust 2024 9:16amBilateral primary osteoarthritis of kneeacuteAugust 2024 9:16amLumbar painacuteAugust 2024 9:16amMedicare annual wellness visit, subsequentacuteAugust 2024 9:16amOSA on CPAPacuteAugust 2024 9:16am Degenerative joint disease (DJD) of hipacuteAugust 2024 10:28am Degenerative joint disease (DJD) of hipacuteOctober 2024 10:50am [facility] Work Phone: 1(747) 771-260010-30-2024 Evaluation note* Diagnosis Onset Date Resolution Status Admit Date Bronchitis acuteOctober 2023 9:18amCoughnoneactiveNovember 2023 9:07am [facility] Work Phone: 1(808) 127-578710-07-2024 History of Present illness Narrative* Prasanth Perez [...] his last visit, he had lexiscan at [facility] on 09/2016 that showe no reversible [...] in 1 year Prior to your visit, [facility] shared information with you about [...] 180 Tablet 3 Sodium Sulfate-Mag Sulfate-KCl (Sutab) 2798-493-861 MG TABS Take by mouth. AMLODIPINE BESYLATE [...] declined Stress: No Stress Concern Present (03/27/2023) [employer] [place] [employer] - Occupational Stress Questionnaire Feeling of Stress : Not at all Social Connections: Moderately Integrated (03/27/2023) Social Connection and Isolation Panel [NHANES] Frequency of Communication with Friends and Family: More than three times a week Frequency of Social Gatherings with Friends and Family: Twice a week Attends [employer] Services: Never Active Member of Clubs or Organizations: Yes Attends Club or Organization Meetings: More than 4 times per year Marital Status: Intimate Partner Violence: Not At Risk (03/27/2023) Humiliation, Afraid, Rape, and Kick questionnaire Fear of Current or Ex-Partner: No Emotionally Abused: No Physically Abused: No Sexually Abused: No No family history on file. documented in this [id number] Hospital Discharge instructions Patient Education 01/23/2024 14:28:31 [...] Follow these instructions at home: Medicines Take telz-ird-sejrndw and prescription medicines only as told by [...] provider. Document Revised: 09/22/2021 Document Reviewed: 09/22/2021 [employer] Patient Education 2022 [employer]. Follow Up Care 01/24/2023 10:37:20 With:CATHIE HERNANDEZ PA-C, URL Address: [address] [place] [address] [phone] When: only if needed [facility] 07-16-2024 NotePatient Education Urology Erectile [...] these instructions at home: Medicines ? Take cocf-fll-ogxmkyt and prescription medicines only as told by [...] nicotine or tobacco. These (more content not included)...[facility]01-04-2024 Evaluation note* Encounter Date Diagnosis Assessment Notes Treatment Notes Treatment Clinical Notes Jul, Obstructive sleep apnea (ICD-10 - G47.33) Clinical signs which suggest the need for pressure adjustment were reviewed. He is compliant and faithful w using the device. 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 Last televisit- 08/2020- He had to ER on 05/22/20 when he had pain with a blood clot- needing to stop his coumadin for a short period of time. He felt like he has been in sinus rhythm on his self checks. He was on Zmeaexlkqb789 mg BID and Lopressor 100 mg BID. Since patient last saw me, he had TURP done- no further hematuria or urgency. PSA has been stable. Colonoscopy was normal per patient. No melena etc. ALLERGIES: Allergies Allergen Reactions Other (Review Comments!) MEDICATIONS: Current Outpatient Medications Medication Sig Dispense Refill Sodium Sulfate-Mag Sulfate-KCl (Sutab) 8448-458-144 MG TABS Take by mouth. AMLODIPINE BESYLATE [...] refused Stress: No Stress Concern Present (03/27/2023) [place] [employer] - Occupational Stress Questionnaire Feeling of Stress : Not at all Social Connections: Moderately Integrated (03/27/2023) Social Connection and Isolation Panel [NHANES] Frequency of Communication with Friends and Family: More than three times a week Frequency of Social Gatherings with Friends and Family: Twice a week Attends [employer] Services: Never Active Member of Clubs or [...] Assessment/Plan: Persistent atrial fibrillation (HCC) (Primary Diagnosis) [089574] Anticoagulated [776489] JAVED on CPAP [476399] Patient doing well overall as far as [...] Electrophysiology 03/29/23 4:52 PM documented in this [id number] Telephone encounter Note* Telephone Encounter - Crystal Putnam RN - 02/17/2023 9:17 AM EDT LVM for pt that new generic Rx (Toprol XL) was sent over to [facility]. [id number] Miscellaneous Notes* Telephone Encounter - Crystal Putnam [...] only cover the generic brand. Please contact [phone] use Re:[phone]. Thank you documented in this [id number] Telephone encounter Note* Telephone Encounter - Aundrea Davis PharmD - 02/16/2023 3:00 PM EDT Patient called stating the original prescription that was sent had a KP for Toprol XL 100mg which is not covered. Please send over generic Metoprolol ER Succinate 100mg. Thank you! [id number] Miscellaneous Notes* Telephone Encounter - Aundrea Davis PharmD - 02/16/2023 3:00 PM EDT Patient called stating the original prescription that was sent had a KP for Toprol XL 100mg which is not covered. Please send over generic Metoprolol ER Succinate 100mg. Thank you! documented in this [id number] Telephone encounter Note* Telephone Encounter - Dexter Heather Norberto - 02/16/2023 9:38 AM EDT [facility] wanting to know if they can dispense Metoprolol SUCC- ER 100 mg instead ofthe Toprol XL 100 mg, pt's insurance will only cover the generic brand. Please contact [employer] [phone] use Re:[phone]. Thank you [employer] Work Phone: [phone] 337-762407-18-2023 Hospital Discharge instructions Patient Education 01/24/2023 10:34:12 [...] Follow these instructions at home: Medicines Take lmjr-txj-gjbgsxp and prescription medicines only as told by [...] provider. Document Revised: 09/22/2021 Document Reviewed: 09/22/2021 [employer] Patient Education 2022 [employer]. Follow Up Care 10/27/2021 12:15:55 With:TIANA GARCIA, CATHIE Ruano, URL Address: [address] [place] [address] [place] [address] When:Within 1 Year(s) [facility] 04-04-2023 Evaluation note* Encounter Date Diagnosis Assessment [...] - I48.91)stable. continue w present meds and vp client services. [facility] Other 03-30-2023 Evaluation + Plan noteExtracted from:Title: KRISSY post opAuthor:Daljit Gooden MDDate:10/06/22 Plan Transfer/Discharge: Transfer/Discharge Discharge when meets criteria ( To home ). Extracted from:Title:KRISSY GAAuthor:Daljit Gooden MDDate:10/06/22 Plan [place] [employer] Anesthesiologists (ASA) physical status classification: Class III. Anesthetic Preoperative Plan: Anesthesia General. Future Appointments Appointment Date:01/25/2023 10:00:00 AM Scheduled Provider:Erica Chua MD Location:[facility] Appointment Type:URO Office Visit [facility]03-30-2023 Hospital Discharge instructions Patient Education [...] 03/22/2005 Document Revised: 10/11/2018 Document Reviewed: 10/11/2018 [employer] Patient Education 2020 [employer]. 10/06/2022 10:00:07 Hemorrhoids, Ghqq-qk-Hljh Hemorrhoids Hemorrhoids are swollen veins that may [...] 3 times a day. General instructions Take ltdv-haf-wnyrjpf and prescription medicines only as told by [...] 04/04/2009 Document Revised: 07/04/2019 Document Reviewed: 11/15/2018 [employer] Patient Education 2020 [employer]. Follow Up Care 07/29/2022 15:02:48 With:Oxana IBARRA Address: [address] [place] [address] Business (1) When: Unknown Comments:Call for any problems. [facility]01-20-2023 Hospital Discharge instructions Patient Education [...] including vitamins, herbs, eye drops, creams, and dhfc-kfa-rvcjgnt medicines. Any problems you or family members [...] 06/23/2001 Document Revised: 04/18/2018 Document Reviewed: 09/06/2016 [employer] Patient Education [place]. Follow Up Care 07/05/2022 09:47:30 With:Elicia Mcmillan CNP Address: When:1 to 2 weeks Comments:Following colonoscopy. [facility] 01-17-2023 Evaluation note* Encounter [...] way. Continue follow-up with cardiology as scheduled. [facility] Other 01-11-2023 NoteCONSULTATION CONSULTATION DATE: 07/20/2022 HISTORY [...] in three months' time unless otherwise indicated.[facility] 07-20-2022 NoteCONSULTATION PROCEDURE DATE: 07/20/2022 PREOPERATIVE [...] fan-like pattern. 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 He states that such activity has [...] for re-evaluation. Patient agrees to this plan.[facility] HospitalJtxqjzdm07-75-4572 NoteCONSULTATION CONSULTATION DATE: 03/03/2022 This is a 08-fhej-mqkukkfog returning to clinic for a 3-month follow-up. [...] be followed up in the office following.[facility] HospitalFwopdhrd23-38-4696 Telephone encounter Note* Telephone Encounter - Erica Beckett - 03/01/2022 11:40 AM EDT Patient has not been seen by this specialist in more than 1 year. Please contact patient to schedule office visit. Thank you [id number] Miscellaneous Notes* Telephone Encounter - Erica Beckett - 03/01/2022 11:40 AM EDT Patient has not been seen by this specialist in more than 1 year. Please contact patient to schedule office visit. Thank you documented in this [id number] Telephone encounter Note* Telephone Encounter - Irina Nguyen - 01/18/2022 7:23 AM EDT Last visit with Cardiology (Emperatriz Carnes) on 09/03/2020 Requested Prescriptions Pending Prescriptions Disp Refills metoprolol (TOPROL-XL) 100 mg XL tablet [Pharmacy Med Name: METOPROLOL SUCCINATE ER TABS 100MG] 90 Tablet 3 Sig: TAKE 1 TABLET DAILY No PCP on file No PCP on file [id number] Miscellaneous Notes* Telephone Encounter - Irina Nguyen - 01/18/2022 7:23 AM EDT Last visit with Cardiology (Emperatriz Carnes) on 09/03/2020 Requested Prescriptions Pending Prescriptions Disp Refills metoprolol (TOPROL-XL) 100 mg XL tablet [Pharmacy Med Name: METOPROLOL SUCCINATE ER TABS 100MG] 90 Tablet 3 Sig: TAKE 1 TABLET DAILY No PCP on file No PCP on file documented in this [id number] Telephone encounter Note* Telephone Encounter - Anirudh Gonzalez RPh - 11/29/2021 3:11 PM EDT Pt called back, will talk to his [facility] to get refill [facility] Work Phone: [phone] Miscellaneous Notes* Telephone Encounter - Anirudh Gonzalez RPh - 11/29/2021 3:11 PM EDT Pt called back, will talk to his [facility] to get refill * Telephone Encounter - Asia Laguna RN - 11/29/2021 2:52 PM EDT Left message for pt to return call to ACC at [phone] 2nd attempt * Telephone Encounter - Cathie Whitley RN - 11/26/2021 2:46 PM EDT Left message for patient to please call back. 1st attempt * Telephone Encounter - Anirudh Gonzalez RPh - 11/25/2021 9:37 AM EDT [facility] Staff, Please contact pt re the following issue. Per 09/03/21 note pt goes to [facility] , they should refill, will deny Thanks! * Telephone Encounter - Tamiko Rodriguez PharmD - 11/24/2021 4:09 PM EDT Requested Prescriptions Pending Prescriptions Disp Refills warfarin (COUMADIN) 5 MG tablet 90 Tablet 0 Sig: Take 1 Tablet by mouth daily. No PCP on file No PCP on file documented in this [id number] Telephone encounter Note* Telephone Encounter - Asia Laguna RN - 11/29/2021 2:52 PM EDT Left message for pt to return call to [facility] at [phone] 2nd attempt [employer] Work Phone: [phone] 888-772405-20-2022 Telephone encounter Note* Telephone Encounter - Cathie Whitley RN - 11/26/2021 2:46 PM EDT Left message for patient to please call back. 1st attempt [id number] Telephone encounter Note* Telephone Encounter - Anirudh Gonzalez RPh - 11/25/2021 9:37 AM EDT [facility] Staff, Please contact pt re the following issue. Per [facility]03/[facility] , they should refill, will deny Thanks! [id number] Telephone encounter Note* Telephone Encounter - Tamiko Rodriguez PharmD - 11/24/2021 4:09 PM EDT Requested Prescriptions Pending Prescriptions Disp Refills warfarin (COUMADIN) 5 MG tablet 90 Tablet 0 Sig: Take 1 Tablet by mouth daily. No PCP on file No PCP on file [facility] Work Phone: [phone]) 463-517705-18-2022 Miscellaneous Notes* Telephone Encounter - Tamiko Rodriguez [...] [Pharmacy Med Name: POTASSIUM CHLORIDE ER (DISP) [id number]] 180 Tablet 3 Sig: TAKE 1 TABLET TWICE A DAY Refused Prescriptions Disp Refills warfarin (COUMADIN) 5 MG tablet [Pharmacy Med Name: WARFARIN TABS 5MG] 90 Tablet 3 Sig: TAKE 1 TABLET DAILY (INR: 2.33) No PCP on file No PCP on file documented in this encounterMetroHealthEvaluation + Plan note Future Appointments Appointment Date:11/01/2022 09:45:00 AM Scheduled Provider:Min Tristan Jr., MD Location:[facility] Appointment Type:URO Office Visit Diagnostic Tests Pending * PSA Total 10/27/21 [facility] evaluation + Plan note Future Appointments Appointment Date:10/06/2022 09:00:00 AM Scheduled Provider: Location:[facility] Appointment Type:Surgery FT Appointment Date:11/01/2022 09:45:00 AM Scheduled Provider:Min Tristan Jr., MD Location:[facility] Appointment Type:URO Office Visit [facility] Evaluation + Plan note Future Appointments Appointment Date:01/30/2024 10:00:00 AM Scheduled Provider:CATHIE HERNANDEZ PA-C Location:[facility] Appointment Type:URO Office Visit [facility] evaluation + Plan note Future Appointments Appointment Date:01/30/2024 10:00:00 AM Scheduled Provider:CATHIE HERNANDEZ PA-C Location:[facility] Appointment Type:URO Office Visit Diagnostic Tests Pending * U[facility] (paroxysmal atrial [...] present documented in this encounter [facility]Evaluation noteNo [facility] [employer] Other Evaluation note* Diagnosis Persistent atrial fibrillation [...] encounter [facility]HealthEvaluation noteNo assessment information available[facility] Work Phone: Evaluation note* Diagnosis PAF [...] Date Resolution Status Bronchitis acute [facility] Work Phone: Evaluation note* Diagnosis Onset Date Resolution Status Admit Date A-fib acuteAugust 2024 9:16amBilateral primary osteoarthritis of hipacuteAugust 2024 9:16amBilateral primary osteoarthritis of kneeacuteAugust 2024 9:16amLumbar painacuteAugust 2024 9:16amMedicare annual wellness visit, subsequentacuteAugust 2024 9:16amOSA on CPAPacuteAugust 2024 9:16am [facility] Work Phone: Evaluation note* Diagnosis PAF [...] pilonidal cyst removalHospitalization HistoryNo Hospitalization history information [facility] Other Hospital course Narrative No data available for this section [facility] Discharge instructions No data available for this section [facility] Discharge instructionsAmbulatory Orders* Referral to Orthopedic Surgery Location: None [facility] Work Phone: Progress note No data available for this section [facility] Reason for referral (narrative)No reason for referral information availableMer[facility] Work Phone: Summary Purpose Family History [...] 2025 9:1 6am Medicare annual wellness visit, [facility] February 12, 2025 9:16am JAVED on [...] 2025 9:1 6am Medicare annual wellness visit, [facility] nt February 12, 2025 9:16am JAVED on [...] and content) DATE CREATED AUTHOR 01/02/2018 [facility] DATE CREATED AUTHOR AUTHOR'S ORGANIZ ATION 04/24/2018 [employer] DATE CREATED AUTHOR AUTHOR'S ORGANIZ ATION 05/06/2018 [facility] DATE CREATED AUTHOR AUTHOR'S ORGANIZ ATION 12/16/2022 [facility] DATE CREATED AUTHOR AUTHOR'S ORGANIZ ATION 01/25/2024 [facility] DATE CREATED AUTHOR AUTHOR'S ORGANIZ ATION 04/15/2024 [facility] DATE CREATED AUTHOR AUTHOR'S ORGANIZ ATION 05/28/2024 [facility] DATE CREATED AUTHOR AUTHOR'S ORGANIZ ATION 05/03/2025 [facility] DATE CREATED AUTHOR AUTHOR'S ORGANIZ ATION 05/11/2025 [facility] EPIC Reason for Visit (unrecogniz ed section and content) ReasonCommentsRefillReasonOnset FokmIyknxrgwNfyqml30/18/2022ReasonOnset Date HsuuxfufRmdmea2023ReasonOnset DateCommentsQuestion about medication 02/16/2023ReasonOnset ZgtgLevheeppCxpvcv45/10/2023ReasonCommentsAtrial fibrillation/flutterReasonCommentsNew patient, to establish relationshipReason Onset YzpqIurlgwmfVimjyw61/30/2025ReasonOnset OtyiUhcsfrmcXzpoks98/24/2025Reason CommentsPain Care Teams (unrecognized sec tion and content) Team MemberRelationshipSpecialtyStart DateEnd Date Emperatriz Carnes, [address] [place] [address] EqptcaykoPpbfvzgcgjffeblcs39/12/27Team MemberRelationshipSpecialtyStart DateEnd Date Emperatriz Carnes, DO [address] [place] [address] XdfgkbuvuQkhdgkvxtfaltmthq34Team MemberRelationshipSpecialtyStart DateEnd Date Emperatriz Carnes, DO [address] [place] [address] OqyauczkzQvrcxmixykaeltobt36Team MemberRelationshipSpecialtyStart DateEnd Date Emperatriz Carnes, DO [address] [place] [address] KoicmvhlnCsynsanyndbdypgyu99Team MemberRelationshipSpecialtyStart DateEnd Date Emperatriz Carnes, DO [address] [place] [address] WtfqwqpqzAlrmuyyxzfmiextzq80Team MemberRelationshipSpecialtyStart DateEnd Date Deyvi Emperatriz, DO [address] [place] [address] EzvvcwuliNrpgplonqpirjrpbb85/20Team MemberRelationshipSpecialtyStart DateEnd Date Deyvi Emperatriz, DO [address] [place] [address] LmoqupettScwtmiuontpdgiulu07/20Team MemberRelationshipSpecialtyStart DateEnd Date Emperatriz Carnes, DO [address] [place] [address] HexknxzzqEswptisdmeqsfgzlf87/6/20Team MemberRelationshipSpecialtyStart DateEnd Date Emperatriz Carnes DO [address] [place] [address] BprmlrnzwUxhbcdtymnnxnpjep59/6/20 Team Status: Active Member Role Status Dates [...] MemberRelationshipSpecialtyStart DateEnd Date Emperatriz Carnes DO [address] [place] [address] ZuaaftzbfHwxgodrpzneeqqqhi73/6/20Team MemberRelationshipSpecialtyStart DateEnd Date Emperatriz Carnes DO [address] [facility] [place] [address] AltauswycVsrdywbrpzyatydwn24/6/20 Team Status: Active Member Role Status Dates [...] MemberRelationshipSpecialtyStart DateEnd Date Emperatriz Carnes DO [address] [place] [address] AkkekefazLjldxeaasgtixfkrm14/6/20 Prasanth Perez MD [address] [place] [address] PhysicianCardiac Ggvuevqemrbdjpcdw79/2/24Team MemberRelationshipSpecialtyStart DateEnd Date Deyvi Emperatriz, [address] [place] [address] UjdkxcqrtVjqofuwbyfgcwxcnt46/6/20 Prasanth Perez MD [address] [place] [address] PhysicianCardiac Tbiwuzhntemdzybbk89/2/24 Team Status: Active Member Role Status Dates [...] 2025Team MemberRelationshipSpecialtyStart DateEnd Date Deyvi Emperatriz [address] [facility] [place] [address] WokmeiqsaUpmjtlzbfapfrkzya27/6/20 Prasanth Perez MD [address] [facility] [place] [address] PhysicianCardiac Lcdyefdeviogcitnh65/2/24 Team Status: Active Member Role/Relationship Status Dates [...] DateEnd Date Donald Lizarraga MD [address] [place] [id number] PCP - GeneralFamily Asqytqju21/29/25Team MemberRelationshipSpecialtyStart Date End Date Donald Lizarraga MD [address] [facility] [place] [address] PCP - GeneralFamily Vcwmdllt53/29/25 Goals (unrecognized section and content) Goals may [...] BE BASED ON THE PRIMARY CLINICAL RECORDS. [facility] [employer] [facility]. provides no warranty or guarantee of the accuracy or completeness of information in this document.
--- NOTE | 2025-05-21 10:17 | PM.CN ---
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 Pain today in right hip 10/10 stabbing intense deepa increasing with standing, walking, lifting, housework, activity, ADLs. denies falls/injury, does utilize cane. Patient noting worsening stabbing pain to groin and RUE. underwent lumbar MRI with results below. noting significant improvement in low back and right radicular pain post right L2,3,4 TFESI. Since last visit he was evaluated by Dr Alcala who recommended pt undergo left hip replacement with Dr Auguste, has not scheduled at this time as he is postponing until next year due to prior commitments. pt would like to discuss a repeat hip injection as he noted >50% improvement for at least 4 months from prior injection. cc:: CC: Trista Lyman NP Review of Systems ROS Musculoskeletal Reports: back pain, extremity pain and joint pain PFSH PFSH Medical History Atrial fibrillation ?I48.91 - Unspecified atrial fibrillation (ICD-10) Low back pain ?M54.50 - Low back pain, unspecified (ICD-10) Osteoarthritis ?M19.90 - Unspecified osteoarthritis, unspecified site (ICD-10) Colon cancer ?C18.9 - Malignant neoplasm of colon, unspecified (ICD-10) Obesity ?E66.9 - Obesity, unspecified (ICD-10) Kidney stone ?N20.0 - Calculus of kidney (ICD-10) Enlarged prostate ?N40.0 - Benign prostatic hyperplasia without lower urinary tract symptoms (ICD-10) Pulmonary embolism ?I26.99 - Other pulmonary embolism without acute cor pulmonale (ICD-10) Sleep apnea ?G47.30 - Sleep apnea, unspecified (ICD-10) High cholesterol ?E78.00 - Pure hypercholesterolemia, unspecified (ICD-10) Hypertension ?I10 - Essential (primary) hypertension (ICD-10) Surgical History S/P TURP ?Z90.79 - Acquired absence of other genital organ(s) (ICD-10) History of colon resection ?Z90.49 - Acquired absence of other specified parts of digestive tract (ICD-10) Social History Little interest or pleasure in doing things: not at all Feeling down, depressed, or hopeless: not at all Meds Home Medications and Allergies Home Medications ?Medication ?Instructions ?Recorded ?Confirmed ?Type atorvastatin 20 mg tablet 20 mg PO QDAY 12/22/22 05/12/25 History calcium carbonate 300 mg PO DAILY 12/22/22 05/12/25 History flecainide 100 mg tablet 100 mg PO Q12H 12/22/22 05/12/25 History hydrochlorothiazide 25 mg tablet 25 mg PO QDAY 12/22/22 05/12/25 History lisinopril 40 mg tablet 40 mg PO QDAY 12/22/22 05/12/25 History loratadine 10 mg tablet 10 mg PO DAILY 12/22/22 05/12/25 History metoprolol succinate 100 mg 100 mg PO QDAY 12/22/22 05/12/25 History tablet,extended release 24 hr multivitamin 1 tab PO DAILY 12/22/22 05/12/25 History potassium chloride 20 mEq 20 meq PO BID 12/22/22 05/12/25 History tablet,extended release(part/cryst) (Klor-Con M) warfarin 5 mg tablet 5 mg PO QDAY 12/22/22 05/12/25 History gabapentin 300 mg capsule 900 mg PO BID 01/17/24 05/12/25 History baclofen 10 mg tablet 10 mg PO TID PRN pain 06/25/24 05/12/25 History hydrocodone 5 mg-acetaminophen 325 1 tab PO BID PRN pain #60 tabs 04/17/25 05/12/25 Rx mg tablet hydrocodone 7.5 mg-acetaminophen 1 tab PO BID PRN pain #60 tabs 05/13/25 Rx 325 mg tablet Allergies Allergy/AdvReac Type Severity Reaction Status Date / Time No Known Drug Allergies Allergy Verified 05/12/25 07:43 Exam Constitutional Documenting provider has reviewed patient's vital signs: yes Common normals: no apparent distress, oriented x3, healthy appearing, alert and well nourished General appearance: cooperative HENMT Common normals: normocephalic, hearing grossly normal bilaterally and moist oral mucous membranes Head and scalp: normocephalic Eye Common normals: PERRL Pupil: PERRL Neck & C-Spine Common normals: full ROM General: normal visual inspection Chest Common normals: inspection of chest normal Respiratory Common normals: normal respiratory effort, no retractions and no use of accessory muscles Back & Pelvis Lumbar spine/lower back: ROM not limited, no pain with ROM and no lumbar spinal tenderness Extremity Right lower extremity: hip joint Other: moderate pain with internal/external rotation of right hip Neuro Common normals: oriented x3 Sensorium/orientation: alert Psych Common normals: mental status grossly normal, thought process normal, cooperative, affect normal, speech normal and activity/motor behavior normal Speech: normal speech Thought process: normal thought process Results Imaging Lumbar MRI: Attestation: I have reviewed the pertinent imaging results. Radiologist's impression: Lumbar vertebral heights and alignment maintained. 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 Otherwise minimal multilevel intervertebral space narrowing elsewhere. There is a cleft of T2 signal involving the inferolateral aspect of the L2 vertebral body with corresponding diminished T2 and T1 signal and reactive edema noted suspicious for a late subacute fracture versus hypertrophic syndesmophytosis. An adjacent reactive changes. Otherwise bone marrow signal is grossly unremarkable. Multilevel facet arthropathy. Conus medullaris terminates normally at mid L2 level. Paraspinal soft tissues unremarkable. T12-L1: Anterior marginal endplate osteophytosis. Minimal facet arthropathy. No significant disc disease or canal or neural from narrowing identified. L1-2: Bulky right lateral endplate osteophytosis and far lateral lateral syndesmophytosis and hypertrophic spurring. This appears to displace the exiting right L1 nerve roots. Otherwise no significant disease canal narrowing or left neural from narrowing. There is moderate right foraminal narrowing due to encroaching osteophytosis. L2-3: Minimal broad-based disc bulge with moderate facet arthropathy and ligamentum flavum hypertrophy . There is moderate central canal stenosis. Zkyi-gr-ytozugfk right moderate left neural foraminal narrowing. Bulky right anterolateral osteophytosis and spurring noted. L3-4: Broad-based disc bulge with right foraminal to extra foraminal zone annular fissure. Otherwise mild foraminal narrowing. Canal is patent. Moderate facet arthropathy. There is a left-sided synovial cysts at the dorsal aspect of the L4 facet joint L4-5: Broad-based disc bulge with right foraminal zone to extra foraminal zone T2 hyperintensity intensity suggestive of focal fissuring. Moderate severe facet arthropathy. There is moderate to severe right subarticular recess narrowing, correlate with possible right L5 radiculopathy. Ugxc-en-ppxbwwcu left subarticular zone narrowing. Otherwise moderate right-sided and mild left-sided neural from narrowing. Pwbc-qw-ttkafwnt central canal stenosis. 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 Mild left subarticular zone effacement. Otherwise moderate severe right and ekbl-mw-fhhjdxxv left-sided neural foraminal narrowing. Bilateral facet arthropathy, moderate. Additional Findings Additional findings: If on a controlled substance or opioids, I have checked an [place] report on this patient and there are no aberrancies noted in the prescribing history.??If on a controlled substance or opioid a drug screen was completed and reviewed within the last year, and if there has not been a drug screen completed we ordered one today to monitor higher risk, state monitored pain medication use. As part of providing excellent, safe, comprehensive care, the following was completed at our patient's visit: 1. A medication reconciliation and review to ensure accurate knowledge of current/active medications, including asking our patients to inform us about any qgpm-icp-nfptgka medications or herbal remedies/nutritional supplements/alternative remedies. 2. A review to specifically ensure our patients have had annual screening for screening for depression, screening for tobacco use, and screening for unhealthy alcohol use. For concerning screenings had a discussion with the patient, provided patient education, and recommended follow-up with primary care provider when appropriate. If patient noted with a risk of falling, they received education on strength, gait, and balance training to prevent future risk of falling. Portions of this note may have been carried over from the previous visit and updated as appropriate. Please note this office utilizes paper charting in addition to the electronic medical record. A list of current medications, vitals, and PMH is available there as the clinical staff outside of myself do not have access to [employer] charting during the clinic day operations. As part of providing quality comprehensive care the current medications, vitals, and PMH were reviewed in the paper chart. Assessment and Plan Assessment and Plan (1) Osteoarthritis of right hip: Qualifiers: Osteoarthritis type: primary Qualified Code(s): M16.11 - Unilateral primary osteoarthritis, right hip (2) Lumbar radiculopathy: (3) Lumbar stenosis with neurogenic claudication: (4) Lumbar degenerative disc disease: (5) Chronic use of opiate drug for therapeutic purpose: Plan The patient has had over 3 months of moderate to severe low back and right hip pain with functional impairment and inadequate response to conservative care including NSAIDS (unless there are contraindication such as concurrent blood thinners), multiple oral or topical pain medications, and home exercise program/physical therapy.? Patient has completed >6 weeks of guided home exercise program and/or formal physical therapy program without relief of their symptoms.? The Oswestry Disability Index was completed, and the patient scored a 58%.? repeat right hip injection under fluoroscopy continue norco 7.5-325mg bid prn moderate to severe pain continue gabapentin 900mg bid cannot take nsaids, on coumadin f/u 2 weeks after hip injection
== END 2025-05-21 09:46 | disposition home or self-care (01) ==
LOC: PM 09:46
PROVIDERS: PCP Family Medicine; Visit Provider Nurse Practitioner
DX: M16.11 Unilateral primary osteoarthritis, right hip (principal); M54.16 Radiculopathy, lumbar region; M48.062 Spinal stenosis, lumbar region with neurogenic claudication; M51.369 Other intervertebral disc degeneration, lumbar region without mention of lumbar back pain or lower extremity pain; Z79.891 Long term (current) use of opiate analgesic
CPT/HCPCS: G0463

== ENCOUNTER 2025-06-02 07:31 | Day surgery (SDC) | payer MEDICARE, SELFPAY ==
--- OUTSIDE RECORDS SUMMARY | 2025-05-11 19:00 | XMS_ITS ---
Author Name Auto Generated Organization OHIP Care Team Providers Care Installation Specialist Name Role Phone JR. BAXTER GEORGE C Attending Physician Unav ailkahlil BAXTER JR., GEORGE C Unavailable Unavaila ble Jesus Alberto JACKSON, Andwilfredo Viera Attending Physic christopher Unavailable Jesus Alberto JACKSON, Andrius Viera Attending Physic christopher Unavailable Jesus Alberto JACKSON, Andwilfredo Viera Attending Physic christopher Unavailable Jesus Alberto JACKSON, Andrius Viera Attending Physic christopher Unavailable Jesus Alberto JACKSON, Andrius Viera Attending Physic christopher Unavailable Jesus Alberto JACKSON, Andrius Viera Attending Physic christopher Unavailable Jesus Alberto JACKSON, Andrius Viera Attending Physic christopher Unavailable ENCOUNTERS ADMIT/DISCHARGE ACCOUNT NUMBER ADMITTING ENCOUNTER CLASS LOC ATION SOURCE 05/12/2025/05/12/2025 [id number] [facility] 05/07/2025/[id number]:[facility]05/07/2025/[id number]:[facility]ITALORTHLuis Fernandobanner del e web[facility] medical centeralfredo [facility]04/28/2025/[id number] [facility]04/14/2025/04/14/2025 [id number] [facility] 03/24/2025/09/[id number] [facility]12/23/2024/[id number] [facility]12/16/2024/12/16/2024 [id number] [facility] 11/25/2024/[id number] [facility] PAYERS ENCOUNTER GUARANTOR PAYER SUBSCRIBER SOURCE 05/12/2025 Rosey MalloryB: [place] [id number] Primary Insurance:Medicare Policy Number: Effective Date:9908-77-49Sgb n Name:[facility] Yusra [id number], [place] [address]AC: Rosey Ledy NoeDOB: [id number] [place] [address] [facility] 05/12/2025 Rosey ChurchDOB: [place] [id number] Secondary Insurance:AARPPoli cy Number: Effective Date:0738-72-62Cfn n Name:[facility] [address], [place] [address]IW: Rosey D NoeDOB: [id number] [place] [address] [facility] 05/07/2025 ROSEY Villafana NOEDOB: [place] [address]Dpv: () Primary Insurance:MEDICARE Policy Number: [id number] ve Date:2605-06-67Vov n Name:Medicare ROSEY D NOEDOB: [id number] [place] [address] [facility] 05/07/2025 ROSEY D NOEDOB: [place] [address]Qla: (HP) Secondary Insurance:[facility] cy Number: [id number] ve Date:2024-07-10 ROSEY D NOEDOB: [id number] [place] [address] [facility] 05/07/2025 ROSEY D NOEDOB: SALLIE S[place], [facility]Wkr: () Primary Insurance:MEDICARE Policy Number: [id number] ve Date:0976-04-45Zwi n Name:Medicare ROSEY D NOEDOB: [id number] [place] [address] [facility] 05/07/2025 ROSEY D NOEDOB: [place] [address]Bvx: () Secondary Insurance:[facility] cy Number: [id number] ve Date:2024-07-10 ROSEY D NOEDOB: [id number] [place] [address] [facility] 04/28/2025 Rosey D NoeDOB: [place] [address] Primary Insurance:Medicare Policy Number: Effective Date:1341-95-09Ryb n Name:LOUISE Meng [id number], [place] [address]AM: Rosey D NoeDOB: [id number] [place] [address] [facility] 04/28/2025 Rosey D NoeDOB: [place] [address] Secondary Insurance:Matt cy Number: Effective Date:8780-10-81Ouq n Name:DORIS Meng [id number] [address]EV: Rosey D NoeDOB: [id number] [place] [address] [facility] 04/14/2025 Rosey D NoeDOB: [place] [address] Primary Insurance:Medicare Policy Number: Effective Date:8668-95-16Nee n Name:ROXANNA Yusra Cherry817444SdxjkcsqDOTH[place] [address]EF: Rosey D NoeDOB: [id number] [place] [address] [facility] 04/14/2025 Rosey D NoeDOB: [place] [address] Secondary Insurance:Matt cy Number: Effective Date:8256-32-89Aac n Name:DORIS Meng [id number], [place] [address]KQ: Rosey D NoeDOB: [id number] [place] [address] [facility] 03/24/2025 Rosey D NoeDOB: [place] [address] Primary Insurance:Medicare Policy Number: Effective Date:2297-69-66Ptc n Name:[place] [address]AL: Rosey D NoeDOB: [id number] [place] [address] [facility] 03/24/2025 Rosey D NoeDOB: [place] [address] Secondary Insurance:Matt cy Number: Effective Date:0757-72-13Bkq n Name:DORIS Meng [id number] [address]CA: Rosey D NoeDOB: [id number] [place] [address] [facility] 12/23/2024 Rosey D NoeDOB: [place] [address] Primary Insurance:Medicare Policy Number: Effective Date:7910-61-28Clc n Name:[place] [address]HT: Rosey D NoeDOB: [id number] [place] [address] [facility] 12/23/2024 Rosey D NoeDOB: [place] [address] Secondary Insurance:AURELIANOCALOSmadelyn cy Number: Effective Date:2165-43-94Lnf n Name:DORIS Meng [id number], [place] [address]TG: Rosey D NoeDOB: [id number] [place] [address] [facility] 12/16/2024 Rosey D NoeDOB: [place] [address] Primary Insurance:Medicare Policy Number: Effective Date:7806-71-44Tmw n Name:[place] [address]LC: Rosey D NoeDOB: [id number] [place] [address] [facility] 12/16/2024 Rosey D NoeDOB: [place] [address] Secondary Insurance:Matt cy Number: Effective Date:9661-27-78Eek n Name:DORIS Meng [id number] [address]DF: Rosey D NoeDOB: [id number] [place] [address] [facility] 11/25/2024 Rosey D NoeDOB: [place] [address] Primary Insurance:Medicare Policy Number: Effective Date:9620-59-52Uks n Name:[facility] Yusra [id number], [place] [address]JT: Rosey D NoeDOB: [id number] [place] [address] [facility] 11/25/2024 Rosey D NoeDOB: [place] [address] Secondary Insurance:Matt cy Number: Effective Date:1534-50-54Ncv n Name:DORIS Meng [id number], [place] [address]XP: Rosey D NoeDOB: [id number] [place] [address] [facility]
--- OUTSIDE RECORDS SUMMARY | 2025-06-02 07:34 | XMS_ITS | Clinical Summary ---
Author Organization [facility] Address [address] [place] [address] Care Team Providers Care Sugar Sampler Name Role Phone Rocio Bagley MD Primary Care Provider [phone] Allergies No known active allergies Medications MedicationSigDispense QuantityRefillsLast FilledStart DateEnd DateStatus amLODIPine (NORVASC) 5 mg tablet Take 5 mg by mouth once daily.Active aspirin, enteric coated (ASPIRIN, ENTERIC COATED) 81 mg EC tablet Take 81 mg by mouth once daily.Active carvedilol (COREG) 25 mg tablet Take 25 mg by mouth twice daily with meals.Active [place]-3 Fatty Acids-Vitamin E (FISH OIL) 1,000 mg [...] capsule 12/07/2014ctive Active Problems ProblemNoted DateDiagnosed DateColon pittyy1411/07/2014 Family History Medical HistoryRelationCommentsLung cancer [Other]FatherLungBreast CancerMother Colon CancerMotherwith liver metsRelationStatusCommentsDaughterAliveFather (Age 56)Lung CancerMotherDeceased (Age 75)Colon Cancer w/liver mets/Breast CancerSister 1AliveSister 2Alive Social History Tobacco UseTypesPacks/DayYears UsedDateSmoking Tobacco: NeverSmokeless Tobacco: NeverAlcohol UseStandard Drinks/WeekCommentsNo0 (1 standard drink = 0.6 oz pure alcohol)Sex and Gender InformationValueDate RecordedSex Assigned at BirthNot on fileLegal LjvYhlg0910/24/2014 2:06 PM EDTGender IdentityNot on fileSexual OrientationNot on file Last Filed Vital Signs Vital SignReadingTime TakenCommentsBlood Ibqnfzbn43/6506 1:54 PM EDT Hboob602712/22/2014 1:54 PM TIFQatvbewmedx76.6 ??C (97.8 ??F)12/22/2014 1:54 PM EDTRespiratory Rate--Oxygen Saturation--Inhaled Oxygen Concentration--Weight 134.3 kg (296 lb)12/22/2014 1:54 PM JKNDnfftc531.4 cm (6' 0.99 )12/22/2014 1:54 PM EDTBody Mass Index39.0612/22/2014 1:54 PM EDT Plan of Treatment Health MaintenanceDue DateLast DoneCommentsAnxiety Bwceojbio47/02/1972Depression Htszagpej21/02/1972Hepatitis C Goiqfbydb37/02/1972DTaP,Tdap,Td Vaccine (1 - Tdap)1972Lipid Kzgpulxfc62/02/1989CT Zsuxzhrjhyvg45/02/1999Cologuard (FIT-DNA)09/08/19986323Pgeyxdjaxcl88/02/1999Colorectal Cancer Radlaixcb88/02/1999 Diabetes Yjpbpjzds10/02/1999Fecal Occult Blood09/08/19981666Jevptrhyvzfpf58/02/1999 Pneumococcal Vaccine: 50+ (1 of 1 - PCV)09/09/2003Shingrix Vaccine (1 of 2) 09/09/2003Advance Directive Mrrzrygunf63/01/2025ovid-19 Vaccine (1 - 2024- season)2025Influenza Vaccine (#1)2025RSV Vaccine (1 - 1-dose 75+ series)2028 Insurance Care Teams Team MemberRelationshipSpecialtyStart DateEnd Date Rocio Bagley MD [address] [facility] [place] [id number] PCP - GeneralFamily Medicine10/24/14
--- OUTSIDE RECORDS SUMMARY | 2025-06-02 07:34 | XMS_ITS | Clinical Summary ---
Author Organization [facility] Address [address] [facility] [place] [address] Care Team Providers Care Health Companion Name Role Phone Emperatriz Carnes DO Unavailable Carlos Nuñez MD Unavailable [phone] Source Comments The following information is NOT included in Care Everywhere downloads:Psychiatric notes, ECG results, Cardiac Rehab notes, Pulmonary Function notes, data from [employer] (includes but not limited toPregnancy data,audiograms, eye exams, pre-surgical evaluation notes, well-child exam data).[facility] Allergies Active AllergyReactionsCriticalityNoted DateCommentsOther (Review Comments!) 12/28/2018 Medications MedicationSigDispense QuantityRefillsLast FilledStart DateEnd DateStatus atorvastatin (LIPITOR) 20 MG tablet Indications:Preop cardiovascular exam,PAF (paroxysmal atrial fibrillation), Anticoagulated,JAVED on CPAP,Obesity, unspecified classification, unspecified obesity type, unspecified whether serious comorbidity ntqyepo6911/19/2018Active hydrochlorothiazide (HYDRODIURIL) 25 MG tablet Indications:Preop cardiovascular exam,PAF (paroxysmal atrial fibrillation), Anticoagulated,JAVED on CPAP,Obesity, unspecified classification, unspecified obesity type, unspecified whether serious comorbidity jzrzwod5011/19/2018Active lisinopril (PRINIVIL, ZESTRIL) 40 MG tablet Indications:Preop cardiovascular exam,PAF (paroxysmal atrial fibrillation), Anticoagulated,JAVED on CPAP,Obesity, unspecified classification, unspecified obesity type, unspecified whether serious comorbidity pvekyws8611/19/2018Active loratadine (CLARITIN) 10 MG tablet Indications:Preop cardiovascular [...] unspecified obesity type, unspecified whether serious comorbidity xutddbl44 mL.Active AMLODIPINE BESYLATE ORAL amLODIPine Besylate Not-TakingActive sildenafil citrate (VIAGRA) 25 MG tablet Take 25 mg by mouth.01/24/2023ctive Sodium Sulfate-Mag Sulfate-KCl (Sutab) 6416-579-080 MG TABS Take by mouth.07/29/2022ctive potassium chloride [...] Tablet 5Active Active Problems ProblemNoted DateDiagnosed DateErectile gdkgzncxquu63/20/202309/pnea, sleepsymptomatic microscopic zoteisntf95/ Family history of colon otyibt36/History of colorectal cancer /1773Hvlgvsavsufxkz67/25/2021levated PSA05/27/2020Arthritis 05/27/2020Hypertensive hkezzekv66/21/2019Atrial jdneigzipxdd81/21/2019Malignant tumor of colon11/07/2014 Resolved Problems ProblemNoted DateDiagnosed DateResolved DatePAF (paroxysmal atrial fibrillation) Urinary dlobrwc72Nocturia05/27/2020 03/29/2023Increased frequency of qnrrgnlve24Incomplete emptying of snfctbu95ross zozgxsumu77PH with urinary dihxgswwomo35 Encounters DateTypeDepartmentCare GprlPoolvrnjzyy91/24/2025Refill [facility] Cardiology [address] [place], [place] [id number] Carlos Nuñez MD Refillfrom Last 3 Months Immunizations ImmunizationAdministration DatesNext DueInfluenza, Injectable, MDCK, Quadrivalent, Preservative Free (RCE=602)04/26/2018Influenza, injectable, adjuvanted, quadrivalent, preservative free (NCC=572)05/10/2023,05/24/2022, 05/21/2021,05/05/2020Influenza, injectable, high dose seasonal, trivalent, preservative free (WYC=819)04/29/2019Influenza, unspecified formulation (CVX=88) 04/28/2021Alycia SARS-COV-2 (COVID-19) vaccine, vector non-replicating, recombinant spike protein-Ad26, preservative free, 0.5 mL (NWP=841)05/26/2021 Pfizer Monovalent (12+ yrs) SARS-COV-2 (COVID-19) vaccine, mRNA, spike protein, LNP, pres. free, 30mcg/0.3mL dose (NVZ=183)06/09/2021,09/26/2020,09/05/2020 Pfizer Monovalent (12+ yrs) SARS-COV-2 (COVID-19) vaccine, mRNA, spike protein, LNP, pres. free, 30mcg/0.3mL dose, art-sucrose (IFA=825)12/16/2021neumococcal conjugate 13 valent (PCV13) (BEQ=458)08/18/2021neumococcal conjugate 20 valent (PCV20), polysaccharide QVD762 conjugate, adjuvant, PF (ALD=109)05/24/2023 Social History Tobacco UseTypesPacks/DayYears UsedDateSmoking Tobacco: NeverSmokeless [...] part ner or ex-partner?No03/27/2023Social Connection and Isolation PanelAnswerDate RecordedIn a typical week, how many times do you talk on the phone with family, friends, or neighbors?More than three times a week03/27/2023How often do you get together with friends or relatives?Twice a week03/27/2023How often do you attend catholic or yarsani services?Never3Do you belong to any clubs or organizations such as catholic groups, unions, fraternal or athletic groups, or school groups?Yes03/27/2023How often do you attend meetings of the clubs or organizations you belong to?More than 4 times per year03/27/2023re you , , , , never , or living with a partner? 03/27/2023Overall Financial Resource Strain (CARDIA)AnswerDate RecordedHow hard is it for you to pay for the very basics like food, housing, medical care, and heating?Not hard at all03/27/2023[facility] [place] [facility] - Occupational Stress QuestionnaireAnswerDate RecordedDo you feel stress - tense, restless, nervous, or anxious, or unable to sleep at night because yourmind is troubled all the time - these days?Not at all03/27/2023Exercise Vital SignAnswer Date RecordedOn average, how many days per week do you engage in moderate to strenuous exercise (like a brisk walk)?Patient bkelwkpm49/18/2023On average, how many minutes do you engage in exercise at this level?Patient dindihpf17/18/2023 Hunger Vital SignAnswerDate RecordedWithin the past 12 months, you worried that your food would run out before you got the money to buymore.Never true03/27/2023 Within the past 12 months, the food you bought just didn't last and you didn't have money to get more.Never true03/27/2023RAPARE - TransportationAnswerDate RecordedIn the past 12 months, has lack of transportation kept you from medical appointments or from getting medications?No03/27/2023In the past 12 months, has lack of transportation kept you from meetings, work, or from getting things needed for daily living?No03/27/2023Housing Stability Vital SignAnswerDate RecordedIn the last 12 months, was there a time when you were not able to pay the mortgage or rent on time?No03/27/2023In the last 12 months, how many places have you lived?In the last 12 months, was there a time when you did not have a steady place to sleep or slept in ashelter (including now)?No 03/27/2023EducationAnswerDate RecordedWhat is the highest level of school you have completed or the highest degree you have received?Bachelor's degree (e.g., BA, AB, BS)03/27/2023Substance UseTypesUse/WeekCommentsNeverSex and Gender InformationValueDate RecordedSex Assigned at BirthNot on fileLegal SexMale 08/09/2018 12:10 PM ESTGender IdentityNot on fileSexual OrientationNot on file Last Filed Vital Signs Vital SignReadingTime TakenCommentsBlood Gbqpgxmo576/72012/28/2018 2:42 PM EDT Lidhj976412/28/2018 2:42 PM EDTTemperature--Respiratory Rate--Oxygen Djxehnltra58% 12/28/2018 2:42 PM EDTroom airInhaled Oxygen Concentration--Udtvnc252.6 kg (321 lb)12/28/2018 2:42 PM ARIMdtgkn670 cm (6' 2 )12/28/2018 2:42 PM EDTBody Mass Index41.21012/28/2018 2:42 PM EDT Plan of Treatment Health MaintenanceDue DateLast QhljYdocdvsaCyjshraqiqs37/02/1954Hepatitis C Tziksavw82/02/1972Tdap Npyjpyw1709/09/1971Hepatitis A (HAV) Vaccine (optional start 19+ years)1972CRC Voqsemhut02/02/1999Cologuard (Stool DNA)1998 FIT1998RSV vaccine (adult) (1 - Risk 50-74 years 1-dose series)09/09/2003 Shingles (RZV) Vaccine (1 of 2)09/09/2003Hepatitis B (HBV) Vaccine (optional start 60+ years)2013nnual Wellness Visit (G0438)2019Basic Metabolic PanelCOVID-19 Vaccine ( season)2025 12/16/2021, 06/09/2021, 05/26/2021, Additional history existsInfluenza Vaccine (#1)511/07/2022, 05/24/2022, 05/21/2021, Additional history exists Qlsdevdersp56/02/432877/3Pneumococcal Vaccine(s) (50+ yrs)Completed 05/24/2023, 08/18/2021 Procedures Procedure NamePriorityDate/TimeAssociated DiagnosisCommentsBASIC METABOLIC PANEL Ljkwmls6712/28/2018 3:41 PM EDT Preop cardiovascular exam PAF (paroxysmal atrial fibrillation) (HCC) Anticoagulated JAVED on CPAP Obesity, unspecified classification, unspecified obesity type, unspecified whether serious comorbidity present from Last 3 Months or Most Recently Relevant to Health Maintenance Results * (ABNORMAL) BASIC METABOLIC PANEL (12/28/2018 3:41 PM EDT)ComponentValueRef RangeTest MethodAnalysis TimePerformed AtPathologist IsuboknfgZojqklm47(L)80 - 116 mg/dL12/28/2018 6:07 PM [facility] JJVHGCBZSJEjzhuy460201 - 148 mmol/L12/28/2018 6:07 PM [facility] LABORATORYPotassium3.93.3 - 5.3 mmol/L12/28/2018 6:07 PM [facility] LABORATORYCarbon Donkxes2934 - 30 mmol/L12/28/2018 6:07 PM [facility] GKRBJIPHMEJklwcazo50011 - 111 mmol/L 12/28/2018 6:07 PM [facility] LABORATORYBlood Urea Mekqzrpu171 - 22 mg/dL12/28/2018 6:07 PM [facility] LABORATORYCreatinine0.72(L)0.80 - 1.30 mg/dL12/28/2018 6:07 PM [facility] LABORATORYCalcium9.68.4 - 10.4 mg/dL12/28/2018 6:07 PM [facility] LABORATORYAnion Gae211 - 13012/28/2018 6:07 PM [facility] LABORATORYEstimated GFR (CKD-EPI)98>=60 mL/min/1.40lvz9112/28/2018 6:07 PM [facility] PATHOLOGY LABORATORYSpecimen (Source) Anatomical Location / LateralityCollection Method / VolumeCollection Time Received TimeBloodBLOOD SPECIMEN / Khkrslu7312/28/2018 3:41 PM EDT12/28/2018 5:14 PM EDT Narrative Authorizing ProviderResult TypeResult StatusSaima Deyvi DO98 GENERAL LABFinal ResultPerforming OrganizationAddressCity/State/ZIP CodePhone Number [facility] [address] [place] [phone] from Last 3 Months or Most Recently Relevant to Health Maintenance Insurance Care Teams Team MemberRelationshipSpecialtyStart DateEnd Emperatriz Carnes DO [address] [place] [address] WyanqerwzTucwkacuhhlvitodl48/6/20 Carlos Nuñez MD [address] [place] [address] PhysicianCardiac Pmtqggjeikinnowzd08/2/24
--- OUTSIDE RECORDS SUMMARY | 2025-06-02 07:34 | XMS_ITS | Clinical Summary ---
Author Organization [facility] Address [address] [place] [address] Phone Care Team Providers Care Three Knife Trimmer Name Role Phone Rocio Bagley MD Primary Care Provider [phone] Social History Tobacco UseTypesPacks/DayYears UsedDateSmoking Tobacco: Never AssessedSex and Gender InformationValueDate RecordedSex Assigned at BirthNot on fileLegal Sex Male06/04/2022 12:38 PM ESTGender IdentityNot on fileSexual OrientationNot on file Plan of Treatment Not on file Care Teams Team MemberRelationshipSpecialtyStart DateEnd Date Rocio Bagley MD [address] [place] [address] [place] [address] [facility]03/28/18
--- OUTSIDE RECORDS SUMMARY | 2025-06-02 07:34 | XMS_ITS | Clinical Summary ---
Author Organization [facility] Address [address], [address] [place] [address] Care Team Providers Care Pattern Duplicator Name Role Phone Unavailable Primary Care Provider Unavailabl e Allergies No known active allergies Medications No known medications Family History Medical HistoryRelationNameCommentsArthritisFatherCancerFatherCancerMother RelationNameStatusCommentsFatherMother Social History Tobacco UseTypesPacks/DayYears UsedDateSmoking Tobacco: Never AssessedSmokeless Tobacco: NeverSex and Gender InformationValueDate RecordedSex Assigned at Not on fileLegal PlqBkhd7609/24/2018 2:14 PM EDTGender IdentityNot on fileSexual OrientationNot on file Last Filed Vital Signs Vital SignReadingTime TakenCommentsBlood Pressure--Pulse--Ordcavvloap75.4 ??C (97.6 ??F)10/26/2018 2:33 PM EDTRespiratory Rate--Oxygen Saturation--Inhaled Oxygen Concentration--Ulvods175.4 kg (325 lb)10/26/2018 2:33 PM SLBAivyur058 cm (6' 2 )10/26/2018 2:33 PM EDTBody Mass Index41.7310/26/2018 2:33 PM EDT Plan of Treatment Not on file Insurance [place] [id number]
--- OUTSIDE RECORDS SUMMARY | 2025-06-02 07:34 | XMS_ITS | Clinical Summary ---
Author Organization [facility] Address [address] [place] [address] Care Team Providers Care Flight Purser Name Role Phone Rocio Bagley MD Primary Care Provider [phone] Allergies No known active allergies Medications MedicationSigDispense [...] the morning and before bedtime.Active Encounters DateTypeDepartmentCare LlroMggyfofnkzg58/29/2025 11:15 AM EDTAncillary Procedure [facility] [address] [place] [address] 05/07/2025 10:45 AM EDTOffice Visit [facility] [address] [place] [address] Jr. Mamaodu Alcala DO Primary osteoarthritis of right hip (Primary Dx); Acute right hip pain05/07/2025amboo flowsheet [facility] [address] [place] [address] Jr. Mamadou Alcala DO 05/07/2025Travelfrom Last 3 Months Social History Tobacco UseTypesPacks/DayYears UsedDateSmoking Tobacco: NeverSmokeless Tobacco: Never Tobacco Cessation:Counseling Given: Not Answered Sex and Gender InformationValueDate RecordedSex Assigned at BirthNot on file Legal IfgXprq6809/21/2022 7:40 PM EDTGender IdentityNot on fileSexual Orientation Not on file Last Filed Vital Signs Vital SignReadingTime TakenCommentsBlood Pressure--Pulse--Temperature-- Respiratory Rate--Oxygen Saturation--Inhaled Oxygen Concentration--Wcdjed693 kg (329 lb)05/02/2022 12:00 PM FALIsyoka022.4 cm (6' 1 )05/02/2022 12:00 PM EDTBody Mass Index43.411 12:00 PM EDT Plan of Treatment Health MaintenanceDue DateLast DoneCommentsCT Mfrlleewpsyv31/02/1954FIT-DNA 1953FIT1955FOBT1955 7163Qiogovpxzfpca12/02/1954OVID-19 Vaccine ( season)/03/2022, 06/09/2021, 05/26/2021, Additional history existsInfluenza Vaccine (#1)510/, 05/10/2023, 05/24/2022, Additional history yxziqxHkiglhrtvwe52/30/203303/30/2023Colorectal Cancer Dmzsujpjg90/30/2033Pneumococcal Vaccine: 65+ RghykVarrcztma09/15/2023, 08/18/2021, 04/19/2016 Procedures Procedure NamePriorityDate/TimeAssociated DiagnosisCommentsXR HIP 2 OR 3 VW WHYSIQaoeose39/29/2025 11:11 AM EDT Acute right hip pain [...] hip Authorizing ProviderResult TypeResult StatusJr. Mamadou Alcala [facility] XR PROCEDURESFinal Result from Last 3 Months Insurance Care Teams Team MemberRelationshipSpecialtyStart DateEnd Rocio Bagley MD [address] [place] [address] PCP - GeneralFamily Akdhykts68/29/25
[2025-06-02 07:53] VITALS: BP 116/66; PULSE 64; TEMP 36.2; O2SAT 98
[2025-06-02 07:59] LABS: INR 2.95; Prothrombin Time 28.1 sec (9.0-11.6)
[2025-06-02 08:53] VITALS: BP 124/70; PULSE 72; O2SAT 98
[2025-06-02 08:55] VITALS: BP 132/74; PULSE 76; O2SAT 98
[2025-06-02] MEDS: LIDOCAINE HCL 2% 400 MG/20 ML MDV INJ (08:55)
[2025-06-02] MEDS: BUPIVACAINE HCL 0.25% PF 25 MG/10 ML VIAL 4 ML INJ (08:55)
[2025-06-02] MEDS: IOHEXOL 240 MG/ML - 10 ML VIAL INJ (08:55)
[2025-06-02] MEDS: METHYLPREDNISOLONE ACETATE 40 MG/ML VIAL INJ (08:56)
--- NOTE | 2025-06-02 08:57 | W.PM.PROCNOT ---
Date of procedure: 06/02/25 Pre-op diagnosis: Pain due to right hip osteoarthritis Post-op diagnosis: same as pre-op Procedure: Procedure: Right hip injection Medications: Bupivacaine 0.25% 4cc, depomedrol 40mg I explained the details of the procedure to the patient including the risks, benefits and alternatives. We had an informed discussion and the patient verbalized understanding and signed the consent form. All questions were answered appropriately.? A time out was performed.? After obtaining a comfortable supine position, the skin overlying the hip, subtrochanteric region, and joint space were prepped with alcohol. A sterile syringe containing the above medication was attached to a 25 guage, 3.5 inch spinal needle under strict aseptic technique. X ray was used to identify the joint space and the femoral neck on the right side.? The needle was than advanced through the subcutaneous tissue after local injection of 1% lidocaine.? The contents of the syringe were gently injected without any resistance into the joint space after contrast (isovue) outlined the appropriate area. The needle was removed and pressure was applied to the injection site to decrease the incidence of ecchymosis and hematoma formation.? A sterile bandage was applied. Post procedural instructions were given to the patient. Anesthesia: Local Surgeon: Blessing Granda Pathology: none sent Condition: stable Disposition: no change
== END 2025-06-02 09:07 | disposition home or self-care (01) ==
PROVIDERS: PCP Family Medicine; Visit Provider Anesthesiology
DX: M16.11 Unilateral primary osteoarthritis, right hip (principal); M25.551 Pain in right hip; Z79.01 Long term (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
CPT/HCPCS: 20610; 36415; 77002; 85610; J0665; J1010; Q9966

== ENCOUNTER 2025-06-09 11:32 | Outpatient (RCR) | payer MEDICARE, SELFPAY | END 2025-07-09 13:05 | disposition home or self-care (01) | LOC: MM 11:32 | PROVIDERS: PCP Family Medicine; Visit Provider Internal Medicine | DX: Z51.81 Encounter for therapeutic drug level monitoring (principal); Z79.01 Long term (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; I48.91 Unspecified atrial fibrillation | CPT/HCPCS: 85610; G0463 ==

== ENCOUNTER 2025-06-18 09:59 | Outpatient (OUT) | payer MEDICARE, SELFPAY ==
--- OUTSIDE RECORDS SUMMARY | 2025-06-18 10:05 | XMS_ITS | CCD ---
Author Organization [facility] Care Team Providers Care Deli/Bakery Associate Name Role Phone PHYSICIAN, DEFAULT Unavailable Unavailable [...] Admitting Unavailable HALKER ., JEET Attending Unavailable JACKSON, DR UNA [employer] Consult[employer] Unavailable LIZARRAGA, DR [...] Care Provider Peter Carbone DO Attending Provider Jesus Alberto JACKSON, Andrius Kimberlynytpérez Attending Unavailable [...] (REVIEW COMMENTS!)] Propensity to adverse reactions to [id number] (14 sources)DecongestantDrug aqitvao57-17-4426XddimigOhio State East Hospital (11 sources)DECONGESTANTSPropensity to adverse -[phone] Parma Medical CenterComment on above:Onset Date: 05/03/2013 (3 sources)Allergies ReconciledPropensity to adverse reactionsUnkUniversity Health [facility]wood Medical Center [employer] Other (3 sources)patient allergy list reviewed by nurse or physiciaPropensity to adverse [id number]:[facility] [employer] Other (1 source)No Known Medication Allergies; Translations: [No Known Medication Allergies]Propensity to adverse reactions (disorder)[facility] Medications Current Medications MedicationDrug Class(es)DatesSig (Normalized)Sig (Original)acetaminophen 325 mg / oxyCODONE hydrochloride 5 mg oral tablet (12 sources)Opioid AgonistStart: 13-03-5152fzza 1 tablet by mouth every eight hours as neededOxycodone-Acetaminophen (Percocet) 5-325 mg tablet Active 1 TAB PO Every 8 hours as needed 0 May 05, 2025 12:00am Complies with drug therapy End: 98-18-9246liqVSALWT-acetaminophen (PERCOCET) 5-325 MG tablet Indications: Preop cardiovascular exam , PAF (paroxysmal atrial fibrillation) (HCC) , Anticoagulated , JAVED on CPAP , Obesity, unspecified classification, unspecified obesity type, unspecified whether serious comorbidity present oxycodone-acetaminophen 5 mg-325 mg tablet 0 03/29/2023 Discontinuedatorvastatin 20 mg oral tablet (20 sources)HMG-CoA Reductase InhibitorStart: 29-72-9594Oovyiyxgghtq 20 mg tablet Active 0 .ROUTE .COMPLEX 90 May 06, 2024 8:50pm TAKE 1 TABLET AT BEDTIME Complies with drug therapyStart: 04-95-7148Wflledrlybgp Active 0 .ROUTE .COMPLEX May 06, 2024 8:50pm TAKE 1 TABLET AT BEDTIMEStart: 12-20-2017 End: 47-94-8228kvmb 1 tablet by mouth once daily at bedtimeAtorvastatin 20 mg tablet Discontinued 20 MG PO Daily at bedtime October 18, 2023 12:00am May 06, 2024 8:50pm FreeTextSig: TAKE 1 TABLET AT BEDTIME; Note: Source Status: Taking; Refills: 3; Qty: 90 Tablet; Provider: Elham Chan ( ) azithromycin 250 mg oral tablet (2 sources)Macrolide AntimicrobialStart: 48-55-5819Ntluvmypmtbh 250 MG as directed Orally 2 tabs po today, then 1 tab daily x 4 more days for 5 Oct, Activebetamethasone 0.5 mg/ml / clotrimazole 10 mg/ml topical cream (18 sources)Azole Antifungal, CorticosteroidStart: 10-18-2023 End: 39-87-5905Kkbtguapkcth-Betamethasone 1-0.05 % cream Active 1 APPLIC TOPICAL Twice daily as needed for rash 451 April 04, 2024 12:18pm Complies with drug therapyStart: 57-29-9079Rqqfajhcanja-Betamethasone 1-0.05 % 1 application Externally Twice a day, as needed for 30 days Mar, Activecalcium carbonate 1250 mg oral tablet (20 sources)Start: 10-18-2023 End: 05-46-0350rklz 1 tablet by mouth once dailyCalcium Carbonate 500 mg calcium (1,250 mg) tablet Active 500 MG PO Daily October 19, 2023 12:00am Complies with drug therapyStart: 68-25-2433micz 500 mg by mouth twice dailyOs-Avery 500 [...] mg oral tablet (3 sources)Histamine-1 Receptor AntagonistStart: 04-51-1413bqjd 1 tablet by mouth once daily as neededCetirizine (Zyrtec) 10 mg tablet Active 10 MG PO Daily as needed February 12, 2025 12:00am Complies with drug therapyclotrimazole 10 mg/ml topical cream (2 sources)Azole Antifungalclotrimazole (Lotrimin) 1 % cream Apply topically in the morning and before bedtime. Activeflecainide acetate 100 mg oral tablet (20 sources)AntiarrhythmicStart: 88-53-6113txtf 1 tablet by mouth twice daily flecainide (TAMBOCOR) 100 MG tablet Indications: Persistent atrial fibrillation (HCC) Take 1 Tabletby mouth 2 times daily. 180 Tablet 3 09/27/2024 ActiveStart: 54-77-6351awwmvzclus (TAMBOCOR) 100 MG tablet Indications: Persistent atrial fibrillation (HCC) TAKE 1 TABLETTWICE A DAY 180 Tablet 3 12/28/2023 ActiveStart: 91-62-6938pdid 0.5 tablet by mouth every twelve hoursFlecainide 100 mg tablet Active MG PO October 18, 2023 12:00am FreeTextSi.5 tablet Orally every12 hrs; Note: Source Status: Taking; Provider: Elham Chan ( ) Complies with drug therapyStart: 09-03-2020 End: 50-83-8668fhas 1 tablet by mouth twice dailyflecainide (TAMBOCOR) 100 MG tablet Indications: Persistent atrial fibrillation (HCC) Take 1 Tabletby mouth 2 times daily. 180 Tablet 3 02/14/2023 05/15/2023 ActiveStart: 79-54-0966jmxt 0.5 tablet by mouth every twelve hoursFlecainide Active MG PO October 18, 2023 12:00am FreeTextSi.5 tablet Orally every 12 hrs; Note:Source Status: Taking; Provider: Elham Chan ( )take 0.5 tablet by mouth every twelve hoursFlecainide Acetate 100 MG 0.5 tablet Orally every 12 hrs Activegabapentin 300 mg oral capsule (20 sources)Anti-epileptic AgentStart: 51-89-8459Jumrpufjnw 300 mg capsule Active MG PO October 18, 2023 12:00am FreeTextSi qam and 1 qpm and 2 qhs Orally 4 times a day; Note: Source Status: Taking; Provider: Elham Chan ( ) Complies with drug therapyStart: 29-22-8404Lhdyzwhawa Active MG PO October 18, 2023 12:00am FreeTextSi qam and 1 qpm and 2 qhs Orally 4 times a day; Note: Source Status: Taking; Provider: Elham Chan ( ) Start: 57-48-0845sanfbxchaa Refills(s) 0, Neuropathy Start Date: 07/29/22 Status: OrderedStart: 51-08-5693lcqhkiwqnv Refills(s) 0 Start Date: 07/29/22 Status: Orderedtake 1 capsule by mouth every twenty-four hoursGabapentin 100 MG 1 capsule Orally Once a day ActivehydroCHLOROthiazide 25 mg oral tablet (20 sources)Thiazide DiureticStart: 02-19-2024 End: 13-95-7887Raowsszzpwpfqsiwszm 25 mg tablet Active 0 .ROUTE .COMPLEX 90 February 27, 2025 1:51pm TAKE 1 TABLET DAILY Complies with drug therapyStart: 11-19-2018 End: 87-94-2440hodi 1 tablet by mouth once dailyHydrochlorothiazide 25 mg tablet Discontinued 25 MG PO Daily October 18, 2023 12:00am February 19, 2024 11:43am FreeTextSig: TAKE 1 TABLET DAILY; Note: Source Status: Taking; Refills: 3; Qty: 90 Tablet; Provider: Elham Chan ( )Immodium A-D 2 mg Cap (2 sources)Start: 10-60-5028gwue 1 tablet by mouth every four hours as needed Immodium A-D 2 mg Cap = 1 tab(s), Oral, q4hr, PRN for loose stools, Refills(s) 0 Start Date: 12/20/17 Status: Orderedlisinopril 40 mg oral tablet (20 sources)Angiotensin Converting Enzyme InhibitorStart: 09-07-2023 End: 21-59-0517Njfvuvnikw 40 mg tablet Active 0 .ROUTE .COMPLEX 90 June 12, 2024 12:05pm TAKE 1 TABLET DAILY Complies with drug therapyStart: 48-66-9449Ujkunfrhlw 40 mg tablet Active 0 .ROUTE .COMPLEX 90 September 07, 2023 3:57pm TAKE 1 TABLET DAILYStart: 72-13-7187Basxxqbcnb Active 0 .ROUTE .COMPLEX 90 September 07, 2023 4:57pm TAKE 1 TABLET DAILYStart: 12-20-2017 End: 35-56-9715kkgf 1 tablet by mouth once dailyLisinopril 40 mg tablet Discontinued 40 MG PO Daily September 07, 2023 1:00am September 07, 2023 4 :57pmloperamide hydrochloride 2 mg oral capsule (1 source)Opioid AgonistStart: 32-84-0085yerv 1 tablet by mouth every four hours as neededImmodium A-D 2 mg Cap = 1 tab(s), Oral, q4hr, PRN for loose stools, Refills(s) 0 Start Date: 12/20/17 Status: Orderedmagnesium sulfate 225 MG / potassium chloride 188 MG / sodium sulfate 1479 MG Oral Tablet [Sutab] (1 source)Start: 23-36-3655fjnt 1 tablet by mouth onceSutab oral tablet See Instructions, 1 EA, Refill(s) 0, KP, Please follow instructions per packaging and physician's handout, [facility]/pharmacy #[id number], 183.8, cm, 07/29/22 14:15:00 EST, Height/Length Dosing, 145.3, kg, 07/29/22 14:15:00 EST, Weight Dosing Start Date: 07/29/22 Status: OrderedmethylPREDNISolone 4 mg oral tablet (2 sources)CorticosteroidStart: 79-73-9783vqvrecZFPNHXIwgpaj 4 MG as directed Orally for 6 days Oct, Ddgveh11 hr metoprolol succinate 100 mg extended release oral tablet (20 sources)beta-Adrenergic BlockerStart: 11-19-2018 End: 38-80-8287umxk 1 tablet by mouth once dailymetoprolol (TOPROL-XL) 100 mg XL tablet Take 1 Tablet by mouth daily. 90 Tablet 3 09/27/2024 ActiveStart: 45-10-8675ftie 1 tablet by mouth once dailymetoprolol tartrate 100 mg Tab 100 mg = 1 tab(s), Oral, Daily, Refills(s) 0, High blood pressure Start Date: 12/20/17 Status: OrderedMultiple Vitamin (multivitamin) tablet (2 sources)take 1 tablet by mouth once dailyMultiple Vitamin (multivitamin) tablet Take 1 tablet by mouth Daily ActiveMultivitamin (Multiple Vitamins) tablet (8 sources)Start: 25-57-9663vzhn 1 tablet by mouth once dailyMultivitamin (Multiple Vitamins) tablet Active 1 TAB PO Daily October 18, 2023 12:00am Complies with drug therapyStart: 63-41-6781zpzs 1 tablet by mouth once daily Multivitamin (Multiple Vitamins) tablet Active 1 TAB PO Daily October 17, 2023 11:00pmStart: 82-34-0089skzb 1 tablet by mouth once dailyMultivitamin (Multiple Vitamins) tablet Active 1 TAB PO Daily October 18, 2023 12:00amMultivitamins and Minerals (3 sources)Start: 81-41-3488Nfumtnjeotjch and Minerals Oral, Daily, Refill(s) 0, Prophylaxis Start Date: 12/20/17 Status: OrderedOlopatadine 0.1 % drops (9 sources)Start: 37-43-2228rpul 1 drop(s) into the eye(s) twice daily Olopatadine 0.1 % drops Active 1 DROPS OPHTHALMIC Twice daily December 25, 2023 2:36pm FreeTextSig:INSTILL 1 DROP INTO AFFECTED EYE TWICE A DAY FOR 30 DAYS; Note: Source Status: Taking; Refills: 3; Qty: 5 Milliliter; Provider: Elham Chan ( )Start: 10-19-2023 End: 16-68-6102lojp 1 drop(s) into the eye(s) twice dailyOlopatadine 0.1 % drops Discontinued 1 DROPS OPHTHALMIC Twice daily October 19, 2023 9:48am December 082023 2:36pm FreeTextSig: INSTILL 1 DROP INTO AFFECTED EYE TWICE A DAY FOR 30 DAYS; Note: Source Status: Taking; Refills: 3; Qty: 5 Milliliter; Provider: Elham Chan ( )Start: 10-18-2023 End: 56-48-0128fxoa 1 drop(s) into the eye(s) twice dailyOlopatadine 0.1 % drops Discontinued DROPS OPHTHALMIC October 17, 2023 11:00pm October 19, 2023 9:52am FreeTextSig: INSTILL 1 DROP INTO AFFECTED EYE TWICE A DAY FOR 30 DAYS; Note: Source Status: Taking; Refills: 3; Qty: 5 Milliliter; Provider: Elham Chan ( )microencapsulated potassium chloride 20 meq extended release oral tablet (20 sources)Start: 10-19-2023 End: 96-78-9015Hqgyeyrrz Chloride (Klor-Con M20) 20 mEq tablet,ER particles/crystals Active 20 MEQ PO Twice daily October 19, 2023 12:00am Complies with drug therapyStart: 04-05-2023 End: 92-41-8890Hlbdaqnhr Chloride (Klor-Con M20) 20 mEq tablet,ER particles/crystals Active 20 MEQ PO Twice daily October 19, 2023 12:00amStart: 09-03-2020 End: 42-93-0510Ihed-Con M20 20 MEQ controlled release tablet Indications: PAF (paroxysmal atrial fibrillation) (HCC) , Anticoagulated , Preop cardiovascular exam , JAVED on CPAP , Obesity, unspecified classification,unspecified obesity type, unspecified whether serious comorbidity present TAKE 1 TABLET TWICE A DAY 180 Tablet 3 03/01/2022 ActiveStart: 98-75-1481Jkdp-Con 40 mEq, Oral, BID, Refills(s) 0, Prophylaxis [...] Seed (Sugar) (Metamucil (Sugar)) powder (8 sources)Start: 68-99-1699Nfbpfrhg Seed (Sugar) (Metamucil (Sugar)) powder Active 1 TBSP PO Daily October 18, 2023 12:00am Complies with drug therapyStart: 14-12-2680Epjjhcdc Seed (Sugar) (Metamucil (Sugar)) powder Active 1 TBSP PO Daily October 17, 2023 11:00pmStart: 89-95-0683Ynzaqmtz Seed (Sugar) (Metamucil (Sugar)) powder Active 1 TBSP PO Daily October 18, 2023 12:00amsildenafil 25 mg oral tablet (9 sources)Phosphodiesterase 5 InhibitorStart: 93-50-8518okonkbqvcj citrate (VIAGRA) 25 MG tablet Take 25 mg by mouth. 01/24/2023 ActiveSodium Sulfate-Mag Sulfate-KCl (Sutab) 5959-178-342 MG TABS (7 sources)Start: 62-39-6781Uepyth Sulfate-Mag Sulfate-KCl (Sutab) 1348-870-040 MG TABS Take by mouth. 07/29/2022 ActiveStart: 28-13-9498Zfuzcf Sulfate-Mag Sulfate-KCl (Sutab) 6551-661-197 MG TABS Take by mouth. 0 07/29/2022 ActiveSuper B Complex (6 sources)Start: 50-10-0688mmaf 1 tablet by mouth once dailySuper B Complex 1 tab(s), Oral, Daily, Refill(s) 0, Prophylaxis Start Date: 04/02/20 Status: OrderedtiZANidine 4 mg oral tablet (10 sources)Central alpha-2 Adrenergic AgonistStart: 09-25-2290coeb 1 tablet by mouth once daily at [...] mg oral tablet (20 sources)Vitamin K AntagonistStart: 32-89-3693Boisxffg Active MG PO As Directed October 18, 2023 12:00am FreeTextSig: as directed orally; Note: Source Status: Taking; Provider: Elham Chan ( )Start: 07-29-2022 warfarin Refills(s) 0, Blood Thinner Start Date: 07/29/22 Status: OrderedStart: 68-62-4189gpofaeee Refills(s) 0 Start Date: 07/29/22 Status: OrderedStart: 09-03-2020 End: 78-36-0603Tynhgdob 5 mg tablet Active MG PO As Directed October 18, 2023 12:00am FreeTextSig: as directed orally; Note: Source Status: Taking; Provider: Elham Chan ( ) Complies with drug therapy Completed/Discontinued Medications MedicationDrug Class(es)DatesSig (Normalized)Sig (Original)acetaminophen 325 mg / HYDROcodone bitartrate 5 mg oral tablet (11 sources)Opioid Agonist End: 63-58-1818uwfidvmuuxc-acetaminophen (NORCO) 5-325 MG per tablet Indications: Preop cardiovascular exam , PAF (paroxysmal atrial fibrillation) (HCC) , Anticoagulated , JAVED on CPAP , Obesity, unspecified classification, unspecified obesity type, unspecified whether serious comorbidity present hydrocodone 5 mg-acetaminophen 325 mg tablet 0 03/29/2023 Jchyhutgumvslxy022465 200 actuat albuterol 0.09 mg/actuat metered dose inhaler (7 sources)beta2-Adrenergic AgonistStart: 05-29-2024 End: 52-14-4958Acvnqezzu Sulfate 90 mcg/actuation HFA aerosol inhaler Discontinued 1 INH INHALATION Every 6 hours May 29, 2024 1:00am February 12, 2025 9:29amStart: 05-08-2024 End: 47-86-4389Iymhksxri Sulfate 90 mcg/actuation HFA aerosol inhaler Discontinued 2 INH INHALATION EVERY 4-6 HOURS as needed for shortness of breath or wheezing 6.7 0 May 08, 2024 12:00am May 260:20amAlbuterol Sulfate 90 mcg/actuation HFA aerosol inhaler (3 sources)Start: 05-08-2024 End: 47-17-8798Vmitzurji Sulfate 90 mcg/actuation HFA aerosol inhaler Discontinued 2 INH INHALATION EVERY 4-6 HOURS as needed for shortness of breath or wheezing 6.7 May 07, 2024 11:00pm May 26, 2024 9:20amamLODIPine 10 mg oral tablet (20 sources)Dihydropyridine Calcium Channel BlockerStart: 10-18-2023 End: 09-30-1654qkza 1 tablet by mouth once dailyAmlodipine 10 mg tablet Discontinued 10 MG PO Daily October 18, 2023 12:00am October 19, 2023 10:34am AMLODIPINE BESYLATE ORAL amLODIPine Besylate Not-Taking ActiveamLODIPine Besylate Not-Taking/PRNAMLODIPINE BESYLATE ORAL amLODIPine Besylate Not-Taking 0 ActiveamLODIPine Besylate Not-Takingamoxicillin 875 mg oral tablet (6 sources)Penicillin-class AntibacterialStart: 62-58-2649hkqe 1 tablet by mouth every twelve hoursAmoxicillin 875 MG 1 tablet Orally Twice a day for 10 day(s) Mar, Not-Taking/PRNascorbic acid 500 mg oral capsule (20 sources)Vitamin CStart: 10-18-2023 End: 83-61-0250Tlspnhix Acid (Vitamin C) 500 mg capsule Discontinued MG PO October 18, 2023 12:00am October 19, 2023 10:33amStart: 10-18-2023 End: 35-69-3643Bepixdty Acid (Vitamin C) Discontinued MG PO October 18, 2023 12:00am October 19, 2023 10:33amVitamin C Not-Taking/PRN End: 80-53-8394lzxj 1 tablet by mouth once dailyAscorbic Acid 1000 MG TABS Vitamin C 1,000 mg tablet Take 1 tablet every day by oral route. 0 03/29/2023 DiscontinuedVitamin C Lru-MmrafeLdwce-69 (6 sources)Aspir-81 Not-Taking/PRNAspir-81 Not-Takingaspirin 81 mg delayed release oral tablet (8 sources)Platelet Aggregation Inhibitor, Nonsteroidal Anti-inflammatory Drug Start: 10-18-2023 End: 79-00-9260njqs 1 tablet by mouth once dailyAspirin 81 mg tablet,delayed release (DR/EC) Discontinued 81 MG PO Daily October 18, 2023 12:00am October 19, 2023 10:33ambaclofen 10 mg oral tablet (20 sources)gamma-Aminobutyric Acid-ergic AgonistStart: 11-13-2018 End: 17-65-4985zcaq 1 tablet by mouth at bedtimebaclofen (LIORESAL) [...] oral capsule (12 sources)Non-narcotic AntitussiveStart: 10-19-2023 End: 41-96-5268Kzcwlsmnwzb 200 mg capsule Discontinued 200 MG PO 2-3 TIMES PER DAY as needed for cough 30 May 29, 2024 1:00am February 12, 2025 9:29am carvedilol 3.125 mg oral tablet (14 sources)alpha-Adrenergic Yadiel, beta-Adrenergic BlockerStart: 10-18-2023 End: 79-99-1960yqyh 1 tablet by mouth twice daily at mealtimeCarvedilol 3.125 mg tablet Discontinued 3.125 MG PO Twice daily October 18, 2023 12:00am October 19, 2023 10:34am must administer with a meal/foodCarvedilol Not-Taking/PRN Carvedilol Not-Takingcefdinir 300 mg oral capsule (12 sources)Cephalosporin AntibacterialStart: 10-19-2023 End: 72-99-4397qupv 1 capsule by mouth twice dailyCefdinir 300 mg capsule Discontinued 300 MG PO Twice daily 14 May 29, 2024 11:13am February 12, 2025 9:30amcholecalciferol 0.05 mg oral capsule (11 sources)Vitamin D End: 64-25-7918uewt 1 capsule by mouth once dailyCholecalciferol 50 MCG (2000 UT) CAPS Vitamin D3 50 mcg (2,000 unit) capsule Take 1 capsule every day by oral route. 0 03/29/2023 Discontinueddocosahexaenoic acid 120 mg / eicosapentaenoic acid 180 mg oral capsule (8 sources)Start: 10-18-2023 End: 51-55-2510qnue 1 capsule by mouth once dailyDocosahexaenoic Acid-Epa (Fish Oil) 120-180 mg capsule Discontinued 1 CAP PO Daily October 172:00am October 19, 2023 10:35amdoxycycline hyclate 100 mg oral capsule (6 sources)Tetracycline-class DrugStart: 05-08-2024 End: 01-51-8626jtwc 1 capsule by mouth twice dailyDoxycycline Hyclate 100 mg capsule Discontinued 100 MG PO Twice daily 14 7 0 May 08, 2024 12:00am May 26, 2024 10:21amFish Oils (6 sources)Fish Oil Not-Taking/PRNFish Oil Not-Takingloratadine 10 mg oral tablet (20 sources)Start: 12-20-2017 End: 06-94-5457ahls 1 tablet by mouth once dailyLoratadine 10 mg tablet Discontinued 10 MG PO Daily October 18, 2023 12:00am February 12, 2025 9:32am FreeTextSi tablet once a day; Note: Source Status: Taking; Provider: Elham Chan ( )Loratadine Not-TakingMulti Vitamin Mens (6 sources)Multi Vitamin Mens Not-Taking/PRNMulti Vitamin Mens Not-Taking olopatadine 1 mg/ml ophthalmic solution (20 sources)Histamine-1 Receptor InhibitorStart: 12-92-2320cewi 1 drop(s) into the eye(s) twice dailyOlopatadine Active 1 DROPS OPHTHALMIC Twice daily December 25, 2023 3:36pm FreeTextSig: INSTILL 1 DROP INTO AFFECTED EYE TWICE A DAY FOR 30 DAYS; Note: Source Status: Taking; Refills: 3; Qty: 5 Milliliter; Provider: Elham Chan ( )Start: 10-19-2023 End: 59-49-1713pfee 1 drop(s) into the eye(s) twice dailyOlopatadine Discontinued 1 DROPS OPHTHALMIC Twice daily October 19, 2023 10:48am December 25, 2023 3:36pm FreeTextSig: INSTILL 1 DROP INTO AFFECTED EYE TWICE A DAY FOR 30 DAYS; Note: Source Status: Taking; Refills: 3; Qty: 5 Milliliter; Provider: Elham Chan ( )Start: 61-67-2946qkwk 1 drop(s) into the eye(s) twice dailyOlopatadine Active 1 DROPS OPHTHALMIC Twice daily October 19, 2023 10:48am FreeTextSig: INSTILL 1DROP INTO AFFECTED EYE TWICE A DAY FOR 30 DAYS; Note: Source Status: Taking; Refills: 3; Qty: 5 Milliliter; Provider: Elham Chan ( )Start: 10-18-2023 End: 43-32-2895pckc 1 drop(s) into the eye(s) twice dailyOlopatadine 0.1 % drops Discontinued 1 DROPS OPHTHALMIC Twice daily 5 2 October 19, 2023 10:48am December 25, 2023 3:36pm FreeTextSig: INSTILL 1 DROP INTO AFFECTED EYE TWICE A DAY FOR 30 DAYS; Note: Source Status: Taking; Refills: 3; Qty: 5 Milliliter; Provider: Elham Chan ( )Start: 10-18-2023 End: 64-18-3172bbgg 1 drop(s) into the eye(s) twice dailyOlopatadine Discontinued DROPS OPHTHALMIC October 18, 2023 12:00am October 19, 2023 10:52am FreeTextSig: INSTILL 1 DROP INTO AFFECTED EYE TWICE A DAY FOR 30 DAYS; Note: Source Status: Taking; Refills: 3; Qty: 5 Milliliter; Provider: Elham Chan ( )Start: 01-85-4936docralbewnj 0.7% ophthalmic solution Refill(s) 0 Start Date: [...] oral tablet (11 sources)Serotonin-3 Receptor Antagonist End: 53-30-8642cfvziuvvjwv (ZOFRAN-ODT) 4 MG disintegrating tablet Indications: Preop cardiovascular exam , PAF (paroxysmal atrial fibrillation) (HCC) , Anticoagulated , JAVED on CPAP , Obesity, unspecified classification, unspecified obesity type, unspecified whether serious comorbidity present ondansetron 4 mg disintegrating tablet 0 03/29/2023 DiscontinuedpredniSONE 20 mg oral tablet (20 sources)Start: 05-26-2024 End: 42-38-8136Bfxehxzgcx 20 mg tablet Discontinued 0 PO Daily 11 9 May 26, 2024 1:00am February 12, 2025 9:31am Take 2 tabs x 3 days, take 1 tab x 3 days, take 1/2 tab x 3 days orally daily;Start: 05-08-2024 End: 43-21-3820cinv 1 tablet by mouth once dailyPrednisone 50 mg tablet Discontinued 50 MG PO Daily 5 5 0 May 08, 2024 12:00am May 10:20am End: 03-15-2300ogqycgCKVF (DELTASONE) 20 MG tablet Indications: Preop cardiovascular exam , PAF (paroxysmal atrialfibrillation) (HCC) , Anticoagulated , JAVED on CPAP , Obesity, unspecified classification, unspecified obesity type, unspecified whether serious comorbidity present prednisone 20 mg tablet 0 03/29/2023 DiscontinuedPsyllium (6 sources)Metamucil 48.57 % Orally Not-Taking/PRNMetamucil 48.57 % Orally Not-Takingtamsulosin hydrochloride 0.4 mg oral capsule (15 sources)alpha-Adrenergic Yadiel End: 80-41-7037hcfm 1 capsule by mouth once dailytamsulosin (FLOMAX) [...] colon; Translations: [Malignant neoplasm of colon, unspecified]Onset: [id number] dysrhythmias (20 sources)Paroxysmal atrial fibrillation; Translations: [Paroxysmal atrial fibrillation]Onset: 12-28-2018 Resolved: 10-41-1097SqaflpjAsqfqcz obstructive pulmonary disease and bronchiectasis (12 sources)Bronchitis, not specified as acute or chronic; Translations: [Bronchitis]EpisodicComplications of surgical procedures or medical care (7 sources)Short bowel syndrome; Translations: [Postsurgical malabsorption, not elsewhere classified]ChronicDisorders of lipid metabolism (3 sources)Hyperlipidemia; Translations: [Hyperlipidemia, unspecified]Chronic Essential hypertension (20 sources)Hypertensive disorder; Translations: [Essential (primary) hypertension]Onset: 374290-26-7789PswewsnXwqnhuottrpyd and screening for infectious disease (3 sources)Vaccination given; Translations: [Encounter for immunization]Episodic Mycoses (9 sources)Candidiasis of skin; Translations: [Candidiasis of skin and nail] EpisodicOsteoarthritis (20 sources)Arthritis; Translations: [Unspecified osteoarthritis, unspecified site]Onset: [id number] aftercare (20 sources)Drug therapy finding; Translations: [[facility] (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]Onset: 63-65-7313EcjrbqdnBeyfd aftercare (1 source)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; 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]Onset: 07-98-9377ZwlpqybmWmgyl aftercare (5 sources)Encounter for therapeutic drug level monitoring; Translations: [ENC THERAPEUTC DRUG LEVL MONITORING]Onset: 51-74-2105UgkctfaqLhuzv and unspecified benign neoplasm (6 sources)Tubular adenoma of colon; Translations: [Tubular adenoma of colon] EpisodicOther and unspecified benign neoplasm (1 source)Polyp of colon; Translations: [Polyp of colon]Onset: 10-06-2022 EpisodicOther circulatory disease (3 sources)Elevated blood-pressure reading without diagnosis of hypertension; Translations: [Elevated blood-pressure reading, without diagnosis of hypertension]EpisodicOther congenital anomalies (3 sources)Congenital deformity of spine; 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]Onset: 77-91-8028WiyzrruRfgph connective tissue disease (6 sources)Peripheral neuralgia; Translations: [Neuralgia and neuritis, unspecified]EpisodicOther connective tissue disease (5 sources)Other muscle spasm; Translations: [OTHER MUSCLE SPASM]Onset: 85-73-3716JzhwlwosRzpah connective tissue disease (3 sources)Neuralgia; Translations: [Neuralgia and neuritis, unspecified] EpisodicOther diseases of kidney and ureters (1 source)Urinary tract obstruction; Translations: [Other obstructive and reflux uropathy]Onset: 69-10-3283MsrfdaacIylmt disorders of stomach and duodenum (1 source)Other diseases of stomach and duodenum; Translations: [Other diseases of stomach and duodenum]Onset: 84-26-0664GugocumdDwsir lower respiratory disease (3 sources)Cough; Translations: [Cough]31-57-5124CtudaexgKhmxs male genital disorders (10 sources)Male erectile dysfunction, unspecified; Translations: [Erectile dysfunction]Onset: 23-69-9183FlhdzonFftit male genital disorders (6 sources)Gropdzxco12-38-0355AkadnwxDywll nervous system disorders (1 source)Other chronic pain; Translations: [OTHER CHRONIC PAIN]Onset: 40-40-6262IutxuvtRhpwc non-traumatic joint disorders (3 sources)Pain in right hip joint; Translations: [Pain in right hip]Episodic Other non-traumatic joint disorders (3 sources)Arthralgia of the lower leg; Translations: [Pain in right knee] EpisodicOther non-traumatic joint disorders (2 sources)Hip pain; Translations: [Pain in right hip]97-96-7222EjnsebgaAafuc nutritional; endocrine; and metabolic disorders (7 sources)Obesity; Translations: [Obesity, unspecified]ChronicOther nutritional; endocrine; and metabolic disorders (6 sources)Body mass index 40+ - severely obese; Translations: [Body mass index (BMI) 40.0-44.9, adult]Onset: 15-60-1337IhmgpcdGfblviaqv; thrombophlebitis and thromboembolism (1 source)Chronic embolism and thrombosis of right femoral vein; Translations: [CHRON EMBO THROMB RT FEMORAL VEIN]Onset: 20-35-3378TlthdzgScezyrvgq heart disease (9 sources)Pulmonary hypertension; Translations: [Pulmonary hypertension, unspecified]ChronicPulmonary heart disease (14 sources)Pulmonary embolism; Translations: [Other pulmonary embolism without acute cor pulmonale]Onset: 06-60-6281HzhmruokYaccmxss codes; unclassified (13 sources)Sleep apnea; Translations: [Sleep apnea, unspecified]Onset: 561100-16-0456KwnbykiTsvlaldl codes; unclassified (20 sources)Obstructive sleep apnea syndrome; Translations: [Obstructive sleep apnea (adult) (pediatric)]ChronicResidual codes; unclassified (1 source)Obstructive sleep apnea (adult) (pediatric)ChronicResidual codes; unclassified (1 source)Family history of malignant neoplasm of digestive organ; Translations: [Family history of malignantneoplasm of digestive organs]Onset: 07-29-2022 EpisodicSpondylosis; intervertebral disc disorders; other back problems (15 sources)Spondylosis without myelopathy or radiculopathy, cervical region; Translations: [Sacroiliitis, not elsewhere classified]Onset: 99-10-8258Demepka Spondylosis; intervertebral disc disorders; other back problems (16 sources)Radiculopathy, lumbar region; Translations: [Spinal stenosis, lumbar region without neurogenic claudication]Onset: 89-52-131189764300-70-6357Bhdcidwk Unclassified (6 sources)Asymptomatic microscopic tkpbdwlhi52-09-4012Kcfcebodkpcn (6 sources)Patient encounter -95-1868Xluevsjmmsnh (5 sources)History of malignant neoplasm of colon and/or qphyjd88-01-6145 Unclassified (4 sources)LOW BACK PAIN, UNSPECIFIED; Translations: [LOW BACK PAIN, UNSPECIFIED]Onset: 93-17-8229Zeljykqhenko (1 source)Cough, unspecified; Translations: [Cough, unspecified]Onset: 51-03-3641Aiscbvjjflvc (2 sources)M16.0 - Bilateral primary osteoarthritis of hip,M17.0 - Bilateral primary osteoarthritis of knee,M54.50 - Low back pain, unspecified Past or Other Problems Problem ClassificationProblemDateDocumented DateEpisodic/ChronicCancer of rectum and anus (8 sources)History of malignant neoplasm of rectum; Translations: [Personal history of other malignant neoplasm of rectum, rectosigmoid junction, and anus] Onset: 53-61-1302SepfwymlXosebwbwbq and other anemia (3 sources)Pernicious anemia; Translations: [Vitamin B12 deficiency anemia due to intrinsic factor deficiency]Onset: 15-78-3161ZcqaffitLdqnijdjhdsla symptoms and ill-defined conditions (20 sources)Blood in urine; Translations: [Jonathan hematuria]Onset: 05-27-2020 Resolved: 853201-56-2416AfkslxouEllhrsgkjbn of prostate (20 sources)Benign prostatic hypertrophy with outflow obstruction; Translations: [Benign prostatic hyperplasia with lower urinary tract symptoms]Onset: 09-15-2017 Resolved: 02-09-7706SrehtoaEryyehmjjitp; infection of eye (except that caused by tuberculosis or sexually transmitteddisease) (3 sources)External hordeolum; Translations: [Hordeolum externum unspecified eye, unspecified eyelid]Onset: 34-56-8743XieqiznaQkjvoyjbtbll conditions of male genital organs (3 sources)Acute prostatitis; Translations: [Acute prostatitis]Onset: 05-30-2018 EpisodicOther gastrointestinal disorders (3 sources)Diarrhea; Translations: [Diarrhea, unspecified]Onset: 03-03-2016 EpisodicOther lower respiratory disease (3 sources)Dyspnea; Translations: [Dyspnea, unspecified]Onset: 04-18-2016 EpisodicOther nervous system disorders (3 sources)Altered sensation of skin; Translations: [Disturbance of skin sensation]Onset: 51-88-1946JaxskoisWsaov non-traumatic joint disorders (3 sources)Arthralgia of the pelvic region and thigh; Translations: [Pain in joint, pelvic region and thigh]Onset: 10-24-2946ZeycziihVmeao screening for suspected conditions (not mental disorders or infectious disease) (20 sources)Raised prostate specific antigen; Translations: [Elevated prostate specific antigen [PSA]]Onset: 15-04-6995QbcodmbwYphxp upper respiratory infections (3 sources)Acute sinusitis; Translations: [Acute sinusitis, unspecified]Onset: 89-62-6892VnquvnsrWlbi-; endo-; and myocarditis; cardiomyopathy (except that caused by tuberculosis or sexually transmitted disease) (3 sources)Disorder of pericardium; Translations: [Pericardial effusion (noninflammatory)]Onset: 28-42-0192OmddirdaKntpqoovi; thrombophlebitis and thromboembolism (9 sources)Deep venous thrombosis of lower extremity; Translations: [Acute embolism and thrombosis of unspecified deep veins of right lower extremity] Onset: 786941-01-7139AfzcvsgsKbxmvybe codes; unclassified (18 sources)Family history of cancer of colon; Translations: [Family hx of colon cancer]Onset: 048297-31-2124WigadwfsGjhowszqcxhu (1 source)LOW BACK PAIN, UNSPECIFIED; Translations: [LOW BACK PAIN, UNSPECIFIED] Onset: 69-20-0271Lkpyrfmkxcfe (3 sources)Vaccine product containing only acellular Bordetella pertussis and Clostridium tetani and Corynebacterium diphtheriae antigens (medicinal product); Translations: [Tlqzbssjut-sxpoidh-qmimkoljf, combined [DTP] [DtaP]]Onset: 92-33-7034Rxwkx infection (1 source)COVID-19 Results Test NameValueInterpretationReference RangeFacilityXR Hip - right 3 Viewson 91-31-9296Wwosmdj Result: Imaging Result: AP and lateral of [...] Impression moderate degenerative joint disease, right hip [facility] HealthcareRadiology Study observation (narrative)[facility] HealthcareINR in Platelet poor plasma by Coagulation assayOrdered By: Blessing Granda on 55-33-0300GON Coag (PPP) [Relative time]2.57 {INR}[facility], AvonComment on above:DESIRED INR:2.0-3.0 CONDITIONS NOT LISTED BELOW2.5-3.5 FOR PROSTHETIC HEART VALVE REPLACEMENT2.5-3.5 RECURRENT THROMBOSISProthrombin time (PT)Ordered By: Blessing Granda on 28-85-1644MT Coag (PPP) [Time]24.8 sHigh9.0-11.6FProtestant HospitalINR in Platelet poor plasma by Coagulation assayOrdered By: Blessing Granda on 20-27-2857HBP Coag (PPP) [Relative time]2.50 {INR}[facility], AvonComment on above:DESIRED INR:2.0-3.0 CONDITIONS NOT LISTED BELOW2.5-3.5 FOR PROSTHETIC HEART VALVE REPLACEMENT2.5-3.5 RECURRENT THROMBOSISProthrombin time (PT)Ordered By: Blessing Granda on 06-93-6717VI Coag (PPP) [Time]24.2 s High9.0-11.6FProtestant HospitalINR in Platelet poor plasma by Coagulation assayon 15-25-7235ZTX Coag (PPP) [Relative time]2.24 {INR}[facility], AvonComment on above:DESIRED INR:2.0-3.0 CONDITIONS NOT LISTED BELOW2.5-3.5 FOR PROSTHETIC HEART VALVE REPLACEMENT2.5-3.5 RECURRENT THROMBOSISProthrombin time (PT)on 68-86-5479RO Coag (PPP) [Time]21.9 sHigh 9.0-11.6FProtestant HospitalX-ray reportOrdered By: Lupis Bryan on 90-05-6038Ufado reportACMC HE[place] [address] XRay Report Signed Patient: Evangelist Ybarra MR#: [id number] : 1955 Acct:[id number] Age/Sex: 68 / M ADM Date: 4 Loc: [facility] Room: Type: [facility] Attending Dr: Mariela Mosley APRN Copies to: [...] Bryan MD 05/26/24 102 Signed By: 05/26/24 [facility] Work Phone: xr chest 2V*on 47-06-5211GX chest 2V*[facility] [place] [address] [place] [address] XRay Report Signed Patient: Evangelist Ybarra MR#: [id number] : 1955 Acct:[id number] Age/Sex: 68 / M ADM Date: 05/26/24 Loc: XDUCLY Room: Type: [facility] Attending Dr: Mariela Mosley APRN Copies to: [...] Lupis Bryan M.D.05/26/2024 10:23 AM Dictation Location: [facility]02 Transcribed By: LIV 05/26/24 1023 Dictated By: Lupis Bryan MD 05/26/24 1022 Signed By: 05/26/[address] [place] [address] Physician GroupInfluenza virus A and B and SARS-CoV-2 (COVID-19) RNA panel - Respiratory system specon 12-68-6919Ucemudzvq virus A and B RNA and SARS-CoV-2 (COVID-19) N gene panel ANNIE+probe (Resp) Influenza virus A and B and SARS-CoV-2 (COVID-19) RNA panel - Respiratory system specSelect Medical [facility] Clinic [facility], AvonLaboratory - Microbiology and Antimicrobial susceptibilityon 71-48-1195UTBH-CoV-2 (COVID-19) RNA ANNIE+probe Ql (Unsp spec)NegativeSelect Medical Cleveland Clinic Rehabilitation Hospital, AvonNo Panel Informationon 48-60-6071NKR Influenza B (ANNIE)NegativeSelect Medical Cleveland Clinic Rehabilitation Hospital, AvonINR in Platelet poor plasma by Coagulation assayon 09-69-7594HWG Coag (PPP) [Relative time]2.42 {INR}[facility], AvonComment on above:DESIRED INR:2.0-3.0 CONDITIONS NOT LISTED BELOW2.5-3.5 FOR PROSTHETIC HEART VALVE REPLACEMENT2.5-3.5 RECURRENT THROMBOSISINR Coag (PPP) [Relative time]INR in Platelet poor plasma by Coagulation assaySelect [facility] [place] Comment on above:DESIRED INR:2.0-3.0 CONDITIONS NOT LISTED BELOW2.5-3.5 FOR PROSTHETIC HEART VALVE REPLACEMENT2.5-3.5 RECURRENT THROMBOSISProthrombin time (PT)on 22-58-4626GV Coag (PPP) [Time]23.5 sHigh9.0-11.6FProtestant HospitalPT Coag (PPP) [Time]Prothrombin time (PT)High9.0-11.6FProtestant HospitalProgress Noteson 31-29-5662Clpjrzbriyrob Authentication Interface Message TextEP video visit to [...] his last visit, he had lexiscan at [facility] on 09/2016 that showe no reversible [...] in 1 year Prior to your visit, Your Policy ManagerHoolux Medical shared information with you about the risks [...] 180 Tablet 3 Sodium Sulfate-Mag Sulfate-KCl (Sutab) 7266-571-221 MG TABS Take by mouth. AMLODIPINE BESYLATE [...] declined Stress: No Stress Concern Present (03/27/2023) [employer] - Occupational Stress Questionnaire Feeling of Stress : Not at all Social Connections: Moderately Integrated (03/27/2023) Social Connection and Isolation Panel [NHANES] Frequency of Communicatio (more content not included)...NormalThe [facility] SystemAmbulatory Visit Summaryon 13-50-0519Xdnrnrgiiv Visit SummaryAmbulatory Visit Summary EVANGELIST YBARRA :1955 [...] needed Where: [address] [place] [address] [phone] Medications What How Much When Instructions Unchanged [...] ? Obesity. ? Ne (more content not included)...[facility] CenterProvider Letteron 06-78-1407Hwrbwksu LetterProvider Letter DONALD LIZARRAGA, [facility] [place] [address] Re: EVANGELIST YBARRA Date of : [address] ELHAM JACKSON, EVANGELIST SWANSON was evaluated at [facility] 01/30/2024 10:00:00 As this patient has been stable, they will be released back to your care. We request that you continue to check PSA annually for prostate cancer screening Should the patient develop new symptoms, worsening condition, or abnormal imaging/labs in the future, do not hesitate to refer them back. Thanks! Provider Signature: Cathie Hernandez PA-C Physician Appointment Coordinator [facility] [address] [place] [address] NoHolzer Health SystemUrology Office/Clinic Note on 75-14-7381Diiztsh Office/Clinic NoteUrology Office/Clinic Note Chief Complaint 1 year follow up with PSA HPI Staff 68 year old patient presents today for a 1 year follow up with PSA. No recent PSA on [facility], [facility], or [facility] [place]. DX: BPH, ED & Elevated PSA TURP [...] prn at prior OV pending clearance from supervisor sunglasses but pt never filled script. Not a [...] GARCIA, CATHIE Ruano, URL Only if needed [address] [place] [place] [address] [phone] Additional Instructions: Patient Education Erectile Dysfunction Documentation [...] History Alcohol - De (more content not included)...[facility] Comment on above:Result Comment: Electronically Signed By: CATHIE HERNANDEZ PA-C\.br\Date and Time Signed: 01/22/2414:33 EDT\.br\Electronically Co-Signed By: Krystyna Caceres\.br\Date and Time Co-Signed: 01/23/24 14:31 EDTURINALYSISOrdered By: Sweetie Ma on 29-87-3934Lekandyl LM Ql (Urine sed)Trace /HPFNormal Trace/HPFSTILLW[facility] UA Auto SSBilirubin Ql (U)Negative (01/24/23 10:19 AM)NormalNegativeSTILLWATER [facility] UA Auto SSClarity (U)Clear (01/24/23 10:19 AM)NormalClearFCANCER TREAT[facility] UA Auto SSColor (U)Yellow (01/24/23 10:19 AM)NormalYellowSTILLWATER MEDICAL CENTER [facility] UA Auto SSEpithelial cells.squamous LM.HPF (Urine sed) [#/Area]0-2 /HPFNormal0-2/HPFSTILLWATER MEDICAL [facility]ENTER [facility] UA Auto SSGlucose Test strip (U) [Mass/Vol]Negative (01/24/23 10:19 AM)NormalNegativeSTILLWATER MEDICAL [facility] UA Auto SSHemoglobin Ql (U)Negative (01/24/23 10:19 AM)NormalNegativeSTILLWATER MED[facility]A Auto SSKetones (U) [Mass/Vol]Negative (01/24/23 10:19 AM)NormalNegativeSTILLWATER MEDICAL [facility] UA Auto SSLithium.plasma/Turrell.RBC (Bld) [Mass ratio]0-3 /HPFNormal0-3/HPFSTILLWATER MEDICAL [facility]ENTER [facility] UA Auto SSNitrite Ql (U)Negative (01/24/23 10:19 AM)NormalNegativeSTILLWATER MED[facility] UA Auto SSpH (U)5.0 *NA* (01/24/23 10:19 AM)Invalid Interpretation Code5.0 - 9.0[facility] Auto SSProtein (U) [Mass/Vol]Negative (01/24/23 10:19 AM)NormalNegativeSTILLWATER MEDICAL [facility]ENTER [facility] UA Auto SSSpecific gravity (U) [Rel density]>=1.030 *NA* (01/24/23 10:19 AM)Invalid Interpretation Code1.005 - 1.030[facility] Auto SSUA Spec DescRandom Urine (01/24/23 10:19 AM)NormalSTILLWATER MEDICAL CENTER – [facility] UA Auto SSUrobilinogen Qn (U)0.3011583 {Anne'U}/dLNormal0.0 - 1.0 EU/dLSTILLWATER MEDICAL CENTER – [place] UA Auto SSWBC Auto Ql (U)Negative (01/24/23 10:19 AM)NormalNegativeSTILLWATER MEDICAL [facility] UA Auto SSWBC LM.HPF (Urine sed) [#/Area]0- 5 /HPFNormal0-5/HPFSTILLWATER MEDICAL [facility]ENTER [facility] UA Auto SSXR CSPINE MIN 4 VIEWSon 25-76-0557FK CSPINE MIN 4 VIEWSEXAMINATION: XR CSPINE MIN [...] Electronically authenticated by: UNA SEARS Date: 2022-11-10 09:46NoTriHealth [facility] AUTO DIFFon 58-77-4461XAQB #0.0 103/ulNormal0.0-0.1[facility] HospitalComment on above:Performed By: #### CBC #### [facility] [address] [place] [address] Dr. Jason PearsonBasophils/100 WBC (Bld)0.7 %Normal0.2-2.0[facility] Comment on above:Performed By: #### CBC #### [facility] [address] [address] [address] Jason Lee #0.2 103/ulNormal0.0-0.7The [facility] Medical CenterComment on above: Performed By: #### CBC #### [facility] [address] [address] [address] Jason Taylorosinophils/100 WBC (Bld)3.7 %Normal0.9-7.0[facility] Comment on above:Performed By: #### CBC #### [facility] [address] [address] [address] Jason Taylorrythrocyte distribution width (RBC) [Ratio]14.0 %Wejfal41.0-15.0 [facility] HospitalComment on above:Performed By: #### CBC #### [facility] [address] [place] [address] Dr. Jason PearsonHematocrit (Bld) [Volume fraction]41.0 %Critically low42.0-54.0 [facility] HospitalComment on above:Performed By: #### CBC #### [facility] [address] [place] [address] Dr. Jason PearsonHemoglobin (Bld) [Mass/Vol]13.8 g/dLCritically low14.0-18.0The [facility] Medical CenterComment on above:Performed By: #### CBC #### [facility] [address] [place] [address] Dr. Jason Little #0.01 10e3/ulNormal0.00-0.03The [facility] Medical CenterComment on above:Performed By: #### CBC #### [facility] [address] [place] [address] Dr. Jason Little %0.2 %Normal0.0-0.5The [facility] Medical CenterComment on above: Performed By: #### CBC #### [facility] [address] [place] [address] Dr. Jason Vazquez #1.3 103/ulNormal1.2-3.8The [facility] Medical CenterComment on above:Performed By: #### CBC #### [facility] [address] [place] [address] Dr. Jason Laihocytes/100 WBC (Bld)22.3 %Oqvdxd14.5-60.0The [facility] Medical CenterComment on above:Performed By: #### CBC #### [facility] [address] [place] [address] Dr. Jason MalikUAL DIFF REQNONormalThe [facility] Medical CenterComment on above: Performed By: #### CBC #### [facility] [address] [place] [address] Dr. Jason Palma (RBC) [Entitic mass]32.6 hzSzkvcp88.9-34.0The [facility] Medical CenterComment on above:Performed By: #### CBC #### [facility] [address] [place] [address] Dr. Jason Palma (RBC) [Mass/Vol]33.7 g/aBWmxkda19.9-35.2The [facility] Medical CenterComment on above:Performed By: #### CBC #### [facility] [address] [place] [address] Dr. Jason Palma (RBC) [Entitic vol]96.9 fLCritically high80.0-94.0The [facility] Medical CenterComment on above:Performed By: #### CBC #### [facility] [address] [place] [address] Dr. Jason Cook #0.6 103/ulNormal0.3-0.8The [facility] Medical CenterComment on above:Performed By: #### CBC #### [facility] [address] [place] [address] Dr. Jason Coronaocytes/100 WBC (Bld)10.5 %Normal1.7-12.0The [facility] Comment on above:Performed By: #### CBC #### [facility] [address] [place] [address] Dr. Jason Pearson #3.7 103/ulNormal1.4-6.5The [facility] Medical CenterComment on above:Performed By: #### CBC #### [facility] [address] [place] [address] Dr. Jason Henriquezutrophils/100 WBC (Bld)62.6 %Qaqjbv03.0-75.0The [facility] Medical CenterComment on above:Performed By: #### CBC #### [facility] [address] [place] [address] Dr. Jason Bonds mean volume (Bld) [Entitic vol]9.9 fLNormal9.5-13.5The [facility] Medical CenterComment on above:Performed By: #### CBC #### [facility] [address] [place] [address] Dr. Jason MontañoT181 103/qvBncrkw276-248Eps [facility] CenterComment on above: Performed By: #### CBC #### [facility] [address] [place] [address] Dr. Jason PearsonRBC4.23 106/ulCritically low4.70-6.10The [facility] CenterComment on above:Performed By: #### CBC #### [facility] [address] [place] [address] Dr. Yilan ChangWBC5.9 103/ulNormal4.0-11.0The [facility] CenterCombeaumont hospital on above: Performed By: #### CBC #### [facility] [address] [place], [place] [address] Dr. Jason GarciasID PROFILEon 93-75-2784DBTU-HDL RATIO NORMSEE [facility]'s Hospital for RehabilitationComment on above:Result Comment: 3.3 - 4.4 LOW RISK 4.4 - 7.1 AVERAGE RISK 7.1 - 11.0 MODERATE RISK >11.0 HIGH RISKPerformed By: #### CMP, LIPID ####[facility] [address] [place], [place] [address]Dr. Yilan ChangCholesterol [Mass/Vol]163 mg/dLNormal<=200The [facility] on above:Performed By: #### CMP, LIPID ####[facility] [address] [place], [place] [address]Gg. Deboralan ChangCholesterol in HDL [Mass/Vol]49 mg/eJHyutpf18-27Nil [facility] CenterComment on above: Performed By: #### CMP, LIPID ####[facility] [address] [place], [place] [address]Yg. Yilan ChangCholesterol in LDL [Mass/Vol]74.6 mg/dL NormalCherrington Hospital on above:Performed By: #### CMP, LIPID ####[facility] [address] [place], [place] [address]Ok. Jason ChangCholesterol.total/Cholesterol in HDL [Mass ratio]3.3 {ratio}NormalThe [facility] CenterCombeaumont hospital on above:Performed By: #### CMP, LIPID ####[facility] [address] [place], [place] [address]Xv. Deboralan ChangHDL NORMAL> or = 60 mg/dl - LOW CARDIOVASCULAR RISK <40 mg/dl - HIGH CARDIOVASCULAR RISKMain Campus Medical Centerment on above:Performed By: #### CMP, LIPID ####[facility] [address] [place], [place] [address]Vl. Deboralan ChangLDL CALC NORMALSEE BELOWSumma Health Wadsworth - Rittman Medical CenterComment on above: Result Comment: <100 mg/dl OPTIMAL 100 - 129 mg/dl NEAR OR ABOVE OPTIMAL 130 - 159 mg/dl BORDERLINE HIGH 160 - 189 mg/dl HIGH >190 mg/dl VERY HIGHPerformed By: #### CMP, LIPID ####[facility] [address] [id number]. Jason PearsonTriglyceride [Mass/Vol]197 mg/dLCritically high<=150The [facility] CenterComment on above:Performed By: #### CMP, LIPID ####[facility] [address] [address]Dr. Jason PearsonVLDL CALC39.4 mg/dLSumma Health Wadsworth - Rittman Medical CenterComment on above:Performed By: #### CMP, LIPID ####[facility] [address] [address]Dr. Jason SungROALBUMIN, RAND URon 46-10-2669xMNS2.3 mg/LNormal<=30.0 The [facility] CenterComment on above:Performed By: #### MALBR ####[facility] [address] [address]Dr. Jason PearsonPROF 14(COMP METB)on 19-21-9896Jnfvbjl [Mass/Vol]3.7 g/dLNormal3.4-5.0The [facility] CenterComment on above:Performed By: #### CMP, LIPID #### [facility] [address] [place] [address] Dr. Jason PearsonAlbumin/Globulin [Mass ratio]1.0 {ratio}NormalThe [facility] Medical CenterComment on above:Performed By: #### CMP, LIPID #### [facility] [address] [address] [address] Jason Tilley [Catalytic activity/Vol]56 U/DLlyyno81-738Emu [facility] CenterComment on above:Performed By: #### CMP, LIPID #### [facility] [address] [address] [address] Jason Maria [Catalytic activity/Vol]43 U/UKgfndd57-10Kir [facility] CenterComment on above:Performed By: #### CMP, LIPID #### [facility] [address] [address] [address] Jason Martinson gap [Moles/Vol]11.2 mmol/LNormalThe [facility] Comment on above:Performed By: #### CMP, LIPID #### [facility] [address] [address] [address] Jason PearsonAST [Catalytic activity/Vol]24 U/DZmmazw65-22Hnw [facility] CenterComment on above:Performed By: #### CMP, LIPID #### [facility] [address] [address] [address] Jason PearsonBilirubin [Mass/Vol]0.9 mg/dLNormal0.2-1.0[facility] Comment on above:Performed By: #### CMP, LIPID #### [facility] [address] [address] [address] Jason PearsonCalcium [Mass/Vol]9.6 mg/dLNormal8.5-10.1[facility] Comment on above:Performed By: #### CMP, LIPID #### [facility] [address] [place] [address] Dr. Jason PearsonChloride [Moles/Vol]106 mmol/EYrwdzx59-198ApkPromedica Toledo Hospital Comment on above:Performed By: #### CMP, LIPID #### [facility] [address] [address] [address] Jason PearsonCO2 [Moles/Vol]30.1 mmol/JUfirbh57.0-32.0The [facility] Comment on above:Performed By: #### CMP, LIPID #### [facility] [address] [place] [address] Dr. Jason PearsonCreatinine [Mass/Vol]1.00 mg/dLNormal0.70-1.30The [facility] CenterComment on above:Performed By: #### CMP, LIPID #### [facility] [address] [address] [address] Jason TaylorGFR-AF BERMUDIAN>60Normal>=60The [facility] CenterComment on above:Performed By: #### CMP, LIPID #### [facility] [address] [address] [address] Jason TaylorGFR-NON AF BERMUDIAN>60Normal>=60The [facility] CenterComment on above:Performed By: #### CMP, LIPID #### [facility] [address] [address] [address] Jason PearsonGlobulin (S) [Mass/Vol]3.6 g/dLNormalThe [facility] CenterComment on above:Performed By: #### CMP, LIPID #### [facility] [address] [address] [address] Jason PearsonGlucose [Mass/Vol]110 mg/dLCritically fxix65-009Hea [facility] CenterComment on above:Performed By: #### CMP, LIPID #### [facility] [address] [place] [address] Dr. Jason PearsonPotassium [Moles/Vol]4.3 mmol/LNormal3.5-5.1The [facility] Comment on above:Performed By: #### CMP, LIPID #### [facility] [address] [place] [address] Dr. Jason PearsonProtein [Mass/Vol]7.3 g/dLNormal6.4-8.2The [facility] Comment on above:Performed By: #### CMP, LIPID #### [facility] [address] [place] [address] Dr. Jason PearsonSodium [Moles/Vol]143 mmol/ZAwjdyk770-146Ael [facility] Comment on above:Performed By: #### CMP, LIPID #### [facility] [address] [place] [address] Dr. Jason PearsonUrea nitrogen [Mass/Vol]15.0 mg/dLNormal7.0-18.0The [facility] CenterComment on above:Performed By: #### CMP, LIPID #### [facility] [address] [place] [address] Dr. Yilan ChangUrea nitrogen/Creatinine [Mass ratio]15.0 mg/mgNoRegency Hospital Cleveland EastComment on above:Performed By: #### CMP, LIPID #### [facility] [address] [address] [address] Jason Barnes [id number] Coag (PPP) [Relative time]1.11 {INR} NormalPromedica Toledo HospitalComment on above:Performed By: #### PT ####[facility] [address] [address]Dr. Jason Bourne GUIDELINESSEE [facility] for RehabilitationComment on above:Result Comment: DESIRED INR: 2.0 - 3.0 CONDITIONS NOT LISTED BELOW 2.5 - 3.5 FOR PROSTHETIC HEART VALVE REPLACEMENT 2.5 - 3.5 RECURRENT THROMBOSISPerformed By: #### PT ####[facility] [address] [address]. Sierra Obrien Coag (PPP) [Time]11.9 sCritically high9.0-11.6ThUniversity Hospitals Cleveland Medical Center Comment on above:Performed By: #### PT ####[facility] [address] [place], [place] [address]Dr. Jason Barnes [phone] Coag (PPP) [Relative time]1.32 {INR}NormalPromedica Toledo HospitalComment on above: Performed By: #### PT #### [facility] [address] [place] [address] Dr. Jason Bourne GUIDELINESSEE [facility] for RehabilitationComment on above:Result Comment: DESIRED INR: 2.0 - 3.0 CONDITIONS NOT LISTED BELOW 2.5 - 3.5 FOR PROSTHETIC HEART VALVE REPLACEMENT 2.5 - 3.5 RECURRENT THROMBOSIS Performed By: #### PT #### [facility] [address] [place] [address] Dr. Jason Obrien Coag (PPP) [Time]14.0 sCritically high9.0-11.6ThUniversity Hospitals Cleveland Medical CenterComment on above:Performed By: #### PT #### [facility] [address] [place] [address] Dr. Jason PearsonPROTIMEon [id number] Coag (PPP) [Relative time]1.08 {INR} NormalThe [facility] CenterComment on above:Performed By: #### PT #### [facility] [address] [place] [address] Dr. Jason PearsonINR GUIDELINESSEE BELOWSumma Health Wadsworth - Rittman Medical CenterComment on above:Result Comment: DESIRED INR: 2.0 - 3.0 CONDITIONS NOT LISTED BELOW 2.5 - 3.5 FOR PROSTHETIC HEART VALVE REPLACEMENT 2.5 - 3.5 RECURRENT THROMBOSIS Performed By: #### PT #### [facility] [address] [place] [address] Dr. Jason PearsonPT Coag (PPP) [Time]11.6 sNormal9.0-11.6The [facility] Comment on above:Performed By: #### PT #### [facility] [address] [place] [address] Dr. Jason PearsonXR HIP RT INJon [id number] HIP RT INJEXAMINATION: XR HIP RT INJ [...] Electronically authenticated by: RUPERT MOON Date: 2022-02-07 11:09[facility]ittman Medical CenterInitial Visit (Gastroenterology)on [id number] Visit (Gastroenterology)Chief ComplaintReferral from Dr. Bunch, for [...] from the patient and documented on the [facility] health history questionnaire. Pertinent positives [...] Oral Tablet; TAKE 1 TABLET D AILY;Therapy: (Recorded:78Vio6187) to Recorded Dispense: 0 Days ; #: Sufficient Tablet; Refill: 0; KP = N; Record; Last Updated By: Toyin Angeles; 03/28/2018 9:14:26 AM Flecainide Acetate 100 MG Oral Tablet; TAKE 1 TABLET EVERY 12 HOURS DAILY;Therapy: (Recorded:45Dhs0680) to Recorded Dispense: 0 Days ; #: Sufficient Tablet; Refill: 0; KP = N; Record; Last Updated By: Toyin Angeles; 03/28/2018 9:14:26 AM HydroCHLOROthiazide 25 MG Oral Tablet; TAKE 1 TABLET DAILY;Therapy: (Recorded:92Kcs7035) to Recorded Dispense: 0 Days ; #: Sufficient Tablet; Refill: 0; KP = N; Record; Last Updated By: Toyin Angeles; 03/28/2018 9:14:26 AM Imodium A-D CAPS;Therapy: (Recorded:25Qyn1723) to Recorded Dispense: 0 Days ; #: Sufficient CAPS; Refill: 0; KP = N; Record; Last Updated By: Toyin Angeles; 03/28/2018 9:14:26 AM Klor-Con M20 20 MEQ Oral Tablet Extended Release; TAKE 2 TABLETS TWICE DAILY;Therapy: (Recorded:38Gfr1190) to Recorded Dispense: 0 Days ; #: Sufficient Tablet Extended Release; Refill: 0; KP = N; Record; Last Updated By: Toyin Angeles; 03/28/2018 9:14:26 AM Lisinopril 40 MG Oral Tablet; TAKE 1 TABLET DAILY;Therapy: (Recorded:79Mcf3059) to Recorded Dispense: 0 Days ; #: Sufficient Tablet; Refill: 0; KP = N; Record; Last Updated By: Toyin Angeles; 03/28/2018 9:14:26 AM Loratadine 10 MG Oral Tablet; TAKE 1 TABLET DAILY;Therapy: (Recorded:52Vua3068) to Recorded Dispense: 0 Days ; #: Sufficient Tablet; Refill: 0; KP = N; Record; Last Updated By: Toyin Angeles; 03/28/2018 9:14:26 AM Metoprolol Tartrate 100 MG Oral Tablet; TAKE 1 TABLET DAILY;Therapy: (Recorded:36Bmb1741) to Recorded Dispense: 0 Days ; #: Sufficient Tablet; Refill: 0; KP = N; Record; Last Updated By: Toyin Angeles; 03/28/2018 9:14:26 AM Multivitamins TABS;Therapy: (Recorded:97Rbu6558)to Recorded Dispense: 0 Days ; #: Sufficient TABS; Refill: 0; KP = N; Record; Last Updated By: Toyin Rainey; 03/28/2018 9:14:26 AM Tamsulosin HCl - 0.4 MG Oral Capsule;Therapy: (Recorded:26Evm9442) to Recorded Dispense: 0 Days ; #: Sufficient Capsule; Refill: 0; KP = N; Record; Last Updated By: Toyin Angeles; 03/28/2018 9:14:26 AM Vitamin B-12 ER 1500 MCG Oral Tablet Extended Release;Therapy: (Recorded:99Mfk1426) to Recorded Dispense: 0 Days ; #: Sufficient TBCR; Refill: 0; KP = N; Record; Last Updated By: Toyin Angeles; 03/28/2018 9:14:26 AM Vitamin D3 2000 UNIT Oral Tablet;Therapy: (Recorded:51Mrs4266) to Recorded Dispense: 0 Days ; #: Sufficient Tablet; Refill: 0; KP = N; Record; Last Updated By: Toyin Angeles; 03/28/2018 9:14:26 AM Warfarin Sodium 5 MG Oral Tablet; TAKE 1 TABLET DAILY;Therapy: (Recorded:95Eap4542) to Recorded Dispense: 0 Days ; #: Sufficient Tablet;Refill: 0; KP = N; Record; Last Updated By: Toyin Angeles; 03/28/2018 9:14:26 AM Vitals Vital Signs Recorded: 28Mar2018 09:12AMHeart Iedu36Iqlgvaynirs02Aeoulkbl175Wxzvxezxb43Ujympx5 ft 2 nfZhugvi744 lb 6 ozBMI Lxemwufziq74.52BSA Calculated2.67 Physical ExamConstitutional General appearance: In no [...] salt-induced diarrhea; KP = N; [facility]Trans[facility]; Last Updated By: Rafi Rhodes; 03/28/2018 9:44:38 [...] MG Oral Tablet; TAKE 1 TABLET DAILY;Therapy: (Recorded:17Usw2011) to RecordedCholestyramine Light 4 GM Oral Packet; MIX THE CONTENTS OF 1 POWDER PACKETWITH 2-6 OZ OF NONCARBONATED BEVERAGE AND SWALLOW ONCE DAILY;Therapy: 14Jfe5713 to (Evaluate:25Pqr7230) Requested for: 74Fcr1930; LastRx:96Icx2502 OrderedFlecainide Acetate 100 MG Oral Tablet; TAKE 1 TABLET EVERY 12 HOURS DAILY;Therapy: (Recorded:67Vwr4276) to RecordedHydroCHLOROthiazide 25 MG Oral Tablet; TAKE 1 TABLET DAILY;Therapy: (Recorded:00Zth0670) to RecordedImodium A-D CAPS (Loperamide HCl);Therapy: (Recorded:21Jhk5148) to RecordedKlor-Con M20 20 MEQ Oral Tablet Extended Release; TAKE 2 TABLETS TWICE DAILY;Therapy: (Recorded:73Hpw4860) to RecordedLisinopril 40 MG Oral Tablet; TAKE 1 TABLET DAILY;Therapy: (Re corded:38Zjn1743) to RecordedLoratadine 10 MG Oral Tablet; TAKE 1 TABLET DAILY;Therapy: (Recorded:85Gsd3805) to RecordedMetoprolol Tartrate 100 MG Oral Tablet; TAKE 1 TABLET DAILY;Therapy: (Recorded:45Pkj3637) to RecordedMultivitamins TABS;Therapy: (Recorded:09Vqt8720) to RecordedTamsulosin HCl - 0.4 MG Oral Capsule;Therapy: (Recorded:86Xsp4093) to RecordedVitamin B-12 ER 1500 MCG Oral Tablet Extended Release;Therapy: (Recorded:70Uhn6216) to RecordedVitamin D3 2000 UNIT Oral Tablet;Therapy: (Recorded:72Wte5950) to RecordedWarfarin Sodium 5 MG Oral Tablet; TAKE 1 TABLET DAILY;Therapy: (Recorded :56Omn2891) to Recorded Signatures Electronically signed by : Devin Greer DO; Mar 28 2018 9:51AM EST (Author)Formerly [facility] Vital Signs Date TimeVital SignValuePerforming FlcfiebmiTwyhgpoc68-17-2082 11:20-0400Body otjezv247.96 cmDonald Lizarraga MD Work Phone: [phone]10-27-2025 11:20-0400 Body mass index (BMI) [Ratio]38 kg/u1WaqmmeDonald Lizarraga MD Work Phone: [phone] [place], [place] 133[address]10-27-2025 11:20-0400 Body rbhtid051.26 kgDonald Lizarraga MD Work Phone: [phone] [place], [place] 1331908-25-2025 10:51-0400 Body ordusd727.96 cmDonald Lizarraga MD Work Phone: [phone] [place], [place] 1331908-25-2025 10:51-0400 Body mass index (BMI) [Ratio]38.1 kg/v8PaxlswDonald Lizarraga MD Work Phone: [phone] [place], [place] 1331908-25-2025 10:51-0400 Body gztwlu430.7 kgDonald Lizarraga MD Work Phone: [phone] [place], [place] 1331908-06-2025 09:22-0400 Body wrkenp945.96 cmDonald Lizarraga MD Work Phone: [phone] [place], [place] 1331908-06-2025 09:22-0400 Body mass index (BMI) [Ratio]38.1 kg/g8YdrkbtDonald Lizarraga MD Work Phone: [phone])[address] [place], [place] 133[address]08-06-2025 09:22-0400 Body roloiq518.71 kgDonald Lizarraga MD Work Phone: [phone] [place], [place] 133[address]08-06-2025 09:22-0400 Diastolic blood afxoxhge86 mm[Hg]Donald Lizarraga MD Work Phone: [phone])[address] [place], [place] 1331908-06-2025 09:22-0400 Heart rate61 /Edis Lizarraga MD Work Phone: [phone] [place], [place] 133[address]08-06-2025 09:22-0400 Systolic blood puhzvsut439 mm[Hg]Donald Lizarraga MD Work Phone: [phone] [place], [place] 1331911-20-2024 09:52-0500 Body fdgtap682.96 cmDonald Lizarraga MD Work Phone: [phone] [place], [place] 1331911-20-2024 09:52-0500 Body mass index (BMI) [Ratio]38.4 kg/p0BobrqhDonald Lizarraga MD Work Phone: [phone] [place], [place] [address]1911-20-2024 09:52-0500 Body tzfucwitcbs32.5 [degF]Donald Lizarraga MD Work Phone: [phone] [place], [place] 133[address]-20-2024 09:52-0500 Body elmtvn783.62 kgDonald Lizarraga MD Work Phone: [phone] [place], [place] 1331911-20-2024 09:52-0500 Diastolic blood thjtouah06 mm[Hg]Donald Lizarraga MD Work Phone: [phone])[address] [place], [place] 1331911-20-2024 09:52-0500 Heart rate73 /Edis Lizarraga MD Work Phone: [phone] [place], [place] 1331911-20-2024 09:52-0500 SaO2% (BldA) [Mass fraction]98 %Donald Lizarraga MD Work Phone: [phone] [place], [place] 1331911-20-2024 09:52-0500 Systolic blood hqocpewz051 mm[Hg]Donald Lizarraga MD Work Phone: [phone] [place], [place] 1331911-17-2024 09:18-0500 Body wjigkc892.96 cmDonald Lizarraga MD Work Phone: [phone] [place], [place] 1331911-17-2024 09:18-0500 Body mass index (BMI) [Ratio]38.5 kg/h0DlqhdkDonald Lizarraga MD Work Phone: [phone])[address]11-17-2024 09:18-0500 Body aohbgytptcl07.1 [degF]Donald Lizarraga MD Work Phone: [phone])[address]11-17-2024 09:18-0500 Body rhifdg842.13 kgDonald Lizarraga MD Work Phone: [phone])[address]11-17-2024 09:18-0500 Diastolic blood gkyzilgt93 mm[Hg]Donald Lizarraga MD Work Phone: 1(959)[address]11-17-2024 09:18-0500 Heart rate73 /Edis Lizarraga MD Work Phone: [phone])[address] [place], [place] 133[address]-17-2024 09:18-0500 Respiratory rate18 /Edis Lizarraga MD Work Phone: [phone] [place], [place] [address]-17-2024 09:18-0500 SaO2% (BldA) [Mass fraction]96 %Donald Lizarraga MD Work Phone: [phone])[address]11-17-2024 09:18-0500 Systolic blood gusonnpz102 mm[Hg]Donald Lizarraga MD Work Phone: [phone])[address]10-30-2024 09:24-0400 Body rwpmep047.96 cmSelect [facility]-30-20[facility] 09:24-0400Body mass index (BMI) [Ratio]38.8 kg/h6PqaltsncuSelect [facility] [place]10-30-2024 09:24-0400Body ojvouysyeau72 [degF][facility]10-30-2024 09:24-0400Body guamym735.15 kgSelect [facility] [place]10-30-2024 09:24-0400Diastolic blood galdcrce13 mm[Hg][facility] 05-08-2024 09:24-0400Heart rate70 /[facility] 05-08-2024 09:24-0400Respiratory rate18 /[facility] 05-08-2024 09:24-4675RnC7% (BldA) [Mass fraction]98 %[facility]10-30-2024 09:24-0400Systolic blood gwatawfx041 mm[Hg][facility]07-16-2024 14:11-0400Blood Pressure LocationJENNIFER TIANA [facility]07-16-2024 14:11-0400Body twadtfscseg98.88 [degF]CATHIE HERNANDEZ [facility]07-16-2024 14:11-0400Diastolic blood ksvojtkx07 mm[Hg]CATHIE HERNANDEZ [facility]07-16-2024 14:11-0400Heart rate67 /minJENNIFER TIANA [facility]07-16-2024 14:11-0400Respiratory rate16 /minJENNIFER TIANA [facility]07-16-2024 14:11-0400Systolic blood mqetowqa584 mm[Hg]CATHIE HERNANDEZ [facility]04-11-2024 10:Body iftqbq636.96 cmSelect [facility] [place]04-11-2024 10:040Body mass index (BMI) [Ratio]40.1 kg/s3UieyxwwkkSelect [facility] [place]04-11-2024 10:040Body pwvfoo501.63 kgSelect [facility] [place]04-11-2024 10:040Diastolic blood aevrlynm71 mm[Hg] [facility]04-11-2024 10:040Heart rate71 /minSelect [facility] [place]04-11-2024 10:3759ChW7% (BldA) [Mass fraction]98 % [facility]04-11-2024 10:19-0400Systolic blood dywhcrbr401 mm[Hg][facility]01-04-2024 15:30-0500Body ndjjeu384.96 cm Donald Lizarraga Other [employer] Other 01-04-2024 15:30-0500Body mass index (BMI) [Ratio] 40.18 kg/r9Zkhqfw Elham Other [employer] Other 01-04-2024 15:30-0500Body nggsxe103.98 kgDonald Elham Other [employer] Other 01-04-2024 15:30-0500Diastolic blood tsuwgdkb95 mm[Hg] Donaldtrixie Lizarraga Other [employer] Other 01-04-2024 15:30-0500Systolic blood mm[Hg] Donaldtrixie Lizarraga Other [employer] Other 07-18-2023 10:00-0400Blood Pressure LocationJENNIFER TIANA [facility]07-18-2023 10:00-0400Diastolic blood iftpadko29 mm[Hg]CATHIE TIANA [facility]07-18-2023 10:00-0400Heart rate72 /minJENNIFER TIANA [facility]07-18-2023 10:00-0400Respiratory rate16 /minJENNIFER TIANA [facility]07-18-2023 10:00-0400Systolic blood mm[Hg]CATHIE TIANA [facility]03-30-2023 10:17-0400Diastolic blood mclkfpux34 mm[Hg]Daigle SALAM [facility]03-30-2023 10:17-0400Heart rate69 /minMaher SALAM [facility]03-30-2023 10:17-0400 Respiratory rate16 /minMaher SALAM [facility]03-30-2023 10:17-6517GwK5% (BldA) [Mass fraction]99 %Daigle SALAM [address] [place], [place] [address]103-30-2023 10:17-0400 Systolic blood xmulisjn240 mm[Hg]Daigle SALAM [facility]03-30-2023 10:05-0400 Diastolic blood mm[Hg]Daigle SALAM [facility]03-30-2023 10:05-0400Heart rate67 /minMaher SALAM [facility]03-30-2023 10:05-0400 Respiratory rate18 /minMaher SALAM [facility]03-30-2023 10:05-3339MjY5% (BldA) [Mass fraction]99 %Daigle SALAM [facility]03-30-2023 10:05-0400 Systolic blood rjpglfye933 mm[Hg]Daigle SALAM [facility]03-30-2023 10:00-0400 Diastolic blood mm[Hg]Daigle SALAM [facility]03-30-2023 10:00-0400Heart rate66 /minMaher SALAM [facility]03-30-2023 10:00-0400 Systolic blood aklsxkqp078 mm[Hg]Daigle SALAM [facility]03-30-2023 09:55-0400 Respiratory rate16 /minJaviher SALAM [facility]03-30-2023 09:52-0400Body tuhcsrqoupx06.7 [degF]Oxana IBARRA [facility]03-30-2023 09:40-0400 Respiratory rate1 /Vitaher SALAM [address] [place], [place] 6410803-30-2023 08:21-0400Blood Pressure LocationOxana IBARRA [address] [place], [place] 76[address]103-30-2023 08:21-0400Body fjkshspavsn22.88 [degF]Oxana IBARRA [facility]01-20-2023 14:15-0500 Diastolic blood lkogmuau30 mm[Hg]Elicia Mcmillan [phone]-YufxmCommunity [facility]01-20-2023 14:15-0500Mean blood unhfoibb756 mm[Hg]Elicia Hipolito [phone]-DzldzCommunity Regional Medical Center01-20-2023 14:15-0500Systolic blood lpjroyyc189 mm[Hg]Elicia Garciametz [phone]-HavoaCommunity Regional Medical Center01-20-2023 14:11-0500Blood Pressure LocationElicia Mcmillan [phone]-Ifyky[address] [place], [place] 5757901-20-2023 14:11-0500Body bapatitxjrz31.88 [degF]Eliciagurwinder Zamarripaz [phone]-Gdihh[address] [place], [place] 5757901-20-2023 14:11-0500Diastolic blood radloqhp65 mm[Hg]Elicia Mcmillan [phone]-NljvpCommunity Regional Medical Center01-20-2023 14:11-0500Heart rate77 /minBeth Hipolito [phone]-LfzkdCommunity Regional Medical Center01-20-2023 14:11-0500Systolic blood mm[Hg]Elicia Mcmillan [phone]-KifbaCommunity Regional Medical Center01-17-2023 10:45-0500Body ybfker628.96 cmDonald Lizarraga Other [facility] [employer] Other 01-17-2023 10:45-0500Body mass index (BMI) [Ratio] 41.47 kg/k7HmejbbDonald Lizarraga Other [employer] Other 01-17-2023 10:45-0500Body .51 kgDonald Lizarraga Other [employer] Other 01-17-2023 10:45-0500Diastolic blood zqenmhru37 mm[Hg] Donald Lizarraga Other [employer] Other 01-17-2023 10:45-3627ZhK8% (BldA) [Mass fraction]97 % Donald Lizarraga Other [employer] Other 01-17-2023 10:45-0500Systolic blood asoalsya508 mm[Hg] Donald Lizarraga Other [employer] Other 04-20-2022 12:02-0400Blood Pressure LocationJENNIFER TIANA [facility] [place] 04-20-2022 12:02-0400Diastolic blood euneludn92 mm[Hg] [facility] 04-20-2022 12:02-399Heart rate77 /minCATHIE HERNANDEZ [facility] 04-20-2022 12:-399Systolic blood xgqpevec010 mm[Hg] CATHIE HERNANDEZ [facility] Encounters Encounter DateEncounter TypeCare ProviderFacilityStart: 05-07-2025 End: 78-26-1181Idukxu flowsheetJr. Medina Alcala DO Work Phone: [facility]Start: 05-07-2025 End: 13-58-5469Qswfuj flowsheetJr. Medina Alcala DO Work Phone: [facility]opaedicsStart: 05-07-2025 End: 54-79-8892Oyndin outpatient new 30 minutesJr. Medina Alcala DO Work Phone: [facility] Dodge OrthopaedicsComment on above:Primary osteoarthritis of right hip (Primary Dx); Acute right hip painStart: 05-07-2025 End: 83-93-8636vxoyjzlqddOQ., MEDINA ALCALANot AvailableStart: 05-05-2025 End: 90-60-7934jcmprlbykjSmezka E Braun MD Work Phone: -[facility] BellueStart: 05-05-2025 End: 47-45-3691Ssadvok encounter procedureJuliudmila Carbone DO-[facility] Work Phone: Start: 78-51-2459Dlb-patient / Non-visitAndrius Jesus Alberto [facility] Work Phone: Start: 04-28-2025 End: 78-80-2106esnakgxoxhBpvrovb Kimberlynytshraddhaas Jesus Alberto MDFacility:[facility] [place] Start: 94-28-1902Btw-patient / Non-visitAndrius Jesus Alberto [facility] Work Phone: Start: 04-14-2025 End: 10-92-3455xtkkeeddxiNqneyom Aylin Granda MDFacility:[facility] Start: 04-02-2025 End: 78-48-6641Oosdpgy encounter statusPrasanth Perez MD Work Phone: [facility]: 04-02-2025 End: 30-87-7270KmxmmoMboeisc Almahameed MD Work Phone: [facility] CardiologyComment on above:RefillStart: 03-24-2025 End: 87-02-2907kuoxrvednbCmkaucv Aylin Granda MDFacility:[facility] Start: 03-03-2025 End: 93-03-5666lnnunmsmloSezwdj E Braun MD Work Phone: [facility] Work Phone: Start: 03-03-2025 End: 71-49-9993Rpelssv encounter procedurePeter Carbone DO-[facility] [place] Work Phone: Start: 02-12-2025 End: 51-45-5691gsdlfuhedqJnytek E Braun MD Work Phone: [facility] Work Phone: Start: 02-12-2025 End: 06-37-0084Jaaidew encounter procedureDonald Lizarraga MD-[facility] Work Phone: Start: 12-23-2024 End: 52-53-2796wautotrcfnShtksun Aylin Granda MDFacility:[facility] [place] Start: 16-10-4648Ife-patient / Non-visitAndrius Bettyedraitis MD-[facility] Work Phone: Start: 12-16-2024 End: 45-04-5637wtpjcqylwmMmliielLindsay Granda MDFacility:[facility] [place] Start: 12-14-2024 End: 62-55-9813Sduryi encounterSguillejavi Carnes DO Work Phone: [facility]Start: 84-97-9355Dkl-patient / Non-visit Merlyn Casillas [facility] Work Phone: Start: 11-25-2024 End: 93-00-7761iyysmkvxmdPnwejdeLindsay Granda MDFacility:[facility] [place] Start: 11-06-2024 End: 24-84-6970GkcktvAzncemdRandall Perez MD Work Phone: [facility] CardiologyComment on above:RefillStart: 05-29-2024 End: 24-70-4667okbyotokwaVyyhdl E Braun MD Work Phone: [facility] Work Phone: Start: 05-29-2024 End: 41-75-6692Pgmcrxi encounter procedureDonald Lizarraga MD Work Phone: [facility] Work Phone: Start: 05-26-2024 End: 47-60-5976sigmuofnubLlixxm E Braun MD Work Phone: [facility] Work Phone: Start: 05-26-2024 End: 95-57-7015Kisoznr encounter procedureDonald Lizarraga MD Work Phone: [facility] Work Phone: Start: 05-08-2024 End: 63-20-3443btjmjbfssvZwbnntwsfC[facility] Work Phone: Start: 05-08-2024 End: 51-16-5113Hmkkymz encounter procedureLouisa [facility]ician [facility] Manny Work Phone: Start: 07-47-5030Kas-patient / [facility] Work Phone: Start: 04-15-2024 End: 89-76-7977Dshvzt outpatient visit 25 minutesPrasanth Perez MD Work Phone: [facility] Medical CardiologyComment on above:PAF (paroxysmal atrial fibrillation) (HCC) (Primary Dx)Start: 04-15-2024 End: 30-51-8981qvebdimnpqOTHEZRK ALMAHAMEEDFacility:METROHealthStart: 01-23-2024 End: 53-23-8141fvpmeodgrnEJBTSQSC E PERRYFacility:EU BellevueStart: 01-23-2024 End: 92-64-1942Itxxltw encounter procedureJENNIFER E TIANA [facility] start: 12-27-2023 End: 74-91-1255Vfybtvj encounter statusSaima Deyvi DO Work Phone: [facility] MedicalStart: 12-27-2023 End: 38-42-6995MnekboKoagt Karim DO Work Phone: MetwoUjkthh CardiologyComment on above:RefillStart: 10-19-2023 End: 58-82-3108wbaozcmiyvJumdmyjxtC[facility] Work Phone: Start: 10-19-2023 End: 31-58-4925Zchssvx encounter procedureLouisa [facility]ician [facility] Work Phone: Start: 73-08-4921Lwv-patient / Non-visitHarris [facility] Hospitalaxel [facility] Work Phone: Start: 07-20-2023 End: 16-69-3593ezwvtdvaxcEfvmje Braun Other [employer] Other Start: 99-56-3286Fxwfbsyla encounterDonald Adan [facility] ClinicStart: 07-13-2023 End: 60-40-2740josgticywjGeiltf Braun Other [employer] Other Start: 76-06-6377Myilwc outpatient visit 15 minutes Donald [facility] ClinicStart: 95-50-8666Wznjudr encounter status Emperatriz Carnes DO Work Phone: Your Policy ManagerroHealthStart: 62-37-8418KlalqfCgeie Karim DO Work Phone: [facility] CardiologyComment on above:RefillStart: 03-29-2023 End: 04-37-7835Rzncut outpatient visit 15 minutesSaquique Reynoldsim DO Work Phone: A[facility]a CardiologyComment on above:Persistent atrial fibrillation (HCC) (Primary Dx); Anticoagulated; JAVED on CPAPStart: 03-28-2023 End: 98-67-9511pmnpyxlykoZexyjs Braun Other [employer] Other Start: 78-28-3303Spaqiimal encounterDonald Adan [facility] ClinicStart: 25-89-0489Kzhlpd encounterSaima Karim DO Work Phone: Your Policy ManagerroHealthStart: 27-64-4653Itbpprvlp encounterSaima Karim DO Work Phone: [facility] CardiologyComment on above:Question about medicationRefillStart: 30-74-0966Chgsbvk encounter statusSaima Karim DO Work Phone: metroHealthStart: 49-20-1060XrkzebEhuap Karim DO Work Phone: A[facility]nga CardiologyComment on above:RefillStart: 01-24-2023 End: 67-77-3696Osf Drop offJENNIFER E TIANA [facility] Start: 01-24-2023 End: 06-66-9267Nfwuznx encounter procedureJENNIFER E TIANA [facility] start: 11-10-2022 End: 71-15-4462dptgcwqizfOUTUDJI HALKER .Facility:K5Megvs: 11-07-2022 End: 42-30-3250vqdwmlxltlDP DONALD Mccaincility:P8Zsdzp: 77-01-2068nvmuheizix NARENDRANATH LAKSHMIPATHY .Facility:H0Bbbfx: 10-11-2022(Televisit) Televisit Donald [facility]: 10-11-2022 End: 84-89-7030agoahrfesuAlvjfo Braun Other [place] [employer] Other Start: 10-10-2022 End: 23-57-1774scpjvfctwyAMUBRC H FAWWADFacility:N8Rpuaw: 10-06-2022 End: 61-60-3131Mvrthcm encounter procedureMaher IBARRA [facility] Start: 08-38-9929Eujvmzoah encounterMarsekou [facility] Hospitaltart: 2022 End: 63-18-4021oexerrrnmiSK DONALD Ruano [facility] [employer] Other Start: 09-07-2022 End: 19-25-1131cpkvjbujeePUENZL H FAWWADFacility:C3Eklym: 08-10-2022 End: 61-47-3812jvejsbcueuAEHLSJ H FAWWADFacility:C3Wvetv: 07-29-2022 End: 19-60-6258Iguhlbu encounter procedureElicia Mcmillan [phone]-JtjqxPaulding [facility] Start: 07-26-2022 End: 90-58-2495zpkdkcqderLtyyjl Braun Other [place] [employer] Other Start: 83-83-2078Qfwitq outpatient visit 15 minutes Donaldtrixie Cross [facility] Hospitaltart: 07-20-2022 End: 21-93-3852hwfdtjdnbrBL JADENSUGAR VILLA .Facility:W1Zhkrj: 07-11-2022 End: 69-73-9323luxngnlswjYRBSQC Gurwinder FAWWADFacility:T1Bankp: 06-28-2022 End: 84-22-8197rvppxsxghwBP JADEN Michael VILLA .Facility:B1Chvsl: 06-09-2022 End: 73-81-6407djetkdrgtfIH DONALD E BRAUNFacility:O7Lxydz: 05-26-2022 End: 93-96-1616gozwlisruoDZ DONALD E BRAUNFacility:Y5Jgmdl: 05-10-2022 End: 05-55-7134nrzvmmupliYU DONALD E BRAUNFacility:M1Jatux: 04-10-2022 End: 76-34-5898tssgrnnqcxCB DONALD E BRAUNFacility:J9Ogvns: 04-07-2022 End: 60-09-6975lceayynhmvKQ DONALD E BRAUNFacility:G9Ywyrj: 03-22-2022 End: 79-76-1978yewipjgqflGG DONALD E BRAUNFacility:D7Vkshi: 03-10-2022 End: 93-31-9400dwtoczggexTP DONALD E BRAUNFacility:F5Jaaxv: 03-03-2022 End: 55-79-0569cspxsqtxvtVS DONALD E BRAUNFacility:X3Sscnn: 27-44-8985Ncomvwr encounter statusSaquique Carnes DO Work Phone: [facility] Protective CardiologyStart: 00-19-2624JblkrfKnjap Karim DO Work Phone: [facility] Medical CardiologyComment on above:RefillStart: 02-07-2022 End: 02-11-5298amrwpytborYG DONALD E BRAUNFacility:T2Nmntn: 02-07-2022 End: 64-01-1540zescvofeemBS MARCIA E BRAUNFacility:L1Btvny: 37-84-2134Oaatfb Emperatrizquique Carnes DO Work Phone: [facility] Protective CardiologyComment on above:RefillStart: 01-07-2022 End: 64-59-9236szehhqlboqOM MARCIA E BRAUNFacility:O2Ckghy: 15-73-7023Wetorcr encounter statusSaima Karim DO Work Phone: [facility] CardiologyStart: 98-91-4627RwyhjeFljth Karim DO Work Phone: [facility] CardiologyComment on above:RefillStart: 21-94-4108XowbdmYikvn Karim DO Work Phone: [facility] Medical CardiologyComment on above:RefillStart: 10-27-2021 End: 03-35-2656Kwxunxp encounter procedureJEPATRICIA HERNANDEZ [facility] start: 47-65-2547Quaoccx encounterDevin Greer Facility:[facility] [place] [place] Medical BuildingStart: 04-24-2017 End: 52-59-7812EzdaqpcnfbLRGTREP PHYSICIANFacility:UTMCStart: 03-03-2017 End: 68-17-8915QuhwdavpmjFNDUWEK PHYSICIANFacility:[facility] Procedures DateProcedureProcedure DetailPerforming ClinicianStart: 10-54-2355Yaiix hip unilateral with pelvis 2-3 viewsJr. Medina Thornton Stepanic DO Work Phone: Start: 29-73-9805Wvfye chest X-rayDonald Lizarraga MD Work Phone: Start: 53-82-3607GfrbbjbvuwtOu. Stepanic DO Work Phone: Start: 70-19-9909NydvjpaqgeuZeqwd SALAM Start: 27-85-7495GOF wayneDR JADEN VILLA .Comment on above:Performed By: #### PSASC #### [facility] [address] [address] [address] Jason PearsonStart: 57-59-3415Tmrxlwjgvxang prostatectomyJENNIFER TIANA Start: 68-21-3061Ieudjwaoxqx biopsy of prostate using ultrasound guidanceJENNIFER TIANA Start: 42-92-1281SieegvmjtpbsmfifxtedkpaiolPguv Hipolito Start: 51-99-6816Gxipklzfn for malignant neoplasm of colonMarcia Lizarraga Other Start: 05-32-8498Dlyaofbyd for malignant neoplasm of prostateMarcia Lizarraga Other Start: 37-67-5315Dqmchwt of sutureMarcia Lizarraga Other Start: 50-71-6853Xwvljni examination of patientMarcia Lizarraga Other ColonoscopyJENNIFER TIANA Excision of cystJENNIFER TIANA Local anesthetic nerve block in lower limbJENNIFER TIANA Screening for malignant neoplasm of colonMarcia Lizarraga Other Screening for malignant neoplasm of prostateMarcia Lizarraga Other Special back careJENNIFER TIANA Plan of Treatment DateCare ActivityDetailAuthorStart: 28-89-7662Mthxwuxcq for malignant neoplasm of colonNOMS HealthcareStart: 69-27-8490Ropqs panelCholesterolMetroHealthStart: 05-07-2025 End: 21-65-1297Ryvlgce encounter ypkkozrvq92/29/2025 10:45 AM EDT Office Visit [facility] [address] [place] [address] Jr. Medina Alcala, [address] [address] [place] [facility] Comment on above:ArrivedStart: 83-38-8396CRQBB-19 Vaccine ( season) COVID-19 Vaccine ( season)[facility] HealthcareStart: 72-81-2187DKDTJ-19 Vaccine ( season)COVID-19 Vaccine ( season)[facility] Start: 82-00-4307Kpeoyfrtu vaccinationInfluenza Vaccine (#1)MetroHealthStart: 67-57-5214Kgbugzr [facility] Work Phone: Start: 10-44-3038RNNLU-19 Vaccine ( season) COVID-19 Vaccine ( season)MetroHealthStart: 84-27-7558OCQXA-19 Vaccine ( season)COVID-19 Vaccine ( season)[facility] Start: 41-14-2514Ukahantbw vaccinationInfluenza Vaccine (#1)MetroHealthStart: 55-60-6383Cferbsshs vaccinationInfluenza Vaccine (#1)MetroHealthStart: 03-29-2023 End: 03-83-3533Jscwwgwxdils consultation with krqabge9203/29/2023 4:20 PM EDT Telemedicine [facility] [address] [place] [address] Emperatriz Carnes DO [address] [place] [address] [facility] CardiologyStart: 03-10-2023 COVID-19 Vaccine ( season)COVID-19 Vaccine ( season) [facility]HealthStart: 15-90-6127Dgqdycalc vaccinationInfluenza Vaccine (#1) MetroHealthStart: 82-39-8789Fzeqekdmvnaj vaccinationMetroHealthStart: 04-09-2022 Influenza vaccinationInfluenza Vaccine (#1)MetroHealthStart: 22-28-1933ERYNA-19 Vaccine (5 - Booster for Pfizer series)COVID-19 Vaccine (5 - Booster for Pfizer series)[facility]roHealthStart: 95-54-8012SPFXX-19 Vaccine (5 - Pfizer series)COVID-19 Vaccine (5 - Pfizer series)[facility]roHealthStart: 27-92-8091Qcisuprvg vaccination Influenza Vaccine (#1)[facility]roHealthStart: 52-27-8939URROA-19 Vaccine (4 - Booster for Pfizer series)COVID-19 Vaccine (4 - Booster for Pfizer series)[facility] Start: 77-56-2837CGUTC-19 Vaccine (4 - Booster for Pfizer series)COVID-19 Vaccine (4 - Booster for Pfizer series)MetroHealthStart: 75-91-0578Eaoik metabolic 2000 panel - Serum or PlasmaBasic Metabolic PanelMetroHealthStart: 54-12-7200Nsmezgcbfe measurementBasic Metabolic PanelMetroHealthStart: 10-72-3202Yfwlgi wellness visitAnnual Wellness Visit (G0438)MetroHealthStart: 35-67-9947Kwnwguhjr B (HBV) Vaccine (optional start 60+ years)Hepatitis B (HBV) Vaccine (optional start 60+ years)[facility]roHealthStart: 22-89-9880YUX vaccine (adult) (1 - Risk 60-74 years 1-dose series)RSV vaccine (adult) (1 - Risk 60-74 years 1-dose series)[facility]roHealthStart: 22-43-9847FRY vaccine (optional 60+ years) RSV vaccine (optional 60+ years)MetroHealthStart: 49-27-4229Ndhuppmyxlr of occult blood in single stool specimenFITMetroHealthStart: 50-67-5139Eflucffim for malignant neoplasm of colonCRC ScreeningMetroHealthStart: 66-97-3703Pskvcpoi (RZV) Vaccine (1 of 2)Shingles (RZV) Vaccine (1 of 2)MetroHealthStart: 66-15-3699Wyyiycyuu for malignant neoplasm of colonMetroHealthStart: 1990 Lipid panelCholesterolMetroHealthStart: 99-43-5927Dhkujxuzw A (HAV) Vaccine (optional start 19+ years)Hepatitis A (HAV) Vaccine (optional start 19+ years) MetroHealthStart: 16-95-2092Znecmryib C screeningHepatitis C AntibodyMetroHealth Start: 72-20-6988Cujgijs + diphtheria + acellular pertussis vaccine (product) Tdap BoosterMetroHealthStart: 15-70-3668QDtW/Tdap/Td Vaccines (1 - Tdap) DTaP/Tdap/Td Vaccines (1 - Tdap)[facility] HealthcareStart: 46-06-2313JMNWW-19 Vaccine ( formulation)COVID-19 Vaccine ( formulation)[facility] Start: 35-52-5171Ksotdpxeo for malignant neoplasm of colonMetroHealthPatient EducationLow back pain in adultsAdena [facility]ayette Medical Center Work Phone: Patient referralAdena Fayette Medical Center Work Phone: Immunizations Immunization DateImmunizationNotesCare YwzelfeuQosflzlw79-21-0063asxffoyiu virus vaccine, unspecified formulationJr. Stepanic DO Work Phone: [facility] SystemKrgsdhpznr65-41-4186Jndvuplzyzzr conjugate 20 valent (PCV20), polysaccharide SHM076 conjugate, adjuvant, PF (BDW=767)Emperatriz Karim DO Work Phone: [phone]pYsjvaq43-52-6735csjdkmwqp virus vaccine, unspecified formulationCATHIE TIANA [facility]11-01-2023Influenza, seasonal vaccine, quadrivalent, adjuvanted, 0.5mL dose, preservative free (ZIQ=653)Emperatriz Karim DO Work Phone: [phone]qQyapwh75-52-1798nxrsumvyw virus vaccine, unspecified formulationElicia Mcmillan [phone]-HjexzPaulding County Hospital Digestive Rvgeow25-02-5301 Influenza, seasonal vaccine, quadrivalent, adjuvanted, 0.5mL dose, preservative free (SWM=538)Emperatriz Karim DO Work Phone: [phone]cCahakq46-75-3114Hfiutt Monovalent (12+ yrs) SARS-COV-2 (COVID-19) vaccine, mRNA, spike protein, LNP, pres. free, 30mcg/0.3mL dose, art-sucrose (LHF=025)Emperatriz Carnes DO Work Phone: PqyxzWfdnse60-252842QyzstQjlqwm22-98-4899IOXF-XyR-3 mRNA (sjzntuxsztc-ztsi-ggwuvpu) vaccineBe Hipolito 246-8910Kdylpb-TttpiCommunity Regional Medical Center02-09-2022 pneumococcal conjugate vaccine, 13 valentSlesly Carnes DO Work Phone: [phone]dBjpqmo33-79-7559QEFE-GgQ-8 (COVID-19) mRNA BNT- 162b2 vavianney Mcmillan 618-0039Xtysef-DrojwCommunity Regional Medical Center11-17-2021 SARS-CoV-2 (COVID-19) Ad26 vaccine, recombinantJENNIFER TIANA [facility] 11914467-93-3121Epoggxqyx, seasonal vaccine, quadrivalent, adjuvanted, 0.5mL dose, preservative free (CMR=439)Emperatriz Carnes DO Work Phone: [phone]hKwgblp82-13-9379fupfidcsg virus vaccine, unspecified formulationSlesly Carnes DO Work Phone: Pmxsig-DeugzCommunity Regional Medical Center10-20-2021 influenza virus vaccine, unspecified formulationJENNIFER TIANA [facility] 10-131869-20-5910DAVU-OtY-7 (COVID-19) Ad26 vaccine, recombinantJENNIFER TIANA [facility] 03611187-88-1513Weuksp SARS-COV-2 (COVID-19) vaccine, age 12+ yrs, mRNA, spike protein, LNP, preservative free, 30 mcg/0.3mL dose (ITH=439) Emperatriz Karim DO Work Phone: MetroHealthComment on above:Result Comment: 2022-07-27: WDG6370-50-3714Tovvfl SARS-COV-2 (COVID-19) vaccine, age 12+ yrs, mRNA, spike protein, LNP, preservative free, 30 mcg/0.3mL dose (IMY=467)Emperatriz Karim DO Work Phone: MetroHealthComment on above:Result Comment: 2022-07-27: MMD4558-09-3169spzlepdju virus vaccine, unspecified formulation CATHIEHUNTER AZEVEDORY [facility] 10174895-64-3192bcvdwxwgu virus vaccine, unspecified formulationElicia Zamarripaz 909-6983Egstrg-ItlcyPaulding County Hospital Digestive Escvzs89-12-6638 Influenza, seasonal vaccine, quadrivalent, adjuvanted, 0.5mL dose, preservative free (XYU=942)Emperatriz Karim DO Work Phone: [phone]gWnwxzb09-19-2258olousekji virus vaccine, unspecified formulationElicia Zamarripaz 739-9377Jyzuox-XotyiPaulding County Hospital Digestive Ejrrzv30-85-9785 influenza, high dose seasonal, preservative-freeSaima Karim DO Work Phone: [phone]vGcgkrg40-06-3489aylmaqgwk virus vaccine, unspecified formulationElicia Zamarripaz 683-5761Xfqvof-TjopyPaulding County Hospital Digestive Oxifrz84-68-8034 Influenza, injectable, [place]in [place]ney Canine Kidney, preservative free, quadrivalentSaima Karim DO Work Phone: [phone]pHolcgc96-41-7024rmhjvvhyt virus vaccine, split virus (incl. purified surface antigen)Donald Lizarraga Other [employer] Other 049374-81-6299jdshbgbra virus vaccine, unspecified formulationSelect [facility]10-11-2016pneumococcal polysaccharide vaccine, 23 valentDonald Lizarraga Other [facility]12-15-2014influenza virus vaccine, split virus (incl. purified surface antigen)Donald Lizarraga Other [employer] Other 12363181-19-7083sggsvvfgf virus vaccine, unspecified formulationSelect [facility] [place]08-07-2014diphtheria, tetanus toxoids and acellular pertussis vaccine, unspecified formulationDonald Lizarraga Other [facility] Payers DatePayer CategoryPayerPolicy [id number] Health InsuranceAARP [id number] Indemnity [facility] [id number] 2023Unknown2019Medicare [id number] 2019Medicare [facility] [id number] [id number] 2.0.1.40892[id number] 2.0.7.427607.9429-02-1954 [id number] 2..1.284908.3.579.2.92143-31-9485Xydtohy4376798 2.0.1.609686.3.579.2.06950-28-8494Jbjpawz0494945 2.0.1.850908.3.579.2.10842-95-6287Ypvdgjr0819904 2.0.1.000627.3.579.2.26110-14-0338Jlzfcia3740586 2.840.1.334363.3.579.2.82956-49-4418Fcyjyqf3385727 2.16840.1.603201.3.579.2.39839-77-8192Qqlbqdm5524765 2.16840.1.323105.3.579.2.30992-09-6145Ycjduqt9901217 2.840.1.466325.3.579.2.24330-35-7787Abubami4782856 2.16.840.1.106496.3.579.2.38711-20-4435Vgepzpi0181256 2.16.840.1.590077.3.579.2.01823-03-1629Wnlfdxf5421642 2.16.840.1.711770.3.579.2.61613-54-2842Szwwnci4625677 2.16.840.1.395139.3.579.2.07502-53-0904Qhlboub0030021 2.16840.1.970028.3.579.2.96720-28-7295Xxvxtjp2771154 2.840.1.671110.3.579.2.98681-14-4355Ecavghq8718320 2.840.1.954394.3.579.2.76794-80-7331Ykwgmet5580818 2.840.1.132912.3.579.2.70407-06-4971Vtqrmcz7466707 2.840.1.988292.3.579.2.10260-58-8651Zbibfyw0024238 2.840.1.110726.3.579.2.69573-98-7984Qmxaekv2899190 2.840.1.303639.3.579.2.30275-74-5641Gtyjuoa6592186 2.16840.1.391100.3.579.2.59213-41-3375Xyxyqsb8287451 2.16840.1.846911.3.579.2.02307-66-4517Gshdxgq1899756 2.16840.1.068209.3.579.2.41963-62-2177Xparlgs5826936 2.16840.1.063033.3.579.2.80361-21-4184Oywrbfd03830542 2.16.840.1.653002.3.579.2.64819-65-3547Eohroak818047321 2.16.840.1.504882.3.579.2.43372-52-5582Wuqdhzt320936015 2.16.840.1.338957.3.579.2.89042-61-4015Unpyqpz330560896 2.16.840.1.421085.3.579.2.73019-55-2037Wawnfrr537009088 2.16.840.1.355205.3.579.2.41776-87-6188Woxgavd233881979 2.16.840.1.349445.3.579.2.39789-26-7710Bndqqqy150509777 2.16.840.1.514092.3.579.2.82099-20-6324Ihoipjx148817651 2.16.840.1.025905.3.579.2.07449-70-6428Ncngkqb00672232 2.16.840.1.805475.3.579.2.455192-88-1263Accroho80227058 2.16840.1.012764.3.579.2.6069MwhijvkMSW491Y53183ZevoruzMOLUI328616988 659u7b06-t2f3-7473-0v22-t757848791ae Social History DateTypeDetailFacilityStart: 09-03-2020 End: 85-97-0535Kzoysiu smoking statusNever smoked tobacco (finding)[facility] start: 39-48-7371Mnoolnk smoking statusNeverExec[facility] of [facility] start: 03-27-2023 End: 36-17-0849Hkf Assigned At BirthMaleExec[facility] of [facility] start: 12-28-2018 End: 90-14-2655Jwvlvcu use and exposureSmokeless tobacco non-userMetroHealth Start: 12-28-2018 End: 66-95-6968Ribwogd intakeEx-drinker (finding)[facility]HealthStart: 51-04-1719Zxk Assigned At BirthNot on fileMetroHealthStart: 92-14-2887Yab [facility]igned At [facility] Hospitaltart: 03-27-2023 End: 82-73-8916Dtgxxgn of Social functionMetroHealthWithin the last year, have you been afraid of your partner or ex-partner?NoMetroHealthDo you belong to any clubs or organizations such as advent groups, [employer], [employer] or athletic [employer], or school groups?YesMetroHealthAre you now , , , , never or living with a partner?MarriedMetroHealthDo you feel stress - tense, restless, nervous, or anxious, or unable to sleep at night because yourmind is troubled all the time - these days [OSQ]Not at all [facility](I/We) worried whether (my/our) food would run out before (I/we) got money to buy more.Never trueMetroHealthStart: 20-46-9342Cplczwonn72SkghbSiwzph Start: 08-09-2018 End: 73-81-6975GnqZgkd (finding)[facility]: 47-72-5474Ttgtseg of drug misuse behaviorHas never misused drugs (situation) MetroHealthTobacco smoking status NHISTobacco smoking consumption unknownNOMS Healthcare Functional Status AtezApsljjlxquDbkydaLusjjaks33-68-6489Xokdqxdhxz StatusN/AExec[facility]07-18-2023Functional StatusN/AExec[facility]03-30-2023Functional StatusN/A [facility] - [facility] HospitalVhgbrq10-08-5301Icgcgdgcng StatusN/AFtato-[facility] Clinical Notes 11-24-2021 to 05-07-2025 Note Date & BzhjWrkcWzuxatya08-54-5829 History of Present illness Narrative* Medina Thornton [...] come here orbital with Dr. Sanchez in [place] understandsthe risks and benefits of said [...] [3] No Known Allergies documented in this encounterDeaconess Incarnate Word Health SystemVqopmxdcis32-40-8960 Evaluation note* Diagnosis Onset Date Resolution Status Admit Date A-fib acuteAugust 2024 9:16amBilateral primary osteoarthritis of hipacuteAugust 2024 9:16amBilateral primary osteoarthritis of kneeacuteAugust 2024 9:16amLumbar painacuteAugust 2024 9:16amMedicare annual wellness visit, subsequentacuteAugust 2024 9:16amOSA on CPAPacuteAugust 2024 9:16am Degenerative joint disease (DJD) of hipacuteAugust 2024 10:28am [facility] Work Phone: 1(805) 399-115208-06-2025 Evaluation note* Diagnosis Onset Date Resolution Status Admit Date A-fib acuteAugust 2024 9:16amBilateral primary osteoarthritis of hipacuteAugust 2024 9:16amBilateral primary osteoarthritis of kneeacuteAugust 2024 9:16amLumbar painacuteAugust 2024 9:16amMedicare annual wellness visit, subsequentacuteAugust 2024 9:16amOSA on CPAPacuteAugust 2024 9:16am Degenerative joint disease (DJD) of hipacuteAugust 2024 10:28am Degenerative joint disease (DJD) of hipacuteOctober 2024 10:50am [facility] Work Phone: 1(378) 710-723610-30-2024 Evaluation note* Diagnosis Onset Date Resolution Status Admit Date Bronchitis acuteOctober 2023 9:18amCoughnoneactiveNovember 2023 9:07am [facility] Work Phone: 1([phone]) 292-321110-07-2024 History of Present illness Narrative* Prasanth Perez [...] his last visit, he had lexiscan at [facility] on 09/2016 that showe no reversible [...] in 1 year Prior to your visit, [facility] shared information with you about the [...] 180 Tablet 3 Sodium Sulfate-Mag Sulfate-KCl (Sutab) 4001-058-774 MG TABS Take by mouth. AMLODIPINE BESYLATE [...] declined Stress: No Stress Concern Present (03/27/2023) [employer] - Occupational Stress Questionnaire [...] family history on file. documented in this [id number] Hospital Discharge instructions Patient Education 01/23/2024 14:28:31 [...] Follow these instructions at home: Medicines Take divt-bxm-vrizimo and prescription medicines only as told by [...] provider. Document Revised: 09/22/2021 Document Reviewed: 09/22/2021 [employer] Patient Education 2022 [employer]. Follow Up Care 01/24/2023 10:37:20 With:CATHIE HERNANDEZ PA-C, URL Address: [address] [place] [address] [phone] When: only if needed [facility] 07-16-2024 NotePatient Education Urology Erectile [...] these instructions at home: Medicines ? Take vwoy-jti-sdkaahp and prescription medicines only as told by [...] nicotine or tobacco. These (more content not included)...[facility]01[facility]04-[facility] Evaluation note* Encounter Date Diagnosis Assessment Notes Treatment Notes Treatment Clinical Notes Jul, Obstructive sleep apnea (ICD-10 - G47.33) Clinical signs which suggest the need for pressure adjustment were reviewed. He is compliant and faithful w using the device. Jul,Unspecified atrial fibrillation (ICD-10 - I48.91)>15 min spent in discussion/decision making.Continue followup w cardiology Jul,Essential hypertension (ICD-10 - I10)as above [employer] Other 09-20-2023 History of Present illness Narrative* [...] male with PMH of atrial fibrillation, HTN, tonal regulator anticoagulation, JAVED,chronic back pain, arthritis, who was seen today for pAF. Last televisit- 08/2020- He had to ER on 05/22/20 when he had pain with a blood clot- needing to stop his coumadin for a short period of time. He felt like he has been in sinus rhythm on his self checks. He was on Qsgldlclka566 mg BID and Lopressor 100 mg BID. Since patient last saw me, he had TURP done- no further hematuria or urgency. PSA has been stable. Colonoscopy was normal per patient. No melena etc. ALLERGIES: Allergies Allergen Reactions Other (Review Comments!) MEDICATIONS: Current Outpatient Medications Medication Sig Dispense Refill Sodium Sulfate-Mag Sulfate-KCl (Sutab) 0687-355-201 MG TABS Take by mouth. AMLODIPINE BESYLATE [...] refused Stress: No Stress Concern Present (03/27/2023) [employer] - Occupational Stress Questionnaire [...] Assessment/Plan: Persistent atrial fibrillation (HCC) (Primary Diagnosis) [726528] Anticoagulated [759053] JAVED on CPAP [420052] Patient doing well overall as far as [...] Electrophysiology 03/29/23 4:52 PM documented in this [id number] Telephone encounter Note* Telephone Encounter - Crystal Putnam RN - 02/17/2023 9:17 AM EDT LVM for pt that new generic Rx (Toprol XL) was sent over to [facility]. [id number] Miscellaneous Notes* Telephone Encounter - Crystal Putnam [...] only cover the generic brand. Please contact [employer].[phone] use Re:[phone]. Thank you documented in this [id number] Telephone encounter Note* Telephone Encounter - Aundrea Davis PharmD - 02/16/2023 3:00 PM EDT Patient called stating the original prescription that was sent had a KP for Toprol XL 100mg which is not covered. Please send over generic Metoprolol ER Succinate 100mg. Thank you! [id number] Miscellaneous Notes* Telephone Encounter - Aundrea Davis PharmD - 02/16/2023 3:00 PM EDT Patient called stating the original prescription that was sent had a KP for Toprol XL 100mg which is not covered. Please send over generic Metoprolol ER Succinate 100mg. Thank you! documented in this [id number] Telephone encounter Note* Telephone Encounter - Dexter Heather Norberto - 02/16/2023 9:38 AM EDT [facility] wanting to know if they can dispense Metoprolol SUCC- ER 100 mg instead ofthe Toprol XL 100 mg, pt's insurance will only cover the generic brand. Please contact [phone] use Re:[phone]. Thank you [employer] Work Phone: [phone]) 606-185207-18-2023 Hospital Discharge instructions Patient Education 01/24/2023 10:34:12 [...] Follow these instructions at home: Medicines Take fmvk-qfa-cirohlq and prescription medicines only as told by [...] provider. Document Revised: 09/22/2021 Document Reviewed: 09/22/2021 MyDocTime Patient Education 2022 [employer]. Follow Up Care 10/27/2021 12:15:55 With:TIANA GARCIA, CATHIE Ruano, URL Address: [address] [place] [address] [place] [address] When:Within 1 Year(s) [facility] 04-04-2023 Evaluation note* Encounter Date [...] - I48.91)stable. continue w present meds and supervisor sunglasses. [employer] Other 03-30-2023 Evaluation + Plan noteExtracted from:Title: KRISSY post opAuthor:Daljit Gooden MDDate:10/06/22 Plan Transfer/Discharge: Transfer/Discharge Discharge when meets criteria ( To home ). Extracted from:Title:KRISSY GAAuthor:Daljit Gooden MDDate:10/06/22 Plan [place] [employer]esthesiologists (ASA) physical status classification: Class III. Anesthetic Preoperative Plan: Anesthesia General. Future Appointments Appointment Date:01/25/2023 10:00:00 AM Scheduled Provider:Erica Chua MD Location:[facility] Appointment Type:URO Office Visit [facility]03-30-2023 Hospital Discharge instructions Patient Education 10/06/2022 [...] 03/22/2005 Document Revised: 10/11/2018 Document Reviewed: 10/11/2018 MyDocTime Patient Education 2020 [employer]. 10/06/2022 10:00:07 Hemorrhoids, Feqj-xf-Ouvo Hemorrhoids Hemorrhoids are swollen veins that may [...] 3 times a day. General instructions Take qkbv-dwl-pkasnib and prescription medicines only as told by [...] 04/04/2009 Document Revised: 07/04/2019 Document Reviewed: 11/15/2018 My[employer] Patient Education 2020 [employer]. Follow Up Care 07/29/2022 15:02:48 With:Oxana IBARRA Address: [address] [place] [address] Business (1) When: Unknown Comments:Call for any problems. [facility]01-20-2023 Hospital Discharge instructions Patient Education 07/29/2022 [...] including vitamins, herbs, eye drops, creams, and hpik-ryv-knidkgt medicines. Any problems you or family members [...] 06/23/2001 Document Revised: 04/18/2018 Document Reviewed: 09/06/2016 MyDocTime Patient Education [employer]. Follow Up Care 07/05/2022 09:47:30 With:Elicia Mcmillan CNP Address: When:1 to 2 weeks Comments:Following colonoscopy. [facility] 01-17-2023 Evaluation note* Encounter [...] way. Continue follow-up with cardiology as scheduled. [employer] Other 01-11-2023 NoteCONSULTATION CONSULTATION DATE: 07/20/2022 HISTORY [...] in three months' time unless otherwise indicated.[facility] 07-20-2022 NoteCONSULTATION PROCEDURE DATE: 07/20/2022 [...] fan-like pattern. Patient tolerated the procedure well.[facility] [id number] NotePAIN MANAGEMENT CONSULTATION CONSULTATION DATE: 05/26/2022 HISTORY [...] post procedure, and he wishes to proceed.[facility] CenterJqqjolou87-23-1351 NoteCONSULTATION CONSULTATION DATE: 04/07/2022 HISTORY OF PRESENT [...] which is aggravated by prolonged standing and communication spec hours. He states that such activity has [...] for re-evaluation. Patient agrees to this plan.[facility] [id number] NoteCONSULTATION CONSULTATION DATE: 03/03/2022 This is a 15-vgav-scamcxood returning to clinic for a 3-month follow-up. [...] be followed up in the office following.[facility] [id number] Telephone encounter Note* Telephone Encounter - Erica Beckett - 03/01/2022 11:40 AM EDT Patient has not been seen by this specialist in more than 1 year. Please contact patient to schedule office visit. Thank you [id number] Miscellaneous Notes* Telephone Encounter - Erica Beckett - 03/01/2022 11:40 AM EDT Patient has not been seen by this specialist in more than 1 year. Please contact patient to schedule office visit. Thank you documented in this [id number] Telephone encounter Note* Telephone Encounter - Irina Nguyen - 01/18/2022 7:23 AM EDT Last visit with Cardiology (Emperatriz Carnes) on 09/03/2020 Requested Prescriptions Pending Prescriptions Disp Refills metoprolol (TOPROL-XL) 100 mg XL tablet [Pharmacy Med Name: METOPROLOL SUCCINATE ER TABS 100MG] 90 Tablet 3 Sig: TAKE 1 TABLET DAILY No PCP on file No PCP on file [id number] Miscellaneous Notes* Telephone Encounter - Irina Nguyen - 01/18/2022 7:23 AM EDT Last visit with Cardiology (Emperatriz Carnes) on 09/03/2020 Requested Prescriptions Pending Prescriptions Disp Refills metoprolol (TOPROL-XL) 100 mg XL tablet [Pharmacy Med Name: METOPROLOL SUCCINATE ER TABS 100MG] 90 Tablet 3 Sig: TAKE 1 TABLET DAILY No PCP on file No PCP on file documented in this [id number] Telephone encounter Note* Telephone Encounter - Anirudh Gonzalez RPh - 11/29/2021 3:11 PM EDT Pt called back, will talk to his [facility] to get refill [facility] Work Phone: [phone] Miscellaneous Notes* Telephone Encounter - Anirudh Gonzalez RPh - 11/29/2021 3:11 PM EDT Pt called back, will talk to his [facility] to get refill * Telephone Encounter - Asia Laguna RN - 11/29/2021 2:52 PM EDT Left message for pt to return call to ACC at [phone] 2nd attempt * Telephone Encounter - Cathie Whitley RN - 11/26/2021 2:46 PM EDT Left message for patient to please call back. 1st attempt * Telephone Encounter - Anirudh Gonzalez RPh - 11/25/2021 9:37 AM EDT [facility] Staff, Please contact pt re the following issue. Per 09/03/21 note pt goes to [facility] , they should refill, will deny Thanks! * Telephone Encounter - Tamiko Rodriguez PharmD - 11/24/2021 4:09 PM EDT Requested Prescriptions Pending Prescriptions Disp Refills warfarin (COUMADIN) 5 MG tablet 90 Tablet 0 Sig: Take 1 Tablet by mouth daily. No PCP on file No PCP on file documented in this [id number] Telephone encounter Note* Telephone Encounter - Asia Laguna RN - 11/29/2021 2:52 PM EDT Left message for pt to return call to [facility] at [phone] 2nd attempt [employer] Work Phone: [phone] 419-649805-20-2022 Telephone encounter Note* Telephone Encounter - Cathie Whitley RN - 11/26/2021 2:46 PM EDT Left message for patient to please call back. 1st attempt [id number] Telephone encounter Note* Telephone Encounter - Anirudh Gonzalez RPh - 11/25/2021 9:37 AM EDT [facility] Staff, Please contact pt re the following issue. Per 09/03/21 note [facility] , they should refill, will deny Thanks! [id number] Telephone encounter Note* Telephone Encounter - Tamiko Rodriguez PharmD - 11/24/2021 4:09 PM EDT Requested Prescriptions Pending Prescriptions Disp Refills warfarin (COUMADIN) 5 MG tablet 90 Tablet 0 Sig: Take 1 Tablet by mouth daily. No PCP on file No PCP on file [facility] Work Phone: 1(880) 913-460705-18-2022 Miscellaneous Notes* Telephone Encounter - Tamiko Rodriguez [...] [Pharmacy Med Name: POTASSIUM CHLORIDE ER (DISP) [id number]] 180 Tablet 3 Sig: TAKE 1 TABLET TWICE A DAY Refused Prescriptions Disp Refills warfarin (COUMADIN) 5 MG tablet [Pharmacy Med Name: WARFARIN TABS 5MG] 90 Tablet 3 Sig: TAKE 1 TABLET DAILY (INR: 2.33) No PCP on file No PCP on file documented in this encounterMetroHealthEvaluation + Plan note Future Appointments Appointment Date:11/01/2022 09:45:00 AM Scheduled Provider:Min Tristan Jr., MD Location:[facility] Appointment Type:URO Office Visit Diagnostic Tests Pending * PSA Total 10/27/21 [facility] evaluation + Plan note Future Appointments Appointment Date:10/06/2022 09:00:00 AM Scheduled Provider: Location:[facility] Appointment Type:Surgery FT Appointment Date:11/01/2022 09:45:00 AM Scheduled Provider:Min Tristan Jr., MD Location:[facility] Appointment Type:URO Office Visit [facility] Evaluation + Plan note Future Appointments Appointment Date:01/30/2024 10:00:00 AM Scheduled Provider:CATHIE HERNANDEZ PA-C Location:[facility] Appointment Type:URO Office Visit [facility] evaluation + Plan note Future Appointments Appointment Date:01/30/2024 10:00:00 AM Scheduled Provider:CATHIE HERNANDEZ PA-C Location:[facility] Appointment Type:URO Office Visit Diagnostic Tests Pending * Urine Culture [facility] Diagnosis PAF (paroxysmal atrial fibrillation) [...] present documented in this encounter [facility] noteNo [facility] [employer] Other Evaluation note* Diagnosis Persistent atrial fibrillation [...] in this encounter [facility]HealthEvaluation noteNo assessment information availableAdena [facility] Work Phone: Evaluation note* Diagnosis [...] Diagnosis Onset Date Resolution Status Bronchitis acute [facility] Work Phone: Evaluation note* Diagnosis Onset Date Resolution Status Admit Date A-fib acuteAugust 2024 9:16amBilateral primary osteoarthritis of hipacuteAugust 2024 9:16amBilateral primary osteoarthritis of kneeacuteAugust 2024 9:16amLumbar painacuteAugust 2024 9:16amMedicare annual wellness visit, subsequentacuteAugust 2024 9:16amOSA on CPAPacuteAugust 2024 9:16am [facility] Work Phone: Evaluation note* Diagnosis [...] pilonidal cyst removalHospitalization HistoryNo Hospitalization history information [employer] Other Hospital course Narrative No data available for this section [facility] Hospital Discharge instructions No data available for this section [facility] Hospital Discharge instructionsAmbulatory Orders* Referral to Orthopedic Surgery Location: None [facility] Work Phone: Progress note No data available for this section [facility] Reason for referral (narrative)No reason for referral information availableAdena [facility] Center Work Phone: Summary Purpose Family History Relationship [...] 2025 9:1 6am Medicare annual wellness visit, [facility] [place] nt February 12, 2025 9:16am JAVED on [...] 2025 9:1 6am Medicare annual wellness visit, [facility] February 12, 2025 9:16am JAVED on [...] and content) DATE CREATED AUTHOR 01/02/2018 [facility] DATE CREATED AUTHOR AUTHOR'S ORGANIZ ATION 04/24/2018 [employer] DATE CREATED AUTHOR AUTHOR'S ORGANIZ ATION 05/06/2018 [facility] DATE CREATED AUTHOR AUTHOR'S ORGANIZ ATION 12/16/2022 [facility] DATE CREATED AUTHOR AUTHOR'S ORGANIZ ATION 01/25/2024 [facility] DATE CREATED AUTHOR AUTHOR'S ORGANIZ ATION 04/15/2024 [facility] DATE CREATED AUTHOR AUTHOR'S ORGANIZ ATION 05/28/2024 [facility] DATE CREATED AUTHOR AUTHOR'S ORGANIZ ATION 05/03/2025 [facility] DATE CREATED AUTHOR AUTHOR'S ORGANIZ ATION 05/11/2025 [facility] EPIC Reason for Visit (unrecogniz ed section and content) ReasonCommentsRefillReasonOnset GgnzVtlaqheyVucqiv26/18/2022ReasonOnset Date FnnwlakmClattn39/08/2023ReasonOnset DateCommentsQuestion about medication 02/16/2023ReasonOnset SgcuGjnkzkdvAcyqqb57/10/2023ReasonCommentsAtrial fibrillation/flutterReasonCommentsNew patient, to establish relationshipReason Onset LytsZjknkhiqQcawbn89/30/2025ReasonOnset XhshKkeveafmJninco57/24/2025Reason CommentsPain Care Teams (unrecognized sec tion and content) Team MemberRelationshipSpecialtyStart DateEnd Date Emperatriz Carnes, [address] [place] [address] QmkbonzxrJmrdrvxcbgmlcfjkq71/12/27Team MemberRelationshipSpecialtyStart DateEnd Date Emperatriz Carnes, DO [address] [place] [address] WrdptvypdGzphpijnivphewgxr57Team MemberRelationshipSpecialtyStart DateEnd Date Emperatriz Carnes, DO [address] [place] [address] QlviwbsllDecsqwkxgsrhruyhf40Team MemberRelationshipSpecialtyStart DateEnd Date Emperatriz Carnes, DO [address] [place] [address] MmvimbdysMymjmflqpfcpmltmb18Team MemberRelationshipSpecialtyStart DateEnd Date Emperatriz Carnes, DO [address] [place] [address] EpiyjpfliChbbmkdzexiboqlsc23Team MemberRelationshipSpecialtyStart DateEnd Date Deyvi Emperatriz, DO [address] [place] [address] IavztpmkkMtukwdmsxtufisigb08/20Team MemberRelationshipSpecialtyStart DateEnd Date Deyvi Emperatriz, DO [address] [place] [address] WguxwiwbbPgxmdwyxjcixwimwy00/20Team MemberRelationshipSpecialtyStart DateEnd Date Emperatriz Carnes, DO [address] [place] [address] DbaszcbuvEihpoxmdzfpldxctp34/6/20Team MemberRelationshipSpecialtyStart DateEnd Date Emperatriz Carnes DO [address] [place] [address] SbjmjurebEgwqzswwkatzmemiv22/6/20 Team Status: Active Member Role Status Dates [...] MemberRelationshipSpecialtyStart DateEnd Date Emperatriz Carnes DO [address] [place] [address] XyohqiumvRdbgmyefxbfwaxmjs51/6/20Team MemberRelationshipSpecialtyStart DateEnd Date Emperatriz Carnes DO [address] [facility] [place] [address] FwbkmwgwxOvnjmsitpwbouovte26/6/20 Team Status: Active Member Role Status Dates [...] MemberRelationshipSpecialtyStart DateEnd Date Emperatriz Carnes DO [address] [place] [address] UpxfkzrnqAagqzrcgfdbehrgpx48/6/20 Prasanth Perez MD [address] [place] [address] PhysicianCardiac Ruenemcdptqzqctjo72/2/24Team MemberRelationshipSpecialtyStart DateEnd Date Deyvi Emperatriz, [address] [place] [address] CymmxbpfnSpqmnkpjbajfuuuvn85/6/20 Prasanth Perez MD [address] [place] [address] PhysicianCardiac Ichfnnzyouuzgvklx68/2/24 Team Status: Active Member Role Status Dates [...] 2025Team MemberRelationshipSpecialtyStart DateEnd Date Deyvi Emperatriz [address] [facility] [place] [address] RlqgfvipcVsgxkbvjpxlgofoww27/6/20 Prasanth Perez MD [address] [facility] [place] [address] PhysicianCardiac Cvdgkjlqxuwxzrmec77/2/24 Team Status: Active Member Role/Relationship Status Dates [...] DateEnd Date Donald Lizarraga MD [address] [place] [id number] PCP - GeneralFamily Kiikjzef50/29/25Team MemberRelationshipSpecialtyStart Date End Date Donald Lizarraga MD [address] [place] [id number] PCP - GeneralFamily Vhelhaqf95/29/25 Goals (unrecognized section and content) Goals may [...] BE BASED ON THE PRIMARY CLINICAL RECORDS. [facility]. provides no warranty or guarantee of the accuracy or completeness of information in this document.
--- NOTE | 2025-06-18 10:13 | PM.CN ---
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 Pain today in right hip 8/10 stabbing intense pain increasing with standing, walking, lifting, housework, activity, ADLs. denies falls/injury, does utilize cane. Pt pending right hip replacement with orthopedics August 2025. recently underwent right hip injection with minimal relief, noting 20% improvement in overall pain and activity. cc:: CC: Trista Lyman NP Review of Systems ROS Musculoskeletal Reports: joint pain PFSH PFS Medical History Atrial fibrillation ?I48.91 - Unspecified atrial fibrillation (ICD-10) Low back pain ?M54.50 - Low back pain, unspecified (ICD-10) Osteoarthritis ?M19.90 - Unspecified osteoarthritis, unspecified site (ICD-10) Colon cancer ?C18.9 - Malignant neoplasm of colon, unspecified (ICD-10) Obesity ?E66.9 - Obesity, unspecified (ICD-10) Kidney stone ?N20.0 - Calculus of kidney (ICD-10) Enlarged prostate ?N40.0 - Benign prostatic hyperplasia without lower urinary tract symptoms (ICD-10) Pulmonary embolism ?I26.99 - Other pulmonary embolism without acute cor pulmonale (ICD-10) Sleep apnea ?G47.30 - Sleep apnea, unspecified (ICD-10) High cholesterol ?E78.00 - Pure hypercholesterolemia, unspecified (ICD-10) Hypertension ?I10 - Essential (primary) hypertension (ICD-10) Surgical History S/P TURP ?Z90.79 - Acquired absence of other genital organ(s) (ICD-10) History of colon resection ?Z90.49 - Acquired absence of other specified parts of digestive tract (ICD-10) Social History Little interest or pleasure in doing things: not at all Feeling down, depressed, or hopeless: not at all Meds Home Medications and Allergies Home Medications ?Medication ?Instructions ?Recorded ?Confirmed ?Type atorvastatin 20 mg tablet 20 mg PO QDAY 12/22/22 06/02/25 History calcium carbonate 300 mg PO DAILY 12/22/22 06/02/25 History flecainide 100 mg tablet 100 mg PO Q12H 12/22/22 06/02/25 History hydrochlorothiazide 25 mg tablet 25 mg PO QDAY 12/22/22 06/02/25 History lisinopril 40 mg tablet 40 mg PO QDAY 12/22/22 06/02/25 History loratadine 10 mg tablet 10 mg PO DAILY 12/22/22 06/02/25 History metoprolol succinate 100 mg 100 mg PO QDAY 12/22/22 06/02/25 History tablet,extended release 24 hr multivitamin 1 tab PO DAILY 12/22/22 06/02/25 History potassium chloride 20 mEq 20 meq PO BID 12/22/22 06/02/25 History tablet,extended release(part/cryst) (Klor-Con M) warfarin 5 mg tablet 5 mg PO QDAY 12/22/22 06/02/25 History gabapentin 300 mg capsule 900 mg PO BID 01/17/24 06/02/25 History baclofen 10 mg tablet 10 mg PO TID PRN pain 06/25/24 06/02/25 History hydrocodone 7.5 mg-acetaminophen 1 tab PO BID PRN pain #60 tabs 05/13/25 06/02/25 Rx 325 mg tablet Allergies Allergy/AdvReac Type Severity Reaction Status Date / Time No Known Drug Allergies Allergy Verified 06/02/25 07:50 Exam Constitutional Documenting provider has reviewed patient's vital signs: yes Common normals: no apparent distress, oriented x3 and alert General appearance: cooperative HENMT Common normals: normocephalic, hearing grossly normal bilaterally and moist oral mucous membranes Head and scalp: normocephalic Eye Common normals: PERRL Pupil: PERRL Neck & C-Spine Common normals: full ROM General: normal visual inspection Chest Common normals: inspection of chest normal Respiratory Common normals: normal respiratory effort, no retractions and no use of accessory muscles Neuro Common normals: oriented x3 Sensorium/orientation: alert Psych Common normals: mental status grossly normal, thought process normal, cooperative, affect normal, speech normal and activity/motor behavior normal Speech: normal speech Thought process: normal thought process Results Additional Findings Additional findings: If on a controlled substance or opioids, I have checked an [place] report on this patient and there are no aberrancies noted in the prescribing history.??If on a controlled substance or opioid a drug screen was completed and reviewed within the last year, and if there has not been a drug screen completed we ordered one today to monitor higher risk, state monitored pain medication use. As part of providing excellent, safe, comprehensive care, the following was completed at our patient's visit: 1. A medication reconciliation and review to ensure accurate knowledge of current/active medications, including asking our patients to inform us about any [id number] medications or herbal remedies/nutritional supplements/alternative remedies. 2. A review to specifically ensure our patients have had annual screening for screening for depression, screening for tobacco use, and screening for unhealthy alcohol use. For concerning screenings had a discussion with the patient, provided patient education, and recommended follow-up with primary care provider when appropriate. If patient noted with a risk of falling, they received education on strength, gait, and balance training to prevent future risk of falling. Portions of this note may have been carried over from the previous visit and updated as appropriate. Please note this office utilizes paper charting in addition to the electronic medical record. A list of current medications, vitals, and PMH is available there as the clinical staff outside of myself do not have access to [facility] charting during the clinic day operations. As part of providing quality comprehensive care the current medications, vitals, and PMH were reviewed in the paper chart. Assessment and Plan Assessment and Plan (1) Osteoarthritis of right hip: Qualifiers: Osteoarthritis type: primary Qualified Code(s): M16.11 - Unilateral primary osteoarthritis, right hip (2) Chronic use of opiate drug for therapeutic purpose: (3) Lumbar radiculopathy: (4) Lumbar stenosis with neurogenic claudication: (5) Lumbar degenerative disc disease: Plan The patient has had over 3 months of moderate to severe low back and right hip pain with functional impairment and inadequate response to conservative care including NSAIDS (unless there are contraindication such as concurrent blood thinners), multiple oral or topical pain medications, and home exercise program/physical therapy.? Patient has completed >6 weeks of guided home exercise program and/or formal physical therapy program without relief of their symptoms.? The Oswestry Disability Index was completed, and the patient scored a 58%.? continue f/u with orthopedics as planned, pending right hip replacement august 2025 continue norco 7.5-325mg bid prn moderate to severe pain. noting moderate relief for 4-6 hours with norco 7.5-325mg bid prn, denies side effects. can utilize additional tylenol, not to exceed 3000mg daily combined with norco as previously discussed. continue gabapentin 900mg bid cannot take nsaids, on coumadin f/u 2 months, sooner if needed
== END 2025-06-18 10:00 | disposition home or self-care (01) ==
LOC: PM 09:59
PROVIDERS: PCP Family Medicine; Visit Provider Nurse Practitioner
DX: M16.11 Unilateral primary osteoarthritis, right hip (principal); Z79.891 Long term (current) use of opiate analgesic; M54.16 Radiculopathy, lumbar region; M48.062 Spinal stenosis, lumbar region with neurogenic claudication; M51.369 Other intervertebral disc degeneration, lumbar region without mention of lumbar back pain or lower extremity pain
CPT/HCPCS: G0463